=== PATIENT | female | born 1960 | race Caucasian/White ===

== ENCOUNTER 2016-07-03 17:37 | Emergency (ER) | payer OTHER ==
[~2016-07-03] VITALS: Wt 104.0 kg
[~2016-07-03 17:37] MED LIST: ERGO500014 PO; FURO80TA3 PO; GABA300C16 PO; HYDR-902 PO; INSU100C SQ; LANT3I SC; LOPE2CAP PO; ONDA4TAB14 PO; PANT20TA3 PO; SODI650T PO
[2016-07-03] MEDS ORDERED: HYDROmorphONE 1 MG/ML SYG IV STA (20:04)
[2016-07-03 20:43] LABS: ADD SCAN DIFF NO
[2016-07-03 20:46] LABS: BASOPHILS % 0.2 % (0.0-2.0); EOSINOPHILS # 0.2 10^3/ul (0.0-0.5); HEMATOCRIT 30.7 % (37.0-47.0); HEMOGLOBIN 10.2 g/dl (12.0-16.0); LYMPHOCYTES # 1.7 10^3/ul (0.8-2.9); MEAN CORPUSCULAR HEMOGLOBIN 33.9 pg (29.0-33.0); MEAN CORPUSCULAR HGB CONC 33.2 g/dl (32.0-37.0); MEAN PLATELET VOLUME 10.4 fl (7.4-10.4); MONOCYTE # 0.4 10^3/ul (0.3-0.9); MONOCYTES % 7.2 % (0.0-11.0); NEUTROPHIL # 3.4 10^3/ul (1.6-7.5); NEUTROPHILS % 58.4 % (39.0-77.0); PLATELET COUNT 231 10^3/UL (140-415); RED BLOOD COUNT 3.01 10^6/ul (4.20-5.40); RED CELL DISTRIBUTION WIDTH 14.5 % (11.5-14.5); WHITE BLOOD COUNT 5.7 10^3/ul (4.8-10.8)
[2016-07-03 20:56] LABS: POTASSIUM 4.7 mmol/L (3.5-5.1)
[2016-07-03 20:58] LABS: CREATININE 5.86 mg/dl (0.44-1.00)
[2016-07-03 20:59] LABS: CALCIUM 8.5 mg/dl (8.4-10.2)
[2016-07-03] MEDS ORDERED: ALPR0.254 PO (21:18)
[2016-07-03] MEDS ORDERED: ASPI-664 PO (21:18)
[2016-07-03] MEDS ORDERED: SEVE800T7 PO (21:18)
[2016-07-03] MEDS ORDERED: CALC0.255 PO (21:19)
[2016-07-03] MEDS ORDERED: AMLO-147 PO (21:19)
[2016-07-03] MEDS ORDERED: ATOR40TA68 PO (21:20)
[2016-07-03] MEDS ORDERED: OMEP20CA16 PO (21:20)
[2016-07-03] MEDS ORDERED: NAPR220C2 PO (21:21)
[2016-07-03] MEDS ORDERED: OMEG500C3 PO (21:22)
[2016-07-03 21:27] LABS: ADD UMIC YES; URINE BILIRUBIN (Dip) NEGATIVE (NEGATIVE); URINE BLOOD (Dip) 1+ (NEGATIVE); URINE COLOR LT. YELLOW (YELLOW); URINE KETONES (Dip) TRACE (NEGATIVE); URINE LEUKOCYTE ESTERASE (Dip) NEGATIVE (NEGATIVE); URINE NITRITE (Dip) NEGATIVE (NEGATIVE); URINE TOTAL PROTEIN (Dip) 4+ (NEGATIVE); URINE UROBILINOGEN (Dip) 0.2 E.U./dL (0.1-1.0)
[2016-07-03 21:37] LABS: BACTERIA,URINE RARE; SQUAMOUS EPITHELIAL CELL,UR RARE
[2016-07-03] MEDS ORDERED: OXYCODONE/ACETAMINOPHEN (10/325) TAB PO ONE (22:00)
--- NOTE | 2016-07-03 22:08 | RADRPT ---
PROCEDURE: CT thoracic spine without contrast. CLINICAL INDICATION: Severe low back pain with sciatica. TECHNIQUE: CT of the thoracic spine was performed. Axial images were obtained and reformatted at 2.5 mm slice thickness. Coronal and sagittal images were reformatted. Exam CTDIvol = 32.21 mGy and DLP = 1203.25 mGy-cm. COMPARISON: None available. FINDINGS: Vertebral bodies: Slight demineralization is concerning for osteopenia. There is minimal biconcave appearance of the T8 and T9 vertebral body suggesting chronic compression deformities, loss of axia l height estimated 10% without bone retropulsion. The thoracic kyphosis is preserved. No lytic or blastic lesions are present. Visualized cervical spine demonstrate severe degenerative disk disease and spondylosis at C5-6 and C6-7 Thoracic spinal cord: No abnormal densities seen within the spinal canal.. T1-2: No discogenic abnormality of significance is seen and there is no central canal or foraminal s tenosis. Mild left facet arthropathy is present the right facet joint is unremarkable. T2-3: No discogenic abnormality of significance is seen and there is no central canal or foraminal s tenosis. The facet joints are intact. T3-4: No discogenic abnormality of significance is seen and there is no central canal or foraminal stenosis. The facet joints are intact. T4-5: No discogenic abnormality of significance is seen. There is mild facet arthropathy with righ t-sided vacuum facet phenomenon but no central canal or foraminal stenosis. T5-6: No discogenic abnormality of significance is seen. There is moderate right greater than left facet arthropathy but no central canal or foraminal stenosis T6-7: No discogenic abnormality of significance is seen there is no central canal stenosis. Severe right and moderate left facet arthropathy is present. T7-8: No discogenic abnormality of significance is seen. There is moderate to severe bilateral facet arthropathy but no central canal or foraminal stenosis T8-9: Vacuum disk phenomenon without evidence of disk bulge or protrusion. Moderate to severe bilat eral facet arthropathy is present. There is no significant central canal or foraminal stenosis T9-10: Mild loss of disk stature without disk protrusion or bulge. Severe bilateral facet arthropa thy is present. There is no significant central canal or foraminal stenosis T10-11: No discogenic abnormality of significance is seen. There is moderate bilateral facet arthro geoffrey but no central canal or foraminal stenosis T11-12: Vacuum disk phenomenon with mild loss of disk stature and a broad-based disk larger than os teophyte complex of approximately 3 mm. There is minimal facet arthropathy but no central canal or foraminal stenosis T12-L1: No discogenic abnormality of significance is seen and there is no facet arthropathy, centra l canal or foraminal stenosis Non spine related findings: No abnormalities of significance are demonstrated. RPTAT:HJJR IMPRESSION: 1. Demineralization unable to exclude osteopenia. 2. Subtle biconcave appearance to T8 and T9 vertebral bodies suggests minimal chronic compression d eformities of 10% without bone retropulsion or compromise of the central canal. 3. Degenerative disk disease greatest at T11-12 with a small osteophyte and disk complex not causin g significant central canal stenosis. 4. No significant central stenosis is seen at any level. 5. Multilevel facet arthropathy most pronounced at T6-7. Physician Angelica Date Time Electronically viewed and signed by Physician Angelica on 07/03/2016 22:08 /
--- NOTE | 2016-07-03 22:17 | RADRPT ---
PROCEDURE: CT Lumbar Spine without contrast. CLINICAL INDICATION: Severe low back pain with sciatica. TECHNIQUE: CT of the lumbar spine without contrast was performed. Axial images were obtained thro [facility] the lumbar spine and reformatted at 2.5 mm slice thickness. Coronal and sagittal images were ref ormatted. The CTDIvol = 30.49 mGy and DLP = 1097.58 mGy-cm. COMPARISON: None available FINDINGS: Vertebral bodies: Demineralization is concerning for osteopenia. A mild dextroscoliosis of 10 degre es with the apex at L4 is noted. Spondylolytic grade 1 spondylolisthesis of 5 relative to S1 is pre sent. Conus medularis region: Normal in attenuation and termination estimated at the L1 level. L1-L2: No discogenic abnormality of significance is seen, mild anterior right spondylosis is present . There is no facet arthropathy. The ligamentum flava are normal in thickness. The central canal is patent. There is no evidence for foraminal stenosis. L2-L3: No discogenic abnormality of significance is seen, mild anterior spondylosis is present. Ther e is no facet arthropathy. The ligamentum flava are normal in thickness. The central canal is paten t. There is no evidence for foraminal stenosis. L3-L4: Vacuum disk phenomenon is present with moderate degenerative disk narrowing and a circumferen tial disk and osteophyte complex measuring up to 7 mm eccentric to the left and in a left lateral lo cation. Endplate degenerative subcortical cyst formation is demonstrated in the inferior L3 and supe rior L4 regions There is no facet arthropathy. Mild ligamentum flavum hypertrophy of 4 mm is present . The central canal is patent. Mild bilateral foraminal stenosis is seen. L4-L5: Vacuum disk phenomenon without loss of disk stature and 4 mm of annular disk bulging asymmetr ic to the left extending into the left foramen. There is associated lucency likely degenerative sub cortical cyst formation or possibly a Schmorl's nodes involving the superior left L5 greater than in ferior left L4 regions. There is mild bilateral facet arthropathy. The ligamentum flava are mildly i ncreased in thickness measuring 5 mm. The central canal is patent. The disk material causes severe left and moderate to severe right foraminal stenosis. L5-S1: Vacuum disk phenomenon with moderate to severe loss of disk stature and disk material extendi ng into the foramina bilaterally. L5 spondylolysis is present without pseudoarthrosis. There is min imal bilateral facet arthropathy. Mild 4 mm ligamentum flavum hypertrophy is identified. The centra l canal is patent. Disk material extends into the foramina causing severe bilateral foraminal steno sis. Sacrum and sacroiliac joints: Mild vacuum phenomenon of the right greater than left joints is presen t. Otherwise unremarkable. None spine related findings: Atherosclerotic calcification of the abdominal aorta is identified. RPTAT:HJJR IMPRESSION: 1. Spondylolysis at L5, pars interarticularis defects, with associated grade 1 anterolisthesis and degenerative disk disease contributing to severe bilateral foraminal stenosis without central canal narrowing. 2. Vacuum disk phenomenon with degenerative disk narrowing asymmetric to the left at L4-5, endplate degenerative changes likely subcortical cyst formation, with disk material causing severe left grea ter than right L4-5 foraminal stenosis without central canal narrowing. 3. Vacuum phenomenon and disk narrowing with asymmetric left osteophyte and disk complex at L3-4 ca using mild bilateral foraminal stenosis and with a left lateral L3-4 disk complex. There is no cent ral canal stenosis at this level. 4. Aortic atherosclerosis is present. Physician Angelica Date Time Electronically viewed and signed by Physician Angelica on 07/03/2016 22:17 /
[2016-07-03] MEDS ORDERED: OXYC-279 PO (22:57)
[2016-07-03] MEDS ORDERED: SILVER SULFADIAZINE 1% 25 GM CR TOP ONE (23:00)
--- NOTE | 2016-07-04 00:50 | ERD ---
ER Documentation Chief Complaint Date/Time DATE: 07/04/16 TIME: 00:44 Chief Complaint LEFT SIDE BUTTOCK PAIN AFTER A FALL 3 WKS. WORSE AT DIALYSIS TODAY. HPI 55-year-old female with a history of diabetes, chronic kidney disease on dialysis, and chronic low back pain presenting with worsening of her low back pain. She states that her pain has been worsening over the past 2 months but more significantly over the past week. She is seen by chronic pain physician but does not have an appointment until July 31. The medication that when she was given has not been helping her so she has not been taking it. She denies any recent trauma to me, however she did note in triage that she fell on her butt about 3 weeks ago. She endorses associated pain in her left buttock that radiates down the back of her left leg. She has no new numbness, tingling, or weakness. Her back pain is a 10 out of 10, stabbing. No change in urinary or bowel habits. She has difficulty walking secondary to the pain but is able to walk. ROS All systems reviewed and are negative except as per history of present illness. Medications Home Meds Active Scripts Oxycodone HCl/Acetaminophen (Percocet 5-325 mg Tablet) 1 Each Tablet, 1 EACH PO Q6 Y for SEVERE PAIN LEVEL 7-10, #15 TAB Prov:JAMES BURKETT MD 07/03/16 Reported Medications [place]-3 Fatty Acids (Fish Oil) Unknown Strength Capsule, 1 TAB PO DAILY, CAP 07/03/16 Naproxen* (Aleve*) 220 Mg Capsule, 220 MG PO NEEDED Y for PRN, #60 CAP 07/03/16 Omeprazole* (Omeprazole*) 20 Mg Capsule.dr, 20 MG PO DAILY, #30 CAP 07/03/16 Atorvastatin* (Atorvastatin*) 40 Mg Tablet, 40 MG PO QHS, #30 TAB 07/03/16 Calcitriol* (Rocaltrol*) 0.25 Mcg Capsule, 0.25 MCG PO DAILY, CAP 07/03/16 Amlodipine Besylate* (Amlodipine Besylate*) 10 Mg Tablet, 10 MG PO DAILY, #30 TAB 07/03/16 Aspirin* (Aspirin* EC) 81 Mg Tablet., 81 MG PO DAILY, TAB 07/03/16 Sevelamer Carbonate* (Renvela*) 800 Mg Tablet, 0.8 GM PO WITH MEALS, TAB 07/03/16 Alprazolam* (Alprazolam*) 0.25 Mg Tablet, 0.25 MG PO TID Y for ANXIETY, TAB 07/03/16 Discontinued Reported Medications Hydrocodone/Acetaminophen ([place] 10-325 Tablet) 1 Each Tablet, 1 EACH PO Q4 Y for PRN, TAB 12/27/15 Sodium Bicarbonate* (Sodium Bicarbonate*) 650 Mg Tablet, 1300 MG PO TID, TAB 12/27/15 Pantoprazole* (Pantoprazole*) 20 Mg Tablet.dr, 40 MG PO DAILY, TAB 12/27/15 Insulin Lispro (Humalog) 100 Unit/1 Ml Cartridge, 5 UNIT SQ BEFORE MEALS TID 12/27/15 Insulin Glargine* (Lantus*) 100 Unit/Ml Soln, 5 UNIT SC QHS, #1 VIAL 12/27/15 Gabapentin* (Gabapentin*) 300 Mg Capsule, 300 MG PO TID, #90 CAP 12/27/15 Furosemide* (Furosemide*) 80 Mg Tablet, 80 MG PO BID, #60 TAB 12/27/15 Ergocalciferol* (Drisdol* (Vitamin D2)) 50,000 Unit Capsule, 64197 UNIT PO Q7D, CAP 12/27/15 Discontinued Scripts Loperamide Hcl* (Imodium*) 2 Mg Capsule, 2 MG PO QID Y for DIARRHEA, #20 CAP MAX 16 mg/day Prov:BHAVNA GUZMAN MD 12/27/15 Ondansetron (Ondansetron Odt) 4 Mg Tab.rapdis, 4 MG PO Q6H Y for NAUSEA AND/OR VOMITING, #10 TAB Prov:BHAVNA GUZMAN MD 12/27/15 Allergies Allergies: Coded Allergies: No Known Allergies (Verified Allergy, Unknown, 07/03/16) PMhx/Soc History of Surgery: Yes (BYPASS LT LEG,RT TOES X 2 AMPUTATION,RT UPPER ARM SURGERY,RT OVARY REMOVED) Anesthesia Reaction: No Hx Neurological Disorder: No Hx Respiratory Disorders: No Hx Cardiac Disorders: Yes (HTN,PVD,ANEMIA) Hx Psychiatric Problems: Yes (DEPRESSION) Hx Miscellaneous Medical Probl: Yes (PERIPHERAL NEUROPATHY, PERMCATH PLACEMENT RT CHEST,KIRSTEN AVF PLACEMENT) Hx Alcohol Use: No Hx Substance Use: No Hx Tobacco Use: Yes (QUIT ) Smoking Status: Former smoker FmHx Family History: No diabetes Physical Exam Vitals Vital Signs Date Time Temp Pulse Resp B/P Pulse Ox O2 Delivery O2 Flow Rate FiO2 07/03/16 17:55 97.0 76 18 206/89 96 Physical Exam Const: Appears to be in distress secondary to pain, tearful, nontoxic Head: Atraumatic Eyes: Normal Conjunctiva ENT: Normal External Ears, Nose and Mouth. Neck: Full range of motion. No C-spine tenderness to palpation. No meningismus. Resp: Clear to auscultation bilaterally Cardio: Regular rate and rhythm, no murmurs Abd: Soft, non tender, non distended. Normal bowel sounds Skin: No petechiae or rashes Back: No thoracic spine tenderness, lumbar spine tender to palpation diffusely in the midline, with some left paraspinal muscle tenderness and left buttock tenderness. Positive straight leg raise on the left. Ext: No cyanosis, or edema Neur: Awake and alert and oriented 3, strength intact in all 4 extremities, sensations diminished in bilateral feet, chronic for the patient Psych: Normal Mood and Affect Result Diagram: 07/03/16203907/03/162039 Results 24 hrs Laboratory Tests Test 07/03/16 20:40 07/03/16 21:10 White Blood Count 5.710^3/ul Red Blood Count 3.0110^6/ul Hemoglobin 10.2g/dl Hematocrit 30.7% Mean Corpuscular Volume 102.0fl Mean Corpuscular Hemoglobin 33.9pg Mean Corpuscular Hemoglobin Concent 33.2g/dl Red Cell Distribution Width 14.5% Platelet Count 11000^3/UL Mean Platelet Volume 10.4fl Neutrophils % 58.4% Lymphocytes % 30.0% Monocytes % 7.2% Eosinophils % 4.0% Basophils % 0.2% Nucleated Red Blood Cells % 0.0/100WBC Neutrophils # 3.410^3/ul Lymphocytes # 1.710^3/ul Monocytes # 0.410^3/ul Eosinophils # 0.210^3/ul Basophils # 0.010^3/ul Nucleated Red Blood Cells # 0.010^3/ul Sodium Level 140mmol/L Potassium Level 4.7mmol/L Chloride Level 105mmol/L Carbon Dioxide Level 24mmol/L Anion Gap 16 Blood Urea Nitrogen 43mg/dl Creatinine 5.86mg/dl Glucose Level 265mg/dl Calcium Level 8.5mg/dl Lipase 307U/L Urine Color LT. YELLOW Urine Clarity CLEAR Urine pH 7.5 Urine Specific [place] 1.015 Urine Ketones TRACE Urine Nitrite NEGATIVE Urine Bilirubin NEGATIVE Urine Urobilinogen 0.2 E.U./dL Urine Leukocyte Esterase NEGATIVE Urine Microscopic RBC 2-5/HPF Urine Microscopic WBC 0-2/HPF Urine Squamous Epithelial Cells RARE Urine Bacteria RARE Urine Hemoglobin 1+ Urine Glucose 0.5%% Urine Total Protein 4+ Current Medications Medications (Trade) Dose Ordered Sig/Kayla Route PRN Reason Start Time Stop Time Status Last Admin Dose Admin Hydromorphone HCl (Dilaudid) 1 mg ONCE STAT IV 07/03/16 20:04 07/03/16 20:06 DC 07/03/16 20:26 Oxycodone/ Acetaminophen (Endocet (10/ 325)) 1 tab ONCE ONCE PO 07/03/16 22:00 07/03/16 22:01 DC 07/03/16 22:05 Silver Sulfadiazine (Thermazene 1% 25 Gm) 1 applic ONCE ONCE TOP 07/03/16 23:00 07/03/16 23:01 DC Procedures/MDM EMERGENT LABS AND DIAGNOSTIC STUDIES: Lab Results above were reviewed and interpreted by me. CBC shows anemia CMP is consistent with her CKD and hyperglycemia consistent with her diabetes Urinalysis did not show acute infection Radiology Results as interpreted by Radiology below were reviewed by Aneesh Burkett MD: CT thoracic and lumbar spine: IMPRESSION: 1. Demineralization unable to exclude osteopenia. 2. Subtle biconcave appearance to T8 and T9 vertebral bodies suggests minimal chronic compression deformities of 10% without bone retropulsion or compromise of the central canal. 3. Degenerative disk disease greatest at T11-12 with a small osteophyte and disk complex not causing significant central canal stenosis. 4. No significant central stenosis is seen at any level. 5. Multilevel facet arthropathy most pronounced at T6-7. IMPRESSION: 1. Spondylolysis at L5, pars interarticularis defects, with associated grade 1 anterolisthesis and degenerative disk disease contributing to severe bilateral foraminal stenosis without central canal narrowing. 2. Vacuum disk phenomenon with degenerative disk narrowing asymmetric to the left at L4-5, endplate degenerative changes likely subcortical cyst formation, with disk material causing severe left greater than right L4-5 foraminal stenosis without central canal narrowing. 3. Vacuum phenomenon and disk narrowing with asymmetric left osteophyte and disk complex at L3-4 causing mild bilateral foraminal stenosis and with a left lateral L3-4 disk complex. There is no central canal stenosis at this level. 4. Aortic atherosclerosis is present. Physician Angelica Date Time Electronically viewed and signed by Physician Angelica on 07/03/2016 22:17 Initial Nursing notes reviewed. Previous Medical Records requested via the Electronic Health Record. EMERGENCY DEPARTMENT COURSE / MEDICAL DECISION MAKING: The patient is presenting with acute on chronic low back pain with left sciatica. Vitals are notable for uncontrolled hypertension, however there does not appear to be any evidence of hypertensive emergency. Dilaudid IV was given for pain with some relief of her symptoms to a tolerable level. A CT of the thoracic and lumbar spine were done to evaluate for any acute fractures and did not show any acute abnormalities. Her CT did show multilevel lumbar degenerative disc disease, which I discussed with the patient. I agreed to discharge her with a few days worth of Percocet, however I told her that she needs to follow-up with her pain management doctor for any further prescriptions. The patient was able to ambulate with her walker with no difficulty. Her pain was so present but controlled. Patient was discharged in a stable condition. The patient was counseled about the risks of hypertension and urged to pursue outpatient monitoring and therapy within a week with their primary care physician. Departure Diagnosis: Primary Impression: Acute exacerbation of chronic low back pain Additional Impressions: Lumbar degenerative disc disease Sciatica Laterality: left Qualified Code: M54.32 - Sciatica of left side Condition: Stable Patient Instructions: Chronic Pain, Back Pain W/ Sciatica JAMES BURKETT MD Jul 04, 2016 00:50
== END 2016-07-03 23:47 | disposition home or self-care (01) ==
LOC: E/R 17:37
DX: J45.901 Unspecified asthma with (acute) exacerbation (principal); M51.36 Other intervertebral disc degeneration, lumbar region; M54.32 Sciatica, left side; I12.0 Hypertensive chronic kidney disease with stage 5 chronic kidney disease or end stage renal disease; N18.6 End stage renal disease; E11.9 Type 2 diabetes mellitus without complications; W19.XXXA Unspecified fall, initial encounter; Z99.2 Dependence on renal dialysis; Z87.891 Personal history of nicotine dependence; Z79.82 Long term (current) use of aspirin; Z79.4 Long term (current) use of insulin
CPT/HCPCS: 72128; 72131; 80048; 81001; 81003; 83690; 85025; J1170; Z7610; 96374

== ENCOUNTER 2016-10-25 21:05 | Emergency (ER) | payer OTHER ==
[~2016-10-25] VITALS: Ht 167.6 cm; Wt 105.0 kg
[~2016-10-25 21:05] MED LIST changes: +ALPR0.254 PO; +AMLO-147 PO; +ASPI-664 PO; +ATOR40TA68 PO; +CALC0.255 PO; -ERGO500014 PO; -FURO80TA3 PO; -GABA300C16 PO; -HYDR-902 PO; -INSU100C SQ; -LANT3I SC; -LOPE2CAP PO; +NAPR220C2 PO; +OMEG500C3 PO; +OMEP20CA16 PO; -ONDA4TAB14 PO; +OXYC-279 PO; -PANT20TA3 PO; +SEVE800T7 PO; -SODI650T PO
[2016-10-25 21:10] VITALS: Ht 167.6 cm; Wt 105.0 kg
[2016-10-25] MEDS ORDERED: HYDROmorphONE 1 MG/ML SYG IV STA (21:22)
[2016-10-25] MEDS ORDERED: CEFEPIME 2GM/50 ML (PMX) 50 ML IVPB STA (21:22)
[2016-10-25] MEDS ORDERED: ONDANSETRON 4 MG INJ IV STA (21:22)
[2016-10-25] MEDS ORDERED: ACETAMINOPHEN 325 MG TAB PO STA (21:22)
[2016-10-25] MEDS ORDERED: SOD CHLORIDE 0.9% 1,000 ML IV STA (21:22)
[2016-10-25] MEDS ORDERED: VANCOMYCIN 1 GM (PMX) 250 ML IVPB ONE (21:30)
[2016-10-25 22:08] LABS: ABNORMAL IP MESSAGE 1; BASOPHILS % 0.4 % (0.0-2.0); EOSINOPHILS # 0.1 10^3/ul (0.0-0.5); EOSINOPHILS % 2.3 % (0.0-7.0); HEMATOCRIT 27.5 % (37.0-47.0); HEMOGLOBIN 8.8 g/dl (12.0-16.0); LYMPHOCYTES # 0.6 10^3/ul (0.8-2.9); LYMPHOCYTES % 12.2 % (15.0-51.0); MEAN CORPUSCULAR HEMOGLOBIN 32.4 pg (29.0-33.0); MEAN CORPUSCULAR VOLUME 101.1 fl (82.0-101.0); MEAN PLATELET VOLUME 11.3 fl (7.4-10.4); MONOCYTE # 0.5 10^3/ul (0.3-0.9); MONOCYTES % 9.3 % (0.0-11.0); NEUTROPHIL # 3.7 10^3/ul (1.6-7.5); NEUTROPHILS % 75.6 % (39.0-77.0); PLATELET COUNT 180 10^3/UL (140-415); RED BLOOD COUNT 2.72 10^6/ul (4.20-5.40); RED CELL DISTRIBUTION WIDTH 13.4 % (11.5-14.5); WHITE BLOOD COUNT 4.9 10^3/ul (4.8-10.8)
[2016-10-25 22:13] LABS: POSITIVE DIFF @See below
[2016-10-25 22:30] LABS: ALANINE AMINOTRANSFERASE 36 IU/L (13-69); ALBUMIN 3.5 g/dl (3.3-4.9); ALBUMIN/GLOBULIN RATIO 1.34; ALKALINE PHOSPHATASE 115 IU/L (42-121); ANION GAP 13 (8-16); ASPARTATE AMINO TRANSFERASE 22 IU/L (15-46); BILIRUBIN,INDIRECT 0.2 mg/dl (0-1.1); BILIRUBIN,TOTAL 0.2 mg/dl (0.2-1.3); BLOOD UREA NITROGEN 30 mg/dl (7-20); CALCIUM 8.6 mg/dl (8.4-10.2); CARBON DIOXIDE 29 mmol/L (21-31); CHLORIDE 98 mmol/L (97-110); CREATININE 3.16 mg/dl (0.44-1.00); GLUCOSE 191 mg/dl (70-220); POTASSIUM 4.4 mmol/L (3.5-5.1); SODIUM 136 mmol/L (135-144); TOTAL PROTEIN 6.1 g/dl (6.1-8.1)
[2016-10-25 22:40] LABS: TROPONIN-I < 0.012 ng/ml (0.00-0.12)
--- NOTE | 2016-10-25 22:49 | ERA ---
ER Documentation Chief Complaint Date/Time DATE: 10/25/16 TIME: 22:48 Chief Complaint gen. weakness, joint/body pain since finished dialysis HPI This a 56-year-old dialysis patient who states that she feels like she is getting a line sepsis again. The patient states that she has general body aches and malaise and fatigue after finishing dialysis today. She said she started to feel the symptoms about an hour before starting dialysis and she feels much worse now. She says she was admitted here several weeks ago for 5 days for an infection in her line in her right chest. The lung was not removed. She says that she has no chest pain shortness of breath cough sore throat abdominal pain vomiting diarrhea. ROS All systems reviewed and are negative except as per history of present illness. Medications Home Meds Active Scripts Hydrocodone/Acetaminophen ([place] 5-325 Tablet) 1 Each Tablet, 1 TAB PO Q6H Y for PAIN, #20 TAB Prov:CASANDRA VIRGEN DO 10/26/16 Oxycodone HCl/Acetaminophen (Percocet 5-325 mg Tablet) 1 Each Tablet, 1 EACH PO Q6 Y for SEVERE PAIN LEVEL 7-10, #15 TAB Prov:JAMES JULIEN MD 07/03/16 Reported Medications [place]-3 Fatty Acids (Fish Oil) Unknown Strength Capsule, 1 TAB PO DAILY, CAP 07/03/16 Naproxen* (Aleve*) 220 Mg Capsule, 220 MG PO NEEDED Y for PRN, #60 CAP 07/03/16 Omeprazole* (Omeprazole*) 20 Mg Capsule.dr, 20 MG PO DAILY, #30 CAP 07/03/16 Atorvastatin* (Atorvastatin*) 40 Mg Tablet, 40 MG PO QHS, #30 TAB 07/03/16 Calcitriol* (Rocaltrol*) 0.25 Mcg Capsule, 0.25 MCG PO DAILY, CAP 07/03/16 Amlodipine Besylate* (Amlodipine Besylate*) 10 Mg Tablet, 10 MG PO DAILY, #30 TAB 07/03/16 Aspirin* (Aspirin* EC) 81 Mg Tablet.dr, 81 MG PO DAILY, TAB 07/03/16 Sevelamer Carbonate* (Renvela*) 800 Mg Tablet, 0.8 GM PO WITH MEALS, TAB 07/03/16 Alprazolam* (Alprazolam*) 0.25 Mg Tablet, 0.25 MG PO TID Y for ANXIETY, TAB 07/03/16 Allergies Allergies: Coded Allergies: No Known Allergies (Verified Allergy, Unknown, 07/03/16) PMhx/Soc History of Surgery: Yes (BYPASS LT LEG,RT TOES X 2 AMPUTATION,RT UPPER ARM SURGERY,RT OVARY REMOVED) Anesthesia Reaction: No Hx Neurological Disorder: No Hx Respiratory Disorders: No Hx Cardiac Disorders: Yes (HTN,PVD,ANEMIA) Hx Psychiatric Problems: Yes (DEPRESSION) Hx Miscellaneous Medical Probl: Yes (PERIPHERAL NEUROPATHY, PERMCATH PLACEMENT RT CHEST,KIRSTEN AVF PLACEMENT) Hx Alcohol Use: No Hx Substance Use: No Hx Tobacco Use: Yes (QUIT ) Smoking Status: Former smoker FmHx Family History: No coronary disease Physical Exam Vitals Vital Signs Date Time Temp Pulse Resp B/P Pulse Ox O2 Delivery O2 Flow Rate FiO2 10/26/16 00:15 78 16 138/72 99 Room Air 10/25/16 22:24 69 16 149/69 97 Room Air 10/25/16 21:10 99.0 76 20 149/69 96 Physical Exam Const: Well-developed, well-nourished Head: Atraumatic, normocephalic Eyes: Normal Conjunctiva, PERRLA, EOMI, normal sclera, no nystagmus ENT: Normal External Ears, Nose and Mouth, moist mucus membranes. Neck: Full range of motion. No meningismus, no lymphadenopathy. Resp: Clear to auscultation bilaterally, no wheezing, rhonchi, rales, right Port-A-Cath appears intact Cardio: Regular rate and rhythm, no murmurs, S1 S2 present Abd: Soft, non tender x 4, non distended. Normal bowel sounds, no guarding or rebound, no pulsitile abdominal masses or bruits Skin: No petechiae or rashes, no ecchymosis , no maculopapular rash Back: No midline or flank tenderness Ext: No cyanosis, or edema, FROM x 4, normal inspection, neurovascularly intact x 4 Neur: Awake and alert, STR 5/5 x 4, sensation intact x 4, no focal findings, cerebellum intact Psych: Normal Mood and Affect Result Diagram: 10/25/16212910/25/162129 Results 24 hrs Laboratory Tests Test 10/25/16 21:30 10/25/16 23:13 White Blood Count 4.910^3/ul Red Blood Count 2.7210^6/ul Hemoglobin 8.8g/dl Hematocrit 27.5% Mean Corpuscular Volume 101.1fl Mean Corpuscular Hemoglobin 32.4pg Mean Corpuscular Hemoglobin Concent 32.0g/dl Red Cell Distribution Width 13.4% Platelet Count 15061^3/UL Mean Platelet Volume 11.3fl Neutrophils % 75.6% Lymphocytes % 12.2% Monocytes % 9.3% Eosinophils % 2.3% Basophils % 0.4% Nucleated Red Blood Cells % 0.0/100WBC Neutrophils # 3.710^3/ul Lymphocytes # 0.610^3/ul Monocytes # 0.510^3/ul Eosinophils # 0.110^3/ul Basophils # 0.010^3/ul Nucleated Red Blood Cells # 0.010^3/ul Sodium Level 136mmol/L Potassium Level 4.4mmol/L Chloride Level 98mmol/L Carbon Dioxide Level 29mmol/L Anion Gap 13 Blood Urea Nitrogen 30mg/dl Creatinine 3.16mg/dl Glucose Level 191mg/dl Lactic Acid Level 1.0mmol/L 0.8mmol/L Calcium Level 8.6mg/dl Total Bilirubin 0.2mg/dl Direct Bilirubin 0.00mg/dl Indirect Bilirubin 0.2mg/dl Aspartate Amino Transf (AST/SGOT) 22IU/L Alanine Aminotransferase (ALT/SGPT) 36IU/L Alkaline Phosphatase 115IU/L Troponin I < 0.012ng/ml Total Protein 6.1g/dl Albumin 3.5g/dl Globulin 2.60g/dl Albumin/Globulin Ratio 1.34 Current Medications Medications (Trade) Dose Ordered Sig/Kayla Route PRN Reason Start Time Stop Time Status Last Admin Dose Admin Acetaminophen 650 mg 650 mg ONCE STAT PO 10/25/16 21:22 10/25/16 21:25 DC 10/25/16 22:23 Cefepime HCl 50 ml @ 100 mls/hr ONCE STAT IVPB 10/25/16 21:22 10/25/16 21:51 DC 10/25/16 22:23 Vancomycin HCl 250 ml @ 125 mls/hr ONCE ONCE IVPB 10/25/16 21:30 10/25/16 23:29 DC 10/25/16 22:55 Sodium Chloride (NS) 1,000 ml @ 1,000 mls/hr Q1H STAT IV 10/25/16 21:22 10/25/16 22:21 DC 10/25/16 22:23 Hydromorphone HCl (Dilaudid) 1 mg ONCE STAT IV 10/25/16 21:22 10/25/16 21:26 DC 10/25/16 21:49 Ondansetron HCl (Zofran Inj) 4 mg ONCE STAT IV 10/25/16 21:22 10/25/16 21:26 DC 10/25/16 21:49 Procedures/MDM PROCEDURE: CHEST - 1 VIEW CLINICAL INDICATION: 56-year-old female with shortness of breath and sepsis. TECHNIQUE: A single frontal AP upright portable view of the chest was performed. The images were reviewed on a PACS workstation. COMPARISON: Chest x-ray December 27, 2015. FINDINGS: There is a right-sided internal jugular tunneled hemodialysis catheter the tip at the cavoatrial junction The cardiomediastinal silhouette is within normal limits. The thoracic aortic arch is mildly calcified. There is mild pulmonary vascular congestion/volume overload. There is no evidence for focal infiltrate. There is no evidence for pneumothorax. There is a plate and screws within the proximal right humerus from prior ORIF. IMPRESSION: 1. Right internal jugular tunneled hemodialysis catheter with the tip at the cavoatrial junction region. 2. No evidence for active cardiopulmonary disease. 3. Calcified thoracic aortic arch. 4. Mild pulmonary vascular congestion/volume overload. 5. Proximal right humerus ORIF. .Johnny Harrison MD, Date Time Electronically viewed and signed by .Johnny Harrison MD, on 10/25/2016 23:51 .M/ CC: CASANDRA VIRGEN DO Patient's lactic acids are negative 2. I feel she has a viral illness. She has a negative chest x-ray white blood count is normal. She has malaise body aches which I just think is viral and not a line sepsis issue. Told her to go home and take some [place] and rest also stated that she needs to see how she does over the next 24 hours and return if she gets worse Departure Diagnosis: Primary Impression: Viral illness Condition: Stable CASANDRA VIRGEN DO Oct 25, 2016 22:49
--- NOTE | 2016-10-25 23:51 | RADRPT ---
PROCEDURE: CHEST - 1 VIEW CLINICAL INDICATION: 56-year-old female with shortness of breath and sepsis. TECHNIQUE: A single frontal AP upright portable view of the chest was performed. The images were reviewed on a PACS workstation. COMPARISON: Chest x-ray December 27, 2015. FINDINGS: There is a right-sided internal jugular tunneled hemodialysis catheter the tip at the cavoatrial afshin ction The cardiomediastinal silhouette is within normal limits. The thoracic aortic arch is mildly c alcified. There is mild pulmonary vascular congestion/volume overload. There is no evidence for fo randolph infiltrate. There is no evidence for pneumothorax. There is a plate and screws within the proxim al right humerus from prior ORIF. IMPRESSION: 1. Right internal jugular tunneled hemodialysis catheter with the tip at the cavoatrial junction re gion. 2. No evidence for active cardiopulmonary disease. 3. Calcified thoracic aortic arch. 4. Mild pulmonary vascular congestion/volume overload. 5. Proximal right humerus ORIF. .Johnny Harrison MD, MD Date Time Electronically viewed and signed by .Johnny Harrison MD, on 10/25/2016 23:51 .M/
[2016-10-26] MEDS ORDERED: HYDR-906 PO (01:16)
[2016-10-26 01:45] VITALS: BP 140/75; PULSE 65; RESP 22; TEMP 98.7
== END 2016-10-26 01:48 | disposition home or self-care (01) ==
LOC: E/R 21:05
DX: B34.9 Viral infection, unspecified (principal); R40.2252 Coma scale, best verbal response, oriented, at arrival to emergency department; I10 Essential (primary) hypertension; R40.2142 Coma scale, eyes open, spontaneous, at arrival to emergency department; R40.2362 Coma scale, best motor response, obeys commands, at arrival to emergency department; Z79.82 Long term (current) use of aspirin; Z87.891 Personal history of nicotine dependence
CPT/HCPCS: 36415; 71010; 80053; 83605; 84484; 85025; 87040; 96374; 96375; J0692; J1170; J2405; J3370; J7030; Z7502; Z7610

== ENCOUNTER 2016-11-13 16:50 | Inpatient (IN) | payer OTHER ==
[2016-11-13] VITALS (8 sets, daily range): BP systolic 151–181; BP diastolic 70–84; PULSE 70–76; RESP 18; TEMP 98; Ht 162.6 cm; Wt 105.0 kg
[~2016-11-13] VITALS: Ht 162.6 cm; Wt 105.0 kg
[~2016-11-13 16:50] MED LIST changes: +HYDR-906 PO
[2016-11-13] MEDS ORDERED: KETOROLAC 15 MG INJ IV STA (17:47)
[2016-11-13] MEDS ORDERED: PIPER-TAZO 3.375 GM IV (PMX) 100 ML IVPB ONE (18:00)
[2016-11-13] MEDS ORDERED: VANCOMYCIN 1 GM (PMX) 250 ML IVPB SCH (18:00)
[2016-11-13 18:09] LABS: BASOPHILS % 0.2 % (0.0-2.0); EOSINOPHILS # 0.2 10^3/ul (0.0-0.5); EOSINOPHILS % 3.8 % (0.0-7.0); HEMATOCRIT 31.6 % (37.0-47.0); HEMOGLOBIN 10.3 g/dl (12.0-16.0); LYMPHOCYTES # 1.1 10^3/ul (0.8-2.9); LYMPHOCYTES % 25.3 % (15.0-51.0); MEAN CORPUSCULAR HEMOGLOBIN 33.8 pg (29.0-33.0); MEAN CORPUSCULAR HGB CONC 32.6 g/dl (32.0-37.0); MEAN CORPUSCULAR VOLUME 103.6 fl (82.0-101.0); MEAN PLATELET VOLUME 11.2 fl (7.4-10.4); MONOCYTE # 0.6 10^3/ul (0.3-0.9); MONOCYTES % 13.1 % (0.0-11.0); NEUTROPHIL # 2.5 10^3/ul (1.6-7.5); NEUTROPHILS % 57.4 % (39.0-77.0); PLATELET COUNT 262 10^3/UL (140-415); RED BLOOD COUNT 3.05 10^6/ul (4.20-5.40); RED CELL DISTRIBUTION WIDTH 14.5 % (11.5-14.5); WHITE BLOOD COUNT 4.4 10^3/ul (4.8-10.8)
[2016-11-13] MEDS ORDERED: LOSA50TA6 PO (18:09)
[2016-11-13] MEDS ORDERED: GABA300C16 PO (18:09)
[2016-11-13] MEDS ORDERED: FURO80TA3 PO (18:09)
[2016-11-13] MEDS ORDERED: CARV6.2579 PO (18:10)
[2016-11-13] MEDS ORDERED: CLOP75TA4 PO (18:10)
[2016-11-13] MEDS ORDERED: PANT40TA4 PO (18:10)
[2016-11-13] MEDS ORDERED: INSU100I12 SQ (18:12)
[2016-11-13] MEDS ORDERED: LANT3I SC (18:13)
[2016-11-13] MEDS ORDERED: CLON0.2T5 PO (18:18)
[2016-11-13] MEDS ORDERED: FOLI-49 PO (18:18)
[2016-11-13] MEDS ORDERED: DOCU100T PO (18:18)
--- NOTE | 2016-11-13 18:18 | ERA ---
ER Documentation Chief Complaint Date/Time DATE: 11/13/16 TIME: 18:13 Chief Complaint LEFT LEG INFECTION, SENT PER PMD FOR ADMISSION HPI 56-year-old woman complains of left medial mid leg pain, swelling, redness 2 weeks. She has been using random oral antibiotics intermittently that she has had at home from previous prescriptions without improvement. She was [facility] today and sent by Dr. Ruano for admission. She has pain in the left leg with ambulation but denies calf swelling, no she denies fevers or chills, no chest pain or shortness of breath, no vomiting or diarrhea. Patient does have a long history of diabetes mellitus and previous right toe amputation secondary to infection. Patient has end-stage kidney disease and is due for hemodialysis this evening. ROS All systems reviewed and are negative except as per history of present illness. Medications Home Meds Reported Medications Sevelamer Carbonate* (Renvela*) 800 Mg Tablet, 0.8 GM PO WITH MEALS, TAB 11/13/16 Multivit/Ca Carb/B Cmplx/Fa* (Addie-Mikayla*) 1 Tab Tab, 1 TAB PO DAILY, TAB 11/13/16 Docusate Sodium* (Dok*) 100 Mg Tablet, 100 MG PO BID, #60 CAP 11/13/16 Folic Acid* (Folic Acid*) 1 Mg Tablet, 1 MG PO DAILY, TAB 11/13/16 Clonidine Hcl* (Clonidine Hcl*) 0.2 Mg Tablet, 0.2 MG PO TID Y for HTN, TAB 11/13/16 Insulin Glargine* (Lantus*) 100 Unit/Ml Soln, 40 UNIT SC QHS, #1 VIAL 11/13/16 Insulin Lispro (Humalog Kwikpen U-100) 100 Unit/1 Ml Insuln.pen, 0 SQ SLIDING SCALE 11/13/16 Clopidogrel Bisulfate* (Clopidogrel Bisulfate*) 75 Mg Tablet, 75 MG PO DAILY, # 30 TAB 11/13/16 Carvedilol* (Carvedilol*) 6.25 Mg Tablet, 6.25 MG PO DAILY, #60 TAB 11/13/16 Pantoprazole* (Pantoprazole*) 40 Mg Tablet.dr, 40 MG PO AC BREAKFAST, TAB 11/13/16 Losartan Potassium* (Losartan Potassium*) 50 Mg Tablet, 50 MG PO DAILY, TAB 11/13/16 Gabapentin* (Gabapentin*) 300 Mg Capsule, 300 MG PO BID, #60 CAP 11/13/16 Furosemide* (Furosemide*) 80 Mg Tablet, 80 MG PO BID, #60 TAB 11/13/16 Atorvastatin* (Atorvastatin*) 40 Mg Tablet, 40 MG PO QHS, #30 TAB 07/03/16 Amlodipine Besylate* (Amlodipine Besylate*) 10 Mg Tablet, 10 MG PO DAILY, #30 TAB 07/03/16 Aspirin* (Aspirin* EC) 81 Mg Tablet.dr, 81 MG PO DAILY, TAB 07/03/16 Alprazolam* (Alprazolam*) 0.25 Mg Tablet, 0.25 MG PO TID Y for ANXIETY, TAB 07/03/16 Discontinued Reported Medications [place]-3 Fatty Acids (Fish Oil) Unknown Strength Capsule, 1 TAB PO DAILY, CAP 07/03/16 Naproxen* (Aleve*) 220 Mg Capsule, 220 MG PO NEEDED Y for PRN, #60 CAP 07/03/16 Omeprazole* (Omeprazole*) 20 Mg Capsule.dr, 20 MG PO DAILY, #30 CAP 07/03/16 Calcitriol* (Rocaltrol*) 0.25 Mcg Capsule, 0.25 MCG PO DAILY, CAP 07/03/16 Sevelamer Carbonate* (Renvela*) 800 Mg Tablet, 0.8 GM PO WITH MEALS, TAB 07/03/16 Discontinued Scripts Hydrocodone/Acetaminophen ([place] 5-325 Tablet) 1 Each Tablet, 1 TAB PO Q6H Y for PAIN, #20 TAB Prov:CASANDRA VIRGEN DO 10/26/16 Oxycodone HCl/Acetaminophen (Percocet 5-325 mg Tablet) 1 Each Tablet, 1 EACH PO Q6 Y for SEVERE PAIN LEVEL 7-10, #15 TAB Prov:JAMES JULIEN MD 07/03/16 Allergies Allergies: Coded Allergies: No Known Allergies (Verified Allergy, Unknown, 11/13/16) PMhx/Soc Obesity, hypertension, CHF, CAD, anxiety, diabetes mellitus, right toe amputation, gastritis, severe peripheral vascular disease status post left lower extremity angiogram and endovascular intervention, end-stage kidney disease hemodialysis dependent, previous osteomyelitis of the left foot and right foot, chronic pain syndrome History of Surgery: Yes (BYPASS LT LEG,RT TOES X 2 AMPUTATION,RT UPPER ARM SURGERY,RT OVARY REMOVED) Anesthesia Reaction: No Hx Neurological Disorder: No Hx Respiratory Disorders: No Hx Cardiac Disorders: Yes (HTN,PVD,ANEMIA) Hx Psychiatric Problems: Yes (DEPRESSION) Hx Miscellaneous Medical Probl: Yes (PERIPHERAL NEUROPATHY, PERMCATH PLACEMENT RT CHEST,KIRSTEN AVF PLACEMENT) Hx Alcohol Use: No Hx Substance Use: No Hx Tobacco Use: Yes (QUIT ) Smoking Status: Former smoker FmHx Family History: No diabetes Physical Exam Vitals Vital Signs Date Time Temp Pulse Resp B/P Pulse Ox O2 Delivery O2 Flow Rate FiO2 11/13/16 18:25 98.0 76 17 197/88 100 Room Air 11/13/16 16:56 98.0 67 17 210/88 97 Physical Exam GENERAL: Well-developed, well-nourished, well-hydrated, in no apparent distress , looks nontoxic in appearance, patient was afebrile HEENT: Moist mucous membranes, pink conjunctiva, no cervical spine tenderness or step-off deformities, no goiter, no jaundice or icterus, extraocular movements intact without pain. No submandibular induration, and no pharyngeal erythema NEURO: Alert and oriented 3, cranial nerves II through XII intact bilaterally, pupils equal round reactive to light, no focal deficits or facial asymmetry, sensation intact distally Strength 5/5 in upper and lower extremities bilaterally CARDIAC: Regular rate and rhythm, no murmurs rubs or gallops LUNGS: Clear bilaterally no wheezing crackles or stridor ABDOMEN: Soft nontender, no guarding, no rigidity, no rebound, no psoas sign no obturator sign. Normoactive bowel sounds SKIN: Warm and dry to touch, no abrasions, contusions, or hematomas, no lacerations, no ecchymosis, no target lesions, and without ulcers EXTREMITIES: Mild soft tissue erythema and induration to the mid left medial leg with superficial circular eschar in the center of the erythematous zone, calves bilaterally symmetrical, no Homans sign, no popliteal cord sign. PSYCH: Normal affect without agitation or irritability Result Diagram: 11/13/16 1700 11/13/16 1700 Results 24 hrs Laboratory Tests Test 11/13/16 17:00 White Blood Count 4.410^3/ul Red Blood Count 3.0510^6/ul Hemoglobin 10.3g/dl Hematocrit 31.6% Mean Corpuscular Volume 103.6fl Mean Corpuscular Hemoglobin 33.8pg Mean Corpuscular Hemoglobin Concent 32.6g/dl Red Cell Distribution Width 14.5% Platelet Count 60005^3/UL Mean Platelet Volume 11.2fl Neutrophils % 57.4% Lymphocytes % 25.3% Monocytes % 13.1% Eosinophils % 3.8% Basophils % 0.2% Nucleated Red Blood Cells % 0.0/100WBC Neutrophils # 2.510^3/ul Lymphocytes # 1.110^3/ul Monocytes # 0.610^3/ul Eosinophils # 0.210^3/ul Basophils # 0.010^3/ul Nucleated Red Blood Cells # 0.010^3/ul Prothrombin Time 11.7Sec Prothrombin Time Ratio 0.9 INR International Normalized Ratio 0.86 Sodium Level 143mmol/L Potassium Level 4.3mmol/L Chloride Level 99mmol/L Carbon Dioxide Level 29mmol/L Anion Gap 19 Blood Urea Nitrogen 63mg/dl Creatinine 4.88mg/dl Glucose Level 277mg/dl Calcium Level 9.1mg/dl Current Medications Medications (Trade) Dose Ordered Sig/Kayla Route PRN Reason Start Time Stop Time Status Last Admin Dose Admin Ketorolac Tromethamine 15 mg 15 mg ONCE STAT IV 11/13/16 17:47 11/13/16 17:48 DC Piperacillin Sod/ Tazobactam Sod 100 ml @ 200 mls/hr ONCE ONCE IVPB 11/13/16 18:00 11/13/16 18:29 DC 11/13/16 18:09 Vancomycin HCl (Vancocin) 250 ml @ 125 mls/hr ONCE IVPB 11/13/16 18:00 11/13/16 19:59 Procedures/MDM IV line was established patient was placed on director of cardiac cath lab rhythm strip revealed a sinus rhythm at about 80 bpm with upright P and T waves. Patient was afebrile. Blood cultures 2 was ordered results are pending I will follow- up. Chest X-ray 1V Interpreted by me: Soft Tissue: No acute abnormalities Bones: No acute abnormalities Mediastinum/Cardiac Silhouette/Lungs: No acute abnormalities EKG performed, read by me:73 bpm, normal sinus rhythm, normal axis, no acute ST segment changes, narrow QRS complex, with good R-wave progression in precordial leads. X-ray left Tib/Fib 2V Interpreted by me: Bones: No fracture Joints: No dislocation Foreign body: Positive vascular calcifications, no soft tissue air CBC was normal, troponin negative, electrolytes revealed renal failure with a BUN/creatinine of 63/4.9, coagulation profile normal. I treated the patient with piperacillin tazobactam 3.375 g IV and vancomycin 1 g IV. She also received Toradol 15 mg IV 1. Patient will be admitted [facility] for continued medical management, hemodialysis, and vascular surgery consultation. Departure Diagnosis: Primary Impression: Left leg cellulitis Additional Impressions: Diabetic ulcer of ankle End stage kidney disease Peripheral vascular disease Condition: ANTHONY Bui MD Nov 13, 2016 18:18
[2016-11-13] MEDS ORDERED: NEPH PO (18:20)
[2016-11-13 18:21] LABS: INR 0.86; PROTIME 11.7 Sec (12.2-14.2); PT RATIO 0.9
[2016-11-13] MEDS ORDERED: SEVE800T7 PO (18:21)
[2016-11-13 18:24] LABS: CALCIUM 9.1 mg/dl (8.4-10.2); CREATININE 4.88 mg/dl (0.44-1.00); POTASSIUM 4.3 mmol/L (3.5-5.1)
[2016-11-13] MEDS ORDERED: hydrALAzine 20 MG INJ IV ONE ×2 (19:00→21:00)
--- NOTE | 2016-11-13 19:05 | RADRPT ---
PROCEDURE: XR Left Tibia-Fibula CLINICAL INDICATION: Pain TECHNIQUE: AP and lateral radiographs were submitted COMPARISON: None FINDINGS: Osseous structures: appear well mineralized and intact with no fracture or destructive process iden tified. Joint spaces: are well maintained, with no significant spurring, erosion or joint effusion evident. Soft tissues: Atherosclerotic vascular calcification is evident and endovascular stent projects to t he popliteal fossa. IMPRESSION: 1. Vascular calcification 2. An endovascular stent projects to the popliteal fossa. 3. Otherwise, unremarkable left tibia-fibula. Physician Erika Date Time Electronically viewed and signed by Shmuel Guthrie Physician on 11/13/2016 19:05 /
[2016-11-13] MEDS ORDERED: morphine 2 MG INJ IV ONE (19:30)
--- NOTE | 2016-11-13 20:05 | RADRPT ---
PROCEDURE: XR Chest 1 View. CLINICAL INDICATION: Chest pain TECHNIQUE: AP view of the chest was obtained. COMPARISON: December 27, 2015 FINDINGS: The heart size is within normal limits. Calcified atherosclerosis is noted in the aorta. Right-side d dialysis catheter has its tip in the expected location of the distal superior vena cava. Central pulmonary vascular congestion and mild interstitial prominence is seen in both lungs. Atelectasis i s noted at the lung bases. No consolidations are identified. No pneumothorax is seen. Partially vi sualized right humerus fracture fixation is identified. IMPRESSION: Calcified atherosclerosis in the aorta. Central pulmonary vascular congestion and interstitial prominence is seen in both lungs. Atelectasis at the lung bases. RPTAT: AA .Neri Rivera MD, Date Time Electronically viewed and signed by .Neri Rivera MD, on 11/13/2016 20:05 .P/
[2016-11-13] MEDS ORDERED: VANCOMYCIN IV PER PHARMACY XX SCH ×2 (21:00)
[2016-11-13] MEDS ORDERED: HYDROCODONE/APAP (5/325) TAB PO PRN (21:30)
[2016-11-13] MEDS ORDERED: GLUCOSE GEL 15 GRAM TUBE PO PRN ×2 (22:00)
[2016-11-13] MEDS ORDERED: GLUCAGON 1 MG INJ IM PRN (22:00)
[2016-11-13] MEDS ORDERED: GLUCOSE GEL 15 GRAM TUBE BUCCAL PRN (22:00)
[2016-11-13] MEDS ORDERED: VANCOMYCIN 1 GM in NS 250 ML IVPB ONE (22:00)
[2016-11-13] MEDS ORDERED: DEXTROSE 50% 50 ML SYRINGE IV PRN ×2 (22:00)
[2016-11-13 22:06] LABS: CHOL/HDL RATIO 2.8 RATIO
[2016-11-13] MEDS ORDERED: ALBUMIN HUMAN 25% 50 ML IV PRN (22:30)
[2016-11-13] MEDS ORDERED: ALBUMIN HUMAN 5% 250 ML IV PRN (22:30)
[2016-11-13] MEDS ORDERED: SOD CHLORIDE 0.9% 1,000 ML IV PRN (22:30)
[2016-11-13] MEDS ORDERED: HEPARIN 1000 UNITS/ML 10 ML INJ CATHETER SCH (22:30)
[2016-11-13] MEDS ORDERED: BISACODYL (EC) 5 MG TAB PO ONE (23:00)
[2016-11-14 00:20] VITALS: BP 148/61; PULSE 73
[2016-11-14] MEDS: morphine 2 MG INJ IV PRN ×4 (00:44→19:51)
[2016-11-14] MEDS: INSULIN GLARGINE [LANtus] 3 ML PEN SC SCH ×2 (00:47→21:27)
[2016-11-14] MEDS: ACETAMINOPHEN 325 MG TAB PO PRN (00:57)
[2016-11-14 01:56] VITALS: BP 175/79; RESP 16
[2016-11-14] MEDS ORDERED: ACCU-CHEK XX SCH (02:00)
[2016-11-14] MEDS: ACCU-CHEK XX SCH (02:00)
--- NOTE | 2016-11-14 02:45 | HP ---
Date/Time of Note Date/Time of Note DATE: 11/13/16 TIME: 23:17 Assessment/Plan VTE Prophylaxis VTE Prophylaxis Intervention: other Lines/Catheters IV Catheter Type (from Nrsg): Saline Lock Reason Cath still needed: other (indicate) Assessment/Plan Assessment/Plan - Left leg cellulitis - Admit to [facility] - resume home meds - ID consult / Dr Sheets notified - Vanco per pharmacy - Zosyn - Severe peripheral vascular disease status post left lower extremity angiogram and endovascular intervention- BYPASS LT LEG, - Dr Ruano following - Diabetes mellitus - Glycemic control - Hgb AM - Renal diet - Dietary consult - 1800 [address] ADA diet - cashier ticket selling consult - Diabetic ulcer of ankle- wound care - Podiatry consult recommended - Peripheral neuropathy - End-stage kidney disease hemodialysis dependent - TTS schedule at [facility] - Nephrology consult- Dr Garcia notified -Obesity - weight management -Hypertension- resume home BP meds - Anemia of chronic disease- monitor H/H - CHF - CAD - Anxiety- no acute issue - Gastritis- cont. 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 Patient had been taking antibiotis on irregular basis and has failed the effectiveness. She was seen and recommended for admission by Dr. Ruano at [facility] today. She has c/o pain in the left leg with ambulation but denies any calf swelling, she denies fevers or chills, no chest pain or shortness of breath, no vomiting or diarrhea. Patient does have a long history of diabetes mellitus and previous right toe amputation secondary to infection. Patient has end-stage kidney disease and missed her HD today as she is on TTS schedule for HD at [facility]. Patient is having HD at present, tolerating well. All Qs ANSWERD. Dr Sheets/ Dr Garcia notified ROS All systems reviewed and are negative except as per history of present illness. Allergies No Known Allergies (Verified Allergy, Unknown, 11/13/16) ROS Respiratory: no complaints Cardiovascular: no complaints Gastrointestinal: no complaints Genitourinary: no complaints Musculoskeletal: bone/joint pain Skin: erythema, skin lesions Neurologic: no complaints Endocrine: no complaints PMH/Family/Social Past Medical History PMhx/Soc Obesity, hypertension, CHF, CAD, anxiety, diabetes mellitus, right toe amputation, gastritis, severe peripheral vascular disease status post left lower extremity angiogram and endovascular intervention, end-stage kidney disease hemodialysis dependent, previous osteomyelitis of the left foot and right foot, chronic pain syndrome History of Surgery: Yes (BYPASS LT LEG,RT TOES X 2 AMPUTATION,RT UPPER ARM SURGERY,RT OVARY REMOVED) Anesthesia Reaction: No Hx Neurological Disorder: No Hx Respiratory Disorders: No Hx Cardiac Disorders: Yes (HTN,PVD,ANEMIA) Hx Psychiatric Problems: Yes (DEPRESSION) Hx Miscellaneous Medical Probl: Yes (PERIPHERAL NEUROPATHY, PERMCATH PLACEMENT RT CHEST,KIRSTEN AVF PLACEMENT) Hx Alcohol Use: No Hx Substance Use: No Hx Tobacco Use: Yes (QUIT ) Smoking Status: Former smoker FmHx Family History: No diabetes Social History Smoking Status: Former smoker Exam/Review of Systems Vital Signs Vitals Vital Signs Date Time Temp Pulse Resp B/P Pulse Ox O2 Delivery O2 Flow Rate FiO2 11/13/16 21:58 98.1 83 18 181/79 98 11/13/16 21:11 Room Air Exam Constitutional: alert, oriented Respiratory: clear to auscultation, normal air movement Cardiovascular: nl pulses, regular rate and rhythm Gastrointestinal: non-tender, soft Musculoskeletal: other Extremities: edema, other (Mild soft tissue erythema and induration to the mid left medial leg with superficial circular eschar in the center of the erythematous zone, calves bilaterally symmetrical, no Homans sign, no popliteal cord sign.) Neurological: nl mental status, nl speech Skin: other, rash or lesions Labs Result Diagram: 11/13/16 1700 11/13/16 170 Medications Medications Current Medications Piperacillin Sod/ Tazobactam Sod 50 ml @ 200 mls/hr Q8 IVPB ; Start 11/14/16 at 06:00 Vancomycin HCl (Vancocin) 250 ml @ 125 mls/hr ONCE ONCE IVPB ; Start 11/13/16 at 22:00; Stop 11/13/16 at 23:59 Alprazolam (Xanax) 0.25 mg TID PRN PO ANXIETY; Start 11/13/16 at 21:30 Amlodipine Besylate (Norvasc) 10 mg DAILY PO ; Start 11/14/16 at 09:00 Aspirin (Halfprin) 81 mg DAILY PO ; Start 11/14/16 at 09:00 Atorvastatin Calcium (Lipitor) 40 mg QHS PO ; Start 11/14/16 at 21:00 Carvedilol (Coreg) 6.25 mg DAILY PO ; Start 11/14/16 at 09:00 Clonidine (Catapres) 0.2 mg TID PRN PO SBP>170; Start 11/13/16 at 21:30 Clopidogrel Bisulfate (plaVIX) 75 mg DAILY PO ; Start 11/14/16 at 09:00 Docusate Sodium (Colace) 100 mg BID PO ; Start 11/14/16 at 09:00 Folic Acid (Folic Acid) 1 mg DAILY PO ; Start 11/14/16 at 09:00 Gabapentin (Neurontin) 300 mg BID PO ; Start 11/14/16 at 09:00 Insulin Glargine (Lantus) 40 unit QHS SC ; Start 11/14/16 at 21:00 Losartan Potassium (Cozaar) 50 mg DAILY PO ; Start 11/14/16 at 09:00 Multivit/Ca Carb/ B Cmplx/FA/Prenat (Addie-Mikayla) 1 tab DAILY PO ; Start 11/14/16 at 09:00 Acetaminophen/ Hydrocodone Bitart ([place] (5/325)) 1 tab Q6H PRN PO PAIN LEVEL 4 -6; Start 11/13/16 at 21:30 Morphine Sulfate (morphine) 2 mg Q6H PRN IV PAIN LEVEL 7-10; Start 11/13/16 at 21:30 Acetaminophen (Tylenol Tab) 650 mg Q6H PRN PO ELEVATED TEMPERATURE; Start 11/13 at 21:30 Miscellaneous Information 1 ea NOTE XX ; Start 11/13/16 at 22:00 Glucose (Glutose) 15 gm Q15M PRN PO DECREASED GLUCOSE; Start 11/13/16 at 22:00 Glucose (Glutose) 22.5 gm Q15M PRN PO DECREASED GLUCOSE; Start 11/13/16 at 22: 00 Dextrose (D50w Syringe) 25 ml Q15M PRN IV DECREASED GLUCOSE; Start 11/13/16 at 22:00 Dextrose (D50w Syringe) 50 ml Q15M PRN IV DECREASED GLUCOSE; Start 11/13/16 at 22:00 Glucagon (Glucagen) 1 mg Q15M PRN IM DECREASED GLUCOSE; Start 11/13/16 at 22:00 Glucose 15 gm 15 gm Q15M PRN BUCCAL DECREASED GLUCOSE; Start 11/13/16 at 22:00 Sodium Chloride (NS) 1,000 ml @ 0 mls/hr Q0M PRN IV TO KEEP SBP ABOVE 90; Start 11/13/16 at 22:30 Diagnostic Test (Pha) (Accu-Chek) 1 ea 02 XX ; Start 11/14/16 at 02:00; Status UNV Miscellaneous Information (* Miscellaneous Pharmacy Order) HYPOGLYCEMIA PROTOCOL w... ONCE ONCE XX ; Start 11/13/16 at 23:30; Stop 11/13/16 at 23:31; Status UNV Diagnostic Test (Pha) (Accu-Chek) 1 ea 02 XX ; Start 11/14/16 at 02:00; Status UNV Procedures Procedures Chest X-ray Soft Tissue: No acute abnormalities Bones: No acute abnormalities Mediastinum/Cardiac Silhouette/Lungs: No acute abnormalities EKG :73 bpm, normal sinus rhythm, normal axis, no acute ST segment changes, narrow QRS complex, with good R-wave progression in precordial leads. X-ray left Tib/Fib Bones: No fracture Joints: No dislocation Foreign body: Positive vascular calcifications, no soft tissue air CBC was normal, troponin negative Electrolytes revealed renal failure with a BUN/creatinine of 63/4.9, coagulation profile normal. VIOLET RUDOLPH Nov 13, 2016 23:27
--- NOTE | 2016-11-14 03:52 | RADRPT ---
PROCEDURE: US bilateral lower extremity venous Doppler CLINICAL INDICATION: Bilateral swelling TECHNIQUE: Multiple sonographic images of the bilateral lower extremity deep venous system was obt ained utilizing grayscale, color-flow, compressive sonography and Doppler imaging with augmentation. COMPARISON: There are no similar studies submitted for comparison. FINDINGS: There is normal compressibility and flow within the left common femoral, superficial femoral, poplit eal, and calf veins. There is normal compressibility and flow within the right common femoral, superficial femoral, popli teal, and calf veins. The right peroneal vein is not visualized. IMPRESSION: No evidence of DVT within the lower extremities. RPTAT: HIKT .Dipak Blanco MD, MD Date Time Electronically viewed and signed by .Dipak Blanco MD, on 11/14/2016 03:52 .T/
[2016-11-14] MEDS: PIPER-TAZO 2.25 GM (PMX) 50 ML IVPB SCH ×3 (05:56→21:06)
[2016-11-14] MEDS: FUROSEMIDE 40 MG TAB PO SCH ×2 (05:58→17:46)
[2016-11-14 05:59] VITALS: BP 147/67; PULSE 70; RESP 18
[2016-11-14 06:18] LABS: BASOPHILS % 0.6 % (0.0-2.0); EOSINOPHILS # 0.2 10^3/ul (0.0-0.5); EOSINOPHILS % 4.9 % (0.0-7.0); HEMATOCRIT 28.8 % (37.0-47.0); HEMOGLOBIN 9.5 g/dl (12.0-16.0); LYMPHOCYTES # 1.2 10^3/ul (0.8-2.9); LYMPHOCYTES % 34.7 % (15.0-51.0); MEAN CORPUSCULAR HEMOGLOBIN 34.1 pg (29.0-33.0); MEAN CORPUSCULAR VOLUME 103.2 fl (82.0-101.0); MEAN PLATELET VOLUME 10.9 fl (7.4-10.4); MONOCYTE # 0.5 10^3/ul (0.3-0.9); MONOCYTES % 14.9 % (0.0-11.0); NEUTROPHIL # 1.6 10^3/ul (1.6-7.5); NEUTROPHILS % 44.9 % (39.0-77.0); PLATELET COUNT 202 10^3/UL (140-415); RED BLOOD COUNT 2.79 10^6/ul (4.20-5.40); RED CELL DISTRIBUTION WIDTH 14.5 % (11.5-14.5); WHITE BLOOD COUNT 3.5 10^3/ul (4.8-10.8)
[2016-11-14 07:01] LABS: CALCIUM 8.4 mg/dl (8.4-10.2); CREATININE 3.33 mg/dl (0.44-1.00)
[2016-11-14 07:34] VITALS: BP 129/65; RESP 18
[2016-11-14] MEDS: ASPIRIN (EC) 81 MG TAB PO SCH (08:18)
[2016-11-14] MEDS: DOCUSATE SODIUM 100 MG CAP PO SCH ×2 (08:18→21:06)
[2016-11-14] MEDS: MULTIVIT/CA CARB/B CMPLX/FA TAB PO SCH (08:18)
[2016-11-14] MEDS: FOLIC ACID 1 MG TAB PO SCH (08:18)
[2016-11-14] MEDS: GABAPENTIN 300 MG CAP PO SCH ×2 (08:18→21:06)
[2016-11-14] MEDS: PANTOPRAZOLE (EC) 40 MG TAB PO SCH (08:19)
[2016-11-14] MEDS: CLOPIDOGREL 75 MG TAB PO SCH (08:19)
[2016-11-14] MEDS: SEVELAMER CARBONATE 0.8 GM PKT PO SCH ×3 (08:20→17:45)
[2016-11-14] MEDS: LOSARTAN 50 MG TAB PO SCH (08:21)
[2016-11-14] MEDS: AMLODIPINE 10 MG TAB PO SCH (08:21)
[2016-11-14] MEDS: INSULIN ASPART [NOVOLOG] 3 ML PEN SC SCH ×6 (08:28→21:00)
[2016-11-14] MEDS ORDERED: DOCUSATE SODIUM 100 MG CAP PO ONE (09:00)
--- NOTE | 2016-11-14 12:19 | CONS ---
Date/Time of Note Date/Time of Note DATE: 11/14/16 TIME: 12:15 Assessment/Plan Assessment/Plan Chief Complaint/Hosp Course 1. Left lower extremity cellulitis 2. ESRD. 3. Severe peripheral vascular disease with left lower extremity ischemia, status post angiogram intervention. 4. Peripheral neuropathy. 5. Depression. 6. Anemia of chronic disease. 7. Hypertension, controlled. 8. DM type II uncontrolled Problems: Additional Assessment/Plan 1. Better control BS 2. Pain control Consultation Date/Type/Reason Admit Date/Time Nov 13, 2016 at 18:46 Initial Consult Date 11/13/2016 Reason for Consultation nephrology Exam/Review of Systems Vital Signs Vitals Vital Signs Date Time Temp Pulse Resp B/P Pulse Ox O2 Delivery O2 Flow Rate FiO2 11/14/16 07:34 98.1 62 18 129/65 96 11/14/16 05:59 Room Air Intake and Output 11/13/16 11/13/16 11/14/16 15:00 23:00 07:00 Intake Total 1740 ml Output Total 3000 ml Balance -1260 ml Exam Constitutional: alert, oriented Respiratory: clear to auscultation Cardiovascular: regular rate and rhythm Musculoskeletal: muscle weakness, swelling (left leg) Results Result Diagram: 11/14/16 0538 11/14/16 0538 Results 24 hrs Laboratory Tests Test 11/13/16 17:00 11/14/16 00:10 11/14/16 05:33 11/14/16 05:38 White Blood Count 4.4 L 3.5 #L Red Blood Count 3.05 L 2.79 L Hemoglobin 10.3 L 9.5 L Hematocrit 31.6 L 28.8 L Mean Corpuscular Volume 103.6 H 103.2 H Mean Corpuscular Hemoglobin 33.8 H 34.1 H Mean Corpuscular Hemoglobin Concent 32.6 33.0 Red Cell Distribution Width 14.5 14.5 Platelet Count 262 # 202 # Mean Platelet Volume 11.2 H 10.9 H Neutrophils % 57.4 44.9 Lymphocytes % 25.3 34.7 Monocytes % 13.1 H 14.9 H Eosinophils % 3.8 4.9 Basophils % 0.2 0.6 Nucleated Red Blood Cells % 0.0 0.0 Neutrophils # 2.5 1.6 Lymphocytes # 1.1 1.2 Monocytes # 0.6 0.5 Eosinophils # 0.2 0.2 Basophils # 0.0 0.0 Nucleated Red Blood Cells # 0.0 0.0 Prothrombin Time 11.7 L Prothrombin Time Ratio 0.9 INR International Normalized Ratio 0.86 Sodium Level 143 140 Potassium Level 4.3 4.0 Chloride Level 99 98 Carbon Dioxide Level 29 28 Anion Gap 19 H 18 H Blood Urea Nitrogen 63 H 40 #H Creatinine 4.88 H 3.33 #H Glucose Level 277 H 263 H Calcium Level 9.1 8.4 Troponin I < 0.012 Triglycerides Level 206 H Cholesterol Level 148 LDL Cholesterol, Calculated 55 HDL Cholesterol 52 Cholesterol/HDL Ratio 2.8 Bedside Glucose 322 H Hemoglobin A1c 8.8 H Test 11/14/16 08:01 11/14/16 11:55 Bedside Glucose 233 H 315 H Medications Medications Current Medications Piperacillin Sod/ Tazobactam Sod (Zosyn 2.25gm/ 50ml (Pmx)) 50 ml @ 200 mls/hr Q8 IVPB Last administered on 11/14/16 05:56; Admin Dose 200 MLS/HR; Start 02/20 at 06:00 Alprazolam (Xanax) 0.25 mg TID PRN PO ANXIETY; Start 11/13/16 at 21:30 Amlodipine Besylate (Norvasc) 10 mg DAILY PO Last administered on 11/14/16 08: 21; Admin Dose 10 MG; Start 11/14/16 at 09:00 Aspirin (Halfprin) 81 mg DAILY PO Last administered on 11/14/16 08:18; Admin Dose 81 MG; Start 11/14/16 at 09:00 Atorvastatin Calcium (Lipitor) 40 mg QHS PO ; Start 11/14/16 at 21:00 Carvedilol (Coreg) 6.25 mg DAILY PO Last administered on 11/14/16 08:21; Admin Dose 6.25 MG; Start 11/14/16 at 09:00 Clonidine (Catapres) 0.2 mg TID PRN PO SBP>170; Start 11/13/16 at 21:30 Clopidogrel Bisulfate (plaVIX) 75 mg DAILY PO Last administered on 11/14/16 08 :19; Admin Dose 75 MG; Start 11/14/16 at 09:00 Docusate Sodium (Colace) 100 mg BID PO Last administered on 11/14/16 08:18; Admin Dose 100 MG; Start 11/14/16 at 09:00 Folic Acid (Folic Acid) 1 mg DAILY PO Last administered on 11/14/16 08:18; Admin Dose 1 MG; Start 11/14/16 at 09:00 Gabapentin (Neurontin) 300 mg BID PO Last administered on 11/14/16 08:18; Admin Dose 300 MG; Start 11/14/16 at 09:00 Insulin Glargine (Lantus) 40 unit QHS SC Last administered on 11/14/16 00:47; Admin Dose 40 UNIT; Start 11/14/16 at 00:15 Losartan Potassium (Cozaar) 50 mg DAILY PO Last administered on 11/14/16 08:21 ; Admin Dose 50 MG; Start 11/14/16 at 09:00 Multivit/Ca Carb/ B Cmplx/FA/Prenat (Addie-Mikayla) 1 tab DAILY PO Last administered on 11/14/16 08:18; Admin Dose 1 TAB; Start 11/14/16 at 09:00 Acetaminophen/ Hydrocodone Bitart ([place] (5/325)) 1 tab Q6H PRN PO PAIN LEVEL 4 -6 Last administered on 11/14/16 04:12; Admin Dose 1 TAB; Start 11/13/16 at 21: 30 Morphine Sulfate (morphine) 2 mg Q6H PRN IV PAIN LEVEL 7-10 Last administered on 11/14/16 07:24; Admin Dose 2 MG; Start 11/13/16 at 21:30 Acetaminophen (Tylenol Tab) 650 mg Q6H PRN PO ELEVATED TEMPERATURE Last administered on 11/14/16 00:57; Admin Dose 650 MG; Start 11/13/16 at 21:30 Miscellaneous Information 1 ea NOTE XX ; Start 11/13/16 at 22:00 Glucose (Glutose) 15 gm Q15M PRN PO DECREASED GLUCOSE; Start 11/13/16 at 22:00 Glucose (Glutose) 22.5 gm Q15M PRN PO DECREASED GLUCOSE; Start 11/13/16 at 22: 00 Dextrose (D50w Syringe) 25 ml Q15M PRN IV DECREASED GLUCOSE; Start 11/13/16 at 22:00 Dextrose (D50w Syringe) 50 ml Q15M PRN IV DECREASED GLUCOSE; Start 11/13/16 at 22:00 Glucagon (Glucagen) 1 mg Q15M PRN IM DECREASED GLUCOSE; Start 11/13/16 at 22:00 Glucose 15 gm 15 gm Q15M PRN BUCCAL DECREASED GLUCOSE; Start 11/13/16 at 22:00 Sodium Chloride (NS) 1,000 ml @ 0 mls/hr Q0M PRN IV TO KEEP SBP ABOVE 90; Start 11/13/16 at 22:30 Diagnostic Test (Pha) (Accu-Chek) 1 ea 02 XX ; Start 11/14/16 at 02:00 KUNAL RAMOS Nov 14, 2016 12:19
[2016-11-14] MEDS: LINAGLIPTIN 5 MG TABLET PO SCH (12:27)
[2016-11-14 14:52] VITALS: BP 126/62; RESP 18
[2016-11-14] MEDS ORDERED: EUCERIN 113 GM CR TOP PRN (15:30)
--- NOTE | 2016-11-14 15:49 | CONS ---
Date/Time of Note Date/Time of Note DATE: 11/14/16 TIME: 15:31 Assessment/Plan Assessment/Plan Chief Complaint/Hosp Course assessment/impression - skin and soft tissue infection of LLE with eschar - PVD - s/p bypass of LLE - DM - h/o OM of b/l feet, s/p amputation of R two toes - diabetic neuropathy - ESRD on HD via permacath on R chest wall 3 times a week - Anemia of chronic disease - CHF and CAD - s/p orthopedic procedures to RUE with metal prosthetic after bone Fx - dry skin and pruritis, which started prior to admission - possible red man syndrome due to vancomycin recommendations - if the bulla spontaneously opens, will collect the fluid for culture - ordered CT of LLE to r/o osteomyelitis (no MRI because Pt has metal prosthetic in her RUE) - continue renally dosed pip/tazo and IV vancomycin - I ordered premedication protocol for IV vancomycin: benadrl, tylenol 30 min prior to infusion, and increase the infusion time to 2 hrs - Pt requests cream for dry skin; ordered eucerin cream management d/w Pt and her RN Problems: Consultation Date/Type/Reason Admit Date/Time Nov 13, 2016 at 18:46 Date of Consultation: Nov 14, 2016 Type of Consultation: ID Reason for Consultation skin and soft tissue infection of LLE Referring Provider: VIOLET RUDOLPH of Present Illness This is a 56 yo female with DM, ESRD on HD, and PVD. 3 weeks ago, Pt's dog ran by her LLE and the dog collar lacerated the L lateral leg. Pt did not seek medical care. The wound eventually closed spontaneously. 1 week after that, a tender area started to raise and formed an eschar on L anterior leg. Now the pain of LLE is rated 9. Pt also developed chills and subjective fever. As a result, Pt came to ER. ROBERT Rudolph requested ID consultation on this Pt. Constitutional: chills, febrile Eyes: no complaints ENT: no complaints Respiratory: no complaints Cardiovascular: no complaints Gastrointestinal: no complaints Genitourinary: no complaints Musculoskeletal: bone/joint pain (LLE) Skin: erythema, laceration, skin lesions Neurologic: other (diminished sensation of b/l toes and feet) Past Medical History Medical History: congestive heart failure, coronary artery disease, hypertension, renal disease, other (PVD, OM) Past Surgical History Past Surgical Hx: other (s/p bypass of LLEm amputation of two # toes) Social History Alcohol Use: none Smoking Status: Former smoker Drug Use: none Exam/Review of Systems Vital Signs Vitals Vital Signs Date Time Temp Pulse Resp B/P Pulse Ox O2 Delivery O2 Flow Rate FiO2 11/14/16 14:52 97.8 68 18 126/62 97 11/14/16 05:59 Room Air Intake and Output 11/13/16 11/13/16 11/14/16 15:00 23:00 07:00 Intake Total 1740 ml Output Total 3000 ml Balance -1260 ml Exam Constitutional: alert, oriented, well developed Psych: nl mood/affect, no complaints Head: atraumatic, normocephalic Eyes: nl conjunctiva, nl lids ENMT: nl external ears & nose, nl nasal mucosa & septum Neck: supple Respiratory: clear to auscultation, normal air movement Cardiovascular: nl pulses, regular rate and rhythm Gastrointestinal: non-tender, soft, No distended Musculoskeletal: swelling (LLE) Extremities: edema Neurological: other (diminished sensation of b/l feet and toes) Skin: rash or lesions (erythema of LLE. closed laceration on L lateral leg. fluid containing lesion and eschar on L anterior leg) Results Result Diagram: 11/14/16 0538 11/14/16 0538 Results 24 hrs Laboratory Tests Test 11/13/16 17:00 11/14/16 00:10 11/14/16 05:33 11/14/16 05:38 White Blood Count 4.4 L 3.5 #L Red Blood Count 3.05 L 2.79 L Hemoglobin 10.3 L 9.5 L Hematocrit 31.6 L 28.8 L Mean Corpuscular Volume 103.6 H 103.2 H Mean Corpuscular Hemoglobin 33.8 H 34.1 H Mean Corpuscular Hemoglobin Concent 32.6 33.0 Red Cell Distribution Width 14.5 14.5 Platelet Count 262 # 202 # Mean Platelet Volume 11.2 H 10.9 H Neutrophils % 57.4 44.9 Lymphocytes % 25.3 34.7 Monocytes % 13.1 H 14.9 H Eosinophils % 3.8 4.9 Basophils % 0.2 0.6 Nucleated Red Blood Cells % 0.0 0.0 Neutrophils # 2.5 1.6 Lymphocytes # 1.1 1.2 Monocytes # 0.6 0.5 Eosinophils # 0.2 0.2 Basophils # 0.0 0.0 Nucleated Red Blood Cells # 0.0 0.0 Prothrombin Time 11.7 L Prothrombin Time Ratio 0.9 INR International Normalized Ratio 0.86 Sodium Level 143 140 Potassium Level 4.3 4.0 Chloride Level 99 98 Carbon Dioxide Level 29 28 Anion Gap 19 H 18 H Blood Urea Nitrogen 63 H 40 #H Creatinine 4.88 H 3.33 #H Glucose Level 277 H 263 H Calcium Level 9.1 8.4 Troponin I < 0.012 Triglycerides Level 206 H Cholesterol Level 148 LDL Cholesterol, Calculated 55 HDL Cholesterol 52 Cholesterol/HDL Ratio 2.8 Bedside Glucose 322 H Hemoglobin A1c 8.8 H Test 11/14/16 08:01 11/14/16 11:55 Bedside Glucose 233 H 315 H Medications Medications Current Medications Alprazolam (Xanax) 0.25 mg TID PRN PO ANXIETY; Start 11/13/16 at 21:30 Amlodipine Besylate (Norvasc) 10 mg DAILY PO Last administered on 11/14/16 08: 21; Admin Dose 10 MG; Start 11/14/16 at 09:00 Aspirin (Halfprin) 81 mg DAILY PO Last administered on 11/14/16 08:18; Admin Dose 81 MG; Start 11/14/16 at 09:00 Atorvastatin Calcium (Lipitor) 40 mg QHS PO ; Start 11/14/16 at 21:00 Carvedilol (Coreg) 6.25 mg DAILY PO Last administered on 11/14/16 08:21; Admin Dose 6.25 MG; Start 11/14/16 at 09:00 Clonidine (Catapres) 0.2 mg TID PRN PO SBP>170; Start 11/13/16 at 21:30 Clopidogrel Bisulfate (plaVIX) 75 mg DAILY PO Last administered on 11/14/16 08 :19; Admin Dose 75 MG; Start 11/14/16 at 09:00 Docusate Sodium (Colace) 100 mg BID PO Last administered on 11/14/16 08:18; Admin Dose 100 MG; Start 11/14/16 at 09:00 Folic Acid (Folic Acid) 1 mg DAILY PO Last administered on 11/14/16 08:18; Admin Dose 1 MG; Start 11/14/16 at 09:00 Gabapentin (Neurontin) 300 mg BID PO Last administered on 11/14/16 08:18; Admin Dose 300 MG; Start 11/14/16 at 09:00 Insulin Glargine (Lantus) 40 unit QHS SC Last administered on 11/14/16 00:47; Admin Dose 40 UNIT; Start 11/14/16 at 00:15 Losartan Potassium (Cozaar) 50 mg DAILY PO Last administered on 11/14/16 08:21 ; Admin Dose 50 MG; Start 11/14/16 at 09:00 Multivit/Ca Carb/ B Cmplx/FA/Prenat (Addie-Mikayla) 1 tab DAILY PO Last administered on 11/14/16 08:18; Admin Dose 1 TAB; Start 11/14/16 at 09:00 Morphine Sulfate (morphine) 2 mg Q6H PRN IV PAIN LEVEL 7-10 Last administered on 11/14/16 13:27; Admin Dose 2 MG; Start 11/13/16 at 21:30 Acetaminophen (Tylenol Tab) 650 mg Q6H PRN PO ELEVATED TEMPERATURE Last administered on 11/14/16 00:57; Admin Dose 650 MG; Start 11/13/16 at 21:30 Miscellaneous Information 1 ea NOTE XX ; Start 11/13/16 at 22:00 Glucose (Glutose) 15 gm Q15M PRN PO DECREASED GLUCOSE; Start 11/13/16 at 22:00 Glucose (Glutose) 22.5 gm Q15M PRN PO DECREASED GLUCOSE; Start 11/13/16 at 22: 00 Dextrose (D50w Syringe) 25 ml Q15M PRN IV DECREASED GLUCOSE; Start 11/13/16 at 22:00 Dextrose (D50w Syringe) 50 ml Q15M PRN IV DECREASED GLUCOSE; Start 11/13/16 at 22:00 Glucagon (Glucagen) 1 mg Q15M PRN IM DECREASED GLUCOSE; Start 11/13/16 at 22:00 Glucose 15 gm 15 gm Q15M PRN BUCCAL DECREASED GLUCOSE; Start 11/13/16 at 22:00 Sodium Chloride (NS) 1,000 ml @ 0 mls/hr Q0M PRN IV TO KEEP SBP ABOVE 90; Start 11/13/16 at 22:30 Diagnostic Test (Pha) (Accu-Chek) 1 ea 02 XX ; Start 11/14/16 at 02:00 Acetaminophen/ Hydrocodone Bitart ([place] (5/325)) 1 tab Q4H PRN PO PAIN LEVEL 4 -6; Start 11/14/16 at 13:00 Linagliptin 5 mg 5 mg DAILY PO Last administered on 11/14/16t 12:27; Admin Dose 5 MG; Start 11/14/16 at 12:30 Piperacillin Sod/ Tazobactam Sod (Zosyn 2.25gm/ 50ml (Pmx)) 50 ml @ 100 mls/hr Q12 IVPB ; Start 11/14/16 at 21:00 Multi-Ingredient Ointment (Eucerin Cream) 1 applic BID PRN TOP DRY SKIN; Start 11/14/16 at 15:30 ALEXANDER MARTÍNEZ M.D. Nov 14, 2016 15:44
--- NOTE | 2016-11-14 16:32 | PN ---
Date/Time of Note Date/Time of Note DATE: 11/14/16 TIME: 16:28 Assessment/Plan VTE Prophylaxis VTE Prophylaxis Intervention: heparin Lines/Catheters IV Catheter Type (from Nrsg): Saline Lock Assessment/Plan Assessment/Plan -Left lower extremity cellulitis, Dr. Rice is following infection disease consultation, continue antibiotics per ID. -Severe PVD, with multiple vascular intervention including a left lower extremity bypass. Dr. Ruano is following an vascular surgery. -Hemodialysis dependent end-stage renal disease -Diabetes mellitus type 2 -S/p orthopedic procedures to RUE with metal prosthetic after bone Fx Further recommendations based on clinical course. Plan of care discussed with Dr. Cordero. Exam/Review of Systems Vital Signs Vitals Vital Signs Date Time Temp Pulse Resp B/P Pulse Ox O2 Delivery O2 Flow Rate FiO2 11/14/16 14:52 97.8 68 18 126/62 97 11/14/16 05:59 Room Air Intake and Output 11/13/16 11/13/16 11/14/16 15:00 23:00 07:00 Intake Total 1740 ml Output Total 3000 ml Balance -1260 ml Exam Constitutional: alert, oriented Head: normocephalic Neck: supple Respiratory: clear to auscultation Cardiovascular: nl pulses Gastrointestinal: non-tender, soft Musculoskeletal: nl extremities to inspection Extremities: normal pulses Neurological: nl mental status Skin: other (LLE wound with eschar) Results Result Diagram: 11/14/16 0538 11/14/16 0538 Results 24 hrs Laboratory Tests Test 11/13/16 17:00 11/14/16 00:10 11/14/16 05:33 11/14/16 05:38 White Blood Count 4.4 L 3.5 #L Red Blood Count 3.05 L 2.79 L Hemoglobin 10.3 L 9.5 L Hematocrit 31.6 L 28.8 L Mean Corpuscular Volume 103.6 H 103.2 H Mean Corpuscular Hemoglobin 33.8 H 34.1 H Mean Corpuscular Hemoglobin Concent 32.6 33.0 Red Cell Distribution Width 14.5 14.5 Platelet Count 262 # 202 # Mean Platelet Volume 11.2 H 10.9 H Neutrophils % 57.4 44.9 Lymphocytes % 25.3 34.7 Monocytes % 13.1 H 14.9 H Eosinophils % 3.8 4.9 Basophils % 0.2 0.6 Nucleated Red Blood Cells % 0.0 0.0 Neutrophils # 2.5 1.6 Lymphocytes # 1.1 1.2 Monocytes # 0.6 0.5 Eosinophils # 0.2 0.2 Basophils # 0.0 0.0 Nucleated Red Blood Cells # 0.0 0.0 Prothrombin Time 11.7 L Prothrombin Time Ratio 0.9 INR International Normalized Ratio 0.86 Sodium Level 143 140 Potassium Level 4.3 4.0 Chloride Level 99 98 Carbon Dioxide Level 29 28 Anion Gap 19 H 18 H Blood Urea Nitrogen 63 H 40 #H Creatinine 4.88 H 3.33 #H Glucose Level 277 H 263 H Calcium Level 9.1 8.4 Troponin I < 0.012 Triglycerides Level 206 H Cholesterol Level 148 LDL Cholesterol, Calculated 55 HDL Cholesterol 52 Cholesterol/HDL Ratio 2.8 Bedside Glucose 322 H Hemoglobin A1c 8.8 H Test 11/14/16 08:01 11/14/16 11:55 Bedside Glucose 233 H 315 H Medications Medications Current Medications Alprazolam (Xanax) 0.25 mg TID PRN PO ANXIETY; Start 11/13/16 at 21:30 Amlodipine Besylate (Norvasc) 10 mg DAILY PO Last administered on 11/14/16 08: 21; Admin Dose 10 MG; Start 11/14/16 at 09:00 Aspirin (Halfprin) 81 mg DAILY PO Last administered on 11/14/16 08:18; Admin Dose 81 MG; Start 11/14/16 at 09:00 Atorvastatin Calcium (Lipitor) 40 mg QHS PO ; Start 11/14/16 at 21:00 Carvedilol (Coreg) 6.25 mg DAILY PO Last administered on 11/14/16 08:21; Admin Dose 6.25 MG; Start 11/14/16 at 09:00 Clonidine (Catapres) 0.2 mg TID PRN PO SBP>170; Start 11/13/16 at 21:30 Clopidogrel Bisulfate (plaVIX) 75 mg DAILY PO Last administered on 11/14/16 08 :19; Admin Dose 75 MG; Start 11/14/16 at 09:00 Docusate Sodium (Colace) 100 mg BID PO Last administered on 11/14/16 08:18; Admin Dose 100 MG; Start 11/14/16 at 09:00 Folic Acid (Folic Acid) 1 mg DAILY PO Last administered on 11/14/16 08:18; Admin Dose 1 MG; Start 11/14/16 at 09:00 Gabapentin (Neurontin) 300 mg BID PO Last administered on 11/14/16 08:18; Admin Dose 300 MG; Start 11/14/16 at 09:00 Insulin Glargine (Lantus) 40 unit QHS SC Last administered on 11/14/16 00:47; Admin Dose 40 UNIT; Start 11/14/16 at 00:15 Losartan Potassium (Cozaar) 50 mg DAILY PO Last administered on 11/14/16 08:21 ; Admin Dose 50 MG; Start 11/14/16 at 09:00 Multivit/Ca Carb/ B Cmplx/FA/Prenat (Addie-Mikayla) 1 tab DAILY PO Last administered on 11/14/16 08:18; Admin Dose 1 TAB; Start 11/14/16 at 09:00 Morphine Sulfate (morphine) 2 mg Q6H PRN IV PAIN LEVEL 7-10 Last administered on 11/14/16 13:27; Admin Dose 2 MG; Start 11/13/16 at 21:30 Acetaminophen (Tylenol Tab) 650 mg Q6H PRN PO ELEVATED TEMPERATURE Last administered on 11/14/16 00:57; Admin Dose 650 MG; Start 11/13/16 at 21:30 Miscellaneous Information 1 ea NOTE XX ; Start 11/13/16 at 22:00 Glucose (Glutose) 15 gm Q15M PRN PO DECREASED GLUCOSE; Start 11/13/16 at 22:00 Glucose (Glutose) 22.5 gm Q15M PRN PO DECREASED GLUCOSE; Start 11/13/16 at 22: 00 Dextrose (D50w Syringe) 25 ml Q15M PRN IV DECREASED GLUCOSE; Start 11/13/16 at 22:00 Dextrose (D50w Syringe) 50 ml Q15M PRN IV DECREASED GLUCOSE; Start 11/13/16 at 22:00 Glucagon (Glucagen) 1 mg Q15M PRN IM DECREASED GLUCOSE; Start 11/13/16 at 22:00 Glucose 15 gm 15 gm Q15M PRN BUCCAL DECREASED GLUCOSE; Start 11/13/16 at 22:00 Sodium Chloride (NS) 1,000 ml @ 0 mls/hr Q0M PRN IV TO KEEP SBP ABOVE 90; Start 11/13/16 at 22:30 Diagnostic Test (Pha) (Accu-Chek) 1 ea 02 XX ; Start 11/14/16 at 02:00 Acetaminophen/ Hydrocodone Bitart ([place] (5/325)) 1 tab Q4H PRN PO PAIN LEVEL 4 -6; Start 11/14/16 at 13:00 Linagliptin 5 mg 5 mg DAILY PO Last administered on 11/14/16t 12:27; Admin Dose 5 MG; Start 11/14/16 at 12:30 Piperacillin Sod/ Tazobactam Sod (Zosyn 2.25gm/ 50ml (Pmx)) 50 ml @ 100 mls/hr Q12 IVPB ; Start 11/14/16 at 21:00 Multi-Ingredient Ointment (Eucerin Cream) 1 applic BID PRN TOP DRY SKIN; Start 11/14/16 at 15:30 Diphenhydramine HCl (Benadryl) 25 mg TuThSa PO ; Start 11/15/16 at 15:30 Acetaminophen (Tylenol Tab) 325 mg TuThSa PO ; Start 11/15/16 at 15:30 ANTHONY DUPREE Nov 14, 2016 16:32 ANTHONY DUPREE Nov 14, 2016 16:32
[2016-11-14] MEDS ORDERED: SOD CHLORIDE 0.9% 1,000 ML IV PRN (16:54)
[2016-11-14] MEDS ORDERED: HEPARIN 1000 UNITS/ML 10 ML INJ CATHETER SCH (17:00)
[2016-11-14] MEDS ORDERED: ALBUMIN HUMAN 25% 50 ML IV PRN (17:00)
[2016-11-14] MEDS ORDERED: ALBUMIN HUMAN 25% 100 ML IV PRN (17:00)
--- NOTE | 2016-11-14 19:35 | RADRPT ---
PROCEDURE: CT left femur without contrast CLINICAL INDICATION: 56 years female rule out osteomyelitis of the left lower extremity TECHNIQUE: A noncontrast CT of the left lower extremity from the left iliac wing to the midfoot wa s performed without intravenous contrast. Coronal and sagittal reformats were generated. CTDIvol: 1 8.5 mGy. DLP: 1798 mGy-cm. COMPARISON: None. FINDINGS: There is edema in the superficial fascial compartment of the left lower extremity that is greatest a t the ankle and over the distal tibia and fibula but also extends into the foot and involves the ent brian left leg to the level of the left hip. Negative for abnormal soft tissue gas and negative for a radiopaque foreign body. Bones are osteopenic. Negative for periosteal reaction or bony destruction to indicate osteomyeliti s. There is tricompartment osteoarthritis of the knee with joint space narrowing and osteophytes and la teral translation of the patella at the patellofemoral joint. There is a small knee joint effusion. There is mild midfoot osteoarthritis with subchondral cysts in the cuboid and middle cuneiform. Th ere is minimal osteoarthritis of the left hip with subchondral geodes. There is extensive atherosclerosis of the arteries with calcification. There is a left femoral popl iteal bypass graft. The patency cannot be evaluated without intravenous contrast. There are varico se veins. Patency of veins cannot be evaluated without intravenous contrast. Muscles are atrophic. There is a 1.8 cm benign intramusuclar lipoma in the distal vastus medialis m uscle at the knee. IMPRESSION: Edema in the superficial fascial compartment greatest at the ankle and over the distal tibia and fib vero is nonspecific and may be seen with cellulitis or venous insufficiency. Negative for abnormal so ft tissue gas. Negative for bony destruction or periosteal reaction to indicate osteomyelitis. Extensive atherosclerosis with femoral popliteal bypass graft. Patency of the arteries, graft and v eins cannot be evaluated without intravenous contrast. RPTAT: HCTS Physician Priti Date Time Electronically viewed and signed by Physician Priti on 11/14/2016 19:35 /
[2016-11-14 19:39] VITALS: BP 95/54; RESP 20
[2016-11-14] MEDS: ATORVASTATIN 40 MG TAB PO SCH (21:06)
[2016-11-15] VITALS (11 sets, daily range): BP systolic 119–167; BP diastolic 52–76; PULSE 68–79; RESP 18–20
[2016-11-15] MEDS: HYDROCODONE/APAP (5/325) TAB PO PRN ×2 (01:11→20:17)
[2016-11-15] MEDS: ACCU-CHEK XX SCH (02:00)
[2016-11-15] MEDS: FUROSEMIDE 40 MG TAB PO SCH ×2 (05:24→17:43)
[2016-11-15 06:37] LABS: BASOPHILS % 0.5 % (0.0-2.0); EOSINOPHILS # 0.3 10^3/ul (0.0-0.5); EOSINOPHILS % 6.5 % (0.0-7.0); HEMATOCRIT 29.6 % (37.0-47.0); HEMOGLOBIN 9.7 g/dl (12.0-16.0); LYMPHOCYTES # 1.4 10^3/ul (0.8-2.9); LYMPHOCYTES % 34.9 % (15.0-51.0); MEAN CORPUSCULAR HEMOGLOBIN 34.2 pg (29.0-33.0); MEAN CORPUSCULAR HGB CONC 32.8 g/dl (32.0-37.0); MEAN CORPUSCULAR VOLUME 104.2 fl (82.0-101.0); MEAN PLATELET VOLUME 11.5 fl (7.4-10.4); MONOCYTE # 0.4 10^3/ul (0.3-0.9); MONOCYTES % 9.9 % (0.0-11.0); NEUTROPHILS % 48.2 % (39.0-77.0); PLATELET COUNT 179 10^3/UL (140-415); RED BLOOD COUNT 2.84 10^6/ul (4.20-5.40); RED CELL DISTRIBUTION WIDTH 14.6 % (11.5-14.5); WHITE BLOOD COUNT 4.1 10^3/ul (4.8-10.8)
[2016-11-15 06:54] LABS: CALCIUM 8.6 mg/dl (8.4-10.2); CREATININE 4.6 mg/dl (0.44-1.00); POTASSIUM 4.3 mmol/L (3.5-5.1)
[2016-11-15 07:15] LABS: POSITIVE DIFF @See below
[2016-11-15] MEDS: morphine 2 MG INJ IV PRN ×3 (08:39→21:39)
[2016-11-15] MEDS: INSULIN ASPART [NOVOLOG] 3 ML PEN SC SCH ×7 (08:43→21:00)
[2016-11-15] MEDS: SEVELAMER CARBONATE 0.8 GM PKT PO SCH ×3 (08:46→17:40)
[2016-11-15] MEDS: CLOPIDOGREL 75 MG TAB PO SCH (08:47)
[2016-11-15] MEDS: LINAGLIPTIN 5 MG TABLET PO SCH (08:47)
[2016-11-15] MEDS: PANTOPRAZOLE (EC) 40 MG TAB PO SCH (08:47)
[2016-11-15] MEDS: MULTIVIT/CA CARB/B CMPLX/FA TAB PO SCH (08:47)
[2016-11-15] MEDS: FOLIC ACID 1 MG TAB PO SCH (08:47)
[2016-11-15] MEDS: GABAPENTIN 300 MG CAP PO SCH ×2 (08:48→20:18)
[2016-11-15] MEDS: DOCUSATE SODIUM 100 MG CAP PO SCH ×2 (08:48→20:18)
[2016-11-15] MEDS: PIPER-TAZO 2.25 GM (PMX) 50 ML IVPB SCH (10:47)
[2016-11-15] MEDS: LOSARTAN 50 MG TAB PO SCH (10:50)
[2016-11-15] MEDS: ASPIRIN (EC) 81 MG TAB PO SCH (10:53)
[2016-11-15] MEDS: AMLODIPINE 10 MG TAB PO SCH (10:53)
--- NOTE | 2016-11-15 12:11 | CONS ---
Date/Time of Note Date/Time of Note DATE: 11/15/16 TIME: 12:09 Assessment/Plan Assessment/Plan Chief Complaint/Hosp Course 1. Left lower extremity cellulitis 2. ESRD. 3. Severe peripheral vascular disease with left lower extremity ischemia, status post angiogram intervention. 4. Peripheral neuropathy. 5. Depression. 6. Anemia of chronic disease. 7. Hypertension, controlled. 8. DM type II uncontrolled Problems: Additional Assessment/Plan 1. Apply a/b cream on lower extremities 2. Benadryl for itching 3. REmove right chest permacath. Pt has a working fistula 4. called dr Alaniz Consultation Date/Type/Reason Admit Date/Time Nov 13, 2016 at 18:46 Initial Consult Date 11/13/2016 Type of Consultation: nephrology Reason for Consultation Dr Garcia Referring Provider: VIOLET RUDOLPH Exam/Review of Systems Vital Signs Vitals Vital Signs Date Time Temp Pulse Resp B/P Pulse Ox O2 Delivery O2 Flow Rate FiO2 11/15/16 08:03 98.1 73 18 119/52 98 11/14/16 05:59 Room Air Intake and Output 11/14/16 11/14/16 11/15/16 15:00 23:00 07:00 Intake Total 50 ml 1750 ml Balance 50 ml 1750 ml Exam Constitutional: oriented ENMT: other (dry face, itching) Gastrointestinal: soft Musculoskeletal: muscle weakness, swelling (lower extremities) Results Result Diagram: 11/15/16 0554 11/15/16 0521 Results 24 hrs Laboratory Tests Test 11/14/16 17:31 11/14/16 21:05 11/15/16 05:21 11/15/16 05:54 Bedside Glucose 120 83 Sodium Level 139 Potassium Level 4.3 Chloride Level 98 Carbon Dioxide Level 26 Anion Gap 19 H Blood Urea Nitrogen 52 H Creatinine 4.60 #H Glucose Level 83 # Calcium Level 8.6 White Blood Count 4.1 L Red Blood Count 2.84 L Hemoglobin 9.7 L Hematocrit 29.6 L Mean Corpuscular Volume 104.2 H Mean Corpuscular Hemoglobin 34.2 H Mean Corpuscular Hemoglobin Concent 32.8 Red Cell Distribution Width 14.6 H Platelet Count 179 Mean Platelet Volume 11.5 H Neutrophils % 48.2 Lymphocytes % 34.9 Monocytes % 9.9 Eosinophils % 6.5 Basophils % 0.5 Nucleated Red Blood Cells % 0.0 Neutrophils # 2.0 Lymphocytes # 1.4 Monocytes # 0.4 Eosinophils # 0.3 Basophils # 0.0 Nucleated Red Blood Cells # 0.0 Test 11/15/16 08:25 Bedside Glucose 144 Medications Medications Current Medications Alprazolam (Xanax) 0.25 mg TID PRN PO ANXIETY; Start 11/13/16 at 21:30 Amlodipine Besylate (Norvasc) 10 mg DAILY PO Last administered on 11/15/16 10: 53; Admin Dose 10 MG; Start 11/14/16 at 09:00 Aspirin (Halfprin) 81 mg DAILY PO Last administered on 11/15/16 10:53; Admin Dose 81 MG; Start 11/14/16 at 09:00 Atorvastatin Calcium (Lipitor) 40 mg QHS PO Last administered on 11/14/16 21: 06; Admin Dose 40 MG; Start 11/14/16 at 21:00 Carvedilol (Coreg) 6.25 mg DAILY PO Last administered on 11/15/16 10:52; Admin Dose 6.25 MG; Start 11/14/16 at 09:00 Clonidine (Catapres) 0.2 mg TID PRN PO SBP>170; Start 11/13/16 at 21:30 Clopidogrel Bisulfate (plaVIX) 75 mg DAILY PO Last administered on 11/15/16 08 :47; Admin Dose 75 MG; Start 11/14/16 at 09:00 Docusate Sodium (Colace) 100 mg BID PO Last administered on 11/15/16 08:48; Admin Dose 100 MG; Start 11/14/16 at 09:00 Folic Acid (Folic Acid) 1 mg DAILY PO Last administered on 11/15/16 08:47; Admin Dose 1 MG; Start 11/14/16 at 09:00 Gabapentin (Neurontin) 300 mg BID PO Last administered on 11/15/16 08:48; Admin Dose 300 MG; Start 11/14/16 at 09:00 Insulin Glargine (Lantus) 40 unit QHS SC Last administered on 11/14/16 21:27; Admin Dose 40 UNIT; Start 11/14/16 at 00:15 Losartan Potassium (Cozaar) 50 mg DAILY PO Last administered on 11/15/16 10:50 ; Admin Dose 50 MG; Start 11/14/16 at 09:00 Multivit/Ca Carb/ B Cmplx/FA/Prenat (Addie-Mikayla) 1 tab DAILY PO Last administered on 11/15/16 08:47; Admin Dose 1 TAB; Start 11/14/16 at 09:00 Morphine Sulfate (morphine) 2 mg Q6H PRN IV PAIN LEVEL 7-10 Last administered on 11/15/16 08:39; Admin Dose 2 MG; Start 11/13/16 at 21:30 Acetaminophen (Tylenol Tab) 650 mg Q6H PRN PO ELEVATED TEMPERATURE Last administered on 11/14/16 00:57; Admin Dose 650 MG; Start 11/13/16 at 21:30 Miscellaneous Information 1 ea NOTE XX ; Start 11/13/16 at 22:00 Glucose (Glutose) 15 gm Q15M PRN PO DECREASED GLUCOSE; Start 11/13/16 at 22:00 Glucose (Glutose) 22.5 gm Q15M PRN PO DECREASED GLUCOSE; Start 11/13/16 at 22: 00 Dextrose (D50w Syringe) 25 ml Q15M PRN IV DECREASED GLUCOSE; Start 11/13/16 at 22:00 Dextrose (D50w Syringe) 50 ml Q15M PRN IV DECREASED GLUCOSE; Start 11/13/16 at 22:00 Glucagon (Glucagen) 1 mg Q15M PRN IM DECREASED GLUCOSE; Start 11/13/16 at 22:00 Glucose 15 gm 15 gm Q15M PRN BUCCAL DECREASED GLUCOSE; Start 11/13/16 at 22:00 Sodium Chloride (NS) 1,000 ml @ 0 mls/hr Q0M PRN IV TO KEEP SBP ABOVE 90; Start 11/13/16 at 22:30 Diagnostic Test (Pha) (Accu-Chek) 1 ea 02 XX ; Start 11/14/16 at 02:00 Acetaminophen/ Hydrocodone Bitart ([place] (5/325)) 1 tab Q4H PRN PO PAIN LEVEL 4 -6 Last administered on 11/15/16 01:11; Admin Dose 1 TAB; Start 11/14/16 at 13: 00 Linagliptin 5 mg 5 mg DAILY PO Last administered on 11/15/16 08:47; Admin Dose 5 MG; Start 11/14/16 at 12:30 Piperacillin Sod/ Tazobactam Sod (Zosyn 2.25gm/ 50ml (Pmx)) 50 ml @ 100 mls/hr Q12 IVPB Last administered on 11/15/16 10:47; Admin Dose 100 MLS/HR; Start 02/20 at 21:00 Multi-Ingredient Ointment (Eucerin Cream) 1 applic BID PRN TOP DRY SKIN Last administered on 11/14/16 17:50; Admin Dose 1 APPLIC; Start 11/14/16 at 15:30 Diphenhydramine HCl (Benadryl) 25 mg TuThSa PO ; Start 11/15/16 at 15:30 Acetaminophen 325 mg 325 mg TuThSa PO ; Start 11/15/16 at 15:30 Sodium Chloride (NS) 1,000 ml @ 0 mls/hr Q0M PRN IV TO KEEP SBP ABOVE 90; Start 11/14/16 at 16:54 Miscellaneous Information (*Rx Drug Level Order Reminder*) RANDOM VANCOMYCIN LEVEL 8... ONCE ONCE XX ; Start 11/16/16 at 05:00; Stop 11/16/16 at 05:01 KUNAL RAMOS Nov 15, 2016 12:11
--- NOTE | 2016-11-15 13:18 | PN ---
Date/Time of Note Date/Time of Note DATE: 11/15/16 TIME: 13:09 Assessment/Plan VTE Prophylaxis VTE Prophylaxis Intervention: heparin Lines/Catheters IV Catheter Type (from Nrsg): Peripheral IV Assessment/Plan Assessment/Plan -neck pain- radiating to right scapular site - cervical Xray - fu - Left leg cellulitis. Hx Osteomyelitis of the left foot and right foot.CT LLE negative for osteomyelitis - per ID consult -Dr Sheets - Severe peripheral vascular disease status post left lower extremity angiogram and endovascular intervention- BYPASS LT LEG, - Dr Ruano following - Diabetes mellitus - Glycemic control - Renal diet - 1800 randolph ADA diet - Diabetic ulcer of ankle- wound care - Podiatry consult recommended - Peripheral neuropathy - End-stage kidney disease hemodialysis dependent - TTS schedule at [facility] [place] - Nephrology consult- Dr Garcia notified --S/p orthopedic procedures to RUE with metal prosthetic after bone Fx - SP right toe x2 amputation -Obesity - weight management -Hypertension- resume home BP meds - Anemia of chronic disease- monitor H/H - CHF - CAD - Anxiety- no acute issue - Gastritis- cont. Protonix - Hx Osteomyelitis of the left foot and right foot - Chronic pain syndrome - SP RT OVARY removal - Former smoker- reinforce smoking cessation - Heparin for DVT PROPHYLAXIS Further recommendations based on clinical course. Plan of care discussed with Dr. Cordero. Subjective 24 Hr Interval Summary Free Text/Dictation resting, afebrile, had HD this morning, LLE - neg for DVT, Osteomyelitis, ID follows, c/o right neck tenderness, dw staff Respiratory: no complaints Cardiovascular: no complaints Gastrointestinal: no complaints Genitourinary: no complaints Musculoskeletal: back pain, neck pain Skin: erythema Neurologic: no complaints Exam/Review of Systems Vital Signs Vitals Vital Signs Date Time Temp Pulse Resp B/P Pulse Ox O2 Delivery O2 Flow Rate FiO2 11/15/16 08:03 98.1 73 18 119/52 98 11/14/16 05:59 Room Air Intake and Output 11/14/16 11/14/16 11/15/16 15:00 23:00 07:00 Intake Total 50 ml 1750 ml Balance 50 ml 1750 ml Exam Constitutional: alert, oriented, well developed Respiratory: clear to auscultation, normal air movement Cardiovascular: nl pulses, regular rate and rhythm Gastrointestinal: non-tender, soft Musculoskeletal: other (right posterior neck muscle - tenderness noted), swelling (LLE cellulitis) Extremities: other (diminshed pulses sec to edema) Neurological: nl mental status, nl speech Skin: other Results Result Diagram: 11/15/16 0554 11/15/16 0521 Results 24 hrs Laboratory Tests Test 11/14/16 17:31 11/14/16 21:05 11/15/16 05:21 11/15/16 05:54 Bedside Glucose 120 83 Sodium Level 139 Potassium Level 4.3 Chloride Level 98 Carbon Dioxide Level 26 Anion Gap 19 H Blood Urea Nitrogen 52 H Creatinine 4.60 #H Glucose Level 83 # Calcium Level 8.6 White Blood Count 4.1 L Red Blood Count 2.84 L Hemoglobin 9.7 L Hematocrit 29.6 L Mean Corpuscular Volume 104.2 H Mean Corpuscular Hemoglobin 34.2 H Mean Corpuscular Hemoglobin Concent 32.8 Red Cell Distribution Width 14.6 H Platelet Count 179 Mean Platelet Volume 11.5 H Neutrophils % 48.2 Lymphocytes % 34.9 Monocytes % 9.9 Eosinophils % 6.5 Basophils % 0.5 Nucleated Red Blood Cells % 0.0 Neutrophils # 2.0 Lymphocytes # 1.4 Monocytes # 0.4 Eosinophils # 0.3 Basophils # 0.0 Nucleated Red Blood Cells # 0.0 Test 11/15/16 08:25 11/15/16 12:16 Bedside Glucose 144 161 Medications Medications Current Medications Alprazolam (Xanax) 0.25 mg TID PRN PO ANXIETY; Start 11/13/16 at 21:30 Amlodipine Besylate (Norvasc) 10 mg DAILY PO Last administered on 11/15/16 10: 53; Admin Dose 10 MG; Start 11/14/16 at 09:00 Aspirin (Halfprin) 81 mg DAILY PO Last administered on 11/15/16 10:53; Admin Dose 81 MG; Start 11/14/16 at 09:00 Atorvastatin Calcium (Lipitor) 40 mg QHS PO Last administered on 11/14/16 21: 06; Admin Dose 40 MG; Start 11/14/16 at 21:00 Carvedilol (Coreg) 6.25 mg DAILY PO Last administered on 11/15/16 10:52; Admin Dose 6.25 MG; Start 11/14/16 at 09:00 Clonidine (Catapres) 0.2 mg TID PRN PO SBP>170; Start 11/13/16 at 21:30 Clopidogrel Bisulfate (plaVIX) 75 mg DAILY PO Last administered on 11/15/16 08 :47; Admin Dose 75 MG; Start 11/14/16 at 09:00 Docusate Sodium (Colace) 100 mg BID PO Last administered on 11/15/16 08:48; Admin Dose 100 MG; Start 11/14/16 at 09:00 Folic Acid (Folic Acid) 1 mg DAILY PO Last administered on 11/15/16 08:47; Admin Dose 1 MG; Start 11/14/16 at 09:00 Gabapentin (Neurontin) 300 mg BID PO Last administered on 11/15/16 08:48; Admin Dose 300 MG; Start 11/14/16 at 09:00 Insulin Glargine (Lantus) 40 unit QHS SC Last administered on 11/14/16 21:27; Admin Dose 40 UNIT; Start 11/14/16 at 00:15 Losartan Potassium (Cozaar) 50 mg DAILY PO Last administered on 11/15/16 10:50 ; Admin Dose 50 MG; Start 11/14/16 at 09:00 Multivit/Ca Carb/ B Cmplx/FA/Prenat (Addie-Mikayla) 1 tab DAILY PO Last administered on 11/15/16 08:47; Admin Dose 1 TAB; Start 11/14/16 at 09:00 Morphine Sulfate (morphine) 2 mg Q6H PRN IV PAIN LEVEL 7-10 Last administered on 11/15/16 08:39; Admin Dose 2 MG; Start 11/13/16 at 21:30 Acetaminophen (Tylenol Tab) 650 mg Q6H PRN PO ELEVATED TEMPERATURE Last administered on 11/14/16 00:57; Admin Dose 650 MG; Start 11/13/16 at 21:30 Miscellaneous Information 1 ea NOTE XX ; Start 11/13/16 at 22:00 Glucose (Glutose) 15 gm Q15M PRN PO DECREASED GLUCOSE; Start 11/13/16 at 22:00 Glucose (Glutose) 22.5 gm Q15M PRN PO DECREASED GLUCOSE; Start 11/13/16 at 22: 00 Dextrose (D50w Syringe) 25 ml Q15M PRN IV DECREASED GLUCOSE; Start 11/13/16 at 22:00 Dextrose (D50w Syringe) 50 ml Q15M PRN IV DECREASED GLUCOSE; Start 11/13/16 at 22:00 Glucagon (Glucagen) 1 mg Q15M PRN IM DECREASED GLUCOSE; Start 11/13/16 at 22:00 Glucose 15 gm 15 gm Q15M PRN BUCCAL DECREASED GLUCOSE; Start 11/13/16 at 22:00 Sodium Chloride (NS) 1,000 ml @ 0 mls/hr Q0M PRN IV TO KEEP SBP ABOVE 90; Start 11/13/16 at 22:30 Diagnostic Test (Pha) (Accu-Chek) 1 ea 02 XX ; Start 11/14/16 at 02:00 Acetaminophen/ Hydrocodone Bitart ([place] (5/325)) 1 tab Q4H PRN PO PAIN LEVEL 4 -6 Last administered on 11/15/16 01:11; Admin Dose 1 TAB; Start 11/14/16 at 13: 00 Linagliptin 5 mg 5 mg DAILY PO Last administered on 11/15/16 08:47; Admin Dose 5 MG; Start 11/14/16 at 12:30 Piperacillin Sod/ Tazobactam Sod (Zosyn 2.25gm/ 50ml (Pmx)) 50 ml @ 100 mls/hr Q12 IVPB Last administered on 11/15/16 10:47; Admin Dose 100 MLS/HR; Start 02/20 at 21:00 Acetaminophen 325 mg 325 mg TuThSa PO ; Start 11/15/16 at 15:30 Sodium Chloride (NS) 1,000 ml @ 0 mls/hr Q0M PRN IV TO KEEP SBP ABOVE 90; Start 11/14/16 at 16:54 Miscellaneous Information (*Rx Drug Level Order Reminder*) RANDOM VANCOMYCIN LEVEL 8... ONCE ONCE XX ; Start 11/16/16 at 05:00; Stop 11/16/16 at 05:01 Multi-Ingredient Ointment (Eucerin Cream) 1 applic BID TOP ; Start 11/15/16 at 21:00 Diphenhydramine HCl (Benadryl) 50 mg Q8 PO ; Start 11/15/16 at 14:00 Bacitracin (Bacitracin 0.5%/ Zinc Oint) 1 applic BID TOP ; Start 11/15/16 at 21: 00 Procedures Procedures PROCEDURE: CT left femur without contrast CLINICAL INDICATION: 56 years female rule out osteomyelitis of the left lower extremity COMPARISON: None. IMPRESSION: Edema in the superficial fascial compartment greatest at the ankle and over the distal tibia and fibula is nonspecific and may be seen with cellulitis or venous insufficiency. Negative for abnormal soft tissue gas. Negative for bony destruction or periosteal reaction to indicate osteomyelitis. Extensive atherosclerosis with femoral popliteal bypass graft. Patency of the arteries, graft and veins cannot be evaluated without intravenous contrast. VIOLET RUDOLPH Nov 15, 2016 13:18
[2016-11-15] MEDS: DIPHENHYDRAMINE 50 MG CAP PO SCH ×2 (14:04→22:36)
[2016-11-15] MEDS ORDERED: CYCLOBENZAPRINE 10 MG TAB PO ONE (15:00)
[2016-11-15] MEDS ORDERED: DIPHENHYDRAMINE 25 MG CAP PO SCH (15:30)
[2016-11-15] MEDS: ACETAMINOPHEN 325 MG TAB PO SCH (15:30)
--- NOTE | 2016-11-15 16:36 | CONS ---
Date/Time of Note Date/Time of Note DATE: 11/15/16 TIME: 16:33 Assessment/Plan Assessment/Plan Chief Complaint/Hosp Course assessment/impression - skin and soft tissue infection of LLE with eschar. CT was negative for osteomyelitis - pain of LLE likely multifactorial: skin and soft tissue infection, PVD - PVD - s/p bypass of LLE - DM - h/o OM of b/l feet, s/p amputation of R two toes - diabetic neuropathy - ESRD on HD via permacath on R chest wall 3 times a week - Anemia of chronic disease - CHF and CAD - s/p orthopedic procedures to RUE with metal prosthetic after bone Fx - dry skin and pruritis, which started prior to admission - possible red man syndrome due to vancomycin recommendations - continue renally dosed vancomycin (11/13/2016-) with premedication protocol: benadrl and tylenol 30 min prior to infusion, and extended infusion time of 2 hrs - OK to d/c renally dosed pip/tazo - eucerin cream for dry skin management d/w Pt and her RN Problems: Consultation Date/Type/Reason Admit Date/Time Nov 13, 2016 at 18:46 Initial Consult Date 11/14/16 Type of Consultation: ID Referring Provider: VIOLET RUDOLPH 24 HR Interval Summary Constitutional: improved Detailed Summary Eyes: no complaints ENT: no complaints Respiratory: no complaints Cardiovascular: no complaints Gastrointestinal: no complaints Musculoskeletal: back pain, bone/joint pain (LLE) Skin: skin lesions (eschar of LLE) Neurologic: no complaints Exam/Review of Systems Vital Signs Vitals Vital Signs Date Time Temp Pulse Resp B/P Pulse Ox O2 Delivery O2 Flow Rate FiO2 11/15/16 14:13 98.5 67 18 122/54 98 11/14/16 05:59 Room Air Intake and Output 11/14/16 11/14/16 11/15/16 15:00 23:00 07:00 Intake Total 50 ml 1750 ml Balance 50 ml 1750 ml Exam Constitutional: alert, oriented, well developed Psych: nl mood/affect, no complaints Results Result Diagram: 11/15/16 0554 11/15/16 0521 Results 24 hrs Laboratory Tests Test 11/14/16 17:31 11/14/16 21:05 11/15/16 05:21 11/15/16 05:54 Bedside Glucose 120 83 Sodium Level 139 Potassium Level 4.3 Chloride Level 98 Carbon Dioxide Level 26 Anion Gap 19 H Blood Urea Nitrogen 52 H Creatinine 4.60 #H Glucose Level 83 # Calcium Level 8.6 White Blood Count 4.1 L Red Blood Count 2.84 L Hemoglobin 9.7 L Hematocrit 29.6 L Mean Corpuscular Volume 104.2 H Mean Corpuscular Hemoglobin 34.2 H Mean Corpuscular Hemoglobin Concent 32.8 Red Cell Distribution Width 14.6 H Platelet Count 179 Mean Platelet Volume 11.5 H Neutrophils % 48.2 Lymphocytes % 34.9 Monocytes % 9.9 Eosinophils % 6.5 Basophils % 0.5 Nucleated Red Blood Cells % 0.0 Neutrophils # 2.0 Lymphocytes # 1.4 Monocytes # 0.4 Eosinophils # 0.3 Basophils # 0.0 Nucleated Red Blood Cells # 0.0 Test 11/15/16 08:25 11/15/16 12:16 Bedside Glucose 144 161 Medications Medications Current Medications Alprazolam (Xanax) 0.25 mg TID PRN PO ANXIETY; Start 11/13/16 at 21:30 Amlodipine Besylate (Norvasc) 10 mg DAILY PO Last administered on 11/15/16 10: 53; Admin Dose 10 MG; Start 11/14/16 at 09:00 Aspirin (Halfprin) 81 mg DAILY PO Last administered on 11/15/16 10:53; Admin Dose 81 MG; Start 11/14/16 at 09:00 Atorvastatin Calcium (Lipitor) 40 mg QHS PO Last administered on 11/14/16 21: 06; Admin Dose 40 MG; Start 11/14/16 at 21:00 Carvedilol (Coreg) 6.25 mg DAILY PO Last administered on 11/15/16 10:52; Admin Dose 6.25 MG; Start 11/14/16 at 09:00 Clonidine (Catapres) 0.2 mg TID PRN PO SBP>170; Start 11/13/16 at 21:30 Clopidogrel Bisulfate (plaVIX) 75 mg DAILY PO Last administered on 11/15/16 08 :47; Admin Dose 75 MG; Start 11/14/16 at 09:00 Docusate Sodium (Colace) 100 mg BID PO Last administered on 11/15/16 08:48; Admin Dose 100 MG; Start 11/14/16 at 09:00 Folic Acid (Folic Acid) 1 mg DAILY PO Last administered on 11/15/16 08:47; Admin Dose 1 MG; Start 11/14/16 at 09:00 Gabapentin (Neurontin) 300 mg BID PO Last administered on 11/15/16 08:48; Admin Dose 300 MG; Start 11/14/16 at 09:00 Insulin Glargine (Lantus) 40 unit QHS SC Last administered on 11/14/16 21:27; Admin Dose 40 UNIT; Start 11/14/16 at 00:15 Losartan Potassium (Cozaar) 50 mg DAILY PO Last administered on 11/15/16 10:50 ; Admin Dose 50 MG; Start 11/14/16 at 09:00 Multivit/Ca Carb/ B Cmplx/FA/Prenat (Addie-Mikayla) 1 tab DAILY PO Last administered on 11/15/16 08:47; Admin Dose 1 TAB; Start 11/14/16 at 09:00 Morphine Sulfate (morphine) 2 mg Q6H PRN IV PAIN LEVEL 7-10 Last administered on 11/15/16 15:07; Admin Dose 2 MG; Start 11/13/16 at 21:30 Acetaminophen (Tylenol Tab) 650 mg Q6H PRN PO ELEVATED TEMPERATURE Last administered on 11/14/16 00:57; Admin Dose 650 MG; Start 11/13/16 at 21:30 Miscellaneous Information 1 ea NOTE XX ; Start 11/13/16 at 22:00 Glucose (Glutose) 15 gm Q15M PRN PO DECREASED GLUCOSE; Start 11/13/16 at 22:00 Glucose (Glutose) 22.5 gm Q15M PRN PO DECREASED GLUCOSE; Start 11/13/16 at 22: 00 Dextrose (D50w Syringe) 25 ml Q15M PRN IV DECREASED GLUCOSE; Start 11/13/16 at 22:00 Dextrose (D50w Syringe) 50 ml Q15M PRN IV DECREASED GLUCOSE; Start 11/13/16 at 22:00 Glucagon (Glucagen) 1 mg Q15M PRN IM DECREASED GLUCOSE; Start 11/13/16 at 22:00 Glucose 15 gm 15 gm Q15M PRN BUCCAL DECREASED GLUCOSE; Start 11/13/16 at 22:00 Sodium Chloride (NS) 1,000 ml @ 0 mls/hr Q0M PRN IV TO KEEP SBP ABOVE 90; Start 11/13/16 at 22:30 Diagnostic Test (Pha) (Accu-Chek) 1 ea 02 XX ; Start 11/14/16 at 02:00 Acetaminophen/ Hydrocodone Bitart ([place] (5/325)) 1 tab Q4H PRN PO PAIN LEVEL 4 -6 Last administered on 11/15/16 01:11; Admin Dose 1 TAB; Start 11/14/16 at 13: 00 Linagliptin 5 mg 5 mg DAILY PO Last administered on 11/15/16 08:47; Admin Dose 5 MG; Start 11/14/16 at 12:30 Piperacillin Sod/ Tazobactam Sod (Zosyn 2.25gm/ 50ml (Pmx)) 50 ml @ 100 mls/hr Q12 IVPB Last administered on 11/15/16 10:47; Admin Dose 100 MLS/HR; Start 02/20 at 21:00 Acetaminophen 325 mg 325 mg TuThSa PO ; Start 11/15/16 at 15:30 Sodium Chloride (NS) 1,000 ml @ 0 mls/hr Q0M PRN IV TO KEEP SBP ABOVE 90; Start 11/14/16 at 16:54 Miscellaneous Information (*Rx Drug Level Order Reminder*) RANDOM VANCOMYCIN LEVEL 8... ONCE ONCE XX ; Start 11/16/16 at 05:00; Stop 11/16/16 at 05:01 Multi-Ingredient Ointment (Eucerin Cream) 1 applic BID TOP ; Start 11/15/16 at 21:00 Diphenhydramine HCl (Benadryl) 50 mg Q8 PO Last administered on 11/15/16 14:04 ; Admin Dose 50 MG; Start 11/15/16 at 14:00 Bacitracin (Bacitracin 0.5%/ Zinc Oint) 1 applic BID TOP ; Start 11/15/16 at 21: 00 Cyclobenzaprine HCl (Flexeril) 5 mg TID PO ; Start 11/15/16 at 21:00 ALEXANDER MARTÍNEZ M.D. Nov 15, 2016 16:36
[2016-11-15] MEDS: ATORVASTATIN 40 MG TAB PO SCH (20:18)
[2016-11-15] MEDS: BACITRACIN 0.5%/ZINC 28.35 GM OINT TOP SCH (20:18)
[2016-11-15] MEDS: EUCERIN 113 GM CR TOP SCH (21:00)
[2016-11-15] MEDS: CYCLOBENZAPRINE 10 MG TAB PO SCH (21:00)
[2016-11-15] MEDS: INSULIN GLARGINE [LANtus] 3 ML PEN SC SCH (21:00)
[2016-11-16] MEDS: ACCU-CHEK XX SCH (02:00)
[2016-11-16] MEDS: morphine 2 MG INJ IV PRN ×3 (05:28→19:46)
[2016-11-16 06:04] LABS: BASOPHILS % 0.5 % (0.0-2.0); EOSINOPHILS # 0.2 10^3/ul (0.0-0.5); EOSINOPHILS % 6.1 % (0.0-7.0); HEMOGLOBIN 8.6 g/dl (12.0-16.0); LYMPHOCYTES # 1.6 10^3/ul (0.8-2.9); LYMPHOCYTES % 41.5 % (15.0-51.0); MEAN CORPUSCULAR HEMOGLOBIN 32.8 pg (29.0-33.0); MEAN CORPUSCULAR HGB CONC 30.7 g/dl (32.0-37.0); MEAN CORPUSCULAR VOLUME 106.9 fl (82.0-101.0); MONOCYTE # 0.4 10^3/ul (0.3-0.9); MONOCYTES % 11.4 % (0.0-11.0); NEUTROPHIL # 1.5 10^3/ul (1.6-7.5); NEUTROPHILS % 40.2 % (39.0-77.0); PLATELET COUNT 214 10^3/UL (140-415); RED BLOOD COUNT 2.62 10^6/ul (4.20-5.40); RED CELL DISTRIBUTION WIDTH 14.5 % (11.5-14.5); WHITE BLOOD COUNT 3.8 10^3/ul (4.8-10.8)
[2016-11-16 06:34] LABS: CALCIUM 8.3 mg/dl (8.4-10.2); CREATININE 3.93 mg/dl (0.44-1.00); POTASSIUM 4.3 mmol/L (3.5-5.1)
[2016-11-16] MEDS: FUROSEMIDE 40 MG TAB PO SCH ×2 (06:46→17:58)
[2016-11-16] MEDS: DIPHENHYDRAMINE 50 MG CAP PO SCH ×3 (06:46→22:13)
[2016-11-16 08:05] VITALS: BP 177/73; RESP 18
[2016-11-16] MEDS: SEVELAMER CARBONATE 0.8 GM PKT PO SCH ×3 (08:17→17:55)
[2016-11-16] MEDS: LINAGLIPTIN 5 MG TABLET PO SCH (08:18)
[2016-11-16] MEDS: FOLIC ACID 1 MG TAB PO SCH (08:18)
[2016-11-16] MEDS: DOCUSATE SODIUM 100 MG CAP PO SCH ×2 (08:18→20:29)
[2016-11-16] MEDS: BACITRACIN 0.5%/ZINC 28.35 GM OINT TOP SCH ×2 (08:18→20:29)
[2016-11-16] MEDS: PANTOPRAZOLE (EC) 40 MG TAB PO SCH (08:18)
[2016-11-16] MEDS: LOSARTAN 50 MG TAB PO SCH (08:18)
[2016-11-16] MEDS: ASPIRIN (EC) 81 MG TAB PO SCH (08:18)
[2016-11-16] MEDS: AMLODIPINE 10 MG TAB PO SCH (08:18)
[2016-11-16] MEDS: CYCLOBENZAPRINE 10 MG TAB PO SCH ×3 (08:19→17:55)
[2016-11-16] MEDS: MULTIVIT/CA CARB/B CMPLX/FA TAB PO SCH (08:19)
[2016-11-16] MEDS: GABAPENTIN 300 MG CAP PO SCH ×2 (08:19→20:29)
[2016-11-16] MEDS: CLOPIDOGREL 75 MG TAB PO SCH (08:19)
[2016-11-16] MEDS: INSULIN ASPART [NOVOLOG] 3 ML PEN SC SCH ×7 (08:31→20:29)
[2016-11-16] MEDS: EUCERIN 113 GM CR TOP SCH ×2 (08:32→20:33)
--- NOTE | 2016-11-16 10:52 | CONS ---
ANTHONY MONTOYA 11/16/16 1052: Date/Time of Note Date/Time of Note DATE: 11/16/16 TIME: 10:51 Assessment/Plan Assessment/Plan Additional Assessment/Plan - skin and soft tissue infection of LLE with eschar. CT was negative for osteomyelitis--clinically improved; continue current Tx(Vanco IV) - pain of LLE likely multifactorial: skin and soft tissue infection, PVD - PVD - s/p bypass of LLE - DM - h/o OM of b/l feet, s/p amputation of R two toes - diabetic neuropathy - ESRD on HD via permacath on R chest wall 3 times a week - Anemia of chronic disease - CHF and CAD - s/p orthopedic procedures to RUE with metal prosthetic after bone Fx - dry skin and pruritis, which started prior to admission - possible red man syndrome due to vancomycin recommendations - continue renally dosed vancomycin (11/13/2016-) with premedication protocol: benadrl and tylenol 30 min prior to infusion, and extended infusion time of 2 hrs - OK to d/c renally dosed pip/tazo - eucerin cream for dry skin management d/w Pt and Dr Sheets Consultation Date/Type/Reason Admit Date/Time Nov 13, 2016 at 18:46 Initial Consult Date 11/14/16 Type of Consultation: ID Referring Provider: VIOLET RUDOLPH 24 HR Interval Summary Free Text/Dictation Alert, NAD. Feels better. No n/v/d, chills, fever, sweats, SOB, cough. Dec in errythema, pain and edema of LLE Constitutional: improved, no complaints Exam/Review of Systems Vital Signs Vitals Vital Signs Date Time Temp Pulse Resp B/P Pulse Ox O2 Delivery O2 Flow Rate FiO2 11/16/16 08:05 97.9 70 18 177/73 98 11/14/16 05:59 Room Air Intake and Output 11/15/16 11/15/16 11/16/16 15:00 23:00 07:00 Intake Total 1150 ml 680 ml Output Total 3000 ml Balance -1850 ml 680 ml Exam Constitutional: alert, obese, oriented Psych: nl mood/affect, no complaints Head: atraumatic, normocephalic Eyes: EOMI, nl conjunctiva, nl lids ENMT: nl external ears & nose Neck: non-tender, supple Respiratory: clear to auscultation, normal air movement Cardiovascular: regular rate and rhythm Gastrointestinal: bowel sounds, non-tender, soft Neurological: nl mental status, nl speech Results Result Diagram: 11/16/1651111/16/1612 Results 24 hrs Laboratory Tests Test 11/15/16 12:16 11/15/16 17:38 11/15/16 20:36 11/15/16 20:50 Bedside Glucose 161 98 80 Glucose Level 62 #L Test 11/15/16 21:22 11/16/16 05:12 11/16/16 05:34 11/16/16 08:17 Bedside Glucose 81 222 H 171 White Blood Count 3.8 L Red Blood Count 2.62 L Hemoglobin 8.6 L Hematocrit 28.0 L Mean Corpuscular Volume 106.9 H Mean Corpuscular Hemoglobin 32.8 Mean Corpuscular Hemoglobin Concent 30.7 L Red Cell Distribution Width 14.5 Platelet Count 214 Mean Platelet Volume 11.0 H Neutrophils % 40.2 Lymphocytes % 41.5 Monocytes % 11.4 H Eosinophils % 6.1 Basophils % 0.5 Nucleated Red Blood Cells % 0.0 Neutrophils # 1.5 L Lymphocytes # 1.6 Monocytes # 0.4 Eosinophils # 0.2 Basophils # 0.0 Nucleated Red Blood Cells # 0.0 Sodium Level 140 Potassium Level 4.3 Chloride Level 96 L Carbon Dioxide Level 29 Anion Gap 19 H Blood Urea Nitrogen 39 #H Creatinine 3.93 H Glucose Level 221 #H Calcium Level 8.3 L Random Vancomycin Level 12.4 Medications Medications Current Medications Alprazolam (Xanax) 0.25 mg TID PRN PO ANXIETY; Start 11/13/16 at 21:30 Amlodipine Besylate (Norvasc) 10 mg DAILY PO Last administered on 11/16/16 08: 18; Admin Dose 10 MG; Start 11/14/16 at 09:00 Aspirin (Halfprin) 81 mg DAILY PO Last administered on 11/16/16 08:18; Admin Dose 81 MG; Start 11/14/16 at 09:00 Atorvastatin Calcium (Lipitor) 40 mg QHS PO Last administered on 11/15/16 20: 18; Admin Dose 40 MG; Start 11/14/16 at 21:00 Carvedilol (Coreg) 6.25 mg DAILY PO Last administered on 11/16/16 08:18; Admin Dose 6.25 MG; Start 11/14/16 at 09:00 Clonidine (Catapres) 0.2 mg TID PRN PO SBP>170; Start 11/13/16 at 21:30 Clopidogrel Bisulfate (plaVIX) 75 mg DAILY PO Last administered on 11/16/16 08 :19; Admin Dose 75 MG; Start 11/14/16 at 09:00 Docusate Sodium (Colace) 100 mg BID PO Last administered on 11/16/16 08:18; Admin Dose 100 MG; Start 11/14/16 at 09:00 Folic Acid (Folic Acid) 1 mg DAILY PO Last administered on 11/16/16 08:18; Admin Dose 1 MG; Start 11/14/16 at 09:00 Gabapentin (Neurontin) 300 mg BID PO Last administered on 11/16/16 08:19; Admin Dose 300 MG; Start 11/14/16 at 09:00 Losartan Potassium (Cozaar) 50 mg DAILY PO Last administered on 11/16/16 08:18 ; Admin Dose 50 MG; Start 11/14/16 at 09:00 Multivit/Ca Carb/ B Cmplx/FA/Prenat (Addie-Mikayla) 1 tab DAILY PO Last administered on 11/16/16 08:19; Admin Dose 1 TAB; Start 11/14/16 at 09:00 Morphine Sulfate (morphine) 2 mg Q6H PRN IV PAIN LEVEL 7-10 Last administered on 11/16/16 05:28; Admin Dose 2 MG; Start 11/13/16 at 21:30 Acetaminophen (Tylenol Tab) 650 mg Q6H PRN PO ELEVATED TEMPERATURE Last administered on 11/14/16 00:57; Admin Dose 650 MG; Start 11/13/16 at 21:30 Miscellaneous Information 1 ea NOTE XX ; Start 11/13/16 at 22:00 Glucose (Glutose) 15 gm Q15M PRN PO DECREASED GLUCOSE; Start 11/13/16 at 22:00 Glucose (Glutose) 22.5 gm Q15M PRN PO DECREASED GLUCOSE; Start 11/13/16 at 22: 00 Dextrose (D50w Syringe) 25 ml Q15M PRN IV DECREASED GLUCOSE; Start 11/13/16 at 22:00 Dextrose (D50w Syringe) 50 ml Q15M PRN IV DECREASED GLUCOSE; Start 11/13/16 at 22:00 Glucagon (Glucagen) 1 mg Q15M PRN IM DECREASED GLUCOSE; Start 11/13/16 at 22:00 Glucose 15 gm 15 gm Q15M PRN BUCCAL DECREASED GLUCOSE; Start 11/13/16 at 22:00 Sodium Chloride (NS) 1,000 ml @ 0 mls/hr Q0M PRN IV TO KEEP SBP ABOVE 90; Start 11/13/16 at 22:30 Diagnostic Test (Pha) (Accu-Chek) 1 ea 02 XX ; Start 11/14/16 at 02:00 Acetaminophen/ Hydrocodone Bitart ([place] (5/325)) 1 tab Q4H PRN PO PAIN LEVEL 4 -6 Last administered on 11/15/16 20:17; Admin Dose 1 TAB; Start 11/14/16 at 13: 00 Linagliptin (Tradjenta) 5 mg DAILY PO Last administered on 11/16/16 08:18; Admin Dose 5 MG; Start 11/14/16 at 12:30 Acetaminophen 325 mg 325 mg TuThSa PO ; Start 11/15/16 at 15:30 Sodium Chloride (NS) 1,000 ml @ 0 mls/hr Q0M PRN IV TO KEEP SBP ABOVE 90; Start 11/14/16 at 16:54 Multi-Ingredient Ointment (Eucerin Cream) 1 applic BID TOP Last administered on 11/16/16 08:32; Admin Dose 1 APPLIC; Start 11/15/16 at 21:00 Diphenhydramine HCl (Benadryl) 50 mg Q8 PO Last administered on 11/16/16 06:46 ; Admin Dose 50 MG; Start 11/15/16 at 14:00 Bacitracin (Bacitracin 0.5%/ Zinc Oint) 1 applic BID TOP Last administered on 08:18; Admin Dose 1 APPLIC; Start 11/15/16 at 21:00 Cyclobenzaprine HCl (Flexeril) 5 mg TID PO Last administered on 11/16/16 08:19 ; Admin Dose 5 MG; Start 11/15/16 at 21:00 Insulin Glargine 30 unit 30 unit HS SC ; Start 11/16/16 at 21:00 Vancomycin HCl/ Sodium Chloride (Vancocin/NS) 250 ml @ 83.333 mls/ hr 12 IVPB ; Start 11/16/16 at 12:00; Stop 11/16/16 at 22:00 Diphenhydramine HCl (Benadryl) 25 mg 1130 PO ; Start 11/16/16 at 11:30; Stop at 20:00 Acetaminophen (Tylenol Tab) 325 mg 1130 PO ; Start 11/16/16 at 11:30; Stop 11/16 at 19:00 ALEXANDER SHEETS M.D. 11/17/16 1153: Assessment/Plan Assessment/Plan Additional Assessment/Plan [place] attestation: I discussed the management with CURLY Montoya and agree with above. Exam/Review of Systems Results Result Diagram: 11/16/1612 11/16/16 0512 ANTHONY MONTOYA Nov 16, 2016 10:52 ALEXANDER SHEETS M.D. Nov 17, 2016 11:53
[2016-11-16] MEDS ORDERED: DIPHENHYDRAMINE 25 MG CAP PO SCH (11:30)
[2016-11-16] MEDS ORDERED: ACETAMINOPHEN 325 MG TAB PO SCH (11:30)
--- NOTE | 2016-11-16 11:53 | RADRPT ---
PROCEDURE: XR Cervical Spine. CLINICAL INDICATION: Neck pain TECHNIQUE: Three views of the cervical spine were performed. The images were reviewed on a PACS wo [employer]. COMPARISON: None. FINDINGS: There is straightening of the normal cervical lordosis. There is no acute fracture or dislocation. There are multilevel moderate degenerative changes of cervical spine with decreased disk spaces and osteophytosis most pronounced at C5-C6 and C6-C7. The prevertebral soft tissues are normal. Partially visualized right-sided venous catheter is noted. IMPRESSION: 1. No acute fracture or traumatic subluxation. 2. Multilevel moderate spondylosis of cervical spine, most pronounced at C5-C6 and C6-C7. 3. Straightening of the normal cervical lordosis. RPTAT: QQ .Nadia Key MD, Date Time Electronically viewed and signed by .Nadia Key MD, on 11/16/2016 11:53 .N/
[2016-11-16] MEDS ORDERED: VANCOMYCIN 1.25 GM in SOD CHLORIDE 0.9% 250 ML IVPB SCH (12:00)
[2016-11-16 14:06] VITALS: BP 118/53; RESP 18
--- NOTE | 2016-11-16 16:23 | CONS ---
Date/Time of Note Date/Time of Note DATE: 11/16/16 TIME: 16:22 Assessment/Plan Assessment/Plan Chief Complaint/Hosp Course A/P LEG CELLULITES ESRD DM HTN PLAN CONTINUE GD Problems: Consultation Date/Type/Reason Admit Date/Time Nov 13, 2016 at 18:46 Initial Consult Date 11/14/16 Type of Consultation: RENAL Referring Provider: VIOLET RUDOLPH 24 HR Interval Summary Constitutional: no complaints Exam/Review of Systems Vital Signs Vitals Vital Signs Date Time Temp Pulse Resp B/P Pulse Ox O2 Delivery O2 Flow Rate FiO2 11/16/16 14:06 98.1 70 18 118/53 97 11/14/16 05:59 Room Air Intake and Output 11/15/16 11/15/16 11/16/16 15:00 23:00 07:00 Intake Total 1150 ml 680 ml Output Total 3000 ml Balance -1850 ml 680 ml Exam Neck: supple Respiratory: clear to auscultation Cardiovascular: regular rate and rhythm Gastrointestinal: soft Musculoskeletal: nl extremities to inspection Extremities: edema (+) Results Result Diagram: 11/16/16 0512 11/16/16 0512 Results 24 hrs Laboratory Tests Test 11/15/16 17:38 11/15/16 20:36 11/15/16 20:50 11/15/16 21:22 Bedside Glucose 98 80 81 Glucose Level 62 #L Test 11/16/16 05:12 11/16/16 05:34 11/16/16 08:17 11/16/16 11:57 White Blood Count 3.8 L Red Blood Count 2.62 L Hemoglobin 8.6 L Hematocrit 28.0 L Mean Corpuscular Volume 106.9 H Mean Corpuscular Hemoglobin 32.8 Mean Corpuscular Hemoglobin Concent 30.7 L Red Cell Distribution Width 14.5 Platelet Count 214 Mean Platelet Volume 11.0 H Neutrophils % 40.2 Lymphocytes % 41.5 Monocytes % 11.4 H Eosinophils % 6.1 Basophils % 0.5 Nucleated Red Blood Cells % 0.0 Neutrophils # 1.5 L Lymphocytes # 1.6 Monocytes # 0.4 Eosinophils # 0.2 Basophils # 0.0 Nucleated Red Blood Cells # 0.0 Sodium Level 140 Potassium Level 4.3 Chloride Level 96 L Carbon Dioxide Level 29 Anion Gap 19 H Blood Urea Nitrogen 39 #H Creatinine 3.93 H Glucose Level 221 #H Calcium Level 8.3 L Random Vancomycin Level 12.4 Bedside Glucose 222 H 171 180 Medications Medications Current Medications Alprazolam (Xanax) 0.25 mg TID PRN PO ANXIETY; Start 11/13/16 at 21:30 Amlodipine Besylate (Norvasc) 10 mg DAILY PO Last administered on 11/16/16 08: 18; Admin Dose 10 MG; Start 11/14/16 at 09:00 Aspirin (Halfprin) 81 mg DAILY PO Last administered on 11/16/16 08:18; Admin Dose 81 MG; Start 11/14/16 at 09:00 Atorvastatin Calcium (Lipitor) 40 mg QHS PO Last administered on 11/15/16 20: 18; Admin Dose 40 MG; Start 11/14/16 at 21:00 Carvedilol (Coreg) 6.25 mg DAILY PO Last administered on 11/16/16 08:18; Admin Dose 6.25 MG; Start 11/14/16 at 09:00 Clonidine (Catapres) 0.2 mg TID PRN PO SBP>170; Start 11/13/16 at 21:30 Clopidogrel Bisulfate (plaVIX) 75 mg DAILY PO Last administered on 11/16/16 08 :19; Admin Dose 75 MG; Start 11/14/16 at 09:00 Docusate Sodium (Colace) 100 mg BID PO Last administered on 11/16/16 08:18; Admin Dose 100 MG; Start 11/14/16 at 09:00 Folic Acid (Folic Acid) 1 mg DAILY PO Last administered on 11/16/16 08:18; Admin Dose 1 MG; Start 11/14/16 at 09:00 Gabapentin (Neurontin) 300 mg BID PO Last administered on 11/16/16 08:19; Admin Dose 300 MG; Start 11/14/16 at 09:00 Losartan Potassium (Cozaar) 50 mg DAILY PO Last administered on 11/16/16 08:18 ; Admin Dose 50 MG; Start 11/14/16 at 09:00 Multivit/Ca Carb/ B Cmplx/FA/Prenat (Addie-Mikayla) 1 tab DAILY PO Last administered on 11/16/16 08:19; Admin Dose 1 TAB; Start 11/14/16 at 09:00 Morphine Sulfate (morphine) 2 mg Q6H PRN IV PAIN LEVEL 7-10 Last administered on 11/16/16 11:47; Admin Dose 2 MG; Start 11/13/16 at 21:30 Acetaminophen (Tylenol Tab) 650 mg Q6H PRN PO ELEVATED TEMPERATURE Last administered on 11/14/16 00:57; Admin Dose 650 MG; Start 11/13/16 at 21:30 Miscellaneous Information 1 ea NOTE XX ; Start 11/13/16 at 22:00 Glucose (Glutose) 15 gm Q15M PRN PO DECREASED GLUCOSE; Start 11/13/16 at 22:00 Glucose (Glutose) 22.5 gm Q15M PRN PO DECREASED GLUCOSE; Start 11/13/16 at 22: 00 Dextrose (D50w Syringe) 25 ml Q15M PRN IV DECREASED GLUCOSE; Start 11/13/16 at 22:00 Dextrose (D50w Syringe) 50 ml Q15M PRN IV DECREASED GLUCOSE; Start 11/13/16 at 22:00 Glucagon (Glucagen) 1 mg Q15M PRN IM DECREASED GLUCOSE; Start 11/13/16 at 22:00 Glucose 15 gm 15 gm Q15M PRN BUCCAL DECREASED GLUCOSE; Start 11/13/16 at 22:00 Sodium Chloride (NS) 1,000 ml @ 0 mls/hr Q0M PRN IV TO KEEP SBP ABOVE 90; Start 11/13/16 at 22:30 Diagnostic Test (Pha) (Accu-Chek) 1 ea 02 XX ; Start 11/14/16 at 02:00 Acetaminophen/ Hydrocodone Bitart ([place] (5/325)) 1 tab Q4H PRN PO PAIN LEVEL 4 -6 Last administered on 11/15/16 20:17; Admin Dose 1 TAB; Start 11/14/16 at 13: 00 Linagliptin (Tradjenta) 5 mg DAILY PO Last administered on 11/16/16 08:18; Admin Dose 5 MG; Start 11/14/16 at 12:30 Acetaminophen 325 mg 325 mg TuThSa PO ; Start 11/15/16 at 15:30 Sodium Chloride (NS) 1,000 ml @ 0 mls/hr Q0M PRN IV TO KEEP SBP ABOVE 90; Start 11/14/16 at 16:54 Multi-Ingredient Ointment (Eucerin Cream) 1 applic BID TOP Last administered on 11/16/16 08:32; Admin Dose 1 APPLIC; Start 11/15/16 at 21:00 Diphenhydramine HCl (Benadryl) 50 mg Q8 PO Last administered on 11/16/16 13:49 ; Admin Dose 50 MG; Start 11/15/16 at 14:00 Bacitracin (Bacitracin 0.5%/ Zinc Oint) 1 applic BID TOP Last administered on 08:18; Admin Dose 1 APPLIC; Start 11/15/16 at 21:00 Cyclobenzaprine HCl (Flexeril) 5 mg TID PO Last administered on 11/16/16 13:49 ; Admin Dose 5 MG; Start 11/15/16 at 21:00 Insulin Glargine 30 unit 30 unit HS SC ; Start 11/16/16 at 21:00 Vancomycin HCl/ Sodium Chloride (Vancocin/NS) 250 ml @ 83.333 mls/ hr 12 IVPB Last administered on 11/16/16 11:55; Admin Dose 83.333 MLS/HR; Start 11/16/16 at 12:00; Stop 11/16/16 at 22:00 Diphenhydramine HCl (Benadryl) 25 mg 1130 PO Last administered on 11/16/16 11: 46; Admin Dose 25 MG; Start 11/16/16 at 11:30; Stop 11/16/16 at 20:00 Acetaminophen (Tylenol Tab) 325 mg 1130 PO Last administered on 11/16/16 11:46 ; Admin Dose 325 MG; Start 11/16/16 at 11:30; Stop 11/16/16 at 19:00 ZOFIA REAL MD Nov 16, 2016 16:23
--- NOTE | 2016-11-16 16:26 | PN ---
Date/Time of Note Date/Time of Note DATE: 11/16/16 TIME: 16:21 Assessment/Plan VTE Prophylaxis VTE Prophylaxis Intervention: other Lines/Catheters IV Catheter Type (from Nrsg): Saline Lock Assessment/Plan Assessment/Plan -neck pain- radiating to right scapular site - cervical Xray - fu - Left leg cellulitis. Hx Osteomyelitis of the left foot and right foot.CT LLE negative for osteomyelitis - per ID consult -Dr Sheets - Severe peripheral vascular disease status post left lower extremity angiogram and endovascular intervention- BYPASS LT LEG, - Dr Ruano following - Diabetes mellitus - Glycemic control - Renal diet - 1800 randolph ADA diet - Diabetic ulcer of ankle- wound care - Podiatry consult recommended - Peripheral neuropathy - End-stage kidney disease hemodialysis dependent - TTS schedule at [facility] - Nephrology consult- Dr Garcia notified --S/p orthopedic procedures to RUE with metal prosthetic after bone Fx - SP right toe x2 amputation -Obesity - weight management -Hypertension- resume home BP meds - Anemia of chronic disease- monitor H/H - CHF - CAD - Anxiety- no acute issue - Gastritis- cont. Protonix - Hx Osteomyelitis of the left foot and right foot - Chronic pain syndrome - SP RT OVARY removal - Former smoker- reinforce smoking cessation - Heparin for DVT PROPHYLAXIS Further recommendations based on clinical course. Plan of care discussed with Dr. Cordero. Subjective 24 Hr Interval Summary Free Text/Dictation resting, afebrile, had HD yesterday, C/O LLE pain - neg for DVT, Osteomyelitis , ID follows, right neck pain is resolved. dw staff Respiratory: no complaints Cardiovascular: no complaints Gastrointestinal: no complaints Genitourinary: no complaints Musculoskeletal: other (C/O LLE pain) Skin: erythema Neurologic: no complaints Exam/Review of Systems Vital Signs Vitals Vital Signs Date Time Temp Pulse Resp B/P Pulse Ox O2 Delivery O2 Flow Rate FiO2 11/16/16 14:06 98.1 70 18 118/53 97 11/14/16 05:59 Room Air Intake and Output 11/15/16 11/15/16 11/16/16 15:00 23:00 07:00 Intake Total 1150 ml 680 ml Output Total 3000 ml Balance -1850 ml 680 ml Exam Constitutional: alert, oriented, well developed Respiratory: clear to auscultation, normal air movement Cardiovascular: nl pulses, regular rate and rhythm Gastrointestinal: non-tender, soft Musculoskeletal: other Extremities: other Neurological: nl mental status, nl speech Results Result Diagram: 11/16/16 0512 11/16/16 0512 Results 24 hrs Laboratory Tests Test 11/15/16 17:38 11/15/16 20:36 11/15/16 20:50 11/15/16 21:22 Bedside Glucose 98 80 81 Glucose Level 62 #L Test 11/16/16 05:12 11/16/16 05:34 11/16/16 08:17 11/16/16 11:57 White Blood Count 3.8 L Red Blood Count 2.62 L Hemoglobin 8.6 L Hematocrit 28.0 L Mean Corpuscular Volume 106.9 H Mean Corpuscular Hemoglobin 32.8 Mean Corpuscular Hemoglobin Concent 30.7 L Red Cell Distribution Width 14.5 Platelet Count 214 Mean Platelet Volume 11.0 H Neutrophils % 40.2 Lymphocytes % 41.5 Monocytes % 11.4 H Eosinophils % 6.1 Basophils % 0.5 Nucleated Red Blood Cells % 0.0 Neutrophils # 1.5 L Lymphocytes # 1.6 Monocytes # 0.4 Eosinophils # 0.2 Basophils # 0.0 Nucleated Red Blood Cells # 0.0 Sodium Level 140 Potassium Level 4.3 Chloride Level 96 L Carbon Dioxide Level 29 Anion Gap 19 H Blood Urea Nitrogen 39 #H Creatinine 3.93 H Glucose Level 221 #H Calcium Level 8.3 L Random Vancomycin Level 12.4 Bedside Glucose 222 H 171 180 Medications Medications Current Medications Alprazolam (Xanax) 0.25 mg TID PRN PO ANXIETY; Start 11/13/16 at 21:30 Amlodipine Besylate (Norvasc) 10 mg DAILY PO Last administered on 11/16/16 08: 18; Admin Dose 10 MG; Start 11/14/16 at 09:00 Aspirin (Halfprin) 81 mg DAILY PO Last administered on 11/16/16 08:18; Admin Dose 81 MG; Start 11/14/16 at 09:00 Atorvastatin Calcium (Lipitor) 40 mg QHS PO Last administered on 11/15/16 20: 18; Admin Dose 40 MG; Start 11/14/16 at 21:00 Carvedilol (Coreg) 6.25 mg DAILY PO Last administered on 11/16/16 08:18; Admin Dose 6.25 MG; Start 11/14/16 at 09:00 Clonidine (Catapres) 0.2 mg TID PRN PO SBP>170; Start 11/13/16 at 21:30 Clopidogrel Bisulfate (plaVIX) 75 mg DAILY PO Last administered on 11/16/16 08 :19; Admin Dose 75 MG; Start 11/14/16 at 09:00 Docusate Sodium (Colace) 100 mg BID PO Last administered on 11/16/16 08:18; Admin Dose 100 MG; Start 11/14/16 at 09:00 Folic Acid (Folic Acid) 1 mg DAILY PO Last administered on 11/16/16 08:18; Admin Dose 1 MG; Start 11/14/16 at 09:00 Gabapentin (Neurontin) 300 mg BID PO Last administered on 11/16/16 08:19; Admin Dose 300 MG; Start 11/14/16 at 09:00 Losartan Potassium (Cozaar) 50 mg DAILY PO Last administered on 11/16/16 08:18 ; Admin Dose 50 MG; Start 11/14/16 at 09:00 Multivit/Ca Carb/ B Cmplx/FA/Prenat (Addie-Mikayla) 1 tab DAILY PO Last administered on 11/16/16 08:19; Admin Dose 1 TAB; Start 11/14/16 at 09:00 Morphine Sulfate (morphine) 2 mg Q6H PRN IV PAIN LEVEL 7-10 Last administered on 11/16/16 11:47; Admin Dose 2 MG; Start 11/13/16 at 21:30 Acetaminophen (Tylenol Tab) 650 mg Q6H PRN PO ELEVATED TEMPERATURE Last administered on 11/14/16 00:57; Admin Dose 650 MG; Start 11/13/16 at 21:30 Miscellaneous Information 1 ea NOTE XX ; Start 11/13/16 at 22:00 Glucose (Glutose) 15 gm Q15M PRN PO DECREASED GLUCOSE; Start 11/13/16 at 22:00 Glucose (Glutose) 22.5 gm Q15M PRN PO DECREASED GLUCOSE; Start 11/13/16 at 22: 00 Dextrose (D50w Syringe) 25 ml Q15M PRN IV DECREASED GLUCOSE; Start 11/13/16 at 22:00 Dextrose (D50w Syringe) 50 ml Q15M PRN IV DECREASED GLUCOSE; Start 11/13/16 at 22:00 Glucagon (Glucagen) 1 mg Q15M PRN IM DECREASED GLUCOSE; Start 11/13/16 at 22:00 Glucose 15 gm 15 gm Q15M PRN BUCCAL DECREASED GLUCOSE; Start 11/13/16 at 22:00 Sodium Chloride (NS) 1,000 ml @ 0 mls/hr Q0M PRN IV TO KEEP SBP ABOVE 90; Start 11/13/16 at 22:30 Diagnostic Test (Pha) (Accu-Chek) 1 ea 02 XX ; Start 11/14/16 at 02:00 Acetaminophen/ Hydrocodone Bitart ([place] (5/325)) 1 tab Q4H PRN PO PAIN LEVEL 4 -6 Last administered on 11/15/16 20:17; Admin Dose 1 TAB; Start 11/14/16 at 13: 00 Linagliptin (Tradjenta) 5 mg DAILY PO Last administered on 11/16/16 08:18; Admin Dose 5 MG; Start 11/14/16 at 12:30 Acetaminophen 325 mg 325 mg TuThSa PO ; Start 11/15/16 at 15:30 Sodium Chloride (NS) 1,000 ml @ 0 mls/hr Q0M PRN IV TO KEEP SBP ABOVE 90; Start 11/14/16 at 16:54 Multi-Ingredient Ointment (Eucerin Cream) 1 applic BID TOP Last administered on 11/16/16 08:32; Admin Dose 1 APPLIC; Start 11/15/16 at 21:00 Diphenhydramine HCl (Benadryl) 50 mg Q8 PO Last administered on 11/16/16 13:49 ; Admin Dose 50 MG; Start 11/15/16 at 14:00 Bacitracin (Bacitracin 0.5%/ Zinc Oint) 1 applic BID TOP Last administered on 08:18; Admin Dose 1 APPLIC; Start 11/15/16 at 21:00 Cyclobenzaprine HCl (Flexeril) 5 mg TID PO Last administered on 11/16/16 13:49 ; Admin Dose 5 MG; Start 11/15/16 at 21:00 Insulin Glargine 30 unit 30 unit HS SC ; Start 11/16/16 at 21:00 Vancomycin HCl/ Sodium Chloride (Vancocin/NS) 250 ml @ 83.333 mls/ hr 12 IVPB Last administered on 11/16/16 11:55; Admin Dose 83.333 MLS/HR; Start 11/16/16 at 12:00; Stop 11/16/16 at 22:00 Diphenhydramine HCl (Benadryl) 25 mg 1130 PO Last administered on 11/16/16 11: 46; Admin Dose 25 MG; Start 11/16/16 at 11:30; Stop 11/16/16 at 20:00 Acetaminophen (Tylenol Tab) 325 mg 1130 PO Last administered on 11/16/16 11:46 ; Admin Dose 325 MG; Start 11/16/16 at 11:30; Stop 11/16/16 at 19:00 VIOLET RUDOLPH Nov 16, 2016 16:26
[2016-11-16 19:57] VITALS: BP 166/74; RESP 18
[2016-11-16] MEDS: ATORVASTATIN 40 MG TAB PO SCH (20:29)
[2016-11-16] MEDS: INSULIN GLARGINE [LANtus] 3 ML PEN SC SCH (20:38)
[2016-11-17] MEDS: CYCLOBENZAPRINE 10 MG TAB PO SCH ×4 (00:10→17:25)
[2016-11-17 02:00] VITALS: BP 150/66; RESP 18
[2016-11-17] MEDS: ACCU-CHEK XX SCH (02:00)
[2016-11-17] MEDS: morphine 2 MG INJ IV PRN ×3 (03:25→18:36)
[2016-11-17] MEDS: DIPHENHYDRAMINE 50 MG CAP PO SCH ×3 (05:54→22:06)
[2016-11-17] MEDS: FUROSEMIDE 40 MG TAB PO SCH ×2 (05:55→17:26)
[2016-11-17 07:38] VITALS: BP 164/72; RESP 20
[2016-11-17] MEDS: INSULIN ASPART [NOVOLOG] 3 ML PEN SC SCH ×7 (08:19→20:38)
[2016-11-17] MEDS: SEVELAMER CARBONATE 0.8 GM PKT PO SCH ×3 (08:41→17:25)
[2016-11-17] MEDS: PANTOPRAZOLE (EC) 40 MG TAB PO SCH (08:42)
[2016-11-17] MEDS: CLOPIDOGREL 75 MG TAB PO SCH (08:42)
[2016-11-17] MEDS: DOCUSATE SODIUM 100 MG CAP PO SCH ×2 (08:42→20:37)
[2016-11-17] MEDS: MULTIVIT/CA CARB/B CMPLX/FA TAB PO SCH (08:42)
[2016-11-17] MEDS: AMLODIPINE 10 MG TAB PO SCH (08:42)
[2016-11-17] MEDS: ASPIRIN (EC) 81 MG TAB PO SCH (08:43)
[2016-11-17] MEDS: LINAGLIPTIN 5 MG TABLET PO SCH (08:43)
[2016-11-17] MEDS: FOLIC ACID 1 MG TAB PO SCH (08:43)
[2016-11-17] MEDS: GABAPENTIN 300 MG CAP PO SCH ×2 (08:43→20:37)
[2016-11-17] MEDS: LOSARTAN 50 MG TAB PO SCH (08:43)
[2016-11-17] MEDS: BACITRACIN 0.5%/ZINC 28.35 GM OINT TOP SCH ×2 (08:44→20:39)
[2016-11-17] MEDS: HYDROCODONE/APAP (5/325) TAB PO PRN ×2 (08:52→17:25)
[2016-11-17] MEDS: EUCERIN 113 GM CR TOP SCH ×3 (09:00→20:41)
--- NOTE | 2016-11-17 12:28 | CONS ---
Date/Time of Note Date/Time of Note DATE: 11/17/16 TIME: 12:25 Assessment/Plan Assessment/Plan Chief Complaint/Hosp Course assessment/impression - skin and soft tissue infection of LLE with eschar. CT was negative for osteomyelitis - pain of LLE likely multifactorial: skin and soft tissue infection, PVD, lymphadema - PVD - s/p bypass of LLE - DM - h/o OM of b/l feet, s/p amputation of R two toes - diabetic neuropathy - ESRD on HD via permacath on R chest wall 3 times a week - Anemia of chronic disease - CHF and CAD - s/p orthopedic procedures to RUE with metal prosthetic after bone Fx - dry skin and pruritis, which started prior to admission - possible red man syndrome due to vancomycin recommendations - continue renally dosed vancomycin (11/13/2016-) with premedication protocol: benadryl and tylenol 30 min prior to infusion, and extended infusion time of 2 hrs. If Pt gets discharged, I recommend that Pt continue to get IV vancomycin at the time of dialysis ending on 11/20/2016 - keep LEs elevated to decrease lymphadema - management d/w Pt Problems: Consultation Date/Type/Reason Admit Date/Time Nov 13, 2016 at 18:46 Initial Consult Date 11/14/16 Type of Consultation: ID Referring Provider: VIOLET RUDOLPH 24 HR Interval Summary Constitutional: improved Detailed Summary Eyes: no complaints ENT: no complaints Respiratory: no complaints Cardiovascular: no complaints Gastrointestinal: no complaints Genitourinary: other (anuric) Musculoskeletal: other (able to ambulate) Skin: other (pain of LLE onl upon palpation), skin lesions (LLE, a bulla has not opened) Neurologic: no complaints Lymphatic: lymphadema (b/l LE) Exam/Review of Systems Vital Signs Vitals Vital Signs Date Time Temp Pulse Resp B/P Pulse Ox O2 Delivery O2 Flow Rate FiO2 11/17/16 07:38 98.4 75 20 164/72 98 11/14/16 05:59 Room Air Intake and Output 11/16/16 11/16/16 11/17/16 15:00 23:00 07:00 Intake Total 750 ml 920 ml 600 ml Balance 750 ml 920 ml 600 ml Exam Constitutional: alert, oriented, well developed Psych: nl mood/affect, no complaints Head: atraumatic, normocephalic Eyes: nl conjunctiva, nl lids ENMT: nl external ears & nose, nl nasal mucosa & septum Neck: supple Musculoskeletal: nl extremities to inspection Extremities: edema Neurological: [employer] II-XII intact, nl mental status, nl speech Skin: rash or lesions (eschar surrounded by a bulla containing clear fluid on LLE, TTP) Lymph: other (lymphadema of bl LE, but less than before particularly LLE) Results Result Diagram: 11/16/16 0512 11/16/16 0512 Results 24 hrs Laboratory Tests Test 11/16/16 17:52 11/16/16 20:28 11/17/16 08:13 Bedside Glucose 192 177 141 Medications Medications Current Medications Alprazolam (Xanax) 0.25 mg TID PRN PO ANXIETY; Start 11/13/16 at 21:30 Amlodipine Besylate (Norvasc) 10 mg DAILY PO Last administered on 11/17/16 08: 42; Admin Dose 10 MG; Start 11/14/16 at 09:00 Aspirin (Halfprin) 81 mg DAILY PO Last administered on 11/17/16 08:43; Admin Dose 81 MG; Start 11/14/16 at 09:00 Atorvastatin Calcium (Lipitor) 40 mg QHS PO Last administered on 11/16/16 20: 29; Admin Dose 40 MG; Start 11/14/16 at 21:00 Carvedilol (Coreg) 6.25 mg DAILY PO Last administered on 11/17/16 08:43; Admin Dose 6.25 MG; Start 11/14/16 at 09:00 Clonidine (Catapres) 0.2 mg TID PRN PO SBP>170; Start 11/13/16 at 21:30 Clopidogrel Bisulfate (plaVIX) 75 mg DAILY PO Last administered on 11/17/16 08 :42; Admin Dose 75 MG; Start 11/14/16 at 09:00 Docusate Sodium (Colace) 100 mg BID PO Last administered on 11/17/16 08:42; Admin Dose 100 MG; Start 11/14/16 at 09:00 Folic Acid (Folic Acid) 1 mg DAILY PO Last administered on 11/17/16 08:43; Admin Dose 1 MG; Start 11/14/16 at 09:00 Gabapentin (Neurontin) 300 mg BID PO Last administered on 11/17/16 08:43; Admin Dose 300 MG; Start 11/14/16 at 09:00 Losartan Potassium (Cozaar) 50 mg DAILY PO Last administered on 11/17/16 08:43 ; Admin Dose 50 MG; Start 11/14/16 at 09:00 Multivit/Ca Carb/ B Cmplx/FA/Prenat (Addie-Mikayla) 1 tab DAILY PO Last administered on 11/17/16 08:42; Admin Dose 1 TAB; Start 11/14/16 at 09:00 Morphine Sulfate (morphine) 2 mg Q6H PRN IV PAIN LEVEL 7-10 Last administered on 11/17/16 10:52; Admin Dose 2 MG; Start 11/13/16 at 21:30 Acetaminophen (Tylenol Tab) 650 mg Q6H PRN PO ELEVATED TEMPERATURE Last administered on 11/14/16 00:57; Admin Dose 650 MG; Start 11/13/16 at 21:30 Miscellaneous Information 1 ea NOTE XX ; Start 11/13/16 at 22:00 Glucose (Glutose) 15 gm Q15M PRN PO DECREASED GLUCOSE; Start 11/13/16 at 22:00 Glucose (Glutose) 22.5 gm Q15M PRN PO DECREASED GLUCOSE; Start 11/13/16 at 22: 00 Dextrose (D50w Syringe) 25 ml Q15M PRN IV DECREASED GLUCOSE; Start 11/13/16 at 22:00 Dextrose (D50w Syringe) 50 ml Q15M PRN IV DECREASED GLUCOSE; Start 11/13/16 at 22:00 Glucagon (Glucagen) 1 mg Q15M PRN IM DECREASED GLUCOSE; Start 11/13/16 at 22:00 Glucose 15 gm 15 gm Q15M PRN BUCCAL DECREASED GLUCOSE; Start 11/13/16 at 22:00 Sodium Chloride (NS) 1,000 ml @ 0 mls/hr Q0M PRN IV TO KEEP SBP ABOVE 90; Start 11/13/16 at 22:30 Diagnostic Test (Pha) (Accu-Chek) 1 ea 02 XX ; Start 11/14/16 at 02:00 Acetaminophen/ Hydrocodone Bitart ([place] (5/325)) 1 tab Q4H PRN PO PAIN LEVEL 4 -6 Last administered on 11/17/16 08:52; Admin Dose 1 TAB; Start 11/14/16 at 13: 00 Linagliptin (Tradjenta) 5 mg DAILY PO Last administered on 11/17/16 08:43; Admin Dose 5 MG; Start 11/14/16 at 12:30 Acetaminophen 325 mg 325 mg TuThSa PO ; Start 11/15/16 at 15:30 Sodium Chloride (NS) 1,000 ml @ 0 mls/hr Q0M PRN IV TO KEEP SBP ABOVE 90; Start 11/14/16 at 16:54 Diphenhydramine HCl (Benadryl) 50 mg Q8 PO Last administered on 11/17/16 05:54 ; Admin Dose 50 MG; Start 11/15/16 at 14:00 Bacitracin (Bacitracin 0.5%/ Zinc Oint) 1 applic BID TOP Last administered on 08:44; Admin Dose 1 APPLIC; Start 11/15/16 at 21:00 Insulin Glargine (Lantus) 30 unit HS SC Last administered on 11/16/16 20:38; Admin Dose 30 UNIT; Start 11/16/16 at 21:00 Cyclobenzaprine HCl (Flexeril) 5 mg Q6 PO Last administered on 11/17/16 12:21 ; Admin Dose 5 MG; Start 11/16/16 at 18:00 Multi-Ingredient Ointment (Eucerin Cream) 1 applic BID TOP Last administered on 11/17/16 12:21; Admin Dose 1 APPLIC; Start 11/17/16 at 08:49 ALEXANDER MARTÍNEZ M.D. Nov 17, 2016 12:28
[2016-11-17 13:25] VITALS: BP 127/69; RESP 20
--- NOTE | 2016-11-17 14:34 | PN ---
Date/Time of Note Date/Time of Note DATE: 11/17/16 TIME: 14:32 Assessment/Plan VTE Prophylaxis VTE Prophylaxis Intervention: SCD's Lines/Catheters IV [facility]from [facility] Saline Lock Assessment/Plan Chief Complaint/Hosp Course Patient's complains of left left lower extremity pain remains afebrile blood sugar is better controlled, patient was able to undergo hemodialysis via a left upper extremity AV fistula. Assessment/Plan -Left lower extremity cellulitis, Dr. Rice is following infection disease consultation, continue antibiotics per ID. -Severe PVD, with multiple vascular intervention including a left lower extremity bypass. Dr. Ruano is following an vascular surgery. -Hemodialysis dependent end-stage renal disease, Dr. Garcia is following in nephrology consultation, continue hemodialysis. -Diabetes mellitus type 2, continue Tradjenta Lantus and NovoLog -S/p orthopedic procedures to RUE with metal prosthetic after bone Fx Further recommendations based on clinical course. Plan of care discussed with Dr. Cordero. Problems: Exam/Review of Systems Vital Signs Vitals Vital Signs Date Time Temp Pulse Resp B/P Pulse Ox O2 Delivery O2 Flow Rate FiO2 11/17/16 13:25 98.1 86 20 127/69 98 11/14/16 05:59 Room Air Intake and Output 11/16/16 11/16/16 11/17/16 15:00 23:00 07:00 Intake Total 750 ml 920 ml 600 ml Balance 750 ml 920 ml 600 ml Exam Constitutional: alert, oriented Head: normocephalic Neck: supple Respiratory: clear to auscultation Cardiovascular: nl pulses Gastrointestinal: non-tender, soft Musculoskeletal: nl extremities to inspection Extremities: normal pulses Neurological: nl mental status Skin: other (LLE wound with eschar) Results Result Diagram: 11/16/16 0512 11/16/16 0512 Results 24 hrs Laboratory Tests Test 11/16/16 17:52 11/16/16 20:28 11/17/16 08:13 11/17/16 12:19 Bedside Glucose 192 177 141 107 Medications Medications Current Medications Alprazolam (Xanax) 0.25 mg TID PRN PO ANXIETY; Start 11/13/16 at 21:30 Amlodipine Besylate (Norvasc) 10 mg DAILY PO Last administered on 11/17/16t 08: 42; Admin Dose 10 MG; Start 11/14/16 at 09:00 Aspirin (Halfprin) 81 mg DAILY PO Last administered on 11/17/16 08:43; Admin Dose 81 MG; Start 11/14/16 at 09:00 Atorvastatin Calcium (Lipitor) 40 mg QHS PO Last administered on 11/16/16 20: 29; Admin Dose 40 MG; Start 11/14/16 at 21:00 Carvedilol (Coreg) 6.25 mg DAILY PO Last administered on 11/17/16 08:43; Admin Dose 6.25 MG; Start 11/14/16 at 09:00 Clonidine (Catapres) 0.2 mg TID PRN PO SBP>170; Start 11/13/16 at 21:30 Clopidogrel Bisulfate (plaVIX) 75 mg DAILY PO Last administered on 11/17/16 08 :42; Admin Dose 75 MG; Start 11/14/16 at 09:00 Docusate Sodium (Colace) 100 mg BID PO Last administered on 11/17/16 08:42; Admin Dose 100 MG; Start 11/14/16 at 09:00 Folic Acid (Folic Acid) 1 mg DAILY PO Last administered on 11/17/16 08:43; Admin Dose 1 MG; Start 11/14/16 at 09:00 Gabapentin (Neurontin) 300 mg BID PO Last administered on 11/17/16 08:43; Admin Dose 300 MG; Start 11/14/16 at 09:00 Losartan Potassium (Cozaar) 50 mg DAILY PO Last administered on 11/17/16 08:43 ; Admin Dose 50 MG; Start 11/14/16 at 09:00 Multivit/Ca Carb/ B Cmplx/FA/Prenat (Addie-Mikayla) 1 tab DAILY PO Last administered on 11/17/16 08:42; Admin Dose 1 TAB; Start 11/14/16 at 09:00 Morphine Sulfate (morphine) 2 mg Q6H PRN IV PAIN LEVEL 7-10 Last administered on 11/17/16 10:52; Admin Dose 2 MG; Start 11/13/16 at 21:30 Acetaminophen (Tylenol Tab) 650 mg Q6H PRN PO ELEVATED TEMPERATURE Last administered on 11/14/16 00:57; Admin Dose 650 MG; Start 11/13/16 at 21:30 Miscellaneous Information 1 ea NOTE XX ; Start 11/13/16 at 22:00 Glucose (Glutose) 15 gm Q15M PRN PO DECREASED GLUCOSE; Start 11/13/16 at 22:00 Glucose (Glutose) 22.5 gm Q15M PRN PO DECREASED GLUCOSE; Start 11/13/16 at 22: 00 Dextrose (D50w Syringe) 25 ml Q15M PRN IV DECREASED GLUCOSE; Start 11/13/16 at 22:00 Dextrose (D50w Syringe) 50 ml Q15M PRN IV DECREASED GLUCOSE; Start 11/13/16 at 22:00 Glucagon (Glucagen) 1 mg Q15M PRN IM DECREASED GLUCOSE; Start 11/13/16 at 22:00 Glucose 15 gm 15 gm Q15M PRN BUCCAL DECREASED GLUCOSE; Start 11/13/16 at 22:00 Sodium Chloride (NS) 1,000 ml @ 0 mls/hr Q0M PRN IV TO KEEP SBP ABOVE 90; Start 11/13/16 at 22:30 Diagnostic Test (Pha) (Accu-Chek) 1 ea 02 XX ; Start 11/14/16 at 02:00 Acetaminophen/ Hydrocodone Bitart ([place] (5/325)) 1 tab Q4H PRN PO PAIN LEVEL 4 -6 Last administered on 11/17/16 08:52; Admin Dose 1 TAB; Start 11/14/16 at 13: 00 Linagliptin (Tradjenta) 5 mg DAILY PO Last administered on 11/17/16 08:43; Admin Dose 5 MG; Start 11/14/16 at 12:30 Acetaminophen 325 mg 325 mg TuThSa PO ; Start 11/15/16 at 15:30 Sodium Chloride (NS) 1,000 ml @ 0 mls/hr Q0M PRN IV TO KEEP SBP ABOVE 90; Start 11/14/16 at 16:54 Diphenhydramine HCl (Benadryl) 50 mg Q8 PO Last administered on 11/17/16 13:27 ; Admin Dose 50 MG; Start 11/15/16 at 14:00 Bacitracin (Bacitracin 0.5%/ Zinc Oint) 1 applic BID TOP Last administered on 08:44; Admin Dose 1 APPLIC; Start 11/15/16 at 21:00 Insulin Glargine (Lantus) 30 unit HS SC Last administered on 11/16/16 20:38; Admin Dose 30 UNIT; Start 11/16/16 at 21:00 Cyclobenzaprine HCl (Flexeril) 5 mg Q6 PO Last administered on 11/17/16 12:21 ; Admin Dose 5 MG; Start 11/16/16 at 18:00 Multi-Ingredient Ointment (Eucerin Cream) 1 applic BID TOP Last administered on 11/17/16 12:21; Admin Dose 1 APPLIC; Start 11/17/16 at 08:49 ANTHONY DUPREE Nov 17, 2016 14:34
[2016-11-17] MEDS ORDERED: LIDOCAINE 1% (MDV) 20 ML INJ ONE (15:50)
[2016-11-17 17:26] VITALS: BP 155/68; PULSE 74
--- NOTE | 2016-11-17 19:48 | CONS ---
Date/Time of Note Date/Time of Note DATE: 11/17/16 TIME: 19:47 Assessment/Plan Assessment/Plan Chief Complaint/Hosp Course A/P LEG CELLULITES ESRD DM HTN s/p permacath removal PLAN CONTINUE hd Problems: Consultation Date/Type/Reason Admit Date/Time Nov 13, 2016 at 18:46 Initial Consult Date 11/14/16 Type of Consultation: renal Referring Provider: VIOLET RUDOLPH 24 HR Interval Summary Constitutional: other (s/p permacath removal) Exam/Review of Systems Vital Signs Vitals Vital Signs Date Time Temp Pulse Resp B/P Pulse Ox O2 Delivery O2 Flow Rate FiO2 11/17/16 17:26 74 155/68 11/17/16 13:25 98.1 20 98 11/14/16 05:59 Room Air Intake and Output 11/16/16 11/16/16 11/17/16 15:00 23:00 07:00 Intake Total 750 ml 920 ml 600 ml Balance 750 ml 920 ml 600 ml Exam Respiratory: clear to auscultation Cardiovascular: regular rate and rhythm Gastrointestinal: soft Musculoskeletal: nl extremities to inspection Extremities: normal pulses Results Result Diagram: 11/16/16 0512 11/16/16 0512 Results 24 hrs Laboratory Tests Test 11/16/16 20:28 11/17/16 08:13 11/17/16 12:19 11/17/16 17:30 Bedside Glucose 177 141 107 119 Medications Medications Current Medications Alprazolam (Xanax) 0.25 mg TID PRN PO ANXIETY; Start 11/13/16 at 21:30 Amlodipine Besylate (Norvasc) 10 mg DAILY PO Last administered on 11/17/16 08: 42; Admin Dose 10 MG; Start 11/14/16 at 09:00 Aspirin (Halfprin) 81 mg DAILY PO Last administered on 11/17/16 08:43; Admin Dose 81 MG; Start 11/14/16 at 09:00 Atorvastatin Calcium (Lipitor) 40 mg QHS PO Last administered on 11/16/16 20: 29; Admin Dose 40 MG; Start 11/14/16 at 21:00 Carvedilol (Coreg) 6.25 mg DAILY PO Last administered on 11/17/16 08:43; Admin Dose 6.25 MG; Start 11/14/16 at 09:00 Clonidine (Catapres) 0.2 mg TID PRN PO SBP>170; Start 11/13/16 at 21:30 Clopidogrel Bisulfate (plaVIX) 75 mg DAILY PO Last administered on 11/17/16 08 :42; Admin Dose 75 MG; Start 11/14/16 at 09:00 Docusate Sodium (Colace) 100 mg BID PO Last administered on 11/17/16 08:42; Admin Dose 100 MG; Start 11/14/16 at 09:00 Folic Acid (Folic Acid) 1 mg DAILY PO Last administered on 11/17/16 08:43; Admin Dose 1 MG; Start 11/14/16 at 09:00 Gabapentin (Neurontin) 300 mg BID PO Last administered on 11/17/16 08:43; Admin Dose 300 MG; Start 11/14/16 at 09:00 Losartan Potassium (Cozaar) 50 mg DAILY PO Last administered on 11/17/16 08:43 ; Admin Dose 50 MG; Start 11/14/16 at 09:00 Multivit/Ca Carb/ B Cmplx/FA/Prenat (Addie-Mikayla) 1 tab DAILY PO Last administered on 11/17/16 08:42; Admin Dose 1 TAB; Start 11/14/16 at 09:00 Morphine Sulfate (morphine) 2 mg Q6H PRN IV PAIN LEVEL 7-10 Last administered on 11/17/16 18:36; Admin Dose 2 MG; Start 11/13/16 at 21:30 Acetaminophen (Tylenol Tab) 650 mg Q6H PRN PO ELEVATED TEMPERATURE Last administered on 11/14/16 00:57; Admin Dose 650 MG; Start 11/13/16 at 21:30 Miscellaneous Information 1 ea NOTE XX ; Start 11/13/16 at 22:00 Glucose (Glutose) 15 gm Q15M PRN PO DECREASED GLUCOSE; Start 11/13/16 at 22:00 Glucose (Glutose) 22.5 gm Q15M PRN PO DECREASED GLUCOSE; Start 11/13/16 at 22: 00 Dextrose (D50w Syringe) 25 ml Q15M PRN IV DECREASED GLUCOSE; Start 11/13/16 at 22:00 Dextrose (D50w Syringe) 50 ml Q15M PRN IV DECREASED GLUCOSE; Start 11/13/16 at 22:00 Glucagon (Glucagen) 1 mg Q15M PRN IM DECREASED GLUCOSE; Start 11/13/16 at 22:00 Glucose 15 gm 15 gm Q15M PRN BUCCAL DECREASED GLUCOSE; Start 11/13/16 at 22:00 Sodium Chloride (NS) 1,000 ml @ 0 mls/hr Q0M PRN IV TO KEEP SBP ABOVE 90; Start 11/13/16 at 22:30 Diagnostic Test (Pha) (Accu-Chek) 1 ea 02 XX ; Start 11/14/16 at 02:00 Acetaminophen/ Hydrocodone Bitart ([place] (5/325)) 1 tab Q4H PRN PO PAIN LEVEL 4 -6 Last administered on 11/17/16 17:25; Admin Dose 1 TAB; Start 11/14/16 at 13: 00 Linagliptin (Tradjenta) 5 mg DAILY PO Last administered on 11/17/16 08:43; Admin Dose 5 MG; Start 11/14/16 at 12:30 Acetaminophen 325 mg 325 mg TuThSa PO ; Start 11/15/16 at 15:30 Sodium Chloride (NS) 1,000 ml @ 0 mls/hr Q0M PRN IV TO KEEP SBP ABOVE 90; Start 11/14/16 at 16:54 Diphenhydramine HCl (Benadryl) 50 mg Q8 PO Last administered on 11/17/16 13:27 ; Admin Dose 50 MG; Start 11/15/16 at 14:00 Bacitracin (Bacitracin 0.5%/ Zinc Oint) 1 applic BID TOP Last administered on 08:44; Admin Dose 1 APPLIC; Start 11/15/16 at 21:00 Insulin Glargine (Lantus) 30 unit HS SC Last administered on 11/16/16 20:38; Admin Dose 30 UNIT; Start 11/16/16 at 21:00 Cyclobenzaprine HCl (Flexeril) 5 mg Q6 PO Last administered on 11/17/16 17:25 ; Admin Dose 5 MG; Start 11/16/16 at 18:00 Multi-Ingredient Ointment (Eucerin Cream) 1 applic BID TOP Last administered on 11/17/16 12:21; Admin Dose 1 APPLIC; Start 11/17/16 at 08:49 ZOFIA REAL MD Nov 17, 2016 19:48
[2016-11-17 20:00] VITALS: BP 150/70; RESP 18
[2016-11-17] MEDS: ATORVASTATIN 40 MG TAB PO SCH (20:37)
[2016-11-17] MEDS: INSULIN GLARGINE [LANtus] 3 ML PEN SC SCH (20:49)
--- NOTE | 2016-11-17 21:42 | HP ---
DATE OF ADMISSION: 11/13/2016 HISTORY OF PRESENT ILLNESS: Dear Doctors, Ms. Petit is a 56- year-old female known to our Vascular Surgery Service secondary to history of noncompliance and bilateral lower extremity atherosclerosis with revascularizations. Further, the patient has had history of end-stage renal disease, with a left upper extremity AV fistula that we had created for her about a year and half ago. Of note, the patient had been lost to our followup as the patient had moved [place] and had recently returned back to [place] and has returned to our office for her vascular surveillance. The patient had been seen by us in our Vascular Surgery office last week in which she presented with significant left lower extremity edema, swelling, pain, discomfort, chills and discoloration of her rosales area that she has had over the past 2 weeks. The patient's pain has gradually worsened. It was recommended to go to the ER. Since admission, the patient has been started on IV antibiotics and been gradually feeling better. The fever and chills have resolved, and currently denies any claudication or rest pain-like symptoms. Patient has been tolerating her dialysis sessions well via her left upper extremity fistula. She has had successful sessions under Perm catheter and needs to be scheduled for removal. REVIEW OF SYSTEMS: Fourteen point review performed negative except was mentioned in HPI. PAST MEDICAL HISTORY: Entails diabetes noncompliance, bilateral lower extremity atherosclerosis with gangrene, end-stage renal disease, peripheral neuropathy, diabetic nephropathy and retinopathy, osteomyelitis, lumbar degenerative disc disease, sciatica, hypertension, hypercholesterolemia, morbidly obese with BMI of 39.7. SURGICAL HISTORY: Right lower extremity revascularization, multiple chest wall catheters, left upper extremity fistula creation, left lower extremity angiogram and endovascular intervention. FAMILY HISTORY: Positive for hypertension and diabetes. SOCIAL HISTORY: Denies tobacco, alcohol, or illicit drug use. The patient had been a previous smoker in the past. PHYSICAL EXAMINATION: Alert and oriented times 3. No apparent distress. HEENT: Normocephalic, atraumatic. PERRLA. EOMI. Mucosa moist. NECK: Supple. No carotid bruit. LUNGS: Clear to auscultation bilaterally. No crackles. CARDIOVASCULAR: S1, S2 present. No murmurs. ABDOMEN: Soft, nontender, nondistended. Truncal obesity. EXTREMITIES: Right lower extremity, palpable femoral pulse. Nonpalpable pedal pulse. Motor and sensory intact. Capillary refill 3 seconds. Surgical scar is well healed. Left lower extremity, palpable femoral pulse. Nonpalpable pedal pulse. Motor and sensory intact. Capillary refill 3-4 seconds. Edema of about 1 to 2 plus, as well on her right side with edema. Erythema from our ankle to her calf gradually improving. Discoloration in the mid rosales area that developed an eschar about the same. ASSESSMENT AND PLAN: 1. Bilateral lower extremity atherosclerosis of left lower extremity ulcer/gangrene: Seems the patient has developed a diabetic foot infection with an eschar over the area of the mid rosales area. Her erythema has been gradually improving via her intravenous (IV) antibiotics. Patient had adequate perfusion to the lower leg from our previous vascular surveillance. Would recommend continue with current antibiotics and we will continue our evaluation. We will schedule the patient as an outpatient for an ultrasound of the lower extremities with her follow-up visit. 2. End-stage renal disease: It seems the patient has been tolerating her dialysis sessions via her left upper extremity fistula appropriately. We will schedule the patient to have her right chest wall catheter removed in the coming days. 3. Optimize vascular status : (nutrition, exercise, sugar control, and antiplatelets). Discussed findings, plan and management with the patient. She understands. Thank you for allowing us to partake in the care of your patient. Please call with any questions. Dictated By: Adiel Ruano MD /gregg/audrey /Document#: [id number]
[2016-11-18] VITALS (11 sets, daily range): BP systolic 115–201; BP diastolic 58–81; PULSE 65–74; RESP 18–20
[2016-11-18] MEDS: CYCLOBENZAPRINE 10 MG TAB PO SCH ×4 (00:28→17:34)
[2016-11-18] MEDS: morphine 2 MG INJ IV PRN ×4 (00:37→19:51)
[2016-11-18] MEDS: ACCU-CHEK XX SCH (02:00)
[2016-11-18] MEDS: HYDROCODONE/APAP (5/325) TAB PO PRN ×3 (02:27→22:39)
[2016-11-18 06:04] LABS: BASOPHILS % 0.5 % (0.0-2.0); EOSINOPHILS # 0.2 10^3/ul (0.0-0.5); EOSINOPHILS % 5.4 % (0.0-7.0); HEMATOCRIT 27.8 % (37.0-47.0); HEMOGLOBIN 8.5 g/dl (12.0-16.0); LYMPHOCYTES # 1.1 10^3/ul (0.8-2.9); LYMPHOCYTES % 27.5 % (15.0-51.0); MEAN CORPUSCULAR HEMOGLOBIN 32.6 pg (29.0-33.0); MEAN CORPUSCULAR HGB CONC 30.6 g/dl (32.0-37.0); MEAN CORPUSCULAR VOLUME 106.5 fl (82.0-101.0); MEAN PLATELET VOLUME 10.9 fl (7.4-10.4); MONOCYTE # 0.6 10^3/ul (0.3-0.9); MONOCYTES % 13.5 % (0.0-11.0); NEUTROPHILS % 52.9 % (39.0-77.0); PLATELET COUNT 214 10^3/UL (140-415); RED BLOOD COUNT 2.61 10^6/ul (4.20-5.40); WHITE BLOOD COUNT 4.1 10^3/ul (4.8-10.8)
[2016-11-18] MEDS: FUROSEMIDE 40 MG TAB PO SCH ×2 (06:23→13:16)
[2016-11-18] MEDS: DIPHENHYDRAMINE 50 MG CAP PO SCH ×3 (06:23→22:32)
[2016-11-18 06:36] LABS: CALCIUM 8.1 mg/dl (8.4-10.2); CREATININE 6.1 mg/dl (0.44-1.00); POTASSIUM 5.1 mmol/L (3.5-5.1)
[2016-11-18] MEDS: SEVELAMER CARBONATE 0.8 GM PKT PO SCH ×3 (08:08→17:33)
[2016-11-18] MEDS: PANTOPRAZOLE (EC) 40 MG TAB PO SCH (08:08)
[2016-11-18] MEDS: INSULIN ASPART [NOVOLOG] 3 ML PEN SC SCH ×7 (08:17→20:58)
[2016-11-18] MEDS: EUCERIN 113 GM CR TOP SCH ×2 (09:00→20:59)
[2016-11-18] MEDS: DOCUSATE SODIUM 100 MG CAP PO SCH ×2 (09:00→20:58)
[2016-11-18] MEDS: ACETAMINOPHEN 325 MG TAB PO PRN (12:59)
[2016-11-18] MEDS: CLOPIDOGREL 75 MG TAB PO SCH (13:15)
[2016-11-18] MEDS: MULTIVIT/CA CARB/B CMPLX/FA TAB PO SCH (13:17)
[2016-11-18] MEDS: LINAGLIPTIN 5 MG TABLET PO SCH (13:17)
[2016-11-18] MEDS: GABAPENTIN 300 MG CAP PO SCH ×2 (13:17→20:58)
[2016-11-18] MEDS: ASPIRIN (EC) 81 MG TAB PO SCH (13:18)
[2016-11-18] MEDS: FOLIC ACID 1 MG TAB PO SCH (13:19)
[2016-11-18] MEDS: AMLODIPINE 10 MG TAB PO SCH (13:19)
[2016-11-18] MEDS: BACITRACIN 0.5%/ZINC 28.35 GM OINT TOP SCH ×2 (13:20→20:59)
[2016-11-18] MEDS: LOSARTAN 50 MG TAB PO SCH (13:23)
--- NOTE | 2016-11-18 13:46 | PN ---
Date/Time of Note Date/Time of Note DATE: 11/18/16 TIME: 13:42 Assessment/Plan VTE Prophylaxis VTE Prophylaxis Intervention: SCD's Lines/Catheters [facility] [place] Assessment/Plan Chief Complaint/Hosp Course Patient is undergoing hemodialysis via a left upper extremity AV fistula, patient right chest permacath was removed yesterday, patient's complaint of significant neck pain and difficulty swallowing. Will obtain MRI of the cervical spine without contrast, swallow eval. Assessment/Plan -Neck pain, cervical x-rays negative, pending MRI of the cervical spine without contrast. -Left lower extremity cellulitis, Dr. Rice is following infection disease consultation, continue antibiotics per ID. -Severe PVD, with multiple vascular intervention including a left lower extremity bypass. Dr. Ruano is following an vascular surgery. -Hemodialysis dependent end-stage renal disease, Dr. Garcia is following in nephrology consultation, continue hemodialysis. -Diabetes mellitus type 2, continue Tradjenta Lantus and NovoLog -S/p orthopedic procedures to RUE with metal prosthetic after bone Fx Further recommendations based on clinical course. Plan of care discussed with Dr. Cordero. Problems: Exam/Review of Systems Vital Signs Vitals Vital Signs Date Time Temp Pulse Resp B/P Pulse Ox O2 Delivery O2 Flow Rate FiO2 11/18/16 13:13 98.1 81 20 201/81 96 Intake and Output 11/17/16 11/17/16 11/18/16 15:00 23:00 07:00 Intake Total 760 ml Output Total 0 ml Balance 760 ml Exam Constitutional: alert, oriented Head: normocephalic Neck: supple Respiratory: clear to auscultation Cardiovascular: nl pulses Gastrointestinal: non-tender, soft Musculoskeletal: nl extremities to inspection Extremities: normal pulses Neurological: nl mental status Skin: other (LLE wound with eschar) Results Result Diagram: 11/18/1652111/18/16521 Results 24 hrs Laboratory Tests Test 11/17/16 17:30 11/17/16 20:36 11/18/16 05:22 11/18/16 08:10 Bedside Glucose 119 124 152 White Blood Count 4.1 L Red Blood Count 2.61 L Hemoglobin 8.5 L Hematocrit 27.8 L Mean Corpuscular Volume 106.5 H Mean Corpuscular Hemoglobin 32.6 Mean Corpuscular Hemoglobin Concent 30.6 L Red Cell Distribution Width 14.0 Platelet Count 214 Mean Platelet Volume 10.9 H Neutrophils % 52.9 Lymphocytes % 27.5 Monocytes % 13.5 H Eosinophils % 5.4 Basophils % 0.5 Nucleated Red Blood Cells % 0.0 Neutrophils # (Manual) 2.2 Lymphocytes # 1.1 Monocytes # 0.6 Eosinophils # 0.2 Basophils # 0.0 Nucleated Red Blood Cells # 0.0 Sodium Level 137 Potassium Level 5.1 Chloride Level 99 Carbon Dioxide Level 25 Anion Gap 18 H Blood Urea Nitrogen 70 H Creatinine 6.10 H Glucose Level 153 Calcium Level 8.1 L Test 11/18/16 12:44 Bedside Glucose 95 Medications Medications Current Medications Alprazolam (Xanax) 0.25 mg TID PRN PO ANXIETY; Start 11/13/16 at 21:30 Amlodipine Besylate (Norvasc) 10 mg DAILY PO Last administered on 11/18/16 13: 19; Admin Dose 10 MG; Start 11/14/16 at 09:00 Aspirin (Halfprin) 81 mg DAILY PO Last administered on 11/18/16 13:18; Admin Dose 81 MG; Start 11/14/16 at 09:00 Atorvastatin Calcium (Lipitor) 40 mg QHS PO Last administered on 11/17/16 20: 37; Admin Dose 40 MG; Start 11/14/16 at 21:00 Carvedilol (Coreg) 6.25 mg DAILY PO Last administered on 11/18/16 13:15; Admin Dose 6.25 MG; Start 11/14/16 at 09:00 Clonidine (Catapres) 0.2 mg TID PRN PO SBP>170; Start 11/13/16 at 21:30 Clopidogrel Bisulfate (plaVIX) 75 mg DAILY PO Last administered on 11/18/16 13 :15; Admin Dose 75 MG; Start 11/14/16 at 09:00 Docusate Sodium (Colace) 100 mg BID PO Last administered on 11/17/16 20:37; Admin Dose 100 MG; Start 11/14/16 at 09:00 Folic Acid (Folic Acid) 1 mg DAILY PO Last administered on 11/18/16 13:19; Admin Dose 1 MG; Start 11/14/16 at 09:00 Gabapentin (Neurontin) 300 mg BID PO Last administered on 11/18/16 13:17; Admin Dose 300 MG; Start 11/14/16 at 09:00 Losartan Potassium (Cozaar) 50 mg DAILY PO Last administered on 11/18/16 13:23 ; Admin Dose 50 MG; Start 11/14/16 at 09:00 Multivit/Ca Carb/ B Cmplx/FA/Prenat (Addie-Mikayla) 1 tab DAILY PO Last administered on 11/18/16 13:17; Admin Dose 1 TAB; Start 11/14/16 at 09:00 Morphine Sulfate (morphine) 2 mg Q6H PRN IV PAIN LEVEL 7-10 Last administered on 11/18/16 12:39; Admin Dose 2 MG; Start 11/13/16 at 21:30 Acetaminophen (Tylenol Tab) 650 mg Q6H PRN PO ELEVATED TEMPERATURE Last administered on 11/18/16 12:59; Admin Dose 650 MG; Start 11/13/16 at 21:30 Miscellaneous Information 1 ea NOTE XX ; Start 11/13/16 at 22:00 Glucose (Glutose) 15 gm Q15M PRN PO DECREASED GLUCOSE; Start 11/13/16 at 22:00 Glucose (Glutose) 22.5 gm Q15M PRN PO DECREASED GLUCOSE; Start 11/13/16 at 22: 00 Dextrose (D50w Syringe) 25 ml Q15M PRN IV DECREASED GLUCOSE; Start 11/13/16 at 22:00 Dextrose (D50w Syringe) 50 ml Q15M PRN IV DECREASED GLUCOSE; Start 11/13/16 at 22:00 Glucagon (Glucagen) 1 mg Q15M PRN IM DECREASED GLUCOSE; Start 11/13/16 at 22:00 Glucose 15 gm 15 gm Q15M PRN BUCCAL DECREASED GLUCOSE; Start 11/13/16 at 22:00 Sodium Chloride (NS) 1,000 ml @ 0 mls/hr Q0M PRN IV TO KEEP SBP ABOVE 90; Start 11/13/16 at 22:30 Diagnostic Test (Pha) (Accu-Chek) 1 ea 02 XX ; Start 11/14/16 at 02:00 Acetaminophen/ Hydrocodone Bitart ([place] (5/325)) 1 tab Q4H PRN PO PAIN LEVEL 4 -6 Last administered on 11/18/16 02:27; Admin Dose 1 TAB; Start 11/14/16 at 13: 00 Linagliptin (Tradjenta) 5 mg DAILY PO Last administered on 11/18/16 13:17; Admin Dose 5 MG; Start 11/14/16 at 12:30 Acetaminophen 325 mg 325 mg TuThSa PO ; Start 11/15/16 at 15:30 Sodium Chloride (NS) 1,000 ml @ 0 mls/hr Q0M PRN IV TO KEEP SBP ABOVE 90; Start 11/14/16 at 16:54 Diphenhydramine HCl (Benadryl) 50 mg Q8 PO Last administered on 11/18/16 06:23 ; Admin Dose 50 MG; Start 11/15/16 at 14:00 Bacitracin (Bacitracin 0.5%/ Zinc Oint) 1 applic BID TOP Last administered on 13:20; Admin Dose 1 APPLIC; Start 11/15/16 at 21:00 Insulin Glargine (Lantus) 30 unit HS SC Last administered on 11/17/16 20:49; Admin Dose 30 UNIT; Start 11/16/16 at 21:00 Cyclobenzaprine HCl (Flexeril) 5 mg Q6 PO Last administered on 11/18/16 13:19 ; Admin Dose 5 MG; Start 11/16/16 at 18:00 Multi-Ingredient Ointment (Eucerin Cream) 1 applic BID TOP Last administered on 11/18/16 09:00; Admin Dose 1 APPLIC; Start 11/17/16 at 08:49 Miscellaneous Information (*Rx Drug Level Order Reminder*) VANCO RANDOM LEVEL... ONCE ONCE XX ; Start 11/19/16 at 05:00; Stop 11/19/16 at 05:01 ANTHONY DUPREE Nov 18, 2016 13:46
[2016-11-18] MEDS: ACETAMINOPHEN 325 MG TAB PO SCH (15:27)
--- NOTE | 2016-11-18 15:30 | CONS ---
CORONA HOLLIS CUSTOMER SUPPORT ADVISOR 11/18/16 1530: Date/Time of Note Date/Time of Note DATE: 11/18/16 TIME: 15:28 Assessment/Plan Assessment/Plan Chief Complaint/Hosp Course assessment/impression: - skin and soft tissue infection of LLE with eschar. CT was negative for osteomyelitis - pain of LLE likely multifactorial: skin and soft tissue infection, PVD, lymphedema - PVD - s/p bypass of LLE - DM - Hgb A1c 8.8% - h/o OM of b/l feet, s/p amputation of R two toes - diabetic neuropathy - ESRD on HD 3 times a week, now via LUE AVF - s/p R chest wall permacath removal 11/17/2016 - Anemia of chronic disease - CHF and CAD - s/p orthopedic procedures to RUE with metal prosthetic after bone Fx - dry skin and pruritus, which started prior to admission - possible red man syndrome due to vancomycin - neck pain, upper back pain and shoulder pain - C-Spine x-ray showed no acute process recommendations: - continue renally dosed vancomycin (11/13/2016-) with premedication protocol: benadryl and tylenol 30 min prior to infusion, and extended infusion time of 2 hrs. If Pt gets discharged, we recommend that Pt continue to get IV vancomycin at the time of dialysis ending on 11/20/2016 - keep LEs elevated to decrease lymphedema Management d/w patient and Dr. Sheets Problems: Consultation Date/Type/Reason Admit Date/Time Nov 13, 2016 at 18:46 Initial Consult Date 11/14/16 Type of Consultation: Infectious Disease Referring Provider: VIOLET RUDOLPH 24 HR Interval Summary Free Text/Dictation Permacath was removed from R chest wall yesterday. Pt c/o dysphagia, hoarse voice, chills, severe posterior neck pain, shoulder pain and upper back pain that worsened after having HD and was unrelieved with Morphine. Rates pain 01/13. Awaiting MRI C-Spine Exam/Review of Systems Vital Signs Vitals Vital Signs Date Time Temp Pulse Resp B/P Pulse Ox O2 Delivery O2 Flow Rate FiO2 11/18/16 13:13 98.1 81 20 201/81 96 Intake and Output 11/17/16 11/17/16 11/18/16 15:00 23:00 07:00 Intake Total 760 ml Output Total 0 ml Balance 760 ml Exam Constitutional: alert, distress (mild), obese, oriented, well developed Head: atraumatic, normocephalic Eyes: nl conjunctiva, nl sclera ENMT: nl external ears & nose Neck: supple Respiratory: clear to auscultation Cardiovascular: edema, regular rate and rhythm Gastrointestinal: non-tender, other (obese), soft Extremities: other (LUE AV fistula +bruit/thrill) Neurological: nl mental status Skin: rash or lesions (Small eschar on LLE with surrounding erythema/bulla containing clear fluid ; TTP) Results Result Diagram: 11/18/1652111/18/16521 Results 24 hrs Laboratory Tests Test 11/17/16 17:30 11/17/16 20:36 11/18/16 05:22 11/18/16 08:10 Bedside Glucose 119 124 152 White Blood Count 4.1 L Red Blood Count 2.61 L Hemoglobin 8.5 L Hematocrit 27.8 L Mean Corpuscular Volume 106.5 H Mean Corpuscular Hemoglobin 32.6 Mean Corpuscular Hemoglobin Concent 30.6 L Red Cell Distribution Width 14.0 Platelet Count 214 Mean Platelet Volume 10.9 H Neutrophils % 52.9 Lymphocytes % 27.5 Monocytes % 13.5 H Eosinophils % 5.4 Basophils % 0.5 Nucleated Red Blood Cells % 0.0 Neutrophils # (Manual) 2.2 Lymphocytes # 1.1 Monocytes # 0.6 Eosinophils # 0.2 Basophils # 0.0 Nucleated Red Blood Cells # 0.0 Sodium Level 137 Potassium Level 5.1 Chloride Level 99 Carbon Dioxide Level 25 Anion Gap 18 H Blood Urea Nitrogen 70 H Creatinine 6.10 H Glucose Level 153 Calcium Level 8.1 L Test 11/18/16 12:44 Bedside Glucose 95 Medications Medications Current Medications Alprazolam (Xanax) 0.25 mg TID PRN PO ANXIETY; Start 11/13/16 at 21:30 Amlodipine Besylate (Norvasc) 10 mg DAILY PO Last administered on 11/18/16 13: 19; Admin Dose 10 MG; Start 11/14/16 at 09:00 Aspirin (Halfprin) 81 mg DAILY PO Last administered on 11/18/16 13:18; Admin Dose 81 MG; Start 11/14/16 at 09:00 Atorvastatin Calcium (Lipitor) 40 mg QHS PO Last administered on 11/17/16 20: 37; Admin Dose 40 MG; Start 11/14/16 at 21:00 Carvedilol (Coreg) 6.25 mg DAILY PO Last administered on 11/18/16 13:15; Admin Dose 6.25 MG; Start 11/14/16 at 09:00 Clonidine (Catapres) 0.2 mg TID PRN PO SBP>170; Start 11/13/16 at 21:30 Clopidogrel Bisulfate (plaVIX) 75 mg DAILY PO Last administered on 11/18/16 13 :15; Admin Dose 75 MG; Start 11/14/16 at 09:00 Docusate Sodium (Colace) 100 mg BID PO Last administered on 11/17/16 20:37; Admin Dose 100 MG; Start 11/14/16 at 09:00 Folic Acid (Folic Acid) 1 mg DAILY PO Last administered on 11/18/16 13:19; Admin Dose 1 MG; Start 11/14/16 at 09:00 Gabapentin (Neurontin) 300 mg BID PO Last administered on 11/18/16 13:17; Admin Dose 300 MG; Start 11/14/16 at 09:00 Losartan Potassium (Cozaar) 50 mg DAILY PO Last administered on 11/18/16 13:23 ; Admin Dose 50 MG; Start 11/14/16 at 09:00 Multivit/Ca Carb/ B Cmplx/FA/Prenat (Addie-Mikayla) 1 tab DAILY PO Last administered on 11/18/16 13:17; Admin Dose 1 TAB; Start 11/14/16 at 09:00 Morphine Sulfate (morphine) 2 mg Q6H PRN IV PAIN LEVEL 7-10 Last administered on 11/18/16 12:39; Admin Dose 2 MG; Start 11/13/16 at 21:30 Acetaminophen (Tylenol Tab) 650 mg Q6H PRN PO ELEVATED TEMPERATURE Last administered on 11/18/16 12:59; Admin Dose 650 MG; Start 11/13/16 at 21:30 Miscellaneous Information 1 ea NOTE XX ; Start 11/13/16 at 22:00 Glucose (Glutose) 15 gm Q15M PRN PO DECREASED GLUCOSE; Start 11/13/16 at 22:00 Glucose (Glutose) 22.5 gm Q15M PRN PO DECREASED GLUCOSE; Start 11/13/16 at 22: 00 Dextrose (D50w Syringe) 25 ml Q15M PRN IV DECREASED GLUCOSE; Start 11/13/16 at 22:00 Dextrose (D50w Syringe) 50 ml Q15M PRN IV DECREASED GLUCOSE; Start 11/13/16 at 22:00 Glucagon (Glucagen) 1 mg Q15M PRN IM DECREASED GLUCOSE; Start 11/13/16 at 22:00 Glucose 15 gm 15 gm Q15M PRN BUCCAL DECREASED GLUCOSE; Start 11/13/16 at 22:00 Sodium Chloride (NS) 1,000 ml @ 0 mls/hr Q0M PRN IV TO KEEP SBP ABOVE 90; Start 11/13/16 at 22:30 Diagnostic Test (Pha) (Accu-Chek) 1 ea 02 XX ; Start 11/14/16 at 02:00 Acetaminophen/ Hydrocodone Bitart ([place] (5/325)) 1 tab Q4H PRN PO PAIN LEVEL 4 -6 Last administered on 11/18/16 02:27; Admin Dose 1 TAB; Start 11/14/16 at 13: 00 Linagliptin (Tradjenta) 5 mg DAILY PO Last administered on 11/18/16 13:17; Admin Dose 5 MG; Start 11/14/16 at 12:30 Acetaminophen 325 mg 325 mg TuThSa PO ; Start 11/15/16 at 15:30 Sodium Chloride (NS) 1,000 ml @ 0 mls/hr Q0M PRN IV TO KEEP SBP ABOVE 90; Start 11/14/16 at 16:54 Diphenhydramine HCl (Benadryl) 50 mg Q8 PO Last administered on 11/18/16 06:23 ; Admin Dose 50 MG; Start 11/15/16 at 14:00 Bacitracin (Bacitracin 0.5%/ Zinc Oint) 1 applic BID TOP Last administered on 13:20; Admin Dose 1 APPLIC; Start 11/15/16 at 21:00 Insulin Glargine (Lantus) 30 unit HS SC Last administered on 11/17/16 20:49; Admin Dose 30 UNIT; Start 11/16/16 at 21:00 Cyclobenzaprine HCl (Flexeril) 5 mg Q6 PO Last administered on 11/18/16 13:19 ; Admin Dose 5 MG; Start 11/16/16 at 18:00 Multi-Ingredient Ointment (Eucerin Cream) 1 applic BID TOP Last administered on 11/18/16 09:00; Admin Dose 1 APPLIC; Start 11/17/16 at 08:49 Miscellaneous Information (*Rx Drug Level Order Reminder*) VANCO RANDOM LEVEL... ONCE ONCE XX ; Start 11/19/16 at 05:00; Stop 11/19/16 at 05:01 ALEXANDER SHEETS M.D. 11/20/16 1735: Assessment/Plan Assessment/Plan Additional Assessment/Plan [place] attestation: I discussed the management with ROBERT Hollis and agree with above. Exam/Review of Systems Results Result Diagram: 11/18/16 0522 11/18/16 0522 CORONA HOLLIS NP Nov 18, 2016 15:30 ALEXANDER SHEETS M.D. Nov 20, 2016 17:35
[2016-11-18] MEDS: ATORVASTATIN 40 MG TAB PO SCH (20:58)
[2016-11-18] MEDS: INSULIN GLARGINE [LANtus] 3 ML PEN SC SCH (21:05)
--- NOTE | 2016-11-18 23:06 | CONS ---
Date/Time of Note Date/Time of Note DATE: 11/18/16 TIME: 23:05 Assessment/Plan Assessment/Plan Chief Complaint/Hosp Course A/P LEG CELLULITES ESRD DM HTN s/p permacath removal ur retention folry prn PLAN CONTINUE hd per id Problems: Consultation Date/Type/Reason Admit Date/Time Nov 13, 2016 at 18:46 Initial Consult Date 11/14/16 Type of Consultation: yossi Referring Provider: VIOLET RUDOLPH 24 HR Interval Summary Constitutional: other (ur retention aguayo prn) Exam/Review of Systems Vital Signs Vitals Vital Signs Date Time Temp Pulse Resp B/P Pulse Ox O2 Delivery O2 Flow Rate FiO2 11/18/16 13:13 98.1 81 20 201/81 96 Intake and Output 11/17/16 11/17/16 11/18/16 15:00 23:00 07:00 Intake Total 760 ml Output Total 0 ml Balance 760 ml Exam Neck: supple Respiratory: clear to auscultation Cardiovascular: regular rate and rhythm Gastrointestinal: bowel sounds, soft Extremities: edema (+) Results Result Diagram: 11/18/1622 11/18/16 0522 Results 24 hrs Laboratory Tests Test 11/18/16 05:22 11/18/16 08:10 11/18/16 12:44 11/18/16 17:20 White Blood Count 4.1 L Red Blood Count 2.61 L Hemoglobin 8.5 L Hematocrit 27.8 L Mean Corpuscular Volume 106.5 H Mean Corpuscular Hemoglobin 32.6 Mean Corpuscular Hemoglobin Concent 30.6 L Red Cell Distribution Width 14.0 Platelet Count 214 Mean Platelet Volume 10.9 H Neutrophils % 52.9 Lymphocytes % 27.5 Monocytes % 13.5 H Eosinophils % 5.4 Basophils % 0.5 Nucleated Red Blood Cells % 0.0 Neutrophils # (Manual) 2.2 Lymphocytes # 1.1 Monocytes # 0.6 Eosinophils # 0.2 Basophils # 0.0 Nucleated Red Blood Cells # 0.0 Sodium Level 137 Potassium Level 5.1 Chloride Level 99 Carbon Dioxide Level 25 Anion Gap 18 H Blood Urea Nitrogen 70 H Creatinine 6.10 H Glucose Level 153 Calcium Level 8.1 L Bedside Glucose 152 95 80 Test 11/18/16 20:52 Bedside Glucose 122 Medications Medications Current Medications Alprazolam (Xanax) 0.25 mg TID PRN PO ANXIETY; Start 11/13/16 at 21:30 Amlodipine Besylate (Norvasc) 10 mg DAILY PO Last administered on 11/18/16 13: 19; Admin Dose 10 MG; Start 11/14/16 at 09:00 Aspirin (Halfprin) 81 mg DAILY PO Last administered on 11/18/16 13:18; Admin Dose 81 MG; Start 11/14/16 at 09:00 Atorvastatin Calcium (Lipitor) 40 mg QHS PO Last administered on 11/18/16 20: 58; Admin Dose 40 MG; Start 11/14/16 at 21:00 Carvedilol (Coreg) 6.25 mg DAILY PO Last administered on 11/18/16 13:15; Admin Dose 6.25 MG; Start 11/14/16 at 09:00 Clonidine (Catapres) 0.2 mg TID PRN PO SBP>170; Start 11/13/16 at 21:30 Clopidogrel Bisulfate (plaVIX) 75 mg DAILY PO Last administered on 11/18/16 13 :15; Admin Dose 75 MG; Start 11/14/16 at 09:00 Docusate Sodium (Colace) 100 mg BID PO Last administered on 11/18/16 20:58; Admin Dose 100 MG; Start 11/14/16 at 09:00 Folic Acid (Folic Acid) 1 mg DAILY PO Last administered on 11/18/16 13:19; Admin Dose 1 MG; Start 11/14/16 at 09:00 Gabapentin (Neurontin) 300 mg BID PO Last administered on 11/18/16 20:58; Admin Dose 300 MG; Start 11/14/16 at 09:00 Losartan Potassium (Cozaar) 50 mg DAILY PO Last administered on 11/18/16 13:23 ; Admin Dose 50 MG; Start 11/14/16 at 09:00 Multivit/Ca Carb/ B Cmplx/FA/Prenat (Y[place]i-Mikayla) 1 tab DAILY PO Last administered on 11/18/16 13:17; Admin Dose 1 TAB; Start 11/14/16 at 09:00 Morphine Sulfate (morphine) 2 mg Q6H PRN IV PAIN LEVEL 7-10 Last administered on 11/18/16 19:51; Admin Dose 2 MG; Start 11/13/16 at 21:30 Acetaminophen (Tylenol Tab) 650 mg Q6H PRN PO ELEVATED TEMPERATURE Last administered on 11/18/16 12:59; Admin Dose 650 MG; Start 11/13/16 at 21:30 Miscellaneous Information 1 ea NOTE XX ; Start 11/13/16 at 22:00 Glucose (Glutose) 15 gm Q15M PRN PO DECREASED GLUCOSE; Start 11/13/16 at 22:00 Glucose (Glutose) 22.5 gm Q15M PRN PO DECREASED GLUCOSE; Start 11/13/16 at 22: 00 Dextrose (D50w Syringe) 25 ml Q15M PRN IV DECREASED GLUCOSE; Start 11/13/16 at 22:00 Dextrose (D50w Syringe) 50 ml Q15M PRN IV DECREASED GLUCOSE; Start 11/13/16 at 22:00 Glucagon (Glucagen) 1 mg Q15M PRN IM DECREASED GLUCOSE; Start 11/13/16 at 22:00 Glucose 15 gm 15 gm Q15M PRN BUCCAL DECREASED GLUCOSE; Start 11/13/16 at 22:00 Sodium Chloride (NS) 1,000 ml @ 0 mls/hr Q0M PRN IV TO KEEP SBP ABOVE 90; Start 11/13/16 at 22:30 Diagnostic Test (Pha) (Accu-Chek) 1 ea 02 XX ; Start 11/14/16 at 02:00 Acetaminophen/ Hydrocodone Bitart ([place] (5/325)) 1 tab Q4H PRN PO PAIN LEVEL 4 -6 Last administered on 11/18/16 22:39; Admin Dose 1 TAB; Start 11/14/16 at 13: 00 Linagliptin (Tradjenta) 5 mg DAILY PO Last administered on 11/18/16 13:17; Admin Dose 5 MG; Start 11/14/16 at 12:30 Acetaminophen 325 mg 325 mg TuThSa PO ; Start 11/15/16 at 15:30 Sodium Chloride (NS) 1,000 ml @ 0 mls/hr Q0M PRN IV TO KEEP SBP ABOVE 90; Start 11/14/16 at 16:54 Diphenhydramine HCl (Benadryl) 50 mg Q8 PO Last administered on 11/18/16 22:32 ; Admin Dose 50 MG; Start 11/15/16 at 14:00 Bacitracin (Bacitracin 0.5%/ Zinc Oint) 1 applic BID TOP Last administered on 20:59; Admin Dose 1 APPLIC; Start 11/15/16 at 21:00 Insulin Glargine (Lantus) 30 unit HS SC Last administered on 11/18/16 21:05; Admin Dose 30 UNIT; Start 11/16/16 at 21:00 Cyclobenzaprine HCl (Flexeril) 5 mg Q6 PO Last administered on 11/18/16 17:34 ; Admin Dose 5 MG; Start 11/16/16 at 18:00 Multi-Ingredient Ointment (Eucerin Cream) 1 applic BID TOP Last administered on 11/18/16 20:59; Admin Dose 1 APPLIC; Start 11/17/16 at 08:49 Miscellaneous Information (*Rx Drug Level Order Reminder*) VANCO RANDOM LEVEL... ONCE ONCE XX ; Start 11/19/16 at 05:00; Stop 11/19/16 at 05:01 ZOFIA REAL MD Nov 18, 2016 23:06
[2016-11-19] MEDS: CYCLOBENZAPRINE 10 MG TAB PO SCH ×5 (00:21→23:13)
[2016-11-19 02:00] VITALS: BP 150/67; RESP 20
[2016-11-19] MEDS: ACCU-CHEK XX SCH (02:00)
[2016-11-19] MEDS: morphine 2 MG INJ IV PRN ×4 (02:08→22:43)
[2016-11-19] MEDS: DIPHENHYDRAMINE 50 MG CAP PO SCH ×3 (05:47→22:00)
[2016-11-19] MEDS: FUROSEMIDE 40 MG TAB PO SCH ×2 (05:47→17:03)
[2016-11-19] MEDS: HYDROCODONE/APAP (5/325) TAB PO PRN ×2 (05:47→20:58)
[2016-11-19 06:09] LABS: BASOPHILS % 0.5 % (0.0-2.0); EOSINOPHILS # 0.2 10^3/ul (0.0-0.5); EOSINOPHILS % 4.9 % (0.0-7.0); HEMATOCRIT 26.4 % (37.0-47.0); HEMOGLOBIN 8.1 g/dl (12.0-16.0); LYMPHOCYTES # 1.2 10^3/ul (0.8-2.9); LYMPHOCYTES % 33.6 % (15.0-51.0); MEAN CORPUSCULAR HEMOGLOBIN 32.5 pg (29.0-33.0); MEAN CORPUSCULAR HGB CONC 30.7 g/dl (32.0-37.0); MONOCYTE # 0.5 10^3/ul (0.3-0.9); PLATELET COUNT 210 10^3/UL (140-415); RED BLOOD COUNT 2.49 10^6/ul (4.20-5.40); RED CELL DISTRIBUTION WIDTH 13.9 % (11.5-14.5); WHITE BLOOD COUNT 3.7 10^3/ul (4.8-10.8)
[2016-11-19 06:34] LABS: CALCIUM 8.3 mg/dl (8.4-10.2); CREATININE 4.97 mg/dl (0.44-1.00); POTASSIUM 4.6 mmol/L (3.5-5.1)
[2016-11-19 07:58] VITALS: BP 147/65; RESP 18
[2016-11-19] MEDS: GABAPENTIN 300 MG CAP PO SCH ×2 (08:15→20:24)
[2016-11-19] MEDS: MULTIVIT/CA CARB/B CMPLX/FA TAB PO SCH (08:15)
[2016-11-19] MEDS: SEVELAMER CARBONATE 0.8 GM PKT PO SCH ×3 (08:15→17:04)
[2016-11-19] MEDS: CLOPIDOGREL 75 MG TAB PO SCH (08:15)
[2016-11-19] MEDS: LINAGLIPTIN 5 MG TABLET PO SCH (08:15)
[2016-11-19] MEDS: ASPIRIN (EC) 81 MG TAB PO SCH (08:15)
[2016-11-19] MEDS: DOCUSATE SODIUM 100 MG CAP PO SCH ×2 (08:15→20:24)
[2016-11-19] MEDS: PANTOPRAZOLE (EC) 40 MG TAB PO SCH (08:15)
[2016-11-19] MEDS: FOLIC ACID 1 MG TAB PO SCH (08:15)
[2016-11-19] MEDS: EUCERIN 113 GM CR TOP SCH ×2 (08:16→22:41)
[2016-11-19] MEDS: AMLODIPINE 10 MG TAB PO SCH (08:16)
[2016-11-19] MEDS: BACITRACIN 0.5%/ZINC 28.35 GM OINT TOP SCH ×2 (08:16→20:23)
[2016-11-19] MEDS: LOSARTAN 50 MG TAB PO SCH (08:17)
[2016-11-19] MEDS: INSULIN ASPART [NOVOLOG] 3 ML PEN SC SCH ×7 (08:20→20:24)
--- NOTE | 2016-11-19 10:33 | CONS ---
[facility] HCIS Consult Follow up SOAP Patient Name: Nikki Petit Unit Number: [id number] Date of : 1960 Patient Status: Admitted Inpatient Attending Doctor: Nolan Cordero MD Edit: ALEXANDER SHEETS M.D. on 11/20/16 @ 17:35 [place] attestation: I discussed the management with ROBERT Curiel and agree with her note. Date/Time of Note Date/Time of Note DATE: 11/19/16 TIME: 10:20 Consult Date/Type/Reason Admit Date/Time Nov 13, 2016 at 18:46 Initial Consult Date 11/14/16 Type of Consultation: INFECTIOUS DISEASE Ordering Provider: VIOLET RUDOLPH Subjective Patient reports that left leg still red and swollen but shows an improvement Objective Vital Signs Date Time Temp Pulse Resp B/P Pulse Ox O2 Delivery O2 Flow Rate FiO2 11/19/16 07:58 98.4 69 18 147/65 92 11/18/16 20:00 Room Air Intake and Output 11/18/16 11/18/16 11/19/16 15:00 23:00 07:00 Intake Total 500 ml 600 ml 550 ml Output Total 2500 ml 0 ml Balance -2000 ml 600 ml 550 ml Exam Constitutional: obese female seated at the EOB in no acute distress Head: atraumatic, normocephalic Eyes: normal conjunctiva, nl sclera ENMT: normal external ears & nose Neck: supple Respiratory: clear to auscultation Cardiovascular: +2 pitting edema in LLE and trace edema RLE, regular rate and rhythm Gastrointestinal: soft, obese, non-tender, non-distended Extremities: warm, dyr, sensation intact wiht normal skin turgor, saline lock RAC, no e/o infection & AV shunt LUE +bruit/thrill Neurological: normal mental status & speech Skin: warm, dry, small black eschar on LLE with surrounding erythema Results/Medications Result Diagram: 11/19/16 0537 11/19/16 0537 Results 24 hrs Laboratory Tests Test 11/18/16 12:44 11/18/16 17:20 11/18/16 20:52 11/19/16 05:37 Bedside Glucose 95 80 122 White Blood Count 3.7 L Red Blood Count 2.49 L Hemoglobin 8.1 L Hematocrit 26.4 L Mean Corpuscular Volume 106.0 H Mean Corpuscular Hemoglobin 32.5 Mean Corpuscular Hemoglobin Concent 30.7 L Red Cell Distribution Width 13.9 Platelet Count 210 Mean Platelet Volume 11.0 H Neutrophils % 48.0 Lymphocytes % 33.6 Monocytes % 13.0 H Eosinophils % 4.9 Basophils % 0.5 Nucleated Red Blood Cells % 0.0 Neutrophils # (Manual) 1.8 Lymphocytes # 1.2 Monocytes # 0.5 Eosinophils # 0.2 Basophils # 0.0 Nucleated Red Blood Cells # 0.0 Sodium Level 140 Potassium Level 4.6 Chloride Level 97 Carbon Dioxide Level 27 Anion Gap 21 H Blood Urea Nitrogen 55 H Creatinine 4.97 #H Glucose Level 116 Calcium Level 8.3 L Random Vancomycin Level 15.9 Test 11/19/16 08:18 Bedside Glucose 145 Medications Current Medications Alprazolam (Xanax) 0.25 mg TID PRN PO ANXIETY; Start 11/13/16 at 21:30 Amlodipine Besylate (Norvasc) 10 mg DAILY PO Last administered on 11/19/16 08: 16; Admin Dose 10 MG; Start 11/14/16 at 09:00 Aspirin (Halfprin) 81 mg DAILY PO Last administered on 11/19/16 08:15; Admin Dose 81 MG; Start 11/14/16 at 09:00 Atorvastatin Calcium (Lipitor) 40 mg QHS PO Last administered on 11/18/16 20: 58; Admin Dose 40 MG; Start 11/14/16 at 21:00 Carvedilol (Coreg) 6.25 mg DAILY PO Last administered on 11/19/16 08:17; Admin Dose 6.25 MG; Start 11/14/16 at 09:00 Clonidine (Catapres) 0.2 mg TID PRN PO SBP>170; Start 11/13/16 at 21:30 Clopidogrel Bisulfate (plaVIX) 75 mg DAILY PO Last administered on 11/19/16 08 :15; Admin Dose 75 MG; Start 11/14/16 at 09:00 Docusate Sodium (Colace) 100 mg BID PO Last administered on 11/19/16 08:15; Admin Dose 100 MG; Start 11/14/16 at 09:00 Folic Acid (Folic Acid) 1 mg DAILY PO Last administered on 11/19/16 08:15; Admin Dose 1 MG; Start 11/14/16 at 09:00 Gabapentin (Neurontin) 300 mg BID PO Last administered on 11/19/16 08:15; Admin Dose 300 MG; Start 11/14/16 at 09:00 Losartan Potassium (Cozaar) 50 mg DAILY PO Last administered on 11/19/16 08:17 ; Admin Dose 50 MG; Start 11/14/16 at 09:00 Multivit/Ca Carb/ B Cmplx/FA/Prenat (Addie-Mikayla) 1 tab DAILY PO Last administered on 11/19/16 08:15; Admin Dose 1 TAB; Start 11/14/16 at 09:00 Morphine Sulfate (morphine) 2 mg Q6H PRN IV PAIN LEVEL 7-10 Last administered on 11/19/16 02:08; Admin Dose 2 MG; Start 11/13/16 at 21:30 Acetaminophen (Tylenol Tab) 650 mg Q6H PRN PO ELEVATED TEMPERATURE Last administered on 11/18/16 12:59; Admin Dose 650 MG; Start 11/13/16 at 21:30 Miscellaneous Information 1 ea NOTE XX ; Start 11/13/16 at 22:00 Glucose (Glutose) 15 gm Q15M PRN PO DECREASED GLUCOSE; Start 11/13/16 at 22:00 Glucose (Glutose) 22.5 gm Q15M PRN PO DECREASED GLUCOSE; Start 11/13/16 at 22: 00 Dextrose (D50w Syringe) 25 ml Q15M PRN IV DECREASED GLUCOSE; Start 11/13/16 at 22:00 Dextrose (D50w Syringe) 50 ml Q15M PRN IV DECREASED GLUCOSE; Start 11/13/16 at 22:00 Glucagon (Glucagen) 1 mg Q15M PRN IM DECREASED GLUCOSE; Start 11/13/16 at 22:00 Glucose 15 gm 15 gm Q15M PRN BUCCAL DECREASED GLUCOSE; Start 11/13/16 at 22:00 Sodium Chloride (NS) 1,000 ml @ 0 mls/hr Q0M PRN IV TO KEEP SBP ABOVE 90; Start 11/13/16 at 22:30 Diagnostic Test (Pha) (Accu-Chek) 1 ea 02 XX ; Start 11/14/16 at 02:00 Acetaminophen/ Hydrocodone Bitart ([place] (5/325)) 1 tab Q4H PRN PO PAIN LEVEL 4 -6 Last administered on 11/19/16 05:47; Admin Dose 1 TAB; Start 11/14/16 at 13: 00 Linagliptin (Tradjenta) 5 mg DAILY PO Last administered on 11/19/16 08:15; Admin Dose 5 MG; Start 11/14/16 at 12:30 Acetaminophen 325 mg 325 mg TuThSa PO ; Start 11/15/16 at 15:30 Sodium Chloride (NS) 1,000 ml @ 0 mls/hr Q0M PRN IV TO KEEP SBP ABOVE 90; Start 11/14/16 at 16:54 Diphenhydramine HCl (Benadryl) 50 mg Q8 PO Last administered on 11/19/16 05:47 ; Admin Dose 50 MG; Start 11/15/16 at 14:00 Bacitracin (Bacitracin 0.5%/ Zinc Oint) 1 applic BID TOP Last administered on 08:16; Admin Dose 1 APPLIC; Start 11/15/16 at 21:00 Insulin Glargine (Lantus) 30 unit HS SC Last administered on 11/18/16 21:05; Admin Dose 30 UNIT; Start 11/16/16 at 21:00 Cyclobenzaprine HCl (Flexeril) 5 mg Q6 PO Last administered on 11/19/16 05:47 ; Admin Dose 5 MG; Start 11/16/16 at 18:00 Multi-Ingredient Ointment 1 applic 1 applic BID TOP Last administered on 08:16; Admin Dose 1 APPLIC; Start 11/17/16 at 08:49 Vancomycin HCl (Vancocin) 250 ml @ 125 mls/hr Q96H IVPB ; Start 11/19/16 at 22: 00 Assessment/Plan Chief Complaint/Hosp Course Assessment/impression: - skin and soft tissue infection of LLE with eschar. CT was negative for osteomyelitis - pain of LLE likely multifactorial: skin and soft tissue infection, PVD, lymphedema - PVD - s/p bypass of LLE - DM - Hgb A1c 8.8% - h/o OM of b/l feet, s/p amputation of R two toes - diabetic neuropathy - ESRD on HD 3 times a week, now via LUE AVF - s/p R chest wall permacath removal 11/17/2016 - Anemia of chronic disease - CHF and CAD - s/p orthopedic procedures to RUE with metal prosthetic after bone Fx - dry skin and pruritus, which started prior to admission - possible red man syndrome due to vancomycin - neck pain, upper back pain and shoulder pain - C-Spine x-ray showed no acute process Recommendations: - continue renally dosed vancomycin (11/13/2016-) with premedication protocol: Benadryl and Tylenol 30 min prior to infusion, and extended infusion time of 2 hrs. - If Pt gets discharged, we recommend that patiet continue to get IV vancomycin at the time of dialysis ending on 11/20/2016 - keep LEs elevated to decrease lymphedema Management d/w patient, nurse Buddy and Dr. Sheets Problems: VADIM CURIEL Nov 19, 2016 10:30
[2016-11-19 14:00] VITALS: BP 123/59; RESP 18
--- NOTE | 2016-11-19 14:17 | PN ---
Date/Time of Note Date/Time of Note DATE: 11/19/16 TIME: 14:14 Assessment/Plan VTE Prophylaxis VTE Prophylaxis Intervention: SCD's Lines/Catheters IV [facility] Saline Lock Assessment/Plan Chief Complaint/Hosp Course Patient was complains of right sided neck tenderness and odynophagia, pending MRI of the cervical spine without contrast. Assessment/Plan -Neck pain, cervical x-rays negative, pending MRI of the cervical spine without contrast. -Left lower extremity cellulitis, Dr. Rice is following infection disease consultation, continue antibiotics per ID. -Severe PVD, with multiple vascular intervention including a left lower extremity bypass. Dr. Ruano is following an vascular surgery. -Hemodialysis dependent end-stage renal disease, Dr. Garcia is following in nephrology consultation, continue hemodialysis. -Diabetes mellitus type 2, continue Tradjenta Lantus and NovoLog -S/p orthopedic procedures to RUE with metal prosthetic after bone Fx Further recommendations based on clinical course. Plan of care discussed with Dr. Cordero. Problems: Exam/Review of Systems Vital Signs Vitals Vital Signs Date Time Temp Pulse Resp B/P Pulse Ox O2 Delivery O2 Flow Rate FiO2 11/19/16 07:58 98.4 69 18 147/65 92 11/18/16 20:00 Room Air Intake and Output 11/18/16 11/18/16 11/19/16 15:00 23:00 07:00 Intake Total 500 ml 600 ml 550 ml Output Total 2500 ml 0 ml Balance -2000 ml 600 ml 550 ml Exam Constitutional: alert, oriented Neck: supple Respiratory: clear to auscultation Cardiovascular: nl pulses Gastrointestinal: non-tender, soft Musculoskeletal: nl extremities to inspection Extremities: normal pulses Neurological: nl mental status Skin: other (LLE wound with eschar) Results Result Diagram: 11/19/16 0537 11/19/16 0537 Results 24 hrs Laboratory Tests Test 11/18/16 17:20 11/18/16 20:52 11/19/16 05:37 11/19/16 08:18 Bedside Glucose 80 122 145 White Blood Count 3.7 L Red Blood Count 2.49 L Hemoglobin 8.1 L Hematocrit 26.4 L Mean Corpuscular Volume 106.0 H Mean Corpuscular Hemoglobin 32.5 Mean Corpuscular Hemoglobin Concent 30.7 L Red Cell Distribution Width 13.9 Platelet Count 210 Mean Platelet Volume 11.0 H Neutrophils % 48.0 Lymphocytes % 33.6 Monocytes % 13.0 H Eosinophils % 4.9 Basophils % 0.5 Nucleated Red Blood Cells % 0.0 Neutrophils # (Manual) 1.8 Lymphocytes # 1.2 Monocytes # 0.5 Eosinophils # 0.2 Basophils # 0.0 Nucleated Red Blood Cells # 0.0 Sodium Level 140 Potassium Level 4.6 Chloride Level 97 Carbon Dioxide Level 27 Anion Gap 21 H Blood Urea Nitrogen 55 H Creatinine 4.97 #H Glucose Level 116 Calcium Level 8.3 L Random Vancomycin Level 15.9 Test 11/19/16 11:49 11/19/16 12:14 Bedside Glucose 69 L 78 Medications Medications Current Medications Alprazolam (Xanax) 0.25 mg TID PRN PO ANXIETY; Start 11/13/16 at 21:30 Amlodipine Besylate (Norvasc) 10 mg DAILY PO Last administered on 11/19/16 08: 16; Admin Dose 10 MG; Start 11/14/16 at 09:00 Aspirin (Halfprin) 81 mg DAILY PO Last administered on 11/19/16 08:15; Admin Dose 81 MG; Start 11/14/16 at 09:00 Atorvastatin Calcium (Lipitor) 40 mg QHS PO Last administered on 11/18/16 20: 58; Admin Dose 40 MG; Start 11/14/16 at 21:00 Carvedilol (Coreg) 6.25 mg DAILY PO Last administered on 11/19/16 08:17; Admin Dose 6.25 MG; Start 11/14/16 at 09:00 Clonidine (Catapres) 0.2 mg TID PRN PO SBP>170; Start 11/13/16 at 21:30 Clopidogrel Bisulfate (plaVIX) 75 mg DAILY PO Last administered on 11/19/16 08 :15; Admin Dose 75 MG; Start 11/14/16 at 09:00 Docusate Sodium (Colace) 100 mg BID PO Last administered on 11/19/16 08:15; Admin Dose 100 MG; Start 11/14/16 at 09:00 Folic Acid (Folic Acid) 1 mg DAILY PO Last administered on 11/19/16 08:15; Admin Dose 1 MG; Start 11/14/16 at 09:00 Gabapentin (Neurontin) 300 mg BID PO Last administered on 11/19/16 08:15; Admin Dose 300 MG; Start 11/14/16 at 09:00 Losartan Potassium (Cozaar) 50 mg DAILY PO Last administered on 11/19/16 08:17 ; Admin Dose 50 MG; Start 11/14/16 at 09:00 Multivit/Ca Carb/ B Cmplx/FA/Prenat (Addie-Mikayla) 1 tab DAILY PO Last administered on 11/19/16 08:15; Admin Dose 1 TAB; Start 11/14/16 at 09:00 Morphine Sulfate (morphine) 2 mg Q6H PRN IV PAIN LEVEL 7-10 Last administered on 11/19/16 10:29; Admin Dose 2 MG; Start 11/13/16 at 21:30 Acetaminophen (Tylenol Tab) 650 mg Q6H PRN PO ELEVATED TEMPERATURE Last administered on 11/18/16 12:59; Admin Dose 650 MG; Start 11/13/16 at 21:30 Miscellaneous Information 1 ea NOTE XX ; Start 11/13/16 at 22:00 Glucose (Glutose) 15 gm Q15M PRN PO DECREASED GLUCOSE; Start 11/13/16 at 22:00 Glucose (Glutose) 22.5 gm Q15M PRN PO DECREASED GLUCOSE; Start 11/13/16 at 22: 00 Dextrose (D50w Syringe) 25 ml Q15M PRN IV DECREASED GLUCOSE; Start 11/13/16 at 22:00 Dextrose (D50w Syringe) 50 ml Q15M PRN IV DECREASED GLUCOSE; Start 11/13/16 at 22:00 Glucagon (Glucagen) 1 mg Q15M PRN IM DECREASED GLUCOSE; Start 11/13/16 at 22:00 Glucose 15 gm 15 gm Q15M PRN BUCCAL DECREASED GLUCOSE; Start 11/13/16 at 22:00 Sodium Chloride (NS) 1,000 ml @ 0 mls/hr Q0M PRN IV TO KEEP SBP ABOVE 90; Start 11/13/16 at 22:30 Diagnostic Test (Pha) (Accu-Chek) 1 ea 02 XX ; Start 11/14/16 at 02:00 Acetaminophen/ Hydrocodone Bitart ([place] (5/325)) 1 tab Q4H PRN PO PAIN LEVEL 4 -6 Last administered on 11/19/16 05:47; Admin Dose 1 TAB; Start 11/14/16 at 13: 00 Linagliptin (Tradjenta) 5 mg DAILY PO Last administered on 11/19/16 08:15; Admin Dose 5 MG; Start 11/14/16 at 12:30 Acetaminophen 325 mg 325 mg TuThSa PO ; Start 11/15/16 at 15:30 Sodium Chloride (NS) 1,000 ml @ 0 mls/hr Q0M PRN IV TO KEEP SBP ABOVE 90; Start 11/14/16 at 16:54 Diphenhydramine HCl (Benadryl) 50 mg Q8 PO Last administered on 11/19/16 13:37 ; Admin Dose 50 MG; Start 11/15/16 at 14:00 Bacitracin (Bacitracin 0.5%/ Zinc Oint) 1 applic BID TOP Last administered on 08:16; Admin Dose 1 APPLIC; Start 11/15/16 at 21:00 Insulin Glargine (Lantus) 30 unit HS SC Last administered on 11/18/16 21:05; Admin Dose 30 UNIT; Start 11/16/16 at 21:00 Cyclobenzaprine HCl (Flexeril) 5 mg Q6 PO Last administered on 11/19/16 11:49 ; Admin Dose 5 MG; Start 11/16/16 at 18:00 Multi-Ingredient Ointment 1 applic 1 applic BID TOP Last administered on 08:16; Admin Dose 1 APPLIC; Start 11/17/16 at 08:49 Vancomycin HCl (Vancocin) 250 ml @ 125 mls/hr Q96H IVPB ; Start 11/19/16 at 22: 00 ANTHONY DUPREE Nov 19, 2016 14:16
[2016-11-19 20:17] VITALS: BP 136/67; RESP 20
[2016-11-19] MEDS: ATORVASTATIN 40 MG TAB PO SCH (20:24)
[2016-11-19] MEDS ORDERED: INSULIN GLARGINE [LANtus] 3 ML PEN SC ONE (21:00)
--- NOTE | 2016-11-19 21:04 | CONS ---
Date/Time of Note Date/Time of Note DATE: 11/19/16 TIME: 21:03 Assessment/Plan Assessment/Plan Chief Complaint/Hosp Course A/P LEG CELLULITES ESRD DM HTN s/p permacath removal ur retention folry prn PLAN CONTINUE hd per id Problems: Consultation Date/Type/Reason Admit Date/Time Nov 13, 2016 at 18:46 Initial Consult Date 11/14/16 Type of Consultation: renal Referring Provider: VIOLET RUDOLPH 24 HR Interval Summary Constitutional: no complaints Exam/Review of Systems Vital Signs Vitals Vital Signs Date Time Temp Pulse Resp B/P Pulse Ox O2 Delivery O2 Flow Rate FiO2 11/19/16 20:17 98.5 71 20 136/67 92 11/18/16 20:00 Room Air Intake and Output 11/18/16 11/18/16 11/19/16 15:00 23:00 07:00 Intake Total 500 ml 600 ml 550 ml Output Total 2500 ml 0 ml Balance -2000 ml 600 ml 550 ml Exam Neck: supple Respiratory: clear to auscultation Cardiovascular: regular rate and rhythm Gastrointestinal: soft Extremities: normal pulses Results Result Diagram: 11/19/16 0537 11/19/16 0537 Results 24 hrs Laboratory Tests Test 11/19/16 05:37 11/19/16 08:18 11/19/16 11:49 11/19/16 12:14 White Blood Count 3.7 L Red Blood Count 2.49 L Hemoglobin 8.1 L Hematocrit 26.4 L Mean Corpuscular Volume 106.0 H Mean Corpuscular Hemoglobin 32.5 Mean Corpuscular Hemoglobin Concent 30.7 L Red Cell Distribution Width 13.9 Platelet Count 210 Mean Platelet Volume 11.0 H Neutrophils % 48.0 Lymphocytes % 33.6 Monocytes % 13.0 H Eosinophils % 4.9 Basophils % 0.5 Nucleated Red Blood Cells % 0.0 Neutrophils # (Manual) 1.8 Lymphocytes # 1.2 Monocytes # 0.5 Eosinophils # 0.2 Basophils # 0.0 Nucleated Red Blood Cells # 0.0 Sodium Level 140 Potassium Level 4.6 Chloride Level 97 Carbon Dioxide Level 27 Anion Gap 21 H Blood Urea Nitrogen 55 H Creatinine 4.97 #H Glucose Level 116 Calcium Level 8.3 L Random Vancomycin Level 15.9 Bedside Glucose 145 69 L 78 Test 11/19/16 17:02 11/19/16 20:22 Bedside Glucose 204 71 Medications Medications Current Medications Alprazolam (Xanax) 0.25 mg TID PRN PO ANXIETY; Start 11/13/16 at 21:30 Amlodipine Besylate (Norvasc) 10 mg DAILY PO Last administered on 11/19/16 08: 16; Admin Dose 10 MG; Start 11/14/16 at 09:00 Aspirin (Halfprin) 81 mg DAILY PO Last administered on 11/19/16 08:15; Admin Dose 81 MG; Start 11/14/16 at 09:00 Atorvastatin Calcium (Lipitor) 40 mg QHS PO Last administered on 11/19/16 20: 24; Admin Dose 40 MG; Start 11/14/16 at 21:00 Carvedilol (Coreg) 6.25 mg DAILY PO Last administered on 11/19/16 08:17; Admin Dose 6.25 MG; Start 11/14/16 at 09:00 Clonidine (Catapres) 0.2 mg TID PRN PO SBP>170; Start 11/13/16 at 21:30 Clopidogrel Bisulfate (plaVIX) 75 mg DAILY PO Last administered on 11/19/16 08 :15; Admin Dose 75 MG; Start 11/14/16 at 09:00 Docusate Sodium (Colace) 100 mg BID PO Last administered on 11/19/16 20:24; Admin Dose 100 MG; Start 11/14/16 at 09:00 Folic Acid (Folic Acid) 1 mg DAILY PO Last administered on 11/19/16 08:15; Admin Dose 1 MG; Start 11/14/16 at 09:00 Gabapentin (Neurontin) 300 mg BID PO Last administered on 11/19/16 20:24; Admin Dose 300 MG; Start 11/14/16 at 09:00 Losartan Potassium (Cozaar) 50 mg DAILY PO Last administered on 11/19/16 08:17 ; Admin Dose 50 MG; Start 11/14/16 at 09:00 Multivit/Ca Carb/ B Cmplx/FA/Prenat (Addie-Mikayla) 1 tab DAILY PO Last administered on 11/19/16 08:15; Admin Dose 1 TAB; Start 11/14/16 at 09:00 Morphine Sulfate (morphine) 2 mg Q6H PRN IV PAIN LEVEL 7-10 Last administered on 11/19/16 16:24; Admin Dose 2 MG; Start 11/13/16 at 21:30 Acetaminophen (Tylenol Tab) 650 mg Q6H PRN PO ELEVATED TEMPERATURE Last administered on 11/18/16 12:59; Admin Dose 650 MG; Start 11/13/16 at 21:30 Miscellaneous Information 1 ea NOTE XX ; Start 11/13/16 at 22:00 Glucose (Glutose) 15 gm Q15M PRN PO DECREASED GLUCOSE; Start 11/13/16 at 22:00 Glucose (Glutose) 22.5 gm Q15M PRN PO DECREASED GLUCOSE; Start 11/13/16 at 22: 00 Dextrose (D50w Syringe) 25 ml Q15M PRN IV DECREASED GLUCOSE; Start 11/13/16 at 22:00 Dextrose (D50w Syringe) 50 ml Q15M PRN IV DECREASED GLUCOSE; Start 11/13/16 at 22:00 Glucagon (Glucagen) 1 mg Q15M PRN IM DECREASED GLUCOSE; Start 11/13/16 at 22:00 Glucose 15 gm 15 gm Q15M PRN BUCCAL DECREASED GLUCOSE; Start 11/13/16 at 22:00 Sodium Chloride (NS) 1,000 ml @ 0 mls/hr Q0M PRN IV TO KEEP SBP ABOVE 90; Start 11/13/16 at 22:30 Diagnostic Test (Pha) (Accu-Chek) 1 ea 02 XX ; Start 11/14/16 at 02:00 Acetaminophen/ Hydrocodone Bitart ([place] (5/325)) 1 tab Q4H PRN PO PAIN LEVEL 4 -6 Last administered on 11/19/16 20:58; Admin Dose 1 TAB; Start 11/14/16 at 13: 00 Linagliptin (Tradjenta) 5 mg DAILY PO Last administered on 11/19/16 08:15; Admin Dose 5 MG; Start 11/14/16 at 12:30 Acetaminophen 325 mg 325 mg TuThSa PO ; Start 11/15/16 at 15:30 Sodium Chloride (NS) 1,000 ml @ 0 mls/hr Q0M PRN IV TO KEEP SBP ABOVE 90; Start 11/14/16 at 16:54 Diphenhydramine HCl (Benadryl) 50 mg Q8 PO Last administered on 11/19/16 13:37 ; Admin Dose 50 MG; Start 11/15/16 at 14:00 Bacitracin (Bacitracin 0.5%/ Zinc Oint) 1 applic BID TOP Last administered on 20:23; Admin Dose 1 APPLIC; Start 11/15/16 at 21:00 Insulin Glargine (Lantus) 30 unit HS SC Last administered on 11/18/16 21:05; Admin Dose 30 UNIT; Start 11/16/16 at 21:00 Cyclobenzaprine HCl (Flexeril) 5 mg Q6 PO Last administered on 11/19/16 17:04 ; Admin Dose 5 MG; Start 11/16/16 at 18:00 Multi-Ingredient Ointment 1 applic 1 applic BID TOP Last administered on 08:16; Admin Dose 1 APPLIC; Start 11/17/16 at 08:49 Vancomycin HCl (Vancocin) 250 ml @ 125 mls/hr Q96H IVPB ; Start 11/19/16 at 22: 00 ZOFIA REAL MD Nov 19, 2016 21:04
[2016-11-19] MEDS: VANCOMYCIN 1 GM in NS 250 ML IVPB SCH (22:25)
[2016-11-20] VITALS (13 sets, daily range): BP systolic 123–175; BP diastolic 59–79; PULSE 60–73; RESP 20
[2016-11-20] MEDS: ALPRAZOLAM 0.25 MG TAB PO PRN ×2 (00:47→12:21)
[2016-11-20] MEDS: ACCU-CHEK XX SCH (02:00)
[2016-11-20 06:26] LABS: BASOPHILS % 0.2 % (0.0-2.0); EOSINOPHILS # 0.2 10^3/ul (0.0-0.5); EOSINOPHILS % 3.5 % (0.0-7.0); HEMATOCRIT 23.8 % (37.0-47.0); HEMOGLOBIN 7.3 g/dl (12.0-16.0); LYMPHOCYTES # 1.6 10^3/ul (0.8-2.9); LYMPHOCYTES % 36.7 % (15.0-51.0); MEAN CORPUSCULAR HEMOGLOBIN 32.7 pg (29.0-33.0); MEAN CORPUSCULAR HGB CONC 30.7 g/dl (32.0-37.0); MEAN CORPUSCULAR VOLUME 106.7 fl (82.0-101.0); MEAN PLATELET VOLUME 11.2 fl (7.4-10.4); MONOCYTE # 0.7 10^3/ul (0.3-0.9); MONOCYTES % 15.7 % (0.0-11.0); NEUTROPHILS % 43.7 % (39.0-77.0); PLATELET COUNT 186 10^3/UL (140-415); RED BLOOD COUNT 2.23 10^6/ul (4.20-5.40); RED CELL DISTRIBUTION WIDTH 14.1 % (11.5-14.5); WHITE BLOOD COUNT 4.3 10^3/ul (4.8-10.8)
[2016-11-20] MEDS: DIPHENHYDRAMINE 50 MG CAP PO SCH ×3 (06:50→21:17)
[2016-11-20] MEDS: CYCLOBENZAPRINE 10 MG TAB PO SCH ×3 (06:50→17:31)
[2016-11-20] MEDS: FUROSEMIDE 40 MG TAB PO SCH ×2 (06:51→17:31)
[2016-11-20 06:52] LABS: CALCIUM 7.6 mg/dl (8.4-10.2); CREATININE 5.59 mg/dl (0.44-1.00); POTASSIUM 5.3 mmol/L (3.5-5.1)
[2016-11-20] MEDS: morphine 2 MG INJ IV PRN ×2 (06:56→17:47)
[2016-11-20] MEDS: AMLODIPINE 10 MG TAB PO SCH (08:19)
[2016-11-20] MEDS: LOSARTAN 50 MG TAB PO SCH (08:19)
[2016-11-20] MEDS: INSULIN ASPART [NOVOLOG] 3 ML PEN SC SCH ×7 (08:22→21:29)
[2016-11-20] MEDS: GABAPENTIN 300 MG CAP PO SCH ×2 (08:23→21:09)
[2016-11-20] MEDS: LINAGLIPTIN 5 MG TABLET PO SCH (08:23)
[2016-11-20] MEDS: SEVELAMER CARBONATE 0.8 GM PKT PO SCH ×3 (08:23→17:30)
[2016-11-20] MEDS: FOLIC ACID 1 MG TAB PO SCH (08:23)
[2016-11-20] MEDS: PANTOPRAZOLE (EC) 40 MG TAB PO SCH (08:24)
[2016-11-20] MEDS: MULTIVIT/CA CARB/B CMPLX/FA TAB PO SCH (08:24)
[2016-11-20] MEDS: DOCUSATE SODIUM 100 MG CAP PO SCH ×2 (08:24→21:09)
[2016-11-20] MEDS: BACITRACIN 0.5%/ZINC 28.35 GM OINT TOP SCH ×2 (08:24→21:10)
[2016-11-20] MEDS: ASPIRIN (EC) 81 MG TAB PO SCH ×2 (08:24→08:37)
[2016-11-20] MEDS: EUCERIN 113 GM CR TOP SCH ×2 (08:25→21:11)
[2016-11-20] MEDS: CLOPIDOGREL 75 MG TAB PO SCH (08:30)
[2016-11-20] MEDS: HYDROCODONE/APAP (5/325) TAB PO PRN ×2 (11:05→14:52)
[2016-11-20] MEDS: ACETAMINOPHEN 325 MG TAB PO SCH (11:57)
--- NOTE | 2016-11-20 14:48 | PN ---
Date/Time of Note Date/Time of Note DATE: 11/20/16 TIME: 14:42 Assessment/Plan Lines/Catheters IV [facility]from [facility] Saline Lock Assessment/Plan Chief Complaint/Hosp Course -Bilateral lower extremity atherosclerosis of left lower extremity ulcer/ gangrene: Seems the patient has developed a diabetic foot infection with an eschar over the area of the mid rosales. Her erythema has been gradually improving via her intravenous (IV) antibiotics. Patient has adequate perfusion to the lower leg from our previous vascular surveillance studies. Would recommend continue with current antibiotics and will continue our evaluation. -Will schedule the patient as an outpatient for an ultrasound of the lower extremities for surveillance follow-up visit. -End-stage renal disease: It seems the patient has been tolerating her dialysis sessions via her left upper extremity fistula appropriately. S/P right chest wall catheter removal -Optimize vascular status : (nutrition, exercise, sugar control, and antiplatelets). -Discussed findings, plan and management with the patient. She understands. -cameron you for allowing us to partake in the care of your patient. Please call with any questions. Problems: Subjective 24 Hr Interval Summary no new vascular events overnight Exam/Review of Systems Vital Signs Vitals Vital Signs Date Time Temp Pulse Resp B/P Pulse Ox O2 Delivery O2 Flow Rate FiO2 11/20/16 13:35 98.8 74 20 138/65 90 11/18/16 20:00 Room Air Intake and Output 11/19/16 11/19/16 11/20/16 15:00 23:00 07:00 Intake Total 980 ml 970 ml Balance 980 ml 970 ml Exam Free Text/Dictation Alert and oriented times 3. LUNGS: Clear to auscultation bilaterally CARDIOVASCULAR: S1, S2 present ABDOMEN: Soft, nontender, nondistended. Truncal obesity. EXTREMITIES: Right lower extremity, palpable femoral pulse. Nonpalpable pedal pulse. Motor and sensory intact. Capillary refill 3 seconds. Surgical scar is well healed. Left lower extremity, palpable femoral pulse. Nonpalpable pedal pulse. Motor and sensory intact. Capillary refill 3-4 seconds. Edema1 to 2 +, erythema ankle to calf gradually improving. Discoloration in the mid rosales with eschar Results Result Diagram: 11/20/16 0531 11/20/16 0531 SHELBY MACDONALD MD Nov 20, 2016 14:48
--- NOTE | 2016-11-20 19:19 | CONS ---
Date/Time of Note Date/Time of Note DATE: 11/20/16 TIME: 19:18 Assessment/Plan Assessment/Plan Chief Complaint/Hosp Course A/P LEG CELLULITES ESRD DM HTN hyperkalemia s/p permacath removal ur retention folry prn PLAN CONTINUE hd per id ck labs Problems: Consultation Date/Type/Reason Admit Date/Time Nov 13, 2016 at 18:46 Initial Consult Date 11/14/16 Type of Consultation: renal Referring Provider: VIOLET RUDOLPH 24 HR Interval Summary Constitutional: no complaints Exam/Review of Systems Vital Signs Vitals Vital Signs Date Time Temp Pulse Resp B/P Pulse Ox O2 Delivery O2 Flow Rate FiO2 11/20/16 17:15 62 18 11/20/16 13:35 98.8 138/65 90 11/18/16 20:00 Room Air Intake and Output 11/19/16 11/19/16 11/20/16 15:00 23:00 07:00 Intake Total 980 ml 970 ml Balance 980 ml 970 ml Exam Respiratory: clear to auscultation Cardiovascular: regular rate and rhythm Gastrointestinal: soft Musculoskeletal: nl extremities to inspection Extremities: normal pulses Results Result Diagram: 11/20/16 0531 11/20/16 0531 Results 24 hrs Laboratory Tests Test 11/19/16 20:22 11/19/16 22:23 11/20/16 05:31 11/20/16 08:15 Bedside Glucose 71 113 198 White Blood Count 4.3 L Red Blood Count 2.23 L Hemoglobin 7.3 L Hematocrit 23.8 L Mean Corpuscular Volume 106.7 H Mean Corpuscular Hemoglobin 32.7 Mean Corpuscular Hemoglobin Concent 30.7 L Red Cell Distribution Width 14.1 Platelet Count 186 Mean Platelet Volume 11.2 H Neutrophils % 43.7 Lymphocytes % 36.7 Monocytes % 15.7 H Eosinophils % 3.5 Basophils % 0.2 Nucleated Red Blood Cells % 0.0 Neutrophils # (Manual) 1.9 Lymphocytes # 1.6 Monocytes # 0.7 Eosinophils # 0.2 Basophils # 0.0 Nucleated Red Blood Cells # 0.0 Sodium Level 133 L Potassium Level 5.3 H Chloride Level 93 L Carbon Dioxide Level 25 Anion Gap 20 H Blood Urea Nitrogen 69 H Creatinine 5.59 H Glucose Level 164 Calcium Level 7.6 L Test 11/20/16 08:17 11/20/16 12:14 11/20/16 17:15 Bedside Glucose 201 103 190 Medications Medications Current Medications Alprazolam (Xanax) 0.25 mg TID PRN PO ANXIETY Last administered on 11/20/16 12 :21; Admin Dose 0.25 MG; Start 11/13/16 at 21:30 Amlodipine Besylate (Norvasc) 10 mg DAILY PO Last administered on 11/19/16 08: 16; Admin Dose 10 MG; Start 11/14/16 at 09:00 Aspirin (Halfprin) 81 mg DAILY PO Last administered on 11/19/16 08:15; Admin Dose 81 MG; Start 11/14/16 at 09:00 Atorvastatin Calcium (Lipitor) 40 mg QHS PO Last administered on 11/19/16 20: 24; Admin Dose 40 MG; Start 11/14/16 at 21:00 Carvedilol (Coreg) 6.25 mg DAILY PO Last administered on 11/19/16 08:17; Admin Dose 6.25 MG; Start 11/14/16 at 09:00 Clonidine (Catapres) 0.2 mg TID PRN PO SBP>170; Start 11/13/16 at 21:30 Clopidogrel Bisulfate (plaVIX) 75 mg DAILY PO Last administered on 11/19/16 08 :15; Admin Dose 75 MG; Start 11/14/16 at 09:00 Docusate Sodium (Colace) 100 mg BID PO Last administered on 11/20/16 08:24; Admin Dose 100 MG; Start 11/14/16 at 09:00 Folic Acid (Folic Acid) 1 mg DAILY PO Last administered on 11/20/16 08:23; Admin Dose 1 MG; Start 11/14/16 at 09:00 Gabapentin (Neurontin) 300 mg BID PO Last administered on 11/20/16 08:23; Admin Dose 300 MG; Start 11/14/16 at 09:00 Losartan Potassium (Cozaar) 50 mg DAILY PO Last administered on 11/19/16 08:17 ; Admin Dose 50 MG; Start 11/14/16 at 09:00 Multivit/Ca Carb/ B Cmplx/FA/Prenat (Addie-Mikayla) 1 tab DAILY PO Last administered on 11/20/16 08:24; Admin Dose 1 TAB; Start 11/14/16 at 09:00 Morphine Sulfate (morphine) 2 mg Q6H PRN IV PAIN LEVEL 7-10 Last administered on 11/20/16 17:47; Admin Dose 2 MG; Start 11/13/16 at 21:30 Acetaminophen (Tylenol Tab) 650 mg Q6H PRN PO ELEVATED TEMPERATURE Last administered on 11/18/16 12:59; Admin Dose 650 MG; Start 11/13/16 at 21:30 Miscellaneous Information 1 ea NOTE XX ; Start 11/13/16 at 22:00 Glucose (Glutose) 15 gm Q15M PRN PO DECREASED GLUCOSE; Start 11/13/16 at 22:00 Glucose (Glutose) 22.5 gm Q15M PRN PO DECREASED GLUCOSE; Start 11/13/16 at 22: 00 Dextrose (D50w Syringe) 25 ml Q15M PRN IV DECREASED GLUCOSE; Start 11/13/16 at 22:00 Dextrose (D50w Syringe) 50 ml Q15M PRN IV DECREASED GLUCOSE; Start 11/13/16 at 22:00 Glucagon (Glucagen) 1 mg Q15M PRN IM DECREASED GLUCOSE; Start 11/13/16 at 22:00 Glucose (Glutose) 15 gm Q15M PRN BUCCAL DECREASED GLUCOSE; Start 11/13/16 at 22 :00 Diagnostic Test (Pha) (Accu-Chek) 1 ea 02 XX ; Start 11/14/16 at 02:00 Acetaminophen/ Hydrocodone Bitart ([place] (5/325)) 1 tab Q4H PRN PO PAIN LEVEL 4 -6 Last administered on 11/20/16 14:52; Admin Dose 1 TAB; Start 11/14/16 at 13: 00 Linagliptin (Tradjenta) 5 mg DAILY PO Last administered on 11/20/16 08:23; Admin Dose 5 MG; Start 11/14/16 at 12:30 Acetaminophen 325 mg 325 mg TuThSa PO ; Start 11/15/16 at 15:30 Sodium Chloride (NS) 1,000 ml @ 0 mls/hr Q0M PRN IV TO KEEP SBP ABOVE 90; Start 11/14/16 at 16:54 Diphenhydramine HCl (Benadryl) 50 mg Q8 PO Last administered on 11/20/16 14:52 ; Admin Dose 50 MG; Start 11/15/16 at 14:00 Bacitracin (Bacitracin 0.5%/ Zinc Oint) 1 applic BID TOP Last administered on 08:24; Admin Dose 1 APPLIC; Start 11/15/16 at 21:00 Cyclobenzaprine HCl (Flexeril) 5 mg Q6 PO Last administered on 11/20/16 17:31 ; Admin Dose 5 MG; Start 11/16/16 at 18:00 Multi-Ingredient Ointment 1 applic 1 applic BID TOP Last administered on 08:25; Admin Dose 1 APPLIC; Start 11/17/16 at 08:49 Vancomycin HCl (Vancocin) 250 ml @ 125 mls/hr Q96H IVPB Last administered on 22:25; Admin Dose 125 MLS/HR; Start 11/19/16 at 22:00 Insulin Glargine (Lantus) 20 unit DAILY@20 SC ; Start 11/20/16 at 20:00 ZOFIA REAL MD Nov 20, 2016 19:18
--- NOTE | 2016-11-20 20:33 | PN ---
Date/Time of Note Date/Time of Note DATE: 11/20/16 TIME: 20:28 Assessment/Plan VTE Prophylaxis VTE Prophylaxis Intervention: SCD's Lines/Catheters IV Catheter Type (from Nrsg): Saline Lock Assessment/Plan Assessment/Plan -Neck pain, cervical x-rays negative, pending MRI of the cervical spine without contrast. -Left lower extremity cellulitis, Dr. Rice is following infection disease consultation, continue antibiotics per ID. -Severe PVD, with multiple vascular intervention including a left lower extremity bypass. Dr. Ruano is following an vascular surgery. -Hemodialysis dependent end-stage renal disease, Dr. Garcia is following in nephrology consultation, continue hemodialysis. -Diabetes mellitus type 2, continue Tradjenta Lantus and NovoLog -S/p orthopedic procedures to RUE with metal prosthetic after bone Fx Further recommendations based on clinical course. Plan of care discussed with Dr. Cordero. Subjective 24 Hr Interval Summary Respiratory: no complaints Cardiovascular: no complaints Gastrointestinal: no complaints Musculoskeletal: swelling (Left leg swelling) Skin: erythema, other (left lowe leg pain, redness, dry scab) Exam/Review of Systems Vital Signs Vitals Vital Signs Date Time Temp Pulse Resp B/P Pulse Ox O2 Delivery O2 Flow Rate FiO2 11/20/16 17:15 62 18 11/20/16 13:35 98.8 138/65 90 11/18/16 20:00 Room Air Intake and Output 11/19/16 11/19/16 11/20/16 15:00 23:00 07:00 Intake Total 980 ml 970 ml Balance 980 ml 970 ml Exam Constitutional: alert, oriented, well developed Respiratory: clear to auscultation, normal air movement Cardiovascular: nl pulses, regular rate and rhythm Gastrointestinal: non-tender, soft Musculoskeletal: other Extremities: other Results Result Diagram: 11/20/16 0531 11/20/16 0531 Results 24 hrs Laboratory Tests Test 11/19/16 22:23 11/20/16 05:31 11/20/16 08:15 11/20/16 08:17 Bedside Glucose 113 198 201 White Blood Count 4.3 L Red Blood Count 2.23 L Hemoglobin 7.3 L Hematocrit 23.8 L Mean Corpuscular Volume 106.7 H Mean Corpuscular Hemoglobin 32.7 Mean Corpuscular Hemoglobin Concent 30.7 L Red Cell Distribution Width 14.1 Platelet Count 186 Mean Platelet Volume 11.2 H Neutrophils % 43.7 Lymphocytes % 36.7 Monocytes % 15.7 H Eosinophils % 3.5 Basophils % 0.2 Nucleated Red Blood Cells % 0.0 Neutrophils # (Manual) 1.9 Lymphocytes # 1.6 Monocytes # 0.7 Eosinophils # 0.2 Basophils # 0.0 Nucleated Red Blood Cells # 0.0 Sodium Level 133 L Potassium Level 5.3 H Chloride Level 93 L Carbon Dioxide Level 25 Anion Gap 20 H Blood Urea Nitrogen 69 H Creatinine 5.59 H Glucose Level 164 Calcium Level 7.6 L Test 11/20/16 12:14 11/20/16 17:15 Bedside Glucose 103 190 Medications Medications Current Medications Alprazolam (Xanax) 0.25 mg TID PRN PO ANXIETY Last administered on 11/20/16 12 :21; Admin Dose 0.25 MG; Start 11/13/16 at 21:30 Amlodipine Besylate (Norvasc) 10 mg DAILY PO Last administered on 11/19/16 08: 16; Admin Dose 10 MG; Start 11/14/16 at 09:00 Aspirin (Halfprin) 81 mg DAILY PO Last administered on 11/19/16 08:15; Admin Dose 81 MG; Start 11/14/16 at 09:00 Atorvastatin Calcium (Lipitor) 40 mg QHS PO Last administered on 11/19/16 20: 24; Admin Dose 40 MG; Start 11/14/16 at 21:00 Carvedilol (Coreg) 6.25 mg DAILY PO Last administered on 11/19/16 08:17; Admin Dose 6.25 MG; Start 11/14/16 at 09:00 Clonidine (Catapres) 0.2 mg TID PRN PO SBP>170; Start 11/13/16 at 21:30 Clopidogrel Bisulfate (plaVIX) 75 mg DAILY PO Last administered on 11/19/16 08 :15; Admin Dose 75 MG; Start 11/14/16 at 09:00 Docusate Sodium (Colace) 100 mg BID PO Last administered on 11/20/16 08:24; Admin Dose 100 MG; Start 11/14/16 at 09:00 Folic Acid (Folic Acid) 1 mg DAILY PO Last administered on 11/20/16 08:23; Admin Dose 1 MG; Start 11/14/16 at 09:00 Gabapentin (Neurontin) 300 mg BID PO Last administered on 11/20/16 08:23; Admin Dose 300 MG; Start 11/14/16 at 09:00 Losartan Potassium (Cozaar) 50 mg DAILY PO Last administered on 11/19/16 08:17 ; Admin Dose 50 MG; Start 11/14/16 at 09:00 Multivit/Ca Carb/ B Cmplx/FA/Prenat (Addie-Mikayla) 1 tab DAILY PO Last administered on 11/20/16 08:24; Admin Dose 1 TAB; Start 11/14/16 at 09:00 Morphine Sulfate (morphine) 2 mg Q6H PRN IV PAIN LEVEL 7-10 Last administered on 11/20/16 17:47; Admin Dose 2 MG; Start 11/13/16 at 21:30 Acetaminophen (Tylenol Tab) 650 mg Q6H PRN PO ELEVATED TEMPERATURE Last administered on 11/18/16 12:59; Admin Dose 650 MG; Start 11/13/16 at 21:30 Miscellaneous Information 1 ea NOTE XX ; Start 11/13/16 at 22:00 Glucose (Glutose) 15 gm Q15M PRN PO DECREASED GLUCOSE; Start 11/13/16 at 22:00 Glucose (Glutose) 22.5 gm Q15M PRN PO DECREASED GLUCOSE; Start 11/13/16 at 22: 00 Dextrose (D50w Syringe) 25 ml Q15M PRN IV DECREASED GLUCOSE; Start 11/13/16 at 22:00 Dextrose (D50w Syringe) 50 ml Q15M PRN IV DECREASED GLUCOSE; Start 11/13/16 at 22:00 Glucagon (Glucagen) 1 mg Q15M PRN IM DECREASED GLUCOSE; Start 11/13/16 at 22:00 Glucose (Glutose) 15 gm Q15M PRN BUCCAL DECREASED GLUCOSE; Start 11/13/16 at 22 :00 Diagnostic Test (Pha) (Accu-Chek) 1 ea 02 XX ; Start 11/14/16 at 02:00 Acetaminophen/ Hydrocodone Bitart ([place] (5/325)) 1 tab Q4H PRN PO PAIN LEVEL 4 -6 Last administered on 11/20/16 14:52; Admin Dose 1 TAB; Start 11/14/16 at 13: 00 Linagliptin (Tradjenta) 5 mg DAILY PO Last administered on 11/20/16 08:23; Admin Dose 5 MG; Start 11/14/16 at 12:30 Acetaminophen 325 mg 325 mg TuThSa PO ; Start 11/15/16 at 15:30 Sodium Chloride (NS) 1,000 ml @ 0 mls/hr Q0M PRN IV TO KEEP SBP ABOVE 90; Start 11/14/16 at 16:54 Diphenhydramine HCl (Benadryl) 50 mg Q8 PO Last administered on 11/20/16 14:52 ; Admin Dose 50 MG; Start 11/15/16 at 14:00 Bacitracin (Bacitracin 0.5%/ Zinc Oint) 1 applic BID TOP Last administered on 08:24; Admin Dose 1 APPLIC; Start 11/15/16 at 21:00 Cyclobenzaprine HCl (Flexeril) 5 mg Q6 PO Last administered on 11/20/16 17:31 ; Admin Dose 5 MG; Start 11/16/16 at 18:00 Multi-Ingredient Ointment 1 applic 1 applic BID TOP Last administered on 08:25; Admin Dose 1 APPLIC; Start 11/17/16 at 08:49 Vancomycin HCl (Vancocin) 250 ml @ 125 mls/hr Q96H IVPB Last administered on 22:25; Admin Dose 125 MLS/HR; Start 11/19/16 at 22:00 Insulin Glargine (Lantus) 20 unit DAILY@20 SC ; Start 11/20/16 at 20:00 VIOLET RUDOLPH Nov 20, 2016 20:33
--- NOTE | 2016-11-20 20:54 | CONS ---
Date/Time of Note Date/Time of Note DATE: 11/20/16 TIME: 20:50 Assessment/Plan Assessment/Plan Chief Complaint/Hosp Course assessment/impression - skin and soft tissue infection of LLE with eschar. 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 Pt requests extending IV vancomycin beyond the original end date of 2016. I recommend extending it through 11/23/2016 and then reassess. I explained that pain is likely due to her vascular insufficiency and may not readily resolve - keep LEs elevated to decrease lymphadema - management d/w Pt, [employer] Anita Problems: Consultation Date/Type/Reason Admit Date/Time Nov 13, 2016 at 18:46 Initial Consult Date 11/14/16 Type of Consultation: ID Referring Provider: VIOLET RUDOLPH 24 HR Interval Summary Constitutional: other (pain from the back and all extremities) Detailed Summary Eyes: no complaints ENT: no complaints Respiratory: no complaints Cardiovascular: no complaints Gastrointestinal: no complaints Genitourinary: other (anuric) Musculoskeletal: back pain, swelling Skin: erythema, other (pain of LLE), skin lesions (eschar of LLE) Neurologic: no complaints Lymphatic: lymphadema Psychological: no complaints Exam/Review of Systems Vital Signs Vitals Vital Signs Date Time Temp Pulse Resp B/P Pulse Ox O2 Delivery O2 Flow Rate FiO2 11/20/16 17:15 62 18 11/20/16 13:35 98.8 138/65 90 11/18/16 20:00 Room Air Intake and Output 11/19/16 11/19/16 11/20/16 15:00 23:00 07:00 Intake Total 980 ml 970 ml Balance 980 ml 970 ml Exam Constitutional: alert, oriented, well developed Psych: nl mood/affect, no complaints Head: atraumatic, normocephalic Eyes: nl conjunctiva, nl lids ENMT: nl external ears & nose, nl nasal mucosa & septum Neck: supple Extremities: edema, pitting pedal edema, tenderness (LLE and L ankle) 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, nl mental status, nl strength Skin: rash or lesions (eschar of LLE, the bulla has become smaller) Lymph: other (lymphadenitis of LLE and L ankle) Results Result Diagram: 11/20/16 0531 11/20/16 0531 Results 24 hrs Laboratory Tests Test 11/19/16 22:23 11/20/16 05:31 11/20/16 08:15 11/20/16 08:17 Bedside Glucose 113 198 201 White Blood Count 4.3 L Red Blood Count 2.23 L Hemoglobin 7.3 L Hematocrit 23.8 L Mean Corpuscular Volume 106.7 H Mean Corpuscular Hemoglobin 32.7 Mean Corpuscular Hemoglobin Concent 30.7 L Red Cell Distribution Width 14.1 Platelet Count 186 Mean Platelet Volume 11.2 H Neutrophils % 43.7 Lymphocytes % 36.7 Monocytes % 15.7 H Eosinophils % 3.5 Basophils % 0.2 Nucleated Red Blood Cells % 0.0 Neutrophils # (Manual) 1.9 Lymphocytes # 1.6 Monocytes # 0.7 Eosinophils # 0.2 Basophils # 0.0 Nucleated Red Blood Cells # 0.0 Sodium Level 133 L Potassium Level 5.3 H Chloride Level 93 L Carbon Dioxide Level 25 Anion Gap 20 H Blood Urea Nitrogen 69 H Creatinine 5.59 H Glucose Level 164 Calcium Level 7.6 L Test 11/20/16 12:14 11/20/16 17:15 Bedside Glucose 103 190 Medications Medications Current Medications Alprazolam (Xanax) 0.25 mg TID PRN PO ANXIETY Last administered on 11/20/16 12 :21; Admin Dose 0.25 MG; Start 11/13/16 at 21:30 Amlodipine Besylate (Norvasc) 10 mg DAILY PO Last administered on 11/19/16 08: 16; Admin Dose 10 MG; Start 11/14/16 at 09:00 Aspirin (Halfprin) 81 mg DAILY PO Last administered on 11/19/16 08:15; Admin Dose 81 MG; Start 11/14/16 at 09:00 Atorvastatin Calcium (Lipitor) 40 mg QHS PO Last administered on 11/19/16 20: 24; Admin Dose 40 MG; Start 11/14/16 at 21:00 Carvedilol (Coreg) 6.25 mg DAILY PO Last administered on 11/19/16 08:17; Admin Dose 6.25 MG; Start 11/14/16 at 09:00 Clonidine (Catapres) 0.2 mg TID PRN PO SBP>170; Start 11/13/16 at 21:30 Clopidogrel Bisulfate (plaVIX) 75 mg DAILY PO Last administered on 11/19/16 08 :15; Admin Dose 75 MG; Start 11/14/16 at 09:00 Docusate Sodium (Colace) 100 mg BID PO Last administered on 11/20/16 08:24; Admin Dose 100 MG; Start 11/14/16 at 09:00 Folic Acid (Folic Acid) 1 mg DAILY PO Last administered on 11/20/16 08:23; Admin Dose 1 MG; Start 11/14/16 at 09:00 Gabapentin (Neurontin) 300 mg BID PO Last administered on 11/20/16 08:23; Admin Dose 300 MG; Start 11/14/16 at 09:00 Losartan Potassium (Cozaar) 50 mg DAILY PO Last administered on 11/19/16 08:17 ; Admin Dose 50 MG; Start 11/14/16 at 09:00 Multivit/Ca Carb/ B Cmplx/FA/Prenat (Addie-Mikayla) 1 tab DAILY PO Last administered on 11/20/16 08:24; Admin Dose 1 TAB; Start 11/14/16 at 09:00 Morphine Sulfate (morphine) 2 mg Q6H PRN IV PAIN LEVEL 7-10 Last administered on 11/20/16 17:47; Admin Dose 2 MG; Start 11/13/16 at 21:30 Acetaminophen (Tylenol Tab) 650 mg Q6H PRN PO ELEVATED TEMPERATURE Last administered on 11/18/16 12:59; Admin Dose 650 MG; Start 11/13/16 at 21:30 Miscellaneous Information 1 ea NOTE XX ; Start 11/13/16 at 22:00 Glucose (Glutose) 15 gm Q15M PRN PO DECREASED GLUCOSE; Start 11/13/16 at 22:00 Glucose (Glutose) 22.5 gm Q15M PRN PO DECREASED GLUCOSE; Start 11/13/16 at 22: 00 Dextrose (D50w Syringe) 25 ml Q15M PRN IV DECREASED GLUCOSE; Start 11/13/16 at 22:00 Dextrose (D50w Syringe) 50 ml Q15M PRN IV DECREASED GLUCOSE; Start 11/13/16 at 22:00 Glucagon (Glucagen) 1 mg Q15M PRN IM DECREASED GLUCOSE; Start 11/13/16 at 22:00 Glucose (Glutose) 15 gm Q15M PRN BUCCAL DECREASED GLUCOSE; Start 11/13/16 at 22 :00 Diagnostic Test (Pha) (Accu-Chek) 1 ea 02 XX ; Start 11/14/16 at 02:00 Acetaminophen/ Hydrocodone Bitart ([place] (5/325)) 1 tab Q4H PRN PO PAIN LEVEL 4 -6 Last administered on 11/20/16 14:52; Admin Dose 1 TAB; Start 11/14/16 at 13: 00 Linagliptin (Tradjenta) 5 mg DAILY PO Last administered on 11/20/16 08:23; Admin Dose 5 MG; Start 11/14/16 at 12:30 Acetaminophen 325 mg 325 mg TuThSa PO ; Start 11/15/16 at 15:30 Sodium Chloride (NS) 1,000 ml @ 0 mls/hr Q0M PRN IV TO KEEP SBP ABOVE 90; Start 11/14/16 at 16:54 Diphenhydramine HCl (Benadryl) 50 mg Q8 PO Last administered on 11/20/16 14:52 ; Admin Dose 50 MG; Start 11/15/16 at 14:00 Bacitracin (Bacitracin 0.5%/ Zinc Oint) 1 applic BID TOP Last administered on 08:24; Admin Dose 1 APPLIC; Start 11/15/16 at 21:00 Cyclobenzaprine HCl (Flexeril) 5 mg Q6 PO Last administered on 11/20/16 17:31 ; Admin Dose 5 MG; Start 11/16/16 at 18:00 Multi-Ingredient Ointment 1 applic 1 applic BID TOP Last administered on 08:25; Admin Dose 1 APPLIC; Start 11/17/16 at 08:49 Vancomycin HCl (Vancocin) 250 ml @ 125 mls/hr Q96H IVPB Last administered on t 22:25; Admin Dose 125 MLS/HR; Start 11/19/16 at 22:00 Insulin Glargine (Lantus) 20 unit DAILY@20 SC ; Start 11/20/16 at 20:00 ALEXANDER MARTÍNEZ M.D. Nov 20, 2016 20:54
[2016-11-20] MEDS: ATORVASTATIN 40 MG TAB PO SCH (21:09)
[2016-11-20] MEDS: INSULIN GLARGINE [LANtus] 3 ML PEN SC SCH (21:14)
[2016-11-21 02:00] VITALS: BP 131/60; RESP 20
[2016-11-21] MEDS: ACCU-CHEK XX SCH (02:00)
[2016-11-21] MEDS: DIPHENHYDRAMINE 50 MG CAP PO SCH ×3 (05:11→22:37)
[2016-11-21] MEDS: CYCLOBENZAPRINE 10 MG TAB PO SCH ×4 (05:11→17:51)
[2016-11-21] MEDS: FUROSEMIDE 40 MG TAB PO SCH ×2 (05:11→17:54)
[2016-11-21 06:16] LABS: BASOPHILS % 0.5 % (0.0-2.0); EOSINOPHILS # 0.1 10^3/ul (0.0-0.5); EOSINOPHILS % 3.2 % (0.0-7.0); HEMATOCRIT 28.2 % (37.0-47.0); LYMPHOCYTES # 1.4 10^3/ul (0.8-2.9); LYMPHOCYTES % 36.2 % (15.0-51.0); MEAN CORPUSCULAR HEMOGLOBIN 32.6 pg (29.0-33.0); MEAN CORPUSCULAR HGB CONC 31.9 g/dl (32.0-37.0); MEAN CORPUSCULAR VOLUME 102.2 fl (82.0-101.0); MONOCYTE # 0.6 10^3/ul (0.3-0.9); MONOCYTES % 17.2 % (0.0-11.0); NEUTROPHILS % 42.6 % (39.0-77.0); PLATELET COUNT 195 10^3/UL (140-415); RED BLOOD COUNT 2.76 10^6/ul (4.20-5.40); WHITE BLOOD COUNT 3.7 10^3/ul (4.8-10.8)
[2016-11-21] MEDS: morphine 2 MG INJ IV PRN ×3 (06:17→19:49)
[2016-11-21 06:53] LABS: CALCIUM 8.1 mg/dl (8.4-10.2); CREATININE 4.59 mg/dl (0.44-1.00); POTASSIUM 4.5 mmol/L (3.5-5.1)
[2016-11-21 07:52] VITALS: BP 138/77; RESP 22
[2016-11-21] MEDS: INSULIN ASPART [NOVOLOG] 3 ML PEN SC SCH ×7 (08:02→20:02)
[2016-11-21] MEDS: FOLIC ACID 1 MG TAB PO SCH (08:23)
[2016-11-21] MEDS: LINAGLIPTIN 5 MG TABLET PO SCH (08:23)
[2016-11-21] MEDS: SEVELAMER CARBONATE 0.8 GM PKT PO SCH ×3 (08:23→17:51)
[2016-11-21] MEDS: MULTIVIT/CA CARB/B CMPLX/FA TAB PO SCH (08:23)
[2016-11-21] MEDS: GABAPENTIN 300 MG CAP PO SCH ×2 (08:23→19:51)
[2016-11-21] MEDS: DOCUSATE SODIUM 100 MG CAP PO SCH ×2 (08:23→19:51)
[2016-11-21] MEDS: PANTOPRAZOLE (EC) 40 MG TAB PO SCH (08:23)
[2016-11-21] MEDS: CLOPIDOGREL 75 MG TAB PO SCH (08:23)
[2016-11-21] MEDS: ASPIRIN (EC) 81 MG TAB PO SCH (08:23)
[2016-11-21] MEDS: LOSARTAN 50 MG TAB PO SCH (08:24)
[2016-11-21] MEDS: AMLODIPINE 10 MG TAB PO SCH (08:25)
[2016-11-21] MEDS: BACITRACIN 0.5%/ZINC 28.35 GM OINT TOP SCH ×2 (08:33→19:50)
[2016-11-21] MEDS: EUCERIN 113 GM CR TOP SCH ×2 (08:39→19:51)
[2016-11-21] MEDS: ACETAMINOPHEN 325 MG TAB PO PRN (12:09)
[2016-11-21 14:47] VITALS: BP 138/64; RESP 18
--- NOTE | 2016-11-21 14:57 | CONS ---
Date/Time of Note Date/Time of Note DATE: 11/21/16 TIME: 14:56 Assessment/Plan Assessment/Plan Chief Complaint/Hosp Course 1. Left lower extremity cellulitis 2. ESRD. 3. Severe peripheral vascular disease with left lower extremity ischemia, status post angiogram intervention. 4. Peripheral neuropathy. 5. Depression. 6. Anemia of chronic disease. 7. Hypertension, controlled. 8. DM type II uncontrolled Problems: Additional Assessment/Plan 1. continue current regime Consultation Date/Type/Reason Admit Date/Time Nov 13, 2016 at 18:46 Initial Consult Date 11/13/2016 Type of Consultation: nephrology Reason for Consultation Dr Garcia Referring Provider: VIOLET RUDOLPH 24 HR Interval Summary Free Text/Dictation tension in cervical area of the back Exam/Review of Systems Vital Signs Vitals Vital Signs Date Time Temp Pulse Resp B/P Pulse Ox O2 Delivery O2 Flow Rate FiO2 11/21/16 14:47 98.8 70 18 138/64 94 11/18/16 20:00 Room Air Intake and Output 11/20/16 11/20/16 11/21/16 15:00 23:00 07:00 Intake Total 2260 ml 600 ml Output Total 4000 ml Balance -1740 ml 600 ml Exam Constitutional: alert, oriented Results Result Diagram: 11/21/16 0547 11/21/16 0547 Results 24 hrs Laboratory Tests Test 11/20/16 17:15 11/20/16 21:06 11/21/16 02:33 11/21/16 05:47 Bedside Glucose 190 250 H 162 White Blood Count 3.7 L Red Blood Count 2.76 #L Hemoglobin 9.0 #L Hematocrit 28.2 L Mean Corpuscular Volume 102.2 H Mean Corpuscular Hemoglobin 32.6 Mean Corpuscular Hemoglobin Concent 31.9 L Red Cell Distribution Width 17.0 #H Platelet Count 195 Mean Platelet Volume 11.0 H Neutrophils % 42.6 Lymphocytes % 36.2 Monocytes % 17.2 H Eosinophils % 3.2 Basophils % 0.5 Nucleated Red Blood Cells % 0.0 Neutrophils # (Manual) 2 Lymphocytes # 1.4 Monocytes # 0.6 Eosinophils # 0.1 Basophils # 0.0 Nucleated Red Blood Cells # 0.0 Sodium Level 133 L Potassium Level 4.5 Chloride Level 94 L Carbon Dioxide Level 27 Anion Gap 17 H Blood Urea Nitrogen 46 #H Creatinine 4.59 #H Glucose Level 174 Calcium Level 8.1 L Test 11/21/16 07:09 11/21/16 07:55 11/21/16 11:57 Lab Scanned Report BLOOD TRANSFUSION Bedside Glucose 157 130 Medications Medications Current Medications Alprazolam (Xanax) 0.25 mg TID PRN PO ANXIETY Last administered on 11/20/16 12 :21; Admin Dose 0.25 MG; Start 11/13/16 at 21:30 Amlodipine Besylate (Norvasc) 10 mg DAILY PO Last administered on 11/21/16 08: 25; Admin Dose 10 MG; Start 11/14/16 at 09:00 Aspirin (Halfprin) 81 mg DAILY PO Last administered on 11/21/16 08:23; Admin Dose 81 MG; Start 11/14/16 at 09:00 Atorvastatin Calcium (Lipitor) 40 mg QHS PO Last administered on 11/20/16 21: 09; Admin Dose 40 MG; Start 11/14/16 at 21:00 Carvedilol (Coreg) 6.25 mg DAILY PO Last administered on 11/21/16 08:24; Admin Dose 6.25 MG; Start 11/14/16 at 09:00 Clonidine (Catapres) 0.2 mg TID PRN PO SBP>170; Start 11/13/16 at 21:30 Clopidogrel Bisulfate (plaVIX) 75 mg DAILY PO Last administered on 11/21/16 08 :23; Admin Dose 75 MG; Start 11/14/16 at 09:00 Docusate Sodium (Colace) 100 mg BID PO Last administered on 11/21/16 08:23; Admin Dose 100 MG; Start 11/14/16 at 09:00 Folic Acid (Folic Acid) 1 mg DAILY PO Last administered on 11/21/16 08:23; Admin Dose 1 MG; Start 11/14/16 at 09:00 Gabapentin (Neurontin) 300 mg BID PO Last administered on 11/21/16 08:23; Admin Dose 300 MG; Start 11/14/16 at 09:00 Losartan Potassium (Cozaar) 50 mg DAILY PO Last administered on 11/21/16 08:24 ; Admin Dose 50 MG; Start 11/14/16 at 09:00 Multivit/Ca Carb/ B Cmplx/FA/Prenat (Addie-Mikayla) 1 tab DAILY PO Last administered on 11/21/16 08:23; Admin Dose 1 TAB; Start 11/14/16 at 09:00 Morphine Sulfate (morphine) 2 mg Q6H PRN IV PAIN LEVEL 7-10 Last administered on 11/21/16 13:13; Admin Dose 2 MG; Start 11/13/16 at 21:30 Acetaminophen (Tylenol Tab) 650 mg Q6H PRN PO ELEVATED TEMPERATURE Last administered on 11/21/16 12:09; Admin Dose 650 MG; Start 11/13/16 at 21:30 Miscellaneous Information 1 ea NOTE XX ; Start 11/13/16 at 22:00 Glucose (Glutose) 15 gm Q15M PRN PO DECREASED GLUCOSE; Start 11/13/16 at 22:00 Glucose (Glutose) 22.5 gm Q15M PRN PO DECREASED GLUCOSE; Start 11/13/16 at 22: 00 Dextrose (D50w Syringe) 25 ml Q15M PRN IV DECREASED GLUCOSE; Start 11/13/16 at 22:00 Dextrose (D50w Syringe) 50 ml Q15M PRN IV DECREASED GLUCOSE; Start 11/13/16 at 22:00 Glucagon (Glucagen) 1 mg Q15M PRN IM DECREASED GLUCOSE; Start 11/13/16 at 22:00 Glucose (Glutose) 15 gm Q15M PRN BUCCAL DECREASED GLUCOSE; Start 11/13/16 at 22 :00 Diagnostic Test (Pha) (Accu-Chek) 1 ea 02 XX ; Start 11/14/16 at 02:00 Acetaminophen/ Hydrocodone Bitart ([place] (5/325)) 1 tab Q4H PRN PO PAIN LEVEL 4 -6 Last administered on 11/20/16 14:52; Admin Dose 1 TAB; Start 11/14/16 at 13: 00 Linagliptin (Tradjenta) 5 mg DAILY PO Last administered on 11/21/16 08:23; Admin Dose 5 MG; Start 11/14/16 at 12:30 Acetaminophen 325 mg 325 mg TuThSa PO ; Start 11/15/16 at 15:30 Sodium Chloride (NS) 1,000 ml @ 0 mls/hr Q0M PRN IV TO KEEP SBP ABOVE 90; Start 11/14/16 at 16:54 Diphenhydramine HCl (Benadryl) 50 mg Q8 PO Last administered on 11/21/16 05:11 ; Admin Dose 50 MG; Start 11/15/16 at 14:00 Bacitracin (Bacitracin 0.5%/ Zinc Oint) 1 applic BID TOP Last administered on 08:33; Admin Dose 1 APPLIC; Start 11/15/16 at 21:00 Cyclobenzaprine HCl (Flexeril) 5 mg Q6 PO Last administered on 11/21/16 12:08 ; Admin Dose 5 MG; Start 11/16/16 at 18:00 Multi-Ingredient Ointment 1 applic 1 applic BID TOP Last administered on 08:39; Admin Dose 1 APPLIC; Start 11/17/16 at 08:49 Vancomycin HCl (Vancocin) 250 ml @ 125 mls/hr Q96H IVPB Last administered on 22:25; Admin Dose 125 MLS/HR; Start 11/19/16 at 22:00 Insulin Glargine (Lantus) 20 unit DAILY@20 SC Last administered on 11/20/16 21 :14; Admin Dose 20 UNIT; Start 11/20/16 at 20:00 KUNAL RAMOS Nov 21, 2016 14:57
--- NOTE | 2016-11-21 15:50 | CONS ---
CORONA HOLLIS [employer] 11/21/16 1550: Date/Time of Note Date/Time of Note DATE: 11/21/16 TIME: 15:48 Assessment/Plan Assessment/Plan Chief Complaint/Hosp Course assessment/impression: - skin and soft tissue infection of LLE with eschar. CT was negative for osteomyelitis - pain of LLE likely multifactorial: skin and soft tissue infection, PVD, lymphadenitis - PVD - s/p bypass of LLE - DM - Hgb A1c 8.8% - h/o OM of b/l feet, s/p amputation of R two toes - diabetic neuropathy - ESRD on HD 3 times a week, now via LUE AVF - s/p R chest wall permacath removal 11/17/2016 - Anemia of chronic disease - CHF and CAD - s/p orthopedic procedures to RUE with metal prosthetic after bone Fx - dry skin and pruritis, which started prior to admission - possible red man syndrome due to vancomycin - neck pain, upper back pain and shoulder pain - C-Spine x-ray showed no acute process - morbid obesity - BMI 39.7 recommendations: - continue renally dosed vancomycin (11/13/2016-) with premedication protocol: benadryl and tylenol 30 min prior to infusion, and extended infusion time of 2 hrs. Suggested end date 11/23/2016 and then reassess. It was explained that pain is likely due to her vascular insufficiency and may not readily resolve - keep LEs elevated to decrease lymphadema Management d/w patient, RPO Brunner, and Dr. Thrasher Problems: Consultation Date/Type/Reason Admit Date/Time Nov 13, 2016 at 18:46 Initial Consult Date 11/14/16 Type of Consultation: Infectious Disease Referring Provider: VIOLET RUDOLPH 24 HR Interval Summary Free Text/Dictation C/o severe posterior neck/upper back/bilateral shoulder pain and reports awaiting MRI C spine. Pt previously c/o dysphagia but noted eating 100% of meals per nursing staff. Denies n/v/d. S/p 1 unit PRBC with HD yesterday with appropriate response. Exam/Review of Systems Vital Signs Vitals Vital Signs Date Time Temp Pulse Resp B/P Pulse Ox O2 Delivery O2 Flow Rate FiO2 11/21/16 14:47 98.8 70 18 138/64 94 11/18/16 20:00 Room Air Intake and Output 8/17/17 8/17/17 8/18/17 15:00 23:00 07:00 Intake Total 2260 ml 600 ml Output Total 4000 ml Balance -1740 ml 600 ml Exam Constitutional: alert, obese, oriented, well developed, other (sitting at side of bed in NAD) Head: atraumatic, normocephalic Eyes: nl conjunctiva, nl sclera ENMT: nl external ears & nose Neck: supple Respiratory: clear to auscultation Cardiovascular: edema, regular rate and rhythm Gastrointestinal: non-tender, other (obese), soft Extremities: other (LUE AV fistula +bruit/thrill) Neurological: nl mental status Skin: rash or lesions (Small eschar on LLE with surrounding improved erythema; TTP) Results Result Diagram: 11/21/16 0547 11/21/16 0547 Results 24 hrs Laboratory Tests Test 11/20/16 17:15 11/20/16 21:06 11/21/16 02:33 11/21/16 05:47 Bedside Glucose 190 250 H 162 White Blood Count 3.7 L Red Blood Count 2.76 #L Hemoglobin 9.0 #L Hematocrit 28.2 L Mean Corpuscular Volume 102.2 H Mean Corpuscular Hemoglobin 32.6 Mean Corpuscular Hemoglobin Concent 31.9 L Red Cell Distribution Width 17.0 #H Platelet Count 195 Mean Platelet Volume 11.0 H Neutrophils % 42.6 Lymphocytes % 36.2 Monocytes % 17.2 H Eosinophils % 3.2 Basophils % 0.5 Nucleated Red Blood Cells % 0.0 Neutrophils # (Manual) 2 Lymphocytes # 1.4 Monocytes # 0.6 Eosinophils # 0.1 Basophils # 0.0 Nucleated Red Blood Cells # 0.0 Sodium Level 133 L Potassium Level 4.5 Chloride Level 94 L Carbon Dioxide Level 27 Anion Gap 17 H Blood Urea Nitrogen 46 #H Creatinine 4.59 #H Glucose Level 174 Calcium Level 8.1 L Test 11/21/16 07:09 11/21/16 07:55 11/21/16 11:57 Lab Scanned Report BLOOD TRANSFUSION Bedside Glucose 157 130 Medications Medications Current Medications Alprazolam (Xanax) 0.25 mg TID PRN PO ANXIETY Last administered on 11/20/16t 12 :21; Admin Dose 0.25 MG; Start 11/13/16 at 21:30 Amlodipine Besylate (Norvasc) 10 mg DAILY PO Last administered on 11/21/16 08: 25; Admin Dose 10 MG; Start 11/14/16 at 09:00 Aspirin (Halfprin) 81 mg DAILY PO Last administered on 11/21/16 08:23; Admin Dose 81 MG; Start 11/14/16 at 09:00 Atorvastatin Calcium (Lipitor) 40 mg QHS PO Last administered on 11/20/16 21: 09; Admin Dose 40 MG; Start 11/14/16 at 21:00 Carvedilol (Coreg) 6.25 mg DAILY PO Last administered on 11/21/16 08:24; Admin Dose 6.25 MG; Start 11/14/16 at 09:00 Clonidine (Catapres) 0.2 mg TID PRN PO SBP>170; Start 11/13/16 at 21:30 Clopidogrel Bisulfate (plaVIX) 75 mg DAILY PO Last administered on 11/21/16 08 :23; Admin Dose 75 MG; Start 11/14/16 at 09:00 Docusate Sodium (Colace) 100 mg BID PO Last administered on 11/21/16 08:23; Admin Dose 100 MG; Start 11/14/16 at 09:00 Folic Acid (Folic Acid) 1 mg DAILY PO Last administered on 11/21/16 08:23; Admin Dose 1 MG; Start 11/14/16 at 09:00 Gabapentin (Neurontin) 300 mg BID PO Last administered on 11/21/16 08:23; Admin Dose 300 MG; Start 11/14/16 at 09:00 Losartan Potassium (Cozaar) 50 mg DAILY PO Last administered on 11/21/16 08:24 ; Admin Dose 50 MG; Start 11/14/16 at 09:00 Multivit/Ca Carb/ B Cmplx/FA/Prenat (Addie-Mikayla) 1 tab DAILY PO Last administered on 11/21/16 08:23; Admin Dose 1 TAB; Start 11/14/16 at 09:00 Morphine Sulfate (morphine) 2 mg Q6H PRN IV PAIN LEVEL 7-10 Last administered on 11/21/16 13:13; Admin Dose 2 MG; Start 11/13/16 at 21:30 Acetaminophen (Tylenol Tab) 650 mg Q6H PRN PO ELEVATED TEMPERATURE Last administered on 11/21/16 12:09; Admin Dose 650 MG; Start 11/13/16 at 21:30 Miscellaneous Information 1 ea NOTE XX ; Start 11/13/16 at 22:00 Glucose (Glutose) 15 gm Q15M PRN PO DECREASED GLUCOSE; Start 11/13/16 at 22:00 Glucose (Glutose) 22.5 gm Q15M PRN PO DECREASED GLUCOSE; Start 11/13/16 at 22: 00 Dextrose (D50w Syringe) 25 ml Q15M PRN IV DECREASED GLUCOSE; Start 11/13/16 at 22:00 Dextrose (D50w Syringe) 50 ml Q15M PRN IV DECREASED GLUCOSE; Start 11/13/16 at 22:00 Glucagon (Glucagen) 1 mg Q15M PRN IM DECREASED GLUCOSE; Start 11/13/16 at 22:00 Glucose (Glutose) 15 gm Q15M PRN BUCCAL DECREASED GLUCOSE; Start 11/13/16 at 22 :00 Diagnostic Test (Pha) (Accu-Chek) 1 ea 02 XX ; Start 11/14/16 at 02:00 Acetaminophen/ Hydrocodone Bitart ([place] (5/325)) 1 tab Q4H PRN PO PAIN LEVEL 4 -6 Last administered on 11/20/16 14:52; Admin Dose 1 TAB; Start 11/14/16 at 13: 00 Linagliptin (Tradjenta) 5 mg DAILY PO Last administered on 11/21/16 08:23; Admin Dose 5 MG; Start 11/14/16 at 12:30 Acetaminophen 325 mg 325 mg TuThSa PO ; Start 11/15/16 at 15:30 Sodium Chloride (NS) 1,000 ml @ 0 mls/hr Q0M PRN IV TO KEEP SBP ABOVE 90; Start 11/14/16 at 16:54 Diphenhydramine HCl (Benadryl) 50 mg Q8 PO Last administered on 11/21/16 05:11 ; Admin Dose 50 MG; Start 11/15/16 at 14:00 Bacitracin (Bacitracin 0.5%/ Zinc Oint) 1 applic BID TOP Last administered on 08:33; Admin Dose 1 APPLIC; Start 11/15/16 at 21:00 Cyclobenzaprine HCl (Flexeril) 5 mg Q6 PO Last administered on 11/21/16 12:08 ; Admin Dose 5 MG; Start 11/16/16 at 18:00 Multi-Ingredient Ointment 1 applic 1 applic BID TOP Last administered on 08:39; Admin Dose 1 APPLIC; Start 11/17/16 at 08:49 Vancomycin HCl (Vancocin) 250 ml @ 125 mls/hr Q96H IVPB Last administered on 22:25; Admin Dose 125 MLS/HR; Start 11/19/16 at 22:00 Insulin Glargine (Lantus) 20 unit DAILY@20 SC Last administered on 11/20/16 21 :14; Admin Dose 20 UNIT; Start 11/20/16 at 20:00 ALEXANDER MARTÍNEZ M.D. 11/23/16 2126: Assessment/Plan Assessment/Plan Additional Assessment/Plan [place] attestation: I discussed the management with ROBERT Hollis and agree with above Exam/Review of Systems Results Result Diagram: 11/21/16 0547 11/21/16 0547 CORONA HOLLIS NP Nov 21, 2016 15:50 ALEXANDER MARTÍNEZ M.D. Nov 23, 2016 21:26
--- NOTE | 2016-11-21 17:25 | PN ---
Date/Time of Note Date/Time of Note DATE: 11/21/16 TIME: 17:22 Assessment/Plan VTE Prophylaxis VTE Prophylaxis Intervention: SCD's Lines/Catheters [facility] [place] Assessment/Plan Chief Complaint/Hosp Course Patient's continues to complain of neck pain, still pending MRI of the cervical spine which is scheduled later today, able to tolerate diet. Assessment/Plan -Neck pain, cervical x-rays negative, pending MRI of the cervical spine without contrast. -Left lower extremity cellulitis, Dr. Rice is following infection disease consultation, continue antibiotics per ID. -Severe PVD, with multiple vascular intervention including a left lower extremity bypass. Dr. Ruano is following an vascular surgery. -Hemodialysis dependent end-stage renal disease, Dr. Garcia is following in nephrology consultation, continue hemodialysis. -Diabetes mellitus type 2, continue Tradjenta Lantus and NovoLog -S/p orthopedic procedures to RUE with metal prosthetic after bone Fx Further recommendations based on clinical course. Plan of care discussed with Dr. Cordero. Problems: Exam/Review of Systems Vital Signs Vitals Vital Signs Date Time Temp Pulse Resp B/P Pulse Ox O2 Delivery O2 Flow Rate FiO2 11/21/16 14:47 98.8 70 18 138/64 94 11/18/16 20:00 Room Air Intake and Output 11/20/16 11/20/16 11/21/16 15:00 23:00 07:00 Intake Total 2260 ml 600 ml Output Total 4000 ml Balance -1740 ml 600 ml Exam Constitutional: alert, oriented Neck: supple Respiratory: clear to auscultation Cardiovascular: nl pulses Gastrointestinal: non-tender, soft Musculoskeletal: nl extremities to inspection Extremities: normal pulses Neurological: nl mental status Skin: other (LLE wound with eschar) Results Result Diagram: 11/21/16 0547 11/21/16 0547 Results 24 hrs Laboratory Tests Test 11/20/16 21:06 11/21/16 02:33 11/21/16 05:47 11/21/16 07:09 Bedside Glucose 250 H 162 White Blood Count 3.7 L Red Blood Count 2.76 #L Hemoglobin 9.0 #L Hematocrit 28.2 L Mean Corpuscular Volume 102.2 H Mean Corpuscular Hemoglobin 32.6 Mean Corpuscular Hemoglobin Concent 31.9 L Red Cell Distribution Width 17.0 #H Platelet Count 195 Mean Platelet Volume 11.0 H Neutrophils % 42.6 Lymphocytes % 36.2 Monocytes % 17.2 H Eosinophils % 3.2 Basophils % 0.5 Nucleated Red Blood Cells % 0.0 Neutrophils # (Manual) 2 Lymphocytes # 1.4 Monocytes # 0.6 Eosinophils # 0.1 Basophils # 0.0 Nucleated Red Blood Cells # 0.0 Sodium Level 133 L Potassium Level 4.5 Chloride Level 94 L Carbon Dioxide Level 27 Anion Gap 17 H Blood Urea Nitrogen 46 #H Creatinine 4.59 #H Glucose Level 174 Calcium Level 8.1 L Lab Scanned Report BLOOD TRANSFUSION Test 11/21/16 07:55 11/21/16 11:57 Bedside Glucose 157 130 Medications Medications Current Medications Alprazolam (Xanax) 0.25 mg TID PRN PO ANXIETY Last administered on 11/20/16 12 :21; Admin Dose 0.25 MG; Start 11/13/16 at 21:30 Amlodipine Besylate (Norvasc) 10 mg DAILY PO Last administered on 11/21/16 08: 25; Admin Dose 10 MG; Start 11/14/16 at 09:00 Aspirin (Halfprin) 81 mg DAILY PO Last administered on 11/21/16 08:23; Admin Dose 81 MG; Start 11/14/16 at 09:00 Atorvastatin Calcium (Lipitor) 40 mg QHS PO Last administered on 11/20/16 21: 09; Admin Dose 40 MG; Start 11/14/16 at 21:00 Carvedilol (Coreg) 6.25 mg DAILY PO Last administered on 11/21/16 08:24; Admin Dose 6.25 MG; Start 11/14/16 at 09:00 Clonidine (Catapres) 0.2 mg TID PRN PO SBP>170; Start 11/13/16 at 21:30 Clopidogrel Bisulfate (plaVIX) 75 mg DAILY PO Last administered on 11/21/16 08 :23; Admin Dose 75 MG; Start 11/14/16 at 09:00 Docusate Sodium (Colace) 100 mg BID PO Last administered on 11/21/16 08:23; Admin Dose 100 MG; Start 11/14/16 at 09:00 Folic Acid (Folic Acid) 1 mg DAILY PO Last administered on 11/21/16 08:23; Admin Dose 1 MG; Start 11/14/16 at 09:00 Gabapentin (Neurontin) 300 mg BID PO Last administered on 11/21/16 08:23; Admin Dose 300 MG; Start 11/14/16 at 09:00 Losartan Potassium (Cozaar) 50 mg DAILY PO Last administered on 11/21/16 08:24 ; Admin Dose 50 MG; Start 11/14/16 at 09:00 Multivit/Ca Carb/ B Cmplx/FA/Prenat (Addie-Mikayla) 1 tab DAILY PO Last administered on 11/21/16 08:23; Admin Dose 1 TAB; Start 11/14/16 at 09:00 Morphine Sulfate (morphine) 2 mg Q6H PRN IV PAIN LEVEL 7-10 Last administered on 11/21/16 13:13; Admin Dose 2 MG; Start 11/13/16 at 21:30 Acetaminophen (Tylenol Tab) 650 mg Q6H PRN PO ELEVATED TEMPERATURE Last administered on 11/21/16 12:09; Admin Dose 650 MG; Start 11/13/16 at 21:30 Miscellaneous Information 1 ea NOTE XX ; Start 11/13/16 at 22:00 Glucose (Glutose) 15 gm Q15M PRN PO DECREASED GLUCOSE; Start 11/13/16 at 22:00 Glucose (Glutose) 22.5 gm Q15M PRN PO DECREASED GLUCOSE; Start 11/13/16 at 22: 00 Dextrose (D50w Syringe) 25 ml Q15M PRN IV DECREASED GLUCOSE; Start 11/13/16 at 22:00 Dextrose (D50w Syringe) 50 ml Q15M PRN IV DECREASED GLUCOSE; Start 11/13/16 at 22:00 Glucagon (Glucagen) 1 mg Q15M PRN IM DECREASED GLUCOSE; Start 11/13/16 at 22:00 Glucose (Glutose) 15 gm Q15M PRN BUCCAL DECREASED GLUCOSE; Start 11/13/16 at 22 :00 Diagnostic Test (Pha) (Accu-Chek) 1 ea 02 XX ; Start 11/14/16 at 02:00 Acetaminophen/ Hydrocodone Bitart ([place] (5/325)) 1 tab Q4H PRN PO PAIN LEVEL 4 -6 Last administered on 11/20/16 14:52; Admin Dose 1 TAB; Start 8/11/17 at 13: 00 Linagliptin (Tradjenta) 5 mg DAILY PO Last administered on 11/21/16 08:23; Admin Dose 5 MG; Start 11/14/16 at 12:30 Acetaminophen 325 mg 325 mg TuThSa PO ; Start 11/15/16 at 15:30 Sodium Chloride (NS) 1,000 ml @ 0 mls/hr Q0M PRN IV TO KEEP SBP ABOVE 90; Start 11/14/16 at 16:54 Diphenhydramine HCl (Benadryl) 50 mg Q8 PO Last administered on 11/21/16 05:11 ; Admin Dose 50 MG; Start 11/15/16 at 14:00 Bacitracin (Bacitracin 0.5%/ Zinc Oint) 1 applic BID TOP Last administered on 08:33; Admin Dose 1 APPLIC; Start 11/15/16 at 21:00 Cyclobenzaprine HCl (Flexeril) 5 mg Q6 PO Last administered on 11/21/16 12:08 ; Admin Dose 5 MG; Start 11/16/16 at 18:00 Multi-Ingredient Ointment 1 applic 1 applic BID TOP Last administered on 08:39; Admin Dose 1 APPLIC; Start 11/17/16 at 08:49 Vancomycin HCl (Vancocin) 250 ml @ 125 mls/hr Q96H IVPB Last administered on 22:25; Admin Dose 125 MLS/HR; Start 11/19/16 at 22:00 Insulin Glargine (Lantus) 20 unit DAILY@20 SC Last administered on 11/20/16 21 :14; Admin Dose 20 UNIT; Start 11/20/16 at 20:00 ANTHONY DUPREE Nov 21, 2016 17:25
[2016-11-21] MEDS ORDERED: ALPRAZOLAM 0.25 MG TAB PO PRN (18:00)
[2016-11-21 19:45] VITALS: BP 145/64; RESP 18
[2016-11-21] MEDS: ATORVASTATIN 40 MG TAB PO SCH (19:51)
[2016-11-21] MEDS: INSULIN GLARGINE [LANtus] 3 ML PEN SC SCH (20:03)
[2016-11-22] VITALS (11 sets, daily range): BP systolic 129–189; BP diastolic 46–82; PULSE 67–73; RESP 18–20
[2016-11-22] MEDS: ACCU-CHEK XX SCH (02:00)
[2016-11-22] MEDS: morphine 2 MG INJ IV PRN ×3 (05:12→20:19)
[2016-11-22] MEDS: FUROSEMIDE 40 MG TAB PO SCH ×2 (05:12→18:01)
[2016-11-22] MEDS: DIPHENHYDRAMINE 50 MG CAP PO SCH ×3 (05:13→23:23)
[2016-11-22] MEDS: CYCLOBENZAPRINE 10 MG TAB PO SCH ×5 (05:13→23:23)
[2016-11-22 06:45] LABS: BASOPHILS % 0.5 % (0.0-2.0); EOSINOPHILS # 0.1 10^3/ul (0.0-0.5); EOSINOPHILS % 2.7 % (0.0-7.0); HEMATOCRIT 26.7 % (37.0-47.0); HEMOGLOBIN 8.4 g/dl (12.0-16.0); LYMPHOCYTES # 1.3 10^3/ul (0.8-2.9); LYMPHOCYTES % 33.3 % (15.0-51.0); MEAN CORPUSCULAR HEMOGLOBIN 31.8 pg (29.0-33.0); MEAN CORPUSCULAR HGB CONC 31.5 g/dl (32.0-37.0); MEAN CORPUSCULAR VOLUME 101.1 fl (82.0-101.0); MEAN PLATELET VOLUME 11.4 fl (7.4-10.4); MONOCYTE # 0.6 10^3/ul (0.3-0.9); MONOCYTES % 14.6 % (0.0-11.0); NEUTROPHILS % 48.9 % (39.0-77.0); PLATELET COUNT 193 10^3/UL (140-415); RED BLOOD COUNT 2.64 10^6/ul (4.20-5.40); RED CELL DISTRIBUTION WIDTH 15.9 % (11.5-14.5)
[2016-11-22 07:14] LABS: CALCIUM 8.1 mg/dl (8.4-10.2); CREATININE 5.94 mg/dl (0.44-1.00); POTASSIUM 4.8 mmol/L (3.5-5.1)
[2016-11-22] MEDS: INSULIN ASPART [NOVOLOG] 3 ML PEN SC SCH ×7 (08:15→20:24)
[2016-11-22] MEDS: SEVELAMER CARBONATE 0.8 GM PKT PO SCH ×3 (08:15→17:54)
[2016-11-22] MEDS: ASPIRIN (EC) 81 MG TAB PO SCH (08:33)
[2016-11-22] MEDS: DOCUSATE SODIUM 100 MG CAP PO SCH ×2 (08:33→20:22)
[2016-11-22] MEDS: LINAGLIPTIN 5 MG TABLET PO SCH (08:33)
[2016-11-22] MEDS: FOLIC ACID 1 MG TAB PO SCH (08:33)
[2016-11-22] MEDS: CLOPIDOGREL 75 MG TAB PO SCH (08:33)
[2016-11-22] MEDS: PANTOPRAZOLE (EC) 40 MG TAB PO SCH (08:33)
[2016-11-22] MEDS: MULTIVIT/CA CARB/B CMPLX/FA TAB PO SCH (08:33)
[2016-11-22] MEDS: GABAPENTIN 300 MG CAP PO SCH ×2 (08:33→20:22)
[2016-11-22] MEDS: AMLODIPINE 10 MG TAB PO SCH ×2 (08:34→13:52)
[2016-11-22] MEDS: EUCERIN 113 GM CR TOP SCH ×2 (08:34→20:24)
[2016-11-22] MEDS: LOSARTAN 50 MG TAB PO SCH ×2 (08:34→13:53)
[2016-11-22] MEDS: BACITRACIN 0.5%/ZINC 28.35 GM OINT TOP SCH ×2 (08:34→20:23)
[2016-11-22] MEDS ORDERED: ALPRAZOLAM 0.25 MG TAB PO ONE (09:00)
--- NOTE | 2016-11-22 09:06 | PN ---
Date/Time of Note Date/Time of Note DATE: 11/22/16 TIME: 09:05 Assessment/Plan VTE Prophylaxis VTE Prophylaxis Intervention: other Lines/Catheters IV Catheter Type (from Nrs): Saline Lock Assessment/Plan Chief Complaint/Hosp Course -Neck pain, cervical x-rays negative, pending MRI of the cervical spine without contrast. -Left lower extremity cellulitis, Dr. Rice is following infection disease consultation, continue antibiotics per ID. -Severe PVD, with multiple vascular intervention including a left lower extremity bypass. Dr. Ruano is following an vascular surgery. -Hemodialysis dependent end-stage renal disease, Dr. Garcia is following in nephrology consultation, continue hemodialysis. -Diabetes mellitus type 2, continue Tradjenta Lantus and NovoLog -S/p orthopedic procedures to RUE with metal prosthetic after bone Fx Problems: Subjective 24 Hr Interval Summary Free Text/Dictation Patient has no complaints Exam/Review of Systems Vital Signs Vitals Vital Signs Date Time Temp Pulse Resp B/P Pulse Ox O2 Delivery O2 Flow Rate FiO2 11/22/16 07:43 98.6 77 20 158/69 93 11/18/16 20:00 Room Air Intake and Output 11/21/16 11/21/16 11/22/16 15:00 23:00 07:00 Intake Total 1440 ml 1240 ml Balance 1440 ml 1240 ml Exam Constitutional: well developed Head: atraumatic, normocephalic Neck: supple Respiratory: clear to auscultation Cardiovascular: regular rate and rhythm Gastrointestinal: non-tender, soft Extremities: normal pulses Results Result Diagram: 11/22/16 0552 11/22/16 0552 Results 24 hrs Laboratory Tests Test 11/21/16 11:57 11/21/16 17:21 11/21/16 19:48 11/22/16 02:41 Bedside Glucose 130 127 221 H 146 Test 11/22/16 05:52 11/22/16 08:17 White Blood Count 4.0 L Red Blood Count 2.64 L Hemoglobin 8.4 L Hematocrit 26.7 L Mean Corpuscular Volume 101.1 H Mean Corpuscular Hemoglobin 31.8 Mean Corpuscular Hemoglobin Concent 31.5 L Red Cell Distribution Width 15.9 H Platelet Count 193 Mean Platelet Volume 11.4 H Neutrophils % 48.9 Lymphocytes % 33.3 Monocytes % 14.6 H Eosinophils % 2.7 Basophils % 0.5 Nucleated Red Blood Cells % 0.0 Neutrophils # (Manual) 2 Lymphocytes # 1.3 Monocytes # 0.6 Eosinophils # 0.1 Basophils # 0.0 Nucleated Red Blood Cells # 0.0 Sodium Level 132 L Potassium Level 4.8 Chloride Level 94 L Carbon Dioxide Level 26 Anion Gap 17 H Blood Urea Nitrogen 61 H Creatinine 5.94 H Glucose Level 159 Calcium Level 8.1 L Bedside Glucose 193 Medications Medications Current Medications Alprazolam (Xanax) 0.25 mg TID PRN PO ANXIETY Last administered on 11/20/16 12 :21; Admin Dose 0.25 MG; Start 11/13/16 at 21:30 Amlodipine Besylate (Norvasc) 10 mg DAILY PO Last administered on 11/21/16 08: 25; Admin Dose 10 MG; Start 11/14/16 at 09:00 Aspirin (Halfprin) 81 mg DAILY PO Last administered on 11/22/16 08:33; Admin Dose 81 MG; Start 11/14/16 at 09:00 Atorvastatin Calcium (Lipitor) 40 mg QHS PO Last administered on 11/21/16 19: 51; Admin Dose 40 MG; Start 11/14/16 at 21:00 Carvedilol (Coreg) 6.25 mg DAILY PO Last administered on 11/21/16 08:24; Admin Dose 6.25 MG; Start 11/14/16 at 09:00 Clonidine (Catapres) 0.2 mg TID PRN PO SBP>170; Start 11/13/16 at 21:30 Clopidogrel Bisulfate (plaVIX) 75 mg DAILY PO Last administered on 11/22/16 08 :33; Admin Dose 75 MG; Start 11/14/16 at 09:00 Docusate Sodium (Colace) 100 mg BID PO Last administered on 11/22/16 08:33; Admin Dose 100 MG; Start 11/14/16 at 09:00 Folic Acid (Folic Acid) 1 mg DAILY PO Last administered on 11/22/16 08:33; Admin Dose 1 MG; Start 11/14/16 at 09:00 Gabapentin (Neurontin) 300 mg BID PO Last administered on 11/22/16 08:33; Admin Dose 300 MG; Start 11/14/16 at 09:00 Losartan Potassium (Cozaar) 50 mg DAILY PO Last administered on 11/21/16 08:24 ; Admin Dose 50 MG; Start 11/14/16 at 09:00 Multivit/Ca Carb/ B Cmplx/FA/Prenat (Addie-Mikayla) 1 tab DAILY PO Last administered on 11/22/16 08:33; Admin Dose 1 TAB; Start 11/14/16 at 09:00 Morphine Sulfate (morphine) 2 mg Q6H PRN IV PAIN LEVEL 7-10 Last administered on 11/22/16 05:12; Admin Dose 2 MG; Start 11/13/16 at 21:30 Acetaminophen (Tylenol Tab) 650 mg Q6H PRN PO ELEVATED TEMPERATURE Last administered on 11/21/16 12:09; Admin Dose 650 MG; Start 11/13/16 at 21:30 Miscellaneous Information 1 ea NOTE XX ; Start 11/13/16 at 22:00 Glucose (Glutose) 15 gm Q15M PRN PO DECREASED GLUCOSE; Start 11/13/16 at 22:00 Glucose (Glutose) 22.5 gm Q15M PRN PO DECREASED GLUCOSE; Start 11/13/16 at 22: 00 Dextrose (D50w Syringe) 25 ml Q15M PRN IV DECREASED GLUCOSE; Start 11/13/16 at 22:00 Dextrose (D50w Syringe) 50 ml Q15M PRN IV DECREASED GLUCOSE; Start 11/13/16 at 22:00 Glucagon (Glucagen) 1 mg Q15M PRN IM DECREASED GLUCOSE; Start 11/13/16 at 22:00 Glucose (Glutose) 15 gm Q15M PRN BUCCAL DECREASED GLUCOSE; Start 11/13/16 at 22 :00 Diagnostic Test (Pha) (Accu-Chek) 1 ea 02 XX ; Start 11/14/16 at 02:00 Acetaminophen/ Hydrocodone Bitart ([place] (5/325)) 1 tab Q4H PRN PO PAIN LEVEL 4 -6 Last administered on 11/20/16 14:52; Admin Dose 1 TAB; Start 11/14/16 at 13: 00 Linagliptin (Tradjenta) 5 mg DAILY PO Last administered on 11/22/16 08:33; Admin Dose 5 MG; Start 11/14/16 at 12:30 Acetaminophen 325 mg 325 mg TuThSa PO ; Start 11/15/16 at 15:30 Sodium Chloride (NS) 1,000 ml @ 0 mls/hr Q0M PRN IV TO KEEP SBP ABOVE 90; Start 11/14/16 at 16:54 Diphenhydramine HCl (Benadryl) 50 mg Q8 PO Last administered on 11/22/16 05:13 ; Admin Dose 50 MG; Start 11/15/16 at 14:00 Bacitracin (Bacitracin 0.5%/ Zinc Oint) 1 applic BID TOP Last administered on 08:34; Admin Dose 1 APPLIC; Start 11/15/16 at 21:00 Cyclobenzaprine HCl (Flexeril) 5 mg Q6 PO Last administered on 11/22/16 05:13 ; Admin Dose 5 MG; Start 11/16/16 at 18:00 Multi-Ingredient Ointment 1 applic 1 applic BID TOP Last administered on 08:34; Admin Dose 1 APPLIC; Start 11/17/16 at 08:49 Vancomycin HCl (Vancocin) 250 ml @ 125 mls/hr Q96H IVPB Last administered on 22:25; Admin Dose 125 MLS/HR; Start 11/19/16 at 22:00 Insulin Glargine (Lantus) 20 unit DAILY@20 SC Last administered on 11/21/16 20 :03; Admin Dose 20 UNIT; Start 11/20/16 at 20:00 Alprazolam (Xanax) 0.25 mg Q8H PRN PO ANXIETY Last administered on 11/21/16 17 :50; Admin Dose 0.25 MG; Start 11/21/16 at 18:00 Alprazolam (Xanax) 0.5 mg ONCE ONCE PO ; Start 11/22/16 at 09:00; Stop at 09:01; Status CARYL SUTHERLAND Nov 22, 2016 09:06
[2016-11-22] MEDS: ACETAMINOPHEN 325 MG TAB PO SCH (15:30)
--- NOTE | 2016-11-22 16:37 | RADRPT ---
PROCEDURE: MRI Cervical Spine without contrast. CLINICAL INDICATION: 56-year-old female with cervical spine pain. No prior surgery. TECHNIQUE: An MRI of the cervical spine was performed without contrast utilizing multiple sequence s in the sagittal and axial planes. The patient refused further imaging after the sagittal T2 and S TIR sequences. No axial sequences were acquired. Images reviewed on a high-resolution PACS system. . COMPARISON: No prior studies are available for comparison. FINDINGS: There is mild imaged degradation due to motion artifact on the sagittal STIR sequences. There is pr evertebral soft tissue swelling anterior to the C5-6 and C6-7 levels, incompletely evaluated due to lack of axial sequences. There is concern for possible fluid in the disc-space on the sagittal STIR sequences (sagittal series image 8). No definite cord signal abnormality is seen. The remaining in tervertebral discs demonstrate normal signal. The visualized portion of the anterior longitudinal l igament appears intact. IMPRESSION: 1. Significantly limited evaluation due to sagittal T2/STIR sequences with associated motion artifa ct. 2. Prevertebral soft tissue swelling anterior to the C5-6 and C6-7 levels, incompletely evaluated. This may be related to inflammation of the prevertebral soft tissues such as pharyngitis, however t here is a trace amount of fluid in the disc-space at C5-6. Concern for diskitis/osteomyelitis is ra ised. Repeat MRI with and without contrast is recommended for further evaluation. The above findings were discussed with Patient's Nurse Myesha by telephone on 11/22/2016 4:33:21 PM. RPTAT: HGAS .Jeffery Parsons MD, Date Time Electronically viewed and signed by .Jeffery Parsons MD, MD on 11/22/2016 16:36 .S/
--- NOTE | 2016-11-22 16:56 | CONS ---
Date/Time of Note Date/Time of Note DATE: 11/22/16 TIME: 16:55 Assessment/Plan Assessment/Plan Chief Complaint/Hosp Course 1. Left lower extremity cellulitis 2. ESRD. 3. Severe peripheral vascular disease with left lower extremity ischemia, status post angiogram intervention. 4. Peripheral neuropathy. 5. Depression. 6. Anemia of chronic disease. 7. Hypertension, controlled. 8. DM type II uncontrolled Problems: Additional Assessment/Plan 1. Better DM control Consultation Date/Type/Reason Admit Date/Time Nov 13, 2016 at 18:46 Initial Consult Date 11/13/2016 Type of Consultation: Nephrology Reason for Consultation Dr Garcia Referring Provider: VIOLET RUDOLPH Exam/Review of Systems Vital Signs Vitals Vital Signs Date Time Temp Pulse Resp B/P Pulse Ox O2 Delivery O2 Flow Rate FiO2 11/22/16 13:04 98.4 82 20 189/81 95 11/18/16 20:00 Room Air Intake and Output 11/21/16 11/21/16 11/22/16 15:00 23:00 07:00 Intake Total 1440 ml 1240 ml Balance 1440 ml 1240 ml Exam Constitutional: alert, oriented Musculoskeletal: swelling Results Result Diagram: 11/22/16 0552 11/22/16 0552 Results 24 hrs Laboratory Tests Test 11/21/16 17:21 11/21/16 19:48 11/22/16 02:41 11/22/16 05:52 Bedside Glucose 127 221 H 146 White Blood Count 4.0 L Red Blood Count 2.64 L Hemoglobin 8.4 L Hematocrit 26.7 L Mean Corpuscular Volume 101.1 H Mean Corpuscular Hemoglobin 31.8 Mean Corpuscular Hemoglobin Concent 31.5 L Red Cell Distribution Width 15.9 H Platelet Count 193 Mean Platelet Volume 11.4 H Neutrophils % 48.9 Lymphocytes % 33.3 Monocytes % 14.6 H Eosinophils % 2.7 Basophils % 0.5 Nucleated Red Blood Cells % 0.0 Neutrophils # (Manual) 2 Lymphocytes # 1.3 Monocytes # 0.6 Eosinophils # 0.1 Basophils # 0.0 Nucleated Red Blood Cells # 0.0 Sodium Level 132 L Potassium Level 4.8 Chloride Level 94 L Carbon Dioxide Level 26 Anion Gap 17 H Blood Urea Nitrogen 61 H Creatinine 5.94 H Glucose Level 159 Calcium Level 8.1 L Test 11/22/16 08:17 11/22/16 12:29 Bedside Glucose 193 172 Medications Medications Current Medications Alprazolam (Xanax) 0.25 mg TID PRN PO ANXIETY Last administered on 11/20/16 12 :21; Admin Dose 0.25 MG; Start 11/13/16 at 21:30 Amlodipine Besylate (Norvasc) 10 mg DAILY PO Last administered on 11/22/16 13: 52; Admin Dose 10 MG; Start 11/14/16 at 09:00 Aspirin (Halfprin) 81 mg DAILY PO Last administered on 11/22/16 08:33; Admin Dose 81 MG; Start 11/14/16 at 09:00 Atorvastatin Calcium (Lipitor) 40 mg QHS PO Last administered on 11/21/16 19: 51; Admin Dose 40 MG; Start 11/14/16 at 21:00 Carvedilol (Coreg) 6.25 mg DAILY PO Last administered on 11/22/16 13:53; Admin Dose 6.25 MG; Start 11/14/16 at 09:00 Clonidine (Catapres) 0.2 mg TID PRN PO SBP>170; Start 11/13/16 at 21:30 Clopidogrel Bisulfate (plaVIX) 75 mg DAILY PO Last administered on 11/22/16 08 :33; Admin Dose 75 MG; Start 11/14/16 at 09:00 Docusate Sodium (Colace) 100 mg BID PO Last administered on 11/22/16 08:33; Admin Dose 100 MG; Start 11/14/16 at 09:00 Folic Acid (Folic Acid) 1 mg DAILY PO Last administered on 11/22/16 08:33; Admin Dose 1 MG; Start 11/14/16 at 09:00 Gabapentin (Neurontin) 300 mg BID PO Last administered on 11/22/16 08:33; Admin Dose 300 MG; Start 11/14/16 at 09:00 Losartan Potassium (Cozaar) 50 mg DAILY PO Last administered on 11/22/16 13:53 ; Admin Dose 50 MG; Start 11/14/16 at 09:00 Multivit/Ca Carb/ B Cmplx/FA/Prenat (Addie-Mikayla) 1 tab DAILY PO Last administered on 11/22/16 08:33; Admin Dose 1 TAB; Start 11/14/16 at 09:00 Morphine Sulfate (morphine) 2 mg Q6H PRN IV PAIN LEVEL 7-10 Last administered on 11/22/16 13:49; Admin Dose 2 MG; Start 11/13/16 at 21:30 Acetaminophen (Tylenol Tab) 650 mg Q6H PRN PO ELEVATED TEMPERATURE Last administered on 11/21/16 12:09; Admin Dose 650 MG; Start 11/13/16 at 21:30 Miscellaneous Information 1 ea NOTE XX ; Start 11/13/16 at 22:00 Glucose (Glutose) 15 gm Q15M PRN PO DECREASED GLUCOSE; Start 11/13/16 at 22:00 Glucose (Glutose) 22.5 gm Q15M PRN PO DECREASED GLUCOSE; Start 11/13/16 at 22: 00 Dextrose (D50w Syringe) 25 ml Q15M PRN IV DECREASED GLUCOSE; Start 11/13/16 at 22:00 Dextrose (D50w Syringe) 50 ml Q15M PRN IV DECREASED GLUCOSE; Start 11/13/16 at 22:00 Glucagon (Glucagen) 1 mg Q15M PRN IM DECREASED GLUCOSE; Start 11/13/16 at 22:00 Glucose (Glutose) 15 gm Q15M PRN BUCCAL DECREASED GLUCOSE; Start 11/13/16 at 22 :00 Diagnostic Test (Pha) (Accu-Chek) 1 ea 02 XX ; Start 11/14/16 at 02:00 Acetaminophen/ Hydrocodone Bitart ([place] (5/325)) 1 tab Q4H PRN PO PAIN LEVEL 4 -6 Last administered on 11/20/16 14:52; Admin Dose 1 TAB; Start 11/14/16 at 13: 00 Linagliptin (Tradjenta) 5 mg DAILY PO Last administered on 11/22/16 08:33; Admin Dose 5 MG; Start 11/14/16 at 12:30 Acetaminophen 325 mg 325 mg TuThSa PO ; Start 11/15/16 at 15:30 Sodium Chloride (NS) 1,000 ml @ 0 mls/hr Q0M PRN IV TO KEEP SBP ABOVE 90; Start 11/14/16 at 16:54 Diphenhydramine HCl (Benadryl) 50 mg Q8 PO Last administered on 11/22/16 15:44 ; Admin Dose 50 MG; Start 11/15/16 at 14:00 Bacitracin (Bacitracin 0.5%/ Zinc Oint) 1 applic BID TOP Last administered on 08:34; Admin Dose 1 APPLIC; Start 11/15/16 at 21:00 Cyclobenzaprine HCl (Flexeril) 5 mg Q6 PO Last administered on 11/22/16 12:31 ; Admin Dose 5 MG; Start 11/16/16 at 18:00 Multi-Ingredient Ointment 1 applic 1 applic BID TOP Last administered on 08:34; Admin Dose 1 APPLIC; Start 11/17/16 at 08:49 Vancomycin HCl (Vancocin) 250 ml @ 125 mls/hr Q96H IVPB Last administered on 22:25; Admin Dose 125 MLS/HR; Start 11/19/16 at 22:00 Insulin Glargine (Lantus) 20 unit DAILY@20 SC Last administered on 11/21/16 20 :03; Admin Dose 20 UNIT; Start 11/20/16 at 20:00 Alprazolam (Xanax) 0.25 mg Q8H PRN PO ANXIETY Last administered on 11/21/16 17 :50; Admin Dose 0.25 MG; Start 11/21/16 at 18:00 Acetaminophen (Tylenol Tab) 325 mg Q96H PO ; Start 11/23/16 at 21:30 Diphenhydramine HCl (Benadryl) 25 mg Q96H PO ; Start 11/23/16 at 21:30 KUNAL RAMOS Nov 22, 2016 16:56
[2016-11-22] MEDS ORDERED: ALPRAZOLAM 1 MG TAB PO ONE (17:00)
[2016-11-22] MEDS: ATORVASTATIN 40 MG TAB PO SCH (20:22)
[2016-11-22] MEDS: INSULIN GLARGINE [LANtus] 3 ML PEN SC SCH (20:39)
--- NOTE | 2016-11-22 21:03 | CONS ---
CORONA HOLLIS NP 11/22/16 2103: Date/Time of Note Date/Time of Note DATE: 11/22/16 TIME: 21:03 Assessment/Plan Assessment/Plan Chief Complaint/Hosp Course assessment/impression: - skin and soft tissue infection of LLE with eschar. CT was negative for osteomyelitis - pain of LLE likely multifactorial: skin and soft tissue infection, PVD, lymphadenitis - PVD - s/p bypass of LLE - DM - Hgb A1c 8.8% - h/o OM of b/l feet, s/p amputation of R two toes - diabetic neuropathy - ESRD on HD 3 times a week, now via LUE AVF - s/p R chest wall permacath removal 11/17/2016 - Acute on chronic anemia of chronic disease requiring blood transfusion - CHF and CAD - s/p orthopedic procedures to RUE with metal prosthetic after bone Fx - dry skin and pruritis, which started prior to admission - possible red man syndrome due to vancomycin - neck pain, upper back pain and shoulder pain - C-Spine x-ray showed no acute process; MRI without contrast reviewed - morbid obesity - BMI 39.7 recommendations: - continue renally dosed vancomycin (11/13/2016-) with premedication protocol: benadryl and tylenol 30 min prior to infusion, and extended infusion time of 2 hrs. Suggested end date 11/23/2016 and then reassess. It was explained that pain is likely due to her vascular insufficiency and may not readily resolve. - keep LEs elevated to decrease lymphedema - check ESR (ordered to be done in AM) - blood cultures x 2 sets (15 min apart- ordered to be done with AM labs) to r/ o bacteremia in lieu of new findings of non-contrast MRI - we recommend repeat MRI with IV contrast to r/o diskitis/osteomyelitis if okay with Nephrology. Management d/w patient, PRO Betancourt, and Dr. Thrasher Problems: Consultation Date/Type/Reason Admit Date/Time Nov 13, 2016 at 18:46 Initial Consult Date 11/14/16 Type of Consultation: Infectious Disease Referring Provider: VIOLET RUDOLPH 24 HR Interval Summary Free Text/Dictation Posterior neck/upper back/bilateral shoulder pain remains unchanged and severe. Denies n/v/d. MRI C-Spine without contrast yesterday with "significantly limited evaluation...with associated motion artifact" and concern for diskitis/ osteomyelitis. Exam/Review of Systems Vital Signs Vitals Vital Signs Date Time Temp Pulse Resp B/P Pulse Ox O2 Delivery O2 Flow Rate FiO2 11/22/16 20:12 98.1 92 18 183/82 96 11/18/16 20:00 Room Air Intake and Output 11/21/16 11/21/16 11/22/16 15:00 23:00 07:00 Intake Total 1440 ml 1240 ml Balance 1440 ml 1240 ml Exam Constitutional: alert, obese, oriented, well developed, other (sitting at side of bed in NAD) Head: atraumatic, normocephalic Eyes: nl conjunctiva, nl sclera ENMT: nl external ears & nose Neck: supple Respiratory: clear to auscultation Cardiovascular: edema, regular rate and rhythm Gastrointestinal: non-tender, other (obese), soft Musculoskeletal: other (TTP posterior lower neck, bilateral shoulder blades, mid upper back) Extremities: other (LUE AV fistula +bruit/thrill) Neurological: nl mental status Skin: rash or lesions (Small eschar on LLE with surrounding improved erythema; TTP) ENMT: mucosa pink and moist Results Result Diagram: 11/22/16 0552 11/22/16 0552 Results 24 hrs Laboratory Tests Test 11/22/16 02:41 11/22/16 05:52 11/22/16 08:17 11/22/16 12:29 Bedside Glucose 146 193 172 White Blood Count 4.0 L Red Blood Count 2.64 L Hemoglobin 8.4 L Hematocrit 26.7 L Mean Corpuscular Volume 101.1 H Mean Corpuscular Hemoglobin 31.8 Mean Corpuscular Hemoglobin Concent 31.5 L Red Cell Distribution Width 15.9 H Platelet Count 193 Mean Platelet Volume 11.4 H Neutrophils % 48.9 Lymphocytes % 33.3 Monocytes % 14.6 H Eosinophils % 2.7 Basophils % 0.5 Nucleated Red Blood Cells % 0.0 Neutrophils # (Manual) 2 Lymphocytes # 1.3 Monocytes # 0.6 Eosinophils # 0.1 Basophils # 0.0 Nucleated Red Blood Cells # 0.0 Sodium Level 132 L Potassium Level 4.8 Chloride Level 94 L Carbon Dioxide Level 26 Anion Gap 17 H Blood Urea Nitrogen 61 H Creatinine 5.94 H Glucose Level 159 Calcium Level 8.1 L Test 11/22/16 17:56 11/22/16 20:21 Bedside Glucose 241 H 171 Medications Medications Current Medications Alprazolam (Xanax) 0.25 mg TID PRN PO ANXIETY Last administered on 11/20/16 12 :21; Admin Dose 0.25 MG; Start 11/13/16 at 21:30 Amlodipine Besylate (Norvasc) 10 mg DAILY PO Last administered on 11/22/16 13: 52; Admin Dose 10 MG; Start 11/14/16 at 09:00 Aspirin (Halfprin) 81 mg DAILY PO Last administered on 11/22/16 08:33; Admin Dose 81 MG; Start 11/14/16 at 09:00 Atorvastatin Calcium (Lipitor) 40 mg QHS PO Last administered on 11/22/16 20: 22; Admin Dose 40 MG; Start 11/14/16 at 21:00 Carvedilol (Coreg) 6.25 mg DAILY PO Last administered on 11/22/16 13:53; Admin Dose 6.25 MG; Start 11/14/16 at 09:00 Clonidine (Catapres) 0.2 mg TID PRN PO SBP>170; Start 11/13/16 at 21:30 Clopidogrel Bisulfate (plaVIX) 75 mg DAILY PO Last administered on 11/22/16 08 :33; Admin Dose 75 MG; Start 11/14/16 at 09:00 Docusate Sodium (Colace) 100 mg BID PO Last administered on 11/22/16 20:22; Admin Dose 100 MG; Start 11/14/16 at 09:00 Folic Acid (Folic Acid) 1 mg DAILY PO Last administered on 11/22/16 08:33; Admin Dose 1 MG; Start 11/14/16 at 09:00 Gabapentin (Neurontin) 300 mg BID PO Last administered on 11/22/16 20:22; Admin Dose 300 MG; Start 11/14/16 at 09:00 Losartan Potassium (Cozaar) 50 mg DAILY PO Last administered on 11/22/16 13:53 ; Admin Dose 50 MG; Start 11/14/16 at 09:00 Multivit/Ca Carb/ B Cmplx/FA/Prenat (Addie-Mikayla) 1 tab DAILY PO Last administered on 11/22/16 08:33; Admin Dose 1 TAB; Start 11/14/16 at 09:00 Morphine Sulfate (morphine) 2 mg Q6H PRN IV PAIN LEVEL 7-10 Last administered on 11/22/16 20:19; Admin Dose 2 MG; Start 11/13/16 at 21:30 Acetaminophen (Tylenol Tab) 650 mg Q6H PRN PO ELEVATED TEMPERATURE Last administered on 11/21/16 12:09; Admin Dose 650 MG; Start 11/13/16 at 21:30 Miscellaneous Information 1 ea NOTE XX ; Start 11/13/16 at 22:00 Glucose (Glutose) 15 gm Q15M PRN PO DECREASED GLUCOSE; Start 11/13/16 at 22:00 Glucose (Glutose) 22.5 gm Q15M PRN PO DECREASED GLUCOSE; Start 11/13/16 at 22: 00 Dextrose (D50w Syringe) 25 ml Q15M PRN IV DECREASED GLUCOSE; Start 11/13/16 at 22:00 Dextrose (D50w Syringe) 50 ml Q15M PRN IV DECREASED GLUCOSE; Start 11/13/16 at 22:00 Glucagon (Glucagen) 1 mg Q15M PRN IM DECREASED GLUCOSE; Start 11/13/16 at 22:00 Glucose (Glutose) 15 gm Q15M PRN BUCCAL DECREASED GLUCOSE; Start 11/13/16 at 22 :00 Diagnostic Test (Pha) (Accu-Chek) 1 ea 02 XX ; Start 11/14/16 at 02:00 Acetaminophen/ Hydrocodone Bitart ([place] (5/325)) 1 tab Q4H PRN PO PAIN LEVEL 4 -6 Last administered on 11/20/16 14:52; Admin Dose 1 TAB; Start 11/14/16 at 13: 00 Linagliptin (Tradjenta) 5 mg DAILY PO Last administered on 11/22/16 08:33; Admin Dose 5 MG; Start 11/14/16 at 12:30 Acetaminophen 325 mg 325 mg TuThSa PO ; Start 11/15/16 at 15:30 Sodium Chloride (NS) 1,000 ml @ 0 mls/hr Q0M PRN IV TO KEEP SBP ABOVE 90; Start 11/14/16 at 16:54 Diphenhydramine HCl (Benadryl) 50 mg Q8 PO Last administered on 11/22/16 15:44 ; Admin Dose 50 MG; Start 11/15/16 at 14:00 Bacitracin (Bacitracin 0.5%/ Zinc Oint) 1 applic BID TOP Last administered on 20:23; Admin Dose 1 APPLIC; Start 11/15/16 at 21:00 Cyclobenzaprine HCl (Flexeril) 5 mg Q6 PO Last administered on 11/22/16 17:54 ; Admin Dose 5 MG; Start 11/16/16 at 18:00 Multi-Ingredient Ointment 1 applic 1 applic BID TOP Last administered on 20:24; Admin Dose 1 APPLIC; Start 11/17/16 at 08:49 Vancomycin HCl (Vancocin) 250 ml @ 125 mls/hr Q96H IVPB Last administered on 22:25; Admin Dose 125 MLS/HR; Start 11/19/16 at 22:00 Alprazolam (Xanax) 0.25 mg Q8H PRN PO ANXIETY Last administered on 11/21/16 17 :50; Admin Dose 0.25 MG; Start 11/21/16 at 18:00 Acetaminophen (Tylenol Tab) 325 mg Q96H PO ; Start 11/23/16 at 21:30 Diphenhydramine HCl (Benadryl) 25 mg Q96H PO ; Start 11/23/16 at 21:30 Insulin Glargine (Lantus) 25 unit DAILY@20 SC Last administered on 11/22/16 20 :39; Admin Dose 25 UNIT; Start 11/22/16 at 20:00 Procedures Procedures MRI C-spine 11/22/2016: 1. Significantly limited evaluation due to sagittal T2/STIR sequences with associated motion artifact. 2. Prevertebral soft tissue swelling anterior to the C5-6 and C6-7 levels, incompletely evaluated. This may be related to inflammation of the prevertebral soft tissues such as pharyngitis, however there is a trace amount of fluid in the disc-space at C5-6. Concern for diskitis/osteomyelitis is raised. Repeat MRI with and without contrast is recommended for further evaluation. ALEXANDER MARTÍNEZ M.D. 11/23/166: Assessment/Plan Assessment/Plan Additional Assessment/Plan [place]ney attestation: I discussed the management with ROBERT oHllis and agree with above Exam/Review of Systems Results Result Diagram: 8/19/17 0552 11/22/16 0552 CORONA HOLLIS NP Nov 22, 2016 21:03 ALEXANDER MARTÍNEZ M.D. Nov 23, 2016 21:26
[2016-11-23 00:13] VITALS: BP 135/72
[2016-11-23] MEDS: ACCU-CHEK XX SCH (02:00)
[2016-11-23 03:33] VITALS: BP 150/72; RESP 20
[2016-11-23] MEDS: morphine 2 MG INJ IV PRN ×3 (04:12→18:57)
[2016-11-23] MEDS: DIPHENHYDRAMINE 50 MG CAP PO SCH ×3 (06:18→22:00)
[2016-11-23] MEDS: CYCLOBENZAPRINE 10 MG TAB PO SCH ×3 (06:18→18:56)
[2016-11-23 06:19] VITALS: BP 162/71; PULSE 70
[2016-11-23] MEDS: FUROSEMIDE 40 MG TAB PO SCH ×2 (06:19→18:56)
[2016-11-23 07:56] VITALS: BP 148/67; RESP 20
[2016-11-23] MEDS: PANTOPRAZOLE (EC) 40 MG TAB PO SCH (08:19)
[2016-11-23] MEDS: LINAGLIPTIN 5 MG TABLET PO SCH (08:19)
[2016-11-23] MEDS: AMLODIPINE 10 MG TAB PO SCH (08:19)
[2016-11-23] MEDS: SEVELAMER CARBONATE 0.8 GM PKT PO SCH ×3 (08:19→18:57)
[2016-11-23] MEDS: CLOPIDOGREL 75 MG TAB PO SCH (08:19)
[2016-11-23] MEDS: MULTIVIT/CA CARB/B CMPLX/FA TAB PO SCH (08:19)
[2016-11-23] MEDS: LOSARTAN 50 MG TAB PO SCH (08:20)
[2016-11-23] MEDS: FOLIC ACID 1 MG TAB PO SCH (08:20)
[2016-11-23] MEDS: DOCUSATE SODIUM 100 MG CAP PO SCH ×2 (08:20→20:49)
[2016-11-23] MEDS: GABAPENTIN 300 MG CAP PO SCH ×2 (08:20→20:49)
[2016-11-23] MEDS: BACITRACIN 0.5%/ZINC 28.35 GM OINT TOP SCH ×2 (08:20→20:49)
[2016-11-23] MEDS: ASPIRIN (EC) 81 MG TAB PO SCH (08:20)
[2016-11-23] MEDS: EUCERIN 113 GM CR TOP SCH ×2 (08:21→20:50)
[2016-11-23] MEDS: INSULIN ASPART [NOVOLOG] 3 ML PEN SC SCH ×7 (08:24→20:51)
--- NOTE | 2016-11-23 10:56 | PN ---
Date/Time of Note Date/Time of Note DATE: 11/23/16 TIME: 10:55 Assessment/Plan VTE Prophylaxis VTE Prophylaxis Intervention: other Lines/Catheters IV Catheter Type (from Nrs): Saline Lock Urinary Cath still in place: No Assessment/Plan Chief Complaint/Hosp Course -Neck pain, cervical x-rays negative, pending MRI of the cervical spine without contrast. -Left lower extremity cellulitis, Dr. Rice is following infection disease consultation, continue antibiotics per ID. -Severe PVD, with multiple vascular intervention including a left lower extremity bypass. Dr. Ruano is following an vascular surgery. -Hemodialysis dependent end-stage renal disease, Dr. Garcia is following in nephrology consultation, continue hemodialysis. -Diabetes mellitus type 2, continue Tradjenta Lantus and NovoLog -S/p orthopedic procedures to RUE with metal prosthetic after bone Fx Problems: Subjective 24 Hr Interval Summary Free Text/Dictation Patient complaints of pain when swallowing, had MRI yesterday but was only able to it partially Exam/Review of Systems Vital Signs Vitals Vital Signs Date Time Temp Pulse Resp B/P Pulse Ox O2 Delivery O2 Flow Rate FiO2 11/23/16 07:56 98.7 72 20 148/67 94 Intake and Output 11/22/16 11/22/16 11/23/16 15:00 23:00 07:00 Intake Total 500 ml 720 ml 1100 ml Output Total 2500 ml Balance -2000 ml 720 ml 1100 ml Exam Constitutional: well developed Head: atraumatic, normocephalic Neck: supple Respiratory: clear to auscultation Cardiovascular: regular rate and rhythm Gastrointestinal: non-tender, soft Extremities: normal pulses Results Result Diagram: 11/22/16 0552 11/22/16 0552 Results 24 hrs Laboratory Tests Test 11/22/16 12:29 11/22/16 17:56 11/22/16 20:21 11/23/16 05:06 Bedside Glucose 172 241 H 171 Erythrocyte Sedimentation Rate 92 H Test 11/23/16 08:15 Bedside Glucose 161 Medications Medications Current Medications Alprazolam (Xanax) 0.25 mg TID PRN PO ANXIETY Last administered on 11/20/16 12 :21; Admin Dose 0.25 MG; Start 11/13/16 at 21:30 Amlodipine Besylate (Norvasc) 10 mg DAILY PO Last administered on 11/23/16 08: 19; Admin Dose 10 MG; Start 11/14/16 at 09:00 Aspirin (Halfprin) 81 mg DAILY PO Last administered on 11/23/16 08:20; Admin Dose 81 MG; Start 11/14/16 at 09:00 Atorvastatin Calcium (Lipitor) 40 mg QHS PO Last administered on 11/22/16 20: 22; Admin Dose 40 MG; Start 11/14/16 at 21:00 Carvedilol (Coreg) 6.25 mg DAILY PO Last administered on 11/23/16 08:20; Admin Dose 6.25 MG; Start 11/14/16 at 09:00 Clonidine (Catapres) 0.2 mg TID PRN PO SBP>170; Start 11/13/16 at 21:30 Clopidogrel Bisulfate (plaVIX) 75 mg DAILY PO Last administered on 11/23/16 08 :19; Admin Dose 75 MG; Start 11/14/16 at 09:00 Docusate Sodium (Colace) 100 mg BID PO Last administered on 11/23/16 08:20; Admin Dose 100 MG; Start 11/14/16 at 09:00 Folic Acid (Folic Acid) 1 mg DAILY PO Last administered on 11/23/16 08:20; Admin Dose 1 MG; Start 11/14/16 at 09:00 Gabapentin (Neurontin) 300 mg BID PO Last administered on 11/23/16 08:20; Admin Dose 300 MG; Start 11/14/16 at 09:00 Losartan Potassium (Cozaar) 50 mg DAILY PO Last administered on 11/23/16 08:20 ; Admin Dose 50 MG; Start 11/14/16 at 09:00 Multivit/Ca Carb/ B Cmplx/FA/Prenat (Addie-Mikayla) 1 tab DAILY PO Last administered on 11/23/16 08:19; Admin Dose 1 TAB; Start 11/14/16 at 09:00 Morphine Sulfate (morphine) 2 mg Q6H PRN IV PAIN LEVEL 7-10 Last administered on 11/23/16 04:12; Admin Dose 2 MG; Start 11/13/16 at 21:30 Acetaminophen (Tylenol Tab) 650 mg Q6H PRN PO ELEVATED TEMPERATURE Last administered on 11/21/16 12:09; Admin Dose 650 MG; Start 11/13/16 at 21:30 Miscellaneous Information 1 ea NOTE XX ; Start 11/13/16 at 22:00 Glucose (Glutose) 15 gm Q15M PRN PO DECREASED GLUCOSE; Start 11/13/16 at 22:00 Glucose (Glutose) 22.5 gm Q15M PRN PO DECREASED GLUCOSE; Start 11/13/16 at 22: 00 Dextrose (D50w Syringe) 25 ml Q15M PRN IV DECREASED GLUCOSE; Start 11/13/16 at 22:00 Dextrose (D50w Syringe) 50 ml Q15M PRN IV DECREASED GLUCOSE; Start 11/13/16 at 22:00 Glucagon (Glucagen) 1 mg Q15M PRN IM DECREASED GLUCOSE; Start 11/13/16 at 22:00 Glucose (Glutose) 15 gm Q15M PRN BUCCAL DECREASED GLUCOSE; Start 11/13/16 at 22 :00 Diagnostic Test (Pha) (Accu-Chek) 1 ea 02 XX ; Start 11/14/16 at 02:00 Acetaminophen/ Hydrocodone Bitart ([place] (5/325)) 1 tab Q4H PRN PO PAIN LEVEL 4 -6 Last administered on 11/20/16 14:52; Admin Dose 1 TAB; Start 11/14/16 at 13: 00 Linagliptin (Tradjenta) 5 mg DAILY PO Last administered on 11/23/16 08:19; Admin Dose 5 MG; Start 11/14/16 at 12:30 Acetaminophen 325 mg 325 mg TuThSa PO ; Start 11/15/16 at 15:30 Sodium Chloride (NS) 1,000 ml @ 0 mls/hr Q0M PRN IV TO KEEP SBP ABOVE 90; Start 11/14/16 at 16:54 Diphenhydramine HCl (Benadryl) 50 mg Q8 PO Last administered on 11/23/16 06:18 ; Admin Dose 50 MG; Start 11/15/16 at 14:00 Bacitracin (Bacitracin 0.5%/ Zinc Oint) 1 applic BID TOP Last administered on 08:20; Admin Dose 1 APPLIC; Start 11/15/16 at 21:00 Cyclobenzaprine HCl (Flexeril) 5 mg Q6 PO Last administered on 11/23/16 06:18 ; Admin Dose 5 MG; Start 11/16/16 at 18:00 Multi-Ingredient Ointment 1 applic 1 applic BID TOP Last administered on 08:21; Admin Dose 1 APPLIC; Start 11/17/16 at 08:49 Vancomycin HCl (Vancocin) 250 ml @ 125 mls/hr Q96H IVPB Last administered on 22:25; Admin Dose 125 MLS/HR; Start 11/19/16 at 22:00 Alprazolam (Xanax) 0.25 mg Q8H PRN PO ANXIETY Last administered on 11/21/16 17 :50; Admin Dose 0.25 MG; Start 11/21/16 at 18:00 Acetaminophen (Tylenol Tab) 325 mg Q96H PO ; Start 11/23/16 at 21:30 Diphenhydramine HCl (Benadryl) 25 mg Q96H PO ; Start 11/23/16 at 21:30 Insulin Glargine (Lantus) 25 unit DAILY@20 SC Last administered on 11/22/16 20 :39; Admin Dose 25 UNIT; Start 11/22/16 at 20:00 CARYL PANTOJA Nov 23, 2016 10:56
[2016-11-23] MEDS ORDERED: LORAZEPAM 2 MG INJ IV ONE (14:30)
--- NOTE | 2016-11-23 16:43 | RADRPT ---
PROCEDURE: MR Cervical Spine with and without contrast. CLINICAL INDICATION: Cervical pain. Evaluate for possible diskitis or inflammatory process. TECHNIQUE: An MRI of the cervical spine was performed on a 1.5 deepthi scanner utilizing the follow ing sequences: Pre and postcontrast sagittal and axial T1 weighted, sagittal and axial T2 weighted, and sagittal T2 weighted with fat saturation. were given intravenously without complication. COMPARISON: MR cervical spine 11/22/2016 FINDINGS:. The study is extremely limited due to patient motion . Again noted is signal hyperintensity on sagi ttal T2 and STIR sequences in the prevertebral soft tissues from C4-C7. Postcontrast axial imaging d emonstrates corresponding prevertebral soft tissue enhancement in this region. This is nonspecific and does not appear to involve the intervertebral discs or vertebral bodies although the study is ex tremely limited due to patient motion and image degradation. CT soft tissue neck may be considered for evaluation of the retropharyngeal soft tissue is of. There is marked straightening of the cervical spine with multilevel degenerative disk and spondyliti c changes greatest at C5-C6 and C6-C7 levels with anterior endplate spurring. There appears to be a at least mild to moderate central canal stenosis from C3-C4 through C6-C7. The cervical spinal cord appears grossly normal in signal and caliber without syringohydromyelia or abnormal postcontrast enhancement. The vertebral bodies are normal in height and signal intensity. The cervical cord is normal in candy david and signal intensity. The craniocervical junction is unremarkable. IMPRESSION: 1. Redemonstration of prevertebral soft tissue signal hyperintensity from approximately C4-C7 withou t demonstrable evidence of postcontrast enhancement involving the vertebrae or intervertebral discs to suggest diskitis or osteomyelitis. Contrast-enhanced CT neck is recommended to assess for retroph aryngeal infectious or inflammatory process. 2. Multilevel degenerative discogenic changes and spondylosis/enthesopathy resulting in central moshe l stenosis from C3-C7. The study is extremely limited due to patient motion and image degradation. 3. Normal cervical spinal cord. RPTAT:AAJJ Aylin Painter Physician Date Time Electronically viewed and signed by Physician Raghavendra on 11/23/2016 16:43 EMILIE/
[2016-11-23 19:44] VITALS: BP 149/67; RESP 19
--- NOTE | 2016-11-23 20:17 | CONS ---
Date/Time of Note Date/Time of Note DATE: 11/23/16 TIME: 20:16 Assessment/Plan Assessment/Plan Chief Complaint/Hosp Course hief Complaint/Hosp Course 1. Left lower extremity cellulitis 2. ESRD. 3. Severe peripheral vascular disease with left lower extremity ischemia, status post angiogram intervention. 4. Peripheral neuropathy. 5. Depression. 6. Anemia of chronic disease. 7. Hypertension, controlled. 8. DM type II uncontrolled Problems: Additional Assessment/Plan 1. continue current regime 2 HD T/T/S Problems: Consultation Date/Type/Reason Admit Date/Time Nov 13, 2016 at 18:46 Initial Consult Date 11/14/16 Type of Consultation: Nephrology Referring Provider: VIOLET RUDOLPH 24 HR Interval Summary Free Text/Dictation No chest pain/sob Exam/Review of Systems Vital Signs Vitals Vital Signs Date Time Temp Pulse Resp B/P Pulse Ox O2 Delivery O2 Flow Rate FiO2 11/23/16 19:44 99.2 76 19 149/67 95 Intake and Output 11/22/16 11/22/16 11/23/16 15:00 23:00 07:00 Intake Total 500 ml 720 ml 1100 ml Output Total 2500 ml Balance -2000 ml 720 ml 1100 ml Exam onstitutional: well developed Head: atraumatic, normocephalic Neck: supple Respiratory: clear to auscultation Cardiovascular: regular rate and rhythm Gastrointestinal: non-tender, soft ext : LLE black eschar with cekllulitis Results Result Diagram: 11/22/16 0552 11/22/16 0552 Results 24 hrs Laboratory Tests Test 11/22/16 20:21 11/23/16 05:06 11/23/16 08:15 11/23/16 12:06 Bedside Glucose 171 161 104 Erythrocyte Sedimentation Rate 92 H Test 11/23/16 18:55 Bedside Glucose 97 Medications Medications Current Medications Alprazolam (Xanax) 0.25 mg TID PRN PO ANXIETY Last administered on 11/20/16 12 :21; Admin Dose 0.25 MG; Start 11/13/16 at 21:30 Amlodipine Besylate (Norvasc) 10 mg DAILY PO Last administered on 11/23/16 08: 19; Admin Dose 10 MG; Start 11/14/16 at 09:00 Aspirin (Halfprin) 81 mg DAILY PO Last administered on 11/23/16 08:20; Admin Dose 81 MG; Start 11/14/16 at 09:00 Atorvastatin Calcium (Lipitor) 40 mg QHS PO Last administered on 11/22/16 20: 22; Admin Dose 40 MG; Start 11/14/16 at 21:00 Carvedilol (Coreg) 6.25 mg DAILY PO Last administered on 11/23/16 08:20; Admin Dose 6.25 MG; Start 11/14/16 at 09:00 Clonidine (Catapres) 0.2 mg TID PRN PO SBP>170; Start 11/13/16 at 21:30 Clopidogrel Bisulfate (plaVIX) 75 mg DAILY PO Last administered on 11/23/16 08 :19; Admin Dose 75 MG; Start 11/14/16 at 09:00 Docusate Sodium (Colace) 100 mg BID PO Last administered on 11/23/16 08:20; Admin Dose 100 MG; Start 11/14/16 at 09:00 Folic Acid (Folic Acid) 1 mg DAILY PO Last administered on 11/23/16 08:20; Admin Dose 1 MG; Start 11/14/16 at 09:00 Gabapentin (Neurontin) 300 mg BID PO Last administered on 11/23/16 08:20; Admin Dose 300 MG; Start 11/14/16 at 09:00 Losartan Potassium (Cozaar) 50 mg DAILY PO Last administered on 11/23/16 08:20 ; Admin Dose 50 MG; Start 11/14/16 at 09:00 Multivit/Ca Carb/ B Cmplx/FA/Prenat (Addie-Mikayla) 1 tab DAILY PO Last administered on 11/23/16 08:19; Admin Dose 1 TAB; Start 11/14/16 at 09:00 Morphine Sulfate (morphine) 2 mg Q6H PRN IV PAIN LEVEL 7-10 Last administered on 11/23/16 18:57; Admin Dose 2 MG; Start 11/13/16 at 21:30 Acetaminophen (Tylenol Tab) 650 mg Q6H PRN PO ELEVATED TEMPERATURE Last administered on 11/21/16 12:09; Admin Dose 650 MG; Start 11/13/16 at 21:30 Miscellaneous Information 1 ea NOTE XX ; Start 11/13/16 at 22:00 Glucose (Glutose) 15 gm Q15M PRN PO DECREASED GLUCOSE; Start 11/13/16 at 22:00 Glucose (Glutose) 22.5 gm Q15M PRN PO DECREASED GLUCOSE; Start 11/13/16 at 22: 00 Dextrose (D50w Syringe) 25 ml Q15M PRN IV DECREASED GLUCOSE; Start 11/13/16 at 22:00 Dextrose (D50w Syringe) 50 ml Q15M PRN IV DECREASED GLUCOSE; Start 11/13/16 at 22:00 Glucagon (Glucagen) 1 mg Q15M PRN IM DECREASED GLUCOSE; Start 11/13/16 at 22:00 Glucose (Glutose) 15 gm Q15M PRN BUCCAL DECREASED GLUCOSE; Start 11/13/16 at 22 :00 Diagnostic Test (Pha) (Accu-Chek) 1 ea 02 XX ; Start 11/14/16 at 02:00 Acetaminophen/ Hydrocodone Bitart ([place] (5/325)) 1 tab Q4H PRN PO PAIN LEVEL 4 -6 Last administered on 11/20/16 14:52; Admin Dose 1 TAB; Start 11/14/16 at 13: 00 Linagliptin (Tradjenta) 5 mg DAILY PO Last administered on 11/23/16 08:19; Admin Dose 5 MG; Start 11/14/16 at 12:30 Acetaminophen 325 mg 325 mg TuThSa PO ; Start 11/15/16 at 15:30 Sodium Chloride (NS) 1,000 ml @ 0 mls/hr Q0M PRN IV TO KEEP SBP ABOVE 90; Start 11/14/16 at 16:54 Diphenhydramine HCl (Benadryl) 50 mg Q8 PO Last administered on 11/23/16 06:18 ; Admin Dose 50 MG; Start 11/15/16 at 14:00 Bacitracin (Bacitracin 0.5%/ Zinc Oint) 1 applic BID TOP Last administered on 08:20; Admin Dose 1 APPLIC; Start 11/15/16 at 21:00 Cyclobenzaprine HCl (Flexeril) 5 mg Q6 PO Last administered on 11/23/16 18:56 ; Admin Dose 5 MG; Start 11/16/16 at 18:00 Multi-Ingredient Ointment 1 applic 1 applic BID TOP Last administered on 08:21; Admin Dose 1 APPLIC; Start 11/17/16 at 08:49 Vancomycin HCl (Vancocin) 250 ml @ 125 mls/hr Q96H IVPB Last administered on 22:25; Admin Dose 125 MLS/HR; Start 11/19/16 at 22:00 Alprazolam (Xanax) 0.25 mg Q8H PRN PO ANXIETY Last administered on 11/21/16 17 :50; Admin Dose 0.25 MG; Start 11/21/16 at 18:00 Acetaminophen (Tylenol Tab) 325 mg Q96H PO ; Start 11/23/16 at 21:30 Diphenhydramine HCl (Benadryl) 25 mg Q96H PO ; Start 11/23/16 at 21:30 Insulin Glargine (Lantus) 25 unit DAILY@20 SC Last administered on 11/22/16 20 :39; Admin Dose 25 UNIT; Start 11/22/16 at 20:00 DARELL JAMES MD Nov 23, 2016 20:17
[2016-11-23] MEDS: ATORVASTATIN 40 MG TAB PO SCH (20:49)
[2016-11-23] MEDS: INSULIN GLARGINE [LANtus] 3 ML PEN SC SCH (20:54)
[2016-11-23] MEDS ORDERED: ACETAMINOPHEN 325 MG TAB PO SCH (21:30)
[2016-11-23] MEDS ORDERED: DIPHENHYDRAMINE 25 MG CAP PO SCH (21:30)
--- NOTE | 2016-11-23 21:37 | CONS ---
Date/Time of Note Date/Time of Note DATE: 11/23/16 TIME: 21:26 Assessment/Plan Assessment/Plan Chief Complaint/Hosp Course assessment/impression: - skin and soft tissue infection of LLE with eschar. CT was negative for osteomyelitis. Improved - chronically severe pain of LLE, likely multifactorial: skin and soft tissue infection, PVD, lymphadenitis - PVD - s/p bypass of LLE - DM - Hgb A1c 8.8% - h/o OM of b/l feet, s/p amputation of R two toes - diabetic neuropathy - ESRD on HD 3 times a week, now via LUE AVF - s/p R chest wall permacath removal 11/17/2016 - Acute on chronic anemia of chronic disease requiring blood transfusion - CHF and CAD - s/p orthopedic procedures to RUE with metal prosthetic after bone Fx - dry skin and pruritis, which started prior to admission, improved with a moisturizer - possible red man syndrome due to vancomycin; Pt tolerates it with premedication protocol (benadryl, tylenol) - neck pain, upper back pain and shoulder pain - C-Spine x-ray showed no acute process; MRI with and without contrast on 11/23/2016 showed prevertebral soft tissue signal hyperintensity from approximately C4-C7 without demonstrable evidence of postcontrast enhancement involving the vertebrae or intervertebral discs to suggest diskitis or osteomyelitis. Clinically, Pt's neck is supple. ESR =92 on 11/23/2016 - morbid obesity - BMI 39.7 recommendations: - pending results: blood cultures from 11/22/2016 - end renally dosed vancomycin (11/13/2016-) after the last dose tonight. It was explained that pain of b/l LEs is likely due to her vascular insufficiency and may not readily resolve. - keep LEs elevated to decrease lymphedema (Pt has not been compliant with this instruction, however) - consider evaluation by a digital imaging specialist re. pain in her C spine, inpatient or outpatient management d/w Pt and her RN Problems: Consultation Date/Type/Reason Admit Date/Time Nov 13, 2016 at 18:46 Initial Consult Date 11/14/16 Type of Consultation: ID Referring Provider: VIOLET RUDOLPH 24 HR Interval Summary Constitutional: improved Detailed Summary Eyes: no complaints ENT: no complaints Respiratory: no complaints Cardiovascular: no complaints Gastrointestinal: no complaints Genitourinary: other (anuric) Musculoskeletal: bone/joint pain (pain in C-spine), other (pain of b/l LEs, chronic), restricted range of motion Skin: erythema (b/l LEs, L>R, unchanged) Lymphatic: lymphadema (b/l LEs, unchanged), other (burst of pain of b/l LEs, rated 8) Exam/Review of Systems Vital Signs Vitals Vital Signs Date Time Temp Pulse Resp B/P Pulse Ox O2 Delivery O2 Flow Rate FiO2 11/23/16 19:44 99.2 76 19 149/67 95 Intake and Output 11/22/16 11/22/16 11/23/16 15:00 23:00 07:00 Intake Total 500 ml 720 ml 1100 ml Output Total 2500 ml Balance -2000 ml 720 ml 1100 ml Exam Constitutional: alert, oriented, well developed Psych: nl mood/affect, no complaints Head: atraumatic, normocephalic Eyes: nl conjunctiva, nl lids ENMT: nl external ears & nose, nl nasal mucosa & septum Neck: other (tendernes upon palpation), supple, No nuchal rigidity Musculoskeletal: nl extremities to inspection Extremities: edema Neurological: GYRO COMPASS TESTER II-XII intact, nl mental status, nl speech, other (sensation of b/l toes and feet is intact) Skin: rash or lesions (lymphadenitis of b/l LEs with eschar on LLE, non-TTP) Lymph: other (lymphadenitis of b/l LEs) Results Result Diagram: 11/22/16 0552 11/22/16 0552 Results 24 hrs Laboratory Tests Test 11/23/16 05:06 11/23/16 08:15 11/23/16 12:06 11/23/16 18:55 Erythrocyte Sedimentation Rate 92 H Bedside Glucose 161 104 97 Test 11/23/16 20:47 Bedside Glucose 78 Medications Medications Current Medications Alprazolam (Xanax) 0.25 mg TID PRN PO ANXIETY Last administered on 11/20/16 12 :21; Admin Dose 0.25 MG; Start 11/13/16 at 21:30 Amlodipine Besylate (Norvasc) 10 mg DAILY PO Last administered on 11/23/16 08: 19; Admin Dose 10 MG; Start 11/14/16 at 09:00 Aspirin (Halfprin) 81 mg DAILY PO Last administered on 11/23/16 08:20; Admin Dose 81 MG; Start 11/14/16 at 09:00 Atorvastatin Calcium (Lipitor) 40 mg QHS PO Last administered on 11/23/16 20: 49; Admin Dose 40 MG; Start 11/14/16 at 21:00 Carvedilol (Coreg) 6.25 mg DAILY PO Last administered on 11/23/16 08:20; Admin Dose 6.25 MG; Start 11/14/16 at 09:00 Clonidine (Catapres) 0.2 mg TID PRN PO SBP>170; Start 11/13/16 at 21:30 Clopidogrel Bisulfate (plaVIX) 75 mg DAILY PO Last administered on 11/23/16 08 :19; Admin Dose 75 MG; Start 11/14/16 at 09:00 Docusate Sodium (Colace) 100 mg BID PO Last administered on 11/23/16 20:49; Admin Dose 100 MG; Start 11/14/16 at 09:00 Folic Acid (Folic Acid) 1 mg DAILY PO Last administered on 11/23/16 08:20; Admin Dose 1 MG; Start 11/14/16 at 09:00 Gabapentin (Neurontin) 300 mg BID PO Last administered on 11/23/16 20:49; Admin Dose 300 MG; Start 11/14/16 at 09:00 Losartan Potassium (Cozaar) 50 mg DAILY PO Last administered on 11/23/16 08:20 ; Admin Dose 50 MG; Start 11/14/16 at 09:00 Multivit/Ca Carb/ B Cmplx/FA/Prenat (Addie-Mikayla) 1 tab DAILY PO Last administered on 11/23/16 08:19; Admin Dose 1 TAB; Start 11/14/16 at 09:00 Morphine Sulfate (morphine) 2 mg Q6H PRN IV PAIN LEVEL 7-10 Last administered on 11/23/16 18:57; Admin Dose 2 MG; Start 11/13/16 at 21:30 Acetaminophen (Tylenol Tab) 650 mg Q6H PRN PO ELEVATED TEMPERATURE Last administered on 11/21/16 12:09; Admin Dose 650 MG; Start 11/13/16 at 21:30 Miscellaneous Information 1 ea NOTE XX ; Start 11/13/16 at 22:00 Glucose (Glutose) 15 gm Q15M PRN PO DECREASED GLUCOSE; Start 11/13/16 at 22:00 Glucose (Glutose) 22.5 gm Q15M PRN PO DECREASED GLUCOSE; Start 11/13/16 at 22: 00 Dextrose (D50w Syringe) 25 ml Q15M PRN IV DECREASED GLUCOSE; Start 11/13/16 at 22:00 Dextrose (D50w Syringe) 50 ml Q15M PRN IV DECREASED GLUCOSE; Start 11/13/16 at 22:00 Glucagon (Glucagen) 1 mg Q15M PRN IM DECREASED GLUCOSE; Start 11/13/16 at 22:00 Glucose (Glutose) 15 gm Q15M PRN BUCCAL DECREASED GLUCOSE; Start 11/13/16 at 22 :00 Diagnostic Test (Pha) (Accu-Chek) 1 ea 02 XX ; Start 11/14/16 at 02:00 Acetaminophen/ Hydrocodone Bitart ([place] (5/325)) 1 tab Q4H PRN PO PAIN LEVEL 4 -6 Last administered on 11/20/16 14:52; Admin Dose 1 TAB; Start 11/14/16 at 13: 00 Linagliptin (Tradjenta) 5 mg DAILY PO Last administered on 11/23/16 08:19; Admin Dose 5 MG; Start 11/14/16 at 12:30 Acetaminophen 325 mg 325 mg TuThSa PO ; Start 11/15/16 at 15:30 Sodium Chloride (NS) 1,000 ml @ 0 mls/hr Q0M PRN IV TO KEEP SBP ABOVE 90; Start 11/14/16 at 16:54 Diphenhydramine HCl (Benadryl) 50 mg Q8 PO Last administered on 11/23/16 06:18 ; Admin Dose 50 MG; Start 11/15/16 at 14:00 Bacitracin (Bacitracin 0.5%/ Zinc Oint) 1 applic BID TOP Last administered on 20:49; Admin Dose 1 APPLIC; Start 11/15/16 at 21:00 Cyclobenzaprine HCl (Flexeril) 5 mg Q6 PO Last administered on 11/23/16 18:56 ; Admin Dose 5 MG; Start 11/16/16 at 18:00 Multi-Ingredient Ointment 1 applic 1 applic BID TOP Last administered on 20:50; Admin Dose 1 APPLIC; Start 11/17/16 at 08:49 Vancomycin HCl (Vancocin) 250 ml @ 125 mls/hr Q96H IVPB Last administered on 22:25; Admin Dose 125 MLS/HR; Start 11/19/16 at 22:00 Alprazolam (Xanax) 0.25 mg Q8H PRN PO ANXIETY Last administered on 11/21/16 17 :50; Admin Dose 0.25 MG; Start 11/21/16 at 18:00 Acetaminophen (Tylenol Tab) 325 mg Q96H PO ; Start 11/23/16 at 21:30 Diphenhydramine HCl (Benadryl) 25 mg Q96H PO ; Start 11/23/16 at 21:30 Insulin Glargine (Lantus) 25 unit DAILY@20 SC Last administered on 11/23/16 20 :54; Admin Dose 25 UNIT; Start 11/22/16 at 20:00 ALEXANDER MARTÍNEZ M.D. Nov 23, 2016 21:37
[2016-11-23] MEDS: VANCOMYCIN 1 GM in NS 250 ML IVPB SCH (22:18)
[2016-11-24] VITALS (7 sets, daily range): BP systolic 148–199; BP diastolic 55–83; PULSE 85–88; RESP 18–20
[2016-11-24] MEDS: ACCU-CHEK XX SCH (02:00)
[2016-11-24] MEDS: DIPHENHYDRAMINE 50 MG CAP PO SCH ×3 (06:00→23:07)
[2016-11-24] MEDS: CYCLOBENZAPRINE 10 MG TAB PO SCH ×5 (06:06→23:07)
[2016-11-24] MEDS: FUROSEMIDE 40 MG TAB PO SCH ×2 (06:08→17:41)
[2016-11-24] MEDS: morphine 2 MG INJ IV PRN ×3 (06:12→20:14)
[2016-11-24 07:00] LABS: BASOPHILS % 0.5 % (0.0-2.0); EOSINOPHILS # 0.1 10^3/ul (0.0-0.5); EOSINOPHILS % 3.3 % (0.0-7.0); HEMATOCRIT 27.4 % (37.0-47.0); HEMOGLOBIN 8.8 g/dl (12.0-16.0); LYMPHOCYTES # 1.1 10^3/ul (0.8-2.9); LYMPHOCYTES % 25.5 % (15.0-51.0); MEAN CORPUSCULAR HEMOGLOBIN 32.8 pg (29.0-33.0); MEAN CORPUSCULAR HGB CONC 32.1 g/dl (32.0-37.0); MEAN CORPUSCULAR VOLUME 102.2 fl (82.0-101.0); MEAN PLATELET VOLUME 11.4 fl (7.4-10.4); MONOCYTE # 0.5 10^3/ul (0.3-0.9); MONOCYTES % 11.3 % (0.0-11.0); NEUTROPHILS % 59.4 % (39.0-77.0); PLATELET COUNT 193 10^3/UL (140-415); RED BLOOD COUNT 2.68 10^6/ul (4.20-5.40); RED CELL DISTRIBUTION WIDTH 15.3 % (11.5-14.5); WHITE BLOOD COUNT 4.2 10^3/ul (4.8-10.8)
[2016-11-24 07:41] LABS: CALCIUM 8.8 mg/dl (8.4-10.2); CREATININE 5.89 mg/dl (0.44-1.00); POTASSIUM 5.4 mmol/L (3.5-5.1)
[2016-11-24] MEDS: INSULIN ASPART [NOVOLOG] 3 ML PEN SC SCH ×7 (07:54→20:39)
[2016-11-24] MEDS: DOCUSATE SODIUM 100 MG CAP PO SCH ×2 (08:47→20:18)
[2016-11-24] MEDS: GABAPENTIN 300 MG CAP PO SCH ×2 (08:47→20:17)
[2016-11-24] MEDS: SEVELAMER CARBONATE 0.8 GM PKT PO SCH ×3 (08:47→17:40)
[2016-11-24] MEDS: LOSARTAN 50 MG TAB PO SCH (08:47)
[2016-11-24] MEDS: ASPIRIN (EC) 81 MG TAB PO SCH (08:47)
[2016-11-24] MEDS: LINAGLIPTIN 5 MG TABLET PO SCH (08:47)
[2016-11-24] MEDS: AMLODIPINE 10 MG TAB PO SCH (08:47)
[2016-11-24] MEDS: CLOPIDOGREL 75 MG TAB PO SCH (08:47)
[2016-11-24] MEDS: MULTIVIT/CA CARB/B CMPLX/FA TAB PO SCH (08:47)
[2016-11-24] MEDS: BACITRACIN 0.5%/ZINC 28.35 GM OINT TOP SCH ×2 (08:48→20:18)
[2016-11-24] MEDS: EUCERIN 113 GM CR TOP SCH ×2 (08:48→20:19)
[2016-11-24] MEDS: FOLIC ACID 1 MG TAB PO SCH (08:48)
[2016-11-24] MEDS: PANTOPRAZOLE (EC) 40 MG TAB PO SCH (08:48)
--- NOTE | 2016-11-24 12:53 | CONS ---
Date/Time of Note Date/Time of Note DATE: 11/24/16 TIME: 12:51 Assessment/Plan Assessment/Plan Chief Complaint/Hosp Course Physcial exam Constitutional: well developed Head: atraumatic, normocephalic Neck: supple Respiratory: clear to auscultation Cardiovascular: regular rate and rhythm Gastrointestinal: non-tender, soft ext : LLE black eschar with cekllulitis 56 Y/O Chief Complaint/Hosp Course 1. Left lower extremity cellulitis 2. ESRD. 3. Severe peripheral vascular disease with left lower extremity ischemia, status post angiogram intervention. 4. Peripheral neuropathy. 5. Depression. 6. Anemia of chronic disease. 7. Hypertension, controlled. 8. DM type II uncontrolled Problems: Additional Assessment/Plan 1. continue current regime 2 HD T/T/S; HD tmw 3 Kayexlate today Problems: Consultation Date/Type/Reason Admit Date/Time Nov 13, 2016 at 18:46 Initial Consult Date 11/14/16 Type of Consultation: Nephrology Referring Provider: VIOLET RUDOLPH 24 HR Interval Summary Free Text/Dictation k 5.4 today; scheduled for HD tmw Exam/Review of Systems Vital Signs Vitals Vital Signs Date Time Temp Pulse Resp B/P Pulse Ox O2 Delivery O2 Flow Rate FiO2 11/24/16 07:21 98.2 81 18 158/69 92 Intake and Output 11/23/16 11/23/16 11/24/16 15:00 23:00 07:00 Intake Total 960 ml 1050 ml Balance 960 ml 1050 ml Results Result Diagram: 11/24/16 0524 11/24/16 0524 Results 24 hrs Laboratory Tests Test 11/23/16 18:55 11/23/16 20:47 11/24/16 05:24 11/24/16 07:52 Bedside Glucose 97 78 140 White Blood Count 4.2 L Red Blood Count 2.68 L Hemoglobin 8.8 L Hematocrit 27.4 L Mean Corpuscular Volume 102.2 H Mean Corpuscular Hemoglobin 32.8 Mean Corpuscular Hemoglobin Concent 32.1 Red Cell Distribution Width 15.3 H Platelet Count 193 Mean Platelet Volume 11.4 H Neutrophils % 59.4 Lymphocytes % 25.5 Monocytes % 11.3 H Eosinophils % 3.3 Basophils % 0.5 Nucleated Red Blood Cells % 0.0 Neutrophils # (Manual) 3 Lymphocytes # 1.1 Monocytes # 0.5 Eosinophils # 0.1 Basophils # 0.0 Nucleated Red Blood Cells # 0.0 Sodium Level 138 Potassium Level 5.4 H Chloride Level 96 L Carbon Dioxide Level 26 Anion Gap 21 H Blood Urea Nitrogen 60 H Creatinine 5.89 H Glucose Level 87 # Calcium Level 8.8 Test 11/24/16 12:23 Bedside Glucose 101 Medications Medications Current Medications Alprazolam (Xanax) 0.25 mg TID PRN PO ANXIETY Last administered on 11/20/16 12 :21; Admin Dose 0.25 MG; Start 11/13/16 at 21:30 Amlodipine Besylate (Norvasc) 10 mg DAILY PO Last administered on 11/24/16 08: 47; Admin Dose 10 MG; Start 11/14/16 at 09:00 Aspirin (Halfprin) 81 mg DAILY PO Last administered on 11/24/16 08:47; Admin Dose 81 MG; Start 11/14/16 at 09:00 Atorvastatin Calcium (Lipitor) 40 mg QHS PO Last administered on 11/23/16 20: 49; Admin Dose 40 MG; Start 11/14/16 at 21:00 Carvedilol (Coreg) 6.25 mg DAILY PO Last administered on 11/24/16 08:48; Admin Dose 6.25 MG; Start 11/14/16 at 09:00 Clonidine (Catapres) 0.2 mg TID PRN PO SBP>170; Start 11/13/16 at 21:30 Clopidogrel Bisulfate (plaVIX) 75 mg DAILY PO Last administered on 11/24/16 08 :47; Admin Dose 75 MG; Start 11/14/16 at 09:00 Docusate Sodium (Colace) 100 mg BID PO Last administered on 11/24/16 08:47; Admin Dose 100 MG; Start 11/14/16 at 09:00 Folic Acid (Folic Acid) 1 mg DAILY PO Last administered on 11/24/16 08:48; Admin Dose 1 MG; Start 11/14/16 at 09:00 Gabapentin (Neurontin) 300 mg BID PO Last administered on 11/24/16 08:47; Admin Dose 300 MG; Start 11/14/16 at 09:00 Losartan Potassium (Cozaar) 50 mg DAILY PO Last administered on 11/24/16 08:47 ; Admin Dose 50 MG; Start 11/14/16 at 09:00 Multivit/Ca Carb/ B Cmplx/FA/Prenat (Addie-Mikayla) 1 tab DAILY PO Last administered on 11/24/16 08:47; Admin Dose 1 TAB; Start 11/14/16 at 09:00 Morphine Sulfate (morphine) 2 mg Q6H PRN IV PAIN LEVEL 7-10 Last administered on 11/24/16 06:12; Admin Dose 2 MG; Start 11/13/16 at 21:30 Acetaminophen (Tylenol Tab) 650 mg Q6H PRN PO ELEVATED TEMPERATURE Last administered on 11/21/16 12:09; Admin Dose 650 MG; Start 11/13/16 at 21:30 Miscellaneous Information 1 ea NOTE XX ; Start 11/13/16 at 22:00 Glucose (Glutose) 15 gm Q15M PRN PO DECREASED GLUCOSE; Start 11/13/16 at 22:00 Glucose (Glutose) 22.5 gm Q15M PRN PO DECREASED GLUCOSE; Start 11/13/16 at 22: 00 Dextrose (D50w Syringe) 25 ml Q15M PRN IV DECREASED GLUCOSE; Start 11/13/16 at 22:00 Dextrose (D50w Syringe) 50 ml Q15M PRN IV DECREASED GLUCOSE; Start 11/13/16 at 22:00 Glucagon (Glucagen) 1 mg Q15M PRN IM DECREASED GLUCOSE; Start 11/13/16 at 22:00 Glucose (Glutose) 15 gm Q15M PRN BUCCAL DECREASED GLUCOSE; Start 11/13/16 at 22 :00 Diagnostic Test (Pha) (Accu-Chek) 1 ea 02 XX ; Start 11/14/16 at 02:00 Acetaminophen/ Hydrocodone Bitart ([place] (5/325)) 1 tab Q4H PRN PO PAIN LEVEL 4 -6 Last administered on 11/20/16 14:52; Admin Dose 1 TAB; Start 11/14/16 at 13: 00 Linagliptin (Tradjenta) 5 mg DAILY PO Last administered on 11/24/16 08:47; Admin Dose 5 MG; Start 11/14/16 at 12:30 Acetaminophen 325 mg 325 mg TuThSa PO ; Start 11/15/16 at 15:30 Sodium Chloride (NS) 1,000 ml @ 0 mls/hr Q0M PRN IV TO KEEP SBP ABOVE 90; Start 11/14/16 at 16:54 Diphenhydramine HCl (Benadryl) 50 mg Q8 PO Last administered on 11/23/16 06:18 ; Admin Dose 50 MG; Start 11/15/16 at 14:00 Bacitracin (Bacitracin 0.5%/ Zinc Oint) 1 applic BID TOP Last administered on 08:48; Admin Dose 1 APPLIC; Start 11/15/16 at 21:00 Cyclobenzaprine HCl (Flexeril) 5 mg Q6 PO Last administered on 11/24/16 06:06 ; Admin Dose 5 MG; Start 11/16/16 at 18:00 Multi-Ingredient Ointment (Eucerin Cream) 1 applic BID TOP Last administered on 11/24/16 08:48; Admin Dose 1 APPLIC; Start 11/17/16 at 08:49 Alprazolam (Xanax) 0.25 mg Q8H PRN PO ANXIETY Last administered on 11/21/16 17 :50; Admin Dose 0.25 MG; Start 11/21/16 at 18:00 Insulin Glargine (Lantus) 25 unit DAILY@20 SC Last administered on 11/23/16 20 :54; Admin Dose 25 UNIT; Start 11/22/16 at 20:00 Sodium Polystyrene Sulfonate (Kayexalate) 60 gm ONCE ONCE PO ; Start 11/24/16 at 13:00; Stop 11/24/16 at 13:01; Status DARELL MULLER MD Nov 24, 2016 12:53
[2016-11-24] MEDS ORDERED: NA POLYST SULFON 15 GM/60 ML BTL PO ONE (13:00)
[2016-11-24] MEDS: HYDROCODONE/APAP (5/325) TAB PO PRN (14:44)
[2016-11-24] MEDS: hydrALAzine 20 MG INJ IV PRN (18:27)
--- NOTE | 2016-11-24 18:49 | PN ---
Date/Time of Note Date/Time of Note DATE: 11/24/16 TIME: 18:47 Assessment/Plan VTE Prophylaxis VTE Prophylaxis Intervention: SCD's Lines/Catheters IV C[facility]ter Type (from [facility] Urinary Cath still in place: No Assessment/Plan Chief Complaint/Hosp Course Patient's continues to complain of neck pain, will order CT of the neck with contrast per radiology recommendations. Patient with hyperkalemia, status post Kayexalate. Assessment/Plan -Neck pain, cervical x-rays negative, MRI of the cervical spine demonstrates prevertebral soft tissue signal hyperintensity from approximately C4-C7. -Left lower extremity cellulitis, Dr. Rice is following infection disease consultation, continue antibiotics per ID. -Severe PVD, with multiple vascular intervention including a left lower extremity bypass. Dr. Ruano is following an vascular surgery. -Hemodialysis dependent end-stage renal disease, Dr. Garcia is following in nephrology consultation, continue hemodialysis. -Diabetes mellitus type 2, continue Tradjenta Lantus and NovoLog -S/p orthopedic procedures to RUE with metal prosthetic after bone Fx Further recommendations based on clinical course. Plan of care discussed with Dr. Cordero. Problems: Exam/Review of Systems Vital Signs Vitals Vital Signs Date Time Temp Pulse Resp B/P Pulse Ox O2 Delivery O2 Flow Rate FiO2 11/24/16 18:00 85 188/79 11/24/16 16:24 20 11/24/16 14:28 98.3 98 Intake and Output 11/23/16 11/23/16 11/24/16 15:00 23:00 07:00 Intake Total 960 ml 1050 ml Balance 960 ml 1050 ml Exam Constitutional: alert, oriented Neck: supple Respiratory: clear to auscultation Cardiovascular: nl pulses Gastrointestinal: non-tender, soft Musculoskeletal: nl extremities to inspection Extremities: normal pulses Neurological: nl mental status Skin: other (LLE wound with eschar) Results Result Diagram: 11/24/1624 11/24/16 0524 Results 24 hrs Laboratory Tests Test 11/23/16 18:55 11/23/16 20:47 11/24/16 05:24 11/24/16 07:52 Bedside Glucose 97 78 140 White Blood Count 4.2 L Red Blood Count 2.68 L Hemoglobin 8.8 L Hematocrit 27.4 L Mean Corpuscular Volume 102.2 H Mean Corpuscular Hemoglobin 32.8 Mean Corpuscular Hemoglobin Concent 32.1 Red Cell Distribution Width 15.3 H Platelet Count 193 Mean Platelet Volume 11.4 H Neutrophils % 59.4 Lymphocytes % 25.5 Monocytes % 11.3 H Eosinophils % 3.3 Basophils % 0.5 Nucleated Red Blood Cells % 0.0 Neutrophils # (Manual) 3 Lymphocytes # 1.1 Monocytes # 0.5 Eosinophils # 0.1 Basophils # 0.0 Nucleated Red Blood Cells # 0.0 Sodium Level 138 Potassium Level 5.4 H Chloride Level 96 L Carbon Dioxide Level 26 Anion Gap 21 H Blood Urea Nitrogen 60 H Creatinine 5.89 H Glucose Level 87 # Calcium Level 8.8 Test 11/24/16 12:23 11/24/16 17:32 Bedside Glucose 101 85 Medications Medications Current Medications Alprazolam (Xanax) 0.25 mg TID PRN PO ANXIETY Last administered on 11/20/16 12 :21; Admin Dose 0.25 MG; Start 11/13/16 at 21:30 Amlodipine Besylate (Norvasc) 10 mg DAILY PO Last administered on 11/24/16 08: 47; Admin Dose 10 MG; Start 11/14/16 at 09:00 Aspirin (Halfprin) 81 mg DAILY PO Last administered on 11/24/16 08:47; Admin Dose 81 MG; Start 11/14/16 at 09:00 Atorvastatin Calcium (Lipitor) 40 mg QHS PO Last administered on 11/23/16 20: 49; Admin Dose 40 MG; Start 11/14/16 at 21:00 Carvedilol (Coreg) 6.25 mg DAILY PO Last administered on 11/24/16 08:48; Admin Dose 6.25 MG; Start 11/14/16 at 09:00 Clonidine (Catapres) 0.2 mg TID PRN PO SBP>170 Last administered on 11/24/16 14:52; Admin Dose 0.2 MG; Start 11/13/16 at 21:30 Clopidogrel Bisulfate (plaVIX) 75 mg DAILY PO Last administered on 11/24/16 08 :47; Admin Dose 75 MG; Start 11/14/16 at 09:00 Docusate Sodium (Colace) 100 mg BID PO Last administered on 11/24/16 08:47; Admin Dose 100 MG; Start 11/14/16 at 09:00 Folic Acid (Folic Acid) 1 mg DAILY PO Last administered on 11/24/16 08:48; Admin Dose 1 MG; Start 11/14/16 at 09:00 Gabapentin (Neurontin) 300 mg BID PO Last administered on 11/24/16 08:47; Admin Dose 300 MG; Start 11/14/16 at 09:00 Losartan Potassium (Cozaar) 50 mg DAILY PO Last administered on 11/24/16 08:47 ; Admin Dose 50 MG; Start 11/14/16 at 09:00 Multivit/Ca Carb/ B Cmplx/FA/Prenat (Addie-Mikayla) 1 tab DAILY PO Last administered on 11/24/16 08:47; Admin Dose 1 TAB; Start 11/14/16 at 09:00 Morphine Sulfate (morphine) 2 mg Q6H PRN IV PAIN LEVEL 7-10 Last administered on 11/24/16 12:40; Admin Dose 2 MG; Start 11/13/16 at 21:30 Acetaminophen (Tylenol Tab) 650 mg Q6H PRN PO ELEVATED TEMPERATURE Last administered on 11/21/16 12:09; Admin Dose 650 MG; Start 11/13/16 at 21:30 Miscellaneous Information 1 ea NOTE XX ; Start 11/13/16 at 22:00 Glucose (Glutose) 15 gm Q15M PRN PO DECREASED GLUCOSE; Start 11/13/16 at 22:00 Glucose (Glutose) 22.5 gm Q15M PRN PO DECREASED GLUCOSE; Start 11/13/16 at 22: 00 Dextrose (D50w Syringe) 25 ml Q15M PRN IV DECREASED GLUCOSE; Start 11/13/16 at 22:00 Dextrose (D50w Syringe) 50 ml Q15M PRN IV DECREASED GLUCOSE; Start 11/13/16 at 22:00 Glucagon (Glucagen) 1 mg Q15M PRN IM DECREASED GLUCOSE; Start 11/13/16 at 22:00 Glucose (Glutose) 15 gm Q15M PRN BUCCAL DECREASED GLUCOSE; Start 11/13/16 at 22 :00 Diagnostic Test (Pha) (Accu-Chek) 1 ea 02 XX ; Start 11/14/16 at 02:00 Acetaminophen/ Hydrocodone Bitart ([place] (5/325)) 1 tab Q4H PRN PO PAIN LEVEL 4 -6 Last administered on 11/24/16 14:44; Admin Dose 1 TAB; Start 11/14/16 at 13: 00 Linagliptin (Tradjenta) 5 mg DAILY PO Last administered on 11/24/16 08:47; Admin Dose 5 MG; Start 11/14/16 at 12:30 Acetaminophen 325 mg 325 mg TuThSa PO ; Start 11/15/16 at 15:30 Sodium Chloride (NS) 1,000 ml @ 0 mls/hr Q0M PRN IV TO KEEP SBP ABOVE 90; Start 11/14/16 at 16:54 Diphenhydramine HCl (Benadryl) 50 mg Q8 PO Last administered on 11/24/16 14:44 ; Admin Dose 50 MG; Start 11/15/16 at 14:00 Bacitracin (Bacitracin 0.5%/ Zinc Oint) 1 applic BID TOP Last administered on 08:48; Admin Dose 1 APPLIC; Start 11/15/16 at 21:00 Cyclobenzaprine HCl (Flexeril) 5 mg Q6 PO Last administered on 11/24/16 17:40 ; Admin Dose 5 MG; Start 11/16/16 at 18:00 Multi-Ingredient Ointment (Eucerin Cream) 1 applic BID TOP Last administered on 11/24/16 08:48; Admin Dose 1 APPLIC; Start 11/17/16 at 08:49 Alprazolam (Xanax) 0.25 mg Q8H PRN PO ANXIETY Last administered on 11/21/16 17 :50; Admin Dose 0.25 MG; Start 11/21/16 at 18:00 Insulin Glargine (Lantus) 25 unit DAILY@20 SC Last administered on 11/23/16 20 :54; Admin Dose 25 UNIT; Start 11/22/16 at 20:00 Hydralazine HCl (Apresoline) 10 mg Q6H PRN IV ELEVATED SYSTOLIC BP Last administered on 11/24/16 18:27; Admin Dose 10 MG; Start 11/24/16 at 18:30 ANTHONY DUPREE Nov 24, 2016 18:49
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
[2016-11-24] MEDS: ATORVASTATIN 40 MG TAB PO SCH (20:17)
[2016-11-24] MEDS: INSULIN GLARGINE [LANtus] 3 ML PEN SC SCH (20:38)
[2016-11-24] MEDS: MINERAL OIL 30ML CUP PO SCH (23:07)
[2016-11-25] VITALS (11 sets, daily range): BP systolic 122–186; BP diastolic 54–88; PULSE 73–78; RESP 18–20
[2016-11-25] MEDS: ACCU-CHEK XX SCH (02:00)
[2016-11-25] MEDS: hydrALAzine 20 MG INJ IV PRN (02:24)
[2016-11-25] MEDS: morphine 2 MG INJ IV PRN ×3 (02:24→18:55)
[2016-11-25 05:45] LABS: ABNORMAL IP MESSAGE 1; BASOPHILS % 0.2 % (0.0-2.0); EOSINOPHILS # 0.2 10^3/ul (0.0-0.5); EOSINOPHILS % 3.2 % (0.0-7.0); HEMOGLOBIN 8.8 g/dl (12.0-16.0); LYMPHOCYTES # 0.5 10^3/ul (0.8-2.9); LYMPHOCYTES % 9.3 % (15.0-51.0); MEAN CORPUSCULAR HGB CONC 32.6 g/dl (32.0-37.0); MEAN CORPUSCULAR VOLUME 101.1 fl (82.0-101.0); MEAN PLATELET VOLUME 10.5 fl (7.4-10.4); MONOCYTE # 0.5 10^3/ul (0.3-0.9); MONOCYTES % 8.4 % (0.0-11.0); NEUTROPHILS % 78.5 % (39.0-77.0); PLATELET COUNT 165 10^3/UL (140-415); RED BLOOD COUNT 2.67 10^6/ul (4.20-5.40); RED CELL DISTRIBUTION WIDTH 15.2 % (11.5-14.5); WHITE BLOOD COUNT 5.4 10^3/ul (4.8-10.8)
[2016-11-25 06:04] LABS: CALCIUM 8.4 mg/dl (8.4-10.2); CREATININE 6.3 mg/dl (0.44-1.00); POTASSIUM 4.7 mmol/L (3.5-5.1)
[2016-11-25] MEDS: DIPHENHYDRAMINE 50 MG CAP PO SCH ×3 (06:12→21:32)
[2016-11-25] MEDS: CYCLOBENZAPRINE 10 MG TAB PO SCH ×4 (06:13→23:28)
[2016-11-25] MEDS: FUROSEMIDE 40 MG TAB PO SCH ×2 (06:16→18:14)
[2016-11-25 06:34] LABS: POSITIVE DIFF @See below
[2016-11-25] MEDS: INSULIN ASPART [NOVOLOG] 3 ML PEN SC SCH ×7 (08:04→21:00)
[2016-11-25] MEDS: FOLIC ACID 1 MG TAB PO SCH (08:40)
[2016-11-25] MEDS: PANTOPRAZOLE (EC) 40 MG TAB PO SCH (08:40)
[2016-11-25] MEDS: MINERAL OIL 30ML CUP PO SCH ×3 (08:40→21:32)
[2016-11-25] MEDS: CLOPIDOGREL 75 MG TAB PO SCH (08:40)
[2016-11-25] MEDS: SEVELAMER CARBONATE 0.8 GM PKT PO SCH ×3 (08:40→18:10)
[2016-11-25] MEDS: MULTIVIT/CA CARB/B CMPLX/FA TAB PO SCH (08:40)
[2016-11-25] MEDS: LINAGLIPTIN 5 MG TABLET PO SCH (08:40)
[2016-11-25] MEDS: DOCUSATE SODIUM 100 MG CAP PO SCH ×2 (08:40→21:32)
[2016-11-25] MEDS: GABAPENTIN 300 MG CAP PO SCH ×2 (08:40→21:32)
[2016-11-25] MEDS: ASPIRIN (EC) 81 MG TAB PO SCH (08:40)
[2016-11-25] MEDS: BACITRACIN 0.5%/ZINC 28.35 GM OINT TOP SCH ×2 (08:43→21:33)
[2016-11-25] MEDS: EUCERIN 113 GM CR TOP SCH ×2 (08:43→21:34)
[2016-11-25] MEDS: AMLODIPINE 10 MG TAB PO SCH ×2 (08:54→18:57)
[2016-11-25] MEDS: LOSARTAN 50 MG TAB PO SCH ×2 (08:54→18:58)
[2016-11-25] MEDS ORDERED: ALPRAZOLAM 1 MG TAB PO ONE (11:00)
--- NOTE | 2016-11-25 11:19 | CONS ---
Date/Time of Note Date/Time of Note DATE: 11/25/16 TIME: 11:16 Assessment/Plan Assessment/Plan Chief Complaint/Hosp Course Physical exam Constitutional: well developed Head: atraumatic, normocephalic Neck: supple Respiratory: clear to auscultation Cardiovascular: regular rate and rhythm Gastrointestinal: non-tender, soft ext : LLE black eschar with cellulitis 56 Y/O Chief Complaint/Hosp Course 1. Left lower extremity cellulitis 2. ESRD.on T/T/S via Left arm fistula s/p permacath removal 3. Severe peripheral vascular disease with left lower extremity ischemia, status post angiogram intervention. 4. Peripheral neuropathy. 5. Depression. 6. Anemia of chronic disease. 7. Hypertension, controlled. 8. DM type II uncontrolled Problems: Additional Assessment/Plan 1. continue current regime 2 HD T/T/S; HD today 3 Pt to receive HD today after CT with iv contrast 4 HTN: Ativan given for agitation; reassess bp after agitation controlled and post HD today Problems: Consultation Date/Type/Reason Admit Date/Time Nov 13, 2016 at 18:46 Initial Consult Date 11/14/16 Type of Consultation: Nephrolgy Referring Provider: VIOLET RUDOLPH 24 HR Interval Summary Free Text/Dictation Pt is frustrated about CT scan done today Hypertensive but agitated and is supposed to have HD today Exam/Review of Systems Vital Signs Vitals Vital Signs Date Time Temp Pulse Resp B/P Pulse Ox O2 Delivery O2 Flow Rate FiO2 11/25/16 07:54 98.9 85 18 172/88 95 Intake and Output 11/24/16 11/24/16 11/25/16 15:00 23:00 07:00 Intake Total 1120 ml 1080 ml Balance 1120 ml 1080 ml Results Result Diagram: 11/25/16 0526 11/25/16 0526 Results 24 hrs Laboratory Tests Test 11/24/16 12:23 11/24/16 17:32 11/24/16 20:25 11/25/16 05:26 Bedside Glucose 101 85 130 White Blood Count 5.4 # Red Blood Count 2.67 L Hemoglobin 8.8 L Hematocrit 27.0 L Mean Corpuscular Volume 101.1 H Mean Corpuscular Hemoglobin 33.0 Mean Corpuscular Hemoglobin Concent 32.6 Red Cell Distribution Width 15.2 H Platelet Count 165 Mean Platelet Volume 10.5 H Neutrophils % 78.5 H Lymphocytes % 9.3 L Monocytes % 8.4 Eosinophils % 3.2 Basophils % 0.2 Nucleated Red Blood Cells % 0.0 Neutrophils # (Manual) 4 Lymphocytes # 0.5 L Monocytes # 0.5 Eosinophils # 0.2 Basophils # 0.0 Nucleated Red Blood Cells # 0.0 Sodium Level 134 L Potassium Level 4.7 Chloride Level 96 L Carbon Dioxide Level 24 Anion Gap 19 H Blood Urea Nitrogen 67 H Creatinine 6.30 H Glucose Level 126 Calcium Level 8.4 Test 11/25/16 08:03 Bedside Glucose 132 Medications Medications Current Medications Alprazolam (Xanax) 0.25 mg TID PRN PO ANXIETY Last administered on 11/20/16 12 :21; Admin Dose 0.25 MG; Start 11/13/16 at 21:30 Amlodipine Besylate (Norvasc) 10 mg DAILY PO Last administered on 11/24/16 08: 47; Admin Dose 10 MG; Start 11/14/16 at 09:00 Aspirin (Halfprin) 81 mg DAILY PO Last administered on 11/25/16 08:40; Admin Dose 81 MG; Start 11/14/16 at 09:00 Atorvastatin Calcium (Lipitor) 40 mg QHS PO Last administered on 11/24/16 20: 17; Admin Dose 40 MG; Start 11/14/16 at 21:00 Carvedilol (Coreg) 6.25 mg DAILY PO Last administered on 11/24/16 08:48; Admin Dose 6.25 MG; Start 11/14/16 at 09:00 Clonidine (Catapres) 0.2 mg TID PRN PO SBP>170 Last administered on 11/24/16 14:52; Admin Dose 0.2 MG; Start 11/13/16 at 21:30 Clopidogrel Bisulfate (plaVIX) 75 mg DAILY PO Last administered on 11/25/16 08 :40; Admin Dose 75 MG; Start 11/14/16 at 09:00 Docusate Sodium (Colace) 100 mg BID PO Last administered on 11/25/16 08:40; Admin Dose 100 MG; Start 11/14/16 at 09:00 Folic Acid (Folic Acid) 1 mg DAILY PO Last administered on 11/25/16 08:40; Admin Dose 1 MG; Start 11/14/16 at 09:00 Gabapentin (Neurontin) 300 mg BID PO Last administered on 11/25/16 08:40; Admin Dose 300 MG; Start 11/14/16 at 09:00 Losartan Potassium (Cozaar) 50 mg DAILY PO Last administered on 11/24/16 08:47 ; Admin Dose 50 MG; Start 11/14/16 at 09:00 Multivit/Ca Carb/ B Cmplx/FA/Prenat (Addie-Mikayla) 1 tab DAILY PO Last administered on 11/25/16 08:40; Admin Dose 1 TAB; Start 11/14/16 at 09:00 Morphine Sulfate (morphine) 2 mg Q6H PRN IV PAIN LEVEL 7-10 Last administered on 11/25/16 08:50; Admin Dose 2 MG; Start 11/13/16 at 21:30 Acetaminophen (Tylenol Tab) 650 mg Q6H PRN PO ELEVATED TEMPERATURE Last administered on 11/21/16 12:09; Admin Dose 650 MG; Start 11/13/16 at 21:30 Miscellaneous Information 1 ea NOTE XX ; Start 11/13/16 at 22:00 Glucose (Glutose) 15 gm Q15M PRN PO DECREASED GLUCOSE; Start 11/13/16 at 22:00 Glucose (Glutose) 22.5 gm Q15M PRN PO DECREASED GLUCOSE; Start 11/13/16 at 22: 00 Dextrose (D50w Syringe) 25 ml Q15M PRN IV DECREASED GLUCOSE; Start 11/13/16 at 22:00 Dextrose (D50w Syringe) 50 ml Q15M PRN IV DECREASED GLUCOSE; Start 11/13/16 at 22:00 Glucagon (Glucagen) 1 mg Q15M PRN IM DECREASED GLUCOSE; Start 11/13/16 at 22:00 Glucose (Glutose) 15 gm Q15M PRN BUCCAL DECREASED GLUCOSE; Start 11/13/16 at 22 :00 Diagnostic Test (Pha) (Accu-Chek) 1 ea 02 XX ; Start 11/14/16 at 02:00 Acetaminophen/ Hydrocodone Bitart ([place] (5/325)) 1 tab Q4H PRN PO PAIN LEVEL 4 -6 Last administered on 11/24/16 14:44; Admin Dose 1 TAB; Start 11/14/16 at 13: 00 Linagliptin (Tradjenta) 5 mg DAILY PO Last administered on 11/25/16 08:40; Admin Dose 5 MG; Start 11/14/16 at 12:30 Acetaminophen 325 mg 325 mg TuThSa PO ; Start 11/15/16 at 15:30 Sodium Chloride (NS) 1,000 ml @ 0 mls/hr Q0M PRN IV TO KEEP SBP ABOVE 90; Start 11/14/16 at 16:54 Diphenhydramine HCl (Benadryl) 50 mg Q8 PO Last administered on 11/25/16 06:12 ; Admin Dose 50 MG; Start 11/15/16 at 14:00 Bacitracin (Bacitracin 0.5%/ Zinc Oint) 1 applic BID TOP Last administered on 08:43; Admin Dose 1 APPLIC; Start 11/15/16 at 21:00 Cyclobenzaprine HCl (Flexeril) 5 mg Q6 PO Last administered on 11/25/16 06:13 ; Admin Dose 5 MG; Start 11/16/16 at 18:00 Multi-Ingredient Ointment (Eucerin Cream) 1 applic BID TOP Last administered on 11/25/16 08:43; Admin Dose 1 APPLIC; Start 11/17/16 at 08:49 Alprazolam (Xanax) 0.25 mg Q8H PRN PO ANXIETY Last administered on 11/21/16 17 :50; Admin Dose 0.25 MG; Start 11/21/16 at 18:00 Insulin Glargine (Lantus) 25 unit DAILY@20 SC Last administered on 11/24/16 20 :38; Admin Dose 25 UNIT; Start 11/22/16 at 20:00 Hydralazine HCl (Apresoline) 10 mg Q6H PRN IV ELEVATED SYSTOLIC BP Last administered on 11/25/16 02:24; Admin Dose 10 MG; Start 11/24/16 at 18:30 Mineral Oil (Mineral Oil) 30 ml TID PO Last administered on 11/25/16 08:40; Admin Dose 30 ML; Start 11/24/16 at 23:00 DARELL JAMES MD Nov 25, 2016 11:19
[2016-11-25] MEDS ORDERED: SOD CHLORIDE 0.9% 100 ML ONE (14:02)
[2016-11-25] MEDS ORDERED: IODIXANOL LOCM 100 ML BTL ONE (14:02)
[2016-11-25] MEDS: ACETAMINOPHEN 325 MG TAB PO SCH (15:29)
--- NOTE | 2016-11-25 15:30 | RADRPT ---
PROCEDURE: CT neck with intravenous contrast CLINICAL INDICATION: Neck pain. COMPARISON: None relevant listed. TECHNIQUE: CT of the neck was performed following the uneventful administration of 80 mL Visipaque 320 intravenous contrast. Axial images were obtained through the neck with multiplanar reformats. DOSE: The estimated administered radiation dose was CTDI vol = 11 mGy. DLP = 340 mGy-cm. One or more of the following dose reduction techniques were used: automated exposure control, adjustment of the mA and/or kV according to patient size, or use of iterative reconstruction technique. FINDINGS: Localizer: Plate and screw fixation of old right humerus fracture. Soft tissues: Normal. No suspicious enhancement. Aerodigestive tract: Artifact from dental hardware limits evaluation of the oral cavity. No primary lesion identified within the nasopharynx, oropharynx, hypopharynx, larynx, and proximal trachea. The esophagus is distended with debris. Salivary glands: Normal. Thyroid: Normal. Lymph nodes: There are non-specific scattered sub-centimeter lymph nodes in the neck bilaterally. No pathologically enlarged or morphologically suspicious adenopathy. Vessels: Both common carotid artery smaller retropharyngeal course. Moderate calcified atherosclero tic plaque at both internal carotid artery origins. Bones: Old fractures of both lamina papyracea. Moderate anterior endplate spurring and endplate irre gularity at C5-C6 and C6-C7 Visualized lung apices: Clear. Visualized brain parenchyma: Normal. Additional comment: This is 10 cyst or polyp within the right maxillary sinus. Mild mucosal thicken ing within the right maxillary sinus. IMPRESSION: 1. No mass or fluid collection. 2. The esophagus is distended with fluid, placing the patient atmosphere aspiration. 3. Right maxillary sinusitis. RPTAT: PP Physician Leona Date Time Electronically viewed and signed by Physician Leona on 11/25/2016 15:29 LG/
--- NOTE | 2016-11-25 15:40 | PN ---
Date/Time of Note Date/Time of Note DATE: 11/25/16 TIME: 15:38 Assessment/Plan VTE Prophylaxis VTE Prophylaxis Intervention: SCD's Lines/Catheters IV Catheter Type (from [facility]): [place] [facility] Urinary Cath still in place: No Assessment/Plan Chief Complaint/Hosp Course Patient is currently undergoing hemodialysis, status post CT of the neck, ports report is not available. Patient's complains of the neck pain. Assessment/Plan -Neck pain, cervical x-rays negative, MRI of the cervical spine demonstrates prevertebral soft tissue signal hyperintensity from approximately C4-C7. Pending CT of the neck results. -Left lower extremity cellulitis, Dr. Rice is following infection disease consultation, continue antibiotics per ID. -Severe PVD, with multiple vascular intervention including a left lower extremity bypass. Dr. Ruano is following an vascular surgery. -Hemodialysis dependent end-stage renal disease, Dr. Garcia is following in nephrology consultation, continue hemodialysis. -Diabetes mellitus type 2, continue Tradjenta Lantus and NovoLog -S/p orthopedic procedures to RUE with metal prosthetic after bone Fx Further recommendations based on clinical course. Plan of care discussed with Dr. Cordero. Problems: Exam/Review of Systems Vital Signs Vitals Vital Signs Date Time Temp Pulse Resp B/P Pulse Ox O2 Delivery O2 Flow Rate FiO2 11/25/16 15:34 98.1 73 18 149/66 93 Intake and Output 11/24/16 11/24/16 11/25/16 14:59 22:59 06:59 Intake Total 1120 ml 1080 ml Balance 1120 ml 1080 ml Exam Constitutional: alert, oriented Neck: supple Respiratory: clear to auscultation Cardiovascular: nl pulses Gastrointestinal: non-tender, soft Musculoskeletal: nl extremities to inspection Extremities: normal pulses Neurological: nl mental status Skin: other (LLE wound with eschar) Results Result Diagram: 11/25/16 0511/25/16 0526 Results 24 hrs Laboratory Tests Test 11/24/16 17:32 11/24/16 20:25 11/25/16 05:26 11/25/16 08:03 Bedside Glucose 85 130 132 White Blood Count 5.4 # Red Blood Count 2.67 L Hemoglobin 8.8 L Hematocrit 27.0 L Mean Corpuscular Volume 101.1 H Mean Corpuscular Hemoglobin 33.0 Mean Corpuscular Hemoglobin Concent 32.6 Red Cell Distribution Width 15.2 H Platelet Count 165 Mean Platelet Volume 10.5 H Neutrophils % 78.5 H Lymphocytes % 9.3 L Monocytes % 8.4 Eosinophils % 3.2 Basophils % 0.2 Nucleated Red Blood Cells % 0.0 Neutrophils # (Manual) 4 Lymphocytes # 0.5 L Monocytes # 0.5 Eosinophils # 0.2 Basophils # 0.0 Nucleated Red Blood Cells # 0.0 Sodium Level 134 L Potassium Level 4.7 Chloride Level 96 L Carbon Dioxide Level 24 Anion Gap 19 H Blood Urea Nitrogen 67 H Creatinine 6.30 H Glucose Level 126 Calcium Level 8.4 Test 11/25/16 13:24 Bedside Glucose 79 Medications Medications Current Medications Alprazolam (Xanax) 0.25 mg TID PRN PO ANXIETY Last administered on 11/20/16 12 :21; Admin Dose 0.25 MG; Start 11/13/16 at 21:30 Amlodipine Besylate (Norvasc) 10 mg DAILY PO Last administered on 11/24/16 08: 47; Admin Dose 10 MG; Start 11/14/16 at 09:00 Aspirin (Halfprin) 81 mg DAILY PO Last administered on 11/25/16 08:40; Admin Dose 81 MG; Start 11/14/16 at 09:00 Atorvastatin Calcium (Lipitor) 40 mg QHS PO Last administered on 11/24/16 20: 17; Admin Dose 40 MG; Start 11/14/16 at 21:00 Carvedilol (Coreg) 6.25 mg DAILY PO Last administered on 11/24/16 08:48; Admin Dose 6.25 MG; Start 11/14/16 at 09:00 Clonidine (Catapres) 0.2 mg TID PRN PO SBP>170 Last administered on 11/24/16 14:52; Admin Dose 0.2 MG; Start 11/13/16 at 21:30 Clopidogrel Bisulfate (plaVIX) 75 mg DAILY PO Last administered on 11/25/16 08 :40; Admin Dose 75 MG; Start 11/14/16 at 09:00 Docusate Sodium (Colace) 100 mg BID PO Last administered on 11/25/16 08:40; Admin Dose 100 MG; Start 11/14/16 at 09:00 Folic Acid (Folic Acid) 1 mg DAILY PO Last administered on 11/25/16 08:40; Admin Dose 1 MG; Start 11/14/16 at 09:00 Gabapentin (Neurontin) 300 mg BID PO Last administered on 11/25/16 08:40; Admin Dose 300 MG; Start 11/14/16 at 09:00 Losartan Potassium (Cozaar) 50 mg DAILY PO Last administered on 11/24/16 08:47 ; Admin Dose 50 MG; Start 11/14/16 at 09:00 Multivit/Ca Carb/ B Cmplx/FA/Prenat (Addie-Mikayla) 1 tab DAILY PO Last administered on 11/25/16 08:40; Admin Dose 1 TAB; Start 11/14/16 at 09:00 Morphine Sulfate (morphine) 2 mg Q6H PRN IV PAIN LEVEL 7-10 Last administered on 11/25/16 08:50; Admin Dose 2 MG; Start 11/13/16 at 21:30 Acetaminophen (Tylenol Tab) 650 mg Q6H PRN PO ELEVATED TEMPERATURE Last administered on 11/21/16 12:09; Admin Dose 650 MG; Start 11/13/16 at 21:30 Miscellaneous Information 1 ea NOTE XX ; Start 11/13/16 at 22:00 Glucose (Glutose) 15 gm Q15M PRN PO DECREASED GLUCOSE; Start 11/13/16 at 22:00 Glucose (Glutose) 22.5 gm Q15M PRN PO DECREASED GLUCOSE; Start 11/13/16 at 22: 00 Dextrose (D50w Syringe) 25 ml Q15M PRN IV DECREASED GLUCOSE; Start 11/13/16 at 22:00 Dextrose (D50w Syringe) 50 ml Q15M PRN IV DECREASED GLUCOSE; Start 11/13/16 at 22:00 Glucagon (Glucagen) 1 mg Q15M PRN IM DECREASED GLUCOSE; Start 11/13/16 at 22:00 Glucose (Glutose) 15 gm Q15M PRN BUCCAL DECREASED GLUCOSE; Start 11/13/16 at 22 :00 Diagnostic Test (Pha) (Accu-Chek) 1 ea 02 XX ; Start 11/14/16 at 02:00 Acetaminophen/ Hydrocodone Bitart ([place] (5/325)) 1 tab Q4H PRN PO PAIN LEVEL 4 -6 Last administered on 11/24/16 14:44; Admin Dose 1 TAB; Start 11/14/16 at 13: 00 Linagliptin (Tradjenta) 5 mg DAILY PO Last administered on 11/25/16 08:40; Admin Dose 5 MG; Start 11/14/16 at 12:30 Acetaminophen 325 mg 325 mg TuThSa PO ; Start 11/15/16 at 15:30 Sodium Chloride (NS) 1,000 ml @ 0 mls/hr Q0M PRN IV TO KEEP SBP ABOVE 90; Start 11/14/16 at 16:54 Diphenhydramine HCl (Benadryl) 50 mg Q8 PO Last administered on 11/25/16 06:12 ; Admin Dose 50 MG; Start 11/15/16 at 14:00 Bacitracin (Bacitracin 0.5%/ Zinc Oint) 1 applic BID TOP Last administered on 08:43; Admin Dose 1 APPLIC; Start 11/15/16 at 21:00 Cyclobenzaprine HCl (Flexeril) 5 mg Q6 PO Last administered on 11/25/16 12:08 ; Admin Dose 5 MG; Start 11/16/16 at 18:00 Multi-Ingredient Ointment (Eucerin Cream) 1 applic BID TOP Last administered on 11/25/16 08:43; Admin Dose 1 APPLIC; Start 11/17/16 at 08:49 Alprazolam (Xanax) 0.25 mg Q8H PRN PO ANXIETY Last administered on 11/21/16 17 :50; Admin Dose 0.25 MG; Start 11/21/16 at 18:00 Insulin Glargine (Lantus) 25 unit DAILY@20 SC Last administered on 11/24/16 20 :38; Admin Dose 25 UNIT; Start 11/22/16 at 20:00 Hydralazine HCl (Apresoline) 10 mg Q6H PRN IV ELEVATED SYSTOLIC BP Last administered on 11/25/16 02:24; Admin Dose 10 MG; Start 11/24/16 at 18:30 Mineral Oil (Mineral Oil) 30 ml TID PO Last administered on 11/25/16 08:40; Admin Dose 30 ML; Start 11/24/16 at 23:00 ANTHONY DUPREE Nov 25, 2016 15:40
--- NOTE | 2016-11-25 17:26 | CONS ---
Date/Time of Note Date/Time of Note DATE: 11/25/16 TIME: 17:21 Assessment/Plan Assessment/Plan Chief Complaint/Hosp Course assessment/impression: - skin and soft tissue infection of LLE with eschar. CT was negative for osteomyelitis. Improved - chronically severe pain of LLE, likely multifactorial: skin and soft tissue infection, PVD, lymphadenitis - PVD - s/p bypass of LLE - DM - Hgb A1c 8.8% - h/o OM of b/l feet, s/p amputation of R two toes - diabetic neuropathy - ESRD on HD 3 times a week, now via LUE AVF - s/p R chest wall permacath removal 11/17/2016 - Acute on chronic anemia of chronic disease requiring blood transfusion - CHF and CAD - s/p orthopedic procedures to RUE with metal prosthetic after bone Fx - dry skin and pruritis, which started prior to admission, improved with a moisturizer - possible red man syndrome due to vancomycin; Pt tolerates it with premedication protocol (benadryl, tylenol) - neck pain, upper back pain and shoulder pain - C-Spine x-ray showed no acute process; MRI with and without contrast on 11/23/2016 showed prevertebral soft tissue signal hyperintensity from approximately C4-C7 without demonstrable evidence of postcontrast enhancement involving the vertebrae or intervertebral discs to suggest diskitis or osteomyelitis. Clinically, Pt's neck is supple. ESR =92 on 11/23/2016 - morbid obesity - BMI 39.7 recommendations: - continue to monitor Pt off systemic antibiotic; Pt's s/p renally dosed vancomycin (11/13/2016-11/23/2016). It was explained that pain of b/l LEs is likely due to her vascular insufficiency and may not readily resolve. - keep LEs elevated to decrease lymphedema (Pt has not been compliant with this instruction, however) - consider evaluation by a powered bridge specialist re. pain in her C spine, inpatient or outpatient management d/w Pt Problems: Consultation Date/Type/Reason Admit Date/Time Nov 13, 2016 at 18:46 Initial Consult Date 11/14/16 Type of Consultation: ID Referring Provider: VIOLET RUDOLPH 24 HR Interval Summary Constitutional: other (weak), poor po Detailed Summary Eyes: no complaints ENT: other (chronic neck pain) Respiratory: no complaints Cardiovascular: no complaints Gastrointestinal: no complaints Genitourinary: other (anuric) Musculoskeletal: bone/joint pain (chronic neck pain) Skin: other (pain in b/l LEs, eschar of LLE) Neurologic: no complaints, No focal-weakness, No headache Lymphatic: no complaints Psychological: nl mood/affect, no complaints Exam/Review of Systems Vital Signs Vitals Vital Signs Date Time Temp Pulse Resp B/P Pulse Ox O2 Delivery O2 Flow Rate FiO2 11/25/16 17:00 77 11/25/16 17:00 18 11/25/16 15:34 98.1 149/66 93 Intake and Output 11/24/16 11/24/16 11/25/16 15:00 23:00 07:00 Intake Total 1120 ml 1080 ml Balance 1120 ml 1080 ml Exam Constitutional: alert, well developed Psych: nl mood/affect, no complaints Head: atraumatic, normocephalic Eyes: nl conjunctiva, nl lids, nl sclera ENMT: mucosa pink and moist, nl external ears & nose, nl nasal mucosa & septum Neck: non-tender, other (Pt spontaneously moved her neck when I woke he up from sleep vebally), supple, No masses Respiratory: clear to auscultation, normal air movement Cardiovascular: nl pulses, regular rate and rhythm Gastrointestinal: non-tender, soft Musculoskeletal: nl extremities to inspection Extremities: edema, tenderness (b/l LE, feet) Neurological: HORTICULTURALIST II-XII intact, nl mental status, nl speech Skin: rash or lesions (lymphadenitis and erythema of b/l LE, L>R. difusely TTP but less than before) Results Result Diagram: 11/25/1652511/25/16 0526 Results 24 hrs Laboratory Tests Test 11/24/16 17:32 11/24/16 20:25 11/25/16 05:26 11/25/16 08:03 Bedside Glucose 85 130 132 White Blood Count 5.4 # Red Blood Count 2.67 L Hemoglobin 8.8 L Hematocrit 27.0 L Mean Corpuscular Volume 101.1 H Mean Corpuscular Hemoglobin 33.0 Mean Corpuscular Hemoglobin Concent 32.6 Red Cell Distribution Width 15.2 H Platelet Count 165 Mean Platelet Volume 10.5 H Neutrophils % 78.5 H Lymphocytes % 9.3 L Monocytes % 8.4 Eosinophils % 3.2 Basophils % 0.2 Nucleated Red Blood Cells % 0.0 Neutrophils # (Manual) 4 Lymphocytes # 0.5 L Monocytes # 0.5 Eosinophils # 0.2 Basophils # 0.0 Nucleated Red Blood Cells # 0.0 Sodium Level 134 L Potassium Level 4.7 Chloride Level 96 L Carbon Dioxide Level 24 Anion Gap 19 H Blood Urea Nitrogen 67 H Creatinine 6.30 H Glucose Level 126 Calcium Level 8.4 Test 11/25/16 13:24 Bedside Glucose 79 Medications Medications Current Medications Alprazolam (Xanax) 0.25 mg TID PRN PO ANXIETY Last administered on 11/20/16 12 :21; Admin Dose 0.25 MG; Start 11/13/16 at 21:30 Amlodipine Besylate (Norvasc) 10 mg DAILY PO Last administered on 11/24/16 08: 47; Admin Dose 10 MG; Start 11/14/16 at 09:00 Aspirin (Halfprin) 81 mg DAILY PO Last administered on 11/25/16 08:40; Admin Dose 81 MG; Start 11/14/16 at 09:00 Atorvastatin Calcium (Lipitor) 40 mg QHS PO Last administered on 11/24/16 20: 17; Admin Dose 40 MG; Start 11/14/16 at 21:00 Carvedilol (Coreg) 6.25 mg DAILY PO Last administered on 11/24/16 08:48; Admin Dose 6.25 MG; Start 11/14/16 at 09:00 Clonidine (Catapres) 0.2 mg TID PRN PO SBP>170 Last administered on 11/24/16 14:52; Admin Dose 0.2 MG; Start 11/13/16 at 21:30 Clopidogrel Bisulfate (plaVIX) 75 mg DAILY PO Last administered on 11/25/16 08 :40; Admin Dose 75 MG; Start 11/14/16 at 09:00 Docusate Sodium (Colace) 100 mg BID PO Last administered on 11/25/16 08:40; Admin Dose 100 MG; Start 11/14/16 at 09:00 Folic Acid (Folic Acid) 1 mg DAILY PO Last administered on 11/25/16 08:40; Admin Dose 1 MG; Start 11/14/16 at 09:00 Gabapentin (Neurontin) 300 mg BID PO Last administered on 11/25/16 08:40; Admin Dose 300 MG; Start 11/14/16 at 09:00 Losartan Potassium (Cozaar) 50 mg DAILY PO Last administered on 11/24/16 08:47 ; Admin Dose 50 MG; Start 11/14/16 at 09:00 Multivit/Ca Carb/ B Cmplx/FA/Prenat (Addie-Mikayla) 1 tab DAILY PO Last administered on 11/25/16 08:40; Admin Dose 1 TAB; Start 11/14/16 at 09:00 Morphine Sulfate (morphine) 2 mg Q6H PRN IV PAIN LEVEL 7-10 Last administered on 11/25/16 08:50; Admin Dose 2 MG; Start 11/13/16 at 21:30 Acetaminophen (Tylenol Tab) 650 mg Q6H PRN PO ELEVATED TEMPERATURE Last administered on 11/21/16 12:09; Admin Dose 650 MG; Start 11/13/16 at 21:30 Miscellaneous Information 1 ea NOTE XX ; Start 11/13/16 at 22:00 Glucose (Glutose) 15 gm Q15M PRN PO DECREASED GLUCOSE; Start 11/13/16 at 22:00 Glucose (Glutose) 22.5 gm Q15M PRN PO DECREASED GLUCOSE; Start 11/13/16 at 22: 00 Dextrose (D50w Syringe) 25 ml Q15M PRN IV DECREASED GLUCOSE; Start 11/13/16 at 22:00 Dextrose (D50w Syringe) 50 ml Q15M PRN IV DECREASED GLUCOSE; Start 11/13/16 at 22:00 Glucagon (Glucagen) 1 mg Q15M PRN IM DECREASED GLUCOSE; Start 11/13/16 at 22:00 Glucose (Glutose) 15 gm Q15M PRN BUCCAL DECREASED GLUCOSE; Start 11/13/16 at 22 :00 Diagnostic Test (Pha) (Accu-Chek) 1 ea 02 XX ; Start 11/14/16 at 02:00 Acetaminophen/ Hydrocodone Bitart ([place] (5/325)) 1 tab Q4H PRN PO PAIN LEVEL 4 -6 Last administered on 11/24/16 14:44; Admin Dose 1 TAB; Start 11/14/16 at 13: 00 Linagliptin (Tradjenta) 5 mg DAILY PO Last administered on 11/25/16 08:40; Admin Dose 5 MG; Start 11/14/16 at 12:30 Acetaminophen 325 mg 325 mg TuThSa PO ; Start 11/15/16 at 15:30 Sodium Chloride (NS) 1,000 ml @ 0 mls/hr Q0M PRN IV TO KEEP SBP ABOVE 90; Start 11/14/16 at 16:54 Diphenhydramine HCl (Benadryl) 50 mg Q8 PO Last administered on 11/25/16 06:12 ; Admin Dose 50 MG; Start 11/15/16 at 14:00 Bacitracin (Bacitracin 0.5%/ Zinc Oint) 1 applic BID TOP Last administered on 08:43; Admin Dose 1 APPLIC; Start 11/15/16 at 21:00 Cyclobenzaprine HCl (Flexeril) 5 mg Q6 PO Last administered on 11/25/16 12:08 ; Admin Dose 5 MG; Start 11/16/16 at 18:00 Multi-Ingredient Ointment (Eucerin Cream) 1 applic BID TOP Last administered on 11/25/16 08:43; Admin Dose 1 APPLIC; Start 11/17/16 at 08:49 Alprazolam (Xanax) 0.25 mg Q8H PRN PO ANXIETY Last administered on 11/21/16 17 :50; Admin Dose 0.25 MG; Start 11/21/16 at 18:00 Insulin Glargine (Lantus) 25 unit DAILY@20 SC Last administered on 11/24/16 20 :38; Admin Dose 25 UNIT; Start 11/22/16 at 20:00 Hydralazine HCl (Apresoline) 10 mg Q6H PRN IV ELEVATED SYSTOLIC BP Last administered on 11/25/16 02:24; Admin Dose 10 MG; Start 11/24/16 at 18:30 Mineral Oil (Mineral Oil) 30 ml TID PO Last administered on 11/25/16 08:40; Admin Dose 30 ML; Start 11/24/16 at 23:00 ALEXANDER MARTÍNEZ M.D. Nov 25, 2016 17:26
[2016-11-25] MEDS: INSULIN GLARGINE [LANtus] 3 ML PEN SC SCH (20:57)
[2016-11-25] MEDS: ATORVASTATIN 40 MG TAB PO SCH (21:32)
[2016-11-25] MEDS: HYDROCODONE/APAP (5/325) TAB PO PRN (21:33)
[2016-11-26] MEDS: ACCU-CHEK XX SCH (01:13)
[2016-11-26] MEDS: morphine 2 MG INJ IV PRN ×4 (01:18→21:04)
[2016-11-26 01:44] VITALS: BP 179/77; RESP 20
[2016-11-26] MEDS: hydrALAzine 20 MG INJ IV PRN (02:36)
[2016-11-26 06:07] LABS: BASOPHILS % 0.6 % (0.0-2.0); EOSINOPHILS # 0.2 10^3/ul (0.0-0.5); EOSINOPHILS % 5.9 % (0.0-7.0); LYMPHOCYTES # 0.7 10^3/ul (0.8-2.9); LYMPHOCYTES % 21.4 % (15.0-51.0); MEAN CORPUSCULAR HEMOGLOBIN 31.5 pg (29.0-33.0); MEAN CORPUSCULAR HGB CONC 30.8 g/dl (32.0-37.0); MEAN CORPUSCULAR VOLUME 102.4 fl (82.0-101.0); MEAN PLATELET VOLUME 11.2 fl (7.4-10.4); MONOCYTE # 0.6 10^3/ul (0.3-0.9); MONOCYTES % 16.7 % (0.0-11.0); NEUTROPHILS % 55.4 % (39.0-77.0); PLATELET COUNT 179 10^3/UL (140-415); RED BLOOD COUNT 2.54 10^6/ul (4.20-5.40); RED CELL DISTRIBUTION WIDTH 15.4 % (11.5-14.5); WHITE BLOOD COUNT 3.4 10^3/ul (4.8-10.8)
[2016-11-26] MEDS: CYCLOBENZAPRINE 10 MG TAB PO SCH ×3 (06:21→17:18)
[2016-11-26] MEDS: DIPHENHYDRAMINE 50 MG CAP PO SCH ×3 (06:21→20:56)
[2016-11-26] MEDS: FUROSEMIDE 40 MG TAB PO SCH ×2 (06:22→17:19)
[2016-11-26 06:35] LABS: CALCIUM 8.5 mg/dl (8.4-10.2); CREATININE 4.85 mg/dl (0.44-1.00)
[2016-11-26] MEDS: PANTOPRAZOLE (EC) 40 MG TAB PO SCH (08:10)
[2016-11-26] MEDS: FOLIC ACID 1 MG TAB PO SCH (08:10)
[2016-11-26] MEDS: GABAPENTIN 300 MG CAP PO SCH ×2 (08:10→20:56)
[2016-11-26] MEDS: ASPIRIN (EC) 81 MG TAB PO SCH (08:10)
[2016-11-26] MEDS: MULTIVIT/CA CARB/B CMPLX/FA TAB PO SCH (08:10)
[2016-11-26] MEDS: CLOPIDOGREL 75 MG TAB PO SCH (08:10)
[2016-11-26] MEDS: SEVELAMER CARBONATE 0.8 GM PKT PO SCH ×3 (08:10→17:18)
[2016-11-26] MEDS: LINAGLIPTIN 5 MG TABLET PO SCH (08:10)
[2016-11-26] MEDS: DOCUSATE SODIUM 100 MG CAP PO SCH ×2 (08:10→20:56)
[2016-11-26] MEDS: EUCERIN 113 GM CR TOP SCH ×2 (08:11→20:57)
[2016-11-26] MEDS: LOSARTAN 50 MG TAB PO SCH (08:12)
[2016-11-26] MEDS: AMLODIPINE 10 MG TAB PO SCH (08:12)
[2016-11-26] MEDS: MINERAL OIL 30ML CUP PO SCH ×3 (08:14→20:56)
[2016-11-26] MEDS: INSULIN ASPART [NOVOLOG] 3 ML PEN SC SCH ×7 (08:20→20:58)
[2016-11-26] MEDS: BACITRACIN 0.5%/ZINC 28.35 GM OINT TOP SCH ×2 (08:31→20:57)
[2016-11-26 08:41] VITALS: BP 162/70; RESP 20
--- NOTE | 2016-11-26 14:10 | PN ---
Date/Time of Note Date/Time of Note DATE: 11/26/16 TIME: 14:09 Assessment/Plan VTE Prophylaxis VTE Prophylaxis Intervention: SCD's Lines/Catheters [facility] [facility] Urinary Cath still in place: No Assessment/Plan Chief Complaint/Hosp Course Soft tissue CT of the neck is negative for any fluid collection however shows esophageal distention which places the patient for aspiration risk. Dr. Canada is asked to see patient in gastroenterology consultation. Assessment/Plan -Neck pain, cervical x-rays negative, MRI of the cervical spine demonstrates prevertebral soft tissue signal hyperintensity from approximately C4-C7. -Left lower extremity cellulitis, Dr. Rice is following infection disease consultation, continue antibiotics per ID. -Severe PVD, with multiple vascular intervention including a left lower extremity bypass. Dr. Ruano is following an vascular surgery. -Hemodialysis dependent end-stage renal disease, Dr. Garcia is following in nephrology consultation, continue hemodialysis. -Diabetes mellitus type 2, continue Tradjenta Lantus and NovoLog -S/p orthopedic procedures to RUE with metal prosthetic after bone Fx Further recommendations based on clinical course. Plan of care discussed with Dr. Cordero. Problems: Exam/Review of Systems Vital Signs Vitals Vital Signs Date Time Temp Pulse Resp B/P Pulse Ox O2 Delivery O2 Flow Rate FiO2 11/26/16 08:41 98.9 82 20 162/70 95 Intake and Output 11/25/16 11/25/16 11/26/16 15:00 23:00 07:00 Intake Total 1800 ml 240 ml Output Total 3000 ml Balance -1200 ml 240 ml Exam Constitutional: alert, oriented Neck: supple Respiratory: clear to auscultation Cardiovascular: nl pulses Gastrointestinal: non-tender, soft Musculoskeletal: nl extremities to inspection Extremities: normal pulses Neurological: nl mental status Skin: other (LLE wound with eschar) Results Result Diagram: 11/26/1628 11/26/1628 Results 24 hrs Laboratory Tests Test 11/25/16 18:08 11/25/16 20:54 11/26/16 05:28 11/26/16 08:07 Bedside Glucose 126 137 154 White Blood Count 3.4 #L Red Blood Count 2.54 L Hemoglobin 8.0 L Hematocrit 26.0 L Mean Corpuscular Volume 102.4 H Mean Corpuscular Hemoglobin 31.5 Mean Corpuscular Hemoglobin Concent 30.8 L Red Cell Distribution Width 15.4 H Platelet Count 179 Mean Platelet Volume 11.2 H Neutrophils % 55.4 Lymphocytes % 21.4 Monocytes % 16.7 H Eosinophils % 5.9 Basophils % 0.6 Nucleated Red Blood Cells % 0.0 Neutrophils # (Manual) 2 Lymphocytes # 0.7 L Monocytes # 0.6 Eosinophils # 0.2 Basophils # 0.0 Nucleated Red Blood Cells # 0.0 Sodium Level 139 Potassium Level 4.0 Chloride Level 101 Carbon Dioxide Level 27 Anion Gap 15 Blood Urea Nitrogen 42 #H Creatinine 4.85 #H Glucose Level 111 Calcium Level 8.5 Test 11/26/16 12:00 Bedside Glucose 164 Medications Medications Current Medications Alprazolam (Xanax) 0.25 mg TID PRN PO ANXIETY Last administered on 11/20/16 12 :21; Admin Dose 0.25 MG; Start 11/13/16 at 21:30 Amlodipine Besylate (Norvasc) 10 mg DAILY PO Last administered on 11/26/16 08: 12; Admin Dose 10 MG; Start 11/14/16 at 09:00 Aspirin (Halfprin) 81 mg DAILY PO Last administered on 11/26/16 08:10; Admin Dose 81 MG; Start 11/14/16 at 09:00 Atorvastatin Calcium (Lipitor) 40 mg QHS PO Last administered on 11/25/16 21: 32; Admin Dose 40 MG; Start 11/14/16 at 21:00 Carvedilol (Coreg) 6.25 mg DAILY PO Last administered on 11/26/16 08:12; Admin Dose 6.25 MG; Start 11/14/16 at 09:00 Clonidine (Catapres) 0.2 mg TID PRN PO SBP>170 Last administered on 11/24/16 14:52; Admin Dose 0.2 MG; Start 11/13/16 at 21:30 Clopidogrel Bisulfate (plaVIX) 75 mg DAILY PO Last administered on 11/26/16 08 :10; Admin Dose 75 MG; Start 11/14/16 at 09:00 Docusate Sodium (Colace) 100 mg BID PO Last administered on 11/26/16 08:10; Admin Dose 100 MG; Start 11/14/16 at 09:00 Folic Acid (Folic Acid) 1 mg DAILY PO Last administered on 11/26/16 08:10; Admin Dose 1 MG; Start 11/14/16 at 09:00 Gabapentin (Neurontin) 300 mg BID PO Last administered on 11/26/16 08:10; Admin Dose 300 MG; Start 11/14/16 at 09:00 Losartan Potassium (Cozaar) 50 mg DAILY PO Last administered on 11/26/16 08:12 ; Admin Dose 50 MG; Start 11/14/16 at 09:00 Multivit/Ca Carb/ B Cmplx/FA/Prenat (Addie-Mikayla) 1 tab DAILY PO Last administered on 11/26/16 08:10; Admin Dose 1 TAB; Start 11/14/16 at 09:00 Morphine Sulfate (morphine) 2 mg Q6H PRN IV PAIN LEVEL 7-10 Last administered on 11/26/16 08:29; Admin Dose 2 MG; Start 11/13/16 at 21:30 Acetaminophen (Tylenol Tab) 650 mg Q6H PRN PO ELEVATED TEMPERATURE Last administered on 11/21/16 12:09; Admin Dose 650 MG; Start 11/13/16 at 21:30 Miscellaneous Information 1 ea NOTE XX ; Start 11/13/16 at 22:00 Glucose (Glutose) 15 gm Q15M PRN PO DECREASED GLUCOSE; Start 11/13/16 at 22:00 Glucose (Glutose) 22.5 gm Q15M PRN PO DECREASED GLUCOSE; Start 11/13/16 at 22: 00 Dextrose (D50w Syringe) 25 ml Q15M PRN IV DECREASED GLUCOSE; Start 11/13/16 at 22:00 Dextrose (D50w Syringe) 50 ml Q15M PRN IV DECREASED GLUCOSE; Start 11/13/16 at 22:00 Glucagon (Glucagen) 1 mg Q15M PRN IM DECREASED GLUCOSE; Start 11/13/16 at 22:00 Glucose (Glutose) 15 gm Q15M PRN BUCCAL DECREASED GLUCOSE; Start 11/13/16 at 22 :00 Diagnostic Test (Pha) (Accu-Chek) 1 ea 02 XX ; Start 11/14/16 at 02:00 Acetaminophen/ Hydrocodone Bitart ([place] (5/325)) 1 tab Q4H PRN PO PAIN LEVEL 4 -6 Last administered on 11/25/16 21:33; Admin Dose 1 TAB; Start 11/14/16 at 13: 00 Linagliptin (Tradjenta) 5 mg DAILY PO Last administered on 11/26/16 08:10; Admin Dose 5 MG; Start 11/14/16 at 12:30 Acetaminophen 325 mg 325 mg TuThSa PO ; Start 11/15/16 at 15:30 Sodium Chloride (NS) 1,000 ml @ 0 mls/hr Q0M PRN IV TO KEEP SBP ABOVE 90; Start 11/14/16 at 16:54 Diphenhydramine HCl (Benadryl) 50 mg Q8 PO Last administered on 11/26/16 06:21 ; Admin Dose 50 MG; Start 11/15/16 at 14:00 Bacitracin (Bacitracin 0.5%/ Zinc Oint) 1 applic BID TOP Last administered on 08:31; Admin Dose 1 APPLIC; Start 11/15/16 at 21:00 Cyclobenzaprine HCl (Flexeril) 5 mg Q6 PO Last administered on 11/26/16 12:08 ; Admin Dose 5 MG; Start 11/16/16 at 18:00 Multi-Ingredient Ointment (Eucerin Cream) 1 applic BID TOP Last administered on 11/26/16 08:11; Admin Dose 1 APPLIC; Start 11/17/16 at 08:49 Alprazolam (Xanax) 0.25 mg Q8H PRN PO ANXIETY Last administered on 11/21/16 17 :50; Admin Dose 0.25 MG; Start 11/21/16 at 18:00 Insulin Glargine (Lantus) 25 unit DAILY@20 SC Last administered on 11/25/16 20 :57; Admin Dose 25 UNIT; Start 11/22/16 at 20:00 Hydralazine HCl (Apresoline) 10 mg Q6H PRN IV ELEVATED SYSTOLIC BP Last administered on 11/26/16 02:36; Admin Dose 10 MG; Start 11/24/16 at 18:30 Mineral Oil (Mineral Oil) 30 ml TID PO Last administered on 11/26/16 12:09; Admin Dose 30 ML; Start 11/24/16 at 23:00 ANTHONY DUPREE Nov 26, 2016 14:10
[2016-11-26 15:00] VITALS: BP 148/66; RESP 20
--- NOTE | 2016-11-26 15:33 | CONS ---
[facility] HCIS Consult Follow up SOAP Patient Name: Nikki Petit Unit Number: [id number] Date of : 1960 Patient Status: Admitted Inpatient Attending Doctor: Nolan Cordero MD Edit: ALEXANDER SHEETS M.D. on 11/27/16 @ 17:26 [place] attestation: I discussed the management with ROBERT Curiel and agree with her note. Date/Time of Note Date/Time of Note DATE: 11/26/16 TIME: 15:08 Consult Date/Type/Reason Admit Date/Time Nov 13, 2016 at 18:46 Initial Consult Date 11/14/16 Type of Consultation: INFECTIOUS DISEASE f/U Ordering Provider: VIOLET RUDOLPH Subjective Patient states that she is looking forward to going home, left leg redness and pain has improved a lot even swelling has gone down Objective Vital Signs Date Time Temp Pulse Resp B/P Pulse Ox O2 Delivery O2 Flow Rate FiO2 11/26/16 08:41 98.9 82 20 162/70 95 Intake and Output 11/25/16 11/25/16 11/26/16 15:00 23:00 07:00 Intake Total 1800 ml 240 ml Output Total 3000 ml Balance -1200 ml 240 ml Exam Constitutional: alert, obese, oriented, well developed female seated at the EOB in no acute distress Head: atraumatic, normocephalic Eyes: normal conjunctiva, nl sclera ENMT: normal external ears & nose Neck: supple Respiratory: clear to auscultation Cardiovascular: edema, regular rate and rhythm Gastrointestinal: soft, obese, non-tender,non-distended Musculoskeletal: other (TTP posterior lower neck, bilateral shoulder blades, mid upper back) Extremities: AV shunt LUE, +bruit & thrill, improved redness LLE, trace edema BLE Neurological: nl mental status Skin: Warm, dry, small eschar on LLE with surrounding improved erythema; TTP ENMT: mucosa pink and moist Results/Medications Result Diagram: 11/26/1628 11/26/16527 Results 24 hrs Laboratory Tests Test 11/25/16 18:08 11/25/16 20:54 11/26/16 05:28 11/26/16 08:07 Bedside Glucose 126 137 154 White Blood Count 3.4 #L Red Blood Count 2.54 L Hemoglobin 8.0 L Hematocrit 26.0 L Mean Corpuscular Volume 102.4 H Mean Corpuscular Hemoglobin 31.5 Mean Corpuscular Hemoglobin Concent 30.8 L Red Cell Distribution Width 15.4 H Platelet Count 179 Mean Platelet Volume 11.2 H Neutrophils % 55.4 Lymphocytes % 21.4 Monocytes % 16.7 H Eosinophils % 5.9 Basophils % 0.6 Nucleated Red Blood Cells % 0.0 Neutrophils # (Manual) 2 Lymphocytes # 0.7 L Monocytes # 0.6 Eosinophils # 0.2 Basophils # 0.0 Nucleated Red Blood Cells # 0.0 Sodium Level 139 Potassium Level 4.0 Chloride Level 101 Carbon Dioxide Level 27 Anion Gap 15 Blood Urea Nitrogen 42 #H Creatinine 4.85 #H Glucose Level 111 Calcium Level 8.5 Test 11/26/16 12:00 Bedside Glucose 164 Medications Current Medications Alprazolam (Xanax) 0.25 mg TID PRN PO ANXIETY Last administered on 11/20/16 12 :21; Admin Dose 0.25 MG; Start 11/13/16 at 21:30 Amlodipine Besylate (Norvasc) 10 mg DAILY PO Last administered on 11/26/16 08: 12; Admin Dose 10 MG; Start 11/14/16 at 09:00 Aspirin (Halfprin) 81 mg DAILY PO Last administered on 11/26/16 08:10; Admin Dose 81 MG; Start 11/14/16 at 09:00 Atorvastatin Calcium (Lipitor) 40 mg QHS PO Last administered on 11/25/16 21: 32; Admin Dose 40 MG; Start 11/14/16 at 21:00 Carvedilol (Coreg) 6.25 mg DAILY PO Last administered on 11/26/16 08:12; Admin Dose 6.25 MG; Start 11/14/16 at 09:00 Clonidine (Catapres) 0.2 mg TID PRN PO SBP>170 Last administered on 11/24/16 14:52; Admin Dose 0.2 MG; Start 11/13/16 at 21:30 Clopidogrel Bisulfate (plaVIX) 75 mg DAILY PO Last administered on 11/26/16 08 :10; Admin Dose 75 MG; Start 11/14/16 at 09:00 Docusate Sodium (Colace) 100 mg BID PO Last administered on 11/26/16 08:10; Admin Dose 100 MG; Start 11/14/16 at 09:00 Folic Acid (Folic Acid) 1 mg DAILY PO Last administered on 11/26/16 08:10; Admin Dose 1 MG; Start 11/14/16 at 09:00 Gabapentin (Neurontin) 300 mg BID PO Last administered on 11/26/16 08:10; Admin Dose 300 MG; Start 11/14/16 at 09:00 Losartan Potassium (Cozaar) 50 mg DAILY PO Last administered on 11/26/16 08:12 ; Admin Dose 50 MG; Start 11/14/16 at 09:00 Multivit/Ca Carb/ B Cmplx/FA/Prenat (Addie-Mikayla) 1 tab DAILY PO Last administered on 11/26/16 08:10; Admin Dose 1 TAB; Start 11/14/16 at 09:00 Morphine Sulfate (morphine) 2 mg Q6H PRN IV PAIN LEVEL 7-10 Last administered on 11/26/16 08:29; Admin Dose 2 MG; Start 11/13/16 at 21:30 Acetaminophen (Tylenol Tab) 650 mg Q6H PRN PO ELEVATED TEMPERATURE Last administered on 11/21/16 12:09; Admin Dose 650 MG; Start 11/13/16 at 21:30 Miscellaneous Information 1 ea NOTE XX ; Start 11/13/16 at 22:00 Glucose (Glutose) 15 gm Q15M PRN PO DECREASED GLUCOSE; Start 11/13/16 at 22:00 Glucose (Glutose) 22.5 gm Q15M PRN PO DECREASED GLUCOSE; Start 11/13/16 at 22: 00 Dextrose (D50w Syringe) 25 ml Q15M PRN IV DECREASED GLUCOSE; Start 11/13/16 at 22:00 Dextrose (D50w Syringe) 50 ml Q15M PRN IV DECREASED GLUCOSE; Start 11/13/16 at 22:00 Glucagon (Glucagen) 1 mg Q15M PRN IM DECREASED GLUCOSE; Start 11/13/16 at 22:00 Glucose (Glutose) 15 gm Q15M PRN BUCCAL DECREASED GLUCOSE; Start 11/13/16 at 22 :00 Diagnostic Test (Pha) (Accu-Chek) 1 ea 02 XX ; Start 11/14/16 at 02:00 Acetaminophen/ Hydrocodone Bitart ([place] (5/325)) 1 tab Q4H PRN PO PAIN LEVEL 4 -6 Last administered on 11/25/16 21:33; Admin Dose 1 TAB; Start 11/14/16 at 13: 00 Linagliptin (Tradjenta) 5 mg DAILY PO Last administered on 11/26/16 08:10; Admin Dose 5 MG; Start 11/14/16 at 12:30 Acetaminophen 325 mg 325 mg TuThSa PO ; Start 11/15/16 at 15:30 Sodium Chloride (NS) 1,000 ml @ 0 mls/hr Q0M PRN IV TO KEEP SBP ABOVE 90; Start 11/14/16 at 16:54 Diphenhydramine HCl (Benadryl) 50 mg Q8 PO Last administered on 11/26/16 14:18 ; Admin Dose 50 MG; Start 11/15/16 at 14:00 Bacitracin (Bacitracin 0.5%/ Zinc Oint) 1 applic BID TOP Last administered on 08:31; Admin Dose 1 APPLIC; Start 11/15/16 at 21:00 Cyclobenzaprine HCl (Flexeril) 5 mg Q6 PO Last administered on 11/26/16 12:08 ; Admin Dose 5 MG; Start 11/16/16 at 18:00 Multi-Ingredient Ointment (Eucerin Cream) 1 applic BID TOP Last administered on 11/26/16 08:11; Admin Dose 1 APPLIC; Start 11/17/16 at 08:49 Alprazolam (Xanax) 0.25 mg Q8H PRN PO ANXIETY Last administered on 11/21/16 17 :50; Admin Dose 0.25 MG; Start 11/21/16 at 18:00 Insulin Glargine (Lantus) 25 unit DAILY@20 SC Last administered on 11/25/16 20 :57; Admin Dose 25 UNIT; Start 11/22/16 at 20:00 Hydralazine HCl (Apresoline) 10 mg Q6H PRN IV ELEVATED SYSTOLIC BP Last administered on 11/26/16 02:36; Admin Dose 10 MG; Start 11/24/16 at 18:30 Mineral Oil (Mineral Oil) 30 ml TID PO Last administered on 11/26/16 12:09; Admin Dose 30 ML; Start 11/24/16 at 23:00 Assessment/Plan Chief Complaint/Hosp Course Assessment/impression: - skin and soft tissue infection of LLE with eschar. CT was negative for osteomyelitis. Improved - chronically severe pain of LLE, likely multifactorial: skin and soft tissue infection, PVD, lymphadenitis - PVD - s/p bypass of LLE - DM - Hgb A1c 8.8% - h/o OM of b/l feet, s/p amputation of R two toes - diabetic neuropathy - ESRD on HD 3 times a week, now via LUE AVF - s/p R chest wall permacath removal 11/17/2016 - Acute on chronic anemia of chronic disease requiring blood transfusion - CHF and CAD - s/p orthopedic procedures to RUE with metal prosthetic after bone Fx - dry skin and pruritis, which started prior to admission, improved with a moisturizer - possible red man syndrome due to vancomycin; Pt tolerates it with premedication protocol (benadryl, tylenol) - neck pain, upper back pain and shoulder pain - C-Spine x-ray showed no acute process; MRI with and without contrast on 11/23/2016 showed prevertebral soft tissue signal hyperintensity from approximately C4-C7 without demonstrable evidence of postcontrast enhancement involving the vertebrae or intervertebral discs to suggest diskitis or osteomyelitis. Clinically, Pt's neck is supple. ESR =92 on 11/23/2016 - morbid obesity - BMI 39.7 - CT neck revealed esophagus distention with fluid which places the patient at risk for aspiration - GI consult already requested Recommendations: - pending results: blood cultures (NTD) from 11/22/2016 - monitor patient off systemic antibiotics. Pt took renally dosed vancomycin (01/2017-11/23/2016). It was explained that pain of b/l LEs is likely due to her vascular insufficiency and may not readily resolve. - keep LEs elevated to decrease lymphedema (Pt has not been compliant with this instruction, however) - consider evaluation by a sustainability specialist re. pain in her C spine, inpatient or outpatient Care and management d/w patient, nurse Myesha and Dr. Sheets Problems: Additional Assessment/Plan VADIM CURIEL Nov 26, 2016 15:19
[2016-11-26 19:41] VITALS: BP 155/70; RESP 20
[2016-11-26] MEDS: ATORVASTATIN 40 MG TAB PO SCH (20:56)
[2016-11-26] MEDS: INSULIN GLARGINE [LANtus] 3 ML PEN SC SCH (21:07)
[2016-11-27] VITALS (30 sets, daily range): BP systolic 137–205; BP diastolic 55–88; PULSE 77–94; RESP 14–24
[2016-11-27] MEDS: ACCU-CHEK XX SCH (02:00)
[2016-11-27] MEDS: hydrALAzine 20 MG INJ IV PRN ×4 (02:01→16:14)
[2016-11-27] MEDS: morphine 2 MG INJ IV PRN ×3 (03:35→23:04)
[2016-11-27] MEDS: CYCLOBENZAPRINE 10 MG TAB PO SCH ×4 (06:00→18:00)
[2016-11-27] MEDS: DIPHENHYDRAMINE 50 MG CAP PO SCH ×3 (06:00→23:01)
[2016-11-27 07:01] LABS: CALCIUM 8.4 mg/dl (8.4-10.2); CREATININE 5.8 mg/dl (0.44-1.00)
[2016-11-27] MEDS: FUROSEMIDE 40 MG TAB PO SCH ×2 (07:55→18:00)
[2016-11-27] MEDS: PANTOPRAZOLE (EC) 40 MG TAB PO SCH (08:00)
[2016-11-27] MEDS: INSULIN ASPART [NOVOLOG] 3 ML PEN SC SCH ×7 (08:15→23:27)
[2016-11-27] MEDS: SEVELAMER CARBONATE 0.8 GM PKT PO SCH ×3 (08:15→18:00)
[2016-11-27] MEDS: CLOPIDOGREL 75 MG TAB PO SCH (09:00)
[2016-11-27] MEDS: FOLIC ACID 1 MG TAB PO SCH (09:00)
[2016-11-27] MEDS: AMLODIPINE 10 MG TAB PO SCH (09:00)
[2016-11-27] MEDS: MULTIVIT/CA CARB/B CMPLX/FA TAB PO SCH (09:00)
[2016-11-27] MEDS: LOSARTAN 50 MG TAB PO SCH (09:00)
[2016-11-27] MEDS: MINERAL OIL 30ML CUP PO SCH ×3 (09:00→23:00)
[2016-11-27] MEDS: GABAPENTIN 300 MG CAP PO SCH ×2 (09:00→23:01)
[2016-11-27] MEDS: LINAGLIPTIN 5 MG TABLET PO SCH (09:00)
[2016-11-27] MEDS: ASPIRIN (EC) 81 MG TAB PO SCH (09:00)
[2016-11-27] MEDS: DOCUSATE SODIUM 100 MG CAP PO SCH ×2 (09:00→23:01)
[2016-11-27] MEDS: BACITRACIN 0.5%/ZINC 28.35 GM OINT TOP SCH ×2 (10:00→23:02)
[2016-11-27] MEDS ORDERED: LABETALOL HCL 20MG INJ IV ONE (12:00)
[2016-11-27] MEDS: EUCERIN 113 GM CR TOP SCH ×2 (12:26→23:02)
[2016-11-27] MEDS ORDERED: NITROGLYCERIN 2% 1 GM OINT PKT TD SCH (13:00)
[2016-11-27] MEDS: ACETAMINOPHEN 325 MG TAB PO SCH (15:30)
--- NOTE | 2016-11-27 16:56 | CONS ---
Date/Time of Note Date/Time of Note DATE: 11/27/16 TIME: 16:54 Assessment/Plan Assessment/Plan Chief Complaint/Hosp Course Physical exam Constitutional: well developed Head: atraumatic, normocephalic Neck: supple Respiratory: clear to auscultation Cardiovascular: regular rate and rhythm Gastrointestinal: non-tender, soft ext : LLE black eschar with cellulitis improving 56 Y/O Chief Complaint/Hosp Course 1. Left lower extremity cellulitis 2. ESRD.on T/T/S via Left arm fistula s/p permacath removal 3. Severe peripheral vascular disease with left lower extremity ischemia, status post angiogram intervention. 4. Peripheral neuropathy. 5. Depression. 6. Anemia of chronic disease. 7. Hypertension, controlled. 8. DM type II uncontrolled Problems: Additional Assessment/Plan 1. BP uncontrolled pre HD> should get HD today awaiting EGD 2 HD T/T/S; HD today 3 HTN: Increase Coreg to 6.25 bid 4 EGD pending today Problems: Consultation Date/Type/Reason Admit Date/Time Nov 13, 2016 at 18:46 Initial Consult Date 11/14/16 Type of Consultation: Nephrology Referring Provider: VIOLET RUDOLPH Exam/Review of Systems Vital Signs Vitals Vital Signs Date Time Temp Pulse Resp B/P Pulse Ox O2 Delivery O2 Flow Rate FiO2 11/27/16 16:16 78 183/72 11/27/16 14:00 98.4 18 94 Intake and Output 11/26/16 11/26/16 11/27/16 15:00 23:00 07:00 Intake Total 960 ml Balance 960 ml Results Result Diagram: 11/26/16 0528 11/27/16 0541 Results 24 hrs Laboratory Tests Test 11/26/16 17:16 11/26/16 20:55 11/27/16 05:41 11/27/16 09:20 Bedside Glucose 111 94 117 Sodium Level 138 Potassium Level 4.0 Chloride Level 101 Carbon Dioxide Level 26 Anion Gap 15 Blood Urea Nitrogen 48 H Creatinine 5.80 H Glucose Level 112 Calcium Level 8.4 Test 11/27/16 12:23 11/27/16 16:37 Bedside Glucose 113 103 Medications Medications Current Medications Amlodipine Besylate (Norvasc) 10 mg DAILY PO Last administered on 11/26/16t 08: 12; Admin Dose 10 MG; Start 11/14/16 at 09:00 Aspirin (Halfprin) 81 mg DAILY PO Last administered on 11/26/16 08:10; Admin Dose 81 MG; Start 11/14/16 at 09:00 Atorvastatin Calcium (Lipitor) 40 mg QHS PO Last administered on 11/26/16 20: 56; Admin Dose 40 MG; Start 11/14/16 at 21:00 Carvedilol (Coreg) 6.25 mg DAILY PO Last administered on 11/26/16 08:12; Admin Dose 6.25 MG; Start 11/14/16 at 09:00 Clonidine (Catapres) 0.2 mg TID PRN PO SBP>170 Last administered on 11/24/16 14:52; Admin Dose 0.2 MG; Start 11/13/16 at 21:30 Clopidogrel Bisulfate (plaVIX) 75 mg DAILY PO Last administered on 11/26/16 08 :10; Admin Dose 75 MG; Start 11/14/16 at 09:00 Docusate Sodium (Colace) 100 mg BID PO Last administered on 11/26/16 20:56; Admin Dose 100 MG; Start 11/14/16 at 09:00 Folic Acid (Folic Acid) 1 mg DAILY PO Last administered on 11/26/16 08:10; Admin Dose 1 MG; Start 11/14/16 at 09:00 Gabapentin (Neurontin) 300 mg BID PO Last administered on 11/26/16 20:56; Admin Dose 300 MG; Start 11/14/16 at 09:00 Losartan Potassium (Cozaar) 50 mg DAILY PO Last administered on 11/26/16 08:12 ; Admin Dose 50 MG; Start 11/14/16 at 09:00 Multivit/Ca Carb/ B Cmplx/FA/Prenat (Addie-Mikayla) 1 tab DAILY PO Last administered on 11/26/16 08:10; Admin Dose 1 TAB; Start 11/14/16 at 09:00 Morphine Sulfate (morphine) 2 mg Q6H PRN IV PAIN LEVEL 7-10 Last administered on 11/27/16 09:48; Admin Dose 2 MG; Start 11/13/16 at 21:30 Acetaminophen (Tylenol Tab) 650 mg Q6H PRN PO ELEVATED TEMPERATURE Last administered on 11/21/16 12:09; Admin Dose 650 MG; Start 11/13/16 at 21:30 Miscellaneous Information 1 ea NOTE XX ; Start 11/13/16 at 22:00 Glucose (Glutose) 15 gm Q15M PRN PO DECREASED GLUCOSE; Start 11/13/16 at 22:00 Glucose (Glutose) 22.5 gm Q15M PRN PO DECREASED GLUCOSE; Start 11/13/16 at 22: 00 Dextrose (D50w Syringe) 25 ml Q15M PRN IV DECREASED GLUCOSE; Start 11/13/16 at 22:00 Dextrose (D50w Syringe) 50 ml Q15M PRN IV DECREASED GLUCOSE; Start 11/13/16 at 22:00 Glucagon (Glucagen) 1 mg Q15M PRN IM DECREASED GLUCOSE; Start 11/13/16 at 22:00 Glucose (Glutose) 15 gm Q15M PRN BUCCAL DECREASED GLUCOSE; Start 11/13/16 at 22 :00 Diagnostic Test (Pha) (Accu-Chek) 1 ea 02 XX ; Start 11/14/16 at 02:00 Acetaminophen/ Hydrocodone Bitart ([place] (5/325)) 1 tab Q4H PRN PO PAIN LEVEL 4 -6 Last administered on 11/25/16 21:33; Admin Dose 1 TAB; Start 11/14/16 at 13: 00 Linagliptin (Tradjenta) 5 mg DAILY PO Last administered on 11/26/16 08:10; Admin Dose 5 MG; Start 11/14/16 at 12:30 Acetaminophen 325 mg 325 mg TuThSa PO ; Start 11/15/16 at 15:30 Sodium Chloride (NS) 1,000 ml @ 0 mls/hr Q0M PRN IV TO KEEP SBP ABOVE 90; Start 11/14/16 at 16:54 Diphenhydramine HCl (Benadryl) 50 mg Q8 PO Last administered on 11/26/16 20:56 ; Admin Dose 50 MG; Start 11/15/16 at 14:00 Bacitracin (Bacitracin 0.5%/ Zinc Oint) 1 applic BID TOP Last administered on 10:00; Admin Dose 1 APPLIC; Start 11/15/16 at 21:00 Cyclobenzaprine HCl (Flexeril) 5 mg Q6 PO Last administered on 11/26/16 17:18 ; Admin Dose 5 MG; Start 11/16/16 at 18:00 Multi-Ingredient Ointment (Eucerin Cream) 1 applic BID TOP Last administered on 11/27/16 12:26; Admin Dose 1 APPLIC; Start 11/17/16 at 08:49 Alprazolam (Xanax) 0.25 mg Q8H PRN PO ANXIETY Last administered on 11/21/16 17 :50; Admin Dose 0.25 MG; Start 11/21/16 at 18:00 Insulin Glargine (Lantus) 25 unit DAILY@20 SC Last administered on 11/26/16 21 :07; Admin Dose 25 UNIT; Start 11/22/16 at 20:00 Hydralazine HCl (Apresoline) 10 mg Q6H PRN IV ELEVATED SYSTOLIC BP Last administered on 11/27/16 16:14; Admin Dose 10 MG; Start 11/24/16 at 18:30 Mineral Oil (Mineral Oil) 30 ml TID PO Last administered on 11/26/16 20:56; Admin Dose 30 ML; Start 11/24/16 at 23:00 DARELL JAMES MD Nov 27, 2016 16:56
--- NOTE | 2016-11-27 17:13 | PN ---
Date/Time of Note Date/Time of Note DATE: 11/27/16 TIME: 17:08 Assessment/Plan VTE Prophylaxis VTE Prophylaxis Intervention: other Lines/Catheters IV [facility] Type [facility]from [facility] av fistula Urinary Cath still in place: No Assessment/Plan Assessment/Plan -Neck pain, cervical x-rays negative, MRI of the cervical spine demonstrates prevertebral soft tissue signal hyperintensity from approximately C4-C7. -Left lower extremity cellulitis, Dr. Rice is following infection disease consultation, continue antibiotics per ID. -Severe PVD, with multiple vascular intervention including a left lower extremity bypass. Dr. Ruano is following an vascular surgery. -Hemodialysis dependent end-stage renal disease, Dr. Garcia is following in nephrology consultation, continue hemodialysis. -Diabetes mellitus type 2, continue Tradjenta Lantus and NovoLog -S/p orthopedic procedures to RUE with metal prosthetic after bone Fx Further recommendations based on clinical course. Plan of care discussed with Dr. Cordero. Subjective 24 Hr Interval Summary Free Text/Dictation afebrile. awaiting for EGD today. Respiratory: no complaints Cardiovascular: no complaints Gastrointestinal: no complaints Genitourinary: no complaints Musculoskeletal: no complaints Skin: no complaints Neurologic: no complaints Exam/Review of Systems Vital Signs Vitals Vital Signs Date Time Temp Pulse Resp B/P Pulse Ox O2 Delivery O2 Flow Rate FiO2 11/27/16 16:16 78 183/72 11/27/16 14:00 98.4 18 94 Intake and Output 11/26/16 11/26/16 11/27/16 15:00 23:00 07:00 Intake Total 960 ml Balance 960 ml Exam Constitutional: alert, oriented, well developed Respiratory: clear to auscultation, normal air movement Cardiovascular: nl pulses, regular rate and rhythm Gastrointestinal: non-tender, soft Musculoskeletal: nl extremities to inspection Extremities: normal pulses Neurological: nl mental status, nl speech Results Result Diagram: 11/26/16 0528 11/27/16 0541 Results 24 hrs Laboratory Tests Test 11/26/16 17:16 11/26/16 20:55 11/27/16 05:41 11/27/16 09:20 Bedside Glucose 111 94 117 Sodium Level 138 Potassium Level 4.0 Chloride Level 101 Carbon Dioxide Level 26 Anion Gap 15 Blood Urea Nitrogen 48 H Creatinine 5.80 H Glucose Level 112 Calcium Level 8.4 Test 8/24/17 12:23 11/27/16 16:37 Bedside Glucose 113 103 Medications Medications Current Medications Amlodipine Besylate (Norvasc) 10 mg DAILY PO Last administered on 11/26/16 08: 12; Admin Dose 10 MG; Start 11/14/16 at 09:00 Aspirin (Halfprin) 81 mg DAILY PO Last administered on 11/26/16 08:10; Admin Dose 81 MG; Start 11/14/16 at 09:00 Atorvastatin Calcium (Lipitor) 40 mg QHS PO Last administered on 11/26/16 20: 56; Admin Dose 40 MG; Start 11/14/16 at 21:00 Clonidine (Catapres) 0.2 mg TID PRN PO SBP>170 Last administered on 11/24/16 14:52; Admin Dose 0.2 MG; Start 11/13/16 at 21:30 Clopidogrel Bisulfate (plaVIX) 75 mg DAILY PO Last administered on 11/26/16 08 :10; Admin Dose 75 MG; Start 11/14/16 at 09:00 Docusate Sodium (Colace) 100 mg BID PO Last administered on 11/26/16 20:56; Admin Dose 100 MG; Start 11/14/16 at 09:00 Folic Acid (Folic Acid) 1 mg DAILY PO Last administered on 11/26/16 08:10; Admin Dose 1 MG; Start 11/14/16 at 09:00 Gabapentin (Neurontin) 300 mg BID PO Last administered on 11/26/16 20:56; Admin Dose 300 MG; Start 11/14/16 at 09:00 Losartan Potassium (Cozaar) 50 mg DAILY PO Last administered on 11/26/16 08:12 ; Admin Dose 50 MG; Start 11/14/16 at 09:00 Multivit/Ca Carb/ B Cmplx/FA/Prenat (Addie-Mikayla) 1 tab DAILY PO Last administered on 11/26/16 08:10; Admin Dose 1 TAB; Start 11/14/16 at 09:00 Morphine Sulfate (morphine) 2 mg Q6H PRN IV PAIN LEVEL 7-10 Last administered on 11/27/16 09:48; Admin Dose 2 MG; Start 11/13/16 at 21:30 Acetaminophen (Tylenol Tab) 650 mg Q6H PRN PO ELEVATED TEMPERATURE Last administered on 11/21/16 12:09; Admin Dose 650 MG; Start 11/13/16 at 21:30 Miscellaneous Information 1 ea NOTE XX ; Start 11/13/16 at 22:00 Glucose (Glutose) 15 gm Q15M PRN PO DECREASED GLUCOSE; Start 11/13/16 at 22:00 Glucose (Glutose) 22.5 gm Q15M PRN PO DECREASED GLUCOSE; Start 11/13/16 at 22: 00 Dextrose (D50w Syringe) 25 ml Q15M PRN IV DECREASED GLUCOSE; Start 11/13/16 at 22:00 Dextrose (D50w Syringe) 50 ml Q15M PRN IV DECREASED GLUCOSE; Start 11/13/16 at 22:00 Glucagon (Glucagen) 1 mg Q15M PRN IM DECREASED GLUCOSE; Start 11/13/16 at 22:00 Glucose (Glutose) 15 gm Q15M PRN BUCCAL DECREASED GLUCOSE; Start 11/13/16 at 22 :00 Diagnostic Test (Pha) (Accu-Chek) 1 ea 02 XX ; Start 11/14/16 at 02:00 Acetaminophen/ Hydrocodone Bitart ([place] (5/325)) 1 tab Q4H PRN PO PAIN LEVEL 4 -6 Last administered on 11/25/16 21:33; Admin Dose 1 TAB; Start 11/14/16 at 13: 00 Linagliptin (Tradjenta) 5 mg DAILY PO Last administered on 11/26/16 08:10; Admin Dose 5 MG; Start 11/14/16 at 12:30 Acetaminophen 325 mg 325 mg TuThSa PO ; Start 11/15/16 at 15:30 Sodium Chloride (NS) 1,000 ml @ 0 mls/hr Q0M PRN IV TO KEEP SBP ABOVE 90; Start 11/14/16 at 16:54 Diphenhydramine HCl (Benadryl) 50 mg Q8 PO Last administered on 11/26/16 20:56 ; Admin Dose 50 MG; Start 11/15/16 at 14:00 Bacitracin (Bacitracin 0.5%/ Zinc Oint) 1 applic BID TOP Last administered on 10:00; Admin Dose 1 APPLIC; Start 11/15/16 at 21:00 Cyclobenzaprine HCl (Flexeril) 5 mg Q6 PO Last administered on 11/26/16 17:18 ; Admin Dose 5 MG; Start 11/16/16 at 18:00 Multi-Ingredient Ointment (Eucerin Cream) 1 applic BID TOP Last administered on 11/27/16 12:26; Admin Dose 1 APPLIC; Start 11/17/16 at 08:49 Alprazolam (Xanax) 0.25 mg Q8H PRN PO ANXIETY Last administered on 11/21/16 17 :50; Admin Dose 0.25 MG; Start 11/21/16 at 18:00 Insulin Glargine (Lantus) 25 unit DAILY@20 SC Last administered on 11/26/16 21 :07; Admin Dose 25 UNIT; Start 11/22/16 at 20:00 Hydralazine HCl (Apresoline) 10 mg Q6H PRN IV ELEVATED SYSTOLIC BP Last administered on 11/27/16 16:14; Admin Dose 10 MG; Start 11/24/16 at 18:30 Mineral Oil (Mineral Oil) 30 ml TID PO Last administered on 11/26/16 20:56; Admin Dose 30 ML; Start 11/24/16 at 23:00 Carvedilol (Coreg) 6.25 mg BID PO ; Start 11/27/16 at 21:00 VIOLET RUDOLPH Nov 27, 2016 17:13 VIOLET RUDOLPH Nov 27, 2016 17:13
--- NOTE | 2016-11-27 18:04 | OPPN ---
Date/Time of Note Date/Time of Note DATE: 11/27/16 TIME: 17:59 Proc Note GI Procedure date: Nov 27, 2016 Pre-procedure Diagnosis Patient presenting with a history of dysphagia dilated esophagus on the CAT scan Post-procedure Diagnosis Mildly dilated esophagus and multiple distal erosive lesions in the distal esophagus Operation Performed EGD Surgeon: JEOVANY DIAL MD Anesthesiologist: AUDREY MANCINI MD Estimated blood loss: none Transfusion Required: no Specimens Distal esophageal biopsies Complications: no Complications None Pt Condition post procedure: stable Indications History of dysphagia and a dilated esophagus on the CAT scan Operative\Procedure Findings After the informed written consent is obtained patient was ostial in the left lateral side. Intravenous anesthesia was given by anesthesiology Dr. Kwnog,. When the patient become somnolent Olympus video upper endoscope was introduced into the oropharynx and then into the esophagus. Esophagus showed multiple distal esophageal erosions Mildly dilated esophagus noted multiple biopsies were obtained from the distal esophagus [place] with the stem was advanced into the stomach into the stomach appeared normal Minimal amount of regurgitation of the fluid was noted from the duodenum into the stomach no obvious obstruction of ulcer disease noted Scope with this and was withdrawn and the procedure was terminated plan recommend continue Protonix 40 mg p.o. twice daily recommend Reglan 10 mg half an hour before meals and at bedtime Wait for the pathology report cc JEOVANY Miller MD Nov 27, 2016 18:04
[2016-11-27] MEDS ORDERED: FENTAnyl 50 MCG/ML VIAL ONE (18:10)
[2016-11-27] MEDS ORDERED: PROPOFOL 20 ML ONE (18:10)
[2016-11-27] MEDS ORDERED: MIDAZOLAM 1 MG/ML 2 ML INJ ONE (18:11)
[2016-11-27] MEDS ORDERED: HYDROmorphONE 1 MG/ML SYG IV STA (18:32)
[2016-11-27] MEDS ORDERED: HYDROmorphONE (0.2 MG/ML) 10ML SYG IV ONE (18:36)
[2016-11-27] MEDS: HYDROCODONE/APAP (5/325) TAB PO PRN (20:33)
[2016-11-27] MEDS: ATORVASTATIN 40 MG TAB PO SCH (23:00)
[2016-11-27] MEDS: INSULIN GLARGINE [LANtus] 3 ML PEN SC SCH (23:27)
[2016-11-28] MEDS: CYCLOBENZAPRINE 10 MG TAB PO SCH ×3 (00:16→12:19)
[2016-11-28] MEDS: ACCU-CHEK XX SCH (01:33)
[2016-11-28] MEDS: HYDROCODONE/APAP (5/325) TAB PO PRN (03:07)
[2016-11-28 06:01] LABS: BASOPHILS % 0.5 % (0.0-2.0); EOSINOPHILS # 0.2 10^3/ul (0.0-0.5); EOSINOPHILS % 3.9 % (0.0-7.0); HEMOGLOBIN 8.1 g/dl (12.0-16.0); LYMPHOCYTES # 1.1 10^3/ul (0.8-2.9); LYMPHOCYTES % 26.1 % (15.0-51.0); MEAN CORPUSCULAR HEMOGLOBIN 31.4 pg (29.0-33.0); MEAN CORPUSCULAR HGB CONC 31.2 g/dl (32.0-37.0); MEAN CORPUSCULAR VOLUME 100.8 fl (82.0-101.0); MEAN PLATELET VOLUME 10.6 fl (7.4-10.4); MONOCYTE # 0.5 10^3/ul (0.3-0.9); MONOCYTES % 11.7 % (0.0-11.0); NEUTROPHILS % 57.8 % (39.0-77.0); PLATELET COUNT 192 10^3/UL (140-415); RED BLOOD COUNT 2.58 10^6/ul (4.20-5.40); RED CELL DISTRIBUTION WIDTH 14.9 % (11.5-14.5); WHITE BLOOD COUNT 4.1 10^3/ul (4.8-10.8)
[2016-11-28] MEDS: ACETAMINOPHEN 325 MG TAB PO PRN (06:20)
[2016-11-28] MEDS: DIPHENHYDRAMINE 50 MG CAP PO SCH (06:21)
[2016-11-28] MEDS: FUROSEMIDE 40 MG TAB PO SCH (06:25)
[2016-11-28 06:38] LABS: CALCIUM 8.7 mg/dl (8.4-10.2); CREATININE 4.3 mg/dl (0.44-1.00); POTASSIUM 3.9 mmol/L (3.5-5.1)
[2016-11-28 07:38] VITALS: BP 173/71; RESP 18
[2016-11-28] MEDS: INSULIN ASPART [NOVOLOG] 3 ML PEN SC SCH ×4 (08:15→12:13)
[2016-11-28] MEDS: morphine 2 MG INJ IV PRN (08:31)
[2016-11-28] MEDS: SEVELAMER CARBONATE 0.8 GM PKT PO SCH ×2 (08:36→12:19)
[2016-11-28] MEDS: MINERAL OIL 30ML CUP PO SCH ×2 (08:36→12:18)
[2016-11-28] MEDS: EUCERIN 113 GM CR TOP SCH (08:36)
[2016-11-28] MEDS: ASPIRIN (EC) 81 MG TAB PO SCH (08:37)
[2016-11-28] MEDS: DOCUSATE SODIUM 100 MG CAP PO SCH (08:37)
[2016-11-28] MEDS: LOSARTAN 50 MG TAB PO SCH (08:37)
[2016-11-28] MEDS: PANTOPRAZOLE (EC) 40 MG TAB PO SCH (08:37)
[2016-11-28] MEDS: FOLIC ACID 1 MG TAB PO SCH (08:37)
[2016-11-28] MEDS: GABAPENTIN 300 MG CAP PO SCH (08:37)
[2016-11-28] MEDS: MULTIVIT/CA CARB/B CMPLX/FA TAB PO SCH (08:37)
[2016-11-28] MEDS: LINAGLIPTIN 5 MG TABLET PO SCH (08:38)
[2016-11-28] MEDS: AMLODIPINE 10 MG TAB PO SCH (08:38)
[2016-11-28] MEDS: CLOPIDOGREL 75 MG TAB PO SCH (08:38)
[2016-11-28] MEDS: BACITRACIN 0.5%/ZINC 28.35 GM OINT TOP SCH (08:39)
--- NOTE | 2016-11-28 11:15 | CONS ---
CORONA HOLLIS REWARDS CONSULTANT 11/28/16 1115: Date/Time of Note Date/Time of Note DATE: 11/28/16 TIME: 11:10 Assessment/Plan Assessment/Plan Chief Complaint/Hosp Course assessment/impression: - skin and soft tissue infection of LLE with eschar. CT was negative for osteomyelitis. Improved - chronically severe pain of LLE, likely multifactorial: skin and soft tissue infection, PVD, lymphadenitis - PVD - s/p bypass of LLE - DM - Hgb A1c 8.8% - h/o OM of b/l feet, s/p amputation of R two toes - diabetic neuropathy - ESRD on HD 3 times a week, now via LUE AVF - s/p R chest wall permacath removal 11/17/2016 - Acute on chronic anemia of chronic disease requiring blood transfusion - CHF and CAD - s/p orthopedic procedures to RUE with metal prosthetic after bone Fx - dry skin and pruritis, which started prior to admission, improved with a moisturizer - possible red man syndrome due to vancomycin; Pt tolerates it with premedication protocol (benadryl, tylenol) - neck pain, upper back pain and shoulder pain - C-Spine x-ray showed no acute process; MRI with and without contrast on 11/23/2016 showed prevertebral soft tissue signal hyperintensity from approximately C4-C7 without demonstrable evidence of postcontrast enhancement involving the vertebrae or intervertebral discs to suggest diskitis or osteomyelitis. Clinically, Pt's neck is supple. ESR =92 on 11/23/2016 - morbid obesity - BMI 39.7 - Mildly dilated esophagus on CT and multiple distal erosive lesions in the distal esophagus per EGD recommendations: - continue to monitor Pt off systemic antibiotic; Pt's s/p renally dosed vancomycin (11/13/2016-11/23/2016). It was explained that pain of b/l LEs is likely due to her vascular insufficiency and may not readily resolve. - keep LEs elevated to decrease lymphedema (Pt has not been compliant with this instruction, however) - consider evaluation by a embroidery specialist re. pain in her C spine, inpatient or outpatient Management d/w patient, PRO Mead, and Dr. Sheets Problems: Consultation Date/Type/Reason Admit Date/Time Nov 13, 2016 at 18:46 Initial Consult Date 8/11/17 Type of Consultation: Infectious Disease Referring Provider: VIOLET RUDOLPH 24 HR Interval Summary Free Text/Dictation S/p EGD with biopsies "I'm doing okay". Pain is tolerable. Denies dysphagia, n/v/d, dysuria. DC planning for home per d/w primary team (Sheri JONES) Exam/Review of Systems Vital Signs Vitals Vital Signs Date Time Temp Pulse Resp B/P Pulse Ox O2 Delivery O2 Flow Rate FiO2 11/28/16 07:38 98.3 81 18 173/71 94 11/27/16 19:31 Nasal Cannula 2.0 Intake and Output 11/27/16 11/27/16 11/28/16 15:00 23:00 07:00 Intake Total 300 ml Output Total 3800 ml Balance -3500 ml Exam Constitutional: alert, obese, oriented, well developed Head: atraumatic, normocephalic Eyes: nl conjunctiva, nl sclera ENMT: nl external ears & nose Neck: supple Respiratory: clear to auscultation Cardiovascular: edema, regular rate and rhythm Gastrointestinal: non-tender, other (obese), soft Musculoskeletal: other (TTP posterior lower neck, bilateral shoulder blades, mid upper back) Extremities: other (LUE AV fistula +bruit/thrill) Neurological: nl mental status Skin: rash or lesions (Small eschar on LLE with mild surrounding which has improved; TTP) Results Pathology 11/27/2016: Distal esophageal biopsy: -- Gastroesophageal mucosa showing reflux associated intestinal (Alford's) metaplasia containing Alcian Blue positive goblet cells (positive Alcian Blue/PAS control concurrently reviewed). -- There is no evidence of dysplasia or malignancy. Result Diagram: 11/28/1651411/28/1615 Results 24 hrs Laboratory Tests Test 11/27/16 12:23 11/27/16 16:37 11/27/16 22:48 11/28/16 01:29 Bedside Glucose 113 103 201 133 Test 11/28/16 05:15 11/28/16 08:13 White Blood Count 4.1 #L Red Blood Count 2.58 L Hemoglobin 8.1 L Hematocrit 26.0 L Mean Corpuscular Volume 100.8 Mean Corpuscular Hemoglobin 31.4 Mean Corpuscular Hemoglobin Concent 31.2 L Red Cell Distribution Width 14.9 H Platelet Count 192 Mean Platelet Volume 10.6 H Neutrophils % 57.8 Lymphocytes % 26.1 Monocytes % 11.7 H Eosinophils % 3.9 Basophils % 0.5 Nucleated Red Blood Cells % 0.0 Neutrophils # (Manual) 2.4 Lymphocytes # 1.1 Monocytes # 0.5 Eosinophils # 0.2 Basophils # 0.0 Nucleated Red Blood Cells # 0.0 Sodium Level 137 Potassium Level 3.9 Chloride Level 96 L Carbon Dioxide Level 30 Anion Gap 15 Blood Urea Nitrogen 33 #H Creatinine 4.30 #H Glucose Level 96 Calcium Level 8.7 Bedside Glucose 133 Medications Medications Current Medications Amlodipine Besylate (Norvasc) 10 mg DAILY PO Last administered on 11/28/16 08: 38; Admin Dose 10 MG; Start 11/14/16 at 09:00 Aspirin (Halfprin) 81 mg DAILY PO Last administered on 11/28/16 08:37; Admin Dose 81 MG; Start 11/14/16 at 09:00 Atorvastatin Calcium (Lipitor) 40 mg QHS PO Last administered on 11/27/16 23: 00; Admin Dose 40 MG; Start 11/14/16 at 21:00 Clonidine (Catapres) 0.2 mg TID PRN PO SBP>170 Last administered on 11/24/16 14:52; Admin Dose 0.2 MG; Start 11/13/16 at 21:30 Clopidogrel Bisulfate (plaVIX) 75 mg DAILY PO Last administered on 11/28/16 08 :38; Admin Dose 75 MG; Start 11/14/16 at 09:00 Docusate Sodium (Colace) 100 mg BID PO Last administered on 11/28/16 08:37; Admin Dose 100 MG; Start 11/14/16 at 09:00 Folic Acid (Folic Acid) 1 mg DAILY PO Last administered on 11/28/16 08:37; Admin Dose 1 MG; Start 11/14/16 at 09:00 Gabapentin (Neurontin) 300 mg BID PO Last administered on 11/28/16 08:37; Admin Dose 300 MG; Start 11/14/16 at 09:00 Losartan Potassium (Cozaar) 50 mg DAILY PO Last administered on 11/28/16 08:37 ; Admin Dose 50 MG; Start 11/14/16 at 09:00 Multivit/Ca Carb/ B Cmplx/FA/Prenat (Addie-Mikayla) 1 tab DAILY PO Last administered on 11/28/16 08:37; Admin Dose 1 TAB; Start 11/14/16 at 09:00 Morphine Sulfate (morphine) 2 mg Q6H PRN IV PAIN LEVEL 7-10 Last administered on 11/28/16 08:31; Admin Dose 2 MG; Start 11/13/16 at 21:30 Acetaminophen (Tylenol Tab) 650 mg Q6H PRN PO ELEVATED TEMPERATURE Last administered on 11/28/16 06:20; Admin Dose 650 MG; Start 11/13/16 at 21:30 Miscellaneous Information 1 ea NOTE XX ; Start 11/13/16 at 22:00 Glucose (Glutose) 15 gm Q15M PRN PO DECREASED GLUCOSE; Start 11/13/16 at 22:00 Glucose (Glutose) 22.5 gm Q15M PRN PO DECREASED GLUCOSE; Start 11/13/16 at 22: 00 Dextrose (D50w Syringe) 25 ml Q15M PRN IV DECREASED GLUCOSE; Start 11/13/16 at 22:00 Dextrose (D50w Syringe) 50 ml Q15M PRN IV DECREASED GLUCOSE; Start 11/13/16 at 22:00 Glucagon (Glucagen) 1 mg Q15M PRN IM DECREASED GLUCOSE; Start 11/13/16 at 22:00 Glucose (Glutose) 15 gm Q15M PRN BUCCAL DECREASED GLUCOSE; Start 11/13/16 at 22 :00 Diagnostic Test (Pha) (Accu-Chek) 1 ea 02 XX Last administered on 11/28/16 01: 33; Admin Dose 1 EA; Start 11/14/16 at 02:00 Acetaminophen/ Hydrocodone Bitart ([place] (5/325)) 1 tab Q4H PRN PO PAIN LEVEL 4 -6 Last administered on 11/28/16 03:07; Admin Dose 1 TAB; Start 11/14/16 at 13: 00 Linagliptin (Tradjenta) 5 mg DAILY PO Last administered on 11/28/16 08:38; Admin Dose 5 MG; Start 11/14/16 at 12:30 Acetaminophen 325 mg 325 mg TuThSa PO ; Start 11/15/16 at 15:30 Sodium Chloride (NS) 1,000 ml @ 0 mls/hr Q0M PRN IV TO KEEP SBP ABOVE 90; Start 11/14/16 at 16:54 Diphenhydramine HCl (Benadryl) 50 mg Q8 PO Last administered on 11/28/16 06:21 ; Admin Dose 50 MG; Start 11/15/16 at 14:00 Bacitracin (Bacitracin 0.5%/ Zinc Oint) 1 applic BID TOP Last administered on 08:39; Admin Dose 1 APPLIC; Start 11/15/16 at 21:00 Cyclobenzaprine HCl (Flexeril) 5 mg Q6 PO Last administered on 11/28/16 06:21 ; Admin Dose 5 MG; Start 11/16/16 at 18:00 Multi-Ingredient Ointment (Eucerin Cream) 1 applic BID TOP Last administered on 11/28/16 08:36; Admin Dose 1 APPLIC; Start 11/17/16 at 08:49 Alprazolam (Xanax) 0.25 mg Q8H PRN PO ANXIETY Last administered on 11/21/16 17 :50; Admin Dose 0.25 MG; Start 11/21/16 at 18:00 Insulin Glargine (Lantus) 25 unit DAILY@20 SC Last administered on 11/27/16 23 :27; Admin Dose 25 UNIT; Start 11/22/16 at 20:00 Hydralazine HCl (Apresoline) 10 mg Q6H PRN IV ELEVATED SYSTOLIC BP Last administered on 11/27/16 16:14; Admin Dose 10 MG; Start 11/24/16 at 18:30 Mineral Oil (Mineral Oil) 30 ml TID PO Last administered on 11/28/16 08:36; Admin Dose 30 ML; Start 11/24/16 at 23:00 Carvedilol (Coreg) 6.25 mg BID PO Last administered on 11/28/16 08:38; Admin Dose 6.25 MG; Start 11/27/16 at 21:00 ALEXANDER SHEETS M.D. 11/29/16 2125: Assessment/Plan Assessment/Plan Additional Assessment/Plan [place] attestation: I discussed the management with ROBERT Hollis and agree with above Exam/Review of Systems Results Result Diagram: 11/28/16 0515 11/28/16 0515 CORONA HOLLIS NP Nov 28, 2016 11:15 ALEXANDER SHEETS M.D. Nov 29, 2016 21:25
[2016-11-28] MEDS ORDERED: LANT3I SC (11:33)
[2016-11-28] MEDS ORDERED: LINA5TAB PO (11:33)
[2016-11-28] MEDS ORDERED: NOVO3I SC (11:33)
[2016-11-28] MEDS ORDERED: HYDR-3498 PO (11:33)
[2016-11-28] MEDS ORDERED: PANT40TA4 PO (11:33)
--- NOTE | 2016-11-28 12:14 | CONS ---
Date/Time of Note Date/Time of Note DATE: 11/28/16 TIME: 12:12 Assessment/Plan Assessment/Plan Chief Complaint/Hosp Course 1. Left lower extremity cellulitis, resolving 2. ESRD. 3. Severe peripheral vascular disease with left lower extremity ischemia, status post angiogram intervention. 4. Peripheral neuropathy. 5. Depression. 6. Anemia of chronic disease. 7. Hypertension, controlled. 8. DM type II controlled Problems: Additional Assessment/Plan 1. Pending discharge 2. continue HD outpatient Consultation Date/Type/Reason Admit Date/Time Nov 13, 2016 at 18:46 Initial Consult Date 11/13/2016 Type of Consultation: nephrology Reason for Consultation Dr Garcia Referring Provider: VIOLET RUDOLPH Exam/Review of Systems Vital Signs Vitals Vital Signs Date Time Temp Pulse Resp B/P Pulse Ox O2 Delivery O2 Flow Rate FiO2 11/28/16 07:38 98.3 81 18 173/71 94 11/27/16 19:31 Nasal Cannula 2.0 Intake and Output 11/27/16 11/27/16 11/28/16 15:00 23:00 07:00 Intake Total 300 ml Output Total 3800 ml Balance -3500 ml Exam Constitutional: alert, oriented Musculoskeletal: nl extremities to inspection (with chronic changes) Results Result Diagram: 11/28/16 0515 11/28/16 0515 Results 24 hrs Laboratory Tests Test 11/27/16 12:23 11/27/16 16:37 11/27/16 22:48 11/28/16 01:29 Bedside Glucose 113 103 201 133 Test 11/28/16 05:15 11/28/16 08:13 11/28/16 12:07 White Blood Count 4.1 #L Red Blood Count 2.58 L Hemoglobin 8.1 L Hematocrit 26.0 L Mean Corpuscular Volume 100.8 Mean Corpuscular Hemoglobin 31.4 Mean Corpuscular Hemoglobin Concent 31.2 L Red Cell Distribution Width 14.9 H Platelet Count 192 Mean Platelet Volume 10.6 H Neutrophils % 57.8 Lymphocytes % 26.1 Monocytes % 11.7 H Eosinophils % 3.9 Basophils % 0.5 Nucleated Red Blood Cells % 0.0 Neutrophils # (Manual) 2.4 Lymphocytes # 1.1 Monocytes # 0.5 Eosinophils # 0.2 Basophils # 0.0 Nucleated Red Blood Cells # 0.0 Sodium Level 137 Potassium Level 3.9 Chloride Level 96 L Carbon Dioxide Level 30 Anion Gap 15 Blood Urea Nitrogen 33 #H Creatinine 4.30 #H Glucose Level 96 Calcium Level 8.7 Bedside Glucose 133 88 Medications Medications Current Medications Amlodipine Besylate (Norvasc) 10 mg DAILY PO Last administered on 11/28/16 08: 38; Admin Dose 10 MG; Start 11/14/16 at 09:00 Aspirin (Halfprin) 81 mg DAILY PO Last administered on 11/28/16 08:37; Admin Dose 81 MG; Start 11/14/16 at 09:00 Atorvastatin Calcium (Lipitor) 40 mg QHS PO Last administered on 11/27/16 23: 00; Admin Dose 40 MG; Start 11/14/16 at 21:00 Clonidine (Catapres) 0.2 mg TID PRN PO SBP>170 Last administered on 11/24/16 14:52; Admin Dose 0.2 MG; Start 11/13/16 at 21:30 Clopidogrel Bisulfate (plaVIX) 75 mg DAILY PO Last administered on 11/28/16 08 :38; Admin Dose 75 MG; Start 11/14/16 at 09:00 Docusate Sodium (Colace) 100 mg BID PO Last administered on 11/28/16 08:37; Admin Dose 100 MG; Start 11/14/16 at 09:00 Folic Acid (Folic Acid) 1 mg DAILY PO Last administered on 11/28/16 08:37; Admin Dose 1 MG; Start 11/14/16 at 09:00 Gabapentin (Neurontin) 300 mg BID PO Last administered on 11/28/16 08:37; Admin Dose 300 MG; Start 11/14/16 at 09:00 Losartan Potassium (Cozaar) 50 mg DAILY PO Last administered on 11/28/16 08:37 ; Admin Dose 50 MG; Start 11/14/16 at 09:00 Multivit/Ca Carb/ B Cmplx/FA/Prenat (Addie-Mikayla) 1 tab DAILY PO Last administered on 11/28/16 08:37; Admin Dose 1 TAB; Start 11/14/16 at 09:00 Morphine Sulfate (morphine) 2 mg Q6H PRN IV PAIN LEVEL 7-10 Last administered on 11/28/16 08:31; Admin Dose 2 MG; Start 11/13/16 at 21:30 Acetaminophen (Tylenol Tab) 650 mg Q6H PRN PO ELEVATED TEMPERATURE Last administered on 11/28/16 06:20; Admin Dose 650 MG; Start 11/13/16 at 21:30 Miscellaneous Information 1 ea NOTE XX ; Start 11/13/16 at 22:00 Glucose (Glutose) 15 gm Q15M PRN PO DECREASED GLUCOSE; Start 11/13/16 at 22:00 Glucose (Glutose) 22.5 gm Q15M PRN PO DECREASED GLUCOSE; Start 11/13/16 at 22: 00 Dextrose (D50w Syringe) 25 ml Q15M PRN IV DECREASED GLUCOSE; Start 11/13/16 at 22:00 Dextrose (D50w Syringe) 50 ml Q15M PRN IV DECREASED GLUCOSE; Start 11/13/16 at 22:00 Glucagon (Glucagen) 1 mg Q15M PRN IM DECREASED GLUCOSE; Start 11/13/16 at 22:00 Glucose (Glutose) 15 gm Q15M PRN BUCCAL DECREASED GLUCOSE; Start 11/13/16 at 22 :00 Diagnostic Test (Pha) (Accu-Chek) 1 ea 02 XX Last administered on 11/28/16 01: 33; Admin Dose 1 EA; Start 11/14/16 at 02:00 Acetaminophen/ Hydrocodone Bitart ([place] (5/325)) 1 tab Q4H PRN PO PAIN LEVEL 4 -6 Last administered on 11/28/16 03:07; Admin Dose 1 TAB; Start 11/14/16 at 13: 00 Linagliptin (Tradjenta) 5 mg DAILY PO Last administered on 11/28/16 08:38; Admin Dose 5 MG; Start 11/14/16 at 12:30 Acetaminophen 325 mg 325 mg TuThSa PO ; Start 11/15/16 at 15:30 Sodium Chloride (NS) 1,000 ml @ 0 mls/hr Q0M PRN IV TO KEEP SBP ABOVE 90; Start 11/14/16 at 16:54 Diphenhydramine HCl (Benadryl) 50 mg Q8 PO Last administered on 11/28/16 06:21 ; Admin Dose 50 MG; Start 11/15/16 at 14:00 Bacitracin (Bacitracin 0.5%/ Zinc Oint) 1 applic BID TOP Last administered on 08:39; Admin Dose 1 APPLIC; Start 11/15/16 at 21:00 Cyclobenzaprine HCl (Flexeril) 5 mg Q6 PO Last administered on 11/28/16 06:21 ; Admin Dose 5 MG; Start 11/16/16 at 18:00 Multi-Ingredient Ointment (Eucerin Cream) 1 applic BID TOP Last administered on 11/28/16 08:36; Admin Dose 1 APPLIC; Start 11/17/16 at 08:49 Alprazolam (Xanax) 0.25 mg Q8H PRN PO ANXIETY Last administered on 11/21/16 17 :50; Admin Dose 0.25 MG; Start 11/21/16 at 18:00 Insulin Glargine (Lantus) 25 unit DAILY@20 SC Last administered on 11/27/16 23 :27; Admin Dose 25 UNIT; Start 11/22/16 at 20:00 Hydralazine HCl (Apresoline) 10 mg Q6H PRN IV ELEVATED SYSTOLIC BP Last administered on 11/27/16 16:14; Admin Dose 10 MG; Start 11/24/16 at 18:30 Mineral Oil (Mineral Oil) 30 ml TID PO Last administered on 11/28/16 08:36; Admin Dose 30 ML; Start 11/24/16 at 23:00 Carvedilol (Coreg) 6.25 mg BID PO Last administered on 11/28/16 08:38; Admin Dose 6.25 MG; Start 11/27/16 at 21:00 KUNAL RAMOS Nov 28, 2016 12:13
[2016-11-28 14:19] VITALS: BP 163/70; RESP 18
--- NOTE | 2016-11-29 07:12 | DS ---
Date/Time of Note Date/Time of Note DATE: 11/29/16 TIME: 07:07 Discharge Summary Admission/Discharge Info Admit Date/Time Nov 13, 2016 at 18:46 Discharge Date/Time Nov 28, 2016 at 14:55 Patient Condition: Stable Hx of Present Illness 56-year-old very pleasant woman with multiple past medical/surgical history is admitted with complains of left medial mid leg pain, swelling, redness 2 weeks. Patient had been taking antibiotis on irregular basis and has failed the effectiveness. She was seen and recommended for admission by Dr. Ruano at [facility]. She has c/o pain in the left leg with ambulation but denies any calf swelling, she denies fevers or chills, no chest pain or shortness of breath, no vomiting or diarrhea. Patient does have a long history of diabetes mellitus and previous right toe amputation secondary to infection. Patient has end-stage kidney disease and missed her HD today as she is on TTS schedule for HD at [facility]. Hospital Course -Neck pain, cervical x-rays negative, MRI of the cervical spine demonstrates prevertebral soft tissue signal hyperintensity from approximately C4-C7, CT neck is negative for any mass or fluid collection. - Mildly dilated esophagus and multiple distal erosive lesions in the distal esophagus per EGD by Dr Canada -Left lower extremity cellulitis, Dr. Rice is following infection disease consultation, completed treatment with antibiotics. -Severe PVD, with multiple vascular intervention including a left lower extremity bypass. Dr. Ruano is following an vascular. -Hemodialysis dependent end-stage renal disease, Dr. Garcia is following in nephrology consultation, continue hemodialysis. -Diabetes mellitus type 2, continue Tradjenta Lantus and NovoLog -S/p orthopedic procedures to RUE with metal prosthetic after bone Fx Home Meds Active Scripts Hydrocodone Bit-Acetaminophen (Hydrocodone Bit-APAP) 5-325MG Tablet, 1 TAB PO Q4H Y for PAIN LEVEL 4-6, #30 TAB Prov:ANTHONY DUPREE 11/28/16 Insulin Aspart* (Novolog Insulin Pen*) 100 Unit/Ml Soln, 10 UNIT SC WITH MEALS for 30 Days Prov:ANTHONY DUPREE 11/28/16 Linagliptin (TRADJENTA) 5 Mg Tablet, 5 MG PO DAILY for 30 Days, TAB Prov:ANTHONY DUPREE 11/28/16 Insulin Glargine* (Lantus*) 100 Unit/Ml Soln, 25 UNIT SC DAILY@20 for 30 Days Prov:ANTHONY DUPREE 11/28/16 Pantoprazole* (Pantoprazole*) 40 Mg Tablet.dr, 40 MG PO AC BREAKFAST for 30 Days , TAB Prov:ANTHONY DUPREE 11/28/16 Reported Medications Sevelamer Carbonate* (Renvela*) 800 Mg Tablet, 0.8 GM PO WITH MEALS, TAB 11/13/16 Multivit/Ca Carb/B Cmplx/Fa* (Addie-Mikayla*) 1 Tab Tab, 1 TAB PO DAILY, TAB 11/13/16 Docusate Sodium* (Dok*) 100 Mg Tablet, 100 MG PO BID, #60 CAP 11/13/16 Folic Acid* (Folic Acid*) 1 Mg Tablet, 1 MG PO DAILY, TAB 11/13/16 Clonidine Hcl* (Clonidine Hcl*) 0.2 Mg Tablet, 0.2 MG PO TID Y for HTN, TAB 11/13/16 Clopidogrel Bisulfate* (Clopidogrel Bisulfate*) 75 Mg Tablet, 75 MG PO DAILY, # 30 TAB 11/13/16 Carvedilol* (Carvedilol*) 6.25 Mg Tablet, 6.25 MG PO DAILY, #60 TAB 11/13/16 Losartan Potassium* (Losartan Potassium*) 50 Mg Tablet, 50 MG PO DAILY, TAB 11/13/16 Gabapentin* (Gabapentin*) 300 Mg Capsule, 300 MG PO BID, #60 CAP 11/13/16 Furosemide* (Furosemide*) 80 Mg Tablet, 80 MG PO BID, #60 TAB 11/13/16 Atorvastatin* (Atorvastatin*) 40 Mg Tablet, 40 MG PO QHS, #30 TAB 07/03/16 Amlodipine Besylate* (Amlodipine Besylate*) 10 Mg Tablet, 10 MG PO DAILY, #30 TAB 07/03/16 Aspirin* (Aspirin* EC) 81 Mg Tablet.dr, 81 MG PO DAILY, TAB 07/03/16 Alprazolam* (Alprazolam*) 0.25 Mg Tablet, 0.25 MG PO TID Y for ANXIETY, TAB 07/03/16 Discontinued Reported Medications Insulin Glargine* (Lantus*) 100 Unit/Ml Soln, 40 UNIT SC QHS, #1 VIAL 11/13/16 Insulin Lispro (Humalog Kwikpen U-100) 100 Unit/1 Ml Insuln.pen, 0 SQ SLIDING SCALE 11/13/16 Follow-up Plan f/up with Dr Ruano in 1-2 weeks, f/up with HD center for next HD. Primary Care Provider Bernie Diamond Time spent on discharge: > 30 minutes Pending Labs Laboratory Tests Test 11/28/16 08:13 11/28/16 12:07 Bedside Glucose 133mg/dL (70-220) 88mg/dL (70-220) ANTHONY DUPREE Nov 29, 2016 07:12
== END 2016-11-28 14:55 | disposition home or self-care (01) | DRG 602 ==
LOC: E/R 16:50 → MS2 18:46
PROVIDERS: ADMIT Internal Medicine; ATTEND Internal Medicine
PROC: 5A1D60Z (ICD-10-PCS; 2016-11-13)
PROC: 30233N1 Transfusion of Nonautologous Red Blood Cells into Peripheral Vein, Percutaneous Approach (ICD-10-PCS; 2016-11-20)
PROC: 0DB38ZX Excision of Lower Esophagus, Via Natural or Artificial Opening Endoscopic, Diagnostic (ICD-10-PCS; principal; 2016-11-27 18:29)
DX: L03.116 Cellulitis of left lower limb (principal); N18.6 End stage renal disease; I13.2 Hypertensive heart and chronic kidney disease with heart failure and with stage 5 chronic kidney disease, or end stage renal disease; E11.22 Type 2 diabetes mellitus with diabetic chronic kidney disease; E87.5 Hyperkalemia; K22.10 Ulcer of esophagus without bleeding; E11.65 Type 2 diabetes mellitus with hyperglycemia; L97.529 Non-pressure chronic ulcer of other part of left foot with unspecified severity; E11.42 Type 2 diabetes mellitus with diabetic polyneuropathy; Z79.4 Long term (current) use of insulin; Z99.2 Dependence on renal dialysis; I50.9 Heart failure, unspecified; Z68.39 Body mass index [BMI] 39.0-39.9, adult; D63.1 Anemia in chronic kidney disease; I25.10 Atherosclerotic heart disease of native coronary artery without angina pectoris; F41.9 Anxiety disorder, unspecified; K29.70 Gastritis, unspecified, without bleeding; G89.4 Chronic pain syndrome; F32.9 Major depressive disorder, single episode, unspecified; L29.9 Pruritus, unspecified; T36.8X5A Adverse effect of other systemic antibiotics, initial encounter; Z89.421 Acquired absence of other right toe(s); E11.51 Type 2 diabetes mellitus with diabetic peripheral angiopathy without gangrene; Z87.891 Personal history of nicotine dependence; E11.622 Type 2 diabetes mellitus with other skin ulcer; E66.01 Morbid (severe) obesity due to excess calories; E11.319 Type 2 diabetes mellitus with unspecified diabetic retinopathy without macular edema; E78.00 Pure hypercholesterolemia, unspecified; I88.9 Nonspecific lymphadenitis, unspecified
CPT/HCPCS: 36415; 36430; 36590; 70491; 71010; 72040; 72141; 72156; 73590; 73700; 80048; 80061; 80202; 82947; 82962; 83036; 84484; 85025; 85610; 85651; 86850; 86900; 86901; 86920; 87040; 88305; 88313; 90935; 93005; 93970; 96374; 96375; 96376; 97110; 97116; 97161; 97164; 97530; J0360; J1170; J1644; J1815; J1885; J2060; J2250; J2270; J2543; J3010; J3370; J7050; P9016; Q9967

== ENCOUNTER 2017-01-13 12:17 | Inpatient (IN) | payer OTHER ==
[2017-01-13] VITALS (14 sets, daily range): BP systolic 122–181; BP diastolic 59–78; PULSE 65–73; Ht 162.6 cm; Wt 108.1 kg
[~2017-01-13] VITALS: Ht 162.6 cm; Wt 108.1 kg
[~2017-01-13 12:17] MED LIST changes: -CALC0.255 PO; +CARV6.2579 PO; +CLON0.2T5 PO; +CLOP75TA4 PO; +DOCU100T PO; +FOLI-49 PO; +FURO80TA3 PO; +GABA300C16 PO; +HYDR-3498 PO; -HYDR-906 PO; +LANT3I SC; +LINA5TAB PO; +LOSA50TA6 PO; -NAPR220C2 PO; +NEPH PO; +NOVO3I SC; -OMEG500C3 PO; -OMEP20CA16 PO; -OXYC-279 PO; +PANT40TA4 PO
--- NOTE | 2017-01-13 15:45 | ERA ---
ER Documentation Chief Complaint Date/Time DATE: 01/13/17 TIME: 15:45 Chief Complaint sob. due for dailysis today HPI The patient is a 56-year-old female, presenting to the ER because of shortness of breath for the last 3-4 days. She is due for dialysis today. She has intermittent cough for the last 10 days, denies fever, complains of intermittent chest pain with coughing, denies chest pain with exertion/vomiting/ diaphoresis, complains of vague and diffuse abdominal discomfort, denies any vomiting, dysuria, diarrhea, constipation. She does not smoke nor drink Past medical history: Chronic kidney disease, hypertension, peripheral vascular disease, depression, diabetes mellitus Past surgical history: Right vascular surgery, right ovarian surgery ROS All systems reviewed and are negative except as per history of present illness. Medications Home Meds Active Scripts Insulin Aspart* (Novolog Insulin Pen*) 100 Unit/Ml Soln, 10 UNIT SC WITH MEALS for 30 Days Prov:ANTHONY DUPREE 11/28/16 Linagliptin (TRADJENTA) 5 Mg Tablet, 5 MG PO DAILY for 30 Days, TAB Prov:ANTHONY DUPREE 11/28/16 Insulin Glargine* (Lantus*) 100 Unit/Ml Soln, 25 UNIT SC DAILY@20 for 30 Days Prov:ANTHONY DUPREE 11/28/16 Pantoprazole* (Pantoprazole*) 40 Mg Tablet.dr, 40 MG PO AC BREAKFAST for 30 Days , TAB Prov:ANTHONY DUPREE 11/28/16 Reported Medications Albuterol Sulfate* (Ventolin HFA*) 18 Gm Hfa.aer.ad, 2 PUFF INHALATION Q4H, #1 INHALER 01/13/17 Polyethylene Glycol* (Miralax*) 17 Gm Powd.pack, 17 GM PO BID, #60 PACKET 01/13/17 Sevelamer Carbonate* (Renvela*) 800 Mg Tablet, 0.8 GM PO WITH MEALS, TAB 11/13/16 Multivit/Ca Carb/B Cmplx/Fa* (Addie-Mikayla*) 1 Tab Tab, 1 TAB PO DAILY, TAB 11/13/16 Folic Acid* (Folic Acid*) 1 Mg Tablet, 1 MG PO DAILY, TAB 11/13/16 Clonidine Hcl* (Clonidine Hcl*) 0.2 Mg Tablet, 0.2 MG PO TID Y for HTN, TAB 11/13/16 Clopidogrel Bisulfate* (Clopidogrel Bisulfate*) 75 Mg Tablet, 75 MG PO DAILY, # 30 TAB 11/13/16 Carvedilol* (Carvedilol*) 6.25 Mg Tablet, 6.25 MG PO DAILY, #60 TAB 11/13/16 Losartan Potassium* (Losartan Potassium*) 50 Mg Tablet, 50 MG PO DAILY, TAB 11/13/16 Gabapentin* (Gabapentin*) 300 Mg Capsule, 300 MG PO BID, #60 CAP 11/13/16 Furosemide* (Furosemide*) 80 Mg Tablet, 80 MG PO BID, #60 TAB 11/13/16 Atorvastatin* (Atorvastatin*) 40 Mg Tablet, 40 MG PO QHS, #30 TAB 07/03/16 Amlodipine Besylate* (Amlodipine Besylate*) 10 Mg Tablet, 10 MG PO DAILY, #30 TAB 07/03/16 Aspirin* (Aspirin* EC) 81 Mg Tablet.dr, 81 MG PO DAILY, TAB 07/03/16 Discontinued Reported Medications Docusate Sodium* (Dok*) 100 Mg Tablet, 100 MG PO BID, #60 CAP 11/13/16 Alprazolam* (Alprazolam*) 0.25 Mg Tablet, 0.25 MG PO TID Y for ANXIETY, TAB 07/03/16 Discontinued Scripts Hydrocodone Bit-Acetaminophen (Hydrocodone Bit-APAP) 5-325MG Tablet, 1 TAB PO Q4H Y for PAIN LEVEL 4-6, #30 TAB Prov:ANTHONY DUPREE 11/28/16 Allergies Allergies: Coded Allergies: No Known Allergies (Verified Allergy, Unknown, 01/13/17) PMhx/Soc History of Surgery: Yes (S/P LEFT LOWER LEG ANGIOGRAM,BYPASS LT LEG,RIGHT TOE AMPUTATION,RT OVARY SX) Anesthesia Reaction: No Hx Neurological Disorder: Yes (PERIPHERAL NEUROPATHY) Hx Respiratory Disorders: No Hx Cardiac Disorders: Yes (HTN,PVD,ANEMIA) Hx Psychiatric Problems: Yes (DEPRESSION) Hx Miscellaneous Medical Probl: Yes (PVD, DM, ESRD, HTN) Hx Alcohol Use: No Hx Substance Use: No Hx Tobacco Use: Yes Smoking Status: Never smoker Physical Exam Vitals Vital Signs Date Time Temp Pulse Resp B/P Pulse Ox O2 Delivery O2 Flow Rate FiO2 01/13/17 19:02 69 17 126/59 98 Nasal Cannula 1.5 01/13/17 18:04 88 18 174/78 98 Room Air 01/13/17 15:44 Nasal Cannula 2.0 01/13/17 12:23 98.1 74 20 216/90 99 Physical Exam Const: No acute distress. Head: Atraumatic. Eyes: Normal Conjunctiva. ENT: Normal External Ears, Nose and Mouth. Neck: Full range of motion. No meningismus. Resp: Bibasilar crackle Cardio: Regular rate and rhythm. Abd: Soft, non distended, normal bowel sounds, non tender. Skin: No petechiae or rashes. Back: No midline or flank tenderness. Ext: Bilateral leg edema, no calf tenderness Neur: Awake and alert. No focal deficit Psych: Normal Mood and Affect. Result Diagram: 01/13/17 1630 01/13/17 1630 Results 24 hrs Laboratory Tests Test 01/13/17 16:30 White Blood Count 4.710^3/ul Red Blood Count 2.8210^6/ul Hemoglobin 9.6g/dl Hematocrit 29.6% Mean Corpuscular Volume 105.0fl Mean Corpuscular Hemoglobin 34.0pg Mean Corpuscular Hemoglobin Concent 32.4g/dl Red Cell Distribution Width 14.3% Platelet Count 31239^3/UL Mean Platelet Volume 10.3fl Neutrophils % 65.2% Lymphocytes % 22.4% Monocytes % 7.1% Eosinophils % 4.9% Basophils % 0.2% Nucleated Red Blood Cells % 0.0/100WBC Neutrophils # 3.010^3/ul Lymphocytes # 1.010^3/ul Monocytes # 0.310^3/ul Eosinophils # 0.210^3/ul Basophils # 0.010^3/ul Nucleated Red Blood Cells # 0.010^3/ul Prothrombin Time 12.7Sec Prothrombin Time Ratio 1.0 INR International Normalized Ratio 0.95 Activated Partial Thromboplast Time 34.0Sec Urine Color YELLOW Urine Clarity CLEAR Urine pH 8.0 Urine Specific Almo 1.016 Urine Ketones NEGATIVEmg/dL Urine Nitrite NEGATIVEmg/dL Urine Bilirubin NEGATIVEmg/dL Urine Urobilinogen NEGATIVEmg/dL Urine Leukocyte Esterase NEGATIVELeu/ul Urine Microscopic RBC 3/HPF Urine Microscopic WBC 4/HPF Urine Bacteria FEW/HPF Urine Hemoglobin NEGATIVEmg/dL Urine Glucose 3+mg/dL Urine Total Protein 3+mg/dl Sodium Level 144mmol/L Potassium Level 5.3mmol/L Chloride Level 107mmol/L Carbon Dioxide Level 24mmol/L Anion Gap 18 Blood Urea Nitrogen 59mg/dl Creatinine 6.65mg/dl Glucose Level 208mg/dl Calcium Level 7.4mg/dl Total Bilirubin 0.0mg/dl Direct Bilirubin 0.00mg/dl Indirect Bilirubin 0.0mg/dl Aspartate Amino Transf (AST/SGOT) 30IU/L Alanine Aminotransferase (ALT/SGPT) 45IU/L Alkaline Phosphatase 108IU/L Troponin I < 0.012ng/ml Total Protein 6.7g/dl Albumin 3.8g/dl Globulin 2.90g/dl Albumin/Globulin Ratio 1.31 Lipase 134U/L Current Medications Medications (Trade) Dose Ordered Sig/Kayla Route PRN Reason Start Time Stop Time Status Last Admin Dose Admin Morphine Sulfate (morphine) 2 mg ONCE ONCE IV 01/13/17 16:30 01/13/17 16:31 DC 01/13/17 16:52 Ondansetron HCl (Zofran Inj) 4 mg ONCE STAT IV 01/13/17 16:01 01/13/17 16:03 DC 01/13/17 16:52 Morphine Sulfate (morphine) 4 mg ONCE STAT IV 01/13/17 18:06 01/13/17 18:18 DC 01/13/17 18:53 Ondansetron HCl (Zofran Inj) 4 mg ONCE STAT IV 01/13/17 18:06 01/13/17 18:18 DC 01/13/17 18:53 IV Flush (NS 3 ml) 3 ml PER PROTOCOL IV 01/13/17 18:30 Lorazepam (Ativan) 0.5 mg Q6H PRN IV ANXIETY 01/13/17 18:30 Ondansetron HCl (Zofran Inj) 4 mg Q6H PRN IV NAUSEA AND/OR VOMITING 01/13/17 18:30 Nitroglycerin (Nitroglycerin (Sl Tab) 0.4 Mg) 1 tab Q5M PRN SL CHEST PAIN 01/13/17 18:30 Acetaminophen (Tylenol Tab) 650 mg Q6H PRN PO PAIN LEVEL 1-3 OR FEVER 01/13/17 18:30 Morphine Sulfate (morphine) 2 mg Q4H PRN IV PAIN LEVEL 7-10 01/13/17 18:30 Famotidine (Pepcid) 10 mg HS PO 01/13/17 21:00 Heparin Sodium (Porcine) (Heparin (5000 Units/0.5 ml)) 5,000 unit Q12 SC 01/13/17 21:00 Amlodipine Besylate (Norvasc) 10 mg DAILY PO 01/14/17 09:00 Aspirin (Halfprin) 81 mg DAILY PO 01/14/17 09:00 Atorvastatin Calcium (Lipitor) 40 mg QHS PO 01/13/17 21:00 Carvedilol (Coreg) 6.25 mg DAILY PO 01/14/17 09:00 UNV Clonidine (Catapres) 0.2 mg TID PRN PO HTN 01/13/17 19:00 UNV Clopidogrel Bisulfate (plaVIX) 75 mg DAILY PO 01/14/17 09:00 Folic Acid (Folic Acid) 1 mg DAILY PO 01/14/17 09:00 Gabapentin (Neurontin) 300 mg BID PO 01/13/17 21:00 Insulin Aspart (Novolog Insulin Pen) 10 unit WITH MEALS SC 01/14/17 08:00 Insulin Glargine (Lantus) 25 unit DAILY@20 SC 01/13/17 20:00 Linagliptin (Tradjenta) 5 mg DAILY PO 01/14/17 09:00 Multivit/Ca Carb/ B Cmplx/FA/Prenat (Addie-Mikayla) 1 tab DAILY PO 01/14/17 09:00 Pantoprazole (Protonix Tab) 40 mg AC BREAKFAST PO 01/14/17 07:00 Polyethylene Glycol (Miralax) 17 gm BID PO 01/13/17 21:00 Sevelamer Carbonate (Renvela) 0.8 gm WITH MEALS PO 01/14/17 08:00 Miscellaneous Information 1 ea NOTE XX 01/13/17 19:00 Glucose (Glutose) 15 gm Q15M PRN PO DECREASED GLUCOSE 01/13/17 19:00 Glucose (Glutose) 22.5 gm Q15M PRN PO DECREASED GLUCOSE 01/13/17 19:00 Dextrose (D50w Syringe) 25 ml Q15M PRN IV DECREASED GLUCOSE 01/13/17 19:00 Dextrose (D50w Syringe) 50 ml Q15M PRN IV DECREASED GLUCOSE 01/13/17 19:00 Glucagon (Glucagen) 1 mg Q15M PRN IM DECREASED GLUCOSE 01/13/17 19:00 Glucose (Glutose) 15 gm Q15M PRN BUCCAL DECREASED GLUCOSE 01/13/17 19:00 Procedures/[facility] [address] [id number] Radiology Main Line: [phone] DIAGNOSTIC IMAGING REPORT Patient: RINA CAREY : 1960 Age: 56 Sex: F MR #: [id number] DOS: 01/13/17 1601 Ordering MD: BHAVNA GUZMAN MD Location: E/R Room/Bed: PROCEDURE: XR Chest. CLINICAL INDICATION: Shortness of breath. TECHNIQUE: Single frontal view. COMPARISON: 11/13/2016. FINDINGS: The tunneled right internal jugular vein catheter has been removed. There is mild pulmonary edema. The lungs are otherwise clear. The heart is enlarged. There is calcification in the aorta consistent with atherosclerosis. There is no pleural effusion or pneumothorax. There has been prior open reduction and internal fixation of the right humerus with a lateral plate and multiple screws. IMPRESSION: 1. Dialysis catheter removed. 2. Mild pulmonary edema. 3. Cardiomegaly and atherosclerosis. 4. Prior open reduction internal fixation of the right humerus. RPTAT: QQ .Eric Oreilly MD, MD Date Time Electronically viewed and signed by .Eric Oreilly MD, MD on 01/13/2017 17:05 .R/ CC: BHAVNA GUZMAN MD EKG: Read by emergency physician Rate/Rhythm: Normal Sinus Rhythm 75 beats/min QRS, ST, T-waves: No ST elevation, no T inversion, Septal Q waves, prolonged QT Impression: Abnormal EKG MEDICAL MAKING DECISION: The patient is a 56-year-old female, presenting with acute fluid overload, acute hyperkalemia, acute hypocalcemia, acute accelerated hypertension. She was treated with morphine 2 mg IV then 4 mg IV for her pain and Zofran 4 mg IV for nausea with good response and her blood pressure improved. The differential diagnoses considered include but are not limited to asthma, COPD, pneumonia, pulmonary embolus, pleural effusion, congestive heart failure. Critical Care: Time: 35 minutes excluding all billable procedures. Treatments/Evaluations: Close monitoring and treatment of unstable vital signs, cardiorespiratory, and neurologic status, while maintaining tight balance of fluid, respiratory, and cardiac interventions. Consultation: I discussed the patient with her counseling services manager Dr. Garcia at 4:45 PM in the ER who started emergent dialysis for the patient. Departure Diagnosis: Primary Impression: Fluid overload Additional Impressions: Hyperkalemia Hypocalcemia Accelerated hypertension Anemia Condition: Stable Comments I discussed the findings with the patient. I discussed the patient with her physician Dr. Cordero at 6 pm who was made aware of the lab, the treatment, the patient condition. The patient is admitted to BHAVNA Webb MD Jan 13, 2017 15:45
[2017-01-13] MEDS ORDERED: ONDANSETRON 4 MG INJ IV STA ×2 (16:01→18:06)
[2017-01-13] MEDS ORDERED: morphine 2 MG INJ IV ONE (16:30)
[2017-01-13 16:45] LABS: BASOPHILS % 0.2 % (0.0-2.0); EOSINOPHILS # 0.2 10^3/ul (0.0-0.5); EOSINOPHILS % 4.9 % (0.0-7.0); HEMATOCRIT 29.6 % (37.0-47.0); HEMOGLOBIN 9.6 g/dl (12.0-16.0); LYMPHOCYTES % 22.4 % (15.0-51.0); MEAN CORPUSCULAR HGB CONC 32.4 g/dl (32.0-37.0); MEAN PLATELET VOLUME 10.3 fl (7.4-10.4); MONOCYTE # 0.3 10^3/ul (0.3-0.9); MONOCYTES % 7.1 % (0.0-11.0); NEUTROPHILS % 65.2 % (39.0-77.0); PLATELET COUNT 247 10^3/UL (140-415); RED BLOOD COUNT 2.82 10^6/ul (4.20-5.40); RED CELL DISTRIBUTION WIDTH 14.3 % (11.5-14.5); WHITE BLOOD COUNT 4.7 10^3/ul (4.8-10.8)
[2017-01-13 17:01] LABS: INR 0.95; PROTIME 12.7 Sec (12.2-14.2)
--- NOTE | 2017-01-13 17:05 | RADRPT ---
PROCEDURE: XR Chest. CLINICAL INDICATION: Shortness of breath. TECHNIQUE: Single frontal view. COMPARISON: 11/13/2016. FINDINGS: The tunneled right internal jugular vein catheter has been removed. There is mild pulmonary edema. T he lungs are otherwise clear. The heart is enlarged. There is calcification in the aorta consistent with atherosclerosis. There is no pleural effusion or pneumothorax. There has been prior open reduction and internal fixation of the right humerus with a lateral plate and multiple screws. IMPRESSION: 1. Dialysis catheter removed. 2. Mild pulmonary edema. 3. Cardiomegaly and atherosclerosis. 4. Prior open reduction internal fixation of the right humerus. RPTAT: QQ .Eric Oreilly MD, MD Date Time Electronically viewed and signed by .Eric Oreilly MD, on 01/13/2017 17:05 .R/
[2017-01-13 17:07] LABS: ALANINE AMINOTRANSFERASE 45 IU/L (13-69); ALBUMIN 3.8 g/dl (3.3-4.9); ALBUMIN/GLOBULIN RATIO 1.31; ALKALINE PHOSPHATASE 108 IU/L (42-121); ANION GAP 18 (8-16); ASPARTATE AMINO TRANSFERASE 30 IU/L (15-46); BLOOD UREA NITROGEN 59 mg/dl (7-20); CALCIUM 7.4 mg/dl (8.4-10.2); CARBON DIOXIDE 24 mmol/L (21-31); CHLORIDE 107 mmol/L (97-110); CREATININE 6.65 mg/dl (0.44-1.00); GLUCOSE 208 mg/dl (70-220); POTASSIUM 5.3 mmol/L (3.5-5.1); SODIUM 144 mmol/L (135-144); TOTAL PROTEIN 6.7 g/dl (6.1-8.1)
[2017-01-13 17:20] LABS: TROPONIN-I < 0.012 ng/ml (0.00-0.12)
[2017-01-13 17:44] LABS: ADD UMIC YES; UR ASCORBIC ACID NEGATIVE (NEGATIVE); UR BACTERIA FEW /HPF (NONE SEEN); UR BILIRUBIN (Dip) NEGATIVE (NEGATIVE); UR BLOOD (Dip) NEGATIVE (NEGATIVE); UR CLARITY CLEAR (CLEAR); UR COLOR YELLOW (YELLOW); UR GLUCOSE (Dip) 3+ mg/dL (NEGATIVE); UR KETONES (Dip) NEGATIVE (NEGATIVE); UR LEUKOCYTE ESTERASE (Dip) NEGATIVE Leu/ul (NEGATIVE); UR NITRITE (Dip) NEGATIVE (NEGATIVE); UR RBC 3 /HPF (0-5); UR SPECIFIC GRAVITY (Dip) 1.016 (1.003-1.030); UR TOTAL PROTEIN (Dip) 3+ mg/dl (NEGATIVE); UR UROBILINOGEN (Dip) NEGATIVE (NEGATIVE)
--- NOTE | 2017-01-13 17:49 | QN ---
Documentation Comment [id number] RENAL A/P ESRD HTN DM ANASARCA ASHD ACUTE HYPOXIC RES FAILURE EDEMA PLAN HD ZOFIA REAL MD Jan 13, 2017 17:49
[2017-01-13] MEDS ORDERED: morphine 4 MG/ML VIAL IV STA (18:06)
--- NOTE | 2017-01-13 18:16 | HP ---
Date/Time of Note Date/Time of Note DATE: 01/13/17 TIME: 18:08 Assessment/Plan VTE Prophylaxis VTE Prophylaxis Intervention: SCD's Assessment/Plan Assessment/Plan -Acute respiratory failure secondary to pulmonary edema -Hemodialysis dependent end-stage renal disease, Dr. Garcia is following in nephrology consultation, continue hemodialysis. -Diabetes mellitus type 2, continue Tradjenta Lantus and NovoLog -HTN -Severe PVD, with multiple vascular intervention including a left lower extremity bypass. -S/p orthopedic procedures to RUE with metal prosthetic after bone Fx -Poor medical compliance Further recommendations based on clinical course. Plan of care is discussed with Dr. Cordero HPI/ROS Admit Date/Time Admit Date/Time Hx of Present Illness Patient is a 56-year-old female presented to emergency room with complaints of shortness of breath. Patient is known to me from previous admission, has a history of hemodialysis dependent end-stage renal disease, hypertension, diabetes, peripheral vascular disease, was previously treated for bilateral lower extremity cellulitis. Patient stated that she has been sick with sore throat cough and generalized weakness and missed her hemodialysis. Patient got extremely short of breath today and presented to the emergency room. Patient underwent chest x-ray which revealed pulmonary edema. Patient potassium was noted to be elevated to 5.3. Also hypotensive with systolic blood pressure in 200s on admission. Patient is seen by Dr. Garcia in nephrology consultation and will undergo hemodialysis today. ROS 10 point review of system is negative unless for what mentioned in HPI PMH/Family/Social Past Medical History Medical History: diabetes, hypertension, renal disease Past Surgical History S/P LEFT LOWER LEG ANGIOGRAM,BYPASS LT LEG,RIGHT TOE AMPUTATION,RT OVARY SX) Past Surgical Hx: other Family History Significant Family History: no pertinent family hx Social History Alcohol Use: none Smoking Status: Never smoker Drug Use: none Exam/Review of Systems Vital Signs Vitals Vital Signs Date Time Temp Pulse Resp B/P Pulse Ox O2 Delivery O2 Flow Rate FiO2 01/13/17 18:04 88 18 174/78 98 Room Air 01/13/17 15:44 2.0 01/13/17 12:23 98.1 Exam Constitutional: alert, oriented Psych: no complaints Head: normocephalic Neck: supple Respiratory: diminished breath sounds, wheezing Cardiovascular: nl pulses Gastrointestinal: ascites, non-tender, soft Extremities: edema Neurological: SONOGRAPHY TECHNICIAN II-XII intact Additional Comments Left upper extremity AV fistula Labs Result Diagram: 01/13/17 1630 01/13/17 1630 ANTHONY DUPREE Jan 13, 2017 18:16
[2017-01-13] MEDS ORDERED: POLY17PO6 PO (18:21)
[2017-01-13] MEDS ORDERED: ALBU18HF INHALATION (18:22)
[2017-01-13] MEDS ORDERED: NITROGLYCERIN (SL) 0.4 MG TAB SL PRN (18:30)
[2017-01-13] MEDS ORDERED: NACL 0.9% 3 ML SYG IV SCH (18:30)
[2017-01-13] MEDS ORDERED: ONDANSETRON 4 MG INJ IV PRN (18:30)
[2017-01-13] MEDS ORDERED: GLUCAGON 1 MG INJ IM PRN (19:00)
[2017-01-13] MEDS ORDERED: GLUCOSE GEL 15 GRAM TUBE PO PRN ×2 (19:00)
[2017-01-13] MEDS ORDERED: DEXTROSE 50% 50 ML SYRINGE IV PRN ×2 (19:00)
[2017-01-13] MEDS ORDERED: GLUCOSE GEL 15 GRAM TUBE BUCCAL PRN (19:00)
[2017-01-13] MEDS: ACETAMINOPHEN 325 MG TAB PO PRN (21:27)
[2017-01-13] MEDS: GABAPENTIN 300 MG CAP PO SCH (22:50)
[2017-01-13] MEDS: ATORVASTATIN 40 MG TAB PO SCH (22:50)
[2017-01-13] MEDS: FAMOTIDINE 20 MG TAB PO SCH (22:50)
[2017-01-13] MEDS: HEPARIN 5,000 UNIT/0.5 ML VIAL SC SCH (22:53)
[2017-01-13] MEDS: POLYETHYLENE GLYCOL 17 GM PACKET PO SCH (22:54)
[2017-01-13] MEDS: INSULIN GLARGINE [LANtus] 3 ML PEN SC SCH (22:54)
[2017-01-14] VITALS (18 sets, daily range): BP systolic 100–172; BP diastolic 53–81; PULSE 60–77; RESP 17–19
[2017-01-14] MEDS: morphine 2 MG INJ IV PRN ×4 (01:27→19:02)
--- NOTE | 2017-01-14 03:47 | CONS ---
DATE OF ADMISSION: 01/13/2017 DATE OF CONSULTATION: NEPHROLOGY CONSULTATION Thank you, Dr. Kirstin Cordero, for kindly asking me to see this patient in nephrology consultation . HISTORY OF PRESENT ILLNESS: The patient is a 56-year-old female seen in the emergency room, present ed with shortness of breath, anasarca, lung congestion, lower extremity edema. Patient was supposed to go to dialysis center today, but missed hemodialysis and presented here. The patient's blood pr essure 216/90 in the ER. PAST MEDICAL HISTORY: Please review the old chart. Briefly, the patient has ESRD, hypertension. P april has history of anxiety, history of dialysis catheter, history of AV fistula placement, histor y of PVD. Patient's other history includes history of wound dehiscence and wound infection, history of diabetes mellitus, PVD, peripheral neuropathy, history of depression, history of multiple toe villasenor rgeries, history of arthritis, DJD, history of osteomyelitis. ALLERGY HISTORY: NEGATIVE. FAMILY HISTORY: Negative. SOCIAL HISTORY: Negative at this point. MEDICATION HISTORY: Patient's medications at home include: 1. Tylenol. 2. Xanax. 3. Amlodipine. 4. Aspirin. 5. Lipitor. 6. Coreg. 7. Clonidine. 8. Plavix. 9. Docusate sodium. 10. Folic acid. 11. Lasix. 12. Gabapentin. 13. Insulin 14. Januvia. 15. Patient is on Tradjenta. 16. Losartan. 17. Multiple vitamins. 18. Protonix. 19. Renvela. REVIEW OF SYSTEMS: HEENT: Unremarkable. RESPIRATORY: Cough, short of breath, wheezing. CARDIOVASCULAR: No chest pain, palpitations. ABDOMEN: Unremarkable. EXTREMITIES: Worsening edema. CENTRAL NERVOUS SYSTEM: Unremarkable. PHYSICAL EXAMINATION: GENERAL: The patient is an anasarcic looking female. VITAL SIGNS: Blood pressure of 216/90. HEAD: Atraumatic, normocephalic. Pupils are equal, reactive. No pallor or conjunctival icterus. NECK: Supple. LUNGS: Shows rhonchi, rales bilateral. CARDIOVASCULAR: S1, S2 normal. ABDOMEN: Obese. Bowel sounds present. No palpable mass. EXTREMITIES: No cyanosis, clubbing. Edema positive. CENTRAL NERVOUS SYSTEM: The patient is awake, alert with no focal deficit. LABORATORY DATA: Hematocrit 29.6, potassium 4.8, sodium 144, BUN 59, creatinine 6.65. IMPRESSION: 1. Fluid overload, uncontrolled hypertension. 2. End-stage renal disease. 3. Hypertension. 4. Diabetes mellitus. 5. Hyperkalemia. 6. Atherosclerotic heart disease. 7. Peripheral vascular disease. 8. History of dyslipidemia. 9 History of pneumonia. 10. History of leg cellulitis. 11. History of wound dehiscence. PLAN: To continue diabetic renal diet, sliding scale. Hemodialysis has already been ordered today and tomorrow. Thank you, Dr. Cordero, for kindly asking me to see this patient in nephrology consultation. Dictated By: ZOFIA REAL MD BS/NTS Conf#: [id number] DID#: [id number] CC: KIRSTIN CORDERO MD;*EndCC*
[2017-01-14 07:24] LABS: BASOPHILS % 0.3 % (0.0-2.0); EOSINOPHILS # 0.3 10^3/ul (0.0-0.5); EOSINOPHILS % 7.7 % (0.0-7.0); HEMATOCRIT 27.4 % (37.0-47.0); HEMOGLOBIN 8.3 g/dl (12.0-16.0); LYMPHOCYTES # 1.2 10^3/ul (0.8-2.9); LYMPHOCYTES % 30.4 % (15.0-51.0); MEAN CORPUSCULAR HEMOGLOBIN 32.4 pg (29.0-33.0); MEAN CORPUSCULAR HGB CONC 30.3 g/dl (32.0-37.0); MEAN PLATELET VOLUME 10.5 fl (7.4-10.4); MONOCYTE # 0.5 10^3/ul (0.3-0.9); MONOCYTES % 11.5 % (0.0-11.0); NEUTROPHILS % 49.8 % (39.0-77.0); PLATELET COUNT 205 10^3/UL (140-415); RED BLOOD COUNT 2.56 10^6/ul (4.20-5.40); RED CELL DISTRIBUTION WIDTH 14.3 % (11.5-14.5); WHITE BLOOD COUNT 3.9 10^3/ul (4.8-10.8)
[2017-01-14 07:51] LABS: ALBUMIN 3.3 g/dl (3.3-4.9); ALBUMIN/GLOBULIN RATIO 1.22; CALCIUM 7.2 mg/dl (8.4-10.2); CREATININE 5.24 mg/dl (0.44-1.00)
[2017-01-14] MEDS: INSULIN ASPART [NOVOLOG] 3 ML PEN SC SCH ×4 (07:55→20:38)
[2017-01-14] MEDS: CLOPIDOGREL 75 MG TAB PO SCH (07:59)
[2017-01-14] MEDS: POLYETHYLENE GLYCOL 17 GM PACKET PO SCH ×2 (08:44→20:38)
[2017-01-14] MEDS: SEVELAMER CARBONATE 0.8 GM PKT PO SCH ×3 (08:44→17:42)
[2017-01-14] MEDS: LINAGLIPTIN 5 MG TABLET PO SCH (08:44)
[2017-01-14] MEDS: GABAPENTIN 300 MG CAP PO SCH ×2 (08:44→20:37)
[2017-01-14] MEDS: PANTOPRAZOLE (EC) 40 MG TAB PO SCH (08:44)
[2017-01-14] MEDS: FOLIC ACID 1 MG TAB PO SCH (08:44)
[2017-01-14] MEDS: MULTIVIT/CA CARB/B CMPLX/FA TAB PO SCH (08:44)
[2017-01-14] MEDS: ASPIRIN (EC) 81 MG TAB PO SCH (08:46)
[2017-01-14] MEDS: AMLODIPINE 10 MG TAB PO SCH (08:46)
[2017-01-14] MEDS: HEPARIN 5,000 UNIT/0.5 ML VIAL SC SCH ×2 (08:54→20:48)
[2017-01-14] MEDS: ACETAMINOPHEN 325 MG TAB PO PRN (11:04)
--- NOTE | 2017-01-14 13:08 | PN ---
Date/Time of Note Date/Time of Note DATE: 01/14/17 TIME: 13:04 Assessment/Plan VTE Prophylaxis VTE Prophylaxis Intervention: SCD's Lines/Catheters Urinary Cath still in place: No Assessment/Plan Chief Complaint/Hosp Course Patient stated that she feels better however complains of cough and trunk pain however denies any shortness of breath, regular rhythm and rate on telemetry. We will continue breathing treatments as needed for shortness of breath. Patient is scheduled for hemodialysis today. Assessment/Plan -Acute respiratory failure secondary to pulmonary edema -Hemodialysis dependent end-stage renal disease, Dr. Garcia is following in nephrology consultation, continue hemodialysis. -Possible bronchitis, follow-up on influenza a and B swab. -Diabetes mellitus type 2, hemoglobin A1c 6.5, continue Tradjenta Lantus and NovoLog -HTN -Severe PVD, with multiple vascular intervention including a left lower extremity bypass. -S/p orthopedic procedures to RUE with metal prosthetic after bone Fx -Poor medical compliance Further recommendations based on clinical course. Plan of care is discussed with Dr. Cordero Problems: Exam/Review of Systems Vital Signs Vitals Vital Signs Date Time Temp Pulse Resp B/P Pulse Ox O2 Delivery O2 Flow Rate FiO2 01/14/17 12:21 68 01/14/17 11:24 98.9 19 162/67 100 01/14/17 07:30 Nasal Cannula 2.0 Intake and Output 01/13/17 01/13/17 01/14/17 15:00 23:00 07:00 Intake Total 300 ml 240 ml Output Total 3300 ml Balance -3000 ml 240 ml Exam Constitutional: alert, oriented Head: normocephalic Neck: supple Respiratory: diminished breath sounds, wheezing Cardiovascular: nl pulses Gastrointestinal: ascites, non-tender, soft Extremities: edema Additional Comments Left upper extremity AV fistula Results Result Diagram: 01/14/17 0620 01/14/17 0620 Results 24 hrs Laboratory Tests Test 01/13/17 16:30 01/13/17 22:49 01/14/17 06:20 01/14/17 08:43 White Blood Count 4.7 L 3.9 L Red Blood Count 2.82 L 2.56 L Hemoglobin 9.6 L 8.3 L Hematocrit 29.6 L 27.4 L Mean Corpuscular Volume 105.0 H 107.0 H Mean Corpuscular Hemoglobin 34.0 H 32.4 Mean Corpuscular Hemoglobin Concent 32.4 30.3 L Red Cell Distribution Width 14.3 14.3 Platelet Count 247 # 205 Mean Platelet Volume 10.3 10.5 H Neutrophils % 65.2 49.8 Lymphocytes % 22.4 30.4 Monocytes % 7.1 11.5 H Eosinophils % 4.9 7.7 H Basophils % 0.2 0.3 Nucleated Red Blood Cells % 0.0 0.0 Neutrophils # 3.0 2.0 Lymphocytes # 1.0 1.2 Monocytes # 0.3 0.5 Eosinophils # 0.2 0.3 Basophils # 0.0 0.0 Nucleated Red Blood Cells # 0.0 0.0 Prothrombin Time 12.7 Prothrombin Time Ratio 1.0 INR International Normalized Ratio 0.95 Activated Partial Thromboplast Time 34.0 Urine Color YELLOW Urine Clarity CLEAR Urine pH 8.0 Urine Specific [place] 1.016 Urine Ketones NEGATIVE Urine Nitrite NEGATIVE Urine Bilirubin NEGATIVE Urine Urobilinogen NEGATIVE Urine Leukocyte Esterase NEGATIVE Urine Microscopic RBC 3 Urine Microscopic WBC 4 Urine Bacteria FEW A Urine Hemoglobin NEGATIVE Urine Glucose 3+ H Urine Total Protein 3+ H Sodium Level 144 142 Potassium Level 5.3 H 4.0 Chloride Level 107 103 Carbon Dioxide Level 24 29 Anion Gap 18 H 14 Blood Urea Nitrogen 59 H 42 #H Creatinine 6.65 H 5.24 H Glucose Level 208 94 # Calcium Level 7.4 L 7.2 L Total Bilirubin 0.0 L 0.0 L Direct Bilirubin 0.00 0.00 Indirect Bilirubin 0.0 0.0 Aspartate Amino Transf (AST/SGOT) 30 20 Alanine Aminotransferase (ALT/SGPT) 45 38 Alkaline Phosphatase 108 84 Troponin I < 0.012 Total Protein 6.7 6.0 L Albumin 3.8 3.3 Globulin 2.90 2.70 Albumin/Globulin Ratio 1.31 1.22 Lipase 134 Bedside Glucose 256 H 75 Hemoglobin A1c 6.5 H Medications Medications Current Medications Lorazepam (Ativan) 0.5 mg Q6H PRN IV ANXIETY; Start 01/13/17 at 18:30 Ondansetron HCl (Zofran Inj) 4 mg Q6H PRN IV NAUSEA AND/OR VOMITING; Start 01/20 at 18:30 Nitroglycerin (Nitroglycerin (Sl Tab) 0.4 Mg) 1 tab Q5M PRN SL CHEST PAIN; Start 01/13/17 at 18:30 Acetaminophen (Tylenol Tab) 650 mg Q6H PRN PO PAIN LEVEL 1-3 OR FEVER Last administered on 01/14/17 11:04; Admin Dose 650 MG; Start 01/13/17 at 18:30 Morphine Sulfate (morphine) 2 mg Q4H PRN IV PAIN LEVEL 7-10 Last administered on 01/14/17 05:56; Admin Dose 2 MG; Start 01/13/17 at 18:30 Famotidine (Pepcid) 10 mg HS PO Last administered on 01/13/17 22:50; Admin Dose 10 MG; Start 01/13/17 at 21:00 Heparin Sodium (Porcine) (Heparin (5000 Units/0.5 ml)) 5,000 unit Q12 SC Last administered on 01/14/17 08:54; Admin Dose 5,000 UNIT; Start 01/13/17 at 21: 00 Amlodipine Besylate (Norvasc) 10 mg DAILY PO ; Start 01/14/17 at 09:00 Aspirin (Halfprin) 81 mg DAILY PO Last administered on 01/14/17 08:46; Admin Dose 81 MG; Start 01/14/17 at 09:00 Atorvastatin Calcium (Lipitor) 40 mg QHS PO Last administered on 01/13/17 22: 50; Admin Dose 40 MG; Start 01/13/17 at 21:00 Carvedilol (Coreg) 6.25 mg DAILY PO ; Start 01/14/17 at 09:00 Clonidine (Catapres) 0.2 mg TID PRN PO HTN; Start 01/13/17 at 19:00; Status UNV Clopidogrel Bisulfate (plaVIX) 75 mg DAILY PO Last administered on 01/14/17 07:59; Admin Dose 75 MG; Start 01/14/17 at 09:00 Folic Acid (Folic Acid) 1 mg DAILY PO Last administered on 01/14/17 08:44; Admin Dose 1 MG; Start 01/14/17 at 09:00 Gabapentin (Neurontin) 300 mg BID PO Last administered on 01/14/17 08:44; Admin Dose 300 MG; Start 01/13/17 at 21:00 Insulin Glargine (Lantus) 25 unit DAILY@20 SC Last administered on 01/13/17 22:54; Admin Dose 25 UNIT; Start 01/13/17 at 20:00 Linagliptin (Tradjenta) 5 mg DAILY PO Last administered on 01/14/17 08:44; Admin Dose 5 MG; Start 01/14/17 at 09:00 Multivit/Ca Carb/ B Cmplx/FA/Prenat (Addie-Mikayla) 1 tab DAILY PO Last administered on 01/14/17 08:44; Admin Dose 1 TAB; Start 01/14/17 at 09:00 Polyethylene Glycol (Miralax) 17 gm BID PO Last administered on 01/14/17 08: 44; Admin Dose 17 GM; Start 01/13/17 at 21:00 Miscellaneous Information 1 ea NOTE XX ; Start 01/13/17 at 19:00 Glucose (Glutose) 15 gm Q15M PRN PO DECREASED GLUCOSE; Start 01/13/17 at 19:00 Glucose (Glutose) 22.5 gm Q15M PRN PO DECREASED GLUCOSE; Start 01/13/17 at 19: 00 Dextrose (D50w Syringe) 25 ml Q15M PRN IV DECREASED GLUCOSE; Start 01/13/17 at 19:00 Dextrose (D50w Syringe) 50 ml Q15M PRN IV DECREASED GLUCOSE; Start 01/13/17 at 19:00 Glucagon (Glucagen) 1 mg Q15M PRN IM DECREASED GLUCOSE; Start 01/13/17 at 19: 00 Glucose (Glutose) 15 gm Q15M PRN BUCCAL DECREASED GLUCOSE; Start 01/13/17 at 19:00 Morphine Sulfate (morphine) 2 mg Q4H PRN IV PAIN; Start 01/14/17 at 01:00 Promethazine HCl/ Codeine (Phenergan/ Codeine) 5 ml Q4H PRN PO COUGH; Start at 12:30 ANTHONY DUPREE Jan 14, 2017 13:08
[2017-01-14] MEDS: PROMETHAZINE/CODEINE 5ML CUP PO PRN (13:22)
[2017-01-14] MEDS ORDERED: LEVALBUTEROL (NEB) 0.63 MG/3 ML AMP HHN PRN (13:30)
[2017-01-14] MEDS: LEVALBUTEROL (NEB) 0.63 MG/3 ML AMP HHN SCH ×2 (13:47→19:57)
[2017-01-14] MEDS ORDERED: ALBUTEROL/IPRATROPIUM (NEB) 3 ML AMP HHN SCH (14:00)
[2017-01-14] MEDS: LORAZEPAM 2 MG INJ IV PRN (17:42)
[2017-01-14] MEDS: FAMOTIDINE 20 MG TAB PO SCH (20:37)
[2017-01-14] MEDS: ATORVASTATIN 40 MG TAB PO SCH (20:37)
--- NOTE | 2017-01-14 21:04 | CONS ---
Date/Time of Note Date/Time of Note DATE: 01/14/17 TIME: 21:04 Assessment/Plan Assessment/Plan Chief Complaint/Hosp Course IMPRESSION: 1. Fluid overload, uncontrolled hypertension. 2. End-stage renal disease. 3. Hypertension. 4. Diabetes mellitus. 5. Hyperkalemia. 6. Atherosclerotic heart disease. 7. Peripheral vascular disease. 8. History of dyslipidemia. 9 History of pneumonia. 10. History of leg cellulitis. 11. History of wound dehiscence. 12 URI PLAN HD Problems: Consultation Date/Type/Reason Admit Date/Time Jan 13, 2017 at 18:04 Initial Consult Date Type of Consultation: RENAL 24 HR Interval Summary Constitutional: other (COUGH+) Exam/Review of Systems Vital Signs Vitals Vital Signs Date Time Temp Pulse Resp B/P Pulse Ox O2 Delivery O2 Flow Rate FiO2 01/14/17 19:59 72 22 95 01/14/17 19:56 98.9 164/70 01/14/17 13:53 3.0 01/14/17 07:30 Nasal Cannula Intake and Output 01/13/17 01/13/17 01/14/17 15:00 23:00 07:00 Intake Total 300 ml 240 ml Output Total 3300 ml Balance -3000 ml 240 ml Exam Neck: supple Respiratory: diminished breath sounds Cardiovascular: regular rate and rhythm Gastrointestinal: bowel sounds (+), soft Extremities: edema (+++) Results Result Diagram: 01/14/17 0620 01/14/17 0620 Results 24 hrs Laboratory Tests Test 01/13/17 22:49 01/14/17 06:20 01/14/17 08:43 01/14/17 13:21 Bedside Glucose 256 H 75 92 White Blood Count 3.9 L Red Blood Count 2.56 L Hemoglobin 8.3 L Hematocrit 27.4 L Mean Corpuscular Volume 107.0 H Mean Corpuscular Hemoglobin 32.4 Mean Corpuscular Hemoglobin Concent 30.3 L Red Cell Distribution Width 14.3 Platelet Count 205 Mean Platelet Volume 10.5 H Neutrophils % 49.8 Lymphocytes % 30.4 Monocytes % 11.5 H Eosinophils % 7.7 H Basophils % 0.3 Nucleated Red Blood Cells % 0.0 Neutrophils # 2.0 Lymphocytes # 1.2 Monocytes # 0.5 Eosinophils # 0.3 Basophils # 0.0 Nucleated Red Blood Cells # 0.0 Sodium Level 142 Potassium Level 4.0 Chloride Level 103 Carbon Dioxide Level 29 Anion Gap 14 Blood Urea Nitrogen 42 #H Creatinine 5.24 H Glucose Level 94 # Hemoglobin A1c 6.5 H Calcium Level 7.2 L Total Bilirubin 0.0 L Direct Bilirubin 0.00 Indirect Bilirubin 0.0 Aspartate Amino Transf (AST/SGOT) 20 Alanine Aminotransferase (ALT/SGPT) 38 Alkaline Phosphatase 84 Total Protein 6.0 L Albumin 3.3 Globulin 2.70 Albumin/Globulin Ratio 1.22 Test 01/14/17 17:34 01/14/17 20:28 Bedside Glucose 152 169 Medications Medications Current Medications Lorazepam (Ativan) 0.5 mg Q6H PRN IV ANXIETY Last administered on 01/14/17 17 :42; Admin Dose 0.5 MG; Start 01/13/17 at 18:30 Ondansetron HCl (Zofran Inj) 4 mg Q6H PRN IV NAUSEA AND/OR VOMITING; Start 01/20 at 18:30 Nitroglycerin (Nitroglycerin (Sl Tab) 0.4 Mg) 1 tab Q5M PRN SL CHEST PAIN; Start 01/13/17 at 18:30 Acetaminophen (Tylenol Tab) 650 mg Q6H PRN PO PAIN LEVEL 1-3 OR FEVER Last administered on 01/14/17 11:04; Admin Dose 650 MG; Start 01/13/17 at 18:30 Morphine Sulfate (morphine) 2 mg Q4H PRN IV PAIN LEVEL 7-10 Last administered on 01/14/17 19:02; Admin Dose 2 MG; Start 01/13/17 at 18:30 Famotidine (Pepcid) 10 mg HS PO Last administered on 01/14/17 20:37; Admin Dose 10 MG; Start 01/13/17 at 21:00 Heparin Sodium (Porcine) (Heparin (5000 Units/0.5 ml)) 5,000 unit Q12 SC Last administered on 01/14/17 20:48; Admin Dose 5,000 UNIT; Start 01/13/17 at 21: 00 Amlodipine Besylate (Norvasc) 10 mg DAILY PO ; Start 01/14/17 at 09:00 Aspirin (Halfprin) 81 mg DAILY PO Last administered on 01/14/17 08:46; Admin Dose 81 MG; Start 01/14/17 at 09:00 Atorvastatin Calcium (Lipitor) 40 mg QHS PO Last administered on 01/14/17 20: 37; Admin Dose 40 MG; Start 01/13/17 at 21:00 Carvedilol (Coreg) 6.25 mg DAILY PO ; Start 01/14/17 at 09:00 Clonidine (Catapres) 0.2 mg TID PRN PO FOR SBP >160; Start 01/13/17 at 19:00 Clopidogrel Bisulfate (plaVIX) 75 mg DAILY PO Last administered on 01/14/17 07:59; Admin Dose 75 MG; Start 01/14/17 at 09:00 Folic Acid (Folic Acid) 1 mg DAILY PO Last administered on 01/14/17 08:44; Admin Dose 1 MG; Start 01/14/17 at 09:00 Gabapentin (Neurontin) 300 mg BID PO Last administered on 01/14/17 20:37; Admin Dose 300 MG; Start 01/13/17 at 21:00 Insulin Glargine (Lantus) 25 unit DAILY@20 SC Last administered on 01/13/17 22:54; Admin Dose 25 UNIT; Start 01/13/17 at 20:00 Linagliptin (Tradjenta) 5 mg DAILY PO Last administered on 01/14/17 08:44; Admin Dose 5 MG; Start 01/14/17 at 09:00 Multivit/Ca Carb/ B Cmplx/FA/Prenat (Addie-Mikayla) 1 tab DAILY PO Last administered on 01/14/17 08:44; Admin Dose 1 TAB; Start 01/14/17 at 09:00 Polyethylene Glycol (Miralax) 17 gm BID PO Last administered on 01/14/17 20: 38; Admin Dose 17 GM; Start 01/13/17 at 21:00 Miscellaneous Information 1 ea NOTE XX ; Start 01/13/17 at 19:00 Glucose (Glutose) 15 gm Q15M PRN PO DECREASED GLUCOSE; Start 01/13/17 at 19:00 Glucose (Glutose) 22.5 gm Q15M PRN PO DECREASED GLUCOSE; Start 01/13/17 at 19: 00 Dextrose (D50w Syringe) 25 ml Q15M PRN IV DECREASED GLUCOSE; Start 01/13/17 at 19:00 Dextrose (D50w Syringe) 50 ml Q15M PRN IV DECREASED GLUCOSE; Start 01/13/17 at 19:00 Glucagon (Glucagen) 1 mg Q15M PRN IM DECREASED GLUCOSE; Start 01/13/17 at 19: 00 Glucose (Glutose) 15 gm Q15M PRN BUCCAL DECREASED GLUCOSE; Start 01/13/17 at 19:00 Morphine Sulfate (morphine) 2 mg Q4H PRN IV PAIN; Start 01/14/17 at 01:00 Promethazine HCl/ Codeine (Phenergan/ Codeine) 5 ml Q4H PRN PO COUGH Last administered on 01/14/17t 13:22; Admin Dose 5 ML; Start 01/14/17 at 12:30 Hydrocodone Bit/ Homatropine Methylb (Hycodan Liquid) 5 ml Q6 PRN PO COUGH; Start 01/14/17 at 13:30 Diagnostic Test (Pha) (Accu-Chek) 1 ea 02 XX ; Start 01/15/17 at 02:00 ZOFIA REAL MD Jan 14, 2017 21:04
[2017-01-14] MEDS: INSULIN GLARGINE [LANtus] 3 ML PEN SC SCH (21:41)
[2017-01-15] VITALS (19 sets, daily range): BP systolic 118–176; BP diastolic 48–76; PULSE 68–81; RESP 16–21
[2017-01-15] MEDS: morphine 2 MG INJ IV PRN ×4 (00:07→18:38)
[2017-01-15] MEDS: HYDROCODONE/HOMATROPINE 5ML CUP PO PRN ×2 (00:15→18:34)
[2017-01-15] MEDS: LORAZEPAM 2 MG INJ IV PRN (01:10)
[2017-01-15] MEDS ORDERED: ACCU-CHEK XX SCH (02:00)
[2017-01-15] MEDS: ACCU-CHEK XX SCH (02:00)
[2017-01-15] MEDS: LEVALBUTEROL (NEB) 0.63 MG/3 ML AMP HHN SCH ×4 (03:10→20:04)
[2017-01-15] MEDS: PROMETHAZINE/CODEINE 5ML CUP PO PRN ×3 (06:20→21:22)
[2017-01-15] MEDS: PANTOPRAZOLE (EC) 40 MG TAB PO SCH (06:20)
[2017-01-15 06:59] LABS: BASOPHILS % 0.2 % (0.0-2.0); EOSINOPHILS # 0.3 10^3/ul (0.0-0.5); EOSINOPHILS % 5.7 % (0.0-7.0); HEMATOCRIT 26.4 % (37.0-47.0); HEMOGLOBIN 8.3 g/dl (12.0-16.0); LYMPHOCYTES # 1.2 10^3/ul (0.8-2.9); MEAN CORPUSCULAR HEMOGLOBIN 33.1 pg (29.0-33.0); MEAN CORPUSCULAR HGB CONC 31.4 g/dl (32.0-37.0); MEAN CORPUSCULAR VOLUME 105.2 fl (82.0-101.0); MEAN PLATELET VOLUME 10.5 fl (7.4-10.4); MONOCYTE # 0.6 10^3/ul (0.3-0.9); MONOCYTES % 12.7 % (0.0-11.0); NEUTROPHIL # 2.5 10^3/ul (1.6-7.5); NEUTROPHILS % 54.2 % (39.0-77.0); PLATELET COUNT 208 10^3/UL (140-415); RED BLOOD COUNT 2.51 10^6/ul (4.20-5.40); RED CELL DISTRIBUTION WIDTH 13.7 % (11.5-14.5); WHITE BLOOD COUNT 4.6 10^3/ul (4.8-10.8)
[2017-01-15 07:19] LABS: CALCIUM 7.4 mg/dl (8.4-10.2); CHOL/HDL RATIO 2.9 RATIO; CREATININE 4.62 mg/dl (0.44-1.00); POTASSIUM 4.8 mmol/L (3.5-5.1)
[2017-01-15] MEDS ORDERED: INSULIN ASPART [NOVOLOG] 3 ML PEN SC SCH (07:55)
[2017-01-15] MEDS: INSULIN ASPART [NOVOLOG] 3 ML PEN SC SCH ×7 (07:55→21:00)
[2017-01-15] MEDS: SEVELAMER CARBONATE 0.8 GM PKT PO SCH ×3 (08:02→17:38)
[2017-01-15] MEDS: MULTIVIT/CA CARB/B CMPLX/FA TAB PO SCH (08:11)
[2017-01-15] MEDS: ASPIRIN (EC) 81 MG TAB PO SCH (08:12)
[2017-01-15] MEDS: POLYETHYLENE GLYCOL 17 GM PACKET PO SCH ×2 (08:12→21:10)
[2017-01-15] MEDS: GABAPENTIN 300 MG CAP PO SCH ×2 (08:12→21:09)
[2017-01-15] MEDS: CLOPIDOGREL 75 MG TAB PO SCH (08:12)
[2017-01-15] MEDS: FOLIC ACID 1 MG TAB PO SCH (08:13)
[2017-01-15] MEDS: LINAGLIPTIN 5 MG TABLET PO SCH (08:13)
[2017-01-15] MEDS: AMLODIPINE 10 MG TAB PO SCH (08:13)
[2017-01-15] MEDS: HEPARIN 5,000 UNIT/0.5 ML VIAL SC SCH ×2 (08:19→21:20)
[2017-01-15] MEDS: ACETAMINOPHEN 325 MG TAB PO PRN (08:20)
--- NOTE | 2017-01-15 15:41 | PN ---
Date/Time of Note Date/Time of Note DATE: 01/15/17 TIME: 15:18 Assessment/Plan VTE Prophylaxis VTE Prophylaxis Intervention: other Lines/Catheters Urinary Cath still in place: No Assessment/Plan Assessment/Plan - Hypoglycemia- will change Lantus to 21 units at 1999 daily. cont to monitor. -Acute respiratory failure secondary to pulmonary edema -Hemodialysis dependent end-stage renal disease, Dr. Garcia is following in nephrology consultation, continue hemodialysis. -Possible bronchitis, follow-up on influenza a and B swab. -Diabetes mellitus type 2, hemoglobin A1c 6.5, continue Tradjenta Lantus and NovoLog -HTN -Severe PVD, with multiple vascular intervention including a left lower extremity bypass. -S/p orthopedic procedures to RUE with metal prosthetic after bone Fx -Poor medical compliance Further recommendations based on clinical course. Plan of care is discussed with Dr. Cordero Subjective 24 Hr Interval Summary Free Text/Dictation HD today, bs dropped- will change Lantus to 21 units at 1999 daily, -per staff Exam/Review of Systems Vital Signs Vitals Vital Signs Date Time Temp Pulse Resp B/P Pulse Ox O2 Delivery O2 Flow Rate FiO2 01/15/17 14:07 86 20 94 21 01/15/17 11:17 98.0 135/69 01/14/17 20:00 Nasal Cannula 2.0 Intake and Output 01/14/17 01/14/17 01/15/17 15:00 23:00 07:00 Intake Total 500 ml 300 ml Output Total 2500 ml Balance -2000 ml 300 ml Exam Constitutional: alert, well developed Respiratory: clear to auscultation, normal air movement Cardiovascular: nl pulses Gastrointestinal: non-tender, soft Musculoskeletal: nl extremities to inspection Extremities: normal pulses Neurological: nl speech Results Result Diagram: 01/15/1761901/15/17619 Results 24 hrs Laboratory Tests Test 01/14/17 17:34 01/14/17 20:28 01/14/17 21:36 01/15/17 06:20 Bedside Glucose 152 169 124 White Blood Count 4.6 L Red Blood Count 2.51 L Hemoglobin 8.3 L Hematocrit 26.4 L Mean Corpuscular Volume 105.2 H Mean Corpuscular Hemoglobin 33.1 H Mean Corpuscular Hemoglobin Concent 31.4 L Red Cell Distribution Width 13.7 Platelet Count 208 Mean Platelet Volume 10.5 H Neutrophils % 54.2 Lymphocytes % 27.0 Monocytes % 12.7 H Eosinophils % 5.7 Basophils % 0.2 Nucleated Red Blood Cells % 0.0 Neutrophils # 2.5 Lymphocytes # 1.2 Monocytes # 0.6 Eosinophils # 0.3 Basophils # 0.0 Nucleated Red Blood Cells # 0.0 Sodium Level 137 Potassium Level 4.8 Chloride Level 102 Carbon Dioxide Level 30 Anion Gap 10 Blood Urea Nitrogen 40 H Creatinine 4.62 H Glucose Level 69 #L Calcium Level 7.4 L Triglycerides Level 106 Cholesterol Level 122 LDL Cholesterol, Calculated 59 HDL Cholesterol 42 Cholesterol/HDL Ratio 2.9 Test 01/15/17 08:28 01/15/17 08:50 01/15/17 11:55 Bedside Glucose 70 97 132 Medications Medications Current Medications Lorazepam (Ativan) 0.5 mg Q6H PRN IV ANXIETY Last administered on 01/15/17 01 :10; Admin Dose 0.5 MG; Start 01/13/17 at 18:30 Ondansetron HCl (Zofran Inj) 4 mg Q6H PRN IV NAUSEA AND/OR VOMITING; Start 01/20 at 18:30 Nitroglycerin (Nitroglycerin (Sl Tab) 0.4 Mg) 1 tab Q5M PRN SL CHEST PAIN; Start 01/13/17 at 18:30 Acetaminophen (Tylenol Tab) 650 mg Q6H PRN PO PAIN LEVEL 1-3 OR FEVER Last administered on 01/15/17 08:20; Admin Dose 650 MG; Start 01/13/17 at 18:30 Morphine Sulfate (morphine) 2 mg Q4H PRN IV PAIN LEVEL 7-10 Last administered on 01/15/17 13:26; Admin Dose 2 MG; Start 01/13/17 at 18:30 Famotidine (Pepcid) 10 mg HS PO Last administered on 01/14/17 20:37; Admin Dose 10 MG; Start 01/13/17 at 21:00 Heparin Sodium (Porcine) (Heparin (5000 Units/0.5 ml)) 5,000 unit Q12 SC Last administered on 01/15/17 08:19; Admin Dose 5,000 UNIT; Start 01/13/17 at 21: 00 Amlodipine Besylate (Norvasc) 10 mg DAILY PO ; Start 01/14/17 at 09:00 Aspirin (Halfprin) 81 mg DAILY PO Last administered on 01/15/17 08:12; Admin Dose 81 MG; Start 01/14/17 at 09:00 Atorvastatin Calcium (Lipitor) 40 mg QHS PO Last administered on 01/14/17 20: 37; Admin Dose 40 MG; Start 01/13/17 at 21:00 Carvedilol (Coreg) 6.25 mg DAILY PO ; Start 01/14/17 at 09:00 Clonidine (Catapres) 0.2 mg TID PRN PO FOR SBP >160; Start 01/13/17 at 19:00 Clopidogrel Bisulfate (plaVIX) 75 mg DAILY PO Last administered on 01/15/17 08:12; Admin Dose 75 MG; Start 01/14/17 at 09:00 Folic Acid (Folic Acid) 1 mg DAILY PO Last administered on 01/15/17 08:13; Admin Dose 1 MG; Start 01/14/17 at 09:00 Gabapentin (Neurontin) 300 mg BID PO Last administered on 01/15/17 08:12; Admin Dose 300 MG; Start 01/13/17 at 21:00 Insulin Glargine (Lantus) 25 unit DAILY@20 SC Last administered on 01/14/17 21:41; Admin Dose 25 UNIT; Start 01/13/17 at 20:00 Linagliptin (Tradjenta) 5 mg DAILY PO Last administered on 01/14/17 08:44; Admin Dose 5 MG; Start 01/14/17 at 09:00 Multivit/Ca Carb/ B Cmplx/FA/Prenat (Addie-Mikayla) 1 tab DAILY PO Last administered on 01/15/17 08:11; Admin Dose 1 TAB; Start 01/14/17 at 09:00 Polyethylene Glycol (Miralax) 17 gm BID PO Last administered on 01/15/17 08: 12; Admin Dose 17 GM; Start 01/13/17 at 21:00 Miscellaneous Information 1 ea NOTE XX ; Start 01/13/17 at 19:00 Glucose (Glutose) 15 gm Q15M PRN PO DECREASED GLUCOSE; Start 01/13/17 at 19:00 Glucose (Glutose) 22.5 gm Q15M PRN PO DECREASED GLUCOSE; Start 01/13/17 at 19: 00 Dextrose (D50w Syringe) 25 ml Q15M PRN IV DECREASED GLUCOSE; Start 01/13/17 at 19:00 Dextrose (D50w Syringe) 50 ml Q15M PRN IV DECREASED GLUCOSE; Start 01/13/17 at 19:00 Glucagon (Glucagen) 1 mg Q15M PRN IM DECREASED GLUCOSE; Start 01/13/17 at 19: 00 Glucose (Glutose) 15 gm Q15M PRN BUCCAL DECREASED GLUCOSE; Start 01/13/17 at 19:00 Morphine Sulfate (morphine) 2 mg Q4H PRN IV PAIN; Start 01/14/17 at 01:00 Promethazine HCl/ Codeine (Phenergan/ Codeine) 5 ml Q4H PRN PO COUGH Last administered on 01/15/17 13:26; Admin Dose 5 ML; Start 01/14/17 at 12:30 Hydrocodone Bit/ Homatropine Methylb (Hycodan Liquid) 5 ml Q6 PRN PO COUGH Last administered on 01/15/17 00:15; Admin Dose 5 ML; Start 01/14/17 at 13:30 Diagnostic Test (Pha) (Accu-Chek) 1 ea 02 XX ; Start 01/15/17 at 02:00 VIOLET RUDOLPH Jan 15, 2017 15:28
--- NOTE | 2017-01-15 16:59 | CONS ---
Date/Time of Note Date/Time of Note DATE: 01/15/17 TIME: 16:58 Assessment/Plan Assessment/Plan Chief Complaint/Hosp Course IMPRESSION: 1. Fluid overload, uncontrolled hypertension. 2. End-stage renal disease. 3. Hypertension. 4. Diabetes mellitus. 5. Hyperkalemia. 6. Atherosclerotic heart disease. 7. Peripheral vascular disease. 8. History of dyslipidemia. 9 History of pneumonia. 10. History of leg cellulitis. 11. History of wound dehiscence. 12 URI PLAN HD levaquin Problems: Consultation Date/Type/Reason Admit Date/Time Jan 13, 2017 at 18:04 Type of Consultation: RENAL 24 HR Interval Summary Subjective hx not possible: other (uri sym) Exam/Review of Systems Vital Signs Vitals Vital Signs Date Time Temp Pulse Resp B/P Pulse Ox O2 Delivery O2 Flow Rate FiO2 01/15/17 16:00 81 01/15/17 16:00 Nasal Cannula 2.0 01/15/17 15:46 99.7 21 136/61 94 01/15/17 14:07 21 Intake and Output 01/14/17 01/14/17 01/15/17 15:00 23:00 07:00 Intake Total 500 ml 300 ml Output Total 2500 ml Balance -2000 ml 300 ml Exam Respiratory: diminished breath sounds Cardiovascular: regular rate and rhythm Gastrointestinal: soft Extremities: edema (+) Results Result Diagram: 01/15/17 0620 01/15/17 0620 Results 24 hrs Laboratory Tests Test 01/14/17 17:34 01/14/17 20:28 01/14/17 21:36 01/15/17 06:20 Bedside Glucose 152 169 124 White Blood Count 4.6 L Red Blood Count 2.51 L Hemoglobin 8.3 L Hematocrit 26.4 L Mean Corpuscular Volume 105.2 H Mean Corpuscular Hemoglobin 33.1 H Mean Corpuscular Hemoglobin Concent 31.4 L Red Cell Distribution Width 13.7 Platelet Count 208 Mean Platelet Volume 10.5 H Neutrophils % 54.2 Lymphocytes % 27.0 Monocytes % 12.7 H Eosinophils % 5.7 Basophils % 0.2 Nucleated Red Blood Cells % 0.0 Neutrophils # 2.5 Lymphocytes # 1.2 Monocytes # 0.6 Eosinophils # 0.3 Basophils # 0.0 Nucleated Red Blood Cells # 0.0 Sodium Level 137 Potassium Level 4.8 Chloride Level 102 Carbon Dioxide Level 30 Anion Gap 10 Blood Urea Nitrogen 40 H Creatinine 4.62 H Glucose Level 69 #L Calcium Level 7.4 L Triglycerides Level 106 Cholesterol Level 122 LDL Cholesterol, Calculated 59 HDL Cholesterol 42 Cholesterol/HDL Ratio 2.9 Test 01/15/17 08:28 01/15/17 08:50 01/15/17 11:55 Bedside Glucose 70 97 132 Medications Medications Current Medications Lorazepam (Ativan) 0.5 mg Q6H PRN IV ANXIETY Last administered on 01/15/17 01 :10; Admin Dose 0.5 MG; Start 01/13/17 at 18:30 Ondansetron HCl (Zofran Inj) 4 mg Q6H PRN IV NAUSEA AND/OR VOMITING; Start 01/20 at 18:30 Nitroglycerin (Nitroglycerin (Sl Tab) 0.4 Mg) 1 tab Q5M PRN SL CHEST PAIN; Start 01/13/17 at 18:30 Acetaminophen (Tylenol Tab) 650 mg Q6H PRN PO PAIN LEVEL 1-3 OR FEVER Last administered on 01/15/17 08:20; Admin Dose 650 MG; Start 01/13/17 at 18:30 Morphine Sulfate (morphine) 2 mg Q4H PRN IV PAIN LEVEL 7-10 Last administered on 01/15/17 13:26; Admin Dose 2 MG; Start 01/13/17 at 18:30 Famotidine (Pepcid) 10 mg HS PO Last administered on 01/14/17 20:37; Admin Dose 10 MG; Start 01/13/17 at 21:00 Heparin Sodium (Porcine) (Heparin (5000 Units/0.5 ml)) 5,000 unit Q12 SC Last administered on 01/15/17 08:19; Admin Dose 5,000 UNIT; Start 01/13/17 at 21: 00 Amlodipine Besylate (Norvasc) 10 mg DAILY PO ; Start 01/14/17 at 09:00 Aspirin (Halfprin) 81 mg DAILY PO Last administered on 01/15/17 08:12; Admin Dose 81 MG; Start 01/14/17 at 09:00 Atorvastatin Calcium (Lipitor) 40 mg QHS PO Last administered on 01/14/17 20: 37; Admin Dose 40 MG; Start 01/13/17 at 21:00 Carvedilol (Coreg) 6.25 mg DAILY PO ; Start 01/14/17 at 09:00 Clonidine (Catapres) 0.2 mg TID PRN PO FOR SBP >160; Start 01/13/17 at 19:00 Clopidogrel Bisulfate (plaVIX) 75 mg DAILY PO Last administered on 01/15/17 08:12; Admin Dose 75 MG; Start 01/14/17 at 09:00 Folic Acid (Folic Acid) 1 mg DAILY PO Last administered on 01/15/17 08:13; Admin Dose 1 MG; Start 01/14/17 at 09:00 Gabapentin (Neurontin) 300 mg BID PO Last administered on 01/15/17 08:12; Admin Dose 300 MG; Start 01/13/17 at 21:00 Linagliptin (Tradjenta) 5 mg DAILY PO Last administered on 01/14/17 08:44; Admin Dose 5 MG; Start 01/14/17 at 09:00 Multivit/Ca Carb/ B Cmplx/FA/Prenat (Addie-Mikayla) 1 tab DAILY PO Last administered on 01/15/17 08:11; Admin Dose 1 TAB; Start 01/14/17 at 09:00 Polyethylene Glycol (Miralax) 17 gm BID PO Last administered on 01/15/17 08: 12; Admin Dose 17 GM; Start 01/13/17 at 21:00 Miscellaneous Information 1 ea NOTE XX ; Start 01/13/17 at 19:00 Glucose (Glutose) 15 gm Q15M PRN PO DECREASED GLUCOSE; Start 01/13/17 at 19:00 Glucose (Glutose) 22.5 gm Q15M PRN PO DECREASED GLUCOSE; Start 01/13/17 at 19: 00 Dextrose (D50w Syringe) 25 ml Q15M PRN IV DECREASED GLUCOSE; Start 01/13/17 at 19:00 Dextrose (D50w Syringe) 50 ml Q15M PRN IV DECREASED GLUCOSE; Start 01/13/17 at 19:00 Glucagon (Glucagen) 1 mg Q15M PRN IM DECREASED GLUCOSE; Start 01/13/17 at 19: 00 Glucose (Glutose) 15 gm Q15M PRN BUCCAL DECREASED GLUCOSE; Start 01/13/17 at 19:00 Morphine Sulfate (morphine) 2 mg Q4H PRN IV PAIN; Start 10/11/17 at 01:00 Promethazine HCl/ Codeine (Phenergan/ Codeine) 5 ml Q4H PRN PO COUGH Last administered on 01/15/17 13:26; Admin Dose 5 ML; Start 01/14/17 at 12:30 Hydrocodone Bit/ Homatropine Methylb (Hycodan Liquid) 5 ml Q6 PRN PO COUGH Last administered on 01/15/17 00:15; Admin Dose 5 ML; Start 01/14/17 at 13:30 Diagnostic Test (Pha) (Accu-Chek) 1 ea 02 XX ; Start 01/15/17 at 02:00 Insulin Glargine (Lantus) 21 unit DAILY@20 SC ; Start 01/15/17 at 20:00 ZOFIA REAL MD Jan 15, 2017 16:59
[2017-01-15] MEDS ORDERED: INSULIN GLARGINE [LANtus] 3 ML PEN SC SCH (20:00)
[2017-01-15] MEDS: ATORVASTATIN 40 MG TAB PO SCH (21:09)
[2017-01-15] MEDS: FAMOTIDINE 20 MG TAB PO SCH (21:09)
[2017-01-15] MEDS: LEVOFLOXACIN 250 MG TAB PO SCH (21:10)
[2017-01-16] VITALS (20 sets, daily range): BP systolic 117–197; BP diastolic 59–86; PULSE 66–88; RESP 16–20
[2017-01-16] MEDS: morphine 2 MG INJ IV PRN ×5 (00:05→20:42)
[2017-01-16] MEDS: ACCU-CHEK XX SCH (02:00)
[2017-01-16] MEDS: LEVALBUTEROL (NEB) 0.63 MG/3 ML AMP HHN SCH ×4 (03:19→19:15)
[2017-01-16] MEDS: PROMETHAZINE/CODEINE 5ML CUP PO PRN ×2 (04:11→20:41)
[2017-01-16 06:37] LABS: BASOPHILS % 0.5 % (0.0-2.0); EOSINOPHILS # 0.3 10^3/ul (0.0-0.5); EOSINOPHILS % 6.1 % (0.0-7.0); HEMOGLOBIN 8.5 g/dl (12.0-16.0); LYMPHOCYTES # 1.2 10^3/ul (0.8-2.9); LYMPHOCYTES % 28.1 % (15.0-51.0); MEAN CORPUSCULAR HEMOGLOBIN 33.6 pg (29.0-33.0); MEAN CORPUSCULAR HGB CONC 31.5 g/dl (32.0-37.0); MEAN CORPUSCULAR VOLUME 106.7 fl (82.0-101.0); MEAN PLATELET VOLUME 10.6 fl (7.4-10.4); MONOCYTE # 0.7 10^3/ul (0.3-0.9); MONOCYTES % 16.7 % (0.0-11.0); NEUTROPHILS % 48.6 % (39.0-77.0); PLATELET COUNT 191 10^3/UL (140-415); RED BLOOD COUNT 2.53 10^6/ul (4.20-5.40); RED CELL DISTRIBUTION WIDTH 13.8 % (11.5-14.5); WHITE BLOOD COUNT 4.1 10^3/ul (4.8-10.8)
[2017-01-16 07:18] LABS: CALCIUM 7.6 mg/dl (8.4-10.2); CREATININE 4.57 mg/dl (0.44-1.00); POTASSIUM 4.8 mmol/L (3.5-5.1)
[2017-01-16] MEDS: INSULIN ASPART [NOVOLOG] 3 ML PEN SC SCH ×7 (07:23→20:42)
[2017-01-16] MEDS: ASPIRIN (EC) 81 MG TAB PO SCH (08:15)
[2017-01-16] MEDS: PANTOPRAZOLE (EC) 40 MG TAB PO SCH (08:16)
[2017-01-16] MEDS: GABAPENTIN 300 MG CAP PO SCH ×2 (08:16→20:40)
[2017-01-16] MEDS: SEVELAMER CARBONATE 0.8 GM PKT PO SCH ×3 (08:16→17:31)
[2017-01-16] MEDS: MULTIVIT/CA CARB/B CMPLX/FA TAB PO SCH (08:16)
[2017-01-16] MEDS: FOLIC ACID 1 MG TAB PO SCH (08:16)
[2017-01-16] MEDS: CLOPIDOGREL 75 MG TAB PO SCH (08:16)
[2017-01-16] MEDS: LINAGLIPTIN 5 MG TABLET PO SCH (08:16)
[2017-01-16] MEDS: AMLODIPINE 10 MG TAB PO SCH (08:17)
[2017-01-16] MEDS: POLYETHYLENE GLYCOL 17 GM PACKET PO SCH ×2 (08:17→20:40)
[2017-01-16] MEDS: HEPARIN 5,000 UNIT/0.5 ML VIAL SC SCH ×2 (08:19→20:47)
--- NOTE | 2017-01-16 11:53 | PN ---
Date/Time of Note Date/Time of Note DATE: 01/16/17 TIME: 11:50 Assessment/Plan VTE Prophylaxis VTE Prophylaxis Intervention: SCD's Lines/Catheters IV [facility]ter Type (from [facility] Saline [facility] Urinary Cath still in place: No Assessment/Plan Chief Complaint/Hosp Course Pt complains of poor appetite, encouraged PO intake, Insulin adjusted, simulation educator consult appreciated. pt is undergoing HD now. Assessment/Plan -Acute respiratory failure secondary to pulmonary edema -Hemodialysis dependent end-stage renal disease, Dr. Garcia is following in nephrology consultation, continue hemodialysis. -E. coli UTI, continue Levaquin. -Diabetes mellitus type 2, hemoglobin A1c 6.5, continue Tradjenta Lantus and NovoLog -HTN -Severe PVD, with multiple vascular intervention including a left lower extremity bypass. -S/p orthopedic procedures to RUE with metal prosthetic after bone Fx -Poor medical compliance Further recommendations based on clinical course. Plan of care is discussed with Dr. Cordero Problems: Exam/Review of Systems Vital Signs Vitals Vital Signs Date Time Temp Pulse Resp B/P Pulse Ox O2 Delivery O2 Flow Rate FiO2 01/16/17 08:10 98.3 74 18 197/86 95 01/16/17 07:49 Nasal Cannula 2.0 01/16/17 07:30 21 Intake and Output 01/15/17 01/15/17 01/16/17 15:00 23:00 07:00 Intake Total 500 ml 880 ml 400 ml Output Total 4000 ml 3500 ml Balance -3500 ml 880 ml -3100 ml Exam Constitutional: alert, oriented Head: normocephalic Neck: supple Respiratory: diminished breath sounds Cardiovascular: nl pulses Gastrointestinal: ascites, non-tender, soft Extremities: edema Additional Comments Left upper extremity AV fistula Results Result Diagram: 01/16/17 0553 01/16/17 0553 Results 24 hrs Laboratory Tests Test 01/15/17 11:55 01/15/17 17:36 01/15/17 20:59 01/15/17 21:24 Bedside Glucose 132 204 54 L 100 Test 01/16/17 05:53 01/16/17 07:22 01/16/17 11:28 White Blood Count 4.1 L Red Blood Count 2.53 L Hemoglobin 8.5 L Hematocrit 27.0 L Mean Corpuscular Volume 106.7 H Mean Corpuscular Hemoglobin 33.6 H Mean Corpuscular Hemoglobin Concent 31.5 L Red Cell Distribution Width 13.8 Platelet Count 191 Mean Platelet Volume 10.6 H Neutrophils % 48.6 Lymphocytes % 28.1 Monocytes % 16.7 H Eosinophils % 6.1 Basophils % 0.5 Nucleated Red Blood Cells % 0.0 Neutrophils # 2.0 Lymphocytes # 1.2 Monocytes # 0.7 Eosinophils # 0.3 Basophils # 0.0 Nucleated Red Blood Cells # 0.0 Sodium Level 138 Potassium Level 4.8 Chloride Level 99 Carbon Dioxide Level 32 H Anion Gap 12 Blood Urea Nitrogen 36 H Creatinine 4.57 H Glucose Level 102 Calcium Level 7.6 L Bedside Glucose 90 59 L Medications Medications Current Medications Lorazepam (Ativan) 0.5 mg Q6H PRN IV ANXIETY Last administered on 01/15/17 01 :10; Admin Dose 0.5 MG; Start 01/13/17 at 18:30 Ondansetron HCl (Zofran Inj) 4 mg Q6H PRN IV NAUSEA AND/OR VOMITING; Start 01/20 at 18:30 Nitroglycerin (Nitroglycerin (Sl Tab) 0.4 Mg) 1 tab Q5M PRN SL CHEST PAIN; Start 01/13/17 at 18:30 Acetaminophen (Tylenol Tab) 650 mg Q6H PRN PO PAIN LEVEL 1-3 OR FEVER Last administered on 01/15/17 08:20; Admin Dose 650 MG; Start 01/13/17 at 18:30 Morphine Sulfate (morphine) 2 mg Q4H PRN IV PAIN LEVEL 7-10 Last administered on 01/16/17 10:04; Admin Dose 2 MG; Start 01/13/17 at 18:30 Famotidine (Pepcid) 10 mg HS PO Last administered on 01/15/17 21:09; Admin Dose 10 MG; Start 01/13/17 at 21:00 Heparin Sodium (Porcine) (Heparin (5000 Units/0.5 ml)) 5,000 unit Q12 SC Last administered on 01/16/17 08:19; Admin Dose 5,000 UNIT; Start 01/13/17 at 21: 00 Amlodipine Besylate (Norvasc) 10 mg DAILY PO ; Start 01/14/17 at 09:00 Aspirin (Halfprin) 81 mg DAILY PO Last administered on 01/16/17 08:15; Admin Dose 81 MG; Start 01/14/17 at 09:00 Atorvastatin Calcium (Lipitor) 40 mg QHS PO Last administered on 01/15/17 21: 09; Admin Dose 40 MG; Start 01/13/17 at 21:00 Carvedilol (Coreg) 6.25 mg DAILY PO ; Start 01/14/17 at 09:00 Clonidine (Catapres) 0.2 mg TID PRN PO FOR SBP >160; Start 01/13/17 at 19:00 Clopidogrel Bisulfate (plaVIX) 75 mg DAILY PO Last administered on 01/16/17 08:16; Admin Dose 75 MG; Start 01/14/17 at 09:00 Folic Acid (Folic Acid) 1 mg DAILY PO Last administered on 01/16/17 08:16; Admin Dose 1 MG; Start 01/14/17 at 09:00 Gabapentin (Neurontin) 300 mg BID PO Last administered on 01/16/17 08:16; Admin Dose 300 MG; Start 01/13/17 at 21:00 Linagliptin (Tradjenta) 5 mg DAILY PO Last administered on 01/16/17 08:16; Admin Dose 5 MG; Start 01/14/17 at 09:00 Multivit/Ca Carb/ B Cmplx/FA/Prenat (Addie-Mikayla) 1 tab DAILY PO Last administered on 01/16/17 08:16; Admin Dose 1 TAB; Start 01/14/17 at 09:00 Polyethylene Glycol (Miralax) 17 gm BID PO Last administered on 01/16/17 08: 17; Admin Dose 17 GM; Start 01/13/17 at 21:00 Miscellaneous Information 1 ea NOTE XX ; Start 01/13/17 at 19:00 Glucose (Glutose) 15 gm Q15M PRN PO DECREASED GLUCOSE; Start 01/13/17 at 19:00 Glucose (Glutose) 22.5 gm Q15M PRN PO DECREASED GLUCOSE; Start 01/13/17 at 19: 00 Dextrose (D50w Syringe) 25 ml Q15M PRN IV DECREASED GLUCOSE; Start 01/13/17 at 19:00 Dextrose (D50w Syringe) 50 ml Q15M PRN IV DECREASED GLUCOSE; Start 01/13/17 at 19:00 Glucagon (Glucagen) 1 mg Q15M PRN IM DECREASED GLUCOSE; Start 01/13/17 at 19: 00 Glucose (Glutose) 15 gm Q15M PRN BUCCAL DECREASED GLUCOSE; Start 01/13/17 at 19:00 Morphine Sulfate (morphine) 2 mg Q4H PRN IV PAIN; Start 01/14/17 at 01:00 Promethazine HCl/ Codeine (Phenergan/ Codeine) 5 ml Q4H PRN PO COUGH Last administered on 01/16/17 04:11; Admin Dose 5 ML; Start 01/14/17 at 12:30 Hydrocodone Bit/ Homatropine Methylb (Hycodan Liquid) 5 ml Q6 PRN PO COUGH Last administered on 01/15/17 18:34; Admin Dose 5 ML; Start 01/14/17 at 13:30 Diagnostic Test (Pha) (Accu-Chek) 1 ea 02 XX ; Start 01/15/17 at 02:00 Insulin Glargine (Lantus) 21 unit DAILY@20 SC Last administered on 01/15/17 21:38; Admin Dose 21 UNIT; Start 01/15/17 at 20:00 Levofloxacin (Levaquin) 250 mg Q48H PO Last administered on 01/15/17 21:10; Admin Dose 250 MG; Start 01/15/17 at 20:00 ANTHONY DUPREE Jan 16, 2017 11:53
[2017-01-16] MEDS: HYDROCODONE/HOMATROPINE 5ML CUP PO PRN (14:26)
[2017-01-16] MEDS: LORAZEPAM 2 MG INJ IV PRN (14:27)
--- NOTE | 2017-01-16 16:08 | RADRPT ---
PROCEDURE: XR Chest 1 View. CLINICAL INDICATION: Shortness of breath. TECHNIQUE: AP view of the chest was obtained. COMPARISON: None. FINDINGS: The heart size is within normal limits. Calcified atherosclerosis is noted in the aorta. Subsegment al atelectasis is seen in the left lower lobe. No consolidations are identified. No pneumothorax is seen. The lungs are hypoinflated. The osseous structures appear grossly intact. Partially visualize d fracture fixation in the proximal right humerus is noted. IMPRESSION: Calcified atherosclerosis in the aorta. Hypoinflated lungs with atelectasis in the left lower lobe. RPTAT: AA .Neri Rivera MD, MD Date Time Electronically viewed and signed by .Neri Rivera MD, on 01/16/2017 16:07 .P/
--- NOTE | 2017-01-16 18:05 | CONS ---
Date/Time of Note Date/Time of Note DATE: 01/16/17 TIME: 18:04 Assessment/Plan Assessment/Plan Chief Complaint/Hosp Course IMPRESSION: 1. Fluid overload, uncontrolled hypertension. 2. End-stage renal disease. 3. Hypertension. 4. Diabetes mellitus. 5. Hyperkalemia. 6. Atherosclerotic heart disease. 7. Peripheral vascular disease. 8. History of dyslipidemia. 9 History of pneumonia. 10. History of leg cellulitis. 11. History of wound dehiscence. 12 URI PLAN HD levaquin FLUID RES Problems: Consultation Date/Type/Reason Admit Date/Time Jan 13, 2017 at 18:04 Type of Consultation: RENAL 24 HR Interval Summary Constitutional: other (SEEN ON HD) Exam/Review of Systems Vital Signs Vitals Vital Signs Date Time Temp Pulse Resp B/P Pulse Ox O2 Delivery O2 Flow Rate FiO2 01/16/17 16:11 88 01/16/17 15:30 98.4 19 169/69 98 01/16/17 15:16 2.0 01/16/17 13:58 21 01/16/17 07:49 Nasal Cannula Intake and Output 01/15/17 01/15/17 01/16/17 15:00 23:00 07:00 Intake Total 500 ml 880 ml 400 ml Output Total 4000 ml 3500 ml Balance -3500 ml 880 ml -3100 ml Exam Respiratory: clear to auscultation Cardiovascular: regular rate and rhythm Gastrointestinal: bowel sounds (+), soft Extremities: edema (++) Results Result Diagram: 01/16/17 0553 01/16/17 0553 Results 24 hrs Laboratory Tests Test 01/15/17 20:59 01/15/17 21:24 01/16/17 05:53 01/16/17 07:22 Bedside Glucose 54 L 100 90 White Blood Count 4.1 L Red Blood Count 2.53 L Hemoglobin 8.5 L Hematocrit 27.0 L Mean Corpuscular Volume 106.7 H Mean Corpuscular Hemoglobin 33.6 H Mean Corpuscular Hemoglobin Concent 31.5 L Red Cell Distribution Width 13.8 Platelet Count 191 Mean Platelet Volume 10.6 H Neutrophils % 48.6 Lymphocytes % 28.1 Monocytes % 16.7 H Eosinophils % 6.1 Basophils % 0.5 Nucleated Red Blood Cells % 0.0 Neutrophils # 2.0 Lymphocytes # 1.2 Monocytes # 0.7 Eosinophils # 0.3 Basophils # 0.0 Nucleated Red Blood Cells # 0.0 Sodium Level 138 Potassium Level 4.8 Chloride Level 99 Carbon Dioxide Level 32 H Anion Gap 12 Blood Urea Nitrogen 36 H Creatinine 4.57 H Glucose Level 102 Calcium Level 7.6 L Test 01/16/17 11:28 01/16/17 12:00 01/16/17 17:30 Bedside Glucose 59 L 76 260 H Medications Medications Current Medications Lorazepam (Ativan) 0.5 mg Q6H PRN IV ANXIETY Last administered on 01/16/17 14 :27; Admin Dose 0.5 MG; Start 01/13/17 at 18:30 Ondansetron HCl (Zofran Inj) 4 mg Q6H PRN IV NAUSEA AND/OR VOMITING; Start 01/20 at 18:30 Nitroglycerin (Nitroglycerin (Sl Tab) 0.4 Mg) 1 tab Q5M PRN SL CHEST PAIN; Start 01/13/17 at 18:30 Acetaminophen (Tylenol Tab) 650 mg Q6H PRN PO PAIN LEVEL 1-3 OR FEVER Last administered on 01/15/17 08:20; Admin Dose 650 MG; Start 01/13/17 at 18:30 Morphine Sulfate (morphine) 2 mg Q4H PRN IV PAIN LEVEL 7-10 Last administered on 01/16/17 14:26; Admin Dose 2 MG; Start 01/13/17 at 18:30 Famotidine (Pepcid) 10 mg HS PO Last administered on 01/15/17 21:09; Admin Dose 10 MG; Start 01/13/17 at 21:00 Heparin Sodium (Porcine) (Heparin (5000 Units/0.5 ml)) 5,000 unit Q12 SC Last administered on 01/16/17 08:19; Admin Dose 5,000 UNIT; Start 01/13/17 at 21: 00 Amlodipine Besylate (Norvasc) 10 mg DAILY PO ; Start 01/14/17 at 09:00 Aspirin (Halfprin) 81 mg DAILY PO Last administered on 01/16/17 08:15; Admin Dose 81 MG; Start 01/14/17 at 09:00 Atorvastatin Calcium (Lipitor) 40 mg QHS PO Last administered on 01/15/17 21: 09; Admin Dose 40 MG; Start 01/13/17 at 21:00 Carvedilol (Coreg) 6.25 mg DAILY PO ; Start 01/14/17 at 09:00 Clonidine (Catapres) 0.2 mg TID PRN PO FOR SBP >160; Start 01/13/17 at 19:00 Clopidogrel Bisulfate (plaVIX) 75 mg DAILY PO Last administered on 01/16/17 08:16; Admin Dose 75 MG; Start 01/14/17 at 09:00 Folic Acid (Folic Acid) 1 mg DAILY PO Last administered on 01/16/17 08:16; Admin Dose 1 MG; Start 01/14/17 at 09:00 Gabapentin (Neurontin) 300 mg BID PO Last administered on 01/16/17 08:16; Admin Dose 300 MG; Start 01/13/17 at 21:00 Linagliptin (Tradjenta) 5 mg DAILY PO Last administered on 01/16/17 08:16; Admin Dose 5 MG; Start 01/14/17 at 09:00 Multivit/Ca Carb/ B Cmplx/FA/Prenat (Addie-Mikayla) 1 tab DAILY PO Last administered on 01/16/17 08:16; Admin Dose 1 TAB; Start 01/14/17 at 09:00 Polyethylene Glycol (Miralax) 17 gm BID PO Last administered on 01/16/17 08: 17; Admin Dose 17 GM; Start 01/13/17 at 21:00 Miscellaneous Information 1 ea NOTE XX ; Start 01/13/17 at 19:00 Glucose (Glutose) 15 gm Q15M PRN PO DECREASED GLUCOSE; Start 01/13/17 at 19:00 Glucose (Glutose) 22.5 gm Q15M PRN PO DECREASED GLUCOSE; Start 01/13/17 at 19: 00 Dextrose (D50w Syringe) 25 ml Q15M PRN IV DECREASED GLUCOSE; Start 01/13/17 at 19:00 Dextrose (D50w Syringe) 50 ml Q15M PRN IV DECREASED GLUCOSE; Start 01/13/17 at 19:00 Glucagon (Glucagen) 1 mg Q15M PRN IM DECREASED GLUCOSE; Start 01/13/17 at 19: 00 Glucose (Glutose) 15 gm Q15M PRN BUCCAL DECREASED GLUCOSE; Start 01/13/17 at 19:00 Morphine Sulfate (morphine) 2 mg Q4H PRN IV PAIN; Start 01/14/17 at 01:00 Promethazine HCl/ Codeine (Phenergan/ Codeine) 5 ml Q4H PRN PO COUGH Last administered on 01/16/17 04:11; Admin Dose 5 ML; Start 01/14/17 at 12:30 Hydrocodone Bit/ Homatropine Methylb (Hycodan Liquid) 5 ml Q6 PRN PO COUGH Last administered on 01/16/17 14:26; Admin Dose 5 ML; Start 01/14/17 at 13:30 Diagnostic Test (Pha) (Accu-Chek) 1 ea 02 XX ; Start 01/15/17 at 02:00 Levofloxacin (Levaquin) 250 mg Q48H PO Last administered on 01/15/17 21:10; Admin Dose 250 MG; Start 01/15/17 at 20:00 Insulin Glargine (Lantus) 18 unit DAILY@20 SC ; Start 01/16/17 at 20:00 Levofloxacin (Levaquin) 250 mg DAILY@06 PO ; Start 01/17/17 at 06:00 ZOFIA REAL MD Jan 16, 2017 18:05
[2017-01-16] MEDS: ATORVASTATIN 40 MG TAB PO SCH (20:40)
[2017-01-16] MEDS: FAMOTIDINE 20 MG TAB PO SCH (20:40)
[2017-01-16] MEDS: INSULIN GLARGINE [LANtus] 3 ML PEN SC SCH (20:45)
[2017-01-16] MEDS: ACETAMINOPHEN 325 MG TAB PO PRN (23:54)
[2017-01-17] VITALS (16 sets, daily range): BP systolic 100–157; BP diastolic 45–83; PULSE 68–88; RESP 16–20
[2017-01-17] MEDS: LEVALBUTEROL (NEB) 0.63 MG/3 ML AMP HHN SCH ×4 (01:51→19:24)
[2017-01-17] MEDS: ACCU-CHEK XX SCH (02:00)
[2017-01-17] MEDS: morphine 2 MG INJ IV PRN ×4 (02:50→20:44)
[2017-01-17] MEDS ORDERED: LEVOFLOXACIN 250 MG TAB PO SCH (06:00)
[2017-01-17] MEDS: PROMETHAZINE/CODEINE 5ML CUP PO PRN (06:05)
[2017-01-17 06:35] LABS: BASOPHILS % 0.5 % (0.0-2.0); EOSINOPHILS # 0.3 10^3/ul (0.0-0.5); EOSINOPHILS % 5.7 % (0.0-7.0); HEMATOCRIT 27.5 % (37.0-47.0); HEMOGLOBIN 8.5 g/dl (12.0-16.0); LYMPHOCYTES # 1.3 10^3/ul (0.8-2.9); LYMPHOCYTES % 28.7 % (15.0-51.0); MEAN CORPUSCULAR HEMOGLOBIN 32.9 pg (29.0-33.0); MEAN CORPUSCULAR HGB CONC 30.9 g/dl (32.0-37.0); MEAN CORPUSCULAR VOLUME 106.6 fl (82.0-101.0); MEAN PLATELET VOLUME 11.4 fl (7.4-10.4); MONOCYTE # 0.7 10^3/ul (0.3-0.9); MONOCYTES % 16.3 % (0.0-11.0); NEUTROPHIL # 2.1 10^3/ul (1.6-7.5); NEUTROPHILS % 48.6 % (39.0-77.0); PLATELET COUNT 203 10^3/UL (140-415); RED BLOOD COUNT 2.58 10^6/ul (4.20-5.40); WHITE BLOOD COUNT 4.4 10^3/ul (4.8-10.8)
[2017-01-17 07:17] LABS: CALCIUM 7.5 mg/dl (8.4-10.2); CREATININE 4.6 mg/dl (0.44-1.00); POTASSIUM 4.8 mmol/L (3.5-5.1)
[2017-01-17] MEDS: SEVELAMER CARBONATE 0.8 GM PKT PO SCH ×3 (08:15→17:03)
[2017-01-17] MEDS: MULTIVIT/CA CARB/B CMPLX/FA TAB PO SCH (08:17)
[2017-01-17] MEDS: POLYETHYLENE GLYCOL 17 GM PACKET PO SCH ×2 (08:17→20:46)
[2017-01-17] MEDS: PANTOPRAZOLE (EC) 40 MG TAB PO SCH (08:18)
[2017-01-17] MEDS: FOLIC ACID 1 MG TAB PO SCH (08:18)
[2017-01-17] MEDS: ASPIRIN (EC) 81 MG TAB PO SCH (08:18)
[2017-01-17] MEDS: CLOPIDOGREL 75 MG TAB PO SCH (08:18)
[2017-01-17] MEDS: AMLODIPINE 10 MG TAB PO SCH (08:18)
[2017-01-17] MEDS: GABAPENTIN 300 MG CAP PO SCH ×2 (08:18→20:45)
[2017-01-17] MEDS: LINAGLIPTIN 5 MG TABLET PO SCH (08:19)
[2017-01-17] MEDS: HEPARIN 5,000 UNIT/0.5 ML VIAL SC SCH ×2 (08:21→20:48)
[2017-01-17] MEDS: INSULIN ASPART [NOVOLOG] 3 ML PEN SC SCH ×7 (08:22→20:48)
[2017-01-17] MEDS: LORAZEPAM 2 MG INJ IV PRN ×2 (09:53→20:45)
--- NOTE | 2017-01-17 11:16 | PN ---
Date/Time of Note Date/Time of Note DATE: 01/17/17 TIME: 11:14 Assessment/Plan VTE Prophylaxis VTE Prophylaxis Intervention: other Lines/Catheters [facility]from [facility] Sal[facility] Urinary Cath still in place: No Assessment/Plan Chief Complaint/Hosp Course -Acute respiratory failure secondary to pulmonary edema -Hemodialysis dependent end-stage renal disease, Dr. Garcia is following in nephrology consultation, continue hemodialysis. -E. coli UTI, continue Levaquin. -Diabetes mellitus type 2, hemoglobin A1c 6.5, continue Tradjenta Lantus and NovoLog -HTN -Severe PVD, with multiple vascular intervention including a left lower extremity bypass. -S/p orthopedic procedures to RUE with metal prosthetic after bone Fx -Poor medical compliance For patient's chest pain, will order chest CT Problems: Subjective 24 Hr Interval Summary Free Text/Dictation Patient feels better but has pain in lungs Exam/Review of Systems Vital Signs Vitals Vital Signs Date Time Temp Pulse Resp B/P Pulse Ox O2 Delivery O2 Flow Rate FiO2 01/17/17 08:35 68 01/17/17 08:20 22 93 22 01/17/17 07:32 98.9 146/83 01/17/17 01:52 2.0 01/16/17 20:00 Nasal Cannula Intake and Output 01/16/17 01/16/17 01/17/17 15:00 23:00 07:00 Intake Total 500 ml 600 ml Output Total 4000 ml Balance -3500 ml 600 ml Exam Constitutional: well developed Head: atraumatic, normocephalic Neck: supple Respiratory: clear to auscultation Cardiovascular: regular rate and rhythm Gastrointestinal: non-tender, soft Extremities: normal pulses Results Result Diagram: 01/17/17 0548 01/17/17 0548 Results 24 hrs Laboratory Tests Test 01/16/17 11:28 01/16/17 12:00 01/16/17 17:30 01/16/17 20:39 Bedside Glucose 59 L 76 260 H 115 Test 01/17/17 05:48 01/17/17 08:14 White Blood Count 4.4 L Red Blood Count 2.58 L Hemoglobin 8.5 L Hematocrit 27.5 L Mean Corpuscular Volume 106.6 H Mean Corpuscular Hemoglobin 32.9 Mean Corpuscular Hemoglobin Concent 30.9 L Red Cell Distribution Width 14.0 Platelet Count 203 Mean Platelet Volume 11.4 H Neutrophils % 48.6 Lymphocytes % 28.7 Monocytes % 16.3 H Eosinophils % 5.7 Basophils % 0.5 Nucleated Red Blood Cells % 0.0 Neutrophils # 2.1 Lymphocytes # 1.3 Monocytes # 0.7 Eosinophils # 0.3 Basophils # 0.0 Nucleated Red Blood Cells # 0.0 Sodium Level 130 L Potassium Level 4.8 Chloride Level 94 L Carbon Dioxide Level 33 H Anion Gap 8 Blood Urea Nitrogen 35 H Creatinine 4.60 H Glucose Level 213 # Calcium Level 7.5 L Bedside Glucose 213 Medications Medications Current Medications Lorazepam (Ativan) 0.5 mg Q6H PRN IV ANXIETY Last administered on 01/17/17 09 :53; Admin Dose 0.5 MG; Start 01/13/17 at 18:30 Ondansetron HCl (Zofran Inj) 4 mg Q6H PRN IV NAUSEA AND/OR VOMITING; Start 01/20 at 18:30 Nitroglycerin (Nitroglycerin (Sl Tab) 0.4 Mg) 1 tab Q5M PRN SL CHEST PAIN; Start 01/13/17 at 18:30 Acetaminophen (Tylenol Tab) 650 mg Q6H PRN PO PAIN LEVEL 1-3 OR FEVER Last administered on 01/16/17 23:54; Admin Dose 650 MG; Start 01/13/17 at 18:30 Morphine Sulfate (morphine) 2 mg Q4H PRN IV PAIN LEVEL 7-10 Last administered on 01/17/17 08:20; Admin Dose 2 MG; Start 01/13/17 at 18:30 Famotidine (Pepcid) 10 mg HS PO Last administered on 01/16/17 20:40; Admin Dose 10 MG; Start 01/13/17 at 21:00 Heparin Sodium (Porcine) (Heparin (5000 Units/0.5 ml)) 5,000 unit Q12 SC Last administered on 01/17/17 08:21; Admin Dose 5,000 UNIT; Start 01/13/17 at 21: 00 Amlodipine Besylate (Norvasc) 10 mg DAILY PO Last administered on 01/17/17 08 :18; Admin Dose 10 MG; Start 01/14/17 at 09:00 Aspirin (Halfprin) 81 mg DAILY PO Last administered on 01/17/17 08:18; Admin Dose 81 MG; Start 01/14/17 at 09:00 Atorvastatin Calcium (Lipitor) 40 mg QHS PO Last administered on 01/16/17 20: 40; Admin Dose 40 MG; Start 01/13/17 at 21:00 Carvedilol (Coreg) 6.25 mg DAILY PO Last administered on 01/17/17 08:18; Admin Dose 6.25 MG; Start 01/14/17 at 09:00 Clonidine (Catapres) 0.2 mg TID PRN PO FOR SBP >160; Start 01/13/17 at 19:00 Clopidogrel Bisulfate (plaVIX) 75 mg DAILY PO Last administered on 01/17/17 08:18; Admin Dose 75 MG; Start 01/14/17 at 09:00 Folic Acid (Folic Acid) 1 mg DAILY PO Last administered on 01/17/17 08:18; Admin Dose 1 MG; Start 01/14/17 at 09:00 Gabapentin (Neurontin) 300 mg BID PO Last administered on 01/17/17 08:18; Admin Dose 300 MG; Start 01/13/17 at 21:00 Linagliptin (Tradjenta) 5 mg DAILY PO Last administered on 01/17/17 08:19; Admin Dose 5 MG; Start 01/14/17 at 09:00 Multivit/Ca Carb/ B Cmplx/FA/Prenat (Addie-Mikayla) 1 tab DAILY PO Last administered on 01/17/17 08:17; Admin Dose 1 TAB; Start 01/14/17 at 09:00 Polyethylene Glycol (Miralax) 17 gm BID PO Last administered on 01/17/17 08: 17; Admin Dose 17 GM; Start 01/13/17 at 21:00 Miscellaneous Information 1 ea NOTE XX ; Start 01/13/17 at 19:00 Glucose (Glutose) 15 gm Q15M PRN PO DECREASED GLUCOSE; Start 01/13/17 at 19:00 Glucose (Glutose) 22.5 gm Q15M PRN PO DECREASED GLUCOSE; Start 01/13/17 at 19: 00 Dextrose (D50w Syringe) 25 ml Q15M PRN IV DECREASED GLUCOSE; Start 01/13/17 at 19:00 Dextrose (D50w Syringe) 50 ml Q15M PRN IV DECREASED GLUCOSE; Start 01/13/17 at 19:00 Glucagon (Glucagen) 1 mg Q15M PRN IM DECREASED GLUCOSE; Start 01/13/17 at 19: 00 Glucose (Glutose) 15 gm Q15M PRN BUCCAL DECREASED GLUCOSE; Start 01/13/17 at 19:00 Morphine Sulfate (morphine) 2 mg Q4H PRN IV PAIN; Start 01/14/17 at 01:00 Promethazine HCl/ Codeine (Phenergan/ Codeine) 5 ml Q4H PRN PO COUGH Last administered on 01/17/17 06:05; Admin Dose 5 ML; Start 01/14/17 at 12:30 Hydrocodone Bit/ Homatropine Methylb (Hycodan Liquid) 5 ml Q6 PRN PO COUGH Last administered on 01/16/17 14:26; Admin Dose 5 ML; Start 01/14/17 at 13:30 Diagnostic Test (Pha) (Accu-Chek) 1 ea 02 XX ; Start 01/15/17 at 02:00 Levofloxacin (Levaquin) 250 mg Q48H PO Last administered on 01/15/17 21:10; Admin Dose 250 MG; Start 01/15/17 at 20:00 Insulin Glargine (Lantus) 18 unit DAILY@20 SC Last administered on 01/16/17 20:45; Admin Dose 18 UNIT; Start 01/16/17 at 20:00 Levofloxacin (Levaquin) 250 mg DAILY@06 PO Last administered on 01/17/17 06: 05; Admin Dose 250 MG; Start 01/17/17 at 06:00 CARYL PANTOJA Jan 17, 2017 11:16
[2017-01-17] MEDS ORDERED: IOHEXOL 300MG/ML 150 ML BTL ONE (13:17)
[2017-01-17] MEDS ORDERED: SOD CHLORIDE 0.9% 100 ML ONE (13:17)
--- NOTE | 2017-01-17 15:16 | CONS ---
Date/Time of Note Date/Time of Note DATE: 01/17/17 TIME: 15:15 Assessment/Plan Assessment/Plan Chief Complaint/Hosp Course IMPRESSION: 1. Fluid overload, uncontrolled hypertension.BETTER 2. End-stage renal disease. 3. Hypertension. 4. Diabetes mellitus. 5. Hyperkalemia. 6. Atherosclerotic heart disease. 7. Peripheral vascular disease. 8. History of dyslipidemia. 9 History of pneumonia. 10. History of leg cellulitis. 11. History of wound dehiscence. 12 URI PLAN HD levaquin FLUID RES ELEVATE LEGS Problems: Consultation Date/Type/Reason Admit Date/Time Jan 13, 2017 at 18:04 Type of Consultation: RENAL 24 HR Interval Summary Constitutional: other Exam/Review of Systems Vital Signs Vitals Vital Signs Date Time Temp Pulse Resp B/P Pulse Ox O2 Delivery O2 Flow Rate FiO2 01/17/17 12:36 70 01/17/17 11:23 97.5 20 107/59 93 01/17/17 08:20 22 01/17/17 08:10 Nasal Cannula 2.0 Intake and Output 01/16/17 01/16/17 01/17/17 15:00 23:00 07:00 Intake Total 500 ml 600 ml Output Total 4000 ml Balance -3500 ml 600 ml Exam Respiratory: diminished breath sounds Cardiovascular: regular rate and rhythm Gastrointestinal: bowel sounds, soft Extremities: edema (++) Results Result Diagram: 01/17/17 0548 01/17/17 0548 Results 24 hrs Laboratory Tests Test 01/16/17 17:30 01/16/17 20:39 01/17/17 05:48 01/17/17 08:14 Bedside Glucose 260 H 115 213 White Blood Count 4.4 L Red Blood Count 2.58 L Hemoglobin 8.5 L Hematocrit 27.5 L Mean Corpuscular Volume 106.6 H Mean Corpuscular Hemoglobin 32.9 Mean Corpuscular Hemoglobin Concent 30.9 L Red Cell Distribution Width 14.0 Platelet Count 203 Mean Platelet Volume 11.4 H Neutrophils % 48.6 Lymphocytes % 28.7 Monocytes % 16.3 H Eosinophils % 5.7 Basophils % 0.5 Nucleated Red Blood Cells % 0.0 Neutrophils # 2.1 Lymphocytes # 1.3 Monocytes # 0.7 Eosinophils # 0.3 Basophils # 0.0 Nucleated Red Blood Cells # 0.0 Sodium Level 130 L Potassium Level 4.8 Chloride Level 94 L Carbon Dioxide Level 33 H Anion Gap 8 Blood Urea Nitrogen 35 H Creatinine 4.60 H Glucose Level 213 # Calcium Level 7.5 L Test 01/17/17 11:59 Bedside Glucose 95 Medications Medications Current Medications Lorazepam (Ativan) 0.5 mg Q6H PRN IV ANXIETY Last administered on 01/17/17 09 :53; Admin Dose 0.5 MG; Start 01/13/17 at 18:30 Ondansetron HCl (Zofran Inj) 4 mg Q6H PRN IV NAUSEA AND/OR VOMITING; Start 01/20 at 18:30 Nitroglycerin (Nitroglycerin (Sl Tab) 0.4 Mg) 1 tab Q5M PRN SL CHEST PAIN; Start 01/13/17 at 18:30 Acetaminophen (Tylenol Tab) 650 mg Q6H PRN PO PAIN LEVEL 1-3 OR FEVER Last administered on 01/16/17 23:54; Admin Dose 650 MG; Start 01/13/17 at 18:30 Morphine Sulfate (morphine) 2 mg Q4H PRN IV PAIN LEVEL 7-10 Last administered on 01/17/17 08:20; Admin Dose 2 MG; Start 01/13/17 at 18:30 Famotidine (Pepcid) 10 mg HS PO Last administered on 01/16/17 20:40; Admin Dose 10 MG; Start 01/13/17 at 21:00 Heparin Sodium (Porcine) (Heparin (5000 Units/0.5 ml)) 5,000 unit Q12 SC Last administered on 01/17/17 08:21; Admin Dose 5,000 UNIT; Start 01/13/17 at 21: 00 Amlodipine Besylate (Norvasc) 10 mg DAILY PO Last administered on 01/17/17 08 :18; Admin Dose 10 MG; Start 01/14/17 at 09:00 Aspirin (Halfprin) 81 mg DAILY PO Last administered on 01/17/17 08:18; Admin Dose 81 MG; Start 01/14/17 at 09:00 Atorvastatin Calcium (Lipitor) 40 mg QHS PO Last administered on 01/16/17 20: 40; Admin Dose 40 MG; Start 01/13/17 at 21:00 Carvedilol (Coreg) 6.25 mg DAILY PO Last administered on 01/17/17 08:18; Admin Dose 6.25 MG; Start 01/14/17 at 09:00 Clonidine (Catapres) 0.2 mg TID PRN PO FOR SBP >160; Start 01/13/17 at 19:00 Clopidogrel Bisulfate (plaVIX) 75 mg DAILY PO Last administered on 01/17/17 08:18; Admin Dose 75 MG; Start 01/14/17 at 09:00 Folic Acid (Folic Acid) 1 mg DAILY PO Last administered on 01/17/17 08:18; Admin Dose 1 MG; Start 01/14/17 at 09:00 Gabapentin (Neurontin) 300 mg BID PO Last administered on 01/17/17 08:18; Admin Dose 300 MG; Start 01/13/17 at 21:00 Linagliptin (Tradjenta) 5 mg DAILY PO Last administered on 01/17/17 08:19; Admin Dose 5 MG; Start 01/14/17 at 09:00 Multivit/Ca Carb/ B Cmplx/FA/Prenat (Addie-Mikayla) 1 tab DAILY PO Last administered on 01/17/17 08:17; Admin Dose 1 TAB; Start 01/14/17 at 09:00 Polyethylene Glycol (Miralax) 17 gm BID PO Last administered on 01/17/17 08: 17; Admin Dose 17 GM; Start 01/13/17 at 21:00 Miscellaneous Information 1 ea NOTE XX ; Start 01/13/17 at 19:00 Glucose (Glutose) 15 gm Q15M PRN PO DECREASED GLUCOSE; Start 01/13/17 at 19:00 Glucose (Glutose) 22.5 gm Q15M PRN PO DECREASED GLUCOSE; Start 01/13/17 at 19: 00 Dextrose (D50w Syringe) 25 ml Q15M PRN IV DECREASED GLUCOSE; Start 01/13/17 at 19:00 Dextrose (D50w Syringe) 50 ml Q15M PRN IV DECREASED GLUCOSE; Start 01/13/17 at 19:00 Glucagon (Glucagen) 1 mg Q15M PRN IM DECREASED GLUCOSE; Start 01/13/17 at 19: 00 Glucose (Glutose) 15 gm Q15M PRN BUCCAL DECREASED GLUCOSE; Start 01/13/17 at 19:00 Morphine Sulfate (morphine) 2 mg Q4H PRN IV PAIN; Start 01/14/17 at 01:00 Promethazine HCl/ Codeine (Phenergan/ Codeine) 5 ml Q4H PRN PO COUGH Last administered on 01/17/17 06:05; Admin Dose 5 ML; Start 01/14/17 at 12:30 Hydrocodone Bit/ Homatropine Methylb (Hycodan Liquid) 5 ml Q6 PRN PO COUGH Last administered on 01/16/17 14:26; Admin Dose 5 ML; Start 01/14/17 at 13:30 Diagnostic Test (Pha) (Accu-Chek) 1 ea 02 XX ; Start 01/15/17 at 02:00 Levofloxacin (Levaquin) 250 mg Q48H PO Last administered on 01/15/17 21:10; Admin Dose 250 MG; Start 01/15/17 at 20:00 Insulin Glargine (Lantus) 18 unit DAILY@20 SC Last administered on 01/16/17 20:45; Admin Dose 18 UNIT; Start 01/16/17 at 20:00 Levofloxacin (Levaquin) 250 mg DAILY@06 PO Last administered on 01/17/17 06: 05; Admin Dose 250 MG; Start 01/17/17 at 06:00 ZOFIA REAL MD Jan 17, 2017 15:16
[2017-01-17] MEDS: LEVOFLOXACIN 250 MG TAB PO SCH (20:00)
[2017-01-17] MEDS: ATORVASTATIN 40 MG TAB PO SCH (20:45)
[2017-01-17] MEDS: FAMOTIDINE 20 MG TAB PO SCH (20:45)
[2017-01-17] MEDS: INSULIN GLARGINE [LANtus] 3 ML PEN SC SCH (20:47)
[2017-01-18] VITALS (20 sets, daily range): BP systolic 90–137; BP diastolic 52–77; PULSE 69–86; RESP 18–20
[2017-01-18] MEDS: LEVALBUTEROL (NEB) 0.63 MG/3 ML AMP HHN SCH ×4 (00:35→19:53)
[2017-01-18] MEDS: PROMETHAZINE/CODEINE 5ML CUP PO PRN ×2 (00:54→05:41)
[2017-01-18] MEDS: ACCU-CHEK XX SCH (02:00)
[2017-01-18] MEDS: morphine 2 MG INJ IV PRN ×3 (05:42→18:18)
[2017-01-18] MEDS: GABAPENTIN 300 MG CAP PO SCH ×2 (07:58→20:58)
[2017-01-18] MEDS: FOLIC ACID 1 MG TAB PO SCH (07:58)
[2017-01-18] MEDS: ASPIRIN (EC) 81 MG TAB PO SCH (07:59)
[2017-01-18] MEDS: PANTOPRAZOLE (EC) 40 MG TAB PO SCH (07:59)
[2017-01-18] MEDS: CLOPIDOGREL 75 MG TAB PO SCH (07:59)
[2017-01-18] MEDS: MULTIVIT/CA CARB/B CMPLX/FA TAB PO SCH (07:59)
[2017-01-18] MEDS: AMLODIPINE 10 MG TAB PO SCH (07:59)
[2017-01-18] MEDS: LINAGLIPTIN 5 MG TABLET PO SCH (07:59)
[2017-01-18] MEDS: SEVELAMER CARBONATE 0.8 GM PKT PO SCH ×3 (08:00→17:07)
[2017-01-18] MEDS: ACETAMINOPHEN 325 MG TAB PO PRN ×2 (08:00→16:28)
[2017-01-18] MEDS: INSULIN ASPART [NOVOLOG] 3 ML PEN SC SCH ×7 (08:02→21:00)
[2017-01-18] MEDS: HEPARIN 5,000 UNIT/0.5 ML VIAL SC SCH ×2 (08:03→21:00)
[2017-01-18] MEDS: LORAZEPAM 2 MG INJ IV PRN ×2 (08:11→20:59)
[2017-01-18] MEDS: POLYETHYLENE GLYCOL 17 GM PACKET PO SCH ×2 (08:11→20:59)
--- NOTE | 2017-01-18 08:19 | RADRPT ---
PROCEDURE: CT chest with and without contrast. CLINICAL INDICATION: Chest pain. TECHNIQUE: CT of the chest was performed utilizing axial images with reconstructions in sagittal a nd coronal planes before and following the intravenous administration of 90 cc of Omnipaque-300 cont rast. The administered radiation dose is CTDI 16.46, 19.75 mGy, DLP 605.26, 726.28 mGy-cm. One or mo re of the following dose reduction techniques were used: Automated exposure control, Adjustment of t he mA and/or kV according to patient size, or Use of iterative reconstruction technique. COMPARISON: There are no similar studies submitted for comparison. FINDINGS: Chest wall and lower neck: The thyroid is heterogeneous. There is no axillary adenopathy. Heart: The heart is normal size without pericardial effusion. There are coronary artery calcificatio ns. Vessels: The aorta is normal in caliber. Mediastinum and yudi: There is no hilar adenopathy. No mediastinal adenopathy is identified. Lung and pleura: The trachea and tracheobronchial tree are patent.There is no focal consolidation.Th ere is no pleural effusion. There is minimal bibasilar atelectasis/scarring. There is a 2 mm left up per lobe subpleural nodule (image 30 series 4). There are minimal left lower lobe ground-glass opaci ties. Upper abdomen: There is a 2 mm vascular calcification versus renal calculus within the right kidney which is incompletely imaged. Osseous structures: No destructive lytic or blastic osseous lesion is identified. IMPRESSION: 1. No focal consolidation, pleural effusion, or pneumothorax. 2. Minimal left lower lobe ground-glass opacities. 3. There is a 2 mm subpleural nodule within the left upper lobe.Follow-up is recommended per Fleisch ner criteria below: 4. Heterogeneous thyroid. Correlate with serum chemistries as clinically warranted. 6. There is a 2 mm calcification within the right renal collecting system/vasculature which may repr esent a renal calculus or vascular calcification. Further findings as detailed above. Low-Risk Patient Nodule Size Less than or equal to 4 mm: No follow-up needed Greater than 4-6 mm: Follow-up CT at 12 mo; if unchanged, no further follow-up. Greater than 6-8 mm: Initial follow-up CT at 6-12 mo then at 18-24 mo if no change. Greater than 8 mm: Follow-up CT at around 3, 9 and 24 mo, dynamic contrast-enhanced CT, PET and/or b iopsy. High-Risk Patient Nodule Size Less than or equal to 4 mm: Follow-up CT at 12 mo; if unchanged, no further follow-up. Greater than 4-6 mm: Initial follow-up CT at 6-12 mo then at 18-24 mo if no change. Greater than 6-8 mm: Initial follow-up CT at 3-6 mo then at 9-12 and 24 mo if no change. Greater than 8 mm: Same as for low-risk patient. RPTAT: PP .Duane Molina MD, Date Time Electronically viewed and signed by .Duane Molina MD, on 01/18/2017 08:19 .F/
--- NOTE | 2017-01-18 12:33 | PN ---
Date/Time of Note Date/Time of Note DATE: 01/18/17 TIME: 12:32 Assessment/Plan VTE Prophylaxis VTE Prophylaxis Intervention: other Lines/Catheters IV C[facility]ter Type [facility]from [facility] Urinary Cath still in place: No Assessment/Plan Chief Complaint/Hosp Course -Acute respiratory failure secondary to pulmonary edema -Hemodialysis dependent end-stage renal disease, Dr. Garcia is following in nephrology consultation, continue hemodialysis. -E. coli UTI, continue Levaquin. -Diabetes mellitus type 2, hemoglobin A1c 6.5, continue Tradjenta Lantus and NovoLog -HTN -Severe PVD, with multiple vascular intervention including a left lower extremity bypass. -S/p orthopedic procedures to RUE with metal prosthetic after bone Fx -Poor medical compliance For patient's chest pain, will order chest CT Problems: Subjective 24 Hr Interval Summary Free Text/Dictation Patient was unable to have hemodialysis because of clot in the fistula. Exam/Review of Systems Vital Signs Vitals Vital Signs Date Time Temp Pulse Resp B/P Pulse Ox O2 Delivery O2 Flow Rate FiO2 01/18/17 12:12 69 01/18/17 10:58 98.7 18 125/74 91 01/18/17 08:10 Nasal Cannula 2.0 01/18/17 00:48 28 Intake and Output 01/17/17 01/17/17 01/18/17 15:00 23:00 07:00 Intake Total 300 ml 1100 ml 500 ml Output Total 300 ml Balance 300 ml 800 ml 500 ml Exam Constitutional: well developed Head: atraumatic, normocephalic Neck: supple Respiratory: clear to auscultation Cardiovascular: regular rate and rhythm Gastrointestinal: soft Extremities: normal pulses Results Result Diagram: 01/17/17 0548 01/17/17 0548 Results 24 hrs Laboratory Tests Test 01/17/17 17:02 01/17/17 20:40 01/18/17 07:52 Bedside Glucose 133 99 200 Medications Medications Current Medications Lorazepam (Ativan) 0.5 mg Q6H PRN IV ANXIETY Last administered on 01/18/17 08 :11; Admin Dose 0.5 MG; Start 01/13/17 at 18:30 Ondansetron HCl (Zofran Inj) 4 mg Q6H PRN IV NAUSEA AND/OR VOMITING Last administered on 01/17/17 20:45; Admin Dose 4 MG; Start 01/13/17 at 18:30 Nitroglycerin (Nitroglycerin (Sl Tab) 0.4 Mg) 1 tab Q5M PRN SL CHEST PAIN; Start 01/13/17 at 18:30 Acetaminophen (Tylenol Tab) 650 mg Q6H PRN PO PAIN LEVEL 1-3 OR FEVER Last administered on 01/18/17 08:00; Admin Dose 650 MG; Start 01/13/17 at 18:30 Morphine Sulfate (morphine) 2 mg Q4H PRN IV PAIN LEVEL 7-10 Last administered on 01/18/17 12:24; Admin Dose 2 MG; Start 01/13/17 at 18:30 Famotidine (Pepcid) 10 mg HS PO Last administered on 01/17/17 20:45; Admin Dose 10 MG; Start 01/13/17 at 21:00 Heparin Sodium (Porcine) (Heparin (5000 Units/0.5 ml)) 5,000 unit Q12 SC Last administered on 01/18/17 08:03; Admin Dose 5,000 UNIT; Start 01/13/17 at 21: 00 Amlodipine Besylate (Norvasc) 10 mg DAILY PO Last administered on 01/18/17 07 :59; Admin Dose 10 MG; Start 01/14/17 at 09:00 Aspirin (Halfprin) 81 mg DAILY PO Last administered on 01/18/17 07:59; Admin Dose 81 MG; Start 01/14/17 at 09:00 Atorvastatin Calcium (Lipitor) 40 mg QHS PO Last administered on 01/17/17 20: 45; Admin Dose 40 MG; Start 01/13/17 at 21:00 Carvedilol (Coreg) 6.25 mg DAILY PO Last administered on 01/18/17 07:59; Admin Dose 6.25 MG; Start 01/14/17 at 09:00 Clonidine (Catapres) 0.2 mg TID PRN PO FOR SBP >160; Start 01/13/17 at 19:00 Clopidogrel Bisulfate (plaVIX) 75 mg DAILY PO Last administered on 01/18/17 07:59; Admin Dose 75 MG; Start 01/14/17 at 09:00 Folic Acid (Folic Acid) 1 mg DAILY PO Last administered on 01/18/17 07:58; Admin Dose 1 MG; Start 01/14/17 at 09:00 Gabapentin (Neurontin) 300 mg BID PO Last administered on 01/18/17 07:58; Admin Dose 300 MG; Start 01/13/17 at 21:00 Linagliptin (Tradjenta) 5 mg DAILY PO Last administered on 01/18/17 07:59; Admin Dose 5 MG; Start 01/14/17 at 09:00 Multivit/Ca Carb/ B Cmplx/FA/Prenat (Addie-Mikalya) 1 tab DAILY PO Last administered on 01/18/17 07:59; Admin Dose 1 TAB; Start 01/14/17 at 09:00 Polyethylene Glycol (Miralax) 17 gm BID PO Last administered on 01/18/17 08: 11; Admin Dose 17 GM; Start 01/13/17 at 21:00 Miscellaneous Information 1 ea NOTE XX ; Start 01/13/17 at 19:00 Glucose (Glutose) 15 gm Q15M PRN PO DECREASED GLUCOSE; Start 01/13/17 at 19:00 Glucose (Glutose) 22.5 gm Q15M PRN PO DECREASED GLUCOSE; Start 01/13/17 at 19: 00 Dextrose (D50w Syringe) 25 ml Q15M PRN IV DECREASED GLUCOSE; Start 01/13/17 at 19:00 Dextrose (D50w Syringe) 50 ml Q15M PRN IV DECREASED GLUCOSE; Start 01/13/17 at 19:00 Glucagon (Glucagen) 1 mg Q15M PRN IM DECREASED GLUCOSE; Start 01/13/17 at 19: 00 Glucose (Glutose) 15 gm Q15M PRN BUCCAL DECREASED GLUCOSE; Start 01/13/17 at 19:00 Morphine Sulfate (morphine) 2 mg Q4H PRN IV PAIN; Start 01/14/17 at 01:00 Promethazine HCl/ Codeine (Phenergan/ Codeine) 5 ml Q4H PRN PO COUGH Last administered on 01/18/17 05:41; Admin Dose 5 ML; Start 01/14/17 at 12:30 Hydrocodone Bit/ Homatropine Methylb (Hycodan Liquid) 5 ml Q6 PRN PO COUGH Last administered on 01/16/17 14:26; Admin Dose 5 ML; Start 01/14/17 at 13:30 Diagnostic Test (Pha) (Accu-Chek) 1 ea 02 XX ; Start 01/15/17 at 02:00 Levofloxacin (Levaquin) 250 mg Q48H PO Last administered on 01/15/17 21:10; Admin Dose 250 MG; Start 01/15/17 at 20:00 Insulin Glargine (Lantus) 18 unit DAILY@20 SC Last administered on 01/17/17 20:47; Admin Dose 18 UNIT; Start 01/16/17 at 20:00 CARYL PANTOJA Jan 18, 2017 12:33
--- NOTE | 2017-01-18 18:58 | CONS ---
Date/Time of Note Date/Time of Note DATE: 01/18/17 TIME: 18:56 Assessment/Plan Assessment/Plan Chief Complaint/Hosp Course IMPRESSION: 1. Fluid overload, uncontrolled hypertension.BETTER 2. End-stage renal disease. 3. Hypertension. 4. Diabetes mellitus. 5. Hyperkalemia. 6. Atherosclerotic heart disease. 7. Peripheral vascular disease. 8. History of dyslipidemia. 9 History of pneumonia. 10. History of leg cellulitis. 11. History of wound dehiscence. 12 URI PLAN HD DAILY levaquin FLUID RES ELEVATE LEGS Problems: Consultation Date/Type/Reason Admit Date/Time Jan 13, 2017 at 18:04 Type of Consultation: RENAL 24 HR Interval Summary Constitutional: other (MALFUNC AVF OK NOW) Exam/Review of Systems Vital Signs Vitals Vital Signs Date Time Temp Pulse Resp B/P Pulse Ox O2 Delivery O2 Flow Rate FiO2 01/18/17 18:15 82 14 01/18/17 15:38 97.8 107/67 97 01/18/17 13:25 21 01/18/17 08:10 Nasal Cannula 2.0 Intake and Output 01/17/17 01/17/17 01/18/17 15:00 23:00 07:00 Intake Total 300 ml 1100 ml 500 ml Output Total 300 ml Balance 300 ml 800 ml 500 ml Exam Respiratory: clear to auscultation Cardiovascular: regular rate and rhythm Gastrointestinal: bowel sounds (+), soft Extremities: edema (++) Results Result Diagram: 01/17/17 0548 01/17/17 0548 Results 24 hrs Laboratory Tests Test 01/17/17 20:40 01/18/17 07:52 01/18/17 12:22 01/18/17 17:05 Bedside Glucose 99 200 163 225 H Medications Medications Current Medications Lorazepam (Ativan) 0.5 mg Q6H PRN IV ANXIETY Last administered on 01/18/17 08 :11; Admin Dose 0.5 MG; Start 01/13/17 at 18:30 Ondansetron HCl (Zofran Inj) 4 mg Q6H PRN IV NAUSEA AND/OR VOMITING Last administered on 01/17/17 20:45; Admin Dose 4 MG; Start 01/13/17 at 18:30 Nitroglycerin (Nitroglycerin (Sl Tab) 0.4 Mg) 1 tab Q5M PRN SL CHEST PAIN; Start 01/13/17 at 18:30 Acetaminophen (Tylenol Tab) 650 mg Q6H PRN PO PAIN LEVEL 1-3 OR FEVER Last administered on 01/18/17 16:28; Admin Dose 650 MG; Start 01/13/17 at 18:30 Morphine Sulfate (morphine) 2 mg Q4H PRN IV PAIN LEVEL 7-10 Last administered on 01/18/17 18:18; Admin Dose 2 MG; Start 01/13/17 at 18:30 Famotidine (Pepcid) 10 mg HS PO Last administered on 01/17/17 20:45; Admin Dose 10 MG; Start 01/13/17 at 21:00 Heparin Sodium (Porcine) (Heparin (5000 Units/0.5 ml)) 5,000 unit Q12 SC Last administered on 01/18/17 08:03; Admin Dose 5,000 UNIT; Start 01/13/17 at 21: 00 Amlodipine Besylate (Norvasc) 10 mg DAILY PO Last administered on 01/18/17 07 :59; Admin Dose 10 MG; Start 01/14/17 at 09:00 Aspirin (Halfprin) 81 mg DAILY PO Last administered on 01/18/17 07:59; Admin Dose 81 MG; Start 01/14/17 at 09:00 Atorvastatin Calcium (Lipitor) 40 mg QHS PO Last administered on 01/17/17 20: 45; Admin Dose 40 MG; Start 01/13/17 at 21:00 Carvedilol (Coreg) 6.25 mg DAILY PO Last administered on 01/18/17 07:59; Admin Dose 6.25 MG; Start 01/14/17 at 09:00 Clonidine (Catapres) 0.2 mg TID PRN PO FOR SBP >160; Start 01/13/17 at 19:00 Clopidogrel Bisulfate (plaVIX) 75 mg DAILY PO Last administered on 01/18/17 07:59; Admin Dose 75 MG; Start 01/14/17 at 09:00 Folic Acid (Folic Acid) 1 mg DAILY PO Last administered on 01/18/17 07:58; Admin Dose 1 MG; Start 01/14/17 at 09:00 Gabapentin (Neurontin) 300 mg BID PO Last administered on 01/18/17 07:58; Admin Dose 300 MG; Start 01/13/17 at 21:00 Linagliptin (Tradjenta) 5 mg DAILY PO Last administered on 01/18/17 07:59; Admin Dose 5 MG; Start 01/14/17 at 09:00 Multivit/Ca Carb/ B Cmplx/FA/Prenat (Addie-Mikayla) 1 tab DAILY PO Last administered on 01/18/17 07:59; Admin Dose 1 TAB; Start 01/14/17 at 09:00 Polyethylene Glycol (Miralax) 17 gm BID PO Last administered on 01/18/17 08: 11; Admin Dose 17 GM; Start 01/13/17 at 21:00 Miscellaneous Information 1 ea NOTE XX ; Start 01/13/17 at 19:00 Glucose (Glutose) 15 gm Q15M PRN PO DECREASED GLUCOSE; Start 01/13/17 at 19:00 Glucose (Glutose) 22.5 gm Q15M PRN PO DECREASED GLUCOSE; Start 01/13/17 at 19: 00 Dextrose (D50w Syringe) 25 ml Q15M PRN IV DECREASED GLUCOSE; Start 01/13/17 at 19:00 Dextrose (D50w Syringe) 50 ml Q15M PRN IV DECREASED GLUCOSE; Start 01/13/17 at 19:00 Glucagon (Glucagen) 1 mg Q15M PRN IM DECREASED GLUCOSE; Start 01/13/17 at 19: 00 Glucose (Glutose) 15 gm Q15M PRN BUCCAL DECREASED GLUCOSE; Start 01/13/17 at 19:00 Morphine Sulfate (morphine) 2 mg Q4H PRN IV PAIN; Start 01/14/17 at 01:00 Promethazine HCl/ Codeine (Phenergan/ Codeine) 5 ml Q4H PRN PO COUGH Last administered on 01/18/17 05:41; Admin Dose 5 ML; Start 01/14/17 at 12:30 Hydrocodone Bit/ Homatropine Methylb (Hycodan Liquid) 5 ml Q6 PRN PO COUGH Last administered on 01/16/17 14:26; Admin Dose 5 ML; Start 01/14/17 at 13:30 Diagnostic Test (Pha) (Accu-Chek) 1 ea 02 XX ; Start 01/15/17 at 02:00 Levofloxacin (Levaquin) 250 mg Q48H PO Last administered on 01/15/17 21:10; Admin Dose 250 MG; Start 01/15/17 at 20:00 Insulin Glargine (Lantus) 18 unit DAILY@20 SC Last administered on 01/17/17 20:47; Admin Dose 18 UNIT; Start 01/16/17 at 20:00 ZOFIA REAL MD Jan 18, 2017 18:57
[2017-01-18] MEDS: INSULIN GLARGINE [LANtus] 3 ML PEN SC SCH (20:56)
[2017-01-18] MEDS: FAMOTIDINE 20 MG TAB PO SCH (20:58)
[2017-01-18] MEDS: ATORVASTATIN 40 MG TAB PO SCH (20:58)
[2017-01-19] VITALS (11 sets, daily range): BP systolic 116–143; BP diastolic 50–66; PULSE 68–85; RESP 18
[2017-01-19] MEDS: PROMETHAZINE/CODEINE 5ML CUP PO PRN ×2 (01:46→14:06)
[2017-01-19] MEDS: morphine 2 MG INJ IV PRN ×4 (01:47→18:24)
[2017-01-19] MEDS: ACCU-CHEK XX SCH (02:00)
[2017-01-19] MEDS: LEVALBUTEROL (NEB) 0.63 MG/3 ML AMP HHN SCH ×3 (02:05→20:47)
[2017-01-19 06:22] LABS: BASOPHILS % 0.3 % (0.0-2.0); EOSINOPHILS # 0.3 10^3/ul (0.0-0.5); HEMATOCRIT 25.8 % (37.0-47.0); LYMPHOCYTES # 1.1 10^3/ul (0.8-2.9); LYMPHOCYTES % 27.1 % (15.0-51.0); MEAN CORPUSCULAR HEMOGLOBIN 33.5 pg (29.0-33.0); MEAN CORPUSCULAR VOLUME 107.9 fl (82.0-101.0); MEAN PLATELET VOLUME 10.6 fl (7.4-10.4); MONOCYTE # 0.6 10^3/ul (0.3-0.9); MONOCYTES % 15.6 % (0.0-11.0); NEUTROPHIL # 1.9 10^3/ul (1.6-7.5); NEUTROPHILS % 48.7 % (39.0-77.0); PLATELET COUNT 204 10^3/UL (140-415); RED BLOOD COUNT 2.39 10^6/ul (4.20-5.40); RED CELL DISTRIBUTION WIDTH 13.6 % (11.5-14.5)
--- NOTE | 2017-01-19 07:28 | RADRPT ---
PROCEDURE: US upper extremity Venous/arterial. CLINICAL INDICATION: Evaluate dialysis fistula. TECHNIQUE: Multiple sonographic images of the left upper extremity dialysis fistula was obtained u tilizing sun scale, color-flow, compressive sonography and doppler imaging with augmentation. COMPARISON: None. FINDINGS: Brachial artery to cephalic vein fistula is widely patent. There is aneurysmal dilation of the prox imal fistula just beyond the arterial anastomosis. Left brachial artery: 324 cm/s; monophasic waveforms proximal to the anastomoses Left brachial artery anastomosis: 368 cm/s; monophasic waveforms Left fistula prox: 173 cm/s ; monophasic waveforms Left fistula mid: 94 cm/s ; monophasic waveforms Left fistula distal: 72 cm/s ; monophasic waveforms Left cephalic vein outflow: 86 cm/s ; monophasic waveforms IMPRESSION: Patent left brachial artery to cephalic vein fistula. 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 RPTAT:AAJJ Physician Lennox Date Time Electronically viewed and signed by Physician Lennox on 01/19/2017 07:28 /
[2017-01-19 07:32] LABS: CALCIUM 7.5 mg/dl (8.4-10.2); CREATININE 5.82 mg/dl (0.44-1.00); POTASSIUM 5.7 mmol/L (3.5-5.1)
[2017-01-19] MEDS: ASPIRIN (EC) 81 MG TAB PO SCH (08:54)
[2017-01-19] MEDS: CLOPIDOGREL 75 MG TAB PO SCH (08:54)
[2017-01-19] MEDS: LINAGLIPTIN 5 MG TABLET PO SCH (08:54)
[2017-01-19] MEDS: FOLIC ACID 1 MG TAB PO SCH (08:54)
[2017-01-19] MEDS: SEVELAMER CARBONATE 0.8 GM PKT PO SCH ×3 (08:54→18:24)
[2017-01-19] MEDS: MULTIVIT/CA CARB/B CMPLX/FA TAB PO SCH (08:54)
[2017-01-19] MEDS: PANTOPRAZOLE (EC) 40 MG TAB PO SCH (08:54)
[2017-01-19] MEDS: GABAPENTIN 300 MG CAP PO SCH ×2 (08:54→20:14)
[2017-01-19] MEDS: POLYETHYLENE GLYCOL 17 GM PACKET PO SCH ×2 (08:55→20:18)
[2017-01-19] MEDS: AMLODIPINE 10 MG TAB PO SCH (08:55)
[2017-01-19] MEDS: INSULIN ASPART [NOVOLOG] 3 ML PEN SC SCH ×7 (08:57→20:37)
[2017-01-19] MEDS: HEPARIN 5,000 UNIT/0.5 ML VIAL SC SCH ×2 (08:58→20:36)
--- NOTE | 2017-01-19 11:59 | CONS ---
Date/Time of Note Date/Time of Note DATE: 01/19/17 TIME: 11:55 Assessment/Plan Assessment/Plan Chief Complaint/Hosp Course 56 y/o with 1. Fluid overload, uncontrolled hypertension.BETTER 2. End-stage renal disease. 3. Hypertension. 4. Diabetes mellitus. 5. Hyperkalemia. 6. Atherosclerotic heart disease. 7. Peripheral vascular disease. 8. History of dyslipidemia. 9 History of pneumonia. 10. History of leg cellulitis. 11. History of wound dehiscence. 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 Plan - Kayexalate today - Left message with Dr Ruano to see patient - HD after intervention - c/w Coreg/amlodipine - GI and Dvt prophylaxsis PLAN HD DAILY levaquin FLUID RES ELEVATE LEGS Problems: Consultation Date/Type/Reason Admit Date/Time Jan 13, 2017 at 18:04 Initial Consult Date Type of Consultation: RENAL 24 HR Interval Summary Free Text/Dictation Pt wishes to be seen by Dr Ruano as he had put in fistula Exam/Review of Systems Vital Signs Vitals Vital Signs Date Time Temp Pulse Resp B/P Pulse Ox O2 Delivery O2 Flow Rate FiO2 01/19/17 11:28 97.8 56 18 116/51 97 01/19/17 07:52 Nasal Cannula 2.0 01/19/17 02:05 Intake and Output 01/18/17 01/18/17 01/19/17 15:00 23:00 07:00 Intake Total 1120 ml 450 ml Output Total 5200 ml Balance -4080 ml 450 ml Exam Gen: Awake and alert Respiratory: clear to auscultation Cardiovascular: regular rate and rhythm Gastrointestinal: bowel sounds (+), soft Extremities: edema (++) Left ue fistila proximal part bruit and thrill, absent in distal part Results Result Diagram: 01/19/17 0555 01/19/17 0555 Results 24 hrs Laboratory Tests Test 01/18/17 12:22 01/18/17 17:05 01/18/17 20:43 01/19/17 01:56 Bedside Glucose 163 225 H 120 164 Test 01/19/17 05:55 01/19/17 08:49 White Blood Count 4.0 L Red Blood Count 2.39 L Hemoglobin 8.0 L Hematocrit 25.8 L Mean Corpuscular Volume 107.9 H Mean Corpuscular Hemoglobin 33.5 H Mean Corpuscular Hemoglobin Concent 31.0 L Red Cell Distribution Width 13.6 Platelet Count 204 Mean Platelet Volume 10.6 H Neutrophils % 48.7 Lymphocytes % 27.1 Monocytes % 15.6 H Eosinophils % 8.0 H Basophils % 0.3 Nucleated Red Blood Cells % 0.0 Neutrophils # 1.9 Lymphocytes # 1.1 Monocytes # 0.6 Eosinophils # 0.3 Basophils # 0.0 Nucleated Red Blood Cells # 0.0 Sodium Level 138 Potassium Level 5.7 H Chloride Level 99 Carbon Dioxide Level 30 Anion Gap 15 Blood Urea Nitrogen 55 H Creatinine 5.82 H Glucose Level 153 Calcium Level 7.5 L Total Bilirubin 0.0 L Direct Bilirubin 0.00 Indirect Bilirubin 0.0 Aspartate Amino Transf (AST/SGOT) 19 Alanine Aminotransferase (ALT/SGPT) 36 Alkaline Phosphatase 124 H Total Protein 6.0 L Albumin 3.0 L Globulin 3.00 Albumin/Globulin Ratio 1.00 Bedside Glucose 163 Medications Medications Current Medications Lorazepam (Ativan) 0.5 mg Q6H PRN IV ANXIETY Last administered on 01/18/17 20 :59; Admin Dose 0.5 MG; Start 01/13/17 at 18:30 Ondansetron HCl (Zofran Inj) 4 mg Q6H PRN IV NAUSEA AND/OR VOMITING Last administered on 01/17/17 20:45; Admin Dose 4 MG; Start 01/13/17 at 18:30 Nitroglycerin (Nitroglycerin (Sl Tab) 0.4 Mg) 1 tab Q5M PRN SL CHEST PAIN; Start 01/13/17 at 18:30 Acetaminophen (Tylenol Tab) 650 mg Q6H PRN PO PAIN LEVEL 1-3 OR FEVER Last administered on 01/18/17 16:28; Admin Dose 650 MG; Start 01/13/17 at 18:30 Morphine Sulfate (morphine) 2 mg Q4H PRN IV PAIN LEVEL 7-10 Last administered on 01/19/17 08:51; Admin Dose 2 MG; Start 01/13/17 at 18:30 Famotidine (Pepcid) 10 mg HS PO Last administered on 01/18/17 20:58; Admin Dose 10 MG; Start 01/13/17 at 21:00 Heparin Sodium (Porcine) (Heparin (5000 Units/0.5 ml)) 5,000 unit Q12 SC Last administered on 01/19/17 08:58; Admin Dose 5,000 UNIT; Start 01/13/17 at 21: 00 Amlodipine Besylate (Norvasc) 10 mg DAILY PO Last administered on 01/19/17 08 :55; Admin Dose 10 MG; Start 01/14/17 at 09:00 Aspirin (Halfprin) 81 mg DAILY PO Last administered on 01/19/17 08:54; Admin Dose 81 MG; Start 01/14/17 at 09:00 Atorvastatin Calcium (Lipitor) 40 mg QHS PO Last administered on 01/18/17 20: 58; Admin Dose 40 MG; Start 01/13/17 at 21:00 Carvedilol (Coreg) 6.25 mg DAILY PO Last administered on 01/19/17 08:55; Admin Dose 6.25 MG; Start 01/14/17 at 09:00 Clonidine (Catapres) 0.2 mg TID PRN PO FOR SBP >160; Start 01/13/17 at 19:00 Clopidogrel Bisulfate (plaVIX) 75 mg DAILY PO Last administered on 01/19/17 08:54; Admin Dose 75 MG; Start 01/14/17 at 09:00 Folic Acid (Folic Acid) 1 mg DAILY PO Last administered on 01/19/17 08:54; Admin Dose 1 MG; Start 01/14/17 at 09:00 Gabapentin (Neurontin) 300 mg BID PO Last administered on 01/19/17 08:54; Admin Dose 300 MG; Start 01/13/17 at 21:00 Linagliptin (Tradjenta) 5 mg DAILY PO Last administered on 01/19/17 08:54; Admin Dose 5 MG; Start 01/14/17 at 09:00 Multivit/Ca Carb/ B Cmplx/FA/Prenat (Addie-Mikayla) 1 tab DAILY PO Last administered on 01/19/17 08:54; Admin Dose 1 TAB; Start 01/14/17 at 09:00 Polyethylene Glycol (Miralax) 17 gm BID PO Last administered on 01/19/17 08: 55; Admin Dose 17 GM; Start 01/13/17 at 21:00 Miscellaneous Information 1 ea NOTE XX ; Start 01/13/17 at 19:00 Glucose (Glutose) 15 gm Q15M PRN PO DECREASED GLUCOSE; Start 01/13/17 at 19:00 Glucose (Glutose) 22.5 gm Q15M PRN PO DECREASED GLUCOSE; Start 01/13/17 at 19: 00 Dextrose (D50w Syringe) 25 ml Q15M PRN IV DECREASED GLUCOSE; Start 01/13/17 at 19:00 Dextrose (D50w Syringe) 50 ml Q15M PRN IV DECREASED GLUCOSE; Start 01/13/17 at 19:00 Glucagon (Glucagen) 1 mg Q15M PRN IM DECREASED GLUCOSE; Start 01/13/17 at 19: 00 Glucose (Glutose) 15 gm Q15M PRN BUCCAL DECREASED GLUCOSE; Start 01/13/17 at 19:00 Morphine Sulfate (morphine) 2 mg Q4H PRN IV PAIN; Start 01/14/17 at 01:00 Promethazine HCl/ Codeine (Phenergan/ Codeine) 5 ml Q4H PRN PO COUGH Last administered on 01/19/17 01:46; Admin Dose 5 ML; Start 01/14/17 at 12:30 Hydrocodone Bit/ Homatropine Methylb (Hycodan Liquid) 5 ml Q6 PRN PO COUGH Last administered on 01/16/17 14:26; Admin Dose 5 ML; Start 01/14/17 at 13:30 Diagnostic Test (Pha) (Accu-Chek) 1 ea 02 XX ; Start 01/15/17 at 02:00 Levofloxacin (Levaquin) 250 mg Q48H PO Last administered on 01/15/17 21:10; Admin Dose 250 MG; Start 01/15/17 at 20:00 Insulin Glargine (Lantus) 18 unit DAILY@20 SC Last administered on 01/18/17 20:56; Admin Dose 18 UNIT; Start 01/16/17 at 20:00 DARELL JAMES MD Jan 19, 2017 11:59
[2017-01-19] MEDS ORDERED: NA POLYST SULFON 15 GM/60 ML BTL PO ONE (12:00)
[2017-01-19] MEDS ORDERED: ONDANSETRON 4 MG INJ ONE (15:14)
[2017-01-19] MEDS ORDERED: LIDOCAINE 1% (MDV) 20 ML INJ ONE (15:17)
[2017-01-19] MEDS ORDERED: SOD CHLORIDE 0.9% 500 ML ONE (15:17)
[2017-01-19] MEDS ORDERED: IODIXANOL LOCM 100 ML BTL ONE (15:17)
[2017-01-19] MEDS ORDERED: HEPARIN 1000 UNITS/ML 10 ML INJ ONE (15:39)
[2017-01-19] MEDS ORDERED: HEPARIN 1000 UNITS/NS (A-LINE) 1,000 ML ONE (15:39)
[2017-01-19] MEDS ORDERED: MIDAZOLAM 1 MG/ML 2 ML INJ ONE (15:45)
[2017-01-19] MEDS ORDERED: FENTAnyl 50 MCG/ML VIAL ONE (15:45)
[2017-01-19] MEDS ORDERED: ALTEPLASE (CATHFLO) 2 MG INJ CATHETER SCH (16:30)
--- NOTE | 2017-01-19 16:31 | PN ---
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 Assessment/Plan -Acute respiratory failure secondary to pulmonary edema -Hemodialysis dependent end-stage renal disease, Dr. Garcia is following in nephrology consultation, continue hemodialysis. -E. coli UTI, continue Levaquin. -Diabetes mellitus type 2, hemoglobin A1c 6.5, continue Tradjenta Lantus and NovoLog -HTN -Severe PVD, with multiple vascular intervention including a left lower extremity bypass. -S/p orthopedic procedures to RUE with metal prosthetic after bone Fx -Poor medical compliance Further recommendations based on clinical course. Plan of care is discussed with Dr. Cordero Problems: Exam/Review of Systems Vital Signs Vitals Vital Signs Date Time Temp Pulse Resp B/P Pulse Ox O2 Delivery O2 Flow Rate FiO2 01/19/17 16:13 75 01/19/17 13:47 18 01/19/17 11:28 97.8 116/51 97 01/19/17 08:00 Nasal Cannula 2.0 01/19/17 02:05 Intake and Output 01/18/17 01/18/17 01/19/17 15:00 23:00 07:00 Intake Total 1120 ml 450 ml Output Total 5200 ml Balance -4080 ml 450 ml Results Result Diagram: 01/19/17 0555 01/19/17 0555 Results 24 hrs Laboratory Tests Test 01/18/17 17:05 01/18/17 20:43 01/19/17 01:56 01/19/17 05:55 Bedside Glucose 225 H 120 164 White Blood Count 4.0 L Red Blood Count 2.39 L Hemoglobin 8.0 L Hematocrit 25.8 L Mean Corpuscular Volume 107.9 H Mean Corpuscular Hemoglobin 33.5 H Mean Corpuscular Hemoglobin Concent 31.0 L Red Cell Distribution Width 13.6 Platelet Count 204 Mean Platelet Volume 10.6 H Neutrophils % 48.7 Lymphocytes % 27.1 Monocytes % 15.6 H Eosinophils % 8.0 H Basophils % 0.3 Nucleated Red Blood Cells % 0.0 Neutrophils # 1.9 Lymphocytes # 1.1 Monocytes # 0.6 Eosinophils # 0.3 Basophils # 0.0 Nucleated Red Blood Cells # 0.0 Sodium Level 138 Potassium Level 5.7 H Chloride Level 99 Carbon Dioxide Level 30 Anion Gap 15 Blood Urea Nitrogen 55 H Creatinine 5.82 H Glucose Level 153 Calcium Level 7.5 L Total Bilirubin 0.0 L Direct Bilirubin 0.00 Indirect Bilirubin 0.0 Aspartate Amino Transf (AST/SGOT) 19 Alanine Aminotransferase (ALT/SGPT) 36 Alkaline Phosphatase 124 H Total Protein 6.0 L Albumin 3.0 L Globulin 3.00 Albumin/Globulin Ratio 1.00 Test 01/19/17 08:49 01/19/17 12:26 Bedside Glucose 163 81 Medications Medications Current Medications Lorazepam (Ativan) 0.5 mg Q6H PRN IV ANXIETY Last administered on 01/18/17 20 :59; Admin Dose 0.5 MG; Start 01/13/17 at 18:30 Ondansetron HCl (Zofran Inj) 4 mg Q6H PRN IV NAUSEA AND/OR VOMITING Last administered on 01/17/17 20:45; Admin Dose 4 MG; Start 01/13/17 at 18:30 Nitroglycerin (Nitroglycerin (Sl Tab) 0.4 Mg) 1 tab Q5M PRN SL CHEST PAIN; Start 01/13/17 at 18:30 Acetaminophen (Tylenol Tab) 650 mg Q6H PRN PO PAIN LEVEL 1-3 OR FEVER Last administered on 01/18/17 16:28; Admin Dose 650 MG; Start 01/13/17 at 18:30 Morphine Sulfate (morphine) 2 mg Q4H PRN IV PAIN LEVEL 7-10 Last administered on 01/19/17 14:06; Admin Dose 2 MG; Start 01/13/17 at 18:30 Famotidine (Pepcid) 10 mg HS PO Last administered on 01/18/17 20:58; Admin Dose 10 MG; Start 01/13/17 at 21:00 Heparin Sodium (Porcine) (Heparin (5000 Units/0.5 ml)) 5,000 unit Q12 SC Last administered on 01/19/17 08:58; Admin Dose 5,000 UNIT; Start 01/13/17 at 21: 00 Amlodipine Besylate (Norvasc) 10 mg DAILY PO Last administered on 01/19/17 08 :55; Admin Dose 10 MG; Start 01/14/17 at 09:00 Aspirin (Halfprin) 81 mg DAILY PO Last administered on 01/19/17 08:54; Admin Dose 81 MG; Start 01/14/17 at 09:00 Atorvastatin Calcium (Lipitor) 40 mg QHS PO Last administered on 01/18/17 20: 58; Admin Dose 40 MG; Start 01/13/17 at 21:00 Carvedilol (Coreg) 6.25 mg DAILY PO Last administered on 01/19/17 08:55; Admin Dose 6.25 MG; Start 01/14/17 at 09:00 Clonidine (Catapres) 0.2 mg TID PRN PO FOR SBP >160; Start 01/13/17 at 19:00 Clopidogrel Bisulfate (plaVIX) 75 mg DAILY PO Last administered on 01/19/17 08:54; Admin Dose 75 MG; Start 01/14/17 at 09:00 Folic Acid (Folic Acid) 1 mg DAILY PO Last administered on 01/19/17 08:54; Admin Dose 1 MG; Start 01/14/17 at 09:00 Gabapentin (Neurontin) 300 mg BID PO Last administered on 01/19/17 08:54; Admin Dose 300 MG; Start 01/13/17 at 21:00 Linagliptin (Tradjenta) 5 mg DAILY PO Last administered on 01/19/17 08:54; Admin Dose 5 MG; Start 01/14/17 at 09:00 Multivit/Ca Carb/ B Cmplx/FA/Prenat (Addie-Mikayla) 1 tab DAILY PO Last administered on 01/19/17 08:54; Admin Dose 1 TAB; Start 01/14/17 at 09:00 Polyethylene Glycol (Miralax) 17 gm BID PO Last administered on 01/19/17 08: 55; Admin Dose 17 GM; Start 01/13/17 at 21:00 Miscellaneous Information 1 ea NOTE XX ; Start 01/13/17 at 19:00 Glucose (Glutose) 15 gm Q15M PRN PO DECREASED GLUCOSE; Start 01/13/17 at 19:00 Glucose (Glutose) 22.5 gm Q15M PRN PO DECREASED GLUCOSE; Start 01/13/17 at 19: 00 Dextrose (D50w Syringe) 25 ml Q15M PRN IV DECREASED GLUCOSE; Start 01/13/17 at 19:00 Dextrose (D50w Syringe) 50 ml Q15M PRN IV DECREASED GLUCOSE; Start 01/13/17 at 19:00 Glucagon (Glucagen) 1 mg Q15M PRN IM DECREASED GLUCOSE; Start 01/13/17 at 19: 00 Glucose (Glutose) 15 gm Q15M PRN BUCCAL DECREASED GLUCOSE; Start 01/13/17 at 19:00 Morphine Sulfate (morphine) 2 mg Q4H PRN IV PAIN; Start 01/14/17 at 01:00 Promethazine HCl/ Codeine (Phenergan/ Codeine) 5 ml Q4H PRN PO COUGH Last administered on 01/19/17 14:06; Admin Dose 5 ML; Start 01/14/17 at 12:30 Hydrocodone Bit/ Homatropine Methylb (Hycodan Liquid) 5 ml Q6 PRN PO COUGH Last administered on 01/16/17 14:26; Admin Dose 5 ML; Start 01/14/17 at 13:30 Diagnostic Test (Pha) (Accu-Chek) 1 ea 02 XX ; Start 01/15/17 at 02:00 Levofloxacin (Levaquin) 250 mg Q48H PO Last administered on 01/15/17 21:10; Admin Dose 250 MG; Start 01/15/17 at 20:00 Insulin Glargine (Lantus) 18 unit DAILY@20 SC Last administered on 01/18/17 20:56; Admin Dose 18 UNIT; Start 01/16/17 at 20:00 Alteplase, Recombinant (Cathflo (Activase)) 4 mg ONCE CATHETER ; Start at 16:30; Stop 01/19/17 at 16:31 ANTHONY DUPREE Jan 19, 2017 16:31
--- NOTE | 2017-01-19 17:55 | SIPON ---
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
--- NOTE | 2017-01-19 17:56 | HPN ---
Date/Time of Note Date/Time of Note DATE: 01/19/17 TIME: 17:56 Interval H&P Admission Note Pt. seen H&P reviewed: No system changes SHELBY MACDONALD MD Jan 19, 2017 17:56
[2017-01-19] MEDS: INSULIN GLARGINE [LANtus] 3 ML PEN SC SCH (20:00)
[2017-01-19] MEDS: LORAZEPAM 2 MG INJ IV PRN (20:11)
[2017-01-19] MEDS: ATORVASTATIN 40 MG TAB PO SCH (20:14)
[2017-01-19] MEDS: LEVOFLOXACIN 250 MG TAB PO SCH (20:14)
[2017-01-19] MEDS: FAMOTIDINE 20 MG TAB PO SCH (20:14)
[2017-01-20] VITALS (19 sets, daily range): BP systolic 107–183; BP diastolic 43–74; PULSE 66–86; RESP 15–20
[2017-01-20] MEDS: morphine 2 MG INJ IV PRN ×5 (01:18→21:00)
[2017-01-20] MEDS: HYDROCODONE/HOMATROPINE 5ML CUP PO PRN (01:23)
[2017-01-20] MEDS: LEVALBUTEROL (NEB) 0.63 MG/3 ML AMP HHN SCH ×4 (01:56→19:45)
[2017-01-20] MEDS: ACCU-CHEK XX SCH (02:00)
[2017-01-20 07:34] LABS: BASOPHILS % 0.2 % (0.0-2.0); EOSINOPHILS # 0.3 10^3/ul (0.0-0.5); EOSINOPHILS % 6.5 % (0.0-7.0); HEMATOCRIT 26.6 % (37.0-47.0); HEMOGLOBIN 8.3 g/dl (12.0-16.0); LYMPHOCYTES # 1.2 10^3/ul (0.8-2.9); LYMPHOCYTES % 24.1 % (15.0-51.0); MEAN CORPUSCULAR HEMOGLOBIN 33.6 pg (29.0-33.0); MEAN CORPUSCULAR HGB CONC 31.2 g/dl (32.0-37.0); MEAN CORPUSCULAR VOLUME 107.7 fl (82.0-101.0); MEAN PLATELET VOLUME 10.9 fl (7.4-10.4); MONOCYTE # 0.6 10^3/ul (0.3-0.9); MONOCYTES % 11.9 % (0.0-11.0); NEUTROPHIL # 2.8 10^3/ul (1.6-7.5); NEUTROPHILS % 57.1 % (39.0-77.0); PLATELET COUNT 224 10^3/UL (140-415); RED BLOOD COUNT 2.47 10^6/ul (4.20-5.40); RED CELL DISTRIBUTION WIDTH 13.5 % (11.5-14.5); WHITE BLOOD COUNT 4.9 10^3/ul (4.8-10.8)
[2017-01-20] MEDS: PANTOPRAZOLE (EC) 40 MG TAB PO SCH (08:09)
[2017-01-20] MEDS: POLYETHYLENE GLYCOL 17 GM PACKET PO SCH ×2 (08:09→20:56)
[2017-01-20] MEDS: FOLIC ACID 1 MG TAB PO SCH (08:09)
[2017-01-20] MEDS: MULTIVIT/CA CARB/B CMPLX/FA TAB PO SCH (08:09)
[2017-01-20] MEDS: SEVELAMER CARBONATE 0.8 GM PKT PO SCH ×3 (08:09→18:24)
[2017-01-20] MEDS: GABAPENTIN 300 MG CAP PO SCH ×2 (08:10→20:58)
[2017-01-20] MEDS: CLOPIDOGREL 75 MG TAB PO SCH (08:10)
[2017-01-20] MEDS: ASPIRIN (EC) 81 MG TAB PO SCH (08:10)
[2017-01-20 08:11] LABS: CALCIUM 7.2 mg/dl (8.4-10.2); CREATININE 6.88 mg/dl (0.44-1.00); POTASSIUM 4.9 mmol/L (3.5-5.1)
[2017-01-20] MEDS: AMLODIPINE 10 MG TAB PO SCH (08:11)
[2017-01-20] MEDS: INSULIN ASPART [NOVOLOG] 3 ML PEN SC SCH ×7 (08:14→20:56)
[2017-01-20] MEDS: HEPARIN 5,000 UNIT/0.5 ML VIAL SC SCH ×2 (08:15→20:58)
[2017-01-20] MEDS: LINAGLIPTIN 5 MG TABLET PO SCH (08:16)
[2017-01-20] MEDS: LORAZEPAM 2 MG INJ IV PRN ×2 (14:20→22:56)
[2017-01-20] MEDS: ACETAMINOPHEN 325 MG TAB PO PRN (14:21)
--- NOTE | 2017-01-20 15:34 | PN ---
Date/Time of Note Date/Time of Note DATE: 01/20/17 TIME: 15:28 Assessment/Plan VTE Prophylaxis VTE Prophylaxis Intervention: SCD's Lines/Catheters [facility] Urinary Cath still in place: No Assessment/Plan Chief Complaint/Hosp Course Assessment/Plan -Acute respiratory failure secondary to pulmonary edema -Hemodialysis dependent end-stage renal disease, Dr. Garcia is following in nephrology consultation, continue hemodialysis. -Status post fistulogram, status post left upper extremity anastomosis angioplasty by Dr. Ruano on 01/19. -E. coli UTI, continue Levaquin. -Diabetes mellitus type 2, hemoglobin A1c 6.5, continue Tradjenta Lantus and NovoLog -HTN -Severe PVD, with multiple vascular intervention including a left lower extremity bypass. -S/p orthopedic procedures to RUE with metal prosthetic after bone Fx -Poor medical compliance Further recommendations based on clinical course. Plan of care is discussed with Dr. Cordero Problems: Exam/Review of Systems Vital Signs Vitals Vital Signs Date Time Temp Pulse Resp B/P Pulse Ox O2 Delivery O2 Flow Rate FiO2 01/20/17 15:26 98.0 88 18 146/65 91 01/20/17 13:47 Nasal Cannula 2.0 01/19/17 02:05 Intake and Output 01/19/17 01/19/17 01/20/17 15:00 23:00 07:00 Intake Total 550 ml Balance 550 ml Exam Constitutional: alert, oriented Head: normocephalic Neck: supple Respiratory: diminished breath sounds Cardiovascular: nl pulses Gastrointestinal: ascites, non-tender, soft Extremities: edema Additional Comments Left upper extremity AV fistula Results Result Diagram: 01/20/17 0656 01/20/17 0656 Results 24 hrs Laboratory Tests Test 01/19/17 18:23 01/19/17 20:21 01/20/17 06:56 01/20/17 07:58 Bedside Glucose 160 83 177 White Blood Count 4.9 # Red Blood Count 2.47 L Hemoglobin 8.3 L Hematocrit 26.6 L Mean Corpuscular Volume 107.7 H Mean Corpuscular Hemoglobin 33.6 H Mean Corpuscular Hemoglobin Concent 31.2 L Red Cell Distribution Width 13.5 Platelet Count 224 Mean Platelet Volume 10.9 H Neutrophils % 57.1 Lymphocytes % 24.1 Monocytes % 11.9 H Eosinophils % 6.5 Basophils % 0.2 Nucleated Red Blood Cells % 0.0 Neutrophils # 2.8 Lymphocytes # 1.2 Monocytes # 0.6 Eosinophils # 0.3 Basophils # 0.0 Nucleated Red Blood Cells # 0.0 Sodium Level 139 Potassium Level 4.9 Chloride Level 95 L Carbon Dioxide Level 31 Anion Gap 18 H Blood Urea Nitrogen 66 H Creatinine 6.88 H Glucose Level 148 Calcium Level 7.2 L Test 01/20/17 11:34 Bedside Glucose 107 Medications Medications Current Medications Lorazepam (Ativan) 0.5 mg Q6H PRN IV ANXIETY Last administered on 01/20/17 14 :20; Admin Dose 0.5 MG; Start 01/13/17 at 18:30 Ondansetron HCl (Zofran Inj) 4 mg Q6H PRN IV NAUSEA AND/OR VOMITING Last administered on 01/17/17 20:45; Admin Dose 4 MG; Start 01/13/17 at 18:30 Nitroglycerin (Nitroglycerin (Sl Tab) 0.4 Mg) 1 tab Q5M PRN SL CHEST PAIN; Start 01/13/17 at 18:30 Acetaminophen (Tylenol Tab) 650 mg Q6H PRN PO PAIN LEVEL 1-3 OR FEVER Last administered on 01/20/17 14:21; Admin Dose 650 MG; Start 01/13/17 at 18:30 Morphine Sulfate (morphine) 2 mg Q4H PRN IV PAIN LEVEL 7-10 Last administered on 01/19/17 14:06; Admin Dose 2 MG; Start 01/13/17 at 18:30 Famotidine (Pepcid) 10 mg HS PO Last administered on 01/19/17 20:14; Admin Dose 10 MG; Start 01/13/17 at 21:00 Heparin Sodium (Porcine) (Heparin (5000 Units/0.5 ml)) 5,000 unit Q12 SC Last administered on 01/20/17 08:15; Admin Dose 5,000 UNIT; Start 01/13/17 at 21: 00 Amlodipine Besylate (Norvasc) 10 mg DAILY PO Last administered on 01/20/17 08 :11; Admin Dose 10 MG; Start 01/14/17 at 09:00 Aspirin (Halfprin) 81 mg DAILY PO Last administered on 01/20/17 08:10; Admin Dose 81 MG; Start 01/14/17 at 09:00 Atorvastatin Calcium (Lipitor) 40 mg QHS PO Last administered on 01/19/17 20: 14; Admin Dose 40 MG; Start 01/13/17 at 21:00 Carvedilol (Coreg) 6.25 mg DAILY PO Last administered on 01/20/17 08:11; Admin Dose 6.25 MG; Start 01/14/17 at 09:00 Clonidine (Catapres) 0.2 mg TID PRN PO FOR SBP >160; Start 01/13/17 at 19:00 Clopidogrel Bisulfate (plaVIX) 75 mg DAILY PO Last administered on 01/20/17 08:10; Admin Dose 75 MG; Start 01/14/17 at 09:00 Folic Acid (Folic Acid) 1 mg DAILY PO Last administered on 01/20/17 08:09; Admin Dose 1 MG; Start 01/14/17 at 09:00 Gabapentin (Neurontin) 300 mg BID PO Last administered on 01/20/17 08:10; Admin Dose 300 MG; Start 01/13/17 at 21:00 Linagliptin (Tradjenta) 5 mg DAILY PO Last administered on 01/20/17 08:16; Admin Dose 5 MG; Start 01/14/17 at 09:00 Multivit/Ca Carb/ B Cmplx/FA/Prenat (Addie-Mikayla) 1 tab DAILY PO Last administered on 01/20/17 08:09; Admin Dose 1 TAB; Start 01/14/17 at 09:00 Polyethylene Glycol (Miralax) 17 gm BID PO Last administered on 01/20/17 08: 09; Admin Dose 17 GM; Start 01/13/17 at 21:00 Miscellaneous Information 1 ea NOTE XX ; Start 01/13/17 at 19:00 Glucose (Glutose) 15 gm Q15M PRN PO DECREASED GLUCOSE; Start 01/13/17 at 19:00 Glucose (Glutose) 22.5 gm Q15M PRN PO DECREASED GLUCOSE; Start 01/13/17 at 19: 00 Dextrose (D50w Syringe) 25 ml Q15M PRN IV DECREASED GLUCOSE; Start 01/13/17 at 19:00 Dextrose (D50w Syringe) 50 ml Q15M PRN IV DECREASED GLUCOSE; Start 01/13/17 at 19:00 Glucagon (Glucagen) 1 mg Q15M PRN IM DECREASED GLUCOSE; Start 01/13/17 at 19: 00 Glucose (Glutose) 15 gm Q15M PRN BUCCAL DECREASED GLUCOSE; Start 01/13/17 at 19:00 Morphine Sulfate (morphine) 2 mg Q4H PRN IV PAIN Last administered on 11:26; Admin Dose 2 MG; Start 01/14/17 at 01:00 Promethazine HCl/ Codeine (Phenergan/ Codeine) 5 ml Q4H PRN PO COUGH Last administered on 01/19/17 14:06; Admin Dose 5 ML; Start 01/14/17 at 12:30 Hydrocodone Bit/ Homatropine Methylb (Hycodan Liquid) 5 ml Q6 PRN PO COUGH Last administered on 01/20/17 01:23; Admin Dose 5 ML; Start 01/14/17 at 13:30 Diagnostic Test (Pha) (Accu-Chek) 1 ea 02 XX ; Start 01/15/17 at 02:00 Levofloxacin (Levaquin) 250 mg Q48H PO Last administered on 01/19/17 20:14; Admin Dose 250 MG; Start 01/15/17 at 20:00 Insulin Glargine (Lantus) 18 unit DAILY@20 SC Last administered on 01/18/17 20:56; Admin Dose 18 UNIT; Start 01/16/17 at 20:00 ANTHONY DUPREE Jan 20, 2017 15:34
--- NOTE | 2017-01-20 17:15 | CONS ---
Date/Time of Note Date/Time of Note DATE: 01/20/17 TIME: 17:12 Assessment/Plan Assessment/Plan Chief Complaint/Hosp Course 56 y/o with 1. Fluid overload, uncontrolled hypertension.BETTER 2. End-stage renal disease. 3. Hypertension. 4. Diabetes mellitus. 5. Hyperkalemia. 6. Atherosclerotic heart disease. 7. Peripheral vascular disease. 8. History of dyslipidemia. 9 History of pneumonia. 10. History of leg cellulitis. 11. History of wound dehiscence. 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 Plan - s/p Angioplasty yesterday - Diana to take her again to OR tmw - s/p HD today - c/w Coreg/amlodipine - GI and Dvt prophylaxsis PLAN HD DAILY levaquin FLUID RES ELEVATE LEGS Problems: Consultation Date/Type/Reason Admit Date/Time Jan 13, 2017 at 18:04 Type of Consultation: RENAL 24 HR Interval Summary Free Text/Dictation s/p Angioplasty of anastomosis yesterday Pt was able to get HD today per Dr Diaz given site of insertion Exam/Review of Systems Vital Signs Vitals Vital Signs Date Time Temp Pulse Resp B/P Pulse Ox O2 Delivery O2 Flow Rate FiO2 01/20/17 16:30 86 01/20/17 15:26 98.0 18 146/65 91 01/20/17 13:47 Nasal Cannula 2.0 01/19/17 02:05 Intake and Output 01/19/17 01/19/17 01/20/17 15:00 23:00 07:00 Intake Total 550 ml Balance 550 ml Exam Exam Gen: Awake and alert Respiratory: clear to auscultation Cardiovascular: regular rate and rhythm Gastrointestinal: bowel sounds (+), soft Extremities: edema (++) Left ue fistila proximal part bruit and thrill, absent in distal part Results Result Diagram: 01/20/17 0656 01/20/17 0656 Results 24 hrs Laboratory Tests Test 01/19/17 18:23 01/19/17 20:21 01/20/17 06:56 01/20/17 07:58 Bedside Glucose 160 83 177 White Blood Count 4.9 # Red Blood Count 2.47 L Hemoglobin 8.3 L Hematocrit 26.6 L Mean Corpuscular Volume 107.7 H Mean Corpuscular Hemoglobin 33.6 H Mean Corpuscular Hemoglobin Concent 31.2 L Red Cell Distribution Width 13.5 Platelet Count 224 Mean Platelet Volume 10.9 H Neutrophils % 57.1 Lymphocytes % 24.1 Monocytes % 11.9 H Eosinophils % 6.5 Basophils % 0.2 Nucleated Red Blood Cells % 0.0 Neutrophils # 2.8 Lymphocytes # 1.2 Monocytes # 0.6 Eosinophils # 0.3 Basophils # 0.0 Nucleated Red Blood Cells # 0.0 Sodium Level 139 Potassium Level 4.9 Chloride Level 95 L Carbon Dioxide Level 31 Anion Gap 18 H Blood Urea Nitrogen 66 H Creatinine 6.88 H Glucose Level 148 Calcium Level 7.2 L Test 01/20/17 11:34 Bedside Glucose 107 Medications Medications Current Medications Lorazepam (Ativan) 0.5 mg Q6H PRN IV ANXIETY Last administered on 01/20/17 14 :20; Admin Dose 0.5 MG; Start 01/13/17 at 18:30 Ondansetron HCl (Zofran Inj) 4 mg Q6H PRN IV NAUSEA AND/OR VOMITING Last administered on 01/17/17 20:45; Admin Dose 4 MG; Start 01/13/17 at 18:30 Nitroglycerin (Nitroglycerin (Sl Tab) 0.4 Mg) 1 tab Q5M PRN SL CHEST PAIN; Start 01/13/17 at 18:30 Acetaminophen (Tylenol Tab) 650 mg Q6H PRN PO PAIN LEVEL 1-3 OR FEVER Last administered on 01/20/17 14:21; Admin Dose 650 MG; Start 01/13/17 at 18:30 Morphine Sulfate (morphine) 2 mg Q4H PRN IV PAIN LEVEL 7-10 Last administered on 01/19/17 14:06; Admin Dose 2 MG; Start 01/13/17 at 18:30 Famotidine (Pepcid) 10 mg HS PO Last administered on 01/19/17 20:14; Admin Dose 10 MG; Start 01/13/17 at 21:00 Heparin Sodium (Porcine) (Heparin (5000 Units/0.5 ml)) 5,000 unit Q12 SC Last administered on 01/20/17 08:15; Admin Dose 5,000 UNIT; Start 01/13/17 at 21: 00 Amlodipine Besylate (Norvasc) 10 mg DAILY PO Last administered on 01/20/17 08 :11; Admin Dose 10 MG; Start 01/14/17 at 09:00 Aspirin (Halfprin) 81 mg DAILY PO Last administered on 01/20/17 08:10; Admin Dose 81 MG; Start 01/14/17 at 09:00 Atorvastatin Calcium (Lipitor) 40 mg QHS PO Last administered on 01/19/17 20: 14; Admin Dose 40 MG; Start 01/13/17 at 21:00 Carvedilol (Coreg) 6.25 mg DAILY PO Last administered on 01/20/17 08:11; Admin Dose 6.25 MG; Start 01/14/17 at 09:00 Clonidine (Catapres) 0.2 mg TID PRN PO FOR SBP >160; Start 01/13/17 at 19:00 Clopidogrel Bisulfate (plaVIX) 75 mg DAILY PO Last administered on 01/20/17 08:10; Admin Dose 75 MG; Start 01/14/17 at 09:00 Folic Acid (Folic Acid) 1 mg DAILY PO Last administered on 01/20/17 08:09; Admin Dose 1 MG; Start 01/14/17 at 09:00 Gabapentin (Neurontin) 300 mg BID PO Last administered on 01/20/17 08:10; Admin Dose 300 MG; Start 01/13/17 at 21:00 Linagliptin (Tradjenta) 5 mg DAILY PO Last administered on 01/20/17 08:16; Admin Dose 5 MG; Start 01/14/17 at 09:00 Multivit/Ca Carb/ B Cmplx/FA/Prenat (Addie-Mikayla) 1 tab DAILY PO Last administered on 01/20/17 08:09; Admin Dose 1 TAB; Start 01/14/17 at 09:00 Polyethylene Glycol (Miralax) 17 gm BID PO Last administered on 01/20/17 08: 09; Admin Dose 17 GM; Start 01/13/17 at 21:00 Miscellaneous Information 1 ea NOTE XX ; Start 01/13/17 at 19:00 Glucose (Glutose) 15 gm Q15M PRN PO DECREASED GLUCOSE; Start 01/13/17 at 19:00 Glucose (Glutose) 22.5 gm Q15M PRN PO DECREASED GLUCOSE; Start 01/13/17 at 19: 00 Dextrose (D50w Syringe) 25 ml Q15M PRN IV DECREASED GLUCOSE; Start 01/13/17 at 19:00 Dextrose (D50w Syringe) 50 ml Q15M PRN IV DECREASED GLUCOSE; Start 01/13/17 at 19:00 Glucagon (Glucagen) 1 mg Q15M PRN IM DECREASED GLUCOSE; Start 01/13/17 at 19: 00 Glucose (Glutose) 15 gm Q15M PRN BUCCAL DECREASED GLUCOSE; Start 01/13/17 at 19:00 Morphine Sulfate (morphine) 2 mg Q4H PRN IV PAIN Last administered on 16:22; Admin Dose 2 MG; Start 01/14/17 at 01:00 Promethazine HCl/ Codeine (Phenergan/ Codeine) 5 ml Q4H PRN PO COUGH Last administered on 01/19/17 14:06; Admin Dose 5 ML; Start 01/14/17 at 12:30 Hydrocodone Bit/ Homatropine Methylb (Hycodan Liquid) 5 ml Q6 PRN PO COUGH Last administered on 01/20/17 01:23; Admin Dose 5 ML; Start 01/14/17 at 13:30 Diagnostic Test (Pha) (Accu-Chek) 1 ea 02 XX ; Start 01/15/17 at 02:00 Levofloxacin (Levaquin) 250 mg Q48H PO Last administered on 01/19/17 20:14; Admin Dose 250 MG; Start 01/15/17 at 20:00 Insulin Glargine (Lantus) 18 unit DAILY@20 SC Last administered on 01/18/17 20:56; Admin Dose 18 UNIT; Start 01/16/17 at 20:00 DARELL JAMES MD Jan 20, 2017 17:15
--- NOTE | 2017-01-20 20:51 | PN ---
Date/Time of Note Date/Time of Note DATE: 01/20/17 TIME: 20:46 Assessment/Plan Lines/Catheters IV Catheter Type (from Nrs): Saline [place] in Place (from Nrs): No Assessment/Plan Chief Complaint/Hosp Course -ESRD: S/P LUE fistulogram and venoplasty of the anastomosis -Will schedule the patient for the second aspect of the procedure for coil embolization of the tributaries -Optimize vascular status (BP meds, cholesterol, sugar control, diet and antiplatelets) -Discussed findings plan and management with the patient and she understands -Thank you for allowing us to partake in the care of your patient, please call with any questions Problems: Subjective 24 Hr Interval Summary no new vascular events overnight Exam/Review of Systems Vital Signs Vitals Vital Signs Date Time Temp Pulse Resp B/P Pulse Ox O2 Delivery O2 Flow Rate FiO2 01/20/17 20:00 98.9 76 16 124/57 92 01/20/17 19:45 21 01/20/17 13:47 Nasal Cannula 2.0 Intake and Output 01/19/17 01/19/17 01/20/17 15:00 23:00 07:00 Intake Total 550 ml Balance 550 ml Exam Free Text/Dictation A&Ox3 CTAB S1S2 present soft NTND BS+ truncal obesity LUE: palpable brachial pulses, motor/sensory intact, fistula with bruit and thrill present Results Result Diagram: 01/20/17 0656 01/20/17 0656 SHELBY MACDONALD MD Jan 20, 2017 20:51
[2017-01-20] MEDS: ATORVASTATIN 40 MG TAB PO SCH (20:52)
[2017-01-20] MEDS: INSULIN GLARGINE [LANtus] 3 ML PEN SC SCH (20:54)
[2017-01-20] MEDS: FAMOTIDINE 20 MG TAB PO SCH (20:59)
[2017-01-20] MEDS: PROMETHAZINE/CODEINE 5ML CUP PO PRN (21:00)
--- NOTE | 2017-01-20 23:49 | CONS ---
Date/Time of Note Date/Time of Note DATE: 01/20/17 TIME: 23:49 Assessment/Plan Assessment/Plan Problems: (1) Hammertoes of both feet (2) Arterial insufficiency of lower extremity Status: Acute (3) Osteomyelitis Status: Acute (4) Acquired absence of other right toe(s) (5) Acquired absence of right great toe (6) Diabetes, polyneuropathy Additional Assessment/Plan Moisturize feet daily. Elevate feet so that the heel off of the bed. May require bedside debridement of nails. Discussed and counseled patient in great detail regarding the deleterious effects of diabetes mellitus on the lower extremity. Disussed importance of foot care and foot hygiene. Discussed proper foot wear and checking feet constantly. I also discussed continuation of care with the team of doctors. Recommendation is foot checkup q2 months. Thank you again for involving me in the care of this patient. If you have any questions regarding this case, please feel free to contact me at pager: or reach me at mobile: [phone]. Consultation Date/Type/Reason Admit Date/Time Jan 13, 2017 at 18:04 Date of Consultation: Jan 20, 2017 Type of Consultation: Foot and ankle surgeon Reason for Consultation Diabetic foot evaluation Hx of Present Illness Thank you very much for involving me in the care of this patient. As you very well-known, this is a 56-year-old female who was admitted to the hospital for complaints of shortness of breath. The patient's past medical history significant for diabetes, hypertension and renal disease. I was consult diabetic foot evaluation. Constitutional: no complaints, other (MALFUNC AVF OK NOW) Eyes: no complaints ENT: no complaints Respiratory: no complaints Psychological: no complaints Past Medical History As per history of present illness. Medical History: diabetes, hypertension, renal disease Past Surgical History As per history of present illness. Past Surgical Hx: other Social History As per history of present illness. Alcohol Use: none Smoking Status: Former smoker Drug Use: none Exam/Review of Systems Vital Signs Vitals Vital Signs Date Time Temp Pulse Resp B/P Pulse Ox O2 Delivery O2 Flow Rate FiO2 01/20/17 23:37 98.1 85 15 121/58 96 01/20/17 19:45 21 01/20/17 13:47 Nasal Cannula 2.0 Intake and Output 1001/19/17 01/20/17 15:00 23:00 07:00 Intake Total 550 ml Balance 550 ml Exam Morbidly morbidly obese female in no acute distress sitting comfortably on the bed. Bilateral feet show multiple amputations of toes and contracted toes. Edema of the lower extremity noted. There is no active open wound and no erythema. Both feet are nontender to palpation. Pedal pulses are weak and sensation is decreased to sharp dull vibratory temperature stimuli. Labs reviewed. Results Result Diagram: 01/20/17 0656 01/20/17 0656 Results 24 hrs Laboratory Tests Test 01/20/17 06:56 01/20/17 07:58 01/20/17 11:34 01/20/17 17:31 White Blood Count 4.9 # Red Blood Count 2.47 L Hemoglobin 8.3 L Hematocrit 26.6 L Mean Corpuscular Volume 107.7 H Mean Corpuscular Hemoglobin 33.6 H Mean Corpuscular Hemoglobin Concent 31.2 L Red Cell Distribution Width 13.5 Platelet Count 224 Mean Platelet Volume 10.9 H Neutrophils % 57.1 Lymphocytes % 24.1 Monocytes % 11.9 H Eosinophils % 6.5 Basophils % 0.2 Nucleated Red Blood Cells % 0.0 Neutrophils # 2.8 Lymphocytes # 1.2 Monocytes # 0.6 Eosinophils # 0.3 Basophils # 0.0 Nucleated Red Blood Cells # 0.0 Sodium Level 139 Potassium Level 4.9 Chloride Level 95 L Carbon Dioxide Level 31 Anion Gap 18 H Blood Urea Nitrogen 66 H Creatinine 6.88 H Glucose Level 148 Calcium Level 7.2 L Bedside Glucose 177 107 210 Test 01/20/17 20:18 Bedside Glucose 148 Medications Medications Current Medications Lorazepam (Ativan) 0.5 mg Q6H PRN IV ANXIETY Last administered on 01/20/17 22 :56; Admin Dose 0.5 MG; Start 01/13/17 at 18:30 Ondansetron HCl (Zofran Inj) 4 mg Q6H PRN IV NAUSEA AND/OR VOMITING Last administered on 01/17/17 20:45; Admin Dose 4 MG; Start 01/13/17 at 18:30 Nitroglycerin (Nitroglycerin (Sl Tab) 0.4 Mg) 1 tab Q5M PRN SL CHEST PAIN; Start 01/13/17 at 18:30 Acetaminophen (Tylenol Tab) 650 mg Q6H PRN PO PAIN LEVEL 1-3 OR FEVER Last administered on 01/20/17 14:21; Admin Dose 650 MG; Start 01/13/17 at 18:30 Morphine Sulfate (morphine) 2 mg Q4H PRN IV PAIN LEVEL 7-10 Last administered on 01/19/17 14:06; Admin Dose 2 MG; Start 01/13/17 at 18:30 Famotidine (Pepcid) 10 mg HS PO Last administered on 01/20/17 20:59; Admin Dose 10 MG; Start 01/13/17 at 21:00 Heparin Sodium (Porcine) (Heparin (5000 Units/0.5 ml)) 5,000 unit Q12 SC Last administered on 01/20/17 20:58; Admin Dose 5,000 UNIT; Start 01/13/17 at 21: 00 Amlodipine Besylate (Norvasc) 10 mg DAILY PO Last administered on 01/20/17 08 :11; Admin Dose 10 MG; Start 01/14/17 at 09:00 Aspirin (Halfprin) 81 mg DAILY PO Last administered on 01/20/17 08:10; Admin Dose 81 MG; Start 01/14/17 at 09:00 Atorvastatin Calcium (Lipitor) 40 mg QHS PO Last administered on 01/20/17 20: 52; Admin Dose 40 MG; Start 01/13/17 at 21:00 Carvedilol (Coreg) 6.25 mg DAILY PO Last administered on 01/20/17 08:11; Admin Dose 6.25 MG; Start 01/14/17 at 09:00 Clonidine (Catapres) 0.2 mg TID PRN PO FOR SBP >160; Start 01/13/17 at 19:00 Clopidogrel Bisulfate (plaVIX) 75 mg DAILY PO Last administered on 01/20/17 08:10; Admin Dose 75 MG; Start 01/14/17 at 09:00 Folic Acid (Folic Acid) 1 mg DAILY PO Last administered on 01/20/17 08:09; Admin Dose 1 MG; Start 01/14/17 at 09:00 Gabapentin (Neurontin) 300 mg BID PO Last administered on 01/20/17 20:58; Admin Dose 300 MG; Start 01/13/17 at 21:00 Linagliptin (Tradjenta) 5 mg DAILY PO Last administered on 01/20/17 08:16; Admin Dose 5 MG; Start 01/14/17 at 09:00 Multivit/Ca Carb/ B Cmplx/FA/Prenat (Addie-Mikayla) 1 tab DAILY PO Last administered on 01/20/17 08:09; Admin Dose 1 TAB; Start 01/14/17 at 09:00 Polyethylene Glycol (Miralax) 17 gm BID PO Last administered on 01/20/17 20: 56; Admin Dose 17 GM; Start 01/13/17 at 21:00 Miscellaneous Information 1 ea NOTE XX ; Start 01/13/17 at 19:00 Glucose (Glutose) 15 gm Q15M PRN PO DECREASED GLUCOSE; Start 01/13/17 at 19:00 Glucose (Glutose) 22.5 gm Q15M PRN PO DECREASED GLUCOSE; Start 01/13/17 at 19: 00 Dextrose (D50w Syringe) 25 ml Q15M PRN IV DECREASED GLUCOSE; Start 01/13/17 at 19:00 Dextrose (D50w Syringe) 50 ml Q15M PRN IV DECREASED GLUCOSE; Start 01/13/17 at 19:00 Glucagon (Glucagen) 1 mg Q15M PRN IM DECREASED GLUCOSE; Start 01/13/17 at 19: 00 Glucose (Glutose) 15 gm Q15M PRN BUCCAL DECREASED GLUCOSE; Start 01/13/17 at 19:00 Morphine Sulfate (morphine) 2 mg Q4H PRN IV PAIN Last administered on 21:00; Admin Dose 2 MG; Start 01/14/17 at 01:00 Promethazine HCl/ Codeine (Phenergan/ Codeine) 5 ml Q4H PRN PO COUGH Last administered on 01/20/17 21:00; Admin Dose 5 ML; Start 01/14/17 at 12:30 Hydrocodone Bit/ Homatropine Methylb (Hycodan Liquid) 5 ml Q6 PRN PO COUGH Last administered on 01/20/17 01:23; Admin Dose 5 ML; Start 01/14/17 at 13:30 Diagnostic Test (Pha) (Accu-Chek) 1 ea 02 XX ; Start 01/15/17 at 02:00 Levofloxacin (Levaquin) 250 mg Q48H PO Last administered on 01/19/17 20:14; Admin Dose 250 MG; Start 01/15/17 at 20:00 Insulin Glargine (Lantus) 18 unit DAILY@20 SC Last administered on 01/20/17 20:54; Admin Dose 18 UNIT; Start 01/16/17 at 20:00 MONICA MONTANO DPM Jan 20, 2017 23:49
[2017-01-21] VITALS (12 sets, daily range): BP systolic 112–144; BP diastolic 53–92; PULSE 70–83; RESP 17–20
[2017-01-21] MEDS: ACCU-CHEK XX SCH (02:00)
[2017-01-21] MEDS: LEVALBUTEROL (NEB) 0.63 MG/3 ML AMP HHN SCH ×4 (02:49→19:34)
[2017-01-21] MEDS: morphine 2 MG INJ IV PRN ×5 (03:03→23:00)
[2017-01-21] MEDS: PROMETHAZINE/CODEINE 5ML CUP PO PRN ×2 (03:03→21:24)
[2017-01-21 07:28] LABS: BASOPHILS % 0.5 % (0.0-2.0); EOSINOPHILS # 0.3 10^3/ul (0.0-0.5); EOSINOPHILS % 6.8 % (0.0-7.0); HEMATOCRIT 25.2 % (37.0-47.0); HEMOGLOBIN 7.7 g/dl (12.0-16.0); LYMPHOCYTES # 1.1 10^3/ul (0.8-2.9); LYMPHOCYTES % 25.8 % (15.0-51.0); MEAN CORPUSCULAR HEMOGLOBIN 32.9 pg (29.0-33.0); MEAN CORPUSCULAR HGB CONC 30.6 g/dl (32.0-37.0); MEAN CORPUSCULAR VOLUME 107.7 fl (82.0-101.0); MEAN PLATELET VOLUME 11.2 fl (7.4-10.4); MONOCYTE # 0.6 10^3/ul (0.3-0.9); MONOCYTES % 14.3 % (0.0-11.0); NEUTROPHIL # 2.2 10^3/ul (1.6-7.5); NEUTROPHILS % 52.6 % (39.0-77.0); PLATELET COUNT 205 10^3/UL (140-415); RED BLOOD COUNT 2.34 10^6/ul (4.20-5.40); RED CELL DISTRIBUTION WIDTH 13.7 % (11.5-14.5); WHITE BLOOD COUNT 4.1 10^3/ul (4.8-10.8)
[2017-01-21 07:54] LABS: CALCIUM 7.3 mg/dl (8.4-10.2); CREATININE 5.44 mg/dl (0.44-1.00); POTASSIUM 4.6 mmol/L (3.5-5.1)
[2017-01-21] MEDS: PANTOPRAZOLE (EC) 40 MG TAB PO SCH (08:26)
[2017-01-21] MEDS: AMLODIPINE 10 MG TAB PO SCH (08:26)
[2017-01-21] MEDS: SEVELAMER CARBONATE 0.8 GM PKT PO SCH ×3 (08:26→17:55)
[2017-01-21] MEDS: MULTIVIT/CA CARB/B CMPLX/FA TAB PO SCH (08:26)
[2017-01-21] MEDS: LINAGLIPTIN 5 MG TABLET PO SCH (08:27)
[2017-01-21] MEDS: ASPIRIN (EC) 81 MG TAB PO SCH (08:27)
[2017-01-21] MEDS: FOLIC ACID 1 MG TAB PO SCH (08:27)
[2017-01-21] MEDS: POLYETHYLENE GLYCOL 17 GM PACKET PO SCH ×2 (08:27→21:23)
[2017-01-21] MEDS: GABAPENTIN 300 MG CAP PO SCH ×2 (08:27→21:23)
[2017-01-21] MEDS: INSULIN ASPART [NOVOLOG] 3 ML PEN SC SCH ×7 (08:30→21:00)
[2017-01-21] MEDS: CLOPIDOGREL 75 MG TAB PO SCH (08:44)
[2017-01-21] MEDS: HEPARIN 5,000 UNIT/0.5 ML VIAL SC SCH ×2 (08:48→21:21)
--- NOTE | 2017-01-21 09:40 | CONS ---
Date/Time of Note Date/Time of Note DATE: 01/21/17 TIME: 09:38 Assessment/Plan Assessment/Plan Chief Complaint/Hosp Course 56 y/o with 1. Fluid overload, uncontrolled hypertension.BETTER 2. End-stage renal disease. 3. Hypertension. 4. Diabetes mellitus. 5. Hyperkalemia. 6. Atherosclerotic heart disease. 7. Peripheral vascular disease. 8. History of dyslipidemia. 9 History of pneumonia. 10. History of leg cellulitis. 11. History of wound dehiscence. 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 Plan - s/p venuplasty yesterday - De Egmalihaalieh to take her again to OR today for coli embolisation of tributaries - HD tmw - c/w Coreg/amlodipine - GI and Dvt prophylaxsis Problems: Consultation Date/Type/Reason Admit Date/Time Jan 13, 2017 at 18:04 Type of Consultation: RENAL 24 HR Interval Summary Free Text/Dictation Pt scheduled for embolisation of tributareies today at 2 pm Deneis any complains Exam/Review of Systems Vital Signs Vitals Vital Signs Date Time Temp Pulse Resp B/P Pulse Ox O2 Delivery O2 Flow Rate FiO2 01/21/17 08:45 83 01/21/17 07:56 99.5 17 144/92 94 01/21/17 02:49 Nasal Cannula 2.0 01/20/17 19:45 21 Intake and Output 01/20/17 01/20/17 01/21/17 15:00 23:00 07:00 Intake Total 500 ml 2500 ml 300 ml Output Total 4000 ml Balance -3500 ml 2500 ml 300 ml Exam Gen: Awake and alert Respiratory: clear to auscultation Cardiovascular: regular rate and rhythm Gastrointestinal: bowel sounds (+), soft Extremities: edema (++) Left ue fistila proximal part bruit and thrill, absent in distal part Results Result Diagram: 01/21/1720 01/21/17 0620 Results 24 hrs Laboratory Tests Test 01/20/17 11:34 01/20/17 17:31 01/20/17 20:18 01/21/17 06:20 Bedside Glucose 107 210 148 White Blood Count 4.1 L Red Blood Count 2.34 L Hemoglobin 7.7 L Hematocrit 25.2 L Mean Corpuscular Volume 107.7 H Mean Corpuscular Hemoglobin 32.9 Mean Corpuscular Hemoglobin Concent 30.6 L Red Cell Distribution Width 13.7 Platelet Count 205 Mean Platelet Volume 11.2 H Neutrophils % 52.6 Lymphocytes % 25.8 Monocytes % 14.3 H Eosinophils % 6.8 Basophils % 0.5 Nucleated Red Blood Cells % 0.0 Neutrophils # 2.2 Lymphocytes # 1.1 Monocytes # 0.6 Eosinophils # 0.3 Basophils # 0.0 Nucleated Red Blood Cells # 0.0 Sodium Level 141 Potassium Level 4.6 Chloride Level 100 Carbon Dioxide Level 31 Anion Gap 15 Blood Urea Nitrogen 48 #H Creatinine 5.44 H Glucose Level 142 Calcium Level 7.3 L Test 01/21/17 08:24 Bedside Glucose 189 Medications Medications Current Medications Lorazepam (Ativan) 0.5 mg Q6H PRN IV ANXIETY Last administered on 01/20/17 22 :56; Admin Dose 0.5 MG; Start 01/13/17 at 18:30 Ondansetron HCl (Zofran Inj) 4 mg Q6H PRN IV NAUSEA AND/OR VOMITING Last administered on 01/17/17 20:45; Admin Dose 4 MG; Start 01/13/17 at 18:30 Nitroglycerin (Nitroglycerin (Sl Tab) 0.4 Mg) 1 tab Q5M PRN SL CHEST PAIN; Start 01/13/17 at 18:30 Acetaminophen (Tylenol Tab) 650 mg Q6H PRN PO PAIN LEVEL 1-3 OR FEVER Last administered on 01/20/17 14:21; Admin Dose 650 MG; Start 01/13/17 at 18:30 Morphine Sulfate (morphine) 2 mg Q4H PRN IV PAIN LEVEL 7-10 Last administered on 01/19/17 14:06; Admin Dose 2 MG; Start 01/13/17 at 18:30 Famotidine (Pepcid) 10 mg HS PO Last administered on 01/20/17 20:59; Admin Dose 10 MG; Start 01/13/17 at 21:00 Heparin Sodium (Porcine) (Heparin (5000 Units/0.5 ml)) 5,000 unit Q12 SC Last administered on 01/21/17 08:48; Admin Dose 5,000 UNIT; Start 01/13/17 at 21: 00 Amlodipine Besylate (Norvasc) 10 mg DAILY PO Last administered on 01/21/17 08 :26; Admin Dose 10 MG; Start 01/14/17 at 09:00 Aspirin (Halfprin) 81 mg DAILY PO Last administered on 01/21/17 08:27; Admin Dose 81 MG; Start 01/14/17 at 09:00 Atorvastatin Calcium (Lipitor) 40 mg QHS PO Last administered on 01/20/17 20: 52; Admin Dose 40 MG; Start 01/13/17 at 21:00 Carvedilol (Coreg) 6.25 mg DAILY PO Last administered on 01/21/17 08:27; Admin Dose 6.25 MG; Start 01/14/17 at 09:00 Clonidine (Catapres) 0.2 mg TID PRN PO FOR SBP >160; Start 01/13/17 at 19:00 Clopidogrel Bisulfate (plaVIX) 75 mg DAILY PO Last administered on 01/21/17 08:44; Admin Dose 75 MG; Start 01/14/17 at 09:00 Folic Acid (Folic Acid) 1 mg DAILY PO Last administered on 01/21/17 08:27; Admin Dose 1 MG; Start 01/14/17 at 09:00 Gabapentin (Neurontin) 300 mg BID PO Last administered on 01/21/17 08:27; Admin Dose 300 MG; Start 01/13/17 at 21:00 Linagliptin (Tradjenta) 5 mg DAILY PO Last administered on 01/21/17 08:27; Admin Dose 5 MG; Start 01/14/17 at 09:00 Multivit/Ca Carb/ B Cmplx/FA/Prenat (Addie-Mikayla) 1 tab DAILY PO Last administered on 01/21/17 08:26; Admin Dose 1 TAB; Start 01/14/17 at 09:00 Polyethylene Glycol (Miralax) 17 gm BID PO Last administered on 01/21/17 08: 27; Admin Dose 17 GM; Start 01/13/17 at 21:00 Miscellaneous Information 1 ea NOTE XX ; Start 01/13/17 at 19:00 Glucose (Glutose) 15 gm Q15M PRN PO DECREASED GLUCOSE; Start 01/13/17 at 19:00 Glucose (Glutose) 22.5 gm Q15M PRN PO DECREASED GLUCOSE; Start 01/13/17 at 19: 00 Dextrose (D50w Syringe) 25 ml Q15M PRN IV DECREASED GLUCOSE; Start 01/13/17 at 19:00 Dextrose (D50w Syringe) 50 ml Q15M PRN IV DECREASED GLUCOSE; Start 01/13/17 at 19:00 Glucagon (Glucagen) 1 mg Q15M PRN IM DECREASED GLUCOSE; Start 01/13/17 at 19: 00 Glucose (Glutose) 15 gm Q15M PRN BUCCAL DECREASED GLUCOSE; Start 01/13/17 at 19:00 Morphine Sulfate (morphine) 2 mg Q4H PRN IV PAIN Last administered on 08:28; Admin Dose 2 MG; Start 01/14/17 at 01:00 Promethazine HCl/ Codeine (Phenergan/ Codeine) 5 ml Q4H PRN PO COUGH Last administered on 01/21/17 03:03; Admin Dose 5 ML; Start 01/14/17 at 12:30 Hydrocodone Bit/ Homatropine Methylb (Hycodan Liquid) 5 ml Q6 PRN PO COUGH Last administered on 01/20/17 01:23; Admin Dose 5 ML; Start 01/14/17 at 13:30 Diagnostic Test (Pha) (Accu-Chek) 1 ea 02 XX ; Start 01/15/17 at 02:00 Levofloxacin (Levaquin) 250 mg Q48H PO Last administered on 01/19/17 20:14; Admin Dose 250 MG; Start 01/15/17 at 20:00 Insulin Glargine (Lantus) 18 unit DAILY@20 SC Last administered on 01/20/17 20:54; Admin Dose 18 UNIT; Start 01/16/17 at 20:00 DARELL JAMES MD Jan 21, 2017 09:40
[2017-01-21] MEDS: LORAZEPAM 2 MG INJ IV PRN ×2 (10:01→21:24)
--- NOTE | 2017-01-21 15:44 | PN ---
Date/Time of Note Date/Time of Note DATE: 01/21/17 TIME: 15:43 Assessment/Plan VTE Prophylaxis VTE Prophylaxis Intervention: SCD's Lines/Catheters IV [facility]ter Type [facility]from [facility]): Saline Lock Urinary Cath still in place: No Assessment/Plan Chief Complaint/Hosp Course Patient is taking to procedure, no acute events reported prior to procedure. Patient remains in atrial fibrillation with controlled rate. Assessment/Plan -Atrial fibrillation, continue heparin. Dr. William is following in cardiology consultation. -Acute respiratory failure secondary to pulmonary edema, resolving. -Hemodialysis dependent end-stage renal disease, Dr. Garcia is following in nephrology consultation, continue hemodialysis. -Status post fistulogram, status post left upper extremity anastomosis angioplasty by Dr. Ruano on 01/19. -E. coli UTI, continue Levaquin. -Diabetes mellitus type 2, hemoglobin A1c 6.5, continue Tradjenta Lantus and NovoLog -HTN -Severe PVD, with multiple vascular intervention including a left lower extremity bypass. -S/p orthopedic procedures to RUE with metal prosthetic after bone Fx -Poor medical compliance Further recommendations based on clinical course. Plan of care is discussed with Dr. Cordero Problems: Exam/Review of Systems Vital Signs Vitals Vital Signs Date Time Temp Pulse Resp B/P Pulse Ox O2 Delivery O2 Flow Rate FiO2 01/21/17 13:50 75 19 94 Nasal Cannula 2.0 01/21/17 11:19 98.9 114/57 01/20/17 19:45 21 Intake and Output 01/20/17 01/20/17 01/21/17 15:00 23:00 07:00 Intake Total 500 ml 2500 ml 300 ml Output Total 4000 ml Balance -3500 ml 2500 ml 300 ml Results Result Diagram: 01/21/17 0620 01/21/17 0620 Results 24 hrs Laboratory Tests Test 01/20/17 17:31 01/20/17 20:18 01/21/17 06:20 01/21/17 08:24 Bedside Glucose 210 148 189 White Blood Count 4.1 L Red Blood Count 2.34 L Hemoglobin 7.7 L Hematocrit 25.2 L Mean Corpuscular Volume 107.7 H Mean Corpuscular Hemoglobin 32.9 Mean Corpuscular Hemoglobin Concent 30.6 L Red Cell Distribution Width 13.7 Platelet Count 205 Mean Platelet Volume 11.2 H Neutrophils % 52.6 Lymphocytes % 25.8 Monocytes % 14.3 H Eosinophils % 6.8 Basophils % 0.5 Nucleated Red Blood Cells % 0.0 Neutrophils # 2.2 Lymphocytes # 1.1 Monocytes # 0.6 Eosinophils # 0.3 Basophils # 0.0 Nucleated Red Blood Cells # 0.0 Sodium Level 141 Potassium Level 4.6 Chloride Level 100 Carbon Dioxide Level 31 Anion Gap 15 Blood Urea Nitrogen 48 #H Creatinine 5.44 H Glucose Level 142 Calcium Level 7.3 L Test 01/21/17 11:45 Bedside Glucose 204 Medications Medications Current Medications Lorazepam (Ativan) 0.5 mg Q6H PRN IV ANXIETY Last administered on 01/21/17 10 :01; Admin Dose 0.5 MG; Start 01/13/17 at 18:30 Ondansetron HCl (Zofran Inj) 4 mg Q6H PRN IV NAUSEA AND/OR VOMITING Last administered on 01/17/17 20:45; Admin Dose 4 MG; Start 01/13/17 at 18:30 Nitroglycerin (Nitroglycerin (Sl Tab) 0.4 Mg) 1 tab Q5M PRN SL CHEST PAIN; Start 01/13/17 at 18:30 Acetaminophen (Tylenol Tab) 650 mg Q6H PRN PO PAIN LEVEL 1-3 OR FEVER Last administered on 01/20/17 14:21; Admin Dose 650 MG; Start 01/13/17 at 18:30 Morphine Sulfate (morphine) 2 mg Q4H PRN IV PAIN LEVEL 7-10 Last administered on 01/19/17 14:06; Admin Dose 2 MG; Start 01/13/17 at 18:30 Famotidine (Pepcid) 10 mg HS PO Last administered on 01/20/17 20:59; Admin Dose 10 MG; Start 01/13/17 at 21:00 Heparin Sodium (Porcine) (Heparin (5000 Units/0.5 ml)) 5,000 unit Q12 SC Last administered on 01/21/17 08:48; Admin Dose 5,000 UNIT; Start 01/13/17 at 21: 00 Amlodipine Besylate (Norvasc) 10 mg DAILY PO Last administered on 01/21/17 08 :26; Admin Dose 10 MG; Start 01/14/17 at 09:00 Aspirin (Halfprin) 81 mg DAILY PO Last administered on 01/21/17 08:27; Admin Dose 81 MG; Start 01/14/17 at 09:00 Atorvastatin Calcium (Lipitor) 40 mg QHS PO Last administered on 01/20/17 20: 52; Admin Dose 40 MG; Start 01/13/17 at 21:00 Clonidine (Catapres) 0.2 mg TID PRN PO FOR SBP >160; Start 01/13/17 at 19:00 Clopidogrel Bisulfate (plaVIX) 75 mg DAILY PO Last administered on 01/21/17 08:44; Admin Dose 75 MG; Start 01/14/17 at 09:00 Folic Acid (Folic Acid) 1 mg DAILY PO Last administered on 01/21/17 08:27; Admin Dose 1 MG; Start 01/14/17 at 09:00 Gabapentin (Neurontin) 300 mg BID PO Last administered on 01/21/17 08:27; Admin Dose 300 MG; Start 01/13/17 at 21:00 Linagliptin (Tradjenta) 5 mg DAILY PO Last administered on 01/21/17 08:27; Admin Dose 5 MG; Start 01/14/17 at 09:00 Multivit/Ca Carb/ B Cmplx/FA/Prenat (Addie-Mikayla) 1 tab DAILY PO Last administered on 01/21/17 08:26; Admin Dose 1 TAB; Start 01/14/17 at 09:00 Polyethylene Glycol (Miralax) 17 gm BID PO Last administered on 01/21/17 08: 27; Admin Dose 17 GM; Start 01/13/17 at 21:00 Miscellaneous Information 1 ea NOTE XX ; Start 01/13/17 at 19:00 Glucose (Glutose) 15 gm Q15M PRN PO DECREASED GLUCOSE; Start 01/13/17 at 19:00 Glucose (Glutose) 22.5 gm Q15M PRN PO DECREASED GLUCOSE; Start 01/13/17 at 19: 00 Dextrose (D50w Syringe) 25 ml Q15M PRN IV DECREASED GLUCOSE; Start 01/13/17 at 19:00 Dextrose (D50w Syringe) 50 ml Q15M PRN IV DECREASED GLUCOSE; Start 01/13/17 at 19:00 Glucagon (Glucagen) 1 mg Q15M PRN IM DECREASED GLUCOSE; Start 01/13/17 at 19: 00 Glucose (Glutose) 15 gm Q15M PRN BUCCAL DECREASED GLUCOSE; Start 01/13/17 at 19:00 Morphine Sulfate (morphine) 2 mg Q4H PRN IV PAIN Last administered on 13:27; Admin Dose 2 MG; Start 01/14/17 at 01:00 Promethazine HCl/ Codeine (Phenergan/ Codeine) 5 ml Q4H PRN PO COUGH Last administered on 01/21/17 03:03; Admin Dose 5 ML; Start 01/14/17 at 12:30 Hydrocodone Bit/ Homatropine Methylb (Hycodan Liquid) 5 ml Q6 PRN PO COUGH Last administered on 01/20/17 01:23; Admin Dose 5 ML; Start 01/14/17 at 13:30 Diagnostic Test (Pha) (Accu-Chek) 1 ea 02 XX ; Start 01/15/17 at 02:00 Levofloxacin (Levaquin) 250 mg Q48H PO Last administered on 01/19/17 20:14; Admin Dose 250 MG; Start 01/15/17 at 20:00 Insulin Glargine (Lantus) 18 unit DAILY@20 SC Last administered on 01/20/17 20:54; Admin Dose 18 UNIT; Start 01/16/17 at 20:00 Carvedilol (Coreg) 6.25 mg BID PO ; Start 01/21/17 at 21:00 ANTHONY DUPREE Jan 21, 2017 15:44
[2017-01-21] MEDS: ACETAMINOPHEN 325 MG TAB PO PRN ×2 (15:59→21:30)
[2017-01-21 18:41] LABS: CREATINE KINASE 176 IU/L (23-200)
[2017-01-21 19:00] LABS: TROPONIN-I < 0.012 ng/ml (0.00-0.12)
--- NOTE | 2017-01-21 20:23 | CONS ---
DATE OF ADMISSION: 01/13/2017 DATE OF CONSULTATION: 01/21/2017 REASON FOR CONSULTATION: Atrial fibrillation. REQUESTING PHYSICIAN: Kirstin Cordero MD. HISTORY OF PRESENT ILLNESS: Ms. Petit a 56-year-old female with a history of peripheral ar terial disease, status post left lower extremity bypass, end-stage renal disease on hemodialysis, di abetes mellitus, hypertension who had initially presented 01/13/2017 with worsening shortness of irving ath. The patient at that time underwent a chest x-ray and pulmonary edema and was also noted to hav e a mildly elevated potassium of 5.3 and hypertensive with systolic blood pressures greater than 200 . The patient was subsequently admitted to the floor. Since then, she has been followed by Renal a nd undergone hemodialysis, with improvement in respiratory status. Has been placed on antibiotics, bronchodilators, and baseline antihypertensives with carvedilol, Norvasc, and given aspirin and Plav ix. The patient has had this time. Has undergone a procedure by Vascular Surgery with a left upper extremity fistulogram, left lower extremity arterial angiogram, and an anastomotic angioplast y, improving the fistula function. The patient has additionally been monitored on telemetry and bee n noted to be in atrial fibrillation. Given these findings, Cardiology consult requested. PAST MEDICAL HISTORY: As above in HPI. MEDICATIONS CURRENTLY IN HOSPITAL 1. Insulin. 2. Levofloxacin. 3. Xopenex. 4. Hydrocodone. 5. Norvasc 10 mg daily. 6. Aspirin 81 mg daily. 7. Plavix 75 mg daily. 8. Carvedilol 6.25 mg p.o. daily. 9. Folic acid 1 mg daily. 10. Tradjenta 5 mg daily. 11. Renvela. 12. Protonix 40 mg daily. 13. Morphine 2 mg IV push q. 4 p.r.n. 14. Pepcid 10 mg at bedtime. 15. Atorvastatin 40 mg at bedtime. 16. Neurontin 300 mg b.i.d. 17. MiraLax 17 grams b.i.d. 18. Clonidine p.r.n. 19. Ativan p.r.n. 20. Zofran p.r.n. 21. Sublingual nitroglycerin p.r.n. ALLERGIES: NO KNOWN DRUG ALLERGIES. SOCIAL HISTORY: No tobacco, ETOH, or illicit drug use. FAMILY HISTORY: Negative for sudden cardiac or early CAD. REVIEW OF SYSTEMS: As above in HPI. CONSTITUTIONAL: No fevers, chills. PULMONARY: Mild shortness of breath. CARDIOVASCULAR: No current chest pain. Atrial fibrillation. GASTROINTESTINAL: No vomiting. GENITOURINARY: No hematuria. MUSCULOSKELETAL: Degenerative joint disease. PSYCHIATRIC: No documented psychiatric history. NEUROLOGICAL: No documented history of CVA. ENDOCRINE: Diabetes mellitus. PHYSICAL EXAMINATION VITAL SIGNS: Temperature of 98.9, blood pressure 114/57, pulse is 75, respiratory rate 18, saturati ng 93% on 2 liters. GENERAL: The patient is alert, awake. No acute distress. NECK: JVP approximately 9 cm of water. CHEST: Decreased breath sounds at the bases bilaterally. HEART: Irregularly irregular. Grade I/ systolic murmur. nondisplaced PMI. ABDOMEN: Positive bowel sounds. Soft. EXTREMITIES: Positive edema bilaterally. Difficult to palpate distal pulses bilaterally, posterior tibial. LABORATORY DATA: Most recently from today: Sodium 141, potassium 4.6, creatinine 5.44, BUN of 48. White blood cell count 4.1, hemoglobin 7.7, platelet count of 205. UA negative. IMAGING STUDIES: As above in the HPI, with the most recent chest CT from 01/17/2017 revealing no fo randolph consolidation, minimal left lower lobe ground glass opacity, 2 mm subpleural nodule, heterogeneo us thyroid, and a lower extremity arterial study revealing a patent left brachial artery to cephalic vein fistula, arterial anastomosis, severe stenosis with annular dilatation of the proximal fistula just beyond anastomosis. ECG: No recent electrocardiogram on the chart for my review at this time. IMPRESSION 1. Atrial fibrillation, currently rate controlled, but not on systemic anticoagulation, but on aspi rin and Plavix, status post PTCA to arteriovenous (AV) fistula, with the patient having elevated IRMA DS-VASc score and therefore placing her at an increased risk for thromboembolic complications of atr ial fibrillation benefit from systemic anticoagulation if possible, and therefore, we will dis cuss with Vascular Surgery if reasonable to, once vascular surgery procedures are done, change the p atient to Plavix with systemic anticoagulation with Eliquis and discontinue aspirin. 2. Hypertension, under reasonable control. 3. Respiratory distress, improved. 4. Congestive heart failure (CHF), question diastolic versus systolic and improve volume status. 5. End-stage renal disease on hemodialysis. 6. Diabetes mellitus. 7. Peripheral arterial disease, status post lower extremity bypass. 8. Dyslipidemia. 9. Anemia, severe. RECOMMENDATIONS 1. At this time, I would maintain the patient on playground monitor to follow rhythm closely. 2. As discussed above, we will maintain the patient on aspirin and Plavix at this time and add hepa rin subcutaneous, and once the patient's procedures are done, would consider changing the patient to a regimen of Plavix with Eliquis and discontinue the aspirin for prevention of thromboembolic compl ications in the setting of atrial fibrillation and increased CHADS-VASc score. 3. Continue the patient's current Norvasc and carvedilol, but change carvedilol to b.i.d. dosing, g iven medication and improve overall efficacy. 4. Hemodialysis for volume removal aggressively. 5. Continue the patient's statin therapy and adjust it according to a fasting lipid checked. 6. We will complete a rule out for myocardial infarction to ensure that the patient's are not due to, or if not resulted in, any acute coronary syndrome acute myocardial infarction, and w e will send troponins q. 6 x2. 7. Continue the patient's antibiotics and follow up all data. 8. The patient is to undergo further vascular procedures today. 9. Continue bronchodilators and follow respiratory status closely, and the patient's insulin therapy adjust as necessary. 10. Additionally, we will assess to see if the patient has had recent 2D echo in the last [facility], and if not, we will have an echo done for assessment of ejection fraction, wall motion . Thank you for allowing me to take part in the care of this patient. I will continue to follow along very closely with you. Further recommendations will be made as the patient progresses through her inpatient hospital clinical course. Dictated By: GERTRUDIS EVERETT/MAURICIO Conf#: [id number] DID#: [id number] CC: KIRTSIN CORDERO MD;*EndCC*
[2017-01-21] MEDS: INSULIN GLARGINE [LANtus] 3 ML PEN SC SCH (21:22)
[2017-01-21] MEDS: LEVOFLOXACIN 250 MG TAB PO SCH (21:23)
[2017-01-21] MEDS: FAMOTIDINE 20 MG TAB PO SCH (21:23)
[2017-01-21] MEDS: ATORVASTATIN 40 MG TAB PO SCH (21:23)
[2017-01-22] VITALS (19 sets, daily range): BP systolic 125–184; BP diastolic 56–85; PULSE 63–78; RESP 18–21
[2017-01-22 01:03] LABS: CREATINE KINASE 151 IU/L (23-200)
[2017-01-22 01:15] LABS: CK-MB 1.36 ng/ml (0.0-2.4)
[2017-01-22 01:19] LABS: TROPONIN-I < 0.012 ng/ml (0.00-0.12)
[2017-01-22] MEDS: LEVALBUTEROL (NEB) 0.63 MG/3 ML AMP HHN SCH ×4 (01:46→20:45)
[2017-01-22] MEDS: ACCU-CHEK XX SCH (02:00)
[2017-01-22] MEDS: PROMETHAZINE/CODEINE 5ML CUP PO PRN ×2 (02:47→22:26)
[2017-01-22] MEDS: morphine 2 MG INJ IV PRN ×4 (02:51→20:43)
[2017-01-22 06:30] LABS: BASOPHILS % 0.5 % (0.0-2.0); EOSINOPHILS # 0.3 10^3/ul (0.0-0.5); EOSINOPHILS % 6.5 % (0.0-7.0); HEMATOCRIT 24.5 % (37.0-47.0); HEMOGLOBIN 7.5 g/dl (12.0-16.0); LYMPHOCYTES # 1.1 10^3/ul (0.8-2.9); LYMPHOCYTES % 24.9 % (15.0-51.0); MEAN CORPUSCULAR HEMOGLOBIN 32.9 pg (29.0-33.0); MEAN CORPUSCULAR HGB CONC 30.6 g/dl (32.0-37.0); MEAN CORPUSCULAR VOLUME 107.5 fl (82.0-101.0); MEAN PLATELET VOLUME 10.8 fl (7.4-10.4); MONOCYTE # 0.6 10^3/ul (0.3-0.9); MONOCYTES % 13.6 % (0.0-11.0); NEUTROPHIL # 2.4 10^3/ul (1.6-7.5); NEUTROPHILS % 54.3 % (39.0-77.0); PLATELET COUNT 207 10^3/UL (140-415); RED BLOOD COUNT 2.28 10^6/ul (4.20-5.40); RED CELL DISTRIBUTION WIDTH 13.6 % (11.5-14.5); WHITE BLOOD COUNT 4.3 10^3/ul (4.8-10.8)
[2017-01-22 07:11] LABS: CALCIUM 7.5 mg/dl (8.4-10.2); CREATININE 6.7 mg/dl (0.44-1.00); POTASSIUM 4.9 mmol/L (3.5-5.1)
[2017-01-22 07:30] LABS: CHOL/HDL RATIO 2.3 RATIO
--- NOTE | 2017-01-22 08:03 | OPR ---
DATE OF OPERATION: 01/19/2017 SURGEON: Adiel Runao MD. PREOPERATIVE DIAGNOSIS: Malfunctioning left upper extremity arteriovenous fistula. POSTOPERATIVE DIAGNOSIS: Malfunctioning left upper extremity arteriovenous fistula. ANESTHESIA: Local with sedation. ESTIMATED BLOOD LOSS: Minimal. COMPLICATIONS: None. HEPARIN: As recorded. CONTRAST: As recorded. ACCESS: 6-Turkmen sheath left upper extremity. CLOSURE: Manual compression and 3-0 nylon suture. INDICATIONS: This is a 56-year-old female who presented with a malfunctioning left upper extremity fistula in which she was not able to complete her dialysis sessions via her upper extremity brachioc ephalic fistula. Upon ultrasound findings, there was area of significant stenosis at the anastomoti c site. Therefore, the patient had been informed of alternatives, risks and benefits of angiogram, balloon angioplasty, stenting. Risks including but not limited to bleeding, thrombosis, embolizatio n, myocardial infarction, , stroke, device malfunction, infection, nephrotoxicity coil emboliza tion complications. The patient has agreed to proceed. This is the first diagnostic angiogram in t [facility] clinical setting. PROCEDURE: 1. Ultrasound-guided access of the left upper extremity fistula. 2. Left upper extremity fistulogram. 3. Second order selection of the radial artery. 4. Left upper extremity arterial angiogram, balloon angioplasty of the arterial anastomosis using a 4 x 20 mm and 5 x 20 mm balloon. FINDINGS: Patent fistula, patent cephalic vein, patent axillary vein, patent left subclavian vein, patent left brachiocephalic vein, patent superior vena cava. Patent tributary at the proximal aspect of the cephalic vein that seems to divert flow into the brac hial vein to the deep venous system. With fistula compression, the brachial artery was not seen, and it was identified the patient having a high takeoff of her radial artery and that is where the area of the anastomosis is located. This was further identified when we selected the radial artery in a second order fashion and a right upp er extremity arterial angiogram was performed. DESCRIPTION OF PROCEDURE: The patient was brought into the angio suite where he was positioned in s upine position on the fluoroscopic table. Sedation was administered without any complications. Lef t upper extremity was then shaved, prepped and draped in the usual standard sterile fashion. Time o ut and appropriate site was marked and confirmed. Local incision was infiltrated in the region of t he left upper extremity fistula. The fistula was then cannulated with a micro access needle under ultrasound guidance and a guidewire was advanced into the cephalic vein under fluoroscopic guidance. The guidewire was advanced toward s the arterial anastomosis under fluoroscopic guidance. The needle was then removed and a glide cat heter was placed. Multi-station fistulogram and a central venogram was then performed and the findi ngs are noted above. At this point, it was identified patient having an area of high stenosis at th e anastomotic site. Plan was to intervene in this area with performing balloon angioplasty. Furthe r, the patient had findings of multiple tributaries coming off the cephalic vein diverting flow into the deep venous system which can explain if the patient has malfunctioning fistula in addition to a rterial anastomotic stenosis. 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 Therefore, upon multiple oblique views we were able to eventually cannulate the artery an d the catheter was passed to the proximal aspect of the artery. It was identified the patient havin g a high takeoff of her radial artery; therefore, a dedicated right upper extremity angiogram was pe rformed after performing a second order selection and the brachial artery had patent flow without an y areas of stenosis or flow-limiting stenosis. The ulnar artery was also performed. At this point, the ulnar artery was also identified, which was patent. Radial artery was patent distally and the interosseous artery was patent distally. At this point, since we had our wire access, we went ahead and performed balloon angioplasty of the anastomotic site using a 4 mm x 20 mm balloon and this was then performed again using a larger balloon 5 mm x 20 mm balloon. At this point, the fistula was e xamined and had increased bruit and thrill. Multiple attempts were made with a second order selecti on of the tributaries in order to perform coil embolization, however, the catheters were not able to make the appropriate selection based on how our sheath was located. Therefore, decision was made t o bring the patient back at a later time for performance of a coil embolization of the tributaries i f possible. Otherwise, we will plan to perform ligation of those areas. At this point, all sheaths , catheters and wires were removed. The patient tolerated the procedure well and was taken to the ostanesthesia care unit in stable condition. All instrument, sponge and needle counts were correct x2. PLAN: We will plan to bring the patient back for coil embolization of the tributary in the proximal aspect of the fistula. Dictated By: ADIEL REYNOSO/MAURICIO Conf#: [id number] DID#: [id number]
[2017-01-22] MEDS ORDERED: SOD CHLORIDE 0.9% 250 ML IV* ONE (08:14)
[2017-01-22] MEDS ORDERED: EPOETIN 10000 UNITS/1 ML INJ (ESRD) SC ONE (09:00)
--- NOTE | 2017-01-22 10:23 | CONS ---
Date/Time of Note Date/Time of Note DATE: 01/22/17 TIME: 10:23 Assessment/Plan Assessment/Plan Chief Complaint/Hosp Course 56 y/o with 1. Fluid overload, uncontrolled hypertension.BETTER 2. End-stage renal disease. 3. Hypertension. 4. Diabetes mellitus. 5. Hyperkalemia. 6. Atherosclerotic heart disease. 7. Peripheral vascular disease. 8. History of dyslipidemia. 9 History of pneumonia. 10. History of leg cellulitis. 11. History of wound dehiscence. 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 Plan - s/p venuplasty - [facility] to take her again to OR tMW for coli embolisation of tributaries - HD tODAY - c/w Coreg/amlodipine - GI and Dvt prophylaxsis Problems: Consultation Date/Type/Reason Admit Date/Time Jan 13, 2017 at 18:04 Type of Consultation: RENAL 24 HR Interval Summary Free Text/Dictation HD today Exam/Review of Systems Vital Signs Vitals Vital Signs Date Time Temp Pulse Resp B/P Pulse Ox O2 Delivery O2 Flow Rate FiO2 01/22/17 08:15 68 01/22/17 07:32 98.3 18 130/66 99 01/22/17 01:46 Nasal Cannula 3.0 21 Intake and Output 01/21/17 01/21/17 01/22/17 15:00 23:00 07:00 Intake Total 400 ml 200 ml Balance 400 ml 200 ml Exam Gen: Awake and alert Respiratory: clear to auscultation Cardiovascular: regular rate and rhythm Gastrointestinal: bowel sounds (+), soft Extremities: edema (++) Left ue fistila proximal part bruit and thrill, absent in distal part Results Result Diagram: 01/22/17 0549 01/22/17 0549 Results 24 hrs Laboratory Tests Test 01/21/17 11:45 01/21/17 17:13 01/21/17 18:12 01/21/17 21:01 Bedside Glucose 204 203 159 Creatine Kinase 176 Creatine Kinase Index 0.9 Creatinine Kinase MB (Mass) 1.50 Troponin I < 0.012 Test 01/22/17 00:00 01/22/17 05:49 01/22/17 07:48 Creatine Kinase 151 Creatine Kinase Index 0.9 Creatinine Kinase MB (Mass) 1.36 Troponin I < 0.012 White Blood Count 4.3 L Red Blood Count 2.28 L Hemoglobin 7.5 L Hematocrit 24.5 L Mean Corpuscular Volume 107.5 H Mean Corpuscular Hemoglobin 32.9 Mean Corpuscular Hemoglobin Concent 30.6 L Red Cell Distribution Width 13.6 Platelet Count 207 Mean Platelet Volume 10.8 H Neutrophils % 54.3 Lymphocytes % 24.9 Monocytes % 13.6 H Eosinophils % 6.5 Basophils % 0.5 Nucleated Red Blood Cells % 0.0 Neutrophils # 2.4 Lymphocytes # 1.1 Monocytes # 0.6 Eosinophils # 0.3 Basophils # 0.0 Nucleated Red Blood Cells # 0.0 Sodium Level 141 Potassium Level 4.9 Chloride Level 100 Carbon Dioxide Level 29 Anion Gap 17 H Blood Urea Nitrogen 64 H Creatinine 6.70 H Glucose Level 134 Calcium Level 7.5 L Triglycerides Level 102 Cholesterol Level 120 LDL Cholesterol, Calculated 48 HDL Cholesterol 52 Cholesterol/HDL Ratio 2.3 Bedside Glucose 163 Medications Medications Current Medications Lorazepam (Ativan) 0.5 mg Q6H PRN IV ANXIETY Last administered on 01/21/17 21 :24; Admin Dose 0.5 MG; Start 01/13/17 at 18:30 Ondansetron HCl (Zofran Inj) 4 mg Q6H PRN IV NAUSEA AND/OR VOMITING Last administered on 01/17/17 20:45; Admin Dose 4 MG; Start 01/13/17 at 18:30 Nitroglycerin (Nitroglycerin (Sl Tab) 0.4 Mg) 1 tab Q5M PRN SL CHEST PAIN; Start 01/13/17 at 18:30 Acetaminophen (Tylenol Tab) 650 mg Q6H PRN PO PAIN LEVEL 1-3 OR FEVER Last administered on 01/21/17 21:30; Admin Dose 650 MG; Start 01/13/17 at 18:30 Morphine Sulfate (morphine) 2 mg Q4H PRN IV PAIN LEVEL 7-10 Last administered on 01/22/17 02:51; Admin Dose 2 MG; Start 01/13/17 at 18:30 Famotidine (Pepcid) 10 mg HS PO Last administered on 01/21/17 21:23; Admin Dose 10 MG; Start 01/13/17 at 21:00 Heparin Sodium (Porcine) (Heparin (5000 Units/0.5 ml)) 5,000 unit Q12 SC Last administered on 01/21/17 21:21; Admin Dose 5,000 UNIT; Start 01/13/17 at 21: 00 Amlodipine Besylate (Norvasc) 10 mg DAILY PO Last administered on 01/21/17 08 :26; Admin Dose 10 MG; Start 01/14/17 at 09:00 Aspirin (Halfprin) 81 mg DAILY PO Last administered on 01/21/17 08:27; Admin Dose 81 MG; Start 01/14/17 at 09:00 Atorvastatin Calcium (Lipitor) 40 mg QHS PO Last administered on 01/21/17 21: 23; Admin Dose 40 MG; Start 01/13/17 at 21:00 Clonidine (Catapres) 0.2 mg TID PRN PO FOR SBP >160; Start 01/13/17 at 19:00 Clopidogrel Bisulfate (plaVIX) 75 mg DAILY PO Last administered on 01/21/17 08:44; Admin Dose 75 MG; Start 01/14/17 at 09:00 Folic Acid (Folic Acid) 1 mg DAILY PO Last administered on 01/21/17 08:27; Admin Dose 1 MG; Start 01/14/17 at 09:00 Gabapentin (Neurontin) 300 mg BID PO Last administered on 01/21/17 21:23; Admin Dose 300 MG; Start 01/13/17 at 21:00 Linagliptin (Tradjenta) 5 mg DAILY PO Last administered on 01/21/17 08:27; Admin Dose 5 MG; Start 01/14/17 at 09:00 Multivit/Ca Carb/ B Cmplx/FA/Prenat (Addie-Mikayla) 1 tab DAILY PO Last administered on 01/21/17 08:26; Admin Dose 1 TAB; Start 01/14/17 at 09:00 Polyethylene Glycol (Miralax) 17 gm BID PO Last administered on 01/21/17 21: 23; Admin Dose 17 GM; Start 01/13/17 at 21:00 Miscellaneous Information 1 ea NOTE XX ; Start 01/13/17 at 19:00 Glucose (Glutose) 15 gm Q15M PRN PO DECREASED GLUCOSE; Start 01/13/17 at 19:00 Glucose (Glutose) 22.5 gm Q15M PRN PO DECREASED GLUCOSE; Start 01/13/17 at 19: 00 Dextrose (D50w Syringe) 25 ml Q15M PRN IV DECREASED GLUCOSE; Start 01/13/17 at 19:00 Dextrose (D50w Syringe) 50 ml Q15M PRN IV DECREASED GLUCOSE; Start 01/13/17 at 19:00 Glucagon (Glucagen) 1 mg Q15M PRN IM DECREASED GLUCOSE; Start 01/13/17 at 19: 00 Glucose (Glutose) 15 gm Q15M PRN BUCCAL DECREASED GLUCOSE; Start 01/13/17 at 19:00 Morphine Sulfate (morphine) 2 mg Q4H PRN IV PAIN Last administered on 23:00; Admin Dose 2 MG; Start 01/14/17 at 01:00 Promethazine HCl/ Codeine (Phenergan/ Codeine) 5 ml Q4H PRN PO COUGH Last administered on 01/22/17 02:47; Admin Dose 5 ML; Start 01/14/17 at 12:30 Hydrocodone Bit/ Homatropine Methylb (Hycodan Liquid) 5 ml Q6 PRN PO COUGH Last administered on 01/20/17 01:23; Admin Dose 5 ML; Start 01/14/17 at 13:30 Diagnostic Test (Pha) (Accu-Chek) 1 ea 02 XX ; Start 01/15/17 at 02:00 Levofloxacin (Levaquin) 250 mg Q48H PO Last administered on 01/21/17 21:23; Admin Dose 250 MG; Start 01/15/17 at 20:00 Insulin Glargine (Lantus) 18 unit DAILY@20 SC Last administered on 01/21/17 21:22; Admin Dose 18 UNIT; Start 01/16/17 at 20:00 Carvedilol (Coreg) 6.25 mg BID PO Last administered on 01/21/17 21:24; Admin Dose 6.25 MG; Start 01/21/17 at 21:00 DARELL JAMES MD Jan 22, 2017 10:23
[2017-01-22] MEDS: CLOPIDOGREL 75 MG TAB PO SCH (10:42)
[2017-01-22] MEDS: FOLIC ACID 1 MG TAB PO SCH (10:43)
[2017-01-22] MEDS: GABAPENTIN 300 MG CAP PO SCH ×2 (10:43→20:24)
[2017-01-22] MEDS: ASPIRIN (EC) 81 MG TAB PO SCH (10:43)
[2017-01-22] MEDS: PANTOPRAZOLE (EC) 40 MG TAB PO SCH (10:43)
[2017-01-22] MEDS: MULTIVIT/CA CARB/B CMPLX/FA TAB PO SCH (10:43)
[2017-01-22] MEDS: LINAGLIPTIN 5 MG TABLET PO SCH (10:43)
[2017-01-22] MEDS: AMLODIPINE 10 MG TAB PO SCH (10:43)
[2017-01-22] MEDS: POLYETHYLENE GLYCOL 17 GM PACKET PO SCH ×2 (10:43→20:26)
[2017-01-22] MEDS: SEVELAMER CARBONATE 0.8 GM PKT PO SCH ×3 (10:44→17:47)
[2017-01-22] MEDS: HEPARIN 5,000 UNIT/0.5 ML VIAL SC SCH ×2 (10:50→20:30)
[2017-01-22] MEDS: INSULIN ASPART [NOVOLOG] 3 ML PEN SC SCH ×7 (10:51→20:26)
--- NOTE | 2017-01-22 13:32 | CONS ---
Date/Time of Note Date/Time of Note DATE: 01/22/17 TIME: 13:20 Assessment/Plan Assessment/Plan Chief Complaint/Hosp Course IMPRESSION 1. Atrial fibrillation, currently rate controlled, but not on systemic anticoagulation, but on aspirin and Plavix, status post PTCA to arteriovenous ( AV) fistula, with the patient having elevated CHADS-VASc score and therefore placing her at an increased risk for thromboembolic complications of atrial fibrillation and thus benefit from systemic anticoagulation if possible, and therefore, we will discuss with Vascular Surgery if reasonable to, once vascular surgery procedures are done, change the patient to Plavix with systemic anticoagulation with Eliquis and discontinue aspirin. 2. Hypertension, under reasonable control. 3. Respiratory distress, improved. 4. Congestive heart failure (CHF), question diastolic versus systolic and improve volume status. 5. End-stage renal disease on hemodialysis. 6. Diabetes mellitus. 7. Peripheral arterial disease, status post lower extremity bypass. 8. Dyslipidemia. 9. Anemia, severe. Recc: -Tele -serial ecg's -Continue asa/plavix/statin -continue norvasc/coreg -Aggresive HD for volume removal Problems: Consultation Date/Type/Reason Admit Date/Time Jan 13, 2017 at 18:04 Initial Consult Date 01/21/17 Type of Consultation: cardiology Reason for Consultation AF Referring Provider: KIRSTIN SPANN MD Exam/Review of Systems Vital Signs Vitals Vital Signs Date Time Temp Pulse Resp B/P Pulse Ox O2 Delivery O2 Flow Rate FiO2 01/22/17 12:20 77 01/22/17 11:27 99.1 21 184/72 90 01/22/17 08:30 Nasal Cannula 2.0 01/22/17 01:46 21 Intake and Output 01/21/17 01/21/17 01/22/17 15:00 23:00 07:00 Intake Total 400 ml 200 ml Balance 400 ml 200 ml Exam Review of Systems: CONSTITUTIONAL: No fevers, chills. PULMONARY: No sob CARDIOVASCULAR: intermittent chest pain GASTROINTESTINAL: No nausea/vomiting. GENITOURINARY: No hematuria/dysuria. MUSCULOSKELETAL: No myagias/arthalgias. PSYCHIATRIC: The patient denies depression. NEUROLOGIC: No weakness Constitutional: alert, oriented Psych: no complaints Head: normocephalic ENMT: mucosa pink and moist Neck: jvd, supple Respiratory: diminished breath sounds Cardiovascular: regular rate and rhythm Gastrointestinal: non-tender, soft Musculoskeletal: muscle tone (normal) Extremities: edema (none) Neurological: other (No focal deficits) Results Result Diagram: 01/22/17 0549 01/22/17 0549 Results 24 hrs Laboratory Tests Test 01/21/17 17:13 01/21/17 18:12 01/21/17 21:01 01/22/17 00:00 Bedside Glucose 203 159 Creatine Kinase 176 151 Creatine Kinase Index 0.9 0.9 Creatinine Kinase MB (Mass) 1.50 1.36 Troponin I < 0.012 < 0.012 Test 01/22/17 05:49 01/22/17 07:48 01/22/17 10:50 01/22/17 12:07 White Blood Count 4.3 L Red Blood Count 2.28 L Hemoglobin 7.5 L Hematocrit 24.5 L Mean Corpuscular Volume 107.5 H Mean Corpuscular Hemoglobin 32.9 Mean Corpuscular Hemoglobin Concent 30.6 L Red Cell Distribution Width 13.6 Platelet Count 207 Mean Platelet Volume 10.8 H Neutrophils % 54.3 Lymphocytes % 24.9 Monocytes % 13.6 H Eosinophils % 6.5 Basophils % 0.5 Nucleated Red Blood Cells % 0.0 Neutrophils # 2.4 Lymphocytes # 1.1 Monocytes # 0.6 Eosinophils # 0.3 Basophils # 0.0 Nucleated Red Blood Cells # 0.0 Sodium Level 141 Potassium Level 4.9 Chloride Level 100 Carbon Dioxide Level 29 Anion Gap 17 H Blood Urea Nitrogen 64 H Creatinine 6.70 H Glucose Level 134 Calcium Level 7.5 L Triglycerides Level 102 Cholesterol Level 120 LDL Cholesterol, Calculated 48 HDL Cholesterol 52 Cholesterol/HDL Ratio 2.3 Bedside Glucose 163 206 180 Medications Medications Current Medications Lorazepam (Ativan) 0.5 mg Q6H PRN IV ANXIETY Last administered on 01/21/17 21 :24; Admin Dose 0.5 MG; Start 01/13/17 at 18:30 Ondansetron HCl (Zofran Inj) 4 mg Q6H PRN IV NAUSEA AND/OR VOMITING Last administered on 01/17/17 20:45; Admin Dose 4 MG; Start 01/13/17 at 18:30 Nitroglycerin (Nitroglycerin (Sl Tab) 0.4 Mg) 1 tab Q5M PRN SL CHEST PAIN; Start 01/13/17 at 18:30 Acetaminophen (Tylenol Tab) 650 mg Q6H PRN PO PAIN LEVEL 1-3 OR FEVER Last administered on 01/21/17 21:30; Admin Dose 650 MG; Start 01/13/17 at 18:30 Morphine Sulfate (morphine) 2 mg Q4H PRN IV PAIN LEVEL 7-10 Last administered on 01/22/17 10:44; Admin Dose 2 MG; Start 01/13/17 at 18:30 Famotidine (Pepcid) 10 mg HS PO Last administered on 01/21/17 21:23; Admin Dose 10 MG; Start 01/13/17 at 21:00 Heparin Sodium (Porcine) (Heparin (5000 Units/0.5 ml)) 5,000 unit Q12 SC Last administered on 01/22/17 10:50; Admin Dose 5,000 UNIT; Start 01/13/17 at 21: 00 Amlodipine Besylate (Norvasc) 10 mg DAILY PO Last administered on 01/22/17 10 :43; Admin Dose 10 MG; Start 01/14/17 at 09:00 Aspirin (Halfprin) 81 mg DAILY PO Last administered on 01/22/17 10:43; Admin Dose 81 MG; Start 01/14/17 at 09:00 Atorvastatin Calcium (Lipitor) 40 mg QHS PO Last administered on 01/21/17 21: 23; Admin Dose 40 MG; Start 01/13/17 at 21:00 Clonidine (Catapres) 0.2 mg TID PRN PO FOR SBP >160; Start 01/13/17 at 19:00 Clopidogrel Bisulfate (plaVIX) 75 mg DAILY PO Last administered on 01/22/17 10:42; Admin Dose 75 MG; Start 01/14/17 at 09:00 Folic Acid (Folic Acid) 1 mg DAILY PO Last administered on 01/22/17 10:43; Admin Dose 1 MG; Start 01/14/17 at 09:00 Gabapentin (Neurontin) 300 mg BID PO Last administered on 01/22/17 10:43; Admin Dose 300 MG; Start 01/13/17 at 21:00 Linagliptin (Tradjenta) 5 mg DAILY PO Last administered on 01/22/17 10:43; Admin Dose 5 MG; Start 01/14/17 at 09:00 Multivit/Ca Carb/ B Cmplx/FA/Prenat (Addie-Mikayla) 1 tab DAILY PO Last administered on 01/22/17 10:43; Admin Dose 1 TAB; Start 01/14/17 at 09:00 Polyethylene Glycol (Miralax) 17 gm BID PO Last administered on 01/22/17 10: 43; Admin Dose 17 GM; Start 01/13/17 at 21:00 Miscellaneous Information 1 ea NOTE XX ; Start 01/13/17 at 19:00 Glucose (Glutose) 15 gm Q15M PRN PO DECREASED GLUCOSE; Start 01/13/17 at 19:00 Glucose (Glutose) 22.5 gm Q15M PRN PO DECREASED GLUCOSE; Start 01/13/17 at 19: 00 Dextrose (D50w Syringe) 25 ml Q15M PRN IV DECREASED GLUCOSE; Start 01/13/17 at 19:00 Dextrose (D50w Syringe) 50 ml Q15M PRN IV DECREASED GLUCOSE; Start 01/13/17 at 19:00 Glucagon (Glucagen) 1 mg Q15M PRN IM DECREASED GLUCOSE; Start 01/13/17 at 19: 00 Glucose (Glutose) 15 gm Q15M PRN BUCCAL DECREASED GLUCOSE; Start 01/13/17 at 19:00 Morphine Sulfate (morphine) 2 mg Q4H PRN IV PAIN Last administered on 23:00; Admin Dose 2 MG; Start 01/14/17 at 01:00 Promethazine HCl/ Codeine (Phenergan/ Codeine) 5 ml Q4H PRN PO COUGH Last administered on 01/22/17 02:47; Admin Dose 5 ML; Start 01/14/17 at 12:30 Hydrocodone Bit/ Homatropine Methylb (Hycodan Liquid) 5 ml Q6 PRN PO COUGH Last administered on 01/20/17 01:23; Admin Dose 5 ML; Start 01/14/17 at 13:30 Diagnostic Test (Pha) (Accu-Chek) 1 ea 02 XX ; Start 01/15/17 at 02:00 Levofloxacin (Levaquin) 250 mg Q48H PO Last administered on 01/21/17 21:23; Admin Dose 250 MG; Start 01/15/17 at 20:00 Insulin Glargine (Lantus) 18 unit DAILY@20 SC Last administered on 01/21/17 21:22; Admin Dose 18 UNIT; Start 01/16/17 at 20:00 Carvedilol (Coreg) 6.25 mg BID PO Last administered on 01/22/17 10:43; Admin Dose 6.25 MG; Start 01/21/17 at 21:00 GERTRUDIS GUILLERMO Jan 22, 2017 13:31
--- NOTE | 2017-01-22 14:23 | PN ---
Date/Time of Note Date/Time of Note DATE: 01/22/17 TIME: 14:22 Assessment/Plan Lines/Catheters IV [facility] Type [facility] Saline Lock Urinary Cath still in place: No Assessment/Plan Assessment/Plan -Atrial fibrillation, continue heparin. Dr. William is following in cardiology consultation. -Acute respiratory failure secondary to pulmonary edema, resolving. -Hemodialysis dependent end-stage renal disease, Dr. Garcia is following in nephrology consultation, continue hemodialysis. -Status post fistulogram, status post left upper extremity anastomosis angioplasty by Dr. Ruano on 01/19. -E. coli UTI, continue Levaquin. -Diabetes mellitus type 2, hemoglobin A1c 6.5, continue Tradjenta Lantus and NovoLog -HTN -Severe PVD, with multiple vascular intervention including a left lower extremity bypass. -S/p orthopedic procedures to RUE with metal prosthetic after bone Fx -Poor medical compliance Further recommendations based on clinical course. Plan of care is discussed with Dr. Cordero Subjective 24 Hr Interval Summary Respiratory: no complaints Cardiovascular: no complaints Gastrointestinal: no complaints Genitourinary: no complaints Musculoskeletal: no complaints Exam/Review of Systems Vital Signs Vitals Vital Signs Date Time Temp Pulse Resp B/P Pulse Ox O2 Delivery O2 Flow Rate FiO2 01/22/17 12:20 77 01/22/17 11:27 99.1 21 184/72 90 01/22/17 08:30 Nasal Cannula 2.0 01/22/17 01:46 21 Intake and Output 01/21/17 01/21/17 01/22/17 15:00 23:00 07:00 Intake Total 400 ml 200 ml Balance 400 ml 200 ml Exam Constitutional: alert, oriented Psych: nl mood/affect Respiratory: diminished breath sounds, normal air movement Cardiovascular: other Gastrointestinal: non-tender, soft Results Result Diagram: 01/22/17 0549 01/22/17 0549 Results 24 hrs Laboratory Tests Test 01/21/17 17:13 01/21/17 18:12 01/21/17 21:01 01/22/17 00:00 Bedside Glucose 203 159 Creatine Kinase 176 151 Creatine Kinase Index 0.9 0.9 Creatinine Kinase MB (Mass) 1.50 1.36 Troponin I < 0.012 < 0.012 Test 01/22/17 05:49 01/22/17 07:48 01/22/17 10:50 01/22/17 12:07 White Blood Count 4.3 L Red Blood Count 2.28 L Hemoglobin 7.5 L Hematocrit 24.5 L Mean Corpuscular Volume 107.5 H Mean Corpuscular Hemoglobin 32.9 Mean Corpuscular Hemoglobin Concent 30.6 L Red Cell Distribution Width 13.6 Platelet Count 207 Mean Platelet Volume 10.8 H Neutrophils % 54.3 Lymphocytes % 24.9 Monocytes % 13.6 H Eosinophils % 6.5 Basophils % 0.5 Nucleated Red Blood Cells % 0.0 Neutrophils # 2.4 Lymphocytes # 1.1 Monocytes # 0.6 Eosinophils # 0.3 Basophils # 0.0 Nucleated Red Blood Cells # 0.0 Sodium Level 141 Potassium Level 4.9 Chloride Level 100 Carbon Dioxide Level 29 Anion Gap 17 H Blood Urea Nitrogen 64 H Creatinine 6.70 H Glucose Level 134 Calcium Level 7.5 L Triglycerides Level 102 Cholesterol Level 120 LDL Cholesterol, Calculated 48 HDL Cholesterol 52 Cholesterol/HDL Ratio 2.3 Bedside Glucose 163 206 180 Medications Medications Current Medications Lorazepam (Ativan) 0.5 mg Q6H PRN IV ANXIETY Last administered on 01/21/17 21 :24; Admin Dose 0.5 MG; Start 01/13/17 at 18:30 Ondansetron HCl (Zofran Inj) 4 mg Q6H PRN IV NAUSEA AND/OR VOMITING Last administered on 01/17/17 20:45; Admin Dose 4 MG; Start 01/13/17 at 18:30 Nitroglycerin (Nitroglycerin (Sl Tab) 0.4 Mg) 1 tab Q5M PRN SL CHEST PAIN; Start 01/13/17 at 18:30 Acetaminophen (Tylenol Tab) 650 mg Q6H PRN PO PAIN LEVEL 1-3 OR FEVER Last administered on 01/21/17 21:30; Admin Dose 650 MG; Start 01/13/17 at 18:30 Morphine Sulfate (morphine) 2 mg Q4H PRN IV PAIN LEVEL 7-10 Last administered on 01/22/17 10:44; Admin Dose 2 MG; Start 01/13/17 at 18:30 Famotidine (Pepcid) 10 mg HS PO Last administered on 01/21/17 21:23; Admin Dose 10 MG; Start 01/13/17 at 21:00 Heparin Sodium (Porcine) (Heparin (5000 Units/0.5 ml)) 5,000 unit Q12 SC Last administered on 01/22/17 10:50; Admin Dose 5,000 UNIT; Start 01/13/17 at 21: 00 Amlodipine Besylate (Norvasc) 10 mg DAILY PO Last administered on 01/22/17 10 :43; Admin Dose 10 MG; Start 01/14/17 at 09:00 Aspirin (Halfprin) 81 mg DAILY PO Last administered on 01/22/17 10:43; Admin Dose 81 MG; Start 01/14/17 at 09:00 Atorvastatin Calcium (Lipitor) 40 mg QHS PO Last administered on 01/21/17 21: 23; Admin Dose 40 MG; Start 01/13/17 at 21:00 Clonidine (Catapres) 0.2 mg TID PRN PO FOR SBP >160; Start 01/13/17 at 19:00 Clopidogrel Bisulfate (plaVIX) 75 mg DAILY PO Last administered on 01/22/17 10:42; Admin Dose 75 MG; Start 01/14/17 at 09:00 Folic Acid (Folic Acid) 1 mg DAILY PO Last administered on 01/22/17 10:43; Admin Dose 1 MG; Start 01/14/17 at 09:00 Gabapentin (Neurontin) 300 mg BID PO Last administered on 01/22/17 10:43; Admin Dose 300 MG; Start 01/13/17 at 21:00 Linagliptin (Tradjenta) 5 mg DAILY PO Last administered on 01/22/17 10:43; Admin Dose 5 MG; Start 01/14/17 at 09:00 Multivit/Ca Carb/ B Cmplx/FA/Prenat (Addie-Mikayla) 1 tab DAILY PO Last administered on 01/22/17 10:43; Admin Dose 1 TAB; Start 01/14/17 at 09:00 Polyethylene Glycol (Miralax) 17 gm BID PO Last administered on 01/22/17 10: 43; Admin Dose 17 GM; Start 01/13/17 at 21:00 Miscellaneous Information 1 ea NOTE XX ; Start 01/13/17 at 19:00 Glucose (Glutose) 15 gm Q15M PRN PO DECREASED GLUCOSE; Start 01/13/17 at 19:00 Glucose (Glutose) 22.5 gm Q15M PRN PO DECREASED GLUCOSE; Start 01/13/17 at 19: 00 Dextrose (D50w Syringe) 25 ml Q15M PRN IV DECREASED GLUCOSE; Start 01/13/17 at 19:00 Dextrose (D50w Syringe) 50 ml Q15M PRN IV DECREASED GLUCOSE; Start 01/13/17 at 19:00 Glucagon (Glucagen) 1 mg Q15M PRN IM DECREASED GLUCOSE; Start 01/13/17 at 19: 00 Glucose (Glutose) 15 gm Q15M PRN BUCCAL DECREASED GLUCOSE; Start 01/13/17 at 19:00 Morphine Sulfate (morphine) 2 mg Q4H PRN IV PAIN Last administered on 23:00; Admin Dose 2 MG; Start 01/14/17 at 01:00 Promethazine HCl/ Codeine (Phenergan/ Codeine) 5 ml Q4H PRN PO COUGH Last administered on 01/22/17 02:47; Admin Dose 5 ML; Start 01/14/17 at 12:30 Hydrocodone Bit/ Homatropine Methylb (Hycodan Liquid) 5 ml Q6 PRN PO COUGH Last administered on 01/20/17 01:23; Admin Dose 5 ML; Start 01/14/17 at 13:30 Diagnostic Test (Pha) (Accu-Chek) 1 ea 02 XX ; Start 01/15/17 at 02:00 Levofloxacin (Levaquin) 250 mg Q48H PO Last administered on 01/21/17 21:23; Admin Dose 250 MG; Start 01/15/17 at 20:00 Insulin Glargine (Lantus) 18 unit DAILY@20 SC Last administered on 01/21/17 21:22; Admin Dose 18 UNIT; Start 01/16/17 at 20:00 Carvedilol (Coreg) 6.25 mg BID PO Last administered on 01/22/17 10:43; Admin Dose 6.25 MG; Start 01/21/17 at 21:00 VIOLET RUDOLPH Jan 22, 2017 14:23
[2017-01-22] MEDS: LORAZEPAM 2 MG INJ IV PRN ×2 (14:42→20:45)
--- NOTE | 2017-01-22 18:20 | RADRPT ---
Echocardiogram Report Patient Name: RINA CAREY Gender: Female Date: 1960 Study Date: 22-Jan-2017 [facility]: [facility] Location: [address] Ref. Physician: GERTRUDIS GUILLERMO Quality: Adequate Procedures: Transthoracic echocardiogram with complete 2D, M-Mode, and doppler examination. Indications: Congestive Heart Failure. 2D/M Mode Doppler Measurement Value Normal Ranges Measurement Value Normal Ranges LVIDd 2D 5.3 3.5 - 5.6 cm AV Peak Oswald 1.5 m/sec LVIDs 2D 3.9 2.1 - 4.1 cm AV Peak PG 9.0 mmHg FS 2D 26.3 % LVOT Peak Oswald 0.9 m/sec LVPWd 2D 1.5 0.6 - 1.1 cm LVOT Peak PG 3.0 mmHg IVSd 2D 1.5 0.6 - 1.1 cm MV E Peak Oswald 1.3 m/sec IVS/LVPW 2D 1.0 MV A Peak Oswald 0.7 m/sec AoR Diam 2D 3.1 2.0 - 3.7 cm MV E/A 1.7 LA/Ao 2D 1 0 - 1 MV Decel Time 201 msec EDV 2D 147.0 cm3 MV E/A 1.7 ESV 2D 58.9 cm3 TR Peak Oswald 2.9 m/sec LA Dimen 2D 4.6 2.3 - 4.0 cm TR Peak PG 34.0 mmHg RVSP 42.0 mmHg Findings Left Ventricle: Lower limits of normal systolic function. Normal left ventricular cavity size. Moderate concentric left ventricular hypertrophy. Ejection fraction is visually estimated at 50 %. Abnormal Diastolic Function. Right Ventricle: Normal right ventricular size. Normal right ventricular systolic function. Left Atrium: There is moderate enlargement of left atrium. Right Atrium: The right atrium is normal in size. Mitral Valve: Mild mitral leaflet calcification. Mild mitral annular calcification. Trace mitral regurgitation. Aortic Valve: No significant aortic stenosis or insufficiency. Aortic cusps appear mildly calcified. Tricuspid Valve: Normal appearance of the tricuspid valve. Estimated peak PA systolic pressure 42 mmHg. There is mild tricuspid regurgitation. Pulmonic Valve: Normal pulmonic valve appearance. There is trace pulmonic regurgitation. Pericardium: Normal pericardium with no significant pericardial effusion. Aorta: Normal aortic root. IVC: Dilated IVC with respiratory collapse consistent with elevated right atrial pressure. Conclusions 1.Lower limits of normal systolic function. Normal left ventricular cavity size. Moderate concentric left ventricular hypertrophy. Ejection fraction is visually estimated at 50 %. Abnormal Diastolic Function. 2.There is moderate enlargement of left atrium. 3.Mild mitral leaflet calcification. Mild mitral annular calcification. Trace mitral regurgitation. 4.Normal appearance of the tricuspid valve. Estimated peak PA systolic pressure 42 mmHg. There is mild tricuspid regurgitation. 5.Normal pulmonic valve appearance. There is trace pulmonic regurgitation. Electronically Signed By: Gertrudis Guillermo 22-Jan-2017 18:19:53 -0700 Patient Name: RINA CAREY Study Date: 22-Jan-2017 [id number]
--- NOTE | 2017-01-22 18:31 | RADRPT ---
Vent Rate: 69 bpm RR Interval: 0 msec LA Interval: 0 msec QRS Duration: 100 msec QT Interval: 436 msec QTC Interval: 467 msec P-R-T [place]: 0 - -16 - 67 degrees Atrial fibrillation Minimal voltage criteria for LVH, may be normal variant Septal infarct , age undetermined Abnormal ECG Electronically Signed By: John William [id number]
--- NOTE | 2017-01-22 18:32 | RADRPT ---
Vent Rate: 69 bpm RR Interval: 0 msec [place] Interval: 178 msec QRS Duration: 94 msec QT Interval: 436 msec QTC Interval: 467 msec P-R-T [place]: 54 - -9 - 71 degrees Normal sinus rhythm Prolonged QT Abnormal ECG Electronically Signed By: John William [id number]
[2017-01-22] MEDS: ATORVASTATIN 40 MG TAB PO SCH (20:24)
[2017-01-22] MEDS: FAMOTIDINE 20 MG TAB PO SCH (20:25)
[2017-01-22] MEDS: INSULIN GLARGINE [LANtus] 3 ML PEN SC SCH (20:29)
[2017-01-23] VITALS (13 sets, daily range): BP systolic 110–156; BP diastolic 58–71; PULSE 65–77; RESP 18–20
[2017-01-23] MEDS: LEVALBUTEROL (NEB) 0.63 MG/3 ML AMP HHN SCH ×4 (01:42→19:34)
[2017-01-23] MEDS: HYDROCODONE/HOMATROPINE 5ML CUP PO PRN (01:59)
[2017-01-23] MEDS: morphine 2 MG INJ IV PRN ×4 (01:59→20:51)
[2017-01-23] MEDS: ACCU-CHEK XX SCH (02:00)
[2017-01-23] MEDS: LORAZEPAM 2 MG INJ IV PRN ×3 (02:42→22:00)
[2017-01-23 06:15] LABS: BASOPHILS % 0.5 % (0.0-2.0); EOSINOPHILS # 0.3 10^3/ul (0.0-0.5); EOSINOPHILS % 7.2 % (0.0-7.0); HEMATOCRIT 26.7 % (37.0-47.0); HEMOGLOBIN 8.3 g/dl (12.0-16.0); LYMPHOCYTES # 1.1 10^3/ul (0.8-2.9); LYMPHOCYTES % 25.2 % (15.0-51.0); MEAN CORPUSCULAR HEMOGLOBIN 32.5 pg (29.0-33.0); MEAN CORPUSCULAR HGB CONC 31.1 g/dl (32.0-37.0); MEAN CORPUSCULAR VOLUME 104.7 fl (82.0-101.0); MONOCYTE # 0.6 10^3/ul (0.3-0.9); MONOCYTES % 13.3 % (0.0-11.0); NEUTROPHIL # 2.3 10^3/ul (1.6-7.5); NEUTROPHILS % 53.3 % (39.0-77.0); PLATELET COUNT 220 10^3/UL (140-415); RED BLOOD COUNT 2.55 10^6/ul (4.20-5.40); RED CELL DISTRIBUTION WIDTH 14.6 % (11.5-14.5); WHITE BLOOD COUNT 4.3 10^3/ul (4.8-10.8)
[2017-01-23 07:13] LABS: CALCIUM 8.5 mg/dl (8.4-10.2); CREATININE 5.37 mg/dl (0.44-1.00); POTASSIUM 4.2 mmol/L (3.5-5.1)
--- NOTE | 2017-01-23 07:25 | HPN ---
Date/Time of Note Date/Time of Note DATE: 01/23/17 TIME: 07:24 Interval H&P Admission Note Pt. seen H&P reviewed: No system changes SHELBY MACDONALD MD Jan 23, 2017 07:24
--- NOTE | 2017-01-23 07:26 | SIPON ---
Date/Time of Note Date/Time of Note DATE: 01/23/17 TIME: 07:25 Operative Report Preoperative Diagnosis ESRD Postoperative Diagnosis SAME Operation/Procedure Performed LUE FISTULOGRAM COIL EMBOLIZATION Surgeon see signature line elementary assistant principal NONE Anesthesia: moderate sedation Estimated blood loss: minimal Transfusion Required none Specimen NONE Grafts/Implants none Complications none SHELBY MACDONALD MD Jan 23, 2017 07:26
[2017-01-23] MEDS ORDERED: MIDAZOLAM 1 MG/ML 2 ML INJ ONE (07:28)
[2017-01-23] MEDS ORDERED: LIDOCAINE 1% (MDV) 20 ML INJ ONE (07:28)
[2017-01-23] MEDS ORDERED: FENTAnyl 50 MCG/ML VIAL ONE (07:28)
[2017-01-23] MEDS ORDERED: HEPARIN 1000 UNITS/NS (A-LINE) 1,000 ML ONE (07:28)
[2017-01-23] MEDS ORDERED: IODIXANOL LOCM 100 ML BTL ONE (07:29)
[2017-01-23] MEDS: GABAPENTIN 300 MG CAP PO SCH ×2 (08:57→20:35)
[2017-01-23] MEDS: SEVELAMER CARBONATE 0.8 GM PKT PO SCH ×3 (08:57→17:45)
[2017-01-23] MEDS: ASPIRIN (EC) 81 MG TAB PO SCH (08:57)
[2017-01-23] MEDS: LINAGLIPTIN 5 MG TABLET PO SCH (08:57)
[2017-01-23] MEDS: FOLIC ACID 1 MG TAB PO SCH (08:57)
[2017-01-23] MEDS: CLOPIDOGREL 75 MG TAB PO SCH (08:57)
[2017-01-23] MEDS: MULTIVIT/CA CARB/B CMPLX/FA TAB PO SCH (08:57)
[2017-01-23] MEDS: PANTOPRAZOLE (EC) 40 MG TAB PO SCH (08:57)
[2017-01-23] MEDS: POLYETHYLENE GLYCOL 17 GM PACKET PO SCH ×2 (08:58→21:04)
[2017-01-23] MEDS: AMLODIPINE 10 MG TAB PO SCH (09:00)
[2017-01-23] MEDS: INSULIN ASPART [NOVOLOG] 3 ML PEN SC SCH ×7 (09:03→20:34)
[2017-01-23] MEDS: HEPARIN 5,000 UNIT/0.5 ML VIAL SC SCH ×2 (09:05→20:37)
--- NOTE | 2017-01-23 13:24 | CONS ---
Date/Time of Note Date/Time of Note DATE: 01/23/17 TIME: 13:19 Assessment/Plan Assessment/Plan Chief Complaint/Hosp Course IMPRESSION 1. Atrial fibrillation, currently rate controlled, but not on systemic anticoagulation, but on aspirin and Plavix, status post PTCA to arteriovenous ( AV) fistula, with the patient having elevated CHADS-VASc score and therefore placing her at an increased risk for thromboembolic complications of atrial fibrillation and thus benefit from systemic anticoagulation if possible, and therefore, we will discuss with Vascular Surgery if reasonable to, once vascular surgery procedures are done, change the patient to Plavix with systemic anticoagulation with Eliquis and discontinue aspirin-Now in SR 2. Hypertension, under reasonable control. 3. Respiratory distress, improved. 4. Congestive heart failure (CHF), question diastolic versus systolic and improve volume status. 5. End-stage renal disease on hemodialysis. 6. Diabetes mellitus. 7. Peripheral arterial disease, status post lower extremity bypass. 8. Dyslipidemia. 9. Anemia, severe. Recc: -Tele -serial ecg's -Continue asa/plavix/statin -continue norvasc/coreg -Aggresive HD for volume removal Problems: Consultation Date/Type/Reason Admit Date/Time Jan 13, 2017 at 18:04 Initial Consult Date 01/21/17 Type of Consultation: cardiology Reason for Consultation AF Referring Provider: KIRSTIN SPANN MD Exam/Review of Systems Vital Signs Vitals Vital Signs Date Time Temp Pulse Resp B/P Pulse Ox O2 Delivery O2 Flow Rate FiO2 01/23/17 12:06 72 01/23/17 11:41 98.0 18 156/68 96 01/23/17 10:35 3.0 01/23/17 08:30 Nasal Cannula 01/22/17 01:46 21 Intake and Output 01/22/17 01/22/17 01/23/17 15:00 23:00 07:00 Intake Total 500 ml 700 ml 500 ml Output Total 4000 ml Balance -3500 ml 700 ml 500 ml Exam Review of Systems: CONSTITUTIONAL: No fevers, chills. PULMONARY: No sob CARDIOVASCULAR: No chest pain/palpitations GASTROINTESTINAL: No nausea/vomiting. GENITOURINARY: No hematuria/dysuria. MUSCULOSKELETAL: No myagias/arthalgias. PSYCHIATRIC: The patient denies depression. NEUROLOGIC: No weakness Constitutional: alert Psych: no complaints Head: normocephalic ENMT: mucosa pink and moist Neck: jvd, supple Respiratory: diminished breath sounds Cardiovascular: regular rate and rhythm Gastrointestinal: non-tender, soft Musculoskeletal: muscle tone (normal) Extremities: edema (noone) Neurological: other (focal deficits) Results Result Diagram: 01/23/17 0518 01/23/17 0518 Results 24 hrs Laboratory Tests Test 01/22/17 17:44 01/22/17 20:23 01/23/17 05:18 01/23/17 05:45 Bedside Glucose 136 163 White Blood Count 4.3 L Red Blood Count 2.55 L Hemoglobin 8.3 L Hematocrit 26.7 L Mean Corpuscular Volume 104.7 H Mean Corpuscular Hemoglobin 32.5 Mean Corpuscular Hemoglobin Concent 31.1 L Red Cell Distribution Width 14.6 H Platelet Count 220 Mean Platelet Volume 11.0 H Neutrophils % 53.3 Lymphocytes % 25.2 Monocytes % 13.3 H Eosinophils % 7.2 H Basophils % 0.5 Nucleated Red Blood Cells % 0.0 Neutrophils # 2.3 Lymphocytes # 1.1 Monocytes # 0.6 Eosinophils # 0.3 Basophils # 0.0 Nucleated Red Blood Cells # 0.0 Sodium Level 141 Potassium Level 4.2 Chloride Level 102 Carbon Dioxide Level 30 Anion Gap 13 Blood Urea Nitrogen 54 H Creatinine 5.37 H Glucose Level 155 Calcium Level 8.5 Lab Scanned Report BLOOD TRANSFUSION Test 01/23/17 08:55 01/23/17 11:51 Bedside Glucose 149 138 Medications Medications Current Medications Lorazepam (Ativan) 0.5 mg Q6H PRN IV ANXIETY Last administered on 01/23/17 02 :42; Admin Dose 0.5 MG; Start 01/13/17 at 18:30 Ondansetron HCl (Zofran Inj) 4 mg Q6H PRN IV NAUSEA AND/OR VOMITING Last administered on 01/17/17 20:45; Admin Dose 4 MG; Start 01/13/17 at 18:30 Nitroglycerin (Nitroglycerin (Sl Tab) 0.4 Mg) 1 tab Q5M PRN SL CHEST PAIN; Start 01/13/17 at 18:30 Acetaminophen (Tylenol Tab) 650 mg Q6H PRN PO PAIN LEVEL 1-3 OR FEVER Last administered on 01/21/17 21:30; Admin Dose 650 MG; Start 01/13/17 at 18:30 Morphine Sulfate (morphine) 2 mg Q4H PRN IV PAIN LEVEL 7-10 Last administered on 01/23/17 09:01; Admin Dose 2 MG; Start 01/13/17 at 18:30 Famotidine (Pepcid) 10 mg HS PO Last administered on 01/22/17 20:25; Admin Dose 10 MG; Start 01/13/17 at 21:00 Heparin Sodium (Porcine) (Heparin (5000 Units/0.5 ml)) 5,000 unit Q12 SC Last administered on 01/23/17 09:05; Admin Dose 5,000 UNIT; Start 01/13/17 at 21: 00 Amlodipine Besylate (Norvasc) 10 mg DAILY PO Last administered on 01/23/17 09 :00; Admin Dose 10 MG; Start 01/14/17 at 09:00 Aspirin (Halfprin) 81 mg DAILY PO Last administered on 01/23/17 08:57; Admin Dose 81 MG; Start 01/14/17 at 09:00 Atorvastatin Calcium (Lipitor) 40 mg QHS PO Last administered on 01/22/17 20: 24; Admin Dose 40 MG; Start 01/13/17 at 21:00 Clonidine (Catapres) 0.2 mg TID PRN PO FOR SBP >160 Last administered on 16:43; Admin Dose 0.2 MG; Start 01/13/17 at 19:00 Clopidogrel Bisulfate (plaVIX) 75 mg DAILY PO Last administered on 01/23/17 08:57; Admin Dose 75 MG; Start 01/14/17 at 09:00 Folic Acid (Folic Acid) 1 mg DAILY PO Last administered on 01/23/17 08:57; Admin Dose 1 MG; Start 01/14/17 at 09:00 Gabapentin (Neurontin) 300 mg BID PO Last administered on 01/23/17 08:57; Admin Dose 300 MG; Start 01/13/17 at 21:00 Linagliptin (Tradjenta) 5 mg DAILY PO Last administered on 01/23/17 08:57; Admin Dose 5 MG; Start 01/14/17 at 09:00 Multivit/Ca Carb/ B Cmplx/FA/Prenat (Addie-Mikayla) 1 tab DAILY PO Last administered on 01/23/17 08:57; Admin Dose 1 TAB; Start 01/14/17 at 09:00 Polyethylene Glycol (Miralax) 17 gm BID PO Last administered on 01/23/17 08: 58; Admin Dose 17 GM; Start 01/13/17 at 21:00 Miscellaneous Information 1 ea NOTE XX ; Start 01/13/17 at 19:00 Glucose (Glutose) 15 gm Q15M PRN PO DECREASED GLUCOSE; Start 01/13/17 at 19:00 Glucose (Glutose) 22.5 gm Q15M PRN PO DECREASED GLUCOSE; Start 01/13/17 at 19: 00 Dextrose (D50w Syringe) 25 ml Q15M PRN IV DECREASED GLUCOSE; Start 01/13/17 at 19:00 Dextrose (D50w Syringe) 50 ml Q15M PRN IV DECREASED GLUCOSE; Start 01/13/17 at 19:00 Glucagon (Glucagen) 1 mg Q15M PRN IM DECREASED GLUCOSE; Start 01/13/17 at 19: 00 Glucose (Glutose) 15 gm Q15M PRN BUCCAL DECREASED GLUCOSE; Start 01/13/17 at 19:00 Morphine Sulfate (morphine) 2 mg Q4H PRN IV PAIN Last administered on 23:00; Admin Dose 2 MG; Start 01/14/17 at 01:00 Promethazine HCl/ Codeine (Phenergan/ Codeine) 5 ml Q4H PRN PO COUGH Last administered on 01/22/17 22:26; Admin Dose 5 ML; Start 01/14/17 at 12:30 Hydrocodone Bit/ Homatropine Methylb (Hycodan Liquid) 5 ml Q6 PRN PO COUGH Last administered on 01/23/17 01:59; Admin Dose 5 ML; Start 01/14/17 at 13:30 Diagnostic Test (Pha) (Accu-Chek) 1 ea 02 XX ; Start 01/15/17 at 02:00 Levofloxacin (Levaquin) 250 mg Q48H PO Last administered on 01/21/17 21:23; Admin Dose 250 MG; Start 01/15/17 at 20:00 Insulin Glargine (Lantus) 18 unit DAILY@20 SC Last administered on 01/22/17 20:29; Admin Dose 18 UNIT; Start 01/16/17 at 20:00 Carvedilol (Coreg) 6.25 mg BID PO Last administered on 01/23/17t 09:01; Admin Dose 6.25 MG; Start 01/21/17 at 21:00 GERTRUDIS GUILLERMO Jan 23, 2017 13:24
--- NOTE | 2017-01-23 14:00 | CONS ---
Date/Time of Note Date/Time of Note DATE: 01/23/17 TIME: 13:58 Assessment/Plan Assessment/Plan Chief Complaint/Hosp Course 56 y/o with 1. Fluid overload, uncontrolled hypertension.BETTER 2. End-stage renal disease. 3. Hypertension. 4. Diabetes mellitus. 5. Hyperkalemia. 6. Atherosclerotic heart disease. 7. Peripheral vascular disease. 8. History of dyslipidemia. 9 History of pneumonia. 10. History of leg cellulitis. 11. History of wound dehiscence. 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 Plan - s/p venuplasty and then s/p coil embolisation on 01/22/17 - HD tmw - c/w Coreg/amlodipine - GI and Dvt prophylaxsis - Labs am Problems: Consultation Date/Type/Reason Admit Date/Time Jan 13, 2017 at 18:04 Type of Consultation: Renal Referring Provider: KIRSTIN SPANN MD 24 HR Interval Summary Free Text/Dictation s/p Coil embolisation yesterday Exam/Review of Systems Vital Signs Vitals Vital Signs Date Time Temp Pulse Resp B/P Pulse Ox O2 Delivery O2 Flow Rate FiO2 01/23/17 12:06 72 01/23/17 11:41 98.0 18 156/68 96 01/23/17 10:35 3.0 01/23/17 08:30 Nasal Cannula 01/22/17 01:46 21 Intake and Output 01/22/17 01/22/17 01/23/17 15:00 23:00 07:00 Intake Total 500 ml 700 ml 500 ml Output Total 4000 ml Balance -3500 ml 700 ml 500 ml Exam Gen: Awake and alert Respiratory: clear to auscultation Cardiovascular: regular rate and rhythm Gastrointestinal: bowel sounds (+), soft Extremities: edema (++) Left ue fistula Results Result Diagram: 01/23/1751701/23/17517 Results 24 hrs Laboratory Tests Test 01/22/17 17:44 01/22/17 20:23 01/23/17 05:18 01/23/17 05:45 Bedside Glucose 136 163 White Blood Count 4.3 L Red Blood Count 2.55 L Hemoglobin 8.3 L Hematocrit 26.7 L Mean Corpuscular Volume 104.7 H Mean Corpuscular Hemoglobin 32.5 Mean Corpuscular Hemoglobin Concent 31.1 L Red Cell Distribution Width 14.6 H Platelet Count 220 Mean Platelet Volume 11.0 H Neutrophils % 53.3 Lymphocytes % 25.2 Monocytes % 13.3 H Eosinophils % 7.2 H Basophils % 0.5 Nucleated Red Blood Cells % 0.0 Neutrophils # 2.3 Lymphocytes # 1.1 Monocytes # 0.6 Eosinophils # 0.3 Basophils # 0.0 Nucleated Red Blood Cells # 0.0 Sodium Level 141 Potassium Level 4.2 Chloride Level 102 Carbon Dioxide Level 30 Anion Gap 13 Blood Urea Nitrogen 54 H Creatinine 5.37 H Glucose Level 155 Calcium Level 8.5 Lab Scanned Report BLOOD TRANSFUSION Test 01/23/17 08:55 01/23/17 11:51 Bedside Glucose 149 138 Medications Medications Current Medications Lorazepam (Ativan) 0.5 mg Q6H PRN IV ANXIETY Last administered on 01/23/17 02 :42; Admin Dose 0.5 MG; Start 01/13/17 at 18:30 Ondansetron HCl (Zofran Inj) 4 mg Q6H PRN IV NAUSEA AND/OR VOMITING Last administered on 01/17/17 20:45; Admin Dose 4 MG; Start 01/13/17 at 18:30 Nitroglycerin (Nitroglycerin (Sl Tab) 0.4 Mg) 1 tab Q5M PRN SL CHEST PAIN; Start 01/13/17 at 18:30 Acetaminophen (Tylenol Tab) 650 mg Q6H PRN PO PAIN LEVEL 1-3 OR FEVER Last administered on 01/21/17 21:30; Admin Dose 650 MG; Start 01/13/17 at 18:30 Morphine Sulfate (morphine) 2 mg Q4H PRN IV PAIN LEVEL 7-10 Last administered on 01/23/17 09:01; Admin Dose 2 MG; Start 01/13/17 at 18:30 Famotidine (Pepcid) 10 mg HS PO Last administered on 01/22/17 20:25; Admin Dose 10 MG; Start 01/13/17 at 21:00 Heparin Sodium (Porcine) (Heparin (5000 Units/0.5 ml)) 5,000 unit Q12 SC Last administered on 01/23/17 09:05; Admin Dose 5,000 UNIT; Start 01/13/17 at 21: 00 Amlodipine Besylate (Norvasc) 10 mg DAILY PO Last administered on 01/23/17 09 :00; Admin Dose 10 MG; Start 01/14/17 at 09:00 Aspirin (Halfprin) 81 mg DAILY PO Last administered on 01/23/17 08:57; Admin Dose 81 MG; Start 01/14/17 at 09:00 Atorvastatin Calcium (Lipitor) 40 mg QHS PO Last administered on 01/22/17 20: 24; Admin Dose 40 MG; Start 01/13/17 at 21:00 Clonidine (Catapres) 0.2 mg TID PRN PO FOR SBP >160 Last administered on 16:43; Admin Dose 0.2 MG; Start 01/13/17 at 19:00 Clopidogrel Bisulfate (plaVIX) 75 mg DAILY PO Last administered on 01/23/17 08:57; Admin Dose 75 MG; Start 01/14/17 at 09:00 Folic Acid (Folic Acid) 1 mg DAILY PO Last administered on 01/23/17 08:57; Admin Dose 1 MG; Start 01/14/17 at 09:00 Gabapentin (Neurontin) 300 mg BID PO Last administered on 01/23/17 08:57; Admin Dose 300 MG; Start 01/13/17 at 21:00 Linagliptin (Tradjenta) 5 mg DAILY PO Last administered on 01/23/17 08:57; Admin Dose 5 MG; Start 01/14/17 at 09:00 Multivit/Ca Carb/ B Cmplx/FA/Prenat (Addie-Mikayla) 1 tab DAILY PO Last administered on 01/23/17 08:57; Admin Dose 1 TAB; Start 01/14/17 at 09:00 Polyethylene Glycol (Miralax) 17 gm BID PO Last administered on 01/23/17 08: 58; Admin Dose 17 GM; Start 01/13/17 at 21:00 Miscellaneous Information 1 ea NOTE XX ; Start 01/13/17 at 19:00 Glucose (Glutose) 15 gm Q15M PRN PO DECREASED GLUCOSE; Start 01/13/17 at 19:00 Glucose (Glutose) 22.5 gm Q15M PRN PO DECREASED GLUCOSE; Start 01/13/17 at 19: 00 Dextrose (D50w Syringe) 25 ml Q15M PRN IV DECREASED GLUCOSE; Start 01/13/17 at 19:00 Dextrose (D50w Syringe) 50 ml Q15M PRN IV DECREASED GLUCOSE; Start 01/13/17 at 19:00 Glucagon (Glucagen) 1 mg Q15M PRN IM DECREASED GLUCOSE; Start 01/13/17 at 19: 00 Glucose (Glutose) 15 gm Q15M PRN BUCCAL DECREASED GLUCOSE; Start 01/13/17 at 19:00 Morphine Sulfate (morphine) 2 mg Q4H PRN IV PAIN Last administered on 23:00; Admin Dose 2 MG; Start 01/14/17 at 01:00 Promethazine HCl/ Codeine (Phenergan/ Codeine) 5 ml Q4H PRN PO COUGH Last administered on 01/22/17 22:26; Admin Dose 5 ML; Start 01/14/17 at 12:30 Hydrocodone Bit/ Homatropine Methylb (Hycodan Liquid) 5 ml Q6 PRN PO COUGH Last administered on 01/23/17 01:59; Admin Dose 5 ML; Start 01/14/17 at 13:30 Diagnostic Test (Pha) (Accu-Chek) 1 ea 02 XX ; Start 01/15/17 at 02:00 Levofloxacin (Levaquin) 250 mg Q48H PO Last administered on 01/21/17 21:23; Admin Dose 250 MG; Start 01/15/17 at 20:00 Insulin Glargine (Lantus) 18 unit DAILY@20 SC Last administered on 01/22/17 20:29; Admin Dose 18 UNIT; Start 01/16/17 at 20:00 Carvedilol (Coreg) 6.25 mg BID PO Last administered on 01/23/17 09:01; Admin Dose 6.25 MG; Start 01/21/17 at 21:00 DARELL JAMES MD Jan 23, 2017 14:00
--- NOTE | 2017-01-23 15:15 | PN ---
Date/Time of Note Date/Time of Note DATE: 01/23/17 TIME: 15:12 Assessment/Plan VTE Prophylaxis VTE Prophylaxis Intervention: SCD's Lines/Catheters IV [facility] Urinary Cath still in place: No Assessment/Plan Chief Complaint/Hosp Course Patient is status post left upper extremity fistulogram and intravascular intervention today in the morning, patient complains of dry cough and occasional shortness of breath, remains hemodynamically stable. Patient is currently in sinus rhythm. Assessment/Plan -Atrial fibrillation, currently in sinus rhythm, continue heparin. Dr. William is following in cardiology consultation. -Acute respiratory failure secondary to pulmonary edema, resolving. -Hemodialysis dependent end-stage renal disease, Dr. Garcia is following in nephrology consultation, continue hemodialysis. -Status post fistulogram, status post left upper extremity anastomosis angioplasty by Dr. Ruano on 01/19. Status post left upper extremity fistulogram and coil embolization on 01/23. -E. coli UTI, continue Levaquin. -Diabetes mellitus type 2, hemoglobin A1c 6.5, continue Tradjenta Lantus and NovoLog -HTN -Severe PVD, with multiple vascular intervention including a left lower extremity bypass. -S/p orthopedic procedures to RUE with metal prosthetic after bone Fx -Poor medical compliance Further recommendations based on clinical course. Plan of care is discussed with Dr. Cordero Problems: Exam/Review of Systems Vital Signs Vitals Vital Signs Date Time Temp Pulse Resp B/P Pulse Ox O2 Delivery O2 Flow Rate FiO2 01/23/17 14:33 70 20 99 Nasal Cannula 3.0 32 01/23/17 11:41 98.0 156/68 Intake and Output 01/22/17 01/22/17 01/23/17 15:00 23:00 07:00 Intake Total 500 ml 700 ml 500 ml Output Total 4000 ml Balance -3500 ml 700 ml 500 ml Results Result Diagram: 01/23/1751701/23/17517 Results 24 hrs Laboratory Tests Test 01/22/17 17:44 01/22/17 20:23 01/23/17 05:18 01/23/17 05:45 Bedside Glucose 136 163 White Blood Count 4.3 L Red Blood Count 2.55 L Hemoglobin 8.3 L Hematocrit 26.7 L Mean Corpuscular Volume 104.7 H Mean Corpuscular Hemoglobin 32.5 Mean Corpuscular Hemoglobin Concent 31.1 L Red Cell Distribution Width 14.6 H Platelet Count 220 Mean Platelet Volume 11.0 H Neutrophils % 53.3 Lymphocytes % 25.2 Monocytes % 13.3 H Eosinophils % 7.2 H Basophils % 0.5 Nucleated Red Blood Cells % 0.0 Neutrophils # 2.3 Lymphocytes # 1.1 Monocytes # 0.6 Eosinophils # 0.3 Basophils # 0.0 Nucleated Red Blood Cells # 0.0 Sodium Level 141 Potassium Level 4.2 Chloride Level 102 Carbon Dioxide Level 30 Anion Gap 13 Blood Urea Nitrogen 54 H Creatinine 5.37 H Glucose Level 155 Calcium Level 8.5 Lab Scanned Report BLOOD TRANSFUSION Test 01/23/17 08:55 01/23/17 11:51 Bedside Glucose 149 138 Medications Medications Current Medications Lorazepam (Ativan) 0.5 mg Q6H PRN IV ANXIETY Last administered on 01/23/17 14 :18; Admin Dose 0.5 MG; Start 01/13/17 at 18:30 Ondansetron HCl (Zofran Inj) 4 mg Q6H PRN IV NAUSEA AND/OR VOMITING Last administered on 01/17/17 20:45; Admin Dose 4 MG; Start 01/13/17 at 18:30 Nitroglycerin (Nitroglycerin (Sl Tab) 0.4 Mg) 1 tab Q5M PRN SL CHEST PAIN; Start 01/13/17 at 18:30 Acetaminophen (Tylenol Tab) 650 mg Q6H PRN PO PAIN LEVEL 1-3 OR FEVER Last administered on 01/21/17 21:30; Admin Dose 650 MG; Start 01/13/17 at 18:30 Morphine Sulfate (morphine) 2 mg Q4H PRN IV PAIN LEVEL 7-10 Last administered on 01/23/17 09:01; Admin Dose 2 MG; Start 01/13/17 at 18:30 Famotidine (Pepcid) 10 mg HS PO Last administered on 01/22/17 20:25; Admin Dose 10 MG; Start 01/13/17 at 21:00 Heparin Sodium (Porcine) (Heparin (5000 Units/0.5 ml)) 5,000 unit Q12 SC Last administered on 01/23/17 09:05; Admin Dose 5,000 UNIT; Start 01/13/17 at 21: 00 Amlodipine Besylate (Norvasc) 10 mg DAILY PO Last administered on 01/23/17 09 :00; Admin Dose 10 MG; Start 01/14/17 at 09:00 Aspirin (Halfprin) 81 mg DAILY PO Last administered on 01/23/17 08:57; Admin Dose 81 MG; Start 01/14/17 at 09:00 Atorvastatin Calcium (Lipitor) 40 mg QHS PO Last administered on 01/22/17 20: 24; Admin Dose 40 MG; Start 01/13/17 at 21:00 Clonidine (Catapres) 0.2 mg TID PRN PO FOR SBP >160 Last administered on 16:43; Admin Dose 0.2 MG; Start 01/13/17 at 19:00 Clopidogrel Bisulfate (plaVIX) 75 mg DAILY PO Last administered on 01/23/17 08:57; Admin Dose 75 MG; Start 01/14/17 at 09:00 Folic Acid (Folic Acid) 1 mg DAILY PO Last administered on 01/23/17 08:57; Admin Dose 1 MG; Start 01/14/17 at 09:00 Gabapentin (Neurontin) 300 mg BID PO Last administered on 01/23/17 08:57; Admin Dose 300 MG; Start 01/13/17 at 21:00 Linagliptin (Tradjenta) 5 mg DAILY PO Last administered on 01/23/17 08:57; Admin Dose 5 MG; Start 01/14/17 at 09:00 Multivit/Ca Carb/ B Cmplx/FA/Prenat (Addie-Mikayla) 1 tab DAILY PO Last administered on 01/23/17 08:57; Admin Dose 1 TAB; Start 01/14/17 at 09:00 Polyethylene Glycol (Miralax) 17 gm BID PO Last administered on 01/23/17 08: 58; Admin Dose 17 GM; Start 01/13/17 at 21:00 Miscellaneous Information 1 ea NOTE XX ; Start 01/13/17 at 19:00 Glucose (Glutose) 15 gm Q15M PRN PO DECREASED GLUCOSE; Start 01/13/17 at 19:00 Glucose (Glutose) 22.5 gm Q15M PRN PO DECREASED GLUCOSE; Start 01/13/17 at 19: 00 Dextrose (D50w Syringe) 25 ml Q15M PRN IV DECREASED GLUCOSE; Start 01/13/17 at 19:00 Dextrose (D50w Syringe) 50 ml Q15M PRN IV DECREASED GLUCOSE; Start 01/13/17 at 19:00 Glucagon (Glucagen) 1 mg Q15M PRN IM DECREASED GLUCOSE; Start 01/13/17 at 19: 00 Glucose (Glutose) 15 gm Q15M PRN BUCCAL DECREASED GLUCOSE; Start 01/13/17 at 19:00 Morphine Sulfate (morphine) 2 mg Q4H PRN IV PAIN Last administered on 23:00; Admin Dose 2 MG; Start 01/14/17 at 01:00 Promethazine HCl/ Codeine (Phenergan/ Codeine) 5 ml Q4H PRN PO COUGH Last administered on 01/22/17 22:26; Admin Dose 5 ML; Start 01/14/17 at 12:30 Hydrocodone Bit/ Homatropine Methylb (Hycodan Liquid) 5 ml Q6 PRN PO COUGH Last administered on 01/23/17 01:59; Admin Dose 5 ML; Start 01/14/17 at 13:30 Diagnostic Test (Pha) (Accu-Chek) 1 ea 02 XX ; Start 01/15/17 at 02:00 Levofloxacin (Levaquin) 250 mg Q48H PO Last administered on 01/21/17 21:23; Admin Dose 250 MG; Start 01/15/17 at 20:00 Insulin Glargine (Lantus) 18 unit DAILY@20 SC Last administered on 01/22/17 20:29; Admin Dose 18 UNIT; Start 01/16/17 at 20:00 Carvedilol (Coreg) 6.25 mg BID PO Last administered on 01/23/17 09:01; Admin Dose 6.25 MG; Start 01/21/17 at 21:00 ANTHONY DUPREE Jan 23, 2017 15:15
--- NOTE | 2017-01-23 19:14 | OPR ---
DATE OF OPERATION: 01/23/2017 SURGEON: Adiel Ruano MD PREOPERATIVE DIAGNOSES: Left upper extremity malfunctioning fistula and end-stage renal disease. ANESTHESIA: Local with sedation. ESTIMATED BLOOD LOSS: Minimal. COMPLICATIONS: None. HEPARIN: None. CONTRAST: As recorded. ACCESS: Left upper extremity 6-Serbian sheath. CLOSURE: Manual compression and 3-0 nylon suture. INDICATIONS: This is a 56-year-old female who presented with malfunctioning left upper extremity fi stula in which she was not able to complete her dialysis session a few days ago. Upon ultrasound fi ndings, it was identified the patient having significant stenosis at the anastomotic site. Therefor e, the patient underwent a fistulogram with venoplasty of that segment on 01/19/2017, in which she t olerated that aspect well. It was also identified the patient having multiple tributaries that were diverting venous flow to the deep system which could have explained why the fistula had some issues with malfunctioning. Therefore, risks, benefits and alternatives were discussed with the patient i nvolving a venogram, venoplasty and possible stenting. Risks included, but not limited to, bleeding , thrombosis, embolization, myocardial infarction, , stroke, device malfunction, infection, nep hrotoxicity and coil embolization complications. The patient agreed to proceed. PROCEDURES: 1. Ultrasound-guided access of the left upper extremity fistula. 2. Coil embolization of the tributary branch #1. 3. Coil embolization of the tributary branch #2 using Interlock [employer] coils. 4. Moderate sedation. FINDINGS: Patent fistula with complete occlusion of the 2 tributaries, post-coil embolization. DESCRIPTION OF PROCEDURE: The patient was brought into the angio suite and positioned in supine pos ition on the fluoroscopic table. Sedation was administered without any complications. Left upper e xtremity was then shaved, prepped and draped in usual standard sterile fashion. Timeout and appropr iate site was marked and confirmed. Local anesthesia was then infiltrated in the region of the left upper extremity fistula. The fistula was then cannulated with a micro access needle under ultrasound guidance, and a guidewir e was advanced into the cephalic vein under fluoroscopic guidance. The guidewire was then advanced towards the axillary vein under fluoroscopic guidance. The needle was then removed, and a microcath eter was then placed. Once this tract had been dilated with the microcatheter, a 6-Serbian short she ath was then placed in the left upper extremity fistula. At this point, using a Kumpe catheter and a Glidewire, the first tributary was cannulated as the second order selection. At this point, using an Interlock [employer] coil, coil embolization of the first tributary was performed success fully, and upon completion angiogram, it was identified the patient having no further flow through t hat segment. Subsequently, we selected the second tributary with a second order selection and also perform coil embolization using a [employer] Interlock coil. Upon completion angiogram, that segment also had complete resolution and occlusion. At this point, the patient had improved bruit and thrill through her fistula. All instrument, sponge and needle counts were correct x2, and the 6 -Serbian sheath was removed without any issues. A 3-0 nylon suture was applied to the puncture site and manual compression was held. Dictated By: ADIEL REYNOSO/MAURICIO Conf#: [id number] DID#: [id number]
[2017-01-23] MEDS: ATORVASTATIN 40 MG TAB PO SCH (20:35)
[2017-01-23] MEDS: LEVOFLOXACIN 250 MG TAB PO SCH (20:35)
[2017-01-23] MEDS: FAMOTIDINE 20 MG TAB PO SCH (20:35)
[2017-01-23] MEDS: INSULIN GLARGINE [LANtus] 3 ML PEN SC SCH (20:37)
[2017-01-23] MEDS: PROMETHAZINE/CODEINE 5ML CUP PO PRN (22:00)
[2017-01-23] MEDS: ACETAMINOPHEN 325 MG TAB PO PRN (22:13)
[2017-01-24] VITALS (17 sets, daily range): BP systolic 105–148; BP diastolic 48–67; PULSE 63–80; RESP 16–20
[2017-01-24] MEDS: morphine 2 MG INJ IV PRN ×6 (00:22→21:28)
[2017-01-24] MEDS: LEVALBUTEROL (NEB) 0.63 MG/3 ML AMP HHN SCH ×5 (01:55→19:27)
[2017-01-24] MEDS: ACCU-CHEK XX SCH ×2 (04:00→23:42)
[2017-01-24] MEDS: LORAZEPAM 2 MG INJ IV PRN ×3 (04:21→18:23)
[2017-01-24] MEDS: PROMETHAZINE/CODEINE 5ML CUP PO PRN (06:52)
[2017-01-24 07:05] LABS: BASOPHILS % 0.2 % (0.0-2.0); EOSINOPHILS # 0.3 10^3/ul (0.0-0.5); EOSINOPHILS % 6.2 % (0.0-7.0); HEMATOCRIT 26.8 % (37.0-47.0); LYMPHOCYTES # 1.2 10^3/ul (0.8-2.9); LYMPHOCYTES % 26.5 % (15.0-51.0); MEAN CORPUSCULAR HEMOGLOBIN 31.6 pg (29.0-33.0); MEAN CORPUSCULAR HGB CONC 29.9 g/dl (32.0-37.0); MEAN CORPUSCULAR VOLUME 105.9 fl (82.0-101.0); MEAN PLATELET VOLUME 10.8 fl (7.4-10.4); MONOCYTE # 0.6 10^3/ul (0.3-0.9); MONOCYTES % 12.2 % (0.0-11.0); NEUTROPHIL # 2.5 10^3/ul (1.6-7.5); NUCLEATED RED BLOOD CELLS% 0.4 /100WBC (0.0-0.0); PLATELET COUNT 211 10^3/UL (140-415); RED BLOOD COUNT 2.53 10^6/ul (4.20-5.40); RED CELL DISTRIBUTION WIDTH 14.5 % (11.5-14.5); WHITE BLOOD COUNT 4.7 10^3/ul (4.8-10.8)
[2017-01-24 07:58] LABS: CALCIUM 7.8 mg/dl (8.4-10.2); CREATININE 6.76 mg/dl (0.44-1.00); POTASSIUM 4.9 mmol/L (3.5-5.1)
[2017-01-24] MEDS: SEVELAMER CARBONATE 0.8 GM PKT PO SCH ×3 (08:12→16:50)
[2017-01-24] MEDS: HYDROCODONE/HOMATROPINE 5ML CUP PO PRN ×2 (08:12→20:11)
[2017-01-24] MEDS: POLYETHYLENE GLYCOL 17 GM PACKET PO SCH ×2 (08:13→20:23)
[2017-01-24] MEDS: CLOPIDOGREL 75 MG TAB PO SCH (08:13)
[2017-01-24] MEDS: MULTIVIT/CA CARB/B CMPLX/FA TAB PO SCH (08:13)
[2017-01-24] MEDS: ASPIRIN (EC) 81 MG TAB PO SCH (08:13)
[2017-01-24] MEDS: GABAPENTIN 300 MG CAP PO SCH ×2 (08:13→20:15)
[2017-01-24] MEDS: PANTOPRAZOLE (EC) 40 MG TAB PO SCH (08:13)
[2017-01-24] MEDS: FOLIC ACID 1 MG TAB PO SCH (08:13)
[2017-01-24] MEDS: LINAGLIPTIN 5 MG TABLET PO SCH (08:13)
[2017-01-24] MEDS: AMLODIPINE 10 MG TAB PO SCH (08:14)
[2017-01-24] MEDS: HEPARIN 5,000 UNIT/0.5 ML VIAL SC SCH ×2 (08:17→20:21)
[2017-01-24] MEDS: INSULIN ASPART [NOVOLOG] 3 ML PEN SC SCH ×7 (08:18→20:24)
--- NOTE | 2017-01-24 14:20 | PN ---
Date/Time of Note Date/Time of Note DATE: 01/24/17 TIME: 14:07 Assessment/Plan VTE Prophylaxis VTE Prophylaxis Intervention: other Lines/Catheters IV [facility] Type (from [facility]): Saline Lock Urinary Cath still in place: No Assessment/Plan Assessment/Plan -Atrial fibrillation, currently in sinus rhythm, continue heparin. Dr. William is following in cardiology consultation. -Acute respiratory failure secondary to pulmonary edema, resolving. -Hemodialysis dependent end-stage renal disease, Dr. Garcia is following in nephrology consultation, continue hemodialysis. -Status post fistulogram, status post left upper extremity anastomosis angioplasty by Dr. Ruano on 01/19. -Status post left upper extremity fistulogram and coil embolization on 01/23. - Anemia- monitor CBC -E. coli UTI, continue Levaquin. -Diabetes mellitus type 2, hemoglobin A1c 6.5, continue Tradjenta Lantus and NovoLog -HTN -Severe PVD, with multiple vascular intervention including a left lower extremity bypass. -S/p orthopedic procedures to RUE with metal prosthetic after bone Fx -Poor medical compliance Further recommendations based on clinical course. Plan of care is discussed with Dr. Cordero Subjective 24 Hr Interval Summary Free Text/Dictation afib with SR, denies any chest pain, ambulating in [address] way, afebrile Respiratory: no complaints Cardiovascular: no complaints Gastrointestinal: no complaints Genitourinary: no complaints Musculoskeletal: no complaints Skin: no complaints Exam/Review of Systems Vital Signs Vitals Vital Signs Date Time Temp Pulse Resp B/P Pulse Ox O2 Delivery O2 Flow Rate FiO2 01/24/17 13:30 64 01/24/17 12:00 98.2 16 123/62 96 01/24/17 11:01 Room Air 01/24/17 04:10 3.0 01/23/17 14:33 32 Intake and Output 01/23/17 01/23/17 01/24/17 15:00 23:00 07:00 Intake Total 650 ml 500 ml Balance 650 ml 500 ml Exam Constitutional: alert, oriented Respiratory: clear to auscultation, diminished breath sounds Cardiovascular: nl pulses Gastrointestinal: non-tender, soft Musculoskeletal: nl extremities to inspection Extremities: normal pulses Neurological: nl mental status, nl speech Results Result Diagram: 01/24/17 0634 01/24/17 0634 Results 24 hrs Laboratory Tests Test 01/23/17:40 01/23/17 20:32 01/24/17 04:03 01/24/17 06:34 Bedside Glucose 149 134 195 White Blood Count 4.7 L Red Blood Count 2.53 L Hemoglobin 8.0 L Hematocrit 26.8 L Mean Corpuscular Volume 105.9 H Mean Corpuscular Hemoglobin 31.6 Mean Corpuscular Hemoglobin Concent 29.9 L Red Cell Distribution Width 14.5 Platelet Count 211 Mean Platelet Volume 10.8 H Neutrophils % 54.0 Lymphocytes % 26.5 Monocytes % 12.2 H Eosinophils % 6.2 Basophils % 0.2 Nucleated Red Blood Cells % 0.4 H Neutrophils # 2.5 Lymphocytes # 1.2 Monocytes # 0.6 Eosinophils # 0.3 Basophils # 0.0 Nucleated Red Blood Cells # 0.0 Sodium Level 140 Potassium Level 4.9 Chloride Level 102 Carbon Dioxide Level 27 Anion Gap 16 Blood Urea Nitrogen 68 H Creatinine 6.76 H Glucose Level 171 Calcium Level 7.8 L Test 01/24/17 08:11 01/24/17 12:08 Bedside Glucose 180 128 Medications Medications Current Medications Lorazepam (Ativan) 0.5 mg Q6H PRN IV ANXIETY Last administered on 01/24/17 12 :10; Admin Dose 0.5 MG; Start 01/13/17 at 18:30 Ondansetron HCl (Zofran Inj) 4 mg Q6H PRN IV NAUSEA AND/OR VOMITING Last administered on 01/17/17 20:45; Admin Dose 4 MG; Start 01/13/17 at 18:30 Nitroglycerin (Nitroglycerin (Sl Tab) 0.4 Mg) 1 tab Q5M PRN SL CHEST PAIN; Start 01/13/17 at 18:30 Acetaminophen (Tylenol Tab) 650 mg Q6H PRN PO PAIN LEVEL 1-3 OR FEVER Last administered on 01/23/17 22:13; Admin Dose 650 MG; Start 01/13/17 at 18:30 Morphine Sulfate (morphine) 2 mg Q4H PRN IV PAIN LEVEL 7-10 Last administered on 01/24/17 12:11; Admin Dose 2 MG; Start 01/13/17 at 18:30 Famotidine (Pepcid) 10 mg HS PO Last administered on 01/23/17 20:35; Admin Dose 10 MG; Start 01/13/17 at 21:00 Heparin Sodium (Porcine) (Heparin (5000 Units/0.5 ml)) 5,000 unit Q12 SC Last administered on 01/24/17 08:17; Admin Dose 5,000 UNIT; Start 01/13/17 at 21: 00 Amlodipine Besylate (Norvasc) 10 mg DAILY PO Last administered on 01/24/17 08 :14; Admin Dose 10 MG; Start 01/14/17 at 09:00 Aspirin (Halfprin) 81 mg DAILY PO Last administered on 01/24/17 08:13; Admin Dose 81 MG; Start 01/14/17 at 09:00 Atorvastatin Calcium (Lipitor) 40 mg QHS PO Last administered on 01/23/17 20: 35; Admin Dose 40 MG; Start 01/13/17 at 21:00 Clonidine (Catapres) 0.2 mg TID PRN PO FOR SBP >160 Last administered on 16:43; Admin Dose 0.2 MG; Start 01/13/17 at 19:00 Clopidogrel Bisulfate (plaVIX) 75 mg DAILY PO Last administered on 01/24/17 08:13; Admin Dose 75 MG; Start 01/14/17 at 09:00 Folic Acid (Folic Acid) 1 mg DAILY PO Last administered on 01/24/17 08:13; Admin Dose 1 MG; Start 01/14/17 at 09:00 Gabapentin (Neurontin) 300 mg BID PO Last administered on 01/24/17 08:13; Admin Dose 300 MG; Start 01/13/17 at 21:00 Linagliptin (Tradjenta) 5 mg DAILY PO Last administered on 01/24/17 08:13; Admin Dose 5 MG; Start 01/14/17 at 09:00 Multivit/Ca Carb/ B Cmplx/FA/Prenat (Addie-Mikayla) 1 tab DAILY PO Last administered on 01/24/17 08:13; Admin Dose 1 TAB; Start 01/14/17 at 09:00 Polyethylene Glycol (Miralax) 17 gm BID PO Last administered on 01/24/17 08: 13; Admin Dose 17 GM; Start 01/13/17 at 21:00 Miscellaneous Information 1 ea NOTE XX ; Start 01/13/17 at 19:00 Glucose (Glutose) 15 gm Q15M PRN PO DECREASED GLUCOSE; Start 01/13/17 at 19:00 Glucose (Glutose) 22.5 gm Q15M PRN PO DECREASED GLUCOSE; Start 01/13/17 at 19: 00 Dextrose (D50w Syringe) 25 ml Q15M PRN IV DECREASED GLUCOSE; Start 01/13/17 at 19:00 Dextrose (D50w Syringe) 50 ml Q15M PRN IV DECREASED GLUCOSE; Start 01/13/17 at 19:00 Glucagon (Glucagen) 1 mg Q15M PRN IM DECREASED GLUCOSE; Start 01/13/17 at 19: 00 Glucose (Glutose) 15 gm Q15M PRN BUCCAL DECREASED GLUCOSE; Start 01/13/17 at 19:00 Morphine Sulfate (morphine) 2 mg Q4H PRN IV PAIN Last administered on 23:00; Admin Dose 2 MG; Start 01/14/17 at 01:00 Promethazine HCl/ Codeine (Phenergan/ Codeine) 5 ml Q4H PRN PO COUGH Last administered on 01/24/17 06:52; Admin Dose 5 ML; Start 01/14/17 at 12:30 Hydrocodone Bit/ Homatropine Methylb (Hycodan Liquid) 5 ml Q6 PRN PO COUGH Last administered on 01/24/17 08:12; Admin Dose 5 ML; Start 01/14/17 at 13:30 Diagnostic Test (Pha) (Accu-Chek) 1 ea 02 XX Last administered on 01/24/17 04 :00; Admin Dose 1 EA; Start 01/15/17 at 02:00 Levofloxacin (Levaquin) 250 mg Q48H PO Last administered on 01/23/17 20:35; Admin Dose 250 MG; Start 01/15/17 at 20:00 Insulin Glargine (Lantus) 18 unit DAILY@20 SC Last administered on 01/23/17 20:37; Admin Dose 18 UNIT; Start 01/16/17 at 20:00 Carvedilol (Coreg) 6.25 mg BID PO Last administered on 01/24/17 08:13; Admin Dose 6.25 MG; Start 01/21/17 at 21:00 VIOLET RUDOLPH Jan 24, 2017 14:17
--- NOTE | 2017-01-24 14:23 | PN ---
Date/Time of Note Date/Time of Note DATE: 01/24/17 TIME: 14:22 Assessment/Plan Lines/Catheters IV Catheter Type (from [facility]): Saline Lock Gale in Place (from [facility]): No Assessment/Plan Chief Complaint/Hosp Course -ESRD: S/P LUE fistulogram and venoplasty of the anastomosis and coil embolization of tributary -Follow up in 2 weeks -Optimize vascular status (BP meds, cholesterol, sugar control, diet and antiplatelets) -Discussed findings plan and management with the patient and she understands -Thank you for allowing us to partake in the care of your patient, please call with any questions Problems: Subjective 24 Hr Interval Summary Constitutional: BM, flatus, improved, no complaints Exam/Review of Systems Vital Signs Vitals Vital Signs Date Time Temp Pulse Resp B/P Pulse Ox O2 Delivery O2 Flow Rate FiO2 01/24/17 13:30 64 01/24/17 12:00 98.2 16 123/62 96 01/24/17 11:01 Room Air 01/24/17 04:10 3.0 01/23/17 14:33 32 Intake and Output 01/23/17 01/23/17 01/24/17 14:59 22:59 06:59 Intake Total 650 ml 500 ml Balance 650 ml 500 ml Exam Free Text/Dictation A&Ox3 CTAB S1S2 present soft NTND BS+ truncal obesity LUE: palpable brachial pulses, motor/sensory intact, fistula with bruit and thrill present Results Result Diagram: 01/24/17 0634 01/24/17 0634 SHELBY MACDONALD MD Jan 24, 2017 14:23
--- NOTE | 2017-01-24 14:50 | CONS ---
Date/Time of Note Date/Time of Note DATE: 01/24/17 TIME: 14:47 Assessment/Plan Assessment/Plan Chief Complaint/Hosp Course IMPRESSION 1. Atrial fibrillation, currently rate controlled, but not on systemic anticoagulation, but on aspirin and Plavix, status post PTCA to arteriovenous ( AV) fistula, with the patient having elevated CHADS-VASc score and therefore placing her at an increased risk for thromboembolic complications of atrial fibrillation and thus benefit from systemic anticoagulation if possible, and therefore, we will discuss with Vascular Surgery if reasonable to, once vascular surgery procedures are done, change the patient to Plavix with systemic anticoagulation with Eliquis and discontinue aspirin-Now in SR 2. Hypertension, under reasonable control. 3. Respiratory distress, improved. 4. Congestive heart failure (CHF), question diastolic versus systolic and improve volume status. 5. End-stage renal disease on hemodialysis. 6. Diabetes mellitus. 7. Peripheral arterial disease, status post lower extremity bypass. 8. Dyslipidemia. 9. Anemia, severe. Recc: -Tele -serial ecg's -Continue asa/plavix/statin -continue norvasc/coreg -Aggresive HD for volume removal Problems: Consultation Date/Type/Reason Admit Date/Time Jan 13, 2017 at 18:04 Initial Consult Date 01/21/17 Type of Consultation: cardiology Reason for Consultation AF Referring Provider: KIRSTIN SPANN MD Exam/Review of Systems Vital Signs Vitals Vital Signs Date Time Temp Pulse Resp B/P Pulse Ox O2 Delivery O2 Flow Rate FiO2 01/24/17 13:30 64 01/24/17 12:00 98.2 16 123/62 96 01/24/17 11:01 Room Air 01/24/17 04:10 3.0 01/23/17 14:33 32 Intake and Output 01/23/17 01/23/17 01/24/17 15:00 23:00 07:00 Intake Total 650 ml 500 ml Balance 650 ml 500 ml Exam Review of Systems: CONSTITUTIONAL: No fevers, chills. PULMONARY: moderate sob CARDIOVASCULAR: No chest pain/palpitations GASTROINTESTINAL: No nausea/vomiting. GENITOURINARY: No hematuria/dysuria. MUSCULOSKELETAL: No myagias/arthalgias. PSYCHIATRIC: The patient denies depression. NEUROLOGIC: generalizes weakness Constitutional: alert Psych: no complaints Head: normocephalic ENMT: mucosa pink and moist Neck: jvd (9 cm water), supple Respiratory: diminished breath sounds (at bases/B) Cardiovascular: regular rate and rhythm Gastrointestinal: non-tender, soft Musculoskeletal: muscle weakness (generalized) Extremities: pitting pedal edema (BIlateral) Neurological: other (No focal deficits) Results Result Diagram: 01/24/17 0634 01/24/17 0634 Results 24 hrs Laboratory Tests Test 01/23/17 17:40 01/23/17 20:32 01/24/17 04:03 01/24/17 06:34 Bedside Glucose 149 134 195 White Blood Count 4.7 L Red Blood Count 2.53 L Hemoglobin 8.0 L Hematocrit 26.8 L Mean Corpuscular Volume 105.9 H Mean Corpuscular Hemoglobin 31.6 Mean Corpuscular Hemoglobin Concent 29.9 L Red Cell Distribution Width 14.5 Platelet Count 211 Mean Platelet Volume 10.8 H Neutrophils % 54.0 Lymphocytes % 26.5 Monocytes % 12.2 H Eosinophils % 6.2 Basophils % 0.2 Nucleated Red Blood Cells % 0.4 H Neutrophils # 2.5 Lymphocytes # 1.2 Monocytes # 0.6 Eosinophils # 0.3 Basophils # 0.0 Nucleated Red Blood Cells # 0.0 Sodium Level 140 Potassium Level 4.9 Chloride Level 102 Carbon Dioxide Level 27 Anion Gap 16 Blood Urea Nitrogen 68 H Creatinine 6.76 H Glucose Level 171 Calcium Level 7.8 L Test 01/24/17 08:11 01/24/17 12:08 Bedside Glucose 180 128 Medications Medications Current Medications Lorazepam (Ativan) 0.5 mg Q6H PRN IV ANXIETY Last administered on 01/24/17 12 :10; Admin Dose 0.5 MG; Start 01/13/17 at 18:30 Ondansetron HCl (Zofran Inj) 4 mg Q6H PRN IV NAUSEA AND/OR VOMITING Last administered on 01/17/17 20:45; Admin Dose 4 MG; Start 01/13/17 at 18:30 Nitroglycerin (Nitroglycerin (Sl Tab) 0.4 Mg) 1 tab Q5M PRN SL CHEST PAIN; Start 01/13/17 at 18:30 Acetaminophen (Tylenol Tab) 650 mg Q6H PRN PO PAIN LEVEL 1-3 OR FEVER Last administered on 01/23/17 22:13; Admin Dose 650 MG; Start 01/13/17 at 18:30 Morphine Sulfate (morphine) 2 mg Q4H PRN IV PAIN LEVEL 7-10 Last administered on 01/24/17 12:11; Admin Dose 2 MG; Start 01/13/17 at 18:30 Famotidine (Pepcid) 10 mg HS PO Last administered on 01/23/17 20:35; Admin Dose 10 MG; Start 01/13/17 at 21:00 Heparin Sodium (Porcine) (Heparin (5000 Units/0.5 ml)) 5,000 unit Q12 SC Last administered on 01/24/17 08:17; Admin Dose 5,000 UNIT; Start 01/13/17 at 21: 00 Amlodipine Besylate (Norvasc) 10 mg DAILY PO Last administered on 01/24/17 08 :14; Admin Dose 10 MG; Start 01/14/17 at 09:00 Aspirin (Halfprin) 81 mg DAILY PO Last administered on 01/24/17 08:13; Admin Dose 81 MG; Start 01/14/17 at 09:00 Atorvastatin Calcium (Lipitor) 40 mg QHS PO Last administered on 01/23/17 20: 35; Admin Dose 40 MG; Start 01/13/17 at 21:00 Clonidine (Catapres) 0.2 mg TID PRN PO FOR SBP >160 Last administered on 16:43; Admin Dose 0.2 MG; Start 01/13/17 at 19:00 Clopidogrel Bisulfate (plaVIX) 75 mg DAILY PO Last administered on 01/24/17 08:13; Admin Dose 75 MG; Start 01/14/17 at 09:00 Folic Acid (Folic Acid) 1 mg DAILY PO Last administered on 01/24/17 08:13; Admin Dose 1 MG; Start 01/14/17 at 09:00 Gabapentin (Neurontin) 300 mg BID PO Last administered on 01/24/17 08:13; Admin Dose 300 MG; Start 01/13/17 at 21:00 Linagliptin (Tradjenta) 5 mg DAILY PO Last administered on 01/24/17 08:13; Admin Dose 5 MG; Start 01/14/17 at 09:00 Multivit/Ca Carb/ B Cmplx/FA/Prenat (Addie-Mikayla) 1 tab DAILY PO Last administered on 01/24/17 08:13; Admin Dose 1 TAB; Start 01/14/17 at 09:00 Polyethylene Glycol (Miralax) 17 gm BID PO Last administered on 01/24/17 08: 13; Admin Dose 17 GM; Start 01/13/17 at 21:00 Miscellaneous Information 1 ea NOTE XX ; Start 01/13/17 at 19:00 Glucose (Glutose) 15 gm Q15M PRN PO DECREASED GLUCOSE; Start 01/13/17 at 19:00 Glucose (Glutose) 22.5 gm Q15M PRN PO DECREASED GLUCOSE; Start 01/13/17 at 19: 00 Dextrose (D50w Syringe) 25 ml Q15M PRN IV DECREASED GLUCOSE; Start 01/13/17 at 19:00 Dextrose (D50w Syringe) 50 ml Q15M PRN IV DECREASED GLUCOSE; Start 01/13/17 at 19:00 Glucagon (Glucagen) 1 mg Q15M PRN IM DECREASED GLUCOSE; Start 01/13/17 at 19: 00 Glucose (Glutose) 15 gm Q15M PRN BUCCAL DECREASED GLUCOSE; Start 01/13/17 at 19:00 Morphine Sulfate (morphine) 2 mg Q4H PRN IV PAIN Last administered on 23:00; Admin Dose 2 MG; Start 01/14/17 at 01:00 Promethazine HCl/ Codeine (Phenergan/ Codeine) 5 ml Q4H PRN PO COUGH Last administered on 01/24/17 06:52; Admin Dose 5 ML; Start 01/14/17 at 12:30 Hydrocodone Bit/ Homatropine Methylb (Hycodan Liquid) 5 ml Q6 PRN PO COUGH Last administered on 01/24/17 08:12; Admin Dose 5 ML; Start 01/14/17 at 13:30 Diagnostic Test (Pha) (Accu-Chek) 1 ea 02 XX Last administered on 01/24/17 04 :00; Admin Dose 1 EA; Start 01/15/17 at 02:00 Levofloxacin (Levaquin) 250 mg Q48H PO Last administered on 01/23/17 20:35; Admin Dose 250 MG; Start 01/15/17 at 20:00 Insulin Glargine (Lantus) 18 unit DAILY@20 SC Last administered on 01/23/17 20:37; Admin Dose 18 UNIT; Start 01/16/17 at 20:00 Carvedilol (Coreg) 6.25 mg BID PO Last administered on 01/24/17 08:13; Admin Dose 6.25 MG; Start 01/21/17 at 21:00 GERTRUDIS GUILLERMO Jan 24, 2017 14:50
[2017-01-24] MEDS: ACETAMINOPHEN 325 MG TAB PO PRN (16:58)
--- NOTE | 2017-01-24 17:27 | CONS ---
Date/Time of Note Date/Time of Note DATE: 01/24/17 TIME: 17:25 Assessment/Plan Assessment/Plan Chief Complaint/Hosp Course 1. Fluid overload,BETTER 2. End-stage renal disease. 3. Hypertension. 4. Diabetes mellitus. 5. Hyperkalemia. 6. Atherosclerotic heart disease. 7. Peripheral vascular disease. 8. History of dyslipidemia. 9 History of pneumonia. 10. History of leg cellulitis. 11. History of wound dehiscence. 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 Problems: Additional Assessment/Plan 1. Optimization Kidney function 2. continue HD Consultation Date/Type/Reason Admit Date/Time Jan 13, 2017 at 18:04 Initial Consult Date Type of Consultation: nephrology Reason for Consultation Dr Garcia Referring Provider: KIRSTIN SPANN MD Exam/Review of Systems Vital Signs Vitals Vital Signs Date Time Temp Pulse Resp B/P Pulse Ox O2 Delivery O2 Flow Rate FiO2 01/24/17 17:10 60 20 Nasal Cannula 3.0 32 01/24/17 17:10 32 01/24/17 15:54 98.2 125/62 Intake and Output 01/23/17 01/23/17 01/24/17 15:00 23:00 07:00 Intake Total 650 ml 500 ml Balance 650 ml 500 ml Exam Constitutional: alert, oriented Psych: no complaints Head: normocephalic Respiratory: diminished breath sounds Cardiovascular: regular rate and rhythm Gastrointestinal: soft Musculoskeletal: muscle weakness, swelling Results Result Diagram: 01/24/17 0634 01/24/17 0634 Results 24 hrs Laboratory Tests Test 01/23/17 17:40 01/23/17 20:32 01/24/17 04:03 01/24/17 06:34 Bedside Glucose 149 134 195 White Blood Count 4.7 L Red Blood Count 2.53 L Hemoglobin 8.0 L Hematocrit 26.8 L Mean Corpuscular Volume 105.9 H Mean Corpuscular Hemoglobin 31.6 Mean Corpuscular Hemoglobin Concent 29.9 L Red Cell Distribution Width 14.5 Platelet Count 211 Mean Platelet Volume 10.8 H Neutrophils % 54.0 Lymphocytes % 26.5 Monocytes % 12.2 H Eosinophils % 6.2 Basophils % 0.2 Nucleated Red Blood Cells % 0.4 H Neutrophils # 2.5 Lymphocytes # 1.2 Monocytes # 0.6 Eosinophils # 0.3 Basophils # 0.0 Nucleated Red Blood Cells # 0.0 Sodium Level 140 Potassium Level 4.9 Chloride Level 102 Carbon Dioxide Level 27 Anion Gap 16 Blood Urea Nitrogen 68 H Creatinine 6.76 H Glucose Level 171 Calcium Level 7.8 L Test 01/24/17 08:11 01/24/17 12:08 01/24/17 16:52 Bedside Glucose 180 128 151 Medications Medications Current Medications Lorazepam (Ativan) 0.5 mg Q6H PRN IV ANXIETY Last administered on 01/24/17 12 :10; Admin Dose 0.5 MG; Start 01/13/17 at 18:30 Ondansetron HCl (Zofran Inj) 4 mg Q6H PRN IV NAUSEA AND/OR VOMITING Last administered on 01/17/17 20:45; Admin Dose 4 MG; Start 01/13/17 at 18:30 Nitroglycerin (Nitroglycerin (Sl Tab) 0.4 Mg) 1 tab Q5M PRN SL CHEST PAIN; Start 01/13/17 at 18:30 Acetaminophen (Tylenol Tab) 650 mg Q6H PRN PO PAIN LEVEL 1-3 OR FEVER Last administered on 01/24/17 16:58; Admin Dose 650 MG; Start 01/13/17 at 18:30 Morphine Sulfate (morphine) 2 mg Q4H PRN IV PAIN LEVEL 7-10 Last administered on 01/24/17 16:51; Admin Dose 2 MG; Start 01/13/17 at 18:30 Famotidine (Pepcid) 10 mg HS PO Last administered on 01/23/17 20:35; Admin Dose 10 MG; Start 01/13/17 at 21:00 Heparin Sodium (Porcine) (Heparin (5000 Units/0.5 ml)) 5,000 unit Q12 SC Last administered on 01/24/17 08:17; Admin Dose 5,000 UNIT; Start 01/13/17 at 21: 00 Amlodipine Besylate (Norvasc) 10 mg DAILY PO Last administered on 01/24/17 08 :14; Admin Dose 10 MG; Start 01/14/17 at 09:00 Aspirin (Halfprin) 81 mg DAILY PO Last administered on 01/24/17 08:13; Admin Dose 81 MG; Start 01/14/17 at 09:00 Atorvastatin Calcium (Lipitor) 40 mg QHS PO Last administered on 01/23/17 20: 35; Admin Dose 40 MG; Start 01/13/17 at 21:00 Clonidine (Catapres) 0.2 mg TID PRN PO FOR SBP >160 Last administered on 16:43; Admin Dose 0.2 MG; Start 01/13/17 at 19:00 Clopidogrel Bisulfate (plaVIX) 75 mg DAILY PO Last administered on 01/24/17 08:13; Admin Dose 75 MG; Start 01/14/17 at 09:00 Folic Acid (Folic Acid) 1 mg DAILY PO Last administered on 01/24/17 08:13; Admin Dose 1 MG; Start 01/14/17 at 09:00 Gabapentin (Neurontin) 300 mg BID PO Last administered on 01/24/17 08:13; Admin Dose 300 MG; Start 01/13/17 at 21:00 Linagliptin (Tradjenta) 5 mg DAILY PO Last administered on 01/24/17 08:13; Admin Dose 5 MG; Start 01/14/17 at 09:00 Multivit/Ca Carb/ B Cmplx/FA/Prenat (Addie-Mikayla) 1 tab DAILY PO Last administered on 01/24/17 08:13; Admin Dose 1 TAB; Start 01/14/17 at 09:00 Polyethylene Glycol (Miralax) 17 gm BID PO Last administered on 01/24/17 08: 13; Admin Dose 17 GM; Start 01/13/17 at 21:00 Miscellaneous Information 1 ea NOTE XX ; Start 01/13/17 at 19:00 Glucose (Glutose) 15 gm Q15M PRN PO DECREASED GLUCOSE; Start 01/13/17 at 19:00 Glucose (Glutose) 22.5 gm Q15M PRN PO DECREASED GLUCOSE; Start 01/13/17 at 19: 00 Dextrose (D50w Syringe) 25 ml Q15M PRN IV DECREASED GLUCOSE; Start 01/13/17 at 19:00 Dextrose (D50w Syringe) 50 ml Q15M PRN IV DECREASED GLUCOSE; Start 01/13/17 at 19:00 Glucagon (Glucagen) 1 mg Q15M PRN IM DECREASED GLUCOSE; Start 10/10/17 at 19: 00 Glucose (Glutose) 15 gm Q15M PRN BUCCAL DECREASED GLUCOSE; Start 01/13/17 at 19:00 Morphine Sulfate (morphine) 2 mg Q4H PRN IV PAIN Last administered on 23:00; Admin Dose 2 MG; Start 01/14/17 at 01:00 Promethazine HCl/ Codeine (Phenergan/ Codeine) 5 ml Q4H PRN PO COUGH Last administered on 01/24/17 06:52; Admin Dose 5 ML; Start 01/14/17 at 12:30 Hydrocodone Bit/ Homatropine Methylb (Hycodan Liquid) 5 ml Q6 PRN PO COUGH Last administered on 01/24/17 08:12; Admin Dose 5 ML; Start 01/14/17 at 13:30 Diagnostic Test (Pha) (Accu-Chek) 1 ea 02 XX Last administered on 01/24/17 04 :00; Admin Dose 1 EA; Start 01/15/17 at 02:00 Levofloxacin (Levaquin) 250 mg Q48H PO Last administered on 01/23/17 20:35; Admin Dose 250 MG; Start 01/15/17 at 20:00 Insulin Glargine (Lantus) 18 unit DAILY@20 SC Last administered on 01/23/17 20:37; Admin Dose 18 UNIT; Start 01/16/17 at 20:00 Carvedilol (Coreg) 6.25 mg BID PO Last administered on 01/24/17 08:13; Admin Dose 6.25 MG; Start 01/21/17 at 21:00 KUNAL RAMOS Jan 24, 2017 17:27
[2017-01-24] MEDS: ATORVASTATIN 40 MG TAB PO SCH (20:15)
[2017-01-24] MEDS: FAMOTIDINE 20 MG TAB PO SCH (20:15)
[2017-01-24] MEDS: INSULIN GLARGINE [LANtus] 3 ML PEN SC SCH (20:22)
[2017-01-25] VITALS (18 sets, daily range): BP systolic 104–145; BP diastolic 56–70; PULSE 62–80; RESP 18–19
[2017-01-25] MEDS: LORAZEPAM 2 MG INJ IV PRN ×4 (00:48→22:13)
[2017-01-25] MEDS: morphine 2 MG INJ IV PRN ×5 (00:48→21:07)
[2017-01-25] MEDS: LEVALBUTEROL (NEB) 0.63 MG/3 ML AMP HHN SCH ×4 (02:05→19:38)
[2017-01-25] MEDS: PROMETHAZINE/CODEINE 5ML CUP PO PRN ×2 (06:31→20:17)
[2017-01-25] MEDS: MULTIVIT/CA CARB/B CMPLX/FA TAB PO SCH (08:25)
[2017-01-25] MEDS: GABAPENTIN 300 MG CAP PO SCH ×2 (08:25→20:17)
[2017-01-25] MEDS: LINAGLIPTIN 5 MG TABLET PO SCH (08:25)
[2017-01-25] MEDS: CLOPIDOGREL 75 MG TAB PO SCH (08:25)
[2017-01-25] MEDS: ASPIRIN (EC) 81 MG TAB PO SCH (08:25)
[2017-01-25] MEDS: ACETAMINOPHEN 325 MG TAB PO PRN ×2 (08:25→19:37)
[2017-01-25] MEDS: FOLIC ACID 1 MG TAB PO SCH (08:25)
[2017-01-25] MEDS: PANTOPRAZOLE (EC) 40 MG TAB PO SCH (08:25)
[2017-01-25] MEDS: HYDROCODONE/HOMATROPINE 5ML CUP PO PRN ×2 (08:26→15:31)
[2017-01-25] MEDS: AMLODIPINE 10 MG TAB PO SCH (08:26)
[2017-01-25] MEDS: SEVELAMER CARBONATE 0.8 GM PKT PO SCH ×3 (08:26→16:47)
[2017-01-25] MEDS: POLYETHYLENE GLYCOL 17 GM PACKET PO SCH ×2 (08:26→20:17)
[2017-01-25] MEDS: INSULIN ASPART [NOVOLOG] 3 ML PEN SC SCH ×7 (08:30→20:24)
[2017-01-25] MEDS: HEPARIN 5,000 UNIT/0.5 ML VIAL SC SCH ×2 (08:31→20:24)
--- NOTE | 2017-01-25 12:44 | CONS ---
Date/Time of Note Date/Time of Note DATE: 01/25/17 TIME: 12:43 Assessment/Plan Assessment/Plan Chief Complaint/Hosp Course 1. Fluid overload,BETTER 2. End-stage renal disease. 3. Hypertension. 4. Diabetes mellitus, controlled. 5. Hyperkalemia, resolved. 6. Atherosclerotic heart disease. 7. Peripheral vascular disease. 8. History of dyslipidemia. 9 History of pneumonia. 10. History of leg cellulitis. 11. History of wound dehiscence. 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 Problems: Additional Assessment/Plan 1. Continue HD 2. Pt is non compliant with medical regime Consultation Date/Type/Reason Admit Date/Time Jan 13, 2017 at 18:04 Type of Consultation: nephrology Reason for Consultation Dr Garcia Referring Provider: KIRSTIN SPANN MD Exam/Review of Systems Vital Signs Vitals Vital Signs Date Time Temp Pulse Resp B/P Pulse Ox O2 Delivery O2 Flow Rate FiO2 01/25/17 12:08 73 01/25/17 11:20 Room Air 01/25/17 08:01 3.0 32 01/25/17 03:51 98.0 19 125/58 96 Intake and Output 01/24/17 01/24/17 01/25/17 14:59 22:59 06:59 Intake Total 500 ml 2500 ml Output Total 4000 ml Balance -3500 ml 2500 ml Exam Constitutional: alert, oriented Respiratory: clear to auscultation Cardiovascular: regular rate and rhythm Extremities: edema Results Result Diagram: 01/24/17 0634 01/24/17 0634 Results 24 hrs Laboratory Tests Test 01/24/17 16:52 01/24/17 20:14 01/25/17 08:24 01/25/17 12:02 Bedside Glucose 151 88 207 117 Medications Medications Current Medications Lorazepam (Ativan) 0.5 mg Q6H PRN IV ANXIETY Last administered on 01/25/17 08 :26; Admin Dose 0.5 MG; Start 01/13/17 at 18:30 Ondansetron HCl (Zofran Inj) 4 mg Q6H PRN IV NAUSEA AND/OR VOMITING Last administered on 01/17/17 20:45; Admin Dose 4 MG; Start 01/13/17 at 18:30 Nitroglycerin (Nitroglycerin (Sl Tab) 0.4 Mg) 1 tab Q5M PRN SL CHEST PAIN; Start 01/13/17 at 18:30 Acetaminophen (Tylenol Tab) 650 mg Q6H PRN PO PAIN LEVEL 1-3 OR FEVER Last administered on 01/25/17 08:25; Admin Dose 650 MG; Start 01/13/17 at 18:30 Morphine Sulfate (morphine) 2 mg Q4H PRN IV PAIN LEVEL 7-10 Last administered on 01/25/17 12:04; Admin Dose 2 MG; Start 01/13/17 at 18:30 Famotidine (Pepcid) 10 mg HS PO Last administered on 01/24/17 20:15; Admin Dose 10 MG; Start 01/13/17 at 21:00 Heparin Sodium (Porcine) (Heparin (5000 Units/0.5 ml)) 5,000 unit Q12 SC Last administered on 01/25/17 08:31; Admin Dose 5,000 UNIT; Start 01/13/17 at 21: 00 Amlodipine Besylate (Norvasc) 10 mg DAILY PO Last administered on 01/25/17 08 :26; Admin Dose 10 MG; Start 01/14/17 at 09:00 Aspirin (Halfprin) 81 mg DAILY PO Last administered on 01/25/17 08:25; Admin Dose 81 MG; Start 01/14/17 at 09:00 Atorvastatin Calcium (Lipitor) 40 mg QHS PO Last administered on 01/24/17 20: 15; Admin Dose 40 MG; Start 01/13/17 at 21:00 Clonidine (Catapres) 0.2 mg TID PRN PO FOR SBP >160 Last administered on 16:43; Admin Dose 0.2 MG; Start 01/13/17 at 19:00 Clopidogrel Bisulfate (plaVIX) 75 mg DAILY PO Last administered on 01/25/17 08:25; Admin Dose 75 MG; Start 01/14/17 at 09:00 Folic Acid (Folic Acid) 1 mg DAILY PO Last administered on 01/25/17 08:25; Admin Dose 1 MG; Start 01/14/17 at 09:00 Gabapentin (Neurontin) 300 mg BID PO Last administered on 01/25/17 08:25; Admin Dose 300 MG; Start 01/13/17 at 21:00 Linagliptin (Tradjenta) 5 mg DAILY PO Last administered on 01/25/17 08:25; Admin Dose 5 MG; Start 01/14/17 at 09:00 Multivit/Ca Carb/ B Cmplx/FA/Prenat (Addie-Mikayla) 1 tab DAILY PO Last administered on 01/25/17 08:25; Admin Dose 1 TAB; Start 01/14/17 at 09:00 Polyethylene Glycol (Miralax) 17 gm BID PO Last administered on 01/25/17 08: 26; Admin Dose 17 GM; Start 01/13/17 at 21:00 Miscellaneous Information 1 ea NOTE XX ; Start 01/13/17 at 19:00 Glucose (Glutose) 15 gm Q15M PRN PO DECREASED GLUCOSE; Start 01/13/17 at 19:00 Glucose (Glutose) 22.5 gm Q15M PRN PO DECREASED GLUCOSE; Start 01/13/17 at 19: 00 Dextrose (D50w Syringe) 25 ml Q15M PRN IV DECREASED GLUCOSE; Start 01/13/17 at 19:00 Dextrose (D50w Syringe) 50 ml Q15M PRN IV DECREASED GLUCOSE; Start 01/13/17 at 19:00 Glucagon (Glucagen) 1 mg Q15M PRN IM DECREASED GLUCOSE; Start 01/13/17 at 19: 00 Glucose (Glutose) 15 gm Q15M PRN BUCCAL DECREASED GLUCOSE; Start 01/13/17 at 19:00 Morphine Sulfate (morphine) 2 mg Q4H PRN IV PAIN Last administered on 23:00; Admin Dose 2 MG; Start 01/14/17 at 01:00 Promethazine HCl/ Codeine (Phenergan/ Codeine) 5 ml Q4H PRN PO COUGH Last administered on 01/25/17 06:31; Admin Dose 5 ML; Start 01/14/17 at 12:30 Hydrocodone Bit/ Homatropine Methylb (Hycodan Liquid) 5 ml Q6 PRN PO COUGH Last administered on 01/25/17 08:26; Admin Dose 5 ML; Start 01/14/17 at 13:30 Diagnostic Test (Pha) (Accu-Chek) 1 ea 02 XX Last administered on 01/24/17 04 :00; Admin Dose 1 EA; Start 01/15/17 at 02:00 Levofloxacin (Levaquin) 250 mg Q48H PO Last administered on 01/23/17 20:35; Admin Dose 250 MG; Start 01/15/17 at 20:00 Insulin Glargine (Lantus) 18 unit DAILY@20 SC Last administered on 01/24/17 20:22; Admin Dose 18 UNIT; Start 01/16/17 at 20:00 Carvedilol (Coreg) 6.25 mg BID PO Last administered on 01/25/17 08:26; Admin Dose 6.25 MG; Start 01/21/17 at 21:00 KUNAL RAMOS Jan 25, 2017 12:44
--- NOTE | 2017-01-25 13:24 | CONS ---
Date/Time of Note Date/Time of Note DATE: 01/25/17 TIME: 13:21 Assessment/Plan Assessment/Plan Chief Complaint/Hosp Course IMPRESSION 1. Atrial fibrillation, t not on systemic anticoagulation, but on aspirin and Plavix, status post PTCA to arteriovenous (AV) fistula, with the patient having elevated CHADS-VASc score and therefore placing her at an increased risk for thromboembolic complications of atrial fibrillation and thus benefit from systemic anticoagulation if possible, and therefore, we will discuss with Vascular Surgery if reasonable to, once vascular surgery procedures are done, change the patient to Plavix with systemic anticoagulation with Eliquis and discontinue aspirin-Now in SR 2. Hypertension, under reasonable control. 3. Respiratory distress, improved. 4. Congestive heart failure (CHF), question diastolic versus systolic and improve volume status. 5. End-stage renal disease on hemodialysis. 6. Diabetes mellitus. 7. Peripheral arterial disease, status post lower extremity bypass. 8. Dyslipidemia. 9. Anemia, severe. Recc: -Tele -serial ecg's -Continue asa/plavix/statin and would start eliquis if no further procedures planned and d/c asa -continue norvasc/coreg -Aggresive HD for volume removal Problems: Consultation Date/Type/Reason Admit Date/Time Jan 13, 2017 at 18:04 Initial Consult Date 01/21/17 Type of Consultation: cardiology Reason for Consultation CHF Referring Provider: KIRSTIN SPANN MD Exam/Review of Systems Vital Signs Vitals Vital Signs Date Time Temp Pulse Resp B/P Pulse Ox O2 Delivery O2 Flow Rate FiO2 01/25/17 12:08 73 01/25/17 11:20 Room Air 01/25/17 08:01 3.0 32 01/25/17 08:00 98.8 130/62 97 01/25/17 03:51 19 Intake and Output 01/24/17 01/24/17 01/25/17 15:00 23:00 07:00 Intake Total 500 ml 2500 ml Output Total 4000 ml Balance -3500 ml 2500 ml Exam Review of Systems: CONSTITUTIONAL: No fevers, chills. PULMONARY: mod sob CARDIOVASCULAR: No chest pain/palpitations GASTROINTESTINAL: No nausea/vomiting. GENITOURINARY: No hematuria/dysuria. MUSCULOSKELETAL: No myagias/arthalgias. PSYCHIATRIC: The patient denies depression. NEUROLOGIC: Generalized weakness Constitutional: alert, oriented Psych: no complaints Head: normocephalic ENMT: mucosa pink and moist Neck: jvd (9-10 cm water), supple Respiratory: diminished breath sounds (at bases/B) Cardiovascular: regular rate and rhythm Gastrointestinal: non-tender, soft Musculoskeletal: muscle weakness (generalized) Extremities: pitting pedal edema (Bilateral LE) Neurological: other (No focal deficits) Results Result Diagram: 01/24/17 0634 01/24/17 0634 Results 24 hrs Laboratory Tests Test 01/24/17 16:52 01/24/17 20:14 01/25/17 08:24 01/25/17 12:02 Bedside Glucose 151 88 207 117 Medications Medications Current Medications Lorazepam (Ativan) 0.5 mg Q6H PRN IV ANXIETY Last administered on 01/25/17 08 :26; Admin Dose 0.5 MG; Start 01/13/17 at 18:30 Ondansetron HCl (Zofran Inj) 4 mg Q6H PRN IV NAUSEA AND/OR VOMITING Last administered on 01/17/17 20:45; Admin Dose 4 MG; Start 01/13/17 at 18:30 Nitroglycerin (Nitroglycerin (Sl Tab) 0.4 Mg) 1 tab Q5M PRN SL CHEST PAIN; Start 01/13/17 at 18:30 Acetaminophen (Tylenol Tab) 650 mg Q6H PRN PO PAIN LEVEL 1-3 OR FEVER Last administered on 01/25/17 08:25; Admin Dose 650 MG; Start 01/13/17 at 18:30 Morphine Sulfate (morphine) 2 mg Q4H PRN IV PAIN LEVEL 7-10 Last administered on 01/25/17 12:04; Admin Dose 2 MG; Start 01/13/17 at 18:30 Famotidine (Pepcid) 10 mg HS PO Last administered on 01/24/17 20:15; Admin Dose 10 MG; Start 01/13/17 at 21:00 Heparin Sodium (Porcine) (Heparin (5000 Units/0.5 ml)) 5,000 unit Q12 SC Last administered on 01/25/17 08:31; Admin Dose 5,000 UNIT; Start 01/13/17 at 21: 00 Amlodipine Besylate (Norvasc) 10 mg DAILY PO Last administered on 01/25/17 08 :26; Admin Dose 10 MG; Start 01/14/17 at 09:00 Aspirin (Halfprin) 81 mg DAILY PO Last administered on 01/25/17 08:25; Admin Dose 81 MG; Start 01/14/17 at 09:00 Atorvastatin Calcium (Lipitor) 40 mg QHS PO Last administered on 01/24/17 20: 15; Admin Dose 40 MG; Start 01/13/17 at 21:00 Clonidine (Catapres) 0.2 mg TID PRN PO FOR SBP >160 Last administered on 16:43; Admin Dose 0.2 MG; Start 01/13/17 at 19:00 Clopidogrel Bisulfate (plaVIX) 75 mg DAILY PO Last administered on 01/25/17 08:25; Admin Dose 75 MG; Start 01/14/17 at 09:00 Folic Acid (Folic Acid) 1 mg DAILY PO Last administered on 01/25/17 08:25; Admin Dose 1 MG; Start 01/14/17 at 09:00 Gabapentin (Neurontin) 300 mg BID PO Last administered on 01/25/17 08:25; Admin Dose 300 MG; Start 01/13/17 at 21:00 Linagliptin (Tradjenta) 5 mg DAILY PO Last administered on 01/25/17 08:25; Admin Dose 5 MG; Start 01/14/17 at 09:00 Multivit/Ca Carb/ B Cmplx/FA/Prenat (Addie-Mikayla) 1 tab DAILY PO Last administered on 01/25/17 08:25; Admin Dose 1 TAB; Start 01/14/17 at 09:00 Polyethylene Glycol (Miralax) 17 gm BID PO Last administered on 01/25/17 08: 26; Admin Dose 17 GM; Start 01/13/17 at 21:00 Miscellaneous Information 1 ea NOTE XX ; Start 01/13/17 at 19:00 Glucose (Glutose) 15 gm Q15M PRN PO DECREASED GLUCOSE; Start 01/13/17 at 19:00 Glucose (Glutose) 22.5 gm Q15M PRN PO DECREASED GLUCOSE; Start 01/13/17 at 19: 00 Dextrose (D50w Syringe) 25 ml Q15M PRN IV DECREASED GLUCOSE; Start 01/13/17 at 19:00 Dextrose (D50w Syringe) 50 ml Q15M PRN IV DECREASED GLUCOSE; Start 01/13/17 at 19:00 Glucagon (Glucagen) 1 mg Q15M PRN IM DECREASED GLUCOSE; Start 01/13/17 at 19: 00 Glucose (Glutose) 15 gm Q15M PRN BUCCAL DECREASED GLUCOSE; Start 01/13/17 at 19:00 Morphine Sulfate (morphine) 2 mg Q4H PRN IV PAIN Last administered on 23:00; Admin Dose 2 MG; Start 01/14/17 at 01:00 Promethazine HCl/ Codeine (Phenergan/ Codeine) 5 ml Q4H PRN PO COUGH Last administered on 01/25/17 06:31; Admin Dose 5 ML; Start 01/14/17 at 12:30 Hydrocodone Bit/ Homatropine Methylb (Hycodan Liquid) 5 ml Q6 PRN PO COUGH Last administered on 01/25/17 08:26; Admin Dose 5 ML; Start 01/14/17 at 13:30 Diagnostic Test (Pha) (Accu-Chek) 1 ea 02 XX Last administered on 01/24/17 04 :00; Admin Dose 1 EA; Start 01/15/17 at 02:00 Levofloxacin (Levaquin) 250 mg Q48H PO Last administered on 01/23/17 20:35; Admin Dose 250 MG; Start 01/15/17 at 20:00 Insulin Glargine (Lantus) 18 unit DAILY@20 SC Last administered on 01/24/17 20:22; Admin Dose 18 UNIT; Start 01/16/17 at 20:00 Carvedilol (Coreg) 6.25 mg BID PO Last administered on 01/25/17 08:26; Admin Dose 6.25 MG; Start 01/21/17 at 21:00 GERTRUDIS GUILLERMO Jan 25, 2017 13:24
--- NOTE | 2017-01-25 15:16 | PN ---
Date/Time of Note Date/Time of Note DATE: 01/25/17 TIME: 15:14 Assessment/Plan VTE Prophylaxis VTE Prophylaxis Intervention: other Lines/Catheters IV [facility] Type (from [facility]): [facility] Urinary Cath still in place: No Assessment/Plan Assessment/Plan -Atrial fibrillation, currently in sinus rhythm, continue heparin. Dr. William is following in cardiology consultation. -Acute respiratory failure secondary to pulmonary edema, resolving. -Hemodialysis dependent end-stage renal disease, Dr. Garcia is following in nephrology consultation, continue hemodialysis. -Status post fistulogram, status post left upper extremity anastomosis angioplasty by Dr. Ruano on 01/19. -Status post left upper extremity fistulogram and coil embolization on 01/23. - Anemia- monitor CBC -E. coli UTI, continue Levaquin. -Diabetes mellitus type 2, hemoglobin A1c 6.5, continue Tradjenta Lantus and NovoLog -HTN -Severe PVD, with multiple vascular intervention including a left lower extremity bypass. -S/p orthopedic procedures to RUE with metal prosthetic after bone Fx -Poor medical compliance Further recommendations based on clinical course. Plan of care is discussed with Dr. Cordero Subjective 24 Hr Interval Summary Free Text/Dictation afebrile, afib, denies any chest pain, had HD today, dw staff Respiratory: no complaints Cardiovascular: no complaints Gastrointestinal: no complaints Musculoskeletal: no complaints Neurologic: no complaints Exam/Review of Systems Vital Signs Vitals Vital Signs Date Time Temp Pulse Resp B/P Pulse Ox O2 Delivery O2 Flow Rate FiO2 01/25/17 14:45 65 01/25/17 14:19 20 Nasal Cannula 3.0 32 01/25/17 08:00 98.8 130/62 97 Intake and Output 01/24/17 01/24/17 01/25/17 15:00 23:00 07:00 Intake Total 500 ml 2500 ml Output Total 4000 ml Balance -3500 ml 2500 ml Exam Constitutional: alert, oriented, well developed Respiratory: clear to auscultation, normal air movement Cardiovascular: nl pulses, other (s1s2) Gastrointestinal: non-tender, soft Musculoskeletal: nl extremities to inspection Extremities: normal pulses Neurological: nl mental status, nl speech Results Result Diagram: 01/24/17 0634 01/24/17 0634 Results 24 hrs Laboratory Tests Test 01/24/17 16:52 01/24/17 20:14 01/25/17 08:24 01/25/17 12:02 Bedside Glucose 151 88 207 117 Medications Medications Current Medications Lorazepam (Ativan) 0.5 mg Q6H PRN IV ANXIETY Last administered on 01/25/17 08 :26; Admin Dose 0.5 MG; Start 01/13/17 at 18:30 Ondansetron HCl (Zofran Inj) 4 mg Q6H PRN IV NAUSEA AND/OR VOMITING Last administered on 01/17/17 20:45; Admin Dose 4 MG; Start 01/13/17 at 18:30 Nitroglycerin (Nitroglycerin (Sl Tab) 0.4 Mg) 1 tab Q5M PRN SL CHEST PAIN; Start 01/13/17 at 18:30 Acetaminophen (Tylenol Tab) 650 mg Q6H PRN PO PAIN LEVEL 1-3 OR FEVER Last administered on 01/25/17 08:25; Admin Dose 650 MG; Start 01/13/17 at 18:30 Morphine Sulfate (morphine) 2 mg Q4H PRN IV PAIN LEVEL 7-10 Last administered on 01/25/17 12:04; Admin Dose 2 MG; Start 01/13/17 at 18:30 Famotidine (Pepcid) 10 mg HS PO Last administered on 01/24/17 20:15; Admin Dose 10 MG; Start 01/13/17 at 21:00 Heparin Sodium (Porcine) (Heparin (5000 Units/0.5 ml)) 5,000 unit Q12 SC Last administered on 01/25/17 08:31; Admin Dose 5,000 UNIT; Start 01/13/17 at 21: 00 Amlodipine Besylate (Norvasc) 10 mg DAILY PO Last administered on 01/25/17 08 :26; Admin Dose 10 MG; Start 01/14/17 at 09:00 Aspirin (Halfprin) 81 mg DAILY PO Last administered on 01/25/17 08:25; Admin Dose 81 MG; Start 01/14/17 at 09:00 Atorvastatin Calcium (Lipitor) 40 mg QHS PO Last administered on 01/24/17 20: 15; Admin Dose 40 MG; Start 01/13/17 at 21:00 Clonidine (Catapres) 0.2 mg TID PRN PO FOR SBP >160 Last administered on 16:43; Admin Dose 0.2 MG; Start 01/13/17 at 19:00 Clopidogrel Bisulfate (plaVIX) 75 mg DAILY PO Last administered on 01/25/17 08:25; Admin Dose 75 MG; Start 01/14/17 at 09:00 Folic Acid (Folic Acid) 1 mg DAILY PO Last administered on 01/25/17 08:25; Admin Dose 1 MG; Start 01/14/17 at 09:00 Gabapentin (Neurontin) 300 mg BID PO Last administered on 01/25/17 08:25; Admin Dose 300 MG; Start 01/13/17 at 21:00 Linagliptin (Tradjenta) 5 mg DAILY PO Last administered on 01/25/17 08:25; Admin Dose 5 MG; Start 01/14/17 at 09:00 Multivit/Ca Carb/ B Cmplx/FA/Prenat (Addie-Mikayla) 1 tab DAILY PO Last administered on 01/25/17 08:25; Admin Dose 1 TAB; Start 01/14/17 at 09:00 Polyethylene Glycol (Miralax) 17 gm BID PO Last administered on 01/25/17 08: 26; Admin Dose 17 GM; Start 01/13/17 at 21:00 Miscellaneous Information 1 ea NOTE XX ; Start 01/13/17 at 19:00 Glucose (Glutose) 15 gm Q15M PRN PO DECREASED GLUCOSE; Start 01/13/17 at 19:00 Glucose (Glutose) 22.5 gm Q15M PRN PO DECREASED GLUCOSE; Start 01/13/17 at 19: 00 Dextrose (D50w Syringe) 25 ml Q15M PRN IV DECREASED GLUCOSE; Start 01/13/17 at 19:00 Dextrose (D50w Syringe) 50 ml Q15M PRN IV DECREASED GLUCOSE; Start 01/13/17 at 19:00 Glucagon (Glucagen) 1 mg Q15M PRN IM DECREASED GLUCOSE; Start 01/13/17 at 19: 00 Glucose (Glutose) 15 gm Q15M PRN BUCCAL DECREASED GLUCOSE; Start 01/13/17 at 19:00 Morphine Sulfate (morphine) 2 mg Q4H PRN IV PAIN Last administered on 23:00; Admin Dose 2 MG; Start 01/14/17 at 01:00 Promethazine HCl/ Codeine (Phenergan/ Codeine) 5 ml Q4H PRN PO COUGH Last administered on 01/25/17 06:31; Admin Dose 5 ML; Start 01/14/17 at 12:30 Hydrocodone Bit/ Homatropine Methylb (Hycodan Liquid) 5 ml Q6 PRN PO COUGH Last administered on 01/25/17 08:26; Admin Dose 5 ML; Start 01/14/17 at 13:30 Diagnostic Test (Pha) (Accu-Chek) 1 ea 02 XX Last administered on 01/24/17 04 :00; Admin Dose 1 EA; Start 01/15/17 at 02:00 Levofloxacin (Levaquin) 250 mg Q48H PO Last administered on 01/23/17 20:35; Admin Dose 250 MG; Start 01/15/17 at 20:00 Insulin Glargine (Lantus) 18 unit DAILY@20 SC Last administered on 01/24/17 20:22; Admin Dose 18 UNIT; Start 01/16/17 at 20:00 Carvedilol (Coreg) 6.25 mg BID PO Last administered on 01/25/17 08:26; Admin Dose 6.25 MG; Start 01/21/17 at 21:00 VIOLET RUDOLPH Jan 25, 2017 15:16
[2017-01-25 17:14] LABS: BASOPHILS % 0.4 % (0.0-2.0); EOSINOPHILS # 0.3 10^3/ul (0.0-0.5); EOSINOPHILS % 5.8 % (0.0-7.0); HEMOGLOBIN 9.1 g/dl (12.0-16.0); LYMPHOCYTES % 18.6 % (15.0-51.0); MEAN CORPUSCULAR HEMOGLOBIN 32.9 pg (29.0-33.0); MEAN CORPUSCULAR HGB CONC 31.4 g/dl (32.0-37.0); MEAN CORPUSCULAR VOLUME 104.7 fl (82.0-101.0); MEAN PLATELET VOLUME 10.5 fl (7.4-10.4); MONOCYTE # 0.7 10^3/ul (0.3-0.9); MONOCYTES % 12.8 % (0.0-11.0); NEUTROPHIL # 3.3 10^3/ul (1.6-7.5); NEUTROPHILS % 61.8 % (39.0-77.0); NUCLEATED RED BLOOD CELLS% 0.6 /100WBC (0.0-0.0); PLATELET COUNT 243 10^3/UL (140-415); RED BLOOD COUNT 2.77 10^6/ul (4.20-5.40); RED CELL DISTRIBUTION WIDTH 14.5 % (11.5-14.5); WHITE BLOOD COUNT 5.4 10^3/ul (4.8-10.8)
[2017-01-25] MEDS: ATORVASTATIN 40 MG TAB PO SCH (20:17)
[2017-01-25] MEDS: FAMOTIDINE 20 MG TAB PO SCH (20:27)
[2017-01-25] MEDS: INSULIN GLARGINE [LANtus] 3 ML PEN SC SCH (20:30)
[2017-01-25] MEDS: LEVOFLOXACIN 250 MG TAB PO SCH (20:34)
[2017-01-26] VITALS (20 sets, daily range): BP systolic 120–168; BP diastolic 57–68; PULSE 66–79; RESP 17–21
[2017-01-26] MEDS: LEVALBUTEROL (NEB) 0.63 MG/3 ML AMP HHN SCH ×4 (01:01→19:48)
[2017-01-26] MEDS: ACCU-CHEK XX SCH (02:00)
[2017-01-26] MEDS: HYDROCODONE/HOMATROPINE 5ML CUP PO PRN (05:17)
[2017-01-26] MEDS: PANTOPRAZOLE (EC) 40 MG TAB PO SCH (05:18)
[2017-01-26] MEDS: morphine 2 MG INJ IV PRN ×5 (05:18→23:44)
[2017-01-26 06:44] LABS: BASOPHILS % 0.2 % (0.0-2.0); EOSINOPHILS # 0.3 10^3/ul (0.0-0.5); EOSINOPHILS % 6.5 % (0.0-7.0); HEMATOCRIT 29.8 % (37.0-47.0); HEMOGLOBIN 9.3 g/dl (12.0-16.0); LYMPHOCYTES # 1.2 10^3/ul (0.8-2.9); LYMPHOCYTES % 25.6 % (15.0-51.0); MEAN CORPUSCULAR HEMOGLOBIN 33.6 pg (29.0-33.0); MEAN CORPUSCULAR HGB CONC 31.2 g/dl (32.0-37.0); MEAN CORPUSCULAR VOLUME 107.6 fl (82.0-101.0); MEAN PLATELET VOLUME 10.7 fl (7.4-10.4); MONOCYTE # 0.7 10^3/ul (0.3-0.9); MONOCYTES % 14.1 % (0.0-11.0); NEUTROPHIL # 2.5 10^3/ul (1.6-7.5); NEUTROPHILS % 53.2 % (39.0-77.0); PLATELET COUNT 248 10^3/UL (140-415); RED BLOOD COUNT 2.77 10^6/ul (4.20-5.40); RED CELL DISTRIBUTION WIDTH 14.1 % (11.5-14.5); WHITE BLOOD COUNT 4.6 10^3/ul (4.8-10.8)
[2017-01-26 07:10] LABS: CREATININE 5.33 mg/dl (0.44-1.00); POTASSIUM 4.8 mmol/L (3.5-5.1)
[2017-01-26] MEDS: MULTIVIT/CA CARB/B CMPLX/FA TAB PO SCH (08:16)
[2017-01-26] MEDS: CLOPIDOGREL 75 MG TAB PO SCH (08:16)
[2017-01-26] MEDS: ASPIRIN (EC) 81 MG TAB PO SCH (08:16)
[2017-01-26] MEDS: POLYETHYLENE GLYCOL 17 GM PACKET PO SCH ×2 (08:16→20:30)
[2017-01-26] MEDS: GABAPENTIN 300 MG CAP PO SCH ×2 (08:16→20:29)
[2017-01-26] MEDS: SEVELAMER CARBONATE 0.8 GM PKT PO SCH ×3 (08:16→17:49)
[2017-01-26] MEDS: LINAGLIPTIN 5 MG TABLET PO SCH (08:16)
[2017-01-26] MEDS: FOLIC ACID 1 MG TAB PO SCH (08:17)
[2017-01-26] MEDS: HEPARIN 5,000 UNIT/0.5 ML VIAL SC SCH ×2 (08:22→20:33)
[2017-01-26] MEDS: ACETAMINOPHEN 325 MG TAB PO PRN ×2 (08:46→20:05)
[2017-01-26] MEDS: LORAZEPAM 2 MG INJ IV PRN ×3 (08:46→23:44)
[2017-01-26] MEDS: INSULIN ASPART [NOVOLOG] 3 ML PEN SC SCH ×7 (08:56→20:17)
--- NOTE | 2017-01-26 13:12 | CONS ---
Date/Time of Note Date/Time of Note DATE: 01/26/17 TIME: 13:12 Assessment/Plan Assessment/Plan Chief Complaint/Hosp Course 56 y/o with 1. Fluid overload, uncontrolled hypertension.BETTER 2. End-stage renal disease. 3. Hypertension. 4. Diabetes mellitus. 5. Hyperkalemia. 6. Atherosclerotic heart disease. 7. Peripheral vascular disease. 8. History of dyslipidemia. 9 History of pneumonia. 10. History of leg cellulitis. 11. History of wound dehiscence. 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 Plan - s/p venuplasty and then s/p coil embolisation on 01/22/17 - HD tmw - c/w Coreg/amlodipine - GI and Dvt prophylaxsis - Labs am Problems: Consultation Date/Type/Reason Admit Date/Time Jan 13, 2017 at 18:04 Type of Consultation: Renal Referring Provider: KIRSTIN SPANN MD Exam/Review of Systems Vital Signs Vitals Vital Signs Date Time Temp Pulse Resp B/P Pulse Ox O2 Delivery O2 Flow Rate FiO2 01/26/17 12:41 71 01/26/17 12:31 3.0 01/26/17 11:21 98.1 20 145/65 92 01/26/17 08:40 Nasal Cannula 01/25/17 17:42 32 Intake and Output 01/25/17 01/25/17 01/26/17 15:00 23:00 07:00 Intake Total 3000 ml Output Total 4000 ml Balance -1000 ml Results Result Diagram: 01/26/17 0602 01/26/17 0602 Results 24 hrs Laboratory Tests Test 01/25/17 16:45 01/25/17 17:03 01/25/17 20:16 01/26/17 06:02 Bedside Glucose 154 103 White Blood Count 5.4 4.6 L Red Blood Count 2.77 L 2.77 L Hemoglobin 9.1 L 9.3 L Hematocrit 29.0 L 29.8 L Mean Corpuscular Volume 104.7 H 107.6 H Mean Corpuscular Hemoglobin 32.9 33.6 H Mean Corpuscular Hemoglobin Concent 31.4 L 31.2 L Red Cell Distribution Width 14.5 14.1 Platelet Count 243 248 Mean Platelet Volume 10.5 H 10.7 H Neutrophils % 61.8 53.2 Lymphocytes % 18.6 25.6 Monocytes % 12.8 H 14.1 H Eosinophils % 5.8 6.5 Basophils % 0.4 0.2 Nucleated Red Blood Cells % 0.6 H 0.0 Neutrophils # 3.3 2.5 Lymphocytes # 1.0 1.2 Monocytes # 0.7 0.7 Eosinophils # 0.3 0.3 Basophils # 0.0 0.0 Nucleated Red Blood Cells # 0.0 0.0 Sodium Level 139 Potassium Level 4.8 Chloride Level 96 L Carbon Dioxide Level 31 Anion Gap 17 H Blood Urea Nitrogen 54 H Creatinine 5.33 H Glucose Level 135 Calcium Level 9.0 Test 01/26/17 08:45 01/26/17 11:58 Bedside Glucose 232 H 123 Medications Medications Current Medications Lorazepam (Ativan) 0.5 mg Q6H PRN IV ANXIETY Last administered on 01/26/17 08 :46; Admin Dose 0.5 MG; Start 01/13/17 at 18:30 Ondansetron HCl (Zofran Inj) 4 mg Q6H PRN IV NAUSEA AND/OR VOMITING Last administered on 01/17/17 20:45; Admin Dose 4 MG; Start 01/13/17 at 18:30 Nitroglycerin (Nitroglycerin (Sl Tab) 0.4 Mg) 1 tab Q5M PRN SL CHEST PAIN; Start 01/13/17 at 18:30 Acetaminophen (Tylenol Tab) 650 mg Q6H PRN PO PAIN LEVEL 1-3 OR FEVER Last administered on 01/26/17 08:46; Admin Dose 650 MG; Start 01/13/17 at 18:30 Morphine Sulfate (morphine) 2 mg Q4H PRN IV PAIN LEVEL 7-10 Last administered on 01/26/17 10:24; Admin Dose 2 MG; Start 01/13/17 at 18:30 Famotidine (Pepcid) 10 mg HS PO Last administered on 01/25/17 20:27; Admin Dose 10 MG; Start 01/13/17 at 21:00 Heparin Sodium (Porcine) (Heparin (5000 Units/0.5 ml)) 5,000 unit Q12 SC Last administered on 01/26/17 08:22; Admin Dose 5,000 UNIT; Start 01/13/17 at 21: 00 Amlodipine Besylate (Norvasc) 10 mg DAILY PO Last administered on 01/25/17 08 :26; Admin Dose 10 MG; Start 01/14/17 at 09:00 Aspirin (Halfprin) 81 mg DAILY PO Last administered on 01/26/17 08:16; Admin Dose 81 MG; Start 01/14/17 at 09:00 Atorvastatin Calcium (Lipitor) 40 mg QHS PO Last administered on 01/25/17 20: 17; Admin Dose 40 MG; Start 01/13/17 at 21:00 Clonidine (Catapres) 0.2 mg TID PRN PO FOR SBP >160 Last administered on 16:43; Admin Dose 0.2 MG; Start 01/13/17 at 19:00 Clopidogrel Bisulfate (plaVIX) 75 mg DAILY PO Last administered on 01/26/17 08:16; Admin Dose 75 MG; Start 01/14/17 at 09:00 Folic Acid (Folic Acid) 1 mg DAILY PO Last administered on 01/26/17 08:17; Admin Dose 1 MG; Start 01/14/17 at 09:00 Gabapentin (Neurontin) 300 mg BID PO Last administered on 01/26/17 08:16; Admin Dose 300 MG; Start 01/13/17 at 21:00 Linagliptin (Tradjenta) 5 mg DAILY PO Last administered on 01/26/17 08:16; Admin Dose 5 MG; Start 01/14/17 at 09:00 Multivit/Ca Carb/ B Cmplx/FA/Prenat (Addie-Mikayla) 1 tab DAILY PO Last administered on 01/26/17 08:16; Admin Dose 1 TAB; Start 01/14/17 at 09:00 Polyethylene Glycol (Miralax) 17 gm BID PO Last administered on 01/26/17 08: 16; Admin Dose 17 GM; Start 01/13/17 at 21:00 Miscellaneous Information 1 ea NOTE XX ; Start 01/13/17 at 19:00 Glucose (Glutose) 15 gm Q15M PRN PO DECREASED GLUCOSE; Start 01/13/17 at 19:00 Glucose (Glutose) 22.5 gm Q15M PRN PO DECREASED GLUCOSE; Start 01/13/17 at 19: 00 Dextrose (D50w Syringe) 25 ml Q15M PRN IV DECREASED GLUCOSE; Start 01/13/17 at 19:00 Dextrose (D50w Syringe) 50 ml Q15M PRN IV DECREASED GLUCOSE; Start 01/13/17 at 19:00 Glucagon (Glucagen) 1 mg Q15M PRN IM DECREASED GLUCOSE; Start 01/13/17 at 19: 00 Glucose (Glutose) 15 gm Q15M PRN BUCCAL DECREASED GLUCOSE; Start 01/13/17 at 19:00 Morphine Sulfate (morphine) 2 mg Q4H PRN IV PAIN Last administered on 23:00; Admin Dose 2 MG; Start 01/14/17 at 01:00 Promethazine HCl/ Codeine (Phenergan/ Codeine) 5 ml Q4H PRN PO COUGH Last administered on 01/25/17 20:17; Admin Dose 5 ML; Start 01/14/17 at 12:30 Hydrocodone Bit/ Homatropine Methylb (Hycodan Liquid) 5 ml Q6 PRN PO COUGH Last administered on 01/26/17 05:17; Admin Dose 5 ML; Start 01/14/17 at 13:30 Diagnostic Test (Pha) (Accu-Chek) 1 ea 02 XX Last administered on 01/24/17 04 :00; Admin Dose 1 EA; Start 01/15/17 at 02:00 Levofloxacin (Levaquin) 250 mg Q48H PO Last administered on 01/25/17 20:34; Admin Dose 250 MG; Start 01/15/17 at 20:00 Insulin Glargine (Lantus) 18 unit DAILY@20 SC Last administered on 01/25/17 20:30; Admin Dose 18 UNIT; Start 01/16/17 at 20:00 Carvedilol (Coreg) 6.25 mg BID PO Last administered on 01/25/17 20:18; Admin Dose 6.25 MG; Start 01/21/17 at 21:00 DARELL JAMES MD Jan 26, 2017 13:12
--- NOTE | 2017-01-26 13:46 | PN ---
Date/Time of Note Date/Time of Note DATE: 01/26/17 TIME: 13:45 Assessment/Plan VTE Prophylaxis VTE Prophylaxis Intervention: SCD's Lines/Catheters IV [facility] Urinary Cath still in place: No Assessment/Plan Chief Complaint/Hosp Course Patient is undergoing HD, complains of wheezing, SOB. Assessment/Plan -Atrial fibrillation, currently in sinus rhythm, continue heparin. Dr. William is following in cardiology consultation. -Acute respiratory failure secondary to pulmonary edema, resolving. -Hemodialysis dependent end-stage renal disease, Dr. Garcia is following in nephrology consultation, continue hemodialysis. -Status post fistulogram, status post left upper extremity anastomosis angioplasty by Dr. Ruano on 01/19. Status post left upper extremity fistulogram and coil embolization on 01/23. -E. coli UTI, continue Levaquin. -Diabetes mellitus type 2, hemoglobin A1c 6.5, continue Tradjenta Lantus and NovoLog -HTN -Severe PVD, with multiple vascular intervention including a left lower extremity bypass. -S/p orthopedic procedures to RUE with metal prosthetic after bone Fx -Poor medical compliance Further recommendations based on clinical course. Plan of care is discussed with Dr. Cordero Problems: Exam/Review of Systems Vital Signs Vitals Vital Signs Date Time Temp Pulse Resp B/P Pulse Ox O2 Delivery O2 Flow Rate FiO2 01/26/17 12:41 71 01/26/17 12:31 3.0 01/26/17 11:21 98.1 20 145/65 92 01/26/17 08:40 Nasal Cannula 01/25/17 17:42 32 Intake and Output 01/25/17 01/25/17 01/26/17 15:00 23:00 07:00 Intake Total 3000 ml Output Total 4000 ml Balance -1000 ml Exam Constitutional: alert, oriented Head: normocephalic Neck: supple Respiratory: diminished breath sounds, wheezing Cardiovascular: nl pulses, regular rate and rhythm Gastrointestinal: non-tender, soft Musculoskeletal: nl extremities to inspection Extremities: normal pulses Neurological: nl mental status Results Result Diagram: 01/26/17 0602 01/26/17 0602 Results 24 hrs Laboratory Tests Test 01/25/17 16:45 01/25/17 17:03 01/25/17 20:16 01/26/17 06:02 Bedside Glucose 154 103 White Blood Count 5.4 4.6 L Red Blood Count 2.77 L 2.77 L Hemoglobin 9.1 L 9.3 L Hematocrit 29.0 L 29.8 L Mean Corpuscular Volume 104.7 H 107.6 H Mean Corpuscular Hemoglobin 32.9 33.6 H Mean Corpuscular Hemoglobin Concent 31.4 L 31.2 L Red Cell Distribution Width 14.5 14.1 Platelet Count 243 248 Mean Platelet Volume 10.5 H 10.7 H Neutrophils % 61.8 53.2 Lymphocytes % 18.6 25.6 Monocytes % 12.8 H 14.1 H Eosinophils % 5.8 6.5 Basophils % 0.4 0.2 Nucleated Red Blood Cells % 0.6 H 0.0 Neutrophils # 3.3 2.5 Lymphocytes # 1.0 1.2 Monocytes # 0.7 0.7 Eosinophils # 0.3 0.3 Basophils # 0.0 0.0 Nucleated Red Blood Cells # 0.0 0.0 Sodium Level 139 Potassium Level 4.8 Chloride Level 96 L Carbon Dioxide Level 31 Anion Gap 17 H Blood Urea Nitrogen 54 H Creatinine 5.33 H Glucose Level 135 Calcium Level 9.0 Test 01/26/17 08:45 01/26/17 11:58 Bedside Glucose 232 H 123 Medications Medications Current Medications Lorazepam (Ativan) 0.5 mg Q6H PRN IV ANXIETY Last administered on 01/26/17 08 :46; Admin Dose 0.5 MG; Start 01/13/17 at 18:30 Ondansetron HCl (Zofran Inj) 4 mg Q6H PRN IV NAUSEA AND/OR VOMITING Last administered on 01/17/17 20:45; Admin Dose 4 MG; Start 01/13/17 at 18:30 Nitroglycerin (Nitroglycerin (Sl Tab) 0.4 Mg) 1 tab Q5M PRN SL CHEST PAIN; Start 01/13/17 at 18:30 Acetaminophen (Tylenol Tab) 650 mg Q6H PRN PO PAIN LEVEL 1-3 OR FEVER Last administered on 01/26/17 08:46; Admin Dose 650 MG; Start 01/13/17 at 18:30 Morphine Sulfate (morphine) 2 mg Q4H PRN IV PAIN LEVEL 7-10 Last administered on 01/26/17 10:24; Admin Dose 2 MG; Start 01/13/17 at 18:30 Famotidine (Pepcid) 10 mg HS PO Last administered on 01/25/17 20:27; Admin Dose 10 MG; Start 01/13/17 at 21:00 Heparin Sodium (Porcine) (Heparin (5000 Units/0.5 ml)) 5,000 unit Q12 SC Last administered on 01/26/17 08:22; Admin Dose 5,000 UNIT; Start 01/13/17 at 21: 00 Amlodipine Besylate (Norvasc) 10 mg DAILY PO Last administered on 01/25/17 08 :26; Admin Dose 10 MG; Start 01/14/17 at 09:00 Aspirin (Halfprin) 81 mg DAILY PO Last administered on 01/26/17 08:16; Admin Dose 81 MG; Start 01/14/17 at 09:00 Atorvastatin Calcium (Lipitor) 40 mg QHS PO Last administered on 01/25/17 20: 17; Admin Dose 40 MG; Start 01/13/17 at 21:00 Clonidine (Catapres) 0.2 mg TID PRN PO FOR SBP >160 Last administered on 16:43; Admin Dose 0.2 MG; Start 01/13/17 at 19:00 Clopidogrel Bisulfate (plaVIX) 75 mg DAILY PO Last administered on 01/26/17 08:16; Admin Dose 75 MG; Start 01/14/17 at 09:00 Folic Acid (Folic Acid) 1 mg DAILY PO Last administered on 01/26/17 08:17; Admin Dose 1 MG; Start 01/14/17 at 09:00 Gabapentin (Neurontin) 300 mg BID PO Last administered on 01/26/17 08:16; Admin Dose 300 MG; Start 01/13/17 at 21:00 Linagliptin (Tradjenta) 5 mg DAILY PO Last administered on 01/26/17 08:16; Admin Dose 5 MG; Start 01/14/17 at 09:00 Multivit/Ca Carb/ B Cmplx/FA/Prenat (Addie-Mikayla) 1 tab DAILY PO Last administered on 01/26/17 08:16; Admin Dose 1 TAB; Start 01/14/17 at 09:00 Polyethylene Glycol (Miralax) 17 gm BID PO Last administered on 01/26/17 08: 16; Admin Dose 17 GM; Start 01/13/17 at 21:00 Miscellaneous Information 1 ea NOTE XX ; Start 01/13/17 at 19:00 Glucose (Glutose) 15 gm Q15M PRN PO DECREASED GLUCOSE; Start 01/13/17 at 19:00 Glucose (Glutose) 22.5 gm Q15M PRN PO DECREASED GLUCOSE; Start 01/13/17 at 19: 00 Dextrose (D50w Syringe) 25 ml Q15M PRN IV DECREASED GLUCOSE; Start 01/13/17 at 19:00 Dextrose (D50w Syringe) 50 ml Q15M PRN IV DECREASED GLUCOSE; Start 01/13/17 at 19:00 Glucagon (Glucagen) 1 mg Q15M PRN IM DECREASED GLUCOSE; Start 01/13/17 at 19: 00 Glucose (Glutose) 15 gm Q15M PRN BUCCAL DECREASED GLUCOSE; Start 01/13/17 at 19:00 Morphine Sulfate (morphine) 2 mg Q4H PRN IV PAIN Last administered on 23:00; Admin Dose 2 MG; Start 01/14/17 at 01:00 Promethazine HCl/ Codeine (Phenergan/ Codeine) 5 ml Q4H PRN PO COUGH Last administered on 01/25/17 20:17; Admin Dose 5 ML; Start 01/14/17 at 12:30 Hydrocodone Bit/ Homatropine Methylb (Hycodan Liquid) 5 ml Q6 PRN PO COUGH Last administered on 01/26/17 05:17; Admin Dose 5 ML; Start 01/14/17 at 13:30 Diagnostic Test (Pha) (Accu-Chek) 1 ea 02 XX Last administered on 01/24/17 04 :00; Admin Dose 1 EA; Start 01/15/17 at 02:00 Levofloxacin (Levaquin) 250 mg Q48H PO Last administered on 01/25/17 20:34; Admin Dose 250 MG; Start 01/15/17 at 20:00 Insulin Glargine (Lantus) 18 unit DAILY@20 SC Last administered on 01/25/17 20:30; Admin Dose 18 UNIT; Start 01/16/17 at 20:00 Carvedilol (Coreg) 6.25 mg BID PO Last administered on 01/25/17 20:18; Admin Dose 6.25 MG; Start 01/21/17 at 21:00 ANTHONY DUPREE Jan 26, 2017 13:46
--- NOTE | 2017-01-26 13:54 | CONS ---
Date/Time of Note Date/Time of Note DATE: 01/26/17 TIME: 13:51 Assessment/Plan Assessment/Plan Chief Complaint/Hosp Course IMPRESSION 1. Atrial fibrillation, t not on systemic anticoagulation, but on aspirin and Plavix, status post PTCA to arteriovenous (AV) fistula, with the patient having elevated CHADS-VASc score and therefore placing her at an increased risk for thromboembolic complications of atrial fibrillation and thus benefit from systemic anticoagulation if possible, and therefore, we will discuss with Vascular Surgery if reasonable to, once vascular surgery procedures are done, change the patient to Plavix with systemic anticoagulation with Eliquis and discontinue aspirin-Now in SR 2. Hypertension, under reasonable control. 3. Respiratory distress, improved. 4. Congestive heart failure (CHF), question diastolic versus systolic and improve volume status. 5. End-stage renal disease on hemodialysis. 6. Diabetes mellitus. 7. Peripheral arterial disease, status post lower extremity bypass. 8. Dyslipidemia. 9. Anemia, severe. Recc: -Tele -serial ecg's -Continue asa/plavix/statin and would start eliquis if no further procedures planned and d/c asa -continue norvasc/coreg -Continue aggresive HD for volume removal Problems: Consultation Date/Type/Reason Admit Date/Time Jan 13, 2017 at 18:04 Initial Consult Date 01/21/17 Type of Consultation: cardiology Reason for Consultation AF Referring Provider: KIRSTIN SPANN MD Exam/Review of Systems Vital Signs Vitals Vital Signs Date Time Temp Pulse Resp B/P Pulse Ox O2 Delivery O2 Flow Rate FiO2 01/26/17 12:41 71 01/26/17 12:31 3.0 01/26/17 11:21 98.1 20 145/65 92 01/26/17 08:40 Nasal Cannula 01/25/17 17:42 32 Intake and Output 01/25/17 01/25/17 01/26/17 15:00 23:00 07:00 Intake Total 3000 ml Output Total 4000 ml Balance -1000 ml Exam Review of Systems: CONSTITUTIONAL: No fevers, chills. PULMONARY: No sob CARDIOVASCULAR: No chest pain/palpitations GASTROINTESTINAL: No nausea/vomiting. GENITOURINARY: No hematuria/dysuria. MUSCULOSKELETAL: No myagias/arthalgias. PSYCHIATRIC: The patient denies depression. NEUROLOGIC: No weakness Constitutional: alert Psych: no complaints Head: normocephalic ENMT: mucosa pink and moist Neck: jvd, supple Respiratory: diminished breath sounds (at bases/B) Cardiovascular: regular rate and rhythm Gastrointestinal: non-tender, soft Musculoskeletal: muscle tone (normal) Extremities: pitting pedal edema (bilateral) Results Result Diagram: 01/26/17 0602 01/26/17 0602 Results 24 hrs Laboratory Tests Test 01/25/17 16:45 01/25/17 17:03 01/25/17 20:16 01/26/17 06:02 Bedside Glucose 154 103 White Blood Count 5.4 4.6 L Red Blood Count 2.77 L 2.77 L Hemoglobin 9.1 L 9.3 L Hematocrit 29.0 L 29.8 L Mean Corpuscular Volume 104.7 H 107.6 H Mean Corpuscular Hemoglobin 32.9 33.6 H Mean Corpuscular Hemoglobin Concent 31.4 L 31.2 L Red Cell Distribution Width 14.5 14.1 Platelet Count 243 248 Mean Platelet Volume 10.5 H 10.7 H Neutrophils % 61.8 53.2 Lymphocytes % 18.6 25.6 Monocytes % 12.8 H 14.1 H Eosinophils % 5.8 6.5 Basophils % 0.4 0.2 Nucleated Red Blood Cells % 0.6 H 0.0 Neutrophils # 3.3 2.5 Lymphocytes # 1.0 1.2 Monocytes # 0.7 0.7 Eosinophils # 0.3 0.3 Basophils # 0.0 0.0 Nucleated Red Blood Cells # 0.0 0.0 Sodium Level 139 Potassium Level 4.8 Chloride Level 96 L Carbon Dioxide Level 31 Anion Gap 17 H Blood Urea Nitrogen 54 H Creatinine 5.33 H Glucose Level 135 Calcium Level 9.0 Test 01/26/17 08:45 01/26/17 11:58 Bedside Glucose 232 H 123 Medications Medications Current Medications Lorazepam (Ativan) 0.5 mg Q6H PRN IV ANXIETY Last administered on 01/26/17 08 :46; Admin Dose 0.5 MG; Start 01/13/17 at 18:30 Ondansetron HCl (Zofran Inj) 4 mg Q6H PRN IV NAUSEA AND/OR VOMITING Last administered on 01/17/17 20:45; Admin Dose 4 MG; Start 01/13/17 at 18:30 Nitroglycerin (Nitroglycerin (Sl Tab) 0.4 Mg) 1 tab Q5M PRN SL CHEST PAIN; Start 01/13/17 at 18:30 Acetaminophen (Tylenol Tab) 650 mg Q6H PRN PO PAIN LEVEL 1-3 OR FEVER Last administered on 01/26/17 08:46; Admin Dose 650 MG; Start 01/13/17 at 18:30 Morphine Sulfate (morphine) 2 mg Q4H PRN IV PAIN LEVEL 7-10 Last administered on 01/26/17 10:24; Admin Dose 2 MG; Start 01/13/17 at 18:30 Famotidine (Pepcid) 10 mg HS PO Last administered on 01/25/17 20:27; Admin Dose 10 MG; Start 01/13/17 at 21:00 Heparin Sodium (Porcine) (Heparin (5000 Units/0.5 ml)) 5,000 unit Q12 SC Last administered on 01/26/17 08:22; Admin Dose 5,000 UNIT; Start 01/13/17 at 21: 00 Amlodipine Besylate (Norvasc) 10 mg DAILY PO Last administered on 01/25/17 08 :26; Admin Dose 10 MG; Start 01/14/17 at 09:00 Aspirin (Halfprin) 81 mg DAILY PO Last administered on 01/26/17 08:16; Admin Dose 81 MG; Start 01/14/17 at 09:00 Atorvastatin Calcium (Lipitor) 40 mg QHS PO Last administered on 01/25/17 20: 17; Admin Dose 40 MG; Start 01/13/17 at 21:00 Clonidine (Catapres) 0.2 mg TID PRN PO FOR SBP >160 Last administered on 16:43; Admin Dose 0.2 MG; Start 01/13/17 at 19:00 Clopidogrel Bisulfate (plaVIX) 75 mg DAILY PO Last administered on 01/26/17 08:16; Admin Dose 75 MG; Start 01/14/17 at 09:00 Folic Acid (Folic Acid) 1 mg DAILY PO Last administered on 01/26/17 08:17; Admin Dose 1 MG; Start 01/14/17 at 09:00 Gabapentin (Neurontin) 300 mg BID PO Last administered on 01/26/17 08:16; Admin Dose 300 MG; Start 01/13/17 at 21:00 Linagliptin (Tradjenta) 5 mg DAILY PO Last administered on 01/26/17 08:16; Admin Dose 5 MG; Start 01/14/17 at 09:00 Multivit/Ca Carb/ B Cmplx/FA/Prenat (Addie-Mikayla) 1 tab DAILY PO Last administered on 01/26/17 08:16; Admin Dose 1 TAB; Start 01/14/17 at 09:00 Polyethylene Glycol (Miralax) 17 gm BID PO Last administered on 01/26/17 08: 16; Admin Dose 17 GM; Start 01/13/17 at 21:00 Miscellaneous Information 1 ea NOTE XX ; Start 01/13/17 at 19:00 Glucose (Glutose) 15 gm Q15M PRN PO DECREASED GLUCOSE; Start 01/13/17 at 19:00 Glucose (Glutose) 22.5 gm Q15M PRN PO DECREASED GLUCOSE; Start 01/13/17 at 19: 00 Dextrose (D50w Syringe) 25 ml Q15M PRN IV DECREASED GLUCOSE; Start 01/13/17 at 19:00 Dextrose (D50w Syringe) 50 ml Q15M PRN IV DECREASED GLUCOSE; Start 01/13/17 at 19:00 Glucagon (Glucagen) 1 mg Q15M PRN IM DECREASED GLUCOSE; Start 01/13/17 at 19: 00 Glucose (Glutose) 15 gm Q15M PRN BUCCAL DECREASED GLUCOSE; Start 01/13/17 at 19:00 Morphine Sulfate (morphine) 2 mg Q4H PRN IV PAIN Last administered on 23:00; Admin Dose 2 MG; Start 01/14/17 at 01:00 Promethazine HCl/ Codeine (Phenergan/ Codeine) 5 ml Q4H PRN PO COUGH Last administered on 01/25/17 20:17; Admin Dose 5 ML; Start 01/14/17 at 12:30 Hydrocodone Bit/ Homatropine Methylb (Hycodan Liquid) 5 ml Q6 PRN PO COUGH Last administered on 01/26/17 05:17; Admin Dose 5 ML; Start 01/14/17 at 13:30 Diagnostic Test (Pha) (Accu-Chek) 1 ea 02 XX Last administered on 01/24/17 04 :00; Admin Dose 1 EA; Start 01/15/17 at 02:00 Levofloxacin (Levaquin) 250 mg Q48H PO Last administered on 01/25/17 20:34; Admin Dose 250 MG; Start 01/15/17 at 20:00 Insulin Glargine (Lantus) 18 unit DAILY@20 SC Last administered on 01/25/17 20:30; Admin Dose 18 UNIT; Start 01/16/17 at 20:00 Carvedilol (Coreg) 6.25 mg BID PO Last administered on 01/25/17 20:18; Admin Dose 6.25 MG; Start 01/21/17 at 21:00 GERTRUDIS GUILLERMO Jan 26, 2017 13:54
--- NOTE | 2017-01-26 14:14 | CONS ---
Date/Time of Note Date/Time of Note DATE: 01/26/17 TIME: 14:07 Assessment/Plan Assessment/Plan Chief Complaint/Hosp Course 56 y/o with 1. Fluid overload, uncontrolled hypertension.BETTER 2. End-stage renal disease. 3. Hypertension. 4. Diabetes mellitus. 5. Hyperkalemia. 6. Atherosclerotic heart disease. 7. Peripheral vascular disease. 8. History of dyslipidemia. 9 History of pneumonia. 10. History of leg cellulitis. 11. History of wound dehiscence. 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 14 SOB likely secondary to Pul edema vs Pneumonia with CHF due to diastolic dysfunction Plan - s/p HD 3 days in row , pt is having input of 3 L /day so inspite of removal of 3500 ml, pt is not that net negative due to excessive fluid intake - Strict Fluid restriction to 1.5 L - Order Chest Xray, ABG, BNP - Pulm consult has been called - Assess daily for HD needs - HD tmw - c/w Coreg/amlodipine - GI and Dvt prophylaxsis - Labs am Problems: Consultation Date/Type/Reason Admit Date/Time Jan 13, 2017 at 18:04 Type of Consultation: Renal Referring Provider: KIRSTIN SPANN MD 24 HR Interval Summary Free Text/Dictation Gettinh HD today Says still get sob s/p HD 2 days in row, today 3rd session Exam/Review of Systems Vital Signs Vitals Vital Signs Date Time Temp Pulse Resp B/P Pulse Ox O2 Delivery O2 Flow Rate FiO2 01/26/17 12:41 71 01/26/17 12:31 3.0 01/26/17 11:21 98.1 20 145/65 92 01/26/17 08:40 Nasal Cannula 01/25/17 17:42 32 Intake and Output 01/25/17 01/25/17 01/26/17 15:00 23:00 07:00 Intake Total 3000 ml Output Total 4000 ml Balance -1000 ml Exam Constitutional: alert, oriented, well developed, on oxygen Respiratory: few rhonchi Cardiovascular: nl pulses, other (s1s2) Gastrointestinal: non-tender, soft Musculoskeletal: nl extremities to inspection Extremities: normal pulses Neurological: nl mental status, nl speech Results Result Diagram: 01/26/17 0602 01/26/17 0602 Results 24 hrs Laboratory Tests Test 01/25/17 16:45 01/25/17 17:03 01/25/17 20:16 01/26/17 06:02 Bedside Glucose 154 103 White Blood Count 5.4 4.6 L Red Blood Count 2.77 L 2.77 L Hemoglobin 9.1 L 9.3 L Hematocrit 29.0 L 29.8 L Mean Corpuscular Volume 104.7 H 107.6 H Mean Corpuscular Hemoglobin 32.9 33.6 H Mean Corpuscular Hemoglobin Concent 31.4 L 31.2 L Red Cell Distribution Width 14.5 14.1 Platelet Count 243 248 Mean Platelet Volume 10.5 H 10.7 H Neutrophils % 61.8 53.2 Lymphocytes % 18.6 25.6 Monocytes % 12.8 H 14.1 H Eosinophils % 5.8 6.5 Basophils % 0.4 0.2 Nucleated Red Blood Cells % 0.6 H 0.0 Neutrophils # 3.3 2.5 Lymphocytes # 1.0 1.2 Monocytes # 0.7 0.7 Eosinophils # 0.3 0.3 Basophils # 0.0 0.0 Nucleated Red Blood Cells # 0.0 0.0 Sodium Level 139 Potassium Level 4.8 Chloride Level 96 L Carbon Dioxide Level 31 Anion Gap 17 H Blood Urea Nitrogen 54 H Creatinine 5.33 H Glucose Level 135 Calcium Level 9.0 Test 01/26/17 08:45 01/26/17 11:58 Bedside Glucose 232 H 123 Medications Medications Current Medications Lorazepam (Ativan) 0.5 mg Q6H PRN IV ANXIETY Last administered on 01/26/17 08 :46; Admin Dose 0.5 MG; Start 01/13/17 at 18:30 Ondansetron HCl (Zofran Inj) 4 mg Q6H PRN IV NAUSEA AND/OR VOMITING Last administered on 01/17/17 20:45; Admin Dose 4 MG; Start 01/13/17 at 18:30 Nitroglycerin (Nitroglycerin (Sl Tab) 0.4 Mg) 1 tab Q5M PRN SL CHEST PAIN; Start 01/13/17 at 18:30 Acetaminophen (Tylenol Tab) 650 mg Q6H PRN PO PAIN LEVEL 1-3 OR FEVER Last administered on 01/26/17 08:46; Admin Dose 650 MG; Start 01/13/17 at 18:30 Morphine Sulfate (morphine) 2 mg Q4H PRN IV PAIN LEVEL 7-10 Last administered on 01/26/17 10:24; Admin Dose 2 MG; Start 01/13/17 at 18:30 Famotidine (Pepcid) 10 mg HS PO Last administered on 01/25/17 20:27; Admin Dose 10 MG; Start 01/13/17 at 21:00 Heparin Sodium (Porcine) (Heparin (5000 Units/0.5 ml)) 5,000 unit Q12 SC Last administered on 01/26/17 08:22; Admin Dose 5,000 UNIT; Start 01/13/17 at 21: 00 Amlodipine Besylate (Norvasc) 10 mg DAILY PO Last administered on 01/25/17 08 :26; Admin Dose 10 MG; Start 01/14/17 at 09:00 Aspirin (Halfprin) 81 mg DAILY PO Last administered on 01/26/17 08:16; Admin Dose 81 MG; Start 01/14/17 at 09:00 Atorvastatin Calcium (Lipitor) 40 mg QHS PO Last administered on 01/25/17 20: 17; Admin Dose 40 MG; Start 01/13/17 at 21:00 Clonidine (Catapres) 0.2 mg TID PRN PO FOR SBP >160 Last administered on 16:43; Admin Dose 0.2 MG; Start 01/13/17 at 19:00 Clopidogrel Bisulfate (plaVIX) 75 mg DAILY PO Last administered on 01/26/17 08:16; Admin Dose 75 MG; Start 01/14/17 at 09:00 Folic Acid (Folic Acid) 1 mg DAILY PO Last administered on 01/26/17 08:17; Admin Dose 1 MG; Start 01/14/17 at 09:00 Gabapentin (Neurontin) 300 mg BID PO Last administered on 01/26/17 08:16; Admin Dose 300 MG; Start 01/13/17 at 21:00 Linagliptin (Tradjenta) 5 mg DAILY PO Last administered on 01/26/17 08:16; Admin Dose 5 MG; Start 01/14/17 at 09:00 Multivit/Ca Carb/ B Cmplx/FA/Prenat (Addie-Mikayla) 1 tab DAILY PO Last administered on 01/26/17 08:16; Admin Dose 1 TAB; Start 01/14/17 at 09:00 Polyethylene Glycol (Miralax) 17 gm BID PO Last administered on 01/26/17 08: 16; Admin Dose 17 GM; Start 01/13/17 at 21:00 Miscellaneous Information 1 ea NOTE XX ; Start 01/13/17 at 19:00 Glucose (Glutose) 15 gm Q15M PRN PO DECREASED GLUCOSE; Start 01/13/17 at 19:00 Glucose (Glutose) 22.5 gm Q15M PRN PO DECREASED GLUCOSE; Start 01/13/17 at 19: 00 Dextrose (D50w Syringe) 25 ml Q15M PRN IV DECREASED GLUCOSE; Start 01/13/17 at 19:00 Dextrose (D50w Syringe) 50 ml Q15M PRN IV DECREASED GLUCOSE; Start 01/13/17 at 19:00 Glucagon (Glucagen) 1 mg Q15M PRN IM DECREASED GLUCOSE; Start 01/13/17 at 19: 00 Glucose (Glutose) 15 gm Q15M PRN BUCCAL DECREASED GLUCOSE; Start 01/13/17 at 19:00 Morphine Sulfate (morphine) 2 mg Q4H PRN IV PAIN Last administered on 23:00; Admin Dose 2 MG; Start 01/14/17 at 01:00 Promethazine HCl/ Codeine (Phenergan/ Codeine) 5 ml Q4H PRN PO COUGH Last administered on 01/25/17 20:17; Admin Dose 5 ML; Start 01/14/17 at 12:30 Hydrocodone Bit/ Homatropine Methylb (Hycodan Liquid) 5 ml Q6 PRN PO COUGH Last administered on 01/26/17 05:17; Admin Dose 5 ML; Start 01/14/17 at 13:30 Diagnostic Test (Pha) (Accu-Chek) 1 ea 02 XX Last administered on 01/24/17 04 :00; Admin Dose 1 EA; Start 01/15/17 at 02:00 Levofloxacin (Levaquin) 250 mg Q48H PO Last administered on 01/25/17 20:34; Admin Dose 250 MG; Start 01/15/17 at 20:00 Insulin Glargine (Lantus) 18 unit DAILY@20 SC Last administered on 01/25/17 20:30; Admin Dose 18 UNIT; Start 01/16/17 at 20:00 Carvedilol (Coreg) 6.25 mg BID PO Last administered on 01/25/17 20:18; Admin Dose 6.25 MG; Start 01/21/17 at 21:00 DARELL JAMES MD Jan 26, 2017 14:14
[2017-01-26] MEDS: AMLODIPINE 10 MG TAB PO SCH (14:43)
[2017-01-26 16:41] LABS: AADO2 Arterial 19.6 mmHg (7.0-24.0); Arterial Base Excess 2.5 mmol/L (-3.0-3); Arterial COHb 0.5 % (0.0-3.0); Arterial HCO3 28.4 mmol/L (22.0-26.0); Arterial MetHb 0.2 % (0.0-1.5); Arterial Total Hemglobin 9.6 g/dl (12.0-18.0); MODE ROOM AIR
--- NOTE | 2017-01-26 16:41 | RADRPT ---
PROCEDURE: XR Chest. CLINICAL INDICATION: Dyspnea. Pulmonary edema. TECHNIQUE: Single frontal chest x-ray. COMPARISON: Chest x-ray 01/16/2017 FINDINGS: The lungs volumes are diminished. There are compressive changes with vascular crowding and basilar atelectasis. Subtle mild increased vascular congestion and volume overload is seen, minimally worse since the prior study. The cardiomediastinal silhouette is normal. The base of the heart is eleva colin due to low lung volumes. The surrounding soft tissues and osseous structures are unremarkable. IMPRESSION: 1. Low lung volumes with compressive changes and basilar atelectasis. 2. Mild worsening vascular congestion and volume overload within the lungs. RPTAT: HMJB .Amanuel Huitron MD, Date Time Electronically viewed and signed by .Amanuel Huitron MD, MD on 01/26/2017 16:40 .B/
[2017-01-26 16:49] LABS: ALBUMIN 4.1 g/dl (3.3-4.9); ALBUMIN/GLOBULIN RATIO 1.32; CALCIUM 8.9 mg/dl (8.4-10.2); CREATININE 4.19 mg/dl (0.44-1.00); POTASSIUM 4.4 mmol/L (3.5-5.1); TOTAL PROTEIN 7.2 g/dl (6.1-8.1)
[2017-01-26] MEDS: INSULIN GLARGINE [LANtus] 3 ML PEN SC SCH (20:13)
[2017-01-26] MEDS: ATORVASTATIN 40 MG TAB PO SCH (20:29)
[2017-01-26] MEDS: FAMOTIDINE 20 MG TAB PO SCH (20:29)
[2017-01-27] VITALS (15 sets, daily range): BP systolic 110–155; BP diastolic 50–69; PULSE 64–80; RESP 16–18
[2017-01-27] MEDS: LEVALBUTEROL (NEB) 0.63 MG/3 ML AMP HHN SCH ×3 (02:00→20:00)
[2017-01-27] MEDS: ACCU-CHEK XX SCH (02:00)
[2017-01-27] MEDS: ACETAMINOPHEN 325 MG TAB PO PRN (05:19)
[2017-01-27] MEDS: PANTOPRAZOLE (EC) 40 MG TAB PO SCH (07:25)
[2017-01-27] MEDS: LORAZEPAM 2 MG INJ IV PRN ×4 (08:29→21:39)
[2017-01-27] MEDS: morphine 2 MG INJ IV PRN ×4 (08:29→21:36)
[2017-01-27] MEDS: POLYETHYLENE GLYCOL 17 GM PACKET PO SCH ×2 (08:49→21:00)
[2017-01-27] MEDS: GABAPENTIN 300 MG CAP PO SCH ×2 (08:50→21:32)
[2017-01-27] MEDS: AMLODIPINE 10 MG TAB PO SCH (08:51)
[2017-01-27] MEDS: MULTIVIT/CA CARB/B CMPLX/FA TAB PO SCH (08:51)
[2017-01-27] MEDS: FOLIC ACID 1 MG TAB PO SCH (08:51)
[2017-01-27] MEDS: SEVELAMER CARBONATE 0.8 GM PKT PO SCH ×3 (08:53→17:36)
[2017-01-27] MEDS: ASPIRIN (EC) 81 MG TAB PO SCH (08:56)
[2017-01-27] MEDS: CLOPIDOGREL 75 MG TAB PO SCH (09:00)
[2017-01-27] MEDS: LINAGLIPTIN 5 MG TABLET PO SCH (09:00)
[2017-01-27] MEDS: HEPARIN 5,000 UNIT/0.5 ML VIAL SC SCH ×2 (09:08→21:47)
[2017-01-27] MEDS: INSULIN ASPART [NOVOLOG] 3 ML PEN SC SCH ×7 (09:09→21:00)
--- NOTE | 2017-01-27 11:53 | CONS ---
Date/Time of Note Date/Time of Note DATE: 01/27/17 TIME: 11:51 Assessment/Plan Assessment/Plan Chief Complaint/Hosp Course 56 y/o with 1. Fluid overload, uncontrolled hypertension.BETTER 2. End-stage renal disease. 3. Hypertension. 4. Diabetes mellitus. 5. Hyperkalemia. 6. Atherosclerotic heart disease. 7. Peripheral vascular disease. 8. History of dyslipidemia. 9 History of pneumonia. 10. History of leg cellulitis. 11. History of wound dehiscence. 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 14 SOB likely secondary to Pul edema vs Pneumonia with CHF due to diastolic dysfunction Plan - s/p HD 3 days in row , pt is having input of 3 L /day so inspite of removal of 3500 ml, pt is not that net negative due to excessive fluid intake - Strict Fluid restriction to 1.5 L - Dry UF - Pulm consult has been called , spoke to [employer] with Dr Cordero - Assess daily for HD needs - Decrease Ativan frquency - c/w Coreg/amlodipine - GI and Dvt prophylaxsis - Labs am Problems: Consultation Date/Type/Reason Admit Date/Time Jan 13, 2017 at 18:04 Type of Consultation: Renal Referring Provider: KIRSTIN CORDERO MD 24 HR Interval Summary Free Text/Dictation Pt still sob Spoke to patient abt strict fluid restriction Pt is getting very anxious also Exam/Review of Systems Vital Signs Vitals Vital Signs Date Time Temp Pulse Resp B/P Pulse Ox O2 Delivery O2 Flow Rate FiO2 01/27/17 08:16 98.2 68 18 155/67 91 01/26/17 20:02 3.0 01/26/17 19:51 21 01/26/17 08:40 Nasal Cannula Intake and Output 01/26/17 01/26/17 01/27/17 15:00 23:00 07:00 Intake Total 1000 ml 550 ml Output Total 4000 ml Balance -3000 ml 550 ml Exam Constitutional: alert, oriented, well developed, on oxygen Respiratory: few rhonchi Cardiovascular: nl pulses, other (s1s2) Gastrointestinal: non-tender, soft Musculoskeletal: nl extremities to inspection Extremities: normal pulses Neurological: nl mental status, nl speech Results Result Diagram: 01/26/17 0602 01/26/17 1554 Results 24 hrs Laboratory Tests Test 01/26/17 11:58 01/26/17 15:54 01/26/17 16:00 01/26/17 17:43 Bedside Glucose 123 211 Sodium Level 140 Potassium Level 4.4 Chloride Level 99 Carbon Dioxide Level 28 Anion Gap 17 H Blood Urea Nitrogen 39 #H Creatinine 4.19 #H Glucose Level 157 Calcium Level 8.9 Total Bilirubin 0.0 L Direct Bilirubin 0.00 Indirect Bilirubin 0.0 Aspartate Amino Transf (AST/SGOT) 23 Alanine Aminotransferase (ALT/SGPT) 30 Alkaline Phosphatase 137 H Total Protein 7.2 Albumin 4.1 Globulin 3.10 Albumin/Globulin Ratio 1.32 Blood Gas Specimen Source Blood arterial Arterial Blood Date Drawn 01/26/2017 4:35:15 PM Arterial Blood pH (Temp corrected) 7.366 Arterial Blood pCO2 (Temp correct) 50.7 H Arterial Blood pO2 (Temp corrected) 69.4 L Arterial Blood HCO3 28.4 H Arterial Blood Base Excess 2.5 Arterial Blood Oxygen Saturation 91.6 L Ronald Test N/A Arterial Blood Gas Puncture Site Right Brachial Arterial Blood Carboxyhemoglobin 0.5 Arterial Blood Methemoglobin 0.2 Blood Gas A-a O2 Differential 19.6 Oxyhemoglobin Percent 91.0 L Total Hemoglobin 9.6 L Blood Gas Temperature 37.0 Blood Gas Modality ROOM AIR FiO2 21.0 Blood Gas Notified Whom [place] Blood Gas Notified Time 01/26/2017 4:40:47 PM Test 01/26/17 20:10 01/27/17 08:55 Bedside Glucose 250 H 241 H Medications Medications Current Medications Ondansetron HCl (Zofran Inj) 4 mg Q6H PRN IV NAUSEA AND/OR VOMITING Last administered on 01/17/17 20:45; Admin Dose 4 MG; Start 01/13/17 at 18:30 Nitroglycerin (Nitroglycerin (Sl Tab) 0.4 Mg) 1 tab Q5M PRN SL CHEST PAIN; Start 01/13/17 at 18:30 Acetaminophen (Tylenol Tab) 650 mg Q6H PRN PO PAIN LEVEL 1-3 OR FEVER Last administered on 01/27/17 05:19; Admin Dose 650 MG; Start 01/13/17 at 18:30 Morphine Sulfate (morphine) 2 mg Q4H PRN IV PAIN LEVEL 7-10 Last administered on 01/27/17 08:29; Admin Dose 2 MG; Start 01/13/17 at 18:30 Famotidine (Pepcid) 10 mg HS PO Last administered on 01/26/17 20:29; Admin Dose 10 MG; Start 01/13/17 at 21:00 Heparin Sodium (Porcine) (Heparin (5000 Units/0.5 ml)) 5,000 unit Q12 SC Last administered on 01/27/17 09:08; Admin Dose 5,000 UNIT; Start 01/13/17 at 21: 00 Amlodipine Besylate (Norvasc) 10 mg DAILY PO Last administered on 01/27/17 08 :51; Admin Dose 10 MG; Start 01/14/17 at 09:00 Aspirin (Halfprin) 81 mg DAILY PO Last administered on 01/27/17 08:56; Admin Dose 81 MG; Start 01/14/17 at 09:00 Atorvastatin Calcium (Lipitor) 40 mg QHS PO Last administered on 01/26/17 20: 29; Admin Dose 40 MG; Start 01/13/17 at 21:00 Clonidine (Catapres) 0.2 mg TID PRN PO FOR SBP >160 Last administered on 16:43; Admin Dose 0.2 MG; Start 01/13/17 at 19:00 Clopidogrel Bisulfate (plaVIX) 75 mg DAILY PO Last administered on 01/26/17 08:16; Admin Dose 75 MG; Start 01/14/17 at 09:00 Folic Acid (Folic Acid) 1 mg DAILY PO Last administered on 01/27/17 08:51; Admin Dose 1 MG; Start 01/14/17 at 09:00 Gabapentin (Neurontin) 300 mg BID PO Last administered on 01/27/17 08:50; Admin Dose 300 MG; Start 01/13/17 at 21:00 Linagliptin (Tradjenta) 5 mg DAILY PO Last administered on 01/26/17 08:16; Admin Dose 5 MG; Start 01/14/17 at 09:00 Multivit/Ca Carb/ B Cmplx/FA/Prenat (Addie-Mikayla) 1 tab DAILY PO Last administered on 01/27/17 08:51; Admin Dose 1 TAB; Start 01/14/17 at 09:00 Polyethylene Glycol (Miralax) 17 gm BID PO Last administered on 01/27/17 08: 49; Admin Dose 17 GM; Start 01/13/17 at 21:00 Miscellaneous Information 1 ea NOTE XX ; Start 01/13/17 at 19:00 Glucose (Glutose) 15 gm Q15M PRN PO DECREASED GLUCOSE; Start 01/13/17 at 19:00 Glucose (Glutose) 22.5 gm Q15M PRN PO DECREASED GLUCOSE; Start 01/13/17 at 19: 00 Dextrose (D50w Syringe) 25 ml Q15M PRN IV DECREASED GLUCOSE; Start 01/13/17 at 19:00 Dextrose (D50w Syringe) 50 ml Q15M PRN IV DECREASED GLUCOSE; Start 01/13/17 at 19:00 Glucagon (Glucagen) 1 mg Q15M PRN IM DECREASED GLUCOSE; Start 01/13/17 at 19: 00 Glucose (Glutose) 15 gm Q15M PRN BUCCAL DECREASED GLUCOSE; Start 01/13/17 at 19:00 Morphine Sulfate (morphine) 2 mg Q4H PRN IV PAIN Last administered on 23:00; Admin Dose 2 MG; Start 01/14/17 at 01:00 Promethazine HCl/ Codeine (Phenergan/ Codeine) 5 ml Q4H PRN PO COUGH Last administered on 01/25/17 20:17; Admin Dose 5 ML; Start 01/14/17 at 12:30 Hydrocodone Bit/ Homatropine Methylb (Hycodan Liquid) 5 ml Q6 PRN PO COUGH Last administered on 01/26/17 05:17; Admin Dose 5 ML; Start 01/14/17 at 13:30 Diagnostic Test (Pha) (Accu-Chek) 1 ea 02 XX Last administered on 01/24/17 04 :00; Admin Dose 1 EA; Start 01/15/17 at 02:00 Levofloxacin (Levaquin) 250 mg Q48H PO Last administered on 01/25/17 20:34; Admin Dose 250 MG; Start 01/15/17 at 20:00 Insulin Glargine (Lantus) 18 unit DAILY@20 SC Last administered on 01/26/17 20:13; Admin Dose 18 UNIT; Start 01/16/17 at 20:00 Carvedilol (Coreg) 6.25 mg BID PO Last administered on 01/27/17t 08:51; Admin Dose 6.25 MG; Start 01/21/17 at 21:00 Lorazepam (Ativan) 0.5 mg Q4 PRN IV ANXIETY; Start 01/27/17 at 13:00; Status UNV DARELL JAMES MD Jan 27, 2017 11:53
--- NOTE | 2017-01-27 15:18 | PN ---
Date/Time of Note Date/Time of Note DATE: 01/27/17 TIME: 15:08 Assessment/Plan VTE Prophylaxis VTE Prophylaxis Intervention: SCD's Lines/Catheters IV C[facility]ter Type [facility]from [facility] Urinary Cath still in place: No Assessment/Plan Chief Complaint/Hosp Course Patient is s/p HD today, complains of wheezing, SOB on exertion, Dr Cole is asked to see pt in pulmonology consultation. Assessment/Plan -Atrial fibrillation, currently in sinus rhythm, continue heparin. Dr. William is following in cardiology consultation. -Acute respiratory failure secondary to pulmonary edema, resolving. -Hemodialysis dependent end-stage renal disease, Dr. Garcia is following in nephrology consultation, continue hemodialysis. Fluid restriction. -Status post fistulogram, status post left upper extremity anastomosis angioplasty by Dr. Ruano on 01/19. Status post left upper extremity fistulogram and coil embolization on 01/23. -E. coli UTI, s/p treatment. -Diabetes mellitus type 2, hemoglobin A1c 6.5, continue Tradjenta Lantus and NovoLog -HTN -Severe PVD, with multiple vascular intervention including a left lower extremity bypass. -S/p orthopedic procedures to RUE with metal prosthetic after bone Fx -Poor medical compliance Further recommendations based on clinical course. Plan of care is discussed with Dr. Cordero Problems: Exam/Review of Systems Vital Signs Vitals Vital Signs Date Time Temp Pulse Resp B/P Pulse Ox O2 Delivery O2 Flow Rate FiO2 01/27/17 12:35 72 01/27/17 08:16 98.2 18 155/67 91 01/26/17 20:02 3.0 01/26/17 19:51 21 01/26/17 08:40 Nasal Cannula Intake and Output 01/26/17 01/26/17 01/27/17 15:00 23:00 07:00 Intake Total 1000 ml 550 ml Output Total 4000 ml Balance -3000 ml 550 ml Exam Constitutional: alert, oriented Respiratory: diminished breath sounds, wheezing Cardiovascular: nl pulses, regular rate and rhythm Gastrointestinal: non-tender, soft Neurological: nl mental status Results Result Diagram: 01/26/17 0602 01/26/17 1554 Results 24 hrs Laboratory Tests Test 01/26/17 15:54 01/26/17 16:00 01/26/17 17:43 01/26/17 20:10 Sodium Level 140 Potassium Level 4.4 Chloride Level 99 Carbon Dioxide Level 28 Anion Gap 17 H Blood Urea Nitrogen 39 #H Creatinine 4.19 #H Glucose Level 157 Calcium Level 8.9 Total Bilirubin 0.0 L Direct Bilirubin 0.00 Indirect Bilirubin 0.0 Aspartate Amino Transf (AST/SGOT) 23 Alanine Aminotransferase (ALT/SGPT) 30 Alkaline Phosphatase 137 H Total Protein 7.2 Albumin 4.1 Globulin 3.10 Albumin/Globulin Ratio 1.32 Blood Gas Specimen Source Blood arterial Arterial Blood Date Drawn 01/26/2017 4:35:15 PM Arterial Blood pH (Temp corrected) 7.366 Arterial Blood pCO2 (Temp correct) 50.7 H Arterial Blood pO2 (Temp corrected) 69.4 L Arterial Blood HCO3 28.4 H Arterial Blood Base Excess 2.5 Arterial Blood Oxygen Saturation 91.6 L Ronald Test N/A Arterial Blood Gas Puncture Site Right Brachial Arterial Blood Carboxyhemoglobin 0.5 Arterial Blood Methemoglobin 0.2 Blood Gas A-a O2 Differential 19.6 Oxyhemoglobin Percent 91.0 L Total Hemoglobin 9.6 L Blood Gas Temperature 37.0 Blood Gas Modality ROOM AIR FiO2 21.0 Blood Gas Notified Whom [place] Blood Gas Notified Time 01/26/2017 4:40:47 PM Bedside Glucose 211 250 H Test 01/27/17 08:55 01/27/17 13:07 Bedside Glucose 241 H 248 H Medications Medications Current Medications Ondansetron HCl (Zofran Inj) 4 mg Q6H PRN IV NAUSEA AND/OR VOMITING Last administered on 01/17/17 20:45; Admin Dose 4 MG; Start 01/13/17 at 18:30 Nitroglycerin (Nitroglycerin (Sl Tab) 0.4 Mg) 1 tab Q5M PRN SL CHEST PAIN; Start 01/13/17 at 18:30 Acetaminophen (Tylenol Tab) 650 mg Q6H PRN PO PAIN LEVEL 1-3 OR FEVER Last administered on 01/27/17 05:19; Admin Dose 650 MG; Start 01/13/17 at 18:30 Morphine Sulfate (morphine) 2 mg Q4H PRN IV PAIN LEVEL 7-10 Last administered on 01/27/17 13:26; Admin Dose 2 MG; Start 01/13/17 at 18:30 Famotidine (Pepcid) 10 mg HS PO Last administered on 01/26/17 20:29; Admin Dose 10 MG; Start 01/13/17 at 21:00 Heparin Sodium (Porcine) (Heparin (5000 Units/0.5 ml)) 5,000 unit Q12 SC Last administered on 01/27/17 09:08; Admin Dose 5,000 UNIT; Start 01/13/17 at 21: 00 Amlodipine Besylate (Norvasc) 10 mg DAILY PO Last administered on 01/27/17 08 :51; Admin Dose 10 MG; Start 01/14/17 at 09:00 Aspirin (Halfprin) 81 mg DAILY PO Last administered on 01/27/17 08:56; Admin Dose 81 MG; Start 01/14/17 at 09:00 Atorvastatin Calcium (Lipitor) 40 mg QHS PO Last administered on 01/26/17 20: 29; Admin Dose 40 MG; Start 01/13/17 at 21:00 Clonidine (Catapres) 0.2 mg TID PRN PO FOR SBP >160 Last administered on 16:43; Admin Dose 0.2 MG; Start 01/13/17 at 19:00 Clopidogrel Bisulfate (plaVIX) 75 mg DAILY PO Last administered on 01/27/17 09:00; Admin Dose 75 MG; Start 01/14/17 at 09:00 Folic Acid (Folic Acid) 1 mg DAILY PO Last administered on 01/27/17 08:51; Admin Dose 1 MG; Start 01/14/17 at 09:00 Gabapentin (Neurontin) 300 mg BID PO Last administered on 01/27/17 08:50; Admin Dose 300 MG; Start 01/13/17 at 21:00 Linagliptin (Tradjenta) 5 mg DAILY PO Last administered on 01/27/17 09:00; Admin Dose 5 MG; Start 01/14/17 at 09:00 Multivit/Ca Carb/ B Cmplx/FA/Prenat (Addie-Mikayla) 1 tab DAILY PO Last administered on 01/27/17 08:51; Admin Dose 1 TAB; Start 01/14/17 at 09:00 Polyethylene Glycol (Miralax) 17 gm BID PO Last administered on 01/27/17 08: 49; Admin Dose 17 GM; Start 01/13/17 at 21:00 Miscellaneous Information 1 ea NOTE XX ; Start 01/13/17 at 19:00 Glucose (Glutose) 15 gm Q15M PRN PO DECREASED GLUCOSE; Start 01/13/17 at 19:00 Glucose (Glutose) 22.5 gm Q15M PRN PO DECREASED GLUCOSE; Start 01/13/17 at 19: 00 Dextrose (D50w Syringe) 25 ml Q15M PRN IV DECREASED GLUCOSE; Start 01/13/17 at 19:00 Dextrose (D50w Syringe) 50 ml Q15M PRN IV DECREASED GLUCOSE; Start 01/13/17 at 19:00 Glucagon (Glucagen) 1 mg Q15M PRN IM DECREASED GLUCOSE; Start 01/13/17 at 19: 00 Glucose (Glutose) 15 gm Q15M PRN BUCCAL DECREASED GLUCOSE; Start 01/13/17 at 19:00 Morphine Sulfate (morphine) 2 mg Q4H PRN IV PAIN Last administered on 23:00; Admin Dose 2 MG; Start 01/14/17 at 01:00 Promethazine HCl/ Codeine (Phenergan/ Codeine) 5 ml Q4H PRN PO COUGH Last administered on 01/25/17 20:17; Admin Dose 5 ML; Start 01/14/17 at 12:30 Hydrocodone Bit/ Homatropine Methylb (Hycodan Liquid) 5 ml Q6 PRN PO COUGH Last administered on 01/26/17 05:17; Admin Dose 5 ML; Start 01/14/17 at 13:30 Diagnostic Test (Pha) (Accu-Chek) 1 ea 02 XX Last administered on 01/24/17 04 :00; Admin Dose 1 EA; Start 01/15/17 at 02:00 Levofloxacin (Levaquin) 250 mg Q48H PO Last administered on 01/25/17 20:34; Admin Dose 250 MG; Start 01/15/17 at 20:00 Insulin Glargine (Lantus) 18 unit DAILY@20 SC Last administered on 01/26/17 20:13; Admin Dose 18 UNIT; Start 01/16/17 at 20:00 Carvedilol (Coreg) 6.25 mg BID PO Last administered on 01/27/17 08:51; Admin Dose 6.25 MG; Start 01/21/17 at 21:00 Lorazepam (Ativan) 0.5 mg Q4 PRN IV ANXIETY Last administered on 01/27/17t 13: 27; Admin Dose 0.5 MG; Start 01/27/17 at 13:00 ANTHONY DUPREE Jan 27, 2017 15:18
[2017-01-27] MEDS: ATORVASTATIN 40 MG TAB PO SCH (21:30)
[2017-01-27] MEDS: FAMOTIDINE 20 MG TAB PO SCH (21:31)
[2017-01-28] VITALS (19 sets, daily range): BP systolic 109–150; BP diastolic 51–66; PULSE 60–77; RESP 15–20
[2017-01-28] MEDS: LEVALBUTEROL (NEB) 0.63 MG/3 ML AMP HHN SCH ×4 (01:12→19:36)
[2017-01-28] MEDS: morphine 2 MG INJ IV PRN ×5 (01:48→22:23)
[2017-01-28] MEDS: ACCU-CHEK XX SCH (01:48)
[2017-01-28] MEDS: LORAZEPAM 2 MG INJ IV PRN ×4 (01:49→22:23)
[2017-01-28] MEDS: PROMETHAZINE/CODEINE 5ML CUP PO PRN ×2 (04:17→17:48)
[2017-01-28] MEDS: PANTOPRAZOLE (EC) 40 MG TAB PO SCH (08:08)
[2017-01-28] MEDS: SEVELAMER CARBONATE 0.8 GM PKT PO SCH ×3 (08:08→17:42)
[2017-01-28] MEDS: INSULIN ASPART [NOVOLOG] 3 ML PEN SC SCH ×7 (08:11→20:41)
[2017-01-28] MEDS: FOLIC ACID 1 MG TAB PO SCH (08:12)
[2017-01-28] MEDS: MULTIVIT/CA CARB/B CMPLX/FA TAB PO SCH (08:12)
[2017-01-28] MEDS: HEPARIN 5,000 UNIT/0.5 ML VIAL SC SCH (08:12)
[2017-01-28] MEDS: CLOPIDOGREL 75 MG TAB PO SCH (08:12)
[2017-01-28] MEDS: ASPIRIN (EC) 81 MG TAB PO SCH (08:12)
[2017-01-28] MEDS: GABAPENTIN 300 MG CAP PO SCH ×2 (08:12→20:21)
[2017-01-28] MEDS: AMLODIPINE 10 MG TAB PO SCH (08:13)
[2017-01-28] MEDS: LINAGLIPTIN 5 MG TABLET PO SCH (08:13)
[2017-01-28] MEDS: POLYETHYLENE GLYCOL 17 GM PACKET PO SCH ×2 (08:26→20:42)
[2017-01-28 08:34] LABS: BASOPHILS % 0.4 % (0.0-2.0); EOSINOPHILS # 0.3 10^3/ul (0.0-0.5); EOSINOPHILS % 5.7 % (0.0-7.0); HEMOGLOBIN 8.9 g/dl (12.0-16.0); LYMPHOCYTES # 1.2 10^3/ul (0.8-2.9); LYMPHOCYTES % 24.7 % (15.0-51.0); MEAN CORPUSCULAR HEMOGLOBIN 32.7 pg (29.0-33.0); MEAN CORPUSCULAR HGB CONC 30.7 g/dl (32.0-37.0); MEAN CORPUSCULAR VOLUME 106.6 fl (82.0-101.0); MEAN PLATELET VOLUME 11.2 fl (7.4-10.4); MONOCYTE # 0.5 10^3/ul (0.3-0.9); MONOCYTES % 10.6 % (0.0-11.0); NEUTROPHIL # 2.8 10^3/ul (1.6-7.5); NEUTROPHILS % 58.2 % (39.0-77.0); PLATELET COUNT 201 10^3/UL (140-415); RED BLOOD COUNT 2.72 10^6/ul (4.20-5.40); RED CELL DISTRIBUTION WIDTH 14.6 % (11.5-14.5); WHITE BLOOD COUNT 4.9 10^3/ul (4.8-10.8)
[2017-01-28 09:03] LABS: CALCIUM 8.4 mg/dl (8.4-10.2); CREATININE 6.87 mg/dl (0.44-1.00); POTASSIUM 5.7 mmol/L (3.5-5.1)
--- NOTE | 2017-01-28 12:15 | CONS ---
Date/Time of Note Date/Time of Note DATE: 01/28/17 TIME: 12:13 Assessment/Plan Assessment/Plan Chief Complaint/Hosp Course 56 y/o with 1. Fluid overload, uncontrolled hypertension.BETTER 2. End-stage renal disease. 3. Hypertension. 4. Diabetes mellitus. 5. Hyperkalemia. 6. Atherosclerotic heart disease. 7. Peripheral vascular disease. 8. History of dyslipidemia. 9 History of pneumonia. 10. History of leg cellulitis. 11. History of wound dehiscence. 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 14 SOB likely secondary to Pul edema vs Pneumonia with CHF due to diastolic dysfunction Plan - s/p HD 3 days in row , pt is having input of 3 L /day so inspite of removal of 3500 ml, pt is not that net negative due to excessive fluid intake - Strict Fluid restriction to 1.5 L - HD today - Assess daily for HD needs - Ativan - c/w Coreg/amlodipine - GI and Dvt prophylaxsis - Labs am - ? SNIF Problems: Consultation Date/Type/Reason Admit Date/Time Jan 13, 2017 at 18:04 Type of Consultation: Renal Referring Provider: IKRSTIN SPANN MD 24 HR Interval Summary Free Text/Dictation HD today Pt was explained about strict compliance with fluids Exam/Review of Systems Vital Signs Vitals Vital Signs Date Time Temp Pulse Resp B/P Pulse Ox O2 Delivery O2 Flow Rate FiO2 01/28/17 12:05 71 01/28/17 11:38 98.4 18 119/57 98 01/28/17 08:15 21 01/28/17 01:12 Nasal Cannula 2.0 Intake and Output 01/27/17 01/27/17 01/28/17 14:59 22:59 06:59 Intake Total 500 ml 800 ml Output Total 4000 ml Balance -3500 ml 800 ml Exam en: Awake and alert Respiratory: clear to auscultation Cardiovascular: regular rate and rhythm Gastrointestinal: bowel sounds (+), soft Extremities: edema (++) Left ue fistula Results Result Diagram: 01/28/17 0725 01/28/17 0725 Results 24 hrs Laboratory Tests Test 01/27/17 13:07 01/27/17 17:47 01/27/17 20:55 01/28/17 07:25 Bedside Glucose 248 H 203 177 White Blood Count 4.9 Red Blood Count 2.72 L Hemoglobin 8.9 L Hematocrit 29.0 L Mean Corpuscular Volume 106.6 H Mean Corpuscular Hemoglobin 32.7 Mean Corpuscular Hemoglobin Concent 30.7 L Red Cell Distribution Width 14.6 H Platelet Count 201 Mean Platelet Volume 11.2 H Neutrophils % 58.2 Lymphocytes % 24.7 Monocytes % 10.6 Eosinophils % 5.7 Basophils % 0.4 Nucleated Red Blood Cells % 0.0 Neutrophils # 2.8 Lymphocytes # 1.2 Monocytes # 0.5 Eosinophils # 0.3 Basophils # 0.0 Nucleated Red Blood Cells # 0.0 Sodium Level 139 Potassium Level 5.7 H Chloride Level 99 Carbon Dioxide Level 27 Anion Gap 19 H Blood Urea Nitrogen 73 #H Creatinine 6.87 #H Glucose Level 209 Calcium Level 8.4 Test 01/28/17 08:07 01/28/17 11:46 Bedside Glucose 277 H 185 Medications Medications Current Medications Ondansetron HCl (Zofran Inj) 4 mg Q6H PRN IV NAUSEA AND/OR VOMITING Last administered on 01/17/17 20:45; Admin Dose 4 MG; Start 01/13/17 at 18:30 Nitroglycerin (Nitroglycerin (Sl Tab) 0.4 Mg) 1 tab Q5M PRN SL CHEST PAIN; Start 01/13/17 at 18:30 Acetaminophen (Tylenol Tab) 650 mg Q6H PRN PO PAIN LEVEL 1-3 OR FEVER Last administered on 01/27/17 05:19; Admin Dose 650 MG; Start 01/13/17 at 18:30 Morphine Sulfate (morphine) 2 mg Q4H PRN IV PAIN LEVEL 7-10 Last administered on 01/28/17 11:40; Admin Dose 2 MG; Start 01/13/17 at 18:30 Famotidine (Pepcid) 10 mg HS PO Last administered on 01/27/17 21:31; Admin Dose 10 MG; Start 01/13/17 at 21:00 Heparin Sodium (Porcine) (Heparin (5000 Units/0.5 ml)) 5,000 unit Q12 SC Last administered on 01/28/17 08:12; Admin Dose 5,000 UNIT; Start 01/13/17 at 21: 00 Amlodipine Besylate (Norvasc) 10 mg DAILY PO Last administered on 01/28/17 08 :13; Admin Dose 10 MG; Start 01/14/17 at 09:00 Aspirin (Halfprin) 81 mg DAILY PO Last administered on 01/28/17 08:12; Admin Dose 81 MG; Start 01/14/17 at 09:00 Atorvastatin Calcium (Lipitor) 40 mg QHS PO Last administered on 01/27/17 21: 30; Admin Dose 40 MG; Start 01/13/17 at 21:00 Clonidine (Catapres) 0.2 mg TID PRN PO FOR SBP >160 Last administered on 16:43; Admin Dose 0.2 MG; Start 01/13/17 at 19:00 Clopidogrel Bisulfate (plaVIX) 75 mg DAILY PO Last administered on 01/28/17 08:12; Admin Dose 75 MG; Start 01/14/17 at 09:00 Folic Acid (Folic Acid) 1 mg DAILY PO Last administered on 01/28/17 08:12; Admin Dose 1 MG; Start 01/14/17 at 09:00 Gabapentin (Neurontin) 300 mg BID PO Last administered on 01/28/17 08:12; Admin Dose 300 MG; Start 01/13/17 at 21:00 Linagliptin (Tradjenta) 5 mg DAILY PO Last administered on 01/28/17 08:13; Admin Dose 5 MG; Start 01/14/17 at 09:00 Multivit/Ca Carb/ B Cmplx/FA/Prenat (Addie-Mikayla) 1 tab DAILY PO Last administered on 01/28/17 08:12; Admin Dose 1 TAB; Start 01/14/17 at 09:00 Polyethylene Glycol (Miralax) 17 gm BID PO Last administered on 01/27/17 08: 49; Admin Dose 17 GM; Start 01/13/17 at 21:00 Miscellaneous Information 1 ea NOTE XX ; Start 01/13/17 at 19:00 Glucose (Glutose) 15 gm Q15M PRN PO DECREASED GLUCOSE; Start 01/13/17 at 19:00 Glucose (Glutose) 22.5 gm Q15M PRN PO DECREASED GLUCOSE; Start 01/13/17 at 19: 00 Dextrose (D50w Syringe) 25 ml Q15M PRN IV DECREASED GLUCOSE; Start 01/13/17 at 19:00 Dextrose (D50w Syringe) 50 ml Q15M PRN IV DECREASED GLUCOSE; Start 01/13/17 at 19:00 Glucagon (Glucagen) 1 mg Q15M PRN IM DECREASED GLUCOSE; Start 01/13/17 at 19: 00 Glucose (Glutose) 15 gm Q15M PRN BUCCAL DECREASED GLUCOSE; Start 01/13/17 at 19:00 Morphine Sulfate (morphine) 2 mg Q4H PRN IV PAIN Last administered on 23:00; Admin Dose 2 MG; Start 01/14/17 at 01:00 Promethazine HCl/ Codeine (Phenergan/ Codeine) 5 ml Q4H PRN PO COUGH Last administered on 01/28/17 04:17; Admin Dose 5 ML; Start 01/14/17 at 12:30 Hydrocodone Bit/ Homatropine Methylb (Hycodan Liquid) 5 ml Q6 PRN PO COUGH Last administered on 01/26/17 05:17; Admin Dose 5 ML; Start 01/14/17 at 13:30 Diagnostic Test (Pha) (Accu-Chek) 1 ea 02 XX Last administered on 01/24/17 04 :00; Admin Dose 1 EA; Start 01/15/17 at 02:00 Carvedilol (Coreg) 6.25 mg BID PO Last administered on 01/28/17 08:13; Admin Dose 6.25 MG; Start 01/21/17 at 21:00 Lorazepam (Ativan) 0.5 mg Q4 PRN IV ANXIETY Last administered on 01/28/17 07: 12; Admin Dose 0.5 MG; Start 01/27/17 at 13:00 DARELL JAMES MD Jan 28, 2017 12:15
--- NOTE | 2017-01-28 13:10 | CONS ---
Date/Time of Note Date/Time of Note DATE: 01/28/17 TIME: 13:07 Assessment/Plan Assessment/Plan Chief Complaint/Hosp Course IMPRESSION 1. Atrial fibrillation, not on systemic anticoagulation, but on aspirin and Plavix, status post PTCA to arteriovenous (AV) fistula, with the patient having elevated CHADS-VASc score and therefore placing her at an increased risk for thromboembolic complications of atrial fibrillation and thus benefit from systemic anticoagulation if possible, and therefore, we will discuss with Vascular Surgery if reasonable to, once vascular surgery procedures are done, change the patient to Plavix with systemic anticoagulation with Eliquis and discontinue aspirin-Now in SR 2. Hypertension, under reasonable control. 3. Respiratory distress, improved. 4. Congestive heart failure (CHF), question diastolic versus systolic and improve volume status. 5. End-stage renal disease on hemodialysis. 6. Diabetes mellitus. 7. Peripheral arterial disease, status post lower extremity bypass. 8. Dyslipidemia. 9. Anemia, severe. Recc: -Tele -serial ecg's -Continue plavix/statin and will start eliquis and d/c asa -continue norvasc/coreg -Continue aggresive HD for volume removal -Fluid restriction Problems: Consultation Date/Type/Reason Admit Date/Time Jan 13, 2017 at 18:04 Initial Consult Date 01/21/17 Type of Consultation: cardiology Reason for Consultation CHF Referring Provider: KIRSTIN SPANN MD Exam/Review of Systems Vital Signs Vitals Vital Signs Date Time Temp Pulse Resp B/P Pulse Ox O2 Delivery O2 Flow Rate FiO2 01/28/17 12:05 71 01/28/17 11:38 98.4 18 119/57 98 01/28/17 08:15 21 01/28/17 01:12 Nasal Cannula 2.0 Intake and Output 01/27/17 01/27/17 01/28/17 15:00 23:00 07:00 Intake Total 500 ml 800 ml Output Total 4000 ml Balance -3500 ml 800 ml Exam Review of Systems: CONSTITUTIONAL: No fevers, chills. PULMONARY: mild sob CARDIOVASCULAR: No chest pain/palpitations GASTROINTESTINAL: No nausea/vomiting. GENITOURINARY: No hematuria/dysuria. MUSCULOSKELETAL: No myagias/arthalgias. PSYCHIATRIC: The patient denies depression. NEUROLOGIC: No weakness Constitutional: alert Psych: no complaints Head: normocephalic ENMT: mucosa pink and moist Neck: jvd (9 cm water), supple Respiratory: diminished breath sounds (at bases/B) Cardiovascular: regular rate and rhythm Gastrointestinal: non-tender, soft Musculoskeletal: muscle weakness (mld generalized) Extremities: pitting pedal edema (bilaterall) Neurological: other (No focval deficits) Results Result Diagram: 01/28/17 0725 01/28/17 0725 Results 24 hrs Laboratory Tests Test 01/27/17 17:47 01/27/17 20:55 01/28/17 07:25 01/28/17 08:07 Bedside Glucose 203 177 277 H White Blood Count 4.9 Red Blood Count 2.72 L Hemoglobin 8.9 L Hematocrit 29.0 L Mean Corpuscular Volume 106.6 H Mean Corpuscular Hemoglobin 32.7 Mean Corpuscular Hemoglobin Concent 30.7 L Red Cell Distribution Width 14.6 H Platelet Count 201 Mean Platelet Volume 11.2 H Neutrophils % 58.2 Lymphocytes % 24.7 Monocytes % 10.6 Eosinophils % 5.7 Basophils % 0.4 Nucleated Red Blood Cells % 0.0 Neutrophils # 2.8 Lymphocytes # 1.2 Monocytes # 0.5 Eosinophils # 0.3 Basophils # 0.0 Nucleated Red Blood Cells # 0.0 Sodium Level 139 Potassium Level 5.7 H Chloride Level 99 Carbon Dioxide Level 27 Anion Gap 19 H Blood Urea Nitrogen 73 #H Creatinine 6.87 #H Glucose Level 209 Calcium Level 8.4 Test 01/28/17 11:46 Bedside Glucose 185 Medications Medications Current Medications Ondansetron HCl (Zofran Inj) 4 mg Q6H PRN IV NAUSEA AND/OR VOMITING Last administered on 01/17/17 20:45; Admin Dose 4 MG; Start 01/13/17 at 18:30 Nitroglycerin (Nitroglycerin (Sl Tab) 0.4 Mg) 1 tab Q5M PRN SL CHEST PAIN; Start 01/13/17 at 18:30 Acetaminophen (Tylenol Tab) 650 mg Q6H PRN PO PAIN LEVEL 1-3 OR FEVER Last administered on 01/27/17 05:19; Admin Dose 650 MG; Start 01/13/17 at 18:30 Morphine Sulfate (morphine) 2 mg Q4H PRN IV PAIN LEVEL 7-10 Last administered on 01/28/17 11:40; Admin Dose 2 MG; Start 01/13/17 at 18:30 Famotidine (Pepcid) 10 mg HS PO Last administered on 01/27/17 21:31; Admin Dose 10 MG; Start 01/13/17 at 21:00 Heparin Sodium (Porcine) (Heparin (5000 Units/0.5 ml)) 5,000 unit Q12 SC Last administered on 01/28/17 08:12; Admin Dose 5,000 UNIT; Start 01/13/17 at 21: 00 Amlodipine Besylate (Norvasc) 10 mg DAILY PO Last administered on 01/28/17 08 :13; Admin Dose 10 MG; Start 01/14/17 at 09:00 Aspirin (Halfprin) 81 mg DAILY PO Last administered on 01/28/17 08:12; Admin Dose 81 MG; Start 01/14/17 at 09:00 Atorvastatin Calcium (Lipitor) 40 mg QHS PO Last administered on 01/27/17 21: 30; Admin Dose 40 MG; Start 01/13/17 at 21:00 Clonidine (Catapres) 0.2 mg TID PRN PO FOR SBP >160 Last administered on 16:43; Admin Dose 0.2 MG; Start 01/13/17 at 19:00 Clopidogrel Bisulfate (plaVIX) 75 mg DAILY PO Last administered on 01/28/17 08:12; Admin Dose 75 MG; Start 01/14/17 at 09:00 Folic Acid (Folic Acid) 1 mg DAILY PO Last administered on 01/28/17 08:12; Admin Dose 1 MG; Start 01/14/17 at 09:00 Gabapentin (Neurontin) 300 mg BID PO Last administered on 01/28/17 08:12; Admin Dose 300 MG; Start 01/13/17 at 21:00 Linagliptin (Tradjenta) 5 mg DAILY PO Last administered on 01/28/17 08:13; Admin Dose 5 MG; Start 01/14/17 at 09:00 Multivit/Ca Carb/ B Cmplx/FA/Prenat (Addie-Mikayla) 1 tab DAILY PO Last administered on 01/28/17 08:12; Admin Dose 1 TAB; Start 01/14/17 at 09:00 Polyethylene Glycol (Miralax) 17 gm BID PO Last administered on 01/27/17 08: 49; Admin Dose 17 GM; Start 01/13/17 at 21:00 Miscellaneous Information 1 ea NOTE XX ; Start 01/13/17 at 19:00 Glucose (Glutose) 15 gm Q15M PRN PO DECREASED GLUCOSE; Start 01/13/17 at 19:00 Glucose (Glutose) 22.5 gm Q15M PRN PO DECREASED GLUCOSE; Start 01/13/17 at 19: 00 Dextrose (D50w Syringe) 25 ml Q15M PRN IV DECREASED GLUCOSE; Start 01/13/17 at 19:00 Dextrose (D50w Syringe) 50 ml Q15M PRN IV DECREASED GLUCOSE; Start 01/13/17 at 19:00 Glucagon (Glucagen) 1 mg Q15M PRN IM DECREASED GLUCOSE; Start 01/13/17 at 19: 00 Glucose (Glutose) 15 gm Q15M PRN BUCCAL DECREASED GLUCOSE; Start 01/13/17 at 19:00 Morphine Sulfate (morphine) 2 mg Q4H PRN IV PAIN Last administered on 23:00; Admin Dose 2 MG; Start 01/14/17 at 01:00 Promethazine HCl/ Codeine (Phenergan/ Codeine) 5 ml Q4H PRN PO COUGH Last administered on 01/28/17 04:17; Admin Dose 5 ML; Start 01/14/17 at 12:30 Hydrocodone Bit/ Homatropine Methylb (Hycodan Liquid) 5 ml Q6 PRN PO COUGH Last administered on 01/26/17 05:17; Admin Dose 5 ML; Start 01/14/17 at 13:30 Diagnostic Test (Pha) (Accu-Chek) 1 ea 02 XX Last administered on 01/24/17 04 :00; Admin Dose 1 EA; Start 01/15/17 at 02:00 Carvedilol (Coreg) 6.25 mg BID PO Last administered on 01/28/17 08:13; Admin Dose 6.25 MG; Start 01/21/17 at 21:00 Lorazepam (Ativan) 0.5 mg Q4 PRN IV ANXIETY Last administered on 01/28/17 07: 12; Admin Dose 0.5 MG; Start 01/27/17 at 13:00 GERTRUDIS GUILLERMO Jan 28, 2017 13:10
--- NOTE | 2017-01-28 13:53 | PN ---
Date/Time of Note Date/Time of Note DATE: 01/28/17 TIME: 13:41 Assessment/Plan VTE Prophylaxis VTE Prophylaxis Intervention: SCD's Lines/Catheters IV Catheter Type (from [facility]): [facility] Urinary Cath still in place: No Assessment/Plan Chief Complaint/Hosp Course Hyperkalemia, patient is undergoing hemodialysis, complains of occasional shortness of breath. Assessment/Plan -Atrial fibrillation, currently in sinus rhythm, continue Eliquiz. Dr. William is following in cardiology consultation. -Acute respiratory failure secondary to pulmonary edema, resolving. Dr Cole is following in pulmonology consultation. -Hemodialysis dependent end-stage renal disease, Dr. Garcia is following in nephrology consultation, continue hemodialysis. Fluid restriction. -Status post fistulogram, status post left upper extremity anastomosis angioplasty by Dr. Ruano on 01/19. Status post left upper extremity fistulogram and coil embolization on 01/23. -E. coli UTI, s/p treatment. -Diabetes mellitus type 2, hemoglobin A1c 6.5, continue Tradjenta Lantus and NovoLog -HTN -Severe PVD, with multiple vascular intervention including a left lower extremity bypass. -S/p orthopedic procedures to RUE with metal prosthetic after bone Fx -Poor medical compliance Further recommendations based on clinical course. Plan of care is discussed with Dr. Cordero Problems: Exam/Review of Systems Vital Signs Vitals Vital Signs Date Time Temp Pulse Resp B/P Pulse Ox O2 Delivery O2 Flow Rate FiO2 01/28/17 12:05 71 01/28/17 11:38 98.4 18 119/57 98 01/28/17 08:15 21 01/28/17 01:12 Nasal Cannula 2.0 Intake and Output 01/27/17 01/27/17 01/28/17 15:00 23:00 07:00 Intake Total 500 ml 800 ml Output Total 4000 ml Balance -3500 ml 800 ml Exam Constitutional: alert, oriented Respiratory: diminished breath sounds Cardiovascular: nl pulses, regular rate and rhythm Gastrointestinal: non-tender, soft Neurological: nl mental status Results Result Diagram: 01/28/17 0725 01/28/17 0725 Results 24 hrs Laboratory Tests Test 01/27/17 17:47 01/27/17 20:55 01/28/17 07:25 01/28/17 08:07 Bedside Glucose 203 177 277 H White Blood Count 4.9 Red Blood Count 2.72 L Hemoglobin 8.9 L Hematocrit 29.0 L Mean Corpuscular Volume 106.6 H Mean Corpuscular Hemoglobin 32.7 Mean Corpuscular Hemoglobin Concent 30.7 L Red Cell Distribution Width 14.6 H Platelet Count 201 Mean Platelet Volume 11.2 H Neutrophils % 58.2 Lymphocytes % 24.7 Monocytes % 10.6 Eosinophils % 5.7 Basophils % 0.4 Nucleated Red Blood Cells % 0.0 Neutrophils # 2.8 Lymphocytes # 1.2 Monocytes # 0.5 Eosinophils # 0.3 Basophils # 0.0 Nucleated Red Blood Cells # 0.0 Sodium Level 139 Potassium Level 5.7 H Chloride Level 99 Carbon Dioxide Level 27 Anion Gap 19 H Blood Urea Nitrogen 73 #H Creatinine 6.87 #H Glucose Level 209 Calcium Level 8.4 Test 01/28/17 11:46 Bedside Glucose 185 Medications Medications Current Medications Ondansetron HCl (Zofran Inj) 4 mg Q6H PRN IV NAUSEA AND/OR VOMITING Last administered on 01/17/17 20:45; Admin Dose 4 MG; Start 01/13/17 at 18:30 Nitroglycerin (Nitroglycerin (Sl Tab) 0.4 Mg) 1 tab Q5M PRN SL CHEST PAIN; Start 01/13/17 at 18:30 Acetaminophen (Tylenol Tab) 650 mg Q6H PRN PO PAIN LEVEL 1-3 OR FEVER Last administered on 01/27/17 05:19; Admin Dose 650 MG; Start 01/13/17 at 18:30 Morphine Sulfate (morphine) 2 mg Q4H PRN IV PAIN LEVEL 7-10 Last administered on 01/28/17 11:40; Admin Dose 2 MG; Start 01/13/17 at 18:30 Famotidine (Pepcid) 10 mg HS PO Last administered on 01/27/17 21:31; Admin Dose 10 MG; Start 01/13/17 at 21:00 Amlodipine Besylate (Norvasc) 10 mg DAILY PO Last administered on 01/28/17 08 :13; Admin Dose 10 MG; Start 01/14/17 at 09:00 Atorvastatin Calcium (Lipitor) 40 mg QHS PO Last administered on 01/27/17 21: 30; Admin Dose 40 MG; Start 01/13/17 at 21:00 Clonidine (Catapres) 0.2 mg TID PRN PO FOR SBP >160 Last administered on 16:43; Admin Dose 0.2 MG; Start 01/13/17 at 19:00 Clopidogrel Bisulfate (plaVIX) 75 mg DAILY PO Last administered on 01/28/17 08:12; Admin Dose 75 MG; Start 01/14/17 at 09:00 Folic Acid (Folic Acid) 1 mg DAILY PO Last administered on 01/28/17 08:12; Admin Dose 1 MG; Start 01/14/17 at 09:00 Gabapentin (Neurontin) 300 mg BID PO Last administered on 01/28/17 08:12; Admin Dose 300 MG; Start 01/13/17 at 21:00 Linagliptin (Tradjenta) 5 mg DAILY PO Last administered on 01/28/17 08:13; Admin Dose 5 MG; Start 01/14/17 at 09:00 Multivit/Ca Carb/ B Cmplx/FA/Prenat (Addie-Mikayla) 1 tab DAILY PO Last administered on 01/28/17 08:12; Admin Dose 1 TAB; Start 01/14/17 at 09:00 Polyethylene Glycol (Miralax) 17 gm BID PO Last administered on 01/27/17 08: 49; Admin Dose 17 GM; Start 01/13/17 at 21:00 Miscellaneous Information 1 ea NOTE XX ; Start 01/13/17 at 19:00 Glucose (Glutose) 15 gm Q15M PRN PO DECREASED GLUCOSE; Start 01/13/17 at 19:00 Glucose (Glutose) 22.5 gm Q15M PRN PO DECREASED GLUCOSE; Start 01/13/17 at 19: 00 Dextrose (D50w Syringe) 25 ml Q15M PRN IV DECREASED GLUCOSE; Start 01/13/17 at 19:00 Dextrose (D50w Syringe) 50 ml Q15M PRN IV DECREASED GLUCOSE; Start 01/13/17 at 19:00 Glucagon (Glucagen) 1 mg Q15M PRN IM DECREASED GLUCOSE; Start 01/13/17 at 19: 00 Glucose (Glutose) 15 gm Q15M PRN BUCCAL DECREASED GLUCOSE; Start 01/13/17 at 19:00 Morphine Sulfate (morphine) 2 mg Q4H PRN IV PAIN Last administered on 23:00; Admin Dose 2 MG; Start 01/14/17 at 01:00 Promethazine HCl/ Codeine (Phenergan/ Codeine) 5 ml Q4H PRN PO COUGH Last administered on 01/28/17 04:17; Admin Dose 5 ML; Start 01/14/17 at 12:30 Hydrocodone Bit/ Homatropine Methylb (Hycodan Liquid) 5 ml Q6 PRN PO COUGH Last administered on 01/26/17 05:17; Admin Dose 5 ML; Start 01/14/17 at 13:30 Diagnostic Test (Pha) (Accu-Chek) 1 ea 02 XX Last administered on 01/24/17 04 :00; Admin Dose 1 EA; Start 01/15/17 at 02:00 Carvedilol (Coreg) 6.25 mg BID PO Last administered on 01/28/17 08:13; Admin Dose 6.25 MG; Start 01/21/17 at 21:00 Lorazepam (Ativan) 0.5 mg Q4 PRN IV ANXIETY Last administered on 01/28/17 07: 12; Admin Dose 0.5 MG; Start 01/27/17 at 13:00 Apixaban (Eliquis) 2.5 mg BID PO ; Start 01/28/17 at 21:00 ANTHONY DUPREE Jan 28, 2017 13:51
--- NOTE | 2017-01-28 14:28 | CONS ---
DATE OF ADMISSION: 01/13/2017 DATE OF CONSULTATION: PULMONARY CONSULTATION REASON FOR CONSULTATION: Chest pain, shortness of breath. HISTORY OF PRESENT ILLNESS: A 56-year-old lady with end-stage renal failure on hemodialysis, signif icant tobacco history, previously 2 packs per day for 30+ years, quit smoking 8 years ago, originall y admitted for volume overload and hypoxemia which improve significantly following aggressive volume removal with hemodialysis. The patient states she still experiences pain in her lungs are after di alysis use time. She has orthopnea and PND. No hemoptysis, hematemesis. No weight loss. No recen t travel history. DIAGNOSTIC STUDIES: CT of the chest on admission was performed demonstrates no focal consolidation, pleural effusion, or pneumothorax, small 2 mm nodule; doubt it is of any significance. PAST MEDICAL HISTORY: As above. MEDICATIONS: Per chart. ALLERGIES: NONE. SOCIAL HISTORY: Ex-smoker, no alcohol, no history of drug use. FAMILY HISTORY: Noncontributory. SYSTEMS REVIEW: A 12-point review of systems was negative other than that mentioned above. PHYSICAL EXAMINATION: GENERAL: Obese lady, bed bound, comfortable, in no acute distress. VITAL SIGNS: Temperature 98, pulse is 69, blood pressure 119/57, O2 saturation 96% on 2 liters. NECK: Supple. No JVD or lymphadenopathy. CARDIAC: S1, S2, no added sounds or murmurs. CHEST: Diminished air entry bilaterally. ABDOMEN: Soft, nontender. No guarding, no rebound. EXTREMITIES: No cyanosis, clubbing, or edema. NEUROLOGIC: Generalized weakness. LABORATORY DATA: White count 4.9, hemoglobin 8.9, platelets of 201. BUN 73, creatinine 6.87. ABG: PaO2 was 69 on room air. IMPRESSION AND PLAN: 1. Hypoxemia, likely secondary to underlying chronic bronchitis and mild emphysema. 2. Bibasilar atelectasis with hypoventilation. 3. Probable obstructive sleep apnea. 4. Volume overload from underlying renal failure, although these are likely contributing to her hyp oxemia in addition to immobility, I recommend: 1. Continue volume removal. 2. Bronchodilators. 3. Encourage out of bed. 4. Outpatient sleep study. Dictated By: DIONISIO LANGE/MAURICIO Conf#: [id number] DID#: [id number]
[2017-01-28] MEDS: HYDROCODONE/APAP (7.5/325) TAB PO PRN (20:21)
[2017-01-28] MEDS: ATORVASTATIN 40 MG TAB PO SCH (20:22)
[2017-01-28] MEDS: FAMOTIDINE 20 MG TAB PO SCH (20:22)
[2017-01-28] MEDS: APIXABAN 5 MG TABLET PO SCH (20:23)
[2017-01-28] MEDS: HYDROCODONE/HOMATROPINE 5ML CUP PO PRN (22:23)
[2017-01-29] VITALS (11 sets, daily range): BP systolic 138–160; BP diastolic 62–73; PULSE 68–79; RESP 18–20
[2017-01-29] MEDS: PROMETHAZINE/CODEINE 5ML CUP PO PRN (02:12)
[2017-01-29] MEDS: morphine 2 MG INJ IV PRN ×5 (02:13→20:09)
[2017-01-29] MEDS: LEVALBUTEROL (NEB) 0.63 MG/3 ML AMP HHN SCH ×4 (02:23→19:45)
[2017-01-29] MEDS: ACCU-CHEK XX SCH (02:25)
[2017-01-29] MEDS: HYDROCODONE/HOMATROPINE 5ML CUP PO PRN ×2 (06:31→16:12)
[2017-01-29 06:52] LABS: BASOPHILS % 0.2 % (0.0-2.0); EOSINOPHILS # 0.4 10^3/ul (0.0-0.5); EOSINOPHILS % 8.1 % (0.0-7.0); HEMATOCRIT 25.1 % (37.0-47.0); HEMOGLOBIN 7.9 g/dl (12.0-16.0); LYMPHOCYTES # 1.3 10^3/ul (0.8-2.9); LYMPHOCYTES % 28.5 % (15.0-51.0); MEAN CORPUSCULAR HEMOGLOBIN 33.1 pg (29.0-33.0); MEAN CORPUSCULAR HGB CONC 31.5 g/dl (32.0-37.0); MEAN PLATELET VOLUME 11.1 fl (7.4-10.4); MONOCYTE # 0.6 10^3/ul (0.3-0.9); MONOCYTES % 12.8 % (0.0-11.0); NEUTROPHIL # 2.3 10^3/ul (1.6-7.5); PLATELET COUNT 177 10^3/UL (140-415); RED BLOOD COUNT 2.39 10^6/ul (4.20-5.40); RED CELL DISTRIBUTION WIDTH 14.6 % (11.5-14.5); WHITE BLOOD COUNT 4.7 10^3/ul (4.8-10.8)
[2017-01-29 07:22] LABS: CREATININE 6.16 mg/dl (0.44-1.00)
[2017-01-29] MEDS: POLYETHYLENE GLYCOL 17 GM PACKET PO SCH ×2 (08:04→20:08)
[2017-01-29] MEDS: GABAPENTIN 300 MG CAP PO SCH ×2 (08:05→20:07)
[2017-01-29] MEDS: SEVELAMER CARBONATE 0.8 GM PKT PO SCH ×3 (08:05→17:18)
[2017-01-29] MEDS: CLOPIDOGREL 75 MG TAB PO SCH (08:05)
[2017-01-29] MEDS: PANTOPRAZOLE (EC) 40 MG TAB PO SCH (08:05)
[2017-01-29] MEDS: APIXABAN 5 MG TABLET PO SCH ×2 (08:05→20:08)
[2017-01-29] MEDS: FOLIC ACID 1 MG TAB PO SCH (08:05)
[2017-01-29] MEDS: LINAGLIPTIN 5 MG TABLET PO SCH (08:05)
[2017-01-29] MEDS: AMLODIPINE 10 MG TAB PO SCH (08:06)
[2017-01-29] MEDS: LORAZEPAM 2 MG INJ IV PRN ×3 (08:07→20:07)
[2017-01-29] MEDS: INSULIN ASPART [NOVOLOG] 3 ML PEN SC SCH ×7 (08:10→20:12)
[2017-01-29] MEDS: MULTIVIT/CA CARB/B CMPLX/FA TAB PO SCH (08:13)
[2017-01-29] MEDS: ACETAMINOPHEN 325 MG TAB PO PRN (08:14)
[2017-01-29] MEDS: HYDROCODONE/APAP (7.5/325) TAB PO PRN (09:47)
--- NOTE | 2017-01-29 10:28 | CONS ---
Date/Time of Note Date/Time of Note DATE: 01/29/17 TIME: 10:28 Assessment/Plan Assessment/Plan Chief Complaint/Hosp Course 56 y/o with 1. Fluid overload, uncontrolled hypertension.BETTER 2. End-stage renal disease. 3. Hypertension. 4. Diabetes mellitus. 5. Hyperkalemia. 6. Atherosclerotic heart disease. 7. Peripheral vascular disease. 8. History of dyslipidemia. 9 History of pneumonia. 10. History of leg cellulitis. 11. History of wound dehiscence. 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 14 SOB likely secondary to Pul edema vs Pneumonia with CHF due to diastolic dysfunction Plan - HD tmw - Strict Fluid restriction to 1.5 L - Assess daily for HD needs - Ativan - c/w Coreg/amlodipine - GI and Dvt prophylaxsis - Labs am - Consider dc tmw after HD Problems: Consultation Date/Type/Reason Admit Date/Time Jan 13, 2017 at 18:04 Type of Consultation: Renal Referring Provider: KIRSTIN SPANN MD 24 HR Interval Summary Free Text/Dictation Overall feels better Exam/Review of Systems Vital Signs Vitals Vital Signs Date Time Temp Pulse Resp B/P Pulse Ox O2 Delivery O2 Flow Rate FiO2 01/29/17 08:41 21 01/29/17 08:10 79 01/29/17 07:47 97.6 20 142/65 95 01/28/17 01:12 Nasal Cannula 2.0 Intake and Output 01/28/17 01/28/17 01/29/17 15:00 23:00 07:00 Intake Total 300 ml 700 ml 450 ml Output Total 3300 ml Balance -3000 ml 700 ml 450 ml Exam Gen: Awake and alert Respiratory: clear to auscultation Cardiovascular: regular rate and rhythm Gastrointestinal: bowel sounds (+), soft Extremities: edema (++) Left ue fistula Results Result Diagram: 01/29/17 0601/29/17 06 Results 24 hrs Laboratory Tests Test 01/28/17 11:46 01/28/17 17:45 01/28/17 20:27 01/29/17 02:15 Bedside Glucose 185 238 H 214 218 Test 01/29/17 06:01 01/29/17 08:03 White Blood Count 4.7 L Red Blood Count 2.39 L Hemoglobin 7.9 L Hematocrit 25.1 L Mean Corpuscular Volume 105.0 H Mean Corpuscular Hemoglobin 33.1 H Mean Corpuscular Hemoglobin Concent 31.5 L Red Cell Distribution Width 14.6 H Platelet Count 177 Mean Platelet Volume 11.1 H Neutrophils % 50.0 Lymphocytes % 28.5 Monocytes % 12.8 H Eosinophils % 8.1 H Basophils % 0.2 Nucleated Red Blood Cells % 0.0 Neutrophils # 2.3 Lymphocytes # 1.3 Monocytes # 0.6 Eosinophils # 0.4 Basophils # 0.0 Nucleated Red Blood Cells # 0.0 Sodium Level 141 Potassium Level 5.0 Chloride Level 100 Carbon Dioxide Level 28 Anion Gap 18 H Blood Urea Nitrogen 68 H Creatinine 6.16 H Glucose Level 181 Calcium Level 8.0 L Bedside Glucose 234 H Medications Medications Current Medications Ondansetron HCl (Zofran Inj) 4 mg Q6H PRN IV NAUSEA AND/OR VOMITING Last administered on 01/17/17 20:45; Admin Dose 4 MG; Start 01/13/17 at 18:30 Nitroglycerin (Nitroglycerin (Sl Tab) 0.4 Mg) 1 tab Q5M PRN SL CHEST PAIN; Start 01/13/17 at 18:30 Acetaminophen (Tylenol Tab) 650 mg Q6H PRN PO PAIN LEVEL 1-3 OR FEVER Last administered on 01/29/17 08:14; Admin Dose 650 MG; Start 01/13/17 at 18:30 Morphine Sulfate (morphine) 2 mg Q4H PRN IV PAIN LEVEL 7-10 Last administered on 01/29/17 06:31; Admin Dose 2 MG; Start 01/13/17 at 18:30 Famotidine (Pepcid) 10 mg HS PO Last administered on 01/28/17 20:22; Admin Dose 10 MG; Start 01/13/17 at 21:00 Amlodipine Besylate (Norvasc) 10 mg DAILY PO Last administered on 01/29/17 08 :06; Admin Dose 10 MG; Start 01/14/17 at 09:00 Atorvastatin Calcium (Lipitor) 40 mg QHS PO Last administered on 01/28/17 20: 22; Admin Dose 40 MG; Start 01/13/17 at 21:00 Clonidine (Catapres) 0.2 mg TID PRN PO FOR SBP >160 Last administered on 16:43; Admin Dose 0.2 MG; Start 01/13/17 at 19:00 Clopidogrel Bisulfate (plaVIX) 75 mg DAILY PO Last administered on 01/29/17 08:05; Admin Dose 75 MG; Start 01/14/17 at 09:00 Folic Acid (Folic Acid) 1 mg DAILY PO Last administered on 01/29/17 08:05; Admin Dose 1 MG; Start 01/14/17 at 09:00 Gabapentin (Neurontin) 300 mg BID PO Last administered on 01/29/17 08:05; Admin Dose 300 MG; Start 01/13/17 at 21:00 Linagliptin (Tradjenta) 5 mg DAILY PO Last administered on 01/29/17 08:05; Admin Dose 5 MG; Start 01/14/17 at 09:00 Multivit/Ca Carb/ B Cmplx/FA/Prenat (Addie-Mikayla) 1 tab DAILY PO Last administered on 01/29/17 08:13; Admin Dose 1 TAB; Start 01/14/17 at 09:00 Polyethylene Glycol (Miralax) 17 gm BID PO Last administered on 01/29/17 08: 04; Admin Dose 17 GM; Start 01/13/17 at 21:00 Miscellaneous Information 1 ea NOTE XX ; Start 01/13/17 at 19:00 Glucose (Glutose) 15 gm Q15M PRN PO DECREASED GLUCOSE; Start 01/13/17 at 19:00 Glucose (Glutose) 22.5 gm Q15M PRN PO DECREASED GLUCOSE; Start 01/13/17 at 19: 00 Dextrose (D50w Syringe) 25 ml Q15M PRN IV DECREASED GLUCOSE; Start 01/13/17 at 19:00 Dextrose (D50w Syringe) 50 ml Q15M PRN IV DECREASED GLUCOSE; Start 01/13/17 at 19:00 Glucagon (Glucagen) 1 mg Q15M PRN IM DECREASED GLUCOSE; Start 01/13/17 at 19: 00 Glucose (Glutose) 15 gm Q15M PRN BUCCAL DECREASED GLUCOSE; Start 01/13/17 at 19:00 Morphine Sulfate (morphine) 2 mg Q4H PRN IV PAIN Last administered on 02:13; Admin Dose 2 MG; Start 01/14/17 at 01:00 Promethazine HCl/ Codeine (Phenergan/ Codeine) 5 ml Q4H PRN PO COUGH Last administered on 01/29/17 02:12; Admin Dose 5 ML; Start 01/14/17 at 12:30 Hydrocodone Bit/ Homatropine Methylb (Hycodan Liquid) 5 ml Q6 PRN PO COUGH Last administered on 01/29/17 06:31; Admin Dose 5 ML; Start 01/14/17 at 13:30 Diagnostic Test (Pha) (Accu-Chek) 1 ea 02 XX Last administered on 01/29/17 02 :25; Admin Dose 1 EA; Start 01/15/17 at 02:00 Carvedilol (Coreg) 6.25 mg BID PO Last administered on 01/29/17 08:06; Admin Dose 6.25 MG; Start 01/21/17 at 21:00 Lorazepam (Ativan) 0.5 mg Q4 PRN IV ANXIETY Last administered on 01/29/17 08: 07; Admin Dose 0.5 MG; Start 01/27/17 at 13:00 Apixaban (Eliquis) 2.5 mg BID PO Last administered on 01/29/17 08:05; Admin Dose 2.5 MG; Start 01/28/17 at 21:00 Acetaminophen/ Hydrocodone Bitart (Gilman (7.5-325)) 1 tab Q6H PRN PO pain Last administered on 01/29/17 09:47; Admin Dose 1 TAB; Start 01/28/17 at 18:30 DARELL JAMES MD Jan 29, 2017 10:28
--- NOTE | 2017-01-29 15:16 | PN ---
Date/Time of Note Date/Time of Note DATE: 01/29/17 TIME: 15:16 Assessment/Plan Lines/Catheters IV Catheter Type (from [facility]): Saline Lock Urinary Cath still in place: No Assessment/Plan Assessment/Plan -Atrial fibrillation, currently in sinus rhythm, continue Eliquiz. Dr. William is following in cardiology consultation. -Acute respiratory failure secondary to pulmonary edema, resolving. Dr Cole is following in pulmonology consultation. -Hemodialysis dependent end-stage renal disease, Dr. Garcia is following in nephrology consultation, continue hemodialysis. Fluid restriction. -Status post fistulogram, status post left upper extremity anastomosis angioplasty by Dr. Ruano on 01/19. Status post left upper extremity fistulogram and coil embolization on 01/23. -E. coli UTI, s/p treatment. -Diabetes mellitus type 2, hemoglobin A1c 6.5, continue Tradjenta Lantus and NovoLog -HTN -Severe PVD, with multiple vascular intervention including a left lower extremity bypass. -S/p orthopedic procedures to RUE with metal prosthetic after bone Fx -Poor medical compliance Further recommendations based on clinical course. Plan of care is discussed with Dr. Cordero Exam/Review of Systems Vital Signs Vitals Vital Signs Date Time Temp Pulse Resp B/P Pulse Ox O2 Delivery O2 Flow Rate FiO2 01/29/17 13:27 78 18 Nasal Cannula 3.0 01/29/17 11:38 97.8 139/65 95 01/29/17 08:41 21 Intake and Output 01/28/17 01/28/17 01/29/17 15:00 23:00 07:00 Intake Total 300 ml 700 ml 450 ml Output Total 3300 ml Balance -3000 ml 700 ml 450 ml Results Result Diagram: 01/29/17 0601 01/29/17 0601 Results 24 hrs Laboratory Tests Test 01/28/17 17:45 01/28/17 20:27 01/29/17 02:15 01/29/17 06:01 Bedside Glucose 238 H 214 218 White Blood Count 4.7 L Red Blood Count 2.39 L Hemoglobin 7.9 L Hematocrit 25.1 L Mean Corpuscular Volume 105.0 H Mean Corpuscular Hemoglobin 33.1 H Mean Corpuscular Hemoglobin Concent 31.5 L Red Cell Distribution Width 14.6 H Platelet Count 177 Mean Platelet Volume 11.1 H Neutrophils % 50.0 Lymphocytes % 28.5 Monocytes % 12.8 H Eosinophils % 8.1 H Basophils % 0.2 Nucleated Red Blood Cells % 0.0 Neutrophils # 2.3 Lymphocytes # 1.3 Monocytes # 0.6 Eosinophils # 0.4 Basophils # 0.0 Nucleated Red Blood Cells # 0.0 Sodium Level 141 Potassium Level 5.0 Chloride Level 100 Carbon Dioxide Level 28 Anion Gap 18 H Blood Urea Nitrogen 68 H Creatinine 6.16 H Glucose Level 181 Calcium Level 8.0 L Test 01/29/17 08:03 01/29/17 11:49 Bedside Glucose 234 H 145 Medications Medications Current Medications Ondansetron HCl (Zofran Inj) 4 mg Q6H PRN IV NAUSEA AND/OR VOMITING Last administered on 01/17/17 20:45; Admin Dose 4 MG; Start 01/13/17 at 18:30 Nitroglycerin (Nitroglycerin (Sl Tab) 0.4 Mg) 1 tab Q5M PRN SL CHEST PAIN; Start 01/13/17 at 18:30 Acetaminophen (Tylenol Tab) 650 mg Q6H PRN PO PAIN LEVEL 1-3 OR FEVER Last administered on 01/29/17 08:14; Admin Dose 650 MG; Start 01/13/17 at 18:30 Morphine Sulfate (morphine) 2 mg Q4H PRN IV PAIN LEVEL 7-10 Last administered on 01/29/17 11:50; Admin Dose 2 MG; Start 01/13/17 at 18:30 Famotidine (Pepcid) 10 mg HS PO Last administered on 01/28/17 20:22; Admin Dose 10 MG; Start 01/13/17 at 21:00 Amlodipine Besylate (Norvasc) 10 mg DAILY PO Last administered on 01/29/17 08 :06; Admin Dose 10 MG; Start 01/14/17 at 09:00 Atorvastatin Calcium (Lipitor) 40 mg QHS PO Last administered on 01/28/17 20: 22; Admin Dose 40 MG; Start 01/13/17 at 21:00 Clonidine (Catapres) 0.2 mg TID PRN PO FOR SBP >160 Last administered on 16:43; Admin Dose 0.2 MG; Start 01/13/17 at 19:00 Clopidogrel Bisulfate (plaVIX) 75 mg DAILY PO Last administered on 01/29/17 08:05; Admin Dose 75 MG; Start 01/14/17 at 09:00 Folic Acid (Folic Acid) 1 mg DAILY PO Last administered on 01/29/17 08:05; Admin Dose 1 MG; Start 01/14/17 at 09:00 Gabapentin (Neurontin) 300 mg BID PO Last administered on 01/29/17 08:05; Admin Dose 300 MG; Start 01/13/17 at 21:00 Linagliptin (Tradjenta) 5 mg DAILY PO Last administered on 01/29/17 08:05; Admin Dose 5 MG; Start 01/14/17 at 09:00 Multivit/Ca Carb/ B Cmplx/FA/Prenat (Addie-Mikayla) 1 tab DAILY PO Last administered on 01/29/17 08:13; Admin Dose 1 TAB; Start 01/14/17 at 09:00 Polyethylene Glycol (Miralax) 17 gm BID PO Last administered on 01/29/17 08: 04; Admin Dose 17 GM; Start 01/13/17 at 21:00 Miscellaneous Information 1 ea NOTE XX ; Start 01/13/17 at 19:00 Glucose (Glutose) 15 gm Q15M PRN PO DECREASED GLUCOSE; Start 01/13/17 at 19:00 Glucose (Glutose) 22.5 gm Q15M PRN PO DECREASED GLUCOSE; Start 01/13/17 at 19: 00 Dextrose (D50w Syringe) 25 ml Q15M PRN IV DECREASED GLUCOSE; Start 01/13/17 at 19:00 Dextrose (D50w Syringe) 50 ml Q15M PRN IV DECREASED GLUCOSE; Start 01/13/17 at 19:00 Glucagon (Glucagen) 1 mg Q15M PRN IM DECREASED GLUCOSE; Start 01/13/17 at 19: 00 Glucose (Glutose) 15 gm Q15M PRN BUCCAL DECREASED GLUCOSE; Start 01/13/17 at 19:00 Morphine Sulfate (morphine) 2 mg Q4H PRN IV PAIN Last administered on 02:13; Admin Dose 2 MG; Start 01/14/17 at 01:00 Promethazine HCl/ Codeine (Phenergan/ Codeine) 5 ml Q4H PRN PO COUGH Last administered on 01/29/17 02:12; Admin Dose 5 ML; Start 01/14/17 at 12:30 Hydrocodone Bit/ Homatropine Methylb (Hycodan Liquid) 5 ml Q6 PRN PO COUGH Last administered on 01/29/17 06:31; Admin Dose 5 ML; Start 01/14/17 at 13:30 Diagnostic Test (Pha) (Accu-Chek) 1 ea 02 XX Last administered on 01/29/17 02 :25; Admin Dose 1 EA; Start 01/15/17 at 02:00 Carvedilol (Coreg) 6.25 mg BID PO Last administered on 01/29/17 08:06; Admin Dose 6.25 MG; Start 01/21/17 at 21:00 Lorazepam (Ativan) 0.5 mg Q4 PRN IV ANXIETY Last administered on 01/29/17 08: 07; Admin Dose 0.5 MG; Start 01/27/17 at 13:00 Apixaban (Eliquis) 2.5 mg BID PO Last administered on 01/29/17 08:05; Admin Dose 2.5 MG; Start 01/28/17 at 21:00 Acetaminophen/ Hydrocodone Bitart ([place] (7.5-325)) 1 tab Q6H PRN PO pain Last administered on 01/29/17 09:47; Admin Dose 1 TAB; Start 01/28/17 at 18:30 VIOLET RUDOLPH Jan 29, 2017 15:16
[2017-01-29] MEDS: DOCUSATE SODIUM 100 MG CAP PO PRN (16:12)
--- NOTE | 2017-01-29 19:02 | CONS ---
Date/Time of Note Date/Time of Note DATE: 01/29/17 TIME: 18:59 Assessment/Plan Assessment/Plan Chief Complaint/Hosp Course IMPRESSION 1. Atrial fibrillation, not on systemic anticoagulation, but on aspirin and Plavix, status post PTCA to arteriovenous (AV) fistula, with the patient having elevated CHADS-VASc score and therefore placing her at an increased risk for thromboembolic complications of atrial fibrillation and thus benefit from systemic anticoagulation if possible, and therefore, wI have changed patient to eliquis and plavix and d/c'd asa 2. Hypertension, under reasonable control. 3. Respiratory distress, improved. 4. Congestive heart failure (CHF), question diastolic versus systolic and improve volume status. 5. End-stage renal disease on hemodialysis. 6. Diabetes mellitus. 7. Peripheral arterial disease, status post lower extremity bypass. 8. Dyslipidemia. 9. Anemia, severe. Recc: -Tele -serial ecg's -Continue plavix/statin and eliquis -continue norvasc/coreg -Continue aggresive HD for volume removal -Fluid restriction Problems: Consultation Date/Type/Reason Admit Date/Time Jan 13, 2017 at 18:04 Initial Consult Date 01/21/17 Type of Consultation: cardiology Reason for Consultation AF Referring Provider: KIRSTIN SPANN MD Exam/Review of Systems Vital Signs Vitals Vital Signs Date Time Temp Pulse Resp B/P Pulse Ox O2 Delivery O2 Flow Rate FiO2 01/29/17 16:35 3.0 32 01/29/17 16:07 73 01/29/17 15:28 98.1 19 148/66 98 01/29/17 13:27 Nasal Cannula Intake and Output 01/28/17 01/28/17 01/29/17 15:00 23:00 07:00 Intake Total 300 ml 700 ml 450 ml Output Total 3300 ml Balance -3000 ml 700 ml 450 ml Exam Review of Systems: CONSTITUTIONAL: No fevers, chills. PULMONARY: No sob CARDIOVASCULAR: No chest pain/palpitations GASTROINTESTINAL: No nausea/vomiting. GENITOURINARY: No hematuria/dysuria. MUSCULOSKELETAL: No myagias/arthalgias. PSYCHIATRIC: The patient denies depression. NEUROLOGIC: No weakness Constitutional: alert, oriented Psych: no complaints Head: normocephalic ENMT: mucosa pink and moist Neck: jvd (9 cm water), supple Respiratory: diminished breath sounds Cardiovascular: regular rate and rhythm Gastrointestinal: non-tender, soft Musculoskeletal: muscle tone Extremities: pitting pedal edema (bilateral) Neurological: other (No focal deficits) Results Result Diagram: 01/29/17 0601 01/29/17 0601 Results 24 hrs Laboratory Tests Test 01/28/17 20:27 01/29/17 02:15 01/29/17 06:01 01/29/17 08:03 Bedside Glucose 214 218 234 H White Blood Count 4.7 L Red Blood Count 2.39 L Hemoglobin 7.9 L Hematocrit 25.1 L Mean Corpuscular Volume 105.0 H Mean Corpuscular Hemoglobin 33.1 H Mean Corpuscular Hemoglobin Concent 31.5 L Red Cell Distribution Width 14.6 H Platelet Count 177 Mean Platelet Volume 11.1 H Neutrophils % 50.0 Lymphocytes % 28.5 Monocytes % 12.8 H Eosinophils % 8.1 H Basophils % 0.2 Nucleated Red Blood Cells % 0.0 Neutrophils # 2.3 Lymphocytes # 1.3 Monocytes # 0.6 Eosinophils # 0.4 Basophils # 0.0 Nucleated Red Blood Cells # 0.0 Sodium Level 141 Potassium Level 5.0 Chloride Level 100 Carbon Dioxide Level 28 Anion Gap 18 H Blood Urea Nitrogen 68 H Creatinine 6.16 H Glucose Level 181 Calcium Level 8.0 L Test 01/29/17 11:49 01/29/17 17:17 Bedside Glucose 145 134 Medications Medications Current Medications Ondansetron HCl (Zofran Inj) 4 mg Q6H PRN IV NAUSEA AND/OR VOMITING Last administered on 01/17/17 20:45; Admin Dose 4 MG; Start 01/13/17 at 18:30 Nitroglycerin (Nitroglycerin (Sl Tab) 0.4 Mg) 1 tab Q5M PRN SL CHEST PAIN; Start 01/13/17 at 18:30 Acetaminophen (Tylenol Tab) 650 mg Q6H PRN PO PAIN LEVEL 1-3 OR FEVER Last administered on 01/29/17 08:14; Admin Dose 650 MG; Start 01/13/17 at 18:30 Morphine Sulfate (morphine) 2 mg Q4H PRN IV PAIN LEVEL 7-10 Last administered on 01/29/17 16:12; Admin Dose 2 MG; Start 01/13/17 at 18:30 Famotidine (Pepcid) 10 mg HS PO Last administered on 01/28/17 20:22; Admin Dose 10 MG; Start 01/13/17 at 21:00 Amlodipine Besylate (Norvasc) 10 mg DAILY PO Last administered on 01/29/17 08 :06; Admin Dose 10 MG; Start 01/14/17 at 09:00 Atorvastatin Calcium (Lipitor) 40 mg QHS PO Last administered on 01/28/17 20: 22; Admin Dose 40 MG; Start 01/13/17 at 21:00 Clonidine (Catapres) 0.2 mg TID PRN PO FOR SBP >160 Last administered on 16:43; Admin Dose 0.2 MG; Start 01/13/17 at 19:00 Clopidogrel Bisulfate (plaVIX) 75 mg DAILY PO Last administered on 01/29/17 08:05; Admin Dose 75 MG; Start 01/14/17 at 09:00 Folic Acid (Folic Acid) 1 mg DAILY PO Last administered on 01/29/17 08:05; Admin Dose 1 MG; Start 01/14/17 at 09:00 Gabapentin (Neurontin) 300 mg BID PO Last administered on 01/29/17 08:05; Admin Dose 300 MG; Start 01/13/17 at 21:00 Linagliptin (Tradjenta) 5 mg DAILY PO Last administered on 01/29/17 08:05; Admin Dose 5 MG; Start 01/14/17 at 09:00 Multivit/Ca Carb/ B Cmplx/FA/Prenat (Addie-Mikayla) 1 tab DAILY PO Last administered on 01/29/17 08:13; Admin Dose 1 TAB; Start 01/14/17 at 09:00 Polyethylene Glycol (Miralax) 17 gm BID PO Last administered on 01/29/17 08: 04; Admin Dose 17 GM; Start 01/13/17 at 21:00 Miscellaneous Information 1 ea NOTE XX ; Start 01/13/17 at 19:00 Glucose (Glutose) 15 gm Q15M PRN PO DECREASED GLUCOSE; Start 01/13/17 at 19:00 Glucose (Glutose) 22.5 gm Q15M PRN PO DECREASED GLUCOSE; Start 01/13/17 at 19: 00 Dextrose (D50w Syringe) 25 ml Q15M PRN IV DECREASED GLUCOSE; Start 01/13/17 at 19:00 Dextrose (D50w Syringe) 50 ml Q15M PRN IV DECREASED GLUCOSE; Start 01/13/17 at 19:00 Glucagon (Glucagen) 1 mg Q15M PRN IM DECREASED GLUCOSE; Start 01/13/17 at 19: 00 Glucose (Glutose) 15 gm Q15M PRN BUCCAL DECREASED GLUCOSE; Start 01/13/17 at 19:00 Morphine Sulfate (morphine) 2 mg Q4H PRN IV PAIN Last administered on 02:13; Admin Dose 2 MG; Start 01/14/17 at 01:00 Promethazine HCl/ Codeine (Phenergan/ Codeine) 5 ml Q4H PRN PO COUGH Last administered on 01/29/17 02:12; Admin Dose 5 ML; Start 01/14/17 at 12:30 Hydrocodone Bit/ Homatropine Methylb (Hycodan Liquid) 5 ml Q6 PRN PO COUGH Last administered on 01/29/17 16:12; Admin Dose 5 ML; Start 01/14/17 at 13:30 Diagnostic Test (Pha) (Accu-Chek) 1 ea 02 XX Last administered on 01/29/17 02 :25; Admin Dose 1 EA; Start 01/15/17 at 02:00 Carvedilol (Coreg) 6.25 mg BID PO Last administered on 01/29/17 08:06; Admin Dose 6.25 MG; Start 01/21/17 at 21:00 Lorazepam (Ativan) 0.5 mg Q4 PRN IV ANXIETY Last administered on 01/29/17 17: 23; Admin Dose 0.5 MG; Start 01/27/17 at 13:00 Apixaban (Eliquis) 2.5 mg BID PO Last administered on 01/29/17 08:05; Admin Dose 2.5 MG; Start 01/28/17 at 21:00 Acetaminophen/ Hydrocodone Bitart ([place] (7.5-325)) 1 tab Q6H PRN PO pain Last administered on 01/29/17 09:47; Admin Dose 1 TAB; Start 01/28/17 at 18:30 Docusate Sodium (Colace) 100 mg BID PRN PO CONSTIPATION Last administered on 16:12; Admin Dose 100 MG; Start 01/29/17 at 16:00 GERTRUDIS GUILLERMO Jan 29, 2017 19:02
[2017-01-29] MEDS: ATORVASTATIN 40 MG TAB PO SCH (20:07)
[2017-01-29] MEDS: FAMOTIDINE 20 MG TAB PO SCH (20:18)
[2017-01-30] VITALS (18 sets, daily range): BP systolic 106–165; BP diastolic 51–70; PULSE 62–75; RESP 16–20
[2017-01-30] MEDS: PROMETHAZINE/CODEINE 5ML CUP PO PRN ×3 (00:32→22:20)
[2017-01-30] MEDS: HYDROCODONE/APAP (7.5/325) TAB PO PRN ×2 (00:33→22:23)
[2017-01-30] MEDS: LEVALBUTEROL (NEB) 0.63 MG/3 ML AMP HHN SCH ×4 (01:49→19:46)
[2017-01-30] MEDS: ACCU-CHEK XX SCH (02:00)
[2017-01-30] MEDS: morphine 2 MG INJ IV PRN ×5 (02:02→20:56)
[2017-01-30] MEDS: PANTOPRAZOLE (EC) 40 MG TAB PO SCH (05:58)
[2017-01-30] MEDS: ACETAMINOPHEN 325 MG TAB PO PRN (06:04)
[2017-01-30] MEDS: LORAZEPAM 2 MG INJ IV PRN ×2 (06:45→23:55)
[2017-01-30] MEDS: SEVELAMER CARBONATE 0.8 GM PKT PO SCH ×3 (07:40→17:52)
[2017-01-30] MEDS: INSULIN ASPART [NOVOLOG] 3 ML PEN SC SCH ×7 (07:46→20:02)
[2017-01-30] MEDS: POLYETHYLENE GLYCOL 17 GM PACKET PO SCH ×2 (08:49→19:56)
[2017-01-30] MEDS: MULTIVIT/CA CARB/B CMPLX/FA TAB PO SCH (08:50)
[2017-01-30] MEDS: APIXABAN 5 MG TABLET PO SCH ×2 (08:50→19:54)
[2017-01-30] MEDS: CLOPIDOGREL 75 MG TAB PO SCH (08:50)
[2017-01-30] MEDS: LINAGLIPTIN 5 MG TABLET PO SCH (08:50)
[2017-01-30] MEDS: GABAPENTIN 300 MG CAP PO SCH ×2 (08:50→19:54)
[2017-01-30] MEDS: FOLIC ACID 1 MG TAB PO SCH (08:50)
[2017-01-30] MEDS: AMLODIPINE 10 MG TAB PO SCH (09:00)
[2017-01-30 09:15] LABS: BASOPHILS % 0.4 % (0.0-2.0); EOSINOPHILS # 0.4 10^3/ul (0.0-0.5); EOSINOPHILS % 8.6 % (0.0-7.0); HEMATOCRIT 27.1 % (37.0-47.0); HEMOGLOBIN 8.1 g/dl (12.0-16.0); LYMPHOCYTES # 1.1 10^3/ul (0.8-2.9); MEAN CORPUSCULAR HEMOGLOBIN 32.3 pg (29.0-33.0); MEAN CORPUSCULAR HGB CONC 29.9 g/dl (32.0-37.0); MEAN PLATELET VOLUME 11.3 fl (7.4-10.4); MONOCYTE # 0.5 10^3/ul (0.3-0.9); MONOCYTES % 10.5 % (0.0-11.0); NEUTROPHIL # 2.6 10^3/ul (1.6-7.5); NEUTROPHILS % 57.1 % (39.0-77.0); PLATELET COUNT 197 10^3/UL (140-415); RED BLOOD COUNT 2.51 10^6/ul (4.20-5.40); RED CELL DISTRIBUTION WIDTH 14.8 % (11.5-14.5); WHITE BLOOD COUNT 4.6 10^3/ul (4.8-10.8)
[2017-01-30 09:35] LABS: CALCIUM 8.5 mg/dl (8.4-10.2); CREATININE 7.09 mg/dl (0.44-1.00); POTASSIUM 5.9 mmol/L (3.5-5.1)
--- NOTE | 2017-01-30 11:04 | CONS ---
Date/Time of Note Date/Time of Note DATE: 01/30/17 TIME: 11:03 Consult Date/Type/Reason Admit Date/Time Jan 13, 2017 at 18:04 Initial Consult Date 01/20/17 Type of Consultation: Pulmonary Ordering Provider: KIRSTIN SPANN MD Subjective Comfortable this morning no new events. Objective Vital Signs Date Time Temp Pulse Resp B/P Pulse Ox O2 Delivery O2 Flow Rate FiO2 01/30/17 10:34 21 01/30/17 08:20 69 01/30/17 07:43 98.2 20 149/65 96 01/29/17 19:46 3.0 01/29/17 19:46 Nasal Cannula Intake and Output 01/29/17 01/29/17 01/30/17 15:00 23:00 07:00 Intake Total 1100 ml Balance 1100 ml Exam GENERAL: Elderly appearing lady comfortable at rest no acute distress VITAL SIGNS: per chart NECK: Supple. No JVD or lymphadenopathy. CARDIAC EXAM: S1, S2. No added sounds or murmurs. CHEST: clear bilaterally, No added sounds, rales or wheezes ABDOMEN: Soft, nontender. No guarding or rebound. EXTREMITIES: No cyanosis, clubbing or edema. NEUROLOGIC: Generalized weakness. No focal deficits. Results/Medications Result Diagram: 01/30/17 0802 01/30/17 0811 Results 24 hrs Laboratory Tests Test 01/29/17 11:49 01/29/17 17:17 01/29/17 20:11 01/30/17 07:38 Bedside Glucose 145 134 105 213 Test 01/30/17 08:02 01/30/17 08:11 White Blood Count 4.6 L Red Blood Count 2.51 L Hemoglobin 8.1 L Hematocrit 27.1 L Mean Corpuscular Volume 108.0 H Mean Corpuscular Hemoglobin 32.3 Mean Corpuscular Hemoglobin Concent 29.9 L Red Cell Distribution Width 14.8 H Platelet Count 197 Mean Platelet Volume 11.3 H Neutrophils % 57.1 Lymphocytes % 23.0 Monocytes % 10.5 Eosinophils % 8.6 H Basophils % 0.4 Nucleated Red Blood Cells % 0.0 Neutrophils # 2.6 Lymphocytes # 1.1 Monocytes # 0.5 Eosinophils # 0.4 Basophils # 0.0 Nucleated Red Blood Cells # 0.0 Sodium Level 140 Potassium Level 5.9 H Chloride Level 102 Carbon Dioxide Level 23 Anion Gap 21 H Blood Urea Nitrogen 92 H Creatinine 7.09 H Glucose Level 197 Calcium Level 8.5 Medications Current Medications Ondansetron HCl (Zofran Inj) 4 mg Q6H PRN IV NAUSEA AND/OR VOMITING Last administered on 01/17/17 20:45; Admin Dose 4 MG; Start 01/13/17 at 18:30 Nitroglycerin (Nitroglycerin (Sl Tab) 0.4 Mg) 1 tab Q5M PRN SL CHEST PAIN; Start 01/13/17 at 18:30 Acetaminophen (Tylenol Tab) 650 mg Q6H PRN PO PAIN LEVEL 1-3 OR FEVER Last administered on 01/30/17 06:04; Admin Dose 650 MG; Start 01/13/17 at 18:30 Morphine Sulfate (morphine) 2 mg Q4H PRN IV PAIN LEVEL 7-10 Last administered on 01/30/17 10:57; Admin Dose 2 MG; Start 01/13/17 at 18:30 Famotidine (Pepcid) 10 mg HS PO Last administered on 01/29/17 20:18; Admin Dose 10 MG; Start 01/13/17 at 21:00 Amlodipine Besylate (Norvasc) 10 mg DAILY PO Last administered on 01/29/17 08 :06; Admin Dose 10 MG; Start 01/14/17 at 09:00 Atorvastatin Calcium (Lipitor) 40 mg QHS PO Last administered on 01/29/17 20: 07; Admin Dose 40 MG; Start 01/13/17 at 21:00 Clonidine (Catapres) 0.2 mg TID PRN PO FOR SBP >160 Last administered on 16:43; Admin Dose 0.2 MG; Start 01/13/17 at 19:00 Clopidogrel Bisulfate (plaVIX) 75 mg DAILY PO Last administered on 01/30/17 08:50; Admin Dose 75 MG; Start 01/14/17 at 09:00 Folic Acid (Folic Acid) 1 mg DAILY PO Last administered on 01/30/17 08:50; Admin Dose 1 MG; Start 01/14/17 at 09:00 Gabapentin (Neurontin) 300 mg BID PO Last administered on 01/30/17 08:50; Admin Dose 300 MG; Start 01/13/17 at 21:00 Linagliptin (Tradjenta) 5 mg DAILY PO Last administered on 01/30/17 08:50; Admin Dose 5 MG; Start 01/14/17 at 09:00 Multivit/Ca Carb/ B Cmplx/FA/Prenat (Addie-Mikayla) 1 tab DAILY PO Last administered on 01/30/17 08:50; Admin Dose 1 TAB; Start 01/14/17 at 09:00 Polyethylene Glycol (Miralax) 17 gm BID PO Last administered on 01/30/17 08: 49; Admin Dose 17 GM; Start 01/13/17 at 21:00 Miscellaneous Information 1 ea NOTE XX ; Start 01/13/17 at 19:00 Glucose (Glutose) 15 gm Q15M PRN PO DECREASED GLUCOSE; Start 01/13/17 at 19:00 Glucose (Glutose) 22.5 gm Q15M PRN PO DECREASED GLUCOSE; Start 01/13/17 at 19: 00 Dextrose (D50w Syringe) 25 ml Q15M PRN IV DECREASED GLUCOSE; Start 01/13/17 at 19:00 Dextrose (D50w Syringe) 50 ml Q15M PRN IV DECREASED GLUCOSE; Start 01/13/17 at 19:00 Glucagon (Glucagen) 1 mg Q15M PRN IM DECREASED GLUCOSE; Start 01/13/17 at 19: 00 Glucose (Glutose) 15 gm Q15M PRN BUCCAL DECREASED GLUCOSE; Start 01/13/17 at 19:00 Morphine Sulfate (morphine) 2 mg Q4H PRN IV PAIN Last administered on 02:13; Admin Dose 2 MG; Start 01/14/17 at 01:00 Promethazine HCl/ Codeine (Phenergan/ Codeine) 5 ml Q4H PRN PO COUGH Last administered on 01/30/17 05:58; Admin Dose 5 ML; Start 01/14/17 at 12:30 Hydrocodone Bit/ Homatropine Methylb (Hycodan Liquid) 5 ml Q6 PRN PO COUGH Last administered on 01/29/17 16:12; Admin Dose 5 ML; Start 01/14/17 at 13:30 Diagnostic Test (Pha) (Accu-Chek) 1 ea 02 XX Last administered on 01/29/17 02 :25; Admin Dose 1 EA; Start 01/15/17 at 02:00 Carvedilol (Coreg) 6.25 mg BID PO Last administered on 01/29/17 20:08; Admin Dose 6.25 MG; Start 01/21/17 at 21:00 Lorazepam (Ativan) 0.5 mg Q4 PRN IV ANXIETY Last administered on 01/30/17 06: 45; Admin Dose 0.5 MG; Start 01/27/17 at 13:00 Apixaban (Eliquis) 2.5 mg BID PO Last administered on 01/30/17 08:50; Admin Dose 2.5 MG; Start 01/28/17 at 21:00 Acetaminophen/ Hydrocodone Bitart ([place] (7.5-325)) 1 tab Q6H PRN PO pain Last administered on 01/30/17 00:33; Admin Dose 1 TAB; Start 01/28/17 at 18:30 Docusate Sodium (Colace) 100 mg BID PRN PO CONSTIPATION Last administered on 16:12; Admin Dose 100 MG; Start 01/29/17 at 16:00 Assessment/Plan Chief Complaint/Hosp Course Hypoxemia, likely secondary to underlying chronic bronchitis and mild emphysema. 2. Bibasilar atelectasis with hypoventilation. 3. Probable obstructive sleep apnea. 4. Volume overload from underlying renal failure, although these are likely contributing to her hypoxemia in addition to immobility, I recommend: End-stage renal failure on hemodialysis Continue hemodialysis. 2. Bronchodilators. 3. Encourage out of bed. 4. Outpatient sleep study. Problems: DIONISIO CONTRERAS MD, [facility] Jan 30, 2017 11:04
--- NOTE | 2017-01-30 12:14 | CONS ---
Date/Time of Note Date/Time of Note DATE: 01/30/17 TIME: 12:07 Assessment/Plan Assessment/Plan Additional Assessment/Plan 56 yo female with left foot and leg ulceration no sign of infection. Dressing changes with betadine recommended. Patient needs outpatient follow up at [facility] Consultation Date/Type/Reason Admit Date/Time Jan 13, 2017 at 18:04 Hx of Present Illness Patient with history PAD recently admitted for SOB. Patient is seen at [facility], however, she is non compliant with keeping her follow up appointments. She has been seen for Foot exam at this time. Constitutional: other (MALFUNC AVF OK NOW) Respiratory: no complaints Cardiovascular: no complaints Gastrointestinal: no complaints Genitourinary: no complaints Musculoskeletal: no complaints Skin: no complaints Neurologic: no complaints Psychological: no complaints Past Medical History Medical History: diabetes, hypertension, renal disease Past Surgical History Past Surgical Hx: other Social History Alcohol Use: none Smoking Status: Former smoker Drug Use: none Exam/Review of Systems Vital Signs Vitals Vital Signs Date Time Temp Pulse Resp B/P Pulse Ox O2 Delivery O2 Flow Rate FiO2 01/30/17 10:34 21 01/30/17 08:20 69 01/30/17 07:43 98.2 20 149/65 96 01/29/17 19:46 3.0 01/29/17 19:46 Nasal Cannula Intake and Output 01/29/17 01/29/17 01/30/17 14:59 22:59 06:59 Intake Total 1100 ml Balance 1100 ml Exam Patient alert and oriented. Vasc: 1/4 DP and PT pulses Derm: left foot sub 1st met had superficial ulcer no deep probe or drainage. Left leg anterior rosales ulcer with no deep probe or drainage noted. Right foot with no open wounds. neuro: protective sensation intact. musk/skeletal: history of right hallux partial amp. Results Result Diagram: 01/30/17 0802 01/30/17 0811 Results 24 hrs Laboratory Tests Test 01/29/17 17:17 01/29/17 20:11 01/30/17 07:38 01/30/17 08:02 Bedside Glucose 134 105 213 White Blood Count 4.6 L Red Blood Count 2.51 L Hemoglobin 8.1 L Hematocrit 27.1 L Mean Corpuscular Volume 108.0 H Mean Corpuscular Hemoglobin 32.3 Mean Corpuscular Hemoglobin Concent 29.9 L Red Cell Distribution Width 14.8 H Platelet Count 197 Mean Platelet Volume 11.3 H Neutrophils % 57.1 Lymphocytes % 23.0 Monocytes % 10.5 Eosinophils % 8.6 H Basophils % 0.4 Nucleated Red Blood Cells % 0.0 Neutrophils # 2.6 Lymphocytes # 1.1 Monocytes # 0.5 Eosinophils # 0.4 Basophils # 0.0 Nucleated Red Blood Cells # 0.0 Test 01/30/17 08:11 01/30/17 12:05 Sodium Level 140 Potassium Level 5.9 H Chloride Level 102 Carbon Dioxide Level 23 Anion Gap 21 H Blood Urea Nitrogen 92 H Creatinine 7.09 H Glucose Level 197 Calcium Level 8.5 Bedside Glucose 194 Medications Medications Current Medications Ondansetron HCl (Zofran Inj) 4 mg Q6H PRN IV NAUSEA AND/OR VOMITING Last administered on 01/17/17 20:45; Admin Dose 4 MG; Start 01/13/17 at 18:30 Nitroglycerin (Nitroglycerin (Sl Tab) 0.4 Mg) 1 tab Q5M PRN SL CHEST PAIN; Start 01/13/17 at 18:30 Acetaminophen (Tylenol Tab) 650 mg Q6H PRN PO PAIN LEVEL 1-3 OR FEVER Last administered on 01/30/17 06:04; Admin Dose 650 MG; Start 01/13/17 at 18:30 Morphine Sulfate (morphine) 2 mg Q4H PRN IV PAIN LEVEL 7-10 Last administered on 01/30/17 10:57; Admin Dose 2 MG; Start 01/13/17 at 18:30 Famotidine (Pepcid) 10 mg HS PO Last administered on 01/29/17 20:18; Admin Dose 10 MG; Start 01/13/17 at 21:00 Amlodipine Besylate (Norvasc) 10 mg DAILY PO Last administered on 01/29/17 08 :06; Admin Dose 10 MG; Start 01/14/17 at 09:00 Atorvastatin Calcium (Lipitor) 40 mg QHS PO Last administered on 01/29/17 20: 07; Admin Dose 40 MG; Start 01/13/17 at 21:00 Clonidine (Catapres) 0.2 mg TID PRN PO FOR SBP >160 Last administered on 16:43; Admin Dose 0.2 MG; Start 01/13/17 at 19:00 Clopidogrel Bisulfate (plaVIX) 75 mg DAILY PO Last administered on 01/30/17 08:50; Admin Dose 75 MG; Start 01/14/17 at 09:00 Folic Acid (Folic Acid) 1 mg DAILY PO Last administered on 01/30/17 08:50; Admin Dose 1 MG; Start 01/14/17 at 09:00 Gabapentin (Neurontin) 300 mg BID PO Last administered on 01/30/17 08:50; Admin Dose 300 MG; Start 01/13/17 at 21:00 Linagliptin (Tradjenta) 5 mg DAILY PO Last administered on 01/30/17 08:50; Admin Dose 5 MG; Start 01/14/17 at 09:00 Multivit/Ca Carb/ B Cmplx/FA/Prenat (Addie-Mikayla) 1 tab DAILY PO Last administered on 01/30/17 08:50; Admin Dose 1 TAB; Start 01/14/17 at 09:00 Polyethylene Glycol (Miralax) 17 gm BID PO Last administered on 01/30/17 08: 49; Admin Dose 17 GM; Start 01/13/17 at 21:00 Miscellaneous Information 1 ea NOTE XX ; Start 01/13/17 at 19:00 Glucose (Glutose) 15 gm Q15M PRN PO DECREASED GLUCOSE; Start 01/13/17 at 19:00 Glucose (Glutose) 22.5 gm Q15M PRN PO DECREASED GLUCOSE; Start 01/13/17 at 19: 00 Dextrose (D50w Syringe) 25 ml Q15M PRN IV DECREASED GLUCOSE; Start 01/13/17 at 19:00 Dextrose (D50w Syringe) 50 ml Q15M PRN IV DECREASED GLUCOSE; Start 01/13/17 at 19:00 Glucagon (Glucagen) 1 mg Q15M PRN IM DECREASED GLUCOSE; Start 01/13/17 at 19: 00 Glucose (Glutose) 15 gm Q15M PRN BUCCAL DECREASED GLUCOSE; Start 01/13/17 at 19:00 Morphine Sulfate (morphine) 2 mg Q4H PRN IV PAIN Last administered on 02:13; Admin Dose 2 MG; Start 01/14/17 at 01:00 Promethazine HCl/ Codeine (Phenergan/ Codeine) 5 ml Q4H PRN PO COUGH Last administered on 01/30/17 05:58; Admin Dose 5 ML; Start 01/14/17 at 12:30 Hydrocodone Bit/ Homatropine Methylb (Hycodan Liquid) 5 ml Q6 PRN PO COUGH Last administered on 01/29/17 16:12; Admin Dose 5 ML; Start 01/14/17 at 13:30 Diagnostic Test (Pha) (Accu-Chek) 1 ea 02 XX Last administered on 01/29/17 02 :25; Admin Dose 1 EA; Start 01/15/17 at 02:00 Carvedilol (Coreg) 6.25 mg BID PO Last administered on 01/29/17 20:08; Admin Dose 6.25 MG; Start 01/21/17 at 21:00 Lorazepam (Ativan) 0.5 mg Q4 PRN IV ANXIETY Last administered on 01/30/17 06: 45; Admin Dose 0.5 MG; Start 01/27/17 at 13:00 Apixaban (Eliquis) 2.5 mg BID PO Last administered on 01/30/17 08:50; Admin Dose 2.5 MG; Start 01/28/17 at 21:00 Acetaminophen/ Hydrocodone Bitart ([place] (7.5-325)) 1 tab Q6H PRN PO pain Last administered on 01/30/17 00:33; Admin Dose 1 TAB; Start 01/28/17 at 18:30 Docusate Sodium (Colace) 100 mg BID PRN PO CONSTIPATION Last administered on 16:12; Admin Dose 100 MG; Start 01/29/17 at 16:00 ROSALIA PATEL DPM Jan 30, 2017 12:14
--- NOTE | 2017-01-30 13:31 | CONS ---
Date/Time of Note Date/Time of Note DATE: 01/30/17 TIME: 13:30 Assessment/Plan Assessment/Plan Chief Complaint/Hosp Course 1. Fluid overload,BETTER 2. End-stage renal disease. 3. Hypertension. 4. Diabetes mellitus, controlled. 5. Hyperkalemia, resolved. 6. Atherosclerotic heart disease. 7. Peripheral vascular disease. 8. History of dyslipidemia. 9 History of pneumonia. 10. History of leg cellulitis. 11. History of wound dehiscence. 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 14. Right leg wound Problems: Additional Assessment/Plan 1. continue HD 2. Optimization of kidney function Consultation Date/Type/Reason Admit Date/Time Jan 13, 2017 at 18:04 Initial Consult Date nephrology Type of Consultation: Pulmonary Reason for Consultation Dr Garcia Referring Provider: KIRSTIN SPANN MD Exam/Review of Systems Vital Signs Vitals Vital Signs Date Time Temp Pulse Resp B/P Pulse Ox O2 Delivery O2 Flow Rate FiO2 01/30/17 12:40 98.3 66 20 132/58 96 01/30/17 10:34 21 01/29/17 19:46 3.0 01/29/17 19:46 Nasal Cannula Intake and Output 01/29/17 01/29/17 01/30/17 15:00 23:00 07:00 Intake Total 1100 ml Balance 1100 ml Exam Constitutional: alert, oriented Cardiovascular: regular rate and rhythm Musculoskeletal: muscle weakness, other (open wound left leg) Results Result Diagram: 01/30/17 0802 01/30/17 0811 Results 24 hrs Laboratory Tests Test 01/29/17 17:17 01/29/17 20:11 01/30/17 07:38 01/30/17 08:02 Bedside Glucose 134 105 213 White Blood Count 4.6 L Red Blood Count 2.51 L Hemoglobin 8.1 L Hematocrit 27.1 L Mean Corpuscular Volume 108.0 H Mean Corpuscular Hemoglobin 32.3 Mean Corpuscular Hemoglobin Concent 29.9 L Red Cell Distribution Width 14.8 H Platelet Count 197 Mean Platelet Volume 11.3 H Neutrophils % 57.1 Lymphocytes % 23.0 Monocytes % 10.5 Eosinophils % 8.6 H Basophils % 0.4 Nucleated Red Blood Cells % 0.0 Neutrophils # 2.6 Lymphocytes # 1.1 Monocytes # 0.5 Eosinophils # 0.4 Basophils # 0.0 Nucleated Red Blood Cells # 0.0 Test 01/30/17 08:11 01/30/17 12:05 Sodium Level 140 Potassium Level 5.9 H Chloride Level 102 Carbon Dioxide Level 23 Anion Gap 21 H Blood Urea Nitrogen 92 H Creatinine 7.09 H Glucose Level 197 Calcium Level 8.5 Bedside Glucose 194 Medications Medications Current Medications Ondansetron HCl (Zofran Inj) 4 mg Q6H PRN IV NAUSEA AND/OR VOMITING Last administered on 01/17/17 20:45; Admin Dose 4 MG; Start 01/13/17 at 18:30 Nitroglycerin (Nitroglycerin (Sl Tab) 0.4 Mg) 1 tab Q5M PRN SL CHEST PAIN; Start 01/13/17 at 18:30 Acetaminophen (Tylenol Tab) 650 mg Q6H PRN PO PAIN LEVEL 1-3 OR FEVER Last administered on 01/30/17 06:04; Admin Dose 650 MG; Start 01/13/17 at 18:30 Morphine Sulfate (morphine) 2 mg Q4H PRN IV PAIN LEVEL 7-10 Last administered on 01/30/17 10:57; Admin Dose 2 MG; Start 01/13/17 at 18:30 Famotidine (Pepcid) 10 mg HS PO Last administered on 01/29/17 20:18; Admin Dose 10 MG; Start 01/13/17 at 21:00 Amlodipine Besylate (Norvasc) 10 mg DAILY PO Last administered on 01/29/17 08 :06; Admin Dose 10 MG; Start 01/14/17 at 09:00 Atorvastatin Calcium (Lipitor) 40 mg QHS PO Last administered on 01/29/17 20: 07; Admin Dose 40 MG; Start 01/13/17 at 21:00 Clonidine (Catapres) 0.2 mg TID PRN PO FOR SBP >160 Last administered on 16:43; Admin Dose 0.2 MG; Start 01/13/17 at 19:00 Clopidogrel Bisulfate (plaVIX) 75 mg DAILY PO Last administered on 01/30/17 08:50; Admin Dose 75 MG; Start 01/14/17 at 09:00 Folic Acid (Folic Acid) 1 mg DAILY PO Last administered on 01/30/17 08:50; Admin Dose 1 MG; Start 01/14/17 at 09:00 Gabapentin (Neurontin) 300 mg BID PO Last administered on 01/30/17 08:50; Admin Dose 300 MG; Start 01/13/17 at 21:00 Linagliptin (Tradjenta) 5 mg DAILY PO Last administered on 01/30/17 08:50; Admin Dose 5 MG; Start 01/14/17 at 09:00 Multivit/Ca Carb/ B Cmplx/FA/Prenat (Addie-Mikayla) 1 tab DAILY PO Last administered on 01/30/17 08:50; Admin Dose 1 TAB; Start 01/14/17 at 09:00 Polyethylene Glycol (Miralax) 17 gm BID PO Last administered on 01/30/17 08: 49; Admin Dose 17 GM; Start 01/13/17 at 21:00 Miscellaneous Information 1 ea NOTE XX ; Start 01/13/17 at 19:00 Glucose (Glutose) 15 gm Q15M PRN PO DECREASED GLUCOSE; Start 01/13/17 at 19:00 Glucose (Glutose) 22.5 gm Q15M PRN PO DECREASED GLUCOSE; Start 01/13/17 at 19: 00 Dextrose (D50w Syringe) 25 ml Q15M PRN IV DECREASED GLUCOSE; Start 01/13/17 at 19:00 Dextrose (D50w Syringe) 50 ml Q15M PRN IV DECREASED GLUCOSE; Start 01/13/17 at 19:00 Glucagon (Glucagen) 1 mg Q15M PRN IM DECREASED GLUCOSE; Start 01/13/17 at 19: 00 Glucose (Glutose) 15 gm Q15M PRN BUCCAL DECREASED GLUCOSE; Start 01/13/17 at 19:00 Morphine Sulfate (morphine) 2 mg Q4H PRN IV PAIN Last administered on 02:13; Admin Dose 2 MG; Start 01/14/17 at 01:00 Promethazine HCl/ Codeine (Phenergan/ Codeine) 5 ml Q4H PRN PO COUGH Last administered on 01/30/17 05:58; Admin Dose 5 ML; Start 01/14/17 at 12:30 Hydrocodone Bit/ Homatropine Methylb (Hycodan Liquid) 5 ml Q6 PRN PO COUGH Last administered on 01/29/17 16:12; Admin Dose 5 ML; Start 01/14/17 at 13:30 Diagnostic Test (Pha) (Accu-Chek) 1 ea 02 XX Last administered on 01/29/17 02 :25; Admin Dose 1 EA; Start 01/15/17 at 02:00 Carvedilol (Coreg) 6.25 mg BID PO Last administered on 01/29/17 20:08; Admin Dose 6.25 MG; Start 01/21/17 at 21:00 Lorazepam (Ativan) 0.5 mg Q4 PRN IV ANXIETY Last administered on 01/30/17 06: 45; Admin Dose 0.5 MG; Start 01/27/17 at 13:00 Apixaban (Eliquis) 2.5 mg BID PO Last administered on 01/30/17 08:50; Admin Dose 2.5 MG; Start 01/28/17 at 21:00 Acetaminophen/ Hydrocodone Bitart ([place] (7.5-325)) 1 tab Q6H PRN PO pain Last administered on 01/30/17 00:33; Admin Dose 1 TAB; Start 01/28/17 at 18:30 Docusate Sodium (Colace) 100 mg BID PRN PO CONSTIPATION Last administered on 16:12; Admin Dose 100 MG; Start 01/29/17 at 16:00 KUNAL RAMOS Jan 30, 2017 13:31
[2017-01-30] MEDS ORDERED: LORAZEPAM 2 MG INJ IV ONE (17:00)
--- NOTE | 2017-01-30 18:05 | PN ---
Date/Time of Note Date/Time of Note DATE: 01/30/17 TIME: 18:00 Assessment/Plan VTE Prophylaxis VTE Prophylaxis Intervention: other Lines/Catheters IV Catheter Type (from [facility]): [place] Urinary Cath still in place: No Assessment/Plan Chief Complaint/Hosp Course Patient is undergoing hemodialysis, patient remains hemodynamically stable. Assessment/Plan -Atrial fibrillation, currently in sinus rhythm, continue Eliquiz. Dr. William is following in cardiology consultation. -Acute respiratory failure secondary to pulmonary edema, resolving. Dr Cole is following in pulmonology consultation. -Hemodialysis dependent end-stage renal disease, Dr. Garcia is following in nephrology consultation, continue hemodialysis. Fluid restriction. -Status post fistulogram, status post left upper extremity anastomosis angioplasty by Dr. Ruano on 01/19. Status post left upper extremity fistulogram and coil embolization on 01/23. -E. coli UTI, s/p treatment. -Diabetes mellitus type 2, hemoglobin A1c 6.5, continue Tradjenta Lantus and NovoLog -HTN -Severe PVD, with multiple vascular intervention including a left lower extremity bypass. -S/p orthopedic procedures to RUE with metal prosthetic after bone Fx -Poor medical compliance Further recommendations based on clinical course. Plan of care is discussed with Dr. Cordero Problems: Exam/Review of Systems Vital Signs Vitals Vital Signs Date Time Temp Pulse Resp B/P Pulse Ox O2 Delivery O2 Flow Rate FiO2 01/30/17 16:21 64 01/30/17 16:04 98.3 20 165/70 98 01/30/17 13:49 21 01/29/17 19:46 3.0 01/29/17 19:46 Nasal Cannula Intake and Output 01/29/17 01/29/17 01/30/17 15:00 23:00 07:00 Intake Total 1100 ml Balance 1100 ml Exam Constitutional: alert, oriented Respiratory: diminished breath sounds Cardiovascular: nl pulses, regular rate and rhythm Gastrointestinal: non-tender, soft Neurological: nl mental status Results Result Diagram: 01/30/17 0802 01/30/17 0811 Results 24 hrs Laboratory Tests Test 01/29/17 20:11 01/30/17 07:38 01/30/17 08:02 01/30/17 08:11 Bedside Glucose 105 213 White Blood Count 4.6 L Red Blood Count 2.51 L Hemoglobin 8.1 L Hematocrit 27.1 L Mean Corpuscular Volume 108.0 H Mean Corpuscular Hemoglobin 32.3 Mean Corpuscular Hemoglobin Concent 29.9 L Red Cell Distribution Width 14.8 H Platelet Count 197 Mean Platelet Volume 11.3 H Neutrophils % 57.1 Lymphocytes % 23.0 Monocytes % 10.5 Eosinophils % 8.6 H Basophils % 0.4 Nucleated Red Blood Cells % 0.0 Neutrophils # 2.6 Lymphocytes # 1.1 Monocytes # 0.5 Eosinophils # 0.4 Basophils # 0.0 Nucleated Red Blood Cells # 0.0 Sodium Level 140 Potassium Level 5.9 H Chloride Level 102 Carbon Dioxide Level 23 Anion Gap 21 H Blood Urea Nitrogen 92 H Creatinine 7.09 H Glucose Level 197 Calcium Level 8.5 Test 01/30/17 12:05 01/30/17 17:51 Bedside Glucose 194 188 Medications Medications Current Medications Ondansetron HCl (Zofran Inj) 4 mg Q6H PRN IV NAUSEA AND/OR VOMITING Last administered on 01/17/17 20:45; Admin Dose 4 MG; Start 01/13/17 at 18:30 Nitroglycerin (Nitroglycerin (Sl Tab) 0.4 Mg) 1 tab Q5M PRN SL CHEST PAIN; Start 01/13/17 at 18:30 Acetaminophen (Tylenol Tab) 650 mg Q6H PRN PO PAIN LEVEL 1-3 OR FEVER Last administered on 01/30/17 06:04; Admin Dose 650 MG; Start 01/13/17 at 18:30 Morphine Sulfate (morphine) 2 mg Q4H PRN IV PAIN LEVEL 7-10 Last administered on 01/30/17 15:26; Admin Dose 2 MG; Start 01/13/17 at 18:30 Famotidine (Pepcid) 10 mg HS PO Last administered on 01/29/17 20:18; Admin Dose 10 MG; Start 01/13/17 at 21:00 Amlodipine Besylate (Norvasc) 10 mg DAILY PO Last administered on 01/29/17 08 :06; Admin Dose 10 MG; Start 01/14/17 at 09:00 Atorvastatin Calcium (Lipitor) 40 mg QHS PO Last administered on 01/29/17 20: 07; Admin Dose 40 MG; Start 01/13/17 at 21:00 Clonidine (Catapres) 0.2 mg TID PRN PO FOR SBP >160 Last administered on 16:43; Admin Dose 0.2 MG; Start 01/13/17 at 19:00 Clopidogrel Bisulfate (plaVIX) 75 mg DAILY PO Last administered on 01/30/17 08:50; Admin Dose 75 MG; Start 01/14/17 at 09:00 Folic Acid (Folic Acid) 1 mg DAILY PO Last administered on 01/30/17 08:50; Admin Dose 1 MG; Start 01/14/17 at 09:00 Gabapentin (Neurontin) 300 mg BID PO Last administered on 01/30/17 08:50; Admin Dose 300 MG; Start 01/13/17 at 21:00 Linagliptin (Tradjenta) 5 mg DAILY PO Last administered on 01/30/17 08:50; Admin Dose 5 MG; Start 01/14/17 at 09:00 Multivit/Ca Carb/ B Cmplx/FA/Prenat (Addie-Mikayla) 1 tab DAILY PO Last administered on 01/30/17 08:50; Admin Dose 1 TAB; Start 01/14/17 at 09:00 Polyethylene Glycol (Miralax) 17 gm BID PO Last administered on 01/30/17 08: 49; Admin Dose 17 GM; Start 01/13/17 at 21:00 Miscellaneous Information 1 ea NOTE XX ; Start 01/13/17 at 19:00 Glucose (Glutose) 15 gm Q15M PRN PO DECREASED GLUCOSE; Start 01/13/17 at 19:00 Glucose (Glutose) 22.5 gm Q15M PRN PO DECREASED GLUCOSE; Start 01/13/17 at 19: 00 Dextrose (D50w Syringe) 25 ml Q15M PRN IV DECREASED GLUCOSE; Start 01/13/17 at 19:00 Dextrose (D50w Syringe) 50 ml Q15M PRN IV DECREASED GLUCOSE; Start 01/13/17 at 19:00 Glucagon (Glucagen) 1 mg Q15M PRN IM DECREASED GLUCOSE; Start 01/13/17 at 19: 00 Glucose (Glutose) 15 gm Q15M PRN BUCCAL DECREASED GLUCOSE; Start 01/13/17 at 19:00 Morphine Sulfate (morphine) 2 mg Q4H PRN IV PAIN Last administered on 02:13; Admin Dose 2 MG; Start 01/14/17 at 01:00 Promethazine HCl/ Codeine (Phenergan/ Codeine) 5 ml Q4H PRN PO COUGH Last administered on 01/30/17 05:58; Admin Dose 5 ML; Start 01/14/17 at 12:30 Hydrocodone Bit/ Homatropine Methylb (Hycodan Liquid) 5 ml Q6 PRN PO COUGH Last administered on 01/29/17 16:12; Admin Dose 5 ML; Start 01/14/17 at 13:30 Diagnostic Test (Pha) (Accu-Chek) 1 ea 02 XX Last administered on 01/29/17 02 :25; Admin Dose 1 EA; Start 01/15/17 at 02:00 Carvedilol (Coreg) 6.25 mg BID PO Last administered on 01/29/17 20:08; Admin Dose 6.25 MG; Start 01/21/17 at 21:00 Apixaban (Eliquis) 2.5 mg BID PO Last administered on 01/30/17 08:50; Admin Dose 2.5 MG; Start 01/28/17 at 21:00 Acetaminophen/ Hydrocodone Bitart ([place] (7.5-325)) 1 tab Q6H PRN PO pain Last administered on 01/30/17 00:33; Admin Dose 1 TAB; Start 01/28/17 at 18:30 Docusate Sodium (Colace) 100 mg BID PRN PO CONSTIPATION Last administered on 16:12; Admin Dose 100 MG; Start 01/29/17 at 16:00 Lorazepam (Ativan) 0.5 mg Q3 PRN IV ANXIETY; Start 01/30/17 at 18:00 ANTHONY DUPREE Jan 30, 2017 18:05
[2017-01-30] MEDS: FAMOTIDINE 20 MG TAB PO SCH (19:55)
[2017-01-30] MEDS: ATORVASTATIN 40 MG TAB PO SCH (19:55)
[2017-01-30] MEDS: HYDROCODONE/HOMATROPINE 5ML CUP PO PRN (20:53)
[2017-01-31] VITALS (11 sets, daily range): BP systolic 113–148; BP diastolic 58–68; PULSE 66–75; RESP 16–18
[2017-01-31] MEDS: morphine 2 MG INJ IV PRN ×4 (01:10→20:30)
[2017-01-31] MEDS: ACCU-CHEK XX SCH (01:19)
[2017-01-31] MEDS: LEVALBUTEROL (NEB) 0.63 MG/3 ML AMP HHN SCH ×4 (01:37→20:41)
[2017-01-31 07:04] LABS: BASOPHILS % 0.4 % (0.0-2.0); EOSINOPHILS # 0.5 10^3/ul (0.0-0.5); EOSINOPHILS % 9.5 % (0.0-7.0); HEMATOCRIT 24.6 % (37.0-47.0); HEMOGLOBIN 7.6 g/dl (12.0-16.0); LYMPHOCYTES # 1.2 10^3/ul (0.8-2.9); LYMPHOCYTES % 26.1 % (15.0-51.0); MEAN CORPUSCULAR HGB CONC 30.9 g/dl (32.0-37.0); MEAN PLATELET VOLUME 11.1 fl (7.4-10.4); MONOCYTE # 0.7 10^3/ul (0.3-0.9); MONOCYTES % 14.2 % (0.0-11.0); NEUTROPHIL # 2.3 10^3/ul (1.6-7.5); NEUTROPHILS % 49.4 % (39.0-77.0); PLATELET COUNT 177 10^3/UL (140-415); WHITE BLOOD COUNT 4.7 10^3/ul (4.8-10.8)
[2017-01-31 07:22] LABS: CALCIUM 7.8 mg/dl (8.4-10.2); CREATININE 6.99 mg/dl (0.44-1.00)
[2017-01-31 07:28] LABS: POTASSIUM 5.8 mmol/L (3.5-5.1)
[2017-01-31] MEDS: PANTOPRAZOLE (EC) 40 MG TAB PO SCH (07:30)
[2017-01-31] MEDS: INSULIN ASPART [NOVOLOG] 3 ML PEN SC SCH ×7 (08:15→20:20)
[2017-01-31] MEDS: SEVELAMER CARBONATE 0.8 GM PKT PO SCH ×3 (08:25→17:27)
[2017-01-31] MEDS: APIXABAN 5 MG TABLET PO SCH ×2 (09:12→20:01)
[2017-01-31] MEDS: CLOPIDOGREL 75 MG TAB PO SCH (09:12)
[2017-01-31] MEDS: POLYETHYLENE GLYCOL 17 GM PACKET PO SCH ×2 (09:12→20:04)
[2017-01-31] MEDS: FOLIC ACID 1 MG TAB PO SCH (09:12)
[2017-01-31] MEDS: LINAGLIPTIN 5 MG TABLET PO SCH (09:12)
[2017-01-31] MEDS: MULTIVIT/CA CARB/B CMPLX/FA TAB PO SCH (09:12)
[2017-01-31] MEDS: GABAPENTIN 300 MG CAP PO SCH ×2 (09:12→20:01)
[2017-01-31] MEDS: AMLODIPINE 10 MG TAB PO SCH (09:13)
[2017-01-31] MEDS: LORAZEPAM 2 MG INJ IV PRN ×3 (09:22→21:50)
--- NOTE | 2017-01-31 09:59 | PN ---
Date/Time of Note Date/Time of Note DATE: 01/31/17 TIME: 09:57 Assessment/Plan VTE Prophylaxis VTE Prophylaxis Intervention: other Lines/Catheters IV Catheter Type (from [facility]): [place] [facility] Urinary Cath still in place: No Assessment/Plan Chief Complaint/Hosp Course - Chest pain, rule out acute coronary syndrome. Continue aspirin and Imdur. Dr. William is following in cardiology consultation. Pending cardiac cath on Thursday. - Systolic dysfunction congestive heart failure with ejection fraction of 35%. - Cardiomyopathy. - Coronary artery disease, status post coronary artery bypass graft in 2010 and status post stent to LAD in 2016. - ICD interrogated today to assess for events - Chronic obstructive pulmonary disease. - Obstructive sleep apnea requiring BiPAP at night. - Syncope. CT of the head negative for acute stroke. - cellulitis give ancef Problems: Subjective 24 Hr Interval Summary Free Text/Dictation Patient has mild open wounds on legs, still short of breath Exam/Review of Systems Vital Signs Vitals Vital Signs Date Time Temp Pulse Resp B/P Pulse Ox O2 Delivery O2 Flow Rate FiO2 01/31/17 08:08 67 01/31/17 07:40 98.5 17 148/67 93 01/31/17 01:38 Nasal Cannula 2.0 01/30/17 17:01 21 Intake and Output 01/30/17 01/30/17 01/31/17 15:00 23:00 07:00 Intake Total 500 ml 1600 ml 700 ml Output Total 2500 ml Balance -2000 ml 1600 ml 700 ml Exam Constitutional: well developed Head: atraumatic, normocephalic Respiratory: diminished breath sounds, wheezing Cardiovascular: regular rate and rhythm Gastrointestinal: soft Extremities: normal pulses Results Result Diagram: 01/31/1760401/31/17604 Results 24 hrs Laboratory Tests Test 01/30/17 12:05 01/30/17 17:51 01/30/17 19:51 01/31/17 01:15 Bedside Glucose 194 188 208 257 H Test 01/31/17 06:05 01/31/17 08:13 White Blood Count 4.7 L Red Blood Count 2.30 L Hemoglobin 7.6 L Hematocrit 24.6 L Mean Corpuscular Volume 107.0 H Mean Corpuscular Hemoglobin 33.0 Mean Corpuscular Hemoglobin Concent 30.9 L Red Cell Distribution Width 15.0 H Platelet Count 177 Mean Platelet Volume 11.1 H Neutrophils % 49.4 Lymphocytes % 26.1 Monocytes % 14.2 H Eosinophils % 9.5 H Basophils % 0.4 Nucleated Red Blood Cells % 0.0 Neutrophils # 2.3 Lymphocytes # 1.2 Monocytes # 0.7 Eosinophils # 0.5 Basophils # 0.0 Nucleated Red Blood Cells # 0.0 Sodium Level 139 Potassium Level 5.8 H Chloride Level 101 Carbon Dioxide Level 27 Anion Gap 17 H Blood Urea Nitrogen 93 H Creatinine 6.99 H Glucose Level 142 # Calcium Level 7.8 L Bedside Glucose 204 Medications Medications Current Medications Ondansetron HCl (Zofran Inj) 4 mg Q6H PRN IV NAUSEA AND/OR VOMITING Last administered on 01/17/17 20:45; Admin Dose 4 MG; Start 01/13/17 at 18:30 Nitroglycerin (Nitroglycerin (Sl Tab) 0.4 Mg) 1 tab Q5M PRN SL CHEST PAIN; Start 01/13/17 at 18:30 Acetaminophen (Tylenol Tab) 650 mg Q6H PRN PO PAIN LEVEL 1-3 OR FEVER Last administered on 01/30/17 06:04; Admin Dose 650 MG; Start 01/13/17 at 18:30 Morphine Sulfate (morphine) 2 mg Q4H PRN IV PAIN LEVEL 7-10 Last administered on 01/31/17 07:31; Admin Dose 2 MG; Start 01/13/17 at 18:30 Famotidine (Pepcid) 10 mg HS PO Last administered on 01/30/17 19:55; Admin Dose 10 MG; Start 01/13/17 at 21:00 Amlodipine Besylate (Norvasc) 10 mg DAILY PO Last administered on 01/31/17 09 :13; Admin Dose 10 MG; Start 01/14/17 at 09:00 Atorvastatin Calcium (Lipitor) 40 mg QHS PO Last administered on 01/30/17 19: 55; Admin Dose 40 MG; Start 01/13/17 at 21:00 Clonidine (Catapres) 0.2 mg TID PRN PO FOR SBP >160 Last administered on 16:43; Admin Dose 0.2 MG; Start 01/13/17 at 19:00 Clopidogrel Bisulfate (plaVIX) 75 mg DAILY PO Last administered on 01/31/17 09:12; Admin Dose 75 MG; Start 01/14/17 at 09:00 Folic Acid (Folic Acid) 1 mg DAILY PO Last administered on 01/31/17 09:12; Admin Dose 1 MG; Start 01/14/17 at 09:00 Gabapentin (Neurontin) 300 mg BID PO Last administered on 01/31/17 09:12; Admin Dose 300 MG; Start 01/13/17 at 21:00 Linagliptin (Tradjenta) 5 mg DAILY PO Last administered on 01/31/17 09:12; Admin Dose 5 MG; Start 01/14/17 at 09:00 Multivit/Ca Carb/ B Cmplx/FA/Prenat (Addie-Mikayla) 1 tab DAILY PO Last administered on 01/31/17 09:12; Admin Dose 1 TAB; Start 01/14/17 at 09:00 Polyethylene Glycol (Miralax) 17 gm BID PO Last administered on 01/31/17 09: 12; Admin Dose 17 GM; Start 01/13/17 at 21:00 Miscellaneous Information 1 ea NOTE XX ; Start 01/13/17 at 19:00 Glucose (Glutose) 15 gm Q15M PRN PO DECREASED GLUCOSE; Start 01/13/17 at 19:00 Glucose (Glutose) 22.5 gm Q15M PRN PO DECREASED GLUCOSE; Start 01/13/17 at 19: 00 Dextrose (D50w Syringe) 25 ml Q15M PRN IV DECREASED GLUCOSE; Start 01/13/17 at 19:00 Dextrose (D50w Syringe) 50 ml Q15M PRN IV DECREASED GLUCOSE; Start 01/13/17 at 19:00 Glucagon (Glucagen) 1 mg Q15M PRN IM DECREASED GLUCOSE; Start 01/13/17 at 19: 00 Glucose (Glutose) 15 gm Q15M PRN BUCCAL DECREASED GLUCOSE; Start 01/13/17 at 19:00 Morphine Sulfate (morphine) 2 mg Q4H PRN IV PAIN Last administered on 02:13; Admin Dose 2 MG; Start 01/14/17 at 01:00 Promethazine HCl/ Codeine (Phenergan/ Codeine) 5 ml Q4H PRN PO COUGH Last administered on 01/30/17 22:20; Admin Dose 5 ML; Start 01/14/17 at 12:30 Hydrocodone Bit/ Homatropine Methylb (Hycodan Liquid) 5 ml Q6 PRN PO COUGH Last administered on 01/30/17 20:53; Admin Dose 5 ML; Start 01/14/17 at 13:30 Diagnostic Test (Pha) (Accu-Chek) 1 ea 02 XX Last administered on 01/29/17 02 :25; Admin Dose 1 EA; Start 01/15/17 at 02:00 Carvedilol (Coreg) 6.25 mg BID PO Last administered on 01/31/17 09:13; Admin Dose 6.25 MG; Start 01/21/17 at 21:00 Apixaban (Eliquis) 2.5 mg BID PO Last administered on 01/31/17 09:12; Admin Dose 2.5 MG; Start 01/28/17 at 21:00 Acetaminophen/ Hydrocodone Bitart ([place] (7.5-325)) 1 tab Q6H PRN PO pain Last administered on 01/30/17 22:23; Admin Dose 1 TAB; Start 01/28/17 at 18:30 Docusate Sodium (Colace) 100 mg BID PRN PO CONSTIPATION Last administered on 16:12; Admin Dose 100 MG; Start 01/29/17 at 16:00 Lorazepam (Ativan) 0.5 mg Q3 PRN IV ANXIETY Last administered on 01/31/17 09: 22; Admin Dose 0.5 MG; Start 01/30/17 at 18:00 CARYL PANTOJA Jan 31, 2017 09:59
[2017-01-31] MEDS: HYDROCODONE/APAP (7.5/325) TAB PO PRN (10:41)
[2017-01-31] MEDS: CEFAZOLIN 1 GM/50 ML (PMX) 50 ML IVPB SCH ×2 (10:42→21:50)
--- NOTE | 2017-01-31 11:58 | CONS ---
Date/Time of Note Date/Time of Note DATE: 01/31/17 TIME: 11:57 Consult Date/Type/Reason Admit Date/Time Jan 13, 2017 at 18:04 Initial Consult Date 01/20/17 Type of Consultation: Pulmonary Ordering Provider: KIRSTIN SPANN MD Subjective No significant changes in pulmonary status Objective Vital Signs Date Time Temp Pulse Resp B/P Pulse Ox O2 Delivery O2 Flow Rate FiO2 01/31/17 11:38 97.6 68 17 144/67 95 01/31/17 01:38 Nasal Cannula 2.0 01/30/17 17:01 21 Intake and Output 01/30/17 01/30/17 01/31/17 15:00 23:00 07:00 Intake Total 500 ml 1600 ml 700 ml Output Total 2500 ml Balance -2000 ml 1600 ml 700 ml Exam GENERAL: Elderly lady comfortable at rest no acute distress VITAL SIGNS: per chart NECK: Supple. No JVD or lymphadenopathy. CARDIAC EXAM: S1, S2. No added sounds or murmurs. CHEST: Diminished air entry bilaterally ABDOMEN: Soft, nontender. No guarding or rebound. EXTREMITIES: No cyanosis, clubbing or edema. NEUROLOGIC: Generalized weakness. No focal deficits. Results/Medications Result Diagram: 01/31/17 0605 01/31/17 0605 Results 24 hrs Laboratory Tests Test 01/30/17 12:05 01/30/17 17:51 01/30/17 19:51 01/31/17 01:15 Bedside Glucose 194 188 208 257 H Test 01/31/17 06:05 01/31/17 08:13 01/31/17 11:46 White Blood Count 4.7 L Red Blood Count 2.30 L Hemoglobin 7.6 L Hematocrit 24.6 L Mean Corpuscular Volume 107.0 H Mean Corpuscular Hemoglobin 33.0 Mean Corpuscular Hemoglobin Concent 30.9 L Red Cell Distribution Width 15.0 H Platelet Count 177 Mean Platelet Volume 11.1 H Neutrophils % 49.4 Lymphocytes % 26.1 Monocytes % 14.2 H Eosinophils % 9.5 H Basophils % 0.4 Nucleated Red Blood Cells % 0.0 Neutrophils # 2.3 Lymphocytes # 1.2 Monocytes # 0.7 Eosinophils # 0.5 Basophils # 0.0 Nucleated Red Blood Cells # 0.0 Sodium Level 139 Potassium Level 5.8 H Chloride Level 101 Carbon Dioxide Level 27 Anion Gap 17 H Blood Urea Nitrogen 93 H Creatinine 6.99 H Glucose Level 142 # Calcium Level 7.8 L Bedside Glucose 204 184 Medications Current Medications Ondansetron HCl (Zofran Inj) 4 mg Q6H PRN IV NAUSEA AND/OR VOMITING Last administered on 01/17/17 20:45; Admin Dose 4 MG; Start 01/13/17 at 18:30 Nitroglycerin (Nitroglycerin (Sl Tab) 0.4 Mg) 1 tab Q5M PRN SL CHEST PAIN; Start 01/13/17 at 18:30 Acetaminophen (Tylenol Tab) 650 mg Q6H PRN PO PAIN LEVEL 1-3 OR FEVER Last administered on 01/30/17 06:04; Admin Dose 650 MG; Start 01/13/17 at 18:30 Morphine Sulfate (morphine) 2 mg Q4H PRN IV PAIN LEVEL 7-10 Last administered on 01/31/17 11:53; Admin Dose 2 MG; Start 01/13/17 at 18:30 Famotidine (Pepcid) 10 mg HS PO Last administered on 01/30/17 19:55; Admin Dose 10 MG; Start 01/13/17 at 21:00 Amlodipine Besylate (Norvasc) 10 mg DAILY PO Last administered on 01/31/17 09 :13; Admin Dose 10 MG; Start 01/14/17 at 09:00 Atorvastatin Calcium (Lipitor) 40 mg QHS PO Last administered on 01/30/17 19: 55; Admin Dose 40 MG; Start 01/13/17 at 21:00 Clonidine (Catapres) 0.2 mg TID PRN PO FOR SBP >160 Last administered on 16:43; Admin Dose 0.2 MG; Start 01/13/17 at 19:00 Clopidogrel Bisulfate (plaVIX) 75 mg DAILY PO Last administered on 01/31/17 09:12; Admin Dose 75 MG; Start 01/14/17 at 09:00 Folic Acid (Folic Acid) 1 mg DAILY PO Last administered on 01/31/17 09:12; Admin Dose 1 MG; Start 01/14/17 at 09:00 Gabapentin (Neurontin) 300 mg BID PO Last administered on 01/31/17 09:12; Admin Dose 300 MG; Start 01/13/17 at 21:00 Linagliptin (Tradjenta) 5 mg DAILY PO Last administered on 01/31/17 09:12; Admin Dose 5 MG; Start 01/14/17 at 09:00 Multivit/Ca Carb/ B Cmplx/FA/Prenat (Addie-Mikayla) 1 tab DAILY PO Last administered on 01/31/17 09:12; Admin Dose 1 TAB; Start 01/14/17 at 09:00 Polyethylene Glycol (Miralax) 17 gm BID PO Last administered on 01/31/17 09: 12; Admin Dose 17 GM; Start 01/13/17 at 21:00 Miscellaneous Information 1 ea NOTE XX ; Start 01/13/17 at 19:00 Glucose (Glutose) 15 gm Q15M PRN PO DECREASED GLUCOSE; Start 01/13/17 at 19:00 Glucose (Glutose) 22.5 gm Q15M PRN PO DECREASED GLUCOSE; Start 01/13/17 at 19: 00 Dextrose (D50w Syringe) 25 ml Q15M PRN IV DECREASED GLUCOSE; Start 01/13/17 at 19:00 Dextrose (D50w Syringe) 50 ml Q15M PRN IV DECREASED GLUCOSE; Start 01/13/17 at 19:00 Glucagon (Glucagen) 1 mg Q15M PRN IM DECREASED GLUCOSE; Start 01/13/17 at 19: 00 Glucose (Glutose) 15 gm Q15M PRN BUCCAL DECREASED GLUCOSE; Start 01/13/17 at 19:00 Morphine Sulfate (morphine) 2 mg Q4H PRN IV PAIN Last administered on 02:13; Admin Dose 2 MG; Start 01/14/17 at 01:00 Promethazine HCl/ Codeine (Phenergan/ Codeine) 5 ml Q4H PRN PO COUGH Last administered on 01/30/17 22:20; Admin Dose 5 ML; Start 01/14/17 at 12:30 Hydrocodone Bit/ Homatropine Methylb (Hycodan Liquid) 5 ml Q6 PRN PO COUGH Last administered on 01/30/17 20:53; Admin Dose 5 ML; Start 01/14/17 at 13:30 Diagnostic Test (Pha) (Accu-Chek) 1 ea 02 XX Last administered on 01/29/17 02 :25; Admin Dose 1 EA; Start 01/15/17 at 02:00 Carvedilol (Coreg) 6.25 mg BID PO Last administered on 01/31/17 09:13; Admin Dose 6.25 MG; Start 01/21/17 at 21:00 Apixaban (Eliquis) 2.5 mg BID PO Last administered on 01/31/17 09:12; Admin Dose 2.5 MG; Start 01/28/17 at 21:00 Acetaminophen/ Hydrocodone Bitart ([place] (7.5-325)) 1 tab Q6H PRN PO pain Last administered on 01/31/17 10:41; Admin Dose 1 TAB; Start 01/28/17 at 18:30 Docusate Sodium (Colace) 100 mg BID PRN PO CONSTIPATION Last administered on 16:12; Admin Dose 100 MG; Start 01/29/17 at 16:00 Lorazepam 0.5 mg 0.5 mg Q3 PRN IV ANXIETY Last administered on 01/31/17 09:22 ; Admin Dose 0.5 MG; Start 01/30/17 at 18:00 Cefazolin Sodium (Ancef 1 Gm/50 ml (Pmx)) 50 ml @ 100 mls/hr Q8 IVPB Last administered on 01/31/17 10:42; Admin Dose 100 MLS/HR; Start 01/31/17 at 11: 00 Assessment/Plan Chief Complaint/Hosp Course Assessment 1. Hypoxemia, likely secondary to underlying chronic bronchitis and mild emphysema. 2. Bibasilar atelectasis with hypoventilation. 3. Probable obstructive sleep apnea. 4. Volume overload from underlying renal failure, although these are likely contributing to her hypoxemia in addition to immobility, I recommend: End-stage renal failure on hemodialysis 5. Anemia likely secondary to chronic renal disease. 1. Continue hemodialysis. Epogen and iron per nephrology team. 2. Bronchodilators. 3. Encourage out of bed. 4. Outpatient sleep study. DC planning okay from primary standpoint Problems: DIONISIO CONTRERAS MD, [facility] Jan 31, 2017 11:58
--- NOTE | 2017-01-31 13:14 | CONS ---
Date/Time of Note Date/Time of Note DATE: 01/31/17 TIME: 13:13 Assessment/Plan Assessment/Plan Chief Complaint/Hosp Course 1. Fluid overload,BETTER 2. End-stage renal disease. 3. Hypertension. 4. Diabetes mellitus, controlled. 5. Hyperkalemia, resolved. 6. Atherosclerotic heart disease. 7. Peripheral vascular disease. 8. History of dyslipidemia. 9 History of pneumonia. 10. History of leg cellulitis. 11. History of wound dehiscence. 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 14. Right leg wound Problems: Additional Assessment/Plan 1. continue HD 2. Continue fluid restrictions Consultation Date/Type/Reason Admit Date/Time Jan 13, 2017 at 18:04 Initial Consult Date nephrology Type of Consultation: nephrology Reason for Consultation Dr Garcia Referring Provider: KIRSTIN SPANN MD Exam/Review of Systems Vital Signs Vitals Vital Signs Date Time Temp Pulse Resp B/P Pulse Ox O2 Delivery O2 Flow Rate FiO2 01/31/17 12:13 68 01/31/17 11:38 97.6 17 144/67 95 01/31/17 01:38 Nasal Cannula 2.0 01/30/17 17:01 21 Intake and Output 01/30/17 01/30/17 01/31/17 15:00 23:00 07:00 Intake Total 500 ml 1600 ml 700 ml Output Total 2500 ml Balance -2000 ml 1600 ml 700 ml Exam Constitutional: alert, oriented Neck: supple Respiratory: clear to auscultation Musculoskeletal: other (left leg wound), swelling Results Result Diagram: 01/31/17 0601/31/17 0605 Results 24 hrs Laboratory Tests Test 01/30/17 17:51 01/30/17 19:51 01/31/17 01:15 01/31/17 06:05 Bedside Glucose 188 208 257 H White Blood Count 4.7 L Red Blood Count 2.30 L Hemoglobin 7.6 L Hematocrit 24.6 L Mean Corpuscular Volume 107.0 H Mean Corpuscular Hemoglobin 33.0 Mean Corpuscular Hemoglobin Concent 30.9 L Red Cell Distribution Width 15.0 H Platelet Count 177 Mean Platelet Volume 11.1 H Neutrophils % 49.4 Lymphocytes % 26.1 Monocytes % 14.2 H Eosinophils % 9.5 H Basophils % 0.4 Nucleated Red Blood Cells % 0.0 Neutrophils # 2.3 Lymphocytes # 1.2 Monocytes # 0.7 Eosinophils # 0.5 Basophils # 0.0 Nucleated Red Blood Cells # 0.0 Sodium Level 139 Potassium Level 5.8 H Chloride Level 101 Carbon Dioxide Level 27 Anion Gap 17 H Blood Urea Nitrogen 93 H Creatinine 6.99 H Glucose Level 142 # Calcium Level 7.8 L Test 01/31/17 08:13 01/31/17 11:46 Bedside Glucose 204 184 Medications Medications Current Medications Ondansetron HCl (Zofran Inj) 4 mg Q6H PRN IV NAUSEA AND/OR VOMITING Last administered on 01/17/17 20:45; Admin Dose 4 MG; Start 01/13/17 at 18:30 Nitroglycerin (Nitroglycerin (Sl Tab) 0.4 Mg) 1 tab Q5M PRN SL CHEST PAIN; Start 01/13/17 at 18:30 Acetaminophen (Tylenol Tab) 650 mg Q6H PRN PO PAIN LEVEL 1-3 OR FEVER Last administered on 01/30/17 06:04; Admin Dose 650 MG; Start 01/13/17 at 18:30 Morphine Sulfate (morphine) 2 mg Q4H PRN IV PAIN LEVEL 7-10 Last administered on 01/31/17 11:53; Admin Dose 2 MG; Start 01/13/17 at 18:30 Famotidine (Pepcid) 10 mg HS PO Last administered on 01/30/17 19:55; Admin Dose 10 MG; Start 01/13/17 at 21:00 Amlodipine Besylate (Norvasc) 10 mg DAILY PO Last administered on 01/31/17 09 :13; Admin Dose 10 MG; Start 01/14/17 at 09:00 Atorvastatin Calcium (Lipitor) 40 mg QHS PO Last administered on 01/30/17 19: 55; Admin Dose 40 MG; Start 01/13/17 at 21:00 Clonidine (Catapres) 0.2 mg TID PRN PO FOR SBP >160 Last administered on 16:43; Admin Dose 0.2 MG; Start 01/13/17 at 19:00 Clopidogrel Bisulfate (plaVIX) 75 mg DAILY PO Last administered on 01/31/17 09:12; Admin Dose 75 MG; Start 01/14/17 at 09:00 Folic Acid (Folic Acid) 1 mg DAILY PO Last administered on 01/31/17 09:12; Admin Dose 1 MG; Start 01/14/17 at 09:00 Gabapentin (Neurontin) 300 mg BID PO Last administered on 01/31/17 09:12; Admin Dose 300 MG; Start 01/13/17 at 21:00 Linagliptin (Tradjenta) 5 mg DAILY PO Last administered on 01/31/17 09:12; Admin Dose 5 MG; Start 01/14/17 at 09:00 Multivit/Ca Carb/ B Cmplx/FA/Prenat (Addie-Mikayla) 1 tab DAILY PO Last administered on 01/31/17 09:12; Admin Dose 1 TAB; Start 01/14/17 at 09:00 Polyethylene Glycol (Miralax) 17 gm BID PO Last administered on 01/31/17 09: 12; Admin Dose 17 GM; Start 01/13/17 at 21:00 Miscellaneous Information 1 ea NOTE XX ; Start 01/13/17 at 19:00 Glucose (Glutose) 15 gm Q15M PRN PO DECREASED GLUCOSE; Start 01/13/17 at 19:00 Glucose (Glutose) 22.5 gm Q15M PRN PO DECREASED GLUCOSE; Start 01/13/17 at 19: 00 Dextrose (D50w Syringe) 25 ml Q15M PRN IV DECREASED GLUCOSE; Start 01/13/17 at 19:00 Dextrose (D50w Syringe) 50 ml Q15M PRN IV DECREASED GLUCOSE; Start 01/13/17 at 19:00 Glucagon (Glucagen) 1 mg Q15M PRN IM DECREASED GLUCOSE; Start 01/13/17 at 19: 00 Glucose (Glutose) 15 gm Q15M PRN BUCCAL DECREASED GLUCOSE; Start 01/13/17 at 19:00 Morphine Sulfate (morphine) 2 mg Q4H PRN IV PAIN Last administered on 02:13; Admin Dose 2 MG; Start 01/14/17 at 01:00 Promethazine HCl/ Codeine (Phenergan/ Codeine) 5 ml Q4H PRN PO COUGH Last administered on 01/30/17 22:20; Admin Dose 5 ML; Start 01/14/17 at 12:30 Hydrocodone Bit/ Homatropine Methylb (Hycodan Liquid) 5 ml Q6 PRN PO COUGH Last administered on 01/30/17 20:53; Admin Dose 5 ML; Start 01/14/17 at 13:30 Diagnostic Test (Pha) (Accu-Chek) 1 ea 02 XX Last administered on 01/29/17 02 :25; Admin Dose 1 EA; Start 01/15/17 at 02:00 Carvedilol (Coreg) 6.25 mg BID PO Last administered on 01/31/17 09:13; Admin Dose 6.25 MG; Start 01/21/17 at 21:00 Apixaban (Eliquis) 2.5 mg BID PO Last administered on 01/31/17 09:12; Admin Dose 2.5 MG; Start 01/28/17 at 21:00 Acetaminophen/ Hydrocodone Bitart ([place] (7.5-325)) 1 tab Q6H PRN PO pain Last administered on 01/31/17 10:41; Admin Dose 1 TAB; Start 01/28/17 at 18:30 Docusate Sodium (Colace) 100 mg BID PRN PO CONSTIPATION Last administered on 16:12; Admin Dose 100 MG; Start 01/29/17 at 16:00 Lorazepam 0.5 mg 0.5 mg Q3 PRN IV ANXIETY Last administered on 01/31/17 09:22 ; Admin Dose 0.5 MG; Start 01/30/17 at 18:00 Cefazolin Sodium (Ancef 1 Gm/50 ml (Pmx)) 50 ml @ 100 mls/hr Q8 IVPB Last administered on 01/31/17 10:42; Admin Dose 100 MLS/HR; Start 01/31/17 at 11: 00 KUNAL RAMOS Jan 31, 2017 13:14
--- NOTE | 2017-01-31 14:24 | CONS ---
Date/Time of Note Date/Time of Note DATE: 01/31/17 TIME: 14:20 Assessment/Plan Assessment/Plan Additional Assessment/Plan 1. Atrial fibrillation 2. Hypertension 3. Congestive heart failure (CHF) 4. End-stage renal disease on hemodialysis. 5. Diabetes mellitus. 6. Peripheral arterial disease, status post lower extremity bypass. 7. Dyslipidemia. 8. Anemia Avoid Volume Overload HD as scheduled Continue Coreg and Norvasc Continue Eliquis and Plavix Continue Insulin Continue Lipitor Continue Antibiotics Consultation Date/Type/Reason Admit Date/Time Jan 13, 2017 at 18:04 Constitutional: other (MALFUNC AVF OK NOW) Respiratory: no complaints Cardiovascular: no complaints Gastrointestinal: no complaints Genitourinary: no complaints Musculoskeletal: no complaints Skin: no complaints Neurologic: no complaints Psychological: no complaints Past Medical History Medical History: diabetes, hypertension, renal disease Past Surgical History Past Surgical Hx: other Social History Alcohol Use: none Smoking Status: Former smoker Drug Use: none Exam/Review of Systems Vital Signs Vitals Vital Signs Date Time Temp Pulse Resp B/P Pulse Ox O2 Delivery O2 Flow Rate FiO2 01/31/17 12:13 68 01/31/17 11:38 97.6 17 144/67 95 01/31/17 01:38 Nasal Cannula 2.0 01/30/17 17:01 21 Intake and Output 01/30/17 01/30/17 01/31/17 15:00 23:00 07:00 Intake Total 500 ml 1600 ml 700 ml Output Total 2500 ml Balance -2000 ml 1600 ml 700 ml Exam Constitutional: alert Head: atraumatic, normocephalic Neck: non-tender, supple Respiratory: clear to auscultation Cardiovascular: irregular rhythm Gastrointestinal: nl liver, spleen, non-tender, soft Results Result Diagram: 01/31/17 0605 01/31/17 0605 Results 24 hrs Laboratory Tests Test 01/30/17 17:51 01/30/17 19:51 01/31/17 01:15 01/31/17 06:05 Bedside Glucose 188 208 257 H White Blood Count 4.7 L Red Blood Count 2.30 L Hemoglobin 7.6 L Hematocrit 24.6 L Mean Corpuscular Volume 107.0 H Mean Corpuscular Hemoglobin 33.0 Mean Corpuscular Hemoglobin Concent 30.9 L Red Cell Distribution Width 15.0 H Platelet Count 177 Mean Platelet Volume 11.1 H Neutrophils % 49.4 Lymphocytes % 26.1 Monocytes % 14.2 H Eosinophils % 9.5 H Basophils % 0.4 Nucleated Red Blood Cells % 0.0 Neutrophils # 2.3 Lymphocytes # 1.2 Monocytes # 0.7 Eosinophils # 0.5 Basophils # 0.0 Nucleated Red Blood Cells # 0.0 Sodium Level 139 Potassium Level 5.8 H Chloride Level 101 Carbon Dioxide Level 27 Anion Gap 17 H Blood Urea Nitrogen 93 H Creatinine 6.99 H Glucose Level 142 # Calcium Level 7.8 L Test 01/31/17 08:13 01/31/17 11:46 Bedside Glucose 204 184 Medications Medications Current Medications Ondansetron HCl (Zofran Inj) 4 mg Q6H PRN IV NAUSEA AND/OR VOMITING Last administered on 01/17/17 20:45; Admin Dose 4 MG; Start 01/13/17 at 18:30 Nitroglycerin (Nitroglycerin (Sl Tab) 0.4 Mg) 1 tab Q5M PRN SL CHEST PAIN; Start 01/13/17 at 18:30 Acetaminophen (Tylenol Tab) 650 mg Q6H PRN PO PAIN LEVEL 1-3 OR FEVER Last administered on 01/30/17 06:04; Admin Dose 650 MG; Start 01/13/17 at 18:30 Morphine Sulfate (morphine) 2 mg Q4H PRN IV PAIN LEVEL 7-10 Last administered on 01/31/17 11:53; Admin Dose 2 MG; Start 01/13/17 at 18:30 Famotidine (Pepcid) 10 mg HS PO Last administered on 01/30/17 19:55; Admin Dose 10 MG; Start 01/13/17 at 21:00 Amlodipine Besylate (Norvasc) 10 mg DAILY PO Last administered on 01/31/17 09 :13; Admin Dose 10 MG; Start 01/14/17 at 09:00 Atorvastatin Calcium (Lipitor) 40 mg QHS PO Last administered on 01/30/17 19: 55; Admin Dose 40 MG; Start 01/13/17 at 21:00 Clonidine (Catapres) 0.2 mg TID PRN PO FOR SBP >160 Last administered on 16:43; Admin Dose 0.2 MG; Start 01/13/17 at 19:00 Clopidogrel Bisulfate (plaVIX) 75 mg DAILY PO Last administered on 01/31/17 09:12; Admin Dose 75 MG; Start 01/14/17 at 09:00 Folic Acid (Folic Acid) 1 mg DAILY PO Last administered on 01/31/17 09:12; Admin Dose 1 MG; Start 01/14/17 at 09:00 Gabapentin (Neurontin) 300 mg BID PO Last administered on 01/31/17 09:12; Admin Dose 300 MG; Start 01/13/17 at 21:00 Linagliptin (Tradjenta) 5 mg DAILY PO Last administered on 01/31/17 09:12; Admin Dose 5 MG; Start 01/14/17 at 09:00 Multivit/Ca Carb/ B Cmplx/FA/Prenat (Addie-Mikayla) 1 tab DAILY PO Last administered on 01/31/17 09:12; Admin Dose 1 TAB; Start 01/14/17 at 09:00 Polyethylene Glycol (Miralax) 17 gm BID PO Last administered on 01/31/17 09: 12; Admin Dose 17 GM; Start 01/13/17 at 21:00 Miscellaneous Information 1 ea NOTE XX ; Start 01/13/17 at 19:00 Glucose (Glutose) 15 gm Q15M PRN PO DECREASED GLUCOSE; Start 01/13/17 at 19:00 Glucose (Glutose) 22.5 gm Q15M PRN PO DECREASED GLUCOSE; Start 01/13/17 at 19: 00 Dextrose (D50w Syringe) 25 ml Q15M PRN IV DECREASED GLUCOSE; Start 01/13/17 at 19:00 Dextrose (D50w Syringe) 50 ml Q15M PRN IV DECREASED GLUCOSE; Start 01/13/17 at 19:00 Glucagon (Glucagen) 1 mg Q15M PRN IM DECREASED GLUCOSE; Start 01/13/17 at 19: 00 Glucose (Glutose) 15 gm Q15M PRN BUCCAL DECREASED GLUCOSE; Start 01/13/17 at 19:00 Morphine Sulfate (morphine) 2 mg Q4H PRN IV PAIN Last administered on 02:13; Admin Dose 2 MG; Start 01/14/17 at 01:00 Promethazine HCl/ Codeine (Phenergan/ Codeine) 5 ml Q4H PRN PO COUGH Last administered on 01/30/17 22:20; Admin Dose 5 ML; Start 01/14/17 at 12:30 Hydrocodone Bit/ Homatropine Methylb (Hycodan Liquid) 5 ml Q6 PRN PO COUGH Last administered on 01/30/17 20:53; Admin Dose 5 ML; Start 01/14/17 at 13:30 Diagnostic Test (Pha) (Accu-Chek) 1 ea 02 XX Last administered on 01/29/17 02 :25; Admin Dose 1 EA; Start 01/15/17 at 02:00 Carvedilol (Coreg) 6.25 mg BID PO Last administered on 01/31/17 09:13; Admin Dose 6.25 MG; Start 01/21/17 at 21:00 Apixaban (Eliquis) 2.5 mg BID PO Last administered on 01/31/17 09:12; Admin Dose 2.5 MG; Start 01/28/17 at 21:00 Acetaminophen/ Hydrocodone Bitart ([place] (7.5-325)) 1 tab Q6H PRN PO pain Last administered on 01/31/17 10:41; Admin Dose 1 TAB; Start 01/28/17 at 18:30 Docusate Sodium (Colace) 100 mg BID PRN PO CONSTIPATION Last administered on 16:12; Admin Dose 100 MG; Start 01/29/17 at 16:00 Lorazepam 0.5 mg 0.5 mg Q3 PRN IV ANXIETY Last administered on 01/31/17 09:22 ; Admin Dose 0.5 MG; Start 01/30/17 at 18:00 Cefazolin Sodium (Ancef 1 Gm/50 ml (Pmx)) 50 ml @ 100 mls/hr Q8 IVPB Last administered on 01/31/17 10:42; Admin Dose 100 MLS/HR; Start 01/31/17 at 11: 00 TIGIST HURST M.D. Jan 31, 2017 14:24
[2017-01-31] MEDS: ACETAMINOPHEN 325 MG TAB PO PRN (20:00)
[2017-01-31] MEDS: ATORVASTATIN 40 MG TAB PO SCH (20:02)
[2017-01-31] MEDS: FAMOTIDINE 20 MG TAB PO SCH (20:03)
[2017-02-01] VITALS (19 sets, daily range): BP systolic 99–168; BP diastolic 54–88; PULSE 60–80; RESP 17–19
[2017-02-01] MEDS: LEVALBUTEROL (NEB) 0.63 MG/3 ML AMP HHN SCH ×4 (01:33→19:45)
[2017-02-01] MEDS: ACCU-CHEK XX SCH (02:34)
[2017-02-01] MEDS: CEFAZOLIN 1 GM/50 ML (PMX) 50 ML IVPB SCH ×3 (06:28→21:45)
[2017-02-01] MEDS: morphine 2 MG INJ IV PRN ×4 (06:29→21:45)
[2017-02-01] MEDS: LORAZEPAM 2 MG INJ IV PRN ×3 (06:29→20:40)
[2017-02-01] MEDS: PROMETHAZINE/CODEINE 5ML CUP PO PRN ×2 (06:30→20:25)
[2017-02-01] MEDS: PANTOPRAZOLE (EC) 40 MG TAB PO SCH (07:52)
[2017-02-01] MEDS: SEVELAMER CARBONATE 0.8 GM PKT PO SCH ×3 (07:52→17:15)
[2017-02-01] MEDS: INSULIN ASPART [NOVOLOG] 3 ML PEN SC SCH ×7 (07:57→23:13)
[2017-02-01] MEDS: POLYETHYLENE GLYCOL 17 GM PACKET PO SCH ×3 (08:28→21:00)
[2017-02-01] MEDS: FOLIC ACID 1 MG TAB PO SCH (08:29)
[2017-02-01] MEDS: LINAGLIPTIN 5 MG TABLET PO SCH (08:29)
[2017-02-01] MEDS: GABAPENTIN 300 MG CAP PO SCH ×2 (08:29→20:25)
[2017-02-01] MEDS: APIXABAN 5 MG TABLET PO SCH ×2 (08:29→20:26)
[2017-02-01] MEDS: MULTIVIT/CA CARB/B CMPLX/FA TAB PO SCH (08:29)
[2017-02-01] MEDS: CLOPIDOGREL 75 MG TAB PO SCH (08:29)
[2017-02-01] MEDS: ACETAMINOPHEN 325 MG TAB PO PRN ×2 (08:29→20:40)
[2017-02-01] MEDS: AMLODIPINE 10 MG TAB PO SCH (08:30)
--- NOTE | 2017-02-01 10:31 | CONS ---
Date/Time of Note Date/Time of Note DATE: 02/01/17 TIME: 10:30 Consult Date/Type/Reason Admit Date/Time Jan 13, 2017 at 18:04 Initial Consult Date 01/20/17 Type of Consultation: Pulmonary Ordering Provider: KIRSTIN SPANN MD Subjective Sitting up in chair. Comfortable. Objective Vital Signs Date Time Temp Pulse Resp B/P Pulse Ox O2 Delivery O2 Flow Rate FiO2 02/01/17 08:10 Nasal Cannula 3.0 02/01/17 08:04 78 02/01/17 07:26 98.3 18 144/65 94 01/30/17 17:01 21 Intake and Output 01/31/17 01/31/17 02/01/17 15:00 23:00 07:00 Intake Total 50 ml 2050 ml 270 ml Balance 50 ml 2050 ml 270 ml Exam GENERAL: Elderly lady comfortable at rest no acute distress VITAL SIGNS: per chart NECK: Supple. No JVD or lymphadenopathy. CARDIAC EXAM: S1, S2. No added sounds or murmurs. CHEST: Diminished air entry bilaterally ABDOMEN: Soft, nontender. No guarding or rebound. EXTREMITIES: No cyanosis, clubbing or edema. NEUROLOGIC: Generalized weakness. No focal deficits. Results/Medications Result Diagram: 01/31/1760401/31/17604 Results 24 hrs Laboratory Tests Test 01/31/17 11:46 01/31/17 17:29 01/31/17 20:11 02/01/17 02:30 Bedside Glucose 184 175 208 177 Test 02/01/17 07:55 Bedside Glucose 194 Medications Current Medications Ondansetron HCl (Zofran Inj) 4 mg Q6H PRN IV NAUSEA AND/OR VOMITING Last administered on 01/17/17 20:45; Admin Dose 4 MG; Start 01/13/17 at 18:30 Nitroglycerin (Nitroglycerin (Sl Tab) 0.4 Mg) 1 tab Q5M PRN SL CHEST PAIN; Start 01/13/17 at 18:30 Acetaminophen (Tylenol Tab) 650 mg Q6H PRN PO PAIN LEVEL 1-3 OR FEVER Last administered on 02/01/17 08:29; Admin Dose 650 MG; Start 01/13/17 at 18:30 Morphine Sulfate (morphine) 2 mg Q4H PRN IV PAIN LEVEL 7-10 Last administered on 02/01/17 06:29; Admin Dose 2 MG; Start 01/13/17 at 18:30 Famotidine (Pepcid) 10 mg HS PO Last administered on 01/31/17 20:03; Admin Dose 10 MG; Start 01/13/17 at 21:00 Amlodipine Besylate (Norvasc) 10 mg DAILY PO Last administered on 02/01/17 08 :30; Admin Dose 10 MG; Start 01/14/17 at 09:00 Atorvastatin Calcium (Lipitor) 40 mg QHS PO Last administered on 01/31/17 20: 02; Admin Dose 40 MG; Start 01/13/17 at 21:00 Clonidine (Catapres) 0.2 mg TID PRN PO FOR SBP >160 Last administered on 16:43; Admin Dose 0.2 MG; Start 01/13/17 at 19:00 Clopidogrel Bisulfate (plaVIX) 75 mg DAILY PO Last administered on 02/01/17 08:29; Admin Dose 75 MG; Start 01/14/17 at 09:00 Folic Acid (Folic Acid) 1 mg DAILY PO Last administered on 02/01/17 08:29; Admin Dose 1 MG; Start 01/14/17 at 09:00 Gabapentin (Neurontin) 300 mg BID PO Last administered on 02/01/17 08:29; Admin Dose 300 MG; Start 01/13/17 at 21:00 Linagliptin (Tradjenta) 5 mg DAILY PO Last administered on 02/01/17 08:29; Admin Dose 5 MG; Start 01/14/17 at 09:00 Multivit/Ca Carb/ B Cmplx/FA/Prenat (Addie-Mikayla) 1 tab DAILY PO Last administered on 02/01/17 08:29; Admin Dose 1 TAB; Start 01/14/17 at 09:00 Polyethylene Glycol (Miralax) 17 gm BID PO Last administered on 02/01/17 08: 28; Admin Dose 17 GM; Start 01/13/17 at 21:00 Miscellaneous Information 1 ea NOTE XX ; Start 01/13/17 at 19:00 Glucose (Glutose) 15 gm Q15M PRN PO DECREASED GLUCOSE; Start 01/13/17 at 19:00 Glucose (Glutose) 22.5 gm Q15M PRN PO DECREASED GLUCOSE; Start 01/13/17 at 19: 00 Dextrose (D50w Syringe) 25 ml Q15M PRN IV DECREASED GLUCOSE; Start 01/13/17 at 19:00 Dextrose (D50w Syringe) 50 ml Q15M PRN IV DECREASED GLUCOSE; Start 01/13/17 at 19:00 Glucagon (Glucagen) 1 mg Q15M PRN IM DECREASED GLUCOSE; Start 01/13/17 at 19: 00 Glucose (Glutose) 15 gm Q15M PRN BUCCAL DECREASED GLUCOSE; Start 01/13/17 at 19:00 Morphine Sulfate (morphine) 2 mg Q4H PRN IV PAIN Last administered on 02:13; Admin Dose 2 MG; Start 01/14/17 at 01:00 Promethazine HCl/ Codeine (Phenergan/ Codeine) 5 ml Q4H PRN PO COUGH Last administered on 02/01/17 06:30; Admin Dose 5 ML; Start 01/14/17 at 12:30 Hydrocodone Bit/ Homatropine Methylb (Hycodan Liquid) 5 ml Q6 PRN PO COUGH Last administered on 01/30/17 20:53; Admin Dose 5 ML; Start 01/14/17 at 13:30 Diagnostic Test (Pha) (Accu-Chek) 1 ea 02 XX Last administered on 02/01/17 02 :34; Admin Dose 1 EA; Start 01/15/17 at 02:00 Carvedilol (Coreg) 6.25 mg BID PO Last administered on 02/01/17 08:30; Admin Dose 6.25 MG; Start 01/21/17 at 21:00 Apixaban (Eliquis) 2.5 mg BID PO Last administered on 02/01/17 08:29; Admin Dose 2.5 MG; Start 01/28/17 at 21:00 Acetaminophen/ Hydrocodone Bitart ([place] (7.5-325)) 1 tab Q6H PRN PO pain Last administered on 01/31/17 10:41; Admin Dose 1 TAB; Start 01/28/17 at 18:30 Docusate Sodium (Colace) 100 mg BID PRN PO CONSTIPATION Last administered on 16:12; Admin Dose 100 MG; Start 01/29/17 at 16:00 Lorazepam 0.5 mg 0.5 mg Q3 PRN IV ANXIETY Last administered on 02/01/17 06:29 ; Admin Dose 0.5 MG; Start 01/30/17 at 18:00 Cefazolin Sodium (Ancef 1 Gm/50 ml (Pmx)) 50 ml @ 100 mls/hr Q8 IVPB Last administered on 02/01/17 06:28; Admin Dose 100 MLS/HR; Start 01/31/17 at 11: 00 Assessment/Plan Chief Complaint/Hosp Course Assessment 1. Hypoxemia, likely secondary to underlying chronic bronchitis and mild emphysema. 2. Bibasilar atelectasis with hypoventilation. 3. Probable obstructive sleep apnea. 4. Volume overload from underlying renal failure, although these are likely contributing to her hypoxemia in addition to immobility, I recommend: End-stage renal failure on hemodialysis 5. Anemia likely secondary to chronic renal disease. 1. Continue hemodialysis. Epogen and iron per nephrology team. 2. Bronchodilators. 3. Encourage out of bed. 4. Outpatient sleep study. DC planning okay from primary standpoint We will sign off no new pulmonary recommendations. Problems: DIONISIO CONTRERAS MD, [facility] Feb 01, 2017 10:31
--- NOTE | 2017-02-01 10:54 | PN ---
Date/Time of Note Date/Time of Note DATE: 02/01/17 TIME: 10:54 Assessment/Plan VTE Prophylaxis VTE Prophylaxis Intervention: other Lines/Catheters IV Catheter Type (from Nrs): [place] [facility] Urinary Cath still in place: No Assessment/Plan Chief Complaint/Hosp Course - Chest pain, rule out acute coronary syndrome. Continue aspirin and Imdur. Dr. William is following in cardiology consultation. Pending cardiac cath on Thursday. - Systolic dysfunction congestive heart failure with ejection fraction of 35%. - Cardiomyopathy. - Coronary artery disease, status post coronary artery bypass graft in 2010 and status post stent to LAD in 2016. - ICD interrogated today to assess for events - Chronic obstructive pulmonary disease. - Obstructive sleep apnea requiring BiPAP at night. - Syncope. CT of the head negative for acute stroke. - cellulitis give ancef Problems: Subjective 24 Hr Interval Summary Free Text/Dictation Patient complain of hemoptysis Exam/Review of Systems Vital Signs Vitals Vital Signs Date Time Temp Pulse Resp B/P Pulse Ox O2 Delivery O2 Flow Rate FiO2 02/01/17 08:10 Nasal Cannula 3.0 02/01/17 08:04 78 02/01/17 07:26 98.3 18 144/65 94 01/30/17 17:01 21 Intake and Output 01/31/17 01/31/17 02/01/17 15:00 23:00 07:00 Intake Total 50 ml 2050 ml 270 ml Balance 50 ml 2050 ml 270 ml Exam Constitutional: well developed Head: atraumatic, normocephalic Neck: supple Respiratory: diminished breath sounds Cardiovascular: regular rate and rhythm Gastrointestinal: non-tender, soft Extremities: edema, normal pulses Results Result Diagram: 01/31/1760401/31/17 06 Results 24 hrs Laboratory Tests Test 01/31/17 11:46 01/31/17 17:29 01/31/17 20:11 02/01/17 02:30 Bedside Glucose 184 175 208 177 Test 02/01/17 07:55 Bedside Glucose 194 Medications Medications Current Medications Ondansetron HCl (Zofran Inj) 4 mg Q6H PRN IV NAUSEA AND/OR VOMITING Last administered on 01/17/17t 20:45; Admin Dose 4 MG; Start 01/13/17 at 18:30 Nitroglycerin (Nitroglycerin (Sl Tab) 0.4 Mg) 1 tab Q5M PRN SL CHEST PAIN; Start 01/13/17 at 18:30 Acetaminophen (Tylenol Tab) 650 mg Q6H PRN PO PAIN LEVEL 1-3 OR FEVER Last administered on 02/01/17 08:29; Admin Dose 650 MG; Start 01/13/17 at 18:30 Morphine Sulfate (morphine) 2 mg Q4H PRN IV PAIN LEVEL 7-10 Last administered on 02/01/17 06:29; Admin Dose 2 MG; Start 01/13/17 at 18:30 Famotidine (Pepcid) 10 mg HS PO Last administered on 01/31/17 20:03; Admin Dose 10 MG; Start 01/13/17 at 21:00 Amlodipine Besylate (Norvasc) 10 mg DAILY PO Last administered on 02/01/17 08 :30; Admin Dose 10 MG; Start 01/14/17 at 09:00 Atorvastatin Calcium (Lipitor) 40 mg QHS PO Last administered on 01/31/17 20: 02; Admin Dose 40 MG; Start 01/13/17 at 21:00 Clonidine (Catapres) 0.2 mg TID PRN PO FOR SBP >160 Last administered on 16:43; Admin Dose 0.2 MG; Start 01/13/17 at 19:00 Clopidogrel Bisulfate (plaVIX) 75 mg DAILY PO Last administered on 02/01/17 08:29; Admin Dose 75 MG; Start 01/14/17 at 09:00 Folic Acid (Folic Acid) 1 mg DAILY PO Last administered on 02/01/17 08:29; Admin Dose 1 MG; Start 01/14/17 at 09:00 Gabapentin (Neurontin) 300 mg BID PO Last administered on 02/01/17 08:29; Admin Dose 300 MG; Start 01/13/17 at 21:00 Linagliptin (Tradjenta) 5 mg DAILY PO Last administered on 02/01/17 08:29; Admin Dose 5 MG; Start 01/14/17 at 09:00 Multivit/Ca Carb/ B Cmplx/FA/Prenat (Addie-Mikayla) 1 tab DAILY PO Last administered on 02/01/17 08:29; Admin Dose 1 TAB; Start 01/14/17 at 09:00 Polyethylene Glycol (Miralax) 17 gm BID PO Last administered on 02/01/17 08: 28; Admin Dose 17 GM; Start 01/13/17 at 21:00 Miscellaneous Information 1 ea NOTE XX ; Start 01/13/17 at 19:00 Glucose (Glutose) 15 gm Q15M PRN PO DECREASED GLUCOSE; Start 01/13/17 at 19:00 Glucose (Glutose) 22.5 gm Q15M PRN PO DECREASED GLUCOSE; Start 01/13/17 at 19: 00 Dextrose (D50w Syringe) 25 ml Q15M PRN IV DECREASED GLUCOSE; Start 01/13/17 at 19:00 Dextrose (D50w Syringe) 50 ml Q15M PRN IV DECREASED GLUCOSE; Start 01/13/17 at 19:00 Glucagon (Glucagen) 1 mg Q15M PRN IM DECREASED GLUCOSE; Start 01/13/17 at 19: 00 Glucose (Glutose) 15 gm Q15M PRN BUCCAL DECREASED GLUCOSE; Start 01/13/17 at 19:00 Morphine Sulfate (morphine) 2 mg Q4H PRN IV PAIN Last administered on 02:13; Admin Dose 2 MG; Start 01/14/17 at 01:00 Promethazine HCl/ Codeine (Phenergan/ Codeine) 5 ml Q4H PRN PO COUGH Last administered on 02/01/17 06:30; Admin Dose 5 ML; Start 01/14/17 at 12:30 Hydrocodone Bit/ Homatropine Methylb (Hycodan Liquid) 5 ml Q6 PRN PO COUGH Last administered on 01/30/17 20:53; Admin Dose 5 ML; Start 01/14/17 at 13:30 Diagnostic Test (Pha) (Accu-Chek) 1 ea 02 XX Last administered on 02/01/17 02 :34; Admin Dose 1 EA; Start 01/15/17 at 02:00 Carvedilol (Coreg) 6.25 mg BID PO Last administered on 02/01/17 08:30; Admin Dose 6.25 MG; Start 01/21/17 at 21:00 Apixaban (Eliquis) 2.5 mg BID PO Last administered on 02/01/17 08:29; Admin Dose 2.5 MG; Start 01/28/17 at 21:00 Acetaminophen/ Hydrocodone Bitart ([place] (7.5-325)) 1 tab Q6H PRN PO pain Last administered on 01/31/17 10:41; Admin Dose 1 TAB; Start 01/28/17 at 18:30 Docusate Sodium (Colace) 100 mg BID PRN PO CONSTIPATION Last administered on 16:12; Admin Dose 100 MG; Start 01/29/17 at 16:00 Lorazepam 0.5 mg 0.5 mg Q3 PRN IV ANXIETY Last administered on 02/01/17 06:29 ; Admin Dose 0.5 MG; Start 01/30/17 at 18:00 Cefazolin Sodium (Ancef 1 Gm/50 ml (Pmx)) 50 ml @ 100 mls/hr Q8 IVPB Last administered on 02/01/17 06:28; Admin Dose 100 MLS/HR; Start 01/31/17 at 11: 00 CARYL PANTOJA Feb 01, 2017 10:54
--- NOTE | 2017-02-01 11:46 | CONS ---
Date/Time of Note Date/Time of Note DATE: 02/01/17 TIME: 11:42 Assessment/Plan Assessment/Plan Chief Complaint/Hosp Course 56 y/o with 1. Fluid overload, uncontrolled hypertension.BETTER 2. End-stage renal disease. 3. Hypertension. 4. Diabetes mellitus. 5. Hyperkalemia. 6. Atherosclerotic heart disease. 7. Peripheral vascular disease. 8. History of dyslipidemia. 9 History of pneumonia. 10. History of leg cellulitis. 11. History of wound dehiscence. 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 14 SOB likely secondary to Pul edema vs Pneumonia with CHF due to diastolic dysfunction Plan - HD today for Hyperkalemia and uremia - Strict Fluid restriction to 1.5 L - Assess daily for HD needs - Ativan - c/w Coreg/amlodipine - GI and Dvt prophylaxsis - Labs am Problems: Consultation Date/Type/Reason Admit Date/Time Jan 13, 2017 at 18:04 Type of Consultation: Renal Referring Provider: KIRSTIN SPANN MD 24 HR Interval Summary Free Text/Dictation Anxious Exam/Review of Systems Vital Signs Vitals Vital Signs Date Time Temp Pulse Resp B/P Pulse Ox O2 Delivery O2 Flow Rate FiO2 02/01/17 11:32 97.1 67 17 148/68 100 02/01/17 08:10 Nasal Cannula 3.0 01/30/17 17:01 21 Intake and Output 01/31/17 01/31/17 02/01/17 14:59 22:59 06:59 Intake Total 50 ml 2050 ml 270 ml Balance 50 ml 2050 ml 270 ml Exam Gen: Awake and alert Respiratory: +rhonchi Cardiovascular: regular rate and rhythm Gastrointestinal: bowel sounds (+), soft Extremities: edema (++) Left ue fistula +Bruising noted Results Result Diagram: 01/31/17 0601/31/17 06 Results 24 hrs Laboratory Tests Test 01/31/17 11:46 01/31/17 17:29 01/31/17 20:11 02/01/17 02:30 Bedside Glucose 184 175 208 177 Test 02/01/17 07:55 02/01/17 11:37 Bedside Glucose 194 129 Medications Medications Current Medications Ondansetron HCl (Zofran Inj) 4 mg Q6H PRN IV NAUSEA AND/OR VOMITING Last administered on 01/17/17 20:45; Admin Dose 4 MG; Start 01/13/17 at 18:30 Nitroglycerin (Nitroglycerin (Sl Tab) 0.4 Mg) 1 tab Q5M PRN SL CHEST PAIN; Start 01/13/17 at 18:30 Acetaminophen (Tylenol Tab) 650 mg Q6H PRN PO PAIN LEVEL 1-3 OR FEVER Last administered on 02/01/17 08:29; Admin Dose 650 MG; Start 01/13/17 at 18:30 Morphine Sulfate (morphine) 2 mg Q4H PRN IV PAIN LEVEL 7-10 Last administered on 02/01/17 06:29; Admin Dose 2 MG; Start 01/13/17 at 18:30 Famotidine (Pepcid) 10 mg HS PO Last administered on 01/31/17 20:03; Admin Dose 10 MG; Start 01/13/17 at 21:00 Amlodipine Besylate (Norvasc) 10 mg DAILY PO Last administered on 02/01/17 08 :30; Admin Dose 10 MG; Start 01/14/17 at 09:00 Atorvastatin Calcium (Lipitor) 40 mg QHS PO Last administered on 01/31/17 20: 02; Admin Dose 40 MG; Start 01/13/17 at 21:00 Clonidine (Catapres) 0.2 mg TID PRN PO FOR SBP >160 Last administered on 16:43; Admin Dose 0.2 MG; Start 01/13/17 at 19:00 Clopidogrel Bisulfate (plaVIX) 75 mg DAILY PO Last administered on 02/01/17 08:29; Admin Dose 75 MG; Start 01/14/17 at 09:00 Folic Acid (Folic Acid) 1 mg DAILY PO Last administered on 02/01/17 08:29; Admin Dose 1 MG; Start 01/14/17 at 09:00 Gabapentin (Neurontin) 300 mg BID PO Last administered on 02/01/17 08:29; Admin Dose 300 MG; Start 01/13/17 at 21:00 Linagliptin (Tradjenta) 5 mg DAILY PO Last administered on 02/01/17 08:29; Admin Dose 5 MG; Start 01/14/17 at 09:00 Multivit/Ca Carb/ B Cmplx/FA/Prenat (Addie-Mikayla) 1 tab DAILY PO Last administered on 02/01/17 08:29; Admin Dose 1 TAB; Start 01/14/17 at 09:00 Polyethylene Glycol (Miralax) 17 gm BID PO Last administered on 02/01/17 08: 28; Admin Dose 17 GM; Start 01/13/17 at 21:00 Miscellaneous Information 1 ea NOTE XX ; Start 01/13/17 at 19:00 Glucose (Glutose) 15 gm Q15M PRN PO DECREASED GLUCOSE; Start 01/13/17 at 19:00 Glucose (Glutose) 22.5 gm Q15M PRN PO DECREASED GLUCOSE; Start 01/13/17 at 19: 00 Dextrose (D50w Syringe) 25 ml Q15M PRN IV DECREASED GLUCOSE; Start 01/13/17 at 19:00 Dextrose (D50w Syringe) 50 ml Q15M PRN IV DECREASED GLUCOSE; Start 01/13/17 at 19:00 Glucagon (Glucagen) 1 mg Q15M PRN IM DECREASED GLUCOSE; Start 01/13/17 at 19: 00 Glucose (Glutose) 15 gm Q15M PRN BUCCAL DECREASED GLUCOSE; Start 01/13/17 at 19:00 Morphine Sulfate (morphine) 2 mg Q4H PRN IV PAIN Last administered on 02:13; Admin Dose 2 MG; Start 01/14/17 at 01:00 Promethazine HCl/ Codeine (Phenergan/ Codeine) 5 ml Q4H PRN PO COUGH Last administered on 02/01/17 06:30; Admin Dose 5 ML; Start 01/14/17 at 12:30 Hydrocodone Bit/ Homatropine Methylb (Hycodan Liquid) 5 ml Q6 PRN PO COUGH Last administered on 01/30/17 20:53; Admin Dose 5 ML; Start 01/14/17 at 13:30 Diagnostic Test (Pha) (Accu-Chek) 1 ea 02 XX Last administered on 02/01/17 02 :34; Admin Dose 1 EA; Start 01/15/17 at 02:00 Carvedilol (Coreg) 6.25 mg BID PO Last administered on 02/01/17 08:30; Admin Dose 6.25 MG; Start 01/21/17 at 21:00 Apixaban (Eliquis) 2.5 mg BID PO Last administered on 02/01/17 08:29; Admin Dose 2.5 MG; Start 01/28/17 at 21:00 Acetaminophen/ Hydrocodone Bitart ([place] (7.5-325)) 1 tab Q6H PRN PO pain Last administered on 01/31/17 10:41; Admin Dose 1 TAB; Start 01/28/17 at 18:30 Docusate Sodium (Colace) 100 mg BID PRN PO CONSTIPATION Last administered on 16:12; Admin Dose 100 MG; Start 01/29/17 at 16:00 Lorazepam 0.5 mg 0.5 mg Q3 PRN IV ANXIETY Last administered on 02/01/17 06:29 ; Admin Dose 0.5 MG; Start 01/30/17 at 18:00 Cefazolin Sodium (Ancef 1 Gm/50 ml (Pmx)) 50 ml @ 100 mls/hr Q8 IVPB Last administered on 02/01/17 06:28; Admin Dose 100 MLS/HR; Start 01/31/17 at 11: 00 DARELL JAMES MD Feb 01, 2017 11:46
[2017-02-01 12:47] LABS: CALCIUM 7.5 mg/dl (8.4-10.2); CREATININE 7.87 mg/dl (0.44-1.00)
--- NOTE | 2017-02-01 13:59 | CONS ---
Date/Time of Note Date/Time of Note DATE: 02/01/17 TIME: 13:57 Assessment/Plan Assessment/Plan Additional Assessment/Plan 1. Atrial fibrillation 2. Hypertension 3. Congestive heart failure (CHF) 4. End-stage renal disease on hemodialysis. 5. Diabetes mellitus. 6. Peripheral arterial disease, status post lower extremity bypass. 7. Dyslipidemia. 8. Anemia Avoid Volume Overload HD as scheduled Continue Coreg and Norvasc Continue Eliquis and Plavix Continue Insulin Continue Lipitor Continue Antibiotics Consultation Date/Type/Reason Admit Date/Time Jan 13, 2017 at 18:04 Initial Consult Date 01/20/17 Type of Consultation: Renal Referring Provider: KIRSTIN SPANN MD Exam/Review of Systems Vital Signs Vitals Vital Signs Date Time Temp Pulse Resp B/P Pulse Ox O2 Delivery O2 Flow Rate FiO2 02/01/17 12:30 63 02/01/17 12:00 16 02/01/17 11:32 97.1 148/68 100 02/01/17 08:10 Nasal Cannula 3.0 01/30/17 17:01 21 Intake and Output 01/31/17 01/31/17 02/01/17 15:00 23:00 07:00 Intake Total 50 ml 2050 ml 270 ml Balance 50 ml 2050 ml 270 ml Exam Constitutional: alert Psych: no complaints Head: atraumatic, normocephalic Neck: non-tender, supple Respiratory: clear to auscultation Cardiovascular: irregular rhythm, other (no m/r/g) Results Result Diagram: 01/31/17 0605 02/01/17 1213 Results 24 hrs Laboratory Tests Test 01/31/17 17:29 01/31/17 20:11 02/01/17 02:30 02/01/17 07:55 Bedside Glucose 175 208 177 194 Test 02/01/17 11:37 02/01/17 12:13 Bedside Glucose 129 Sodium Level 137 Potassium Level 7.0 *H Chloride Level 100 Carbon Dioxide Level 20 L Anion Gap 24 #H Blood Urea Nitrogen 108 H Creatinine 7.87 H Glucose Level 140 Calcium Level 7.5 L Medications Medications Current Medications Ondansetron HCl (Zofran Inj) 4 mg Q6H PRN IV NAUSEA AND/OR VOMITING Last administered on 01/17/17t 20:45; Admin Dose 4 MG; Start 01/13/17 at 18:30 Nitroglycerin (Nitroglycerin (Sl Tab) 0.4 Mg) 1 tab Q5M PRN SL CHEST PAIN; Start 01/13/17 at 18:30 Acetaminophen (Tylenol Tab) 650 mg Q6H PRN PO PAIN LEVEL 1-3 OR FEVER Last administered on 02/01/17 08:29; Admin Dose 650 MG; Start 01/13/17 at 18:30 Morphine Sulfate (morphine) 2 mg Q4H PRN IV PAIN LEVEL 7-10 Last administered on 02/01/17 11:45; Admin Dose 2 MG; Start 01/13/17 at 18:30 Famotidine (Pepcid) 10 mg HS PO Last administered on 01/31/17 20:03; Admin Dose 10 MG; Start 01/13/17 at 21:00 Amlodipine Besylate (Norvasc) 10 mg DAILY PO Last administered on 02/01/17 08 :30; Admin Dose 10 MG; Start 01/14/17 at 09:00 Atorvastatin Calcium (Lipitor) 40 mg QHS PO Last administered on 01/31/17 20: 02; Admin Dose 40 MG; Start 01/13/17 at 21:00 Clonidine (Catapres) 0.2 mg TID PRN PO FOR SBP >160 Last administered on 16:43; Admin Dose 0.2 MG; Start 01/13/17 at 19:00 Clopidogrel Bisulfate (plaVIX) 75 mg DAILY PO Last administered on 02/01/17 08:29; Admin Dose 75 MG; Start 01/14/17 at 09:00 Folic Acid (Folic Acid) 1 mg DAILY PO Last administered on 02/01/17 08:29; Admin Dose 1 MG; Start 01/14/17 at 09:00 Gabapentin (Neurontin) 300 mg BID PO Last administered on 02/01/17 08:29; Admin Dose 300 MG; Start 01/13/17 at 21:00 Linagliptin (Tradjenta) 5 mg DAILY PO Last administered on 02/01/17 08:29; Admin Dose 5 MG; Start 01/14/17 at 09:00 Multivit/Ca Carb/ B Cmplx/FA/Prenat (Addie-Mikayla) 1 tab DAILY PO Last administered on 02/01/17 08:29; Admin Dose 1 TAB; Start 01/14/17 at 09:00 Polyethylene Glycol (Miralax) 17 gm BID PO Last administered on 02/01/17 08: 28; Admin Dose 17 GM; Start 01/13/17 at 21:00 Miscellaneous Information 1 ea NOTE XX ; Start 01/13/17 at 19:00 Glucose (Glutose) 15 gm Q15M PRN PO DECREASED GLUCOSE; Start 01/13/17 at 19:00 Glucose (Glutose) 22.5 gm Q15M PRN PO DECREASED GLUCOSE; Start 01/13/17 at 19: 00 Dextrose (D50w Syringe) 25 ml Q15M PRN IV DECREASED GLUCOSE; Start 01/13/17 at 19:00 Dextrose (D50w Syringe) 50 ml Q15M PRN IV DECREASED GLUCOSE; Start 01/13/17 at 19:00 Glucagon (Glucagen) 1 mg Q15M PRN IM DECREASED GLUCOSE; Start 01/13/17 at 19: 00 Glucose (Glutose) 15 gm Q15M PRN BUCCAL DECREASED GLUCOSE; Start 01/13/17 at 19:00 Morphine Sulfate (morphine) 2 mg Q4H PRN IV PAIN Last administered on 02:13; Admin Dose 2 MG; Start 01/14/17 at 01:00 Promethazine HCl/ Codeine (Phenergan/ Codeine) 5 ml Q4H PRN PO COUGH Last administered on 02/01/17 06:30; Admin Dose 5 ML; Start 01/14/17 at 12:30 Hydrocodone Bit/ Homatropine Methylb (Hycodan Liquid) 5 ml Q6 PRN PO COUGH Last administered on 01/30/17 20:53; Admin Dose 5 ML; Start 01/14/17 at 13:30 Diagnostic Test (Pha) (Accu-Chek) 1 ea 02 XX Last administered on 02/01/17 02 :34; Admin Dose 1 EA; Start 01/15/17 at 02:00 Carvedilol (Coreg) 6.25 mg BID PO Last administered on 02/01/17 08:30; Admin Dose 6.25 MG; Start 01/21/17 at 21:00 Apixaban (Eliquis) 2.5 mg BID PO Last administered on 02/01/17 08:29; Admin Dose 2.5 MG; Start 01/28/17 at 21:00 Acetaminophen/ Hydrocodone Bitart ([place] (7.5-325)) 1 tab Q6H PRN PO pain Last administered on 01/31/17 10:41; Admin Dose 1 TAB; Start 01/28/17 at 18:30 Docusate Sodium (Colace) 100 mg BID PRN PO CONSTIPATION Last administered on 16:12; Admin Dose 100 MG; Start 01/29/17 at 16:00 Lorazepam 0.5 mg 0.5 mg Q3 PRN IV ANXIETY Last administered on 02/01/17 06:29 ; Admin Dose 0.5 MG; Start 01/30/17 at 18:00 Cefazolin Sodium (Ancef 1 Gm/50 ml (Pmx)) 50 ml @ 100 mls/hr Q8 IVPB Last administered on 02/01/17 06:28; Admin Dose 100 MLS/HR; Start 01/31/17 at 11: 00 TIGIST HURST M.D. Feb 01, 2017 13:59
[2017-02-01] MEDS: HYDROCODONE/APAP (7.5/325) TAB PO PRN (15:07)
[2017-02-01] MEDS: ATORVASTATIN 40 MG TAB PO SCH (20:26)
[2017-02-01] MEDS: FAMOTIDINE 20 MG TAB PO SCH (20:27)
[2017-02-01] MEDS ORDERED: ZOLPIDEM 5 MG TAB PO PRN (21:00)
[2017-02-02] VITALS (19 sets, daily range): BP systolic 117–165; BP diastolic 51–82; PULSE 61–79; RESP 17–18
--- NOTE | 2017-02-02 00:54 | RADRPT ---
PROCEDURE: Portable chest x-ray. CLINICAL INDICATION: 56-year of age, female. Congestive heart failure. TECHNIQUE: Portable AP view of the chest. COMPARISON: January 26, 2017 FINDINGS: Mild atherosclerosis thoracic aorta. Borderline heart size. Pulmonary vessels are prominent in keeping with pulmonary venous congestion without interstitial rhys ma. Mild left lung base opacity may represent atelectasis although aspiration or pneumonia could taisha ear similar. Negative for pleural effusion or pneumothorax. There is orthopedic hardware in the proximal right humerus that is incompletely imaged. No acute bon y abnormality. IMPRESSION: 1. Borderline heart size. Pulmonary venous congestion without interstitial pulmonary edema. 2. Mild left lung base opacity may represent atelectasis although aspiration or pneumonia could appe ar similar. RPTAT: HCTS Physician Priti Date Time Electronically viewed and signed by Danny Mazariegos Physician on 02/02/2017 00:54 /
[2017-02-02] MEDS: morphine 2 MG INJ IV PRN ×5 (01:47→22:42)
[2017-02-02] MEDS: PROMETHAZINE/CODEINE 5ML CUP PO PRN ×3 (01:47→23:10)
[2017-02-02] MEDS: LEVALBUTEROL (NEB) 0.63 MG/3 ML AMP HHN SCH ×4 (02:00→19:59)
[2017-02-02] MEDS: ACCU-CHEK XX SCH (02:18)
[2017-02-02] MEDS: CEFAZOLIN 1 GM/50 ML (PMX) 50 ML IVPB SCH ×3 (06:14→23:09)
[2017-02-02] MEDS: LORAZEPAM 2 MG INJ IV PRN ×4 (06:18→20:54)
[2017-02-02] MEDS: HYDROCODONE/APAP (7.5/325) TAB PO PRN ×3 (06:18→17:57)
[2017-02-02 06:26] LABS: BASOPHILS % 0.3 % (0.0-2.0); EOSINOPHILS # 0.3 10^3/ul (0.0-0.5); EOSINOPHILS % 8.6 % (0.0-7.0); HEMATOCRIT 23.6 % (37.0-47.0); HEMOGLOBIN 7.2 g/dl (12.0-16.0); LYMPHOCYTES # 1.2 10^3/ul (0.8-2.9); MEAN CORPUSCULAR HEMOGLOBIN 34.1 pg (29.0-33.0); MEAN CORPUSCULAR HGB CONC 30.5 g/dl (32.0-37.0); MEAN CORPUSCULAR VOLUME 111.8 fl (82.0-101.0); MEAN PLATELET VOLUME 11.4 fl (7.4-10.4); MONOCYTE # 0.6 10^3/ul (0.3-0.9); MONOCYTES % 14.1 % (0.0-11.0); NEUTROPHIL # 1.8 10^3/ul (1.6-7.5); NEUTROPHILS % 45.7 % (39.0-77.0); PLATELET COUNT 167 10^3/UL (140-415); RED BLOOD COUNT 2.11 10^6/ul (4.20-5.40); RED CELL DISTRIBUTION WIDTH 14.6 % (11.5-14.5)
[2017-02-02 06:45] LABS: CALCIUM 7.7 mg/dl (8.4-10.2); CREATININE 5.45 mg/dl (0.44-1.00); POTASSIUM 5.9 mmol/L (3.5-5.1)
[2017-02-02] MEDS: INSULIN ASPART [NOVOLOG] 3 ML PEN SC SCH ×7 (07:55→21:06)
[2017-02-02] MEDS: LINAGLIPTIN 5 MG TABLET PO SCH (10:08)
[2017-02-02] MEDS: MULTIVIT/CA CARB/B CMPLX/FA TAB PO SCH (10:08)
[2017-02-02] MEDS: SEVELAMER CARBONATE 0.8 GM PKT PO SCH ×3 (10:08→17:55)
[2017-02-02] MEDS: APIXABAN 5 MG TABLET PO SCH ×2 (10:08→20:51)
[2017-02-02] MEDS: POLYETHYLENE GLYCOL 17 GM PACKET PO SCH ×2 (10:08→20:51)
[2017-02-02] MEDS: PANTOPRAZOLE (EC) 40 MG TAB PO SCH (10:08)
[2017-02-02] MEDS: CLOPIDOGREL 75 MG TAB PO SCH (10:08)
[2017-02-02] MEDS: FOLIC ACID 1 MG TAB PO SCH (10:09)
[2017-02-02] MEDS: GABAPENTIN 300 MG CAP PO SCH ×2 (10:09→20:51)
[2017-02-02] MEDS: AMLODIPINE 10 MG TAB PO SCH (10:09)
--- NOTE | 2017-02-02 11:40 | CONS ---
Date/Time of Note Date/Time of Note DATE: 02/02/17 TIME: 11:37 Assessment/Plan Assessment/Plan Chief Complaint/Hosp Course IMPRESSION 1. Atrial fibrillation, not on systemic anticoagulation, but on aspirin and Plavix, status post PTCA to arteriovenous (AV) fistula, with the patient having elevated CHADS-VASc score and therefore placing her at an increased risk for thromboembolic complications of atrial fibrillation and thus benefit from systemic anticoagulation if possible, and therefore, I have changed patient to eliquis and plavix and d/c'd asa 2. Hypertension, under reasonable control. 3. Respiratory distress, improved. 4. Congestive heart failure (CHF), question diastolic versus systolic and improve volume status. 5. End-stage renal disease on hemodialysis. 6. Diabetes mellitus. 7. Peripheral arterial disease, status post lower extremity bypass. 8. Dyslipidemia. 9. Anemia, severe. Recc: -Tele -serial ecg's -Continue plavix/statin and eliquis -continue norvasc/coreg -Continue aggresive HD for volume removal -Fluid restriction Problems: Consultation Date/Type/Reason Admit Date/Time Jan 13, 2017 at 18:04 Initial Consult Date 01/21/17 Type of Consultation: cardiology Reason for Consultation AF Referring Provider: KIRSTIN SPANN MD Exam/Review of Systems Vital Signs Vitals Vital Signs Date Time Temp Pulse Resp B/P Pulse Ox O2 Delivery O2 Flow Rate FiO2 02/02/17 11:34 97.6 73 18 143/65 96 02/02/17 02:10 4.0 02/02/17 00:00 Nasal Cannula 01/30/17 17:01 21 Intake and Output 02/01/17 02/01/17 02/02/17 15:00 23:00 07:00 Intake Total 300 ml 2050 ml 400 ml Output Total 3800 ml Balance -3500 ml 2050 ml 400 ml Exam Review of Systems: CONSTITUTIONAL: No fevers, chills. PULMONARY: No sob CARDIOVASCULAR: No chest pain/palpitations GASTROINTESTINAL: No nausea/vomiting. GENITOURINARY: No hematuria/dysuria. MUSCULOSKELETAL: No myagias/arthalgias. PSYCHIATRIC: The patient denies depression. NEUROLOGIC: No weakness Constitutional: alert, oriented Head: normocephalic ENMT: mucosa pink and moist Neck: jvd (9 cm water), supple Respiratory: diminished breath sounds Cardiovascular: regular rate and rhythm Gastrointestinal: non-tender, soft Musculoskeletal: muscle tone (normal) Extremities: pitting pedal edema (bilalateral) Neurological: other (No focal deficits) Results Result Diagram: 02/02/17 0542 02/02/17 0542 Results 24 hrs Laboratory Tests Test 02/01/17 12:13 02/01/17 17:17 02/01/17 18:17 02/01/17 23:00 Sodium Level 137 Potassium Level 7.0 *H 5.1 Chloride Level 100 Carbon Dioxide Level 20 L Anion Gap 24 #H Blood Urea Nitrogen 108 H Creatinine 7.87 H Glucose Level 140 Calcium Level 7.5 L Bedside Glucose 218 224 H Test 02/02/17 02:16 02/02/17 05:42 Bedside Glucose 156 White Blood Count 4.0 L Red Blood Count 2.11 L Hemoglobin 7.2 L Hematocrit 23.6 L Mean Corpuscular Volume 111.8 H Mean Corpuscular Hemoglobin 34.1 H Mean Corpuscular Hemoglobin Concent 30.5 L Red Cell Distribution Width 14.6 H Platelet Count 167 Mean Platelet Volume 11.4 H Neutrophils % 45.7 Lymphocytes % 31.0 Monocytes % 14.1 H Eosinophils % 8.6 H Basophils % 0.3 Nucleated Red Blood Cells % 0.0 Neutrophils # 1.8 Lymphocytes # 1.2 Monocytes # 0.6 Eosinophils # 0.3 Basophils # 0.0 Nucleated Red Blood Cells # 0.0 Sodium Level 142 Potassium Level 5.9 H Chloride Level 108 Carbon Dioxide Level 21 Anion Gap 19 H Blood Urea Nitrogen 72 #H Creatinine 5.45 #H Glucose Level 160 Calcium Level 7.7 L Medications Medications Current Medications Ondansetron HCl (Zofran Inj) 4 mg Q6H PRN IV NAUSEA AND/OR VOMITING Last administered on 01/17/17 20:45; Admin Dose 4 MG; Start 01/13/17 at 18:30 Nitroglycerin (Nitroglycerin (Sl Tab) 0.4 Mg) 1 tab Q5M PRN SL CHEST PAIN; Start 01/13/17 at 18:30 Acetaminophen (Tylenol Tab) 650 mg Q6H PRN PO PAIN LEVEL 1-3 OR FEVER Last administered on 02/01/17 20:40; Admin Dose 650 MG; Start 01/13/17 at 18:30 Morphine Sulfate (morphine) 2 mg Q4H PRN IV PAIN LEVEL 7-10 Last administered on 02/02/17 10:10; Admin Dose 2 MG; Start 01/13/17 at 18:30 Famotidine (Pepcid) 10 mg HS PO Last administered on 02/01/17 20:27; Admin Dose 10 MG; Start 01/13/17 at 21:00 Amlodipine Besylate (Norvasc) 10 mg DAILY PO Last administered on 02/02/17 10 :09; Admin Dose 10 MG; Start 01/14/17 at 09:00 Atorvastatin Calcium (Lipitor) 40 mg QHS PO Last administered on 02/01/17 20: 26; Admin Dose 40 MG; Start 01/13/17 at 21:00 Clonidine (Catapres) 0.2 mg TID PRN PO FOR SBP >160 Last administered on 16:43; Admin Dose 0.2 MG; Start 01/13/17 at 19:00 Clopidogrel Bisulfate (plaVIX) 75 mg DAILY PO Last administered on 02/02/17 10:08; Admin Dose 75 MG; Start 01/14/17 at 09:00 Folic Acid (Folic Acid) 1 mg DAILY PO Last administered on 02/02/17 10:09; Admin Dose 1 MG; Start 01/14/17 at 09:00 Gabapentin (Neurontin) 300 mg BID PO Last administered on 02/02/17 10:09; Admin Dose 300 MG; Start 01/13/17 at 21:00 Linagliptin (Tradjenta) 5 mg DAILY PO Last administered on 02/02/17 10:08; Admin Dose 5 MG; Start 01/14/17 at 09:00 Multivit/Ca Carb/ B Cmplx/FA/Prenat (Addie-Mikayla) 1 tab DAILY PO Last administered on 02/02/17 10:08; Admin Dose 1 TAB; Start 01/14/17 at 09:00 Polyethylene Glycol (Miralax) 17 gm BID PO Last administered on 02/02/17 10: 08; Admin Dose 17 GM; Start 01/13/17 at 21:00 Miscellaneous Information 1 ea NOTE XX ; Start 01/13/17 at 19:00 Glucose (Glutose) 15 gm Q15M PRN PO DECREASED GLUCOSE; Start 01/13/17 at 19:00 Glucose (Glutose) 22.5 gm Q15M PRN PO DECREASED GLUCOSE; Start 01/13/17 at 19: 00 Dextrose (D50w Syringe) 25 ml Q15M PRN IV DECREASED GLUCOSE; Start 01/13/17 at 19:00 Dextrose (D50w Syringe) 50 ml Q15M PRN IV DECREASED GLUCOSE; Start 01/13/17 at 19:00 Glucagon (Glucagen) 1 mg Q15M PRN IM DECREASED GLUCOSE; Start 01/13/17 at 19: 00 Glucose (Glutose) 15 gm Q15M PRN BUCCAL DECREASED GLUCOSE; Start 01/13/17 at 19:00 Morphine Sulfate (morphine) 2 mg Q4H PRN IV PAIN Last administered on 02:13; Admin Dose 2 MG; Start 01/14/17 at 01:00 Promethazine HCl/ Codeine (Phenergan/ Codeine) 5 ml Q4H PRN PO COUGH Last administered on 02/02/17 06:17; Admin Dose 5 ML; Start 01/14/17 at 12:30 Hydrocodone Bit/ Homatropine Methylb (Hycodan Liquid) 5 ml Q6 PRN PO COUGH Last administered on 01/30/17 20:53; Admin Dose 5 ML; Start 01/14/17 at 13:30 Diagnostic Test (Pha) (Accu-Chek) 1 ea 02 XX Last administered on 02/02/17 02 :18; Admin Dose 1 EA; Start 01/15/17 at 02:00 Carvedilol (Coreg) 6.25 mg BID PO Last administered on 02/02/17 10:10; Admin Dose 6.25 MG; Start 01/21/17 at 21:00 Apixaban (Eliquis) 2.5 mg BID PO Last administered on 02/02/17 10:08; Admin Dose 2.5 MG; Start 01/28/17 at 21:00 Acetaminophen/ Hydrocodone Bitart ([place] (7.5-325)) 1 tab Q6H PRN PO pain Last administered on 02/02/17 07:26; Admin Dose 1 TAB; Start 01/28/17 at 18:30 Docusate Sodium (Colace) 100 mg BID PRN PO CONSTIPATION Last administered on 16:12; Admin Dose 100 MG; Start 01/29/17 at 16:00 Lorazepam 0.5 mg 0.5 mg Q3 PRN IV ANXIETY Last administered on 02/02/17 11:15 ; Admin Dose 0.5 MG; Start 01/30/17 at 18:00 Cefazolin Sodium (Ancef 1 Gm/50 ml (Pmx)) 50 ml @ 100 mls/hr Q8 IVPB Last administered on 02/02/17 06:14; Admin Dose 100 MLS/HR; Start 01/31/17 at 11: 00 Zolpidem Tartrate (Ambien) 5 mg HS PRN PO INSOMNIA; Start 02/01/17 at 21:00 GERTRUDIS GUILLERMO Feb 02, 2017 11:40
[2017-02-02] MEDS ORDERED: SOD CHLORIDE 0.9% 250 ML IV* ONE (12:43)
--- NOTE | 2017-02-02 12:47 | PN ---
Date/Time of Note Date/Time of Note DATE: 02/02/17 TIME: 12:42 Assessment/Plan VTE Prophylaxis VTE Prophylaxis Intervention: SCD's Lines/Catheters IV Catheter Type (from [facility]): [place] [employer] [facility] line still needed: Yes Urinary Cath still in place: No Assessment/Plan Chief Complaint/Hosp Course Patient with hyperkalemia today currently undergoing hemodialysis, hemoglobin is 7.4 we will transfuse 1 unit of packed red blood cells. Assessment/Plan -Atrial fibrillation, currently in sinus rhythm, continue Eliquiz. Dr. William is following in cardiology consultation. -Acute respiratory failure secondary to pulmonary edema, resolving. Dr Cole is following in pulmonology consultation. -Hemodialysis dependent end-stage renal disease, Dr. Garcia is following in nephrology consultation, continue hemodialysis. Fluid restriction. -Status post fistulogram, status post left upper extremity anastomosis angioplasty by Dr. Ruano on 01/19. Status post left upper extremity fistulogram and coil embolization on 01/23. -Anemia, transfuse as needed, continue to monitor hemoglobin and hematocrit. -E. coli UTI, s/p treatment. -Diabetes mellitus type 2, hemoglobin A1c 6.5, continue Tradjenta Lantus and NovoLog -HTN -Severe PVD, with multiple vascular intervention including a left lower extremity bypass. -S/p orthopedic procedures to RUE with metal prosthetic after bone Fx -Poor medical compliance Further recommendations based on clinical course. Plan of care is discussed with Dr. Cordero Problems: Exam/Review of Systems Vital Signs Vitals Vital Signs Date Time Temp Pulse Resp B/P Pulse Ox O2 Delivery O2 Flow Rate FiO2 02/02/17 12:22 71 18 99 Nasal Cannula 3.0 02/02/17 11:34 97.6 143/65 01/30/17 17:01 21 Intake and Output 02/01/17 02/01/17 02/02/17 15:00 23:00 07:00 Intake Total 300 ml 2050 ml 400 ml Output Total 3800 ml Balance -3500 ml 2050 ml 400 ml Exam Constitutional: alert, oriented Respiratory: diminished breath sounds Cardiovascular: nl pulses, regular rate and rhythm Gastrointestinal: non-tender, soft Neurological: nl mental status Results Result Diagram: 02/02/17 0542 02/02/17 0542 Results 24 hrs Laboratory Tests Test 02/01/17 17:17 02/01/17 18:17 02/01/17 23:00 02/02/17 02:16 Bedside Glucose 218 224 H 156 Potassium Level 5.1 Test 02/02/17 05:42 White Blood Count 4.0 L Red Blood Count 2.11 L Hemoglobin 7.2 L Hematocrit 23.6 L Mean Corpuscular Volume 111.8 H Mean Corpuscular Hemoglobin 34.1 H Mean Corpuscular Hemoglobin Concent 30.5 L Red Cell Distribution Width 14.6 H Platelet Count 167 Mean Platelet Volume 11.4 H Neutrophils % 45.7 Lymphocytes % 31.0 Monocytes % 14.1 H Eosinophils % 8.6 H Basophils % 0.3 Nucleated Red Blood Cells % 0.0 Neutrophils # 1.8 Lymphocytes # 1.2 Monocytes # 0.6 Eosinophils # 0.3 Basophils # 0.0 Nucleated Red Blood Cells # 0.0 Sodium Level 142 Potassium Level 5.9 H Chloride Level 108 Carbon Dioxide Level 21 Anion Gap 19 H Blood Urea Nitrogen 72 #H Creatinine 5.45 #H Glucose Level 160 Calcium Level 7.7 L Medications Medications Current Medications Ondansetron HCl (Zofran Inj) 4 mg Q6H PRN IV NAUSEA AND/OR VOMITING Last administered on 01/17/17 20:45; Admin Dose 4 MG; Start 01/13/17 at 18:30 Nitroglycerin (Nitroglycerin (Sl Tab) 0.4 Mg) 1 tab Q5M PRN SL CHEST PAIN; Start 01/13/17 at 18:30 Acetaminophen (Tylenol Tab) 650 mg Q6H PRN PO PAIN LEVEL 1-3 OR FEVER Last administered on 02/01/17 20:40; Admin Dose 650 MG; Start 01/13/17 at 18:30 Morphine Sulfate (morphine) 2 mg Q4H PRN IV PAIN LEVEL 7-10 Last administered on 02/02/17 10:10; Admin Dose 2 MG; Start 01/13/17 at 18:30 Famotidine (Pepcid) 10 mg HS PO Last administered on 02/01/17 20:27; Admin Dose 10 MG; Start 01/13/17 at 21:00 Amlodipine Besylate (Norvasc) 10 mg DAILY PO Last administered on 02/02/17 10 :09; Admin Dose 10 MG; Start 01/14/17 at 09:00 Atorvastatin Calcium (Lipitor) 40 mg QHS PO Last administered on 02/01/17 20: 26; Admin Dose 40 MG; Start 01/13/17 at 21:00 Clonidine (Catapres) 0.2 mg TID PRN PO FOR SBP >160 Last administered on 16:43; Admin Dose 0.2 MG; Start 01/13/17 at 19:00 Clopidogrel Bisulfate (plaVIX) 75 mg DAILY PO Last administered on 02/02/17 10:08; Admin Dose 75 MG; Start 01/14/17 at 09:00 Folic Acid (Folic Acid) 1 mg DAILY PO Last administered on 02/02/17 10:09; Admin Dose 1 MG; Start 01/14/17 at 09:00 Gabapentin (Neurontin) 300 mg BID PO Last administered on 02/02/17 10:09; Admin Dose 300 MG; Start 01/13/17 at 21:00 Linagliptin (Tradjenta) 5 mg DAILY PO Last administered on 02/02/17 10:08; Admin Dose 5 MG; Start 01/14/17 at 09:00 Multivit/Ca Carb/ B Cmplx/FA/Prenat (Addie-Mikayla) 1 tab DAILY PO Last administered on 02/02/17 10:08; Admin Dose 1 TAB; Start 01/14/17 at 09:00 Polyethylene Glycol (Miralax) 17 gm BID PO Last administered on 02/02/17 10: 08; Admin Dose 17 GM; Start 01/13/17 at 21:00 Miscellaneous Information 1 ea NOTE XX ; Start 01/13/17 at 19:00 Glucose (Glutose) 15 gm Q15M PRN PO DECREASED GLUCOSE; Start 01/13/17 at 19:00 Glucose (Glutose) 22.5 gm Q15M PRN PO DECREASED GLUCOSE; Start 01/13/17 at 19: 00 Dextrose (D50w Syringe) 25 ml Q15M PRN IV DECREASED GLUCOSE; Start 01/13/17 at 19:00 Dextrose (D50w Syringe) 50 ml Q15M PRN IV DECREASED GLUCOSE; Start 01/13/17 at 19:00 Glucagon (Glucagen) 1 mg Q15M PRN IM DECREASED GLUCOSE; Start 01/13/17 at 19: 00 Glucose (Glutose) 15 gm Q15M PRN BUCCAL DECREASED GLUCOSE; Start 01/13/17 at 19:00 Morphine Sulfate (morphine) 2 mg Q4H PRN IV PAIN Last administered on 02:13; Admin Dose 2 MG; Start 01/14/17 at 01:00 Promethazine HCl/ Codeine (Phenergan/ Codeine) 5 ml Q4H PRN PO COUGH Last administered on 02/02/17 06:17; Admin Dose 5 ML; Start 01/14/17 at 12:30 Hydrocodone Bit/ Homatropine Methylb (Hycodan Liquid) 5 ml Q6 PRN PO COUGH Last administered on 01/30/17 20:53; Admin Dose 5 ML; Start 01/14/17 at 13:30 Diagnostic Test (Pha) (Accu-Chek) 1 ea 02 XX Last administered on 02/02/17 02 :18; Admin Dose 1 EA; Start 01/15/17 at 02:00 Carvedilol (Coreg) 6.25 mg BID PO Last administered on 02/02/17 10:10; Admin Dose 6.25 MG; Start 01/21/17 at 21:00 Apixaban (Eliquis) 2.5 mg BID PO Last administered on 02/02/17 10:08; Admin Dose 2.5 MG; Start 01/28/17 at 21:00 Acetaminophen/ Hydrocodone Bitart ([place] (7.5-325)) 1 tab Q6H PRN PO pain Last administered on 02/02/17 07:26; Admin Dose 1 TAB; Start 01/28/17 at 18:30 Docusate Sodium (Colace) 100 mg BID PRN PO CONSTIPATION Last administered on 16:12; Admin Dose 100 MG; Start 01/29/17 at 16:00 Lorazepam 0.5 mg 0.5 mg Q3 PRN IV ANXIETY Last administered on 02/02/17 11:15 ; Admin Dose 0.5 MG; Start 01/30/17 at 18:00 Cefazolin Sodium (Ancef 1 Gm/50 ml (Pmx)) 50 ml @ 100 mls/hr Q8 IVPB Last administered on 02/02/17 06:14; Admin Dose 100 MLS/HR; Start 01/31/17 at 11: 00 Zolpidem Tartrate (Ambien) 5 mg HS PRN PO INSOMNIA; Start 02/01/17 at 21:00 ANTHONY DUPREE Feb 02, 2017 12:47
--- NOTE | 2017-02-02 17:07 | CONS ---
Date/Time of Note Date/Time of Note DATE: 02/02/17 TIME: 17:06 Assessment/Plan Assessment/Plan Chief Complaint/Hosp Course IMPRESSION: 1. Fluid overload, uncontrolled hypertension.BETTER 2. End-stage renal disease. 3. Hypertension. 4. Diabetes mellitus. 5. Hyperkalemia. 6. Atherosclerotic heart disease. 7. Peripheral vascular disease. 8. History of dyslipidemia. 9 History of pneumonia. 10. History of leg cellulitis. 11. History of wound dehiscence. PLAN CONTINUE HD FLUID RES Problems: Consultation Date/Type/Reason Admit Date/Time Jan 13, 2017 at 18:04 Type of Consultation: RENAL Referring Provider: KIRSTIN SPANN MD 24 HR Interval Summary Constitutional: improved Exam/Review of Systems Vital Signs Vitals Vital Signs Date Time Temp Pulse Resp B/P Pulse Ox O2 Delivery O2 Flow Rate FiO2 02/02/17 15:22 98.3 83 18 143/63 91 02/02/17 12:22 Nasal Cannula 3.0 01/30/17 17:01 21 Intake and Output 02/01/17 02/01/17 02/02/17 14:59 22:59 06:59 Intake Total 2350 ml 400 ml Output Total 3800 ml Balance -1450 ml 400 ml Exam Respiratory: clear to auscultation Cardiovascular: regular rate and rhythm Gastrointestinal: bowel sounds, soft Extremities: edema (++) Results Result Diagram: 02/02/17 0542 02/02/17 0542 Results 24 hrs Laboratory Tests Test 02/01/17 17:17 02/01/17 18:17 02/01/17 23:00 02/02/17 02:16 Bedside Glucose 218 224 H 156 Potassium Level 5.1 Test 02/02/17 05:42 02/02/17 12:28 White Blood Count 4.0 L Red Blood Count 2.11 L Hemoglobin 7.2 L Hematocrit 23.6 L Mean Corpuscular Volume 111.8 H Mean Corpuscular Hemoglobin 34.1 H Mean Corpuscular Hemoglobin Concent 30.5 L Red Cell Distribution Width 14.6 H Platelet Count 167 Mean Platelet Volume 11.4 H Neutrophils % 45.7 Lymphocytes % 31.0 Monocytes % 14.1 H Eosinophils % 8.6 H Basophils % 0.3 Nucleated Red Blood Cells % 0.0 Neutrophils # 1.8 Lymphocytes # 1.2 Monocytes # 0.6 Eosinophils # 0.3 Basophils # 0.0 Nucleated Red Blood Cells # 0.0 Sodium Level 142 Potassium Level 5.9 H Chloride Level 108 Carbon Dioxide Level 21 Anion Gap 19 H Blood Urea Nitrogen 72 #H Creatinine 5.45 #H Glucose Level 160 Calcium Level 7.7 L Bedside Glucose 200 Medications Medications Current Medications Ondansetron HCl (Zofran Inj) 4 mg Q6H PRN IV NAUSEA AND/OR VOMITING Last administered on 01/17/17 20:45; Admin Dose 4 MG; Start 01/13/17 at 18:30 Nitroglycerin (Nitroglycerin (Sl Tab) 0.4 Mg) 1 tab Q5M PRN SL CHEST PAIN; Start 01/13/17 at 18:30 Acetaminophen (Tylenol Tab) 650 mg Q6H PRN PO PAIN LEVEL 1-3 OR FEVER Last administered on 02/01/17 20:40; Admin Dose 650 MG; Start 01/13/17 at 18:30 Morphine Sulfate (morphine) 2 mg Q4H PRN IV PAIN LEVEL 7-10 Last administered on 02/02/17 10:10; Admin Dose 2 MG; Start 01/13/17 at 18:30 Famotidine (Pepcid) 10 mg HS PO Last administered on 02/01/17 20:27; Admin Dose 10 MG; Start 01/13/17 at 21:00 Amlodipine Besylate (Norvasc) 10 mg DAILY PO Last administered on 02/02/17 10 :09; Admin Dose 10 MG; Start 01/14/17 at 09:00 Atorvastatin Calcium (Lipitor) 40 mg QHS PO Last administered on 02/01/17 20: 26; Admin Dose 40 MG; Start 01/13/17 at 21:00 Clonidine (Catapres) 0.2 mg TID PRN PO FOR SBP >160 Last administered on 16:43; Admin Dose 0.2 MG; Start 01/13/17 at 19:00 Clopidogrel Bisulfate (plaVIX) 75 mg DAILY PO Last administered on 02/02/17 10:08; Admin Dose 75 MG; Start 01/14/17 at 09:00 Folic Acid (Folic Acid) 1 mg DAILY PO Last administered on 02/02/17 10:09; Admin Dose 1 MG; Start 01/14/17 at 09:00 Gabapentin (Neurontin) 300 mg BID PO Last administered on 02/02/17 10:09; Admin Dose 300 MG; Start 01/13/17 at 21:00 Linagliptin (Tradjenta) 5 mg DAILY PO Last administered on 02/02/17 10:08; Admin Dose 5 MG; Start 01/14/17 at 09:00 Multivit/Ca Carb/ B Cmplx/FA/Prenat (Addie-Mikayla) 1 tab DAILY PO Last administered on 02/02/17 10:08; Admin Dose 1 TAB; Start 01/14/17 at 09:00 Polyethylene Glycol (Miralax) 17 gm BID PO Last administered on 02/02/17 10: 08; Admin Dose 17 GM; Start 01/13/17 at 21:00 Miscellaneous Information 1 ea NOTE XX ; Start 01/13/17 at 19:00 Glucose (Glutose) 15 gm Q15M PRN PO DECREASED GLUCOSE; Start 01/13/17 at 19:00 Glucose (Glutose) 22.5 gm Q15M PRN PO DECREASED GLUCOSE; Start 01/13/17 at 19: 00 Dextrose (D50w Syringe) 25 ml Q15M PRN IV DECREASED GLUCOSE; Start 01/13/17 at 19:00 Dextrose (D50w Syringe) 50 ml Q15M PRN IV DECREASED GLUCOSE; Start 01/13/17 at 19:00 Glucagon (Glucagen) 1 mg Q15M PRN IM DECREASED GLUCOSE; Start 01/13/17 at 19: 00 Glucose (Glutose) 15 gm Q15M PRN BUCCAL DECREASED GLUCOSE; Start 01/13/17 at 19:00 Morphine Sulfate (morphine) 2 mg Q4H PRN IV PAIN Last administered on 14:31; Admin Dose 2 MG; Start 01/14/17 at 01:00 Promethazine HCl/ Codeine (Phenergan/ Codeine) 5 ml Q4H PRN PO COUGH Last administered on 02/02/17 06:17; Admin Dose 5 ML; Start 01/14/17 at 12:30 Hydrocodone Bit/ Homatropine Methylb (Hycodan Liquid) 5 ml Q6 PRN PO COUGH Last administered on 01/30/17 20:53; Admin Dose 5 ML; Start 01/14/17 at 13:30 Diagnostic Test (Pha) (Accu-Chek) 1 ea 02 XX Last administered on 02/02/17 02 :18; Admin Dose 1 EA; Start 01/15/17 at 02:00 Carvedilol (Coreg) 6.25 mg BID PO Last administered on 02/02/17 10:10; Admin Dose 6.25 MG; Start 01/21/17 at 21:00 Apixaban (Eliquis) 2.5 mg BID PO Last administered on 02/02/17 10:08; Admin Dose 2.5 MG; Start 01/28/17 at 21:00 Acetaminophen/ Hydrocodone Bitart ([place] (7.5-325)) 1 tab Q6H PRN PO pain Last administered on 02/02/17 07:26; Admin Dose 1 TAB; Start 01/28/17 at 18:30 Docusate Sodium (Colace) 100 mg BID PRN PO CONSTIPATION Last administered on 16:12; Admin Dose 100 MG; Start 01/29/17 at 16:00 Lorazepam 0.5 mg 0.5 mg Q3 PRN IV ANXIETY Last administered on 02/02/17 11:15 ; Admin Dose 0.5 MG; Start 01/30/17 at 18:00 Cefazolin Sodium (Ancef 1 Gm/50 ml (Pmx)) 50 ml @ 100 mls/hr Q8 IVPB Last administered on 02/02/17 14:31; Admin Dose 100 MLS/HR; Start 01/31/17 at 11: 00 Zolpidem Tartrate (Ambien) 5 mg HS PRN PO INSOMNIA; Start 02/01/17 at 21:00 ZOFIA REAL MD Feb 02, 2017 17:07
[2017-02-02] MEDS: ACETAMINOPHEN 325 MG TAB PO PRN (18:57)
[2017-02-02] MEDS: ATORVASTATIN 40 MG TAB PO SCH (20:51)
[2017-02-02] MEDS: FAMOTIDINE 20 MG TAB PO SCH (20:52)
[2017-02-03] VITALS (19 sets, daily range): BP systolic 119–166; BP diastolic 59–98; PULSE 67–75; RESP 16–18
[2017-02-03] MEDS ORDERED: INSULIN GLARGINE [LANtus] 3 ML PEN SC SCH ×2 (01:42→20:00)
[2017-02-03] MEDS: LEVALBUTEROL (NEB) 0.63 MG/3 ML AMP HHN SCH ×4 (02:00→19:21)
[2017-02-03] MEDS: ACCU-CHEK XX SCH (02:00)
[2017-02-03] MEDS: morphine 2 MG INJ IV PRN ×5 (02:33→20:42)
[2017-02-03] MEDS: LORAZEPAM 2 MG INJ IV PRN ×4 (02:33→20:04)
[2017-02-03] MEDS: PROMETHAZINE/CODEINE 5ML CUP PO PRN (03:23)
[2017-02-03] MEDS: CEFAZOLIN 1 GM/50 ML (PMX) 50 ML IVPB SCH ×3 (06:21→22:30)
[2017-02-03] MEDS: PANTOPRAZOLE (EC) 40 MG TAB PO SCH (06:37)
[2017-02-03] MEDS: HYDROCODONE/APAP (7.5/325) TAB PO PRN ×2 (06:37→15:19)
[2017-02-03 07:34] LABS: BASOPHILS % 0.2 % (0.0-2.0); EOSINOPHILS # 0.4 10^3/ul (0.0-0.5); EOSINOPHILS % 8.4 % (0.0-7.0); HEMATOCRIT 27.9 % (37.0-47.0); HEMOGLOBIN 8.8 g/dl (12.0-16.0); LYMPHOCYTES # 1.3 10^3/ul (0.8-2.9); LYMPHOCYTES % 26.9 % (15.0-51.0); MEAN CORPUSCULAR HEMOGLOBIN 32.8 pg (29.0-33.0); MEAN CORPUSCULAR HGB CONC 31.5 g/dl (32.0-37.0); MEAN CORPUSCULAR VOLUME 104.1 fl (82.0-101.0); MEAN PLATELET VOLUME 10.9 fl (7.4-10.4); MONOCYTE # 0.6 10^3/ul (0.3-0.9); MONOCYTES % 13.1 % (0.0-11.0); NEUTROPHIL # 2.4 10^3/ul (1.6-7.5); NEUTROPHILS % 51.2 % (39.0-77.0); PLATELET COUNT 198 10^3/UL (140-415); RED BLOOD COUNT 2.68 10^6/ul (4.20-5.40); RED CELL DISTRIBUTION WIDTH 15.4 % (11.5-14.5); WHITE BLOOD COUNT 4.7 10^3/ul (4.8-10.8)
[2017-02-03 08:00] LABS: CALCIUM 7.8 mg/dl (8.4-10.2); CREATININE 4.77 mg/dl (0.44-1.00); POTASSIUM 4.8 mmol/L (3.5-5.1)
[2017-02-03] MEDS: POLYETHYLENE GLYCOL 17 GM PACKET PO SCH ×2 (08:11→21:00)
[2017-02-03] MEDS: APIXABAN 5 MG TABLET PO SCH ×2 (08:12→22:06)
[2017-02-03] MEDS: SEVELAMER CARBONATE 0.8 GM PKT PO SCH ×3 (08:12→16:56)
[2017-02-03] MEDS: MULTIVIT/CA CARB/B CMPLX/FA TAB PO SCH (08:12)
[2017-02-03] MEDS: FOLIC ACID 1 MG TAB PO SCH (08:12)
[2017-02-03] MEDS: GABAPENTIN 300 MG CAP PO SCH ×2 (08:12→22:06)
[2017-02-03] MEDS: LINAGLIPTIN 5 MG TABLET PO SCH (08:12)
[2017-02-03] MEDS: CLOPIDOGREL 75 MG TAB PO SCH (08:12)
[2017-02-03] MEDS: INSULIN ASPART [NOVOLOG] 3 ML PEN SC SCH ×7 (08:15→22:16)
[2017-02-03] MEDS: AMLODIPINE 10 MG TAB PO SCH (12:01)
--- NOTE | 2017-02-03 14:08 | PN ---
Date/Time of Note Date/Time of Note DATE: 02/03/17 TIME: 14:07 Assessment/Plan VTE Prophylaxis VTE Prophylaxis Intervention: SCD's Lines/Catheters IV [facility] [place] [facility] Urinary Cath still in place: No Assessment/Plan Chief Complaint/Hosp Course Patient is undergoing hemodialysis, s/p blood transfusion yesterday today's hemoglobin is 8.8. Blood sugar above 200. Increase Lantus to 12 continue pre- meal NovoLog. Assessment/Plan -Atrial fibrillation, currently in sinus rhythm, continue Eliquiz. Dr. William is following in cardiology consultation. -Acute respiratory failure secondary to pulmonary edema, resolving. Dr Cole is following in pulmonology consultation. -Hemodialysis dependent end-stage renal disease, Dr. Garcia is following in nephrology consultation, continue hemodialysis. Fluid restriction. -Status post fistulogram, status post left upper extremity anastomosis angioplasty by Dr. Ruano on 01/19. Status post left upper extremity fistulogram and coil embolization on 01/23. -Anemia, transfuse as needed, continue to monitor hemoglobin and hematocrit. -E. coli UTI, s/p treatment. -Diabetes mellitus type 2, hemoglobin A1c 6.5, continue Tradjenta Lantus and NovoLog -HTN -Severe PVD, with multiple vascular intervention including a left lower extremity bypass. -S/p orthopedic procedures to RUE with metal prosthetic after bone Fx -Poor medical compliance Further recommendations based on clinical course. Plan of care is discussed with Dr. Cordero Problems: Exam/Review of Systems Vital Signs Vitals Vital Signs Date Time Temp Pulse Resp B/P Pulse Ox O2 Delivery O2 Flow Rate FiO2 02/03/17 12:00 71 18 02/03/17 11:20 98.5 131/59 96 02/03/17 08:10 Nasal Cannula 3.0 02/03/17 08:01 21 Intake and Output 02/02/17 02/02/17 02/03/17 15:00 23:00 07:00 Intake Total 500 ml 2000 ml Output Total 4000 ml 3500 ml Balance -3500 ml -1500 ml Exam Constitutional: alert, oriented Respiratory: diminished breath sounds Cardiovascular: nl pulses, regular rate and rhythm Gastrointestinal: non-tender, soft Neurological: nl mental status Results Result Diagram: 02/03/1770202/03/17702 Results 24 hrs Laboratory Tests Test 02/02/17 18:09 02/02/17 21:03 02/03/17 01:53 02/03/17 07:03 Bedside Glucose 224 H 338 H 183 White Blood Count 4.7 L Red Blood Count 2.68 #L Hemoglobin 8.8 #L Hematocrit 27.9 L Mean Corpuscular Volume 104.1 H Mean Corpuscular Hemoglobin 32.8 Mean Corpuscular Hemoglobin Concent 31.5 L Red Cell Distribution Width 15.4 H Platelet Count 198 Mean Platelet Volume 10.9 H Neutrophils % 51.2 Lymphocytes % 26.9 Monocytes % 13.1 H Eosinophils % 8.4 H Basophils % 0.2 Nucleated Red Blood Cells % 0.0 Neutrophils # 2.4 Lymphocytes # 1.3 Monocytes # 0.6 Eosinophils # 0.4 Basophils # 0.0 Nucleated Red Blood Cells # 0.0 Sodium Level 142 Potassium Level 4.8 Chloride Level 103 Carbon Dioxide Level 27 Anion Gap 17 H Blood Urea Nitrogen 53 H Creatinine 4.77 H Glucose Level 194 Calcium Level 7.8 L Test 02/03/17 08:10 02/03/17 11:53 Bedside Glucose 226 H 256 H Medications Medications Current Medications Ondansetron HCl (Zofran Inj) 4 mg Q6H PRN IV NAUSEA AND/OR VOMITING Last administered on 01/17/17 20:45; Admin Dose 4 MG; Start 01/13/17 at 18:30 Nitroglycerin (Nitroglycerin (Sl Tab) 0.4 Mg) 1 tab Q5M PRN SL CHEST PAIN; Start 01/13/17 at 18:30 Acetaminophen (Tylenol Tab) 650 mg Q6H PRN PO PAIN LEVEL 1-3 OR FEVER Last administered on 02/02/17 18:57; Admin Dose 650 MG; Start 01/13/17 at 18:30 Morphine Sulfate (morphine) 2 mg Q4H PRN IV PAIN LEVEL 7-10 Last administered on 02/03/17 12:25; Admin Dose 2 MG; Start 01/13/17 at 18:30 Famotidine (Pepcid) 10 mg HS PO Last administered on 02/02/17 20:52; Admin Dose 10 MG; Start 01/13/17 at 21:00 Amlodipine Besylate (Norvasc) 10 mg DAILY PO Last administered on 02/03/17 12 :01; Admin Dose 10 MG; Start 01/14/17 at 09:00 Atorvastatin Calcium (Lipitor) 40 mg QHS PO Last administered on 02/02/17 20: 51; Admin Dose 40 MG; Start 01/13/17 at 21:00 Clonidine (Catapres) 0.2 mg TID PRN PO FOR SBP >160 Last administered on 16:43; Admin Dose 0.2 MG; Start 01/13/17 at 19:00 Clopidogrel Bisulfate (plaVIX) 75 mg DAILY PO Last administered on 02/03/17 08:12; Admin Dose 75 MG; Start 01/14/17 at 09:00 Folic Acid (Folic Acid) 1 mg DAILY PO Last administered on 02/03/17 08:12; Admin Dose 1 MG; Start 01/14/17 at 09:00 Gabapentin (Neurontin) 300 mg BID PO Last administered on 02/03/17 08:12; Admin Dose 300 MG; Start 01/13/17 at 21:00 Linagliptin (Tradjenta) 5 mg DAILY PO Last administered on 02/03/17 08:12; Admin Dose 5 MG; Start 01/14/17 at 09:00 Multivit/Ca Carb/ B Cmplx/FA/Prenat (Addie-Mikayla) 1 tab DAILY PO Last administered on 02/03/17 08:12; Admin Dose 1 TAB; Start 01/14/17 at 09:00 Polyethylene Glycol (Miralax) 17 gm BID PO Last administered on 02/03/17 08: 11; Admin Dose 17 GM; Start 01/13/17 at 21:00 Miscellaneous Information 1 ea NOTE XX ; Start 01/13/17 at 19:00 Glucose (Glutose) 15 gm Q15M PRN PO DECREASED GLUCOSE; Start 01/13/17 at 19:00 Glucose (Glutose) 22.5 gm Q15M PRN PO DECREASED GLUCOSE; Start 01/13/17 at 19: 00 Dextrose (D50w Syringe) 25 ml Q15M PRN IV DECREASED GLUCOSE; Start 01/13/17 at 19:00 Dextrose (D50w Syringe) 50 ml Q15M PRN IV DECREASED GLUCOSE; Start 01/13/17 at 19:00 Glucagon (Glucagen) 1 mg Q15M PRN IM DECREASED GLUCOSE; Start 01/13/17 at 19: 00 Glucose (Glutose) 15 gm Q15M PRN BUCCAL DECREASED GLUCOSE; Start 01/13/17 at 19:00 Morphine Sulfate (morphine) 2 mg Q4H PRN IV PAIN Last administered on 14:31; Admin Dose 2 MG; Start 01/14/17 at 01:00 Promethazine HCl/ Codeine (Phenergan/ Codeine) 5 ml Q4H PRN PO COUGH Last administered on 02/03/17 03:23; Admin Dose 5 ML; Start 01/14/17 at 12:30 Hydrocodone Bit/ Homatropine Methylb (Hycodan Liquid) 5 ml Q6 PRN PO COUGH Last administered on 01/30/17 20:53; Admin Dose 5 ML; Start 01/14/17 at 13:30 Diagnostic Test (Pha) (Accu-Chek) 1 ea 02 XX Last administered on 02/03/17 02 :00; Admin Dose 1 EA; Start 01/15/17 at 02:00 Carvedilol (Coreg) 6.25 mg BID PO Last administered on 02/03/17 12:00; Admin Dose 6.25 MG; Start 01/21/17 at 21:00 Apixaban (Eliquis) 2.5 mg BID PO Last administered on 02/03/17 08:12; Admin Dose 2.5 MG; Start 01/28/17 at 21:00 Acetaminophen/ Hydrocodone Bitart ([place] (7.5-325)) 1 tab Q6H PRN PO pain Last administered on 02/03/17 06:37; Admin Dose 1 TAB; Start 01/28/17 at 18:30 Docusate Sodium (Colace) 100 mg BID PRN PO CONSTIPATION Last administered on 16:12; Admin Dose 100 MG; Start 01/29/17 at 16:00 Lorazepam 0.5 mg 0.5 mg Q3 PRN IV ANXIETY Last administered on 02/03/17 13:30 ; Admin Dose 0.5 MG; Start 01/30/17 at 18:00 Cefazolin Sodium (Ancef 1 Gm/50 ml (Pmx)) 50 ml @ 100 mls/hr Q8 IVPB Last administered on 02/03/17 06:21; Admin Dose 100 MLS/HR; Start 01/31/17 at 11: 00 Zolpidem Tartrate (Ambien) 5 mg HS PRN PO INSOMNIA Last administered on 22:41; Admin Dose 5 MG; Start 02/01/17 at 21:00 Insulin Glargine (Lantus) 10 unit DAILY@20 SC Last administered on 02/03/17 01:59; Admin Dose 10 UNIT; Start 02/03/17 at 01:42 Epoetin Bam (Epogen (Esrd)) 10,000 units Q7D SC ; Start 02/03/17 at 17:00 ANTHONY DUPREE Feb 03, 2017 14:08
[2017-02-03] MEDS: DOCUSATE SODIUM 100 MG CAP PO PRN (15:08)
--- NOTE | 2017-02-03 15:30 | CONS ---
Date/Time of Note Date/Time of Note DATE: 02/03/17 TIME: 15:28 Assessment/Plan Assessment/Plan Additional Assessment/Plan 1. Atrial fibrillation, not on systemic anticoagulation, but on aspirin and Plavix, status post PTCA to arteriovenous (AV) fistula, with the patient having elevated CHADS-VASc score and therefore placing her at an increased risk for thromboembolic complications of atrial fibrillation and thus benefit from systemic anticoagulation if possible, and therefore, I have changed patient to eliquis and plavix and d/c'd asa - rate controlled, will monitor now 2. Hypertension, under reasonable control- con't to adjust Rx as needed. 3. Respiratory distress, improved. 4. Congestive heart failure (CHF), question diastolic versus systolic and improve volume status. 5. End-stage renal disease on hemodialysis- better , stil in CHF. 6. Diabetes mellitus. 7. Peripheral arterial disease, status post lower extremity bypass. 8. Dyslipidemia. 9. Anemia, severe. Consultation Date/Type/Reason Admit Date/Time Jan 13, 2017 at 18:04 Initial Consult Date 01/20/17 Type of Consultation: RENAL Referring Provider: KIRSTIN SPANN MD 24 HR Interval Summary Free Text/Dictation NO acute e vents - still in CHF with SOB, con't to remove fluid as tolerated. ROS: No fever, no chills, no nausea, no vomiting, no diarrhea/constipation No recent weight changes No chest pain, no PND, no orthopnea No dizziness, blurred vision No thirst, no heat or cold intolerance Exam/Review of Systems Vital Signs Vitals Vital Signs Date Time Temp Pulse Resp B/P Pulse Ox O2 Delivery O2 Flow Rate FiO2 02/03/17 15:21 98.5 72 17 155/98 95 02/03/17 08:10 Nasal Cannula 3.0 02/03/17 08:01 21 Intake and Output 02/02/17 02/02/17 02/03/17 15:00 23:00 07:00 Intake Total 500 ml 2000 ml Output Total 4000 ml 3500 ml Balance -3500 ml -1500 ml Exam General: WN/WD/NAD, AOx 3 HEENT: Unicetric/atraumatic/EOMI (follow commands) NECK: JVD elevated, no thyromegaly Lymph: no lymphadenopathy HEART: irregular with no S3, II/ systolic murmur at apex LUNGS: Coarse sounds ABD: soft, NT, ND, +BS : Intact Neuro: non focal SKIN: chronic changes EXT: 2+ edema Results Result Diagram: 02/03/17 0703 02/03/17 0703 Results 24 hrs Laboratory Tests Test 02/02/17 18:09 02/02/17 21:03 02/03/17 01:53 02/03/17 07:03 Bedside Glucose 224 H 338 H 183 White Blood Count 4.7 L Red Blood Count 2.68 #L Hemoglobin 8.8 #L Hematocrit 27.9 L Mean Corpuscular Volume 104.1 H Mean Corpuscular Hemoglobin 32.8 Mean Corpuscular Hemoglobin Concent 31.5 L Red Cell Distribution Width 15.4 H Platelet Count 198 Mean Platelet Volume 10.9 H Neutrophils % 51.2 Lymphocytes % 26.9 Monocytes % 13.1 H Eosinophils % 8.4 H Basophils % 0.2 Nucleated Red Blood Cells % 0.0 Neutrophils # 2.4 Lymphocytes # 1.3 Monocytes # 0.6 Eosinophils # 0.4 Basophils # 0.0 Nucleated Red Blood Cells # 0.0 Sodium Level 142 Potassium Level 4.8 Chloride Level 103 Carbon Dioxide Level 27 Anion Gap 17 H Blood Urea Nitrogen 53 H Creatinine 4.77 H Glucose Level 194 Calcium Level 7.8 L Test 02/03/17 08:10 02/03/17 11:53 Bedside Glucose 226 H 256 H Medications Medications Current Medications Ondansetron HCl (Zofran Inj) 4 mg Q6H PRN IV NAUSEA AND/OR VOMITING Last administered on 01/17/17 20:45; Admin Dose 4 MG; Start 01/13/17 at 18:30 Nitroglycerin (Nitroglycerin (Sl Tab) 0.4 Mg) 1 tab Q5M PRN SL CHEST PAIN; Start 01/13/17 at 18:30 Acetaminophen (Tylenol Tab) 650 mg Q6H PRN PO PAIN LEVEL 1-3 OR FEVER Last administered on 02/02/17 18:57; Admin Dose 650 MG; Start 01/13/17 at 18:30 Morphine Sulfate (morphine) 2 mg Q4H PRN IV PAIN LEVEL 7-10 Last administered on 02/03/17 12:25; Admin Dose 2 MG; Start 01/13/17 at 18:30 Famotidine (Pepcid) 10 mg HS PO Last administered on 02/02/17 20:52; Admin Dose 10 MG; Start 01/13/17 at 21:00 Amlodipine Besylate (Norvasc) 10 mg DAILY PO Last administered on 02/03/17 12 :01; Admin Dose 10 MG; Start 01/14/17 at 09:00 Atorvastatin Calcium (Lipitor) 40 mg QHS PO Last administered on 02/02/17 20: 51; Admin Dose 40 MG; Start 01/13/17 at 21:00 Clonidine (Catapres) 0.2 mg TID PRN PO FOR SBP >160 Last administered on 16:43; Admin Dose 0.2 MG; Start 01/13/17 at 19:00 Clopidogrel Bisulfate (plaVIX) 75 mg DAILY PO Last administered on 02/03/17 08:12; Admin Dose 75 MG; Start 01/14/17 at 09:00 Folic Acid (Folic Acid) 1 mg DAILY PO Last administered on 02/03/17 08:12; Admin Dose 1 MG; Start 01/14/17 at 09:00 Gabapentin (Neurontin) 300 mg BID PO Last administered on 02/03/17 08:12; Admin Dose 300 MG; Start 01/13/17 at 21:00 Linagliptin (Tradjenta) 5 mg DAILY PO Last administered on 02/03/17 08:12; Admin Dose 5 MG; Start 01/14/17 at 09:00 Multivit/Ca Carb/ B Cmplx/FA/Prenat (Addie-Mikayla) 1 tab DAILY PO Last administered on 02/03/17 08:12; Admin Dose 1 TAB; Start 01/14/17 at 09:00 Polyethylene Glycol (Miralax) 17 gm BID PO Last administered on 02/03/17 08: 11; Admin Dose 17 GM; Start 01/13/17 at 21:00 Miscellaneous Information 1 ea NOTE XX ; Start 01/13/17 at 19:00 Glucose (Glutose) 15 gm Q15M PRN PO DECREASED GLUCOSE; Start 01/13/17 at 19:00 Glucose (Glutose) 22.5 gm Q15M PRN PO DECREASED GLUCOSE; Start 01/13/17 at 19: 00 Dextrose (D50w Syringe) 25 ml Q15M PRN IV DECREASED GLUCOSE; Start 01/13/17 at 19:00 Dextrose (D50w Syringe) 50 ml Q15M PRN IV DECREASED GLUCOSE; Start 01/13/17 at 19:00 Glucagon (Glucagen) 1 mg Q15M PRN IM DECREASED GLUCOSE; Start 01/13/17 at 19: 00 Glucose (Glutose) 15 gm Q15M PRN BUCCAL DECREASED GLUCOSE; Start 01/13/17 at 19:00 Morphine Sulfate (morphine) 2 mg Q4H PRN IV PAIN Last administered on 14:31; Admin Dose 2 MG; Start 01/14/17 at 01:00 Promethazine HCl/ Codeine (Phenergan/ Codeine) 5 ml Q4H PRN PO COUGH Last administered on 02/03/17 03:23; Admin Dose 5 ML; Start 01/14/17 at 12:30 Hydrocodone Bit/ Homatropine Methylb (Hycodan Liquid) 5 ml Q6 PRN PO COUGH Last administered on 01/30/17 20:53; Admin Dose 5 ML; Start 01/14/17 at 13:30 Diagnostic Test (Pha) (Accu-Chek) 1 ea 02 XX Last administered on 02/03/17 02 :00; Admin Dose 1 EA; Start 01/15/17 at 02:00 Carvedilol (Coreg) 6.25 mg BID PO Last administered on 02/03/17 12:00; Admin Dose 6.25 MG; Start 01/21/17 at 21:00 Apixaban (Eliquis) 2.5 mg BID PO Last administered on 02/03/17 08:12; Admin Dose 2.5 MG; Start 01/28/17 at 21:00 Acetaminophen/ Hydrocodone Bitart ([place] (7.5-325)) 1 tab Q6H PRN PO pain Last administered on 02/03/17 15:19; Admin Dose 1 TAB; Start 01/28/17 at 18:30 Docusate Sodium (Colace) 100 mg BID PRN PO CONSTIPATION Last administered on 15:08; Admin Dose 100 MG; Start 01/29/17 at 16:00 Lorazepam 0.5 mg 0.5 mg Q3 PRN IV ANXIETY Last administered on 02/03/17 13:30 ; Admin Dose 0.5 MG; Start 01/30/17 at 18:00 Cefazolin Sodium (Ancef 1 Gm/50 ml (Pmx)) 50 ml @ 100 mls/hr Q8 IVPB Last administered on 02/03/17 15:08; Admin Dose 100 MLS/HR; Start 01/31/17 at 11: 00 Zolpidem Tartrate (Ambien) 5 mg HS PRN PO INSOMNIA Last administered on 22:41; Admin Dose 5 MG; Start 02/01/17 at 21:00 Epoetin Bam (Epogen (Esrd)) 10,000 units Q7D SC ; Start 02/03/17 at 17:00 Insulin Glargine (Lantus) 12 unit DAILY@20 SC ; Start 02/03/17 at 20:00 MARY JO AGUIRRE MD Feb 03, 2017 15:30
[2017-02-03] MEDS ORDERED: EPOETIN 10000 UNITS/1 ML INJ (ESRD) SC SCH (17:00)
--- NOTE | 2017-02-03 17:17 | CONS ---
Date/Time of Note Date/Time of Note DATE: 02/03/17 TIME: 17:16 Assessment/Plan Assessment/Plan Chief Complaint/Hosp Course IMPRESSION: 1. Fluid overload, uncontrolled hypertension.BETTER 2. End-stage renal disease. 3. Hypertension. 4. Diabetes mellitus. 5. Hyperkalemia.s/p hd 6. Atherosclerotic heart disease. 7. Peripheral vascular disease. 8. History of dyslipidemia. 9 History of pneumonia. 10. History of leg cellulitis. 11. History of wound dehiscence. PLAN CONTINUE HD FLUID RES Problems: Consultation Date/Type/Reason Admit Date/Time Jan 13, 2017 at 18:04 Type of Consultation: RENAL Referring Provider: KIRSTIN SPANN MD 24 HR Interval Summary Constitutional: other (sob better) Exam/Review of Systems Vital Signs Vitals Vital Signs Date Time Temp Pulse Resp B/P Pulse Ox O2 Delivery O2 Flow Rate FiO2 02/03/17 16:00 73 02/03/17 15:21 98.5 17 155/98 95 02/03/17 08:10 Nasal Cannula 3.0 02/03/17 08:01 21 Intake and Output 02/02/17 02/02/17 02/03/17 15:00 23:00 07:00 Intake Total 500 ml 2000 ml Output Total 4000 ml 3500 ml Balance -3500 ml -1500 ml Exam Respiratory: clear to auscultation Cardiovascular: regular rate and rhythm Gastrointestinal: bowel sounds (+), soft Extremities: edema (++) Results Result Diagram: 02/03/17 0703 02/03/17 0703 Results 24 hrs Laboratory Tests Test 02/02/17 18:09 02/02/17 21:03 02/03/17 01:53 02/03/17 07:03 Bedside Glucose 224 H 338 H 183 White Blood Count 4.7 L Red Blood Count 2.68 #L Hemoglobin 8.8 #L Hematocrit 27.9 L Mean Corpuscular Volume 104.1 H Mean Corpuscular Hemoglobin 32.8 Mean Corpuscular Hemoglobin Concent 31.5 L Red Cell Distribution Width 15.4 H Platelet Count 198 Mean Platelet Volume 10.9 H Neutrophils % 51.2 Lymphocytes % 26.9 Monocytes % 13.1 H Eosinophils % 8.4 H Basophils % 0.2 Nucleated Red Blood Cells % 0.0 Neutrophils # 2.4 Lymphocytes # 1.3 Monocytes # 0.6 Eosinophils # 0.4 Basophils # 0.0 Nucleated Red Blood Cells # 0.0 Sodium Level 142 Potassium Level 4.8 Chloride Level 103 Carbon Dioxide Level 27 Anion Gap 17 H Blood Urea Nitrogen 53 H Creatinine 4.77 H Glucose Level 194 Calcium Level 7.8 L Test 02/03/17 08:10 02/03/17 11:53 02/03/17 16:57 Bedside Glucose 226 H 256 H 112 Medications Medications Current Medications Ondansetron HCl (Zofran Inj) 4 mg Q6H PRN IV NAUSEA AND/OR VOMITING Last administered on 01/17/17 20:45; Admin Dose 4 MG; Start 01/13/17 at 18:30 Nitroglycerin (Nitroglycerin (Sl Tab) 0.4 Mg) 1 tab Q5M PRN SL CHEST PAIN; Start 01/13/17 at 18:30 Acetaminophen (Tylenol Tab) 650 mg Q6H PRN PO PAIN LEVEL 1-3 OR FEVER Last administered on 02/02/17 18:57; Admin Dose 650 MG; Start 01/13/17 at 18:30 Morphine Sulfate (morphine) 2 mg Q4H PRN IV PAIN LEVEL 7-10 Last administered on 02/03/17 16:56; Admin Dose 2 MG; Start 01/13/17 at 18:30 Famotidine (Pepcid) 10 mg HS PO Last administered on 02/02/17 20:52; Admin Dose 10 MG; Start 01/13/17 at 21:00 Amlodipine Besylate (Norvasc) 10 mg DAILY PO Last administered on 02/03/17 12 :01; Admin Dose 10 MG; Start 01/14/17 at 09:00 Atorvastatin Calcium (Lipitor) 40 mg QHS PO Last administered on 02/02/17 20: 51; Admin Dose 40 MG; Start 01/13/17 at 21:00 Clonidine (Catapres) 0.2 mg TID PRN PO FOR SBP >160 Last administered on 16:43; Admin Dose 0.2 MG; Start 01/13/17 at 19:00 Clopidogrel Bisulfate (plaVIX) 75 mg DAILY PO Last administered on 02/03/17 08:12; Admin Dose 75 MG; Start 01/14/17 at 09:00 Folic Acid (Folic Acid) 1 mg DAILY PO Last administered on 02/03/17 08:12; Admin Dose 1 MG; Start 01/14/17 at 09:00 Gabapentin (Neurontin) 300 mg BID PO Last administered on 02/03/17 08:12; Admin Dose 300 MG; Start 01/13/17 at 21:00 Linagliptin (Tradjenta) 5 mg DAILY PO Last administered on 02/03/17 08:12; Admin Dose 5 MG; Start 01/14/17 at 09:00 Multivit/Ca Carb/ B Cmplx/FA/Prenat (Addie-Mikayla) 1 tab DAILY PO Last administered on 02/03/17 08:12; Admin Dose 1 TAB; Start 01/14/17 at 09:00 Polyethylene Glycol (Miralax) 17 gm BID PO Last administered on 02/03/17 08: 11; Admin Dose 17 GM; Start 01/13/17 at 21:00 Miscellaneous Information 1 ea NOTE XX ; Start 01/13/17 at 19:00 Glucose (Glutose) 15 gm Q15M PRN PO DECREASED GLUCOSE; Start 01/13/17 at 19:00 Glucose (Glutose) 22.5 gm Q15M PRN PO DECREASED GLUCOSE; Start 01/13/17 at 19: 00 Dextrose (D50w Syringe) 25 ml Q15M PRN IV DECREASED GLUCOSE; Start 01/13/17 at 19:00 Dextrose (D50w Syringe) 50 ml Q15M PRN IV DECREASED GLUCOSE; Start 01/13/17 at 19:00 Glucagon (Glucagen) 1 mg Q15M PRN IM DECREASED GLUCOSE; Start 01/13/17 at 19: 00 Glucose (Glutose) 15 gm Q15M PRN BUCCAL DECREASED GLUCOSE; Start 01/13/17 at 19:00 Morphine Sulfate (morphine) 2 mg Q4H PRN IV PAIN Last administered on 14:31; Admin Dose 2 MG; Start 01/14/17 at 01:00 Promethazine HCl/ Codeine (Phenergan/ Codeine) 5 ml Q4H PRN PO COUGH Last administered on 02/03/17 03:23; Admin Dose 5 ML; Start 01/14/17 at 12:30 Hydrocodone Bit/ Homatropine Methylb (Hycodan Liquid) 5 ml Q6 PRN PO COUGH Last administered on 01/30/17 20:53; Admin Dose 5 ML; Start 01/14/17 at 13:30 Diagnostic Test (Pha) (Accu-Chek) 1 ea 02 XX Last administered on 02/03/17 02 :00; Admin Dose 1 EA; Start 01/15/17 at 02:00 Carvedilol (Coreg) 6.25 mg BID PO Last administered on 02/03/17 12:00; Admin Dose 6.25 MG; Start 01/21/17 at 21:00 Apixaban (Eliquis) 2.5 mg BID PO Last administered on 02/03/17 08:12; Admin Dose 2.5 MG; Start 01/28/17 at 21:00 Acetaminophen/ Hydrocodone Bitart ([place] (7.5-325)) 1 tab Q6H PRN PO pain Last administered on 02/03/17 15:19; Admin Dose 1 TAB; Start 01/28/17 at 18:30 Docusate Sodium (Colace) 100 mg BID PRN PO CONSTIPATION Last administered on 15:08; Admin Dose 100 MG; Start 01/29/17 at 16:00 Lorazepam 0.5 mg 0.5 mg Q3 PRN IV ANXIETY Last administered on 02/03/17 13:30 ; Admin Dose 0.5 MG; Start 01/30/17 at 18:00 Cefazolin Sodium (Ancef 1 Gm/50 ml (Pmx)) 50 ml @ 100 mls/hr Q8 IVPB Last administered on 02/03/17 15:08; Admin Dose 100 MLS/HR; Start 01/31/17 at 11: 00 Zolpidem Tartrate (Ambien) 5 mg HS PRN PO INSOMNIA Last administered on 22:41; Admin Dose 5 MG; Start 02/01/17 at 21:00 Epoetin Bam (Epogen (Esrd)) 10,000 units Q7D SC ; Start 02/03/17 at 17:00 Insulin Glargine (Lantus) 12 unit DAILY@20 SC ; Start 02/03/17 at 20:00 ZOFIA REAL MD Feb 03, 2017 17:17
[2017-02-03] MEDS: FAMOTIDINE 20 MG TAB PO SCH (22:04)
[2017-02-03] MEDS: ATORVASTATIN 40 MG TAB PO SCH (22:05)
[2017-02-04 01:44] VITALS: BP 125/59; RESP 18
[2017-02-04] MEDS: LEVALBUTEROL (NEB) 0.63 MG/3 ML AMP HHN SCH ×3 (01:53→14:00)
[2017-02-04] MEDS: morphine 2 MG INJ IV PRN ×3 (01:59→14:14)
[2017-02-04] MEDS: ACCU-CHEK XX SCH (02:26)
[2017-02-04] MEDS: HYDROCODONE/HOMATROPINE 5ML CUP PO PRN (05:41)
[2017-02-04] MEDS: CEFAZOLIN 1 GM/50 ML (PMX) 50 ML IVPB SCH ×2 (05:42→14:00)
[2017-02-04 06:29] LABS: BASOPHILS % 0.5 % (0.0-2.0); EOSINOPHILS # 0.4 10^3/ul (0.0-0.5); EOSINOPHILS % 10.9 % (0.0-7.0); HEMATOCRIT 26.7 % (37.0-47.0); HEMOGLOBIN 8.4 g/dl (12.0-16.0); LYMPHOCYTES # 1.3 10^3/ul (0.8-2.9); LYMPHOCYTES % 32.3 % (15.0-51.0); MEAN CORPUSCULAR HEMOGLOBIN 32.4 pg (29.0-33.0); MEAN CORPUSCULAR HGB CONC 31.5 g/dl (32.0-37.0); MEAN CORPUSCULAR VOLUME 103.1 fl (82.0-101.0); MEAN PLATELET VOLUME 10.8 fl (7.4-10.4); MONOCYTE # 0.6 10^3/ul (0.3-0.9); MONOCYTES % 14.5 % (0.0-11.0); NEUTROPHIL # 1.6 10^3/ul (1.6-7.5); NEUTROPHILS % 41.5 % (39.0-77.0); PLATELET COUNT 192 10^3/UL (140-415); RED BLOOD COUNT 2.59 10^6/ul (4.20-5.40); RED CELL DISTRIBUTION WIDTH 14.7 % (11.5-14.5); WHITE BLOOD COUNT 3.9 10^3/ul (4.8-10.8)
[2017-02-04 06:49] LABS: CALCIUM 8.6 mg/dl (8.4-10.2); CREATININE 4.82 mg/dl (0.44-1.00); POTASSIUM 4.6 mmol/L (3.5-5.1)
[2017-02-04 07:35] VITALS: BP 137/61; RESP 18
[2017-02-04] MEDS: GABAPENTIN 300 MG CAP PO SCH (08:16)
[2017-02-04] MEDS: CLOPIDOGREL 75 MG TAB PO SCH (08:16)
[2017-02-04] MEDS: MULTIVIT/CA CARB/B CMPLX/FA TAB PO SCH (08:16)
[2017-02-04] MEDS: LINAGLIPTIN 5 MG TABLET PO SCH (08:17)
[2017-02-04] MEDS: ACETAMINOPHEN 325 MG TAB PO PRN (08:18)
[2017-02-04] MEDS: PANTOPRAZOLE (EC) 40 MG TAB PO SCH (08:18)
[2017-02-04] MEDS: DOCUSATE SODIUM 100 MG CAP PO PRN ×2 (08:18→08:30)
[2017-02-04] MEDS: FOLIC ACID 1 MG TAB PO SCH (08:18)
[2017-02-04] MEDS: SEVELAMER CARBONATE 0.8 GM PKT PO SCH ×2 (08:19→12:30)
[2017-02-04] MEDS: AMLODIPINE 10 MG TAB PO SCH (08:19)
[2017-02-04] MEDS: POLYETHYLENE GLYCOL 17 GM PACKET PO SCH (08:19)
[2017-02-04] MEDS: LORAZEPAM 2 MG INJ IV PRN (08:21)
[2017-02-04] MEDS: INSULIN ASPART [NOVOLOG] 3 ML PEN SC SCH ×4 (08:39→12:31)
[2017-02-04] MEDS: APIXABAN 5 MG TABLET PO SCH (09:01)
[2017-02-04] MEDS ORDERED: LORAZEPAM 2 MG INJ IV ONE (10:30)
[2017-02-04] MEDS ORDERED: ALPRAZOLAM 0.25 MG TAB PO PRN (11:00)
[2017-02-04] MEDS ORDERED: PANT40TA4 PO (12:12)
[2017-02-04] MEDS ORDERED: ALPR0.254 PO (12:12)
[2017-02-04] MEDS ORDERED: ATOR40TA68 PO (12:12)
[2017-02-04] MEDS ORDERED: ASPI-664 PO (12:12)
[2017-02-04] MEDS ORDERED: GABA300C16 PO (12:12)
[2017-02-04] MEDS ORDERED: NEPH PO (12:12)
[2017-02-04] MEDS ORDERED: FOLI-49 PO (12:12)
[2017-02-04] MEDS ORDERED: SEVE800T7 PO (12:12)
[2017-02-04] MEDS ORDERED: APIX5TAB PO (12:12)
[2017-02-04] MEDS ORDERED: LINA5TAB PO (12:12)
[2017-02-04] MEDS ORDERED: AMLO-147 PO (12:12)
[2017-02-04] MEDS ORDERED: CARV6.2579 PO (12:12)
[2017-02-04] MEDS ORDERED: NOVO3I SC (12:12)
[2017-02-04] MEDS ORDERED: HYDR-3605 PO (12:12)
[2017-02-04] MEDS ORDERED: CLOP75TA4 PO (12:12)
[2017-02-04] MEDS ORDERED: LANT3I SC (12:12)
[2017-02-04] MEDS ORDERED: ALBU18HF INHALATION (12:12)
[2017-02-04] MEDS ORDERED: CLON0.2T5 PO (12:12)
--- NOTE | 2017-02-04 12:28 | CONS ---
Date/Time of Note Date/Time of Note DATE: 02/04/17 TIME: 12:27 Assessment/Plan Assessment/Plan Chief Complaint/Hosp Course IMPRESSION: 1. Fluid overload, better 2. End-stage renal disease. 3. Hypertension. 4. Diabetes mellitus. 5. Hyperkalemia.s/p hd 6. Atherosclerotic heart disease. 7. Peripheral vascular disease. 8. History of dyslipidemia. 9 History of pneumonia. 10. History of leg cellulitis. 11. History of wound dehiscence. PLAN CONTINUE HD FLUID RES renal stable Problems: Consultation Date/Type/Reason Admit Date/Time Jan 13, 2017 at 18:04 Type of Consultation: RENAL Referring Provider: KIRSTIN SPANN MD 24 HR Interval Summary Constitutional: no complaints, other (SOB BETTER) Exam/Review of Systems Vital Signs Vitals Vital Signs Date Time Temp Pulse Resp B/P Pulse Ox O2 Delivery O2 Flow Rate FiO2 02/04/17 08:08 21 02/04/17 07:35 97.5 64 18 137/61 94 02/03/17 08:10 Nasal Cannula 3.0 Intake and Output 02/03/17 02/03/17 02/04/17 15:00 23:00 07:00 Intake Total 300 ml 1050 ml 200 ml Output Total 3800 ml 3500 ml Balance -3500 ml -2450 ml 200 ml Exam Respiratory: clear to auscultation Cardiovascular: regular rate and rhythm Gastrointestinal: bowel sounds (+), soft Extremities: edema (LESS) Neurological: COTTON BROKER II-XII intact Results Result Diagram: 02/04/17 0602 02/04/17 0603 Results 24 hrs Laboratory Tests Test 02/03/17 16:57 02/03/17 22:12 02/04/17 02:25 02/04/17 06:02 Bedside Glucose 112 204 209 White Blood Count 3.9 L Red Blood Count 2.59 L Hemoglobin 8.4 L Hematocrit 26.7 L Mean Corpuscular Volume 103.1 H Mean Corpuscular Hemoglobin 32.4 Mean Corpuscular Hemoglobin Concent 31.5 L Red Cell Distribution Width 14.7 H Platelet Count 192 Mean Platelet Volume 10.8 H Neutrophils % 41.5 Lymphocytes % 32.3 Monocytes % 14.5 H Eosinophils % 10.9 H Basophils % 0.5 Nucleated Red Blood Cells % 0.0 Neutrophils # 1.6 Lymphocytes # 1.3 Monocytes # 0.6 Eosinophils # 0.4 Basophils # 0.0 Nucleated Red Blood Cells # 0.0 Test 02/04/17 06:03 02/04/17 06:31 02/04/17 08:15 02/04/17 12:18 Sodium Level 143 Potassium Level 4.6 Chloride Level 102 Carbon Dioxide Level 30 Anion Gap 16 Blood Urea Nitrogen 54 H Creatinine 4.82 H Glucose Level 182 Calcium Level 8.6 Lab Scanned Report BLOOD TRANSFUSION Bedside Glucose 203 99 Medications Medications Current Medications Ondansetron HCl (Zofran Inj) 4 mg Q6H PRN IV NAUSEA AND/OR VOMITING Last administered on 01/17/17 20:45; Admin Dose 4 MG; Start 01/13/17 at 18:30 Nitroglycerin (Nitroglycerin (Sl Tab) 0.4 Mg) 1 tab Q5M PRN SL CHEST PAIN; Start 01/13/17 at 18:30 Acetaminophen (Tylenol Tab) 650 mg Q6H PRN PO PAIN LEVEL 1-3 OR FEVER Last administered on 02/04/17 08:18; Admin Dose 650 MG; Start 01/13/17 at 18:30 Morphine Sulfate (morphine) 2 mg Q4H PRN IV PAIN LEVEL 7-10 Last administered on 02/04/17 05:41; Admin Dose 2 MG; Start 01/13/17 at 18:30 Famotidine (Pepcid) 10 mg HS PO Last administered on 02/03/17 22:04; Admin Dose 10 MG; Start 01/13/17 at 21:00 Amlodipine Besylate (Norvasc) 10 mg DAILY PO Last administered on 02/04/17 08: 19; Admin Dose 10 MG; Start 01/14/17 at 09:00 Atorvastatin Calcium (Lipitor) 40 mg QHS PO Last administered on 02/03/17 22: 05; Admin Dose 40 MG; Start 01/13/17 at 21:00 Clonidine (Catapres) 0.2 mg TID PRN PO FOR SBP >160 Last administered on 22:05; Admin Dose 0.2 MG; Start 01/13/17 at 19:00 Clopidogrel Bisulfate (plaVIX) 75 mg DAILY PO Last administered on 02/04/17 08 :16; Admin Dose 75 MG; Start 01/14/17 at 09:00 Folic Acid (Folic Acid) 1 mg DAILY PO Last administered on 02/04/17 08:18; Admin Dose 1 MG; Start 01/14/17 at 09:00 Gabapentin (Neurontin) 300 mg BID PO Last administered on 02/04/17 08:16; Admin Dose 300 MG; Start 01/13/17 at 21:00 Linagliptin (Tradjenta) 5 mg DAILY PO Last administered on 02/04/17 08:17; Admin Dose 5 MG; Start 01/14/17 at 09:00 Multivit/Ca Carb/ B Cmplx/FA/Prenat (Addie-Mikayla) 1 tab DAILY PO Last administered on 02/04/17 08:16; Admin Dose 1 TAB; Start 01/14/17 at 09:00 Polyethylene Glycol (Miralax) 17 gm BID PO Last administered on 02/04/17 08:19 ; Admin Dose 17 GM; Start 01/13/17 at 21:00 Miscellaneous Information 1 ea NOTE XX ; Start 01/13/17 at 19:00 Glucose (Glutose) 15 gm Q15M PRN PO DECREASED GLUCOSE; Start 01/13/17 at 19:00 Glucose (Glutose) 22.5 gm Q15M PRN PO DECREASED GLUCOSE; Start 01/13/17 at 19: 00 Dextrose (D50w Syringe) 25 ml Q15M PRN IV DECREASED GLUCOSE; Start 01/13/17 at 19:00 Dextrose (D50w Syringe) 50 ml Q15M PRN IV DECREASED GLUCOSE; Start 01/13/17 at 19:00 Glucagon (Glucagen) 1 mg Q15M PRN IM DECREASED GLUCOSE; Start 01/13/17 at 19: 00 Glucose (Glutose) 15 gm Q15M PRN BUCCAL DECREASED GLUCOSE; Start 01/13/17 at 19:00 Morphine Sulfate (morphine) 2 mg Q4H PRN IV PAIN Last administered on 14:31; Admin Dose 2 MG; Start 01/14/17 at 01:00 Promethazine HCl/ Codeine (Phenergan/ Codeine) 5 ml Q4H PRN PO COUGH Last administered on 02/03/17 03:23; Admin Dose 5 ML; Start 01/14/17 at 12:30 Hydrocodone Bit/ Homatropine Methylb (Hycodan Liquid) 5 ml Q6 PRN PO COUGH Last administered on 02/04/17 05:41; Admin Dose 5 ML; Start 01/14/17 at 13:30 Diagnostic Test (Pha) (Accu-Chek) 1 ea 02 XX Last administered on 02/04/17 02: 26; Admin Dose 1 EA; Start 01/15/17 at 02:00 Carvedilol (Coreg) 6.25 mg BID PO Last administered on 02/04/17 08:20; Admin Dose 6.25 MG; Start 01/21/17 at 21:00 Apixaban (Eliquis) 2.5 mg BID PO Last administered on 02/04/17 09:01; Admin Dose 2.5 MG; Start 01/28/17 at 21:00 Acetaminophen/ Hydrocodone Bitart ([place] (7.5-325)) 1 tab Q6H PRN PO pain Last administered on 02/03/17 15:19; Admin Dose 1 TAB; Start 01/28/17 at 18:30 Docusate Sodium 100 mg 100 mg BID PRN PO CONSTIPATION Last administered on 15:08; Admin Dose 100 MG; Start 01/29/17 at 16:00 Cefazolin Sodium (Ancef 1 Gm/50 ml (Pmx)) 50 ml @ 100 mls/hr Q8 IVPB Last administered on 02/04/17 05:42; Admin Dose 100 MLS/HR; Start 01/31/17 at 11:00 Zolpidem Tartrate (Ambien) 5 mg HS PRN PO INSOMNIA Last administered on 22:41; Admin Dose 5 MG; Start 02/01/17 at 21:00 Epoetin Bam (Epogen (Esrd)) 10,000 units Q7D SC Last administered on 23:02; Admin Dose 10,000 UNITS; Start 02/03/17 at 17:00 Insulin Glargine (Lantus) 12 unit DAILY@20 SC Last administered on 02/03/17 22:16; Admin Dose 12 UNIT; Start 02/03/17 at 20:00 Alprazolam (Xanax) 0.25 mg Q6H PRN PO ANXIETY; Start 02/04/17 at 11:00 ZOFIA REAL MD Feb 04, 2017 12:28
--- NOTE | 2017-02-04 13:03 | DS ---
Date/Time of Note Date/Time of Note DATE: 02/04/17 TIME: 12:59 Discharge Summary Admission/Discharge Info Admit Date/Time Jan 13, 2017 at 18:04 Discharge Date/Time Patient Condition: Stable Hx of Present Illness Patient is a 56-year-old female presented to emergency room with complaints of shortness of breath. Patient is known to me from previous admission, has a history of hemodialysis dependent end-stage renal disease, hypertension, diabetes, peripheral vascular disease, was previously treated for bilateral lower extremity cellulitis. Patient stated that she has been sick with sore throat cough and generalized weakness and missed her hemodialysis. Patient got extremely short of breath today and presented to the emergency room. Patient underwent chest x-ray which revealed pulmonary edema. Patient potassium was noted to be elevated to 5.3. Also hypotensive with systolic blood pressure in 200s on admission. Patient is seen by Dr. Garcia in nephrology consultation and will undergo hemodialysis today. Hospital Course -Atrial fibrillation, currently in sinus rhythm, continue Eliquiz. Dr. William is following in cardiology consultation. -Acute respiratory failure secondary to pulmonary edema, resolving. Dr Cole is following in pulmonology consultation. -Hemodialysis dependent end-stage renal disease, Dr. Garcia is following in nephrology consultation, continue hemodialysis. Fluid restriction. -Status post fistulogram, status post left upper extremity anastomosis angioplasty by Dr. Ruano on 01/19. Status post left upper extremity fistulogram and coil embolization on 01/23. -Anemia, transfuse as needed, continue to monitor hemoglobin and hematocrit. -E. coli UTI, s/p treatment. -Diabetes mellitus type 2, hemoglobin A1c 6.5, continue Tradjenta Lantus and NovoLog -HTN -Severe PVD, with multiple vascular intervention including a left lower extremity bypass. -S/p orthopedic procedures to RUE with metal prosthetic after bone Fx -Poor medical compliance Home Meds Active Scripts Alprazolam* (Alprazolam*) 0.25 Mg Tablet, 0.25 MG PO Q6H Y for ANXIETY, #30 TAB Prov:ANTHONY DUPREE 02/04/17 Apixaban* (Eliquis*) 5 Mg Tablet, 2.5 MG PO BID for 30 Days, TAB Prov:ANTHONY DUPREE 02/04/17 Insulin Glargine* (Lantus*) 100 Unit/Ml Soln, 16 UNIT SC DAILY@20 for 30 Days Prov:TREVORANTHONY 02/04/17 Insulin Aspart* (Novolog Insulin Pen*) 100 Unit/Ml Soln, 6 UNIT SC WITH MEALS for 30 Days Prov:TREVOR02/04/17 Hydrocodone/Acetaminophen (Hydrocodon-Acetaminoph 7.5-325) 1 Each Tablet, 1 TAB PO Q6H Y for pain, #30 TAB Prov:02/04/17 Albuterol Sulfate* (Ventolin HFA*) 18 Gm Hfa.aer.ad, 2 PUFF INHALATION Q4H for 30 Days, #1 INHALER Prov:02/04/17 Linagliptin (TRADJENTA) 5 Mg Tablet, 5 MG PO DAILY for 30 Days, TAB Prov:02/04/17 Pantoprazole* (Pantoprazole*) 40 Mg Tablet.dr, 40 MG PO AC BREAKFAST for 30 Days , TAB Prov:02/04/17 Sevelamer Carbonate* (Renvela*) 800 Mg Tablet, 0.8 GM PO WITH MEALS for 30 Days , TAB Prov:02/04/17 Multivit/Ca Carb/B Cmplx/Fa* (Addie-Mikayla*) 1 Tab Tab, 1 TAB PO DAILY for 30 Days , TAB Prov:02/04/17 Folic Acid* (Folic Acid*) 1 Mg Tablet, 1 MG PO DAILY for 30 Days, TAB Prov:02/04/17 Clonidine Hcl* (Clonidine Hcl*) 0.2 Mg Tablet, 0.2 MG PO TID Y for HTN for 30 Days, TAB Prov:02/04/17 Clopidogrel Bisulfate* (Clopidogrel Bisulfate*) 75 Mg Tablet, 75 MG PO DAILY, # 30 TAB Prov:TREVOR02/04/17 Carvedilol* (Carvedilol*) 6.25 Mg Tablet, 6.25 MG PO DAILY, #60 TAB Prov:SCARLETT02/04/17 Gabapentin* (Gabapentin*) 300 Mg Capsule, 300 MG PO BID, #60 CAP Prov:NAZARIO DUPREE02/04/17 Atorvastatin* (Atorvastatin*) 40 Mg Tablet, 40 MG PO QHS, #30 TAB Prov:NAZARIOANTHONY 02/04/17 Amlodipine Besylate* (Amlodipine Besylate*) 10 Mg Tablet, 10 MG PO DAILY, #30 TAB Prov:DIMPLENAZARIO GUTIERREZANTHONY 02/04/17 Aspirin* (Aspirin* EC) 81 Mg Tablet.dr, 81 MG PO DAILY for 30 Days, TAB Prov:DIMPLENAZARIOANTHONY 02/04/17 Insulin Aspart* (Novolog Insulin Pen*) 100 Unit/Ml Soln, 10 UNIT SC WITH MEALS for 30 Days Prov:11/28/16 Insulin Glargine* (Lantus*) 100 Unit/Ml Soln, 25 UNIT SC DAILY@20 for 30 Days Prov:NAZARIO DUPREEETLANA 11/28/16 Reported Medications Polyethylene Glycol* (Miralax*) 17 Gm Powd.pack, 17 GM PO BID, #60 PACKET 01/13/17 Losartan Potassium* (Losartan Potassium*) 50 Mg Tablet, 50 MG PO DAILY, TAB 11/13/16 Furosemide* (Furosemide*) 80 Mg Tablet, 80 MG PO BID, #60 TAB 11/13/16 Follow-up Plan f/up with HD center tomorrow, f/up with PMD in 1-2 weeks. Primary Care Provider Bernie Diamond Pending Labs Laboratory Tests Test 02/03/17 16:57 02/03/17 22:12 02/04/17 02:25 02/04/17 06:02 Bedside Glucose 112mg/dL (70-220) 204mg/dL (70-220) 209mg/dL (70-220) White Blood Count 3.910^3/ul (4.8-10.8) Red Blood Count 2.5910^6/ul (4.20-5.40) Hemoglobin 8.4g/dl (12.0-16.0) Hematocrit 26.7% (37.0-47.0) Mean Corpuscular Volume 103.1fl (82.0-101.0) Mean Corpuscular Hemoglobin 32.4pg (29.0-33.0) Mean Corpuscular Hemoglobin Concent 31.5g/dl (32.0-37.0) Red Cell Distribution Width 14.7% (11.5-14.5) Platelet Count 43308^3/UL (140-415) Mean Platelet Volume 10.8fl (7.4-10.4) Neutrophils % 41.5% (39.0-77.0) Lymphocytes % 32.3% (15.0-51.0) Monocytes % 14.5% (0.0-11.0) Eosinophils % 10.9% (0.0-7.0) Basophils % 0.5% (0.0-2.0) Nucleated Red Blood Cells % 0.0/100WBC (0.0-0.0) Neutrophils # 1.610^3/ul (1.6-7.5) Lymphocytes # 1.310^3/ul (0.8-2.9) Monocytes # 0.610^3/ul (0.3-0.9) Eosinophils # 0.410^3/ul (0.0-0.5) Basophils # 0.010^3/ul (0.0-0.1) Nucleated Red Blood Cells # 0.010^3/ul (0.0-0.0) Test 02/04/17 06:03 02/04/17 06:31 02/04/17 08:15 02/04/17 12:18 Sodium Level 143mmol/L (135-144) Potassium Level 4.6mmol/L (3.5-5.1) Chloride Level 102mmol/L (97-110) Carbon Dioxide Level 30mmol/L (21-31) Anion Gap 16 (8-16) Blood Urea Nitrogen 54mg/dl (7-20) Creatinine 4.82mg/dl (0.44-1.00) Glucose Level 182mg/dl (70-220) Calcium Level 8.6mg/dl (8.4-10.2) Lab Scanned Report BLOOD [id number] Bedside Glucose 203mg/dL (70-220) 99mg/dL (70-220) ANTHONY DUPREE Feb 04, 2017 13:03
[2017-02-04 15:57] VITALS: BP 166/70; RESP 16
== END 2017-02-04 17:10 | disposition home or self-care (01) | DRG 252 ==
LOC: E/R 12:17 → TEL 18:04 → MS2 02-03 21:14
PROVIDERS: ADMIT Internal Medicine; ATTEND Internal Medicine
PROC: 5A1D70Z Performance of Urinary Filtration, Intermittent, Less than 6 Hours Per Day (ICD-10-PCS; 2017-01-13)
PROC: B51WYZZ Fluoroscopy of Dialysis Shunt/Fistula using Other Contrast (ICD-10-PCS; 2017-01-19)
PROC: 03783ZZ Dilation of Left Brachial Artery, Percutaneous Approach (ICD-10-PCS; principal; 2017-01-19 15:30)
PROC: 30233N1 Transfusion of Nonautologous Red Blood Cells into Peripheral Vein, Percutaneous Approach (ICD-10-PCS; 2017-01-22)
PROC: 05LF3DZ Occlusion of Left Cephalic Vein with Intraluminal Device, Percutaneous Approach (ICD-10-PCS; 2017-01-23)
PROC: 05LF3DZ Occlusion of Left Cephalic Vein with Intraluminal Device, Percutaneous Approach (ICD-10-PCS; 2017-01-23 07:30)
DX: I13.2 Hypertensive heart and chronic kidney disease with heart failure and with stage 5 chronic kidney disease, or end stage renal disease (principal); J96.01 Acute respiratory failure with hypoxia; N18.6 End stage renal disease; I50.33 Acute on chronic diastolic (congestive) heart failure; N39.0 Urinary tract infection, site not specified; I16.1 Hypertensive emergency; T82.858A Stenosis of other vascular prosthetic devices, implants and grafts, initial encounter; T82.898A Other specified complication of vascular prosthetic devices, implants and grafts, initial encounter; J98.11 Atelectasis; L97.929 Non-pressure chronic ulcer of unspecified part of left lower leg with unspecified severity; E11.22 Type 2 diabetes mellitus with diabetic chronic kidney disease; E11.621 Type 2 diabetes mellitus with foot ulcer; E87.70 Fluid overload, unspecified; I73.9 Peripheral vascular disease, unspecified; E87.5 Hyperkalemia; I25.10 Atherosclerotic heart disease of native coronary artery without angina pectoris; E78.5 Hyperlipidemia, unspecified; D64.9 Anemia, unspecified; I48.91 Unspecified atrial fibrillation; E11.42 Type 2 diabetes mellitus with diabetic polyneuropathy; E11.649 Type 2 diabetes mellitus with hypoglycemia without coma; Y83.8 Other surgical procedures as the cause of abnormal reaction of the patient, or of later complication, without mention of misadventure at the time of the procedure; Y92.238 Other place in hospital as the place of occurrence of the external cause; B96.20 Unspecified Escherichia coli [E. coli] as the cause of diseases classified elsewhere; L97.529 Non-pressure chronic ulcer of other part of left foot with unspecified severity; E11.622 Type 2 diabetes mellitus with other skin ulcer; G47.33 Obstructive sleep apnea (adult) (pediatric); R07.9 Chest pain, unspecified; Z89.411 Acquired absence of right great toe; Z89.421 Acquired absence of other right toe(s); Z99.2 Dependence on renal dialysis; Z91.14 Patient's other noncompliance with medication regimen; Z79.02 Long term (current) use of antithrombotics/antiplatelets; Z79.4 Long term (current) use of insulin
CPT/HCPCS: 36415; 36430; 36600; 36901; 71010; 71270; 75710; 80048; 80053; 80061; 81001; 82550; 82553; 82803; 82962; 83036; 83690; 83880; 84132; 84484; 85025; 85610; 85730; 86850; 86900; 86901; 86920; 87086; 87400; 90935; 93005; 93306; 93931; 94640; 94664; 96372; 96374; 96375; 96376; C1725; C1887; C1894; J0690; J1644; J1815; J2060; J2250; J2270; J2405; J2997; J3010; J7040; P9016; Q4081; Q9967

== ENCOUNTER 2017-06-17 13:37 | Inpatient (IN) | END 2017-07-02 15:25 | disposition home health service (06) | DRG 638 ==

== ENCOUNTER 2018-08-09 14:31 | Inpatient (IN) | payer OTHER ==
[~2018-08-09] VITALS: Ht 160 cm; Wt 102.3 kg
[~2018-08-09 14:31] MED LIST changes: +ALBU18HF INHALATION; +APIX5TAB PO; -ASPI-664 PO; +BENG30OI TOP; +BUS5 PO; +CLOP75TA19 PO; -CLOP75TA4 PO; +DOCU-216 PO; -DOCU100T PO; +DULO30CA45 PO; -FURO80TA3 PO; -HYDR-3498 PO; +HYDR-3601 PO; +HYDR-3605 PO; +LACT20SO2 PO; -LOSA50TA6 PO; +OSEL30CA PO
--- NOTE | 2018-08-09 15:13 | ERD ---
ER Documentation Chief Complaint Chief Complaint from APC: chills, bones aching, cough HPI The patient is a 58-year-old female, presenting to the ER from [facility] where she went today for wound check of her right foot chronic osteomyelitis because of fever and cough. She has not been feeling well for the last 3 days, worse today, complains of fever, chills, cough. She denies chest pain, complains of chronic dyspnea, denies abdominal pain, vomiting, dysuria, diarrhea. She complains of bilateral knee and bilateral ankle and joints pain. She does not smoke nor drink Past medical history: Hypertension, asthma, anxiety, peripheral neuropathy, right foot chronic ulcer mellitus, chronic kidney disease on hemodialysis Thursday and Thursday, peripheral vascular disease Past surgical history: Left upper extremity AV fistula, left upper chest hemodialysis catheter ROS All systems reviewed and are negative except as per history of present illness. Medications Home Meds Reported Medications Metoprolol Tartrate* (Lopressor*) 25 Mg Tab, 25 MG PO BID, #60 TAB 08/09/18 Pantoprazole* (Pantoprazole*) 40 Mg Tablet.dr, 40 MG PO AC BREAKFAST, TAB 08/09/18 Diltiazem Hcl* (Diltiazem XT) 120 Mg Capsule.sa, 120 MG PO DAILY, #30 CAP 08/09/18 Amlodipine Besylate* (Norvasc*) 5 Mg Tablet, 5 MG PO DAILY, TAB 08/09/18 Buspirone Hcl* (Buspirone Hcl*) 10 Mg Tab, 10 MG PO TID, TAB 08/09/18 Furosemide* (Furosemide*) 20 Mg Tablet, 20 MG PO DAILY, #60 TAB 08/09/18 Gabapentin* (Gabapentin*) 300 Mg Capsule, 300 MG PO TID, #90 CAP 08/09/18 Methocarbamol* (Methocarbamol*) 500 Mg Tablet, 500 MG PO DAILY, TAB 08/09/18 Sevelamer Hcl* (Renagel*) 800 Mg Tablet, 1600 MG PO WITH MEALS, TAB 08/09/18 Apixaban* (Eliquis*) 5 Mg Tablet, 5 MG PO BID, TAB 08/09/18 Discontinued Reported Medications Insulin Aspart* (Novolog Insulin Pen*) 100 Unit/Ml Soln, 0 SC .SLIDING SCALE AC, EA 06/17/17 Insulin Glargine* (Lantus*) 100 Unit/Ml Soln, 40 UNIT SC QHS, #1 VIAL 06/17/17 Discontinued Scripts Oseltamivir Phosphate* (Tamiflu*) 30 Mg Capsule, 30 MG PO DAILY for 2 Days, CAP Prov:VIOLET RUDOLPH 07/02/17 Menthol/Methyl Salicylate (Analgesic [place]) 28 Gm Oint...g., 1 APPLIC TOP TID PRN for PAIN, #1 Prov:VIOLET RUDOLPH 07/02/17 Lactulose* (Lactulose*) 20 Gm/30 Ml Solution, 30 GM PO BID PRN for CONSTIPATION for 30 Days Prov:VIOLET RUDOLPH 07/02/17 Hydrocodone Bit-Acetaminophen (Hydrocodone Bit-APAP) 5-325MG Tablet, 1 TAB PO Q6H PRN for MODERATE PAIN LEVEL 4-6, #20 TAB Prov:VIOLET RUDOLPH 07/02/17 Duloxetine Hcl* (Cymbalta*) 30 Mg Capsule.dr, 30 MG PO BID for 30 Days Prov:VIOLET RUDOLPH 07/02/17 Docusate Sodium (Dok) 100 Mg Capsule, 100 MG PO Q12H PRN for CONSTIPATION for 30 Days, CAP Prov:VIOLET RUDOLPH 07/02/17 Buspirone Hcl* (Buspar*) 5 Mg Tab, 5 MG PO BID for 30 Days, TAB Prov:VIOLET RUDOLPH 07/02/17 Albuterol Sulfate* (Ventolin HFA*) 18 Gm Hfa.aer.ad, 2 PUFF INHALATION Q6H RESP THERAPY, #1 Prov:VIOLET RUDOLPH 07/02/17 Alprazolam* (Alprazolam*) 0.25 Mg Tablet, 0.25 MG PO Q6H PRN for ANXIETY, #30 TAB Prov:ANTHONY DUPREE 02/04/17 Apixaban* (Eliquis*) 5 Mg Tablet, 2.5 MG PO BID for 30 Days, TAB Prov:ANTHONY DUPREE 02/04/17 Hydrocodone/Acetaminophen (Hydrocodon-Acetaminoph 7.5-325) 1 Each Tablet, 1 TAB PO Q6H PRN for pain, #30 TAB Prov:ANTHONY DUPREE 02/04/17 Albuterol Sulfate* (Ventolin HFA*) 18 Gm Hfa.aer.ad, 2 PUFF INHALATION Q4H for 30 Days, #1 INHALER Prov:02/04/17 Linagliptin (TRADJENTA) 5 Mg Tablet, 5 MG PO DAILY for 30 Days, TAB Prov:02/04/17 Pantoprazole* (Pantoprazole*) 40 Mg Tablet.dr, 40 MG PO AC BREAKFAST for 30 Days, TAB Prov:02/04/17 Sevelamer Carbonate* (Renvela*) 800 Mg Tablet, 0.8 GM PO WITH MEALS for 30 Days, TAB Prov:02/04/17 Multivit/Ca Carb/B Cmplx/Fa* (Addie-Mikayla*) 1 Tab Tab, 1 TAB PO DAILY for 30 Days, TAB Prov:02/04/17 Folic Acid* (Folic Acid*) 1 Mg Tablet, 1 MG PO DAILY for 30 Days, TAB Prov:02/04/17 Clonidine Hcl* (Clonidine Hcl*) 0.2 Mg Tablet, 0.2 MG PO TID PRN for HTN for 30 Days, TAB Prov:02/04/17 Clopidogrel Bisulfate* (Clopidogrel Bisulfate*) 75 Mg Tablet, 75 MG PO DAILY, #30 TAB Prov:02/04/17 Carvedilol* (Carvedilol*) 6.25 Mg Tablet, 6.25 MG PO DAILY, #60 TAB Prov:02/04/17 Gabapentin* (Gabapentin*) 300 Mg Capsule, 300 MG PO BID, #60 CAP Prov:02/04/17 Atorvastatin* (Atorvastatin*) 40 Mg Tablet, 40 MG PO QHS, #30 TAB Prov:02/04/17 Amlodipine Besylate* (Amlodipine Besylate*) 10 Mg Tablet, 10 MG PO DAILY, #30 TAB Prov:02/04/17 Allergies Allergies: Coded Allergies: No Known Allergies (Verified Allergy, Unknown, 08/09/18) PMhx/Soc History of Surgery: Yes (RUE xs from FX, ovary removal, vascular sx right leg, angiogram) Anesthesia Reaction: No Hx Neurological Disorder: No Hx Respiratory Disorders: Yes (asthma) Hx Cardiac Disorders: Yes (HTN,) Hx Psychiatric Problems: Yes (anxiety) Hx Miscellaneous Medical Probl: No Hx Alcohol Use: No Hx Substance Use: No Hx Tobacco Use: No Physical Exam Vitals Vital Signs Date Temp Pulse Resp B/P (MAP) Pulse Ox O2 O2 Flow FiO2 Time Delivery Rate 08/09/18 68 20 88 21 17:51 08/09/18 Nasal 16:29 Cannula 08/09/18 101.8 118 30 173/79 88 14:56 (110) Physical Exam Const: No acute distress. Head: Atraumatic. Eyes: Normal Conjunctiva. ENT: Normal External Ears, Nose and Mouth. Neck: Full range of motion. No meningismus. Resp: bilateral expiratory wheezes, left basilar crackle Cardio: Regular rate and rhythm. Abd: Soft, non distended, normal bowel sounds, non tender. Skin: No petechiae or rashes. Back: No midline or flank tenderness. Ext: No cyanosis, or edema. Right foot is immobilized Neur: Awake and alert. No focal deficit Psych: Normal Mood and Affect. Result Diagram: 08/09/18 1550 08/09/18 1550 Results 24 hrs Laboratory Tests Test 08/09/18 14:54 08/09/18 15:50 08/09/18 15:55 08/09/18 17:45 Bedside Glucose 111 mg/dL 103 mg/dL White Blood Count 6.5 10^3/ul Red Blood Count 3.20 10^6/ul Hemoglobin 11.1 g/dl Hematocrit 35.7 % Mean Corpuscular 111.6 fl Volume Mean Corpuscular 34.7 pg Hemoglobin Mean Corpuscular 31.1 g/dl Hemoglobin Concent Red Cell Distribution 16.8 % Width Platelet Count 149 10^3/UL Mean Platelet Volume 10.9 fl Immature Granulocytes 0.300 % % Neutrophils % 83.4 % Lymphocytes % 5.5 % Monocytes % 9.5 % Eosinophils % 1.1 % Basophils % 0.2 % Nucleated Red Blood 0.0 /100WBC Cells % Immature Granulocytes 0.020 10^3/ul # Neutrophils # 5.5 10^3/ul Lymphocytes # 0.4 10^3/ul Monocytes # 0.6 10^3/ul Eosinophils # 0.1 10^3/ul Basophils # 0.0 10^3/ul Nucleated Red Blood 0.0 10^3/ul Cells # Prothrombin Time 15.4 Sec Prothrombin Time Ratio 1.2 INR International 1.21 Normalized Ratio Activated 37.1 Sec Partial Thromboplast Time Sodium Level 141 mmol/L Potassium Level 6.0 mmol/L Chloride Level 100 mmol/L Carbon Dioxide Level 25 mmol/L Anion Gap 16 Blood Urea Nitrogen 66 mg/dl Creatinine 7.96 mg/dl Est Glomerular Filtrat 5 mL/min Rate mL/min Glucose Level 100 mg/dl Calcium Level 9.6 mg/dl Total Bilirubin 0.1 mg/dl Direct Bilirubin 0.00 mg/dl Indirect Bilirubin 0.1 mg/dl Aspartate Amino 20 IU/L Transf (AST/SGOT) Alanine 10 IU/L Aminotransferase (ALT/ SGPT) Alkaline Phosphatase 116 IU/L Troponin I 0.230 ng/ml Total Protein 8.0 g/dl Albumin 4.3 g/dl Globulin 3.70 g/dl Albumin/Globulin Ratio 1.16 POC Venous Lactate 1.7 mmol/L Current Medications Medications Dose Sig/Kayla Start Time Status Last (Trade) Ordered Route PRN Stop Time Admin Dose Reason Admin 650 mg ONCE ONCE 08/09/18 DC 08/09/18 Acetaminophen PO 15:30 08/09/18 16:03 (Tylenol 15:31 Tab) 1.25 mg ONCE ONCE 08/09/18 DC Levalbuterol HHN 17:00 08/09/18 (Xopenex 17:01 [facility]) Ipratropium 0.5 mg ONCE ONCE 08/09/18 DC [place] HHN 17:00 08/09/18 (Atrovent 17:01 0.02% (Neb)) Vancomycin 250 ml @ ONCE ONCE 08/09/18 HCl 125 mls/hr IVPB 17:30 08/09/18 19:29 Cefepime HCl 50 ml @ ONCE ONCE 08/09/18 08/09/18 100 mls/hr IVPB 17:30 08/09/18 17:42 17:59 Morphine 2 mg ONCE STAT 08/09/18 DC 08/09/18 Sulfate IV 17:04 08/09/18 17:16 (morphine) 17:07 Ondansetron 4 mg ONCE STAT 08/09/18 DC 08/09/18 HCl (Zofran IV 17:04 08/09/18 17:15 Inj) 17:07 Aspirin 162 mg ONCE ONCE 08/09/18 DC (Aspirin) PO 17:30 08/09/18 17:31 Sodium 30 gm ONCE STAT 08/09/18 DC 08/09/18 Polystyrene PO 17:07 08/09/18 17:43 Sulfonate 17:19 (Kayexelate 15 Gm Kit (Powder+Sorbi shannon)) Albuterol 15 mg ONCE STAT 08/09/18 DC 08/09/18 (Proventil INH 17:07 08/09/18 17:44 0.5% (Neb)) 17:18 Insulin 10 unit ONCE STAT 08/09/18 DC 08/09/18 Human IVP 17:07 08/09/18 17:41 Regular 17:20 (Humulin R) Dextrose ONCE PRN 08/09/18 (D50w IV DECREASED 17:30 08/10/18 Syringe) GLUCOSE 17:29 Dextrose 100 ml ONCE ONCE 08/09/18 DC (D50w IV 17:30 08/09/18 Syringe) 17:31 Procedures/[place] [id number] Radiology Main Line: [phone] DIAGNOSTIC IMAGING REPORT Patient: RINA CAREY : 1960 Age: 58 Sex: F MR #: [id number] DOS: 08/09/18 [facility] Ordering MD: BHAVNA GUZMAN MD Location: E/R Room/Bed: PROCEDURE: XR Chest. CLINICAL INDICATION: Shortness of breath TECHNIQUE: A frontal view of the chest was performed. COMPARISON: December 27, 2015 FINDINGS: There is a left dual-lumen central venous catheter in good positioning. There is mild cardiomegaly, vascular congestion, and left lower lobe lung infiltrates worrisome for pneumonia. No pneumothorax or pleural effusion. There is a plate and multiple screws within the right humerus. IMPRESSION: Central venous catheter in good positioning. Mild cardiomegaly, vascular congestion, and new left lower lobe infiltrates worrisome for pneumonia. RPTAT: EE .Leti Agudelo MD, MD Date Time Electronically viewed and signed by .Leti Agudelo MD, MD on 08/09/2018 16:52 .F/ CC: BHAVNA GUZMAN MD [phone] EKG: Read by emergency physician Rate/Rhythm: Normal Sinus Rhythm 99 beats/min QRS, ST, T-waves: No ST elevation, no T inversion, artifacts, inferior lateral ST and T abnormality Impression: Abnormal EKG UA Pending MEDICAL MAKING DECISION: The patient is a 58-year-old female, presenting with acute pneumonia, acute hyperkalemia, acute troponin elevation. She was treated with Xopenex 1.25 mg and Atrovent 0.5 mg for wheezing, Tylenol and 650 mg p.o. for fever, vancomycin IV and cefepime IV for acute pneumonia, morphine 2 mg IV f or pain and Zofran 4 mg IV for nausea, aspirin 162 mg for acute troponin elevation, 2 amp D50 IV, 10 units of regular insulin IV, Kayexalate 30 g p.o., and albuterol 15 mg nebulizer for acute hyperkalemia The differential diagnoses considered include but are not limited to CHF, empyema, fluid overload, influenza, cystitis, pyelonephritis, medical noncompliance, dietary noncompliance, acute on chronic osteomyelitis of right foot, acute on chronic kidney disease, acute ACS, acute non-STEMI Critical Care: Time: 35 minutes excluding all billable procedures. Treatments/Evaluations: Close monitoring and treatment of unstable vital signs, cardiorespiratory, and neurologic status, while maintaining tight balance of fluid, respiratory, and cardiac interventions. Departure Diagnosis: Primary Impression: PNA (pneumonia) Additional Impressions: Hyperkalemia Elevated troponin Anemia Condition: Serious Comments I discussed the findings with the patient. I discussed the patient with Consuelo at 5:25 PM, who was made aware of the lab, the treatment, the patient condition. The patient is admitted to Tel Disclaimer: Inadvertent spelling and grammatical errors are likely due to EHR/dictation software use and do not reflect on the overall quality of patient care. Also, please note that the electronic time recorded on this note does not necessarily reflect the actual time of the patient encounter. BHAVNA GUZMAN MD August 09, 2018 15:12
[2018-08-09] MEDS ORDERED: ACETAMINOPHEN 325 MG TAB PO ONE (15:30)
[2018-08-09] MEDS ORDERED: APIX5TAB PO (16:17)
[2018-08-09] MEDS ORDERED: SVL800C PO (16:17)
[2018-08-09] MEDS ORDERED: METH500T8 PO (16:18)
[2018-08-09] MEDS ORDERED: FURO20TA3 PO (16:19)
[2018-08-09] MEDS ORDERED: GABA300C16 PO (16:19)
[2018-08-09] MEDS ORDERED: BUSP10TA2 PO (16:19)
[2018-08-09] MEDS ORDERED: AMLO5TAB4 PO (16:20)
[2018-08-09] MEDS ORDERED: DILT120C79 PO (16:20)
[2018-08-09] MEDS ORDERED: METO-448 PO (16:21)
[2018-08-09] MEDS ORDERED: PANT40TA4 PO (16:21)
[2018-08-09] MEDS ORDERED: IPRATROPIUM (NEB) 0.5 MG/2.5 ML AMP HHN ONE (17:00)
[2018-08-09] MEDS ORDERED: LEVALBUTEROL (NEB) 1.25 MG/0.5 ML AMP HHN ONE (17:00)
[2018-08-09] MEDS ORDERED: morphine 2 MG INJ IV STA (17:04)
[2018-08-09] MEDS ORDERED: ONDANSETRON 4 MG INJ IV STA (17:04)
[2018-08-09] MEDS ORDERED: ALBUTEROL 0.5% (NEB) 2.5 MG/0.5 ML AMP INH STA (17:07)
[2018-08-09] MEDS ORDERED: SODIUM POLYSTYRENE 15 GM KIT (POWDER + SORBITOL) PO STA (17:07)
[2018-08-09] MEDS ORDERED: INSULIN REGULAR, HUMAN 100 UNIT/1 ML 3ML VIAL IVP STA (17:07)
--- NOTE | 2018-08-09 17:17 | PN ---
DATE: 08/09/2018 HISTORY OF PRESENT ILLNESS: This is a patient that we have seen with diabetic right foot ulceration and end-stage renal disease. This patient comes in today with fever, chills and nausea. The patient is going to be sent immediately down to the ER. PAST MEDICAL HISTORY: Right diabetic foot ulceration. PHYSICAL EXAMINATION: Deferred. IMPRESSION: ER admit for possible sepsis. PLAN: We will follow this patient in-house once she is admitted through the ER. Dictated By: MELLO CALDERON MD RS/NTS Conf#: [id number] DID#: [id number] CC: BHAVNA GUZMAN MD;*EndCC* MTDD
[2018-08-09] MEDS ORDERED: DEXTROSE 50% 50 ML SYRINGE IV ONE (17:30)
[2018-08-09] MEDS ORDERED: DEXTROSE 50% 50 ML SYRINGE IV PRN (17:30)
[2018-08-09] MEDS ORDERED: VANCOMYCIN 1 GM (PMX) 250 ML IVPB ONE (17:30)
[2018-08-09] MEDS ORDERED: CEFEPIME 1GM/50 ML (PMX) 50 ML IVPB ONE (17:30)
[2018-08-09] MEDS ORDERED: ASPIRIN 81 MG TAB PO ONE (17:30)
[2018-08-09 22:56] VITALS: Ht 160 cm; Wt 102.3 kg
[2018-08-09] MEDS ORDERED: VANCOMYCIN IV PER PHARMACY XX SCH (23:30)
[2018-08-10] VITALS (22 sets, daily range): BP systolic 96–143; BP diastolic 55–70; PULSE 76–109; RESP 18–19
[2018-08-10] MEDS: GUAIFENESIN/CODEINE 5ML CUP PO PRN ×3 (00:24→19:35)
[2018-08-10] MEDS ORDERED: VANCOMYCIN 1 GM 250 ML IVPB SCH (00:30)
[2018-08-10] MEDS: HYDROCODONE/APAP (5/325) TAB PO PRN (00:42)
[2018-08-10] MEDS ORDERED: INSULIN ASPART [NOVOLOG] 3 ML PEN SC SCH ×3 (01:00→07:00)
[2018-08-10] MEDS ORDERED: ACCU-CHEK XX SCH (02:00)
[2018-08-10] MEDS: morphine 2 MG INJ IV PRN (04:28)
[2018-08-10] MEDS ORDERED: GLUCOSE GEL 15 GRAM TUBE PO PRN ×2 (05:30)
[2018-08-10] MEDS ORDERED: DEXTROSE 50% 50 ML SYRINGE IV PRN ×2 (05:30)
[2018-08-10] MEDS ORDERED: GLUCAGON 1 MG INJ IM PRN (05:30)
[2018-08-10] MEDS: PANTOPRAZOLE (EC) 40 MG TAB PO SCH (06:16)
[2018-08-10] MEDS: INSULIN ASPART [NOVOLOG] 3 ML PEN SC SCH ×4 (07:45→21:07)
[2018-08-10] MEDS: SEVELAMER CARBONATE 0.8 GM PKT PO SCH ×3 (08:23→17:33)
[2018-08-10] MEDS: METHOCARBAMOL 500 MG TAB PO SCH (08:24)
[2018-08-10] MEDS: CEFEPIME 1GM/50 ML (PMX) 50 ML IVPB SCH (08:24)
[2018-08-10] MEDS: BUSPIRONE 10 MG TAB PO SCH ×3 (08:24→20:16)
[2018-08-10] MEDS: GABAPENTIN 300 MG CAP PO SCH ×3 (08:24→20:16)
[2018-08-10] MEDS: METOPROLOL 25 MG TAB PO SCH ×2 (08:25→20:17)
[2018-08-10] MEDS: FUROSEMIDE 20 MG TAB PO SCH (08:25)
[2018-08-10] MEDS: APIXABAN 5 MG TABLET PO SCH ×2 (08:25→20:16)
[2018-08-10] MEDS: DILTIAZEM (CD) 120 MG CAP PO SCH (08:25)
[2018-08-10] MEDS: ACETAMINOPHEN 325 MG TAB PO PRN ×2 (11:45→20:26)
--- NOTE | 2018-08-10 12:09 | HP ---
Date/Time of Note Date/Time of Note DATE: 08/10/18 TIME: 12:04 Assessment/Plan VTE Prophylaxis SCD contraindicated: other Pharmacological prophylaxis: heparin Lines/Catheters IV [facility]atheter Type [facility]from [facility]): [facility] Urinary Cath still in place: No Assessment/Plan Assessment/Plan -PNA (pneumonia), continue broad-spectrum antibiotics, Dr. Lucas is asked to see patient in infection disease consultation. -Hyperkalemia -Elevated troponin, Dr. William is asked to see patient in cardiology consultation. -Anemia -Dialysis dependent end-stage renal disease. Dr. Garcia is following in nephrology consultation. -Diabetes mellitus type 2 -Peripheral vascular disease history of left lower extremity bypass surgery. -Right foot ulcer. Dr. Pineda is following and podiatry consultation Further recommendations based on clinical course. Plan of care discussed with Dr. Cordero. Result Diagram: 08/10/18 0529 08/10/18 0529 Results 24hrs Laboratory Tests Test 08/09/18 14:54 08/09/18 15:50 08/09/18 15:55 08/09/18 17:45 Bedside Glucose 111 103 White Blood Count 6.5 # Red Blood Count 3.20 #L Hemoglobin 11.1 #L Hematocrit 35.7 #L Mean Corpuscular Volume 111.6 H Mean Corpuscular 34.7 H Hemoglobin Mean Corpuscular 31.1 L Hemoglobin Concent Red Cell Distribution 16.8 H Width Platelet Count 149 # Mean Platelet Volume 10.9 H Immature Granulocytes % 0.300 Neutrophils % 83.4 H Lymphocytes % 5.5 L Monocytes % 9.5 Eosinophils % 1.1 Basophils % 0.2 Nucleated Red Blood 0.0 Cells % Immature Granulocytes # 0.020 Neutrophils # 5.5 Lymphocytes # 0.4 L Monocytes # 0.6 Eosinophils # 0.1 Basophils # 0.0 Nucleated Red Blood 0.0 Cells # Prothrombin Time 15.4 H Prothrombin Time Ratio 1.2 INR International 1.21 Normalized Ratio Activated 37.1 H Partial Thromboplast Time Sodium Level 141 Potassium Level 6.0 H Chloride Level 100 Carbon Dioxide Level 25 Anion Gap 16 H Blood Urea Nitrogen 66 H Creatinine 7.96 H Est Glomerular Filtrat 5 L Rate mL/min Glucose Level 100 Calcium Level 9.6 Total Bilirubin 0.1 L Direct Bilirubin 0.00 Indirect Bilirubin 0.1 Aspartate Amino 20 Transf (AST/SGOT) Alanine 10 L Aminotransferase (ALT/SG PT) Alkaline Phosphatase 116 Troponin I 0.230 *H Total Protein 8.0 Albumin 4.3 Globulin 3.70 H Albumin/Globulin Ratio 1.16 POC Venous Lactate 1.7 Test 08/09/18 18:23 08/09/18 19:12 08/09/18 19:17 08/10/18 01:00 Bedside Glucose 62 L 172 89 Lactic Acid Level 1.4 Test 08/10/18 05:29 08/10/18 07:26 08/10/18 11:16 White Blood Count 4.9 # Red Blood Count 3.22 L Hemoglobin 11.0 L Hematocrit 36.1 L Mean Corpuscular Volume 112.1 H Mean Corpuscular 34.2 H Hemoglobin Mean Corpuscular 30.5 L Hemoglobin Concent Red Cell Distribution 17.0 H Width Platelet Count 173 Mean Platelet Volume 11.4 H Immature Granulocytes % 0.200 Neutrophils % 75.1 Lymphocytes % 12.2 L Monocytes % 10.1 Eosinophils % 2.2 Basophils % 0.2 Nucleated Red Blood 0.0 Cells % Immature Granulocytes # 0.010 Neutrophils # 3.7 Lymphocytes # 0.6 L Monocytes # 0.5 Eosinophils # 0.1 Basophils # 0.0 Nucleated Red Blood 0.0 Cells # Sodium Level 141 Potassium Level 5.3 H Chloride Level 99 Carbon Dioxide Level 25 Anion Gap 17 H Blood Urea Nitrogen 68 H Creatinine 8.63 H Est Glomerular Filtrat 5 L Rate mL/min Glucose Level 111 Calcium Level 8.7 Bedside Glucose 103 139 HPI/ROS Admit Date/Time Admit Date/Time August 09, 2018 at 17:42 Hx of Present Illness The patient is a 58-year-old female with history of end-stage renal disease, on hemodialysis on Thursday and Thursday, peripheral vascular disease, hypertension, asthma, anxiety, peripheral neuropathy, and diabetic right foot ulcer. Patient was seen in amputation prevention center and complained of fever chills and nausea and patient was sent to the emergency room. Patient underwent chest x-ray which reveal left lower lobe infiltrate. Patient stated that she wa s hospitalized in June for pneumonia and had chest tube placement at that time with subsequent removal. Patient denies any cough, denies chest pain denies shortness of breath. Patient is admitted to telemetry floor for further evaluation and management. ROS 12 point review of system is negative except for that mentioned in HPI PMH/Family/Social Past Medical History Per HPI Medications Current Medications Dextrose (D50w Syringe) ONCE PRN IV DECREASED GLUCOSE; Start 08/09/18 at 17:30; Stop 08/10/18 at 17:29 Buspirone HCl (Buspar) 10 mg TID PO Last administered on 08/10/18 08:24; Admin Dose 10 MG; Start 08/10/18 at 09:00 Diltiazem HCl (Cardizem Cd) 120 mg DAILY PO Last administered on 08/10/18 08:25; Admin Dose 120 MG; Start 08/10/18 at 09:00 Furosemide (Lasix) 20 mg DAILY PO Last administered on 08/10/18 08:25; Admin Dose 20 MG; Start 08/10/18 at 09:00 Gabapentin (Neurontin) 300 mg TID PO Last administered on 08/10/18 08:24; Admin Dose 300 MG; Start 08/10/18 at 09:00 Methocarbamol (Robaxin) 500 mg DAILY PO Last administered on 08/10/18 08:24; Admin Dose 500 MG; Start 08/10/18 at 09:00 Metoprolol Tartrate (Lopressor) 25 mg BID PO Last administered on 08/10/18 08:25; Admin Dose 25 MG; Start 08/10/18 at 09:00 Pantoprazole (Protonix Tab) 40 mg AC BREAKFAST PO Last administered on 06:16; Admin Dose 40 MG; Start 08/10/18 at 07:00 Sevelamer Carbonate (Renvela) 1.6 gm WITH MEALS PO Last administered on 08/10/18at 11:44; Admin Dose 1.6 GM; Start 08/10/18 at 08:00 Apixaban (Eliquis) 5 mg BID PO Last administered on 08/10/18 08:25; Admin Dose 5 MG; Start 08/10/18 at 09:00 Vancomycin HCl (Vanco Iv Per Pharmacy) VANCOMYCIN PER PHARMACY PER PROTOCOL XX ; Start 08/09/18 at 23:30 Cefepime HCl 50 ml @ 100 mls/hr Q24H IVPB Last administered on 08/10/18 08:24; Admin Dose 100 MLS/HR; Start 08/10/18 at 09:00 Acetaminophen (Tylenol Tab) 650 mg Q6H PRN PO MILD PAIN(1-3)OR ELEVATED TEMP Last administered on 08/10/18at 11:45; Admin Dose 650 MG; Start 08/09/18 at 23:30 Acetaminophen/ Hydrocodone Bitart ([place] (5/325)) 1 tab Q6H PRN PO MODERATE PAIN LEVEL 4-6 Last administered on 08/10/18at 00:42; Admin Dose 1 TAB; Start 08/09/18 at 23:30 Morphine Sulfate (morphine) 2 mg Q4H PRN IV SEVERE PAIN LEVEL 7-10 Last administered on 08/10/18at 04:28; Admin Dose 2 MG; Start 08/09/18 at 23:30 Diagnostic Test (Pha) (Accu-Chek) 1 ea 02 XX ; Start 08/10/18 at 02:00 Guaifenesin/ Codeine Phosphate (Robitussin Ac Liquid Cup) 10 ml Q4H PRN PO COUGH Last administered on 08/10/18at 11:44; Admin Dose 10 ML; Start 08/09/18 at 23:30 Miscellaneous Information 1 ea NOTE XX ; Start 08/10/18 at 05:30 Glucose (Glutose) 15 gm Q15M PRN PO DECREASED GLUCOSE; Start 08/10/18 at 05:30 Glucose (Glutose) 22.5 gm Q15M PRN PO DECREASED GLUCOSE; Start 08/10/18 at 05:30 Dextrose (D50w Syringe) 25 ml Q15M PRN IV DECREASED GLUCOSE; Start 08/10/18 at 05:30 Dextrose (D50w Syringe) 50 ml Q15M PRN IV DECREASED GLUCOSE; Start 08/10/18 at 05:30 Glucagon (Glucagen) 1 mg Q15M PRN IM DECREASED GLUCOSE; Start 08/10/18 at 05:30 Glucose (Glutose) 15 gm Q15M PRN BUCCAL DECREASED GLUCOSE; Start 08/10/18 at 05:30 Insulin Aspart (Novolog Insulin Pen) NOVOLOG *MILD* ALGORI... AC MEALS AND BEDTIME SC ; Start 08/10/18 at 08:00 Coded Allergies: No Known Allergies (Verified Allergy, Unknown, 08/09/18) Past Surgical History Past Surgical Hx: other (S/p orthopedic procedures to RUE with metal prosthetic after bone Fx, status post left total lower extremity angiogram status post bypass of the left lower extremity, status post right toe amputation) Family History Significant Family History: no pertinent family hx Social History Alcohol Use: none Smoking Status: Former smoker Drug Use: none Exam/Review of Systems Vital Signs Vitals Vital Signs Date Temp Pulse Resp B/P (MAP) Pulse Ox O2 O2 Flow FiO2 Time Delivery Rate 08/10/18 101.0 11:45 08/10/18 91 19 127/60 91 11:41 (82) 08/09/18 Nasal 2.0 23:00 Cannula 08/09/18 21 17:51 Intake and Output 08/09/18 08/09/18 08/10/18 1515:00 23:00 07:00 IntakeIntake Total 300 ml BalanceBalance 300 ml Exam Constitutional: alert, oriented Neck: supple Respiratory: diminished breath sounds Cardiovascular: regular rate and rhythm Gastrointestinal: soft, non-tender Musculoskeletal: nl extremities to inspection Extremities: normal pulses, other (Right foot ulcer) Neurological: nl mental status ANTHONY DUPREE August 10, 2018 12:09
--- NOTE | 2018-08-10 16:19 | CONS ---
Consultation Date/Type/Reason Admit Date/Time August 09, 2018 at 17:42 Initial Consult Date Date/Time of Note DATE: 08/10/18 TIME: 16:19 Exam/Review of Systems Exam Vitals Vital Signs Date Temp Pulse Resp B/P (MAP) Pulse Ox O2 O2 Flow FiO2 Time Delivery Rate 08/10/18 79 16:01 08/10/18 100.2 18 105/55 92 15:09 (72) 08/10/18 Nasal 2.0 07:40 Cannula 08/09/18 21 17:51 Intake and Output 08/09/18 08/09/18 08/10/18 1515:00 23:00 07:00 IntakeIntake Total 300 ml BalanceBalance 300 ml Results Result Diagram: 08/10/18 0529 08/10/18 0529 Results 24hrs Laboratory Tests Test 08/09/18 17:45 08/09/18 18:23 08/09/18 19:12 08/09/18 19:17 Bedside Glucose 103 62 L 172 Lactic Acid Level 1.4 Test 08/10/18 01:00 08/10/18 05:29 08/10/18 07:26 08/10/18 11:16 Bedside Glucose 89 103 139 White Blood Count 4.9 # Red Blood Count 3.22 L Hemoglobin 11.0 L Hematocrit 36.1 L Mean Corpuscular Volume 112.1 H Mean Corpuscular 34.2 H Hemoglobin Mean Corpuscular 30.5 L Hemoglobin Concent Red Cell Distribution 17.0 H Width Platelet Count 173 Mean Platelet Volume 11.4 H Immature Granulocytes % 0.200 Neutrophils % 75.1 Lymphocytes % 12.2 L Monocytes % 10.1 Eosinophils % 2.2 Basophils % 0.2 Nucleated Red Blood 0.0 Cells % Immature Granulocytes # 0.010 Neutrophils # 3.7 Lymphocytes # 0.6 L Monocytes # 0.5 Eosinophils # 0.1 Basophils # 0.0 Nucleated Red Blood 0.0 Cells # Sodium Level 141 Potassium Level 5.3 H Chloride Level 99 Carbon Dioxide Level 25 Anion Gap 17 H Blood Urea Nitrogen 68 H Creatinine 8.63 H Est Glomerular Filtrat 5 L Rate mL/min Glucose Level 111 Calcium Level 8.7 Medications Medication Current Medications Dextrose (D50w Syringe) ONCE PRN IV DECREASED GLUCOSE; Start 08/09/18 at 17:30; Stop 08/10/18 at 17:29 Buspirone HCl (Buspar) 10 mg TID PO Last administered on 08/10/18 12:24; Admin Dose 10 MG; Start 08/10/18 at 09:00 Diltiazem HCl (Cardizem Cd) 120 mg DAILY PO Last administered on 08/10/18 08:25; Admin Dose 120 MG; Start 08/10/18 at 09:00 Furosemide (Lasix) 20 mg DAILY PO Last administered on 08/10/18 08:25; Admin Dose 20 MG; Start 08/10/18 at 09:00 Gabapentin (Neurontin) 300 mg TID PO Last administered on 08/10/18 12:24; Admin Dose 300 MG; Start 08/10/18 at 09:00 Methocarbamol (Robaxin) 500 mg DAILY PO Last administered on 08/10/18 08:24; Admin Dose 500 MG; Start 08/10/18 at 09:00 Metoprolol Tartrate (Lopressor) 25 mg BID PO Last administered on 08/10/18 08:25; Admin Dose 25 MG; Start 08/10/18 at 09:00 Pantoprazole (Protonix Tab) 40 mg AC BREAKFAST PO Last administered on 08/10/18 06:16; Admin Dose 40 MG; Start 08/10/18 at 07:00 Sevelamer Carbonate (Renvela) 1.6 gm WITH MEALS PO Last administered on 08/10/18 11:44; Admin Dose 1.6 GM; Start 08/10/18 at 08:00 Apixaban (Eliquis) 5 mg BID PO Last administered on 08/10/18 08:25; Admin Dose 5 MG; Start 08/10/18 at 09:00 Vancomycin HCl (Vanco Iv Per Pharmacy) VANCOMYCIN PER PHARMACY PER PROTOCOL XX ; Start 08/09/18 at 23:30 Cefepime HCl 50 ml @ 100 mls/hr Q24H IVPB Last administered on 08/10/18 08:24; Admin Dose 100 MLS/HR; Start 08/10/18 at 09:00 Acetaminophen (Tylenol Tab) 650 mg Q6H PRN PO MILD PAIN(1-3)OR ELEVATED TEMP Last administered on 08/10/18 11:45; Admin Dose 650 MG; Start 08/09/18 at 23:30 Acetaminophen/ Hydrocodone Bitart ([place] (5/325)) 1 tab Q6H PRN PO MODERATE PAIN LEVEL 4-6 Last administered on 08/10/18at 00:42; Admin Dose 1 TAB; Start 08/09/18 at 23:30 Morphine Sulfate (morphine) 2 mg Q4H PRN IV SEVERE PAIN LEVEL 7-10 Last administered on 08/10/18at 04:28; Admin Dose 2 MG; Start 08/09/18 at 23:30 Diagnostic Test (Pha) (Accu-Chek) 1 ea 02 XX ; Start 08/10/18 at 02:00 Guaifenesin/ Codeine Phosphate (Robitussin Ac Liquid Cup) 10 ml Q4H PRN PO COUGH Last administered on 08/10/18at 11:44; Admin Dose 10 ML; Start 08/09/18 at 23:30 Miscellaneous Information 1 ea NOTE XX ; Start 08/10/18 at 05:30 Glucose (Glutose) 15 gm Q15M PRN PO DECREASED GLUCOSE; Start 08/10/18 at 05:30 Glucose (Glutose) 22.5 gm Q15M PRN PO DECREASED GLUCOSE; Start 08/10/18 at 05:30 Dextrose (D50w Syringe) 25 ml Q15M PRN IV DECREASED GLUCOSE; Start 08/10/18 at 05:30 Dextrose (D50w Syringe) 50 ml Q15M PRN IV DECREASED GLUCOSE; Start 08/10/18 at 05:30 Glucagon (Glucagen) 1 mg Q15M PRN IM DECREASED GLUCOSE; Start 08/10/18 at 05:30 Glucose (Glutose) 15 gm Q15M PRN BUCCAL DECREASED GLUCOSE; Start 08/10/18 at 05:30 Insulin Aspart (Novolog Insulin Pen) NOVOLOG *MILD* ALGORI... AC MEALS AND BEDTIME SC ; Start 08/10/18 at 08:00 BONITA RUBIO MD August 10, 2018 16:19
--- NOTE | 2018-08-10 16:28 | CONS ---
Assessment/Plan Assessment/Plan Hospital Course (Demo Recall) 1. HCAP; possible fluid overload 2. ESRD on HD Hx: - Non-healing diabetic R foot ulceration with infection at site of recent debridement; cultures grew MSSA and Enterococcus (ESR 93) - S/p excisional sharp debridement of the right first toe involving skin and subcutaneous tissue on 06/11/2017 - Evidence of osteomyelitis at the remnant of the first distal phalanx per MRI R foot 06/24/2017 - DM with hypoglycemic episode - Hgb A1c 7.2% - Diabetic neuropathy - H/o diabetic foot infections/OM of b/l feet, s/p amputation of R two toes - ESRD on HD - H/o central stenosis with apparent recent re-vascularization - S/p placement of L IJ HD catheter 06/20/2017 - PVD - H/o LLE bypass - CHF and CAD - Anemia of chronic kidney disease - Morbid obesity - BMI 44.4 - dysphagia, Group A pharyngitis screen was negative - H/o mildly dilated esophagus on CT (11/2016) and multiple distal erosive lesions in the distal esophagus per EGD (11/27/2016; path negative) - 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 Pt's sinuses are non-TTP. On a trial of renally dosed oseltamivir (06/30/2017-) recommendations: - Vanco/cefepime - add zithromax - procalcitonin - serial cxr - lactic acid serially - influenza screen (albeit season has recently ended) - f/u cxs - will continue to follow closely with you. Consultation Date/Type/Reason Admit Date/Time August 09, 2018 at 17:42 cct 2h Date of Consultation: August 10, 2018 Type of Consult id Reason for Consultation [email or web address] Requesting Provider: KIRSTIN SPANN MD Date/Time of Note DATE: 08/10/18 TIME: 16:20 Hx of Present Illness Patient is a 56-year-old female with diabetes mellitus type 2, hemodialysis dependent end-stage renal disease, hypertension, and peripheral vascular disease. In June of 2017 she was admitted with c/o right first toe infecti on.She underwent debridement and completed a 6 week course of IV Vanco. She completed a course of amp-sulbactam while hospitalized at that time as well. She was doing reasonably well until she was c/o fever, chills in amputation prevention center today. She was noted to have a LLL infiltrate and has been admitted. She is currently receiving vanco/cefepime. Constitutional: no complaints, improved Eyes: no complaints ENT: no complaints Respiratory: cough, pleuritic pain, shortness of breath, sputum, wheezing Cardiovascular: no complaints Gastrointestinal: no complaints Genitourinary: no complaints Musculoskeletal: no complaints Skin: no complaints Neurologic: no complaints Endocrine: no complaints Lymphatic: no complaints Psychological: no complaints, nl mood/affect Past Medical History Home Meds Reported Medications Metoprolol Tartrate* (Lopressor*) 25 Mg Tab, 25 MG PO BID, #60 TAB 08/09/18 Pantoprazole* (Pantoprazole*) 40 Mg Tablet.dr, 40 MG PO AC BREAKFAST, TAB 08/09/18 Diltiazem Hcl* (Diltiazem XT) 120 Mg Capsule.sa, 120 MG PO DAILY, #30 CAP 08/09/18 Amlodipine Besylate* (Norvasc*) 5 Mg Tablet, 5 MG PO DAILY, TAB 08/09/18 Buspirone Hcl* (Buspirone Hcl*) 10 Mg Tab, 10 MG PO TID, TAB 08/09/18 Furosemide* (Furosemide*) 20 Mg Tablet, 20 MG PO DAILY, #60 TAB 08/09/18 Gabapentin* (Gabapentin*) 300 Mg Capsule, 300 MG PO TID, #90 CAP 08/09/18 Methocarbamol* (Methocarbamol*) 500 Mg Tablet, 500 MG PO DAILY, TAB 08/09/18 Sevelamer Hcl* (Renagel*) 800 Mg Tablet, 1600 MG PO WITH MEALS, TAB 08/09/18 Apixaban* (Eliquis*) 5 Mg Tablet, 5 MG PO BID, TAB 08/09/18 Discontinued Reported Medications Insulin Aspart* (Novolog Insulin Pen*) 100 Unit/Ml Soln, 0 SC .SLIDING SCALE AC, EA 06/17/17 Insulin Glargine* (Lantus*) 100 Unit/Ml Soln, 40 UNIT SC QHS, #1 VIAL 06/17/17 Discontinued Scripts Oseltamivir Phosphate* (Tamiflu*) 30 Mg Capsule, 30 MG PO DAILY for 2 Days, CAP Prov:VIOLET RUDOLPH 07/02/17 Menthol/Methyl Salicylate (Analgesic [place]) 28 Gm Oint...g., 1 APPLIC TOP TID PRN for PAIN, #1 Prov:VIOLET RUDOLPH 07/02/17 Lactulose* (Lactulose*) 20 Gm/30 Ml Solution, 30 GM PO BID PRN for CONSTIPATION for 30 Days Prov:VIOLET RUDOLPH 07/02/17 Hydrocodone Bit-Acetaminophen (Hydrocodone Bit-APAP) 5-325MG Tablet, 1 TAB PO Q6H PRN for MODERATE PAIN LEVEL 4-6, #20 TAB Prov:VIOLET RUDOLPH 07/02/17 Duloxetine Hcl* (Cymbalta*) 30 Mg Capsule.dr, 30 MG PO BID for 30 Days Prov:VIOLET RUDOLPH 07/02/17 Docusate Sodium (Dok) 100 Mg Capsule, 100 MG PO Q12H PRN for CONSTIPATION for 30 Days, CAP Prov:VIOLET RUDOLPH 07/02/17 Buspirone Hcl* (Buspar*) 5 Mg Tab, 5 MG PO BID for 30 Days, TAB Prov:VIOLET RUDOLPH 07/02/17 Albuterol Sulfate* (Ventolin HFA*) 18 Gm Hfa.aer.ad, 2 PUFF INHALATION Q6H RESP THERAPY, #1 Prov:VIOLET RUDOLPH 07/02/17 Alprazolam* (Alprazolam*) 0.25 Mg Tablet, 0.25 MG PO Q6H PRN for ANXIETY, #30 TAB Prov:ANTHONY DUPREE 02/04/17 Apixaban* (Eliquis*) 5 Mg Tablet, 2.5 MG PO BID for 30 Days, TAB Prov:ANTHONY DUPREE 02/04/17 Hydrocodone/Acetaminophen (Hydrocodon-Acetaminoph 7.5-325) 1 Each Tablet, 1 TAB PO Q6H PRN for pain, #30 TAB Prov:ANTHONY DUPREE 02/04/17 Albuterol Sulfate* (Ventolin HFA*) 18 Gm Hfa.aer.ad, 2 PUFF INHALATION Q4H for 30 Days, #1 INHALER Prov:02/04/17 Linagliptin (TRADJENTA) 5 Mg Tablet, 5 MG PO DAILY for 30 Days, TAB Prov:02/04/17 Pantoprazole* (Pantoprazole*) 40 Mg Tablet.dr, 40 MG PO AC BREAKFAST for 30 Days, TAB Prov:02/04/17 Sevelamer Carbonate* (Renvela*) 800 Mg Tablet, 0.8 GM PO WITH MEALS for 30 Days, TAB Prov:02/04/17 Multivit/Ca Carb/B Cmplx/Fa* (Addie-Mikayla*) 1 Tab Tab, 1 TAB PO DAILY for 30 Days, TAB Prov:02/04/17 Folic Acid* (Folic Acid*) 1 Mg Tablet, 1 MG PO DAILY for 30 Days, TAB Prov:02/04/17 Clonidine Hcl* (Clonidine Hcl*) 0.2 Mg Tablet, 0.2 MG PO TID PRN for HTN for 30 Days, TAB Prov:02/04/17 Clopidogrel Bisulfate* (Clopidogrel Bisulfate*) 75 Mg Tablet, 75 MG PO DAILY, #30 TAB Prov:02/04/17 Carvedilol* (Carvedilol*) 6.25 Mg Tablet, 6.25 MG PO DAILY, #60 TAB Prov:02/04/17 Gabapentin* (Gabapentin*) 300 Mg Capsule, 300 MG PO BID, #60 CAP Prov:02/04/17 Atorvastatin* (Atorvastatin*) 40 Mg Tablet, 40 MG PO QHS, #30 TAB Prov:02/04/17 Amlodipine Besylate* (Amlodipine Besylate*) 10 Mg Tablet, 10 MG PO DAILY, #30 TAB Prov:02/04/17 Medications Current Medications Dextrose (D50w Syringe) ONCE PRN IV DECREASED GLUCOSE; Start 08/09/18 at 17:30; Stop 08/10/18 at 17:29 Buspirone HCl (Buspar) 10 mg TID PO Last administered on 08/10/18 12:24; Admin Dose 10 MG; Start 08/10/18 at 09:00 Diltiazem HCl (Cardizem Cd) 120 mg DAILY PO Last administered on 08/10/18 08:25; Admin Dose 120 MG; Start 08/10/18 at 09:00 Furosemide (Lasix) 20 mg DAILY PO Last administered on 08/10/18 08:25; Admin Dose 20 MG; Start 08/10/18 at 09:00 Gabapentin (Neurontin) 300 mg TID PO Last administered on 08/10/18 12:24; Admin Dose 300 MG; Start 08/10/18 at 09:00 Methocarbamol (Robaxin) 500 mg DAILY PO Last administered on 08/10/18 08:24; Admin Dose 500 MG; Start 08/10/18 at 09:00 Metoprolol Tartrate (Lopressor) 25 mg BID PO Last administered on 08/10/18 08:25; Admin Dose 25 MG; Start 08/10/18 at 09:00 Pantoprazole (Protonix Tab) 40 mg AC BREAKFAST PO Last administered on 08/10/18 06:16; Admin Dose 40 MG; Start 08/10/18 at 07:00 Sevelamer Carbonate (Renvela) 1.6 gm WITH MEALS PO Last administered on 08/10/18 11:44; Admin Dose 1.6 GM; Start 08/10/18 at 08:00 Apixaban (Eliquis) 5 mg BID PO Last administered on 08/10/18 08:25; Admin Dose 5 MG; Start 08/10/18 at 09:00 Vancomycin HCl (Vanco Iv Per Pharmacy) VANCOMYCIN PER PHARMACY PER PROTOCOL XX ; Start 08/09/18 at 23:30 Cefepime HCl 50 ml @ 100 mls/hr Q24H IVPB Last administered on 08/10/18 08:24; Admin Dose 100 MLS/HR; Start 08/10/18 at 09:00 Acetaminophen (Tylenol Tab) 650 mg Q6H PRN PO MILD PAIN(1-3)OR ELEVATED TEMP Last administered on 08/10/18 11:45; Admin Dose 650 MG; Start 08/09/18 at 23:30 Acetaminophen/ Hydrocodone Bitart ([place] (5/325)) 1 tab Q6H PRN PO MODERATE PAIN LEVEL 4-6 Last administered on 08/10/18at 00:42; Admin Dose 1 TAB; Start 08/09/18 at 23:30 Morphine Sulfate (morphine) 2 mg Q4H PRN IV SEVERE PAIN LEVEL 7-10 Last administered on 08/10/18at 04:28; Admin Dose 2 MG; Start 08/09/18 at 23:30 Diagnostic Test (Pha) (Accu-Chek) 1 ea 02 XX ; Start 08/10/18 at 02:00 Guaifenesin/ Codeine Phosphate (Robitussin Ac Liquid Cup) 10 ml Q4H PRN PO COUGH Last administered on 08/10/18at 11:44; Admin Dose 10 ML; Start 08/09/18 at 23 :30 Miscellaneous Information 1 ea NOTE XX ; Start 08/10/18 at 05:30 Glucose (Glutose) 15 gm Q15M PRN PO DECREASED GLUCOSE; Start 08/10/18 at 05:30 Glucose (Glutose) 22.5 gm Q15M PRN PO DECREASED GLUCOSE; Start 08/10/18 at 05:30 Dextrose (D50w Syringe) 25 ml Q15M PRN IV DECREASED GLUCOSE; Start 08/10/18 at 05:30 Dextrose (D50w Syringe) 50 ml Q15M PRN IV DECREASED GLUCOSE; Start 08/10/18 at 05:30 Glucagon (Glucagen) 1 mg Q15M PRN IM DECREASED GLUCOSE; Start 08/10/18 at 05:30 Glucose (Glutose) 15 gm Q15M PRN BUCCAL DECREASED GLUCOSE; Start 08/10/18 at 05:30 Insulin Aspart (Novolog Insulin Pen) NOVOLOG *MILD* ALGORI... AC MEALS AND BEDTIME SC ; Start 08/10/18 at 08:00 Allergies: Coded Allergies: No Known Allergies (Verified Allergy, Unknown, 08/09/18) Past Surgical History Past Surgical Hx: other Social History Smoking Status: Former smoker Exam/Review of Systems Exam Vitals Vital Signs Date Temp Pulse Resp B/P (MAP) Pulse Ox O2 O2 Flow FiO2 Time Delivery Rate 08/10/18 79 16:01 08/10/18 100.2 18 105/55 92 15:09 (72) 08/10/18 Nasal 2.0 07:40 Cannula 08/09/18 21 17:51 Intake and Output 08/09/18 08/09/18 08/10/18 1515:00 23:00 07:00 IntakeIntake Total 300 ml BalanceBalance 300 ml Constitutional: alert, oriented, well developed Psych: no complaints, nl mood/affect Head: normocephalic, atraumatic Eyes: nl conjunctiva, EOMI, nl lids, nl sclera, PERRL ENMT: nl external ears & nose, nl lips & teeth, nl nasal mucosa & septum Neck: supple, non-tender Respiratory: diminished breath sounds Cardiovascular: regular rate and rhythm Gastrointestinal: soft Neurological: NIGHT TIME BABYSITTER II-XII intact Results Result Diagram: 08/10/18 0529 08/10/18 05 Results 24hrs Laboratory Tests Test 08/09/18 17:45 08/09/18 18:23 08/09/18 19:12 08/09/18 19:17 Bedside Glucose 103 62 L 172 Lactic Acid Level 1.4 Test 08/10/18 01:00 08/10/18 05:29 08/10/18 07:26 08/10/18 11:16 Bedside Glucose 89 103 139 White Blood Count 4.9 # Red Blood Count 3.22 L Hemoglobin 11.0 L Hematocrit 36.1 L Mean Corpuscular Volume 112.1 H Mean Corpuscular 34.2 H Hemoglobin Mean Corpuscular 30.5 L Hemoglobin Concent Red Cell Distribution 17.0 H Width Platelet Count 173 Mean Platelet Volume 11.4 H Immature Granulocytes % 0.200 Neutrophils % 75.1 Lymphocytes % 12.2 L Monocytes % 10.1 Eosinophils % 2.2 Basophils % 0.2 Nucleated Red Blood 0.0 Cells % Immature Granulocytes # 0.010 Neutrophils # 3.7 Lymphocytes # 0.6 L Monocytes # 0.5 Eosinophils # 0.1 Basophils # 0.0 Nucleated Red Blood 0.0 Cells # Sodium Level 141 Potassium Level 5.3 H Chloride Level 99 Carbon Dioxide Level 25 Anion Gap 17 H Blood Urea Nitrogen 68 H Creatinine 8.63 H Est Glomerular Filtrat 5 L Rate mL/min Glucose Level 111 Calcium Level 8.7 Medications Medication Current Medications Dextrose (D50w Syringe) ONCE PRN IV DECREASED GLUCOSE; Start 08/09/18 at 17:30; Stop 08/10/18 at 17:29 Buspirone HCl (Buspar) 10 mg TID PO Last administered on 08/10/18 12:24; Admin Dose 10 MG; Start 08/10/18 at 09:00 Diltiazem HCl (Cardizem Cd) 120 mg DAILY PO Last administered on 08/10/18 08:25; Admin Dose 120 MG; Start 08/10/18 at 09:00 Furosemide (Lasix) 20 mg DAILY PO Last administered on 08/10/18 08:25; Admin Dose 20 MG; Start 08/10/18 at 09:00 Gabapentin (Neurontin) 300 mg TID PO Last administered on 08/10/18 12:24; Admin Dose 300 MG; Start 08/10/18 at 09:00 Methocarbamol (Robaxin) 500 mg DAILY PO Last administered on 08/10/18 08:24; Admin Dose 500 MG; Start 08/10/18 at 09:00 Metoprolol Tartrate (Lopressor) 25 mg BID PO Last administered on 08/10/18 08:25; Admin Dose 25 MG; Start 08/10/18 at 09:00 Pantoprazole (Protonix Tab) 40 mg AC BREAKFAST PO Last administered on 08/10/18 06:16; Admin Dose 40 MG; Start 08/10/18 at 07:00 Sevelamer Carbonate (Renvela) 1.6 gm WITH MEALS PO Last administered on 08/10/18 11:44; Admin Dose 1.6 GM; Start 08/10/18 at 08:00 Apixaban (Eliquis) 5 mg BID PO Last administered on 08/10/18 08:25; Admin Dose 5 MG; Start 08/10/18 at 09:00 Vancomycin HCl (Vanco Iv Per Pharmacy) VANCOMYCIN PER PHARMACY PER PROTOCOL XX ; Start 08/09/18 at 23:30 Cefepime HCl 50 ml @ 100 mls/hr Q24H IVPB Last administered on 08/10/18 08:24; Admin Dose 100 MLS/HR; Start 08/10/18 at 09:00 Acetaminophen (Tylenol Tab) 650 mg Q6H PRN PO MILD PAIN(1-3)OR ELEVATED TEMP Last administered on 08/10/18 11:45; Admin Dose 650 MG; Start 08/09/18 at 23:30 Acetaminophen/ Hydrocodone Bitart ([place] (5/325)) 1 tab Q6H PRN PO MODERATE PAIN LEVEL 4-6 Last administered on 08/10/18at 00:42; Admin Dose 1 TAB; Start 08/09/18 at 23:30 Morphine Sulfate (morphine) 2 mg Q4H PRN IV SEVERE PAIN LEVEL 7-10 Last administered on 08/10/18at 04:28; Admin Dose 2 MG; Start 08/09/18 at 23:30 Diagnostic Test (Pha) (Accu-Chek) 1 ea 02 XX ; Start 08/10/18 at 02:00 Guaifenesin/ Codeine Phosphate (Robitussin Ac Liquid Cup) 10 ml Q4H PRN PO COUGH Last administered on 08/10/18at 11:44; Admin Dose 10 ML; Start 08/09/18 at 23:30 Miscellaneous Information 1 ea NOTE XX ; Start 08/10/18 at 05:30 Glucose (Glutose) 15 gm Q15M PRN PO DECREASED GLUCOSE; Start 08/10/18 at 05:30 Glucose (Glutose) 22.5 gm Q15M PRN PO DECREASED GLUCOSE; Start 08/10/18 at 05:30 Dextrose (D50w Syringe) 25 ml Q15M PRN IV DECREASED GLUCOSE; Start 08/10/18 at 05:30 Dextrose (D50w Syringe) 50 ml Q15M PRN IV DECREASED GLUCOSE; Start 08/10/18 at 05:30 Glucagon (Glucagen) 1 mg Q15M PRN IM DECREASED GLUCOSE; Start 08/10/18 at 05:30 Glucose (Glutose) 15 gm Q15M PRN BUCCAL DECREASED GLUCOSE; Start 08/10/18 at 05:30 Insulin Aspart (Novolog Insulin Pen) NOVOLOG *MILD* ALGORI... AC MEALS AND BEDTIME SC ; Start 08/10/18 at 08:00 BONITA RUBIO MD August 10, 2018 16:28
[2018-08-11] VITALS (13 sets, daily range): BP systolic 98–122; BP diastolic 53–72; PULSE 51–82; RESP 18–19
[2018-08-11] MEDS: HEPARIN 1000 UNITS/ML 10 ML INJ CATHETER SCH (00:41)
[2018-08-11] MEDS: ACCU-CHEK XX SCH (01:56)
[2018-08-11] MEDS: morphine 2 MG INJ IV PRN (05:01)
[2018-08-11] MEDS: GUAIFENESIN/CODEINE 5ML CUP PO PRN ×3 (05:01→23:06)
[2018-08-11] MEDS: ACETAMINOPHEN 325 MG TAB PO PRN ×2 (05:28→09:35)
[2018-08-11] MEDS: PANTOPRAZOLE (EC) 40 MG TAB PO SCH (06:19)
[2018-08-11] MEDS: INSULIN ASPART [NOVOLOG] 3 ML PEN SC SCH ×7 (07:49→21:00)
[2018-08-11] MEDS: INSULIN GLARGINE [LANTus] (100 UNITS/ML) SYG SC SCH ×2 (07:51→11:50)
[2018-08-11] MEDS: SEVELAMER CARBONATE 0.8 GM PKT PO SCH ×3 (08:04→18:08)
[2018-08-11] MEDS: GABAPENTIN 300 MG CAP PO SCH ×3 (08:05→21:27)
[2018-08-11] MEDS: METHOCARBAMOL 500 MG TAB PO SCH (08:05)
[2018-08-11] MEDS: BUSPIRONE 10 MG TAB PO SCH ×3 (08:05→21:27)
[2018-08-11] MEDS: METOPROLOL 25 MG TAB PO SCH ×2 (08:05→21:00)
[2018-08-11] MEDS: APIXABAN 5 MG TABLET PO SCH ×2 (08:06→21:27)
[2018-08-11] MEDS: DILTIAZEM (CD) 120 MG CAP PO SCH (08:06)
[2018-08-11] MEDS: CEFEPIME 1GM/50 ML (PMX) 50 ML IVPB SCH (08:07)
[2018-08-11] MEDS ORDERED: AZITHROMYCIN 500 MG TAB PO ONE (09:00)
[2018-08-11] MEDS: FUROSEMIDE 20 MG TAB PO SCH (09:35)
--- NOTE | 2018-08-11 13:19 | QN ---
Documentation Comment pt seen and examiend DARELL JAMES MD August 11, 2018 13:19
--- NOTE | 2018-08-11 13:19 | PN ---
Date/Time of Note Date/Time of Note DATE: 08/11/18 TIME: 13:15 Assessment/Plan VTE Prophylaxis Risk score (from Ns)>0 risk: 5 SCD applied (from Ns): Yes Pharmacological prophylaxis: heparin Lines/Catheters [facility]from [facility] Urinary Cath still in place: No Assessment/Plan Hospital Course Patient is status post hemodialysis last night, awake alert, multiple complaints of generalized weakness and anxiety, remains afebrile. Assessment/Plan -PNA (pneumonia), continue broad-spectrum antibiotics, Dr. Lucas is following in infection disease consultation. -Hyperkalemia -Elevated troponin, Dr. William is following in cardiology consultation. -Anemia -Dialysis dependent end-stage renal disease. Dr. Spicer is following in nephrology consultation. -Diabetes mellitus type 2 with hemoglobin A1c of 6.5, continue Lantus and NovoLog -Peripheral vascular disease history of left lower extremity bypass surgery. -Right foot ulcer. Dr. Pineda is following and podiatry consultation. Further recommendations based on clinical course. Plan of care discussed with Dr. Cordero. Result Diagram: 08/11/1821 08/11/18 0521 Results 24hrs Laboratory Tests Test 08/10/18 17:15 08/10/18 20:15 08/11/18 01:41 08/11/18 05:21 Bedside Glucose 153 174 147 White Blood Count 4.3 L Red Blood Count 2.87 L Hemoglobin 9.7 L Hematocrit 31.6 L Mean Corpuscular Volume 110.1 H Mean Corpuscular 33.8 H Hemoglobin Mean Corpuscular 30.7 L Hemoglobin Concent Red Cell Distribution 16.8 H Width Platelet Count 168 Mean Platelet Volume 10.8 H Immature Granulocytes % 0.200 Neutrophils % 71.3 Lymphocytes % 11.3 L Monocytes % 15.3 H Eosinophils % 1.4 Basophils % 0.5 Nucleated Red Blood 0.0 Cells % Immature Granulocytes # 0.010 Neutrophils # 3.0 Lymphocytes # 0.5 L Monocytes # 0.7 Eosinophils # 0.1 Basophils # 0.0 Nucleated Red Blood 0.0 Cells # Sodium Level 140 Potassium Level 4.9 Chloride Level 100 Carbon Dioxide Level 26 Anion Gap 14 H Blood Urea Nitrogen 48 #H Creatinine 6.76 H Est Glomerular Filtrat 6 L Rate mL/min Glucose Level 153 Hemoglobin A1c 6.5 H Calcium Level 8.6 Test 08/11/18 07:35 08/11/18 11:42 Bedside Glucose 178 385 H Exam/Review of Systems Exam Vitals Vital Signs Date Temp Pulse Resp B/P (MAP) Pulse Ox O2 O2 Flow FiO2 Time Delivery Rate 08/11/18 66 12:06 08/11/18 98.2 19 110/59 97 11:31 (76) 08/11/18 Nasal 2.0 07:30 Cannula 08/09/18 21 17:51 Intake and Output 08/10/18 08/10/18 08/11/18 1515:00 23:00 07:00 IntakeIntake Total 850 ml 600 ml OutputOutput Total 3400 ml BalanceBalance 850 ml -2800 ml Exam Constitutional: alert, oriented Respiratory: diminished breath sounds Cardiovascular: regular rate and rhythm Gastrointestinal: soft, non-tender Musculoskeletal: nl extremities to inspection Extremities: normal pulses, other (Right foot ulcer) Neurological: nl mental status Left chest hemodialysis catheter Results Results 24hrs Laboratory Tests Test 08/10/18 17:15 08/10/18 20:15 08/11/18 01:41 08/11/18 05:21 Bedside Glucose 153 174 147 White Blood Count 4.3 L Red Blood Count 2.87 L Hemoglobin 9.7 L Hematocrit 31.6 L Mean Corpuscular Volume 110.1 H Mean Corpuscular 33.8 H Hemoglobin Mean Corpuscular 30.7 L Hemoglobin Concent Red Cell Distribution 16.8 H Width Platelet Count 168 Mean Platelet Volume 10.8 H Immature Granulocytes % 0.200 Neutrophils % 71.3 Lymphocytes % 11.3 L Monocytes % 15.3 H Eosinophils % 1.4 Basophils % 0.5 Nucleated Red Blood 0.0 Cells % Immature Granulocytes # 0.010 Neutrophils # 3.0 Lymphocytes # 0.5 L Monocytes # 0.7 Eosinophils # 0.1 Basophils # 0.0 Nucleated Red Blood 0.0 Cells # Sodium Level 140 Potassium Level 4.9 Chloride Level 100 Carbon Dioxide Level 26 Anion Gap 14 H Blood Urea Nitrogen 48 #H Creatinine 6.76 H Est Glomerular Filtrat 6 L Rate mL/min Glucose Level 153 Hemoglobin A1c 6.5 H Calcium Level 8.6 Test 08/11/18 07:35 08/11/18 11:42 Bedside Glucose 178 385 H Medications Medication Current Medications Buspirone HCl (Buspar) 10 mg TID PO Last administered on 08/11/18 08:05; Admin Dose 10 MG; Start 08/10/18 at 09:00 Diltiazem HCl (Cardizem Cd) 120 mg DAILY PO Last administered on 08/11/18 08:06; Admin Dose 120 MG; Start 08/10/18 at 09:00 Furosemide (Lasix) 20 mg DAILY PO Last administered on 08/11/18 09:35; Admin Dose 20 MG; Start 08/10/18 at 09:00 Gabapentin (Neurontin) 300 mg TID PO Last administered on 08/11/18 08:05; Admin Dose 300 MG; Start 08/10/18 at 09:00 Methocarbamol (Robaxin) 500 mg DAILY PO Last administered on 08/11/18 08:05; Admin Dose 500 MG; Start 08/10/18 at 09:00 Metoprolol Tartrate (Lopressor) 25 mg BID PO Last administered on 08/11/18 08:05; Admin Dose 25 MG; Start 08/10/18 at 09:00 Pantoprazole (Protonix Tab) 40 mg AC BREAKFAST PO Last administered on 08/11/18 06:19; Admin Dose 40 MG; Start 08/10/18 at 07:00 Sevelamer Carbonate (Renvela) 1.6 gm WITH MEALS PO Last administered on 08/11/18 11:47; Admin Dose 1.6 GM; Start 08/10/18 at 08:00 Apixaban (Eliquis) 5 mg BID PO Last administered on 08/11/18 08:06; Admin Dose 5 MG; Start 08/10/18 at 09:00 Vancomycin HCl (Vanco Iv Per Pharmacy) VANCOMYCIN PER PHARMACY PER PROTOCOL XX ; Start 08/09/18 at 23:30 Cefepime HCl 50 ml @ 100 mls/hr Q24H IVPB Last administered on 08/11/18 08:07; Admin Dose 100 MLS/HR; Start 08/10/18 at 09:00 Acetaminophen (Tylenol Tab) 650 mg Q6H PRN PO MILD PAIN(1-3)OR ELEVATED TEMP Last administered on 08/11/18 09:35; Admin Dose 650 MG; Start 08/09/18 at 23:30 Acetaminophen/ Hydrocodone Bitart (Heath (5/325)) 1 tab Q6H PRN PO MODERATE PAIN LEVEL 4-6 Last administered on 08/10/18 00:42; Admin Dose 1 TAB; Start 08/09/18 at 23:30 Morphine Sulfate (morphine) 2 mg Q4H PRN IV SEVERE PAIN LEVEL 7-10 Last administered on 08/11/18 05:01; Admin Dose 2 MG; Start 08/09/18 at 23:30 Guaifenesin/ Codeine Phosphate (Robitussin Ac Liquid Cup) 10 ml Q4H PRN PO COUGH Last administered on 08/11/18 05:01; Admin Dose 10 ML; Start 08/09/18 at 23:30 Miscellaneous Information 1 ea NOTE XX ; Start 08/10/18 at 05:30 Glucose (Glutose) 15 gm Q15M PRN PO DECREASED GLUCOSE; Start 08/10/18 at 05:30 Glucose (Glutose) 22.5 gm Q15M PRN PO DECREASED GLUCOSE; Start 08/10/18 at 05:30 Dextrose (D50w Syringe) 25 ml Q15M PRN IV DECREASED GLUCOSE; Start 08/10/18 at 05:30 Dextrose (D50w Syringe) 50 ml Q15M PRN IV DECREASED GLUCOSE; Start 08/10/18 at 05:30 Glucagon (Glucagen) 1 mg Q15M PRN IM DECREASED GLUCOSE; Start 08/10/18 at 05:30 Glucose (Glutose) 15 gm Q15M PRN BUCCAL DECREASED GLUCOSE; Start 08/10/18 at 05:30 Insulin Aspart (Novolog Insulin Pen) NOVOLOG *MILD* ALGORI... AC MEALS AND BEDTIME SC Last administered on 08/11/18at 11:50; Admin Dose 5 UNIT; Start 08/10/18 at 08:00 Diagnostic Test (Pha) (Accu-Chek) 1 ea 02 XX Last administered on 08/11/18 01:56; Admin Dose 1 EA; Start 08/11/18 at 02:00 Insulin Glargine (Lantus) 20 units DAILY@0800 SC Last administered on 08/11/18 11:50; Admin Dose 20 UNITS; Start 08/11/18 at 08:00 Insulin Aspart (Novolog Insulin Pen) 10 unit WITH MEALS SC Last administered on 08/11/18 11:50; Admin Dose 10 UNIT; Start 08/11/18 at 08:00 Heparin Sodium (Porcine) (Heparin (1000 Units/ml)) 4,700 unit AFTER DIALYSIS CATHETER Last administered on 08/11/18at 00:41; Admin Dose 4,700 UNIT; Start 08/10/18 at 22:00 ANTHONY DUPREE August 11, 2018 13:19
[2018-08-11] MEDS ORDERED: traMADol 50 MG TAB PO PRN (13:30)
--- NOTE | 2018-08-11 15:28 | CONS ---
DATE OF ADMISSION: 08/09/2018 DATE OF CONSULTATION: 08/11/2018 REASON FOR ADMISSION: Shortness of breath and right foot ulcer. HISTORY OF PRESENT ILLNESS: This is a 58-year-old female with a past medical history of end-stage re nal disease on hemodialysis Thursday, and Thursday; peripheral vascular disease, hypertension , asthma, anxiety, peripheral neuropathy, diabetic right foot ulcer. According to the patient, she h as been following the dialysis care at . She goes Thursday, and Thursday. They normall y remove 4 liters. Her last dialysis was Thursday. The patient still comes in here for her regular c heckup. [facility] There, she was complaining of fevers, chi lls and nausea and was sent into the Emergency Room for further evaluation. On arrival to ED, vital signs showed a temperature of 102.7 with a blood pressure of 173/79. Labs showed a potassium of 6 wi th a BUN of 66, creatinine of 7.96, bicarbonate of 29 and the patient also had a chest x-ray that eulalio wed mild cardiomegaly, vascular congestion, new left lower lobe infiltrate, worrisome for pneumonia a nd the patient was started on antibiotics and was admitted for further management. PAST MEDICAL HISTORY: 1. End-stage renal disease on hemodialysis Thursday, and Thursday. 2. History of a left Perm-A-Cath. 3. History of peripheral vascular disease. 4. Diabetes with a complication of diabetic neuropathy, nephropathy, retinopathy. 5. History of central stenosis. 6. History of left lower extremity bypass. 7. Anemia of chronic disease. 8. Morbid obesity. ALLERGIES: None. PAST SURGICAL HISTORY: The patient has a Perm-A-Cath placement and also left upper extremity fistula creation. SOCIAL HISTORY: Denies any history of smoking, alcohol or any drug use. Currently lives in [place] . FAMILY HISTORY: Noncontributory. REVIEW OF SYSTEMS: The patient complains of some shortness of breath and cough. Exposure to sick co ntacts. Also had some fevers and chills. Denied any abdominal pain. Has some nausea, denies any vo miting, any diarrhea or any rash. Patient has a right lower extremity diabetic ulcer. PHYSICAL EXAMINATION: VITAL SIGNS: His blood pressure 110/59, afebrile, heart rate 67, respirations 18. GENERAL: The patient is awake, alert, oriented, does not appear to be in any acute distress. HEENT: Pupils equal, round, reactive to light. NECK: Supple, no JVD. HEART: Regular rate and rhythm. LUNGS: Diffuse bilateral rhonchi and some crackles appreciated, especially on the left base. ABDOMEN: Soft, nontender, nondistended, positive normoactive bowel sounds. EXTREMITIES: The patient has a left Perm-A-Cath in place. The patient has a left upper extremity fi stula with a faint bruit. However, it is not deep enough. Patient has a right leg diabetic ulcer, s tatus post amputation of the right first toe. LABORATORY DATA: Showed potassium of 6.0, BUN of 48, creatinine of 6.76. Sodium of 141. DIAGNOSTICS: Chest x-ray shows mild cardiomegaly, vascular congestion, new left lower infiltrate, wo rrisome for pneumonia. ASSESSMENT AND PLAN: This is a 58-year-old female who presented with: 1. Shortness of breath, cough, with fevers, likely secondary to pneumonia; however, might have some underlying fluid overload. 2. Hyperkalemia. Not sure about patient's compliance; however, the patient had been going to his di alysis center. 3. Elevated troponin. Patient has history of end-stage renal disease. 4. History of peripheral vascular disease. 5. End-stage renal disease, Thursday, , Thursday. 6. Anemia, likely anemia of chronic disease. 7. Peripheral vascular disease status post bypass of the left lower extremity. 8. Right foot ulcer with infection at the site of recent debridement. Cultures grew MSSA and Enterococcus. 9. History of central stenosis with apparent revascularization. 10. Status post placement of left IJ 06/2017. PLAN: At this period of time, the patient is admitted to [facility]. The patient will need strict diabeti c control. The patient is currently on IV antibiotics per ID. We will continue the patient on hemod ialysis. Patient was explained about the compliance. Would also send the blood cultures from the Pe rm-A-Cath. Also, get arterial duplex of the left upper extremity to evaluate the fistula and rest of the treatment will depend on the patient's hospitalization course. Dictated By: DARELL WORLEY/MAURICIO Conf#: [id number] DID#: [id number] CC: KIRSTIN SPANN MD;*End*
--- NOTE | 2018-08-11 15:52 | CONS ---
DATE OF ADMISSION: 08/09/2018 DATE OF CONSULTATION: 08/11/2018 TYPE OF CONSULTATION: Cardiology. REASON FOR CONSULTATION: Atrial fibrillation, positive troponin. REQUESTING PHYSICIAN: Kirstin Spann MD HISTORY OF PRESENT ILLNESS: Ms. Petit is a 58-year-old female with a history of end-stage renal d isease on hemodialysis, atrial fibrillation on systemic anticoagulation with Eliquis, diabetes mellit us, peripheral arterial disease, right lower extremity ulcer, who presented with complaints of fevers , chills, nausea and associated shortness of breath. Initially upon arrival, temperature was 101.8, blood pressure 173/79, pulse 118, respiratory rate 30, satting 88%. The patient's labs revealed whit e blood cell count of 6.5, hemoglobin 11.1, platelet count of 149, sodium of 141, potassium 6.0, crea tinine 7.9, BUN of 66, troponin positive at 0.230, INR of 1.21. The patient's chest x-ray revealed c entral venous catheter in good positioning, mild cardiomegaly, vascular congestion and new left lower lobe infiltrate, worrisome for pneumonia. The patient's electrocardiogram revealed sinus rhythm at a rate of 99 with normal axis, normal intervals and nonspecific ST-T abnormalities. The patient was subsequently admitted to the floor and since admit to the floor, had not had a repeat troponin. The patient does have chest pain with cough at this time and has ongoing shortness of breath. The patien t has been monitored on telemetry and has been notable for onset of atrial fibrillation. PAST MEDICAL HISTORY: As above in HPI. MEDICATIONS CURRENTLY IN HOSPITAL: 1. Azithromycin. 2. Colace. 3. Tramadol. 4. Lantus. 5. BuSpar. 6. Diltiazem 120 mg daily. 7. Lasix 20 mg daily. 8. Neurontin 300 mg t.i.d. 9. Robaxin. 10. Metoprolol 25 mg p.o. b.i.d. 11. Eliquis 5 mg b.i.d. 12. Cefepime. 13. Vancomycin. 14. Hydrocodone. 15. Robitussin. ALLERGIES: NO KNOWN DRUG ALLERGIES. SOCIAL HISTORY: No current tobacco, EtOH or illicit drug use. FAMILY HISTORY: No history of sudden cardiac or early CAD. REVIEW OF SYSTEMS: As above in HPI. CONSTITUTIONAL: No fevers, chills. PULMONARY: Shortness of breath. CARDIOVASCULAR: Positive chest pain with cough. GASTROINTESTINAL: No vomiting. GENITOURINARY: No hematuria but end-stage renal disease. PSYCHIATRIC: Possible anxiety the patient complains of this time. ENDOCRINE: Diabetes mellitus. PHYSICAL EXAMINATION: VITAL SIGNS: Temperature 98.2, blood pressure 110/59, pulse 67, respiratory rate 19, satting 93%. GENERAL: The patient is alert, awake, in no acute distress. NECK: JVP is approximately 8 to 9 cm of water. CHEST: Fair air movement throughout. HEART: Irregularly irregular, I/ systolic murmur, nondisplaced PMI. ABDOMEN: Positive bowel sounds, soft. EXTREMITIES: No significant pitting edema, 1+ pulses bilateral posterior tibial. LABORATORY DATA: Most recently from today, sodium 140, potassium 4.9, creatinine 6.76, BUN of 48. H emoglobin A1c of 6.5. White blood cell count of 4.3, hemoglobin 9.7, platelet count of 168. IMAGING STUDIES: As above in HPI. No further imaging studies for my review at this time. ELECTROCARDIOGRAM: As above in HPI. No further electrocardiograms for my review at this time. IMPRESSION: 1. Positive troponin, assess significance in the setting of renal failure, likely type 2 demand infa rct in the setting of pneumonia. 2. Atrial fibrillation, rate controlled. 3. Abnormal electrocardiogram, assess for true acute coronary syndrome. 4. Hypertension, well controlled. 5. End-stage renal disease, on hemodialysis. 6. Nausea. 7. Left lower lobe pneumonia. 8. Peripheral arterial disease with nonhealing lower extremity ulcer. RECOMMENDATIONS: 1. At this time, we would continue to trend the patient's cardiac enzymes, assess for any significan t ongoing cardiac damage. 2. Check a 2D echo for this patient's ejection fraction, wall motion, rule out any major valve abnor malities 3. Continue the patient's current metoprolol and diltiazem for heart rate and blood pressure control . 4. Continue the patient on Eliquis for prevention of thromboembolic complications of atrial fibrilla tion. 5. Continue the patient's antibiotics and follow up all culture data. 6. Pain control. 7. Ongoing evaluation of lower extremity ulcer per podiatry. 8. The patient is improving from pneumonia and we will additionally consider stress testing to [facility] assess significance of positive troponin. Thank you for allowing me to take part in the care of this patient. I will continue to follow her ve ry closely with you with further recommendations will be made as the patient progresses through her [facility] clinical course. Dictated By: GERTRUDIS EVERETT/NTS Conf#: [id number] DID#: [id number] CC: BONITA RUBIO MD; KIRSTIN SPANN MD;*EndCC*
--- NOTE | 2018-08-11 16:53 | RADRPT ---
Echocardiogram Report Patient Name: Johnathan CAREYnt ID: [id number] : 1960 (58y 1m)Study Date: 08/11/2018 2:22:53 PM Gender: FAccession #: [id number] Tech: Jose Roberto Flores [facility] Location: 604-A Ref.Physician: GERTRUDIS GUILLERMO Height(Cm): BSA: Weight(Kg): Quality: AdequateAccount #: Procedures: Echocardiographic Report: Transthoracic echocardiogram with complete 2D, M-Mode, and doppler examination. Indications: Shortness of breath/ Positive troponin. Measurements: 2D/M Mode Doppler Measurement Value Normal Range Measurement Value Normal Range LVIDd 2D 5.3 [ 3.8 - 5.2 ] cm AV Peak Oswald 1.2 [ 100.0 - 170.0 ] cm/sec LVIDs 2D 3.8 [ 2.2 - 3.5 ] cm AV Peak PG 6.0 [ 2.0 - 9.0 ] mmHg LVPWd 2D 1.6 [ 0.6 - 0.9 ] cm LVOT Peak Oswald 0.8 [ 70.0 - 110.0 ] cm/sec IVSd 2D 1.6 [ 0.6 - 0.9 ] cm LVOT Peak PG 3.0 [ 2.0 - 6.0 ] mmHg AoR Diam 2D 2.8 [ 2.3 - 3.1 ] cm MV E Peak Oswald 1.0 [ 60.0 - 130.0 ] cm/sec EDV 2D 133.0 [ 46.0 - 106.0 ] ml MV A Peak Oswald 0.3 [ 100.0 - 120.0 ] cm/sec ESV 2D 61.6 [ 14.0 - 42.0 ] ml MV E/A 3.4 [ 0.8 - 1.5 ] ratio EF 2D 53.7 [ 54.0 - 74.0 ] percent MV Decel Time 190 [ 104 - 258 ] msec LA Dimen 2D 4.8 [ 2.7 - 3.8 ] cm Lat E` Oswald 0.1 [ 10.0 - 15.0 ] cm/sec Lateral E/E` 10.1 [ 1.0 - 2.0 ] ratio MV E/A 3.4 [ 0.8 - 1.5 ] ratio TR Peak Oswald 2.7 [ 100.0 - 280.0 ] cm/sec TR Peak PG 29.0 mmHg RVSP 37.0 [ 10.0 - 36.0 ] mmHg Findings: Left Ventricle: Lower limits of normal systolic function. Normal left ventricular cavity size. Moderate concentric left ventricular hypertrophy. Ejection fraction is visually estimated at 50 %. Tissue Doppler/Mitral Doppler indices are consistent with restrictive physiology with markedly elevated left atrial pressure (Stage III-IV diastolic dysfunction). Right Ventricle: Mild right ventricular systolic dysfunction. Moderate enlargement of right ventricle. Left Atrium: There is severe enlargement of left atrium. Right Atrium: There is severe enlargement of right atrium. Mitral Valve: Mild mitral leaflet calcification. Mild mitral annular calcification. Trace mitral regurgitation. Aortic Valve: Aortic sclerosis without significant stenosis. Tricuspid Valve: Normal appearance of the tricuspid valve. Estimated peak PA systolic pressure 37 mmHg. There is mild tricuspid regurgitation. Pericardium: Normal pericardium with no significant pericardial effusion. Aorta: Normal aortic root. IVC: Dilated IVC with respiratory collapse consistent with elevated right atrial pressure. Conclusions: Lower limits of normal systolic function. Normal left ventricular cavity size. Moderate concentric left ventricular hypertrophy. Ejection fraction is visually estimated at 50 %. Tissue Doppler/Mitral Doppler indices are consistent with restrictive physiology with markedly elevated left atrial pressure (Stage III-IV diastolic dysfunction). Mild right ventricular systolic dysfunction. Moderate enlargement of right ventricle. There is severe enlargement of left atrium. There is severe enlargement of right atrium. Mild mitral leaflet calcification. Mild mitral annular calcification. Trace mitral regurgitation. Normal appearance of the tricuspid valve. Estimated peak PA systolic pressure 37 mmHg. There is mild tricuspid regurgitation. Electronically Signed By: Gertrudis Guillermo 2018-08-11 16:53:07 PDT
[2018-08-11] MEDS: HYDROCODONE/APAP (5/325) TAB PO PRN (19:27)
[2018-08-11] MEDS: DICLOFENAC SODIUM 1% GEL 100 GM TUBE TP SCH (21:27)
[2018-08-12] VITALS (24 sets, daily range): BP systolic 97–162; BP diastolic 51–87; PULSE 58–87; RESP 18–20
[2018-08-12] MEDS: ACCU-CHEK XX SCH ×2 (02:00→02:04)
[2018-08-12] MEDS: PANTOPRAZOLE (EC) 40 MG TAB PO SCH (06:07)
[2018-08-12] MEDS: INSULIN GLARGINE [LANTus] (100 UNITS/ML) SYG SC SCH (07:52)
[2018-08-12] MEDS: INSULIN ASPART [NOVOLOG] 3 ML PEN SC SCH ×7 (07:52→20:39)
[2018-08-12] MEDS: CEFEPIME 1GM/50 ML (PMX) 50 ML IVPB SCH (09:00)
[2018-08-12] MEDS: METHOCARBAMOL 500 MG TAB PO SCH (09:00)
[2018-08-12] MEDS: DICLOFENAC SODIUM 1% GEL 100 GM TUBE TP SCH ×2 (09:01→20:46)
[2018-08-12] MEDS: AZITHROMYCIN 500 MG TAB PO SCH (09:01)
[2018-08-12] MEDS: BUSPIRONE 10 MG TAB PO SCH ×3 (09:01→20:37)
[2018-08-12] MEDS: DOCUSATE SODIUM 100 MG CAP PO SCH (09:01)
[2018-08-12] MEDS: GABAPENTIN 300 MG CAP PO SCH ×3 (09:01→20:37)
[2018-08-12] MEDS: APIXABAN 5 MG TABLET PO SCH ×2 (09:01→20:36)
[2018-08-12] MEDS: SEVELAMER CARBONATE 0.8 GM PKT PO SCH ×3 (09:01→16:43)
[2018-08-12] MEDS: ACETAMINOPHEN 325 MG TAB PO PRN (12:09)
[2018-08-12] MEDS: GUAIFENESIN/CODEINE 5ML CUP PO PRN ×2 (12:46→20:46)
--- NOTE | 2018-08-12 13:02 | PN ---
Date/Time of Note Date/Time of Note DATE: 08/12/18 TIME: 12:57 Assessment/Plan VTE Prophylaxis Risk score (from [facility] [place])>0 risk: 5 SCD applied (from Ns): Yes Pharmacological prophylaxis: apixaban Lines/Catheters IV Catheter Type (from [facility]): [place] Lock Urinary Cath still in place: No Assessment/Plan Hospital Course Patient is undergoing hemodialysis, patient is awake alert, no acute distress. Patient continue telemetry monitoring patient is currently in atrial fibrillation at controlled rate. Assessment/Plan -Healthcare associated pneumonia, continue broad-spectrum antibiotics, Dr. Lucas is following in infection disease consultation. -Hyperkalemia -Dialysis dependent end-stage renal disease. Dr. Spicer is following in nephrology consultation. -Elevated troponin, Dr. William is following in cardiology consultation. -Atrial fibrillation, continue metoprolol and Eliquis. -Anemia of chronic disease -Diabetes mellitus type 2 with hemoglobin A1c of 6.5, continue Lantus and NovoLog -Peripheral vascular disease history of left lower extremity bypass surgery. -Right foot ulcer. Dr. Pineda is following and podiatry consultation. Disposition: to assisted living facility when symptoms resolve and cleared by consultants. Further recommendations based on clinical course. Plan of care discussed with Dr. Cordero. Result Diagram: 08/12/1852608/12/18526 Results 24hrs Laboratory Tests Test 08/11/18 17:52 08/11/18 21:25 08/12/18 05:27 08/12/18 07:46 Bedside Glucose 146 85 146 White Blood Count 3.5 L Red Blood Count 2.68 L Hemoglobin 9.0 L Hematocrit 29.5 L Mean Corpuscular Volume 110.1 H Mean Corpuscular 33.6 H Hemoglobin Mean Corpuscular 30.5 L Hemoglobin Concent Red Cell Distribution 16.7 H Width Platelet Count 196 Mean Platelet Volume 11.2 H Immature Granulocytes % 0.300 Neutrophils % 53.9 Lymphocytes % 22.6 Monocytes % 18.3 H Eosinophils % 4.6 Basophils % 0.3 Nucleated Red Blood 0.0 Cells % Immature Granulocytes # 0.010 Neutrophils # 1.9 Lymphocytes # 0.8 Monocytes # 0.6 Eosinophils # 0.2 Basophils # 0.0 Nucleated Red Blood 0.0 Cells # Sodium Level 139 Potassium Level 5.2 H Chloride Level 99 Carbon Dioxide Level 25 Anion Gap 15 H Blood Urea Nitrogen 69 H Creatinine 8.11 H Est Glomerular Filtrat 5 L Rate mL/min Glucose Level 128 Calcium Level 8.3 L Creatine Kinase 43 Creatine Kinase Index 6.0 Creatinine Kinase MB 2.60 H (Mass) Troponin I 0.370 *H Triglycerides Level 234 H Cholesterol Level 136 LDL Cholesterol, 60 Calculated HDL Cholesterol 29 L Cholesterol/HDL Ratio 4.6 Random Vancomycin Level 15.9 Test 08/12/18 12:47 Bedside Glucose 160 Exam/Review of Systems Exam Vitals Vital Signs Date Temp Pulse Resp B/P (MAP) Pulse Ox O2 O2 Flow FiO2 Time Delivery Rate 08/12/18 87 12:45 08/12/18 97.9 20 114/72 98 11:48 (86) 08/12/18 Nasal 2.0 10:15 Cannula 08/09/18 21 17:51 Intake and Output 08/11/18 08/11/18 08/12/18 1515:00 23:00 07:00 IntakeIntake Total 500 ml BalanceBalance 500 ml Exam Constitutional: alert, oriented Respiratory: diminished breath sounds Cardiovascular: regular rate and rhythm Gastrointestinal: soft, non-tender Musculoskeletal: nl extremities to inspection Extremities: normal pulses, other (Right foot ulcer) Neurological: nl mental status Left chest hemodialysis catheter Results Results 24hrs Laboratory Tests Test 08/11/18 17:52 08/11/18 21:25 08/12/18 05:27 08/12/18 07:46 Bedside Glucose 146 85 146 White Blood Count 3.5 L Red Blood Count 2.68 L Hemoglobin 9.0 L Hematocrit 29.5 L Mean Corpuscular Volume 110.1 H Mean Corpuscular 33.6 H Hemoglobin Mean Corpuscular 30.5 L Hemoglobin Concent Red Cell Distribution 16.7 H Width Platelet Count 196 Mean Platelet Volume 11.2 H Immature Granulocytes % 0.300 Neutrophils % 53.9 Lymphocytes % 22.6 Monocytes % 18.3 H Eosinophils % 4.6 Basophils % 0.3 Nucleated Red Blood 0.0 Cells % Immature Granulocytes # 0.010 Neutrophils # 1.9 Lymphocytes # 0.8 Monocytes # 0.6 Eosinophils # 0.2 Basophils # 0.0 Nucleated Red Blood 0.0 Cells # Sodium Level 139 Potassium Level 5.2 H Chloride Level 99 Carbon Dioxide Level 25 Anion Gap 15 H Blood Urea Nitrogen 69 H Creatinine 8.11 H Est Glomerular Filtrat 5 L Rate mL/min Glucose Level 128 Calcium Level 8.3 L Creatine Kinase 43 Creatine Kinase Index 6.0 Creatinine Kinase MB 2.60 H (Mass) Troponin I 0.370 *H Triglycerides Level 234 H Cholesterol Level 136 LDL Cholesterol, 60 Calculated HDL Cholesterol 29 L Cholesterol/HDL Ratio 4.6 Random Vancomycin Level 15.9 Test 08/12/18 12:47 Bedside Glucose 160 Medications Medication Current Medications Buspirone HCl (Buspar) 10 mg TID PO Last administered on 08/12/18 09:01; Admin Dose 10 MG; Start 08/10/18 at 09:00 Diltiazem HCl (Cardizem Cd) 120 mg DAILY PO Last administered on 08/11/18 08:06; Admin Dose 120 MG; Start 08/10/18 at 09:00 Furosemide (Lasix) 20 mg DAILY PO Last administered on 08/11/18 09:35; Admin Dose 20 MG; Start 08/10/18 at 09:00 Gabapentin (Neurontin) 300 mg TID PO Last administered on 08/12/18 09:01; Admin Dose 300 MG; Start 08/10/18 at 09:00 Methocarbamol (Robaxin) 500 mg DAILY PO Last administered on 08/11/18 08:05; Admin Dose 500 MG; Start 08/10/18 at 09:00 Metoprolol Tartrate (Lopressor) 25 mg BID PO Last administered on 08/11/18 08:05; Admin Dose 25 MG; Start 08/10/18 at 09:00 Pantoprazole (Protonix Tab) 40 mg AC BREAKFAST PO Last administered on 08/12/18 06:07; Admin Dose 40 MG; Start 08/10/18 at 07:00 Sevelamer Carbonate (Renvela) 1.6 gm WITH MEALS PO Last administered on 08/12/18 12:46; Admin Dose 1.6 GM; Start 08/10/18 at 08:00 Apixaban (Eliquis) 5 mg BID PO Last administered on 08/12/18 09:01; Admin Dose 5 MG; Start 08/10/18 at 09:00 Vancomycin HCl (Vanco Iv Per Pharmacy) VANCOMYCIN PER PHARMACY PER PROTOCOL XX ; Start 08/09/18 at 23:30 Cefepime HCl 50 ml @ 100 mls/hr Q24H IVPB Last administered on 08/12/18 09:00; Admin Dose 100 MLS/HR; Start 08/10/18 at 09:00 Acetaminophen (Tylenol Tab) 650 mg Q6H PRN PO MILD PAIN(1-3)OR ELEVATED TEMP Last administered on 08/12/18 12:09; Admin Dose 650 MG; Start 08/09/18 at 23:30 Acetaminophen/ Hydrocodone Bitart ([place] (5/325)) 1 tab Q6H PRN PO MODERATE PAIN LEVEL 4-6 Last administered on 08/11/18 19:27; Admin Dose 1 TAB; Start 08/09/18 at 23:30 Morphine Sulfate (morphine) 2 mg Q4H PRN IV SEVERE PAIN LEVEL 7-10 Last administered on 08/11/18 05:01; Admin Dose 2 MG; Start 08/09/18 at 23:30 Guaifenesin/ Codeine Phosphate (Robitussin Ac Liquid Cup) 10 ml Q4H PRN PO COUGH Last administered on 08/12/18 12:46; Admin Dose 10 ML; Start 08/09/18 at 23:30 Miscellaneous Information 1 ea NOTE XX ; Start 08/10/18 at 05:30 Glucose (Glutose) 15 gm Q15M PRN PO DECREASED GLUCOSE; Start 08/10/18 at 05:30 Glucose (Glutose) 22.5 gm Q15M PRN PO DECREASED GLUCOSE; Start 08/10/18 at 05:30 Dextrose (D50w Syringe) 25 ml Q15M PRN IV DECREASED GLUCOSE; Start 08/10/18 at 05:30 Dextrose (D50w Syringe) 50 ml Q15M PRN IV DECREASED GLUCOSE; Start 08/10/18 at 05:30 Glucagon (Glucagen) 1 mg Q15M PRN IM DECREASED GLUCOSE; Start 08/10/18 at 05:30 Glucose (Glutose) 15 gm Q15M PRN BUCCAL DECREASED GLUCOSE; Start 08/10/18 at 05:30 Insulin Aspart (Novolog Insulin Pen) NOVOLOG *MILD* ALGORI... AC MEALS AND BEDTIME SC Last administered on 08/12/18 12:51; Admin Dose 1 UNIT; Start 08/10/18 at 08:00 Diagnostic Test (Pha) (Accu-Chek) 1 ea 02 XX Last administered on 08/11/18 01:56; Admin Dose 1 EA; Start 08/11/18 at 02:00 Insulin Glargine (Lantus) 20 units DAILY@0800 SC Last administered on 08/12/18 07:52; Admin Dose 20 UNITS; Start 08/11/18 at 08:00 Insulin Aspart (Novolog Insulin Pen) 10 unit WITH MEALS SC Last administered on 08/12/18 12:51; Admin Dose 10 UNIT; Start 08/11/18 at 08:00 Heparin Sodium (Porcine) (Heparin (1000 Units/ml)) 4,700 unit AFTER DIALYSIS CATHETER Last administered on 08/11/18 00:41; Admin Dose 4,700 UNIT; Start 08/10/18 at 22:00 Azithromycin (Zithromax) 500 mg DAILY PO Last administered on 08/12/18 09:01; Admin Dose 500 MG; Start 08/12/18 at 09:00; Stop 08/16/18 at 08:59 Docusate Sodium (Colace) 100 mg DAILY PO Last administered on 08/12/18 09:01; Admin Dose 100 MG; Start 08/12/18 at 09:00 Tramadol HCl (Ultram) 50 mg Q12H PRN PO PAIN; Start 08/11/18 at 13:30 Diclofenac Sodium (Voltaren 1% Gel) 2 gm BID TP Last administered on 08/12/18 09:01; Admin Dose 2 GM; Start 08/11/18 at 21:00 Vancomycin HCl 250 ml @ 125 mls/hr ONCE IVPB ; Start 08/12/18 at 22:00; Stop 08/12/18 at 23:59 ANTHONY DUPREE August 12, 2018 13:02
--- NOTE | 2018-08-12 13:38 | CONS ---
Assessment/Plan Assessment/Plan Hospital Course (Demo Recall) 1. HCAP; possible fluid overload 2. ESRD on HD Hx: - Non-healing diabetic R foot ulceration with infection at site of recent debridement; cultures grew MSSA and Enterococcus (ESR 93) - S/p excisional sharp debridement of the right first toe involving skin and subcutaneous tissue on 06/11/2017 - Evidence of osteomyelitis at the remnant of the first distal phalanx per MRI R foot 06/24/2017 - DM with hypoglycemic episode - Hgb A1c 7.2% - Diabetic neuropathy - H/o diabetic foot infections/OM of b/l feet, s/p amputation of R two toes - ESRD on HD - H/o central stenosis with apparent recent re-vascularization - S/p placement of L IJ HD catheter 06/20/2017 - PVD - H/o LLE bypass - CHF and CAD - Anemia of chronic kidney disease - Morbid obesity - BMI 44.4 - dysphagia, Group A pharyngitis screen was negative - H/o mildly dilated esophagus on CT (11/2016) and multiple distal erosive lesions in the distal esophagus per EGD (11/27/2016; path negative) - 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 Pt's sinuses are non-TTP. On a trial of renally dosed oseltamivir (06/30/2017-) recommendations: - Continue Vanco/cefepime - Cont. zithromax - procalcitonin in AM - serial cxr - lactic acid serially - f/u with blood cxs, blood cx obtained from HD, and resp cx - will continue to follow closely with you. above plan discussed and coordinated with via [employer]. Consultation Date/Type/Reason Admit Date/Time August 09, 2018 at 17:42 Initial Consult Date 08/10/18 Requesting Provider: KIRSTIN SPANN MD Date/Time of Note DATE: 08/12/18 TIME: 13:38 24 HR Interval Summary Free Text/Dictation Per d/w nurse Yola, blood cx from HD cath obtained today and resp cx has been obtained and sent. Detailed Summary Eyes: no complaints ENT: no complaints Respiratory: cough (non productive), shortness of breath Cardiovascular: no complaints Gastrointestinal: no complaints Genitourinary: no complaints Musculoskeletal: no complaints Skin: no complaints Neurologic: no complaints Endocrine: no complaints Psychological: anxiety Immunologic: no complaints Exam/Review of Systems Exam Vitals Vital Signs Date Temp Pulse Resp B/P (MAP) Pulse Ox O2 O2 Flow FiO2 Time Delivery Rate 08/12/18 87 12:45 08/12/18 97.9 20 114/72 98 11:48 (86) 08/12/18 Nasal 2.0 10:15 Cannula 08/09/18 21 17:51 Intake and Output 08/11/18 08/11/18 08/12/18 1515:00 23:00 07:00 IntakeIntake Total 500 ml BalanceBalance 500 ml Constitutional: alert, oriented, well developed, obese Psych: anxiety Head: normocephalic, atraumatic Eyes: nl conjunctiva, EOMI, PERRL; No icteric ENMT: nl external ears & nose, nl nasal mucosa & septum, mucosa pink and moist Neck: supple Respiratory: diminished breath sounds, other (mild rhonchi bilaterally ); No crackles/rales, No labored breathing, No wheezing Cardiovascular: regular rate and rhythm Gastrointestinal: soft, non-tender, bowel sounds (normoactive); No distended Musculoskeletal: nl extremities to inspection, range of motion Extremities: No clubbing Neurological: nl mental status, nl speech, nl strength; No confused, No numbness Skin: ecchymosis, other (R foot dry ulcer no drainage or s/s infection); No rash or lesions Results Result Diagram: 08/12/1852608/12/18526 Results 24hrs Laboratory Tests Test 08/11/18 17:52 08/11/18 21:25 08/12/18 05:27 08/12/18 07:46 Bedside Glucose 146 85 146 White Blood Count 3.5 L Red Blood Count 2.68 L Hemoglobin 9.0 L Hematocrit 29.5 L Mean Corpuscular Volume 110.1 H Mean Corpuscular 33.6 H Hemoglobin Mean Corpuscular 30.5 L Hemoglobin Concent Red Cell Distribution 16.7 H Width Platelet Count 196 Mean Platelet Volume 11.2 H Immature Granulocytes % 0.300 Neutrophils % 53.9 Lymphocytes % 22.6 Monocytes % 18.3 H Eosinophils % 4.6 Basophils % 0.3 Nucleated Red Blood 0.0 Cells % Immature Granulocytes # 0.010 Neutrophils # 1.9 Lymphocytes # 0.8 Monocytes # 0.6 Eosinophils # 0.2 Basophils # 0.0 Nucleated Red Blood 0.0 Cells # Sodium Level 139 Potassium Level 5.2 H Chloride Level 99 Carbon Dioxide Level 25 Anion Gap 15 H Blood Urea Nitrogen 69 H Creatinine 8.11 H Est Glomerular Filtrat 5 L Rate mL/min Glucose Level 128 Calcium Level 8.3 L Creatine Kinase 43 Creatine Kinase Index 6.0 Creatinine Kinase MB 2.60 H (Mass) Troponin I 0.370 *H Triglycerides Level 234 H Cholesterol Level 136 LDL Cholesterol, 60 Calculated HDL Cholesterol 29 L Cholesterol/HDL Ratio 4.6 Random Vancomycin Level 15.9 Test 08/12/18 12:47 Bedside Glucose 160 Medications Medication Current Medications Buspirone HCl (Buspar) 10 mg TID PO Last administered on 08/12/18 13:11; Admin Dose 10 MG; Start 08/10/18 at 09:00 Diltiazem HCl (Cardizem Cd) 120 mg DAILY PO Last administered on 08/11/18 08:06; Admin Dose 120 MG; Start 08/10/18 at 09:00 Furosemide (Lasix) 20 mg DAILY PO Last administered on 08/11/18 09:35; Admin Dose 20 MG; Start 08/10/18 at 09:00 Gabapentin (Neurontin) 300 mg TID PO Last administered on 08/12/18 09:01; Admin Dose 300 MG; Start 08/10/18 at 09:00 Methocarbamol (Robaxin) 500 mg DAILY PO Last administered on 08/11/18 08:05; Admin Dose 500 MG; Start 08/10/18 at 09:00 Metoprolol Tartrate (Lopressor) 25 mg BID PO Last administered on 08/11/18 08:05; Admin Dose 25 MG; Start 08/10/18 at 09:00 Pantoprazole (Protonix Tab) 40 mg AC BREAKFAST PO Last administered on 08/12/18 06:07; Admin Dose 40 MG; Start 08/10/18 at 07:00 Sevelamer Carbonate (Renvela) 1.6 gm WITH MEALS PO Last administered on 9at 12:46; Admin Dose 1.6 GM; Start 08/10/18 at 08:00 Apixaban (Eliquis) 5 mg BID PO Last administered on 08/12/18at 09:01; Admin Dose 5 MG; Start 08/10/18 at 09:00 Vancomycin HCl (Vanco Iv Per Pharmacy) VANCOMYCIN PER PHARMACY PER PROTOCOL XX ; Start 08/09/18 at 23:30 Cefepime HCl 50 ml @ 100 mls/hr Q24H IVPB Last administered on 08/12/18at 09:00; Admin Dose 100 MLS/HR; Start 08/10/18 at 09:00 Acetaminophen (Tylenol Tab) 650 mg Q6H PRN PO MILD PAIN(1-3)OR ELEVATED TEMP Last administered on 08/12/18at 12:09; Admin Dose 650 MG; Start 08/09/18 at 23:30 Acetaminophen/ Hydrocodone Bitart ([place] (5/325)) 1 tab Q6H PRN PO MODERATE PAIN LEVEL 4-6 Last administered on 08/11/18at 19:27; Admin Dose 1 TAB; Start 08/09/18 at 23:30 Morphine Sulfate (morphine) 2 mg Q4H PRN IV SEVERE PAIN LEVEL 7-10 Last adminis tered on 08/11/18at 05:01; Admin Dose 2 MG; Start 08/09/18 at 23:30 Guaifenesin/ Codeine Phosphate (Robitussin Ac Liquid Cup) 10 ml Q4H PRN PO COUGH Last administered on 08/12/18at 12:46; Admin Dose 10 ML; Start 08/09/18 at 23:30 Miscellaneous Information 1 ea NOTE XX ; Start 08/10/18 at 05:30 Glucose (Glutose) 15 gm Q15M PRN PO DECREASED GLUCOSE; Start 08/10/18 at 05:30 Glucose (Glutose) 22.5 gm Q15M PRN PO DECREASED GLUCOSE; Start 08/10/18 at 05:30 Dextrose (D50w Syringe) 25 ml Q15M PRN IV DECREASED GLUCOSE; Start 08/10/18 at 05:30 Dextrose (D50w Syringe) 50 ml Q15M PRN IV DECREASED GLUCOSE; Start 08/10/18 at 05:30 Glucagon (Glucagen) 1 mg Q15M PRN IM DECREASED GLUCOSE; Start 08/10/18 at 05:30 Glucose (Glutose) 15 gm Q15M PRN BUCCAL DECREASED GLUCOSE; Start 08/10/18 at 05:30 Insulin Aspart (Novolog Insulin Pen) NOVOLOG *MILD* ALGORI... AC MEALS AND BEDTIME SC Last administered on 08/12/18 12:51; Admin Dose 1 UNIT; Start 08/10/18 at 08:00 Diagnostic Test (Pha) (Accu-Chek) 1 ea 02 XX Last administered on 08/11/18 01:56; Admin Dose 1 EA; Start 08/11/18 at 02:00 Insulin Glargine (Lantus) 20 units DAILY@0800 SC Last administered on 08/12/18 07:52; Admin Dose 20 UNITS; Start 08/11/18 at 08:00 Insulin Aspart (Novolog Insulin Pen) 10 unit WITH MEALS SC Last administered on 08/12/18 12:51; Admin Dose 10 UNIT; Start 08/11/18 at 08:00 Heparin Sodium (Porcine) (Heparin (1000 Units/ml)) 4,700 unit AFTER DIALYSIS CATHETER Last administered on 08/11/18 00:41; Admin Dose 4,700 UNIT; Start at 22:00 Azithromycin (Zithromax) 500 mg DAILY PO Last administered on 08/12/18 09:01; Admin Dose 500 MG; Start 08/12/18 at 09:00; Stop 08/16/18 at 08:59 Docusate Sodium (Colace) 100 mg DAILY PO Last administered on 08/12/18 09:01; Admin Dose 100 MG; Start 08/12/18 at 09:00 Tramadol HCl (Ultram) 50 mg Q12H PRN PO PAIN; Start 08/11/18 at 13:30 Diclofenac Sodium (Voltaren 1% Gel) 2 gm BID TP Last administered on 08/12/18 09:01; Admin Dose 2 GM; Start 08/11/18 at 21:00 Vancomycin HCl 250 ml @ 125 mls/hr ONCE IVPB ; Start 08/12/18 at 22:00; Stop 08/12/18 at 23:59 CHERYL TRINIDAD NP August 12, 2018 13:38
[2018-08-12] MEDS: HEPARIN 1000 UNITS/ML 10 ML INJ CATHETER SCH (14:01)
[2018-08-12] MEDS: HYDROCODONE/APAP (5/325) TAB PO PRN ×2 (14:48→20:44)
--- NOTE | 2018-08-12 14:55 | CONS ---
Assessment/Plan Assessment/Plan Assessment/Plan (Daily) is is a 58-year-old female who presented with: 1. Shortness of breath, cough, with fevers, likely secondary to pneumonia; however, might have some underlying fluid overload. 2. Hyperkalemia. Not sure about patient's compliance; however, the patient had been going to his dialysis center. 3. Elevated troponin. Patient has history of end-stage renal disease.? ACS 4. History of peripheral vascular disease. 5. End-stage renal disease, Thursday, , Thursday. 6. Anemia, likely anemia of chronic disease. 7. Peripheral vascular disease status post bypass of the left lower extremity. 8. Right foot ulcer with infection at the site of recent debridement. Cultures grew MSSA and Enterococcus. 9. History of central stenosis with apparent revascularization. 10. Status post placement of left IJ Permcath 06/2017. Plan - HD MWF - Dr Ruano consult to assess fistula - iv abx per ID - pain meds per primary - renally dose all meds - senior service aide bp/blood draws in left upper ext Consultation Date/Type/Reason Admit Date/Time August 09, 2018 at 17:42 Initial Consult Date 08/10/18 Requesting Provider: KIRSTIN SPANN MD Date/Time of Note DATE: 08/12/18 TIME: 14:51 24 HR Interval Summary Free Text/Dictation Feels anxoius during HD Exam/Review of Systems Exam Vitals Vital Signs Date Temp Pulse Resp B/P (MAP) Pulse Ox O2 O2 Flow FiO2 Time Delivery Rate 08/12/18 80 13:45 08/12/18 97.9 20 114/72 98 11:48 (86) 08/12/18 Nasal 2.0 10:15 Cannula 08/09/18 21 17:51 Intake and Output 08/11/18 08/11/18 08/12/18 1414:59 22:59 06:59 IntakeIntake Total 500 ml BalanceBalance 500 ml Exam GENERAL: The patient is awake, alert, oriented, does not appear to be in any acute distress. HEENT: Pupils equal, round, reactive to light. NECK: Supple, no JVD. HEART: Regular rate and rhythm. LUNGS: Diffuse bilateral rhonchi and some crackles appreciated, especially on the left base. ABDOMEN: Soft, nontender, nondistended, positive normoactive bowel sounds. EXTREMITIES: The patient has a left Perm-A-Cath in place. The patient has a left upper extremity fistula with a faint bruit. However, it is not deep enough and long enough Patient has a right leg diabetic ulcer, status post amputation of the right first toe. Results Result Diagram: 08/12/18 0527 08/12/18 0527 Results 24hrs Laboratory Tests Test 08/11/18 17:52 08/11/18 21:25 08/12/18 05:27 08/12/18 07:46 Bedside Glucose 146 85 146 White Blood Count 3.5 L Red Blood Count 2.68 L Hemoglobin 9.0 L Hematocrit 29.5 L Mean Corpuscular Volume 110.1 H Mean Corpuscular 33.6 H Hemoglobin Mean Corpuscular 30.5 L Hemoglobin Concent Red Cell Distribution 16.7 H Width Platelet Count 196 Mean Platelet Volume 11.2 H Immature Granulocytes % 0.300 Neutrophils % 53.9 Lymphocytes % 22.6 Monocytes % 18.3 H Eosinophils % 4.6 Basophils % 0.3 Nucleated Red Blood 0.0 Cells % Immature Granulocytes # 0.010 Neutrophils # 1.9 Lymphocytes # 0.8 Monocytes # 0.6 Eosinophils # 0.2 Basophils # 0.0 Nucleated Red Blood 0.0 Cells # Sodium Level 139 Potassium Level 5.2 H Chloride Level 99 Carbon Dioxide Level 25 Anion Gap 15 H Blood Urea Nitrogen 69 H Creatinine 8.11 H Est Glomerular Filtrat 5 L Rate mL/min Glucose Level 128 Calcium Level 8.3 L Creatine Kinase 43 Creatine Kinase Index 6.0 Creatinine Kinase MB 2.60 H (Mass) Troponin I 0.370 *H Triglycerides Level 234 H Cholesterol Level 136 LDL Cholesterol, 60 Calculated HDL Cholesterol 29 L Cholesterol/HDL Ratio 4.6 Random Vancomycin Level 15.9 Test 08/12/18 12:47 Bedside Glucose 160 Medications Medication Current Medications Buspirone HCl (Buspar) 10 mg TID PO Last administered on 08/12/18at 13:11; Admin Dose 10 MG; Start 08/10/18 at 09:00 Diltiazem HCl (Cardizem Cd) 120 mg DAILY PO Last administered on 08/11/18at 08:06; Admin Dose 120 MG; Start 08/10/18 at 09:00 Furosemide (Lasix) 20 mg DAILY PO Last administered on 08/11/18 09:35; Admin Dose 20 MG; Start 08/10/18 at 09:00 Gabapentin (Neurontin) 300 mg TID PO Last administered on 08/12/18 14:48; Admin Dose 300 MG; Start 08/10/18 at 09:00 Methocarbamol (Robaxin) 500 mg DAILY PO Last administered on 08/11/18 08:05; Admin Dose 500 MG; Start 08/10/18 at 09:00 Metoprolol Tartrate (Lopressor) 25 mg BID PO Last administered on 08/11/18 08:05; Admin Dose 25 MG; Start 08/10/18 at 09:00 Pantoprazole (Protonix Tab) 40 mg AC BREAKFAST PO Last administered on 08/12/18 06:07; Admin Dose 40 MG; Start 08/10/18 at 07:00 Sevelamer Carbonate (Renvela) 1.6 gm WITH MEALS PO Last administered on 08/12/18 12:46; Admin Dose 1.6 GM; Start 08/10/18 at 08:00 Apixaban (Eliquis) 5 mg BID PO Last administered on 08/12/18 09:01; Admin Dose 5 MG; Start 08/10/18 at 09:00 Vancomycin HCl (Vanco Iv Per Pharmacy) VANCOMYCIN PER PHARMACY PER PROTOCOL XX ; Start 08/09/18 at 23:30 Cefepime HCl 50 ml @ 100 mls/hr Q24H IVPB Last administered on 08/12/18 09:00; Admin Dose 100 MLS/HR; Start 08/10/18 at 09:00 Acetaminophen (Tylenol Tab) 650 mg Q6H PRN PO MILD PAIN(1-3)OR ELEVATED TEMP Last administered on 08/12/18 12:09; Admin Dose 650 MG; Start 08/09/18 at 23:30 Morphine Sulfate (morphine) 2 mg Q4H PRN IV SEVERE PAIN LEVEL 7-10 Last administered on 08/11/18 05:01; Admin Dose 2 MG; Start 08/09/18 at 23:30 Guaifenesin/ Codeine Phosphate (Robitussin Ac Liquid Cup) 10 ml Q4H PRN PO COUGH Last administered on 08/12/18 12:46; Admin Dose 10 ML; Start 08/09/18 at 23:30 Miscellaneous Information 1 ea NOTE XX ; Start 08/10/18 at 05:30 Glucose (Glutose) 15 gm Q15M PRN PO DECREASED GLUCOSE; Start 08/10/18 at 05:30 Glucose (Glutose) 22.5 gm Q15M PRN PO DECREASED GLUCOSE; Start 08/10/18 at 05:30 Dextrose (D50w Syringe) 25 ml Q15M PRN IV DECREASED GLUCOSE; Start 08/10/18 at 05:30 Dextrose (D50w Syringe) 50 ml Q15M PRN IV DECREASED GLUCOSE; Start 08/10/18 at 05:30 Glucagon (Glucagen) 1 mg Q15M PRN IM DECREASED GLUCOSE; Start 08/10/18 at 05:30 Glucose (Glutose) 15 gm Q15M PRN BUCCAL DECREASED GLUCOSE; Start 08/10/18 at 05:30 Insulin Aspart (Novolog Insulin Pen) NOVOLOG *MILD* ALGORI... AC MEALS AND BEDTIME SC Last administered on 08/12/18 12:51; Admin Dose 1 UNIT; Start 08/10/18 at 08:00 Diagnostic Test (Pha) (Accu-Chek) 1 ea 02 XX Last administered on 08/11/18 01: 56; Admin Dose 1 EA; Start 08/11/18 at 02:00 Insulin Glargine (Lantus) 20 units DAILY@0800 SC Last administered on 08/12/18 07:52; Admin Dose 20 UNITS; Start 08/11/18 at 08:00 Insulin Aspart (Novolog Insulin Pen) 10 unit WITH MEALS SC Last administered on 08/12/18 12:51; Admin Dose 10 UNIT; Start 08/11/18 at 08:00 Heparin Sodium (Porcine) (Heparin (1000 Units/ml)) 4,700 unit AFTER DIALYSIS CATHETER Last administered on 08/12/18 14:01; Admin Dose 4,700 UNIT; Start 08/10/18 at 22:00 Azithromycin (Zithromax) 500 mg DAILY PO Last administered on 08/12/18 09:01; Admin Dose 500 MG; Start 08/12/18 at 09:00; Stop 08/16/18 at 08:59 Docusate Sodium (Colace) 100 mg DAILY PO Last administered on 08/12/18 09:01; Admin Dose 100 MG; Start 08/12/18 at 09:00 Tramadol HCl (Ultram) 50 mg Q12H PRN PO PAIN; Start 08/11/18 at 13:30 Diclofenac Sodium (Voltaren 1% Gel) 2 gm BID TP Last administered on 08/12/18at 09:01; Admin Dose 2 GM; Start 08/11/18 at 21:00 Vancomycin HCl 250 ml @ 125 mls/hr ONCE IVPB ; Start 08/12/18 at 22:00; Stop 08/12/18 at 23:59 Acetaminophen/ Hydrocodone Bitart ([place] (5/325)) 1 tab Q4H PRN PO MODERATE PAIN LEVEL 4-6 Last administered on 08/12/18at 14:48; Admin Dose 1 TAB; Start 08/12 at 15:00 DARELL JAMES MD August 12, 2018 14:54
[2018-08-12] MEDS: DILTIAZEM (CD) 120 MG CAP PO SCH (16:41)
[2018-08-12] MEDS: FUROSEMIDE 20 MG TAB PO SCH (16:42)
[2018-08-12] MEDS: METOPROLOL 25 MG TAB PO SCH ×2 (16:42→20:37)
--- NOTE | 2018-08-12 18:50 | CONS ---
Assessment/Plan Assessment/Plan Hospital Course (Demo Recall) IMPRESSION: 1. Positive troponin, assess significance in the setting of renal failure, likely type 2 demand infarct in the setting of pneumonia. 2. Atrial fibrillation, rate controlled. 3. Abnormal electrocardiogram, assess for true acute coronary syndrome. 4. Hypertension, well controlled. 5. End-stage renal disease, on hemodialysis. 6. Nausea. 7. Left lower lobe pneumonia. 8. Peripheral arterial disease with nonhealing lower extremity ulcer. Recc: -Tele -Continue dilt/BB with rate controled AF -Contineu eliquis -Now started on oral nitrates for chest pain -continue abx's -consider lexiscan to assess significance of positive troponin in the setting of renal failure -HD for volume removal -RX anxiety Consultation Date/Type/Reason Admit Date/Time August 09, 2018 at 17:42 Initial Consult Date 08/10/18 Type of Consult Cardiology Reason for Consultation positive troponin Requesting Provider: KIRSTIN SPANN MD Date/Time of Note DATE: 08/12/18 TIME: 18:44 Exam/Review of Systems Vital Signs Vitals Vital Signs Date Temp Pulse Resp B/P (MAP) Pulse Ox O2 O2 Flow FiO2 Time Delivery Rate 08/12/18 82 16:00 08/12/18 98.3 20 162/87 92 15:39 (112) 08/12/18 Nasal 2.0 10:15 Cannula 08/09/18 21 17:51 Intake and Output 08/11/18 08/11/18 08/12/18 1515:00 23:00 07:00 IntakeIntake Total 500 ml BalanceBalance 500 ml Exam Exam Review of Systems: CONSTITUTIONAL: No fevers, chills. PULMONARY: c/o sob CARDIOVASCULAR: c/o chest pain GASTROINTESTINAL: No nausea/vomiting. GENITOURINARY: No hematuria/dysuria. MUSCULOSKELETAL: No myagias/arthalgias. PSYCHIATRIC: The patient denies depression. NEUROLOGIC: No weakness Constitutional: alert Psych: anxiety Head: normocephalic ENMT: mucosa pink and moist Neck: supple, non-tender Respiratory: diminished breath sounds (at bases/B) Cardiovascular: irregular rhythm Gastrointestinal: soft, non-tender Musculoskeletal: muscle tone (normal) Extremities: edema (none) Neurological: other (No focal deficitsa) Labs Result Diagram: 08/12/18 0527 08/12/18 0527 Results 24hrs Laboratory Tests Test 08/11/18 21:25 08/12/18 05:27 08/12/18 07:46 08/12/18 12:47 Bedside Glucose 85 146 160 White Blood Count 3.5 L Red Blood Count 2.68 L Hemoglobin 9.0 L Hematocrit 29.5 L Mean Corpuscular Volume 110.1 H Mean Corpuscular 33.6 H Hemoglobin Mean Corpuscular 30.5 L Hemoglobin Concent Red Cell Distribution 16.7 H Width Platelet Count 196 Mean Platelet Volume 11.2 H Immature Granulocytes % 0.300 Neutrophils % 53.9 Lymphocytes % 22.6 Monocytes % 18.3 H Eosinophils % 4.6 Basophils % 0.3 Nucleated Red Blood 0.0 Cells % Immature Granulocytes # 0.010 Neutrophils # 1.9 Lymphocytes # 0.8 Monocytes # 0.6 Eosinophils # 0.2 Basophils # 0.0 Nucleated Red Blood 0.0 Cells # Sodium Level 139 Potassium Level 5.2 H Chloride Level 99 Carbon Dioxide Level 25 Anion Gap 15 H Blood Urea Nitrogen 69 H Creatinine 8.11 H Est Glomerular Filtrat 5 L Rate mL/min Glucose Level 128 Calcium Level 8.3 L Creatine Kinase 43 Creatine Kinase Index 6.0 Creatinine Kinase MB 2.60 H (Mass) Troponin I 0.370 *H Triglycerides Level 234 H Cholesterol Level 136 LDL Cholesterol, 60 Calculated HDL Cholesterol 29 L Cholesterol/HDL Ratio 4.6 Random Vancomycin Level 15.9 Test 08/12/18 16:44 Bedside Glucose 73 Medications Medications Current Medications Buspirone HCl (Buspar) 10 mg TID PO Last administered on 08/12/18 13:11; Admin Dose 10 MG; Start 08/10/18 at 09:00 Diltiazem HCl (Cardizem Cd) 120 mg DAILY PO Last administered on 08/12/18 16:41; Admin Dose 120 MG; Start 08/10/18 at 09:00 Furosemide (Lasix) 20 mg DAILY PO Last administered on 08/12/18 16:42; Admin Dose 20 MG; Start 08/10/18 at 09:00 Gabapentin (Neurontin) 300 mg TID PO Last administered on 08/12/18 14:48; Admin Dose 300 MG; Start 08/10/18 at 09:00 Methocarbamol (Robaxin) 500 mg DAILY PO Last administered on 08/11/18 08:05; Admin Dose 500 MG; Start 08/10/18 at 09:00 Metoprolol Tartrate (Lopressor) 25 mg BID PO Last administered on 08/12/18 16:42; Admin Dose 25 MG; Start 08/10/18 at 09:00 Pantoprazole (Protonix Tab) 40 mg AC BREAKFAST PO Last administered on 08/12/18 06:07; Admin Dose 40 MG; Start 08/10/18 at 07:00 Sevelamer Carbonate (Renvela) 1.6 gm WITH MEALS PO Last administered on 08/12/18 16:43; Admin Dose 1.6 GM; Start 08/10/18 at 08:00 Apixaban (Eliquis) 5 mg BID PO Last administered on 08/12/18 09:01; Admin Dose 5 MG; Start 08/10/18 at 09:00 Vancomycin HCl (Vanco Iv Per Pharmacy) VANCOMYCIN PER PHARMACY PER PROTOCOL XX ; Start 08/09/18 at 23:30 Cefepime HCl 50 ml @ 100 mls/hr Q24H IVPB Last administered on 08/12/18 09:00; Admin Dose 100 MLS/HR; Start 08/10/18 at 09:00 Acetaminophen (Tylenol Tab) 650 mg Q6H PRN PO MILD PAIN(1-3)OR ELEVATED TEMP Last administered on 08/12/18 12:09; Admin Dose 650 MG; Start 08/09/18 at 23:30 Morphine Sulfate (morphine) 2 mg Q4H PRN IV SEVERE PAIN LEVEL 7-10 Last administered on 08/11/18 05:01; Admin Dose 2 MG; Start 08/09/18 at 23:30 Guaifenesin/ Codeine Phosphate (Robitussin Ac Liquid Cup) 10 ml Q4H PRN PO COUGH Last administered on 08/12/18 12:46; Admin Dose 10 ML; Start 08/09/18 at 23:30 Miscellaneous Information 1 ea NOTE XX ; Start 08/10/18 at 05:30 Glucose (Glutose) 15 gm Q15M PRN PO DECREASED GLUCOSE; Start 08/10/18 at 05:30 Glucose (Glutose) 22.5 gm Q15M PRN PO DECREASED GLUCOSE; Start 08/10/18 at 05:30 Dextrose (D50w Syringe) 25 ml Q15M PRN IV DECREASED GLUCOSE; Start 08/10/18 at 05:30 Dextrose (D50w Syringe) 50 ml Q15M PRN IV DECREASED GLUCOSE; Start 08/10/18 at 05:30 Glucagon (Glucagen) 1 mg Q15M PRN IM DECREASED GLUCOSE; Start 08/10/18 at 05:30 Glucose (Glutose) 15 gm Q15M PRN BUCCAL DECREASED GLUCOSE; Start 08/10/18 at 05:30 Insulin Aspart (Novolog Insulin Pen) NOVOLOG *MILD* ALGORI... AC MEALS AND BEDTIME SC Last administered on 08/12/18 12:51; Admin Dose 1 UNIT; Start 08/10/18 at 08:00 Diagnostic Test (Pha) (Accu-Chek) 1 ea 02 XX Last administered on 08/11/18 01:56; Admin Dose 1 EA; Start 08/11/18 at 02:00 Insulin Glargine (Lantus) 20 units DAILY@0800 SC Last administered on 08/12/18 07:52; Admin Dose 20 UNITS; Start 08/11/18 at 08:00 Insulin Aspart (Novolog Insulin Pen) 10 unit WITH MEALS SC Last administered on 08/12/18 16:56; Admin Dose 10 UNIT; Start 08/11/18 at 08:00 Heparin Sodium (Porcine) (Heparin (1000 Units/ml)) 4,700 unit AFTER DIALYSIS CATHETER Last administered on 08/12/18 14:01; Admin Dose 4,700 UNIT; Start 08/10/18 at 22:00 Azithromycin (Zithromax) 500 mg DAILY PO Last administered on 08/12/18 09:01; Admin Dose 500 MG; Start 08/12/18 at 09:00; Stop 08/16/18 at 08:59 Docusate Sodium (Colace) 100 mg DAILY PO Last administered on 08/12/18 09:01; Admin Dose 100 MG; Start 08/12/18 at 09:00 Tramadol HCl (Ultram) 50 mg Q12H PRN PO PAIN; Start 08/11/18 at 13:30 Diclofenac Sodium (Voltaren 1% Gel) 2 gm BID TP Last administered on 08/12/18 09:01; Admin Dose 2 GM; Start 08/11/18 at 21:00 Vancomycin HCl 250 ml @ 125 mls/hr ONCE IVPB ; Start 08/12/18 at 22:00; Stop 08/12/18 at 23:59 Acetaminophen/ Hydrocodone Bitart ([place] (5/325)) 1 tab Q4H PRN PO MODERATE PAIN LEVEL 4-6 Last administered on 08/12/18at 14:48; Admin Dose 1 TAB; Start 08/12/18 at 15:00 Isosorbide Dinitrate (Isordil) 10 mg TID PO ; Start 08/12/18 at 21:00 GERTRUDIS GUILLERMO August 12, 2018 18:50
--- NOTE | 2018-08-12 19:09 | RADRPT ---
Vent Rate: 79 bpm RR Interval: 755 msec VA Interval: [id number] msec QRS Duration: 90 msec QT Interval: 400 msec QTC Interval: 460 msec P-R-T [place]: [id number] - -11 - 175 degrees sinus Probable LVH with secondary repol abnrm...multiple LVH criteria Electronically Signed By: Lázaro Verduzco
[2018-08-12] MEDS: ISOSORBIDE DINITRATE 10 MG TAB PO SCH (20:36)
[2018-08-12] MEDS ORDERED: VANCOMYCIN 1 GM 250 ML IVPB SCH (22:00)
[2018-08-12] MEDS: LORAZEPAM 2 MG INJ IV PRN (22:50)
[2018-08-13] VITALS (12 sets, daily range): BP systolic 103–187; BP diastolic 54–72; PULSE 37–82; RESP 18–20
[2018-08-13] MEDS: ACCU-CHEK XX SCH (02:00)
[2018-08-13] MEDS: ACETAMINOPHEN 325 MG TAB PO PRN (06:15)
[2018-08-13] MEDS: GUAIFENESIN/CODEINE 5ML CUP PO PRN (06:15)
[2018-08-13] MEDS: INSULIN ASPART [NOVOLOG] 3 ML PEN SC SCH ×7 (08:00→21:00)
[2018-08-13] MEDS: SEVELAMER CARBONATE 0.8 GM PKT PO SCH ×3 (08:06→17:26)
[2018-08-13] MEDS: CEFEPIME 1GM/50 ML (PMX) 50 ML IVPB SCH (08:06)
[2018-08-13] MEDS: DOCUSATE SODIUM 100 MG CAP PO SCH (08:07)
[2018-08-13] MEDS: APIXABAN 5 MG TABLET PO SCH ×2 (08:07→21:58)
[2018-08-13] MEDS: GABAPENTIN 300 MG CAP PO SCH ×3 (08:08→21:57)
[2018-08-13] MEDS: METOPROLOL 25 MG TAB PO SCH ×2 (08:08→21:57)
[2018-08-13] MEDS: METHOCARBAMOL 500 MG TAB PO SCH (08:08)
[2018-08-13] MEDS: AZITHROMYCIN 500 MG TAB PO SCH (08:08)
[2018-08-13] MEDS: BUSPIRONE 10 MG TAB PO SCH ×3 (08:08→21:57)
[2018-08-13] MEDS: FUROSEMIDE 20 MG TAB PO SCH (08:08)
[2018-08-13] MEDS: ISOSORBIDE DINITRATE 10 MG TAB PO SCH ×3 (08:09→21:57)
[2018-08-13] MEDS: DILTIAZEM (CD) 120 MG CAP PO SCH (08:09)
[2018-08-13] MEDS: PANTOPRAZOLE (EC) 40 MG TAB PO SCH (08:09)
[2018-08-13] MEDS: DICLOFENAC SODIUM 1% GEL 100 GM TUBE TP SCH ×2 (08:12→21:59)
[2018-08-13] MEDS: INSULIN GLARGINE [LANTus] (100 UNITS/ML) SYG SC SCH (08:20)
--- NOTE | 2018-08-13 09:44 | CONS ---
Consult Date/Type/Reason Admit Date/Time August 09, 2018 at 17:42 Initial Consult Date 08/10/18 Requesting Provider: KIRSTIN SPANN MD Date/Time of Note DATE: 08/13/18 TIME: 09:40 Subjective NO acute events - pt very emotional - refused stress test - I spoke with her a while - she said she wik think about it - plan to check troponin now - type II ischemia likely. HD a needed. ROS: No fever, no chills, no nausea, no vomiting, no diarrhea/constipation No recent weight changes No chest pain, no PND, no orthopnea _ NO CP now, + SOB No dizziness, blurred vision No thirst, no heat or cold intolerance Objective Vitals Vital Signs Date Temp Pulse Resp B/P (MAP) Pulse Ox O2 O2 Flow FiO2 Time Delivery Rate 08/13/18 69 08:40 08/13/18 98.3 20 135/60 93 07:25 (85) 08/12/18 Nasal 2.0 20:00 Cannula 08/09/18 21 17:51 Intake and Output 08/12/18 08/12/18 08/13/18 1515:00 23:00 07:00 IntakeIntake Total 600 ml 700 ml OutputOutput Total 3500 ml 900 ml BalanceBalance -3500 ml -300 ml 700 ml Exam General: WN/WD/NAD, AOx 3 HEENT: Unicetric/atraumatic/EOMI ( follow commands) NECK: JVD elevated, no thyromegaly Lymph: no lymphadenopathy HEART: IRRE IRREG with no S3, II/ systolic murmur at apex, PMI L LUNGS: Coarse sounds ABD: soft, NT, ND, +BS : Intact Neuro: non focal SKIN: chronic changes EXT: 1+ edema Results/Medications Result Diagram: 08/12/18 0527 08/12/18526 Results 24 hrs Laboratory Tests Test 08/12/18 12:47 08/12/18 16:44 08/12/18 20:34 08/13/18 02:15 Bedside Glucose 160 73 104 186 Test 08/13/18 05:00 08/13/18 08:02 Procalcitonin 2.71 H Bedside Glucose 143 Home Meds Reported Medications Metoprolol Tartrate* (Lopressor*) 25 Mg Tab, 25 MG PO BID, #60 TAB 08/09/18 Pantoprazole* (Pantoprazole*) 40 Mg Tablet.dr, 40 MG PO AC BREAKFAST, TAB 08/09/18 Diltiazem Hcl* (Diltiazem XT) 120 Mg Capsule.sa, 120 MG PO DAILY, #30 CAP 08/09/18 Amlodipine Besylate* (Norvasc*) 5 Mg Tablet, 5 MG PO DAILY, TAB 08/09/18 Buspirone Hcl* (Buspirone Hcl*) 10 Mg Tab, 10 MG PO TID, TAB 08/09/18 Furosemide* (Furosemide*) 20 Mg Tablet, 20 MG PO DAILY, #60 TAB 08/09/18 Gabapentin* (Gabapentin*) 300 Mg Capsule, 300 MG PO TID, #90 CAP 08/09/18 Methocarbamol* (Methocarbamol*) 500 Mg Tablet, 500 MG PO DAILY, TAB 08/09/18 Sevelamer Hcl* (Renagel*) 800 Mg Tablet, 1600 MG PO WITH MEALS, TAB 08/09/18 Apixaban* (Eliquis*) 5 Mg Tablet, 5 MG PO BID, TAB 08/09/18 Discontinued Reported Medications Insulin Aspart* (Novolog Insulin Pen*) 100 Unit/Ml Soln, 0 SC .SLIDING SCALE AC, EA 06/17/17 Insulin Glargine* (Lantus*) 100 Unit/Ml Soln, 40 UNIT SC QHS, #1 VIAL 06/17/17 Discontinued Scripts Oseltamivir Phosphate* (Tamiflu*) 30 Mg Capsule, 30 MG PO DAILY for 2 Days, CAP Prov:VIOLET RUDOLPH 07/02/17 Menthol/Methyl Salicylate (Analgesic [place]) 28 Gm Oint...g., 1 APPLIC TOP TID PRN for PAIN, #1 Prov:VIOLET RUDOLPH 07/02/17 Lactulose* (Lactulose*) 20 Gm/30 Ml Solution, 30 GM PO BID PRN for CONSTIPATION for 30 Days Prov:VIOLET RUDOLPH 07/02/17 Hydrocodone Bit-Acetaminophen (Hydrocodone Bit-APAP) 5-325MG Tablet, 1 TAB PO Q6H PRN for MODERATE PAIN LEVEL 4-6, #20 TAB Prov:VIOLET RUDOLPH 07/02/17 Duloxetine Hcl* (Cymbalta*) 30 Mg Capsule.dr, 30 MG PO BID for 30 Days Prov:VIOLET RUDOLPH 07/02/17 Docusate Sodium (Dok) 100 Mg Capsule, 100 MG PO Q12H PRN for CONSTIPATION for 30 Days, CAP Prov:VIOLET RUDOLPH 07/02/17 Buspirone Hcl* (Buspar*) 5 Mg Tab, 5 MG PO BID for 30 Days, TAB Prov:VIOLET RUDOLPH 07/02/17 Albuterol Sulfate* (Ventolin HFA*) 18 Gm Hfa.aer.ad, 2 PUFF INHALATION Q6H RESP THERAPY, #1 Prov:VIOLET RUDOLPH 07/02/17 Alprazolam* (Alprazolam*) 0.25 Mg Tablet, 0.25 MG PO Q6H PRN for ANXIETY, #30 TAB Prov:ANTHONY DUPREE 02/04/17 Apixaban* (Eliquis*) 5 Mg Tablet, 2.5 MG PO BID for 30 Days, TAB Prov:ANTHONY DUPREE 02/04/17 Hydrocodone/Acetaminophen (Hydrocodon-Acetaminoph 7.5-325) 1 Each Tablet, 1 TAB PO Q6H PRN for pain, #30 TAB Prov:ANTHONY DUPREE 02/04/17 Albuterol Sulfate* (Ventolin HFA*) 18 Gm Hfa.aer.ad, 2 PUFF INHALATION Q4H for 30 Days, #1 INHALER Prov:ANTHONY DUPREE 02/04/17 Linagliptin (TRADJENTA) 5 Mg Tablet, 5 MG PO DAILY for 30 Days, TAB Prov:ANTHONY DUPREE 02/04/17 Pantoprazole* (Pantoprazole*) 40 Mg Tablet.dr, 40 MG PO AC BREAKFAST for 30 Days, TAB Prov:ANTHONY DUPREE 02/04/17 Sevelamer Carbonate* (Renvela*) 800 Mg Tablet, 0.8 GM PO WITH MEALS for 30 Days, TAB Prov:ANTHONY DUPREE 02/04/17 Multivit/Ca Carb/B Cmplx/Fa* (Addie-Mikayla*) 1 Tab Tab, 1 TAB PO DAILY for 30 Days, TAB Prov:ANTHONY DUPREE 02/04/17 Folic Acid* (Folic Acid*) 1 Mg Tablet, 1 MG PO DAILY for 30 Days, TAB [facility] 02/04/17 Clonidine Hcl* (Clonidine Hcl*) 0.2 Mg Tablet, 0.2 MG PO TID PRN for HTN for 30 Days, TAB [facility] 02/04/17 Clopidogrel Bisulfate* (Clopidogrel Bisulfate*) 75 Mg Tablet, 75 MG PO DAILY, #30 TAB [facility] 02/04/17 Carvedilol* (Carvedilol*) 6.25 Mg Tablet, 6.25 MG PO DAILY, #60 TAB [facility] 02/04/17 Gabapentin* (Gabapentin*) 300 Mg Capsule, 300 MG PO BID, #60 CAP [facility] 02/04/17 Atorvastatin* (Atorvastatin*) 40 Mg Tablet, 40 MG PO QHS, #30 TAB [facility] 02/04/17 Amlodipine Besylate* (Amlodipine Besylate*) 10 Mg Tablet, 10 MG PO DAILY, #30 TAB [facility] 02/04/17 Medications Current Medications Buspirone HCl (Buspar) 10 mg TID PO Last administered on 08/13/18 08:08; Admin Dose 10 MG; Start 08/10/18 at 09:00 Diltiazem HCl (Cardizem Cd) 120 mg DAILY PO Last administered on 08/13/18 08:09; Admin Dose 120 MG; Start 08/10/18 at 09:00 Furosemide (Lasix) 20 mg DAILY PO Last administered on 08/13/18 08:08; Admin Dose 20 MG; Start 08/10/18 at 09:00 Gabapentin (Neurontin) 300 mg TID PO Last administered on 08/13/18 08:08; Admin Dose 300 MG; Start 08/10/18 at 09:00 Methocarbamol (Robaxin) 500 mg DAILY PO Last administered on 08/13/18 08:08; Admin Dose 500 MG; Start 08/10/18 at 09:00 Metoprolol Tartrate (Lopressor) 25 mg BID PO Last administered on 08/13/18 08: 08; Admin Dose 25 MG; Start 08/10/18 at 09:00 Pantoprazole (Protonix Tab) 40 mg AC BREAKFAST PO Last administered on 08/13/18 08:09; Admin Dose 40 MG; Start 08/10/18 at 07:00 Sevelamer Carbonate (Renvela) 1.6 gm WITH MEALS PO Last administered on 08/13/18 08:06; Admin Dose 1.6 GM; Start 08/10/18 at 08:00 Apixaban (Eliquis) 5 mg BID PO Last administered on 08/13/18at 08:07; Admin Dose 5 MG; Start 08/10/18 at 09:00 Vancomycin HCl (Vanco Iv Per Pharmacy) VANCOMYCIN PER PHARMACY PER PROTOCOL XX ; Start 08/09/18 at 23:30 Cefepime HCl 50 ml @ 100 mls/hr Q24H IVPB Last administered on 08/13/18 08 :06; Admin Dose 100 MLS/HR; Start 08/10/18 at 09:00 Acetaminophen (Tylenol Tab) 650 mg Q6H PRN PO MILD PAIN(1-3)OR ELEVATED TEMP Last administered on 08/13/18at 06:15; Admin Dose 650 MG; Start 08/09/18 at 23:30 Morphine Sulfate (morphine) 2 mg Q4H PRN IV SEVERE PAIN LEVEL 7-10 Last administered on 08/11/18 05:01; Admin Dose 2 MG; Start 08/09/18 at 23:30 Guaifenesin/ Codeine Phosphate (Robitussin Ac Liquid Cup) 10 ml Q4H PRN PO COUGH Last administered on 08/13/18 06:15; Admin Dose 10 ML; Start 08/09/18 at 23:30 Miscellaneous Information 1 ea NOTE XX ; Start 08/10/18 at 05:30 Glucose (Glutose) 15 gm Q15M PRN PO DECREASED GLUCOSE; Start 08/10/18 at 05:30 Glucose (Glutose) 22.5 gm Q15M PRN PO DECREASED GLUCOSE; Start 08/10/18 at 05:30 Dextrose (D50w Syringe) 25 ml Q15M PRN IV DECREASED GLUCOSE; Start 08/10/18 at 05:30 Dextrose (D50w Syringe) 50 ml Q15M PRN IV DECREASED GLUCOSE; Start 08/10/18 at 05:30 Glucagon (Glucagen) 1 mg Q15M PRN IM DECREASED GLUCOSE; Start 08/10/18 at 05:30 Glucose (Glutose) 15 gm Q15M PRN BUCCAL DECREASED GLUCOSE; Start 08/10/18 at 05:30 Insulin Aspart (Novolog Insulin Pen) NOVOLOG *MILD* ALGORI... AC MEALS AND BEDTIME SC Last administered on 08/13/18 08:20; Admin Dose 1 UNIT; Start 08/10/18 at 08:00 Diagnostic Test (Pha) (Accu-Chek) 1 ea 02 XX Last administered on 08/11/18 01:56; Admin Dose 1 EA; Start 08/11/18 at 02:00 Insulin Glargine (Lantus) 20 units DAILY@0800 SC Last administered on 08/13/18 08:20; Admin Dose 20 UNITS; Start 08/11/18 at 08:00 Insulin Aspart (Novolog Insulin Pen) 10 unit WITH MEALS SC Last administered on 08/12/18 16:56; Admin Dose 10 UNIT; Start 08/11/18 at 08:00 Heparin Sodium (Porcine) (Heparin (1000 Units/ml)) 4,700 unit AFTER DIALYSIS CATHETER Last administered on 08/12/18 14:01; Admin Dose 4,700 UNIT; Start 08/10/18 at 22:00 Azithromycin (Zithromax) 500 mg DAILY PO Last administered on 08/13/18 08:08; Admin Dose 500 MG; Start 08/12/18 at 09:00; Stop 08/16/18 at 08:59 Docusate Sodium (Colace) 100 mg DAILY PO Last administered on 08/13/18 08:07; Admin Dose 100 MG; Start 08/12/18 at 09:00 Tramadol HCl (Ultram) 50 mg Q12H PRN PO PAIN; Start 08/11/18 at 13:30 Diclofenac Sodium (Voltaren 1% Gel) 2 gm BID TP Last administered on 08/13/18 08:12; Admin Dose 2 GM; Start 08/11/18 at 21:00 Acetaminophen/ Hydrocodone Bitart ([place] (5/325)) 1 tab Q4H PRN PO MODERATE PAIN LEVEL 4-6 Last administered on 08/12/18 20:44; Admin Dose 1 TAB; Start 08/12/18 at 15:00 Isosorbide Dinitrate (Isordil) 10 mg TID PO Last administered on 08/13/18at 08:09; Admin Dose 10 MG; Start 08/12/18 at 21:00 Lorazepam (Ativan) 1 mg Q6H PRN IV ANXIETY Last administered on 08/12/18at 22:50; Admin Dose 1 MG; Start 08/12/18 at 22:30 Assessment/Plan Hospital Course (Demo Recall) 1. Positive troponin, assess significance in the setting of renal failure, likely type 2 demand infarct in the setting of pneumoni - declined Stress test - donna re-evaluate with another set of troponins. 2. Atrial fibrillation, rate controlled - con't to follow. 3. Abnormal electrocardiogram, assess for true acute coronary syndrome. NO CP - refused stress test. 4. Hypertension, well controlled - HD to follow. 5. End-stage renal disease, on hemodialysis. 6. Nausea- better now. 7. Left lower lobe pneumonia - on anti-Bx, con't med rx. 8. Peripheral arterial disease with nonhealing lower extremity ulcer. MARY JO AGUIRRE MD August 13, 2018 09:44
--- NOTE | 2018-08-13 10:13 | PN ---
Date/Time of Note Date/Time of Note DATE: 08/13/18 TIME: 10:13 Assessment/Plan VTE Prophylaxis Risk score (from Ns)>0 risk: 3 SCD applied (from Ns): No Lines/Catheters IV [facility] Type [facility]from [facility] [place] Urinary Cath still in place: No Assessment/Plan Assessment/Plan -Healthcare associated pneumonia, continue broad-spectrum antibiotics, Dr. Lucas is following in infection disease consultation. -Hyperkalemia -Dialysis dependent end-stage renal disease. Dr. Spicer is following in nephrology consultation. -Elevated troponin, Dr. William is following in cardiology consultation. -Atrial fibrillation, continue metoprolol and Eliquis. -Anemia of chronic disease -Diabetes mellitus type 2 with hemoglobin A1c of 6.5, continue Lantus and NovoLog -Peripheral vascular disease history of left lower extremity bypass surgery. -Right foot ulcer. Dr. Pineda is following and podiatry consultation. Disposition: to assisted living facility when symptoms resolve and cleared by consultants. Further recommendations based on clinical course. Plan of care discussed with Dr. Cordero. Result Diagram: 08/12/18 0527 08/12/1827 Results 24hrs Laboratory Tests Test 08/12/18 12:47 08/12/18 16:44 08/12/18 20:34 08/13/18 02:15 Bedside Glucose 160 73 104 186 Test 08/13/18 05:00 08/13/18 08:02 Procalcitonin 2.71 H Bedside Glucose 143 Subjective 24 Hr Interval Summary Free Text/Dictation HD yesterday Exam/Review of Systems Exam Vitals Vital Signs Date Temp Pulse Resp B/P (MAP) Pulse Ox O2 O2 Flow FiO2 Time Delivery Rate 08/13/18 69 08:40 08/13/18 98.3 20 135/60 93 07:25 (85) 08/12/18 Nasal 2.0 20:00 Cannula 08/09/18 21 17:51 Intake and Output 08/12/18 08/12/18 08/13/18 1515:00 23:00 07:00 IntakeIntake Total 600 ml 700 ml OutputOutput Total 3500 ml 900 ml BalanceBalance -3500 ml -300 ml 700 ml Results Results 24hrs Laboratory Tests Test 08/12/18 12:47 08/12/18 16:44 08/12/18 20:34 08/13/18 02:15 Bedside Glucose 160 73 104 186 Test 08/13/18 05:00 08/13/18 08:02 Procalcitonin 2.71 H Bedside Glucose 143 Medications Medication Current Medications Buspirone HCl (Buspar) 10 mg TID PO Last administered on 08/13/18 08:08; Admin Dose 10 MG; Start 08/10/18 at 09:00 Diltiazem HCl (Cardizem Cd) 120 mg DAILY PO Last administered on 08/13/18 08:09; Admin Dose 120 MG; Start 08/10/18 at 09:00 Furosemide (Lasix) 20 mg DAILY PO Last administered on 08/13/18 08:08; Admin Dose 20 MG; Start 08/10/18 at 09:00 Gabapentin (Neurontin) 300 mg TID PO Last administered on 08/13/18 08:08; Admin Dose 300 MG; Start 08/10/18 at 09:00 Methocarbamol (Robaxin) 500 mg DAILY PO Last administered on 08/13/18 08:08; Admin Dose 500 MG; Start 08/10/18 at 09:00 Metoprolol Tartrate (Lopressor) 25 mg BID PO Last administered on 08/13/18 08:08; Admin Dose 25 MG; Start 08/10/18 at 09:00 Pantoprazole (Protonix Tab) 40 mg AC BREAKFAST PO Last administered on 08/13/18 08:09; Admin Dose 40 MG; Start 08/10/18 at 07:00 Sevelamer Carbonate (Renvela) 1.6 gm WITH MEALS PO Last administered on 08/13/18 08:06; Admin Dose 1.6 GM; Start 08/10/18 at 08:00 Apixaban (Eliquis) 5 mg BID PO Last administered on 08/13/18 08:07; Admin Dose 5 MG; Start 08/10/18 at 09:00 Vancomycin HCl (Vanco Iv Per Pharmacy) VANCOMYCIN PER PHARMACY PER PROTOCOL XX ; Start 08/09/18 at 23:30 Cefepime HCl 50 ml @ 100 mls/hr Q24H IVPB Last administered on 08/13/18 08:06; Admin Dose 100 MLS/HR; Start 08/10/18 at 09:00 Acetaminophen (Tylenol Tab) 650 mg Q6H PRN PO MILD PAIN(1-3)OR ELEVATED TEMP Last administered on 08/13/18 06:15; Admin Dose 650 MG; Start 08/09/18 at 23:30 Morphine Sulfate (morphine) 2 mg Q4H PRN IV SEVERE PAIN LEVEL 7-10 Last administered on 08/11/18 05:01; Admin Dose 2 MG; Start 08/09/18 at 23:30 Guaifenesin/ Codeine Phosphate (Robitussin Ac Liquid Cup) 10 ml Q4H PRN PO COUGH Last administered on 08/13/18 06:15; Admin Dose 10 ML; Start 08/09/18 at 23:30 Miscellaneous Information 1 ea NOTE XX ; Start 08/10/18 at 05:30 Glucose (Glutose) 15 gm Q15M PRN PO DECREASED GLUCOSE; Start 08/10/18 at 05:30 Glucose (Glutose) 22.5 gm Q15M PRN PO DECREASED GLUCOSE; Start 08/10/18 at 05:30 Dextrose (D50w Syringe) 25 ml Q15M PRN IV DECREASED GLUCOSE; Start 08/10/18 at 05:30 Dextrose (D50w Syringe) 50 ml Q15M PRN IV DECREASED GLUCOSE; Start 08/10/18 at 05:30 Glucagon (Glucagen) 1 mg Q15M PRN IM DECREASED GLUCOSE; Start 08/10/18 at 05:30 Glucose (Glutose) 15 gm Q15M PRN BUCCAL DECREASED GLUCOSE; Start 08/10/18 at 05:30 Insulin Aspart (Novolog Insulin Pen) NOVOLOG *MILD* ALGORI... AC MEALS AND BEDTIME SC Last administered on 08/13/18at 08:20; Admin Dose 1 UNIT; Start 08/10/18 at 08:00 Diagnostic Test (Pha) (Accu-Chek) 1 ea 02 XX Last administered on 08/11/18at 01:56; Admin Dose 1 EA; Start 08/11/18 at 02:00 Insulin Glargine (Lantus) 20 units DAILY@0800 SC Last administered on 08/13/18 08:20; Admin Dose 20 UNITS; Start 08/11/18 at 08:00 Insulin Aspart (Novolog Insulin Pen) 10 unit WITH MEALS SC Last administered on 08/12/18at 16:56; Admin Dose 10 UNIT; Start 08/11/18 at 08:00 Heparin Sodium (Porcine) (Heparin (1000 Units/ml)) 4,700 unit AFTER DIALYSIS CATHETER Last administered on 08/12/18 14:01; Admin Dose 4,700 UNIT; Start 08/10/18 at 22:00 Azithromycin (Zithromax) 500 mg DAILY PO Last administered on 08/13/18 08:08; Admin Dose 500 MG; Start 08/12/18 at 09:00; Stop 08/16/18 at 08:59 Docusate Sodium (Colace) 100 mg DAILY PO Last administered on 08/13/18 08:07; Admin Dose 100 MG; Start 08/12/18 at 09:00 Tramadol HCl (Ultram) 50 mg Q12H PRN PO PAIN; Start 08/11/18 at 13:30 Diclofenac Sodium (Voltaren 1% Gel) 2 gm BID TP Last administered on 08/13/18 08:12; Admin Dose 2 GM; Start 08/11/18 at 21:00 Acetaminophen/ Hydrocodone Bitart ([place] (5/325)) 1 tab Q4H PRN PO MODERATE PAIN LEVEL 4-6 Last administered on 08/12/18 20:44; Admin Dose 1 TAB; Start 08/12/18 at 15:00 Isosorbide Dinitrate (Isordil) 10 mg TID PO Last administered on 08/13/18 08:09; Admin Dose 10 MG; Start 08/12/18 at 21:00 Lorazepam (Ativan) 1 mg Q6H PRN IV ANXIETY Last administered on 08/12/18 22:50; Admin Dose 1 MG; Start 08/12/18 at 22:30 VIOLET RUDOLPH August 13, 2018 10:13
[2018-08-13] MEDS: LORAZEPAM 2 MG INJ IV PRN (12:22)
--- NOTE | 2018-08-13 13:43 | CONS ---
Assessment/Plan Assessment/Plan Hospital Course (Demo Recall) Case will be coordinated with ENVIRONMENT[employer]PLIANCE OFFICER CHERYL TRINIDAD via [employer] texting and phone call. I reviewed the emr as well and will be directing care shortly. Consultation Date/Type/Reason Admit Date/Time August 09, 2018 at 17:42 Initial Consult Date Type of Consult id Requesting Provider: KIRSTIN SPANN MD Date/Time of Note DATE: 08/13/18 TIME: 13:43 Exam/Review of Systems Exam Vitals Vital Signs Date Temp Pulse Resp B/P (MAP) Pulse Ox O2 O2 Flow FiO2 Time Delivery Rate 08/13/18 56 12:10 08/13/18 98.3 20 106/54 95 11:23 (71) 08/13/18 Nasal 2.0 08:20 Cannula 08/09/18 21 17:51 Intake and Output 08/12/18 08/12/18 08/13/18 1515:00 23:00 07:00 IntakeIntake Total 600 ml 700 ml OutputOutput Total 3500 ml 900 ml BalanceBalance -3500 ml -300 ml 700 ml Results Result Diagram: 08/13/18 0500 08/13/18 0500 Results 24hrs Laboratory Tests Test 08/12/18 16:44 08/12/18 20:34 08/13/18 02:15 08/13/18 05:00 Bedside Glucose 73 104 186 White Blood Count 3.2 L Red Blood Count 2.75 L Hemoglobin 9.3 L Hematocrit 30.5 L Mean Corpuscular 110.9 H Volume Mean Corpuscular 33.8 H Hemoglobin Mean Corpuscular 30.5 L Hemoglobin Concent Red Cell 17.1 H Distribution Width Platelet Count 235 Mean Platelet Volume 11.6 H Immature 0.300 Granulocytes % Neutrophils % 48.2 Lymphocytes % 23.4 Monocytes % 22.5 H Eosinophils % 5.0 Basophils % 0.6 Nucleated Red Blood 0.0 Cells % Immature 0.010 Granulocytes # Neutrophils # 1.5 L Lymphocytes # 0.8 Monocytes # 0.7 Eosinophils # 0.2 Basophils # 0.0 Nucleated Red Blood 0.0 Cells # Sodium Level 139 Potassium Level 4.7 Chloride Level 100 Carbon Dioxide Level 29 Anion Gap 10 # Blood Urea Nitrogen 44 #H Creatinine 5.71 #H Est Glomerular 8 L Filtrat Rate mL/min Glucose Level 160 Calcium Level 8.4 Procalcitonin 2.71 H Test 08/13/18 08:02 08/13/18 10:06 08/13/18 12:18 Bedside Glucose 143 221 H Troponin I 0.220 *H Medications Medication Current Medications Buspirone HCl (Buspar) 10 mg TID PO Last administered on 08/13/18 12:20; Admin Dose 10 MG; Start 08/10/18 at 09:00 Diltiazem HCl (Cardizem Cd) 120 mg DAILY PO Last administered on 08/13/18 08:09; Admin Dose 120 MG; Start 08/10/18 at 09:00 Furosemide (Lasix) 20 mg DAILY PO Last administered on 08/13/18 08:08; Admin Dose 20 MG; Start 08/10/18 at 09:00 Gabapentin (Neurontin) 300 mg TID PO Last administered on 08/13/18 12:21; Admin Dose 300 MG; Start 08/10/18 at 09:00 Methocarbamol (Robaxin) 500 mg DAILY PO Last administered on 08/13/18 08:08; Admin Dose 500 MG; Start 08/10/18 at 09:00 Metoprolol Tartrate (Lopressor) 25 mg BID PO Last administered on 08/13/18 08:08; Admin Dose 25 MG; Start 08/10/18 at 09:00 Pantoprazole (Protonix Tab) 40 mg AC BREAKFAST PO Last administered on 08/13/18 08:09; Admin Dose 40 MG; Start 08/10/18 at 07:00 Sevelamer Carbonate (Renvela) 1.6 gm WITH MEALS PO Last administered on 08/13/18 12:21; Admin Dose 1.6 GM; Start 08/10/18 at 08:00 Apixaban (Eliquis) 5 mg BID PO Last administered on 08/13/18 08:07; Admin Dose 5 MG; Start 08/10/18 at 09:00 Vancomycin HCl (Vanco Iv Per Pharmacy) VANCOMYCIN PER PHARMACY PER PROTOCOL XX ; Start 08/09/18 at 23:30 Cefepime HCl 50 ml @ 100 mls/hr Q24H IVPB Last administered on 08/13/18 08:06; Admin Dose 100 MLS/HR; Start 08/10/18 at 09:00 Acetaminophen (Tylenol Tab) 650 mg Q6H PRN PO MILD PAIN(1-3)OR ELEVATED TEMP Last administered on 08/13/18 06:15; Admin Dose 650 MG; Start 08/09/18 at 23:30 Morphine Sulfate (morphine) 2 mg Q4H PRN IV SEVERE PAIN LEVEL 7-10 Last administered on 08/11/18 05:01; Admin Dose 2 MG; Start 08/09/18 at 23:30 Guaifenesin/ Codeine Phosphate (Robitussin Ac Liquid Cup) 10 ml Q4H PRN PO COUGH Last administered on 08/13/18 06:15; Admin Dose 10 ML; Start 08/09/18 at 23:30 Miscellaneous Information 1 ea NOTE XX ; Start 08/10/18 at 05:30 Glucose (Glutose) 15 gm Q15M PRN PO DECREASED GLUCOSE; Start 08/10/18 at 05:30 Glucose (Glutose) 22.5 gm Q15M PRN PO DECREASED GLUCOSE; Start 08/10/18 at 05:30 Dextrose (D50w Syringe) 25 ml Q15M PRN IV DECREASED GLUCOSE; Start 08/10/18 at 05:30 Dextrose (D50w Syringe) 50 ml Q15M PRN IV DECREASED GLUCOSE; Start 08/10/18 at 05:30 Glucagon (Glucagen) 1 mg Q15M PRN IM DECREASED GLUCOSE; Start 08/10/18 at 05:30 Glucose (Glutose) 15 gm Q15M PRN BUCCAL DECREASED GLUCOSE; Start 08/10/18 at 05:30 Insulin Aspart (Novolog Insulin Pen) NOVOLOG *MILD* ALGORI... AC MEALS AND BEDTIME SC Last administered on 08/13/18at 12:38; Admin Dose 3 UNIT; Start 08/10/18 at 08:00 Diagnostic Test (Pha) (Accu-Chek) 1 ea 02 XX Last administered on 08/11/18at 01:56; Admin Dose 1 EA; Start 08/11/18 at 02:00 Insulin Glargine (Lantus) 20 units DAILY@0800 SC Last administered on 08/13/18 08:20; Admin Dose 20 UNITS; Start 08/11/18 at 08:00 Insulin Aspart (Novolog Insulin Pen) 10 unit WITH MEALS SC Last administered on 08/13/18at 12:38; Admin Dose 10 UNIT; Start 08/11/18 at 08:00 Heparin Sodium (Porcine) (Heparin (1000 Units/ml)) 4,700 unit AFTER DIALYSIS CATHETER Last administered on 08/12/18 14:01; Admin Dose 4,700 UNIT; Start 08/10/18 at 22:00 Azithromycin (Zithromax) 500 mg DAILY PO Last administered on 08/13/18 08:08; Admin Dose 500 MG; Start 08/12/18 at 09:00; Stop 08/16/18 at 08:59 Docusate Sodium (Colace) 100 mg DAILY PO Last administered on 08/13/18 08:07; Admin Dose 100 MG; Start 08/12/18 at 09:00 Tramadol HCl (Ultram) 50 mg Q12H PRN PO PAIN; Start 08/11/18 at 13:30 Diclofenac Sodium (Voltaren 1% Gel) 2 gm BID TP Last administered on 08/13/18 08:12; Admin Dose 2 GM; Start 08/11/18 at 21:00 Acetaminophen/ Hydrocodone Bitart ([place] (5/325)) 1 tab Q4H PRN PO MODERATE PAIN LEVEL 4-6 Last administered on 08/12/18 20:44; Admin Dose 1 TAB; Start 08/12/18 at 15:00 Isosorbide Dinitrate (Isordil) 10 mg TID PO Last administered on 08/13/18 12:20; Admin Dose 10 MG; Start 08/12/18 at 21:00 Lorazepam (Ativan) 1 mg Q6H PRN IV ANXIETY Last administered on 08/13/18 12:22; Admin Dose 1 MG; Start 08/12/18 at 22:30 BONITA RUBIO MD August 13, 2018 13:43
--- NOTE | 2018-08-13 16:52 | CONS ---
Assessment/Plan Assessment/Plan Hospital Course (Demo Recall) 1. HCAP; possible fluid overload 2. ESRD on HD Hx: - Non-healing diabetic R foot ulceration with infection at site of recent debridement; cultures grew MSSA and Enterococcus (ESR 93) - S/p excisional sharp debridement of the right first toe involving skin and subcutaneous tissue on 06/11/2017 - Evidence of osteomyelitis at the remnant of the first distal phalanx per MRI R foot 06/24/2017 - DM with hypoglycemic episode - Hgb A1c 7.2% - Diabetic neuropathy - H/o diabetic foot infections/OM of b/l feet, s/p amputation of R two toes - ESRD on HD - H/o central stenosis with apparent recent re-vascularization - S/p placement of L IJ HD catheter 06/20/2017 - PVD - H/o LLE bypass - CHF and CAD - Anemia of chronic kidney disease - Morbid obesity - BMI 44.4 - dysphagia, Group A pharyngitis screen was negative - H/o mildly dilated esophagus on CT (11/2016) and multiple distal erosive lesions in the distal esophagus per EGD (11/27/2016; path negative) - 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 Pt's sinuses are non-TTP. On a trial of renally dosed oseltamivir (06/30/2017-) Recommendations: - Respiratory virus panel and pertussis DFA- ordered - Continue Vanco/Cefepime - Continue Zithromax - serial cxr - lactic acid serially - f/u with blood cxs (NGTD), blood cx obtained from HD (NGTD), and resp cx (NGTD) - will continue to follow closely with you. above plan discussed and coordinated with via [employer]. Consultation Date/Type/Reason Admit Date/Time August 09, 2018 at 17:42 Initial Consult Date 08/10/18 Requesting Provider: KIRSTIN SPANN MD Date/Time of Note DATE: 08/13/18 TIME: 16:52 24 HR Interval Summary Free Text/Dictation Blood cxs (NGTD) WBC 3.2 Detailed Summary Respiratory: cough (productive) Exam/Review of Systems Exam Vitals Vital Signs Date Temp Pulse Resp B/P (MAP) Pulse Ox O2 O2 Flow FiO2 Time Delivery Rate 08/13/18 41 16:07 08/13/18 98.3 20 103/56 95 15:22 (72) 08/13/18 Nasal 2.0 15:03 Cannula 08/09/18 21 17:51 Intake and Output 08/12/18 08/12/18 08/13/18 1515:00 23:00 07:00 IntakeIntake Total 600 ml 700 ml OutputOutput Total 3500 ml 900 ml BalanceBalance -3500 ml -300 ml 700 ml Exam Constitutional: alert, oriented, well developed, obese Psych: anxiety Head: normocephalic, atraumatic Eyes: nl conjunctiva, EOMI, PERRL; No icteric ENMT: nl external ears & nose, nl nasal mucosa & septum, mucosa pink and moist Neck: supple Respiratory: diminished breath sounds bases, other (mild rhonchi bilaterally ); No crackles/rales, No labored breathing, No wheezing Cardiovascular: regular rate and rhythm Gastrointestinal: soft, non-tender, bowel sounds (normoactive); No distended Musculoskeletal: nl extremities to inspection, range of motion Extremities: No clubbing Neurological: nl mental status, nl speech, nl strength; No confused, No numbness Skin: ecchymosis, other (R foot dry ulcer no drainage or s/s infection); No rash or lesions Results Result Diagram: 08/13/18 0500 08/13/18 0500 Results 24hrs Laboratory Tests Test 08/12/18 20:34 08/13/18 02:15 08/13/18 05:00 08/13/18 08:02 Bedside Glucose 104 186 143 White Blood Count 3.2 L Red Blood Count 2.75 L Hemoglobin 9.3 L Hematocrit 30.5 L Mean Corpuscular 110.9 H Volume Mean Corpuscular 33.8 H Hemoglobin Mean Corpuscular 30.5 L Hemoglobin Concent Red Cell 17.1 H Distribution Width Platelet Count 235 Mean Platelet Volume 11.6 H Immature 0.300 Granulocytes % Neutrophils % 48.2 Lymphocytes % 23.4 Monocytes % 22.5 H Eosinophils % 5.0 Basophils % 0.6 Nucleated Red Blood 0.0 Cells % Immature 0.010 Granulocytes # Neutrophils # 1.5 L Lymphocytes # 0.8 Monocytes # 0.7 Eosinophils # 0.2 Basophils # 0.0 Nucleated Red Blood 0.0 Cells # Sodium Level 139 Potassium Level 4.7 Chloride Level 100 Carbon Dioxide Level 29 Anion Gap 10 # Blood Urea Nitrogen 44 #H Creatinine 5.71 #H Est Glomerular 8 L Filtrat Rate mL/min Glucose Level 160 Calcium Level 8.4 Procalcitonin 2.71 H Test 08/13/18 10:06 08/13/18 12:18 Troponin I 0.220 *H Bedside Glucose 221 H Medications Medication Current Medications Buspirone HCl (Buspar) 10 mg TID PO Last administered on 08/13/18 12:20; Admin Dose 10 MG; Start 08/10/18 at 09:00 Diltiazem HCl (Cardizem Cd) 120 mg DAILY PO Last administered on 08/13/18 08:09; Admin Dose 120 MG; Start 08/10/18 at 09:00 Furosemide (Lasix) 20 mg DAILY PO Last administered on 08/13/18 08:08; Admin Dose 20 MG; Start 08/10/18 at 09:00 Gabapentin (Neurontin) 300 mg TID PO Last administered on 08/13/18 12:21; Admin Dose 300 MG; Start 08/10/18 at 09:00 Methocarbamol (Robaxin) 500 mg DAILY PO Last administered on 08/13/18 08:08; Admin Dose 500 MG; Start 08/10/18 at 09:00 Metoprolol Tartrate (Lopressor) 25 mg BID PO Last administered on 08/13/18 08:08; Admin Dose 25 MG; Start 08/10/18 at 09:00 Pantoprazole (Protonix Tab) 40 mg AC BREAKFAST PO Last administered on 08/13/18 08:09; Admin Dose 40 MG; Start 08/10/18 at 07:00 Sevelamer Carbonate (Renvela) 1.6 gm WITH MEALS PO Last administered on 08/13/18 12:21; Admin Dose 1.6 GM; Start 08/10/18 at 08:00 Apixaban (Eliquis) 5 mg BID PO Last administered on 08/13/18 08:07; Admin Dose 5 MG; Start 08/10/18 at 09:00 Vancomycin HCl (Vanco Iv Per Pharmacy) VANCOMYCIN PER PHARMACY PER PROTOCOL XX ; Start 08/09/18 at 23:30 Cefepime HCl 50 ml @ 100 mls/hr Q24H IVPB Last administered on 08/13/18at 08:06; Admin Dose 100 MLS/HR; Start 08/10/18 at 09:00 Acetaminophen (Tylenol Tab) 650 mg Q6H PRN PO MILD PAIN(1-3)OR ELEVATED TEMP Last administered on 08/13/18at 06:15; Admin Dose 650 MG; Start 08/09/18 at 23:30 Morphine Sulfate (morphine) 2 mg Q4H PRN IV SEVERE PAIN LEVEL 7-10 Last administered on 08/11/18at 05:01; Admin Dose 2 MG; Start 08/09/18 at 23:30 Guaifenesin/ Codeine Phosphate (Robitussin Ac Liquid Cup) 10 ml Q4H PRN PO COUGH Last administered on 08/13/18at 06:15; Admin Dose 10 ML; Start 08/09/18 at 23:30 Miscellaneous Information 1 ea NOTE XX ; Start 08/10/18 at 05:30 Glucose (Glutose) 15 gm Q15M PRN PO DECREASED GLUCOSE; Start 08/10/18 at 05:30 Glucose (Glutose) 22.5 gm Q15M PRN PO DECREASED GLUCOSE; Start 08/10/18 at 05:30 Dextrose (D50w Syringe) 25 ml Q15M PRN IV DECREASED GLUCOSE; Start 08/10/18 at 05:30 Dextrose (D50w Syringe) 50 ml Q15M PRN IV DECREASED GLUCOSE; Start 08/10/18 at 05:30 Glucagon (Glucagen) 1 mg Q15M PRN IM DECREASED GLUCOSE; Start 08/10/18 at 05:30 Glucose (Glutose) 15 gm Q15M PRN BUCCAL DECREASED GLUCOSE; Start 08/10/18 at 05:30 Insulin Aspart (Novolog Insulin Pen) NOVOLOG *MILD* ALGORI... AC MEALS AND BEDTIME SC Last administered on 08/13/18at 12:38; Admin Dose 3 UNIT; Start 08/10/18 at 08:00 Diagnostic Test (Pha) (Accu-Chek) 1 ea 02 XX Last administered on 08/11/18at 01:56; Admin Dose 1 EA; Start 08/11/18 at 02:00 Insulin Glargine (Lantus) 20 units DAILY@0800 SC Last administered on 08/13/18 08:20; Admin Dose 20 UNITS; Start 08/11/18 at 08:00 Insulin Aspart (Novolog Insulin Pen) 10 unit WITH MEALS SC Last administered on 08/13/18 12:38; Admin Dose 10 UNIT; Start 08/11/18 at 08:00 Azithromycin (Zithromax) 500 mg DAILY PO Last administered on 08/13/18 08:08; Admin Dose 500 MG; Start 08/12/18 at 09:00; Stop 08/16/18 at 08:59 Docusate Sodium (Colace) 100 mg DAILY PO Last administered on 08/13/18 08:07; Admin Dose 100 MG; Start 08/12/18 at 09:00 Tramadol HCl (Ultram) 50 mg Q12H PRN PO PAIN; Start 08/11/18 at 13:30 Diclofenac Sodium (Voltaren 1% Gel) 2 gm BID TP Last administered on 08/13/18 08:12; Admin Dose 2 GM; Start 08/11/18 at 21:00 Acetaminophen/ Hydrocodone Bitart ([place] (5/325)) 1 tab Q4H PRN PO MODERATE PAIN LEVEL 4-6 Last administered on 08/12/18 20:44; Admin Dose 1 TAB; Start 08/12/18 at 15:00 Isosorbide Dinitrate (Isordil) 10 mg TID PO Last administered on 08/13/18 12:20; Admin Dose 10 MG; Start 08/12/18 at 21:00 Lorazepam (Ativan) 1 mg Q6H PRN IV ANXIETY Last administered on 08/13/18 12:22; Admin Dose 1 MG; Start 08/12/18 at 22:30 Heparin Sodium (Porcine) (Heparin (1000 Units/ml)) 4,000 unit AFTER DIALYSIS C ATHETER ; Start 08/13/18 at 16:30 CHERYL TRINIDAD NP August 13, 2018 16:52
[2018-08-14] VITALS (24 sets, daily range): BP systolic 128–173; BP diastolic 57–88; PULSE 35–83; RESP 18–22
[2018-08-14] MEDS: ACCU-CHEK XX SCH (02:12)
[2018-08-14] MEDS: GUAIFENESIN/CODEINE 5ML CUP PO PRN (02:23)
[2018-08-14] MEDS: PANTOPRAZOLE (EC) 40 MG TAB PO SCH (06:06)
[2018-08-14] MEDS: INSULIN ASPART [NOVOLOG] 3 ML PEN SC SCH ×7 (07:00→20:43)
[2018-08-14] MEDS: AZITHROMYCIN 500 MG TAB PO SCH (08:52)
[2018-08-14] MEDS: DOCUSATE SODIUM 100 MG CAP PO SCH (08:52)
[2018-08-14] MEDS: SEVELAMER CARBONATE 0.8 GM PKT PO SCH ×3 (08:52→17:54)
[2018-08-14] MEDS: METHOCARBAMOL 500 MG TAB PO SCH (08:52)
[2018-08-14] MEDS: APIXABAN 5 MG TABLET PO SCH ×2 (08:52→22:41)
[2018-08-14] MEDS: GABAPENTIN 300 MG CAP PO SCH ×3 (08:52→22:41)
[2018-08-14] MEDS: CEFEPIME 1GM/50 ML (PMX) 50 ML IVPB SCH (08:53)
[2018-08-14] MEDS: BUSPIRONE 10 MG TAB PO SCH ×3 (08:53→22:41)
[2018-08-14] MEDS: DICLOFENAC SODIUM 1% GEL 100 GM TUBE TP SCH ×2 (08:56→20:44)
[2018-08-14] MEDS: ISOSORBIDE DINITRATE 10 MG TAB PO SCH ×3 (09:00→23:40)
[2018-08-14] MEDS: INSULIN GLARGINE [LANTus] (100 UNITS/ML) SYG SC SCH (09:22)
[2018-08-14] MEDS: HYDROCODONE/APAP (5/325) TAB PO PRN ×2 (09:59→18:07)
[2018-08-14] MEDS: METOPROLOL 25 MG TAB PO SCH ×2 (10:00→23:40)
[2018-08-14] MEDS: FUROSEMIDE 20 MG TAB PO SCH (10:00)
[2018-08-14] MEDS: DILTIAZEM (CD) 120 MG CAP PO SCH (10:00)
[2018-08-14] MEDS: LORAZEPAM 2 MG INJ IV PRN (12:09)
--- NOTE | 2018-08-14 12:58 | PN ---
Date/Time of Note Date/Time of Note DATE: 08/14/18 TIME: 12:53 Assessment/Plan VTE Prophylaxis Risk score (from Ns)>0 risk: 3 SCD applied (from Ns): No Lines/Catheters IV Catheter Type (from [facility]): [place] [facility] Urinary Cath still in place: No Assessment/Plan Assessment/Plan --Hyperkalemia- Kayexalate today, bmp am -Healthcare associated pneumonia, continue broad-spectrum antibiotics, Dr. Lucas is following in infection disease consultation. -Dialysis dependent end-stage renal disease. Dr. Spicer is following in nephrology consultation. -Elevated troponin, Dr. William is following in cardiology consultation. -Atrial fibrillation, continue metoprolol and Eliquis. -Anemia of chronic disease -Diabetes mellitus type 2 with hemoglobin A1c of 6.5, continue Lantus and NovoLog -Peripheral vascular disease history of left lower extremity bypass surgery. -Right foot ulcer. Dr. Pineda is following and podiatry consultation. Disposition: to assisted living facility when symptoms resolve and cleared by consultants. Further recommendations based on clinical course. Plan of care discussed with Dr. Cordero. Result Diagram: 08/14/18 0503 08/14/18 0503 Results 24hrs Laboratory Tests Test 08/13/18 17:22 08/13/18 21:28 08/13/18 21:52 08/13/18 23:09 Bedside Glucose 120 46 *L 166 Fasting Glucose 117 H Test 08/14/18 00:41 08/14/18 02:10 08/14/18 05:03 08/14/18 07:40 Bedside Glucose 125 117 135 White Blood Count 3.9 #L Red Blood Count 2.68 L Hemoglobin 9.2 L Hematocrit 29.5 L Mean Corpuscular 110.1 H Volume Mean Corpuscular 34.3 H Hemoglobin Mean Corpuscular 31.2 L Hemoglobin Concent Red Cell 16.8 H Distribution Width Platelet Count 252 Mean Platelet Volume 10.8 H Immature 0.500 H Granulocytes % Neutrophils % 63.9 Lymphocytes % 15.2 Monocytes % 16.5 H Eosinophils % 3.6 Basophils % 0.3 Nucleated Red Blood 0.0 Cells % Immature 0.020 Granulocytes # Neutrophils # 2.5 Lymphocytes # 0.6 L Monocytes # 0.6 Eosinophils # 0.1 Basophils # 0.0 Nucleated Red Blood 0.0 Cells # Sodium Level 138 Potassium Level 5.3 H Chloride Level 98 Carbon Dioxide Level 26 Anion Gap 14 H Blood Urea Nitrogen 54 H Creatinine 7.16 H Est Glomerular 6 L Filtrat Rate mL/min Glucose Level 144 Calcium Level 8.4 Test 08/14/18 12:13 Bedside Glucose 104 Exam/Review of Systems Exam Vitals Vital Signs Date Temp Pulse Resp B/P (MAP) Pulse Ox O2 O2 Flow FiO2 Time Delivery Rate 08/14/18 67 08:00 08/14/18 98.1 22 140/74 99 Nasal 07:33 (96) Cannula 08/13/18 2.0 15:03 Intake and Output 08/13/18 08/13/18 08/14/18 1515:00 23:00 07:00 IntakeIntake Total 1000 ml 440 ml BalanceBalance 1000 ml 440 ml Constitutional: alert, well developed Psych: nl mood/affect Eyes: nl lids, nl sclera Respiratory: clear to auscultation Cardiovascular: nl pulses, other (s1s2) Gastrointestinal: soft Results Results 24hrs Laboratory Tests Test 08/13/18 17:22 08/13/18 21:28 08/13/18 21:52 08/13/18 23:09 Bedside Glucose 120 46 *L 166 Fasting Glucose 117 H Test 08/14/18 00:41 08/14/18 02:10 08/14/18 05:03 08/14/18 07:40 Bedside Glucose 125 117 135 White Blood Count 3.9 #L Red Blood Count 2.68 L Hemoglobin 9.2 L Hematocrit 29.5 L Mean Corpuscular 110.1 H Volume Mean Corpuscular 34.3 H Hemoglobin Mean Corpuscular 31.2 L Hemoglobin Concent Red Cell 16.8 H Distribution Width Platelet Count 252 Mean Platelet Volume 10.8 H Immature 0.500 H Granulocytes % Neutrophils % 63.9 Lymphocytes % 15.2 Monocytes % 16.5 H Eosinophils % 3.6 Basophils % 0.3 Nucleated Red Blood 0.0 Cells % Immature 0.020 Granulocytes # Neutrophils # 2.5 Lymphocytes # 0.6 L Monocytes # 0.6 Eosinophils # 0.1 Basophils # 0.0 Nucleated Red Blood 0.0 Cells # Sodium Level 138 Potassium Level 5.3 H Chloride Level 98 Carbon Dioxide Level 26 Anion Gap 14 H Blood Urea Nitrogen 54 H Creatinine 7.16 H Est Glomerular 6 L Filtrat Rate mL/min Glucose Level 144 Calcium Level 8.4 Test 08/14/18 12:13 Bedside Glucose 104 Medications Medication Current Medications Buspirone HCl (Buspar) 10 mg TID PO Last administered on 08/14/18 08:53; Admin Dose 10 MG; Start 08/10/18 at 09:00 Diltiazem HCl (Cardizem Cd) 120 mg DAILY PO Last administered on 08/14/18 10:00; Admin Dose 120 MG; Start 08/10/18 at 09:00 Furosemide (Lasix) 20 mg DAILY PO Last administered on 08/14/18 10:00; Admin Dose 20 MG; Start 08/10/18 at 09:00 Gabapentin (Neurontin) 300 mg TID PO Last administered on 08/14/18 08:52; Admin Dose 300 MG; Start 08/10/18 at 09:00 Metoprolol Tartrate (Lopressor) 25 mg BID PO Last administered on 08/14/18 10:00; Admin Dose 25 MG; Start 08/10/18 at 09:00 Pantoprazole (Protonix Tab) 40 mg AC BREAKFAST PO Last administered on 08/14/18 06:06; Admin Dose 40 MG; Start 08/10/18 at 07:00 Sevelamer Carbonate (Renvela) 1.6 gm WITH MEALS PO Last administered on 08/14/18 08:52; Admin Dose 1.6 GM; Start 08/10/18 at 08:00 Apixaban (Eliquis) 5 mg BID PO Last administered on 08/14/18 08:52; Admin Dose 5 MG; Start 08/10/18 at 09:00 Vancomycin HCl (Vanco Iv Per Pharmacy) VANCOMYCIN PER PHARMACY PER PROTOCOL XX ; Start 08/09/18 at 23:30 Cefepime HCl 50 ml @ 100 mls/hr Q24H IVPB Last administered on 08/14/18 08:53; Admin Dose 100 MLS/HR; Start 08/10/18 at 09:00 Acetaminophen (Tylenol Tab) 650 mg Q6H PRN PO MILD PAIN(1-3)OR ELEVATED TEMP Last administered on 08/13/18 06:15; Admin Dose 650 MG; Start 08/09/18 at 23:30 Morphine Sulfate (morphine) 2 mg Q4H PRN IV SEVERE PAIN LEVEL 7-10 Last administered on 08/11/18 05:01; Admin Dose 2 MG; Start 08/09/18 at 23:30 Guaifenesin/ Codeine Phosphate (Robitussin Ac Liquid Cup) 10 ml Q4H PRN PO COUGH Last administered on 08/14/18 02:23; Admin Dose 10 ML; Start 08/09/18 at 23:30 Miscellaneous Information 1 ea NOTE XX ; Start 08/10/18 at 05:30 Glucose (Glutose) 15 gm Q15M PRN PO DECREASED GLUCOSE; Start 08/10/18 at 05:30 Glucose (Glutose) 22.5 gm Q15M PRN PO DECREASED GLUCOSE; Start 08/10/18 at 05:30 Dextrose (D50w Syringe) 25 ml Q15M PRN IV DECREASED GLUCOSE; Start 08/10/18 at 05:30 Dextrose (D50w Syringe) 50 ml Q15M PRN IV DECREASED GLUCOSE Last administered on 08/13/18at 21:34; Admin Dose 50 ML; Start 08/10/18 at 05:30 Glucagon (Glucagen) 1 mg Q15M PRN IM DECREASED GLUCOSE; Start 08/10/18 at 05:30 Glucose (Glutose) 15 gm Q15M PRN BUCCAL DECREASED GLUCOSE; Start 08/10/18 at 05:30 Insulin Aspart (Novolog Insulin Pen) NOVOLOG *MILD* ALGORI... AC MEALS AND BEDTIME SC Last administered on 08/13/18 12:38; Admin Dose 3 UNIT; Start 08/10/18 at 08:00 Diagnostic Test (Pha) (Accu-Chek) 1 ea 02 XX Last administered on 08/14/18at 02:12; Admin Dose 1 EA; Start 08/11/18 at 02:00 Insulin Aspart (Novolog Insulin Pen) 10 unit WITH MEALS SC Last administered on 08/14/18 09:22; Admin Dose 10 UNIT; Start 08/11/18 at 08:00 Azithromycin (Zithromax) 500 mg DAILY PO Last administered on 08/14/18 08:52; Admin Dose 500 MG; Start 08/12/18 at 09:00; Stop 08/16/18 at 08:59 Docusate Sodium (Colace) 100 mg DAILY PO Last administered on 08/14/18 08:52; Admin Dose 100 MG; Start 08/12/18 at 09:00 Tramadol HCl (Ultram) 50 mg Q12H PRN PO PAIN; Start 08/11/18 at 13:30 Diclofenac Sodium (Voltaren 1% Gel) 2 gm BID TP Last administered on 08/14/18at 08:56; Admin Dose 2 GM; Start 08/11/18 at 21:00 Acetaminophen/ Hydrocodone Bitart ([place] (5/325)) 1 tab Q4H PRN PO MODERATE PAIN LEVEL 4-6 Last administered on 08/14/18at 09:59; Admin Dose 1 TAB; Start 08/12/18 at 15:00 Isosorbide Dinitrate (Isordil) 10 mg TID PO Last administered on 08/13/18at 21:57; Admin Dose 10 MG; Start 08/12/18 at 21:00 Lorazepam (Ativan) 1 mg Q6H PRN IV ANXIETY Last administered on 08/14/18at 12:09; Admin Dose 1 MG; Start 08/12/18 at 22:30 Heparin Sodium (Porcine) (Heparin (1000 Units/ml)) 4,000 unit AFTER DIALYSIS CATHETER ; Start 08/13/18 at 16:30 Insulin Glargine (Lantus) 14 units DAILY@0800 SC Last administered on 08/14/18at 09:22; Admin Dose 14 UNITS; Start 08/14/18 at 08:00 Senna (Senokot) 2 tab BID PRN PO CONSTIPATION; Start 08/14/18 at 12:00 Miscellaneous Information (*Rx Drug Level Order Reminder*) 1 0500 ONCE XX ; Start 08/15/18 at 05:00; Stop 08/15/18 at 05:01 VIOLET RUDOLPH August 14, 2018 12:58
[2018-08-14] MEDS ORDERED: NA POLYST SULFON 15 GM/60 ML BTL PO ONE (13:00)
[2018-08-14] MEDS: SENNA TAB PO PRN (13:04)
--- NOTE | 2018-08-14 13:19 | CONS ---
Consult Date/Type/Reason Admit Date/Time August 09, 2018 at 17:42 Initial Consult Date 08/10/18 Requesting Provider: KIRSTIN SPANN MD Date/Time of Note DATE: 08/14/18 TIME: 13:16 Subjective NO acute events - BP in good range - stress test not done yesterday, pt declined - will monitor clinically now. ROS: No fever, no chills, no nausea, no vomiting, no diarrhea/constipation No recent weight changes No chest pain, no PND, no orthopnea - mild SOB No dizziness, blurred vision No thirst, no heat or cold intolerance Objective Vitals Vital Signs Date Temp Pulse Resp B/P (MAP) Pulse Ox O2 O2 Flow FiO2 Time Delivery Rate 08/14/18 73 12:00 08/14/18 98.1 22 140/74 99 Nasal 07:33 (96) Cannula 08/13/18 2.0 15:03 Intake and Output 08/13/18 08/13/18 08/14/18 1515:00 23:00 07:00 IntakeIntake Total 1000 ml 440 ml BalanceBalance 1000 ml 440 ml Exam General: WN/WD/NAD, AOx 3 HEENT: Unicetric/atraumatic/EOMI (follows commands) NECK: JVD elevated, no thyromegaly Lymph: no lymphadenopathy HEART: regular with no S3, II/ systolic murmur at apex, PMI L LUNGS: Coarse sounds ABD: soft, NT, ND, +BS : Intact Neuro: non focal SKIN: chronic changes EXT: 1+ edema Results/Medications Result Diagram: 08/14/18 0503 08/14/18 0503 Results 24 hrs Laboratory Tests Test 08/13/18 17:22 08/13/18 21:28 08/13/18 21:52 08/13/18 23:09 Bedside Glucose 120 46 *L 166 Fasting Glucose 117 H Test 08/14/18 00:41 08/14/18 02:10 08/14/18 05:03 08/14/18 07:40 Bedside Glucose 125 117 135 White Blood Count 3.9 #L Red Blood Count 2.68 L Hemoglobin 9.2 L Hematocrit 29.5 L Mean Corpuscular 110.1 H Volume Mean Corpuscular 34.3 H Hemoglobin Mean Corpuscular 31.2 L Hemoglobin Concent Red Cell 16.8 H Distribution Width Platelet Count 252 Mean Platelet Volume 10.8 H Immature 0.500 H Granulocytes % Neutrophils % 63.9 Lymphocytes % 15.2 Monocytes % 16.5 H Eosinophils % 3.6 Basophils % 0.3 Nucleated Red Blood 0.0 Cells % Immature 0.020 Granulocytes # Neutrophils # 2.5 Lymphocytes # 0.6 L Monocytes # 0.6 Eosinophils # 0.1 Basophils # 0.0 Nucleated Red Blood 0.0 Cells # Sodium Level 138 Potassium Level 5.3 H Chloride Level 98 Carbon Dioxide Level 26 Anion Gap 14 H Blood Urea Nitrogen 54 H Creatinine 7.16 H Est Glomerular 6 L Filtrat Rate mL/min Glucose Level 144 Calcium Level 8.4 Test 08/14/18 12:13 Bedside Glucose 104 Home Meds Reported Medications Metoprolol Tartrate* (Lopressor*) 25 Mg Tab, 25 MG PO BID, #60 TAB 08/09/18 Pantoprazole* (Pantoprazole*) 40 Mg Tablet.dr, 40 MG PO AC BREAKFAST, TAB 08/09/18 Diltiazem Hcl* (Diltiazem XT) 120 Mg Capsule.sa, 120 MG PO DAILY, #30 CAP 08/09/18 Amlodipine Besylate* (Norvasc*) 5 Mg Tablet, 5 MG PO DAILY, TAB 08/09/18 Buspirone Hcl* (Buspirone Hcl*) 10 Mg Tab, 10 MG PO TID, TAB 08/09/18 Furosemide* (Furosemide*) 20 Mg Tablet, 20 MG PO DAILY, #60 TAB 08/09/18 Gabapentin* (Gabapentin*) 300 Mg Capsule, 300 MG PO TID, #90 CAP 08/09/18 Methocarbamol* (Methocarbamol*) 500 Mg Tablet, 500 MG PO DAILY, TAB 08/09/18 Sevelamer Hcl* (Renagel*) 800 Mg Tablet, 1600 MG PO WITH MEALS, TAB 08/09/18 Apixaban* (Eliquis*) 5 Mg Tablet, 5 MG PO BID, TAB 08/09/18 Discontinued Reported Medications Insulin Aspart* (Novolog Insulin Pen*) 100 Unit/Ml Soln, 0 SC .SLIDING SCALE AC, EA 06/17/17 Insulin Glargine* (Lantus*) 100 Unit/Ml Soln, 40 UNIT SC QHS, #1 VIAL 06/17/17 Discontinued Scripts Oseltamivir Phosphate* (Tamiflu*) 30 Mg Capsule, 30 MG PO DAILY for 2 Days, CAP Prov:VIOLET RUDOLPH 07/02/17 Menthol/Methyl Salicylate (Analgesic [place]) 28 Gm Oint...g., 1 APPLIC TOP TID PRN for PAIN, #1 Prov:VIOLET RUDOLPH 07/02/17 Lactulose* (Lactulose*) 20 Gm/30 Ml Solution, 30 GM PO BID PRN for CONSTIPATION for 30 Days Prov:VIOLET RUDOLPH 07/02/17 Hydrocodone Bit-Acetaminophen (Hydrocodone Bit-APAP) 5-325MG Tablet, 1 TAB PO Q6H PRN for MODERATE PAIN LEVEL 4-6, #20 TAB Prov:VIOLET RUDOLPH 07/02/17 Duloxetine Hcl* (Cymbalta*) 30 Mg Capsule.dr, 30 MG PO BID for 30 Days Prov:VIOLET RUDOLPH 07/02/17 Docusate Sodium (Dok) 100 Mg Capsule, 100 MG PO Q12H PRN for CONSTIPATION for 30 Days, CAP Prov:VIOLET RUDOLPH 07/02/17 Buspirone Hcl* (Buspar*) 5 Mg Tab, 5 MG PO BID for 30 Days, TAB Prov:VIOLET RUDOLPH 07/02/17 Albuterol Sulfate* (Ventolin HFA*) 18 Gm Hfa.aer.ad, 2 PUFF INHALATION Q6H RESP THERAPY, #1 Prov:VIOLET RUDOLPH 07/02/17 Alprazolam* (Alprazolam*) 0.25 Mg Tablet, 0.25 MG PO Q6H PRN for ANXIETY, #30 TAB Prov:ANTHONY DUPREE 02/04/17 Apixaban* (Eliquis*) 5 Mg Tablet, 2.5 MG PO BID for 30 Days, TAB Prov:ANTHONY DUPREE 02/04/17 Hydrocodone/Acetaminophen (Hydrocodon-Acetaminoph 7.5-325) 1 Each Tablet, 1 TAB PO Q6H PRN for pain, #30 TAB Prov:ANTHONY DUPREE 02/04/17 Albuterol Sulfate* (Ventolin HFA*) 18 Gm Hfa.aer.ad, 2 PUFF INHALATION Q4H for 30 Days, #1 INHALER Prov:DIMPLESCARLETT02/04/17 Linagliptin (TRADJENTA) 5 Mg Tablet, 5 MG PO DAILY for 30 Days, TAB Prov:02/04/17 Pantoprazole* (Pantoprazole*) 40 Mg Tablet.dr, 40 MG PO AC BREAKFAST for 30 Days, TAB Prov:[facility]02/04/17 Sevelamer Carbonate* (Renvela*) 800 Mg Tablet, 0.8 GM PO WITH MEALS for 30 Days, TAB Prov:02/04/17 Multivit/Ca Carb/B Cmplx/Fa* (Addie-Mikayla*) 1 Tab Tab, 1 TAB PO DAILY for 30 Days, TAB Prov:02/04/17 Folic Acid* (Folic Acid*) 1 Mg Tablet, 1 MG PO DAILY for 30 Days, TAB Prov:02/04/17 Clonidine Hcl* (Clonidine Hcl*) 0.2 Mg Tablet, 0.2 MG PO TID PRN for HTN for 30 Days, TAB Prov:02/04/17 Clopidogrel Bisulfate* (Clopidogrel Bisulfate*) 75 Mg Tablet, 75 MG PO DAILY, #30 TAB Prov:02/04/17 Carvedilol* (Carvedilol*) 6.25 Mg Tablet, 6.25 MG PO DAILY, #60 TAB Prov:02/04/17 Gabapentin* (Gabapentin*) 300 Mg Capsule, 300 MG PO BID, #60 CAP Prov:02/04/17 Atorvastatin* (Atorvastatin*) 40 Mg Tablet, 40 MG PO QHS, #30 TAB Prov:[facility]02/04/17 Amlodipine Besylate* (Amlodipine Besylate*) 10 Mg Tablet, 10 MG PO DAILY, #30 TAB Prov:[facility]02/04/17 Medications Current Medications Buspirone HCl (Buspar) 10 mg TID PO Last administered on 08/14/18at 13:05; Admin Dose 10 MG; Start 08/10/18 at 09:00 Diltiazem HCl (Cardizem Cd) 120 mg DAILY PO Last administered on 08/14/18 10:00; Admin Dose 120 MG; Start 08/10/18 at 09:00 Furosemide (Lasix) 20 mg DAILY PO Last administered on 08/14/18 10:00; Admin Dose 20 MG; Start 08/10/18 at 09:00 Gabapentin (Neurontin) 300 mg TID PO Last administered on 08/14/18 13:05; Admin Dose 300 MG; Start 08/10/18 at 09:00 Metoprolol Tartrate (Lopressor) 25 mg BID PO Last administered on 08/14/18 10:00; Admin Dose 25 MG; Start 08/10/18 at 09:00 Pantoprazole (Protonix Tab) 40 mg AC BREAKFAST PO Last administered on 08/14/18 06:06; Admin Dose 40 MG; Start 08/10/18 at 07:00 Sevelamer Carbonate (Renvela) 1.6 gm WITH MEALS PO Last administered on 08/04 13:04; Admin Dose 1.6 GM; Start 08/10/18 at 08:00 Apixaban (Eliquis) 5 mg BID PO Last administered on 08/14/18 08:52; Admin Dose 5 MG; Start 08/10/18 at 09:00 Vancomycin HCl (Vanco Iv Per Pharmacy) VANCOMYCIN PER PHARMACY PER PROTOCOL XX ; Start 08/09/18 at 23:30 Cefepime HCl 50 ml @ 100 mls/hr Q24H IVPB Last administered on 08/14/18 08:53; Admin Dose 100 MLS/HR; Start 08/10/18 at 09:00 Acetaminophen (Tylenol Tab) 650 mg Q6H PRN PO MILD PAIN(1-3)OR ELEVATED TEMP Last administered on 08/13/18 06:15; Admin Dose 650 MG; Start 08/09/18 at 23:30 Morphine Sulfate (morphine) 2 mg Q4H PRN IV SEVERE PAIN LEVEL 7-10 Last administered on 08/11/18 05:01; Admin Dose 2 MG; Start 08/09/18 at 23:30 Guaifenesin/ Codeine Phosphate (Robitussin Ac Liquid Cup) 10 ml Q4H PRN PO COUGH Last administered on 08/14/18 02:23; Admin Dose 10 ML; Start 08/09/18 at 23:30 Miscellaneous Information 1 ea NOTE XX ; Start 08/10/18 at 05:30 Glucose (Glutose) 15 gm Q15M PRN PO DECREASED GLUCOSE; Start 08/10/18 at 05:30 Glucose (Glutose) 22.5 gm Q15M PRN PO DECREASED GLUCOSE; Start 08/10/18 at 05:30 Dextrose (D50w Syringe) 25 ml Q15M PRN IV DECREASED GLUCOSE; Start 08/10/18 at 05:30 Dextrose (D50w Syringe) 50 ml Q15M PRN IV DECREASED GLUCOSE Last administered on 08/13/18at 21:34; Admin Dose 50 ML; Start 08/10/18 at 05:30 Glucagon (Glucagen) 1 mg Q15M PRN IM DECREASED GLUCOSE; Start 08/10/18 at 05:30 Glucose (Glutose) 15 gm Q15M PRN BUCCAL DECREASED GLUCOSE; Start 08/10/18 at 05:30 Insulin Aspart (Novolog Insulin Pen) NOVOLOG *MILD* ALGORI... AC MEALS AND BEDTIME SC Last administered on 08/13/18at 12:38; Admin Dose 3 UNIT; Start 08/10/18 at 08:00 Diagnostic Test (Pha) (Accu-Chek) 1 ea 02 XX Last administered on 08/14/18at 02:12; Admin Dose 1 EA; Start 08/11/18 at 02:00 Insulin Aspart (Novolog Insulin Pen) 10 unit WITH MEALS SC Last administered on 08/14/18 09:22; Admin Dose 10 UNIT; Start 08/11/18 at 08:00 Azithromycin (Zithromax) 500 mg DAILY PO Last administered on 08/14/18at 08:52; Admin Dose 500 MG; Start 08/12/18 at 09:00; Stop 08/16/18 at 08:59 Docusate Sodium (Colace) 100 mg DAILY PO Last administered on 08/14/18 08:52; Admin Dose 100 MG; Start 08/12/18 at 09:00 Tramadol HCl (Ultram) 50 mg Q12H PRN PO PAIN; Start 08/11/18 at 13:30 Diclofenac Sodium (Voltaren 1% Gel) 2 gm BID TP Last administered on 08/14/18at 08:56; Admin Dose 2 GM; Start 08/11/18 at 21:00 Acetaminophen/ Hydrocodone Bitart ([place] (5/325)) 1 tab Q4H PRN PO MODERATE PAIN LEVEL 4-6 Last administered on 08/14/18at 09:59; Admin Dose 1 TAB; Start 08/12/18 at 15:00 Isosorbide Dinitrate (Isordil) 10 mg TID PO Last administered on 08/13/18at 21:57; Admin Dose 10 MG; Start 08/12/18 at 21:00 Lorazepam (Ativan) 1 mg Q6H PRN IV ANXIETY Last administered on 08/14/18 12:09; Admin Dose 1 MG; Start 08/12/18 at 22:30 Heparin Sodium (Porcine) (Heparin (1000 Units/ml)) 4,000 unit AFTER DIALYSIS CATHETER ; Start 08/13/18 at 16:30 Insulin Glargine (Lantus) 14 units DAILY@0800 SC Last administered on 08/14/18at 09:22; Admin Dose 14 UNITS; Start 08/14/18 at 08:00 Senna (Senokot) 2 tab BID PRN PO CONSTIPATION Last administered on 08/14/18at 13:04; Admin Dose 2 TAB; Start 08/14/18 at 12:00 Miscellaneous Information (*Rx Drug Level Order Reminder*) 1 0500 ONCE XX ; Start 08/15/18 at 05:00; Stop 08/15/18 at 05:01 Assessment/Plan Hospital Course (Demo Recall) 1. Positive troponin, assess significance in the setting of renal failure, likely type 2 demand infarct in the setting of pneumoni - declined Stress test - donna re-evaluate with another set of troponins. No CP now - plan for conser vative Rx. 2. Atrial fibrillation, rate controlled - con't to follow. No tachy-prasad episodes noted. 3. Abnormal electrocardiogram, assess for true acute coronary syndrome. NO CP - refused stress test. 4. Hypertension, well controlled - HD to follow. Defer to renal team. 5. End-stage renal disease, on hemodialysis. 6. Nausea- better now - in good satus now. 7. Left lower lobe pneumonia - on anti-Bx, con't med rx. 8. Peripheral arterial disease with nonhealing lower extremity ulcer - con't skin care. MARY JO AGUIRRE MD August 14, 2018 13:19
--- NOTE | 2018-08-14 15:21 | CONS ---
[facility] HCIS Consult Follow-up Patient Name: Nikki Petit Unit Number: [id number] Date of : 1960 Patient Status: Admitted Inpatient Attending Doctor: Kirstin Spann MD Edit: ALEXANDER SHEETS M.D. on 08/16/18 @ 03:21 [place]: I discussed the management with INSTRUCTOR DECORATING Clarence and agree Assessment/Plan Assessment/Plan Hospital Course (Demo Recall) - S/p sepsis d/t HCAP - fever and tachycardia resolved - HCAP - Likely underlying fluid overload - ESRD on HD T-T-S - Hyperkalemia - Elevated troponin - H/o non-healing diabetic R foot ulceration with infection at site of recent debridement; cultures grew MSSA and Enterococcus (ESR 93) - S/p excisional sharp debridement of the right first toe involving skin and subcutaneous tissue on 06/11/2017 - Evidence of osteomyelitis at the remnant of the first distal phalanx per MRI R foot 06/24/2017 - DM with hypoglycemic episode - Hgb A1c 6.5% - Diabetic neuropathy - H/o diabetic foot infections/OM of b/l feet, s/p amputation of R two toes - H/o central stenosis with apparent recent re-vascularization - S/p placement of L IJ HD catheter 06/20/2017 - PVD - H/o LLE bypass - CHF and CAD - Anemia of chronic kidney disease - Morbid obesity - BMI 39.9 - H/o dysphagia, Group A pharyngitis screen was negative - H/o mildly dilated esophagus on CT (11/2016) and multiple distal erosive lesions in the distal esophagus per EGD (11/27/2016; path negative) - 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 Pt's sinuses are non-TTP. On a trial of renally dosed oseltamivir (06/30/2017-) Recommendations: - Continue Vancomycin, Cefepime, and Zithromax - Pending: blood cxs (NGTD), blood cx obtained from HD (NGTD), respiratory virus panel, and pertussis DFA Management d/w patient and with Dr. Sheets Consultation Date/Type/Reason Admit Date/Time August 09, 2018 at 17:42 Initial Consult Date 08/10/18 Type of Consult Infectious Disease Requesting Provider: KIRSTIN SPANN MD Date/Time of Note DATE: 08/14/18 TIME: 15:19 24 HR Interval Summary Free Text/Dictation "I'm feeling a little better today, and much better than from the day before". Denies pain. Exam/Review of Systems Exam Vitals Vital Signs Date Temp Pulse Resp B/P (MAP) Pulse Ox O2 O2 Flow FiO2 Time Delivery Rate 08/14/18 73 12:00 08/14/18 98.1 22 140/74 99 Nasal 07:33 (96) Cannula 08/13/18 2.0 15:03 Intake and Output 08/13/18 08/13/18 08/14/18 1515:00 23:00 07:00 IntakeIntake Total 1000 ml 440 ml BalanceBalance 1000 ml 440 ml Constitutional: alert, oriented, well developed Psych: no complaints, nl mood/affect Head: normocephalic, atraumatic Eyes: nl conjunctiva, nl lids ENMT: nl external ears & nose Neck: supple Respiratory: normal air movement, other (Coarse breath sounds; On O2 at 2L via NC) Cardiovascular: regular rate and rhythm, systolic murmur Gastrointestinal: soft, non-tender; No distended Musculoskeletal: nl extremities to inspection Extremities: normal pulses, other (R partial great toe and R 5th toe amputation noted) Neurological: nl mental status, nl speech Skin: nl turgor Results Result Diagram: 08/14/18 0503 08/14/18 0503 Results 24hrs Laboratory Tests Test 08/13/18 17:22 08/13/18 21:28 08/13/18 21:52 08/13/18 23:09 Bedside Glucose 120 46 *L 166 Fasting Glucose 117 H Test 08/14/18 00:41 08/14/18 02:10 08/14/18 05:03 08/14/18 07:40 Bedside Glucose 125 117 135 White Blood Count 3.9 #L Red Blood Count 2.68 L Hemoglobin 9.2 L Hematocrit 29.5 L Mean Corpuscular 110.1 H Volume Mean Corpuscular 34.3 H Hemoglobin Mean Corpuscular 31.2 L Hemoglobin Concent Red Cell 16.8 H Distribution Width Platelet Count 252 Mean Platelet Volume 10.8 H Immature 0.500 H Granulocytes % Neutrophils % 63.9 Lymphocytes % 15.2 Monocytes % 16.5 H Eosinophils % 3.6 Basophils % 0.3 Nucleated Red Blood 0.0 Cells % Immature 0.020 Granulocytes # Neutrophils # 2.5 Lymphocytes # 0.6 L Monocytes # 0.6 Eosinophils # 0.1 Basophils # 0.0 Nucleated Red Blood 0.0 Cells # Sodium Level 138 Potassium Level 5.3 H Chloride Level 98 Carbon Dioxide Level 26 Anion Gap 14 H Blood Urea Nitrogen 54 H Creatinine 7.16 H Est Glomerular 6 L Filtrat Rate mL/min Glucose Level 144 Calcium Level 8.4 Test 08/14/18 12:13 Bedside Glucose 104 Imaging Imaging CXR 08/12/2018: Improving left lower lung infiltrate with residual infiltrate is seen peripherally. Medications Medication Current Medications Buspirone HCl (Buspar) 10 mg TID PO Last administered on 08/14/18 13:05; Admin Dose 10 MG; Start 08/10/18 at 09:00 Diltiazem HCl (Cardizem Cd) 120 mg DAILY PO Last administered on 08/14/18 10:00; Admin Dose 120 MG; Start 08/10/18 at 09:00 Furosemide (Lasix) 20 mg DAILY PO Last administered on 08/14/18 10:00; Admin Dose 20 MG; Start 08/10/18 at 09:00 Gabapentin (Neurontin) 300 mg TID PO Last administered on 08/14/18 13:05; Admin Dose 300 MG; Start 08/10/18 at 09:00 Metoprolol Tartrate (Lopressor) 25 mg BID PO Last administered on 08/14/18 10:00; Admin Dose 25 MG; Start 08/10/18 at 09:00 Pantoprazole (Protonix Tab) 40 mg AC BREAKFAST PO Last administered on 5/11/19at 06:06; Admin Dose 40 MG; Start 08/10/18 at 07:00 Sevelamer Carbonate (Renvela) 1.6 gm WITH MEALS PO Last administered on 08/14/18at 13:04; Admin Dose 1.6 GM; Start 08/10/18 at 08:00 Apixaban (Eliquis) 5 mg BID PO Last administered on 08/14/18at 08:52; Admin Dose 5 MG; Start 08/10/18 at 09:00 Vancomycin HCl (Vanco Iv Per Pharmacy) VANCOMYCIN PER PHARMACY PER PROTOCOL XX ; Start 08/09/18 at 23:30 Cefepime HCl 50 ml @ 100 mls/hr Q24H IVPB Last administered on 08/14/18at 08:53; Admin Dose 100 MLS/HR; Start 08/10/18 at 09:00 Acetaminophen (Tylenol Tab) 650 mg Q6H PRN PO MILD PAIN(1-3)OR ELEVATED TEMP Last administered on 08/13/18at 06:15; Admin Dose 650 MG; Start 08/09/18 at 23:30 Morphine Sulfate (morphine) 2 mg Q4H PRN IV SEVERE PAIN LEVEL 7-10 Last administered on 08/11/18at 05:01; Admin Dose 2 MG; Start 08/09/18 at 23:30 Guaifenesin/ Codeine Phosphate (Robitussin Ac Liquid Cup) 10 ml Q4H PRN PO COUGH Last administered on 08/14/18at 02:23; Admin Dose 10 ML; Start 08/09/18 at 23:30 Miscellaneous Information 1 ea NOTE XX ; Start 08/10/18 at 05:30 Glucose (Glutose) 15 gm Q15M PRN PO DECREASED GLUCOSE; Start 08/10/18 at 05:30 Glucose (Glutose) 22.5 gm Q15M PRN PO DECREASED GLUCOSE; Start 08/10/18 at 05:30 Dextrose (D50w Syringe) 25 ml Q15M PRN IV DECREASED GLUCOSE; Start 08/10/18 at 05:30 Dextrose (D50w Syringe) 50 ml Q15M PRN IV DECREASED GLUCOSE Last administered on 08/13/18at 21:34; Admin Dose 50 ML; Start 08/10/18 at 05:30 Glucagon (Glucagen) 1 mg Q15M PRN IM DECREASED GLUCOSE; Start 08/10/18 at 05:30 Glucose (Glutose) 15 gm Q15M PRN BUCCAL DECREASED GLUCOSE; Start 08/10/18 at 05:30 Insulin Aspart (Novolog Insulin Pen) NOVOLOG *MILD* ALGORI... AC MEALS AND BEDTIME SC Last administered on 08/13/18 12:38; Admin Dose 3 UNIT; Start 08/10/18 at 08:00 Diagnostic Test (Pha) (Accu-Chek) 1 ea 02 XX Last administered on 08/14/18 02:12; Admin Dose 1 EA; Start 08/11/18 at 02:00 Insulin Aspart (Novolog Insulin Pen) 10 unit WITH MEALS SC Last administered on 08/14/18 14:13; Admin Dose 10 UNIT; Start 08/11/18 at 08:00 Azithromycin (Zithromax) 500 mg DAILY PO Last administered on 08/14/18 08:52; Admin Dose 500 MG; Start 08/12/18 at 09:00; Stop 08/16/18 at 08:59 Docusate Sodium (Colace) 100 mg DAILY PO Last administered on 08/14/18 08:52; Admin Dose 100 MG; Start 08/12/18 at 09:00 Tramadol HCl (Ultram) 50 mg Q12H PRN PO PAIN; Start 08/11/18 at 13:30 Diclofenac Sodium (Voltaren 1% Gel) 2 gm BID TP Last administered on 08/14/18 08:56; Admin Dose 2 GM; Start 08/11/18 at 21:00 Acetaminophen/ Hydrocodone Bitart ([place] (5/325)) 1 tab Q4H PRN PO MODERATE PAIN LEVEL 4-6 Last administered on 08/14/18 09:59; Admin Dose 1 TAB; Start 08/12/18 at 15:00 Isosorbide Dinitrate (Isordil) 10 mg TID PO Last administered on 08/13/18 21:57; Admin Dose 10 MG; Start 08/12/18 at 21:00 Lorazepam (Ativan) 1 mg Q6H PRN IV ANXIETY Last administered on 08/14/18 12:09; Admin Dose 1 MG; Start 08/12/18 at 22:30 Heparin Sodium (Porcine) (Heparin (1000 Units/ml)) 4,000 unit AFTER DIALYSIS CATHETER ; Start 08/13/18 at 16:30 Insulin Glargine (Lantus) 14 units DAILY@0800 SC Last administered on 08/14/18at 09:22; Admin Dose 14 UNITS; Start 08/14/18 at 08:00 Senna (Senokot) 2 tab BID PRN PO CONSTIPATION Last administered on 08/14/18at 13:04; Admin Dose 2 TAB; Start 08/14/18 at 12:00 Miscellaneous Information (*Rx Drug Level Order Reminder*) 1 0500 ONCE XX ; Start 08/15/18 at 05:00; Stop 08/15/18 at 05:01 CORONA HOLLIS NP August 14, 2018 15:21
--- NOTE | 2018-08-14 15:52 | CONS ---
Assessment/Plan Assessment/Plan Hospital Course (Demo Recall) 1. pneumonia; however, 2. Hyperkalemia. 3. Elevated troponin. Patient has history of end-stage renal disease.? ACS 4. History of peripheral vascular disease. 5. End-stage renal disease, Thursday, , Thursday. 6. Anemia, likely anemia of chronic disease. 7. Peripheral vascular disease status post bypass of the left lower extremity. 8. Right foot ulcer with infection at the site of recent debridement. Cultures grew MSSA and Enterococcus. 9. History of central stenosis with apparent revascularization. 10. Status post placement of left IJ Permcath 06/2017. plan hd today Consultation Date/Type/Reason Admit Date/Time August 09, 2018 at 17:42 Initial Consult Date 08/10/18 Type of Consult pt will have hd today leg edema better avf us neg Requesting Provider: KIRSTIN SPANN MD Date/Time of Note DATE: 08/14/18 TIME: 15:50 24 HR Interval Summary Constitutional: other (no sob) Exam/Review of Systems Exam Vitals Vital Signs Date Temp Pulse Resp B/P (MAP) Pulse Ox O2 O2 Flow FiO2 Time Delivery Rate 08/14/18 98.0 66 22 138/66 96 Room Air 15:45 (90) 08/13/18 2.0 15:03 Intake and Output 08/13/18 08/13/18 08/14/18 1414:59 22:59 06:59 IntakeIntake Total 1000 ml 440 ml BalanceBalance 1000 ml 440 ml Neck: supple Respiratory: clear to auscultation Cardiovascular: regular rate and rhythm Gastrointestinal: soft, bowel sounds (+) Extremities: edema (+) Results Result Diagram: 08/14/18 0503 08/14/18 0503 Results 24hrs Laboratory Tests Test 08/13/18 17:22 08/13/18 21:28 08/13/18 21:52 08/13/18 23:09 Bedside Glucose 120 46 *L 166 Fasting Glucose 117 H Test 08/14/18 00:41 08/14/18 02:10 08/14/18 05:03 08/14/18 07:40 Bedside Glucose 125 117 135 White Blood Count 3.9 #L Red Blood Count 2.68 L Hemoglobin 9.2 L Hematocrit 29.5 L Mean Corpuscular 110.1 H Volume Mean Corpuscular 34.3 H Hemoglobin Mean Corpuscular 31.2 L Hemoglobin Concent Red Cell 16.8 H Distribution Width Platelet Count 252 Mean Platelet Volume 10.8 H Immature 0.500 H Granulocytes % Neutrophils % 63.9 Lymphocytes % 15.2 Monocytes % 16.5 H Eosinophils % 3.6 Basophils % 0.3 Nucleated Red Blood 0.0 Cells % Immature 0.020 Granulocytes # Neutrophils # 2.5 Lymphocytes # 0.6 L Monocytes # 0.6 Eosinophils # 0.1 Basophils # 0.0 Nucleated Red Blood 0.0 Cells # Sodium Level 138 Potassium Level 5.3 H Chloride Level 98 Carbon Dioxide Level 26 Anion Gap 14 H Blood Urea Nitrogen 54 H Creatinine 7.16 H Est Glomerular 6 L Filtrat Rate mL/min Glucose Level 144 Calcium Level 8.4 Test 08/14/18 12:13 Bedside Glucose 104 Medications Medication Current Medications Buspirone HCl (Buspar) 10 mg TID PO Last administered on 08/14/18 13:05; Admin Dose 10 MG; Start 08/10/18 at 09:00 Diltiazem HCl (Cardizem Cd) 120 mg DAILY PO Last administered on 08/14/18 10:00; Admin Dose 120 MG; Start 08/10/18 at 09:00 Furosemide (Lasix) 20 mg DAILY PO Last administered on 08/14/18 10:00; Admin Dose 20 MG; Start 08/10/18 at 09:00 Gabapentin (Neurontin) 300 mg TID PO Last administered on 08/14/18 13:05; Admin Dose 300 MG; Start 08/10/18 at 09:00 Metoprolol Tartrate (Lopressor) 25 mg BID PO Last administered on 08/14/18 10:00; Admin Dose 25 MG; Start 08/10/18 at 09:00 Pantoprazole (Protonix Tab) 40 mg AC BREAKFAST PO Last administered on 08/14/18 06:06; Admin Dose 40 MG; Start 08/10/18 at 07:00 Sevelamer Carbonate (Renvela) 1.6 gm WITH MEALS PO Last administered on 08/14/18 13:04; Admin Dose 1.6 GM; Start 08/10/18 at 08:00 Apixaban (Eliquis) 5 mg BID PO Last administered on 08/14/18 08:52; Admin Dose 5 MG; Start 08/10/18 at 09:00 Vancomycin HCl (Vanco Iv Per Pharmacy) VANCOMYCIN PER PHARMACY PER PROTOCOL XX ; Start 08/09/18 at 23:30 Cefepime HCl 50 ml @ 100 mls/hr Q24H IVPB Last administered on 08/14/18at 08:53; Admin Dose 100 MLS/HR; Start 08/10/18 at 09:00 Acetaminophen (Tylenol Tab) 650 mg Q6H PRN PO MILD PAIN(1-3)OR ELEVATED TEMP Last administered on 08/13/18at 06:15; Admin Dose 650 MG; Start 08/09/18 at 23:30 Morphine Sulfate (morphine) 2 mg Q4H PRN IV SEVERE PAIN LEVEL 7-10 Last administered on 08/11/18at 05:01; Admin Dose 2 MG; Start 08/09/18 at 23:30 Guaifenesin/ Codeine Phosphate (Robitussin Ac Liquid Cup) 10 ml Q4H PRN PO COUGH Last administered on 08/14/18at 02:23; Admin Dose 10 ML; Start 08/09/18 at 23:30 Miscellaneous Information 1 ea NOTE XX ; Start 08/10/18 at 05:30 Glucose (Glutose) 15 gm Q15M PRN PO DECREASED GLUCOSE; Start 08/10/18 at 05:30 Glucose (Glutose) 22.5 gm Q15M PRN PO DECREASED GLUCOSE; Start 08/10/18 at 05:30 Dextrose (D50w Syringe) 25 ml Q15M PRN IV DECREASED GLUCOSE; Start 08/10/18 at 05:30 Dextrose (D50w Syringe) 50 ml Q15M PRN IV DECREASED GLUCOSE Last administered on 08/13/18at 21:34; Admin Dose 50 ML; Start 08/10/18 at 05:30 Glucagon (Glucagen) 1 mg Q15M PRN IM DECREASED GLUCOSE; Start 08/10/18 at 05:30 Glucose (Glutose) 15 gm Q15M PRN BUCCAL DECREASED GLUCOSE; Start 08/10/18 at 05:30 Insulin Aspart (Novolog Insulin Pen) NOVOLOG *MILD* ALGORI... AC MEALS AND BEDTIME SC Last administered on 08/13/18at 12:38; Admin Dose 3 UNIT; Start 08/10/18 at 08:00 Diagnostic Test (Pha) (Accu-Chek) 1 ea 02 XX Last administered on 08/14/18 02:12; Admin Dose 1 EA; Start 08/11/18 at 02:00 Insulin Aspart (Novolog Insulin Pen) 10 unit WITH MEALS SC Last administered on 08/14/18 14:13; Admin Dose 10 UNIT; Start 08/11/18 at 08:00 Azithromycin (Zithromax) 500 mg DAILY PO Last administered on 08/14/18 08:52; Admin Dose 500 MG; Start 08/12/18 at 09:00; Stop 08/16/18 at 08:59 Docusate Sodium (Colace) 100 mg DAILY PO Last administered on 08/14/18 08:52; Admin Dose 100 MG; Start 08/12/18 at 09:00 Tramadol HCl (Ultram) 50 mg Q12H PRN PO PAIN; Start 08/11/18 at 13:30 Diclofenac Sodium (Voltaren 1% Gel) 2 gm BID TP Last administered on 08/14/18 08:56; Admin Dose 2 GM; Start 08/11/18 at 21:00 Acetaminophen/ Hydrocodone Bitart ([place] (5/325)) 1 tab Q4H PRN PO MODERATE PAIN LEVEL 4-6 Last administered on 08/14/18 09:59; Admin Dose 1 TAB; Start 08/12/18 at 15:00 Isosorbide Dinitrate (Isordil) 10 mg TID PO Last administered on 08/13/18 21:57; Admin Dose 10 MG; Start 08/12/18 at 21:00 Lorazepam (Ativan) 1 mg Q6H PRN IV ANXIETY Last administered on 08/14/18 12:09; Admin Dose 1 MG; Start 08/12/18 at 22:30 Heparin Sodium (Porcine) (Heparin (1000 Units/ml)) 4,000 unit AFTER DIALYSIS CATHETER ; Start 08/13/18 at 16:30 Insulin Glargine (Lantus) 14 units DAILY@0800 SC Last administered on 08/14/18 09:22; Admin Dose 14 UNITS; Start 08/14/18 at 08:00 Senna (Senokot) 2 tab BID PRN PO CONSTIPATION Last administered on 08/14/18 13:04; Admin Dose 2 TAB; Start 08/14/18 at 12:00 Miscellaneous Information (*Rx Drug Level Order Reminder*) 1 0500 ONCE XX ; Start 08/15/18 at 05:00; Stop 08/15/18 at 05:01 ZOFIA REAL MD August 14, 2018 15:52
[2018-08-14] MEDS: GLUCOSE GEL 15 GRAM TUBE BUCCAL PRN ×2 (18:50→19:18)
[2018-08-14] MEDS: HEPARIN 1000 UNITS/ML 10 ML INJ CATHETER SCH (23:35)
[2018-08-15] VITALS (12 sets, daily range): BP systolic 124–180; BP diastolic 61–75; PULSE 62–84; RESP 19–22
[2018-08-15] MEDS: ACETAMINOPHEN 325 MG TAB PO PRN ×2 (00:15→20:27)
[2018-08-15] MEDS: LORAZEPAM 2 MG INJ IV PRN ×2 (01:04→09:21)
[2018-08-15] MEDS: ACCU-CHEK XX SCH (01:48)
--- NOTE | 2018-08-15 05:23 | PN ---
Date/Time of Note Date/Time of Note DATE: 08/15/18 TIME: 05:22 Assessment/Plan VTE Prophylaxis Risk score (from Ns)>0 risk: 5 SCD applied (from Ns): No Lines/Catheters IV Catheter Type (from [facility] [place] Urinary Cath still in place: No Assessment/Plan Assessment/Plan --Hyperkalemia- SP Kayexalate- bmp am -Healthcare associated pneumonia, continue broad-spectrum antibiotics, Dr. Lucas is following in infection disease consultation. -Dialysis dependent end-stage renal disease. Dr. Spicer is following in nephrology consultation. -Elevated troponin, Dr. William is following in cardiology consultation. -Atrial fibrillation, continue metoprolol and Eliquis. -Anemia of chronic disease -Diabetes mellitus type 2 with hemoglobin A1c of 6.5, continue Lantus and NovoLog -Peripheral vascular disease history of left lower extremity bypass surgery. -Right foot ulcer. Dr. Pineda is following and podiatry consultation. Disposition: to assisted living facility when symptoms resolve and cleared by c onsultants. Further recommendations based on clinical course. Plan of care discussed with Dr. Cordero. Result Diagram: 08/14/18 0503 08/14/18 0503 Results 24hrs Laboratory Tests Test 08/14/18 07:40 08/14/18 12:13 08/14/18 17:56 08/14/18 18:44 Bedside Glucose 135 104 56 L 67 L Test 08/14/18 19:14 08/14/18 19:39 08/14/18 20:42 Bedside Glucose 68 L 67 L 106 Exam/Review of Systems Exam Vitals Vital Signs Date Temp Pulse Resp B/P (MAP) Pulse Ox O2 O2 Flow FiO2 Time Delivery Rate 08/15/18 67 04:00 08/15/18 98.2 19 124/74 90 03:51 (91) 08/14/18 Room Air 20:05 08/13/18 2.0 15:03 Intake and Output 08/14/18 08/14/18 08/15/18 1515:00 23:00 07:00 IntakeIntake Total 1200 ml OutputOutput Total 2400 ml BalanceBalance 1200 ml -2400 ml Results Results 24hrs Laboratory Tests Test 08/14/18 07:40 08/14/18 12:13 08/14/18 17:56 08/14/18 18:44 Bedside Glucose 135 104 56 L 67 L Test 08/14/18 19:14 08/14/18 19:39 08/14/18 20:42 Bedside Glucose 68 L 67 L 106 Medications Medication Current Medications Buspirone HCl (Buspar) 10 mg TID PO Last administered on 08/14/18 22:41; Admin Dose 10 MG; Start 08/10/18 at 09:00 Diltiazem HCl (Cardizem Cd) 120 mg DAILY PO Last administered on 08/14/18 10:00; Admin Dose 120 MG; Start 08/10/18 at 09:00 Furosemide (Lasix) 20 mg DAILY PO Last administered on 08/14/18 10:00; Admin Dose 20 MG; Start 08/10/18 at 09:00 Gabapentin (Neurontin) 300 mg TID PO Last administered on 08/14/18 22:41; Admin Dose 300 MG; Start 08/10/18 at 09:00 Metoprolol Tartrate (Lopressor) 25 mg BID PO Last administered on 08/14/18 23:40; Admin Dose 25 MG; Start 08/10/18 at 09:00 Pantoprazole (Protonix Tab) 40 mg AC BREAKFAST PO Last administered on 08/14/18 06:06; Admin Dose 40 MG; Start 08/10/18 at 07:00 Sevelamer Carbonate (Renvela) 1.6 gm WITH MEALS PO Last administered on 08/14/18 17:54; Admin Dose 1.6 GM; Start 08/10/18 at 08:00 Apixaban (Eliquis) 5 mg BID PO Last administered on 08/14/18 22:41; Admin Dose 5 MG; Start 08/10/18 at 09:00 Vancomycin HCl (Vanco Iv Per Pharmacy) VANCOMYCIN PER PHARMACY PER PROTOCOL XX ; Start 08/09/18 at 23:30 Cefepime HCl 50 ml @ 100 mls/hr Q24H IVPB Last administered on 08/14/18 08:53; Admin Dose 100 MLS/HR; Start 08/10/18 at 09:00 Acetaminophen (Tylenol Tab) 650 mg Q6H PRN PO MILD PAIN(1-3)OR ELEVATED TEMP Last administered on 08/15/18 00:15; Admin Dose 650 MG; Start 08/09/18 at 23:30 Morphine Sulfate (morphine) 2 mg Q4H PRN IV SEVERE PAIN LEVEL 7-10 Last administered on 08/11/18 05:01; Admin Dose 2 MG; Start 08/09/18 at 23:30 Guaifenesin/ Codeine Phosphate (Robitussin Ac Liquid Cup) 10 ml Q4H PRN PO COU GH Last administered on 08/14/18 02:23; Admin Dose 10 ML; Start 08/09/18 at 23:30 Miscellaneous Information 1 ea NOTE XX ; Start 08/10/18 at 05:30 Glucose (Glutose) 15 gm Q15M PRN PO DECREASED GLUCOSE; Start 08/10/18 at 05:30 Glucose (Glutose) 22.5 gm Q15M PRN PO DECREASED GLUCOSE; Start 08/10/18 at 05:30 Dextrose (D50w Syringe) 25 ml Q15M PRN IV DECREASED GLUCOSE; Start 08/10/18 at 05:30 Dextrose (D50w Syringe) 50 ml Q15M PRN IV DECREASED GLUCOSE Last administered on 08/13/18at 21:34; Admin Dose 50 ML; Start 08/10/18 at 05:30 Glucagon (Glucagen) 1 mg Q15M PRN IM DECREASED GLUCOSE; Start 08/10/18 at 05:30 Glucose (Glutose) 15 gm Q15M PRN BUCCAL DECREASED GLUCOSE Last administered on 08/14/18 19:18; Admin Dose 15 GM; Start 08/10/18 at 05:30 Insulin Aspart (Novolog Insulin Pen) NOVOLOG *MILD* ALGORI... AC MEALS AND BEDTIME SC Last administered on 08/13/18 12:38; Admin Dose 3 UNIT; Start 08/10/18 at 08:00 Diagnostic Test (Pha) (Accu-Chek) 1 ea 02 XX Last administered on 08/14/18 02:12; Admin Dose 1 EA; Start 08/11/18 at 02:00 Insulin Aspart (Novolog Insulin Pen) 10 unit WITH MEALS SC Last administered on 08/14/18 14:13; Admin Dose 10 UNIT; Start 08/11/18 at 08:00 Azithromycin (Zithromax) 500 mg DAILY PO Last administered on 08/14/18 08:52; Admin Dose 500 MG; Start 08/12/18 at 09:00; Stop 08/16/18 at 08:59 Docusate Sodium (Colace) 100 mg DAILY PO Last administered on 08/14/18 08:52; Admin Dose 100 MG; Start 08/12/18 at 09:00 Tramadol HCl (Ultram) 50 mg Q12H PRN PO PAIN; Start 08/11/18 at 13:30 Diclofenac Sodium (Voltaren 1% Gel) 2 gm BID TP Last administered on 08/14/18 20:44; Admin Dose 2 GM; Start 08/11/18 at 21:00 Acetaminophen/ Hydrocodone Bitart ([place] (5/325)) 1 tab Q4H PRN PO MODERATE PAIN LEVEL 4-6 Last administered on 08/14/18 18:07; Admin Dose 1 TAB; Start 08/12/18 at 15:00 Isosorbide Dinitrate (Isordil) 10 mg TID PO Last administered on 08/14/18 23:40; Admin Dose 10 MG; Start 08/12/18 at 21:00 Lorazepam (Ativan) 1 mg Q6H PRN IV ANXIETY Last administered on 08/15/18 01:04; Admin Dose 1 MG; Start 08/12/18 at 22:30 Heparin Sodium (Porcine) (Heparin (1000 Units/ml)) 4,000 unit AFTER DIALYSIS CATHETER Last administered on 08/14/18 23:35; Admin Dose 4,700 UNIT; Start 08/13/18 at 16:30 Insulin Glargine (Lantus) 14 units DAILY@0800 SC Last administered on 08/14/18 09:22; Admin Dose 14 UNITS; Start 08/14/18 at 08:00 Senna (Senokot) 2 tab BID PRN PO CONSTIPATION Last administered on 08/14/18 13:04; Admin Dose 2 TAB; Start 08/14/18 at 12:00 VIOLET RUDOLPH August 15, 2018 05:23
[2018-08-15] MEDS: PANTOPRAZOLE (EC) 40 MG TAB PO SCH (06:42)
[2018-08-15] MEDS: GUAIFENESIN/CODEINE 5ML CUP PO PRN ×2 (06:51→15:36)
[2018-08-15] MEDS ORDERED: ALBU18HF INHALATION (06:57)
[2018-08-15] MEDS: AZITHROMYCIN 500 MG TAB PO SCH (08:26)
[2018-08-15] MEDS: BUSPIRONE 10 MG TAB PO SCH ×3 (08:26→20:19)
[2018-08-15] MEDS: DOCUSATE SODIUM 100 MG CAP PO SCH (08:26)
[2018-08-15] MEDS: SEVELAMER CARBONATE 0.8 GM PKT PO SCH ×3 (08:26→17:49)
[2018-08-15] MEDS: GABAPENTIN 300 MG CAP PO SCH ×3 (08:26→20:17)
[2018-08-15] MEDS: APIXABAN 5 MG TABLET PO SCH ×2 (08:26→20:17)
[2018-08-15] MEDS: FUROSEMIDE 20 MG TAB PO SCH (08:27)
[2018-08-15] MEDS: METOPROLOL 25 MG TAB PO SCH ×2 (08:27→20:18)
[2018-08-15] MEDS: DILTIAZEM (CD) 120 MG CAP PO SCH (08:28)
[2018-08-15] MEDS: ISOSORBIDE DINITRATE 10 MG TAB PO SCH ×3 (08:28→20:18)
[2018-08-15] MEDS: CEFEPIME 1GM/50 ML (PMX) 50 ML IVPB SCH (08:28)
[2018-08-15] MEDS: DICLOFENAC SODIUM 1% GEL 100 GM TUBE TP SCH ×2 (08:28→20:19)
[2018-08-15] MEDS: INSULIN GLARGINE [LANTus] (100 UNITS/ML) SYG SC SCH (08:32)
[2018-08-15] MEDS: INSULIN ASPART [NOVOLOG] 3 ML PEN SC SCH ×7 (08:39→20:18)
[2018-08-15] MEDS ORDERED: ONDANSETRON 4 MG INJ IV PRN (11:00)
--- NOTE | 2018-08-15 11:55 | CONS ---
Assessment/Plan Assessment/Plan Hospital Course (Demo Recall) 1. End-stage renal disease, Thursday, , Thursday. 2. Hyperkalemia, resolving with HD. 3. Elevated troponin. Patient has history of end-stage renal disease. 4. History of peripheral vascular disease. 5. Pneumonia, 6. Anemia, likely anemia of chronic disease. 7. Peripheral vascular disease status post bypass of the left lower extremity. 8. Right foot ulcer with infection at the site of recent debridement. Cultures grew MRSA and Enterococcus. 9. History of central stenosis with apparent revascularization. 10. Status post placement of left IJ Permcath 06/2017. 11. Obesity Assessment/Plan (Daily) -renal diet -breathing treatment -c/w HD TTHSAt -avf us neg -start epogen -c/w Renvela w/meals Consultation Date/Type/Reason Admit Date/Time August 09, 2018 at 17:42 Initial Consult Date 08/10/18 Type of Consult 08/11/2018 Reason for Consultation nephrology Requesting Provider: KIRSTIN SPANN MD Date/Time of Note DATE: 08/15/18 TIME: 11:54 24 HR Interval Summary Free Text/Dictation SOB Exam/Review of Systems Exam Vitals Vital Signs Date Temp Pulse Resp B/P (MAP) Pulse Ox O2 O2 Flow FiO2 Time Delivery Rate 08/15/18 98.7 64 22 137/68 11:30 (91) 08/15/18 95 Room Air 07:33 08/13/18 2.0 15:03 Intake and Output 08/14/18 08/14/18 08/15/18 1515:00 23:00 07:00 IntakeIntake Total 1200 ml 600 ml OutputOutput Total 4400 ml BalanceBalance 1200 ml -3800 ml Exam left chest Permcath Constitutional: alert, oriented Neck: supple Respiratory: diminished breath sounds, labored breathing, wheezing Cardiovascular: regular rate and rhythm Gastrointestinal: soft Musculoskeletal: swelling (righ foot) Extremities: clubbing Results Result Diagram: 08/14/18 0503 08/14/18 0503 Results 24hrs Laboratory Tests Test 08/14/18 12:13 08/14/18 17:56 08/14/18 18:44 08/14/18 19:14 Bedside Glucose 104 56 L 67 L 68 L Test 08/14/18 19:39 08/14/18 20:42 08/15/18 05:03 08/15/18 08:24 Bedside Glucose 67 L 106 191 Random Vancomycin 16.5 Level Medications Medication Current Medications Buspirone HCl (Buspar) 10 mg TID PO Last administered on 08/15/18 08:26; Admin Dose 10 MG; Start 08/10/18 at 09:00 Diltiazem HCl (Cardizem Cd) 120 mg DAILY PO Last administered on 08/15/18 08:28; Admin Dose 120 MG; Start 08/10/18 at 09:00 Furosemide (Lasix) 20 mg DAILY PO Last administered on 08/15/18 08:27; Admin Dose 20 MG; Start 08/10/18 at 09:00 Gabapentin (Neurontin) 300 mg TID PO Last administered on 08/15/18 08:26; Admin Dose 300 MG; Start 08/10/18 at 09:00 Metoprolol Tartrate (Lopressor) 25 mg BID PO Last administered on 08/15/18 08:27; Admin Dose 25 MG; Start 08/10/18 at 09:00 Pantoprazole (Protonix Tab) 40 mg AC BREAKFAST PO Last administered on 08/15/18 06:42; Admin Dose 40 MG; Start 08/10/18 at 07:00 Sevelamer Carbonate (Renvela) 1.6 gm WITH MEALS PO Last administered on 08/15/18 08:26; Admin Dose 1.6 GM; Start 08/10/18 at 08:00 Apixaban (Eliquis) 5 mg BID PO Last administered on 08/15/18 08:26; Admin Dose 5 MG; Start 08/10/18 at 09:00 Vancomycin HCl (Vanco Iv Per Pharmacy) VANCOMYCIN PER PHARMACY PER PROTOCOL XX ; Start 08/09/18 at 23:30 Cefepime HCl 50 ml @ 100 mls/hr Q24H IVPB Last administered on 08/15/18 08:28; Admin Dose 100 MLS/HR; Start 08/10/18 at 09:00 Acetaminophen (Tylenol Tab) 650 mg Q6H PRN PO MILD PAIN(1-3)OR ELEVATED TEMP Last administered on 08/15/18 00:15; Admin Dose 650 MG; Start 08/09/18 at 23:30 Morphine Sulfate (morphine) 2 mg Q4H PRN IV SEVERE PAIN LEVEL 7-10 Last administered on 08/11/18 05:01; Admin Dose 2 MG; Start 08/09/18 at 23:30 Guaifenesin/ Codeine Phosphate (Robitussin Ac Liquid Cup) 10 ml Q4H PRN PO COUGH Last administered on 08/15/18 06:51; Admin Dose 10 ML; Start 08/09/18 at 23:30 Miscellaneous Information 1 ea NOTE XX ; Start 08/10/18 at 05:30 Glucose (Glutose) 15 gm Q15M PRN PO DECREASED GLUCOSE; Start 08/10/18 at 05:30 Glucose (Glutose) 22.5 gm Q15M PRN PO DECREASED GLUCOSE; Start 08/10/18 at 05:30 Dextrose (D50w Syringe) 25 ml Q15M PRN IV DECREASED GLUCOSE; Start 08/10/18 at 05:30 Dextrose (D50w Syringe) 50 ml Q15M PRN IV DECREASED GLUCOSE Last administered on 08/13/18at 21:34; Admin Dose 50 ML; Start 08/10/18 at 05:30 Glucagon (Glucagen) 1 mg Q15M PRN IM DECREASED GLUCOSE; Start 08/10/18 at 05:30 Glucose (Glutose) 15 gm Q15M PRN BUCCAL DECREASED GLUCOSE Last administered on 08/14/18 19:18; Admin Dose 15 GM; Start 08/10/18 at 05:30 Insulin Aspart (Novolog Insulin Pen) NOVOLOG *MILD* ALGORI... AC MEALS AND BEDTIME SC Last administered on 08/15/18 08:39; Admin Dose 2 UNIT; Start 08/10 at 08:00 Diagnostic Test (Pha) (Accu-Chek) 1 ea 02 XX Last administered on 08/14/18at 02:12; Admin Dose 1 EA; Start 08/11/18 at 02:00 Insulin Aspart (Novolog Insulin Pen) 10 unit WITH MEALS SC Last administered on 08/15/18 08:39; Admin Dose 10 UNIT; Start 08/11/18 at 08:00 Azithromycin (Zithromax) 500 mg DAILY PO Last administered on 08/15/18 08:26; Admin Dose 500 MG; Start 08/12/18 at 09:00; Stop 08/16/18 at 08:59 Docusate Sodium (Colace) 100 mg DAILY PO Last administered on 08/15/18 08:26; Admin Dose 100 MG; Start 08/12/18 at 09:00 Tramadol HCl (Ultram) 50 mg Q12H PRN PO PAIN; Start 08/11/18 at 13:30 Diclofenac Sodium (Voltaren 1% Gel) 2 gm BID TP Last administered on 08/15/18 08:28; Admin Dose 2 GM; Start 08/11/18 at 21:00 Acetaminophen/ Hydrocodone Bitart ([place] (5/325)) 1 tab Q4H PRN PO MODERATE PAIN LEVEL 4-6 Last administered on 08/14/18 18:07; Admin Dose 1 TAB; Start at 15:00 Isosorbide Dinitrate (Isordil) 10 mg TID PO Last administered on 08/15/18 08:28; Admin Dose 10 MG; Start 08/12/18 at 21:00 Lorazepam (Ativan) 1 mg Q6H PRN IV ANXIETY Last administered on 08/15/18 09:21; Admin Dose 1 MG; Start 08/12/18 at 22:30 Heparin Sodium (Porcine) (Heparin (1000 Units/ml)) 4,000 unit AFTER DIALYSIS CATHETER Last administered on 08/14/18 23:35; Admin Dose 4,700 UNIT; Start 08/13/18 at 16:30 Insulin Glargine (Lantus) 14 units DAILY@0800 SC Last administered on 08/15/18 08:32; Admin Dose 14 UNITS; Start 08/14/18 at 08:00 Senna (Senokot) 2 tab BID PRN PO CONSTIPATION Last administered on 08/14/18at 13:04; Admin Dose 2 TAB; Start 08/14/18 at 12:00 Albuterol/ Ipratropium (Duoneb) 3 ml Q6H RESP THERAPY PRN HHN SHORTNESS OF BREATH; Start 08/15/18 at 11:00 Ondansetron HCl (Zofran Inj) 4 mg Q6H PRN IV NAUSEA AND/OR VOMITING; Start 08/15/18 at 11:00 Vancomycin HCl 250 ml @ 125 mls/hr ONCE IVPB ; Start 08/15/18 at 13:00; Stop 08/15/18 at 23:59 KUNAL RAMOS August 15, 2018 11:55
[2018-08-15] MEDS ORDERED: VANCOMYCIN 1 GM 250 ML IVPB SCH (13:00)
[2018-08-15] MEDS ORDERED: ALBUTEROL 0.083% (NEB) 2.5 MG/3 ML AMP HHN SCH (14:00)
[2018-08-15] MEDS ORDERED: IPRATROPIUM (NEB) 0.5 MG/2.5 ML AMP HHN SCH (14:00)
--- NOTE | 2018-08-15 14:40 | CONS ---
Consult Date/Type/Reason Admit Date/Time August 09, 2018 at 17:42 Initial Consult Date 08/10/18 Requesting Provider: KIRSTIN SPANN MD Date/Time of Note DATE: 08/15/18 TIME: 14:37 Subjective NO acute events - pt feels better - I addressed stress test with her again - she refused adamantly. Will -plan or med rx now - consider [facility] as outpt per DR. William. ROS: No fever, no chills, no nausea, no vomiting, no diarrhea/constipation No recent weight changes No chest pain, no PND, no orthopnea - mild SOB, chronic No dizziness, blurred vision No thirst, no heat or cold intolerance Objective Vitals Vital Signs Date Temp Pulse Resp B/P (MAP) Pulse Ox O2 O2 Flow FiO2 Time Delivery Rate 08/15/18 70 12:00 08/15/18 98.7 22 137/68 11:30 (91) 08/15/18 95 Room Air 07:33 08/13/18 2.0 15:03 Intake and Output 08/14/18 08/14/18 08/15/18 1515:00 23:00 07:00 IntakeIntake Total 1200 ml 600 ml OutputOutput Total 4400 ml BalanceBalance 1200 ml -3800 ml Exam General: WN/WD/NAD, AOx 3 HEENT: Unicetric/atraumatic/EOMI (follow commands) NECK: JVD elevated, no thyromegaly Lymph: no lymphadenopathy HEART: regular with no S3, II/ systolic murmur at apex, PMI L LUNGS: Coarse sounds ABD: soft, NT, ND, +BS : Intact Neuro: non focal SKIN: chronic changes EXT: 1-2+ edema Results/Medications Result Diagram: 08/14/18 0503 08/14/18 0503 Results 24 hrs Laboratory Tests Test 08/14/18 17:56 08/14/18 18:44 08/14/18 19:14 08/14/18 19:39 Bedside Glucose 56 L 67 L 68 L 67 L Test 08/14/18 20:42 08/15/18 05:03 08/15/18 08:24 08/15/18 12:10 Bedside Glucose 106 191 164 Random Vancomycin 16.5 Level Home Meds Reported Medications Albuterol Sulfate* (Ventolin HFA*) 18 Gm Hfa.aer.ad, 2 PUFF INHALATION Q6H, #1 INHALER 08/15/18 Metoprolol Tartrate* (Lopressor*) 25 Mg Tab, 25 MG PO BID, #60 TAB 08/09/18 Pantoprazole* (Pantoprazole*) 40 Mg Tablet.dr, 40 MG PO AC BREAKFAST, TAB 08/09/18 Diltiazem Hcl* (Diltiazem XT) 120 Mg Capsule.sa, 120 MG PO DAILY, #30 CAP 08/09/18 Amlodipine Besylate* (Norvasc*) 5 Mg Tablet, 5 MG PO DAILY, TAB 08/09/18 Buspirone Hcl* (Buspirone Hcl*) 10 Mg Tab, 10 MG PO TID, TAB 08/09/18 Furosemide* (Furosemide*) 20 Mg Tablet, 20 MG PO DAILY, #60 TAB 08/09/18 Gabapentin* (Gabapentin*) 300 Mg Capsule, 300 MG PO TID, #90 CAP 08/09/18 Methocarbamol* (Methocarbamol*) 500 Mg Tablet, 500 MG PO DAILY, TAB 08/09/18 Sevelamer Hcl* (Renagel*) 800 Mg Tablet, 1600 MG PO WITH MEALS, TAB 08/09/18 Apixaban* (Eliquis*) 5 Mg Tablet, 5 MG PO BID, TAB 08/09/18 Discontinued Reported Medications Insulin Aspart* (Novolog Insulin Pen*) 100 Unit/Ml Soln, 0 SC .SLIDING SCALE AC, EA 06/17/17 Insulin Glargine* (Lantus*) 100 Unit/Ml Soln, 40 UNIT SC QHS, #1 VIAL 06/17/17 Discontinued Scripts Oseltamivir Phosphate* (Tamiflu*) 30 Mg Capsule, 30 MG PO DAILY for 2 Days, CAP Prov:VIOLET RUDOLPH 07/02/17 Menthol/Methyl Salicylate (Analgesic [place]) 28 Gm Oint...g., 1 APPLIC TOP TID PRN for PAIN, #1 Prov:VIOLET RUDOLPH 07/02/17 Lactulose* (Lactulose*) 20 Gm/30 Ml Solution, 30 GM PO BID PRN for CONSTIPATION for 30 Days Prov:VIOLET RUDOLPH 07/02/17 Hydrocodone Bit-Acetaminophen (Hydrocodone Bit-APAP) 5-325MG Tablet, 1 TAB PO Q6H PRN for MODERATE PAIN LEVEL 4-6, #20 TAB Prov:VIOLET RUDOLPH 07/02/17 Duloxetine Hcl* (Cymbalta*) 30 Mg Capsule.dr, 30 MG PO BID for 30 Days Prov:VIOLET RUDOLPH 07/02/17 Docusate Sodium (Dok) 100 Mg Capsule, 100 MG PO Q12H PRN for CONSTIPATION for 30 Days, CAP Prov:VIOLET RUDOLPH 07/02/17 Buspirone Hcl* (Buspar*) 5 Mg Tab, 5 MG PO BID for 30 Days, TAB Prov:VIOLET RUDOLPH 07/02/17 Albuterol Sulfate* (Ventolin HFA*) 18 Gm Hfa.aer.ad, 2 PUFF INHALATION Q6H RESP THERAPY, #1 Prov:VIOLET RUDOLPH 07/02/17 Alprazolam* (Alprazolam*) 0.25 Mg Tablet, 0.25 MG PO Q6H PRN for ANXIETY, #30 TAB Prov:ANTHONY DUPREE 02/04/17 Apixaban* (Eliquis*) 5 Mg Tablet, 2.5 MG PO BID for 30 Days, TAB Prov:ANTHONY DUPREE 02/04/17 Hydrocodone/Acetaminophen (Hydrocodon-Acetaminoph 7.5-325) 1 Each Tablet, 1 TAB PO Q6H PRN for pain, #30 TAB Prov:ANTHONY DUPREE 02/04/17 Albuterol Sulfate* (Ventolin HFA*) 18 Gm Hfa.aer.ad, 2 PUFF INHALATION Q4H for 30 Days, #1 INHALER Prov:ANTHONY DUPREE 02/04/17 Linagliptin (TRADJENTA) 5 Mg Tablet, 5 MG PO DAILY for 30 Days, TAB Prov:ANTHONY DUPREE 02/04/17 Pantoprazole* (Pantoprazole*) 40 Mg Tablet.dr, 40 MG PO AC BREAKFAST for 30 Days, TAB Prov:ANTHONY DUPREE 02/04/17 Sevelamer Carbonate* (Renvela*) 800 Mg Tablet, 0.8 GM PO WITH MEALS for 30 Days, TAB Prov:ANTHONY DUPREE 02/04/17 Multivit/Ca Carb/B Cmplx/Fa* (Addie-Mikayla*) 1 Tab Tab, 1 TAB PO DAILY for 30 Days, TAB [facility] 02/04/17 Folic Acid* (Folic Acid*) 1 Mg Tablet, 1 MG PO DAILY for 30 Days, TAB Prov:ANTHONY 02/04/17 Clonidine Hcl* (Clonidine Hcl*) 0.2 Mg Tablet, 0.2 MG PO TID PRN for HTN for 30 Days, TAB [facility] 02/04/17 Clopidogrel Bisulfate* (Clopidogrel Bisulfate*) 75 Mg Tablet, 75 MG PO DAILY, #30 TAB [facility] 02/04/17 Carvedilol* (Carvedilol*) 6.25 Mg Tablet, 6.25 MG PO DAILY, #60 TAB Prov[facility] 02/04/17 Gabapentin* (Gabapentin*) 300 Mg Capsule, 300 MG PO BID, #60 CAP [facility] 02/04/17 Atorvastatin* (Atorvastatin*) 40 Mg Tablet, 40 MG PO QHS, #30 TAB [facility] 02/04/17 Amlodipine Besylate* (Amlodipine Besylate*) 10 Mg Tablet, 10 MG PO DAILY, #30 TAB [facility] 02/04/17 Medications Current Medications Buspirone HCl (Buspar) 10 mg TID PO Last administered on 08/15/18at 12:11; Admin Dose 10 MG; Start 08/10/18 at 09:00 Diltiazem HCl (Cardizem Cd) 120 mg DAILY PO Last administered on 08/15/18 08:28; Admin Dose 120 MG; Start 08/10/18 at 09:00 Furosemide (Lasix) 20 mg DAILY PO Last administered on 08/15/18at 08:27; Admin Dose 20 MG; Start 08/10/18 at 09:00 Gabapentin (Neurontin) 300 mg TID PO Last administered on 08/15/18at 12:11; Admin Dose 300 MG; Start 08/10/18 at 09:00 Metoprolol Tartrate (Lopressor) 25 mg BID PO Last administered on 08/15/18 08:27; Admin Dose 25 MG; Start 08/10/18 at 09:00 Pantoprazole (Protonix Tab) 40 mg AC BREAKFAST PO Last administered on 08/15/18 06:42; Admin Dose 40 MG; Start 08/10/18 at 07:00 Sevelamer Carbonate (Renvela) 1.6 gm WITH MEALS PO Last administered on 08/15/18 12:11; Admin Dose 1.6 GM; Start 08/10/18 at 08:00 Apixaban (Eliquis) 5 mg BID PO Last administered on 08/15/18 08:26; Admin Dose 5 MG; Start 08/10/18 at 09:00 Vancomycin HCl (Vanco Iv Per Pharmacy) VANCOMYCIN PER PHARMACY PER PROTOCOL XX ; Start 08/09/18 at 23:30 Cefepime HCl 50 ml @ 100 mls/hr Q24H IVPB Last administered on 08/15/18 08:28; Admin Dose 100 MLS/HR; Start 08/10/18 at 09:00 Acetaminophen (Tylenol Tab) 650 mg Q6H PRN PO MILD PAIN(1-3)OR ELEVATED TEMP Last administered on 08/15/18 00:15; Admin Dose 650 MG; Start 08/09/18 at 23:30 Morphine Sulfate (morphine) 2 mg Q4H PRN IV SEVERE PAIN LEVEL 7-10 Last administered on 08/11/18 05:01; Admin Dose 2 MG; Start 08/09/18 at 23:30 Guaifenesin/ Codeine Phosphate (Robitussin Ac Liquid Cup) 10 ml Q4H PRN PO COUGH Last administered on 08/15/18 06:51; Admin Dose 10 ML; Start 08/09/18 at 23:30 Miscellaneous Information 1 ea NOTE XX ; Start 08/10/18 at 05:30 Glucose (Glutose) 15 gm Q15M PRN PO DECREASED GLUCOSE; Start 08/10/18 at 05:30 Glucose (Glutose) 22.5 gm Q15M PRN PO DECREASED GLUCOSE; Start 08/10/18 at 05:30 Dextrose (D50w Syringe) 25 ml Q15M PRN IV DECREASED GLUCOSE; Start 08/10/18 at 05:30 Dextrose (D50w Syringe) 50 ml Q15M PRN IV DECREASED GLUCOSE Last administered on 08/13/18 21:34; Admin Dose 50 ML; Start 08/10/18 at 05:30 Glucagon (Glucagen) 1 mg Q15M PRN IM DECREASED GLUCOSE; Start 08/10/18 at 05:30 Glucose (Glutose) 15 gm Q15M PRN BUCCAL DECREASED GLUCOSE Last administered on 08/14/18 19:18; Admin Dose 15 GM; Start 08/10/18 at 05:30 Insulin Aspart (Novolog Insulin Pen) NOVOLOG *MILD* ALGORI... AC MEALS AND BEDTIME SC Last administered on 08/15/18 12:23; Admin Dose 1 UNIT; Start 08/10/18 at 08:00 Diagnostic Test (Pha) (Accu-Chek) 1 ea 02 XX Last administered on 08/14/18 02:12; Admin Dose 1 EA; Start 08/11/18 at 02:00 Insulin Aspart (Novolog Insulin Pen) 10 unit WITH MEALS SC Last administered on 08/15/18 12:24; Admin Dose 10 UNIT; Start 08/11/18 at 08:00 Azithromycin (Zithromax) 500 mg DAILY PO Last administered on 08/15/18 08:26; Admin Dose 500 MG; Start 08/12/18 at 09:00; Stop 08/16/18 at 08:59 Docusate Sodium (Colace) 100 mg DAILY PO Last administered on 08/15/18 08:26; Admin Dose 100 MG; Start 08/12/18 at 09:00 Tramadol HCl (Ultram) 50 mg Q12H PRN PO PAIN; Start 08/11/18 at 13:30 Diclofenac Sodium (Voltaren 1% Gel) 2 gm BID TP Last administered on 08/15/18 08:28; Admin Dose 2 GM; Start 08/11/18 at 21:00 Acetaminophen/ Hydrocodone Bitart ([place] (5/325)) 1 tab Q4H PRN PO MODERATE PAIN LEVEL 4-6 Last administered on 08/14/18 18:07; Admin Dose 1 TAB; Start 08/12/18 at 15:00 Isosorbide Dinitrate (Isordil) 10 mg TID PO Last administered on 08/15/18 12:12; Admin Dose 10 MG; Start 08/12/18 at 21:00 Lorazepam (Ativan) 1 mg Q6H PRN IV ANXIETY Last administered on 08/15/18 09:21; Admin Dose 1 MG; Start 08/12/18 at 22:30 Heparin Sodium (Porcine) (Heparin (1000 Units/ml)) 4,000 unit AFTER DIALYSIS CATHETER Last administered on 08/14/18at 23:35; Admin Dose 4,700 UNIT; Start 08/13/18 at 16:30 Insulin Glargine (Lantus) 14 units DAILY@0800 SC Last administered on 08/15/18at 08:32; Admin Dose 14 UNITS; Start 08/14/18 at 08:00 Senna (Senokot) 2 tab BID PRN PO CONSTIPATION Last administered on 08/14/18 13:04; Admin Dose 2 TAB; Start 08/14/18 at 12:00 Albuterol/ Ipratropium (Duoneb) 3 ml Q6H RESP THERAPY PRN HHN SHORTNESS OF BREATH; Start 08/15/18 at 11:00 Ondansetron HCl (Zofran Inj) 4 mg Q6H PRN IV NAUSEA AND/OR VOMITING; Start 08/15/18 at 11:00 Vancomycin HCl 250 ml @ 125 mls/hr ONCE IVPB Last administered on 08/15/18at 12:11; Admin Dose 125 MLS/HR; Start 08/15/18 at 13:00; Stop 08/15/18 at 23:59 Epoetin Bam-epbx (Retacrit (Esrd)) 4,000 unit TuThSa@1700 SC ; Start 08/17/18 at 17:00 Assessment/Plan Hospital Course (Demo Recall) 1. Positive troponin, assess significance in the setting of renal failure, likely type 2 demand infarct in the setting of pneumoni - declined Stress test - will re-evaluate with another set of troponins. No CP now - plan for conserva tive Rx. REFUSES STRES TEST - will consider LHC per DR. William, likely outpt. 2. Atrial fibrillation, rate controlled - con't to follow. No tachy-prasad episodes noted. Better now. 3. Abnormal electrocardiogram, assess for true acute coronary syndrome. NO CP - refused stress test. 4. Hypertension, well controlled - HD to follow. Defer to renal team. 5. End-stage renal disease, on hemodialysis. 6. Nausea- better now - in good satus now. Improved. 7. Left lower lobe pneumonia - on anti-Bx, con't med rx. NO fevers now. 8. Peripheral arterial disease with nonhealing lower extremity ulcer - con't skin care. MARY JO AGUIRRE MD August 15, 2018 14:40
[2018-08-15] MEDS: HYDROCODONE/APAP (5/325) TAB PO PRN (15:36)
--- NOTE | 2018-08-15 21:45 | CONS ---
[facility] HCIS Consult Follow-up Patient Name: Nikki Petit Unit Number: [id number] Date of : 1960 Patient Status: Admitted Inpatient Attending Doctor: Kirstin Spann MD Edit: ALEXANDER SHEETS M.D. on 08/16/18 @ 03:23 [place]ort[place]: I discussed the management with OPTIMIZATION ANALYST Clarence and agree Assessment/Plan Assessment/Plan Hospital Course (Demo Recall) - S/p sepsis d/t HCAP - fever and tachycardia resolved - HCAP - slowly improving - Likely underlying fluid overload - ESRD on HD T-T-S - Hyperkalemia - Elevated troponin - H/o non-healing diabetic R foot ulceration with infection at site of recent debridement; cultures grew MSSA and Enterococcus (ESR 93) - S/p excisional sharp debridement of the right first toe involving skin and subcutaneous tissue on 06/11/2017 - Evidence of osteomyelitis at the remnant of the first distal phalanx per MRI R foot 06/24/2017 - DM with hypoglycemic episode - Hgb A1c 6.5% - Diabetic neuropathy - H/o diabetic foot infections/OM of b/l feet, s/p amputation of R two toes - H/o central stenosis with apparent recent re-vascularization - S/p placement of L IJ HD catheter 06/20/2017 - PVD - H/o LLE bypass - CHF and CAD - Anemia of chronic kidney disease - Morbid obesity - BMI 39.9 - H/o dysphagia, Group A pharyngitis screen was negative - H/o mildly dilated esophagus on CT (11/2016) and multiple distal erosive lesions in the distal esophagus per EGD (11/27/2016; path negative) - 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 Pt's sinuses are non-TTP. On a trial of renally dosed oseltamivir (06/30/2017-) Recommendations: - DC Vancomycin - Complete 5 day course of Zithromax today - Continue Cefepime (08/09/2018-) - Pending: blood cxs obtained from HD (NGTD), respiratory virus panel, and pertussis DFA Management d/w patient, PRO Villarreal, and with Dr. Sheets Consultation Date/Type/Reason Admit Date/Time August 09, 2018 at 17:42 Initial Consult Date 08/10/18 Type of Consult Infectious Disease Requesting Provider: KIRSTIN SPANN MD Date/Time of Note DATE: 08/15/18 TIME: 17:44 24 HR Interval Summary Free Text/Dictation Frequently asking for pain medication per d/w nursing. Pt c/o generalized pain rating 10/10. When asked what pain medications does pt take at home, she states, "Whatever I can get my hands on or borrow from my neighbor". States SOB and congested cough is improving; has yellowish or dark green phlegm. Exam/Review of Systems Exam Vitals Vital Signs Date Temp Pulse Resp B/P (MAP) Pulse Ox O2 O2 Flow FiO2 Time Delivery Rate 08/15/18 98.0 20:27 08/15/18 63 20:00 08/15/18 20 151/66 94 19:45 (94) 08/15/18 Room Air 07:33 08/13/18 2.0 15:03 Intake and Output 08/14/18 08/14/18 08/15/18 1515:00 23:00 07:00 IntakeIntake Total 1200 ml 600 ml OutputOutput Total 4400 ml BalanceBalance 1200 ml -3800 ml Exam Constitutional: alert, oriented, well developed, other (sitting at side of bed in NAD) Psych: no complaints, nl mood/affect Head: normocephalic, atraumatic Eyes: nl conjunctiva, nl lids ENMT: nl external ears & nose Neck: supple Respiratory: normal air movement, other (Coarse breath sounds; On O2 at 2L via NC) Cardiovascular: regular rate and rhythm, systolic murmur Gastrointestinal: soft, non-tender; No distended Musculoskeletal: nl extremities to inspection Extremities: normal pulses, other (R partial great toe and R 5th toe amputation noted) Neurological: nl mental status, nl speech Skin: nl turgor Results Result Diagram: 08/14/18 0503 08/14/18 0503 Results 24hrs Laboratory Tests Test 08/15/18 05:03 08/15/18 08:24 08/15/18 12:10 08/15/18 17:50 Random Vancomycin 16.5 Level Bedside Glucose 191 164 121 Test 08/15/18 20:17 08/15/18 21:27 Bedside Glucose 72 83 Medications Medication Current Medications Buspirone HCl (Buspar) 10 mg TID PO Last administered on 08/15/18 20:19; Admin Dose 10 MG; Start 08/10/18 at 09:00 Diltiazem HCl (Cardizem Cd) 120 mg DAILY PO Last administered on 08/15/18 08:28; Admin Dose 120 MG; Start 08/10/18 at 09:00 Furosemide (Lasix) 20 mg DAILY PO Last administered on 08/15/18 08:27; Admin Dose 20 MG; Start 08/10/18 at 09:00 Gabapentin (Neurontin) 300 mg TID PO Last administered on 08/15/18 20:17; Admin Dose 300 MG; Start 08/10/18 at 09:00 Metoprolol Tartrate (Lopressor) 25 mg BID PO Last administered on 08/15/18 20:18; Admin Dose 25 MG; Start 08/10/18 at 09:00 Pantoprazole (Protonix Tab) 40 mg AC BREAKFAST PO Last administered on 08/15/18 06:42; Admin Dose 40 MG; Start 08/10/18 at 07:00 Sevelamer Carbonate (Renvela) 1.6 gm WITH MEALS PO Last administered on 08/15/18 17:49; Admin Dose 1.6 GM; Start 08/10/18 at 08:00 Apixaban (Eliquis) 5 mg BID PO Last administered on 08/15/18 20:17; Admin Dose 5 MG; Start 08/10/18 at 09:00 Vancomycin HCl (Vanco Iv Per Pharmacy) VANCOMYCIN PER PHARMACY PER PROTOCOL XX ; Start 08/09/18 at 23:30 Cefepime HCl 50 ml @ 100 mls/hr Q24H IVPB Last administered on 08/15/18 08:28; Admin Dose 100 MLS/HR; Start 08/10/18 at 09:00 Acetaminophen (Tylenol Tab) 650 mg Q6H PRN PO MILD PAIN(1-3)OR ELEVATED TEMP Last administered on 08/15/18 20:27; Admin Dose 650 MG; Start 08/09/18 at 23:30 Morphine Sulfate (morphine) 2 mg Q4H PRN IV SEVERE PAIN LEVEL 7-10 Last administered on 08/11/18 05:01; Admin Dose 2 MG; Start 08/09/18 at 23:30 Guaifenesin/ Codeine Phosphate (Robitussin Ac Liquid Cup) 10 ml Q4H PRN PO COUGH Last administered on 08/15/18 15:36; Admin Dose 10 ML; Start 08/09/18 at 23:30 Miscellaneous Information 1 ea NOTE XX ; Start 08/10/18 at 05:30 Glucose (Glutose) 15 gm Q15M PRN PO DECREASED GLUCOSE; Start 08/10/18 at 05:30 Glucose (Glutose) 22.5 gm Q15M PRN PO DECREASED GLUCOSE; Start 08/10/18 at 05:30 Dextrose (D50w Syringe) 25 ml Q15M PRN IV DECREASED GLUCOSE; Start 08/10/18 at 05:30 Dextrose (D50w Syringe) 50 ml Q15M PRN IV DECREASED GLUCOSE Last administered on 08/13/18 21:34; Admin Dose 50 ML; Start 08/10/18 at 05:30 Glucagon (Glucagen) 1 mg Q15M PRN IM DECREASED GLUCOSE; Start 08/10/18 at 05:30 Glucose (Glutose) 15 gm Q15M PRN BUCCAL DECREASED GLUCOSE Last administered on 08/14/18 19:18; Admin Dose 15 GM; Start 08/10/18 at 05:30 Insulin Aspart (Novolog Insulin Pen) NOVOLOG *MILD* ALGORI... AC MEALS AND BEDTIME SC Last administered on 08/15/18 12:23; Admin Dose 1 UNIT; Start 08/10/18 at 08:00 Diagnostic Test (Pha) (Accu-Chek) 1 ea 02 XX Last administered on 08/14/18 02:12; Admin Dose 1 EA; Start 08/11/18 at 02:00 Insulin Aspart (Novolog Insulin Pen) 10 unit WITH MEALS SC Last administered on 08/15/18 17:59; Admin Dose 10 UNIT; Start 08/11/18 at 08:00 Azithromycin (Zithromax) 500 mg DAILY PO Last administered on 08/15/18 08:26; Admin Dose 500 MG; Start 08/12/18 at 09:00; Stop 08/16/18 at 08:59 Docusate Sodium (Colace) 100 mg DAILY PO Last administered on 08/15/18 08:26; Admin Dose 100 MG; Start 08/12/18 at 09:00 Tramadol HCl (Ultram) 50 mg Q12H PRN PO PAIN; Start 08/11/18 at 13:30 Diclofenac Sodium (Voltaren 1% Gel) 2 gm BID TP Last administered on 08/15/18 20:19; Admin Dose 2 GM; Start 08/11/18 at 21:00 Acetaminophen/ Hydrocodone Bitart ([place] (5/325)) 1 tab Q4H PRN PO MODERATE PAIN LEVEL 4-6 Last administered on 08/15/18 15:36; Admin Dose 1 TAB; Start 08/12/18 at 15:00 Isosorbide Dinitrate (Isordil) 10 mg TID PO Last administered on 08/15/18 20:18; Admin Dose 10 MG; Start 08/12/18 at 21:00 Lorazepam (Ativan) 1 mg Q6H PRN IV ANXIETY Last administered on 08/15/18 09:21; Admin Dose 1 MG; Start 08/12/18 at 22:30 Heparin Sodium (Porcine) (Heparin (1000 Units/ml)) 4,000 unit AFTER DIALYSIS CATHETER Last administered on 08/14/18 23:35; Admin Dose 4,700 UNIT; Start 08/13/18 at 16:30 Insulin Glargine (Lantus) 14 units DAILY@0800 SC Last administered on 08/15/18 08:32; Admin Dose 14 UNITS; Start 08/14/18 at 08:00 Senna (Senokot) 2 tab BID PRN PO CONSTIPATION Last administered on 08/14/18 13:04; Admin Dose 2 TAB; Start 08/14/18 at 12:00 Albuterol/ Ipratropium (Duoneb) 3 ml Q6H RESP THERAPY PRN HHN SHORTNESS OF BREATH; Start 5/12/19 at 11:00 Ondansetron HCl (Zofran Inj) 4 mg Q6H PRN IV NAUSEA AND/OR VOMITING; Start 08/15/18 at 11:00 Vancomycin HCl 250 ml @ 125 mls/hr ONCE IVPB Last administered on 08/15/18at 12:11; Admin Dose 125 MLS/HR; Start 08/15/18 at 13:00; Stop 08/15/18 at 23:59 Epoetin Bam-epbx (Retacrit (Esrd)) 4,000 unit TuThSa@1700 SC ; Start 08/17/18 at 17:00 CORONA HOLLIS NP August 15, 2018 21:45
[2018-08-16] VITALS (25 sets, daily range): BP systolic 102–153; BP diastolic 51–89; PULSE 52–75; RESP 18–20
[2018-08-16] MEDS: GUAIFENESIN/CODEINE 5ML CUP PO PRN (02:16)
[2018-08-16] MEDS: ACETAMINOPHEN 325 MG TAB PO PRN (02:21)
[2018-08-16] MEDS: ACCU-CHEK XX SCH (02:30)
[2018-08-16] MEDS: PANTOPRAZOLE (EC) 40 MG TAB PO SCH (06:55)
[2018-08-16] MEDS: INSULIN ASPART [NOVOLOG] 3 ML PEN SC SCH ×7 (08:13→21:16)
[2018-08-16] MEDS: INSULIN GLARGINE [LANTus] (100 UNITS/ML) SYG SC SCH (08:13)
[2018-08-16] MEDS: APIXABAN 5 MG TABLET PO SCH ×2 (08:20→20:53)
[2018-08-16] MEDS: FUROSEMIDE 20 MG TAB PO SCH (08:21)
[2018-08-16] MEDS: DOCUSATE SODIUM 100 MG CAP PO SCH (08:21)
[2018-08-16] MEDS: DILTIAZEM (CD) 120 MG CAP PO SCH (08:21)
[2018-08-16] MEDS: GABAPENTIN 300 MG CAP PO SCH ×3 (08:21→20:52)
[2018-08-16] MEDS: BUSPIRONE 10 MG TAB PO SCH ×3 (08:22→20:53)
[2018-08-16] MEDS: CEFEPIME 1GM/50 ML (PMX) 50 ML IVPB SCH (08:22)
[2018-08-16] MEDS: SEVELAMER CARBONATE 0.8 GM PKT PO SCH ×3 (08:22→17:00)
[2018-08-16] MEDS: DICLOFENAC SODIUM 1% GEL 100 GM TUBE TP SCH ×2 (08:23→22:08)
[2018-08-16] MEDS: ISOSORBIDE DINITRATE 10 MG TAB PO SCH ×3 (08:24→20:53)
[2018-08-16] MEDS: METOPROLOL 25 MG TAB PO SCH ×2 (08:35→20:52)
--- NOTE | 2018-08-16 08:35 | CONS ---
Consult Date/Type/Reason Admit Date/Time August 09, 2018 at 17:42 Initial Consult Date 08/10/18 Requesting Provider: KIRSTIN SPANN MD Date/Time of Note DATE: 08/16/18 TIME: 08:33 Subjective NO acute events - pt stable - still refuses stress test - med rx now - HD for volume removal now. ROS: No fever, no chills, no nausea, no vomiting, no diarrhea/constipation No recent weight changes No chest pain, no PND, no orthopnea - improved SOB No dizziness, blurred vision No thirst, no heat or cold intolerance Objective Vitals Vital Signs Date Temp Pulse Resp B/P (MAP) Pulse Ox O2 O2 Flow FiO2 Time Delivery Rate 08/16/18 62 08:13 08/16/18 98.0 19 135/89 98 Nasal 07:18 (104) Cannula 08/13/18 2.0 15:03 Intake and Output 08/15/18 08/15/18 08/16/18 1414:59 22:59 06:59 IntakeIntake Total 930 ml 500 ml BalanceBalance 930 ml 500 ml Exam General: WN/WD/NAD, AOx 3 HEENT: Unicetric/atraumatic/EOMI ( follows commands) NECK: JVD elevated, no thyromegaly Lymph: no lymphadenopathy HEART: regular with no S3, II/ systolic murmur at apex, PMI L LUNGS: Coarse sounds ABD: soft, NT, ND, +BS : Intact Neuro: non focal SKIN: chronic changes EXT: 1+ edema Results/Medications Result Diagram: 08/14/18 0503 08/14/18 0503 Results 24 hrs Laboratory Tests Test 08/15/18 12:10 08/15/18 17:50 08/15/18 20:17 08/15/18 21:27 Bedside Glucose 164 121 72 83 Test 08/16/18 02:33 08/16/18 05:16 08/16/18 07:56 Bedside Glucose 150 186 Phosphorus Level 7.8 H Home Meds Reported Medications Albuterol Sulfate* (Ventolin HFA*) 18 Gm Hfa.aer.ad, 2 PUFF INHALATION Q6H, #1 INHALER 08/15/18 Metoprolol Tartrate* (Lopressor*) 25 Mg Tab, 25 MG PO BID, #60 TAB 08/09/18 Pantoprazole* (Pantoprazole*) 40 Mg Tablet.dr, 40 MG PO AC BREAKFAST, TAB 08/09/18 Diltiazem Hcl* (Diltiazem XT) 120 Mg Capsule.sa, 120 MG PO DAILY, #30 CAP 08/09/18 Amlodipine Besylate* (Norvasc*) 5 Mg Tablet, 5 MG PO DAILY, TAB 08/09/18 Buspirone Hcl* (Buspirone Hcl*) 10 Mg Tab, 10 MG PO TID, TAB 08/09/18 Furosemide* (Furosemide*) 20 Mg Tablet, 20 MG PO DAILY, #60 TAB 08/09/18 Gabapentin* (Gabapentin*) 300 Mg Capsule, 300 MG PO TID, #90 CAP 08/09/18 Methocarbamol* (Methocarbamol*) 500 Mg Tablet, 500 MG PO DAILY, TAB 08/09/18 Sevelamer Hcl* (Renagel*) 800 Mg Tablet, 1600 MG PO WITH MEALS, TAB 08/09/18 Apixaban* (Eliquis*) 5 Mg Tablet, 5 MG PO BID, TAB 08/09/18 Discontinued Reported Medications Insulin Aspart* (Novolog Insulin Pen*) 100 Unit/Ml Soln, 0 SC .SLIDING SCALE AC, EA 06/17/17 Insulin Glargine* (Lantus*) 100 Unit/Ml Soln, 40 UNIT SC QHS, #1 VIAL 06/17/17 Discontinued Scripts Oseltamivir Phosphate* (Tamiflu*) 30 Mg Capsule, 30 MG PO DAILY for 2 Days, CAP Prov:VIOLET RUDOLPH 07/02/17 Menthol/Methyl Salicylate (Analgesic [place]) 28 Gm Oint...g., 1 APPLIC TOP TID PRN for PAIN, #1 Prov:VIOLET RUDOLPH 07/02/17 Lactulose* (Lactulose*) 20 Gm/30 Ml Solution, 30 GM PO BID PRN for CONSTIPATION for 30 Days Prov:VIOLET RUDOLPH 07/02/17 Hydrocodone Bit-Acetaminophen (Hydrocodone Bit-APAP) 5-325MG Tablet, 1 TAB PO Q6H PRN for MODERATE PAIN LEVEL 4-6, #20 TAB Prov:VIOLET RUDOLPH 07/02/17 Duloxetine Hcl* (Cymbalta*) 30 Mg Capsule.dr, 30 MG PO BID for 30 Days Prov:VIOLET RUDOLPH 07/02/17 Docusate Sodium (Dok) 100 Mg Capsule, 100 MG PO Q12H PRN for CONSTIPATION for 30 Days, CAP Prov:VIOLET RUDOLPH 07/02/17 Buspirone Hcl* (Buspar*) 5 Mg Tab, 5 MG PO BID for 30 Days, TAB Prov:VIOLET RUDOLPH 07/02/17 Albuterol Sulfate* (Ventolin HFA*) 18 Gm Hfa.aer.ad, 2 PUFF INHALATION Q6H RESP THERAPY, #1 Prov:VIOLET RUDOLPH 07/02/17 Alprazolam* (Alprazolam*) 0.25 Mg Tablet, 0.25 MG PO Q6H PRN for ANXIETY, #30 TAB Prov:ANTHONY DUPREE 02/04/17 Apixaban* (Eliquis*) 5 Mg Tablet, 2.5 MG PO BID for 30 Days, TAB Prov:ANTHONY DUPREE 02/04/17 Hydrocodone/Acetaminophen (Hydrocodon-Acetaminoph 7.5-325) 1 Each Tablet, 1 TAB PO Q6H PRN for pain, #30 TAB Prov:ANTHONY DUPREE 02/04/17 Albuterol Sulfate* (Ventolin HFA*) 18 Gm Hfa.aer.ad, 2 PUFF INHALATION Q4H for 30 Days, #1 INHALER Prov:ANTHONY DUPREE 02/04/17 Linagliptin (TRADJENTA) 5 Mg Tablet, 5 MG PO DAILY for 30 Days, TAB Prov:ANTHONY DUPREE 02/04/17 Pantoprazole* (Pantoprazole*) 40 Mg Tablet.dr, 40 MG PO AC BREAKFAST for 30 Days, TAB Prov:ANTHONY DUPREE 02/04/17 Sevelamer Carbonate* (Renvela*) 800 Mg Tablet, 0.8 GM PO WITH MEALS for 30 Days, TAB Prov:ANTHONY DUPREE 02/04/17 Multivit/Ca Carb/B Cmplx/Fa* (Addie-Mikayla*) 1 Tab Tab, 1 TAB PO DAILY for 30 Days, TAB Prov:ANTHONY DUPREE 02/04/17 Folic Acid* (Folic Acid*) 1 Mg Tablet, 1 MG PO DAILY for 30 Days, TAB [facility] 02/04/17 Clonidine Hcl* (Clonidine Hcl*) 0.2 Mg Tablet, 0.2 MG PO TID PRN for HTN for 30 Days, TAB Prov:[facility] 02/04/17 Clopidogrel Bisulfate* (Clopidogrel Bisulfate*) 75 Mg Tablet, 75 MG PO DAILY, #30 TAB Prov:[facility] 02/04/17 Carvedilol* (Carvedilol*) 6.25 Mg Tablet, 6.25 MG PO DAILY, #60 TAB [facility] 02/04/17 Gabapentin* (Gabapentin*) 300 Mg Capsule, 300 MG PO BID, #60 CAP [facility] 02/04/17 Atorvastatin* (Atorvastatin*) 40 Mg Tablet, 40 MG PO QHS, #30 TAB Prov:[facility] 02/04/17 Amlodipine Besylate* (Amlodipine Besylate*) 10 Mg Tablet, 10 MG PO DAILY, #30 TAB [facility] 02/04/17 Medications Current Medications Buspirone HCl (Buspar) 10 mg TID PO Last administered on 08/16/18 08:22; Admin Dose 10 MG; Start 08/10/18 at 09:00 Diltiazem HCl (Cardizem Cd) 120 mg DAILY PO Last administered on 08/16/18 08:21; Admin Dose 120 MG; Start 08/10/18 at 09:00 Furosemide (Lasix) 20 mg DAILY PO Last administered on 08/16/18 08:21; Admin Dose 20 MG; Start 08/10/18 at 09:00 Gabapentin (Neurontin) 300 mg TID PO Last administered on 08/16/18 08:21; Admin Dose 300 MG; Start 08/10/18 at 09:00 Metoprolol Tartrate (Lopressor) 25 mg BID PO Last administered on 08/15/18 20:18; Admin Dose 25 MG; Start 08/10/18 at 09:00 Pantoprazole (Protonix Tab) 40 mg AC BREAKFAST PO Last administered on 08/16/18 06:55; Admin Dose 40 MG; Start 08/10/18 at 07:00 Sevelamer Carbonate (Renvela) 1.6 gm WITH MEALS PO Last administered on 08/16/18 08:22; Admin Dose 1.6 GM; Start 08/10/18 at 08:00 Apixaban (Eliquis) 5 mg BID PO Last administered on 08/16/18 08:20; Admin Dose 5 MG; Start 08/10/18 at 09:00 Cefepime HCl 50 ml @ 100 mls/hr Q24H IVPB Last administered on 08/16/18 08:22; Admin Dose 100 MLS/HR; Start 08/10/18 at 09:00 Acetaminophen (Tylenol Tab) 650 mg Q6H PRN PO MILD PAIN(1-3)OR ELEVATED TEMP Last administered on 08/16/18 02:21; Admin Dose 650 MG; Start 08/09/18 at 23:30 Morphine Sulfate (morphine) 2 mg Q4H PRN IV SEVERE PAIN LEVEL 7-10 Last administered on 08/11/18 05:01; Admin Dose 2 MG; Start 08/09/18 at 23:30 Guaifenesin/ Codeine Phosphate (Robitussin Ac Liquid Cup) 10 ml Q4H PRN PO COUGH Last administered on 08/16/18 02:16; Admin Dose 10 ML; Start 08/09/18 at 23:30 Miscellaneous Information 1 ea NOTE XX ; Start 08/10/18 at 05:30 Glucose (Glutose) 15 gm Q15M PRN PO DECREASED GLUCOSE; Start 08/10/18 at 05:30 Glucose (Glutose) 22.5 gm Q15M PRN PO DECREASED GLUCOSE; Start 08/10/18 at 05:30 Dextrose (D50w Syringe) 25 ml Q15M PRN IV DECREASED GLUCOSE; Start 08/10/18 at 05:30 Dextrose (D50w Syringe) 50 ml Q15M PRN IV DECREASED GLUCOSE Last administered on 08/13/18 21:34; Admin Dose 50 ML; Start 08/10/18 at 05:30 Glucagon (Glucagen) 1 mg Q15M PRN IM DECREASED GLUCOSE; Start 08/10/18 at 05:30 Glucose (Glutose) 15 gm Q15M PRN BUCCAL DECREASED GLUCOSE Last administered on 08/14/18 19:18; Admin Dose 15 GM; Start 08/10/18 at 05:30 Insulin Aspart (Novolog Insulin Pen) NOVOLOG *MILD* ALGORI... AC MEALS AND BEDTIME SC Last administered on 08/16/18 08:14; Admin Dose 2 UNIT; Start 08/10/18 at 08:00 Diagnostic Test (Pha) (Accu-Chek) 1 ea 02 XX Last administered on 08/16/18 02:30; Admin Dose 1 EA; Start 08/11/18 at 02:00 Insulin Aspart (Novolog Insulin Pen) 10 unit WITH MEALS SC Last administered on 08/16/18 08:13; Admin Dose 10 UNIT; Start 08/11/18 at 08:00 Azithromycin (Zithromax) 500 mg DAILY PO Last administered on 08/15/18 08:26; Admin Dose 500 MG; Start 08/12/18 at 09:00; Stop 08/16/18 at 08:59 Docusate Sodium (Colace) 100 mg DAILY PO Last administered on 08/16/18 08:21; Admin Dose 100 MG; Start 08/12/18 at 09:00 Tramadol HCl (Ultram) 50 mg Q12H PRN PO PAIN; Start 08/11/18 at 13:30 Diclofenac Sodium (Voltaren 1% Gel) 2 gm BID TP Last administered on 08/16/18 08:23; Admin Dose 2 GM; Start 08/11/18 at 21:00 Acetaminophen/ Hydrocodone Bitart ([place] (5/325)) 1 tab Q4H PRN PO MODERATE PAIN LEVEL 4-6 Last administered on 08/15/18 15:36; Admin Dose 1 TAB; Start 08/12/18 at 15:00 Isosorbide Dinitrate (Isordil) 10 mg TID PO Last administered on 08/15/18 20:18; Admin Dose 10 MG; Start 08/12/18 at 21:00 Lorazepam (Ativan) 1 mg Q6H PRN IV ANXIETY Last administered on 08/15/18 09:21; Admin Dose 1 MG; Start 08/12/18 at 22:30 Heparin Sodium (Porcine) (Heparin (1000 Units/ml)) 4,000 unit AFTER DIALYSIS CATHETER Last administered on 08/14/18 23:35; Admin Dose 4,700 UNIT; Start 08/13/18 at 16:30 Insulin Glargine (Lantus) 14 units DAILY@0800 SC Last administered on 08/16/18at 08:13; Admin Dose 14 UNITS; Start 08/14/18 at 08:00 Senna (Senokot) 2 tab BID PRN PO CONSTIPATION Last administered on 08/14/18at 13:04; Admin Dose 2 TAB; Start 08/14/18 at 12:00 Albuterol/ Ipratropium (Duoneb) 3 ml Q6H RESP THERAPY PRN HHN SHORTNESS OF BREATH; Start 08/15/18 at 11:00 Ondansetron HCl (Zofran Inj) 4 mg Q6H PRN IV NAUSEA AND/OR VOMITING; Start 08/15/18 at 11:00 Epoetin Bam-epbx (Retacrit (Esrd)) 4,000 unit TuThSa@1700 SC ; Start 08/17/18 at 17:00 Assessment/Plan Hospital Course (Demo Recall) 1. Positive troponin, assess significance in the setting of renal failure, likely type 2 demand infarct in the setting of pneumoni - declined Stress test - will re-evaluate with another set of troponins. No CP now - plan for conservative Rx. REFUSES STRES TEST - will consider LHC per DR. William, likely outpt. NO CP now - med rx now. 2. Atrial fibrillation, rate controlled - con't to follow. No tachy-prasad episodes noted. Better now. Controlled. 3. Abnormal electrocardiogram, assess for true acute coronary syndrome. NO CP - refused stress test. 4. Hypertension, well controlled - HD to follow. Defer to renal team. Better. 5. End-stage renal disease, on hemodialysis. 6. Nausea- better now - in good satus now. NO new episodes now - tolerated food. 7. Left lower lobe pneumonia - on anti-Bx, con't med rx. NO fevers now. 8. Peripheral arterial disease with nonhealing lower extremity ulcer - con't skin care. MARY JO AGUIRRE MD August 16, 2018 08:35
[2018-08-16] MEDS: HYDROCODONE/APAP (5/325) TAB PO PRN ×2 (09:47→20:52)
--- NOTE | 2018-08-16 10:19 | CONS ---
Assessment/Plan Assessment/Plan Assessment/Plan (Daily) late entry note, thsi note is for 08/13/18, pt was seen on 08/13/18 is is a 58-year-old female who presented with: 1. Shortness of breath, cough, with fevers, likely secondary to pneumonia; however, might have some underlying fluid overload. 2. Hyperkalemia. Not sure about patient's compliance; however, the patient had been going to his dialysis center. 3. Elevated troponin. Patient has history of end-stage renal disease.? ACS 4. History of peripheral vascular disease. 5. End-stage renal disease, Thursday, , Thursday. 6. Anemia, likely anemia of chronic disease. 7. Peripheral vascular disease status post bypass of the left lower extremity. 8. Right foot ulcer with infection at the site of recent debridement. Cultures grew MSSA and Enterococcus. 9. History of central stenosis with apparent revascularization. 10. Status post placement of left IJ Permcath 06/2017. 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 Consultation Date/Type/Reason Admit Date/Time August 09, 2018 at 17:42 Initial Consult Date 08/10/18 Requesting Provider: KIRSTIN SPANN MD Date/Time of Note DATE: 08/16/18 TIME: 10:18 24 HR Interval Summary Free Text/Dictation this note is for 08/13/18 late note entry pt cough is better Exam/Review of Systems Exam Vitals Vital Signs Date Temp Pulse Resp B/P (MAP) Pulse Ox O2 O2 Flow FiO2 Time Delivery Rate 08/16/18 62 08:13 08/16/18 98.0 19 135/89 98 Nasal 07:18 (104) Cannula 08/13/18 2.0 15:03 Intake and Output 08/15/18 08/15/18 08/16/18 1515:00 23:00 07:00 IntakeIntake Total 930 ml 500 ml BalanceBalance 930 ml 500 ml Exam GENERAL: The patient is awake, alert, oriented, does not appear to be in any acute distress. HEENT: Pupils equal, round, reactive to light. NECK: Supple, no JVD. HEART: Regular rate and rhythm. LUNGS: Diffuse bilateral rhonchi and some crackles appreciated, especially on the left base. ABDOMEN: Soft, nontender, nondistended, positive normoactive bowel sounds. EXTREMITIES: The patient has a left Perm-A-Cath in place. The patient has a left upper extremity fistula with a faint bruit. However, it is not deep enough and long enough Patient has a right leg diabetic ulcer, status post amputation of the right first toe. Results Result Diagram: 08/14/18 0503 08/14/18 0503 Results 24hrs Laboratory Tests Test 08/15/18 12:10 08/15/18 17:50 08/15/18 20:17 08/15/18 21:27 Bedside Glucose 164 121 72 83 Test 08/16/18 02:33 08/16/18 05:16 08/16/18 07:56 Bedside Glucose 150 186 Phosphorus Level 7.8 H Medications Medication Current Medications Buspirone HCl (Buspar) 10 mg TID PO Last administered on 08/16/18 08:22; Admin Dose 10 MG; Start 08/10/18 at 09:00 Diltiazem HCl (Cardizem Cd) 120 mg DAILY PO Last administered on 08/16/18 08:21; Admin Dose 120 MG; Start 08/10/18 at 09:00 Furosemide (Lasix) 20 mg DAILY PO Last administered on 08/16/18 08:21; Admin Dose 20 MG; Start 08/10/18 at 09:00 Gabapentin (Neurontin) 300 mg TID PO Last administered on 08/16/18 08:21; Admin Dose 300 MG; Start 08/10/18 at 09:00 Metoprolol Tartrate (Lopressor) 25 mg BID PO Last administered on 08/15/18 20:18; Admin Dose 25 MG; Start 08/10/18 at 09:00 Pantoprazole (Protonix Tab) 40 mg AC BREAKFAST PO Last administered on 08/16/18 06:55; Admin Dose 40 MG; Start 08/10/18 at 07:00 Sevelamer Carbonate (Renvela) 1.6 gm WITH MEALS PO Last administered on 08/16/18 08:22; Admin Dose 1.6 GM; Start 08/10/18 at 08:00 Apixaban (Eliquis) 5 mg BID PO Last administered on 08/16/18 08:20; Admin Dose 5 MG; Start 08/10/18 at 09:00 Cefepime HCl 50 ml @ 100 mls/hr Q24H IVPB Last administered on 08/16/18 08:22; Admin Dose 100 MLS/HR; Start 08/10/18 at 09:00 Acetaminophen (Tylenol Tab) 650 mg Q6H PRN PO MILD PAIN(1-3)OR ELEVATED TEMP Last administered on 08/16/18 02:21; Admin Dose 650 MG; Start 08/09/18 at 23:30 Morphine Sulfate (morphine) 2 mg Q4H PRN IV SEVERE PAIN LEVEL 7-10 Last administered on 08/11/18 05:01; Admin Dose 2 MG; Start 08/09/18 at 23:30 Guaifenesin/ Codeine Phosphate (Robitussin Ac Liquid Cup) 10 ml Q4H PRN PO COUGH Last administered on 08/16/18 02:16; Admin Dose 10 ML; Start 08/09/18 at 23:30 Miscellaneous Information 1 ea NOTE XX ; Start 08/10/18 at 05:30 Glucose (Glutose) 15 gm Q15M PRN PO DECREASED GLUCOSE; Start 08/10/18 at 05:30 Glucose (Glutose) 22.5 gm Q15M PRN PO DECREASED GLUCOSE; Start 08/10/18 at 05:30 Dextrose (D50w Syringe) 25 ml Q15M PRN IV DECREASED GLUCOSE; Start 08/10/18 at 05:30 Dextrose (D50w Syringe) 50 ml Q15M PRN IV DECREASED GLUCOSE Last administered on 08/13/18 21:34; Admin Dose 50 ML; Start 08/10/18 at 05:30 Glucagon (Glucagen) 1 mg Q15M PRN IM DECREASED GLUCOSE; Start 08/10/18 at 05:30 Glucose (Glutose) 15 gm Q15M PRN BUCCAL DECREASED GLUCOSE Last administered on 08/14/18 19:18; Admin Dose 15 GM; Start 08/10/18 at 05:30 Insulin Aspart (Novolog Insulin Pen) NOVOLOG *MILD* ALGORI... AC MEALS AND BEDTIME SC Last administered on 08/16/18 08:14; Admin Dose 2 UNIT; Start 08/10/18 at 08:00 Diagnostic Test (Pha) (Accu-Chek) 1 ea 02 XX Last administered on 08/16/18 02:30; Admin Dose 1 EA; Start 08/11/18 at 02:00 Insulin Aspart (Novolog Insulin Pen) 10 unit WITH MEALS SC Last administered on 08/16/18 08:13; Admin Dose 10 UNIT; Start 08/11/18 at 08:00 Docusate Sodium (Colace) 100 mg DAILY PO Last administered on 08/16/18 08:21; Admin Dose 100 MG; Start 08/12/18 at 09:00 Tramadol HCl (Ultram) 50 mg Q12H PRN PO PAIN; Start 08/11/18 at 13:30 Diclofenac Sodium (Voltaren 1% Gel) 2 gm BID TP Last administered on 08/16/18 08:23; Admin Dose 2 GM; Start 08/11/18 at 21:00 Acetaminophen/ Hydrocodone Bitart ([place] (5/325)) 1 tab Q4H PRN PO MODERATE PAIN LEVEL 4-6 Last administered on 08/16/18 09:47; Admin Dose 1 TAB; Start 08/12/18 at 15:00 Isosorbide Dinitrate (Isordil) 10 mg TID PO Last administered on 08/15/18 20:18; Admin Dose 10 MG; Start 08/12/18 at 21:00 Lorazepam (Ativan) 1 mg Q6H PRN IV ANXIETY Last administered on 08/15/18 09:21; Admin Dose 1 MG; Start 08/12/18 at 22:30 Heparin Sodium (Porcine) (Heparin (1000 Units/ml)) 4,000 unit AFTER DIALYSIS CATHETER Last administered on 08/14/18 23:35; Admin Dose 4,700 UNIT; Start 08/13/18 at 16:30 Insulin Glargine (Lantus) 14 units DAILY@0800 SC Last administered on 08/16/18 08:13; Admin Dose 14 UNITS; Start 08/14/18 at 08:00 Senna (Senokot) 2 tab BID PRN PO CONSTIPATION Last administered on 08/14/18 13:04; Admin Dose 2 TAB; Start 08/14/18 at 12:00 Albuterol/ Ipratropium (Duoneb) 3 ml Q6H RESP THERAPY PRN HHN SHORTNESS OF BREATH; Start 08/15/18 at 11:00 Ondansetron HCl (Zofran Inj) 4 mg Q6H PRN IV NAUSEA AND/OR VOMITING; Start 08/15/18 at 11:00 Epoetin Bam-epbx (Retacrit (Esrd)) 4,000 unit TuThSa@1700 SC ; Start 08/17/18 at 17:00 DARELL JAMES MD August 16, 2018 10:19
--- NOTE | 2018-08-16 11:43 | CONS ---
Assessment/Plan Assessment/Plan Assessment/Plan (Daily) 58-year-old female who presented with: 1. Shortness of breath, cough, with fevers, likely secondary to pneumonia; however, might have some underlying fluid overload. 2. Hyperkalemia. Not sure about patient's compliance; however, the patient had been going to his dialysis center. 3. Elevated troponin. Patient has history of end-stage renal disease.? ACS 4. History of peripheral vascular disease. 5. End-stage renal disease, Thursday, , Thursday. 6. Anemia, likely anemia of chronic disease. 7. Peripheral vascular disease status post bypass of the left lower extremity. 8. Right foot ulcer with infection at the site of recent debridement. Cultures grew MSSA and Enterococcus. 9. History of central stenosis with apparent revascularization. 10. Status post placement of left IJ Permcath 06/2017. 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 Consultation Date/Type/Reason Admit Date/Time August 09, 2018 at 17:42 Initial Consult Date 08/10/18 Requesting Provider: KIRSTIN SPANN MD Date/Time of Note DATE: 08/16/18 TIME: 11:41 24 HR Interval Summary Free Text/Dictation Patient says that she feels weak tired Not know why she needs cardiac evaluation Exam/Review of Systems Exam Vitals Vital Signs Date Temp Pulse Resp B/P (MAP) Pulse Ox O2 O2 Flow FiO2 Time Delivery Rate 08/16/18 97.6 66 153/66 97 Nasal 11:18 (95) Cannula 08/16/18 18 2.0 10:25 Intake and Output 08/15/18 08/15/18 08/16/18 1515:00 23:00 07:00 IntakeIntake Total 930 ml 500 ml BalanceBalance 930 ml 500 ml Exam GENERAL: The patient is awake, alert, oriented, does not appear to be in any acute distress. HEENT: Pupils equal, round, reactive to light. NECK: Supple, no JVD. HEART: Regular rate and rhythm. LUNGS: Diffuse bilateral rhonchi and some crackles appreciated, especially on the left base. ABDOMEN: Soft, nontender, nondistended, positive normoactive bowel sounds. EXTREMITIES: The patient has a left Perm-A-Cath in place. The patient has a left upper extremity fistula with a bruit/thrill. Patient has a right leg diabetic ulcer, status post amputation of the right first toe. Results Result Diagram: 08/14/18 0503 08/14/18 0503 Results 24hrs Laboratory Tests Test 08/15/18 12:10 08/15/18 17:50 08/15/18 20:17 08/15/18 21:27 Bedside Glucose 164 121 72 83 Test 08/16/18 02:33 08/16/18 05:16 08/16/18 07:56 Bedside Glucose 150 186 Phosphorus Level 7.8 H Medications Medication Current Medications Buspirone HCl (Buspar) 10 mg TID PO Last administered on 08/16/18 08:22; Admin Dose 10 MG; Start 08/10/18 at 09:00 Diltiazem HCl (Cardizem Cd) 120 mg DAILY PO Last administered on 08/16/18 08:21; Admin Dose 120 MG; Start 08/10/18 at 09:00 Furosemide (Lasix) 20 mg DAILY PO Last administered on 08/16/18 08:21; Admin Dose 20 MG; Start 08/10/18 at 09:00 Gabapentin (Neurontin) 300 mg TID PO Last administered on 08/16/18 08:21; Admin Dose 300 MG; Start 08/10/18 at 09:00 Metoprolol Tartrate (Lopressor) 25 mg BID PO Last administered on 08/15/18 20:18; Admin Dose 25 MG; Start 08/10/18 at 09:00 Pantoprazole (Protonix Tab) 40 mg AC BREAKFAST PO Last administered on 08/16/18 06:55; Admin Dose 40 MG; Start 08/10/18 at 07:00 Sevelamer Carbonate (Renvela) 1.6 gm WITH MEALS PO Last administered on 08/16/18 08:22; Admin Dose 1.6 GM; Start 08/10/18 at 08:00 Apixaban (Eliquis) 5 mg BID PO Last administered on 08/16/18 08:20; Admin Dose 5 MG; Start 08/10/18 at 09:00 Cefepime HCl 50 ml @ 100 mls/hr Q24H IVPB Last administered on 08/16/18 08:22; Admin Dose 100 MLS/HR; Start 08/10/18 at 09:00 Acetaminophen (Tylenol Tab) 650 mg Q6H PRN PO MILD PAIN(1-3)OR ELEVATED TEMP Last administered on 08/16/18 02:21; Admin Dose 650 MG; Start 08/09/18 at 23:30 Morphine Sulfate (morphine) 2 mg Q4H PRN IV SEVERE PAIN LEVEL 7-10 Last administered on 08/11/18 05:01; Admin Dose 2 MG; Start 08/09/18 at 23:30 Guaifenesin/ Codeine Phosphate (Robitussin Ac Liquid Cup) 10 ml Q4H PRN PO COUGH Last administered on 08/16/18 02:16; Admin Dose 10 ML; Start 08/09/18 at 23:30 Miscellaneous Information 1 ea NOTE XX ; Start 08/10/18 at 05:30 Glucose (Glutose) 15 gm Q15M PRN PO DECREASED GLUCOSE; Start 08/10/18 at 05:30 Glucose (Glutose) 22.5 gm Q15M PRN PO DECREASED GLUCOSE; Start 08/10/18 at 05:30 Dextrose (D50w Syringe) 25 ml Q15M PRN IV DECREASED GLUCOSE; Start 08/10/18 at 05:30 Dextrose (D50w Syringe) 50 ml Q15M PRN IV DECREASED GLUCOSE Last administered on 08/13/18 21:34; Admin Dose 50 ML; Start 08/10/18 at 05:30 Glucagon (Glucagen) 1 mg Q15M PRN IM DECREASED GLUCOSE; Start 08/10/18 at 05:30 Glucose (Glutose) 15 gm Q15M PRN BUCCAL DECREASED GLUCOSE Last administered on 08/14/18 19:18; Admin Dose 15 GM; Start 08/10/18 at 05:30 Insulin Aspart (Novolog Insulin Pen) NOVOLOG *MILD* ALGORI... AC MEALS AND BEDTIME SC Last administered on 08/16/18 08:14; Admin Dose 2 UNIT; Start 08/10/18 at 08:00 Diagnostic Test (Pha) (Accu-Chek) 1 ea 02 XX Last administered on 08/16/18 02:30; Admin Dose 1 EA; Start 08/11/18 at 02:00 Insulin Aspart (Novolog Insulin Pen) 10 unit WITH MEALS SC Last administered on 08/16/18 08:13; Admin Dose 10 UNIT; Start 08/11/18 at 08:00 Docusate Sodium (Colace) 100 mg DAILY PO Last administered on 08/16/18 08:21; Admin Dose 100 MG; Start 08/12/18 at 09:00 Tramadol HCl (Ultram) 50 mg Q12H PRN PO PAIN; Start 08/11/18 at 13:30 Diclofenac Sodium (Voltaren 1% Gel) 2 gm BID TP Last administered on 08/16/18 08:23; Admin Dose 2 GM; Start 08/11/18 at 21:00 Acetaminophen/ Hydrocodone Bitart ([place] (5/325)) 1 tab Q4H PRN PO MODERATE PAIN LEVEL 4-6 Last administered on 08/16/18 09:47; Admin Dose 1 TAB; Start 08/12/18 at 15:00 Isosorbide Dinitrate (Isordil) 10 mg TID PO Last administered on 08/15/18 20:18; Admin Dose 10 MG; Start 08/12/18 at 21:00 Lorazepam (Ativan) 1 mg Q6H PRN IV ANXIETY Last administered on 08/15/18 09:21; Admin Dose 1 MG; Start 08/12/18 at 22:30 Heparin Sodium (Porcine) (Heparin (1000 Units/ml)) 4,000 unit AFTER DIALYSIS CATHETER Last administered on 08/14/18 23:35; Admin Dose 4,700 UNIT; Start 08/13/18 at 16:30 Insulin Glargine (Lantus) 14 units DAILY@0800 SC Last administered on 08/16/18 08:13; Admin Dose 14 UNITS; Start 08/14/18 at 08:00 Senna (Senokot) 2 tab BID PRN PO CONSTIPATION Last administered on 08/14/18 13:04; Admin Dose 2 TAB; Start 08/14/18 at 12:00 Albuterol/ Ipratropium (Duoneb) 3 ml Q6H RESP THERAPY PRN HHN SHORTNESS OF BREATH; Start 08/15/18 at 11:00 Ondansetron HCl (Zofran Inj) 4 mg Q6H PRN IV NAUSEA AND/OR VOMITING; Start 08/15/18 at 11:00 Epoetin Bam-epbx (Retacrit (Esrd)) 4,000 unit TuThSa@1700 SC ; Start 08/17/18 at 17:00 Multivit/Ca Carb/ B Cmplx/FA/Prenat (Addie-Mikayla) 1 tab DAILY PO ; Start 08/16/18 at 12:00; Status UNDARELL MAYA MD August 16, 2018 11:43
--- NOTE | 2018-08-16 11:56 | CONS ---
Assessment/Plan Assessment/Plan Hospital Course (Demo Recall) Hospital Course (Demo Recall) - S/p sepsis d/t HCAP - fever and tachycardia resolved - HCAP - slowly improving - Likely underlying fluid overload - ESRD on HD T-T-S - Hyperkalemia - Elevated troponin - H/o non-healing diabetic R foot ulceration with infection at site of recent debridement; cultures grew MSSA and Enterococcus (ESR 93) - S/p excisional sharp debridement of the right first toe involving skin and subcutaneous tissue on 06/11/2017 - Evidence of osteomyelitis at the remnant of the first distal phalanx per MRI R foot 06/24/2017 - DM with hypoglycemic episode - Hgb A1c 6.5% - Diabetic neuropathy - H/o diabetic foot infections/OM of b/l feet, s/p amputation of R two toes - H/o central stenosis with apparent recent re-vascularization - S/p placement of L IJ HD catheter 06/20/2017 - PVD - H/o LLE bypass - CHF and CAD - Anemia of chronic kidney disease - Morbid obesity - BMI 39.9 - H/o dysphagia, Group A pharyngitis screen was negative - H/o mildly dilated esophagus on CT (11/2016) and multiple distal erosive lesions in the distal esophagus per EGD (11/27/2016; path negative) - 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 Pt's sinuses are non-TTP. On a trial of renally dosed oseltamivir (06/30/2017-) Recommendations: - repeat procalcitonin in am - Continue Cefepime (08/09/2018-) through today; potentially stop tmrw depending on procalc - Pending: blood cxs obtained from HD (NGTD), respiratory virus panel, and pertussis DFA --still pending Consultation Date/Type/Reason Admit Date/Time August 09, 2018 at 17:42 Initial Consult Date Type of Consult id Requesting Provider: KIRSTIN SPANN MD Date/Time of Note DATE: 08/16/18 TIME: 11:54 24 HR Interval Summary Free Text/Dictation she says today her cough is better. overall slowly better. getting HD Exam/Review of Systems Exam Vitals Vital Signs Date Temp Pulse Resp B/P (MAP) Pulse Ox O2 O2 Flow FiO2 Time Delivery Rate 08/16/18 59 11:40 08/16/18 97.6 153/66 97 Nasal 11:18 (95) Cannula 08/16/18 18 2.0 10:25 Intake and Output 08/15/18 08/15/18 08/16/18 1414:59 22:59 06:59 IntakeIntake Total 930 ml 500 ml BalanceBalance 930 ml 500 ml Constitutional: alert, oriented Psych: no complaints Head: normocephalic, atraumatic Eyes: EOMI Neck: supple Respiratory: crackles/rales, diminished breath sounds Gastrointestinal: soft Neurological: SHINGLES ROOFER II-XII intact Results Result Diagram: 08/14/18 0503 08/14/18 0503 Results 24hrs Laboratory Tests Test 08/15/18 12:10 08/15/18 17:50 08/15/18 20:17 08/15/18 21:27 Bedside Glucose 164 121 72 83 Test 08/16/18 02:33 08/16/18 05:16 08/16/18 07:56 Bedside Glucose 150 186 Phosphorus Level 7.8 H Medications Medication Current Medications Buspirone HCl (Buspar) 10 mg TID PO Last administered on 08/16/18 08:22; Admin Dose 10 MG; Start 08/10/18 at 09:00 Diltiazem HCl (Cardizem Cd) 120 mg DAILY PO Last administered on 08/16/18 08:21; Admin Dose 120 MG; Start 08/10/18 at 09:00 Furosemide (Lasix) 20 mg DAILY PO Last administered on 08/16/18 08:21; Admin Dose 20 MG; Start 08/10/18 at 09:00 Gabapentin (Neurontin) 300 mg TID PO Last administered on 08/16/18 08:21; Admin Dose 300 MG; Start 08/10/18 at 09:00 Metoprolol Tartrate (Lopressor) 25 mg BID PO Last administered on 08/15/18 20:18; Admin Dose 25 MG; Start 08/10/18 at 09:00 Pantoprazole (Protonix Tab) 40 mg AC BREAKFAST PO Last administered on 08/16/18at 06:55; Admin Dose 40 MG; Start 08/10/18 at 07:00 Sevelamer Carbonate (Renvela) 1.6 gm WITH MEALS PO Last administered on 08/16/18 08:22; Admin Dose 1.6 GM; Start 08/10/18 at 08:00 Apixaban (Eliquis) 5 mg BID PO Last administered on 08/16/18 08:20; Admin Dose 5 MG; Start 08/10/18 at 09:00 Cefepime HCl 50 ml @ 100 mls/hr Q24H IVPB Last administered on 08/16/18 08:22; Admin Dose 100 MLS/HR; Start 08/10/18 at 09:00 Acetaminophen (Tylenol Tab) 650 mg Q6H PRN PO MILD PAIN(1-3)OR ELEVATED TEMP Last administered on 08/16/18 02:21; Admin Dose 650 MG; Start 08/09/18 at 23:30 Morphine Sulfate (morphine) 2 mg Q4H PRN IV SEVERE PAIN LEVEL 7-10 Last administered on 08/11/18 05:01; Admin Dose 2 MG; Start 08/09/18 at 23:30 Guaifenesin/ Codeine Phosphate (Robitussin Ac Liquid Cup) 10 ml Q4H PRN PO COUGH Last administered on 08/16/18 02:16; Admin Dose 10 ML; Start 08/09/18 at 23:30 Miscellaneous Information 1 ea NOTE XX ; Start 08/10/18 at 05:30 Glucose (Glutose) 15 gm Q15M PRN PO DECREASED GLUCOSE; Start 08/10/18 at 05:30 Glucose (Glutose) 22.5 gm Q15M PRN PO DECREASED GLUCOSE; Start 08/10/18 at 05:30 Dextrose (D50w Syringe) 25 ml Q15M PRN IV DECREASED GLUCOSE; Start 08/10/18 at 05:30 Dextrose (D50w Syringe) 50 ml Q15M PRN IV DECREASED GLUCOSE Last administered on 08/13/18 21:34; Admin Dose 50 ML; Start 08/10/18 at 05:30 Glucagon (Glucagen) 1 mg Q15M PRN IM DECREASED GLUCOSE; Start 08/10/18 at 05:30 Glucose (Glutose) 15 gm Q15M PRN BUCCAL DECREASED GLUCOSE Last administered on 08/14/18 19:18; Admin Dose 15 GM; Start 08/10/18 at 05:30 Insulin Aspart (Novolog Insulin Pen) NOVOLOG *MILD* ALGORI... AC MEALS AND BEDTIME SC Last administered on 08/16/18 08:14; Admin Dose 2 UNIT; Start 08/10/18 at 08:00 Diagnostic Test (Pha) (Accu-Chek) 1 ea 02 XX Last administered on 08/16/18 02:30; Admin Dose 1 EA; Start 08/11/18 at 02:00 Insulin Aspart (Novolog Insulin Pen) 10 unit WITH MEALS SC Last administered on 08/16/18 08:13; Admin Dose 10 UNIT; Start 08/11/18 at 08:00 Docusate Sodium (Colace) 100 mg DAILY PO Last administered on 08/16/18 08:21; Admin Dose 100 MG; Start 08/12/18 at 09:00 Tramadol HCl (Ultram) 50 mg Q12H PRN PO PAIN; Start 08/11/18 at 13:30 Diclofenac Sodium (Voltaren 1% Gel) 2 gm BID TP Last administered on 08/16/18 08:23; Admin Dose 2 GM; Start 08/11/18 at 21:00 Acetaminophen/ Hydrocodone Bitart ([place] (5/325)) 1 tab Q4H PRN PO MODERATE PAIN LEVEL 4-6 Last administered on 08/16/18 09:47; Admin Dose 1 TAB; Start 08/12/18 at 15:00 Isosorbide Dinitrate (Isordil) 10 mg TID PO Last administered on 08/15/18 20:18; Admin Dose 10 MG; Start 08/12/18 at 21:00 Lorazepam (Ativan) 1 mg Q6H PRN IV ANXIETY Last administered on 08/15/18 09:21; Admin Dose 1 MG; Start 08/12/18 at 22:30 Heparin Sodium (Porcine) (Heparin (1000 Units/ml)) 4,000 unit AFTER DIALYSIS CATHETER Last administered on 08/14/18 23:35; Admin Dose 4,700 UNIT; Start 08/13/18 at 16:30 Insulin Glargine (Lantus) 14 units DAILY@0800 SC Last administered on 08/16/18 08:13; Admin Dose 14 UNITS; Start 08/14/18 at 08:00 Senna (Senokot) 2 tab BID PRN PO CONSTIPATION Last administered on 08/14/18at 13:04; Admin Dose 2 TAB; Start 08/14/18 at 12:00 Albuterol/ Ipratropium (Duoneb) 3 ml Q6H RESP THERAPY PRN HHN SHORTNESS OF BREATH; Start 08/15/18 at 11:00 Ondansetron HCl (Zofran Inj) 4 mg Q6H PRN IV NAUSEA AND/OR VOMITING; Start 08/15/18 at 11:00 Epoetin Bam-epbx (Retacrit (Esrd)) 4,000 unit TuThSa@1700 SC ; Start 08/17/18 at 17:00 Multivit/Ca Carb/ B Cmplx/FA/Prenat (Addie-Mikayla) 1 tab DAILY PO ; Start 08/16/18 at 12:00 BONITA RUBIO MD August 16, 2018 11:56
[2018-08-16] MEDS: MULTIVIT/CA CARB/B CMPLX/FA TAB PO SCH (12:07)
--- NOTE | 2018-08-16 13:34 | PN ---
Date/Time of Note Date/Time of Note DATE: 08/16/18 TIME: 13:33 Assessment/Plan VTE Prophylaxis Risk score (from Ns)>0 risk: 6 SCD applied (from Ns): Yes Pharmacological prophylaxis: heparin Lines/Catheters IV [facility]from [facility] [place] Urinary Cath still in place: No Assessment/Plan Hospital Course Patient is undergoing hemodialysis now, awake alert, denies CP, atrial fibrillation at controlled rate. Assessment/Plan -Healthcare associated pneumonia, continue broad-spectrum antibiotics, Dr. Lucas is following in infection disease consultation. -Hyperkalemia -Dialysis dependent end-stage renal disease. Dr. Spicer is following in nephrology consultation. -Elevated troponin, Dr. William is following in cardiology consultation. -Atrial fibrillation, continue metoprolol and Eliquis. -Anemia of chronic disease -Diabetes mellitus type 2 with hemoglobin A1c of 6.5, continue Lantus and NovoLog -Peripheral vascular disease history of left lower extremity bypass surgery. -Right foot ulcer. Dr. Pineda is following and podiatry consultation. Disposition: to assisted living facility when symptoms resolve and cleared by consultants. Further recommendations based on clinical course. Plan of care discussed with Dr. Cordero. Result Diagram: 08/14/18 0503 08/14/18 0503 Results 24hrs Laboratory Tests Test 08/15/18 17:50 08/15/18 20:17 08/15/18 21:27 08/16/18 02:33 Bedside Glucose 121 72 83 150 Test 08/16/18 05:16 08/16/18 07:56 08/16/18 12:03 Phosphorus Level 7.8 H Bedside Glucose 186 75 Exam/Review of Systems Exam Vitals Vital Signs Date Temp Pulse Resp B/P (MAP) Pulse Ox O2 O2 Flow FiO2 Time Delivery Rate 08/16/18 66 13:10 08/16/18 97.6 153/66 97 Nasal 11:18 (95) Cannula 08/16/18 18 2.0 10:25 Intake and Output 08/15/18 08/15/18 08/16/18 1515:00 23:00 07:00 IntakeIntake Total 930 ml 500 ml BalanceBalance 930 ml 500 ml Exam Constitutional: alert, oriented Respiratory: diminished breath sounds Cardiovascular: regular rate and rhythm Gastrointestinal: soft, non-tender Musculoskeletal: nl extremities to inspection Extremities: normal pulses, other (Right foot ulcer) Neurological: nl mental status Left chest hemodialysis catheter Results Results 24hrs Laboratory Tests Test 08/15/18 17:50 08/15/18 20:17 08/15/18 21:27 08/16/18 02:33 Bedside Glucose 121 72 83 150 Test 08/16/18 05:16 08/16/18 07:56 08/16/18 12:03 Phosphorus Level 7.8 H Bedside Glucose 186 75 Medications Medication Current Medications Buspirone HCl (Buspar) 10 mg TID PO Last administered on 08/16/18 12:04; Admin Dose 10 MG; Start 08/10/18 at 09:00 Diltiazem HCl (Cardizem Cd) 120 mg DAILY PO Last administered on 08/16/18 08:21; Admin Dose 120 MG; Start 08/10/18 at 09:00 Furosemide (Lasix) 20 mg DAILY PO Last administered on 08/16/18 08:21; Admin Dose 20 MG; Start 08/10/18 at 09:00 Gabapentin (Neurontin) 300 mg TID PO Last administered on 08/16/18 12:04; Admin Dose 300 MG; Start 08/10/18 at 09:00 Metoprolol Tartrate (Lopressor) 25 mg BID PO Last administered on 08/15/18 20:18; Admin Dose 25 MG; Start 08/10/18 at 09:00 Pantoprazole (Protonix Tab) 40 mg AC BREAKFAST PO Last administered on 08/16/18 06:55; Admin Dose 40 MG; Start 08/10/18 at 07:00 Sevelamer Carbonate (Renvela) 1.6 gm WITH MEALS PO Last administered on 08/16/18 12:05; Admin Dose 1.6 GM; Start 08/10/18 at 08:00 Apixaban (Eliquis) 5 mg BID PO Last administered on 08/16/18 08:20; Admin Dose 5 MG; Start 08/10/18 at 09:00 Cefepime HCl 50 ml @ 100 mls/hr Q24H IVPB Last administered on 08/16/18 08:22; Admin Dose 100 MLS/HR; Start 08/10/18 at 09:00 Acetaminophen (Tylenol Tab) 650 mg Q6H PRN PO MILD PAIN(1-3)OR ELEVATED TEMP Last administered on 08/16/18 02:21; Admin Dose 650 MG; Start 08/09/18 at 23:30 Morphine Sulfate (morphine) 2 mg Q4H PRN IV SEVERE PAIN LEVEL 7-10 Last administered on 08/11/18 05:01; Admin Dose 2 MG; Start 08/09/18 at 23:30 Guaifenesin/ Codeine Phosphate (Robitussin Ac Liquid Cup) 10 ml Q4H PRN PO COUGH Last administered on 08/16/18 02:16; Admin Dose 10 ML; Start 08/09/18 at 23:30 Miscellaneous Information 1 ea NOTE XX ; Start 08/10/18 at 05:30 Glucose (Glutose) 15 gm Q15M PRN PO DECREASED GLUCOSE; Start 08/10/18 at 05:30 Glucose (Glutose) 22.5 gm Q15M PRN PO DECREASED GLUCOSE; Start 08/10/18 at 05:30 Dextrose (D50w Syringe) 25 ml Q15M PRN IV DECREASED GLUCOSE; Start 08/10/18 at 05:30 Dextrose (D50w Syringe) 50 ml Q15M PRN IV DECREASED GLUCOSE Last administered on 08/13/18 21:34; Admin Dose 50 ML; Start 08/10/18 at 05:30 Glucagon (Glucagen) 1 mg Q15M PRN IM DECREASED GLUCOSE; Start 08/10/18 at 05:30 Glucose (Glutose) 15 gm Q15M PRN BUCCAL DECREASED GLUCOSE Last administered on 08/14/18 19:18; Admin Dose 15 GM; Start 08/10/18 at 05:30 Insulin Aspart (Novolog Insulin Pen) NOVOLOG *MILD* ALGORI... AC MEALS AND BEDTIME SC Last administered on 08/16/18 08:14; Admin Dose 2 UNIT; Start 08/10/18 at 08:00 Diagnostic Test (Pha) (Accu-Chek) 1 ea 02 XX Last administered on 08/16/18 02:30; Admin Dose 1 EA; Start 08/11/18 at 02:00 Insulin Aspart (Novolog Insulin Pen) 10 unit WITH MEALS SC Last administered on 08/16/18 12:12; Admin Dose 10 UNIT; Start 08/11/18 at 08:00 Docusate Sodium (Colace) 100 mg DAILY PO Last administered on 08/16/18 08:21; Admin Dose 100 MG; Start 08/12/18 at 09:00 Tramadol HCl (Ultram) 50 mg Q12H PRN PO PAIN; Start 08/11/18 at 13:30 Diclofenac Sodium (Voltaren 1% Gel) 2 gm BID TP Last administered on 08/16/18 08:23; Admin Dose 2 GM; Start 08/11/18 at 21:00 Acetaminophen/ Hydrocodone Bitart ([place] (5/325)) 1 tab Q4H PRN PO MODERATE PAIN LEVEL 4-6 Last administered on 08/16/18 09:47; Admin Dose 1 TAB; Start 08/12/18 at 15:00 Isosorbide Dinitrate (Isordil) 10 mg TID PO Last administered on 08/15/18 20:18; Admin Dose 10 MG; Start 08/12/18 at 21:00 Lorazepam (Ativan) 1 mg Q6H PRN IV ANXIETY Last administered on 08/15/18 09:21; Admin Dose 1 MG; Start 08/12/18 at 22:30 Heparin Sodium (Porcine) (Heparin (1000 Units/ml)) 4,000 unit AFTER DIALYSIS CATHETER Last administered on 08/14/18 23:35; Admin Dose 4,700 UNIT; Start 08/13/18 at 16:30 Insulin Glargine (Lantus) 14 units DAILY@0800 SC Last administered on 08/16/18 08:13; Admin Dose 14 UNITS; Start 08/14/18 at 08:00 Senna (Senokot) 2 tab BID PRN PO CONSTIPATION Last administered on 08/14/18 13:04; Admin Dose 2 TAB; Start 08/14/18 at 12:00 Albuterol/ Ipratropium (Duoneb) 3 ml Q6H RESP THERAPY PRN HHN SHORTNESS OF BREATH; Start 08/15/18 at 11:00 Ondansetron HCl (Zofran Inj) 4 mg Q6H PRN IV NAUSEA AND/OR VOMITING; Start 08/15/18 at 11:00 Epoetin Bam-epbx (Retacrit (Esrd)) 4,000 unit TuThSa@1700 SC ; Start 08/17/18 at 17:00 Multivit/Ca Carb/ B Cmplx/FA/Prenat (Addie-Mikayla) 1 tab DAILY PO Last administered on 08/16/18at 12:07; Admin Dose 1 TAB; Start 08/16/18 at 12:00 ANTHONY DUPREE August 16, 2018 13:34
[2018-08-16] MEDS: LORAZEPAM 2 MG INJ IV PRN ×2 (13:57→20:53)
[2018-08-16] MEDS: HEPARIN 1000 UNITS/ML 10 ML INJ CATHETER SCH (14:01)
--- NOTE | 2018-08-16 15:50 | CONS ---
Assessment/Plan Assessment/Plan Assessment/Plan (Daily) Resolving ulcerations of the right foot. Continue with Betadine and gauze dressing until appt. in woundcare clinic. Consultation Date/Type/Reason Admit Date/Time August 09, 2018 at 17:42 Initial Consult Date 08/10/18 Requesting Provider: KIRSTIN SPANN MD Date/Time of Note DATE: 08/16/18 TIME: 15:48 24 HR Interval Summary Free Text/Dictation F/up on ulceration of the right foot. Exam/Review of Systems Exam Vitals Vital Signs Date Temp Pulse Resp B/P (MAP) Pulse Ox O2 O2 Flow FiO2 Time Delivery Rate 08/16/18 98.1 69 20 117/57 94 Room Air 15:20 (77) 08/16/18 2.0 10:25 Intake and Output 08/15/18 08/15/18 08/16/18 1515:00 23:00 07:00 IntakeIntake Total 930 ml 500 ml BalanceBalance 930 ml 500 ml Results Result Diagram: 08/14/18 0503 08/14/18 0503 Results 24hrs Laboratory Tests Test 08/15/18 17:50 08/15/18 20:17 08/15/18 21:27 08/16/18 02:33 Bedside Glucose 121 72 83 150 Test 08/16/18 05:16 08/16/18 07:56 08/16/18 12:03 Phosphorus Level 7.8 H Bedside Glucose 186 75 Medications Medication Current Medications Buspirone HCl (Buspar) 10 mg TID PO Last administered on 08/16/18at 12:04; Admin Dose 10 MG; Start 08/10/18 at 09:00 Diltiazem HCl (Cardizem Cd) 120 mg DAILY PO Last administered on 08/16/18 08:21; Admin Dose 120 MG; Start 08/10/18 at 09:00 Furosemide (Lasix) 20 mg DAILY PO Last administered on 08/16/18 08:21; Admin Dose 20 MG; Start 08/10/18 at 09:00 Gabapentin (Neurontin) 300 mg TID PO Last administered on 08/16/18at 12:04; Admin Dose 300 MG; Start 08/10/18 at 09:00 Metoprolol Tartrate (Lopressor) 25 mg BID PO Last administered on 08/15/18at 20:18; Admin Dose 25 MG; Start 08/10/18 at 09:00 Pantoprazole (Protonix Tab) 40 mg AC BREAKFAST PO Last administered on 08/16/18 06:55; Admin Dose 40 MG; Start 08/10/18 at 07:00 Sevelamer Carbonate (Renvela) 1.6 gm WITH MEALS PO Last administered on 08/16/18 12:05; Admin Dose 1.6 GM; Start 08/10/18 at 08:00 Apixaban (Eliquis) 5 mg BID PO Last administered on 08/16/18 08:20; Admin Dose 5 MG; Start 08/10/18 at 09:00 Cefepime HCl 50 ml @ 100 mls/hr Q24H IVPB Last administered on 08/16/18 08:22; Admin Dose 100 MLS/HR; Start 08/10/18 at 09:00 Acetaminophen (Tylenol Tab) 650 mg Q6H PRN PO MILD PAIN(1-3)OR ELEVATED TEMP Last administered on 08/16/18 02:21; Admin Dose 650 MG; Start 08/09/18 at 23:30 Morphine Sulfate (morphine) 2 mg Q4H PRN IV SEVERE PAIN LEVEL 7-10 Last administered on 08/11/18 05:01; Admin Dose 2 MG; Start 08/09/18 at 23:30 Guaifenesin/ Codeine Phosphate (Robitussin Ac Liquid Cup) 10 ml Q4H PRN PO COUGH Last administered on 08/16/18 02:16; Admin Dose 10 ML; Start 08/09/18 at 23:30 Miscellaneous Information 1 ea NOTE XX ; Start 08/10/18 at 05:30 Glucose (Glutose) 15 gm Q15M PRN PO DECREASED GLUCOSE; Start 08/10/18 at 05:30 Glucose (Glutose) 22.5 gm Q15M PRN PO DECREASED GLUCOSE; Start 08/10/18 at 05:30 Dextrose (D50w Syringe) 25 ml Q15M PRN IV DECREASED GLUCOSE; Start 08/10/18 at 05:30 Dextrose (D50w Syringe) 50 ml Q15M PRN IV DECREASED GLUCOSE Last administered on 08/13/18 21:34; Admin Dose 50 ML; Start 08/10/18 at 05:30 Glucagon (Glucagen) 1 mg Q15M PRN IM DECREASED GLUCOSE; Start 08/10/18 at 05:30 Glucose (Glutose) 15 gm Q15M PRN BUCCAL DECREASED GLUCOSE Last administered on 08/14/18 19:18; Admin Dose 15 GM; Start 08/10/18 at 05:30 Insulin Aspart (Novolog Insulin Pen) NOVOLOG *MILD* ALGORI... AC MEALS AND BEDTIME SC Last administered on 08/16/18 08:14; Admin Dose 2 UNIT; Start 08/10/18 at 08:00 Diagnostic Test (Pha) (Accu-Chek) 1 ea 02 XX Last administered on 08/16/18 02:30; Admin Dose 1 EA; Start 08/11/18 at 02:00 Insulin Aspart (Novolog Insulin Pen) 10 unit WITH MEALS SC Last administered on 08/16/18 12:12; Admin Dose 10 UNIT; Start 08/11/18 at 08:00 Docusate Sodium (Colace) 100 mg DAILY PO Last administered on 08/16/18 08:21; Admin Dose 100 MG; Start 08/12/18 at 09:00 Tramadol HCl (Ultram) 50 mg Q12H PRN PO PAIN; Start 08/11/18 at 13:30 Diclofenac Sodium (Voltaren 1% Gel) 2 gm BID TP Last administered on 08/16/18 08:23; Admin Dose 2 GM; Start 08/11/18 at 21:00 Acetaminophen/ Hydrocodone Bitart ([place] (5/325)) 1 tab Q4H PRN PO MODERATE PAIN LEVEL 4-6 Last administered on 08/16/18 09:47; Admin Dose 1 TAB; Start 08/12/18 at 15:00 Isosorbide Dinitrate (Isordil) 10 mg TID PO Last administered on 08/15/18 20:18; Admin Dose 10 MG; Start 08/12/18 at 21:00 Lorazepam (Ativan) 1 mg Q6H PRN IV ANXIETY Last administered on 08/16/18 13:57; Admin Dose 1 MG; Start 08/12/18 at 22:30 Heparin Sodium (Porcine) (Heparin (1000 Units/ml)) 4,000 unit AFTER DIALYSIS CATHETER Last administered on 08/16/18 14:01; Admin Dose 4,700 UNIT; Start 08/13/18 at 16:30 Insulin Glargine (Lantus) 14 units DAILY@0800 SC Last administered on 08/16/18at 08:13; Admin Dose 14 UNITS; Start 08/14/18 at 08:00 Senna (Senokot) 2 tab BID PRN PO CONSTIPATION Last administered on 08/14/18at 13:04; Admin Dose 2 TAB; Start 08/14/18 at 12:00 Albuterol/ Ipratropium (Duoneb) 3 ml Q6H RESP THERAPY PRN HHN SHORTNESS OF BREATH; Start 08/15/18 at 11:00 Ondansetron HCl (Zofran Inj) 4 mg Q6H PRN IV NAUSEA AND/OR VOMITING; Start 08/15/18 at 11:00 Epoetin Bam-epbx (Retacrit (Esrd)) 4,000 unit TuThSa@1700 SC ; Start 08/17/18 at 17:00 Multivit/Ca Carb/ B Cmplx/FA/Prenat (Addie-Mikayla) 1 tab DAILY PO Last administ ered on 08/16/18at 12:07; Admin Dose 1 TAB; Start 08/16/18 at 12:00 MELLO CALDERON DPM August 16, 2018 15:50
[2018-08-16] MEDS: SENNA TAB PO PRN (16:58)
[2018-08-17] VITALS (22 sets, daily range): BP systolic 121–161; BP diastolic 51–77; PULSE 55–94; RESP 18–20
[2018-08-17] MEDS: HYDROCORTISONE 0.5% 28.35 GM CR TOP PRN (00:53)
[2018-08-17] MEDS: ACCU-CHEK XX SCH (02:11)
[2018-08-17] MEDS: GUAIFENESIN/CODEINE 5ML CUP PO PRN ×2 (04:55→20:00)
[2018-08-17] MEDS: PANTOPRAZOLE (EC) 40 MG TAB PO SCH (06:13)
[2018-08-17] MEDS: INSULIN GLARGINE [LANTus] (100 UNITS/ML) SYG SC SCH (07:35)
[2018-08-17] MEDS: INSULIN ASPART [NOVOLOG] 3 ML PEN SC SCH ×7 (07:36→20:00)
[2018-08-17] MEDS: SEVELAMER CARBONATE 0.8 GM PKT PO SCH ×3 (07:37→17:20)
[2018-08-17] MEDS: DOCUSATE SODIUM 100 MG CAP PO SCH (08:40)
[2018-08-17] MEDS: MULTIVIT/CA CARB/B CMPLX/FA TAB PO SCH (08:41)
[2018-08-17] MEDS: APIXABAN 5 MG TABLET PO SCH ×2 (08:41→20:00)
[2018-08-17] MEDS: METOPROLOL 25 MG TAB PO SCH ×2 (08:42→21:00)
[2018-08-17] MEDS: GABAPENTIN 300 MG CAP PO SCH ×3 (08:42→20:00)
[2018-08-17] MEDS: BUSPIRONE 10 MG TAB PO SCH ×3 (08:43→20:00)
[2018-08-17] MEDS: DILTIAZEM (CD) 120 MG CAP PO SCH (08:44)
[2018-08-17] MEDS: ISOSORBIDE DINITRATE 10 MG TAB PO SCH ×3 (08:44→21:00)
[2018-08-17] MEDS: DICLOFENAC SODIUM 1% GEL 100 GM TUBE TP SCH ×2 (08:45→23:15)
[2018-08-17] MEDS: FUROSEMIDE 20 MG TAB PO SCH (08:46)
[2018-08-17] MEDS: HYDROCODONE/APAP (5/325) TAB PO PRN ×2 (08:48→17:20)
[2018-08-17] MEDS: CEFEPIME 1GM/50 ML (PMX) 50 ML IVPB SCH (08:48)
--- NOTE | 2018-08-17 09:06 | CONS ---
Consult Date/Type/Reason Admit Date/Time August 09, 2018 at 17:42 Initial Consult Date 08/10/18 Requesting Provider: KIRSTIN SPANN MD Date/Time of Note DATE: 08/17/18 TIME: 09:03 Subjective NO acute events -pt better now - still refuses stress test - better s/p HD - will follow concurrently with renal team. ROS: No fever, no chills, no nausea, no vomiting, no diarrhea/constipation No recent weight changes No chest pain, no PND, no orthopnea - improved SOB. No dizziness, blurred vision No thirst, no heat or cold intolerance Objective Vitals Vital Signs Date Temp Pulse Resp B/P (MAP) Pulse Ox O2 O2 Flow FiO2 Time Delivery Rate 08/17/18 70 08:09 08/17/18 98.1 19 145/77 96 08:06 (99) 08/17/18 21 02:28 08/16/18 20:17 08/16/18 Room Air 15:20 Intake and Output 08/16/18 08/16/18 08/17/18 1515:00 23:00 07:00 IntakeIntake Total 1100 ml 500 ml OutputOutput Total 3400 ml BalanceBalance -3400 ml 1100 ml 500 ml Exam General: WN/WD/NAD, AOx 3 HEENT: Unicetric/atraumatic/EOMI ( follow commands) NECK: JVD elevated, no thyromegaly Lymph: no lymphadenopathy HEART: regular with no S3, II/ systolic murmur at apex, PMI L LUNGS: Coarse sounds ABD: soft, NT, ND, +BS : Intact Neuro: non focal SKIN: chronic changes EXT: 1-2+ edema, better Results/Medications Result Diagram: 08/14/18 0503 08/17/18 0517 Results 24 hrs Laboratory Tests Test 08/16/18 12:03 08/16/18 16:56 08/16/18 20:55 08/17/18 02:06 Bedside Glucose 75 155 142 228 H Test 08/17/18 05:17 08/17/18 07:34 Sodium Level 138 Potassium Level 4.7 Chloride Level 98 Carbon Dioxide Level 25 Anion Gap 15 H Blood Urea Nitrogen 46 H Creatinine 5.56 H Est Glomerular 8 L Filtrat Rate mL/min Glucose Level 188 Calcium Level 8.9 Bedside Glucose 248 H Home Meds Reported Medications Albuterol Sulfate* (Ventolin HFA*) 18 Gm Hfa.aer.ad, 2 PUFF INHALATION Q6H, #1 INHALER 08/15/18 Metoprolol Tartrate* (Lopressor*) 25 Mg Tab, 25 MG PO BID, #60 TAB 08/09/18 Pantoprazole* (Pantoprazole*) 40 Mg Tablet.dr, 40 MG PO AC BREAKFAST, TAB 08/09/18 Diltiazem Hcl* (Diltiazem XT) 120 Mg Capsule.sa, 120 MG PO DAILY, #30 CAP 08/09/18 Amlodipine Besylate* (Norvasc*) 5 Mg Tablet, 5 MG PO DAILY, TAB 08/09/18 Buspirone Hcl* (Buspirone Hcl*) 10 Mg Tab, 10 MG PO TID, TAB 08/09/18 Furosemide* (Furosemide*) 20 Mg Tablet, 20 MG PO DAILY, #60 TAB 08/09/18 Gabapentin* (Gabapentin*) 300 Mg Capsule, 300 MG PO TID, #90 CAP 08/09/18 Methocarbamol* (Methocarbamol*) 500 Mg Tablet, 500 MG PO DAILY, TAB 08/09/18 Sevelamer Hcl* (Renagel*) 800 Mg Tablet, 1600 MG PO WITH MEALS, TAB 08/09/18 Apixaban* (Eliquis*) 5 Mg Tablet, 5 MG PO BID, TAB 08/09/18 Medications Current Medications Buspirone HCl (Buspar) 10 mg TID PO Last administered on 08/17/18at 08:43; Admin Dose 10 MG; Start 08/10/18 at 09:00 Diltiazem HCl (Cardizem Cd) 120 mg DAILY PO Last administered on 08/16/18at 08:21; Admin Dose 120 MG; Start 08/10/18 at 09:00 Furosemide (Lasix) 20 mg DAILY PO Last administered on 08/17/18at 08:46; Admin Dose 20 MG; Start 08/10/18 at 09:00 Gabapentin (Neurontin) 300 mg TID PO Last administered on 08/17/18 08:42; Admin Dose 300 MG; Start 08/10/18 at 09:00 Metoprolol Tartrate (Lopressor) 25 mg BID PO Last administered on 08/17/18at 08:42; Admin Dose 25 MG; Start 08/10/18 at 09:00 Pantoprazole (Protonix Tab) 40 mg AC BREAKFAST PO Last administered on 08/17/18 06:13; Admin Dose 40 MG; Start 08/10/18 at 07:00 Sevelamer Carbonate (Renvela) 1.6 gm WITH MEALS PO Last administered on 08/17/18 07:37; Admin Dose 1.6 GM; Start 08/10/18 at 08:00 Apixaban (Eliquis) 5 mg BID PO Last administered on 08/17/18at 08:41; Admin Dose 5 MG; Start 08/10/18 at 09:00 Cefepime HCl 50 ml @ 100 mls/hr Q24H IVPB Last administered on 08/17/18 08:48; Admin Dose 100 MLS/HR; Start 08/10/18 at 09:00 Acetaminophen (Tylenol Tab) 650 mg Q6H PRN PO MILD PAIN(1-3)OR ELEVATED TEMP Last administered on 08/16/18at 02:21; Admin Dose 650 MG; Start 08/09/18 at 23:30 Morphine Sulfate (morphine) 2 mg Q4H PRN IV SEVERE PAIN LEVEL 7-10 Last administered on 08/11/18 05:01; Admin Dose 2 MG; Start 08/09/18 at 23:30 Guaifenesin/ Codeine Phosphate (Robitussin Ac Liquid Cup) 10 ml Q4H PRN PO COUG H Last administered on 08/17/18at 04:55; Admin Dose 10 ML; Start 08/09/18 at 23:30 Miscellaneous Information 1 ea NOTE XX ; Start 08/10/18 at 05:30 Glucose (Glutose) 15 gm Q15M PRN PO DECREASED GLUCOSE; Start 08/10/18 at 05:30 Glucose (Glutose) 22.5 gm Q15M PRN PO DECREASED GLUCOSE; Start 08/10/18 at 05:30 Dextrose (D50w Syringe) 25 ml Q15M PRN IV DECREASED GLUCOSE; Start 08/10/18 at 05:30 Dextrose (D50w Syringe) 50 ml Q15M PRN IV DECREASED GLUCOSE Last administered on 08/13/18at 21:34; Admin Dose 50 ML; Start 08/10/18 at 05:30 Glucagon (Glucagen) 1 mg Q15M PRN IM DECREASED GLUCOSE; Start 08/10/18 at 05:30 Glucose (Glutose) 15 gm Q15M PRN BUCCAL DECREASED GLUCOSE Last administered on 08/14/18 19:18; Admin Dose 15 GM; Start 08/10/18 at 05:30 Insulin Aspart (Novolog Insulin Pen) NOVOLOG *MILD* ALGORI... AC MEALS AND BEDTIME SC Last administered on 08/17/18 07:36; Admin Dose 3 UNIT; Start 08/10/18 at 08:00 Diagnostic Test (Pha) (Accu-Chek) 1 ea 02 XX Last administered on 08/17/18 02:11; Admin Dose 1 EA; Start 08/11/18 at 02:00 Insulin Aspart (Novolog Insulin Pen) 10 unit WITH MEALS SC Last administered on 08/17/18 07:36; Admin Dose 10 UNIT; Start 08/11/18 at 08:00 Docusate Sodium (Colace) 100 mg DAILY PO Last administered on 08/17/18 08:40; Admin Dose 100 MG; Start 08/12/18 at 09:00 Tramadol HCl (Ultram) 50 mg Q12H PRN PO PAIN; Start 08/11/18 at 13:30 Diclofenac Sodium (Voltaren 1% Gel) 2 gm BID TP Last administered on 08/17/18 08:45; Admin Dose 2 GM; Start 08/11/18 at 21:00 Acetaminophen/ Hydrocodone Bitart ([place] (5/325)) 1 tab Q4H PRN PO MODERATE PAIN LEVEL 4-6 Last administered on 08/17/18 08:48; Admin Dose 1 TAB; Start 08/12/18 at 15:00 Isosorbide Dinitrate (Isordil) 10 mg TID PO Last administered on 08/15/18 20:18; Admin Dose 10 MG; Start 08/12/18 at 21:00 Lorazepam (Ativan) 1 mg Q6H PRN IV ANXIETY Last administered on 08/16/18 20:53; Admin Dose 1 MG; Start 08/12/18 at 22:30 Heparin Sodium (Porcine) (Heparin (1000 Units/ml)) 4,000 unit AFTER DIALYSIS CATHETER Last administered on 08/16/18 14:01; Admin Dose 4,700 UNIT; Start 08/13/18 at 16:30 Insulin Glargine (Lantus) 14 units DAILY@0800 SC Last administered on 08/17/18at 07:35; Admin Dose 14 UNITS; Start 08/14/18 at 08:00 Senna (Senokot) 2 tab BID PRN PO CONSTIPATION Last administered on 08/16/18at 16:58; Admin Dose 2 TAB; Start 08/14/18 at 12:00 Albuterol/ Ipratropium (Duoneb) 3 ml Q6H RESP THERAPY PRN HHN SHORTNESS OF BREATH; Start 08/15/18 at 11:00 Ondansetron HCl (Zofran Inj) 4 mg Q6H PRN IV NAUSEA AND/OR VOMITING; Start 08/15/18 at 11:00 Epoetin Bam-epbx (Retacrit (Esrd)) 4,000 unit TuThSa@1700 SC ; Start 08/17/18 at 17:00 Multivit/Ca Carb/ B Cmplx/FA/Prenat (Addie-Mikayla) 1 tab DAILY PO Last administered on 08/17/18at 08:41; Admin Dose 1 TAB; Start 08/16/18 at 12:00 Hydrocortisone (Hydrocortisone 0.5% Cr) 1 applic BID PRN TOP ITCHING Last administered on 08/17/18at 00:53; Admin Dose 1 APPLIC; Start 08/16/18 at 22:30 Assessment/Plan Hospital Course (Demo Recall) 1. Positive troponin, assess significance in the setting of renal failure, likely type 2 demand infarct in the setting of pneumoni - declined Stress test - will re-evaluate with another set of troponins. No CP now - plan for conservative Rx. REFUSES STRES TEST - will consider LHC per DR. William, likely outpt. NO CP now - med rx now. STILL REFUSES STRES TEST - better clinically. 2. Atrial fibrillation, rate controlled - con't to follow. No tachy-prasad episodes noted. Better now. Controlled. Treated. 3. Abnormal electrocardiogram, assess for true acute coronary syndrome. NO CP - refused stress test. 4. Hypertension, well controlled - HD to follow. Defer to renal team. Better. Con;t med rx. 5. End-stage renal disease, on hemodialysi s - pt asking for "more HD" - will defer to renal team now. 6. Nausea- better now - in good satus now. NO new episodes now - tolerated food. 7. Left lower lobe pneumonia - on anti-Bx, con't med rx. NO fevers now. 8. Peripheral arterial disease with nonhealing lower extremity ulcer - con't skin care. MARY JO AGUIRRE MD August 17, 2018 09:06
[2018-08-17] MEDS: LORAZEPAM 2 MG INJ IV PRN (10:44)
--- NOTE | 2018-08-17 11:01 | CONS ---
Assessment/Plan Assessment/Plan Hospital Course (Demo Recall) - S/p sepsis d/t HCAP - fever and tachycardia resolved - HCAP - slowly improving - Likely underlying fluid overload - ESRD on HD T-T-S - Hyperkalemia - Elevated troponin - H/o non-healing diabetic R foot ulceration with infection at site of recent debridement; cultures grew MSSA and Enterococcus (ESR 93) - S/p excisional sharp debridement of the right first toe involving skin and subcutaneous tissue on 06/11/2017 - Evidence of osteomyelitis at the remnant of the first distal phalanx per MRI R foot 06/24/2017 - DM with hypoglycemic episode - Hgb A1c 6.5% - Diabetic neuropathy - H/o diabetic foot infections/OM of b/l feet, s/p amputation of R two toes - H/o central stenosis with apparent recent re-vascularization - S/p placement of L IJ HD catheter 06/20/2017 - PVD - H/o LLE bypass - CHF and CAD - Anemia of chronic kidney disease - Morbid obesity - BMI 39.9 - H/o dysphagia, Group A pharyngitis screen was negative - H/o mildly dilated esophagus on CT (11/2016) and multiple distal erosive lesions in the distal esophagus per EGD (11/27/2016; path negative) - 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 Pt's sinuses are non-TTP. On a trial of renally dosed oseltamivir (06/30/2017-) Recommendations: - Repeat procalcitonin in am - ordered - Continue Cefepime (08/09/2018-); potentially stop tmrw depending on procalc - Pending: respiratory virus panel, and pertussis DFA - still pending Plan ws d/w patient, and with Dr. Lucas via [employer] [employer]. Thank you Consultation Date/Type/Reason Admit Date/Time August 09, 2018 at 17:42 Initial Consult Date 08/10/18 Type of Consult ID Requesting Provider: KIRSTIN SPANN MD Date/Time of Note DATE: 08/17/18 TIME: 10:56 Detailed Summary Eyes: no complaints ENT: no complaints Respiratory: cough, shortness of breath (with exertion), sputum (reports dark green but decreased amt), wheezing Cardiovascular: no complaints Gastrointestinal: no complaints Genitourinary: no complaints Musculoskeletal: no complaints Skin: no complaints Neurologic: no complaints Psychological: no complaints, nl mood/affect Immunologic: no complaints Exam/Review of Systems Exam Vitals Vital Signs Date Temp Pulse Resp B/P (MAP) Pulse Ox O2 O2 Flow FiO2 Time Delivery Rate 08/17/18 70 08:09 08/17/18 98.1 19 145/77 96 08:06 (99) 08/17/18 21 02:28 08/16/18 20:17 08/16/18 Room Air 15:20 Intake and Output 08/16/18 08/16/18 08/17/18 1515:00 23:00 07:00 IntakeIntake Total 1100 ml 500 ml OutputOutput Total 3400 ml BalanceBalance -3400 ml 1100 ml 500 ml Allergies Coded Allergies No Known Allergies (Verified Allergy, Unknown, 08/09/18) . Constitutional: alert, oriented, well developed, obese, other (sitting up in a chair at the bedside. ) Psych: no complaints, nl mood/affect Head: normocephalic, atraumatic Eyes: nl conjunctiva, nl lids, nl sclera ENMT: nl external ears & nose, nl nasal mucosa & septum, mucosa pink and moist (no thrush noted) Neck: supple, non-tender Respiratory: crackles/rales (bilaterally), diminished breath sounds, wheezing (expiratory randi upper lung camarena), other (dry cough, on O2 via nc) Cardiovascular: regular rate and rhythm, nl pulses Gastrointestinal: soft, non-tender, bowel sounds (normoactive) Genitourinary - Female: other (L Chest HD catheter, site is c/d/i) Musculoskeletal: nl extremities to inspection Extremities: normal pulses, other (R partial great toe and R 5th toe amputations; R 4th finger PIV site is c/d/i. ) Neurological: [employer]END[employer] II-XII intact, nl mental status, nl speech, other (generalized weaknes; Pt was sleeping when I entered, awakened via tactile stimuli) Skin: nl turgor, other (L foot wrapped with a c/d/i kerlix dressing); No rash or lesions Results Result Diagram: 08/17/18 0955 08/17/18 0517 Results 24hrs Laboratory Tests Test 08/16/18 12:03 08/16/18 16:56 08/16/18 20:55 08/17/18 02:06 Bedside Glucose 75 155 142 228 H Test 08/17/18 05:17 08/17/18 07:34 08/17/18 09:55 Sodium Level 138 Potassium Level 4.7 Chloride Level 98 Carbon Dioxide Level 25 Anion Gap 15 H Blood Urea Nitrogen 46 H Creatinine 5.56 H Est Glomerular 8 L Filtrat Rate mL/min Glucose Level 188 Calcium Level 8.9 Bedside Glucose 248 H Hemoglobin 10.1 L Medications Medication Current Medications Buspirone HCl (Buspar) 10 mg TID PO Last administered on 08/17/18 08:43; Admin Dose 10 MG; Start 08/10/18 at 09:00 Diltiazem HCl (Cardizem Cd) 120 mg DAILY PO Last administered on 08/16/18 08:21; Admin Dose 120 MG; Start 08/10/18 at 09:00 Furosemide (Lasix) 20 mg DAILY PO Last administered on 08/17/18 08:46; Admin Dose 20 MG; Start 08/10/18 at 09:00 Gabapentin (Neurontin) 300 mg TID PO Last administered on 08/17/18 08:42; Admin Dose 300 MG; Start 08/10/18 at 09:00 Metoprolol Tartrate (Lopressor) 25 mg BID PO Last administered on 08/17/18 08:42; Admin Dose 25 MG; Start 08/10/18 at 09:00 Pantoprazole (Protonix Tab) 40 mg AC BREAKFAST PO Last administered on 08/17/18 06:13; Admin Dose 40 MG; Start 08/10/18 at 07:00 Sevelamer Carbonate (Renvela) 1.6 gm WITH MEALS PO Last administered on 08/17/18 07:37; Admin Dose 1.6 GM; Start 08/10/18 at 08:00 Apixaban (Eliquis) 5 mg BID PO Last administered on 08/17/18 08:41; Admin Dose 5 MG; Start 08/10/18 at 09:00 Cefepime HCl 50 ml @ 100 mls/hr Q24H IVPB Last administered on 08/17/18 08:48; Admin Dose 100 MLS/HR; Start 08/10/18 at 09:00 Acetaminophen (Tylenol Tab) 650 mg Q6H PRN PO MILD PAIN(1-3)OR ELEVATED TEMP Last administered on 08/16/18 02:21; Admin Dose 650 MG; Start 08/09/18 at 23:30 Morphine Sulfate (morphine) 2 mg Q4H PRN IV SEVERE PAIN LEVEL 7-10 Last administered on 08/11/18 05:01; Admin Dose 2 MG; Start 08/09/18 at 23:30 Guaifenesin/ Codeine Phosphate (Robitussin Ac Liquid Cup) 10 ml Q4H PRN PO COUGH Last administered on 08/17/18 04:55; Admin Dose 10 ML; Start 08/09/18 at 23:30 Miscellaneous Information 1 ea NOTE XX ; Start 08/10/18 at 05:30 Glucose (Glutose) 15 gm Q15M PRN PO DECREASED GLUCOSE; Start 08/10/18 at 05:30 Glucose (Glutose) 22.5 gm Q15M PRN PO DECREASED GLUCOSE; Start 08/10/18 at 05:30 Dextrose (D50w Syringe) 25 ml Q15M PRN IV DECREASED GLUCOSE; Start 08/10/18 at 05:30 Dextrose (D50w Syringe) 50 ml Q15M PRN IV DECREASED GLUCOSE Last administered on 08/13/18 21:34; Admin Dose 50 ML; Start 08/10/18 at 05:30 Glucagon (Glucagen) 1 mg Q15M PRN IM DECREASED GLUCOSE; Start 08/10/18 at 05:30 Glucose (Glutose) 15 gm Q15M PRN BUCCAL DECREASED GLUCOSE Last administered on 08/14/18 19:18; Admin Dose 15 GM; Start 08/10/18 at 05:30 Insulin Aspart (Novolog Insulin Pen) NOVOLOG *MILD* ALGORI... AC MEALS AND BEDTIME SC Last administered on 08/17/18 07:36; Admin Dose 3 UNIT; Start 08/10/18 at 08:00 Diagnostic Test (Pha) (Accu-Chek) 1 ea 02 XX Last administered on 08/17/18 02:11; Admin Dose 1 EA; Start 08/11/18 at 02:00 Insulin Aspart (Novolog Insulin Pen) 10 unit WITH MEALS SC Last administered on 08/17/18 07:36; Admin Dose 10 UNIT; Start 08/11/18 at 08:00 Docusate Sodium (Colace) 100 mg DAILY PO Last administered on 08/17/18 08:40; Admin Dose 100 MG; Start 08/12/18 at 09:00 Tramadol HCl (Ultram) 50 mg Q12H PRN PO PAIN; Start 08/11/18 at 13:30 Diclofenac Sodium (Voltaren 1% Gel) 2 gm BID TP Last administered on 08/17/18 08:45; Admin Dose 2 GM; Start 08/11/18 at 21:00 Acetaminophen/ Hydrocodone Bitart ([place] (5/325)) 1 tab Q4H PRN PO MODERATE PAIN LEVEL 4-6 Last administered on 08/17/18 08:48; Admin Dose 1 TAB; Start 08/12/18 at 15:00 Isosorbide Dinitrate (Isordil) 10 mg TID PO Last administered on 08/15/18 20:18; Admin Dose 10 MG; Start 08/12/18 at 21:00 Lorazepam (Ativan) 1 mg Q6H PRN IV ANXIETY Last administered on 08/17/18 10:44; Admin Dose 1 MG; Start 08/12/18 at 22:30 Heparin Sodium (Porcine) (Heparin (1000 Units/ml)) 4,000 unit AFTER DIALYSIS CATHETER Last administered on 08/16/18 14:01; Admin Dose 4,700 UNIT; Start 08/13/18 at 16:30 Insulin Glargine (Lantus) 14 units DAILY@0800 SC Last administered on 08/17/18 07:35; Admin Dose 14 UNITS; Start 08/14/18 at 08:00 Senna (Senokot) 2 tab BID PRN PO CONSTIPATION Last administered on 08/16/18 16:58; Admin Dose 2 TAB; Start 08/14/18 at 12:00 Albuterol/ Ipratropium (Duoneb) 3 ml Q6H RESP THERAPY PRN HHN SHORTNESS OF BREATH; Start 08/15/18 at 11:00 Ondansetron HCl (Zofran Inj) 4 mg Q6H PRN IV NAUSEA AND/OR VOMITING; Start 08/15/18 at 11:00 Epoetin Bam-epbx (Retacrit (Esrd)) 4,000 unit TuThSa@1700 SC ; Start 08/17/18 at 17:00 Multivit/Ca Carb/ B Cmplx/FA/Prenat (Addie-Mikayla) 1 tab DAILY PO Last administered on 08/17/18at 08:41; Admin Dose 1 TAB; Start 08/16/18 at 12:00 Hydrocortisone (Hydrocortisone 0.5% Cr) 1 applic BID PRN TOP ITCHING Last administered on 08/17/18at 00:53; Admin Dose 1 APPLIC; Start 08/16/18 at 22:30 ANA PAULA GARCIA NP August 17, 2018 11:01
--- NOTE | 2018-08-17 14:52 | PN ---
Date/Time of Note Date/Time of Note DATE: 08/17/18 TIME: 14:50 Assessment/Plan VTE Prophylaxis Risk score (from Nsg)>0 risk: 7 SCD applied (from Nsg): No SCD contraindicated: low risk/ambulating Pharmacological prophylaxis: NA/contraindicated Pharm contraindication: low risk/ambulating Lines/Catheters IV Catheter Type (from Nrs): Peripheral IV Urinary Cath still in place: No Assessment/Plan Assessment/Plan 58-year-old female who presented with: 1. Shortness of breath, cough, with fevers, likely secondary to pneumonia; however, might have some underlying fluid overload. 2. Hyperkalemia. Not sure about patient's compliance; however, the patient had been going to his dialysis center. 3. Elevated troponin. Patient has history of end-stage renal disease.? ACS 4. History of peripheral vascular disease. 5. End-stage renal disease, Thursday, , Thursday. 6. Anemia, likely anemia of chronic disease. 7. Peripheral vascular disease status post bypass of the left lower extremity. 8. Right foot ulcer with infection at the site of recent debridement. Cultures grew MSSA and Enterococcus. 9. History of central stenosis with apparent revascularization. 10. Status post placement of left IJ Permcath 06/2017. Plan - HD MWF, will do extra session of UF today for volume removal - Next Regular hd tmw - cw renavite - iv abx per ID - pain meds per primary - renally dose all meds - apparel cutter bp/blood draws in left upper ext Result Diagram: 08/17/18 0955 08/17/18 0517 Results 24hrs Laboratory Tests Test 08/16/18 16:56 08/16/18 20:55 08/17/18 02:06 08/17/18 05:17 Bedside Glucose 155 142 228 H Sodium Level 138 Potassium Level 4.7 Chloride Level 98 Carbon Dioxide Level 25 Anion Gap 15 H Blood Urea Nitrogen 46 H Creatinine 5.56 H Est Glomerular 8 L Filtrat Rate mL/min Glucose Level 188 Calcium Level 8.9 Test 08/17/18 07:34 08/17/18 09:55 08/17/18 12:16 Bedside Glucose 248 H 191 Hemoglobin 10.1 L Subjective 24 Hr Interval Summary Free Text/Dictation b/l lower extremity edema sob Exam/Review of Systems Exam Vitals Vital Signs Date Temp Pulse Resp B/P (MAP) Pulse Ox O2 O2 Flow FiO2 Time Delivery Rate 08/17/18 69 12:22 08/17/18 98.0 19 140/63 96 11:22 (88) 08/17/18 21 02:28 08/16/18 20:17 08/16/18 Room Air 15:20 Intake and Output 08/16/18 08/16/18 08/17/18 1515:00 23:00 07:00 IntakeIntake Total 1100 ml 500 ml OutputOutput Total 3400 ml BalanceBalance -3400 ml 1100 ml 500 ml Exam Exam GENERAL: The patient is awake, alert, oriented, does not appear to be in any acute distress. HEENT: Pupils equal, round, reactive to light. NECK: Supple, no JVD. HEART: Regular rate and rhythm. LUNGS: Diffuse bilateral rhonchi and some crackles appreciated, especially on the left base. ABDOMEN: Soft, nontender, nondistended, positive normoactive bowel sounds. EXTREMITIES: The patient has a left Perm-A-Cath in place. The patient has a left upper extremity fistula with a bruit/thrill. Patient has a right leg diabetic ulcer, status post amputation of the right first toe. Results Results 24hrs Laboratory Tests Test 08/16/18 16:56 08/16/18 20:55 08/17/18 02:06 08/17/18 05:17 Bedside Glucose 155 142 228 H Sodium Level 138 Potassium Level 4.7 Chloride Level 98 Carbon Dioxide Level 25 Anion Gap 15 H Blood Urea Nitrogen 46 H Creatinine 5.56 H Est Glomerular 8 L Filtrat Rate mL/min Glucose Level 188 Calcium Level 8.9 Test 08/17/18 07:34 08/17/18 09:55 08/17/18 12:16 Bedside Glucose 248 H 191 Hemoglobin 10.1 L Medications Medication Current Medications Buspirone HCl (Buspar) 10 mg TID PO Last administered on 08/17/18at 12:15; Admin Dose 10 MG; Start 08/10/18 at 09:00 Diltiazem HCl (Cardizem Cd) 120 mg DAILY PO Last administered on 08/16/18at 08:21; Admin Dose 120 MG; Start 08/10/18 at 09:00 Furosemide (Lasix) 20 mg DAILY PO Last administered on 08/17/18at 08:46; Admin Dose 20 MG; Start 08/10/18 at 09:00 Gabapentin (Neurontin) 300 mg TID PO Last administered on 08/17/18 12:15; Admin Dose 300 MG; Start 08/10/18 at 09:00 Metoprolol Tartrate (Lopressor) 25 mg BID PO Last administered on 08/17/18 08:42; Admin Dose 25 MG; Start 08/10/18 at 09:00 Pantoprazole (Protonix Tab) 40 mg AC BREAKFAST PO Last administered on 08/17/18 06:13; Admin Dose 40 MG; Start 08/10/18 at 07:00 Sevelamer Carbonate (Renvela) 1.6 gm WITH MEALS PO Last administered on 08/17/18 12:15; Admin Dose 1.6 GM; Start 08/10/18 at 08:00 Apixaban (Eliquis) 5 mg BID PO Last administered on 08/17/18 08:41; Admin Dose 5 MG; Start 08/10/18 at 09:00 Cefepime HCl 50 ml @ 100 mls/hr Q24H IVPB Last administered on 08/17/18 08:48; Admin Dose 100 MLS/HR; Start 08/10/18 at 09:00 Acetaminophen (Tylenol Tab) 650 mg Q6H PRN PO MILD PAIN(1-3)OR ELEVATED TEMP Last administered on 08/16/18 02:21; Admin Dose 650 MG; Start 08/09/18 at 23:30 Morphine Sulfate (morphine) 2 mg Q4H PRN IV SEVERE PAIN LEVEL 7-10 Last administered on 08/11/18 05:01; Admin Dose 2 MG; Start 08/09/18 at 23:30 Guaifenesin/ Codeine Phosphate (Robitussin Ac Liquid Cup) 10 ml Q4H PRN PO COUGH Last administered on 08/17/18 04:55; Admin Dose 10 ML; Start 08/09/18 at 23:30 Miscellaneous Information 1 ea NOTE XX ; Start 08/10/18 at 05:30 Glucose (Glutose) 15 gm Q15M PRN PO DECREASED GLUCOSE; Start 08/10/18 at 05:30 Glucose (Glutose) 22.5 gm Q15M PRN PO DECREASED GLUCOSE; Start 08/10/18 at 05:30 Dextrose (D50w Syringe) 25 ml Q15M PRN IV DECREASED GLUCOSE; Start 08/10/18 at 05:30 Dextrose (D50w Syringe) 50 ml Q15M PRN IV DECREASED GLUCOSE Last administered on 08/13/18 21:34; Admin Dose 50 ML; Start 08/10/18 at 05:30 Glucagon (Glucagen) 1 mg Q15M PRN IM DECREASED GLUCOSE; Start 08/10/18 at 05:30 Glucose (Glutose) 15 gm Q15M PRN BUCCAL DECREASED GLUCOSE Last administered on 08/14/18 19:18; Admin Dose 15 GM; Start 08/10/18 at 05:30 Insulin Aspart (Novolog Insulin Pen) NOVOLOG *MILD* ALGORI... AC MEALS AND BEDTIME SC Last administered on 08/17/18 12:18; Admin Dose 2 UNIT; Start 08/10/18 at 08:00 Diagnostic Test (Pha) (Accu-Chek) 1 ea 02 XX Last administered on 08/17/18 02:11; Admin Dose 1 EA; Start 08/11/18 at 02:00 Insulin Aspart (Novolog Insulin Pen) 10 unit WITH MEALS SC Last administered on 08/17/18 12:19; Admin Dose 10 UNIT; Start 08/11/18 at 08:00 Docusate Sodium (Colace) 100 mg DAILY PO Last administered on 08/17/18 08:40; Admin Dose 100 MG; Start 08/12/18 at 09:00 Tramadol HCl (Ultram) 50 mg Q12H PRN PO PAIN; Start 08/11/18 at 13:30 Diclofenac Sodium (Voltaren 1% Gel) 2 gm BID TP Last administered on 08/17/18 08:45; Admin Dose 2 GM; Start 08/11/18 at 21:00 Acetaminophen/ Hydrocodone Bitart ([place] (5/325)) 1 tab Q4H PRN PO MODERATE PAIN LEVEL 4-6 Last administered on 08/17/18 08:48; Admin Dose 1 TAB; Start 08/12/18 at 15:00 Isosorbide Dinitrate (Isordil) 10 mg TID PO Last administered on 08/15/18 20:18; Admin Dose 10 MG; Start 08/12/18 at 21:00 Lorazepam (Ativan) 1 mg Q6H PRN IV ANXIETY Last administered on 08/17/18 10:44; Admin Dose 1 MG; Start 08/12/18 at 22:30 Heparin Sodium (Porcine) (Heparin (1000 Units/ml)) 4,000 unit AFTER DIALYSIS CATHETER Last administered on 08/16/18 14:01; Admin Dose 4,700 UNIT; Start 08/13/18 at 16:30 Insulin Glargine (Lantus) 14 units DAILY@0800 SC Last administered on 08/17/18 07:35; Admin Dose 14 UNITS; Start 08/14/18 at 08:00 Senna (Senokot) 2 tab BID PRN PO CONSTIPATION Last administered on 08/16/18 16:58; Admin Dose 2 TAB; Start 08/14/18 at 12:00 Albuterol/ Ipratropium (Duoneb) 3 ml Q6H RESP THERAPY PRN HHN SHORTNESS OF BREATH; Start 08/15/18 at 11:00 Ondansetron HCl (Zofran Inj) 4 mg Q6H PRN IV NAUSEA AND/OR VOMITING; Start 08/15/18 at 11:00 Epoetin Bam-epbx (Retacrit (Esrd)) 4,000 unit TuThSa@1700 SC ; Start 08/17/18 at 17:00 Multivit/Ca Carb/ B Cmplx/FA/Prenat (Addie-Mikayla) 1 tab DAILY PO Last administered on 08/17/18 08:41; Admin Dose 1 TAB; Start 08/16/18 at 12:00 Hydrocortisone (Hydrocortisone 0.5% Cr) 1 applic BID PRN TOP ITCHING Last administered on 08/17/18 00:53; Admin Dose 1 APPLIC; Start 08/16/18 at 22:30 DARELL JAMES MD August 17, 2018 14:52
--- NOTE | 2018-08-17 15:24 | PN ---
Date/Time of Note Date/Time of Note DATE: 08/17/18 TIME: 15:19 Assessment/Plan VTE Prophylaxis Risk score (from Ns)>0 risk: 7 SCD applied (from Ns): Yes Pharmacological prophylaxis: heparin Lines/Catheters [facility] Urinary Cath still in place: No Assessment/Plan Hospital Course Patient is hemodynamic stable, afebrile, atrial fibrillation at controlled rate with occasional PVCs, Lantus is adjusted for better glycemic control continue pre-meal NovoLog . Assessment/Plan -Healthcare associated pneumonia, continue broad-spectrum antibiotics, Dr. Lucas is following in infection disease consultation. -Hyperkalemia -Dialysis dependent end-stage renal disease. Dr. Spicer is following in nephrology consultation. -Elevated troponin, Dr. William is following in cardiology consultation. -Atrial fibrillation, continue metoprolol and Eliquis. -Anemia of chronic disease, continue Epogen. -Diabetes mellitus type 2 with hemoglobin A1c of 6.5, continue Lantus and NovoLog -Peripheral vascular disease history of left lower extremity bypass surgery. -Right foot ulcer. Dr. Pineda is following and podiatry consultation. Disposition: to assisted living facility when symptoms resolve and cleared by consultants. Further recommendations based on clinical course. Plan of care discussed with Dr. Cordero. Result Diagram: 08/17/18 0955 08/17/18 0517 Results 24hrs Laboratory Tests Test 08/16/18 16:56 08/16/18 20:55 08/17/18 02:06 08/17/18 05:17 Bedside Glucose 155 142 228 H Sodium Level 138 Potassium Level 4.7 Chloride Level 98 Carbon Dioxide Level 25 Anion Gap 15 H Blood Urea Nitrogen 46 H Creatinine 5.56 H Est Glomerular 8 L Filtrat Rate mL/min Glucose Level 188 Calcium Level 8.9 Test 08/17/18 07:34 08/17/18 09:55 08/17/18 12:16 Bedside Glucose 248 H 191 Hemoglobin 10.1 L Exam/Review of Systems Exam Vitals Vital Signs Date Temp Pulse Resp B/P (MAP) Pulse Ox O2 O2 Flow FiO2 Time Delivery Rate 08/17/18 69 12:22 08/17/18 98.0 19 140/63 96 11:22 (88) 08/17/18 21 02:28 08/16/18 20:17 08/16/18 Room Air 15:20 Intake and Output 08/16/18 08/16/18 08/17/18 1515:00 23:00 07:00 IntakeIntake Total 1100 ml 500 ml OutputOutput Total 3400 ml BalanceBalance -3400 ml 1100 ml 500 ml Exam Constitutional: alert, oriented Respiratory: diminished breath sounds Cardiovascular: regular rate and rhythm Gastrointestinal: soft, non-tender Musculoskeletal: nl extremities to inspection Extremities: normal pulses, other (Right foot ulcer) Neurological: nl mental status Left chest hemodialysis catheter Results Results 24hrs Laboratory Tests Test 08/16/18 16:56 08/16/18 20:55 08/17/18 02:06 08/17/18 05:17 Bedside Glucose 155 142 228 H Sodium Level 138 Potassium Level 4.7 Chloride Level 98 Carbon Dioxide Level 25 Anion Gap 15 H Blood Urea Nitrogen 46 H Creatinine 5.56 H Est Glomerular 8 L Filtrat Rate mL/min Glucose Level 188 Calcium Level 8.9 Test 08/17/18 07:34 08/17/18 09:55 08/17/18 12:16 Bedside Glucose 248 H 191 Hemoglobin 10.1 L Medications Medication Current Medications Buspirone HCl (Buspar) 10 mg TID PO Last administered on 08/17/18 12:15; Admin Dose 10 MG; Start 08/10/18 at 09:00 Diltiazem HCl (Cardizem Cd) 120 mg DAILY PO Last administered on 08/16/18 08:21; Admin Dose 120 MG; Start 08/10/18 at 09:00 Furosemide (Lasix) 20 mg DAILY PO Last administered on 08/17/18 08:46; Admin Dose 20 MG; Start 08/10/18 at 09:00 Gabapentin (Neurontin) 300 mg TID PO Last administered on 08/17/18 12:15; Admin Dose 300 MG; Start 08/10/18 at 09:00 Metoprolol Tartrate (Lopressor) 25 mg BID PO Last administered on 08/17/18 08:42; Admin Dose 25 MG; Start 08/10/18 at 09:00 Pantoprazole (Protonix Tab) 40 mg AC BREAKFAST PO Last administered on 08/17/18 06:13; Admin Dose 40 MG; Start 08/10/18 at 07:00 Sevelamer Carbonate (Renvela) 1.6 gm WITH MEALS PO Last administered on 08/17/18 12:15; Admin Dose 1.6 GM; Start 08/10/18 at 08:00 Apixaban (Eliquis) 5 mg BID PO Last administered on 08/17/18 08:41; Admin Dose 5 MG; Start 08/10/18 at 09:00 Cefepime HCl 50 ml @ 100 mls/hr Q24H IVPB Last administered on 08/17/18 08:48; Admin Dose 100 MLS/HR; Start 08/10/18 at 09:00 Acetaminophen (Tylenol Tab) 650 mg Q6H PRN PO MILD PAIN(1-3)OR ELEVATED TEMP Last administered on 08/16/18 02:21; Admin Dose 650 MG; Start 08/09/18 at 23:30 Morphine Sulfate (morphine) 2 mg Q4H PRN IV SEVERE PAIN LEVEL 7-10 Last administered on 08/11/18 05:01; Admin Dose 2 MG; Start 08/09/18 at 23:30 Guaifenesin/ Codeine Phosphate (Robitussin Ac Liquid Cup) 10 ml Q4H PRN PO COUGH Last administered on 08/17/18at 04:55; Admin Dose 10 ML; Start 08/09/18 at 23:30 Miscellaneous Information 1 ea NOTE XX ; Start 08/10/18 at 05:30 Glucose (Glutose) 15 gm Q15M PRN PO DECREASED GLUCOSE; Start 08/10/18 at 05:30 Glucose (Glutose) 22.5 gm Q15M PRN PO DECREASED GLUCOSE; Start 08/10/18 at 05:30 Dextrose (D50w Syringe) 25 ml Q15M PRN IV DECREASED GLUCOSE; Start 08/10/18 at 05:30 Dextrose (D50w Syringe) 50 ml Q15M PRN IV DECREASED GLUCOSE Last administered on 08/13/18at 21:34; Admin Dose 50 ML; Start 08/10/18 at 05:30 Glucagon (Glucagen) 1 mg Q15M PRN IM DECREASED GLUCOSE; Start 08/10/18 at 05:30 Glucose (Glutose) 15 gm Q15M PRN BUCCAL DECREASED GLUCOSE Last administered on 08/14/18at 19:18; Admin Dose 15 GM; Start 08/10/18 at 05:30 Insulin Aspart (Novolog Insulin Pen) NOVOLOG *MILD* ALGORI... AC MEALS AND BEDTIME SC Last administered on 08/17/18 12:18; Admin Dose 2 UNIT; Start 08/10/18 at 08:00 Diagnostic Test (Pha) (Accu-Chek) 1 ea 02 XX Last administered on 08/17/18 02:11; Admin Dose 1 EA; Start 08/11/18 at 02:00 Insulin Aspart (Novolog Insulin Pen) 10 unit WITH MEALS SC Last administered on 08/17/18 12:19; Admin Dose 10 UNIT; Start 08/11/18 at 08:00 Docusate Sodium (Colace) 100 mg DAILY PO Last administered on 08/17/18 08:40; Admin Dose 100 MG; Start 08/12/18 at 09:00 Tramadol HCl (Ultram) 50 mg Q12H PRN PO PAIN; Start 08/11/18 at 13:30 Diclofenac Sodium (Voltaren 1% Gel) 2 gm BID TP Last administered on 08/17/18 08:45; Admin Dose 2 GM; Start 08/11/18 at 21:00 Acetaminophen/ Hydrocodone Bitart ([place] (5/325)) 1 tab Q4H PRN PO MODERATE PAIN LEVEL 4-6 Last administered on 08/17/18 08:48; Admin Dose 1 TAB; Start 08/12/18 at 15:00 Isosorbide Dinitrate (Isordil) 10 mg TID PO Last administered on 08/15/18 20:18; Admin Dose 10 MG; Start 08/12/18 at 21:00 Lorazepam (Ativan) 1 mg Q6H PRN IV ANXIETY Last administered on 08/17/18 10:44; Admin Dose 1 MG; Start 08/12/18 at 22:30 Heparin Sodium (Porcine) (Heparin (1000 Units/ml)) 4,000 unit AFTER DIALYSIS CATHETER Last administered on 08/16/18 14:01; Admin Dose 4,700 UNIT; Start 08/13/18 at 16:30 Insulin Glargine (Lantus) 14 units DAILY@0800 SC Last administered on 08/17/18 07:35; Admin Dose 14 UNITS; Start 08/14/18 at 08:00 Senna (Senokot) 2 tab BID PRN PO CONSTIPATION Last administered on 5/13/19at 16:58; Admin Dose 2 TAB; Start 08/14/18 at 12:00 Albuterol/ Ipratropium (Duoneb) 3 ml Q6H RESP THERAPY PRN HHN SHORTNESS OF BREATH; Start 08/15/18 at 11:00 Ondansetron HCl (Zofran Inj) 4 mg Q6H PRN IV NAUSEA AND/OR VOMITING; Start 08/15/18 at 11:00 Epoetin Bam-epbx (Retacrit (Esrd)) 4,000 unit TuThSa@1700 SC ; Start 08/17/18 at 17:00 Multivit/Ca Carb/ B Cmplx/FA/Prenat (Addie-Mikayla) 1 tab DAILY PO Last administered on 08/17/18at 08:41; Admin Dose 1 TAB; Start 08/16/18 at 12:00 Hydrocortisone (Hydrocortisone 0.5% Cr) 1 applic BID PRN TOP ITCHING Last administered on 08/17/18at 00:53; Admin Dose 1 APPLIC; Start 08/16/18 at 22:30 ANTHONY DUPREE August 17, 2018 15:24
[2018-08-17] MEDS: EPOETIN ALFA-EPBX (ESRD) 4,000 UNIT/ML VIAL SC SCH (16:43)
[2018-08-17] MEDS: HEPARIN 1000 UNITS/ML 10 ML INJ CATHETER SCH (22:11)
[2018-08-17] MEDS: SENNA TAB PO PRN (22:13)
[2018-08-17] MEDS: ZOLPIDEM 5 MG TAB PO PRN (22:13)
[2018-08-18] VITALS (21 sets, daily range): BP systolic 107–155; BP diastolic 35–86; PULSE 55–81; RESP 18–20
[2018-08-18] MEDS: ACCU-CHEK XX SCH (01:19)
[2018-08-18] MEDS: LORAZEPAM 2 MG INJ IV PRN (01:19)
[2018-08-18] MEDS: PANTOPRAZOLE (EC) 40 MG TAB PO SCH (06:02)
[2018-08-18] MEDS: GUAIFENESIN/CODEINE 5ML CUP PO PRN (06:02)
[2018-08-18] MEDS: HYDROCODONE/APAP (5/325) TAB PO PRN ×3 (06:02→14:06)
[2018-08-18] MEDS: INSULIN ASPART [NOVOLOG] 3 ML PEN SC SCH ×7 (07:51→21:00)
[2018-08-18] MEDS: SEVELAMER CARBONATE 0.8 GM PKT PO SCH ×3 (07:58→17:30)
[2018-08-18] MEDS: INSULIN GLARGINE [LANTus] (100 UNITS/ML) SYG SC SCH (08:03)
[2018-08-18] MEDS: DOCUSATE SODIUM 100 MG CAP PO SCH (08:23)
[2018-08-18] MEDS: CEFEPIME 1GM/50 ML (PMX) 50 ML IVPB SCH (08:23)
[2018-08-18] MEDS: GABAPENTIN 300 MG CAP PO SCH ×2 (08:24→13:04)
[2018-08-18] MEDS: DICLOFENAC SODIUM 1% GEL 100 GM TUBE TP SCH ×2 (08:24→21:00)
[2018-08-18] MEDS: BUSPIRONE 10 MG TAB PO SCH ×2 (08:24→13:06)
[2018-08-18] MEDS: APIXABAN 5 MG TABLET PO SCH (08:24)
[2018-08-18] MEDS: MULTIVIT/CA CARB/B CMPLX/FA TAB PO SCH (08:24)
[2018-08-18] MEDS: ISOSORBIDE DINITRATE 10 MG TAB PO SCH ×3 (08:26→13:11)
[2018-08-18] MEDS: FUROSEMIDE 20 MG TAB PO SCH (08:26)
[2018-08-18] MEDS: METOPROLOL 25 MG TAB PO SCH ×2 (08:26→21:00)
[2018-08-18] MEDS: DILTIAZEM (CD) 120 MG CAP PO SCH (08:26)
[2018-08-18] MEDS: SENNA TAB PO PRN (10:11)
--- NOTE | 2018-08-18 11:11 | PN ---
Date/Time of Note Date/Time of Note DATE: 08/18/18 TIME: 11:06 Assessment/Plan VTE Prophylaxis Risk score (from Ns)>0 risk: 6 SCD applied (from Ns): Yes Pharmacological prophylaxis: apixaban Lines/Catheters [facility] [place] Urinary Cath still in place: No Assessment/Plan Hospital Course Patient remains hemodynamically stable, denies fever, complains of constipation continue bowel regimen. Patient is continued on cefepime for pneumonia. Blood sugar is better controlled. Assessment/Plan -Healthcare associated pneumonia, continue broad-spectrum antibiotics, Dr. Lucas is following in infection disease consultation. -Hyperkalemia -Dialysis dependent end-stage renal disease. Dr. Spicer is following in nephrology consultation. -Elevated troponin likely type 2 demand infarct in the setting of pneumonia, pt declined Stress test. Dr. William is following in cardiology consultation. -Atrial fibrillation, continue metoprolol and Eliquis. -Anemia of chronic disease, continue Epogen. -Diabetes mellitus type 2 with hemoglobin A1c of 6.5, continue Lantus and NovoLog -Peripheral vascular disease history of left lower extremity bypass surgery. -Right foot ulcer. Dr. Pineda is following and podiatry consultation. Disposition: to assisted living facility when symptoms resolve and cleared by consultants. Further recommendations based on clinical course. Plan of care discussed with Dr. Cordero. Result Diagram: 08/17/18 0955 08/17/18 0517 Results 24hrs Laboratory Tests Test 08/17/18 12:16 08/17/18 17:21 08/17/18 19:57 08/18/18 07:31 Bedside Glucose 191 205 108 198 Test 08/18/18 08:18 Procalcitonin 0.61 H Exam/Review of Systems Exam Vitals Vital Signs Date Temp Pulse Resp B/P (MAP) Pulse Ox O2 O2 Flow FiO2 Time Delivery Rate 08/18/18 81 08:04 08/18/18 98.3 20 141/86 96 07:45 (104) 08/18/18 Room Air 04:13 08/17/18 21 02:28 08/16/18 20:17 Intake and Output 08/17/18 08/17/18 08/18/18 1515:00 23:00 07:00 IntakeIntake Total 50 ml 1300 ml 500 ml OutputOutput Total 3400 ml 3001 ml BalanceBalance 50 ml -2100 ml -2501 ml Exam Constitutional: alert, oriented Respiratory: diminished breath sounds Cardiovascular: regular rate and rhythm Gastrointestinal: soft, non-tender Musculoskeletal: nl extremities to inspection Extremities: normal pulses, other (Right foot ulcer) Neurological: nl mental status Left chest hemodialysis catheter Results Results 24hrs Laboratory Tests Test 08/17/18 12:16 08/17/18 17:21 08/17/18 19:57 08/18/18 07:31 Bedside Glucose 191 205 108 198 Test 08/18/18 08:18 Procalcitonin 0.61 H Medications Medication Current Medications Buspirone HCl (Buspar) 10 mg TID PO Last administered on 08/18/18 08:24; Admin Dose 10 MG; Start 08/10/18 at 09:00 Diltiazem HCl (Cardizem Cd) 120 mg DAILY PO Last administered on 08/18/18 08:26; Admin Dose 120 MG; Start 08/10/18 at 09:00 Furosemide (Lasix) 20 mg DAILY PO Last administered on 08/18/18 08:26; Admin Dose 20 MG; Start 08/10/18 at 09:00 Gabapentin (Neurontin) 300 mg TID PO Last administered on 08/18/18 08:24; Admin Dose 300 MG; Start 08/10/18 at 09:00 Metoprolol Tartrate (Lopressor) 25 mg BID PO Last administered on 08/18/18 08:26; Admin Dose 25 MG; Start 08/10/18 at 09:00 Pantoprazole (Protonix Tab) 40 mg AC BREAKFAST PO Last administered on 9at 06:02; Admin Dose 40 MG; Start 08/10/18 at 07:00 Sevelamer Carbonate (Renvela) 1.6 gm WITH MEALS PO Last administered on 08/18/18 07:58; Admin Dose 1.6 GM; Start 08/10/18 at 08:00 Apixaban (Eliquis) 5 mg BID PO Last administered on 08/18/18 08:24; Admin Dose 5 MG; Start 08/10/18 at 09:00 Cefepime HCl 50 ml @ 100 mls/hr Q24H IVPB Last administered on 08/18/18 08:23; Admin Dose 100 MLS/HR; Start 08/10/18 at 09:00 Acetaminophen (Tylenol Tab) 650 mg Q6H PRN PO MILD PAIN(1-3)OR ELEVATED TEMP Last administered on 08/16/18 02:21; Admin Dose 650 MG; Start 08/09/18 at 23:30 Morphine Sulfate (morphine) 2 mg Q4H PRN IV SEVERE PAIN LEVEL 7-10 Last administered on 08/11/18 05:01; Admin Dose 2 MG; Start 08/09/18 at 23:30 Guaifenesin/ Codeine Phosphate (Robitussin Ac Liquid Cup) 10 ml Q4H PRN PO COUGH Last administered on 08/18/18 06:02; Admin Dose 10 ML; Start 08/09/18 at 23:30 Miscellaneous Information 1 ea NOTE XX ; Start 08/10/18 at 05:30 Glucose (Glutose) 15 gm Q15M PRN PO DECREASED GLUCOSE; Start 08/10/18 at 05:30 Glucose (Glutose) 22.5 gm Q15M PRN PO DECREASED GLUCOSE; Start 08/10/18 at 05:30 Dextrose (D50w Syringe) 25 ml Q15M PRN IV DECREASED GLUCOSE; Start 08/10/18 at 05:30 Dextrose (D50w Syringe) 50 ml Q15M PRN IV DECREASED GLUCOSE Last administered on 08/13/18at 21:34; Admin Dose 50 ML; Start 08/10/18 at 05:30 Glucagon (Glucagen) 1 mg Q15M PRN IM DECREASED GLUCOSE; Start 08/10/18 at 05:30 Glucose (Glutose) 15 gm Q15M PRN BUCCAL DECREASED GLUCOSE Last administered on 08/14/18at 19:18; Admin Dose 15 GM; Start 08/10/18 at 05:30 Insulin Aspart (Novolog Insulin Pen) NOVOLOG *MILD* ALGORI... AC MEALS AND BEDTIME SC Last administered on 08/18/18 07:51; Admin Dose 2 UNIT; Start 08/10/18 at 08:00 Diagnostic Test (Pha) (Accu-Chek) 1 ea 02 XX Last administered on 08/17/18at 0 2:11; Admin Dose 1 EA; Start 08/11/18 at 02:00 Insulin Aspart (Novolog Insulin Pen) 10 unit WITH MEALS SC Last administered on 08/18/18 07:55; Admin Dose 10 UNIT; Start 08/11/18 at 08:00 Docusate Sodium (Colace) 100 mg DAILY PO Last administered on 08/18/18 08:23; Admin Dose 100 MG; Start 08/12/18 at 09:00 Tramadol HCl (Ultram) 50 mg Q12H PRN PO PAIN; Start 08/11/18 at 13:30 Diclofenac Sodium (Voltaren 1% Gel) 2 gm BID TP Last administered on 08/18/18 08:24; Admin Dose 2 GM; Start 08/11/18 at 21:00 Acetaminophen/ Hydrocodone Bitart ([place] (5/325)) 1 tab Q4H PRN PO MODERATE PAIN LEVEL 4-6 Last administered on 08/18/18 10:11; Admin Dose 1 TAB; Start 08/12/18 at 15:00 Isosorbide Dinitrate (Isordil) 10 mg TID PO Last administered on 08/18/18 08:26; Admin Dose 10 MG; Start 08/12/18 at 21:00 Lorazepam (Ativan) 1 mg Q6H PRN IV ANXIETY Last administered on 08/18/18 01:19; Admin Dose 1 MG; Start 08/12/18 at 22:30 Heparin Sodium (Porcine) (Heparin (1000 Units/ml)) 4,000 unit AFTER DIALYSIS CATHETER Last administered on 08/17/18 22:11; Admin Dose 2,400 UNIT; Start 08/13/18 at 16:30 Senna (Senokot) 2 tab BID PRN PO CONSTIPATION Last administered on 08/18/18 10:11; Admin Dose 2 TAB; Start 08/14/18 at 12:00 Albuterol/ Ipratropium (Duoneb) 3 ml Q6H RESP THERAPY PRN HHN SHORTNESS OF BREATH; Start 08/15/18 at 11:00 Ondansetron HCl (Zofran Inj) 4 mg Q6H PRN IV NAUSEA AND/OR VOMITING; Start 08/15/18 at 11:00 Epoetin Bam-epbx (Retacrit (Esrd)) 4,000 unit TuThSa@1700 SC Last administered on 08/17/18 16:43; Admin Dose 4,000 UNIT; Start 08/17/18 at 17:00 Multivit/Ca Carb/ B Cmplx/FA/Prenat (Addie-Mikayla) 1 tab DAILY PO Last administered on 08/18/18 08:24; Admin Dose 1 TAB; Start 08/16/18 at 12:00 Hydrocortisone (Hydrocortisone 0.5% Cr) 1 applic BID PRN TOP ITCHING Last administered on 08/17/18 00:53; Admin Dose 1 APPLIC; Start 08/16/18 at 22:30 Insulin Glargine (Lantus) 18 units DAILY@0800 SC Last administered on 08/18/18 08:03; Admin Dose 18 UNITS; Start 08/18/18 at 08:00 Zolpidem Tartrate (Ambien) 5 mg HS PRN PO INSOMNIA Last administered on 08/17/18 22:13; Admin Dose 5 MG; Start 08/17/18 at 21:30 ANTHONY DUPREE August 18, 2018 11:11
--- NOTE | 2018-08-18 11:45 | CONS ---
Assessment/Plan Assessment/Plan Assessment/Plan (Daily) ssessment/Plan 58-year-old female who presented with: 1. Shortness of breath, cough, with fevers, likely secondary to pneumonia; however, might have some underlying fluid overload. 2. Hyperkalemia. Not sure about patient's compliance; however, the patient had been going to his dialysis center. 3. Elevated troponin. Patient has history of end-stage renal disease.? ACS 4. History of peripheral vascular disease. 5. End-stage renal disease, Thursday, , Thursday. 6. Anemia, likely anemia of chronic disease. 7. Peripheral vascular disease status post bypass of the left lower extremity. 8. Right foot ulcer with infection at the site of recent debridement. Cultures grew MSSA and Enterococcus. 9. History of central stenosis with apparent revascularization. 10. Status post placement of left IJ Permcath 06/2017. Plan - HD MWF, s/p UF yesterday with removal of 3.5 L, Next HD schedule today patient intake is 1.8 L -Spoke to the patient she needs to be on a strict fluid restriction -Change Lasix to 80 twice daily - cw renavite - pain meds per primary - renally dose all meds - stripping cutter and winder bp/blood draws in left upper ext Consultation Date/Type/Reason Admit Date/Time August 09, 2018 at 17:42 Initial Consult Date 08/10/18 Requesting Provider: KIRSTIN SPANN MD Date/Time of Note DATE: 08/18/18 TIME: 11:43 24 HR Interval Summary Free Text/Dictation Intake was 1.8 L HD removed with 3.5 Complaining of swelling in lower extremities Exam/Review of Systems Exam Vitals Vital Signs Date Temp Pulse Resp B/P (MAP) Pulse Ox O2 O2 Flow FiO2 Time Delivery Rate 08/18/18 81 08:04 08/18/18 98.3 20 141/86 96 07:45 (104) 08/18/18 Room Air 04:13 08/17/18 21 02:28 08/16/18 20:17 Intake and Output 08/17/18 08/17/18 08/18/18 1515:00 23:00 07:00 IntakeIntake Total 50 ml 1300 ml 500 ml OutputOutput Total 3400 ml 3001 ml BalanceBalance 50 ml -2100 ml -2501 ml Exam GENERAL: The patient is awake, alert, oriented, does not appear to be in any acute distress. HEENT: Pupils equal, round, reactive to light. NECK: Supple, no JVD. HEART: Regular rate and rhythm. LUNGS: Diffuse bilateral rhonchi and some crackles appreciated, especially on the left base. ABDOMEN: Soft, nontender, nondistended, positive normoactive bowel sounds. EXTREMITIES: The patient has a left Perm-A-Cath in place. The patient has a left upper extremity fistula with a bruit/thrill. Patient has a right leg diabetic ulcer, status post amputation of the right first toe. ble edema Results Result Diagram: 08/17/18 0955 08/17/18 0517 Results 24hrs Laboratory Tests Test 08/17/18 12:16 08/17/18 17:21 08/17/18 19:57 08/18/18 07:31 Bedside Glucose 191 205 108 198 Test 08/18/18 08:18 Procalcitonin 0.61 H Medications Medication Current Medications Buspirone HCl (Buspar) 10 mg TID PO Last administered on 08/18/18 08:24; Admin Dose 10 MG; Start 08/10/18 at 09:00 Diltiazem HCl (Cardizem Cd) 120 mg DAILY PO Last administered on 08/18/18 08:26; Admin Dose 120 MG; Start 08/10/18 at 09:00 Furosemide (Lasix) 20 mg DAILY PO Last administered on 08/18/18 08:26; Admin Dose 20 MG; Start 08/10/18 at 09:00 Gabapentin (Neurontin) 300 mg TID PO Last administered on 08/18/18 08:24; Admin Dose 300 MG; Start 08/10/18 at 09:00 Metoprolol Tartrate (Lopressor) 25 mg BID PO Last administered on 08/18/18 08:26; Admin Dose 25 MG; Start 08/10/18 at 09:00 Pantoprazole (Protonix Tab) 40 mg AC BREAKFAST PO Last administered on 08/18/18 06:02; Admin Dose 40 MG; Start 08/10/18 at 07:00 Sevelamer Carbonate (Renvela) 1.6 gm WITH MEALS PO Last administered on 08/18/18 07:58; Admin Dose 1.6 GM; Start 08/10/18 at 08:00 Apixaban (Eliquis) 5 mg BID PO Last administered on 08/18/18 08:24; Admin Dose 5 MG; Start 08/10/18 at 09:00 Cefepime HCl 50 ml @ 100 mls/hr Q24H IVPB Last administered on 08/18/18 08 :23; Admin Dose 100 MLS/HR; Start 08/10/18 at 09:00 Acetaminophen (Tylenol Tab) 650 mg Q6H PRN PO MILD PAIN(1-3)OR ELEVATED TEMP Last administered on 08/16/18 02:21; Admin Dose 650 MG; Start 08/09/18 at 23:30 Morphine Sulfate (morphine) 2 mg Q4H PRN IV SEVERE PAIN LEVEL 7-10 Last administered on 08/11/18 05:01; Admin Dose 2 MG; Start 08/09/18 at 23:30 Guaifenesin/ Codeine Phosphate (Robitussin Ac Liquid Cup) 10 ml Q4H PRN PO COUGH Last administered on 08/18/18 06:02; Admin Dose 10 ML; Start 08/09/18 at 23:30 Miscellaneous Information 1 ea NOTE XX ; Start 08/10/18 at 05:30 Glucose (Glutose) 15 gm Q15M PRN PO DECREASED GLUCOSE; Start 08/10/18 at 05:30 Glucose (Glutose) 22.5 gm Q15M PRN PO DECREASED GLUCOSE; Start 08/10/18 at 05:30 Dextrose (D50w Syringe) 25 ml Q15M PRN IV DECREASED GLUCOSE; Start 08/10/18 at 05:30 Dextrose (D50w Syringe) 50 ml Q15M PRN IV DECREASED GLUCOSE Last administered on 08/13/18 21:34; Admin Dose 50 ML; Start 08/10/18 at 05:30 Glucagon (Glucagen) 1 mg Q15M PRN IM DECREASED GLUCOSE; Start 08/10/18 at 05:30 Glucose (Glutose) 15 gm Q15M PRN BUCCAL DECREASED GLUCOSE Last administered on 08/14/18 19:18; Admin Dose 15 GM; Start 08/10/18 at 05:30 Insulin Aspart (Novolog Insulin Pen) NOVOLOG *MILD* ALGORI... AC MEALS AND BEDTIME SC Last administered on 08/18/18 07:51; Admin Dose 2 UNIT; Start 08/10/18 at 08:00 Diagnostic Test (Pha) (Accu-Chek) 1 ea 02 XX Last administered on 08/17/18 02:11; Admin Dose 1 EA; Start 08/11/18 at 02:00 Insulin Aspart (Novolog Insulin Pen) 10 unit WITH MEALS SC Last administered on 08/18/18 07:55; Admin Dose 10 UNIT; Start 08/11/18 at 08:00 Docusate Sodium (Colace) 100 mg DAILY PO Last administered on 08/18/18 08:23; Admin Dose 100 MG; Start 08/12/18 at 09:00 Tramadol HCl (Ultram) 50 mg Q12H PRN PO PAIN; Start 08/11/18 at 13:30 Diclofenac Sodium (Voltaren 1% Gel) 2 gm BID TP Last administered on 08/18/18 08:24; Admin Dose 2 GM; Start 08/11/18 at 21:00 Acetaminophen/ Hydrocodone Bitart ([place] (5/325)) 1 tab Q4H PRN PO MODERATE PAIN LEVEL 4-6 Last administered on 08/18/18 10:11; Admin Dose 1 TAB; Start 08/12/18 at 15:00 Isosorbide Dinitrate (Isordil) 10 mg TID PO Last administered on 08/18/18 08:26; Admin Dose 10 MG; Start 08/12/18 at 21:00 Lorazepam (Ativan) 1 mg Q6H PRN IV ANXIETY Last administered on 08/18/18 01:19; Admin Dose 1 MG; Start 08/12/18 at 22:30 Heparin Sodium (Porcine) (Heparin (1000 Units/ml)) 4,000 unit AFTER DIALYSIS CATHETER Last administered on 08/17/18 22:11; Admin Dose 2,400 UNIT; Start 08/13/18 at 16:30 Senna (Senokot) 2 tab BID PRN PO CONSTIPATION Last administered on 08/18/18 10:11; Admin Dose 2 TAB; Start 08/14/18 at 12:00 Albuterol/ Ipratropium (Duoneb) 3 ml Q6H RESP THERAPY PRN HHN SHORTNESS OF BREATH; Start 08/15/18 at 11:00 Ondansetron HCl (Zofran Inj) 4 mg Q6H PRN IV NAUSEA AND/OR VOMITING; Start 08/15/18 at 11:00 Epoetin Bam-epbx (Retacrit (Esrd)) 4,000 unit TuThSa@1700 SC Last administered on 08/17/18 16:43; Admin Dose 4,000 UNIT; Start 08/17/18 at 17:00 Multivit/Ca Carb/ B Cmplx/FA/Prenat (Addie-Mikayla) 1 tab DAILY PO Last administered on 08/18/18 08:24; Admin Dose 1 TAB; Start 08/16/18 at 12:00 Hydrocortisone (Hydrocortisone 0.5% Cr) 1 applic BID PRN TOP ITCHING Last administered on 08/17/18 00:53; Admin Dose 1 APPLIC; Start 08/16/18 at 22:30 Insulin Glargine (Lantus) 18 units DAILY@0800 SC Last administered on 08/18/18 08:03; Admin Dose 18 UNITS; Start 08/18/18 at 08:00 Zolpidem Tartrate (Ambien) 5 mg HS PRN PO INSOMNIA Last administered on 08/17/18 22:13; Admin Dose 5 MG; Start 08/17/18 at 21:30 DARELL JAMES MD August 18, 2018 11:45
--- NOTE | 2018-08-18 13:50 | CONS ---
Assessment/Plan Assessment/Plan Hospital Course (Demo Recall) IMPRESSION: 1. Positive troponin, assess significance in the setting of renal failure, likely type 2 demand infarct in the setting of pneumonia. 2. Atrial fibrillation, rate controlled. 3. Abnormal electrocardiogram, assess for true acute coronary syndrome. 4. Hypertension, well controlled. 5. End-stage renal disease, on hemodialysis. 6. Nausea. 7. Left lower lobe pneumonia. 8. Peripheral arterial disease with nonhealing lower extremity ulcer. Recc: -Tele -Continue dilt/BB with rate controlled AF as patient will comply -Contineu eliquis -Continue nitrates as patient will comply -continue abx's -Patient resfused lexiscan to assess significance of positive troponin in the setting of renal failure -HD for volume removal -RX anxiety -Continue laxix now at 80 mg po bid with HD -Continue abx's and f/u cx data Consultation Date/Type/Reason Admit Date/Time August 09, 2018 at 17:42 Initial Consult Date 08/10/18 Type of Consult Cardiology Reason for Consultation positive troponin Requesting Provider: KIRSTIN SPANN MD Date/Time of Note DATE: 08/18/18 TIME: 13:47 Exam/Review of Systems Vital Signs Vitals Vital Signs Date Temp Pulse Resp B/P (MAP) Pulse Ox O2 O2 Flow FiO2 Time Delivery Rate 08/18/18 63 12:51 08/18/18 98.3 20 141/86 96 07:45 (104) 08/18/18 Room Air 04:13 08/17/18 21 02:28 08/16/18 20:17 Intake and Output 08/17/18 08/17/18 08/18/18 1515:00 23:00 07:00 IntakeIntake Total 50 ml 1300 ml 500 ml OutputOutput Total 3400 ml 3001 ml BalanceBalance 50 ml -2100 ml -2501 ml Exam Exam Review of Systems: CONSTITUTIONAL: No fevers, chills. PULMONARY: ongoing sob CARDIOVASCULAR: No chest pain/palpitations GASTROINTESTINAL: No nausea/vomiting. GENITOURINARY: No hematuria/dysuria. MUSCULOSKELETAL: No myagias/arthalgias. PSYCHIATRIC: The patient denies depression. NEUROLOGIC: No weakness Constitutional: alert, oriented Psych: no complaints Head: normocephalic ENMT: mucosa pink and moist Neck: supple, jvd (9-10 cm water) Respiratory: diminished breath sounds (at bases/B) Cardiovascular: regular rate and rhythm Gastrointestinal: soft, non-tender Musculoskeletal: muscle weakness (mild generalized) Extremities: pitting pedal edema (bilateral pitting edema) Labs Result Diagram: 08/17/18 0955 08/17/18 0517 Results 24hrs Laboratory Tests Test 08/17/18 17:21 08/17/18 19:57 08/18/18 07:31 08/18/18 08:18 Bedside Glucose 205 108 198 Procalcitonin 0.61 H Test 08/18/18 11:35 Bedside Glucose 223 H Medications Medications Current Medications Buspirone HCl (Buspar) 10 mg TID PO Last administered on 08/18/18 13:06; Admin Dose 10 MG; Start 08/10/18 at 09:00 Diltiazem HCl (Cardizem Cd) 120 mg DAILY PO Last administered on 08/18/18 08:26; Admin Dose 120 MG; Start 08/10/18 at 09:00 Gabapentin (Neurontin) 300 mg TID PO Last administered on 08/18/18 13:04; Admin Dose 300 MG; Start 08/10/18 at 09:00 Metoprolol Tartrate (Lopressor) 25 mg BID PO Last administered on 08/18/18 08:26; Admin Dose 25 MG; Start 08/10/18 at 09:00 Pantoprazole (Protonix Tab) 40 mg AC BREAKFAST PO Last administered on 08/18/18 06:02; Admin Dose 40 MG; Start 08/10/18 at 07:00 Sevelamer Carbonate (Renvela) 1.6 gm WITH MEALS PO Last administered on 08/18/18 11:51; Admin Dose 1.6 GM; Start 08/10/18 at 08:00 Apixaban (Eliquis) 5 mg BID PO Last administered on 08/18/18 08:24; Admin Dose 5 MG; Start 08/10/18 at 09:00 Cefepime HCl 50 ml @ 100 mls/hr Q24H IVPB Last administered on 08/18/18 08:23; Admin Dose 100 MLS/HR; Start 08/10/18 at 09:00 Acetaminophen (Tylenol Tab) 650 mg Q6H PRN PO MILD PAIN(1-3)OR ELEVATED TEMP Last administered on 08/16/18 02:21; Admin Dose 650 MG; Start 08/09/18 at 23:30 Morphine Sulfate (morphine) 2 mg Q4H PRN IV SEVERE PAIN LEVEL 7-10 Last administered on 08/11/18 05:01; Admin Dose 2 MG; Start 08/09/18 at 23:30 Guaifenesin/ Codeine Phosphate (Robitussin Ac Liquid Cup) 10 ml Q4H PRN PO COUGH Last administered on 08/18/18 06:02; Admin Dose 10 ML; Start 08/09/18 at 23:30 Miscellaneous Information 1 ea NOTE XX ; Start 08/10/18 at 05:30 Glucose (Glutose) 15 gm Q15M PRN PO DECREASED GLUCOSE; Start 08/10/18 at 05:30 Glucose (Glutose) 22.5 gm Q15M PRN PO DECREASED GLUCOSE; Start 08/10/18 at 05:30 Dextrose (D50w Syringe) 25 ml Q15M PRN IV DECREASED GLUCOSE; Start 08/10/18 at 05:30 Dextrose (D50w Syringe) 50 ml Q15M PRN IV DECREASED GLUCOSE Last administered on 08/13/18 21:34; Admin Dose 50 ML; Start 08/10/18 at 05:30 Glucagon (Glucagen) 1 mg Q15M PRN IM DECREASED GLUCOSE; Start 08/10/18 at 05:30 Glucose (Glutose) 15 gm Q15M PRN BUCCAL DECREASED GLUCOSE Last administered on 08/14/18 19:18; Admin Dose 15 GM; Start 08/10/18 at 05:30 Insulin Aspart (Novolog Insulin Pen) NOVOLOG *MILD* ALGORI... AC MEALS AND BEDTIME SC Last administered on 08/18/18 11:46; Admin Dose 3 UNIT; Start 08/10/18 at 08:00 Diagnostic Test (Pha) (Accu-Chek) 1 ea 02 XX Last administered on 08/17/18 02:11; Admin Dose 1 EA; Start 08/11/18 at 02:00 Insulin Aspart (Novolog Insulin Pen) 10 unit WITH MEALS SC Last administered on 08/18/18 11:47; Admin Dose 10 UNIT; Start 08/11/18 at 08:00 Docusate Sodium (Colace) 100 mg DAILY PO Last administered on 08/18/18 08:23; Admin Dose 100 MG; Start 08/12/18 at 09:00 Tramadol HCl (Ultram) 50 mg Q12H PRN PO PAIN; Start 08/11/18 at 13:30 Diclofenac Sodium (Voltaren 1% Gel) 2 gm BID TP Last administered on 08/18/18 08:24; Admin Dose 2 GM; Start 08/11/18 at 21:00 Acetaminophen/ Hydrocodone Bitart ([place] (5/325)) 1 tab Q4H PRN PO MODERATE ALICE N LEVEL 4-6 Last administered on 08/18/18 10:11; Admin Dose 1 TAB; Start 08/12/18 at 15:00 Isosorbide Dinitrate (Isordil) 10 mg TID PO Last administered on 08/18/18 13:11; Admin Dose 10 MG; Start 08/12/18 at 21:00 Lorazepam (Ativan) 1 mg Q6H PRN IV ANXIETY Last administered on 08/18/18 01:19; Admin Dose 1 MG; Start 08/12/18 at 22:30 Heparin Sodium (Porcine) (Heparin (1000 Units/ml)) 4,000 unit AFTER DIALYSIS CATHETER Last administered on 08/17/18 22:11; Admin Dose 2,400 UNIT; Start 08/13/18 at 16:30 Senna (Senokot) 2 tab BID PRN PO CONSTIPATION Last administered on 08/18/18 10:11; Admin Dose 2 TAB; Start 08/14/18 at 12:00 Albuterol/ Ipratropium (Duoneb) 3 ml Q6H RESP THERAPY PRN HHN SHORTNESS OF BREATH; Start 08/15/18 at 11:00 Ondansetron HCl (Zofran Inj) 4 mg Q6H PRN IV NAUSEA AND/OR VOMITING; Start 08/15/18 at 11:00 Epoetin Bam-epbx (Retacrit (Esrd)) 4,000 unit TuThSa@1700 SC Last administered on 08/17/18 16:43; Admin Dose 4,000 UNIT; Start 08/17/18 at 17:00 Multivit/Ca Carb/ B Cmplx/FA/Prenat (Addie-Mikayla) 1 tab DAILY PO Last administered on 5/15/19at 08:24; Admin Dose 1 TAB; Start 08/16/18 at 12:00 Hydrocortisone (Hydrocortisone 0.5% Cr) 1 applic BID PRN TOP ITCHING Last administered on 08/17/18at 00:53; Admin Dose 1 APPLIC; Start 08/16/18 at 22:30 Insulin Glargine (Lantus) 18 units DAILY@0800 SC Last administered on 08/18/18at 08:03; Admin Dose 18 UNITS; Start 08/18/18 at 08:00 Zolpidem Tartrate (Ambien) 5 mg HS PRN PO INSOMNIA Last administered on 08/17/18at 22:13; Admin Dose 5 MG; Start 08/17/18 at 21:30 Furosemide (Lasix) 80 mg BID DIURETICS PO ; Start 08/18/18 at 18:00 GERTRUDIS GUILLERMO August 18, 2018 13:50
[2018-08-18] MEDS: HYDROCORTISONE 0.5% 28.35 GM CR TOP PRN (15:54)
--- NOTE | 2018-08-18 16:19 | CONS ---
Assessment/Plan Assessment/Plan Hospital Course (Demo Recall) - S/p sepsis d/t HCAP - fever and tachycardia resolved - HCAP - slowly improving - Likely underlying fluid overload - ESRD on HD T-T-S - Hyperkalemia - Elevated troponin - H/o non-healing diabetic R foot ulceration with infection at site of recent debridement; cultures grew MSSA and Enterococcus (ESR 93) - S/p excisional sharp debridement of the right first toe involving skin and subcutaneous tissue on 06/11/2017 - Evidence of osteomyelitis at the remnant of the first distal phalanx per MRI R foot 06/24/2017 - DM with hypoglycemic episode - Hgb A1c 6.5% - Diabetic neuropathy - H/o diabetic foot infections/OM of b/l feet, s/p amputation of R two toes - H/o central stenosis with apparent recent re-vascularization - S/p placement of L IJ HD catheter 06/20/2017 - PVD - H/o LLE bypass - CHF and CAD - Anemia of chronic kidney disease - Morbid obesity - BMI 39.9 - H/o dysphagia, Group A pharyngitis screen was negative - H/o mildly dilated esophagus on CT (11/2016) and multiple distal erosive lesions in the distal esophagus per EGD (11/27/2016; path negative) - 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 Pt's sinuses are non-TTP. 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 Consultation Date/Type/Reason Admit Date/Time August 09, 2018 at 17:42 Initial Consult Date Type of Consult id Requesting Provider: KIRSTIN SPANN MD Date/Time of Note DATE: 08/18/18 TIME: 16:12 24 HR Interval Summary Free Text/Dictation patient still c/o feeling wheezy and tight. Exam/Review of Systems Exam Vitals Vital Signs Date Temp Pulse Resp B/P (MAP) Pulse Ox O2 O2 Flow FiO2 Time Delivery Rate 08/18/18 78 16:11 08/18/18 98.3 20 118/68 92 15:17 (85) 08/18/18 Room Air 04:13 08/17/18 21 02:28 08/16/18 20:17 Intake and Output 08/17/18 08/17/18 08/18/18 1515:00 23:00 07:00 IntakeIntake Total 50 ml 1300 ml 500 ml OutputOutput Total 3400 ml 3001 ml BalanceBalance 50 ml -2100 ml -2501 ml Constitutional: alert, oriented, well developed Psych: no complaints, nl mood/affect Head: normocephalic, atraumatic Eyes: nl conjunctiva, EOMI, nl lids, nl sclera, PERRL ENMT: nl external ears & nose, nl lips & teeth, nl nasal mucosa & septum Respiratory: congested cough, crackles/rales Cardiovascular: regular rate and rhythm Gastrointestinal: soft Musculoskeletal: nl extremities to inspection Extremities: normal pulses Neurological: TMR TEACHER II-XII intact Results Result Diagram: 08/17/18 0955 08/17/18 0517 Results 24hrs Laboratory Tests Test 08/17/18 17:21 08/17/18 19:57 08/18/18 07:31 08/18/18 08:18 Bedside Glucose 205 108 198 Procalcitonin 0.61 H Test 08/18/18 11:35 Bedside Glucose 223 H Medications Medication Current Medications Buspirone HCl (Buspar) 10 mg TID PO Last administered on 08/18/18 13:06; Admin Dose 10 MG; Start 08/10/18 at 09:00 Diltiazem HCl (Cardizem Cd) 120 mg DAILY PO Last administered on 08/18/18at 0 8:26; Admin Dose 120 MG; Start 08/10/18 at 09:00 Gabapentin (Neurontin) 300 mg TID PO Last administered on 08/18/18 13:04; Admin Dose 300 MG; Start 08/10/18 at 09:00 Metoprolol Tartrate (Lopressor) 25 mg BID PO Last administered on 08/18/18 08:26; Admin Dose 25 MG; Start 08/10/18 at 09:00 Pantoprazole (Protonix Tab) 40 mg AC BREAKFAST PO Last administered on 08/18/18 06:02; Admin Dose 40 MG; Start 08/10/18 at 07:00 Sevelamer Carbonate (Renvela) 1.6 gm WITH MEALS PO Last administered on 08/18 11:51; Admin Dose 1.6 GM; Start 08/10/18 at 08:00 Apixaban (Eliquis) 5 mg BID PO Last administered on 08/18/18 08:24; Admin Dose 5 MG; Start 08/10/18 at 09:00 Cefepime HCl 50 ml @ 100 mls/hr Q24H IVPB Last administered on 08/18/18 08:23; Admin Dose 100 MLS/HR; Start 08/10/18 at 09:00 Acetaminophen (Tylenol Tab) 650 mg Q6H PRN PO MILD PAIN(1-3)OR ELEVATED TEMP Last administered on 08/16/18 02:21; Admin Dose 650 MG; Start 08/09/18 at 23:30 Morphine Sulfate (morphine) 2 mg Q4H PRN IV SEVERE PAIN LEVEL 7-10 Last administered on 08/11/18 05:01; Admin Dose 2 MG; Start 08/09/18 at 23:30 Guaifenesin/ Codeine Phosphate (Robitussin Ac Liquid Cup) 10 ml Q4H PRN PO COUGH Last administered on 08/18/18 06:02; Admin Dose 10 ML; Start 08/09/18 at 23:30 Miscellaneous Information 1 ea NOTE XX ; Start 08/10/18 at 05:30 Glucose (Glutose) 15 gm Q15M PRN PO DECREASED GLUCOSE; Start 08/10/18 at 05:30 Glucose (Glutose) 22.5 gm Q15M PRN PO DECREASED GLUCOSE; Start 08/10/18 at 05:30 Dextrose (D50w Syringe) 25 ml Q15M PRN IV DECREASED GLUCOSE; Start 08/10/18 at 05:30 Dextrose (D50w Syringe) 50 ml Q15M PRN IV DECREASED GLUCOSE Last administered on 08/13/18 21:34; Admin Dose 50 ML; Start 08/10/18 at 05:30 Glucagon (Glucagen) 1 mg Q15M PRN IM DECREASED GLUCOSE; Start 08/10/18 at 05:30 Glucose (Glutose) 15 gm Q15M PRN BUCCAL DECREASED GLUCOSE Last administered on 08/14/18 19:18; Admin Dose 15 GM; Start 08/10/18 at 05:30 Insulin Aspart (Novolog Insulin Pen) NOVOLOG *MILD* ALGORI... AC MEALS AND BEDTIME SC Last administered on 08/18/18 11:46; Admin Dose 3 UNIT; Start 08/10/18 at 08:00 Diagnostic Test (Pha) (Accu-Chek) 1 ea 02 XX Last administered on 08/17/18 02:11; Admin Dose 1 EA; Start 08/11/18 at 02:00 Insulin Aspart (Novolog Insulin Pen) 10 unit WITH MEALS SC Last administered on 08/18/18 11:47; Admin Dose 10 UNIT; Start 08/11/18 at 08:00 Docusate Sodium (Colace) 100 mg DAILY PO Last administered on 08/18/18 08:23; Admin Dose 100 MG; Start 08/12/18 at 09:00 Tramadol HCl (Ultram) 50 mg Q12H PRN PO PAIN; Start 08/11/18 at 13:30 Diclofenac Sodium (Voltaren 1% Gel) 2 gm BID TP Last administered on 08/18/18 08:24; Admin Dose 2 GM; Start 08/11/18 at 21:00 Acetaminophen/ Hydrocodone Bitart ([place] (5/325)) 1 tab Q4H PRN PO MODERATE PAIN LEVEL 4-6 Last administered on 08/18/18 14:06; Admin Dose 1 TAB; Start 08/12/18 at 15:00 Isosorbide Dinitrate (Isordil) 10 mg TID PO Last administered on 08/18/18 13:11; Admin Dose 10 MG; Start 08/12/18 at 21:00 Lorazepam (Ativan) 1 mg Q6H PRN IV ANXIETY Last administered on 08/18/18 01:19; Admin Dose 1 MG; Start 08/12/18 at 22:30 Heparin Sodium (Porcine) (Heparin (1000 Units/ml)) 4,000 unit AFTER DIALYSIS CATHETER Last administered on 08/17/18 22:11; Admin Dose 2,400 UNIT; Start 08/13/18 at 16:30 Senna (Senokot) 2 tab BID PRN PO CONSTIPATION Last administered on 08/18/18 10:11; Admin Dose 2 TAB; Start 08/14/18 at 12:00 Albuterol/ Ipratropium (Duoneb) 3 ml Q6H RESP THERAPY PRN HHN SHORTNESS OF BREATH; Start 08/15/18 at 11:00 Ondansetron HCl (Zofran Inj) 4 mg Q6H PRN IV NAUSEA AND/OR VOMITING; Start 08/15/18 at 11:00 Epoetin Bam-epbx (Retacrit (Esrd)) 4,000 unit TuThSa@1700 SC Last administered on 08/17/18at 16:43; Admin Dose 4,000 UNIT; Start 08/17/18 at 17:00 Multivit/Ca Carb/ B Cmplx/FA/Prenat (Addie-Mikayla) 1 tab DAILY PO Last administered on 08/18/18at 08:24; Admin Dose 1 TAB; Start 08/16/18 at 12:00 Hydrocortisone (Hydrocortisone 0.5% Cr) 1 applic BID PRN TOP ITCHING Last administered on 08/18/18at 15:54; Admin Dose 1 APPLIC; Start 08/16/18 at 22:30 Insulin Glargine (Lantus) 18 units DAILY@0800 SC Last administered on 08/18/18 08:03; Admin Dose 18 UNITS; Start 08/18/18 at 08:00 Zolpidem Tartrate (Ambien) 5 mg HS PRN PO INSOMNIA Last administered on 08/17/18at 22:13; Admin Dose 5 MG; Start 08/17/18 at 21:30 Furosemide (Lasix) 80 mg BID DIURETICS PO ; Start 08/18/18 at 18:00 BONITA RUBIO MD August 18, 2018 16:19
[2018-08-18] MEDS: ALBUTEROL/IPRATROPIUM (NEB) 3 ML AMP HHN PRN (17:06)
[2018-08-18] MEDS: FUROSEMIDE 40 MG TAB PO SCH (17:39)
[2018-08-18] MEDS ORDERED: FLUCONAZOLE 200 MG TAB PO ONE (21:30)
[2018-08-19] VITALS (13 sets, daily range): BP systolic 109–159; BP diastolic 46–77; PULSE 55–92; RESP 19–20
[2018-08-19] MEDS: LORAZEPAM 2 MG INJ IV PRN ×2 (00:03→18:48)
[2018-08-19] MEDS: ISOSORBIDE DINITRATE 10 MG TAB PO SCH ×4 (00:23→21:00)
[2018-08-19] MEDS: BUSPIRONE 10 MG TAB PO SCH ×4 (00:24→20:59)
[2018-08-19] MEDS: GABAPENTIN 300 MG CAP PO SCH ×4 (00:24→20:59)
[2018-08-19] MEDS: APIXABAN 5 MG TABLET PO SCH ×3 (00:25→21:01)
[2018-08-19] MEDS: ZOLPIDEM 5 MG TAB PO PRN (00:25)
[2018-08-19] MEDS: HEPARIN 1000 UNITS/ML 10 ML INJ CATHETER SCH (00:47)
[2018-08-19] MEDS: ACCU-CHEK XX SCH (02:00)
[2018-08-19] MEDS: GUAIFENESIN/CODEINE 5ML CUP PO PRN (04:20)
[2018-08-19] MEDS: PANTOPRAZOLE (EC) 40 MG TAB PO SCH (06:10)
[2018-08-19] MEDS: FUROSEMIDE 40 MG TAB PO SCH (06:11)
[2018-08-19] MEDS: INSULIN ASPART [NOVOLOG] 3 ML PEN SC SCH ×7 (06:35→21:04)
[2018-08-19] MEDS: SEVELAMER CARBONATE 0.8 GM PKT PO SCH ×3 (07:55→17:08)
[2018-08-19] MEDS: DOCUSATE SODIUM 100 MG CAP PO SCH (08:56)
[2018-08-19] MEDS: MULTIVIT/CA CARB/B CMPLX/FA TAB PO SCH (08:57)
[2018-08-19] MEDS: METOPROLOL 25 MG TAB PO SCH ×2 (08:57→21:00)
[2018-08-19] MEDS: CEFEPIME 1GM/50 ML (PMX) 50 ML IVPB SCH (08:57)
[2018-08-19] MEDS: DILTIAZEM (CD) 120 MG CAP PO SCH (08:58)
[2018-08-19] MEDS: DICLOFENAC SODIUM 1% GEL 100 GM TUBE TP SCH ×2 (09:02→21:02)
[2018-08-19] MEDS: HYDROCODONE/APAP (5/325) TAB PO PRN ×2 (11:20→17:08)
[2018-08-19] MEDS: INSULIN GLARGINE [LANTus] (100 UNITS/ML) SYG SC SCH (11:26)
[2018-08-19] MEDS: ALBUTEROL/IPRATROPIUM (NEB) 3 ML AMP HHN PRN (11:42)
--- NOTE | 2018-08-19 11:48 | CONS ---
Assessment/Plan Assessment/Plan Hospital Course (Demo Recall) IMPRESSION: 1. Positive troponin, assess significance in the setting of renal failure, likely type 2 demand infarct in the setting of pneumonia. 2. Atrial fibrillation, rate controlled. 3. Abnormal electrocardiogram, assess for true acute coronary syndrome. 4. Hypertension, well controlled. 5. End-stage renal disease, on hemodialysis. 6. Nausea. 7. Left lower lobe pneumonia. 8. Peripheral arterial disease with nonhealing lower extremity ulcer. Recc: -Tele -Continue dilt/BB with rate controlled AF as patient will comply -add hydralazine to improve BP -Contineu eliquis -Continue nitrates as patient will comply -continue abx's -Patient refused lexiscan to assess significance of positive troponin in the setting of renal failure -HD for volume removal -RX anxiety -Continue laxix now at 80 mg po bid with HD -Continue abx's and f/u cx data Consultation Date/Type/Reason Admit Date/Time August 09, 2018 at 17:42 Initial Consult Date 08/10/18 Type of Consult Cardiology Reason for Consultation positive troponin Requesting Provider: KIRSTIN SPANN MD Date/Time of Note DATE: 08/19/18 TIME: 11:44 Exam/Review of Systems Vital Signs Vitals Vital Signs Date Temp Pulse Resp B/P (MAP) Pulse Ox O2 O2 Flow FiO2 Time Delivery Rate 08/19/18 72 08:00 08/19/18 98.3 20 159/71 99 07:23 (100) 08/19/18 2.0 01:59 08/18/18 Room Air 21:30 08/18/18 36 18:03 Intake and Output 08/18/18 08/18/18 08/19/18 1515:00 23:00 07:00 IntakeIntake Total 360 ml 340 ml 400 ml OutputOutput Total 3901 ml BalanceBalance 360 ml 340 ml -3501 ml Exam Exam Review of Systems: CONSTITUTIONAL: No fevers, chills. PULMONARY: No sob CARDIOVASCULAR: No chest pain/palpitations GASTROINTESTINAL: No nausea/vomiting. GENITOURINARY: No hematuria/dysuria. MUSCULOSKELETAL: No myagias/arthalgias. PSYCHIATRIC: The patient denies depression. NEUROLOGIC: No weakness Constitutional: alert Psych: no complaints Head: normocephalic ENMT: mucosa pink and moist Neck: supple, jvd (9 cm water) Respiratory: diminished breath sounds (at bases/BV) Cardiovascular: regular rate and rhythm Gastrointestinal: soft, non-tender Musculoskeletal: muscle tone (normal) Extremities: edema (none) Neurological: other (No focal deficits) Labs Result Diagram: 08/19/18 0509 08/19/18 0509 Results 24hrs Laboratory Tests Test 08/18/18 17:26 08/18/18 20:29 08/19/18 05:09 08/19/18 06:29 Bedside Glucose 113 126 201 White Blood Count 5.6 # Red Blood Count 3.17 L Hemoglobin 10.6 L Hematocrit 34.3 L Mean Corpuscular 108.2 H Volume Mean Corpuscular 33.4 H Hemoglobin Mean Corpuscular 30.9 L Hemoglobin Concent Red Cell 17.3 H Distribution Width Platelet Count 277 Mean Platelet Volume 10.8 H Immature 1.100 H Granulocytes % Neutrophils % 69.7 Lymphocytes % 13.7 L Monocytes % 11.9 H Eosinophils % 3.2 Basophils % 0.4 Nucleated Red Blood 0.0 Cells % Immature 0.060 H Granulocytes # Neutrophils # 3.9 Lymphocytes # 0.8 Monocytes # 0.7 Eosinophils # 0.2 Basophils # 0.0 Nucleated Red Blood 0.0 Cells # Sodium Level 141 Potassium Level 4.8 Chloride Level 97 Carbon Dioxide Level 30 Anion Gap 14 H Blood Urea Nitrogen 47 H Creatinine 4.92 H Est Glomerular 9 L Filtrat Rate mL/min Glucose Level 146 # Calcium Level 9.7 Magnesium Level 2.3 Test 08/19/18 07:53 08/19/18 11:21 Bedside Glucose 116 175 Medications Medications Current Medications Buspirone HCl (Buspar) 10 mg TID PO Last administered on 08/19/18 08:57; Admin Dose 10 MG; Start 08/10/18 at 09:00 Diltiazem HCl (Cardizem Cd) 120 mg DAILY PO Last administered on 08/18/18 08:26; Admin Dose 120 MG; Start 08/10/18 at 09:00 Gabapentin (Neurontin) 300 mg TID PO Last administered on 08/19/18 08:57; Admin Dose 300 MG; Start 08/10/18 at 09:00 Metoprolol Tartrate (Lopressor) 25 mg BID PO Last administered on 5/16/19at 08:57; Admin Dose 25 MG; Start 08/10/18 at 09:00 Pantoprazole (Protonix Tab) 40 mg AC BREAKFAST PO Last administered on 08/19/18 06:10; Admin Dose 40 MG; Start 08/10/18 at 07:00 Sevelamer Carbonate (Renvela) 1.6 gm WITH MEALS PO Last administered on 08/19/18 11:22; Admin Dose 1.6 GM; Start 08/10/18 at 08:00 Apixaban (Eliquis) 5 mg BID PO Last administered on 08/19/18 08:57; Admin Dose 5 MG; Start 08/10/18 at 09:00 Cefepime HCl 50 ml @ 100 mls/hr Q24H IVPB Last administered on 08/19/18 08:57; Admin Dose 100 MLS/HR; Start 08/10/18 at 09:00 Acetaminophen (Tylenol Tab) 650 mg Q6H PRN PO MILD PAIN(1-3)OR ELEVATED TEMP Last administered on 08/16/18at 02:21; Admin Dose 650 MG; Start 08/09/18 at 23:30 Morphine Sulfate (morphine) 2 mg Q4H PRN IV SEVERE PAIN LEVEL 7-10 Last administered on 08/11/18 05:01; Admin Dose 2 MG; Start 08/09/18 at 23:30 Guaifenesin/ Codeine Phosphate (Robitussin Ac Liquid Cup) 10 ml Q4H PRN PO COUGH Last administered on 08/19/18at 04:20; Admin Dose 10 ML; Start 08/09/18 at 23:30 Miscellaneous Information 1 ea NOTE XX ; Start 08/10/18 at 05:30 Glucose (Glutose) 15 gm Q15M PRN PO DECREASED GLUCOSE; Start 08/10/18 at 05:30 Glucose (Glutose) 22.5 gm Q15M PRN PO DECREASED GLUCOSE; Start 08/10/18 at 05:30 Dextrose (D50w Syringe) 25 ml Q15M PRN IV DECREASED GLUCOSE; Start 08/10/18 at 05:30 Dextrose (D50w Syringe) 50 ml Q15M PRN IV DECREASED GLUCOSE Last administered on 08/13/18at 21:34; Admin Dose 50 ML; Start 08/10/18 at 05:30 Glucagon (Glucagen) 1 mg Q15M PRN IM DECREASED GLUCOSE; Start 08/10/18 at 05:30 Glucose (Glutose) 15 gm Q15M PRN BUCCAL DECREASED GLUCOSE Last administered on 08/14/18 19:18; Admin Dose 15 GM; Start 08/10/18 at 05:30 Insulin Aspart (Novolog Insulin Pen) NOVOLOG *MILD* ALGORI... AC MEALS AND BEDTIME SC Last administered on 08/19/18 11:33; Admin Dose 1 UNIT; Start 08/10/18 at 08:00 Diagnostic Test (Pha) (Accu-Chek) 1 ea 02 XX Last administered on 08/17/18 02:11; Admin Dose 1 EA; Start 08/11/18 at 02:00 Insulin Aspart (Novolog Insulin Pen) 10 unit WITH MEALS SC Last administered on 08/19/18 11:26; Admin Dose 10 UNIT; Start 08/11/18 at 08:00 Docusate Sodium (Colace) 100 mg DAILY PO Last administered on 08/19/18 08:56; Admin Dose 100 MG; Start 08/12/18 at 09:00 Tramadol HCl (Ultram) 50 mg Q12H PRN PO PAIN; Start 08/11/18 at 13:30 Diclofenac Sodium (Voltaren 1% Gel) 2 gm BID TP Last administered on 08/19/18 09:02; Admin Dose 2 GM; Start 08/11/18 at 21:00 Acetaminophen/ Hydrocodone Bitart ([place] (5/325)) 1 tab Q4H PRN PO MODERATE PAIN LEVEL 4-6 Last administered on 08/19/18 11:20; Admin Dose 1 TAB; Start 08/12/18 at 15:00 Isosorbide Dinitrate (Isordil) 10 mg TID PO Last administered on 08/19/18 00:23; Admin Dose 10 MG; Start 08/12/18 at 21:00 Lorazepam (Ativan) 1 mg Q6H PRN IV ANXIETY Last administered on 08/19/18 00:03; Admin Dose 1 MG; Start 08/12/18 at 22:30 Heparin Sodium (Porcine) (Heparin (1000 Units/ml)) 4,000 unit AFTER DIALYSIS CATHETER Last administered on 08/19/18 00:47; Admin Dose 2,300 UNIT; Start 08/13/18 at 16:30 Senna (Senokot) 2 tab BID PRN PO CONSTIPATION Last administered on 08/18/18 10:11; Admin Dose 2 TAB; Start 08/14/18 at 12:00 Albuterol/ Ipratropium (Duoneb) 3 ml Q6H RESP THERAPY PRN HHN SHORTNESS OF BREATH Last administered on 08/19/18 11:42; Admin Dose 3 ML; Start 08/15/18 at 11:00 Ondansetron HCl (Zofran Inj) 4 mg Q6H PRN IV NAUSEA AND/OR VOMITING; Start 08/15/18 at 11:00 Epoetin Bam-epbx (Retacrit (Esrd)) 4,000 unit TuThSa@1700 SC Last administered on 08/17/18 16:43; Admin Dose 4,000 UNIT; Start 08/17/18 at 17:00 Multivit/Ca Carb/ B Cmplx/FA/Prenat (Addie-Mikayla) 1 tab DAILY PO Last administered on 08/19/18 08:57; Admin Dose 1 TAB; Start 08/16/18 at 12:00 Hydrocortisone (Hydrocortisone 0.5% Cr) 1 applic BID PRN TOP ITCHING Last administered on 08/18/18 15:54; Admin Dose 1 APPLIC; Start 08/16/18 at 22:30 Insulin Glargine (Lantus) 18 units DAILY@0800 SC Last administered on 08/19/18 11:26; Admin Dose 18 UNITS; Start 08/18/18 at 08:00 Zolpidem Tartrate (Ambien) 5 mg HS PRN PO INSOMNIA Last administered on 08/19/18 00:25; Admin Dose 5 MG; Start 08/17/18 at 21:30 Furosemide (Lasix) 80 mg BID DIURETICS PO Last administered on 08/19/18 06:11; Admin Dose 80 MG; Start 08/18/18 at 18:00 Clotrimazole (Clotrim 1% Vaginal Cr) 1 applic BID VAG ; Start 08/19/18 at 21:00; Stop 08/26/18 at 20:59 GERTRUDIS GUILLERMO August 19, 2018 11:48
--- NOTE | 2018-08-19 14:21 | PN ---
Date/Time of Note Date/Time of Note DATE: 08/19/18 TIME: 14:18 Assessment/Plan VTE Prophylaxis Risk score (from Ns)>0 risk: 7 SCD applied (from Ns): Yes Pharmacological prophylaxis: heparin Lines/Catheters IV [facility]from [facility] [place] [facility] Urinary Cath still in place: No Assessment/Plan Hospital Course Patient complains of worsening bilateral lower extremities edema, continue Lasix at increased dose per nephrology recommendation, hemodialysis tomorrow, elevate bilateral lower extremity, continue strict fluid restriction. Patient is asking for breathing treatment however completing antibiotics for pneumonia. If patient continues to improve, patient can be discharged home tomorrow after hemodialysis. Assessment/Plan -Healthcare associated pneumonia, continue broad-spectrum antibiotics, Dr. Lucas is following in infection disease consultation. -Hyperkalemia -Dialysis dependent end-stage renal disease. Dr. Spicer is following in nephrology consultation. -Elevated troponin likely type 2 demand infarct in the setting of pneumonia, pt declined Stress test. Dr. William is following in cardiology consultation. -Atrial fibrillation, continue metoprolol and Eliquis. -Anemia of chronic disease, continue Epogen. -Diabetes mellitus type 2 with hemoglobin A1c of 6.5, continue Lantus and NovoLog -Peripheral vascular disease history of left lower extremity bypass surgery. -Right foot ulcer. Dr. Pineda is following and podiatry consultation. Disposition: to transitional living facility when symptoms resolve and cleared by consultants. Further recommendations based on clinical course. Plan of care discussed with Dr. Cordero. Result Diagram: 08/19/18 0509 08/19/18 0509 Results 24hrs Laboratory Tests Test 08/18/18 17:26 08/18/18 20:29 08/19/18 05:09 08/19/18 06:29 Bedside Glucose 113 126 201 White Blood Count 5.6 # Red Blood Count 3.17 L Hemoglobin 10.6 L Hematocrit 34.3 L Mean Corpuscular 108.2 H Volume Mean Corpuscular 33.4 H Hemoglobin Mean Corpuscular 30.9 L Hemoglobin Concent Red Cell 17.3 H Distribution Width Platelet Count 277 Mean Platelet 10.8 H Volume Immature 1.100 H Granulocytes % Neutrophils % 69.7 Lymphocytes % 13.7 L Monocytes % 11.9 H Eosinophils % 3.2 Basophils % 0.4 Nucleated Red 0.0 Blood Cells % Immature 0.060 H Granulocytes # Neutrophils # 3.9 Lymphocytes # 0.8 Monocytes # 0.7 Eosinophils # 0.2 Basophils # 0.0 Nucleated Red 0.0 Blood Cells # Sodium Level 141 Potassium Level 4.8 Chloride Level 97 Carbon Dioxide 30 Level Anion Gap 14 H Blood Urea 47 H Nitrogen Creatinine 4.92 H Est Glomerular 9 L Filtrat Rate mL/min Glucose Level 146 # Calcium Level 9.7 Magnesium Level 2.3 Test 08/19/18 07:53 08/19/18 11:21 08/19/18 12:25 Bedside Glucose 116 175 Lab Scanned Report REFERENCE LAB Exam/Review of Systems Exam Vitals Vital Signs Date Temp Pulse Resp B/P (MAP) Pulse Ox O2 O2 Flow FiO2 Time Delivery Rate 08/19/18 98.3 55 20 154/77 97 12:02 (102) 08/19/18 3.0 11:42 08/19/18 Nasal 11:42 Cannula 08/18/18 36 18:03 Intake and Output 08/18/18 08/18/18 08/19/18 1515:00 23:00 07:00 IntakeIntake Total 360 ml 340 ml 400 ml OutputOutput Total 3901 ml BalanceBalance 360 ml 340 ml -3501 ml Exam Constitutional: alert, oriented Respiratory: diminished breath sounds Cardiovascular: regular rate and rhythm Gastrointestinal: soft, non-tender Musculoskeletal: nl extremities to inspection Extremities: normal pulses, other (Right foot ulcer) Neurological: nl mental status Left chest hemodialysis catheter Results Results 24hrs Laboratory Tests Test 08/18/18 17:26 08/18/18 20:29 08/19/18 05:09 08/19/18 06:29 Bedside Glucose 113 126 201 White Blood Count 5.6 # Red Blood Count 3.17 L Hemoglobin 10.6 L Hematocrit 34.3 L Mean Corpuscular 108.2 H Volume Mean Corpuscular 33.4 H Hemoglobin Mean Corpuscular 30.9 L Hemoglobin Concent Red Cell 17.3 H Distribution Width Platelet Count 277 Mean Platelet 10.8 H Volume Immature 1.100 H Granulocytes % Neutrophils % 69.7 Lymphocytes % 13.7 L Monocytes % 11.9 H Eosinophils % 3.2 Basophils % 0.4 Nucleated Red 0.0 Blood Cells % Immature 0.060 H Granulocytes # Neutrophils # 3.9 Lymphocytes # 0.8 Monocytes # 0.7 Eosinophils # 0.2 Basophils # 0.0 Nucleated Red 0.0 Blood Cells # Sodium Level 141 Potassium Level 4.8 Chloride Level 97 Carbon Dioxide 30 Level Anion Gap 14 H Blood Urea 47 H Nitrogen Creatinine 4.92 H Est Glomerular 9 L Filtrat Rate mL/min Glucose Level 146 # Calcium Level 9.7 Magnesium Level 2.3 Test 08/19/18 07:53 08/19/18 11:21 08/19/18 12:25 Bedside Glucose 116 175 Lab Scanned Report REFERENCE LAB Medications Medication Current Medications Buspirone HCl (Buspar) 10 mg TID PO Last administered on 08/19/18 13:59; Admin Dose 10 MG; Start 08/10/18 at 09:00 Diltiazem HCl (Cardizem Cd) 120 mg DAILY PO Last administered on 08/18/18 08:26; Admin Dose 120 MG; Start 08/10/18 at 09:00 Gabapentin (Neurontin) 300 mg TID PO Last administered on 08/19/18 13:59; Admin Dose 300 MG; Start 08/10/18 at 09:00 Metoprolol Tartrate (Lopressor) 25 mg BID PO Last administered on 08/19/18 08:57; Admin Dose 25 MG; Start 08/10/18 at 09:00 Pantoprazole (Protonix Tab) 40 mg AC BREAKFAST PO Last administered on 08/19/18 06:10; Admin Dose 40 MG; Start 08/10/18 at 07:00 Sevelamer Carbonate (Renvela) 1.6 gm WITH MEALS PO Last administered on 08/19/18 11:22; Admin Dose 1.6 GM; Start 08/10/18 at 08:00 Apixaban (Eliquis) 5 mg BID PO Last administered on 08/19/18 08:57; Admin Dose 5 MG; Start 08/10/18 at 09:00 Cefepime HCl 50 ml @ 100 mls/hr Q24H IVPB Last administered on 08/19/18 08:57; Admin Dose 100 MLS/HR; Start 08/10/18 at 09:00 Acetaminophen (Tylenol Tab) 650 mg Q6H PRN PO MILD PAIN(1-3)OR ELEVATED TEMP Last administered on 08/16/18 02:21; Admin Dose 650 MG; Start 08/09/18 at 23:30 Morphine Sulfate (morphine) 2 mg Q4H PRN IV SEVERE PAIN LEVEL 7-10 Last administered on 08/11/18 05:01; Admin Dose 2 MG; Start 08/09/18 at 23:30 Guaifenesin/ Codeine Phosphate (Robitussin Ac Liquid Cup) 10 ml Q4H PRN PO COUGH Last administered on 08/19/18 04:20; Admin Dose 10 ML; Start 08/09/18 at 23:30 Miscellaneous Information 1 ea NOTE XX ; Start 08/10/18 at 05:30 Glucose (Glutose) 15 gm Q15M PRN PO DECREASED GLUCOSE; Start 08/10/18 at 05:30 Glucose (Glutose) 22.5 gm Q15M PRN PO DECREASED GLUCOSE; Start 08/10/18 at 05:30 Dextrose (D50w Syringe) 25 ml Q15M PRN IV DECREASED GLUCOSE; Start 08/10/18 at 05:30 Dextrose (D50w Syringe) 50 ml Q15M PRN IV DECREASED GLUCOSE Last administered on 08/13/18 21:34; Admin Dose 50 ML; Start 08/10/18 at 05:30 Glucagon (Glucagen) 1 mg Q15M PRN IM DECREASED GLUCOSE; Start 08/10/18 at 05:30 Glucose (Glutose) 15 gm Q15M PRN BUCCAL DECREASED GLUCOSE Last administered on 08/14/18 19:18; Admin Dose 15 GM; Start 08/10/18 at 05:30 Insulin Aspart (Novolog Insulin Pen) NOVOLOG *MILD* ALGORI... AC MEALS AND BEDTIME SC Last administered on 08/19/18 11:33; Admin Dose 1 UNIT; Start 08/10/18 at 08:00 Diagnostic Test (Pha) (Accu-Chek) 1 ea 02 XX Last administered on 08/17/18 02:11; Admin Dose 1 EA; Start 08/11/18 at 02:00 Insulin Aspart (Novolog Insulin Pen) 10 unit WITH MEALS SC Last administered on 08/19/18 11:26; Admin Dose 10 UNIT; Start 08/11/18 at 08:00 Docusate Sodium (Colace) 100 mg DAILY PO Last administered on 08/19/18 08:56; Admin Dose 100 MG; Start 08/12/18 at 09:00 Tramadol HCl (Ultram) 50 mg Q12H PRN PO PAIN; Start 08/11/18 at 13:30 Diclofenac Sodium (Voltaren 1% Gel) 2 gm BID TP Last administered on 08/19/18 09:02; Admin Dose 2 GM; Start 08/11/18 at 21:00 Acetaminophen/ Hydrocodone Bitart ([place] (5/325)) 1 tab Q4H PRN PO MODERATE ALICE N LEVEL 4-6 Last administered on 08/19/18 11:20; Admin Dose 1 TAB; Start 08/12/18 at 15:00 Isosorbide Dinitrate (Isordil) 10 mg TID PO Last administered on 08/19/18 14:00; Admin Dose 10 MG; Start 08/12/18 at 21:00 Lorazepam (Ativan) 1 mg Q6H PRN IV ANXIETY Last administered on 08/19/18 00:03; Admin Dose 1 MG; Start 08/12/18 at 22:30 Heparin Sodium (Porcine) (Heparin (1000 Units/ml)) 4,000 unit AFTER DIALYSIS CATHETER Last administered on 08/19/18 00:47; Admin Dose 2,300 UNIT; Start 08/13/18 at 16:30 Senna (Senokot) 2 tab BID PRN PO CONSTIPATION Last administered on 08/18/18 10:11; Admin Dose 2 TAB; Start 08/14/18 at 12:00 Albuterol/ Ipratropium (Duoneb) 3 ml Q6H RESP THERAPY PRN HHN SHORTNESS OF BREATH Last administered on 08/19/18 11:42; Admin Dose 3 ML; Start 08/15/18 at 11:00 Ondansetron HCl (Zofran Inj) 4 mg Q6H PRN IV NAUSEA AND/OR VOMITING; Start 08/15/18 at 11:00 Epoetin Bam-epbx (Retacrit (Esrd)) 4,000 unit TuThSa@1700 SC Last administered on 08/17/18 16:43; Admin Dose 4,000 UNIT; Start 08/17/18 at 17:00 Multivit/Ca Carb/ B Cmplx/FA/Prenat (Addie-Mikayla) 1 tab DAILY PO Last administered on 08/19/18 08:57; Admin Dose 1 TAB; Start 08/16/18 at 12:00 Hydrocortisone (Hydrocortisone 0.5% Cr) 1 applic BID PRN TOP ITCHING Last administered on 08/18/18at 15:54; Admin Dose 1 APPLIC; Start 08/16/18 at 22:30 Zolpidem Tartrate (Ambien) 5 mg HS PRN PO INSOMNIA Last administered on 08/19/18at 00:25; Admin Dose 5 MG; Start 08/17/18 at 21:30 Clotrimazole (Clotrim 1% Vaginal Cr) 1 applic BID VAG ; Start 08/19/18 at 21:00; Stop 08/26/18 at 20:59 Hydralazine HCl (Apresoline) 25 mg Q8 PO Last administered on 08/19/18at 14:00; Admin Dose 25 MG; Start 08/19/18 at 14:00 Bumetanide (Bumex) 2 mg BID DIURETICS PO ; Start 08/19/18 at 18:00 Insulin Glargine (Lantus) 22 units DAILY@0800 SC ; Start 08/20/18 at 08:00 ANTHONY DUPREE August 19, 2018 14:21
[2018-08-19] MEDS: EPOETIN ALFA-EPBX (ESRD) 4,000 UNIT/ML VIAL SC SCH (17:00)
[2018-08-19] MEDS: BUMETANIDE 1 MG TAB PO SCH (17:08)
--- NOTE | 2018-08-19 17:34 | CONS ---
Assessment/Plan Assessment/Plan Assessment/Plan (Daily) ssessment/Plan 58-year-old female who presented with: 1. Shortness of breath, cough, with fevers, likely secondary to pneumonia; however, might have some underlying fluid overload. 2. Hyperkalemia. Not sure about patient's compliance; however, the patient had been going to his dialysis center. 3. Elevated troponin. Patient has history of end-stage renal disease.? ACS 4. History of peripheral vascular disease. 5. End-stage renal disease, Thursday, , Thursday. 6. Anemia, likely anemia of chronic disease. 7. Peripheral vascular disease status post bypass of the left lower extremity. 8. Right foot ulcer with infection at the site of recent debridement. Cultures grew MSSA and Enterococcus. 9. History of central stenosis with apparent revascularization. 10. Status post placement of left IJ Permcath 06/2017. 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 said that he feels that she feels that she is still swollen Exam/Review of Systems Exam Vitals Vital Signs Date Temp Pulse Resp B/P (MAP) Pulse Ox O2 O2 Flow FiO2 Time Delivery Rate 08/19/18 92 16:00 08/19/18 98.3 20 138/63 98 15:23 (88) 08/19/18 3.0 11:42 08/19/18 Nasal 11:42 Cannula 08/18/18 36 18:03 Intake and Output 08/18/18 08/18/18 08/19/18 1515:00 23:00 07:00 IntakeIntake Total 360 ml 340 ml 400 ml OutputOutput Total 3901 ml BalanceBalance 360 ml 340 ml -3501 ml Exam GENERAL: The patient is awake, alert, oriented, does not appear to be in any acute distress. HEENT: Pupils equal, round, reactive to light. NECK: Supple, no JVD. HEART: Regular rate and rhythm. LUNGS: Diffuse bilateral rhonchi and some crackles appreciated, especially on the left base. ABDOMEN: Soft, nontender, nondistended, positive normoactive bowel sounds. EXTREMITIES: The patient has a left Perm-A-Cath in place. The patient has a l eft upper extremity fistula with a bruit/thrill. Patient has a right leg diabetic ulcer, status post amputation of the right first toe. Results Result Diagram: 08/19/18 0509 08/19/18 0509 Results 24hrs Laboratory Tests Test 08/18/18 20:29 08/19/18 05:09 08/19/18 06:29 08/19/18 07:53 Bedside Glucose 126 201 116 White Blood Count 5.6 # Red Blood Count 3.17 L Hemoglobin 10.6 L Hematocrit 34.3 L Mean Corpuscular 108.2 H Volume Mean Corpuscular 33.4 H Hemoglobin Mean Corpuscular 30.9 L Hemoglobin Concent Red Cell 17.3 H Distribution Width Platelet Count 277 Mean Platelet 10.8 H Volume Immature 1.100 H Granulocytes % Neutrophils % 69.7 Lymphocytes % 13.7 L Monocytes % 11.9 H Eosinophils % 3.2 Basophils % 0.4 Nucleated Red 0.0 Blood Cells % Immature 0.060 H Granulocytes # Neutrophils # 3.9 Lymphocytes # 0.8 Monocytes # 0.7 Eosinophils # 0.2 Basophils # 0.0 Nucleated Red 0.0 Blood Cells # Sodium Level 141 Potassium Level 4.8 Chloride Level 97 Carbon Dioxide 30 Level Anion Gap 14 H Blood Urea 47 H Nitrogen Creatinine 4.92 H Est Glomerular 9 L Filtrat Rate mL/min Glucose Level 146 # Calcium Level 9.7 Magnesium Level 2.3 Test 08/19/18 11:21 08/19/18 12:25 08/19/18 17:11 Bedside Glucose 175 281 H Lab Scanned Report REFERENCE LAB Medications Medication Current Medications Buspirone HCl (Buspar) 10 mg TID PO Last administered on 08/19/18at 13:59; Admin Dose 10 MG; Start 08/10/18 at 09:00 Diltiazem HCl (Cardizem Cd) 120 mg DAILY PO Last administered on 08/18/18 08:26; Admin Dose 120 MG; Start 08/10/18 at 09:00 Gabapentin (Neurontin) 300 mg TID PO Last administered on 08/19/18 13:59; Admin Dose 300 MG; Start 08/10/18 at 09:00 Metoprolol Tartrate (Lopressor) 25 mg BID PO Last administered on 08/19/18 08:57; Admin Dose 25 MG; Start 08/10/18 at 09:00 Pantoprazole (Protonix Tab) 40 mg AC BREAKFAST PO Last administered on 08/19/18 06:10; Admin Dose 40 MG; Start 08/10/18 at 07:00 Sevelamer Carbonate (Renvela) 1.6 gm WITH MEALS PO Last administered on 08/19/18 17:08; Admin Dose 1.6 GM; Start 08/10/18 at 08:00 Apixaban (Eliquis) 5 mg BID PO Last administered on 08/19/18 08:57; Admin Dose 5 MG; Start 08/10/18 at 09:00 Cefepime HCl 50 ml @ 100 mls/hr Q24H IVPB Last administered on 08/19/18 08:57; Admin Dose 100 MLS/HR; Start 08/10/18 at 09:00 Acetaminophen (Tylenol Tab) 650 mg Q6H PRN PO MILD PAIN(1-3)OR ELEVATED TEMP Last administered on 08/16/18 02:21; Admin Dose 650 MG; Start 08/09/18 at 23:30 Morphine Sulfate (morphine) 2 mg Q4H PRN IV SEVERE PAIN LEVEL 7-10 Last administered on 08/11/18 05:01; Admin Dose 2 MG; Start 08/09/18 at 23:30 Guaifenesin/ Codeine Phosphate (Robitussin Ac Liquid Cup) 10 ml Q4H PRN PO COUGH Last administered on 08/19/18 04:20; Admin Dose 10 ML; Start 08/09/18 at 2 3:30 Miscellaneous Information 1 ea NOTE XX ; Start 08/10/18 at 05:30 Glucose (Glutose) 15 gm Q15M PRN PO DECREASED GLUCOSE; Start 08/10/18 at 05:30 Glucose (Glutose) 22.5 gm Q15M PRN PO DECREASED GLUCOSE; Start 08/10/18 at 05:30 Dextrose (D50w Syringe) 25 ml Q15M PRN IV DECREASED GLUCOSE; Start 08/10/18 at 05:30 Dextrose (D50w Syringe) 50 ml Q15M PRN IV DECREASED GLUCOSE Last administered on 08/13/18at 21:34; Admin Dose 50 ML; Start 08/10/18 at 05:30 Glucagon (Glucagen) 1 mg Q15M PRN IM DECREASED GLUCOSE; Start 08/10/18 at 05:30 Glucose (Glutose) 15 gm Q15M PRN BUCCAL DECREASED GLUCOSE Last administered on 08/14/18 19:18; Admin Dose 15 GM; Start 08/10/18 at 05:30 Insulin Aspart (Novolog Insulin Pen) NOVOLOG *MILD* ALGORI... AC MEALS AND BEDTIME SC Last administered on 08/19/18 17:13; Admin Dose 4 UNIT; Start 08/10/18 at 08:00 Diagnostic Test (Pha) (Accu-Chek) 1 ea 02 XX Last administered on 08/17/18 02:11; Admin Dose 1 EA; Start 08/11/18 at 02:00 Insulin Aspart (Novolog Insulin Pen) 10 unit WITH MEALS SC Last administered on 08/19/18 17:18; Admin Dose 10 UNIT; Start 08/11/18 at 08:00 Docusate Sodium (Colace) 100 mg DAILY PO Last administered on 08/19/18 08:56; Admin Dose 100 MG; Start 08/12/18 at 09:00 Tramadol HCl (Ultram) 50 mg Q12H PRN PO PAIN; Start 08/11/18 at 13:30 Diclofenac Sodium (Voltaren 1% Gel) 2 gm BID TP Last administered on 08/19/18 09:02; Admin Dose 2 GM; Start 08/11/18 at 21:00 Acetaminophen/ Hydrocodone Bitart ([place] (5/325)) 1 tab Q4H PRN PO MODERATE PAIN LEVEL 4-6 Last administered on 08/19/18 17:08; Admin Dose 1 TAB; Start 08/12/18 at 15:00 Isosorbide Dinitrate (Isordil) 10 mg TID PO Last administered on 08/19/18 14:00; Admin Dose 10 MG; Start 08/12/18 at 21:00 Lorazepam (Ativan) 1 mg Q6H PRN IV ANXIETY Last administered on 08/19/18 00:03 ; Admin Dose 1 MG; Start 08/12/18 at 22:30 Heparin Sodium (Porcine) (Heparin (1000 Units/ml)) 4,000 unit AFTER DIALYSIS CATHETER Last administered on 08/19/18 00:47; Admin Dose 2,300 UNIT; Start 01/22 at 16:30 Senna (Senokot) 2 tab BID PRN PO CONSTIPATION Last administered on 08/18/18 10:11; Admin Dose 2 TAB; Start 08/14/18 at 12:00 Albuterol/ Ipratropium (Duoneb) 3 ml Q6H RESP THERAPY PRN HHN SHORTNESS OF BREATH Last administered on 08/19/18 11:42; Admin Dose 3 ML; Start 08/15/18 at 11:00 Ondansetron HCl (Zofran Inj) 4 mg Q6H PRN IV NAUSEA AND/OR VOMITING; Start 08/15/18 at 11:00 Epoetin Bam-epbx (Retacrit (Esrd)) 4,000 unit TuThSa@1700 SC Last administered on 08/17/18 16:43; Admin Dose 4,000 UNIT; Start 08/17/18 at 17:00 Multivit/Ca Carb/ B Cmplx/FA/Prenat (Addie-Mikayla) 1 tab DAILY PO Last administered on 08/19/18 08:57; Admin Dose 1 TAB; Start 08/16/18 at 12:00 Hydrocortisone (Hydrocortisone 0.5% Cr) 1 applic BID PRN TOP ITCHING Last administered on 08/18/18 15:54; Admin Dose 1 APPLIC; Start 08/16/18 at 22:30 Zolpidem Tartrate (Ambien) 5 mg HS PRN PO INSOMNIA Last administered on 08/19/18 00:25; Admin Dose 5 MG; Start 08/17/18 at 21:30 Clotrimazole (Clotrim 1% Vaginal Cr) 1 applic BID VAG ; Start 08/19/18 at 21:00; Stop 08/26/18 at 20:59 Hydralazine HCl (Apresoline) 25 mg Q8 PO Last administered on 08/19/18at 14:00; Admin Dose 25 MG; Start 08/19/18 at 14:00 Bumetanide (Bumex) 2 mg BID DIURETICS PO Last administered on 08/19/18at 17:08; Admin Dose 2 MG; Start 08/19/18 at 18:00 Insulin Glargine (Lantus) 22 units DAILY@0800 SC ; Start 08/20/18 at 08:00 DARELL JAMES MD August 19, 2018 17:34
[2018-08-19] MEDS ORDERED: morphine 2 MG INJ IV PRN (18:00)
[2018-08-19] MEDS: CLOTRIMAZOLE 1% 45 GM VAG CR VAG SCH (21:01)
--- NOTE | 2018-08-19 21:37 | CONS ---
Assessment/Plan Assessment/Plan Hospital Course (Demo Recall) - S/p sepsis d/t HCAP - fever and tachycardia resolved - HCAP - slowly improving - Likely underlying fluid overload - ESRD on HD T-T-S - Hyperkalemia - Elevated troponin - H/o non-healing diabetic R foot ulceration with infection at site of recent debridement; cultures grew MSSA and Enterococcus (ESR 93) - S/p excisional sharp debridement of the right first toe involving skin and subcutaneous tissue on 06/11/2017 - Evidence of osteomyelitis at the remnant of the first distal phalanx per MRI R foot 06/24/2017 - DM with hypoglycemic episode - Hgb A1c 6.5% - Diabetic neuropathy - H/o diabetic foot infections/OM of b/l feet, s/p amputation of R two toes - H/o central stenosis with apparent recent re-vascularization - S/p placement of L IJ HD catheter 06/20/2017 - PVD - H/o LLE bypass - CHF and CAD - Anemia of chronic kidney disease - Morbid obesity - BMI 39.9 - H/o dysphagia, Group A pharyngitis screen was negative - H/o mildly dilated esophagus on CT (11/2016) and multiple distal erosive lesions in the distal esophagus per EGD (11/27/2016; path negative) - 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 Pt's sinuses are non-TTP. On a trial of renally dosed oseltamivir (06/30/2017-) ResultedL respiratory virus panel (negative) Recommendations: - Monitor closely off antibiotics - S/p Cefepime (08/09/2018-08/18/18) - consider short course of prednisone - Pending: pertussis DFA - still pending Above plan d/w via [email or web address] Consultation Date/Type/Reason Admit Date/Time August 09, 2018 at 17:42 Initial Consult Date 08/10/18 Requesting Provider: KIRSTIN SPANN MD Date/Time of Note DATE: 08/19/18 TIME: 21:33 Detailed Summary Eyes: no complaints ENT: no complaints Respiratory: cough Cardiovascular: no complaints Gastrointestinal: no complaints Genitourinary: no complaints Musculoskeletal: no complaints Skin: no complaints Neurologic: no complaints Endocrine: no complaints Psychological: anxiety Exam/Review of Systems Exam Vitals Vital Signs Date Temp Pulse Resp B/P (MAP) Pulse Ox O2 O2 Flow FiO2 Time Delivery Rate 08/19/18 97.9 82 19 125/58 92 20:00 (80) 08/19/18 2.0 17:37 08/19/18 Nasal 11:42 Cannula 08/18/18 36 18:03 Intake and Output 08/18/18 08/18/18 08/19/18 1515:00 23:00 07:00 IntakeIntake Total 360 ml 340 ml 400 ml OutputOutput Total 3901 ml BalanceBalance 360 ml 340 ml -3501 ml Exam Constitutional: alert, oriented, well developed, obese Psych: anxiety Head: normocephalic, atraumatic Eyes: nl conjunctiva, EOMI, PERRL; No icteric ENMT: nl external ears & nose, nl nasal mucosa & septum, mucosa pink and moist Neck: supple Respiratory: diminished breath sounds bases, other (mild rhonchi bilaterally ); No crackles/rales, No labored breathing, No wheezing Cardiovascular: regular rate and rhythm Gastrointestinal: soft, non-tender, bowel sounds (normoactive); No distended Musculoskeletal: nl extremities to inspection, range of motion Extremities: No clubbing Neurological: nl mental status, nl speech, nl strength; No confused, No numbness Skin: ecchymosis, other (R foot dry ulcer no drainage or s/s infection); No rash or lesions Results Result Diagram: 08/19/18 0509 08/19/18 0509 Results 24hrs Laboratory Tests Test 08/19/18 05:09 08/19/18 06:29 08/19/18 07:53 08/19/18 11:21 White Blood Count 5.6 # Red Blood Count 3.17 L Hemoglobin 10.6 L Hematocrit 34.3 L Mean Corpuscular 108.2 H Volume Mean Corpuscular 33.4 H Hemoglobin Mean Corpuscular 30.9 L Hemoglobin Concent Red Cell 17.3 H Distribution Width Platelet Count 277 Mean Platelet 10.8 H Volume Immature 1.100 H Granulocytes % Neutrophils % 69.7 Lymphocytes % 13.7 L Monocytes % 11.9 H Eosinophils % 3.2 Basophils % 0.4 Nucleated Red 0.0 Blood Cells % Immature 0.060 H Granulocytes # Neutrophils # 3.9 Lymphocytes # 0.8 Monocytes # 0.7 Eosinophils # 0.2 Basophils # 0.0 Nucleated Red 0.0 Blood Cells # Sodium Level 141 Potassium Level 4.8 Chloride Level 97 Carbon Dioxide 30 Level Anion Gap 14 H Blood Urea 47 H Nitrogen Creatinine 4.92 H Est Glomerular 9 L Filtrat Rate mL/min Glucose Level 146 # Calcium Level 9.7 Magnesium Level 2.3 Bedside Glucose 201 116 175 Test 08/19/18 12:25 08/19/18 17:11 08/19/18 20:34 Lab Scanned Report REFERENCE LAB Bedside Glucose 281 H 204 Medications Medication Current Medications Buspirone HCl (Buspar) 10 mg TID PO Last administered on 08/19/18 20:59; Admin Dose 10 MG; Start 08/10/18 at 09:00 Diltiazem HCl (Cardizem Cd) 120 mg DAILY PO Last administered on 08/18/18 08:26; Admin Dose 120 MG; Start 08/10/18 at 09:00 Gabapentin (Neurontin) 300 mg TID PO Last administered on 08/19/18 20:59; Admin Dose 300 MG; Start 08/10/18 at 09:00 Metoprolol Tartrate (Lopressor) 25 mg BID PO Last administered on 08/19/18 21:00; Admin Dose 25 MG; Start 08/10/18 at 09:00 Pantoprazole (Protonix Tab) 40 mg AC BREAKFAST PO Last administered on 08/19/18 at 06:10; Admin Dose 40 MG; Start 08/10/18 at 07:00 Sevelamer Carbonate (Renvela) 1.6 gm WITH MEALS PO Last administered on 08/19/18 17:08; Admin Dose 1.6 GM; Start 08/10/18 at 08:00 Apixaban (Eliquis) 5 mg BID PO Last administered on 08/19/18 21:01; Admin Dose 5 MG; Start 08/10/18 at 09:00 Cefepime HCl 50 ml @ 100 mls/hr Q24H IVPB Last administered on 08/19/18 08:57; Admin Dose 100 MLS/HR; Start 08/10/18 at 09:00 Acetaminophen (Tylenol Tab) 650 mg Q6H PRN PO MILD PAIN(1-3)OR ELEVATED TEMP Last administered on 08/16/18 02:21; Admin Dose 650 MG; Start 08/09/18 at 23:30 Morphine Sulfate (morphine) 2 mg Q4H PRN IV SEVERE PAIN LEVEL 7-10 Last administered on 08/11/18 05:01; Admin Dose 2 MG; Start 08/09/18 at 23:30 Guaifenesin/ Codeine Phosphate (Robitussin Ac Liquid Cup) 10 ml Q4H PRN PO COUGH Last administered on 08/19/18 04:20; Admin Dose 10 ML; Start 08/09/18 at 23:30 Miscellaneous Information 1 ea NOTE XX ; Start 08/10/18 at 05:30 Glucose (Glutose) 15 gm Q15M PRN PO DECREASED GLUCOSE; Start 08/10/18 at 05:30 Glucose (Glutose) 22.5 gm Q15M PRN PO DECREASED GLUCOSE; Start 08/10/18 at 05:30 Dextrose (D50w Syringe) 25 ml Q15M PRN IV DECREASED GLUCOSE; Start 08/10/18 at 05:30 Dextrose (D50w Syringe) 50 ml Q15M PRN IV DECREASED GLUCOSE Last administered on 08/13/18 21:34; Admin Dose 50 ML; Start 08/10/18 at 05:30 Glucagon (Glucagen) 1 mg Q15M PRN IM DECREASED GLUCOSE; Start 08/10/18 at 05:30 Glucose (Glutose) 15 gm Q15M PRN BUCCAL DECREASED GLUCOSE Last administered on 08/14/18 19:18; Admin Dose 15 GM; Start 08/10/18 at 05:30 Insulin Aspart (Novolog Insulin Pen) NOVOLOG *MILD* ALGORI... AC MEALS AND BEDTIME SC Last administered on 08/19/18 21:04; Admin Dose 2 UNIT; Start 08/10/18 at 08:00 Diagnostic Test (Pha) (Accu-Chek) 1 ea 02 XX Last administered on 08/17/18 02 :11; Admin Dose 1 EA; Start 08/11/18 at 02:00 Insulin Aspart (Novolog Insulin Pen) 10 unit WITH MEALS SC Last administered on 08/19/18 17:18; Admin Dose 10 UNIT; Start 08/11/18 at 08:00 Docusate Sodium (Colace) 100 mg DAILY PO Last administered on 08/19/18 08:56; Admin Dose 100 MG; Start 08/12/18 at 09:00 Tramadol HCl (Ultram) 50 mg Q12H PRN PO PAIN; Start 08/11/18 at 13:30 Diclofenac Sodium (Voltaren 1% Gel) 2 gm BID TP Last administered on 08/19/18 21:02; Admin Dose 2 GM; Start 08/11/18 at 21:00 Acetaminophen/ Hydrocodone Bitart ([place] (5/325)) 1 tab Q4H PRN PO MODERATE PAIN LEVEL 4-6 Last administered on 08/19/18 17:08; Admin Dose 1 TAB; Start 08/12/18 at 15:00 Isosorbide Dinitrate (Isordil) 10 mg TID PO Last administered on 08/19/18 21:00; Admin Dose 10 MG; Start 08/12/18 at 21:00 Lorazepam (Ativan) 1 mg Q6H PRN IV ANXIETY Last administered on 08/19/18 18:48; Admin Dose 1 MG; Start 08/12/18 at 22:30 Heparin Sodium (Porcine) (Heparin (1000 Units/ml)) 4,000 unit AFTER DIALYSIS CATHETER Last administered on 08/19/18 00:47; Admin Dose 2,300 UNIT; Start 08/13/18 at 16:30 Senna (Senokot) 2 tab BID PRN PO CONSTIPATION Last administered on 08/18/18 10:11; Admin Dose 2 TAB; Start 08/14/18 at 12:00 Albuterol/ Ipratropium (Duoneb) 3 ml Q6H RESP THERAPY PRN HHN SHORTNESS OF B REATH Last administered on 08/19/18 11:42; Admin Dose 3 ML; Start 08/15/18 at 11:00 Ondansetron HCl (Zofran Inj) 4 mg Q6H PRN IV NAUSEA AND/OR VOMITING; Start 08/15/18 at 11:00 Epoetin Bam-epbx (Retacrit (Esrd)) 4,000 unit TuThSa@1700 SC Last administered on 08/17/18 16:43; Admin Dose 4,000 UNIT; Start 08/17/18 at 17:00 Multivit/Ca Carb/ B Cmplx/FA/Prenat (Addie-Mikayla) 1 tab DAILY PO Last admi nistered on 08/19/18 08:57; Admin Dose 1 TAB; Start 08/16/18 at 12:00 Hydrocortisone (Hydrocortisone 0.5% Cr) 1 applic BID PRN TOP ITCHING Last administered on 08/18/18at 15:54; Admin Dose 1 APPLIC; Start 08/16/18 at 22:30 Zolpidem Tartrate (Ambien) 5 mg HS PRN PO INSOMNIA Last administered on 08/04 00:25; Admin Dose 5 MG; Start 08/17/18 at 21:30 Clotrimazole (Clotrim 1% Vaginal Cr) 1 applic BID VAG Last administered on 08/19/18 21:01; Admin Dose 1 APPLIC; Start 08/19/18 at 21:00; Stop 08/26/18 at 20:59 Hydralazine HCl (Apresoline) 25 mg Q8 PO Last administered on 08/19/18at 14:00; Admin Dose 25 MG; Start 08/19/18 at 14:00 Bumetanide (Bumex) 2 mg BID DIURETICS PO Last administered on 08/19/18 17:08; Admin Dose 2 MG; Start 08/19/18 at 18:00 Insulin Glargine (Lantus) 22 units DAILY@0800 SC ; Start 08/20/18 at 08:00 CHERYL TRINIDAD NP August 19, 2018 21:37
[2018-08-19] MEDS: SENNA TAB PO PRN (21:48)
[2018-08-20] VITALS (25 sets, daily range): BP systolic 93–184; BP diastolic 39–93; PULSE 55–98; RESP 18–20
[2018-08-20] MEDS: GUAIFENESIN/CODEINE 5ML CUP PO PRN (00:10)
[2018-08-20] MEDS: HYDROCODONE/APAP (5/325) TAB PO PRN ×3 (00:10→21:58)
[2018-08-20] MEDS: ACCU-CHEK XX SCH (02:05)
[2018-08-20] MEDS: ALBUTEROL/IPRATROPIUM (NEB) 3 ML AMP HHN PRN (03:20)
[2018-08-20] MEDS: BUMETANIDE 1 MG TAB PO SCH ×2 (06:38→17:33)
[2018-08-20] MEDS: PANTOPRAZOLE (EC) 40 MG TAB PO SCH (06:38)
[2018-08-20] MEDS: INSULIN ASPART [NOVOLOG] 3 ML PEN SC SCH ×7 (06:51→21:49)
[2018-08-20] MEDS: DOCUSATE SODIUM 100 MG CAP PO SCH (08:02)
[2018-08-20] MEDS: MULTIVIT/CA CARB/B CMPLX/FA TAB PO SCH (08:02)
[2018-08-20] MEDS: SEVELAMER CARBONATE 0.8 GM PKT PO SCH ×3 (08:02→17:34)
[2018-08-20] MEDS: CEFEPIME 1GM/50 ML (PMX) 50 ML IVPB SCH (08:02)
[2018-08-20] MEDS: BUSPIRONE 10 MG TAB PO SCH ×3 (08:02→20:52)
[2018-08-20] MEDS: APIXABAN 5 MG TABLET PO SCH ×2 (08:03→20:52)
[2018-08-20] MEDS: DILTIAZEM (CD) 120 MG CAP PO SCH ×2 (08:03→10:20)
[2018-08-20] MEDS: METOPROLOL 25 MG TAB PO SCH ×2 (08:03→20:50)
[2018-08-20] MEDS: ISOSORBIDE DINITRATE 10 MG TAB PO SCH ×4 (08:03→20:50)
[2018-08-20] MEDS: DICLOFENAC SODIUM 1% GEL 100 GM TUBE TP SCH ×2 (08:05→22:00)
[2018-08-20] MEDS: CLOTRIMAZOLE 1% 45 GM VAG CR VAG SCH ×2 (08:15→20:52)
[2018-08-20] MEDS: GABAPENTIN 300 MG CAP PO SCH ×3 (08:15→20:52)
[2018-08-20] MEDS: LORAZEPAM 2 MG INJ IV PRN ×2 (08:47→21:58)
[2018-08-20] MEDS: INSULIN GLARGINE [LANTus] (100 UNITS/ML) SYG SC SCH (08:50)
--- NOTE | 2018-08-20 09:43 | ERD ---
ER Documentation Chief Complaint Chief Complaint from [facility]: chills, bones aching, NVD since 1100. dm wound BLE ROS All systems reviewed and are negative except as per history of present illness. Medications Home Meds Reported Medications Albuterol Sulfate* (Ventolin HFA*) 18 Gm Hfa.aer.ad, 2 PUFF INHALATION Q6H, #1 INHALER 08/15/18 Metoprolol Tartrate* (Lopressor*) 25 Mg Tab, 25 MG PO BID, #60 TAB 08/09/18 Pantoprazole* (Pantoprazole*) 40 Mg Tablet.dr, 40 MG PO AC BREAKFAST, TAB 08/09/18 Diltiazem Hcl* (Diltiazem XT) 120 Mg Capsule.sa, 120 MG PO DAILY, #30 CAP 08/09/18 Amlodipine Besylate* (Norvasc*) 5 Mg Tablet, 5 MG PO DAILY, TAB 08/09/18 Buspirone Hcl* (Buspirone Hcl*) 10 Mg Tab, 10 MG PO TID, TAB 08/09/18 Furosemide* (Furosemide*) 20 Mg Tablet, 20 MG PO DAILY, #60 TAB 08/09/18 Gabapentin* (Gabapentin*) 300 Mg Capsule, 300 MG PO TID, #90 CAP 08/09/18 Methocarbamol* (Methocarbamol*) 500 Mg Tablet, 500 MG PO DAILY, TAB 08/09/18 Sevelamer Hcl* (Renagel*) 800 Mg Tablet, 1600 MG PO WITH MEALS, TAB 08/09/18 Apixaban* (Eliquis*) 5 Mg Tablet, 5 MG PO BID, TAB 08/09/18 Allergies Allergies: Coded Allergies: No Known Allergies (Verified Allergy, Unknown, 08/09/18) PMhx/Soc History of Surgery: Yes (bypass right leg, right ovary removal, KIRSTEN AV Fistula) Anesthesia Reaction: No Hx Neurological Disorder: Yes (neuropathy) Hx Respiratory Disorders: Yes (PNA, asthma) Hx Cardiac Disorders: Yes (HTN, PVD, cardiomegaly) Hx Psychiatric Problems: Yes (anxiety, depression) Hx Miscellaneous Medical Probl: No Hx Alcohol Use: No Hx Substance Use: No Hx Tobacco Use: Yes Smoking Status: Former smoker Physical Exam Physical Exam Const: No acute distress Head: Atraumatic Eyes: Normal Conjunctiva ENT: Normal External Ears, Nose and Mouth. Neck: Full range of motion. No meningismus. Resp: Clear to auscultation bilaterally Cardio: Regular rate and rhythm, no murmurs Abd: Soft, non tender, non distended. Normal bowel sounds Skin: No petechiae or rashes Back: No midline or flank tenderness Ext: No cyanosis, or edema Neur: Awake and alert Psych: Normal Mood and Affect Result Diagram: 08/20/18 0505 08/20/18 0505 Results 24 hrs Laboratory Tests Test 08/09/18 14:54 08/09/18 15:50 08/09/18 15:55 Bedside Glucose 111 mg/dL White Blood Count 6.5 10^3/ul Red Blood Count 3.20 10^6/ul Hemoglobin 11.1 g/dl Hematocrit 35.7 % Mean Corpuscular Volume 111.6 fl Mean Corpuscular Hemoglobin 34.7 pg Mean Corpuscular Hemoglobin Concent 31.1 g/dl Red Cell Distribution Width 16.8 % Platelet Count 149 10^3/UL Mean Platelet Volume 10.9 fl Immature Granulocytes % 0.300 % Neutrophils % 83.4 % Lymphocytes % 5.5 % Monocytes % 9.5 % Eosinophils % 1.1 % Basophils % 0.2 % Nucleated Red Blood Cells % 0.0 /100WBC Immature Granulocytes # 0.020 10^3/ul Neutrophils # 5.5 10^3/ul Lymphocytes # 0.4 10^3/ul Monocytes # 0.6 10^3/ul Eosinophils # 0.1 10^3/ul Basophils # 0.0 10^3/ul Nucleated Red Blood Cells # 0.0 10^3/ul Prothrombin Time 15.4 Sec Prothrombin Time Ratio 1.2 INR International Normalized Ratio 1.21 Activated Partial Thromboplast Time 37.1 Sec Sodium Level 141 mmol/L Potassium Level 6.0 mmol/L Chloride Level 100 mmol/L Carbon Dioxide Level 25 mmol/L Anion Gap 16 Blood Urea Nitrogen 66 mg/dl Creatinine 7.96 mg/dl Est Glomerular Filtrat Rate mL/min 5 mL/min Glucose Level 100 mg/dl Calcium Level 9.6 mg/dl Total Bilirubin 0.1 mg/dl Direct Bilirubin 0.00 mg/dl Indirect Bilirubin 0.1 mg/dl Aspartate Amino Transf (AST/SGOT) 20 IU/L Alanine Aminotransferase (ALT/SGPT) 10 IU/L Alkaline Phosphatase 116 IU/L Troponin I 0.230 ng/ml Total Protein 8.0 g/dl Albumin 4.3 g/dl Globulin 3.70 g/dl Albumin/Globulin Ratio 1.16 POC Venous Lactate 1.7 mmol/L Current Medications Medications Dose Sig/Kayla Start Time Status Last (Trade) Ordered Route PRN Stop Time Admin Dose Reason Admin 650 mg ONCE ONCE 08/09/18 DC 08/09/18 Acetaminophen PO 15:30 08/09/18 16:03 (Tylenol 15:31 Tab) 1.25 mg ONCE ONCE 08/09/18 DC 08/09/18 Levalbuterol HHN 17:00 08/09/18 17:59 (Xopenex 17:01 Neb) Ipratropium 0.5 mg ONCE ONCE 08/09/18 DC 08/09/18 [place] HHN 17:00 08/09/18 17:59 (Atrovent 17:01 0.02% (Neb)) Vancomycin 250 ml @ ONCE ONCE 08/09/18 DC 08/09/18 HCl 125 mls/hr IVPB 17:30 08/09/18 19:34 19:29 Cefepime HCl 50 ml @ ONCE ONCE 08/09/18 DC 08/09/18 100 mls/hr IVPB 17:30 08/09/18 17:42 17:59 Morphine 2 mg ONCE STAT 08/09/18 DC 08/09/18 Sulfate IV 17:04 08/09/18 17:16 (morphine) 17:07 Ondansetron 4 mg ONCE STAT 08/09/18 DC 08/09/18 HCl (Zofran IV 17:04 08/09/18 17:15 Inj) 17:07 Aspirin 162 mg ONCE ONCE 08/09/18 DC 08/09/18 (Aspirin) PO 17:30 08/09/18 19:34 17:31 Sodium 30 gm ONCE STAT 08/09/18 DC 08/09/18 Polystyrene PO 17:07 08/09/18 17:43 Sulfonate 17:19 (Kayexelate 15 Gm Kit (Powder+Sorbi shannon)) Albuterol 15 mg ONCE STAT 08/09/18 DC 08/09/18 (Proventil INH 17:07 08/09/18 17:44 0.5% (Neb)) 17:18 Insulin 10 unit ONCE STAT 08/09/18 DC 08/09/18 Human IVP 17:07 08/09/18 17:41 Regular 17:20 (Humulin R) Dextrose ONCE PRN 08/09/18 DC (D50w IV DECREASED 17:30 08/10/18 Syringe) GLUCOSE 17:29 Dextrose 100 ml ONCE ONCE 08/09/18 DC (D50w IV 17:30 08/09/18 Syringe) 17:31 Departure Diagnosis: Primary Impression: PNA (pneumonia) Additional Impressions: Anemia Elevated troponin Hyperkalemia Condition: Serious VIOLET RUDOLPH August 20, 2018 09:43
--- NOTE | 2018-08-20 10:28 | PN ---
Date/Time of Note Date/Time of Note DATE: 08/20/18 TIME: 09:43 Assessment/Plan VTE Prophylaxis Risk score (from [facility])>0 risk: 3 SCD applied (from [facility]): No SCD contraindicated: other Pharmacological prophylaxis: other Pharm contraindication: other Lines/Catheters IV Catheter Type (from [facility]): Saline Lock Urinary Cath still in place: No Assessment/Plan Assessment/Plan - BLE swelling/pain - venous doppler -Healthcare associated pneumonia, continue broad-spectrum antibiotics - Dr. Lucas is following in infection disease consultation. - CXR - showed increased congestion -Hyperkalemia- resolved -Dialysis dependent end-stage renal disease. Dr. Spicer is following in nephrology consultation. -Elevated troponin likely type 2 demand infarct in the setting of pneumonia, pt declined Stress test. Dr. William is following in cardiology consultation. -Atrial fibrillation, continue metoprolol and Eliquis. -Anemia of chronic disease, continue Epogen. -Diabetes mellitus type 2 with hemoglobin A1c of 6.5, continue Lantus and NovoLog -Peripheral vascular disease history of left lower extremity bypass surgery. -Right foot ulcer. Dr. Pineda is following and podiatry consultation. Disposition: to transitional living facility when symptoms resolve and cleared by consultants. Further recommendations based on clinical course. Plan of care discussed with Dr. Cordero. Result Diagram: 08/20/18 0505 08/20/18 0505 Results 24hrs Laboratory Tests Test 08/19/18 11:21 08/19/18 12:25 08/19/18 17:11 08/19/18 20:34 Bedside Glucose 175 281 H 204 Lab Scanned Report REFERENCE LAB Test 08/20/18 02:03 08/20/18 05:05 08/20/18 06:43 08/20/18 08:00 Bedside Glucose 235 H 192 192 White Blood Count 4.6 L Red Blood Count 2.84 L Hemoglobin 9.6 L Hematocrit 31.0 L Mean Corpuscular 109.2 H Volume Mean Corpuscular 33.8 H Hemoglobin Mean Corpuscular 31.0 L Hemoglobin Concent Red Cell 17.5 H Distribution Width Platelet Count 223 Mean Platelet 10.8 H Volume Immature 0.400 Granulocytes % Neutrophils % 63.3 Lymphocytes % 19.8 Monocytes % 12.4 H Eosinophils % 3.7 Basophils % 0.4 Nucleated Red 0.0 Blood Cells % Immature 0.020 Granulocytes # Neutrophils # 2.9 Lymphocytes # 0.9 Monocytes # 0.6 Eosinophils # 0.2 Basophils # 0.0 Nucleated Red 0.0 Blood Cells # Sodium Level 138 Potassium Level 5.0 Chloride Level 97 Carbon Dioxide 28 Level Anion Gap 13 Blood Urea 67 H Nitrogen Creatinine 6.54 H Est Glomerular 6 L Filtrat Rate mL/min Glucose Level 227 H Calcium Level 9.2 Subjective 24 Hr Interval Summary Free Text/Dictation Hyperglycemia c/o BLE pain- will get venous doppler c/o shortness of breath Constitutional: requiring O2 Eyes: no complaints ENT: no complaints Respiratory: shortness of breath Cardiovascular: no complaints Musculoskeletal: restricted range of motion, swelling Neurologic: no complaints Psychological: nl mood/affect Immunologic: no complaints Exam/Review of Systems Exam Vitals Vital Signs Date Temp Pulse Resp B/P (MAP) Pulse Ox O2 O2 Flow FiO2 Time Delivery Rate 08/20/18 83 08:08 08/20/18 97.4 20 146/64 96 Room Air 07:36 (91) 08/20/18 2.0 03:20 08/18/18 36 18:03 Intake and Output 08/19/18 08/19/18 08/20/18 1515:00 23:00 07:00 IntakeIntake Total 450 ml BalanceBalance 450 ml Constitutional: alert, well developed Psych: no complaints Head: normocephalic Eyes: nl lids, nl sclera ENMT: nl external ears & nose Neck: non-tender Respiratory: diminished breath sounds Cardiovascular: nl pulses, other (s1s2) Gastrointestinal: soft, non-tender Musculoskeletal: range of motion Extremities: edema Neurological: nl speech, other (alert/responsive) Lymph: nontender Results Results 24hrs Laboratory Tests Test 08/19/18 11:21 08/19/18 12:25 08/19/18 17:11 08/19/18 20:34 Bedside Glucose 175 281 H 204 Lab Scanned Report REFERENCE LAB Test 08/20/18 02:03 08/20/18 05:05 08/20/18 06:43 08/20/18 08:00 Bedside Glucose 235 H 192 192 White Blood Count 4.6 L Red Blood Count 2.84 L Hemoglobin 9.6 L Hematocrit 31.0 L Mean Corpuscular 109.2 H Volume Mean Corpuscular 33.8 H Hemoglobin Mean Corpuscular 31.0 L Hemoglobin Concent Red Cell 17.5 H Distribution Width Platelet Count 223 Mean Platelet 10.8 H Volume Immature 0.400 Granulocytes % Neutrophils % 63.3 Lymphocytes % 19.8 Monocytes % 12.4 H Eosinophils % 3.7 Basophils % 0.4 Nucleated Red 0.0 Blood Cells % Immature 0.020 Granulocytes # Neutrophils # 2.9 Lymphocytes # 0.9 Monocytes # 0.6 Eosinophils # 0.2 Basophils # 0.0 Nucleated Red 0.0 Blood Cells # Sodium Level 138 Potassium Level 5.0 Chloride Level 97 Carbon Dioxide 28 Level Anion Gap 13 Blood Urea 67 H Nitrogen Creatinine 6.54 H Est Glomerular 6 L Filtrat Rate mL/min Glucose Level 227 H Calcium Level 9.2 Medications Medication Current Medications Buspirone HCl (Buspar) 10 mg TID PO Last administered on 08/20/18 08:02; Start 08/10/18 at 09:00 Diltiazem HCl (Cardizem Cd) 120 mg DAILY PO Last administered on 08/18/18 08:26; Start 08/10/18 at 09:00 Gabapentin (Neurontin) 300 mg TID PO Last administered on 08/20/18 08:15; Start 08/10/18 at 09:00 Metoprolol Tartrate (Lopressor) 25 mg BID PO Last administered on 08/20/18 08:03; Start 08/10/18 at 09:00 Pantoprazole (Protonix Tab) 40 mg AC BREAKFAST PO Last administered on 08/20/18at 06:38; Start 08/10/18 at 07:00 Sevelamer Carbonate (Renvela) 1.6 gm WITH MEALS PO Last administered on 08/20/18 08:02; Start 08/10/18 at 08:00 Apixaban (Eliquis) 5 mg BID PO Last administered on 08/20/18 08:03; Start 08/10/18 at 09:00 Cefepime HCl 50 ml @ 100 mls/hr Q24H IVPB Last administered on 08/20/18 08:02; Start 08/10/18 at 09:00 Acetaminophen (Tylenol Tab) 650 mg Q6H PRN PO MILD PAIN(1-3)OR ELEVATED TEMP Last administered on 08/16/18at 02:21; Start 08/09/18 at 23:30 Morphine Sulfate (morphine) 2 mg Q4H PRN IV SEVERE PAIN LEVEL 7-10 Last administered on 08/11/18at 05:01; Start 08/09/18 at 23:30 Guaifenesin/ Codeine Phosphate (Robitussin Ac Liquid Cup) 10 ml Q4H PRN PO COUGH Last administered on 08/20/18at 00:10; Start 08/09/18 at 23:30 Miscellaneous Information 1 ea NOTE XX ; Start 08/10/18 at 05:30 Glucose (Glutose) 15 gm Q15M PRN PO DECREASED GLUCOSE; Start 08/10/18 at 05:30 Glucose (Glutose) 22.5 gm Q15M PRN PO DECREASED GLUCOSE; Start 08/10/18 at 05:30 Dextrose (D50w Syringe) 25 ml Q15M PRN IV DECREASED GLUCOSE; Start 08/10/18 at 05:30 Dextrose (D50w Syringe) 50 ml Q15M PRN IV DECREASED GLUCOSE Last administered on 08/13/18at 21:34; Start 08/10/18 at 05:30 Glucagon (Glucagen) 1 mg Q15M PRN IM DECREASED GLUCOSE; Start 08/10/18 at 05:30 Glucose (Glutose) 15 gm Q15M PRN BUCCAL DECREASED GLUCOSE Last administered on 08/14/18at 19:18; Start 08/10/18 at 05:30 Insulin Aspart (Novolog Insulin Pen) NOVOLOG *MILD* ALGORI... AC MEALS AND BEDTIME SC Last administered on 08/20/18at 06:51; Start 08/10/18 at 08:00 Diagnostic Test (Pha) (Accu-Chek) 1 ea 02 XX Last administered on 08/20/18at 02:05; Start 08/11/18 at 02:00 Insulin Aspart (Novolog Insulin Pen) 10 unit WITH MEALS SC Last administered on 08/20/18at 08:14; Start 08/11/18 at 08:00 Docusate Sodium (Colace) 100 mg DAILY PO Last administered on 08/20/18at 08:02; Start 08/12/18 at 09:00 Tramadol HCl (Ultram) 50 mg Q12H PRN PO PAIN; Start 08/11/18 at 13:30 Diclofenac Sodium (Voltaren 1% Gel) 2 gm BID TP Last administered on 08/20/18 08:05; Start 08/11/18 at 21:00 Acetaminophen/ Hydrocodone Bitart ([place] (5/325)) 1 tab Q4H PRN PO MODERATE PAIN LEVEL 4-6 Last administered on 08/20/18 00:10; Start 08/12/18 at 15:00 Isosorbide Dinitrate (Isordil) 10 mg TID PO Last administered on 08/19/18 21:00; Start 08/12/18 at 21:00 Lorazepam (Ativan) 1 mg Q6H PRN IV ANXIETY Last administered on 08/20/18 08:47; Start 08/12/18 at 22:30 Heparin Sodium (Porcine) (Heparin (1000 Units/ml)) 4,000 unit AFTER DIALYSIS CATHETER Last administered on 08/19/18 00:47; Start 08/13/18 at 16:30 Senna (Senokot) 2 tab BID PRN PO CONSTIPATION Last administered on 08/19/18 21:48; Start 08/14/18 at 12:00 Albuterol/ Ipratropium (Duoneb) 3 ml Q6H RESP THERAPY PRN HHN SHORTNESS OF BREATH Last administered on 08/20/18 03:20; Start 08/15/18 at 11:00 Ondansetron HCl (Zofran Inj) 4 mg Q6H PRN IV NAUSEA AND/OR VOMITING; Start 08/15/18 at 11:00 Epoetin Bam-epbx (Retacrit (Esrd)) 4,000 unit TuThSa@1700 SC Last administered on 08/17/18 16:43; Start 08/17/18 at 17:00 Multivit/Ca Carb/ B Cmplx/FA/Prenat (Addie-Mikayla) 1 tab DAILY PO Last administered on 08/20/18 08:02; Start 08/16/18 at 12:00 Hydrocortisone (Hydrocortisone 0.5% Cr) 1 applic BID PRN TOP ITCHING Last administered on 08/18/18 15:54; Start 08/16/18 at 22:30 Zolpidem Tartrate (Ambien) 5 mg HS PRN PO INSOMNIA Last administered on 08/19/18 00:25; Start 08/17/18 at 21:30 Clotrimazole (Clotrim 1% Vaginal Cr) 1 applic BID VAG Last administered on 08/20/18 08:15; Start 08/19/18 at 21:00; Stop 08/26/18 at 20:59 Hydralazine HCl (Apresoline) 25 mg Q8 PO Last administered on 08/20/18at 06:39; Start 08/19/18 at 14:00 Bumetanide (Bumex) 2 mg BID DIURETICS PO Last administered on 08/20/18at 06:38; Start 08/19/18 at 18:00 Insulin Glargine (Lantus) 22 units DAILY@0800 SC Last administered on 08/20/18at 08:50; Start 08/20/18 at 08:00 VIOLET RUDOLPH August 20, 2018 09:53
--- NOTE | 2018-08-20 12:14 | CONS ---
Assessment/Plan Assessment/Plan Hospital Course (Demo Recall) IMPRESSION: 1. Positive troponin, assess significance in the setting of renal failure, likely type 2 demand infarct in the setting of pneumonia. 2. Atrial fibrillation, rate controlled. 3. Abnormal electrocardiogram, assess for true acute coronary syndrome. 4. Hypertension, well controlled. 5. End-stage renal disease, on hemodialysis. 6. Nausea. 7. Left lower lobe pneumonia. 8. Peripheral arterial disease with nonhealing lower extremity ulcer. 9. CHF-disatolic acute on chronic Recc: -Tele -Continue dilt/BB with rate controlled AF as patient will comply -Increase hydralazine to improve BP -Contineu eliquis -Continue nitrates as patient will comply -continue abx's -Patient now agreeable to lexiscan to assess significance of positive troponin in the setting of renal failure -HD for volume removal -RX anxiety -Continue now Bumex at 2 mg po bid with HD -Continue abx's and f/u cx data Consultation Date/Type/Reason Admit Date/Time August 09, 2018 at 17:42 Initial Consult Date 08/10/18 Type of Consult Cardiology Reason for Consultation CHF/positive troponin Requesting Provider: KIRSTIN SPANN MD Date/Time of Note DATE: 08/20/18 TIME: 12:11 Exam/Review of Systems Vital Signs Vitals Vital Signs Date Temp Pulse Resp B/P (MAP) Pulse Ox O2 O2 Flow FiO2 Time Delivery Rate 08/20/18 97.8 98 20 144/91 97 Room Air 11:28 (108) 08/20/18 2.0 03:20 08/18/18 36 18:03 Intake and Output 08/19/18 08/19/18 08/20/18 1414:59 22:59 06:59 IntakeIntake Total 450 ml BalanceBalance 450 ml Exam Exam Review of Systems: CONSTITUTIONAL: No fevers, chills. PULMONARY: ongoing sob CARDIOVASCULAR: No chest pain/palpitations GASTROINTESTINAL: No nausea/vomiting. GENITOURINARY: No hematuria/dysuria. MUSCULOSKELETAL: No myagias/arthalgias. PSYCHIATRIC: The patient denies depression. NEUROLOGIC: No weakness Constitutional: alert Psych: no complaints Head: normocephalic ENMT: mucosa pink and moist Neck: supple, jvd (9-10 cm water ) Respiratory: diminished breath sounds (at bases/B) Cardiovascular: regular rate and rhythm Gastrointestinal: soft, non-tender Musculoskeletal: muscle tone (normal) Extremities: pitting pedal edema (bilateral) Neurological: other (no focal deficits) Labs Result Diagram: 08/20/18 0505 08/20/18 0505 Results 24hrs Laboratory Tests Test 08/19/18 12:25 08/19/18 17:11 08/19/18 20:34 08/20/18 02:03 Lab Scanned REFERENCE LAB Report Bedside Glucose 281 H 204 235 H Test 08/20/18 05:05 08/20/18 06:43 08/20/18 08:00 08/20/18 10:43 White Blood 4.6 L Count Red Blood Count 2.84 L Hemoglobin 9.6 L Hematocrit 31.0 L Mean Corpuscular 109.2 H Volume Mean Corpuscular 33.8 H Hemoglobin Mean Corpuscular 31.0 L Hemoglobin Carmela nt Red Cell 17.5 H Distribution Width Platelet Count 223 Mean Platelet 10.8 H Volume Immature 0.400 Granulocytes % Neutrophils % 63.3 Lymphocytes % 19.8 Monocytes % 12.4 H Eosinophils % 3.7 Basophils % 0.4 Nucleated Red 0.0 Blood Cells % Immature 0.020 Granulocytes # Neutrophils # 2.9 Lymphocytes # 0.9 Monocytes # 0.6 Eosinophils # 0.2 Basophils # 0.0 Nucleated Red 0.0 Blood Cells # Sodium Level 138 Potassium Level 5.0 Chloride Level 97 Carbon Dioxide 28 Level Anion Gap 13 Blood Urea 67 H Nitrogen Creatinine 6.54 H Est Glomerular 6 L Filtrat Rate mL/min Glucose Level 227 H Calcium Level 9.2 Bedside Glucose 192 192 Lab Scanned REFERENCE LAB Report Test 08/20/18 11:54 Bedside Glucose 134 Medications Medications Current Medications Buspirone HCl (Buspar) 10 mg TID PO Last administered on 08/20/18at 08:02; Admin Dose 10 MG; Start 08/10/18 at 09:00 Diltiazem HCl (Cardizem Cd) 120 mg DAILY PO Last administered on 08/20/18at 10:20; Admin Dose 120 MG; Start 08/10/18 at 09:00 Gabapentin (Neurontin) 300 mg TID PO Last administered on 08/20/18at 08:15; Admin Dose 300 MG; Start 08/10/18 at 09:00 Metoprolol Tartrate (Lopressor) 25 mg BID PO Last administered on 08/20/18 08:03; Admin Dose 25 MG; Start 08/10/18 at 09:00 Pantoprazole (Protonix Tab) 40 mg AC BREAKFAST PO Last administered on 08/20/18at 06:38; Admin Dose 40 MG; Start 08/10/18 at 07:00 Sevelamer Carbonate (Renvela) 1.6 gm WITH MEALS PO Last administered on 08/20/18 08:02; Admin Dose 1.6 GM; Start 08/10/18 at 08:00 Apixaban (Eliquis) 5 mg BID PO Last administered on 08/20/18 08:03; Admin Dose 5 MG; Start 08/10/18 at 09:00 Cefepime HCl 50 ml @ 100 mls/hr Q24H IVPB Last administered on 08/20/18 08:02; Admin Dose 100 MLS/HR; Start 08/10/18 at 09:00 Acetaminophen (Tylenol Tab) 650 mg Q6H PRN PO MILD PAIN(1-3)OR ELEVATED TEMP Last administered on 08/16/18at 02:21; Admin Dose 650 MG; Start 08/09/18 at 23:30 Morphine Sulfate (morphine) 2 mg Q4H PRN IV SEVERE PAIN LEVEL 7-10 Last administered on 08/11/18 05:01; Admin Dose 2 MG; Start 08/09/18 at 23:30 Guaifenesin/ Codeine Phosphate (Robitussin Ac Liquid Cup) 10 ml Q4H PRN PO COUGH Last administered on 08/20/18at 00:10; Admin Dose 10 ML; Start 08/09/18 at 23:30 Miscellaneous Information 1 ea NOTE XX ; Start 08/10/18 at 05:30 Glucose (Glutose) 15 gm Q15M PRN PO DECREASED GLUCOSE; Start 08/10/18 at 05:30 Glucose (Glutose) 22.5 gm Q15M PRN PO DECREASED GLUCOSE; Start 08/10/18 at 05:30 Dextrose (D50w Syringe) 25 ml Q15M PRN IV DECREASED GLUCOSE; Start 08/10/18 at 05:30 Dextrose (D50w Syringe) 50 ml Q15M PRN IV DECREASED GLUCOSE Last administered on 08/13/18at 21:34; Admin Dose 50 ML; Start 08/10/18 at 05:30 Glucagon (Glucagen) 1 mg Q15M PRN IM DECREASED GLUCOSE; Start 08/10/18 at 05:30 Glucose (Glutose) 15 gm Q15M PRN BUCCAL DECREASED GLUCOSE Last administered on 08/14/18 19:18; Admin Dose 15 GM; Start 08/10/18 at 05:30 Insulin Aspart (Novolog Insulin Pen) NOVOLOG *MILD* ALGORI... AC MEALS AND BEDTIME SC Last administered on 08/20/18 06:51; Admin Dose 1 UNIT; Start 08/10/18 at 08:00 Diagnostic Test (Pha) (Accu-Chek) 1 ea 02 XX Last administered on 08/20/18 02:05; Admin Dose 1 EA; Start 08/11/18 at 02:00 Insulin Aspart (Novolog Insulin Pen) 10 unit WITH MEALS SC Last administered on 08/20/18 12:00; Admin Dose 10 UNIT; Start 08/11/18 at 08:00 Docusate Sodium (Colace) 100 mg DAILY PO Last administered on 08/20/18 08:02; Admin Dose 100 MG; Start 08/12/18 at 09:00 Tramadol HCl (Ultram) 50 mg Q12H PRN PO PAIN; Start 08/11/18 at 13:30 Diclofenac Sodium (Voltaren 1% Gel) 2 gm BID TP Last administered on 08/20/18 08:05; Admin Dose 2 GM; Start 08/11/18 at 21:00 Acetaminophen/ Hydrocodone Bitart ([place] (5/325)) 1 tab Q4H PRN PO MODERATE PAIN LEVEL 4-6 Last administered on 08/20/18 00:10; Admin Dose 1 TAB; Start 08/12/18 at 15:00 Isosorbide Dinitrate (Isordil) 10 mg TID PO Last administered on 08/20/18 10:21; Admin Dose 10 MG; Start 08/12/18 at 21:00 Lorazepam (Ativan) 1 mg Q6H PRN IV ANXIETY Last administered on 08/20/18 08:47; Admin Dose 1 MG; Start 08/12/18 at 22:30 Heparin Sodium (Porcine) (Heparin (1000 Units/ml)) 4,000 unit AFTER DIALYSIS CATHETER Last administered on 08/19/18 00:47; Admin Dose 2,300 UNIT; Start 08/13/18 at 16:30 Senna (Senokot) 2 tab BID PRN PO CONSTIPATION Last administered on 08/19/18 21:48; Admin Dose 2 TAB; Start 08/14/18 at 12:00 Albuterol/ Ipratropium (Duoneb) 3 ml Q6H RESP THERAPY PRN HHN SHORTNESS OF BREATH Last administered on 08/20/18 03:20; Admin Dose 3 ML; Start 08/15/18 at 11:00 Ondansetron HCl (Zofran Inj) 4 mg Q6H PRN IV NAUSEA AND/OR VOMITING; Start 08/15/18 at 11:00 Epoetin Bam-epbx (Retacrit (Esrd)) 4,000 unit TuThSa@1700 SC Last administered on 08/17/18 16:43; Admin Dose 4,000 UNIT; Start 08/17/18 at 17:00 Multivit/Ca Carb/ B Cmplx/FA/Prenat (Addie-Mikayla) 1 tab DAILY PO Last administered on 08/20/18 08:02; Admin Dose 1 TAB; Start 08/16/18 at 12:00 Hydrocortisone (Hydrocortisone 0.5% Cr) 1 applic BID PRN TOP ITCHING Last administered on 08/18/18 15:54; Admin Dose 1 APPLIC; Start 08/16/18 at 22:30 Zolpidem Tartrate (Ambien) 5 mg HS PRN PO INSOMNIA Last administered on 08/19/18 00:25; Admin Dose 5 MG; Start 08/17/18 at 21:30 Clotrimazole (Clotrim 1% Vaginal Cr) 1 applic BID VAG Last administered on 08/20/18 08:15; Admin Dose 1 APPLIC; Start 08/19/18 at 21:00; Stop 08/26/18 at 20:59 Hydralazine HCl (Apresoline) 25 mg Q8 PO Last administered on 08/20/18 06:39; Admin Dose 25 MG; Start 08/19/18 at 14:00 Bumetanide (Bumex) 2 mg BID DIURETICS PO Last administered on 08/20/18 06:38; Admin Dose 2 MG; Start 08/19/18 at 18:00 Insulin Glargine (Lantus) 22 units DAILY@0800 SC Last administered on 08/20/18at 08:50; Admin Dose 22 UNITS; Start 08/20/18 at 08:00 GERTRUDIS GUILLERMO August 20, 2018 12:14
--- NOTE | 2018-08-20 14:02 | CONS ---
Assessment/Plan Assessment/Plan Hospital Course (Demo Recall) - S/p sepsis d/t HCAP - fever and tachycardia resolved - HCAP - slowly improving - Likely underlying fluid overload - ESRD on HD T-T-S - Hyperkalemia - Elevated troponin - H/o non-healing diabetic R foot ulceration with infection at site of recent debridement; cultures grew MSSA and Enterococcus (ESR 93) - S/p excisional sharp debridement of the right first toe involving skin and subcutaneous tissue on 06/11/2017 - Evidence of osteomyelitis at the remnant of the first distal phalanx per MRI R foot 06/24/2017 - DM with hypoglycemic episode - Hgb A1c 6.5% - Diabetic neuropathy - H/o diabetic foot infections/OM of b/l feet, s/p amputation of R two toes - H/o central stenosis with apparent recent re-vascularization - S/p placement of L IJ HD catheter 06/20/2017 - PVD - H/o LLE bypass - CHF and CAD - Anemia of chronic kidney disease - Morbid obesity - BMI 39.9 - H/o dysphagia, Group A pharyngitis screen was negative - H/o mildly dilated esophagus on CT (11/2016) and multiple distal erosive lesions in the distal esophagus per EGD (11/27/2016; path negative) - 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 Pt's sinuses are non-TTP. On a trial of renally dosed oseltamivir (06/30/2017-) ResultedL respiratory virus panel (negative) Recommendations: - Monitor closely off antibiotics - S/p Cefepime (08/09/2018-08/18/18) - consider short course of prednisone - Pending: pertussis DFA - still pending Plan was directed to PROPERTY MANAGEMENT COORDINATOR via [employer] yesterday. Consultation Date/Type/Reason Admit Date/Time August 09, 2018 at 17:42 Initial Consult Date Type of Consult id Requesting Provider: KIRSTIN SPANN MD Date/Time of Note DATE: 08/20/18 TIME: 14:00 Exam/Review of Systems Exam Vitals Vital Signs Date Temp Pulse Resp B/P (MAP) Pulse Ox O2 O2 Flow FiO2 Time Delivery Rate 08/20/18 90 13:09 08/20/18 97.8 20 144/91 97 Room Air 11:28 (108) 08/20/18 2.0 03:20 08/18/18 36 18:03 Intake and Output 08/19/18 08/19/18 08/20/18 1515:00 23:00 07:00 IntakeIntake Total 450 ml BalanceBalance 450 ml Constitutional: alert, other (very anxious) Psych: no complaints Head: normocephalic, atraumatic Eyes: EOMI Neck: supple Respiratory: wheezing Cardiovascular: regular rate and rhythm Gastrointestinal: soft Neurological: ANALYTICS ASSOCIATE II-XII intact Results Result Diagram: 08/20/18 0505 08/20/18 0505 Results 24hrs Laboratory Tests Test 08/19/18 17:11 08/19/18 20:34 08/20/18 02:03 08/20/18 05:05 Bedside Glucose 281 H 204 235 H White Blood Count 4.6 L Red Blood Count 2.84 L Hemoglobin 9.6 L Hematocrit 31.0 L Mean Corpuscular 109.2 H Volume Mean Corpuscular 33.8 H Hemoglobin Mean Corpuscular 31.0 L Hemoglobin Concent Red Cell 17.5 H Distribution Width Platelet Count 223 Mean Platelet 10.8 H Volume Immature 0.400 Granulocytes % Neutrophils % 63.3 Lymphocytes % 19.8 Monocytes % 12.4 H Eosinophils % 3.7 Basophils % 0.4 Nucleated Red 0.0 Blood Cells % Immature 0.020 Granulocytes # Neutrophils # 2.9 Lymphocytes # 0.9 Monocytes # 0.6 Eosinophils # 0.2 Basophils # 0.0 Nucleated Red 0.0 Blood Cells # Sodium Level 138 Potassium Level 5.0 Chloride Level 97 Carbon Dioxide 28 Level Anion Gap 13 Blood Urea 67 H Nitrogen Creatinine 6.54 H Est Glomerular 6 L Filtrat Rate mL/min Glucose Level 227 H Calcium Level 9.2 Test 08/20/18 06:43 08/20/18 08:00 08/20/18 10:43 08/20/18 11:54 Bedside Glucose 192 192 134 Lab Scanned Report REFERENCE LAB Medications Medication Current Medications Buspirone HCl (Buspar) 10 mg TID PO Last administered on 08/20/18at 12:28; Admin Dose 10 MG; Start 08/10/18 at 09:00 Diltiazem HCl (Cardizem Cd) 120 mg DAILY PO Last administered on 08/20/18 10:20; Admin Dose 120 MG; Start 08/10/18 at 09:00 Gabapentin (Neurontin) 300 mg TID PO Last administered on 08/20/18 12:28; Admin Dose 300 MG; Start 08/10/18 at 09:00 Metoprolol Tartrate (Lopressor) 25 mg BID PO Last administered on 08/20/18 08:03; Admin Dose 25 MG; Start 08/10/18 at 09:00 Pantoprazole (Protonix Tab) 40 mg AC BREAKFAST PO Last administered on 08/20/18 06:38; Admin Dose 40 MG; Start 08/10/18 at 07:00 Sevelamer Carbonate (Renvela) 1.6 gm WITH MEALS PO Last administered on 08/20/18 12:28; Admin Dose 1.6 GM; Start 08/10/18 at 08:00 Apixaban (Eliquis) 5 mg BID PO Last administered on 08/20/18 08:03; Admin Dose 5 MG; Start 08/10/18 at 09:00 Cefepime HCl 50 ml @ 100 mls/hr Q24H IVPB Last administered on 08/20/18 08:02; Admin Dose 100 MLS/HR; Start 08/10/18 at 09:00 Acetaminophen (Tylenol Tab) 650 mg Q6H PRN PO MILD PAIN(1-3)OR ELEVATED TEMP Last administered on 08/16/18 02:21; Admin Dose 650 MG; Start 08/09/18 at 23:30 Morphine Sulfate (morphine) 2 mg Q4H PRN IV SEVERE PAIN LEVEL 7-10 Last administered on 08/11/18 05:01; Admin Dose 2 MG; Start 08/09/18 at 23:30 Guaifenesin/ Codeine Phosphate (Robitussin Ac Liquid Cup) 10 ml Q4H PRN PO COUGH Last administered on 08/20/18 00:10; Admin Dose 10 ML; Start 08/09/18 at 23:30 Miscellaneous Information 1 ea NOTE XX ; Start 08/10/18 at 05:30 Glucose (Glutose) 15 gm Q15M PRN PO DECREASED GLUCOSE; Start 08/10/18 at 05:30 Glucose (Glutose) 22.5 gm Q15M PRN PO DECREASED GLUCOSE; Start 08/10/18 at 05:30 Dextrose (D50w Syringe) 25 ml Q15M PRN IV DECREASED GLUCOSE; Start 08/10/18 at 05:30 Dextrose (D50w Syringe) 50 ml Q15M PRN IV DECREASED GLUCOSE Last administered on 08/13/18at 21:34; Admin Dose 50 ML; Start 08/10/18 at 05:30 Glucagon (Glucagen) 1 mg Q15M PRN IM DECREASED GLUCOSE; Start 08/10/18 at 05:30 Glucose (Glutose) 15 gm Q15M PRN BUCCAL DECREASED GLUCOSE Last administered on 08/14/18 19:18; Admin Dose 15 GM; Start 08/10/18 at 05:30 Insulin Aspart (Novolog Insulin Pen) NOVOLOG *MILD* ALGORI... AC MEALS AND BEDTIME SC Last administered on 08/20/18 06:51; Admin Dose 1 UNIT; Start 08/10/18 at 08:00 Diagnostic Test (Pha) (Accu-Chek) 1 ea 02 XX Last administered on 08/20/18at 02:05; Admin Dose 1 EA; Start 08/11/18 at 02:00 Insulin Aspart (Novolog Insulin Pen) 10 unit WITH MEALS SC Last administered on 08/20/18 12:00; Admin Dose 10 UNIT; Start 08/11/18 at 08:00 Docusate Sodium (Colace) 100 mg DAILY PO Last administered on 08/20/18 08:02; Admin Dose 100 MG; Start 08/12/18 at 09:00 Tramadol HCl (Ultram) 50 mg Q12H PRN PO PAIN; Start 08/11/18 at 13:30 Diclofenac Sodium (Voltaren 1% Gel) 2 gm BID TP Last administered on 08/20/18 08:05; Admin Dose 2 GM; Start 08/11/18 at 21:00 Acetaminophen/ Hydrocodone Bitart ([place] (5/325)) 1 tab Q4H PRN PO MODERATE PAIN LEVEL 4-6 Last administered on 08/20/18at 00:10; Admin Dose 1 TAB; Start 08/12/18 at 15:00 Isosorbide Dinitrate (Isordil) 10 mg TID PO Last administered on 08/20/18at 12:28; Admin Dose 10 MG; Start 08/12/18 at 21:00 Lorazepam (Ativan) 1 mg Q6H PRN IV ANXIETY Last administered on 08/20/18 08:47; Admin Dose 1 MG; Start 08/12/18 at 22:30 Heparin Sodium (Porcine) (Heparin (1000 Units/ml)) 4,000 unit AFTER DIALYSIS CATHETER Last administered on 08/19/18 00:47; Admin Dose 2,300 UNIT; Start 08/13/18 at 16:30 Senna (Senokot) 2 tab BID PRN PO CONSTIPATION Last administered on 08/19/18 21:48; Admin Dose 2 TAB; Start 08/14/18 at 12:00 Albuterol/ Ipratropium (Duoneb) 3 ml Q6H RESP THERAPY PRN HHN SHORTNESS OF BREATH Last administered on 08/20/18 03:20; Admin Dose 3 ML; Start 08/15/18 at 11:00 Ondansetron HCl (Zofran Inj) 4 mg Q6H PRN IV NAUSEA AND/OR VOMITING; Start 08/15/18 at 11:00 Epoetin Bam-epbx (Retacrit (Esrd)) 4,000 unit TuThSa@1700 SC Last administered on 08/17/18 16:43; Admin Dose 4,000 UNIT; Start 08/17/18 at 17:00 Multivit/Ca Carb/ B Cmplx/FA/Prenat (Addie-Mikayla) 1 tab DAILY PO Last administered on 08/20/18 08:02; Admin Dose 1 TAB; Start 08/16/18 at 12:00 Hydrocortisone (Hydrocortisone 0.5% Cr) 1 applic BID PRN TOP ITCHING Last administered on 08/18/18at 15:54; Admin Dose 1 APPLIC; Start 08/16/18 at 22:30 Zolpidem Tartrate (Ambien) 5 mg HS PRN PO INSOMNIA Last administered on 08/19/18 00:25; Admin Dose 5 MG; Start 08/17/18 at 21:30 Clotrimazole (Clotrim 1% Vaginal Cr) 1 applic BID VAG Last administered on 08/20/18 08:15; Admin Dose 1 APPLIC; Start 08/19/18 at 21:00; Stop 08/26/18 at 20:59 Bumetanide (Bumex) 2 mg BID DIURETICS PO Last administered on 08/20/18at 06:38; Admin Dose 2 MG; Start 08/19/18 at 18:00 Insulin Glargine (Lantus) 22 units DAILY@0800 SC Last administered on 08/20/18at 08:50; Admin Dose 22 UNITS; Start 08/20/18 at 08:00 Hydralazine HCl (Apresoline) 50 mg Q8 PO ; Start 08/20/18 at 14:00 BONITA RUBIO MD August 20, 2018 14:02
--- NOTE | 2018-08-20 14:31 | CONS ---
DATE OF ADMISSION: 08/09/2018 DATE OF CONSULTATION: 08/09/2018 TYPE OF CONSULTATION: Pulmonary. REASON FOR CONSULTATION: Shortness of breath. Thank you, Dr. Cordero, for this consultation. HISTORY OF PRESENT ILLNESS: This is a 58-year-old lady with end-stage renal failure on hemodialysis. Extensive tobacco history consistent with COPD originally presented on 08/09/2018 with fever, chill s, nausea, mild dyspnea since this admission, she has had worsening respiratory distress. Per ifeanyi t, she had pneumonia in June of this year at that time and had chest tube placement. She has been e xperiencing worsening shortness of breath and cough and congestion. Chest x-ray shows mild pulmonary edema, possible left-sided infiltrate. She has an extensive tobacco history, previously smoked 1 to 2 packs per day, quit smoking approximately 10 years ago. PAST MEDICAL HISTORY: 1. Morbid obesity. 2. End-stage renal failure on hemodialysis. 3. Diabetes mellitus. 4. Peripheral vascular disease status post lower extremity bypass graft surgery. 5. History of amputations secondary to peripheral vascular disease. MEDICATIONS: Per chart. ALLERGIES: None. SOCIAL HISTORY: Ex-smoker, no alcohol, no history of drug use. FAMILY HISTORY: Noncontributory. SYSTEMS REVIEW: A 12-point review of systems was negative other than that mentioned above. PHYSICAL EXAMINATION: GENERAL: Elderly-appearing lady, comfortable at rest, sitting up, with no accessory muscle use, talk ing in full and complete sentences. VITAL SIGNS: Currently afebrile, pulse is 97, pulse is 90, blood pressure 140/90, O2 saturation 96% on room air. NECK: Supple. No JVD or lymphadenopathy. CARDIAC: S1, S2, no added sounds or murmurs. CHEST: Diminished air entry, left base. ABDOMEN: Soft, nontender. No guarding or rebound. EXTREMITIES: No cyanosis, clubbing, 1+ edema. NEUROLOGIC: Grossly intact. No focal deficits. LABORATORY DATA: White count 4.6, hemoglobin 9.6, platelets of 233. BUN 67, creatinine 6.54. INR 1 .21. Chest x-ray findings as above. IMPRESSION AND PLAN: 1. Worsening hypoxemia likely secondary to increased volume overload. 2. End-stage renal failure on hemodialysis. 3. Likely moderate to severe chronic obstructive pulmonary disease. 4. Probable obstructive sleep apnea. 5. Essential hypertension. 6. Diabetes mellitus. PLAN: 1. Continue volume removal as tolerated. 2. Outpatient pulmonary function testing. 3. Bronchodilators. 4. Outpatient sleep study. 5. DVT and GI prophylaxis. Dictated By: DIONISIO CONTRERAS MD SV/MAURICIO Conf#: [id number] DID#: [id number] CC: KIRSTIN CORDERO MD;*EndCC*
--- NOTE | 2018-08-20 14:51 | CONS ---
[facility] HCIS Consult Follow-up Patient Name: Nikki Petit Unit Number: [id number] Date of : 1960 Patient Status: Admitted Inpatient Attending Doctor: Kirstin Spann MD Edit: DARELL JAMES MD on 08/20/18 @ 15:40 hd today dry uf tmw Assessment/Plan Assessment/Plan Hospital Course (Demo Recall) 1. End-stage renal disease, Thursday, , Thursday. 2. Hyperkalemia, resolving with HD. 3. Elevated troponin. Patient has history of end-stage renal disease. 4. History of peripheral vascular disease. 5. Pneumonia, 6. Anemia, likely anemia of chronic disease. 7. Peripheral vascular disease status post bypass of the left lower extremity. 8. Right foot ulcer with infection at the site of recent debridement. Cultures grew MRSA and Enterococcus. 9. History of central stenosis with apparent revascularization. 10. Status post placement of left IJ Permcath 06/2017. 11. Obesity Assessment/Plan (Daily) -c.w HD -renally dose drugs -c/w Epogen Consultation Date/Type/Reason Admit Date/Time August 09, 2018 at 17:42 Initial Consult Date 08/10/18 Type of Consult 08/11/2018 Requesting Provider: KIRSTIN SPANN MD Date/Time of Note DATE: 08/20/18 TIME: 14:50 24 HR Interval Summary Constitutional: requiring O2, other (weakness) Exam/Review of Systems Exam Vitals Vital Signs Date Temp Pulse Resp B/P (MAP) Pulse Ox O2 O2 Flow FiO2 Time Delivery Rate 08/20/18 90 13:09 08/20/18 97.8 20 144/91 97 Room Air 11:28 (108) 08/20/18 2.0 03:20 08/18/18 36 18:03 Intake and Output 08/19/18 08/19/18 08/20/18 1515:00 23:00 07:00 IntakeIntake Total 450 ml BalanceBalance 450 ml Exam left chest Permcath Constitutional: alert, oriented Neck: supple Respiratory: diminished breath sounds Cardiovascular: regular rate and rhythm Gastrointestinal: soft Results Result Diagram: 08/20/18 0505 08/20/18 0505 Results 24hrs Laboratory Tests Test 08/19/18 17:11 08/19/18 20:34 08/20/18 02:03 08/20/18 05:05 Bedside Glucose 281 H 204 235 H White Blood Count 4.6 L Red Blood Count 2.84 L Hemoglobin 9.6 L Hematocrit 31.0 L Mean Corpuscular 109.2 H Volume Mean Corpuscular 33.8 H Hemoglobin Mean Corpuscular 31.0 L Hemoglobin Concent Red Cell 17.5 H Distribution Width Platelet Count 223 Mean Platelet 10.8 H Volume Immature 0.400 Granulocytes % Neutrophils % 63.3 Lymphocytes % 19.8 Monocytes % 12.4 H Eosinophils % 3.7 Basophils % 0.4 Nucleated Red 0.0 Blood Cells % Immature 0.020 Granulocytes # Neutrophils # 2.9 Lymphocytes # 0.9 Monocytes # 0.6 Eosinophils # 0.2 Basophils # 0.0 Nucleated Red 0.0 Blood Cells # Sodium Level 138 Potassium Level 5.0 Chloride Level 97 Carbon Dioxide 28 Level Anion Gap 13 Blood Urea 67 H Nitrogen Creatinine 6.54 H Est Glomerular 6 L Filtrat Rate mL/min Glucose Level 227 H Calcium Level 9.2 Test 08/20/18 06:43 08/20/18 08:00 08/20/18 10:43 08/20/18 11:54 Bedside Glucose 192 192 134 Lab Scanned Report REFERENCE LAB Medications Medication Current Medications Buspirone HCl (Buspar) 10 mg TID PO Last administered on 08/20/18at 12:28; Admin Dose 10 MG; Start 08/10/18 at 09:00 Diltiazem HCl (Cardizem Cd) 120 mg DAILY PO Last administered on 08/20/18at 10:20; Admin Dose 120 MG; Start 08/10/18 at 09:00 Gabapentin (Neurontin) 300 mg TID PO Last administered on 08/20/18at 12:28; Admin Dose 300 MG; Start 08/10/18 at 09:00 Metoprolol Tartrate (Lopressor) 25 mg BID PO Last administered on 08/20/18at 08:03; Admin Dose 25 MG; Start 08/10/18 at 09:00 Pantoprazole (Protonix Tab) 40 mg AC BREAKFAST PO Last administered on 08/20/18at 06:38; Admin Dose 40 MG; Start 08/10/18 at 07:00 Sevelamer Carbonate (Renvela) 1.6 gm WITH MEALS PO Last administered on 08/20/18at 12:28; Admin Dose 1.6 GM; Start 08/10/18 at 08:00 Apixaban (Eliquis) 5 mg BID PO Last administered on 08/20/18at 08:03; Admin Dose 5 MG; Start 08/10/18 at 09:00 Acetaminophen (Tylenol Tab) 650 mg Q6H PRN PO MILD PAIN(1-3)OR ELEVATED TEMP Last administered on 08/16/18at 02:21; Admin Dose 650 MG; Start 08/09/18 at 23:30 Morphine Sulfate (morphine) 2 mg Q4H PRN IV SEVERE PAIN LEVEL 7-10 Last administered on 08/11/18at 05:01; Admin Dose 2 MG; Start 08/09/18 at 23:30 Guaifenesin/ Codeine Phosphate (Robitussin Ac Liquid Cup) 10 ml Q4H PRN PO COUGH Last administered on 08/20/18at 00:10; Admin Dose 10 ML; Start 08/09/18 at 23:30 Miscellaneous Information 1 ea NOTE XX ; Start 08/10/18 at 05:30 Glucose (Glutose) 15 gm Q15M PRN PO DECREASED GLUCOSE; Start 08/10/18 at 05:30 Glucose (Glutose) 22.5 gm Q15M PRN PO DECREASED GLUCOSE; Start 08/10/18 at 05:30 Dextrose (D50w Syringe) 25 ml Q15M PRN IV DECREASED GLUCOSE; Start 08/10/18 at 05:30 Dextrose (D50w Syringe) 50 ml Q15M PRN IV DECREASED GLUCOSE Last administered on 08/13/18at 21:34; Admin Dose 50 ML; Start 08/10/18 at 05:30 Glucagon (Glucagen) 1 mg Q15M PRN IM DECREASED GLUCOSE; Start 08/10/18 at 05:30 Glucose (Glutose) 15 gm Q15M PRN BUCCAL DECREASED GLUCOSE Last administered on 08/14/18 19:18; Admin Dose 15 GM; Start 08/10/18 at 05:30 Insulin Aspart (Novolog Insulin Pen) NOVOLOG *MILD* ALGORI... AC MEALS AND BEDTIME SC Last administered on 08/20/18 06:51; Admin Dose 1 UNIT; Start 08/10/18 at 08:00 Diagnostic Test (Pha) (Accu-Chek) 1 ea 02 XX Last administered on 08/20/18 02:05; Admin Dose 1 EA; Start 08/11/18 at 02:00 Insulin Aspart (Novolog Insulin Pen) 10 unit WITH MEALS SC Last administered on 08/20/18 12:00; Admin Dose 10 UNIT; Start 08/11/18 at 08:00 Docusate Sodium (Colace) 100 mg DAILY PO Last administered on 08/20/18 08:02; Admin Dose 100 MG; Start 08/12/18 at 09:00 Tramadol HCl (Ultram) 50 mg Q12H PRN PO PAIN; Start 08/11/18 at 13:30 Diclofenac Sodium (Voltaren 1% Gel) 2 gm BID TP Last administered on 08/20/18 08:05; Admin Dose 2 GM; Start 08/11/18 at 21:00 Acetaminophen/ Hydrocodone Bitart ([place] (5/325)) 1 tab Q4H PRN PO MODERATE PAIN LEVEL 4-6 Last administered on 08/20/18 00:10; Admin Dose 1 TAB; Start 08/12/18 at 15:00 Isosorbide Dinitrate (Isordil) 10 mg TID PO Last administered on 08/20/18 12:28; Admin Dose 10 MG; Start 08/12/18 at 21:00 Lorazepam (Ativan) 1 mg Q6H PRN IV ANXIETY Last administered on 08/20/18 08:47; Admin Dose 1 MG; Start 08/12/18 at 22:30 Heparin Sodium (Porcine) (Heparin (1000 Units/ml)) 4,000 unit AFTER DIALYSIS CATHETER Last administered on 08/19/18 00:47; Admin Dose 2,300 UNIT; Start 08/13/18 at 16:30 Senna (Senokot) 2 tab BID PRN PO CONSTIPATION Last administered on 08/19/18 21:48; Admin Dose 2 TAB; Start 08/14/18 at 12:00 Albuterol/ Ipratropium (Duoneb) 3 ml Q6H RESP THERAPY PRN HHN SHORTNESS OF BREATH Last administered on 08/20/18 03:20; Admin Dose 3 ML; Start 08/15/18 at 11:00 Ondansetron HCl (Zofran Inj) 4 mg Q6H PRN IV NAUSEA AND/OR VOMITING; Start 08/15/18 at 11:00 Epoetin Bam-epbx (Retacrit (Esrd)) 4,000 unit TuThSa@1700 SC Last administered on 08/17/18 16:43; Admin Dose 4,000 UNIT; Start 08/17/18 at 17:00 Multivit/Ca Carb/ B Cmplx/FA/Prenat (Addie-Mikayla) 1 tab DAILY PO Last administered on 08/20/18 08:02; Admin Dose 1 TAB; Start 08/16/18 at 12:00 Hydrocortisone (Hydrocortisone 0.5% Cr) 1 applic BID PRN TOP ITCHING Last administered on 08/18/18at 15:54; Admin Dose 1 APPLIC; Start 08/16/18 at 22:30 Zolpidem Tartrate (Ambien) 5 mg HS PRN PO INSOMNIA Last administered on 08/19/18 00:25; Admin Dose 5 MG; Start 08/17/18 at 21:30 Clotrimazole (Clotrim 1% Vaginal Cr) 1 applic BID VAG Last administered on 08/20/18 08:15; Admin Dose 1 APPLIC; Start 08/19/18 at 21:00; Stop 08/26/18 at 20:59 Bumetanide (Bumex) 2 mg BID DIURETICS PO Last administered on 08/20/18at 06:38; Admin Dose 2 MG; Start 08/19/18 at 18:00 Insulin Glargine (Lantus) 22 units DAILY@0800 SC Last administered on 08/20/18at 08:50; Admin Dose 22 UNITS; Start 08/20/18 at 08:00 Hydralazine HCl (Apresoline) 50 mg Q8 PO ; Start 08/20/18 at 14:00 KUNAL RAMOS August 20, 2018 14:51
[2018-08-20] MEDS: ACETAMINOPHEN 325 MG TAB PO PRN (18:05)
[2018-08-20] MEDS: HEPARIN 1000 UNITS/ML 10 ML INJ CATHETER SCH (20:43)
[2018-08-20] MEDS: HYDROCORTISONE 0.5% 28.35 GM CR TOP PRN (20:52)
[2018-08-21] VITALS (23 sets, daily range): BP systolic 103–182; BP diastolic 48–81; PULSE 54–82; RESP 16–20
[2018-08-21] MEDS: ACCU-CHEK XX SCH (01:25)
[2018-08-21] MEDS: BUMETANIDE 1 MG TAB PO SCH ×2 (06:06→17:45)
[2018-08-21] MEDS: PANTOPRAZOLE (EC) 40 MG TAB PO SCH (06:06)
[2018-08-21] MEDS: SEVELAMER CARBONATE 0.8 GM PKT PO SCH ×3 (08:00→17:45)
[2018-08-21] MEDS: INSULIN ASPART [NOVOLOG] 3 ML PEN SC SCH ×7 (08:00→21:00)
[2018-08-21] MEDS: GUAIFENESIN/CODEINE 5ML CUP PO PRN ×2 (08:16→20:32)
[2018-08-21] MEDS: GABAPENTIN 300 MG CAP PO SCH ×3 (08:20→20:22)
[2018-08-21] MEDS: APIXABAN 5 MG TABLET PO SCH ×2 (08:20→20:22)
[2018-08-21] MEDS: MULTIVIT/CA CARB/B CMPLX/FA TAB PO SCH (08:20)
[2018-08-21] MEDS: HYDROCODONE/APAP (5/325) TAB PO PRN ×3 (08:20→20:21)
[2018-08-21] MEDS: DOCUSATE SODIUM 100 MG CAP PO SCH (08:21)
[2018-08-21] MEDS: BUSPIRONE 10 MG TAB PO SCH ×3 (08:21→20:21)
[2018-08-21] MEDS: METOPROLOL 25 MG TAB PO SCH ×2 (08:22→20:23)
[2018-08-21] MEDS: INSULIN GLARGINE [LANTus] (100 UNITS/ML) SYG SC SCH (08:28)
[2018-08-21] MEDS: ISOSORBIDE DINITRATE 10 MG TAB PO SCH ×3 (08:44→21:00)
[2018-08-21] MEDS: DILTIAZEM (CD) 120 MG CAP PO SCH (08:44)
[2018-08-21] MEDS: CLOTRIMAZOLE 1% 45 GM VAG CR VAG SCH ×2 (09:03→20:24)
[2018-08-21] MEDS: DICLOFENAC SODIUM 1% GEL 100 GM TUBE TP SCH ×2 (09:03→20:23)
--- NOTE | 2018-08-21 09:03 | CONS ---
Assessment/Plan Assessment/Plan Hospital Course (Demo Recall) - S/p sepsis d/t HCAP - fever and tachycardia resolved - HCAP - slowly improving - Likely underlying fluid overload - Per CXR 08/21/18 Questionable 1.4 cm right lower lobe nodular opacity. Follow- up CT chest is recommended. - ESRD on HD T-T-S - Hyperkalemia - Elevated troponin - H/o non-healing diabetic R foot ulceration with infection at site of recent debridement; cultures grew MSSA and Enterococcus (ESR 93) - S/p excisional sharp debridement of the right first toe involving skin and subcutaneous tissue on 06/11/2017 - Evidence of osteomyelitis at the remnant of the first distal phalanx per MRI R foot 06/24/2017 - DM with hypoglycemic episode - Hgb A1c 6.5% - Diabetic neuropathy - H/o diabetic foot infections/OM of b/l feet, s/p amputation of R two toes - H/o central stenosis with apparent recent re-vascularization - S/p placement of L IJ HD catheter 06/20/2017 - PVD - H/o LLE bypass - CHF and CAD - Anemia of chronic kidney disease - Morbid obesity - BMI 39.9 - H/o dysphagia, Group A pharyngitis screen was negative - H/o mildly dilated esophagus on CT (11/2016) and multiple distal erosive lesions in the distal esophagus per EGD (11/27/2016; path negative) - 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 Pt's sinuses are non-TTP. On a trial of renally dosed oseltamivir (06/30/2017-) Resulted: respiratory virus panel (negative), pertussis screen neg Recommendations: - Monitor closely off antibiotics; S/p Cefepime (08/09/2018-08/18/18) - consider short course of prednisone Above plan was d/w patient, patient's RN at the bedside verbally, and with Dr. Lucas via [employer] messaging. Thank you Consultation Date/Type/Reason Admit Date/Time August 09, 2018 at 17:42 Initial Consult Date 08/10/18 Type of Consult ID Requesting Provider: KIRSTIN SPANN MD Date/Time of Note DATE: 08/21/18 TIME: 08:57 24 HR Interval Summary Free Text/Dictation The patient was found in the chair having her RN place a new PIV. No acute issues were reported by nursing other than "patient is a hard stick." Remains afebrile. She reports that the patient had a Lower extremity venous doppler within the past half hour (results already reviewed - were neg) Detailed Summary Eyes: no complaints ENT: no complaints Respiratory: cough, shortness of breath (with exertion ), wheezing, other (pt states that her inhaler assists her with resolving her wheezing. ) Cardiovascular: no complaints Gastrointestinal: no complaints Genitourinary: no complaints Musculoskeletal: no complaints, other (generalized weakness ) Skin: no complaints Neurologic: no complaints Psychological: no complaints, nl mood/affect Immunologic: no complaints (2) Exam/Review of Systems Exam Vitals Vital Signs Date Temp Pulse Resp B/P (MAP) Pulse Ox O2 O2 Flow FiO2 Time Delivery Rate 08/21/18 98.1 74 20 162/67 96 Room Air 08:12 (98) 08/20/18 2.0 21:10 08/18/18 36 18:03 Allergies Coded Allergies No Known Allergies (Verified Allergy, Unknown, 08/09/18) Intake and Output 08/20/18 08/20/18 08/21/18 1515:00 23:00 07:00 IntakeIntake Total 50 ml 720 ml OutputOutput Total 4000 ml BalanceBalance 50 ml -3280 ml Exam Constitutional: alert, oriented, well developed, obese, other (sitting up in a chair at the bedside having a new PIV placed) Psych: no complaints, nl mood/affect Head: normocephalic, atraumatic Eyes: nl conjunctiva, nl lids, nl sclera ENMT: nl external ears & nose, nl nasal mucosa & septum, mucosa pink and moist (no thrush noted) Neck: supple, non-tender Respiratory: diminished breath sounds, wheezing (mild expiratory noted RLL), other (dry cough, on O2 via nc) Cardiovascular: regular rate and rhythm, nl pulses Gastrointestinal: soft, non-tender, bowel sounds (normoactive) Genitourinary - Female: other (L Chest HD catheter, site is c/d/i) Musculoskeletal: nl extremities to inspection Extremities: normal pulses, other (R partial great toe and R 5th toe amputations; R 4th finger PIV site is c/d/i. ) Neurological: [employer] II-XII intact, nl mental status, nl speech, other (generalized weaknes; sitting up in chair) Skin: nl turgor, other (L foot wrapped with a c/d/i kerlix dressing); No rash or lesions Results Result Diagram: 08/21/1851708/21/1818 Results 24hrs Laboratory Tests Test 08/20/18 10:43 08/20/18 11:54 08/20/18 17:32 08/20/18 20:48 Lab Scanned Report REFERENCE LAB Bedside Glucose 134 199 149 Test 08/21/18 01:10 08/21/18 05:18 08/21/18 08:25 Bedside Glucose 276 H 216 White Blood Count 4.4 L Red Blood Count 2.80 L Hemoglobin 9.6 L Hematocrit 31.3 L Mean Corpuscular 111.8 H Volume Mean Corpuscular 34.3 H Hemoglobin Mean Corpuscular 30.7 L Hemoglobin Concent Red Cell 17.8 H Distribution Width Platelet Count 228 Mean Platelet 11.3 H Volume Immature 0.700 H Granulocytes % Neutrophils % 64.3 Lymphocytes % 17.8 Monocytes % 14.0 H Eosinophils % 2.7 Basophils % 0.5 Nucleated Red 0.0 Blood Cells % Immature 0.030 Granulocytes # Neutrophils # 2.8 Lymphocytes # 0.8 Monocytes # 0.6 Eosinophils # 0.1 Basophils # 0.0 Nucleated Red 0.0 Blood Cells # Sodium Level 138 Potassium Level 5.5 H Chloride Level 103 Carbon Dioxide 26 Level Anion Gap 9 Blood Urea 43 #H Nitrogen Creatinine 4.92 #H Est Glomerular 9 L Filtrat Rate mL/min Glucose Level 302 H Calcium Level 9.2 Imaging Imaging CXR 08/21/18 IMPRESSION: Worsening left perihilar and left lower lobe infiltrates. Moderate cardiomegaly. Questionable 1.4 cm right lower lobe nodular opacity. Follow-up CT chest is recommended. BLE Venous Study 08/21/18 IMPRESSION: No sonographic evidence for deep venous thrombosis. Medications Medication Current Medications Buspirone HCl (Buspar) 10 mg TID PO Last administered on 08/21/18at 08:21; Admin Dose 10 MG; Start 08/10/18 at 09:00 Diltiazem HCl (Cardizem Cd) 120 mg DAILY PO Last administered on 08/20/18 10:20; Admin Dose 120 MG; Start 08/10/18 at 09:00 Gabapentin (Neurontin) 300 mg TID PO Last administered on 08/21/18 08:20; Admin Dose 300 MG; Start 08/10/18 at 09:00 Metoprolol Tartrate (Lopressor) 25 mg BID PO Last administered on 08/21/18 08:22; Admin Dose 25 MG; Start 08/10/18 at 09:00 Pantoprazole (Protonix Tab) 40 mg AC BREAKFAST PO Last administered on 08/21/18 06:06; Admin Dose 40 MG; Start 08/10/18 at 07:00 Sevelamer Carbonate (Renvela) 1.6 gm WITH MEALS PO Last administered on 08/20/18 17:34; Admin Dose 1.6 GM; Start 08/10/18 at 08:00 Apixaban (Eliquis) 5 mg BID PO Last administered on 08/21/18 08:20; Admin Dose 5 MG; Start 08/10/18 at 09:00 Acetaminophen (Tylenol Tab) 650 mg Q6H PRN PO MILD PAIN(1-3)OR ELEVATED TEMP Last administered on 08/20/18 18:05; Admin Dose 650 MG; Start 08/09/18 at 23:30 Morphine Sulfate (morphine) 2 mg Q4H PRN IV SEVERE PAIN LEVEL 7-10 Last administered on 08/11/18 05:01; Admin Dose 2 MG; Start 08/09/18 at 23:30 Guaifenesin/ Codeine Phosphate (Robitussin Ac Liquid Cup) 10 ml Q4H PRN PO COUGH Last administered on 08/21/18at 08:16; Admin Dose 10 ML; Start 08/09/18 at 2 3:30 Miscellaneous Information 1 ea NOTE XX ; Start 08/10/18 at 05:30 Glucose (Glutose) 15 gm Q15M PRN PO DECREASED GLUCOSE; Start 08/10/18 at 05:30 Glucose (Glutose) 22.5 gm Q15M PRN PO DECREASED GLUCOSE; Start 08/10/18 at 05:30 Dextrose (D50w Syringe) 25 ml Q15M PRN IV DECREASED GLUCOSE; Start 08/10/18 at 05:30 Dextrose (D50w Syringe) 50 ml Q15M PRN IV DECREASED GLUCOSE Last administered on 08/13/18 21:34; Admin Dose 50 ML; Start 08/10/18 at 05:30 Glucagon (Glucagen) 1 mg Q15M PRN IM DECREASED GLUCOSE; Start 08/10/18 at 05:30 Glucose (Glutose) 15 gm Q15M PRN BUCCAL DECREASED GLUCOSE Last administered on 08/14/18 19:18; Admin Dose 15 GM; Start 08/10/18 at 05:30 Insulin Aspart (Novolog Insulin Pen) NOVOLOG *MILD* ALGORI... AC MEALS AND BEDTIME SC Last administered on 08/21/18 08:35; Admin Dose 2 UNIT; Start 08/10/18 at 08:00 Diagnostic Test (Pha) (Accu-Chek) 1 ea 02 XX Last administered on 08/20/18 02:05; Admin Dose 1 EA; Start 08/11/18 at 02:00 Insulin Aspart (Novolog Insulin Pen) 10 unit WITH MEALS SC Last administered on 08/20/18 17:39; Admin Dose 10 UNIT; Start 08/11/18 at 08:00 Docusate Sodium (Colace) 100 mg DAILY PO Last administered on 08/21/18 08:21; Admin Dose 100 MG; Start 08/12/18 at 09:00 Tramadol HCl (Ultram) 50 mg Q12H PRN PO PAIN; Start 08/11/18 at 13:30 Diclofenac Sodium (Voltaren 1% Gel) 2 gm BID TP Last administered on 08/20/18 22:00; Admin Dose 2 GM; Start 08/11/18 at 21:00 Acetaminophen/ Hydrocodone Bitart ([place] (5/325)) 1 tab Q4H PRN PO MODERATE PAIN LEVEL 4-6 Last administered on 08/21/18 08:20; Admin Dose 1 TAB; Start 08/12/18 at 15:00 Isosorbide Dinitrate (Isordil) 10 mg TID PO Last administered on 08/20/18 12:28; Admin Dose 10 MG; Start 08/12/18 at 21:00 Lorazepam (Ativan) 1 mg Q6H PRN IV ANXIETY Last administered on 08/20/18 21:58 ; Admin Dose 1 MG; Start 08/12/18 at 22:30 Heparin Sodium (Porcine) (Heparin (1000 Units/ml)) 4,000 unit AFTER DIALYSIS CATHETER Last administered on 08/20/18 20:43; Admin Dose 4,000 UNIT; Start 01/22 at 16:30 Senna (Senokot) 2 tab BID PRN PO CONSTIPATION Last administered on 08/19/18 21:48; Admin Dose 2 TAB; Start 08/14/18 at 12:00 Albuterol/ Ipratropium (Duoneb) 3 ml Q6H RESP THERAPY PRN HHN SHORTNESS OF BREATH Last administered on 08/20/18 03:20; Admin Dose 3 ML; Start 08/15/18 at 11:00 Ondansetron HCl (Zofran Inj) 4 mg Q6H PRN IV NAUSEA AND/OR VOMITING; Start 08/15/18 at 11:00 Epoetin Bam-epbx (Retacrit (Esrd)) 4,000 unit TuThSa@1700 SC Last administered on 08/17/18 16:43; Admin Dose 4,000 UNIT; Start 08/17/18 at 17:00 Multivit/Ca Carb/ B Cmplx/FA/Prenat (Addie-Mikayla) 1 tab DAILY PO Last administered on 08/21/18 08:20; Admin Dose 1 TAB; Start 08/16/18 at 12:00 Hydrocortisone (Hydrocortisone 0.5% Cr) 1 applic BID PRN TOP ITCHING Last administered on 08/20/18 20:52; Admin Dose 1 APPLIC; Start 08/16/18 at 22:30 Zolpidem Tartrate (Ambien) 5 mg HS PRN PO INSOMNIA Last administered on 08/19/18 00:25; Admin Dose 5 MG; Start 08/17/18 at 21:30 Clotrimazole (Clotrim 1% Vaginal Cr) 1 applic BID VAG Last administered on 08/20/18 20:52; Admin Dose 1 APPLIC; Start 08/19/18 at 21:00; Stop 08/26/18 at 20:59 Bumetanide (Bumex) 2 mg BID DIURETICS PO Last administered on 08/21/18 06:06; Admin Dose 2 MG; Start 08/19/18 at 18:00 Insulin Glargine (Lantus) 22 units DAILY@0800 SC Last administered on 08/21/18at 08:28; Admin Dose 22 UNITS; Start 08/20/18 at 08:00 Hydralazine HCl (Apresoline) 50 mg Q8 PO Last administered on 08/21/18at 06:06; Admin Dose 50 MG; Start 08/20/18 at 14:00 ANA PAULA GARCIA NP August 21, 2018 09:03
[2018-08-21] MEDS: LORAZEPAM 2 MG INJ IV PRN ×2 (09:13→23:05)
--- NOTE | 2018-08-21 10:59 | PN ---
Date/Time of Note Date/Time of Note DATE: 08/21/18 TIME: 10:59 Assessment/Plan VTE Prophylaxis Risk score (from [facility])>0 risk: 6 SCD applied (from [facility]): No SCD contraindicated: other Pharmacological prophylaxis: LMWH Lines/Catheters [facility] [place] [facility] Urinary Cath still in place: No Assessment/Plan Hospital Course - BLE swelling/pain - venous doppler -Healthcare associated pneumonia, continue broad-spectrum antibiotics - Dr. Lucas is following in infection disease consultation. - CXR - showed increased congestion -Hyperkalemia- resolved -Dialysis dependent end-stage renal disease. Dr. Spicer is following in nephrology consultation. -Elevated troponin likely type 2 demand infarct in the setting of pneumonia, pt declined Stress test. Dr. William is following in cardiology consultation. -Atrial fibrillation, continue metoprolol and Eliquis. -Anemia of chronic disease, continue Epogen. -Diabetes mellitus type 2 with hemoglobin A1c of 6.5, continue Lantus and NovoLog -Peripheral vascular disease history of left lower extremity bypass surgery. -Right foot ulcer. Dr. Pineda is following and podiatry consultation. Result Diagram: 08/21/1851708/21/1818 Results 24hrs Laboratory Tests Test 08/20/18 11:54 08/20/18 17:32 08/20/18 20:48 08/21/18 01:10 Bedside Glucose 134 199 149 276 H Test 08/21/18 05:18 08/21/18 08:25 White Blood Count 4.4 L Red Blood Count 2.80 L Hemoglobin 9.6 L Hematocrit 31.3 L Mean Corpuscular 111.8 H Volume Mean Corpuscular 34.3 H Hemoglobin Mean Corpuscular 30.7 L Hemoglobin Concent Red Cell 17.8 H Distribution Width Platelet Count 228 Mean Platelet Volume 11.3 H Immature 0.700 H Granulocytes % Neutrophils % 64.3 Lymphocytes % 17.8 Monocytes % 14.0 H Eosinophils % 2.7 Basophils % 0.5 Nucleated Red Blood 0.0 Cells % Immature 0.030 Granulocytes # Neutrophils # 2.8 Lymphocytes # 0.8 Monocytes # 0.6 Eosinophils # 0.1 Basophils # 0.0 Nucleated Red Blood 0.0 Cells # Sodium Level 138 Potassium Level 5.5 H Chloride Level 103 Carbon Dioxide Level 26 Anion Gap 9 Blood Urea Nitrogen 43 #H Creatinine 4.92 #H Est Glomerular 9 L Filtrat Rate mL/min Glucose Level 302 H Calcium Level 9.2 Bedside Glucose 216 Subjective 24 Hr Interval Summary Free Text/Dictation Patient complain of generalized joint pain and shortness of breath Exam/Review of Systems Exam Vitals Vital Signs Date Temp Pulse Resp B/P (MAP) Pulse Ox O2 O2 Flow FiO2 Time Delivery Rate 08/21/18 98.1 74 20 162/67 96 Room Air 08:12 (98) 08/20/18 2.0 21:10 08/18/18 36 18:03 Intake and Output 08/20/18 08/20/18 08/21/18 1515:00 23:00 07:00 IntakeIntake Total 50 ml 720 ml OutputOutput Total 4000 ml BalanceBalance 50 ml -3280 ml Constitutional: well developed Head: normocephalic, atraumatic Neck: supple Respiratory: diminished breath sounds, wheezing Cardiovascular: regular rate and rhythm Gastrointestinal: soft, non-tender Extremities: normal pulses Results Results 24hrs Laboratory Tests Test 08/20/18 11:54 08/20/18 17:32 08/20/18 20:48 08/21/18 01:10 Bedside Glucose 134 199 149 276 H Test 08/21/18 05:18 08/21/18 08:25 White Blood Count 4.4 L Red Blood Count 2.80 L Hemoglobin 9.6 L Hematocrit 31.3 L Mean Corpuscular 111.8 H Volume Mean Corpuscular 34.3 H Hemoglobin Mean Corpuscular 30.7 L Hemoglobin Concent Red Cell 17.8 H Distribution Width Platelet Count 228 Mean Platelet Volume 11.3 H Immature 0.700 H Granulocytes % Neutrophils % 64.3 Lymphocytes % 17.8 Monocytes % 14.0 H Eosinophils % 2.7 Basophils % 0.5 Nucleated Red Blood 0.0 Cells % Immature 0.030 Granulocytes # Neutrophils # 2.8 Lymphocytes # 0.8 Monocytes # 0.6 Eosinophils # 0.1 Basophils # 0.0 Nucleated Red Blood 0.0 Cells # Sodium Level 138 Potassium Level 5.5 H Chloride Level 103 Carbon Dioxide Level 26 Anion Gap 9 Blood Urea Nitrogen 43 #H Creatinine 4.92 #H Est Glomerular 9 L Filtrat Rate mL/min Glucose Level 302 H Calcium Level 9.2 Bedside Glucose 216 Medications Medication Current Medications Buspirone HCl (Buspar) 10 mg TID PO Last administered on 08/21/18 08:21; Admin Dose 10 MG; Start 08/10/18 at 09:00 Diltiazem HCl (Cardizem Cd) 120 mg DAILY PO Last administered on 08/20/18 10:20; Admin Dose 120 MG; Start 08/10/18 at 09:00 Gabapentin (Neurontin) 300 mg TID PO Last administered on 08/21/18 08:20; Admin Dose 300 MG; Start 08/10/18 at 09:00 Metoprolol Tartrate (Lopressor) 25 mg BID PO Last administered on 08/21/18 08:22; Admin Dose 25 MG; Start 08/10/18 at 09:00 Pantoprazole (Protonix Tab) 40 mg AC BREAKFAST PO Last administered on 08/21/18 06:06; Admin Dose 40 MG; Start 08/10/18 at 07:00 Sevelamer Carbonate (Renvela) 1.6 gm WITH MEALS PO Last administered on 08/20/18 17:34; Admin Dose 1.6 GM; Start 08/10/18 at 08:00 Apixaban (Eliquis) 5 mg BID PO Last administered on 08/21/18 08:20; Admin Dose 5 MG; Start 08/10/18 at 09:00 Acetaminophen (Tylenol Tab) 650 mg Q6H PRN PO MILD PAIN(1-3)OR ELEVATED TEMP Last administered on 08/20/18 18:05; Admin Dose 650 MG; Start 08/09/18 at 23:30 Morphine Sulfate (morphine) 2 mg Q4H PRN IV SEVERE PAIN LEVEL 7-10 Last administered on 08/11/18 05:01; Admin Dose 2 MG; Start 08/09/18 at 23:30 Guaifenesin/ Codeine Phosphate (Robitussin Ac Liquid Cup) 10 ml Q4H PRN PO COUGH Last administered on 08/21/18 08:16; Admin Dose 10 ML; Start 08/09/18 at 23:30 Miscellaneous Information 1 ea NOTE XX ; Start 08/10/18 at 05:30 Glucose (Glutose) 15 gm Q15M PRN PO DECREASED GLUCOSE; Start 08/10/18 at 05:30 Glucose (Glutose) 22.5 gm Q15M PRN PO DECREASED GLUCOSE; Start 08/10/18 at 05:30 Dextrose (D50w Syringe) 25 ml Q15M PRN IV DECREASED GLUCOSE; Start 08/10/18 at 05:30 Dextrose (D50w Syringe) 50 ml Q15M PRN IV DECREASED GLUCOSE Last administered on 08/13/18 21:34; Admin Dose 50 ML; Start 08/10/18 at 05:30 Glucagon (Glucagen) 1 mg Q15M PRN IM DECREASED GLUCOSE; Start 08/10/18 at 05:30 Glucose (Glutose) 15 gm Q15M PRN BUCCAL DECREASED GLUCOSE Last administered on 08/14/18 19:18; Admin Dose 15 GM; Start 08/10/18 at 05:30 Insulin Aspart (Novolog Insulin Pen) NOVOLOG *MILD* ALGORI... AC MEALS AND BEDT REMIGIO SC Last administered on 08/21/18 08:35; Admin Dose 2 UNIT; Start 08/10/18 at 08:00 Diagnostic Test (Pha) (Accu-Chek) 1 ea 02 XX Last administered on 08/20/18 02:05; Admin Dose 1 EA; Start 08/11/18 at 02:00 Insulin Aspart (Novolog Insulin Pen) 10 unit WITH MEALS SC Last administered on 08/20/18 17:39; Admin Dose 10 UNIT; Start 08/11/18 at 08:00 Docusate Sodium (Colace) 100 mg DAILY PO Last administered on 08/21/18 08:21; Admin Dose 100 MG; Start 08/12/18 at 09:00 Tramadol HCl (Ultram) 50 mg Q12H PRN PO PAIN; Start 08/11/18 at 13:30 Diclofenac Sodium (Voltaren 1% Gel) 2 gm BID TP Last administered on 08/21/18 09:03; Admin Dose 2 GM; Start 08/11/18 at 21:00 Acetaminophen/ Hydrocodone Bitart ([place] (5/325)) 1 tab Q4H PRN PO MODERATE PAIN LEVEL 4-6 Last administered on 08/21/18 08:20; Admin Dose 1 TAB; Start 08/12/18 at 15:00 Isosorbide Dinitrate (Isordil) 10 mg TID PO Last administered on 08/20/18 12:28; Admin Dose 10 MG; Start 08/12/18 at 21:00 Lorazepam (Ativan) 1 mg Q6H PRN IV ANXIETY Last administered on 08/21/18 09:13; Admin Dose 1 MG; Start 08/12/18 at 22:30 Heparin Sodium (Porcine) (Heparin (1000 Units/ml)) 4,000 unit AFTER DIALYSIS CATHETER Last administered on 08/20/18 20:43; Admin Dose 4,000 UNIT; Start 08/13/18 at 16:30 Senna (Senokot) 2 tab BID PRN PO CONSTIPATION Last administered on 08/19/18 21:48; Admin Dose 2 TAB; Start 08/14/18 at 12:00 Albuterol/ Ipratropium (Duoneb) 3 ml Q6H RESP THERAPY PRN HHN SHORTNESS OF BREATH Last administered on 08/20/18 03:20; Admin Dose 3 ML; Start 08/15/18 at 11:00 Ondansetron HCl (Zofran Inj) 4 mg Q6H PRN IV NAUSEA AND/OR VOMITING; Start 08/15/18 at 11:00 Epoetin Bam-epbx (Retacrit (Esrd)) 4,000 unit TuThSa@1700 SC Last administered on 08/17/18 16:43; Admin Dose 4,000 UNIT; Start 08/17/18 at 17:00 Multivit/Ca Carb/ B Cmplx/FA/Prenat (Addie-Mikayla) 1 tab DAILY PO Last administered on 08/21/18 08:20; Admin Dose 1 TAB; Start 08/16/18 at 12:00 Hydrocortisone (Hydrocortisone 0.5% Cr) 1 applic BID PRN TOP ITCHING Last administered on 08/20/18 20:52; Admin Dose 1 APPLIC; Start 08/16/18 at 22:30 Zolpidem Tartrate (Ambien) 5 mg HS PRN PO INSOMNIA Last administered on 08/19/18 00:25; Admin Dose 5 MG; Start 08/17/18 at 21:30 Clotrimazole (Clotrim 1% Vaginal Cr) 1 applic BID VAG Last administered on 09:03; Admin Dose 1 APPLIC; Start 08/19/18 at 21:00; Stop 08/26/18 at 20:59 Bumetanide (Bumex) 2 mg BID DIURETICS PO Last administered on 08/21/18at 06:06; Admin Dose 2 MG; Start 08/19/18 at 18:00 Insulin Glargine (Lantus) 22 units DAILY@0800 SC Last administered on 08/21/18at 08:28; Admin Dose 22 UNITS; Start 08/20/18 at 08:00 Hydralazine HCl (Apresoline) 50 mg Q8 PO Last administered on 08/21/18at 06:06; Admin Dose 50 MG; Start 08/20/18 at 14:00 CARYL PANTOJA August 21, 2018 10:59
[2018-08-21] MEDS ORDERED: ALBUTEROL 0.083% (NEB) 2.5 MG/3 ML AMP HHN PRN (11:00)
--- NOTE | 2018-08-21 11:26 | CONS ---
Consult Date/Type/Reason Admit Date/Time August 09, 2018 at 17:42 Initial Consult Date 08/10/18 Type of Consult Pulmonary Requesting Provider: KIRSTIN SPANN MD Date/Time of Note DATE: 08/21/18 TIME: 11:25 Subjective Patient states she continues to have chest heaviness. No shortness of breath on exertion. Objective Vital Signs Date Temp Pulse Resp B/P (MAP) Pulse Ox O2 O2 Flow FiO2 Time Delivery Rate 08/21/18 98.1 74 20 162/67 96 Room Air 08:12 (98) 08/20/18 2.0 21:10 08/18/18 36 18:03 Intake and Output 08/20/18 08/20/18 08/21/18 1515:00 23:00 07:00 IntakeIntake Total 50 ml 720 ml OutputOutput Total 4000 ml BalanceBalance 50 ml -3280 ml Exam GENERAL: Morbidly obese lady awake alert comfortable no respiratory distress VITAL SIGNS: per chart NECK: Supple. No JVD or lymphadenopathy. CARDIAC EXAM: S1, S2. No added sounds or murmurs. CHEST: clear bilaterally, No added sounds, rales or wheezes ABDOMEN: Soft, nontender. No guarding or rebound. EXTREMITIES: No cyanosis, clubbing or edema. NEUROLOGIC: Generalized weakness. No focal deficits. Vent Setting Fraction of Inspired Oxygen pe: 36 Results/Medications Result Diagram: 08/21/1818 08/21/1818 Results 24 hrs Laboratory Tests Test 08/20/18 11:54 08/20/18 17:32 08/20/18 20:48 08/21/18 01:10 Bedside Glucose 134 199 149 276 H Test 08/21/18 05:18 08/21/18 08:25 White Blood Count 4.4 L Red Blood Count 2.80 L Hemoglobin 9.6 L Hematocrit 31.3 L Mean Corpuscular 111.8 H Volume Mean Corpuscular 34.3 H Hemoglobin Mean Corpuscular 30.7 L Hemoglobin Concent Red Cell 17.8 H Distribution Width Platelet Count 228 Mean Platelet Volume 11.3 H Immature 0.700 H Granulocytes % Neutrophils % 64.3 Lymphocytes % 17.8 Monocytes % 14.0 H Eosinophils % 2.7 Basophils % 0.5 Nucleated Red Blood 0.0 Cells % Immature 0.030 Granulocytes # Neutrophils # 2.8 Lymphocytes # 0.8 Monocytes # 0.6 Eosinophils # 0.1 Basophils # 0.0 Nucleated Red Blood 0.0 Cells # Sodium Level 138 Potassium Level 5.5 H Chloride Level 103 Carbon Dioxide Level 26 Anion Gap 9 Blood Urea Nitrogen 43 #H Creatinine 4.92 #H Est Glomerular 9 L Filtrat Rate mL/min Glucose Level 302 H Calcium Level 9.2 Bedside Glucose 216 Medications Current Medications Buspirone HCl (Buspar) 10 mg TID PO Last administered on 08/21/18 08:21; Admin Dose 10 MG; Start 08/10/18 at 09:00 Diltiazem HCl (Cardizem Cd) 120 mg DAILY PO Last administered on 08/20/18 10:20; Admin Dose 120 MG; Start 08/10/18 at 09:00 Gabapentin (Neurontin) 300 mg TID PO Last administered on 08/21/18 08:20; Admin Dose 300 MG; Start 08/10/18 at 09:00 Metoprolol Tartrate (Lopressor) 25 mg BID PO Last administered on 08/21/18 08:22; Admin Dose 25 MG; Start 08/10/18 at 09:00 Pantoprazole (Protonix Tab) 40 mg AC BREAKFAST PO Last administered on 08/21/18 06:06; Admin Dose 40 MG; Start 08/10/18 at 07:00 Sevelamer Carbonate (Renvela) 1.6 gm WITH MEALS PO Last administered on 08/20/18 17:34; Admin Dose 1.6 GM; Start 08/10/18 at 08:00 Apixaban (Eliquis) 5 mg BID PO Last administered on 08/21/18 08:20; Admin Dose 5 MG; Start 08/10/18 at 09:00 Acetaminophen (Tylenol Tab) 650 mg Q6H PRN PO MILD PAIN(1-3)OR ELEVATED TEMP Last administered on 08/20/18 18:05; Admin Dose 650 MG; Start 08/09/18 at 23:30 Morphine Sulfate (morphine) 2 mg Q4H PRN IV SEVERE PAIN LEVEL 7-10 Last administered on 08/11/18 05:01; Admin Dose 2 MG; Start 08/09/18 at 23:30 Guaifenesin/ Codeine Phosphate (Robitussin Ac Liquid Cup) 10 ml Q4H PRN PO COUGH Last administered on 08/21/18at 08:16; Admin Dose 10 ML; Start 08/09/18 at 23:30 Miscellaneous Information 1 ea NOTE XX ; Start 08/10/18 at 05:30 Glucose (Glutose) 15 gm Q15M PRN PO DECREASED GLUCOSE; Start 08/10/18 at 05:30 Glucose (Glutose) 22.5 gm Q15M PRN PO DECREASED GLUCOSE; Start 08/10/18 at 05:30 Dextrose (D50w Syringe) 25 ml Q15M PRN IV DECREASED GLUCOSE; Start 08/10/18 at 05:30 Dextrose (D50w Syringe) 50 ml Q15M PRN IV DECREASED GLUCOSE Last administered on 08/13/18at 21:34; Admin Dose 50 ML; Start 08/10/18 at 05:30 Glucagon (Glucagen) 1 mg Q15M PRN IM DECREASED GLUCOSE; Start 08/10/18 at 05:30 Glucose (Glutose) 15 gm Q15M PRN BUCCAL DECREASED GLUCOSE Last administered on 08/14/18at 19:18; Admin Dose 15 GM; Start 08/10/18 at 05:30 Insulin Aspart (Novolog Insulin Pen) NOVOLOG *MILD* ALGORI... AC MEALS AND BEDTIME SC Last administered on 08/21/18at 08:35; Admin Dose 2 UNIT; Start 08/10/18 at 08:00 Diagnostic Test (Pha) (Accu-Chek) 1 ea 02 XX Last administered on 08/20/18at 02:05; Admin Dose 1 EA; Start 08/11/18 at 02:00 Insulin Aspart (Novolog Insulin Pen) 10 unit WITH MEALS SC Last administered on 08/20/18at 17:39; Admin Dose 10 UNIT; Start 08/11/18 at 08:00 Docusate Sodium (Colace) 100 mg DAILY PO Last administered on 08/21/18at 08:21; Admin Dose 100 MG; Start 08/12/18 at 09:00 Tramadol HCl (Ultram) 50 mg Q12H PRN PO PAIN; Start 08/11/18 at 13:30 Diclofenac Sodium (Voltaren 1% Gel) 2 gm BID TP Last administered on 08/21/18at 09:03; Admin Dose 2 GM; Start 08/11/18 at 21:00 Acetaminophen/ Hydrocodone Bitart ([place] (5/325)) 1 tab Q4H PRN PO MODERATE PAIN LEVEL 4-6 Last administered on 08/21/18 08:20; Admin Dose 1 TAB; Start 08/12/18 at 15:00 Isosorbide Dinitrate (Isordil) 10 mg TID PO Last administered on 08/20/18 12:28; Admin Dose 10 MG; Start 08/12/18 at 21:00 Lorazepam (Ativan) 1 mg Q6H PRN IV ANXIETY Last administered on 08/21/18 09:13; Admin Dose 1 MG; Start 08/12/18 at 22:30 Heparin Sodium (Porcine) (Heparin (1000 Units/ml)) 4,000 unit AFTER DIALYSIS CATHETER Last administered on 08/20/18 20:43; Admin Dose 4,000 UNIT; Start 08/13/18 at 16:30 Senna (Senokot) 2 tab BID PRN PO CONSTIPATION Last administered on 08/19/18 21:48; Admin Dose 2 TAB; Start 08/14/18 at 12:00 Albuterol/ Ipratropium (Duoneb) 3 ml Q6H RESP THERAPY PRN HHN SHORTNESS OF BREATH Last administered on 08/20/18 03:20; Admin Dose 3 ML; Start 08/15/18 at 11:00 Ondansetron HCl (Zofran Inj) 4 mg Q6H PRN IV NAUSEA AND/OR VOMITING; Start 08/15/18 at 11:00 Epoetin Bam-epbx (Retacrit (Esrd)) 4,000 unit TuThSa@1700 SC Last administered on 08/17/18 16:43; Admin Dose 4,000 UNIT; Start 08/17/18 at 17:00 Multivit/Ca Carb/ B Cmplx/FA/Prenat (Addie-Mikayla) 1 tab DAILY PO Last administered on 08/21/18 08:20; Admin Dose 1 TAB; Start 08/16/18 at 12:00 Hydrocortisone (Hydrocortisone 0.5% Cr) 1 applic BID PRN TOP ITCHING Last administered on 08/20/18 20:52; Admin Dose 1 APPLIC; Start 08/16/18 at 22:30 Zolpidem Tartrate (Ambien) 5 mg HS PRN PO INSOMNIA Last administered on 5/16/19at 00:25; Admin Dose 5 MG; Start 08/17/18 at 21:30 Clotrimazole (Clotrim 1% Vaginal Cr) 1 applic BID VAG Last administered on 08/21/18at 09:03; Admin Dose 1 APPLIC; Start 08/19/18 at 21:00; Stop 08/26/18 at 20:59 Bumetanide (Bumex) 2 mg BID DIURETICS PO Last administered on 08/21/18at 06:06; Admin Dose 2 MG; Start 08/19/18 at 18:00 Insulin Glargine (Lantus) 22 units DAILY@0800 SC Last administered on 08/21/18at 08:28; Admin Dose 22 UNITS; Start 08/20/18 at 08:00 Hydralazine HCl (Apresoline) 50 mg Q8 PO Last administered on 08/21/18at 06:06; Admin Dose 50 MG; Start 08/20/18 at 14:00 Albuterol (Proventil 0.083% (Neb)) 1.25 mg Q2H RESP THERAPY PRN HHN shortness of breath; Start 08/21/18 at 11:00 Assessment/Plan Hospital Course (Demo Recall) IMPRESSION 1. Worsening hypoxemia likely secondary to increased volume overload. 2. End-stage renal failure on hemodialysis. 3. Likely moderate to severe chronic obstructive pulmonary disease. 4. Probable obstructive sleep apnea. 5. Essential hypertension. 6. Diabetes mellitus. Plan 1. Continue hemodialysis as tolerated 2. Bronchodilators as needed 3. CT chest noncontrast DC planning okay from pulmonary standpoint DIONISIO CONTRERAS MD, [facility] August 21, 2018 11:26
--- NOTE | 2018-08-21 11:54 | CONS ---
Assessment/Plan Assessment/Plan Hospital Course (Demo Recall) 1. End-stage renal disease, Thursday, , Thursday. 2. Hyperkalemia, resolving with HD. 3. Elevated troponin. Patient has history of end-stage renal disease. 4. History of peripheral vascular disease. 5. Pneumonia, 6. Anemia, likely anemia of chronic disease. 7. Peripheral vascular disease status post bypass of the left lower extremity. 8. Right foot ulcer with infection at the site of recent debridement. Cultures grew MRSA and Enterococcus. 9. History of central stenosis with apparent revascularization. 10. Status post placement of left IJ Permcath 06/2017. 11. Obesity Assessment/Plan (Daily) -c.w HD, one yesterday, UF today -renally dose drugs -c/w Epogen Consultation Date/Type/Reason Admit Date/Time August 09, 2018 at 17:42 Initial Consult Date 08/10/18 Type of Consult 08/11/2018 Requesting Provider: KIRSTIN SPANN MD Date/Time of Note DATE: 08/21/18 TIME: 11:53 24 HR Interval Summary Free Text/Dictation weakness Exam/Review of Systems Exam Vitals Vital Signs Date Temp Pulse Resp B/P (MAP) Pulse Ox O2 O2 Flow FiO2 Time Delivery Rate 08/21/18 98.1 74 20 162/67 96 Room Air 08:12 (98) 08/20/18 2.0 21:10 08/18/18 36 18:03 Intake and Output 08/20/18 08/20/18 08/21/18 1515:00 23:00 07:00 IntakeIntake Total 50 ml 720 ml OutputOutput Total 4000 ml BalanceBalance 50 ml -3280 ml Exam left chest Perm cath Constitutional: alert, oriented Head: normocephalic Eyes: nl conjunctiva Neck: supple Respiratory: diminished breath sounds Cardiovascular: regular rate and rhythm Musculoskeletal: swelling (LE) Results Result Diagram: 08/21/1851708/21/18517 Results 24hrs Laboratory Tests Test 08/20/18 11:54 08/20/18 17:32 08/20/18 20:48 08/21/18 01:10 Bedside Glucose 134 199 149 276 H Test 08/21/18 05:18 08/21/18 08:25 White Blood Count 4.4 L Red Blood Count 2.80 L Hemoglobin 9.6 L Hematocrit 31.3 L Mean Corpuscular 111.8 H Volume Mean Corpuscular 34.3 H Hemoglobin Mean Corpuscular 30.7 L Hemoglobin Concent Red Cell 17.8 H Distribution Width Platelet Count 228 Mean Platelet Volume 11.3 H Immature 0.700 H Granulocytes % Neutrophils % 64.3 Lymphocytes % 17.8 Monocytes % 14.0 H Eosinophils % 2.7 Basophils % 0.5 Nucleated Red Blood 0.0 Cells % Immature 0.030 Granulocytes # Neutrophils # 2.8 Lymphocytes # 0.8 Monocytes # 0.6 Eosinophils # 0.1 Basophils # 0.0 Nucleated Red Blood 0.0 Cells # Sodium Level 138 Potassium Level 5.5 H Chloride Level 103 Carbon Dioxide Level 26 Anion Gap 9 Blood Urea Nitrogen 43 #H Creatinine 4.92 #H Est Glomerular 9 L Filtrat Rate mL/min Glucose Level 302 H Calcium Level 9.2 Bedside Glucose 216 Medications Medication Current Medications Buspirone HCl (Buspar) 10 mg TID PO Last administered on 08/21/18 08:21; Admin Dose 10 MG; Start 08/10/18 at 09:00 Diltiazem HCl (Cardizem Cd) 120 mg DAILY PO Last administered on 08/20/18 10:20; Admin Dose 120 MG; Start 08/10/18 at 09:00 Gabapentin (Neurontin) 300 mg TID PO Last administered on 08/21/18 08:20; Admin Dose 300 MG; Start 08/10/18 at 09:00 Metoprolol Tartrate (Lopressor) 25 mg BID PO Last administered on 08/21/18 08:22; Admin Dose 25 MG; Start 08/10/18 at 09:00 Pantoprazole (Protonix Tab) 40 mg AC BREAKFAST PO Last administered on 06:06; Admin Dose 40 MG; Start 08/10/18 at 07:00 Sevelamer Carbonate (Renvela) 1.6 gm WITH MEALS PO Last administered on 08/20/18 17:34; Admin Dose 1.6 GM; Start 08/10/18 at 08:00 Apixaban (Eliquis) 5 mg BID PO Last administered on 08/21/18 08:20; Admin Dose 5 MG; Start 08/10/18 at 09:00 Acetaminophen (Tylenol Tab) 650 mg Q6H PRN PO MILD PAIN(1-3)OR ELEVATED TEMP Last administered on 08/20/18at 18:05; Admin Dose 650 MG; Start 08/09/18 at 23:30 Morphine Sulfate (morphine) 2 mg Q4H PRN IV SEVERE PAIN LEVEL 7-10 Last administered on 08/11/18 05:01; Admin Dose 2 MG; Start 08/09/18 at 23:30 Guaifenesin/ Codeine Phosphate (Robitussin Ac Liquid Cup) 10 ml Q4H PRN PO COUGH Last administered on 08/21/18at 08:16; Admin Dose 10 ML; Start 08/09/18 at 23:30 Miscellaneous Information 1 ea NOTE XX ; Start 08/10/18 at 05:30 Glucose (Glutose) 15 gm Q15M PRN PO DECREASED GLUCOSE; Start 08/10/18 at 05:30 Glucose (Glutose) 22.5 gm Q15M PRN PO DECREASED GLUCOSE; Start 08/10/18 at 05:30 Dextrose (D50w Syringe) 25 ml Q15M PRN IV DECREASED GLUCOSE; Start 08/10/18 at 05:30 Dextrose (D50w Syringe) 50 ml Q15M PRN IV DECREASED GLUCOSE Last administered on 08/13/18at 21:34; Admin Dose 50 ML; Start 08/10/18 at 05:30 Glucagon (Glucagen) 1 mg Q15M PRN IM DECREASED GLUCOSE; Start 08/10/18 at 05:30 Glucose (Glutose) 15 gm Q15M PRN BUCCAL DECREASED GLUCOSE Last administered on 08/14/18at 19:18; Admin Dose 15 GM; Start 08/10/18 at 05:30 Insulin Aspart (Novolog Insulin Pen) NOVOLOG *MILD* ALGORI... AC MEALS AND BEDTIME SC Last administered on 08/21/18at 08:35; Admin Dose 2 UNIT; Start 08/10/18 at 08:00 Diagnostic Test (Pha) (Accu-Chek) 1 ea 02 XX Last administered on 08/20/18at 02:05; Admin Dose 1 EA; Start 08/11/18 at 02:00 Insulin Aspart (Novolog Insulin Pen) 10 unit WITH MEALS SC Last administered on 08/20/18at 17:39; Admin Dose 10 UNIT; Start 08/11/18 at 08:00 Docusate Sodium (Colace) 100 mg DAILY PO Last administered on 08/21/18 08:21; Admin Dose 100 MG; Start 08/12/18 at 09:00 Tramadol HCl (Ultram) 50 mg Q12H PRN PO PAIN; Start 08/11/18 at 13:30 Diclofenac Sodium (Voltaren 1% Gel) 2 gm BID TP Last administered on 08/21/18 09:03; Admin Dose 2 GM; Start 08/11/18 at 21:00 Acetaminophen/ Hydrocodone Bitart ([place] (5/325)) 1 tab Q4H PRN PO MODERATE PAIN LEVEL 4-6 Last administered on 08/21/18 08:20; Admin Dose 1 TAB; Start 08/12/18 at 15:00 Isosorbide Dinitrate (Isordil) 10 mg TID PO Last administered on 08/20/18 12:28; Admin Dose 10 MG; Start 08/12/18 at 21:00 Lorazepam (Ativan) 1 mg Q6H PRN IV ANXIETY Last administered on 08/21/18 09:13; Admin Dose 1 MG; Start 08/12/18 at 22:30 Heparin Sodium (Porcine) (Heparin (1000 Units/ml)) 4,000 unit AFTER DIALYSIS CATHETER Last administered on 08/20/18 20:43; Admin Dose 4,000 UNIT; Start 08/13/18 at 16:30 Senna (Senokot) 2 tab BID PRN PO CONSTIPATION Last administered on 08/19/18 21:48; Admin Dose 2 TAB; Start 08/14/18 at 12:00 Albuterol/ Ipratropium (Duoneb) 3 ml Q6H RESP THERAPY PRN HHN SHORTNESS OF BREATH Last administered on 08/20/18 03:20; Admin Dose 3 ML; Start 08/15/18 at 11:00 Ondansetron HCl (Zofran Inj) 4 mg Q6H PRN IV NAUSEA AND/OR VOMITING; Start 08/15/18 at 11:00 Epoetin Bam-epbx (Retacrit (Esrd)) 4,000 unit TuThSa@1700 SC Last administered on 08/17/18 16:43; Admin Dose 4,000 UNIT; Start 08/17/18 at 17:00 Multivit/Ca Carb/ B Cmplx/FA/Prenat (Addie-Mikayla) 1 tab DAILY PO Last administered on 08/21/18 08:20; Admin Dose 1 TAB; Start 08/16/18 at 12:00 Hydrocortisone (Hydrocortisone 0.5% Cr) 1 applic BID PRN TOP ITCHING Last administered on 08/20/18 20:52; Admin Dose 1 APPLIC; Start 08/16/18 at 22:30 Zolpidem Tartrate (Ambien) 5 mg HS PRN PO INSOMNIA Last administered on 08/19/18 00:25; Admin Dose 5 MG; Start 08/17/18 at 21:30 Clotrimazole (Clotrim 1% Vaginal Cr) 1 applic BID VAG Last administered on 08/21/18 09:03; Admin Dose 1 APPLIC; Start 08/19/18 at 21:00; Stop 08/26/18 at 20:59 Bumetanide (Bumex) 2 mg BID DIURETICS PO Last administered on 08/21/18 06:06; Admin Dose 2 MG; Start 08/19/18 at 18:00 Insulin Glargine (Lantus) 22 units DAILY@0800 SC Last administered on 08/21/18 08:28; Admin Dose 22 UNITS; Start 08/20/18 at 08:00 Hydralazine HCl (Apresoline) 50 mg Q8 PO Last administered on 08/21/18 06:06; Admin Dose 50 MG; Start 08/20/18 at 14:00 Albuterol (Proventil 0.083% (Neb)) 1.25 mg Q2H RESP THERAPY PRN HHN shortness of breath; Start 08/21/18 at 11:00 KUNAL RAMOS August 21, 2018 11:54
[2018-08-21] MEDS ORDERED: REGADENOSON 0.4 MG/5 ML SYG ONE (12:00)
--- NOTE | 2018-08-21 14:03 | CONS ---
Consult Date/Type/Reason Admit Date/Time August 09, 2018 at 17:42 Initial Consult Date 08/10/18 Requesting Provider: KIRSTIN SPANN MD Date/Time of Note DATE: 08/21/18 TIME: 14:01 Subjective NO acute events - pt comfortable - no CP - in good fluid status now. Stres test done - will await results. ROS: No fever, no chills, no nausea, no vomiting, no diarrhea/constipation + anxious, SOB No recent weight changes No chest pain, no PND, no orthopnea No dizziness, blurred vision No thirst, no heat or cold intolerance Objective Vitals Vital Signs Date Temp Pulse Resp B/P (MAP) Pulse Ox O2 O2 Flow FiO2 Time Delivery Rate 08/21/18 76 12:01 08/21/18 98.0 138/62 94 Room Air 12:01 (87) 08/21/18 20 08:12 08/20/18 2.0 21:10 08/18/18 36 18:03 Intake and Output 08/20/18 08/20/18 08/21/18 1515:00 23:00 07:00 IntakeIntake Total 50 ml 720 ml OutputOutput Total 4000 ml BalanceBalance 50 ml -3280 ml Exam General: WN/WD/NAD, AOx 3 HEENT: Unicetric/atraumatic/EOMI (follow commands) NECK: JVD elevated, no thyromegaly Lymph: no lymphadenopathy HEART: regular with no S3, II/ systolic murmur at apex, PMI L LUNGS: Coarse sounds ABD: soft, NT, ND, +BS : Intact Neuro: non focal SKIN: chronic changes EXT: trace edema Results/Medications Result Diagram: 08/21/1851708/21/1818 Results 24 hrs Laboratory Tests Test 08/20/18 17:32 08/20/18 20:48 08/21/18 01:10 08/21/18 05:18 Bedside Glucose 199 149 276 H White Blood Count 4.4 L Red Blood Count 2.80 L Hemoglobin 9.6 L Hematocrit 31.3 L Mean Corpuscular 111.8 H Volume Mean Corpuscular 34.3 H Hemoglobin Mean Corpuscular 30.7 L Hemoglobin Concent Red Cell 17.8 H Distribution Width Platelet Count 228 Mean Platelet Volume 11.3 H Immature 0.700 H Granulocytes % Neutrophils % 64.3 Lymphocytes % 17.8 Monocytes % 14.0 H Eosinophils % 2.7 Basophils % 0.5 Nucleated Red Blood 0.0 Cells % Immature 0.030 Granulocytes # Neutrophils # 2.8 Lymphocytes # 0.8 Monocytes # 0.6 Eosinophils # 0.1 Basophils # 0.0 Nucleated Red Blood 0.0 Cells # Sodium Level 138 Potassium Level 5.5 H Chloride Level 103 Carbon Dioxide Level 26 Anion Gap 9 Blood Urea Nitrogen 43 #H Creatinine 4.92 #H Est Glomerular 9 L Filtrat Rate mL/min Glucose Level 302 H Calcium Level 9.2 Test 08/21/18 08:25 Bedside Glucose 216 Home Meds Reported Medications Albuterol Sulfate* (Ventolin HFA*) 18 Gm Hfa.aer.ad, 2 PUFF INHALATION Q6H, #1 INHALER 08/15/18 Metoprolol Tartrate* (Lopressor*) 25 Mg Tab, 25 MG PO BID, #60 TAB 08/09/18 Pantoprazole* (Pantoprazole*) 40 Mg Tablet.dr, 40 MG PO AC BREAKFAST, TAB 08/09/18 Diltiazem Hcl* (Diltiazem XT) 120 Mg Capsule.sa, 120 MG PO DAILY, #30 CAP 08/09/18 Amlodipine Besylate* (Norvasc*) 5 Mg Tablet, 5 MG PO DAILY, TAB 08/09/18 Buspirone Hcl* (Buspirone Hcl*) 10 Mg Tab, 10 MG PO TID, TAB 08/09/18 Furosemide* (Furosemide*) 20 Mg Tablet, 20 MG PO DAILY, #60 TAB 08/09/18 Gabapentin* (Gabapentin*) 300 Mg Capsule, 300 MG PO TID, #90 CAP 08/09/18 Methocarbamol* (Methocarbamol*) 500 Mg Tablet, 500 MG PO DAILY, TAB 08/09/18 Sevelamer Hcl* (Renagel*) 800 Mg Tablet, 1600 MG PO WITH MEALS, TAB 08/09/18 Apixaban* (Eliquis*) 5 Mg Tablet, 5 MG PO BID, TAB 08/09/18 Medications Current Medications Buspirone HCl (Buspar) 10 mg TID PO Last administered on 08/21/18at 08:21; Admin Dose 10 MG; Start 08/10/18 at 09:00 Diltiazem HCl (Cardizem Cd) 120 mg DAILY PO Last administered on 08/20/18 10:20; Admin Dose 120 MG; Start 08/10/18 at 09:00 Gabapentin (Neurontin) 300 mg TID PO Last administered on 08/21/18 08:20; Admin Dose 300 MG; Start 08/10/18 at 09:00 Metoprolol Tartrate (Lopressor) 25 mg BID PO Last administered on 08/21/18 08:22; Admin Dose 25 MG; Start 08/10/18 at 09:00 Pantoprazole (Protonix Tab) 40 mg AC BREAKFAST PO Last administered on 08/21/18 06:06; Admin Dose 40 MG; Start 08/10/18 at 07:00 Sevelamer Carbonate (Renvela) 1.6 gm WITH MEALS PO Last administered on 08/20/18 17:34; Admin Dose 1.6 GM; Start 08/10/18 at 08:00 Apixaban (Eliquis) 5 mg BID PO Last administered on 08/21/18 08:20; Admin Dose 5 MG; Start 08/10/18 at 09:00 Acetaminophen (Tylenol Tab) 650 mg Q6H PRN PO MILD PAIN(1-3)OR ELEVATED TEMP Last administered on 08/20/18 18:05; Admin Dose 650 MG; Start 08/09/18 at 23:30 Morphine Sulfate (morphine) 2 mg Q4H PRN IV SEVERE PAIN LEVEL 7-10 Last administered on 08/11/18 05:01; Admin Dose 2 MG; Start 08/09/18 at 23:30 Guaifenesin/ Codeine Phosphate (Robitussin Ac Liquid Cup) 10 ml Q4H PRN PO COUGH Last administered on 08/21/18 08:16; Admin Dose 10 ML; Start 08/09/18 at 23:30 Miscellaneous Information 1 ea NOTE XX ; Start 08/10/18 at 05:30 Glucose (Glutose) 15 gm Q15M PRN PO DECREASED GLUCOSE; Start 08/10/18 at 05:30 Glucose (Glutose) 22.5 gm Q15M PRN PO DECREASED GLUCOSE; Start 08/10/18 at 05:30 Dextrose (D50w Syringe) 25 ml Q15M PRN IV DECREASED GLUCOSE; Start 08/10/18 at 05:30 Dextrose (D50w Syringe) 50 ml Q15M PRN IV DECREASED GLUCOSE Last administered on 08/13/18 21:34; Admin Dose 50 ML; Start 08/10/18 at 05:30 Glucagon (Glucagen) 1 mg Q15M PRN IM DECREASED GLUCOSE; Start 08/10/18 at 05:30 Glucose (Glutose) 15 gm Q15M PRN BUCCAL DECREASED GLUCOSE Last administered on 08/14/18 19:18; Admin Dose 15 GM; Start 08/10/18 at 05:30 Insulin Aspart (Novolog Insulin Pen) NOVOLOG *MILD* ALGORI... AC MEALS AND BEDTIME SC Last administered on 08/21/18 08:35; Admin Dose 2 UNIT; Start 08/10/18 at 08:00 Diagnostic Test (Pha) (Accu-Chek) 1 ea 02 XX Last administered on 08/20/18 02:05; Admin Dose 1 EA; Start 08/11/18 at 02:00 Insulin Aspart (Novolog Insulin Pen) 10 unit WITH MEALS SC Last administered on 08/20/18 17:39; Admin Dose 10 UNIT; Start 08/11/18 at 08:00 Docusate Sodium (Colace) 100 mg DAILY PO Last administered on 08/21/18 08:21; Admin Dose 100 MG; Start 08/12/18 at 09:00 Tramadol HCl (Ultram) 50 mg Q12H PRN PO PAIN; Start 08/11/18 at 13:30 Diclofenac Sodium (Voltaren 1% Gel) 2 gm BID TP Last administered on 08/21/18 09:03; Admin Dose 2 GM; Start 08/11/18 at 21:00 Acetaminophen/ Hydrocodone Bitart ([place] (5/325)) 1 tab Q4H PRN PO MODERATE PAIN LEVEL 4-6 Last administered on 08/21/18 08:20; Admin Dose 1 TAB; Start 08/12/18 at 15:00 Isosorbide Dinitrate (Isordil) 10 mg TID PO Last administered on 08/20/18 12:28; Admin Dose 10 MG; Start 08/12/18 at 21:00 Lorazepam (Ativan) 1 mg Q6H PRN IV ANXIETY Last administered on 08/21/18 09:13; Admin Dose 1 MG; Start 08/12/18 at 22:30 Heparin Sodium (Porcine) (Heparin (1000 Units/ml)) 4,000 unit AFTER DIALYSIS CATHETER Last administered on 08/20/18 20:43; Admin Dose 4,000 UNIT; Start 08/13/18 at 16:30 Senna (Senokot) 2 tab BID PRN PO CONSTIPATION Last administered on 08/19/18 21:48; Admin Dose 2 TAB; Start 08/14/18 at 12:00 Albuterol/ Ipratropium (Duoneb) 3 ml Q6H RESP THERAPY PRN HHN SHORTNESS OF BREATH Last administered on 08/20/18 03:20; Admin Dose 3 ML; Start 08/15/18 at 11:00 Ondansetron HCl (Zofran Inj) 4 mg Q6H PRN IV NAUSEA AND/OR VOMITING; Start 08/15/18 at 11:00 Epoetin Bam-epbx (Retacrit (Esrd)) 4,000 unit TuThSa@1700 SC Last administered on 08/17/18 16:43; Admin Dose 4,000 UNIT; Start 08/17/18 at 17:00 Multivit/Ca Carb/ B Cmplx/FA/Prenat (Addie-Mikayla) 1 tab DAILY PO Last administered on 08/21/18 08:20; Admin Dose 1 TAB; Start 08/16/18 at 12:00 Hydrocortisone (Hydrocortisone 0.5% Cr) 1 applic BID PRN TOP ITCHING Last admi nistered on 08/20/18 20:52; Admin Dose 1 APPLIC; Start 08/16/18 at 22:30 Zolpidem Tartrate (Ambien) 5 mg HS PRN PO INSOMNIA Last administered on 08/19/18 00:25; Admin Dose 5 MG; Start 08/17/18 at 21:30 Clotrimazole (Clotrim 1% Vaginal Cr) 1 applic BID VAG Last administered on 08/21/18 09:03; Admin Dose 1 APPLIC; Start 08/19/18 at 21:00; Stop 08/26/18 at 20:59 Bumetanide (Bumex) 2 mg BID DIURETICS PO Last administered on 08/21/18 06:06; Admin Dose 2 MG; Start 08/19/18 at 18:00 Insulin Glargine (Lantus) 22 units DAILY@0800 SC Last administered on 08/21/18at 08:28; Admin Dose 22 UNITS; Start 08/20/18 at 08:00 Hydralazine HCl (Apresoline) 50 mg Q8 PO Last administered on 08/21/18at 06:06; Admin Dose 50 MG; Start 08/20/18 at 14:00 Albuterol (Proventil 0.083% (Neb)) 1.25 mg Q2H RESP THERAPY PRN HHN shortness of breath; Start 08/21/18 at 11:00 Assessment/Plan Hospital Course (Demo Recall) 1. Positive troponin, assess significance in the setting of renal failure, likely type 2 demand infarct in the setting of pneumoni - AGREED TO Stress test NOw - - completed, will await results 2. Atrial fibrillation, rate controlled - con't to follow. No tachy-prasad episodes noted. Better now. Controlled. Treated. NOW N SINUS with [place]. 3. Abnormal electrocardiogram, assess for true acute coronary syndrome. NO CP - refused stress test. 4. Hypertension, well controlled - HD to follow. Defer to renal team. Better. Con;t med rx. Traeted. 5. End-stage renal disease, on hemodialysi s - pt asking for "more HD" - will defer to renal team now. 6. Nausea- better now - in good satus now. NO new episodes now - tolerated food. 7. Left lower lobe pneumonia - on anti-Bx, con't med rx. NO fevers now. 8. Peripheral arterial disease with nonhealing lower extremity ulcer - con't skin care. MARY JO AGUIRRE MD August 21, 2018 14:03
[2018-08-21] MEDS: ACETAMINOPHEN 325 MG TAB PO PRN (16:23)
[2018-08-21] MEDS: HEPARIN 1000 UNITS/ML 10 ML INJ CATHETER SCH (20:15)
--- NOTE | 2018-08-21 20:16 | ECORPT ---
DATE OF SERVICE: REFERRING PHYSICIAN: Kirstin Cordero MD REASON FOR EVALUATION: Chest pain. DESCRIPTION OF PROCEDURE: The patient was brought to the heart station in fasting condition. She wa s in bigeminy on presentation, but her blood pressure was stable. She had a successful Lexiscan inje ction. She tolerated the procedure well. She converted back to sinus rhythm. The imaging portion w ill be dictated separately. Dictated By: MARY JO AGUIRRE MD ML/NTS Conf#: [id number] DID#: [id number] CC: KIRSTIN CORDERO MD;*EndCC*
[2018-08-21] MEDS: EPOETIN ALFA-EPBX (ESRD) 4,000 UNIT/ML VIAL SC SCH (20:27)
[2018-08-22] VITALS (10 sets, daily range): BP systolic 123–156; BP diastolic 64–71; PULSE 62–76; RESP 19–20
[2018-08-22] MEDS: ZOLPIDEM 5 MG TAB PO PRN ×2 (01:05→21:13)
[2018-08-22] MEDS: ACCU-CHEK XX SCH (02:00)
[2018-08-22] MEDS: BUMETANIDE 1 MG TAB PO SCH ×2 (05:53→17:29)
--- NOTE | 2018-08-22 06:16 | EN ---
Date/Time of Note Date/Time of Note DATE: 08/22/18 TIME: 06:16 Event Note Medicine Medicine Event Note EMR reviewed. I coordinated and directed care with [employer] yesterday via Tele[employer]. Please reference telemediq logs. I will review and direct care today. BONITA RUBIO MD August 22, 2018 06:16
[2018-08-22] MEDS: PANTOPRAZOLE (EC) 40 MG TAB PO SCH (06:25)
[2018-08-22] MEDS: SEVELAMER CARBONATE 0.8 GM PKT PO SCH ×3 (07:45→17:29)
[2018-08-22] MEDS: INSULIN ASPART [NOVOLOG] 3 ML PEN SC SCH ×7 (07:52→20:23)
[2018-08-22] MEDS: BUSPIRONE 10 MG TAB PO SCH ×3 (08:14→20:16)
[2018-08-22] MEDS: HYDROCODONE/APAP (5/325) TAB PO PRN ×2 (08:14→14:56)
[2018-08-22] MEDS: GABAPENTIN 300 MG CAP PO SCH ×3 (08:14→20:17)
[2018-08-22] MEDS: MULTIVIT/CA CARB/B CMPLX/FA TAB PO SCH (08:15)
[2018-08-22] MEDS: GUAIFENESIN/CODEINE 5ML CUP PO PRN (08:15)
[2018-08-22] MEDS: DOCUSATE SODIUM 100 MG CAP PO SCH (08:16)
[2018-08-22] MEDS: APIXABAN 5 MG TABLET PO SCH ×2 (08:16→20:16)
[2018-08-22] MEDS: METOPROLOL 25 MG TAB PO SCH ×2 (08:16→20:16)
[2018-08-22] MEDS: ISOSORBIDE DINITRATE 10 MG TAB PO SCH ×3 (08:19→20:16)
[2018-08-22] MEDS: DILTIAZEM (CD) 120 MG CAP PO SCH (08:20)
[2018-08-22] MEDS: INSULIN GLARGINE [LANTus] (100 UNITS/ML) SYG SC SCH (08:21)
[2018-08-22] MEDS: DICLOFENAC SODIUM 1% GEL 100 GM TUBE TP SCH ×2 (08:23→20:18)
[2018-08-22] MEDS: CLOTRIMAZOLE 1% 45 GM VAG CR VAG SCH ×3 (09:00→20:17)
[2018-08-22] MEDS: ACETAMINOPHEN 325 MG TAB PO PRN (09:51)
[2018-08-22] MEDS: morphine 2 MG INJ IV PRN ×2 (10:46→20:20)
--- NOTE | 2018-08-22 11:00 | CONS ---
Assessment/Plan Assessment/Plan Assessment/Plan (Daily) -Hyperkalemia- per PMD - S/p sepsis d/t HCAP - fever and tachycardia resolved - HCAP - slowly improving - Likely underlying fluid overload - Per CXR 08/21/18 Questionable 1.4 cm right lower lobe nodular opacity. Follow- up CT chest is recommended. - ESRD on HD T-T-S - Hyperkalemia - Elevated troponin - H/o non-healing diabetic R foot ulceration with infection at site of recent debridement; cultures grew MSSA and Enterococcus (ESR 93) - S/p excisional sharp debridement of the right first toe involving skin and subcutaneous tissue on 06/11/2017 - Evidence of osteomyelitis at the remnant of the first distal phalanx per MRI R foot 06/24/2017 - DM with hypoglycemic episode - Hgb A1c 6.5% - Diabetic neuropathy - H/o diabetic foot infections/OM of b/l feet, s/p amputation of R two toes - H/o central stenosis with apparent recent re-vascularization - S/p placement of L IJ HD catheter 06/20/2017 - PVD - H/o LLE bypass - CHF and CAD - Anemia of chronic kidney disease - Morbid obesity - BMI 39.9 - H/o dysphagia, Group A pharyngitis screen was negative - H/o mildly dilated esophagus on CT (11/2016) and multiple distal erosive lesions in the distal esophagus per EGD (11/27/2016; path negative) - 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 Pt's sinuses are non-TTP. On a trial of renally dosed oseltamivir (06/30/2017-) Resulted: respiratory virus panel (negative), pertussis screen neg Recommendations: - Monitor closely off antibiotics; S/p Cefepime (08/09/2018-08/18/18) - consider short course of prednisone Above plan was d/w patient, patient's RN at the bedside verbally, and with Dr. Lucas via [email or web address] messaging. Thank you Consultation Date/Type/Reason Admit Date/Time August 09, 2018 at 17:42 Initial Consult Date 08/10/18 Type of Consult id Reason for Consultation SEPSIS/HCAP Requesting Provider: KIRSTIN SPANN MD Date/Time of Note DATE: 08/22/18 TIME: 11:00 24 HR Interval Summary Constitutional: requiring O2 Detailed Summary Eyes: no complaints ENT: no complaints Respiratory: no complaints Cardiovascular: no complaints Gastrointestinal: no complaints Genitourinary: no complaints Musculoskeletal: restricted range of motion Exam/Review of Systems Exam Vitals Vital Signs Date Temp Pulse Resp B/P (MAP) Pulse Ox O2 O2 Flow FiO2 Time Delivery Rate 08/22/18 76 08:01 08/22/18 97.8 20 123/64 95 Room Air 07:13 (83) 08/22/18 21 01:07 08/21/18 2.0 20:08 Intake and Output 08/21/18 08/21/18 08/22/18 1515:00 23:00 07:00 IntakeIntake Total 400 ml OutputOutput Total 3400 ml BalanceBalance -3000 ml Constitutional: alert, well developed, obese Psych: nl mood/affect Head: atraumatic Eyes: nl lids, nl sclera ENMT: nl external ears & nose Neck: non-tender Respiratory: diminished breath sounds (bilaterally at bases) Cardiovascular: nl pulses, other (s1s2) Gastrointestinal: soft, non-tender Musculoskeletal: muscle weakness Extremities: edema Neurological: nl speech, other (alert/responsive) Results Result Diagram: 08/22/18 0500 08/22/18 0500 Results 24hrs Laboratory Tests Test 08/21/18 17:44 08/21/18 20:38 08/22/18 05:00 08/22/18 06:23 Bedside Glucose 200 139 151 White Blood Count 5.5 # Red Blood Count 2.77 L Hemoglobin 9.5 L Hematocrit 30.8 L Mean Corpuscular 111.2 H Volume Mean Corpuscular 34.3 H Hemoglobin Mean Corpuscular 30.8 L Hemoglobin Concent Red Cell 17.7 H Distribution Width Platelet Count 209 Mean Platelet Volume 10.9 H Immature 0.400 Granulocytes % Neutrophils % 69.7 Lymphocytes % 15.3 Monocytes % 10.9 Eosinophils % 3.3 Basophils % 0.4 Nucleated Red Blood 0.0 Cells % Immature 0.020 Granulocytes # Neutrophils # 3.8 Lymphocytes # 0.8 Monocytes # 0.6 Eosinophils # 0.2 Basophils # 0.0 Nucleated Red Blood 0.0 Cells # Sodium Level 138 Potassium Level 5.4 H Chloride Level 102 Carbon Dioxide Level 25 Anion Gap 11 Blood Urea Nitrogen 57 H Creatinine 6.69 H Est Glomerular 6 L Filtrat Rate mL/min Glucose Level 158 # Calcium Level 9.2 Test 08/22/18 07:38 Bedside Glucose 150 Medications Medication Current Medications Buspirone HCl (Buspar) 10 mg TID PO Last administered on 08/22/18 08:14; Admin Dose 10 MG; Start 08/10/18 at 09:00 Diltiazem HCl (Cardizem Cd) 120 mg DAILY PO Last administered on 08/20/18 10:20; Admin Dose 120 MG; Start 08/10/18 at 09:00 Gabapentin (Neurontin) 300 mg TID PO Last administered on 08/22/18 08:14; Admin Dose 300 MG; Start 08/10/18 at 09:00 Metoprolol Tartrate (Lopressor) 25 mg BID PO Last administered on 08/22/18 08:16; Admin Dose 25 MG; Start 08/10/18 at 09:00 Pantoprazole (Protonix Tab) 40 mg AC BREAKFAST PO Last administered on 06:25; Admin Dose 40 MG; Start 08/10/18 at 07:00 Sevelamer Carbonate (Renvela) 1.6 gm WITH MEALS PO Last administered on 08/22/18 07:45; Admin Dose 1.6 GM; Start 08/10/18 at 08:00 Apixaban (Eliquis) 5 mg BID PO Last administered on 08/22/18 08:16; Admin Dose 5 MG; Start 08/10/18 at 09:00 Acetaminophen (Tylenol Tab) 650 mg Q6H PRN PO MILD PAIN(1-3)OR ELEVATED TEMP Last administered on 08/22/18 09:51; Admin Dose 650 MG; Start 08/09/18 at 23:30 Morphine Sulfate (morphine) 2 mg Q4H PRN IV SEVERE PAIN LEVEL 7-10 Last administered on 08/22/18 10:46; Admin Dose 2 MG; Start 08/09/18 at 23:30 Guaifenesin/ Codeine Phosphate (Robitussin Ac Liquid Cup) 10 ml Q4H PRN PO COUGH Last administered on 08/22/18 08:15; Admin Dose 10 ML; Start 08/09/18 at 23:30 Miscellaneous Information 1 ea NOTE XX ; Start 08/10/18 at 05:30 Glucose (Glutose) 15 gm Q15M PRN PO DECREASED GLUCOSE; Start 08/10/18 at 05:30 Glucose (Glutose) 22.5 gm Q15M PRN PO DECREASED GLUCOSE; Start 08/10/18 at 05:30 Dextrose (D50w Syringe) 25 ml Q15M PRN IV DECREASED GLUCOSE; Start 08/10/18 at 05:30 Dextrose (D50w Syringe) 50 ml Q15M PRN IV DECREASED GLUCOSE Last administered on 08/13/18at 21:34; Admin Dose 50 ML; Start 08/10/18 at 05:30 Glucagon (Glucagen) 1 mg Q15M PRN IM DECREASED GLUCOSE; Start 08/10/18 at 05:30 Glucose (Glutose) 15 gm Q15M PRN BUCCAL DECREASED GLUCOSE Last administered on 08/14/18at 19:18; Admin Dose 15 GM; Start 08/10/18 at 05:30 Insulin Aspart (Novolog Insulin Pen) NOVOLOG *MILD* ALGORI... AC MEALS AND BEDTIME SC Last administered on 08/22/18at 07:52; Admin Dose 1 UNIT; Start 08/10/18 at 08:00 Diagnostic Test (Pha) (Accu-Chek) 1 ea 02 XX Last administered on 08/20/18at 02:05; Admin Dose 1 EA; Start 08/11/18 at 02:00 Insulin Aspart (Novolog Insulin Pen) 10 unit WITH MEALS SC Last administered on 08/22/18at 07:52; Admin Dose 10 UNIT; Start 08/11/18 at 08:00 Docusate Sodium (Colace) 100 mg DAILY PO Last administered on 08/22/18at 08:16; Admin Dose 100 MG; Start 08/12/18 at 09:00 Tramadol HCl (Ultram) 50 mg Q12H PRN PO PAIN; Start 08/11/18 at 13:30 Diclofenac Sodium (Voltaren 1% Gel) 2 gm BID TP Last administered on 08/22/18at 08:23; Admin Dose 2 GM; Start 08/11/18 at 21:00 Acetaminophen/ Hydrocodone Bitart ([place] (5/325)) 1 tab Q4H PRN PO MODERATE PAIN LEVEL 4-6 Last administered on 08/22/18 08:14; Admin Dose 1 TAB; Start 08/12/18 at 15:00 Isosorbide Dinitrate (Isordil) 10 mg TID PO Last administered on 08/20/18 12:28; Admin Dose 10 MG; Start 08/12/18 at 21:00 Lorazepam (Ativan) 1 mg Q6H PRN IV ANXIETY Last administered on 08/21/18 23:05; Admin Dose 1 MG; Start 08/12/18 at 22:30 Heparin Sodium (Porcine) (Heparin (1000 Units/ml)) 4,000 unit AFTER DIALYSIS CATHETER Last administered on 08/21/18 20:15; Admin Dose 4,000 UNIT; Start 08/13/18 at 16:30 Senna (Senokot) 2 tab BID PRN PO CONSTIPATION Last administered on 08/19/18 21:48; Admin Dose 2 TAB; Start 08/14/18 at 12:00 Albuterol/ Ipratropium (Duoneb) 3 ml Q6H RESP THERAPY PRN HHN SHORTNESS OF BREATH Last administered on 08/20/18 03:20; Admin Dose 3 ML; Start 08/15/18 at 11:00 Ondansetron HCl (Zofran Inj) 4 mg Q6H PRN IV NAUSEA AND/OR VOMITING Last administered on 08/22/18 10:46; Admin Dose 4 MG; Start 08/15/18 at 11:00 Epoetin Bam-epbx (Retacrit (Esrd)) 4,000 unit TuThSa@1700 SC Last administered on 08/21/18 20:27; Admin Dose 4,000 UNIT; Start 08/17/18 at 17:00 Multivit/Ca Carb/ B Cmplx/FA/Prenat (Addie-Mikayla) 1 tab DAILY PO Last administered on 08/22/18 08:15; Admin Dose 1 TAB; Start 08/16/18 at 12:00 Hydrocortisone (Hydrocortisone 0.5% Cr) 1 applic BID PRN TOP ITCHING Last administered on 08/20/18 20:52; Admin Dose 1 APPLIC; Start 08/16/18 at 22:30 Zolpidem Tartrate (Ambien) 5 mg HS PRN PO INSOMNIA Last administered on 08/22/18 01:05; Admin Dose 5 MG; Start 08/17/18 at 21:30 Clotrimazole (Clotrim 1% Vaginal Cr) 1 applic BID VAG Last administered on 08/21/18 09:03; Admin Dose 1 APPLIC; Start 08/19/18 at 21:00; Stop 08/26/18 at 20:59 Bumetanide (Bumex) 2 mg BID DIURETICS PO Last administered on 08/22/18 05:53; Admin Dose 2 MG; Start 08/19/18 at 18:00 Insulin Glargine (Lantus) 22 units DAILY@0800 SC Last administered on 08/22/18 08:21; Admin Dose 22 UNITS; Start 08/20/18 at 08:00 Hydralazine HCl (Apresoline) 50 mg Q8 PO Last administered on 08/22/18 05:53; Admin Dose 50 MG; Start 08/20/18 at 14:00 Albuterol (Proventil 0.083% (Neb)) 1.25 mg Q2H RESP THERAPY PRN HHN shortness of breath; Start 08/21/18 at 11:00 Clonidine (Catapres) 0.1 mg Q6H PRN PO ELEVATED SYSTOLIC BP; Start 08/21/18 at 23:00 VIOLET RUDOLPH August 22, 2018 11:00
--- NOTE | 2018-08-22 11:27 | CONS ---
Consult Date/Type/Reason Admit Date/Time August 09, 2018 at 17:42 Initial Consult Date 08/10/18 Requesting Provider: KIRSTIN SPANN MD Date/Time of Note DATE: 08/22/18 TIME: 11:25 Subjective NO acute events - stres test EF 3&% - reversible defects are noted - might need LHC - will discuss with DR. William. ROS: No fever, no chills, no nausea, no vomiting, no diarrhea/constipation No recent weight changes No chest pain, no PND, no orthopnea - improved SOB No dizziness, blurred vision No thirst, no heat or cold intolerance Objective Vitals Vital Signs Date Temp Pulse Resp B/P (MAP) Pulse Ox O2 O2 Flow FiO2 Time Delivery Rate 08/22/18 98.2 67 20 151/71 100 Room Air 11:14 (97) 08/22/18 21 01:07 08/21/18 2.0 20:08 Intake and Output 08/21/18 08/21/18 08/22/18 1414:59 22:59 06:59 IntakeIntake Total 400 ml OutputOutput Total 3400 ml BalanceBalance -3000 ml Exam General: WN/WD/NAD, AOx 3 HEENT: Unicetric/atraumatic/EOMI (follow commands) NECK: JVD elevated, no thyromegaly Lymph: no lymphadenopathy HEART: regular with no S3, II/ systolic murmur at apex, PMI L LUNGS: Coarse sounds ABD: soft, NT, ND, +BS : Intact Neuro: non focal SKIN: chronic changes EXT: less edema Results/Medications Result Diagram: 08/22/18 0500 08/22/18 0500 Results 24 hrs Laboratory Tests Test 08/21/18 17:44 08/21/18 20:38 08/22/18 05:00 08/22/18 06:23 Bedside Glucose 200 139 151 White Blood Count 5.5 # Red Blood Count 2.77 L Hemoglobin 9.5 L Hematocrit 30.8 L Mean Corpuscular 111.2 H Volume Mean Corpuscular 34.3 H Hemoglobin Mean Corpuscular 30.8 L Hemoglobin Concent Red Cell 17.7 H Distribution Width Platelet Count 209 Mean Platelet Volume 10.9 H Immature 0.400 Granulocytes % Neutrophils % 69.7 Lymphocytes % 15.3 Monocytes % 10.9 Eosinophils % 3.3 Basophils % 0.4 Nucleated Red Blood 0.0 Cells % Immature 0.020 Granulocytes # Neutrophils # 3.8 Lymphocytes # 0.8 Monocytes # 0.6 Eosinophils # 0.2 Basophils # 0.0 Nucleated Red Blood 0.0 Cells # Sodium Level 138 Potassium Level 5.4 H Chloride Level 102 Carbon Dioxide Level 25 Anion Gap 11 Blood Urea Nitrogen 57 H Creatinine 6.69 H Est Glomerular 6 L Filtrat Rate mL/min Glucose Level 158 # Calcium Level 9.2 Test 08/22/18 07:38 Bedside Glucose 150 Home Meds Reported Medications Albuterol Sulfate* (Ventolin HFA*) 18 Gm Hfa.aer.ad, 2 PUFF INHALATION Q6H, #1 INHALER 08/15/18 Metoprolol Tartrate* (Lopressor*) 25 Mg Tab, 25 MG PO BID, #60 TAB 08/09/18 Pantoprazole* (Pantoprazole*) 40 Mg Tablet.dr, 40 MG PO AC BREAKFAST, TAB 08/09/18 Diltiazem Hcl* (Diltiazem XT) 120 Mg Capsule.sa, 120 MG PO DAILY, #30 CAP 08/09/18 Amlodipine Besylate* (Norvasc*) 5 Mg Tablet, 5 MG PO DAILY, TAB 08/09/18 Buspirone Hcl* (Buspirone Hcl*) 10 Mg Tab, 10 MG PO TID, TAB 08/09/18 Furosemide* (Furosemide*) 20 Mg Tablet, 20 MG PO DAILY, #60 TAB 08/09/18 Gabapentin* (Gabapentin*) 300 Mg Capsule, 300 MG PO TID, #90 CAP 08/09/18 Methocarbamol* (Methocarbamol*) 500 Mg Tablet, 500 MG PO DAILY, TAB 08/09/18 Sevelamer Hcl* (Renagel*) 800 Mg Tablet, 1600 MG PO WITH MEALS, TAB 08/09/18 Apixaban* (Eliquis*) 5 Mg Tablet, 5 MG PO BID, TAB 08/09/18 Medications Current Medications Buspirone HCl (Buspar) 10 mg TID PO Last administered on 08/22/18at 08:14; Admin Dose 10 MG; Start 08/10/18 at 09:00 Diltiazem HCl (Cardizem Cd) 120 mg DAILY PO Last administered on 08/20/18at 10:20; Admin Dose 120 MG; Start 08/10/18 at 09:00 Gabapentin (Neurontin) 300 mg TID PO Last administered on 08/22/18 08:14; Admin Dose 300 MG; Start 08/10/18 at 09:00 Metoprolol Tartrate (Lopressor) 25 mg BID PO Last administered on 08/22/18 08: 16; Admin Dose 25 MG; Start 08/10/18 at 09:00 Pantoprazole (Protonix Tab) 40 mg AC BREAKFAST PO Last administered on 08/22/18 06:25; Admin Dose 40 MG; Start 08/10/18 at 07:00 Sevelamer Carbonate (Renvela) 1.6 gm WITH MEALS PO Last administered on 08/22/18 07:45; Admin Dose 1.6 GM; Start 08/10/18 at 08:00 Apixaban (Eliquis) 5 mg BID PO Last administered on 08/22/18 08:16; Admin Dose 5 MG; Start 08/10/18 at 09:00 Acetaminophen (Tylenol Tab) 650 mg Q6H PRN PO MILD PAIN(1-3)OR ELEVATED TEMP Last administered on 08/22/18 09:51; Admin Dose 650 MG; Start 08/09/18 at 23:30 Morphine Sulfate (morphine) 2 mg Q4H PRN IV SEVERE PAIN LEVEL 7-10 Last administered on 08/22/18 10:46; Admin Dose 2 MG; Start 08/09/18 at 23:30 Guaifenesin/ Codeine Phosphate (Robitussin Ac Liquid Cup) 10 ml Q4H PRN PO C OUGH Last administered on 08/22/18 08:15; Admin Dose 10 ML; Start 08/09/18 at 23:30 Miscellaneous Information 1 ea NOTE XX ; Start 08/10/18 at 05:30 Glucose (Glutose) 15 gm Q15M PRN PO DECREASED GLUCOSE; Start 08/10/18 at 05:30 Glucose (Glutose) 22.5 gm Q15M PRN PO DECREASED GLUCOSE; Start 08/10/18 at 05:30 Dextrose (D50w Syringe) 25 ml Q15M PRN IV DECREASED GLUCOSE; Start 08/10/18 at 05:30 Dextrose (D50w Syringe) 50 ml Q15M PRN IV DECREASED GLUCOSE Last administered on 08/13/18 21:34; Admin Dose 50 ML; Start 08/10/18 at 05:30 Glucagon (Glucagen) 1 mg Q15M PRN IM DECREASED GLUCOSE; Start 08/10/18 at 05:30 Glucose (Glutose) 15 gm Q15M PRN BUCCAL DECREASED GLUCOSE Last administered on 08/14/18 19:18; Admin Dose 15 GM; Start 08/10/18 at 05:30 Insulin Aspart (Novolog Insulin Pen) NOVOLOG *MILD* ALGORI... AC MEALS AND BEDTIME SC Last administered on 08/22/18 07:52; Admin Dose 1 UNIT; Start 08/10/18 at 08:00 Diagnostic Test (Pha) (Accu-Chek) 1 ea 02 XX Last administered on 08/20/18 02:05; Admin Dose 1 EA; Start 08/11/18 at 02:00 Insulin Aspart (Novolog Insulin Pen) 10 unit WITH MEALS SC Last administered on 08/22/18 07:52; Admin Dose 10 UNIT; Start 08/11/18 at 08:00 Docusate Sodium (Colace) 100 mg DAILY PO Last administered on 08/22/18 08:16; Admin Dose 100 MG; Start 08/12/18 at 09:00 Tramadol HCl (Ultram) 50 mg Q12H PRN PO PAIN; Start 08/11/18 at 13:30 Diclofenac Sodium (Voltaren 1% Gel) 2 gm BID TP Last administered on 08/22/18 08:23; Admin Dose 2 GM; Start 08/11/18 at 21:00 Acetaminophen/ Hydrocodone Bitart ([place] (5/325)) 1 tab Q4H PRN PO MODERATE PAIN LEVEL 4-6 Last administered on 08/22/18 08:14; Admin Dose 1 TAB; Start 08/12/18 at 15:00 Isosorbide Dinitrate (Isordil) 10 mg TID PO Last administered on 08/20/18 12:28; Admin Dose 10 MG; Start 08/12/18 at 21:00 Lorazepam (Ativan) 1 mg Q6H PRN IV ANXIETY Last administered on 08/21/18 23:05; Admin Dose 1 MG; Start 08/12/18 at 22:30 Heparin Sodium (Porcine) (Heparin (1000 Units/ml)) 4,000 unit AFTER DIALYSIS C ATHETER Last administered on 08/21/18 20:15; Admin Dose 4,000 UNIT; Start 08/13/18 at 16:30 Senna (Senokot) 2 tab BID PRN PO CONSTIPATION Last administered on 08/19/18 21:48; Admin Dose 2 TAB; Start 08/14/18 at 12:00 Albuterol/ Ipratropium (Duoneb) 3 ml Q6H RESP THERAPY PRN HHN SHORTNESS OF PAULO ATH Last administered on 08/20/18 03:20; Admin Dose 3 ML; Start 08/15/18 at 11:00 Ondansetron HCl (Zofran Inj) 4 mg Q6H PRN IV NAUSEA AND/OR VOMITING Last administered on 08/22/18 10:46; Admin Dose 4 MG; Start 08/15/18 at 11:00 Epoetin Bam-epbx (Retacrit (Esrd)) 4,000 unit TuThSa@1700 SC Last administered on 08/21/18 20:27; Admin Dose 4,000 UNIT; Start 08/17/18 at 17:00 Multivit/Ca Carb/ B Cmplx/FA/Prenat (Addie-Mikayla) 1 tab DAILY PO Last administered on 08/22/18 08:15; Admin Dose 1 TAB; Start 08/16/18 at 12:00 Hydrocortisone (Hydrocortisone 0.5% Cr) 1 applic BID PRN TOP ITCHING Last ad ministered on 08/20/18 20:52; Admin Dose 1 APPLIC; Start 08/16/18 at 22:30 Zolpidem Tartrate (Ambien) 5 mg HS PRN PO INSOMNIA Last administered on 08/22/18 01:05; Admin Dose 5 MG; Start 08/17/18 at 21:30 Clotrimazole (Clotrim 1% Vaginal Cr) 1 applic BID VAG Last administered on 08/21/18 09:03; Admin Dose 1 APPLIC; Start 08/19/18 at 21:00; Stop 08/26/18 at 20:59 Bumetanide (Bumex) 2 mg BID DIURETICS PO Last administered on 08/22/18 05:53; Admin Dose 2 MG; Start 08/19/18 at 18:00 Insulin Glargine (Lantus) 22 units DAILY@0800 SC Last administered on 08/22/18at 08:21; Admin Dose 22 UNITS; Start 08/20/18 at 08:00 Hydralazine HCl (Apresoline) 50 mg Q8 PO Last administered on 08/22/18at 05:53; Admin Dose 50 MG; Start 08/20/18 at 14:00 Albuterol (Proventil 0.083% (Neb)) 1.25 mg Q2H RESP THERAPY PRN HHN shortness of breath; Start 08/21/18 at 11:00 Clonidine (Catapres) 0.1 mg Q6H PRN PO ELEVATED SYSTOLIC BP; Start 08/21/18 at 23:00 Assessment/Plan Hospital Course (Demo Recall) 1. Positive troponin, assess significance in the setting of renal failure, likely type 2 demand infarct in the setting of pneumoni - AGREED TO Stress test - F3&%, reversible ischemia- will discuss [facility] with DR. William. 2. Atrial fibrillation, rate controlled - con't to follow. No tachy-prasad episodes noted. Better now. Controlled. Treated. NOW N SINUS with [place]. NOw sinus. 3. Abnormal electrocardiogram, assess for true acute coronary syndrome. NO CP - refused stress test. 4. Hypertension, well controlled - HD to follow. Defer to renal team. Better. Con;t med rx. Traeted. Con't Rx. 5. End-stage renal disease, on hemodialysi s - pt asking for "more HD" - will defer to renal team now. Renal team fallows. 6. Nausea- better now - in good satus now. NO new episodes now - tolerated food. 7. Left lower lobe pneumonia - on anti-Bx, con't med rx. NO fevers now. 8. Peripheral arterial disease with nonhealing lower extremity ulcer - con't skin care. MARY JO AGUIRRE MD August 22, 2018 11:27
--- NOTE | 2018-08-22 11:30 | PN ---
Date/Time of Note Date/Time of Note DATE: 08/22/18 TIME: 11:30 Assessment/Plan VTE Prophylaxis Risk score (from [facility] [place])>0 risk: 7 SCD applied (from [facility] [place]): No SCD contraindicated: other Pharmacological prophylaxis: LMWH Lines/Catheters IV [facility] [place] Urinary Cath still in place: No Assessment/Plan Hospital Course - BLE swelling/pain - venous doppler -Healthcare associated pneumonia, continue broad-spectrum antibiotics - Dr. Lucas is following in infection disease consultation. - CXR - showed increased congestion -Hyperkalemia- resolved -Dialysis dependent end-stage renal disease. Dr. Spicer is following in nephrology consultation. -Elevated troponin likely type 2 demand infarct in the setting of pneumonia, pt declined Stress test. Dr. William is following in cardiology consultation. -Atrial fibrillation, continue metoprolol and Eliquis. -Anemia of chronic disease, continue Epogen. -Diabetes mellitus type 2 with hemoglobin A1c of 6.5, continue Lantus and NovoLog -Peripheral vascular disease history of left lower extremity bypass surgery. -Right foot ulcer. Dr. Pineda is following and podiatry consultation. Result Diagram: 08/22/18 0500 08/22/18 0500 Results 24hrs Laboratory Tests Test 08/21/18 17:44 08/21/18 20:38 08/22/18 05:00 08/22/18 06:23 Bedside Glucose 200 139 151 White Blood Count 5.5 # Red Blood Count 2.77 L Hemoglobin 9.5 L Hematocrit 30.8 L Mean Corpuscular 111.2 H Volume Mean Corpuscular 34.3 H Hemoglobin Mean Corpuscular 30.8 L Hemoglobin Concent Red Cell 17.7 H Distribution Width Platelet Count 209 Mean Platelet Volume 10.9 H Immature 0.400 Granulocytes % Neutrophils % 69.7 Lymphocytes % 15.3 Monocytes % 10.9 Eosinophils % 3.3 Basophils % 0.4 Nucleated Red Blood 0.0 Cells % Immature 0.020 Granulocytes # Neutrophils # 3.8 Lymphocytes # 0.8 Monocytes # 0.6 Eosinophils # 0.2 Basophils # 0.0 Nucleated Red Blood 0.0 Cells # Sodium Level 138 Potassium Level 5.4 H Chloride Level 102 Carbon Dioxide Level 25 Anion Gap 11 Blood Urea Nitrogen 57 H Creatinine 6.69 H Est Glomerular 6 L Filtrat Rate mL/min Glucose Level 158 # Calcium Level 9.2 Test 08/22/18 07:38 Bedside Glucose 150 Subjective 24 Hr Interval Summary Free Text/Dictation Patient complain of joint pain and shortness of breath that started after her stress test Exam/Review of Systems Exam Vitals Vital Signs Date Temp Pulse Resp B/P (MAP) Pulse Ox O2 O2 Flow FiO2 Time Delivery Rate 08/22/18 98.2 67 20 151/71 100 Room Air 11:14 (97) 08/22/18 21 01:07 08/21/18 2.0 20:08 Intake and Output 08/21/18 08/21/18 08/22/18 1515:00 23:00 07:00 IntakeIntake Total 400 ml OutputOutput Total 3400 ml BalanceBalance -3000 ml Constitutional: well developed Head: normocephalic, atraumatic Neck: supple Respiratory: diminished breath sounds Cardiovascular: regular rate and rhythm Gastrointestinal: soft, non-tender Extremities: normal pulses Results Results 24hrs Laboratory Tests Test 08/21/18 17:44 08/21/18 20:38 08/22/18 05:00 08/22/18 06:23 Bedside Glucose 200 139 151 White Blood Count 5.5 # Red Blood Count 2.77 L Hemoglobin 9.5 L Hematocrit 30.8 L Mean Corpuscular 111.2 H Volume Mean Corpuscular 34.3 H Hemoglobin Mean Corpuscular 30.8 L Hemoglobin Concent Red Cell 17.7 H Distribution Width Platelet Count 209 Mean Platelet Volume 10.9 H Immature 0.400 Granulocytes % Neutrophils % 69.7 Lymphocytes % 15.3 Monocytes % 10.9 Eosinophils % 3.3 Basophils % 0.4 Nucleated Red Blood 0.0 Cells % Immature 0.020 Granulocytes # Neutrophils # 3.8 Lymphocytes # 0.8 Monocytes # 0.6 Eosinophils # 0.2 Basophils # 0.0 Nucleated Red Blood 0.0 Cells # Sodium Level 138 Potassium Level 5.4 H Chloride Level 102 Carbon Dioxide Level 25 Anion Gap 11 Blood Urea Nitrogen 57 H Creatinine 6.69 H Est Glomerular 6 L Filtrat Rate mL/min Glucose Level 158 # Calcium Level 9.2 Test 08/22/18 07:38 Bedside Glucose 150 Medications Medication Current Medications Buspirone HCl (Buspar) 10 mg TID PO Last administered on 08/22/18at 08:14; Admin Dose 10 MG; Start 08/10/18 at 09:00 Diltiazem HCl (Cardizem Cd) 120 mg DAILY PO Last administered on 08/20/18 10:20; Admin Dose 120 MG; Start 08/10/18 at 09:00 Gabapentin (Neurontin) 300 mg TID PO Last administered on 08/22/18 08:14; Admin Dose 300 MG; Start 08/10/18 at 09:00 Metoprolol Tartrate (Lopressor) 25 mg BID PO Last administered on 08/22/18 08:16; Admin Dose 25 MG; Start 08/10/18 at 09:00 Pantoprazole (Protonix Tab) 40 mg AC BREAKFAST PO Last administered on 08/22/18 06:25; Admin Dose 40 MG; Start 08/10/18 at 07:00 Sevelamer Carbonate (Renvela) 1.6 gm WITH MEALS PO Last administered on 08/22/18 07:45; Admin Dose 1.6 GM; Start 08/10/18 at 08:00 Apixaban (Eliquis) 5 mg BID PO Last administered on 08/22/18 08:16; Admin Dose 5 MG; Start 08/10/18 at 09:00 Acetaminophen (Tylenol Tab) 650 mg Q6H PRN PO MILD PAIN(1-3)OR ELEVATED TEMP Last administered on 08/22/18 09:51; Admin Dose 650 MG; Start 08/09/18 at 23:30 Morphine Sulfate (morphine) 2 mg Q4H PRN IV SEVERE PAIN LEVEL 7-10 Last administered on 08/22/18 10:46; Admin Dose 2 MG; Start 08/09/18 at 23:30 Guaifenesin/ Codeine Phosphate (Robitussin Ac Liquid Cup) 10 ml Q4H PRN PO COUGH Last administered on 08/22/18 08:15; Admin Dose 10 ML; Start 08/09/18 at 23:30 Miscellaneous Information 1 ea NOTE XX ; Start 08/10/18 at 05:30 Glucose (Glutose) 15 gm Q15M PRN PO DECREASED GLUCOSE; Start 08/10/18 at 05:30 Glucose (Glutose) 22.5 gm Q15M PRN PO DECREASED GLUCOSE; Start 08/10/18 at 05:30 Dextrose (D50w Syringe) 25 ml Q15M PRN IV DECREASED GLUCOSE; Start 08/10/18 at 05:30 Dextrose (D50w Syringe) 50 ml Q15M PRN IV DECREASED GLUCOSE Last administered on 08/13/18 21:34; Admin Dose 50 ML; Start 08/10/18 at 05:30 Glucagon (Glucagen) 1 mg Q15M PRN IM DECREASED GLUCOSE; Start 08/10/18 at 05:30 Glucose (Glutose) 15 gm Q15M PRN BUCCAL DECREASED GLUCOSE Last administered on 08/14/18 19:18; Admin Dose 15 GM; Start 08/10/18 at 05:30 Insulin Aspart (Novolog Insulin Pen) NOVOLOG *MILD* ALGORI... AC MEALS AND BEDTIME SC Last administered on 08/22/18 07:52; Admin Dose 1 UNIT; Start 08/10/18 at 08:00 Diagnostic Test (Pha) (Accu-Chek) 1 ea 02 XX Last administered on 08/20/18 02:05; Admin Dose 1 EA; Start 08/11/18 at 02:00 Insulin Aspart (Novolog Insulin Pen) 10 unit WITH MEALS SC Last administered on 08/22/18 07:52; Admin Dose 10 UNIT; Start 08/11/18 at 08:00 Docusate Sodium (Colace) 100 mg DAILY PO Last administered on 08/22/18 08:16; Admin Dose 100 MG; Start 08/12/18 at 09:00 Tramadol HCl (Ultram) 50 mg Q12H PRN PO PAIN; Start 08/11/18 at 13:30 Diclofenac Sodium (Voltaren 1% Gel) 2 gm BID TP Last administered on 08/22/18 08:23; Admin Dose 2 GM; Start 08/11/18 at 21:00 Acetaminophen/ Hydrocodone Bitart ([place] (5/325)) 1 tab Q4H PRN PO MODERATE PAIN LEVEL 4-6 Last administered on 08/22/18 08:14; Admin Dose 1 TAB; Start 08/12/18 at 15:00 Isosorbide Dinitrate (Isordil) 10 mg TID PO Last administered on 08/20/18 12:28; Admin Dose 10 MG; Start 08/12/18 at 21:00 Lorazepam (Ativan) 1 mg Q6H PRN IV ANXIETY Last administered on 5/18/19at 23:05; Admin Dose 1 MG; Start 08/12/18 at 22:30 Heparin Sodium (Porcine) (Heparin (1000 Units/ml)) 4,000 unit AFTER DIALYSIS CATHETER Last administered on 08/21/18 20:15; Admin Dose 4,000 UNIT; Start 08/13/18 at 16:30 Senna (Senokot) 2 tab BID PRN PO CONSTIPATION Last administered on 08/19/18 21:48; Admin Dose 2 TAB; Start 08/14/18 at 12:00 Albuterol/ Ipratropium (Duoneb) 3 ml Q6H RESP THERAPY PRN HHN SHORTNESS OF BREATH Last administered on 08/20/18 03:20; Admin Dose 3 ML; Start 08/15/18 at 11:00 Ondansetron HCl (Zofran Inj) 4 mg Q6H PRN IV NAUSEA AND/OR VOMITING Last administered on 08/22/18 10:46; Admin Dose 4 MG; Start 08/15/18 at 11:00 Epoetin Bam-epbx (Retacrit (Esrd)) 4,000 unit TuThSa@1700 SC Last administered on 08/21/18 20:27; Admin Dose 4,000 UNIT; Start 08/17/18 at 17:00 Multivit/Ca Carb/ B Cmplx/FA/Prenat (Addie-Mikayla) 1 tab DAILY PO Last administered on 08/22/18 08:15; Admin Dose 1 TAB; Start 08/16/18 at 12:00 Hydrocortisone (Hydrocortisone 0.5% Cr) 1 applic BID PRN TOP ITCHING Last administered on 08/20/18 20:52; Admin Dose 1 APPLIC; Start 08/16/18 at 22:30 Zolpidem Tartrate (Ambien) 5 mg HS PRN PO INSOMNIA Last administered on 08/22/18 01:05; Admin Dose 5 MG; Start 08/17/18 at 21:30 Clotrimazole (Clotrim 1% Vaginal Cr) 1 applic BID VAG Last administered on 08/21/18 09:03; Admin Dose 1 APPLIC; Start 08/19/18 at 21:00; Stop 08/26/18 at 20:59 Bumetanide (Bumex) 2 mg BID DIURETICS PO Last administered on 08/22/18 05:53; Admin Dose 2 MG; Start 08/19/18 at 18:00 Insulin Glargine (Lantus) 22 units DAILY@0800 SC Last administered on 08/22/18at 08:21; Admin Dose 22 UNITS; Start 08/20/18 at 08:00 Hydralazine HCl (Apresoline) 50 mg Q8 PO Last administered on 08/22/18at 05:53; Admin Dose 50 MG; Start 08/20/18 at 14:00 Albuterol (Proventil 0.083% (Neb)) 1.25 mg Q2H RESP THERAPY PRN HHN shortness of breath; Start 08/21/18 at 11:00 Clonidine (Catapres) 0.1 mg Q6H PRN PO ELEVATED SYSTOLIC BP; Start 08/21/18 at 23:00 CARYL PANTOJA August 22, 2018 11:30
--- NOTE | 2018-08-22 11:59 | CONS ---
Consult Date/Type/Reason Admit Date/Time August 09, 2018 at 17:42 Initial Consult Date 08/10/18 Type of Consult Pulmonary Requesting Provider: KIRSTIN SPANN MD Date/Time of Note DATE: 08/22/18 TIME: 11:58 Subjective Patient comfortable denies any respiratory distress. Complaining of central chest discomfort. Objective Vital Signs Date Temp Pulse Resp B/P (MAP) Pulse Ox O2 O2 Flow FiO2 Time Delivery Rate 08/22/18 98.2 67 20 151/71 100 Room Air 11:14 (97) 08/22/18 21 01:07 08/21/18 2.0 20:08 Intake and Output 08/21/18 08/21/18 08/22/18 1515:00 23:00 07:00 IntakeIntake Total 400 ml OutputOutput Total 3400 ml BalanceBalance -3000 ml Exam GENERAL: Morbidly obese lady awake alert comfortable no respiratory distress VITAL SIGNS: per chart NECK: Supple. No JVD or lymphadenopathy. CARDIAC EXAM: S1, S2. No added sounds or murmurs. CHEST: clear bilaterally, No added sounds, rales or wheezes ABDOMEN: Soft, nontender. No guarding or rebound. EXTREMITIES: No cyanosis, clubbing or edema. NEUROLOGIC: Generalized weakness. No focal deficits. Vent Setting Fraction of Inspired Oxygen pe: 21 Results/Medications Result Diagram: 08/22/18 0500 08/22/18 0500 Results 24 hrs Laboratory Tests Test 08/21/18 17:44 08/21/18 20:38 08/22/18 05:00 08/22/18 06:23 Bedside Glucose 200 139 151 White Blood Count 5.5 # Red Blood Count 2.77 L Hemoglobin 9.5 L Hematocrit 30.8 L Mean Corpuscular 111.2 H Volume Mean Corpuscular 34.3 H Hemoglobin Mean Corpuscular 30.8 L Hemoglobin Concent Red Cell 17.7 H Distribution Width Platelet Count 209 Mean Platelet Volume 10.9 H Immature 0.400 Granulocytes % Neutrophils % 69.7 Lymphocytes % 15.3 Monocytes % 10.9 Eosinophils % 3.3 Basophils % 0.4 Nucleated Red Blood 0.0 Cells % Immature 0.020 Granulocytes # Neutrophils # 3.8 Lymphocytes # 0.8 Monocytes # 0.6 Eosinophils # 0.2 Basophils # 0.0 Nucleated Red Blood 0.0 Cells # Sodium Level 138 Potassium Level 5.4 H Chloride Level 102 Carbon Dioxide Level 25 Anion Gap 11 Blood Urea Nitrogen 57 H Creatinine 6.69 H Est Glomerular 6 L Filtrat Rate mL/min Glucose Level 158 # Calcium Level 9.2 Test 08/22/18 07:38 08/22/18 11:51 Bedside Glucose 150 81 Medications Current Medications Buspirone HCl (Buspar) 10 mg TID PO Last administered on 08/22/18 08:14; Admin Dose 10 MG; Start 08/10/18 at 09:00 Diltiazem HCl (Cardizem Cd) 120 mg DAILY PO Last administered on 08/20/18 10:20; Admin Dose 120 MG; Start 08/10/18 at 09:00 Gabapentin (Neurontin) 300 mg TID PO Last administered on 08/22/18 08:14; Admin Dose 300 MG; Start 08/10/18 at 09:00 Metoprolol Tartrate (Lopressor) 25 mg BID PO Last administered on 08/22/18 08:16; Admin Dose 25 MG; Start 08/10/18 at 09:00 Pantoprazole (Protonix Tab) 40 mg AC BREAKFAST PO Last administered on 08/22/18 06:25; Admin Dose 40 MG; Start 08/10/18 at 07:00 Sevelamer Carbonate (Renvela) 1.6 gm WITH MEALS PO Last administered on 08/22/18 07:45; Admin Dose 1.6 GM; Start 08/10/18 at 08:00 Apixaban (Eliquis) 5 mg BID PO Last administered on 08/22/18 08:16; Admin Dose 5 MG; Start 08/10/18 at 09:00 Acetaminophen (Tylenol Tab) 650 mg Q6H PRN PO MILD PAIN(1-3)OR ELEVATED TEMP Last administered on 08/22/18 09:51; Admin Dose 650 MG; Start 08/09/18 at 23:30 Morphine Sulfate (morphine) 2 mg Q4H PRN IV SEVERE PAIN LEVEL 7-10 Last administered on 08/22/18 10:46; Admin Dose 2 MG; Start 08/09/18 at 23:30 Guaifenesin/ Codeine Phosphate (Robitussin Ac Liquid Cup) 10 ml Q4H PRN PO COUGH Last administered on 5/19/19at 08:15; Admin Dose 10 ML; Start 08/09/18 at 23:30 Miscellaneous Information 1 ea NOTE XX ; Start 08/10/18 at 05:30 Glucose (Glutose) 15 gm Q15M PRN PO DECREASED GLUCOSE; Start 08/10/18 at 05:30 Glucose (Glutose) 22.5 gm Q15M PRN PO DECREASED GLUCOSE; Start 08/10/18 at 05:30 Dextrose (D50w Syringe) 25 ml Q15M PRN IV DECREASED GLUCOSE; Start 08/10/18 at 05:30 Dextrose (D50w Syringe) 50 ml Q15M PRN IV DECREASED GLUCOSE Last administered on 08/13/18at 21:34; Admin Dose 50 ML; Start 08/10/18 at 05:30 Glucagon (Glucagen) 1 mg Q15M PRN IM DECREASED GLUCOSE; Start 08/10/18 at 05:30 Glucose (Glutose) 15 gm Q15M PRN BUCCAL DECREASED GLUCOSE Last administered on 08/14/18at 19:18; Admin Dose 15 GM; Start 08/10/18 at 05:30 Insulin Aspart (Novolog Insulin Pen) NOVOLOG *MILD* ALGORI... AC MEALS AND BEDTIME SC Last administered on 08/22/18at 07:52; Admin Dose 1 UNIT; Start 08/10/18 at 08:00 Diagnostic Test (Pha) (Accu-Chek) 1 ea 02 XX Last administered on 08/20/18at 02:05; Admin Dose 1 EA; Start 08/11/18 at 02:00 Insulin Aspart (Novolog Insulin Pen) 10 unit WITH MEALS SC Last administered on 08/22/18at 07:52; Admin Dose 10 UNIT; Start 08/11/18 at 08:00 Docusate Sodium (Colace) 100 mg DAILY PO Last administered on 08/22/18at 08:16; Admin Dose 100 MG; Start 08/12/18 at 09:00 Tramadol HCl (Ultram) 50 mg Q12H PRN PO PAIN; Start 08/11/18 at 13:30 Diclofenac Sodium (Voltaren 1% Gel) 2 gm BID TP Last administered on 08/22/18at 08:23; Admin Dose 2 GM; Start 08/11/18 at 21:00 Acetaminophen/ Hydrocodone Bitart ([place] (5/325)) 1 tab Q4H PRN PO MODERATE PAIN LEVEL 4-6 Last administered on 08/22/18 08:14; Admin Dose 1 TAB; Start 08/12/18 at 15:00 Isosorbide Dinitrate (Isordil) 10 mg TID PO Last administered on 08/20/18 12:28; Admin Dose 10 MG; Start 08/12/18 at 21:00 Lorazepam (Ativan) 1 mg Q6H PRN IV ANXIETY Last administered on 08/21/18 23:05; Admin Dose 1 MG; Start 08/12/18 at 22:30 Heparin Sodium (Porcine) (Heparin (1000 Units/ml)) 4,000 unit AFTER DIALYSIS CATHETER Last administered on 08/21/18 20:15; Admin Dose 4,000 UNIT; Start 08/13/18 at 16:30 Senna (Senokot) 2 tab BID PRN PO CONSTIPATION Last administered on 08/19/18 21:48; Admin Dose 2 TAB; Start 08/14/18 at 12:00 Albuterol/ Ipratropium (Duoneb) 3 ml Q6H RESP THERAPY PRN HHN SHORTNESS OF BREATH Last administered on 08/20/18 03:20; Admin Dose 3 ML; Start 08/15/18 at 11:00 Ondansetron HCl (Zofran Inj) 4 mg Q6H PRN IV NAUSEA AND/OR VOMITING Last administered on 08/22/18 10:46; Admin Dose 4 MG; Start 08/15/18 at 11:00 Epoetin Bam-epbx (Retacrit (Esrd)) 4,000 unit TuThSa@1700 SC Last administered on 08/21/18 20:27; Admin Dose 4,000 UNIT; Start 08/17/18 at 17:00 Multivit/Ca Carb/ B Cmplx/FA/Prenat (Addie-Mikayla) 1 tab DAILY PO Last administered on 08/22/18 08:15; Admin Dose 1 TAB; Start 08/16/18 at 12:00 Hydrocortisone (Hydrocortisone 0.5% Cr) 1 applic BID PRN TOP ITCHING Last administered on 08/20/18 20:52; Admin Dose 1 APPLIC; Start 08/16/18 at 22:30 Zolpidem Tartrate (Ambien) 5 mg HS PRN PO INSOMNIA Last administered on 08/22/18 01:05; Admin Dose 5 MG; Start 08/17/18 at 21:30 Clotrimazole (Clotrim 1% Vaginal Cr) 1 applic BID VAG Last administered on 08/22/18 11:53; Admin Dose 1 APPLIC; Start 08/19/18 at 21:00; Stop 08/26/18 at 20:59 Bumetanide (Bumex) 2 mg BID DIURETICS PO Last administered on 08/22/18 05:53; Admin Dose 2 MG; Start 08/19/18 at 18:00 Insulin Glargine (Lantus) 22 units DAILY@0800 SC Last administered on 08/22/18 08:21; Admin Dose 22 UNITS; Start 08/20/18 at 08:00 Hydralazine HCl (Apresoline) 50 mg Q8 PO Last administered on 08/22/18 05:53; Admin Dose 50 MG; Start 08/20/18 at 14:00 Albuterol (Proventil 0.083% (Neb)) 1.25 mg Q2H RESP THERAPY PRN HHN shortness of breath; Start 08/21/18 at 11:00 Clonidine (Catapres) 0.1 mg Q6H PRN PO ELEVATED SYSTOLIC BP; Start 08/21/18 at 23:00 Menthol/Methyl Salicylate (Sahil Carrillo) 1 applic TID TOP ; Start 08/22/18 at 13:00 Assessment/Plan Hospital Course (Demo Recall) IMPRESSION 1. Worsening hypoxemia likely secondary to increased volume overload. Appears clinically improved. 2. End-stage renal failure on hemodialysis. 3. Likely moderate to severe chronic obstructive pulmonary disease. 4. Probable obstructive sleep apnea. 5. Essential hypertension. 6. Diabetes mellitus. Plan 1. Continue hemodialysis as tolerated 2. Bronchodilators as needed 3. CT chest noncontrast demonstrates chronic small left pleural effusion not enough for thoracentesis. 4. Cardiac recommendations possible coronary angiography DIONISIO CONTRERAS MD, [facility] August 22, 2018 11:59
--- NOTE | 2018-08-22 12:21 | CONS ---
Assessment/Plan Assessment/Plan Hospital Course (Demo Recall) 1. End-stage renal disease, Thursday, , Thursday. 2. Hyperkalemia, resolving with HD. 3. Elevated troponin. Patient has history of end-stage renal disease. 4. History of peripheral vascular disease. 5. Pneumonia, 6. Anemia, likely anemia of chronic disease. 7. Peripheral vascular disease status post bypass of the left lower extremity. 8. Right foot ulcer with infection at the site of recent debridement. Cultures grew MRSA and Enterococcus. 9. History of central stenosis with apparent revascularization. 10. Status post placement of left IJ Permcath 06/2017. 11. Obesity Assessment/Plan (Daily) -c.w HD, -renally dose drugs -c/w Epogen -c/w renagel Consultation Date/Type/Reason Admit Date/Time August 09, 2018 at 17:42 Initial Consult Date 08/10/18 Type of Consult 08/11/2018 Requesting Provider: KIRSTIN SPANN MD Date/Time of Note DATE: 08/22/18 TIME: 12:21 24 HR Interval Summary Free Text/Dictation edema lower extr. decreased Constitutional: febrile Exam/Review of Systems Exam Vitals Vital Signs Date Temp Pulse Resp B/P (MAP) Pulse Ox O2 O2 Flow FiO2 Time Delivery Rate 08/22/18 71 12:01 08/22/18 98.2 20 151/71 100 Room Air 11:14 (97) 08/22/18 21 01:07 08/21/18 2.0 20:08 Intake and Output 08/21/18 08/21/18 08/22/18 1515:00 23:00 07:00 IntakeIntake Total 400 ml OutputOutput Total 3400 ml BalanceBalance -3000 ml Constitutional: alert, oriented Psych: anxiety (about cardiac surgery) Respiratory: clear to auscultation Cardiovascular: regular rate and rhythm Gastrointestinal: soft, distended Skin: other (lower extremities discoloration) Results Result Diagram: 08/22/18 0500 08/22/18 0500 Results 24hrs Laboratory Tests Test 08/21/18 17:44 08/21/18 20:38 08/22/18 05:00 08/22/18 06:23 Bedside Glucose 200 139 151 White Blood Count 5.5 # Red Blood Count 2.77 L Hemoglobin 9.5 L Hematocrit 30.8 L Mean Corpuscular 111.2 H Volume Mean Corpuscular 34.3 H Hemoglobin Mean Corpuscular 30.8 L Hemoglobin Concent Red Cell 17.7 H Distribution Width Platelet Count 209 Mean Platelet Volume 10.9 H Immature 0.400 Granulocytes % Neutrophils % 69.7 Lymphocytes % 15.3 Monocytes % 10.9 Eosinophils % 3.3 Basophils % 0.4 Nucleated Red Blood 0.0 Cells % Immature 0.020 Granulocytes # Neutrophils # 3.8 Lymphocytes # 0.8 Monocytes # 0.6 Eosinophils # 0.2 Basophils # 0.0 Nucleated Red Blood 0.0 Cells # Sodium Level 138 Potassium Level 5.4 H Chloride Level 102 Carbon Dioxide Level 25 Anion Gap 11 Blood Urea Nitrogen 57 H Creatinine 6.69 H Est Glomerular 6 L Filtrat Rate mL/min Glucose Level 158 # Calcium Level 9.2 Test 08/22/18 07:38 08/22/18 11:51 Bedside Glucose 150 81 Medications Medication Current Medications Buspirone HCl (Buspar) 10 mg TID PO Last administered on 08/22/18 08:14; Admin Dose 10 MG; Start 08/10/18 at 09:00 Diltiazem HCl (Cardizem Cd) 120 mg DAILY PO Last administered on 08/20/18 10:20; Admin Dose 120 MG; Start 08/10/18 at 09:00 Gabapentin (Neurontin) 300 mg TID PO Last administered on 08/22/18 08:14; Admin Dose 300 MG; Start 08/10/18 at 09:00 Metoprolol Tartrate (Lopressor) 25 mg BID PO Last administered on 08/22/18 08:16; Admin Dose 25 MG; Start 08/10/18 at 09:00 Pantoprazole (Protonix Tab) 40 mg AC BREAKFAST PO Last administered on 08/22/18 06:25; Admin Dose 40 MG; Start 08/10/18 at 07:00 Sevelamer Carbonate (Renvela) 1.6 gm WITH MEALS PO Last administered on 08/22/18 07:45; Admin Dose 1.6 GM; Start 08/10/18 at 08:00 Apixaban (Eliquis) 5 mg BID PO Last administered on 08/22/18 08:16; Admin Dose 5 MG; Start 08/10/18 at 09:00 Acetaminophen (Tylenol Tab) 650 mg Q6H PRN PO MILD PAIN(1-3)OR ELEVATED TEMP Last administered on 08/22/18 09:51; Admin Dose 650 MG; Start 08/09/18 at 23:30 Morphine Sulfate (morphine) 2 mg Q4H PRN IV SEVERE PAIN LEVEL 7-10 Last administered on 08/22/18 10:46; Admin Dose 2 MG; Start 08/09/18 at 23:30 Guaifenesin/ Codeine Phosphate (Robitussin Ac Liquid Cup) 10 ml Q4H PRN PO COUGH Last administered on 08/22/18 08:15; Admin Dose 10 ML; Start 08/09/18 at 23:30 Miscellaneous Information 1 ea NOTE XX ; Start 08/10/18 at 05:30 Glucose (Glutose) 15 gm Q15M PRN PO DECREASED GLUCOSE; Start 08/10/18 at 05:30 Glucose (Glutose) 22.5 gm Q15M PRN PO DECREASED GLUCOSE; Start 08/10/18 at 05:30 Dextrose (D50w Syringe) 25 ml Q15M PRN IV DECREASED GLUCOSE; Start 08/10/18 at 05:30 Dextrose (D50w Syringe) 50 ml Q15M PRN IV DECREASED GLUCOSE Last administered on 08/13/18 21:34; Admin Dose 50 ML; Start 08/10/18 at 05:30 Glucagon (Glucagen) 1 mg Q15M PRN IM DECREASED GLUCOSE; Start 08/10/18 at 05:30 Glucose (Glutose) 15 gm Q15M PRN BUCCAL DECREASED GLUCOSE Last administered on 08/14/18at 19:18; Admin Dose 15 GM; Start 08/10/18 at 05:30 Insulin Aspart (Novolog Insulin Pen) NOVOLOG *MILD* ALGORI... AC MEALS AND BEDTIME SC Last administered on 08/22/18 07:52; Admin Dose 1 UNIT; Start 08/10/18 at 08:00 Diagnostic Test (Pha) (Accu-Chek) 1 ea 02 XX Last administered on 08/20/18at 02:05; Admin Dose 1 EA; Start 08/11/18 at 02:00 Insulin Aspart (Novolog Insulin Pen) 10 unit WITH MEALS SC Last administered on 08/22/18 07:52; Admin Dose 10 UNIT; Start 08/11/18 at 08:00 Docusate Sodium (Colace) 100 mg DAILY PO Last administered on 08/22/18 08:16; Admin Dose 100 MG; Start 08/12/18 at 09:00 Tramadol HCl (Ultram) 50 mg Q12H PRN PO PAIN; Start 08/11/18 at 13:30 Diclofenac Sodium (Voltaren 1% Gel) 2 gm BID TP Last administered on 08/22/18 08:23; Admin Dose 2 GM; Start 08/11/18 at 21:00 Acetaminophen/ Hydrocodone Bitart ([place] (5/325)) 1 tab Q4H PRN PO MODERATE PAIN LEVEL 4-6 Last administered on 08/22/18 08:14; Admin Dose 1 TAB; Start 08/12/18 at 15:00 Isosorbide Dinitrate (Isordil) 10 mg TID PO Last administered on 08/20/18 12:28; Admin Dose 10 MG; Start 08/12/18 at 21:00 Lorazepam (Ativan) 1 mg Q6H PRN IV ANXIETY Last administered on 08/21/18 23:05; Admin Dose 1 MG; Start 08/12/18 at 22:30 Heparin Sodium (Porcine) (Heparin (1000 Units/ml)) 4,000 unit AFTER DIALYSIS CATHETER Last administered on 08/21/18 20:15; Admin Dose 4,000 UNIT; Start 08/13/18 at 16:30 Senna (Senokot) 2 tab BID PRN PO CONSTIPATION Last administered on 08/19/18 21:48; Admin Dose 2 TAB; Start 08/14/18 at 12:00 Albuterol/ Ipratropium (Duoneb) 3 ml Q6H RESP THERAPY PRN HHN SHORTNESS OF BREATH Last administered on 08/20/18 03:20; Admin Dose 3 ML; Start 08/15/18 at 11:00 Ondansetron HCl (Zofran Inj) 4 mg Q6H PRN IV NAUSEA AND/OR VOMITING Last administered on 08/22/18 10:46; Admin Dose 4 MG; Start 08/15/18 at 11:00 Epoetin Bam-epbx (Retacrit (Esrd)) 4,000 unit TuThSa@1700 SC Last administered on 08/21/18 20:27; Admin Dose 4,000 UNIT; Start 08/17/18 at 17:00 Multivit/Ca Carb/ B Cmplx/FA/Prenat (Addie-Mikayla) 1 tab DAILY PO Last administered on 08/22/18 08:15; Admin Dose 1 TAB; Start 08/16/18 at 12:00 Hydrocortisone (Hydrocortisone 0.5% Cr) 1 applic BID PRN TOP ITCHING Last administered on 08/20/18 20:52; Admin Dose 1 APPLIC; Start 08/16/18 at 22:30 Zolpidem Tartrate (Ambien) 5 mg HS PRN PO INSOMNIA Last administered on 08/22/18 01:05; Admin Dose 5 MG; Start 08/17/18 at 21:30 Clotrimazole (Clotrim 1% Vaginal Cr) 1 applic BID VAG Last administered on 08/22/18 11:53; Admin Dose 1 APPLIC; Start 08/19/18 at 21:00; Stop 08/26/18 at 20:59 Bumetanide (Bumex) 2 mg BID DIURETICS PO Last administered on 08/22/18 05:53; Admin Dose 2 MG; Start 08/19/18 at 18:00 Insulin Glargine (Lantus) 22 units DAILY@0800 SC Last administered on 08/22/18 08:21; Admin Dose 22 UNITS; Start 08/20/18 at 08:00 Hydralazine HCl (Apresoline) 50 mg Q8 PO Last administered on 08/22/18 05:53; Admin Dose 50 MG; Start 08/20/18 at 14:00 Albuterol (Proventil 0.083% (Neb)) 1.25 mg Q2H RESP THERAPY PRN HHN shortness of breath; Start 08/21/18 at 11:00 Clonidine (Catapres) 0.1 mg Q6H PRN PO ELEVATED SYSTOLIC BP; Start 08/21/18 at 23:00 Menthol/Methyl Salicylate (Sahil Carrillo) 1 applic TID TOP ; Start 08/22/18 at 13:00 KUNAL RAMOS August 22, 2018 12:21
[2018-08-22] MEDS: MENTHOL/METH SALICYLATE 30 GM OINT TOP SCH ×2 (12:44→20:17)
[2018-08-22] MEDS: LORAZEPAM 2 MG INJ IV PRN (15:29)
[2018-08-22] MEDS ORDERED: SODIUM POLYSTYRENE 15 GM KIT (POWDER + SORBITOL) PO ONE (17:00)
[2018-08-22] MEDS: SENNA TAB PO PRN (23:28)
[2018-08-23] VITALS (25 sets, daily range): BP systolic 92–170; BP diastolic 46–78; PULSE 59–77; RESP 18–20
[2018-08-23] MEDS: LORAZEPAM 2 MG INJ IV PRN ×2 (01:25→13:31)
[2018-08-23] MEDS: ACCU-CHEK XX SCH (01:44)
[2018-08-23] MEDS: PANTOPRAZOLE (EC) 40 MG TAB PO SCH (06:20)
[2018-08-23] MEDS: BUMETANIDE 1 MG TAB PO SCH ×2 (06:20→17:39)
[2018-08-23] MEDS: GUAIFENESIN/CODEINE 5ML CUP PO PRN ×2 (06:54→23:42)
[2018-08-23] MEDS: morphine 2 MG INJ IV PRN ×2 (06:54→20:55)
[2018-08-23] MEDS: INSULIN ASPART [NOVOLOG] 3 ML PEN SC SCH ×6 (07:00→22:57)
[2018-08-23] MEDS: SEVELAMER CARBONATE 0.8 GM PKT PO SCH ×3 (07:43→17:39)
[2018-08-23] MEDS: INSULIN GLARGINE [LANTus] (100 UNITS/ML) SYG SC SCH (07:50)
[2018-08-23] MEDS: BUSPIRONE 10 MG TAB PO SCH ×3 (08:54→20:54)
[2018-08-23] MEDS: GABAPENTIN 300 MG CAP PO SCH ×3 (08:54→20:54)
[2018-08-23] MEDS: DOCUSATE SODIUM 100 MG CAP PO SCH (08:54)
[2018-08-23] MEDS: MULTIVIT/CA CARB/B CMPLX/FA TAB PO SCH (08:54)
[2018-08-23] MEDS: DILTIAZEM (CD) 120 MG CAP PO SCH (08:54)
[2018-08-23] MEDS: APIXABAN 5 MG TABLET PO SCH (08:54)
[2018-08-23] MEDS: ISOSORBIDE DINITRATE 10 MG TAB PO SCH ×3 (08:55→21:00)
[2018-08-23] MEDS: METOPROLOL 25 MG TAB PO SCH ×2 (08:55→21:00)
[2018-08-23] MEDS: MENTHOL/METH SALICYLATE 30 GM OINT TOP SCH ×3 (08:57→21:55)
[2018-08-23] MEDS: DICLOFENAC SODIUM 1% GEL 100 GM TUBE TP SCH ×2 (08:57→21:55)
[2018-08-23] MEDS: CLOTRIMAZOLE 1% 45 GM VAG CR VAG SCH ×3 (08:59→21:55)
[2018-08-23] MEDS: HYDROCODONE/APAP (5/325) TAB PO PRN ×3 (11:00→23:43)
--- NOTE | 2018-08-23 11:22 | CONS ---
Assessment/Plan Assessment/Plan Hospital Course (Demo Recall) IMPRESSION: 1. Positive troponin, assess significance in the setting of renal failure, likely type 2 demand infarct in the setting of pneumonia. 2. Atrial fibrillation, rate controlled.-in SR currently 3. Abnormal electrocardiogram, assess for true acute coronary syndrome. 4. Hypertension, well controlled. 5. End-stage renal disease, on hemodialysis. 6. Nausea. 7. Left lower lobe pneumonia. 8. Peripheral arterial disease with nonhealing lower extremity ulcer. 9. CHF-diastolic and systolic acute on chronic 10. abnl MPI-Lexiscan with positive ischemia anteroseptal/inferior/inferolateral Recc: -Tele -Continue dilt/BB as patient will comply -Increase hydralazine to improve BP -Continue nitrates as patient will comply -continue abx's -HD for volume removal -RX anxiety -Continue now Bumex at 2 mg po bid with HD -Continue abx's and f/u cx data -Spoke with patient about LHC with possible need for stents given abnl stress test and positive troponin. Patient wants to discuss with family first. Will make NPO after MN in case patient decides to proceed. Consultation Date/Type/Reason Admit Date/Time August 09, 2018 at 17:42 Initial Consult Date 08/10/18 Type of Consult Cardiology Reason for Consultation CHF/Positive troponin Requesting Provider: KIRSTIN SPANN MD Date/Time of Note DATE: 08/23/18 TIME: 11:13 Exam/Review of Systems Vital Signs Vitals Vital Signs Date Temp Pulse Resp B/P (MAP) Pulse Ox O2 O2 Flow FiO2 Time Delivery Rate 08/23/18 67 08:01 08/23/18 98.0 20 117/78 95 Room Air 07:34 (91) 08/22/18 21 01:07 08/21/18 2.0 20:08 Intake and Output 08/22/18 08/22/18 08/23/18 1515:00 23:00 07:00 IntakeIntake Total 800 ml 200 ml BalanceBalance 800 ml 200 ml Exam Exam Review of Systems: CONSTITUTIONAL: No fevers, chills. PULMONARY: No sob CARDIOVASCULAR: No chest pain/palpitations GASTROINTESTINAL: No nausea/vomiting. GENITOURINARY: No hematuria/dysuria. MUSCULOSKELETAL: No myagias/arthalgias. PSYCHIATRIC: The patient denies depression. NEUROLOGIC: No weakness Constitutional: alert Psych: no complaints Head: normocephalic ENMT: mucosa pink and moist Neck: supple, jvd (9 cm water) Respiratory: diminished breath sounds (at bases/B) Cardiovascular: regular rate and rhythm Gastrointestinal: soft, non-tender Musculoskeletal: muscle tone (normal) Extremities: pitting pedal edema (bilateral LE) Neurological: other (No focal deficits) Labs Result Diagram: 08/22/18 0500 08/23/18 0456 Results 24hrs Laboratory Tests Test 08/22/18 11:51 08/22/18 17:18 08/22/18 20:23 08/23/18 01:29 Bedside Glucose 81 244 H 110 100 Test 08/23/18 04:56 08/23/18 07:33 Sodium Level 141 Potassium Level 6.1 *H Chloride Level 101 Carbon Dioxide Level 24 Anion Gap 16 H Blood Urea Nitrogen 74 H Creatinine 7.72 H Est Glomerular 5 L Filtrat Rate mL/min Glucose Level 103 # Calcium Level 8.6 Total Bilirubin 0.1 L Direct Bilirubin 0.00 Indirect Bilirubin 0.1 Aspartate Amino 23 Transf (AST/SGOT) Alanine 24 Aminotransferase (AL T/SGPT) Alkaline Phosphatase 120 Total Protein 6.8 Albumin 3.6 Globulin 3.20 Albumin/Globulin 1.12 Ratio Bedside Glucose 128 Medications Medications Current Medications Buspirone HCl (Buspar) 10 mg TID PO Last administered on 08/23/18 08:54; Admin Dose 10 MG; Start 08/10/18 at 09:00 Diltiazem HCl (Cardizem Cd) 120 mg DAILY PO Last administered on 08/20/18at 10:20; Admin Dose 120 MG; Start 08/10/18 at 09:00 Gabapentin (Neurontin) 300 mg TID PO Last administered on 08/23/18 08:54; Admin Dose 300 MG; Start 08/10/18 at 09:00 Metoprolol Tartrate (Lopressor) 25 mg BID PO Last administered on 08/22/18 20:16; Admin Dose 25 MG; Start 08/10/18 at 09:00 Pantoprazole (Protonix Tab) 40 mg AC BREAKFAST PO Last administered on 08/23 06:20; Admin Dose 40 MG; Start 08/10/18 at 07:00 Sevelamer Carbonate (Renvela) 1.6 gm WITH MEALS PO Last administered on 08/23/18 07:43; Admin Dose 1.6 GM; Start 08/10/18 at 08:00 Apixaban (Eliquis) 5 mg BID PO Last administered on 08/23/18 08:54; Admin Dose 5 MG; Start 08/10/18 at 09:00 Acetaminophen (Tylenol Tab) 650 mg Q6H PRN PO MILD PAIN(1-3)OR ELEVATED TEMP Last administered on 08/22/18 09:51; Admin Dose 650 MG; Start 08/09/18 at 23:30 Morphine Sulfate (morphine) 2 mg Q4H PRN IV SEVERE PAIN LEVEL 7-10 Last administered on 08/23/18 06:54; Admin Dose 2 MG; Start 08/09/18 at 23:30 Guaifenesin/ Codeine Phosphate (Robitussin Ac Liquid Cup) 10 ml Q4H PRN PO COUGH Last administered on 08/23/18 06:54; Admin Dose 10 ML; Start 08/09/18 at 23:30 Miscellaneous Information 1 ea NOTE XX ; Start 08/10/18 at 05:30 Glucose (Glutose) 15 gm Q15M PRN PO DECREASED GLUCOSE; Start 08/10/18 at 05:30 Glucose (Glutose) 22.5 gm Q15M PRN PO DECREASED GLUCOSE; Start 08/10/18 at 05:30 Dextrose (D50w Syringe) 25 ml Q15M PRN IV DECREASED GLUCOSE; Start 08/10/18 at 05:30 Dextrose (D50w Syringe) 50 ml Q15M PRN IV DECREASED GLUCOSE Last administered on 08/13/18 21:34; Admin Dose 50 ML; Start 08/10/18 at 05:30 Glucagon (Glucagen) 1 mg Q15M PRN IM DECREASED GLUCOSE; Start 08/10/18 at 05:30 Glucose (Glutose) 15 gm Q15M PRN BUCCAL DECREASED GLUCOSE Last administered on 08/14/18 19:18; Admin Dose 15 GM; Start 08/10/18 at 05:30 Insulin Aspart (Novolog Insulin Pen) NOVOLOG *MILD* ALGORI... AC MEALS AND BEDTIME SC Last administered on 08/22/18 17:28; Admin Dose 3 UNIT; Start 08/10/18 at 08:00 Diagnostic Test (Pha) (Accu-Chek) 1 ea 02 XX Last administered on 08/23/18 01:44; Admin Dose 1 EA; Start 08/11/18 at 02:00 Insulin Aspart (Novolog Insulin Pen) 10 unit WITH MEALS SC Last administered on 08/23/18 07:49; Admin Dose 10 UNIT; Start 08/11/18 at 08:00 Docusate Sodium (Colace) 100 mg DAILY PO Last administered on 08/23/18 08:54; Admin Dose 100 MG; Start 08/12/18 at 09:00 Tramadol HCl (Ultram) 50 mg Q12H PRN PO PAIN; Start 08/11/18 at 13:30 Diclofenac Sodium (Voltaren 1% Gel) 2 gm BID TP Last administered on 08/23/18 08:57; Admin Dose 2 GM; Start 08/11/18 at 21:00 Acetaminophen/ Hydrocodone Bitart ([place] (5/325)) 1 tab Q4H PRN PO MODERATE PAIN LEVEL 4-6 Last administered on 08/23/18 11:00; Admin Dose 1 TAB; Start 08/12/18 at 15:00 Isosorbide Dinitrate (Isordil) 10 mg TID PO Last administered on 08/22/18 20:16; Admin Dose 10 MG; Start 08/12/18 at 21:00 Lorazepam (Ativan) 1 mg Q6H PRN IV ANXIETY Last administered on 08/23/18 01:25; Admin Dose 1 MG; Start 08/12/18 at 22:30 Heparin Sodium (Porcine) (Heparin (1000 Units/ml)) 4,000 unit AFTER DIALYSIS CATHETER Last administered on 08/21/18 20:15; Admin Dose 4,000 UNIT; Start 08/13/18 at 16:30 Senna (Senokot) 2 tab BID PRN PO CONSTIPATION Last administered on 08/22/18 23:28; Admin Dose 2 TAB; Start 08/14/18 at 12:00 Albuterol/ Ipratropium (Duoneb) 3 ml Q6H RESP THERAPY PRN HHN SHORTNESS OF BREATH Last administered on 08/20/18 03:20; Admin Dose 3 ML; Start 08/15/18 at 11:00 Ondansetron HCl (Zofran Inj) 4 mg Q6H PRN IV NAUSEA AND/OR VOMITING Last administered on 08/22/18 10:46; Admin Dose 4 MG; Start 08/15/18 at 11:00 Epoetin Bam-epbx (Retacrit (Esrd)) 4,000 unit TuThSa@1700 SC Last administered on 08/21/18 20:27; Admin Dose 4,000 UNIT; Start 08/17/18 at 17:00 Multivit/Ca Carb/ B Cmplx/FA/Prenat (Addie-Mikayla) 1 tab DAILY PO Last administered on 08/23/18 08:54; Admin Dose 1 TAB; Start 08/16/18 at 12:00 Hydrocortisone (Hydrocortisone 0.5% Cr) 1 applic BID PRN TOP ITCHING Last administered on 08/20/18 20:52; Admin Dose 1 APPLIC; Start 08/16/18 at 22:30 Zolpidem Tartrate (Ambien) 5 mg HS PRN PO INSOMNIA Last administered on 08/22/18 21:13; Admin Dose 5 MG; Start 08/17/18 at 21:30 Clotrimazole (Clotrim 1% Vaginal Cr) 1 applic BID VAG Last administered on 08/22/18 11:53; Admin Dose 1 APPLIC; Start 08/19/18 at 21:00; Stop 08/26/18 at 20:59 Bumetanide (Bumex) 2 mg BID DIURETICS PO Last administered on 08/23/18 06:20; Admin Dose 2 MG; Start 08/19/18 at 18:00 Insulin Glargine (Lantus) 22 units DAILY@0800 SC Last administered on 08/23/18 07:50; Admin Dose 22 UNITS; Start 08/20/18 at 08:00 Hydralazine HCl (Apresoline) 50 mg Q8 PO Last administered on 08/23/18 06:21; Admin Dose 50 MG; Start 08/20/18 at 14:00 Albuterol (Proventil 0.083% (Neb)) 1.25 mg Q2H RESP THERAPY PRN HHN shortness of breath; Start 08/21/18 at 11:00 Clonidine (Catapres) 0.1 mg Q6H PRN PO ELEVATED SYSTOLIC BP Last administered on 5/19/19at 23:41; Admin Dose 0.1 MG; Start 08/21/18 at 23:00 Menthol/Methyl Salicylate (Sahil Carrillo) 1 applic TID TOP Last administered on 08/23/18at 08:57; Admin Dose 1 APPLIC; Start 08/22/18 at 13:00 GERTRUDIS GUILLERMO August 23, 2018 11:22
--- NOTE | 2018-08-23 11:37 | CONS ---
Assessment/Plan Assessment/Plan Assessment/Plan (Daily) 58 y/o with 8-year-old female who presented with: 1. Shortness of breath, cough, with fevers, likely secondary to pneumonia; however, might have some underlying fluid overload. 2. Hyperkalemia. Not sure about patient's compliance; however, the patient had been going to his dialysis center. 3. Elevated troponin. Patient has history of end-stage renal disease.? ACS now positive stress test 4. History of peripheral vascular disease. 5. End-stage renal disease 6. Anemia, likely anemia of chronic disease. 7. Peripheral vascular disease status post bypass of the left lower extremity. 8. Right foot ulcer with infection at the site of recent debridement. Cultures grew MSSA and Enterococcus. 9. History of central stenosis with apparent revascularization. 10. Status post placement of left IJ Permcath 06/2017. Plan - HD MWF, hd today for hyperkalemia - if pt needs angiogram will need HD aftter -lasix to bumex due to ototoxicity - cw renavite - pain meds per primary - renally dose all meds - earring maker bp/blood draws in left upper ext Consultation Date/Type/Reason Admit Date/Time August 09, 2018 at 17:42 Initial Consult Date 08/10/18 Requesting Provider: KIRSTIN SPANN MD Date/Time of Note DATE: 08/23/18 TIME: 11:33 24 HR Interval Summary Free Text/Dictation Positive stress test Bilateral lower extremity edema Exam/Review of Systems Exam Vitals Vital Signs Date Temp Pulse Resp B/P (MAP) Pulse Ox O2 O2 Flow FiO2 Time Delivery Rate 08/23/18 67 08:01 08/23/18 98.0 20 117/78 95 Room Air 07:34 (91) 08/22/18 21 01:07 08/21/18 2.0 20:08 Intake and Output 08/22/18 08/22/18 08/23/18 1515:00 23:00 07:00 IntakeIntake Total 800 ml 200 ml BalanceBalance 800 ml 200 ml Exam Constitutional: alert, oriented Psych: anxiety (about cardiac surgery) Respiratory: coarse breath sounds Cardiovascular: regular rate and rhythm Gastrointestinal: soft, distended Skin: other (lower extremities discoloration), ble edema s/p amputaion Results Result Diagram: 08/22/18 0500 08/23/18 0456 Results 24hrs Laboratory Tests Test 08/22/18 11:51 08/22/18 17:18 08/22/18 20:23 08/23/18 01:29 Bedside Glucose 81 244 H 110 100 Test 08/23/18 04:56 08/23/18 07:33 Sodium Level 141 Potassium Level 6.1 *H Chloride Level 101 Carbon Dioxide Level 24 Anion Gap 16 H Blood Urea Nitrogen 74 H Creatinine 7.72 H Est Glomerular 5 L Filtrat Rate mL/min Glucose Level 103 # Calcium Level 8.6 Total Bilirubin 0.1 L Direct Bilirubin 0.00 Indirect Bilirubin 0.1 Aspartate Amino 23 Transf (AST/SGOT) Alanine 24 Aminotransferase (AL T/SGPT) Alkaline Phosphatase 120 Total Protein 6.8 Albumin 3.6 Globulin 3.20 Albumin/Globulin 1.12 Ratio Bedside Glucose 128 Medications Medication Current Medications Buspirone HCl (Buspar) 10 mg TID PO Last administered on 08/23/18 08:54; Admin Dose 10 MG; Start 08/10/18 at 09:00 Diltiazem HCl (Cardizem Cd) 120 mg DAILY PO Last administered on 08/20/18 10:20; Admin Dose 120 MG; Start 08/10/18 at 09:00 Gabapentin (Neurontin) 300 mg TID PO Last administered on 08/23/18 08:54; Admin Dose 300 MG; Start 08/10/18 at 09:00 Metoprolol Tartrate (Lopressor) 25 mg BID PO Last administered on 08/22/18 20:16; Admin Dose 25 MG; Start 08/10/18 at 09:00 Pantoprazole (Protonix Tab) 40 mg AC BREAKFAST PO Last administered on 08/23/18 06:20; Admin Dose 40 MG; Start 08/10/18 at 07:00 Sevelamer Carbonate (Renvela) 1.6 gm WITH MEALS PO Last administered on 08/23/18 07:43; Admin Dose 1.6 GM; Start 08/10/18 at 08:00 Apixaban (Eliquis) 5 mg BID PO Last administered on 08/23/18 08:54; Admin Dose 5 MG; Start 08/10/18 at 09:00; Status Hold Acetaminophen (Tylenol Tab) 650 mg Q6H PRN PO MILD PAIN(1-3)OR ELEVATED TEMP Last administered on 08/22/18 09:51; Admin Dose 650 MG; Start 08/09/18 at 23:30 Morphine Sulfate (morphine) 2 mg Q4H PRN IV SEVERE PAIN LEVEL 7-10 Last administered on 08/23/18 06:54; Admin Dose 2 MG; Start 08/09/18 at 23:30 Guaifenesin/ Codeine Phosphate (Robitussin Ac Liquid Cup) 10 ml Q4H PRN PO COUG H Last administered on 08/23/18 06:54; Admin Dose 10 ML; Start 08/09/18 at 23:30 Miscellaneous Information 1 ea NOTE XX ; Start 08/10/18 at 05:30 Glucose (Glutose) 15 gm Q15M PRN PO DECREASED GLUCOSE; Start 08/10/18 at 05:30 Glucose (Glutose) 22.5 gm Q15M PRN PO DECREASED GLUCOSE; Start 08/10/18 at 05:30 Dextrose (D50w Syringe) 25 ml Q15M PRN IV DECREASED GLUCOSE; Start 08/10/18 at 05:30 Dextrose (D50w Syringe) 50 ml Q15M PRN IV DECREASED GLUCOSE Last administered on 08/13/18at 21:34; Admin Dose 50 ML; Start 08/10/18 at 05:30 Glucagon (Glucagen) 1 mg Q15M PRN IM DECREASED GLUCOSE; Start 08/10/18 at 05:30 Glucose (Glutose) 15 gm Q15M PRN BUCCAL DECREASED GLUCOSE Last administered on 08/14/18 19:18; Admin Dose 15 GM; Start 08/10/18 at 05:30 Insulin Aspart (Novolog Insulin Pen) NOVOLOG *MILD* ALGORI... AC MEALS AND BEDTIME SC Last administered on 08/22/18 17:28; Admin Dose 3 UNIT; Start 08/10/18 at 08:00 Diagnostic Test (Pha) (Accu-Chek) 1 ea 02 XX Last administered on 08/23/18at 01:44; Admin Dose 1 EA; Start 08/11/18 at 02:00 Insulin Aspart (Novolog Insulin Pen) 10 unit WITH MEALS SC Last administered on 08/23/18 07:49; Admin Dose 10 UNIT; Start 08/11/18 at 08:00 Docusate Sodium (Colace) 100 mg DAILY PO Last administered on 08/23/18 08:54; Admin Dose 100 MG; Start 08/12/18 at 09:00 Tramadol HCl (Ultram) 50 mg Q12H PRN PO PAIN; Start 08/11/18 at 13:30 Diclofenac Sodium (Voltaren 1% Gel) 2 gm BID TP Last administered on 08/23/18 08:57; Admin Dose 2 GM; Start 08/11/18 at 21:00 Acetaminophen/ Hydrocodone Bitart ([place] (5/325)) 1 tab Q4H PRN PO MODERATE PAIN LEVEL 4-6 Last administered on 08/23/18 11:00; Admin Dose 1 TAB; Start 08/12/18 at 15:00 Isosorbide Dinitrate (Isordil) 10 mg TID PO Last administered on 08/22/18 20:16; Admin Dose 10 MG; Start 08/12/18 at 21:00 Lorazepam (Ativan) 1 mg Q6H PRN IV ANXIETY Last administered on 08/23/18 01:25; Admin Dose 1 MG; Start 08/12/18 at 22:30 Heparin Sodium (Porcine) (Heparin (1000 Units/ml)) 4,000 unit AFTER DIALYSIS CATHETER Last administered on 08/21/18 20:15; Admin Dose 4,000 UNIT; Start 08/13/18 at 16:30 Senna (Senokot) 2 tab BID PRN PO CONSTIPATION Last administered on 08/22/18 23:28; Admin Dose 2 TAB; Start 08/14/18 at 12:00 Albuterol/ Ipratropium (Duoneb) 3 ml Q6H RESP THERAPY PRN HHN SHORTNESS OF BREATH Last administered on 08/20/18 03:20; Admin Dose 3 ML; Start 08/15/18 at 11:00 Ondansetron HCl (Zofran Inj) 4 mg Q6H PRN IV NAUSEA AND/OR VOMITING Last administered on 08/22/18 10:46; Admin Dose 4 MG; Start 08/15/18 at 11:00 Epoetin Bam-epbx (Retacrit (Esrd)) 4,000 unit TuThSa@1700 SC Last administered on 08/21/18 20:27; Admin Dose 4,000 UNIT; Start 08/17/18 at 17:00 Multivit/Ca Carb/ B Cmplx/FA/Prenat (Addie-Mikayla) 1 tab DAILY PO Last administered on 08/23/18 08:54; Admin Dose 1 TAB; Start 08/16/18 at 12:00 Hydrocortisone (Hydrocortisone 0.5% Cr) 1 applic BID PRN TOP ITCHING Last admin istered on 08/20/18 20:52; Admin Dose 1 APPLIC; Start 08/16/18 at 22:30 Zolpidem Tartrate (Ambien) 5 mg HS PRN PO INSOMNIA Last administered on 08/22/18 21:13; Admin Dose 5 MG; Start 08/17/18 at 21:30 Clotrimazole (Clotrim 1% Vaginal Cr) 1 applic BID VAG Last administered on 08/22/18 11:53; Admin Dose 1 APPLIC; Start 08/19/18 at 21:00; Stop 08/26/18 at 20:59 Bumetanide (Bumex) 2 mg BID DIURETICS PO Last administered on 08/23/18 06:20; Admin Dose 2 MG; Start 08/19/18 at 18:00 Insulin Glargine (Lantus) 22 units DAILY@0800 SC Last administered on 08/23/18 07:50; Admin Dose 22 UNITS; Start 08/20/18 at 08:00 Hydralazine HCl (Apresoline) 50 mg Q8 PO Last administered on 08/23/18 06:21; Admin Dose 50 MG; Start 08/20/18 at 14:00 Albuterol (Proventil 0.083% (Neb)) 1.25 mg Q2H RESP THERAPY PRN HHN shortness of breath; Start 08/21/18 at 11:00 Clonidine (Catapres) 0.1 mg Q6H PRN PO ELEVATED SYSTOLIC BP Last administered on 08/22/18 23:41; Admin Dose 0.1 MG; Start 08/21/18 at 23:00 Menthol/Methyl Salicylate (Sahil Carrillo) 1 applic TID TOP Last administered on 08/23/18 08:57; Admin Dose 1 APPLIC; Start 08/22/18 at 13:00 Enoxaparin Sodium (Lovenox) 80 mg BID SC ; Start 08/24/18 at 21:00; Status DARELL MULLER MD August 23, 2018 11:37
--- NOTE | 2018-08-23 12:23 | CONS ---
Assessment/Plan Assessment/Plan Hospital Course (Demo Recall) -Hyperkalemia- per PMD - S/p sepsis d/t HCAP - fever and tachycardia resolved - HCAP - slowly improving - Likely underlying fluid overload - Per CXR 08/21/18 Questionable 1.4 cm right lower lobe nodular opacity. Follow- up CT chest is recommended. - ESRD on HD T-T-S - Hyperkalemia - Elevated troponin - H/o non-healing diabetic R foot ulceration with infection at site of recent debridement; cultures grew MSSA and Enterococcus (ESR 93) - S/p excisional sharp debridement of the right first toe involving skin and subcutaneous tissue on 06/11/2017 - Evidence of osteomyelitis at the remnant of the first distal phalanx per MRI R foot 06/24/2017 - DM with hypoglycemic episode - Hgb A1c 6.5% - Diabetic neuropathy - H/o diabetic foot infections/OM of b/l feet, s/p amputation of R two toes - H/o central stenosis with apparent recent re-vascularization - S/p placement of L IJ HD catheter 06/20/2017 - PVD - H/o LLE bypass - CHF and CAD - Anemia of chronic kidney disease - Morbid obesity - BMI 39.9 - H/o dysphagia, Group A pharyngitis screen was negative - H/o mildly dilated esophagus on CT (11/2016) and multiple distal erosive lesions in the distal esophagus per EGD (11/27/2016; path negative) - 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 Pt's sinuses are non-TTP. On a trial of renally dosed oseltamivir (06/30/2017-) Resulted: respiratory virus panel (negative), pertussis screen neg Recommendations: - Monitor closely off antibiotics; S/p Cefepime (08/09/2018-08/18/18) Consultation Date/Type/Reason Admit Date/Time August 09, 2018 at 17:42 Initial Consult Date Type of Consult id Requesting Provider: KIRSTIN SPANN MD Date/Time of Note DATE: 08/23/18 TIME: 12:22 Exam/Review of Systems Exam Vitals Vital Signs Date Temp Pulse Resp B/P (MAP) Pulse Ox O2 O2 Flow FiO2 Time Delivery Rate 08/23/18 97.9 61 20 149/65 95 Room Air 11:38 (93) 08/22/18 21 01:07 08/21/18 2.0 20:08 Intake and Output 08/22/18 08/22/18 08/23/18 1515:00 23:00 07:00 IntakeIntake Total 800 ml 200 ml BalanceBalance 800 ml 200 ml Exam currently using restroom Results Result Diagram: 08/22/18 0500 08/23/18 0456 Results 24hrs Laboratory Tests Test 08/22/18 17:18 08/22/18 20:23 08/23/18 01:29 08/23/18 04:56 Bedside Glucose 244 H 110 100 Sodium Level 141 Potassium Level 6.1 *H Chloride Level 101 Carbon Dioxide Level 24 Anion Gap 16 H Blood Urea Nitrogen 74 H Creatinine 7.72 H Est Glomerular 5 L Filtrat Rate mL/min Glucose Level 103 # Calcium Level 8.6 Total Bilirubin 0.1 L Direct Bilirubin 0.00 Indirect Bilirubin 0.1 Aspartate Amino 23 Transf (AST/SGOT) Alanine 24 Aminotransferase (AL T/SGPT) Alkaline Phosphatase 120 Total Protein 6.8 Albumin 3.6 Globulin 3.20 Albumin/Globulin 1.12 Ratio Test 08/23/18 07:33 08/23/18 11:53 Bedside Glucose 128 77 Medications Medication Current Medications Buspirone HCl (Buspar) 10 mg TID PO Last administered on 08/23/18 08:54; Admin Dose 10 MG; Start 08/10/18 at 09:00 Diltiazem HCl (Cardizem Cd) 120 mg DAILY PO Last administered on 08/20/18 10:20; Admin Dose 120 MG; Start 08/10/18 at 09:00 Gabapentin (Neurontin) 300 mg TID PO Last administered on 08/23/18 08:54; Admin Dose 300 MG; Start 08/10/18 at 09:00 Metoprolol Tartrate (Lopressor) 25 mg BID PO Last administered on 08/22/18 20:16; Admin Dose 25 MG; Start 08/10/18 at 09:00 Pantoprazole (Protonix Tab) 40 mg AC BREAKFAST PO Last administered on 08/23/18 06:20; Admin Dose 40 MG; Start 08/10/18 at 07:00 Sevelamer Carbonate (Renvela) 1.6 gm WITH MEALS PO Last administered on 08/23/18 11:57; Admin Dose 1.6 GM; Start 08/10/18 at 08:00 Apixaban (Eliquis) 5 mg BID PO Last administered on 08/23/18 08:54; Admin Dose 5 MG; Start 08/10/18 at 09:00; Status Hold Acetaminophen (Tylenol Tab) 650 mg Q6H PRN PO MILD PAIN(1-3)OR ELEVATED TEMP Last administered on 08/22/18 09:51; Admin Dose 650 MG; Start 08/09/18 at 23:30 Morphine Sulfate (morphine) 2 mg Q4H PRN IV SEVERE PAIN LEVEL 7-10 Last administered on 08/23/18 06:54; Admin Dose 2 MG; Start 08/09/18 at 23:30 Guaifenesin/ Codeine Phosphate (Robitussin Ac Liquid Cup) 10 ml Q4H PRN PO COUGH Last administered on 08/23/18 06:54; Admin Dose 10 ML; Start 08/09/18 at 23:30 Miscellaneous Information 1 ea NOTE XX ; Start 08/10/18 at 05:30 Glucose (Glutose) 15 gm Q15M PRN PO DECREASED GLUCOSE; Start 08/10/18 at 05:30 Glucose (Glutose) 22.5 gm Q15M PRN PO DECREASED GLUCOSE; Start 08/10/18 at 05:30 Dextrose (D50w Syringe) 25 ml Q15M PRN IV DECREASED GLUCOSE; Start 08/10/18 at 05:30 Dextrose (D50w Syringe) 50 ml Q15M PRN IV DECREASED GLUCOSE Last administered on 08/13/18 21:34; Admin Dose 50 ML; Start 08/10/18 at 05:30 Glucagon (Glucagen) 1 mg Q15M PRN IM DECREASED GLUCOSE; Start 08/10/18 at 05:30 Glucose (Glutose) 15 gm Q15M PRN BUCCAL DECREASED GLUCOSE Last administered on 08/14/18 19:18; Admin Dose 15 GM; Start 08/10/18 at 05:30 Insulin Aspart (Novolog Insulin Pen) NOVOLOG *MILD* ALGORI... AC MEALS AND BEDTIME SC Last administered on 08/22/18 17:28; Admin Dose 3 UNIT; Start 08/10/18 at 08:00 Diagnostic Test (Pha) (Accu-Chek) 1 ea 02 XX Last administered on 08/23/18 01:44; Admin Dose 1 EA; Start 08/11/18 at 02:00 Insulin Aspart (Novolog Insulin Pen) 10 unit WITH MEALS SC Last administered on 08/23/18 07:49; Admin Dose 10 UNIT; Start 08/11/18 at 08:00 Docusate Sodium (Colace) 100 mg DAILY PO Last administered on 08/23/18 08:54; Admin Dose 100 MG; Start 08/12/18 at 09:00 Tramadol HCl (Ultram) 50 mg Q12H PRN PO PAIN; Start 08/11/18 at 13:30 Diclofenac Sodium (Voltaren 1% Gel) 2 gm BID TP Last administered on 08/23/18 08:57; Admin Dose 2 GM; Start 08/11/18 at 21:00 Acetaminophen/ Hydrocodone Bitart ([place] (5/325)) 1 tab Q4H PRN PO MODERATE PAIN LEVEL 4-6 Last administered on 08/23/18 11:00; Admin Dose 1 TAB; Start 08/12/18 at 15:00 Isosorbide Dinitrate (Isordil) 10 mg TID PO Last administered on 08/22/18 20:16; Admin Dose 10 MG; Start 08/12/18 at 21:00 Lorazepam (Ativan) 1 mg Q6H PRN IV ANXIETY Last administered on 08/23/18 01:25; Admin Dose 1 MG; Start 08/12/18 at 22:30 Heparin Sodium (Porcine) (Heparin (1000 Units/ml)) 4,000 unit AFTER DIALYSIS CATHETER Last administered on 08/21/18 20:15; Admin Dose 4,000 UNIT; Start 08/13/18 at 16:30 Senna (Senokot) 2 tab BID PRN PO CONSTIPATION Last administered on 08/22/18 23:28; Admin Dose 2 TAB; Start 08/14/18 at 12:00 Albuterol/ Ipratropium (Duoneb) 3 ml Q6H RESP THERAPY PRN HHN SHORTNESS OF BREATH Last administered on 08/20/18 03:20; Admin Dose 3 ML; Start 08/15/18 at 11:00 Ondansetron HCl (Zofran Inj) 4 mg Q6H PRN IV NAUSEA AND/OR VOMITING Last admi nistered on 08/22/18 10:46; Admin Dose 4 MG; Start 08/15/18 at 11:00 Epoetin Bam-epbx (Retacrit (Esrd)) 4,000 unit TuThSa@1700 SC Last administered on 08/21/18 20:27; Admin Dose 4,000 UNIT; Start 08/17/18 at 17:00 Multivit/Ca Carb/ B Cmplx/FA/Prenat (Addie-Mikayla) 1 tab DAILY PO Last administered on 08/23/18 08:54; Admin Dose 1 TAB; Start 08/16/18 at 12:00 Hydrocortisone (Hydrocortisone 0.5% Cr) 1 applic BID PRN TOP ITCHING Last administered on 08/20/18 20:52; Admin Dose 1 APPLIC; Start 08/16/18 at 22:30 Zolpidem Tartrate (Ambien) 5 mg HS PRN PO INSOMNIA Last administered on 08/22/18 21:13; Admin Dose 5 MG; Start 08/17/18 at 21:30 Clotrimazole (Clotrim 1% Vaginal Cr) 1 applic BID VAG Last administered on 08/23/18 11:55; Admin Dose 1 APPLIC; Start 08/19/18 at 21:00; Stop 08/26/18 at 20:59 Bumetanide (Bumex) 2 mg BID DIURETICS PO Last administered on 08/23/18 06:20; Admin Dose 2 MG; Start 08/19/18 at 18:00 Insulin Glargine (Lantus) 22 units DAILY@0800 SC Last administered on 08/23/18 07:50; Admin Dose 22 UNITS; Start 08/20/18 at 08:00 Hydralazine HCl (Apresoline) 50 mg Q8 PO Last administered on 08/23/18 06:21; Admin Dose 50 MG; Start 08/20/18 at 14:00 Albuterol (Proventil 0.083% (Neb)) 1.25 mg Q2H RESP THERAPY PRN HHN shortness of breath; Start 08/21/18 at 11:00 Clonidine (Catapres) 0.1 mg Q6H PRN PO ELEVATED SYSTOLIC BP Last administered on 08/22/18at 23:41; Admin Dose 0.1 MG; Start 08/21/18 at 23:00 Menthol/Methyl Salicylate (Sahil Carrillo) 1 applic TID TOP Last administered on 08/23/18at 08:57; Admin Dose 1 APPLIC; Start 08/22/18 at 13:00 Enoxaparin Sodium (Lovenox) 80 mg BID SC ; Start 08/24/18 at 21:00; Status UNV BONITA RUBIO MD August 23, 2018 12:23
--- NOTE | 2018-08-23 14:13 | CONS ---
Consult Date/Type/Reason Admit Date/Time August 09, 2018 at 17:42 Initial Consult Date 08/10/18 Type of Consult Pulmonary Requesting Provider: KIRSTIN SPANN MD Date/Time of Note DATE: 08/23/18 TIME: 14:13 Subjective Sitting up in chair no respiratory distress. Objective Vital Signs Date Temp Pulse Resp B/P (MAP) Pulse Ox O2 O2 Flow FiO2 Time Delivery Rate 08/23/18 68 12:01 08/23/18 97.9 20 149/65 95 Room Air 11:38 (93) 08/22/18 21 01:07 08/21/18 2.0 20:08 Intake and Output 08/22/18 08/22/18 08/23/18 1515:00 23:00 07:00 IntakeIntake Total 800 ml 200 ml BalanceBalance 800 ml 200 ml Exam GENERAL: Morbidly obese lady awake alert comfortable no respiratory distress VITAL SIGNS: per chart NECK: Supple. No JVD or lymphadenopathy. CARDIAC EXAM: S1, S2. No added sounds or murmurs. CHEST: clear bilaterally, No added sounds, rales or wheezes ABDOMEN: Soft, nontender. No guarding or rebound. EXTREMITIES: No cyanosis, clubbing or edema. NEUROLOGIC: Generalized weakness. No focal deficits. Vent Setting Fraction of Inspired Oxygen pe: 21 Results/Medications Result Diagram: 08/22/18 0500 08/23/18 0456 Results 24 hrs Laboratory Tests Test 08/22/18 17:18 08/22/18 20:23 08/23/18 01:29 08/23/18 04:56 Bedside Glucose 244 H 110 100 Sodium Level 141 Potassium Level 6.1 *H Chloride Level 101 Carbon Dioxide Level 24 Anion Gap 16 H Blood Urea Nitrogen 74 H Creatinine 7.72 H Est Glomerular 5 L Filtrat Rate mL/min Glucose Level 103 # Calcium Level 8.6 Total Bilirubin 0.1 L Direct Bilirubin 0.00 Indirect Bilirubin 0.1 Aspartate Amino 23 Transf (AST/SGOT) Alanine 24 Aminotransferase (AL T/SGPT) Alkaline Phosphatase 120 Total Protein 6.8 Albumin 3.6 Globulin 3.20 Albumin/Globulin 1.12 Ratio Test 08/23/18 07:33 08/23/18 11:53 Bedside Glucose 128 77 Medications Current Medications Buspirone HCl (Buspar) 10 mg TID PO Last administered on 08/23/18 13:31; Admin Dose 10 MG; Start 08/10/18 at 09:00 Diltiazem HCl (Cardizem Cd) 120 mg DAILY PO Last administered on 08/20/18 10:20; Admin Dose 120 MG; Start 08/10/18 at 09:00 Gabapentin (Neurontin) 300 mg TID PO Last administered on 08/23/18 13:31; Admin Dose 300 MG; Start 08/10/18 at 09:00 Metoprolol Tartrate (Lopressor) 25 mg BID PO Last administered on 08/22/18 20:16; Admin Dose 25 MG; Start 08/10/18 at 09:00 Pantoprazole (Protonix Tab) 40 mg AC BREAKFAST PO Last administered on 08/23/18 06:20; Admin Dose 40 MG; Start 08/10/18 at 07:00 Sevelamer Carbonate (Renvela) 1.6 gm WITH MEALS PO Last administered on 08/23/18 11:57; Admin Dose 1.6 GM; Start 08/10/18 at 08:00 Apixaban (Eliquis) 5 mg BID PO Last administered on 08/23/18 08:54; Admin Dose 5 MG; Start 08/10/18 at 09:00; Status Hold Acetaminophen (Tylenol Tab) 650 mg Q6H PRN PO MILD PAIN(1-3)OR ELEVATED TEMP Last administered on 08/22/18 09:51; Admin Dose 650 MG; Start 08/09/18 at 23:30 Morphine Sulfate (morphine) 2 mg Q4H PRN IV SEVERE PAIN LEVEL 7-10 Last administered on 08/23/18 06:54; Admin Dose 2 MG; Start 08/09/18 at 23:30 Guaifenesin/ Codeine Phosphate (Robitussin Ac Liquid Cup) 10 ml Q4H PRN PO COUGH Last administered on 08/23/18 06:54; Admin Dose 10 ML; Start 08/09/18 at 23:30 Miscellaneous Information 1 ea NOTE XX ; Start 08/10/18 at 05:30 Glucose (Glutose) 15 gm Q15M PRN PO DECREASED GLUCOSE; Start 08/10/18 at 05:30 Glucose (Glutose) 22.5 gm Q15M PRN PO DECREASED GLUCOSE; Start 08/10/18 at 05:30 Dextrose (D50w Syringe) 25 ml Q15M PRN IV DECREASED GLUCOSE; Start 08/10/18 at 05:30 Dextrose (D50w Syringe) 50 ml Q15M PRN IV DECREASED GLUCOSE Last administered on 08/13/18 21:34; Admin Dose 50 ML; Start 08/10/18 at 05:30 Glucagon (Glucagen) 1 mg Q15M PRN IM DECREASED GLUCOSE; Start 08/10/18 at 05:30 Glucose (Glutose) 15 gm Q15M PRN BUCCAL DECREASED GLUCOSE Last administered on 08/14/18 19:18; Admin Dose 15 GM; Start 08/10/18 at 05:30 Insulin Aspart (Novolog Insulin Pen) NOVOLOG *MILD* ALGORI... AC MEALS AND BEDTIME SC Last administered on 08/22/18 17:28; Admin Dose 3 UNIT; Start 08/10/18 at 08:00 Diagnostic Test (Pha) (Accu-Chek) 1 ea 02 XX Last administered on 08/23/18 01:44; Admin Dose 1 EA; Start 08/11/18 at 02:00 Insulin Aspart (Novolog Insulin Pen) 10 unit WITH MEALS SC Last administered on 08/23/18 07:49; Admin Dose 10 UNIT; Start 08/11/18 at 08:00 Docusate Sodium (Colace) 100 mg DAILY PO Last administered on 08/23/18 08:54; Admin Dose 100 MG; Start 08/12/18 at 09:00 Tramadol HCl (Ultram) 50 mg Q12H PRN PO PAIN; Start 08/11/18 at 13:30 Diclofenac Sodium (Voltaren 1% Gel) 2 gm BID TP Last administered on 08/23/18 08:57; Admin Dose 2 GM; Start 08/11/18 at 21:00 Acetaminophen/ Hydrocodone Bitart ([place] (5/325)) 1 tab Q4H PRN PO MODERATE PAIN LEVEL 4-6 Last administered on 08/23/18 11:00; Admin Dose 1 TAB; Start 08/12/18 at 15:00 Isosorbide Dinitrate (Isordil) 10 mg TID PO Last administered on 08/22/18 20:16; Admin Dose 10 MG; Start 08/12/18 at 21:00 Lorazepam (Ativan) 1 mg Q6H PRN IV ANXIETY Last administered on 08/23/18 13:31; Admin Dose 1 MG; Start 08/12/18 at 22:30 Heparin Sodium (Porcine) (Heparin (1000 Units/ml)) 4,000 unit AFTER DIALYSIS CATHETER Last administered on 08/21/18 20:15; Admin Dose 4,000 UNIT; Start 08/13/18 at 16:30 Senna (Senokot) 2 tab BID PRN PO CONSTIPATION Last administered on 08/22/18 23:28; Admin Dose 2 TAB; Start 08/14/18 at 12:00 Albuterol/ Ipratropium (Duoneb) 3 ml Q6H RESP THERAPY PRN HHN SHORTNESS OF BREATH Last administered on 08/20/18 03:20; Admin Dose 3 ML; Start 08/15/18 at 11:00 Ondansetron HCl (Zofran Inj) 4 mg Q6H PRN IV NAUSEA AND/OR VOMITING Last administered on 08/22/18 10:46; Admin Dose 4 MG; Start 08/15/18 at 11:00 Epoetin Bam-epbx (Retacrit (Esrd)) 4,000 unit TuThSa@1700 SC Last administered on 08/21/18 20:27; Admin Dose 4,000 UNIT; Start 08/17/18 at 17:00 Multivit/Ca Carb/ B Cmplx/FA/Prenat (Addie-Mikayla) 1 tab DAILY PO Last administered on 08/23/18 08:54; Admin Dose 1 TAB; Start 08/16/18 at 12:00 Hydrocortisone (Hydrocortisone 0.5% Cr) 1 applic BID PRN TOP ITCHING Last administered on 08/20/18 20:52; Admin Dose 1 APPLIC; Start 08/16/18 at 22:30 Zolpidem Tartrate (Ambien) 5 mg HS PRN PO INSOMNIA Last administered on 08/22/18 21:13; Admin Dose 5 MG; Start 08/17/18 at 21:30 Clotrimazole (Clotrim 1% Vaginal Cr) 1 applic BID VAG Last administered on 08/23/18 11:55; Admin Dose 1 APPLIC; Start 08/19/18 at 21:00; Stop 08/26/18 at 20:59 Bumetanide (Bumex) 2 mg BID DIURETICS PO Last administered on 08/23/18at 06:20; Admin Dose 2 MG; Start 08/19/18 at 18:00 Insulin Glargine (Lantus) 22 units DAILY@0800 SC Last administered on 08/23/18at 07:50; Admin Dose 22 UNITS; Start 08/20/18 at 08:00 Hydralazine HCl (Apresoline) 50 mg Q8 PO Last administered on 08/23/18at 06:21; Admin Dose 50 MG; Start 08/20/18 at 14:00 Albuterol (Proventil 0.083% (Neb)) 1.25 mg Q2H RESP THERAPY PRN HHN shortness of breath; Start 08/21/18 at 11:00 Clonidine (Catapres) 0.1 mg Q6H PRN PO ELEVATED SYSTOLIC BP Last administered on 08/22/18at 23:41; Admin Dose 0.1 MG; Start 08/21/18 at 23:00 Menthol/Methyl Salicylate (Sahil Carrillo) 1 applic TID TOP Last administered on 08/23/18at 08:57; Admin Dose 1 APPLIC; Start 08/22/18 at 13:00 Enoxaparin Sodium (Lovenox) 80 mg BID SC ; Start 08/24/18 at 21:00; Status UNV Assessment/Plan Hospital Course (Demo Recall) IMPRESSION 1. Worsening hypoxemia likely secondary to increased volume overload. Appears clinically improved. 2. End-stage renal failure on hemodialysis. 3. Likely moderate to severe chronic obstructive pulmonary disease. 4. Probable obstructive sleep apnea. 5. Essential hypertension. 6. Diabetes mellitus. Plan 1. Continue hemodialysis as tolerated correction of hyperkalemia 2. Bronchodilators as needed 3. CT chest noncontrast demonstrates chronic small left pleural effusion not enough for thoracentesis. 4. Cardiac recommendations possible coronary angiography If patient declines coronary angiography DC planning okay from pulmonary standpoint DIONISIO CONTRERAS MD, [facility] August 23, 2018 14:13
[2018-08-23] MEDS ORDERED: LORAZEPAM 2 MG INJ IV ONE (14:30)
--- NOTE | 2018-08-23 17:10 | PN ---
Date/Time of Note Date/Time of Note DATE: 08/23/18 TIME: 17:06 Assessment/Plan VTE Prophylaxis Risk score (from Ns)>0 risk: 7 SCD applied (from Ns): Yes Pharmacological prophylaxis: LMWH Lines/Catheters IV Catheter Type (from [facility]): [facility] Urinary Cath still in place: No Assessment/Plan Hospital Course Patient is undergoing hemodialysis. Positive stress test and positive troponin on admission, cardiology recommends left heart catheterization scheduled for tomorrow patient stated that she needs to talk to her daughter. Prior to making decision. All questions answered. Assessment/Plan -Healthcare associated pneumonia, continue broad-spectrum antibiotics, Dr. Lucas is following in infection disease consultation. -Hyperkalemia -Dialysis dependent end-stage renal disease. Dr. Spicer is following in nephrology consultation. -Elevated troponin, abnormal stress test. Dr. William is following in cardiology consultation. -Atrial fibrillation, continue metoprolol and Eliquis. -Anemia of chronic disease, continue Epogen. -Diabetes mellitus type 2 with hemoglobin A1c of 6.5, continue Lantus and NovoLog -Peripheral vascular disease history of left lower extremity bypass surgery. -Right foot ulcer. Dr. Pineda is following and podiatry consultation. -Bilateral lower extremities edema, continue to remove fluids with hemodialysis, continue Bumex, fluid restriction. Disposition: to transitional living facility when symptoms resolve and cleared by consultants. Further recommendations based on clinical course. Plan of care discussed with Dr. Cordero. Result Diagram: 08/22/18 0500 08/23/18 0456 Results 24hrs Laboratory Tests Test 08/22/18 17:18 08/22/18 20:23 08/23/18 01:29 08/23/18 04:56 Bedside Glucose 244 H 110 100 Sodium Level 141 Potassium Level 6.1 *H Chloride Level 101 Carbon Dioxide Level 24 Anion Gap 16 H Blood Urea Nitrogen 74 H Creatinine 7.72 H Est Glomerular 5 L Filtrat Rate mL/min Glucose Level 103 # Calcium Level 8.6 Total Bilirubin 0.1 L Direct Bilirubin 0.00 Indirect Bilirubin 0.1 Aspartate Amino 23 Transf (AST/SGOT) Alanine 24 Aminotransferase (AL T/SGPT) Alkaline Phosphatase 120 Total Protein 6.8 Albumin 3.6 Globulin 3.20 Albumin/Globulin 1.12 Ratio Test 08/23/18 07:33 08/23/18 11:53 Bedside Glucose 128 77 Exam/Review of Systems Exam Vitals Vital Signs Date Temp Pulse Resp B/P (MAP) Pulse Ox O2 O2 Flow FiO2 Time Delivery Rate 08/23/18 59 16:01 08/23/18 97.6 20 111/52 92 Room Air 15:20 (71) 08/22/18 21 01:07 08/21/18 2.0 20:08 Intake and Output 08/22/18 08/22/18 08/23/18 1414:59 22:59 06:59 IntakeIntake Total 800 ml 200 ml BalanceBalance 800 ml 200 ml Exam Constitutional: alert, oriented Respiratory: diminished breath sounds Cardiovascular: regular rate and rhythm Gastrointestinal: soft, non-tender Musculoskeletal: nl extremities to inspection Extremities: normal pulses, other (Right foot ulcer) Neurological: nl mental status Left chest hemodialysis catheter Results Results 24hrs Laboratory Tests Test 08/22/18 17:18 08/22/18 20:23 08/23/18 01:29 08/23/18 04:56 Bedside Glucose 244 H 110 100 Sodium Level 141 Potassium Level 6.1 *H Chloride Level 101 Carbon Dioxide Level 24 Anion Gap 16 H Blood Urea Nitrogen 74 H Creatinine 7.72 H Est Glomerular 5 L Filtrat Rate mL/min Glucose Level 103 # Calcium Level 8.6 Total Bilirubin 0.1 L Direct Bilirubin 0.00 Indirect Bilirubin 0.1 Aspartate Amino 23 Transf (AST/SGOT) Alanine 24 Aminotransferase (AL T/SGPT) Alkaline Phosphatase 120 Total Protein 6.8 Albumin 3.6 Globulin 3.20 Albumin/Globulin 1.12 Ratio Test 08/23/18 07:33 08/23/18 11:53 Bedside Glucose 128 77 Medications Medication Current Medications Buspirone HCl (Buspar) 10 mg TID PO Last administered on 08/23/18 13:31; Admin Dose 10 MG; Start 08/10/18 at 09:00 Diltiazem HCl (Cardizem Cd) 120 mg DAILY PO Last administered on 08/20/18 10:20; Admin Dose 120 MG; Start 08/10/18 at 09:00 Gabapentin (Neurontin) 300 mg TID PO Last administered on 08/23/18 13:31; Admin Dose 300 MG; Start 08/10/18 at 09:00 Metoprolol Tartrate (Lopressor) 25 mg BID PO Last administered on 08/22/18 20:16; Admin Dose 25 MG; Start 08/10/18 at 09:00 Pantoprazole (Protonix Tab) 40 mg AC BREAKFAST PO Last administered on 08/23/18 06:20; Admin Dose 40 MG; Start 08/10/18 at 07:00 Sevelamer Carbonate (Renvela) 1.6 gm WITH MEALS PO Last administered on 08/23/18 11:57; Admin Dose 1.6 GM; Start 08/10/18 at 08:00 Apixaban (Eliquis) 5 mg BID PO Last administered on 08/23/18 08:54; Admin Dose 5 MG; Start 08/10/18 at 09:00; Status Hold Acetaminophen (Tylenol Tab) 650 mg Q6H PRN PO MILD PAIN(1-3)OR ELEVATED TEMP Last administered on 08/22/18 09:51; Admin Dose 650 MG; Start 08/09/18 at 23:30 Morphine Sulfate (morphine) 2 mg Q4H PRN IV SEVERE PAIN LEVEL 7-10 Last administered on 08/23/18 06:54; Admin Dose 2 MG; Start 08/09/18 at 23:30 Guaifenesin/ Codeine Phosphate (Robitussin Ac Liquid Cup) 10 ml Q4H PRN PO COUGH Last administered on 08/23/18 06:54; Admin Dose 10 ML; Start 08/09/18 at 23:30 Miscellaneous Information 1 ea NOTE XX ; Start 08/10/18 at 05:30 Glucose (Glutose) 15 gm Q15M PRN PO DECREASED GLUCOSE; Start 08/10/18 at 05:30 Glucose (Glutose) 22.5 gm Q15M PRN PO DECREASED GLUCOSE; Start 08/10/18 at 05:30 Dextrose (D50w Syringe) 25 ml Q15M PRN IV DECREASED GLUCOSE; Start 08/10/18 at 05:30 Dextrose (D50w Syringe) 50 ml Q15M PRN IV DECREASED GLUCOSE Last administered on 08/13/18 21:34; Admin Dose 50 ML; Start 08/10/18 at 05:30 Glucagon (Glucagen) 1 mg Q15M PRN IM DECREASED GLUCOSE; Start 08/10/18 at 05:30 Glucose (Glutose) 15 gm Q15M PRN BUCCAL DECREASED GLUCOSE Last administered on 08/14/18 19:18; Admin Dose 15 GM; Start 08/10/18 at 05:30 Insulin Aspart (Novolog Insulin Pen) NOVOLOG *MILD* ALGORI... AC MEALS AND BEDTIME SC Last administered on 08/22/18 17:28; Admin Dose 3 UNIT; Start 08/10/18 at 08:00 Diagnostic Test (Pha) (Accu-Chek) 1 ea 02 XX Last administered on 08/23/18 01:44; Admin Dose 1 EA; Start 08/11/18 at 02:00 Docusate Sodium (Colace) 100 mg DAILY PO Last administered on 08/23/18 08:54; Admin Dose 100 MG; Start 08/12/18 at 09:00 Tramadol HCl (Ultram) 50 mg Q12H PRN PO PAIN; Start 08/11/18 at 13:30 Diclofenac Sodium (Voltaren 1% Gel) 2 gm BID TP Last administered on 08/23/18 08:57; Admin Dose 2 GM; Start 08/11/18 at 21:00 Acetaminophen/ Hydrocodone Bitart ([place] (5/325)) 1 tab Q4H PRN PO MODERATE PAIN LEVEL 4-6 Last administered on 08/23/18 11:00; Admin Dose 1 TAB; Start 08/12/18 at 15:00 Isosorbide Dinitrate (Isordil) 10 mg TID PO Last administered on 08/22/18 20:16; Admin Dose 10 MG; Start 08/12/18 at 21:00 Lorazepam (Ativan) 1 mg Q6H PRN IV ANXIETY Last administered on 08/23/18 13:31; Admin Dose 1 MG; Start 08/12/18 at 22:30 Heparin Sodium (Porcine) (Heparin (1000 Units/ml)) 4,000 unit AFTER DIALYSIS CATHETER Last administered on 08/21/18 20:15; Admin Dose 4,000 UNIT; Start 08/13/18 at 16:30 Senna (Senokot) 2 tab BID PRN PO CONSTIPATION Last administered on 08/22/18 23:28; Admin Dose 2 TAB; Start 08/14/18 at 12:00 Albuterol/ Ipratropium (Duoneb) 3 ml Q6H RESP THERAPY PRN HHN SHORTNESS OF BREATH Last administered on 08/20/18 03:20; Admin Dose 3 ML; Start 08/15/18 at 11:00 Ondansetron HCl (Zofran Inj) 4 mg Q6H PRN IV NAUSEA AND/OR VOMITING Last administered on 08/22/18 10:46; Admin Dose 4 MG; Start 08/15/18 at 11:00 Epoetin Bam-epbx (Retacrit (Esrd)) 4,000 unit TuThSa@1700 SC Last administered on 08/21/18 20:27; Admin Dose 4,000 UNIT; Start 08/17/18 at 17:00 Multivit/Ca Carb/ B Cmplx/FA/Prenat (Addie-Mikayla) 1 tab DAILY PO Last administered on 08/23/18 08:54; Admin Dose 1 TAB; Start 08/16/18 at 12:00 Hydrocortisone (Hydrocortisone 0.5% Cr) 1 applic BID PRN TOP ITCHING Last administered on 08/20/18 20:52; Admin Dose 1 APPLIC; Start 08/16/18 at 22:30 Zolpidem Tartrate (Ambien) 5 mg HS PRN PO INSOMNIA Last administered on 08/22/18 21:13; Admin Dose 5 MG; Start 08/17/18 at 21:30 Clotrimazole (Clotrim 1% Vaginal Cr) 1 applic BID VAG Last administered on 08/23/18 11:55; Admin Dose 1 APPLIC; Start 08/19/18 at 21:00; Stop 08/26/18 at 20:59 Bumetanide (Bumex) 2 mg BID DIURETICS PO Last administered on 08/23/18 06:20; Admin Dose 2 MG; Start 08/19/18 at 18:00 Insulin Glargine (Lantus) 22 units DAILY@0800 SC Last administered on 08/23/18 07:50; Admin Dose 22 UNITS; Start 08/20/18 at 08:00 Hydralazine HCl (Apresoline) 50 mg Q8 PO Last administered on 08/23/18 06:21; Admin Dose 50 MG; Start 08/20/18 at 14:00 Albuterol (Proventil 0.083% (Neb)) 1.25 mg Q2H RESP THERAPY PRN HHN shortness of breath; Start 08/21/18 at 11:00 Clonidine (Catapres) 0.1 mg Q6H PRN PO ELEVATED SYSTOLIC BP Last administered on 08/22/18at 23:41; Admin Dose 0.1 MG; Start 08/21/18 at 23:00 Menthol/Methyl Salicylate (Sahil Carrillo) 1 applic TID TOP Last administered on 08/23/18at 08:57; Admin Dose 1 APPLIC; Start 08/22/18 at 13:00 Enoxaparin Sodium (Lovenox) 80 mg BID SC ; Start 08/24/18 at 21:00; Status UNV Insulin Aspart (Novolog Insulin Pen) 7 unit WITH MEALS SC ; Start 08/23/18 at 18:00 ANTHONY DUPREE August 23, 2018 17:10
[2018-08-23] MEDS: HEPARIN 1000 UNITS/ML 10 ML INJ CATHETER SCH (17:37)
[2018-08-23] MEDS ORDERED: INSULIN ASPART [NOVOLOG] 3 ML PEN SC SCH (18:00)
[2018-08-23] MEDS ORDERED: ENOXAPARIN 100 MG/ML SYG SC SCH (21:00)
[2018-08-23] MEDS: ZOLPIDEM 5 MG TAB PO PRN (21:13)
[2018-08-24] VITALS (8 sets, daily range): BP systolic 100–135; BP diastolic 54–64; PULSE 64–87; RESP 18–22
[2018-08-24] MEDS: ACCU-CHEK XX SCH (02:00)
[2018-08-24] MEDS: morphine 2 MG INJ IV PRN ×2 (04:08→13:38)
[2018-08-24] MEDS: BUMETANIDE 1 MG TAB PO SCH ×2 (06:17→17:30)
[2018-08-24] MEDS: PANTOPRAZOLE (EC) 40 MG TAB PO SCH (06:17)
[2018-08-24] MEDS ORDERED: INSULIN GLARGINE [LANTus] (100 UNITS/ML) SYG SC SCH (08:00)
[2018-08-24] MEDS: INSULIN ASPART [NOVOLOG] 3 ML PEN SC SCH ×6 (08:23→17:56)
[2018-08-24] MEDS: DICLOFENAC SODIUM 1% GEL 100 GM TUBE TP SCH (08:27)
[2018-08-24] MEDS: MENTHOL/METH SALICYLATE 30 GM OINT TOP SCH ×2 (08:27→13:15)
[2018-08-24] MEDS: SEVELAMER CARBONATE 0.8 GM PKT PO SCH ×3 (08:27→17:30)
[2018-08-24] MEDS: MULTIVIT/CA CARB/B CMPLX/FA TAB PO SCH (08:28)
[2018-08-24] MEDS: BUSPIRONE 10 MG TAB PO SCH ×2 (08:28→13:14)
[2018-08-24] MEDS: GABAPENTIN 300 MG CAP PO SCH ×2 (08:28→13:12)
[2018-08-24] MEDS: DILTIAZEM (CD) 120 MG CAP PO SCH ×2 (08:28→08:53)
[2018-08-24] MEDS: DOCUSATE SODIUM 100 MG CAP PO SCH (08:29)
[2018-08-24] MEDS: METOPROLOL 25 MG TAB PO SCH (08:29)
[2018-08-24] MEDS: ISOSORBIDE DINITRATE 10 MG TAB PO SCH ×3 (08:29→13:00)
[2018-08-24] MEDS: CLOTRIMAZOLE 1% 45 GM VAG CR VAG SCH (08:50)
[2018-08-24] MEDS: HYDROCODONE/APAP (5/325) TAB PO PRN (08:55)
[2018-08-24] MEDS: LORAZEPAM 2 MG INJ IV PRN (10:08)
[2018-08-24] MEDS: ACETAMINOPHEN 325 MG TAB PO PRN (10:09)
--- NOTE | 2018-08-24 11:18 | CONS ---
Assessment/Plan Assessment/Plan Assessment/Plan (Daily) 58 y/o with 1. Shortness of breath, cough, with fevers, likely secondary to pneumonia; however, might have some underlying fluid overload. 2. Hyperkalemia. Not sure about patient's compliance; however, the patient had been going to his dialysis center. 3. Elevated troponin. Patient has history of end-stage renal disease.? ACS now positive stress test 4. History of peripheral vascular disease. 5. End-stage renal disease 6. Anemia, likely anemia of chronic disease. 7. Peripheral vascular disease status post bypass of the left lower extremity. 8. Right foot ulcer with infection at the site of recent debridement. Cultures grew MSSA and Enterococcus. 9. History of central stenosis with apparent revascularization. 10. Status post placement of left IJ Permcath 06/2017. 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 Exam/Review of Systems Exam Vitals Vital Signs Date Temp Pulse Resp B/P (MAP) Pulse Ox O2 O2 Flow FiO2 Time Delivery Rate 08/24/18 80 08:01 08/24/18 98.8 22 135/64 96 Room Air 07:36 (87) 08/23/18 2.0 21:00 08/22/18 21 01:07 Intake and Output 08/23/18 08/23/18 08/24/18 1515:00 23:00 07:00 IntakeIntake Total 600 ml 350 ml OutputOutput Total 200 ml 3400 ml BalanceBalance -200 ml -2800 ml 350 ml Exam Constitutional: alert, oriented Psych: anxiety (about cardiac surgery) Respiratory: decbreath sounds bases Cardiovascular: regular rate and rhythm Gastrointestinal: soft, distended Skin: other (lower extremities discoloration), ble edema improved s/p amputaion Results Result Diagram: 08/24/18 0508/24/18 05 Results 24hrs Laboratory Tests Test 08/23/18 11:53 08/23/18 17:36 08/23/18 20:59 08/23/18 22:40 Bedside Glucose 77 210 419 *H 275 H Test 08/24/18 02:25 08/24/18 05:21 08/24/18 08:22 Bedside Glucose 86 106 White Blood Count 7.0 # Red Blood Count 3.13 L Hemoglobin 10.7 L Hematocrit 34.0 L Mean Corpuscular 108.6 H Volume Mean Corpuscular 34.2 H Hemoglobin Mean Corpuscular 31.5 L Hemoglobin Concent Red Cell 17.6 H Distribution Width Platelet Count 186 Mean Platelet Volume 11.5 H Immature 0.300 Granulocytes % Neutrophils % 78.3 H Lymphocytes % 11.4 L Monocytes % 7.3 Eosinophils % 2.3 Basophils % 0.4 Nucleated Red Blood 0.0 Cells % Immature 0.020 Granulocytes # Neutrophils # 5.5 Lymphocytes # 0.8 Monocytes # 0.5 Eosinophils # 0.2 Basophils # 0.0 Nucleated Red Blood 0.0 Cells # Prothrombin Time 13.6 Prothrombin Time 1.1 Ratio INR International 1.03 Normalized Ratio Sodium Level 138 Potassium Level 4.7 Chloride Level 97 Carbon Dioxide Level 27 Anion Gap 14 H Blood Urea Nitrogen 47 #H Creatinine 5.19 #H Est Glomerular 8 L Filtrat Rate mL/min Glucose Level 89 Calcium Level 8.9 Medications Medication Current Medications Buspirone HCl (Buspar) 10 mg TID PO Last administered on 08/24/18at 08:28; Admin Dose 10 MG; Start 08/10/18 at 09:00 Diltiazem HCl (Cardizem Cd) 120 mg DAILY PO Last administered on 08/20/18at 10:20; Admin Dose 120 MG; Start 08/10/18 at 09:00 Gabapentin (Neurontin) 300 mg TID PO Last administered on 08/24/18at 08:28; Admin Dose 300 MG; Start 08/10/18 at 09:00 Metoprolol Tartrate (Lopressor) 25 mg BID PO Last administered on 08/24/18at 08:29; Admin Dose 25 MG; Start 08/10/18 at 09:00 Pantoprazole (Protonix Tab) 40 mg AC BREAKFAST PO Last administered on 08/24/18 06:17; Admin Dose 40 MG; Start 08/10/18 at 07:00 Sevelamer Carbonate (Renvela) 1.6 gm WITH MEALS PO Last administered on 08/24/18 08:27; Admin Dose 1.6 GM; Start 08/10/18 at 08:00 Apixaban (Eliquis) 5 mg BID PO Last administered on 08/23/18at 08:54; Admin Dose 5 MG; Start 08/10/18 at 09:00; Status Hold Acetaminophen (Tylenol Tab) 650 mg Q6H PRN PO MILD PAIN(1-3)OR ELEVATED TEMP Last administered on 08/24/18at 10:09; Admin Dose 650 MG; Start 08/09/18 at 23:30 Morphine Sulfate (morphine) 2 mg Q4H PRN IV SEVERE PAIN LEVEL 7-10 Last administered on 08/24/18 04:08; Admin Dose 2 MG; Start 08/09/18 at 23:30 Guaifenesin/ Codeine Phosphate (Robitussin Ac Liquid Cup) 10 ml Q4H PRN PO COUGH Last administered on 08/23/18at 23:42; Admin Dose 10 ML; Start 08/09/18 at 23:30 Miscellaneous Information 1 ea NOTE XX ; Start 08/10/18 at 05:30 Glucose (Glutose) 15 gm Q15M PRN PO DECREASED GLUCOSE; Start 08/10/18 at 05:30 Glucose (Glutose) 22.5 gm Q15M PRN PO DECREASED GLUCOSE; Start 08/10/18 at 05:30 Dextrose (D50w Syringe) 25 ml Q15M PRN IV DECREASED GLUCOSE; Start 08/10/18 at 05:30 Dextrose (D50w Syringe) 50 ml Q15M PRN IV DECREASED GLUCOSE Last administered on 08/13/18at 21:34; Admin Dose 50 ML; Start 08/10/18 at 05:30 Glucagon (Glucagen) 1 mg Q15M PRN IM DECREASED GLUCOSE; Start 08/10/18 at 05:30 Glucose (Glutose) 15 gm Q15M PRN BUCCAL DECREASED GLUCOSE Last administered on 08/14/18at 19:18; Admin Dose 15 GM; Start 08/10/18 at 05:30 Insulin Aspart (Novolog Insulin Pen) NOVOLOG *MILD* ALGORI... AC MEALS AND BED TIME SC Last administered on 08/23/18 22:57; Admin Dose 6 UNIT; Start 08/10/18 at 08:00 Diagnostic Test (Pha) (Accu-Chek) 1 ea 02 XX Last administered on 08/24/18 02:00; Admin Dose 1 EA; Start 08/11/18 at 02:00 Docusate Sodium (Colace) 100 mg DAILY PO Last administered on 08/24/18 08:29; Admin Dose 100 MG; Start 08/12/18 at 09:00 Tramadol HCl (Ultram) 50 mg Q12H PRN PO PAIN; Start 08/11/18 at 13:30 Diclofenac Sodium (Voltaren 1% Gel) 2 gm BID TP Last administered on 08/24/18 08:27; Admin Dose 2 GM; Start 08/11/18 at 21:00 Acetaminophen/ Hydrocodone Bitart ([place] (5/325)) 1 tab Q4H PRN PO MODERATE PAIN LEVEL 4-6 Last administered on 08/24/18 08:55; Admin Dose 1 TAB; Start 08/12/18 at 15:00 Isosorbide Dinitrate (Isordil) 10 mg TID PO Last administered on 08/22/18 20:16; Admin Dose 10 MG; Start 08/12/18 at 21:00 Lorazepam (Ativan) 1 mg Q6H PRN IV ANXIETY Last administered on 08/24/18 10:08; Admin Dose 1 MG; Start 08/12/18 at 22:30 Heparin Sodium (Porcine) (Heparin (1000 Units/ml)) 4,000 unit AFTER DIALYSIS CATHETER Last administered on 08/23/18 17:37; Admin Dose 2,300 UNIT; Start 08/13/18 at 16:30 Senna (Senokot) 2 tab BID PRN PO CONSTIPATION Last administered on 08/22/18 23:28; Admin Dose 2 TAB; Start 08/14/18 at 12:00 Albuterol/ Ipratropium (Duoneb) 3 ml Q6H RESP THERAPY PRN HHN SHORTNESS OF BREATH Last administered on 08/20/18 03:20; Admin Dose 3 ML; Start 08/15/18 at 11:00 Ondansetron HCl (Zofran Inj) 4 mg Q6H PRN IV NAUSEA AND/OR VOMITING Last administered on 08/22/18 10:46; Admin Dose 4 MG; Start 08/15/18 at 11:00 Epoetin Bam-epbx (Retacrit (Esrd)) 4,000 unit TuThSa@1700 SC Last administered on 08/21/18 20:27; Admin Dose 4,000 UNIT; Start 08/17/18 at 17:00 Multivit/Ca Carb/ B Cmplx/FA/Prenat (Addie-Mikayla) 1 tab DAILY PO Last administered on 08/24/18 08:28; Admin Dose 1 TAB; Start 08/16/18 at 12:00 Hydrocortisone (Hydrocortisone 0.5% Cr) 1 applic BID PRN TOP ITCHING Last administered on 08/20/18 20:52; Admin Dose 1 APPLIC; Start 08/16/18 at 22:30 Zolpidem Tartrate (Ambien) 5 mg HS PRN PO INSOMNIA Last administered on 08/23/18 21:13; Admin Dose 5 MG; Start 08/17/18 at 21:30 Clotrimazole (Clotrim 1% Vaginal Cr) 1 applic BID VAG Last administered on 08/24/18 08:50; Admin Dose 1 APPLIC; Start 08/19/18 at 21:00; Stop 08/26/18 at 20:59 Bumetanide (Bumex) 2 mg BID DIURETICS PO Last administered on 08/24/18 06:17; Admin Dose 2 MG; Start 08/19/18 at 18:00 Hydralazine HCl (Apresoline) 50 mg Q8 PO Last administered on 08/24/18 06:17; Admin Dose 50 MG; Start 08/20/18 at 14:00 Albuterol (Proventil 0.083% (Neb)) 1.25 mg Q2H RESP THERAPY PRN HHN shortness of breath; Start 08/21/18 at 11:00 Clonidine (Catapres) 0.1 mg Q6H PRN PO ELEVATED SYSTOLIC BP Last administered on 08/22/18 23:41; Admin Dose 0.1 MG; Start 08/21/18 at 23:00 Enoxaparin Sodium (Lovenox) 100 mg Q24H SC ; Start 08/23/18 at 21:00 Insulin Aspart (Novolog Insulin Pen) 8 unit WITH MEALS SC Last administered on 08/24/18at 08:42; Admin Dose 8 UNIT; Start 08/24/18 at 08:00 Insulin Glargine (Lantus) 24 units DAILY@0800 SC Last administered on 08/24/18at 08:43; Admin Dose 24 UNITS; Start 08/24/18 at 08:00 Menthol/Methyl Salicylate (Sahil Carrillo) 1 applic TID TOP Last administered on 08/24/18at 08:27; Admin Dose 1 APPLIC; Start 08/24/18 at 09:00 DARELL JAMES MD August 24, 2018 11:18
--- NOTE | 2018-08-24 12:48 | CONS ---
Assessment/Plan Assessment/Plan Hospital Course (Demo Recall) -Hyperkalemia- per PMD - S/p sepsis d/t HCAP - fever and tachycardia resolved - HCAP - slowly improving - Likely underlying fluid overload - Per CXR 08/21/18 Questionable 1.4 cm right lower lobe nodular opacity. Follow- up CT chest is recommended. - ESRD on HD T-T-S - Hyperkalemia - Elevated troponin - H/o non-healing diabetic R foot ulceration with infection at site of recent debridement; cultures grew MSSA and Enterococcus (ESR 93) - S/p excisional sharp debridement of the right first toe involving skin and subcutaneous tissue on 06/11/2017 - Evidence of osteomyelitis at the remnant of the first distal phalanx per MRI R foot 06/24/2017 - DM with hypoglycemic episode - Hgb A1c 6.5% - Diabetic neuropathy - H/o diabetic foot infections/OM of b/l feet, s/p amputation of R two toes - H/o central stenosis with apparent recent re-vascularization - S/p placement of L IJ HD catheter 06/20/2017 - PVD - H/o LLE bypass - CHF and CAD - Anemia of chronic kidney disease - Morbid obesity - BMI 39.9 - H/o dysphagia, Group A pharyngitis screen was negative - H/o mildly dilated esophagus on CT (11/2016) and multiple distal erosive lesions in the distal esophagus per EGD (11/27/2016; path negative) - 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 Pt's sinuses are non-TTP. On a trial of renally dosed oseltamivir (06/30/2017-) Resulted: respiratory virus panel (negative), pertussis screen neg Recommendations: - Monitor closely off antibiotics; S/p Cefepime (08/09/2018-08/18/18) Above plan d/w via [facility] Consultation Date/Type/Reason Admit Date/Time August 09, 2018 at 17:42 Initial Consult Date 08/10/18 Requesting Provider: KIRSTIN SPANN MD Date/Time of Note DATE: 08/24/18 TIME: 12:48 24 HR Interval Summary Free Text/Dictation Refused angiogram. Dry cough controlled with Robitussin. Detailed Summary Eyes: no complaints ENT: no complaints Respiratory: cough (non productive) Gastrointestinal: no complaints Genitourinary: no complaints Musculoskeletal: no complaints Skin: no complaints Neurologic: no complaints Endocrine: no complaints Psychological: anxiety Exam/Review of Systems Exam Vitals Vital Signs Date Temp Pulse Resp B/P (MAP) Pulse Ox O2 O2 Flow FiO2 Time Delivery Rate 08/24/18 79 12:01 08/24/18 97.6 22 100/54 96 Room Air 11:37 (69) 08/23/18 2.0 21:00 08/22/18 21 01:07 Intake and Output 08/23/18 08/23/18 08/24/18 1515:00 23:00 07:00 IntakeIntake Total 600 ml 350 ml OutputOutput Total 200 ml 3400 ml BalanceBalance -200 ml -2800 ml 350 ml Exam Constitutional: alert, oriented, well developed, obese Psych: anxiety Head: normocephalic, atraumatic Eyes: nl conjunctiva, EOMI, PERRL; No icteric ENMT: nl external ears & nose, nl nasal mucosa & septum, mucosa pink and moist Neck: supple Respiratory: diminished breath sounds bases, other (mild rhonchi bilaterally ); No crackles/rales, No labored breathing, No wheezing Cardiovascular: regular rate and rhythm Gastrointestinal: soft, non-tender, bowel sounds (normoactive); No distended Musculoskeletal: nl extremities to inspection, range of motion Extremities: No clubbing Neurological: nl mental status, nl speech, nl strength; No confused, No numbness Skin: ecchymosis, other (R foot dry ulcer no drainage or s/s infection); No rash or lesions Results Result Diagram: 08/24/1852008/24/18520 Results 24hrs Laboratory Tests Test 08/23/18 17:36 08/23/18 20:59 08/23/18 22:40 08/24/18 02:25 Bedside Glucose 210 419 *H 275 H 86 Test 08/24/18 05:21 08/24/18 08:22 08/24/18 11:47 White Blood Count 7.0 # Red Blood Count 3.13 L Hemoglobin 10.7 L Hematocrit 34.0 L Mean Corpuscular 108.6 H Volume Mean Corpuscular 34.2 H Hemoglobin Mean Corpuscular 31.5 L Hemoglobin Concent Red Cell 17.6 H Distribution Width Platelet Count 186 Mean Platelet Volume 11.5 H Immature 0.300 Granulocytes % Neutrophils % 78.3 H Lymphocytes % 11.4 L Monocytes % 7.3 Eosinophils % 2.3 Basophils % 0.4 Nucleated Red Blood 0.0 Cells % Immature 0.020 Granulocytes # Neutrophils # 5.5 Lymphocytes # 0.8 Monocytes # 0.5 Eosinophils # 0.2 Basophils # 0.0 Nucleated Red Blood 0.0 Cells # Prothrombin Time 13.6 Prothrombin Time 1.1 Ratio INR International 1.03 Normalized Ratio Sodium Level 138 Potassium Level 4.7 Chloride Level 97 Carbon Dioxide Level 27 Anion Gap 14 H Blood Urea Nitrogen 47 #H Creatinine 5.19 #H Est Glomerular 8 L Filtrat Rate mL/min Glucose Level 89 Calcium Level 8.9 Bedside Glucose 106 199 Medications Medication Current Medications Buspirone HCl (Buspar) 10 mg TID PO Last administered on 08/24/18 08:28; Admin Dose 10 MG; Start 08/10/18 at 09:00 Diltiazem HCl (Cardizem Cd) 120 mg DAILY PO Last administered on 08/20/18 10:20; Admin Dose 120 MG; Start 08/10/18 at 09:00 Gabapentin (Neurontin) 300 mg TID PO Last administered on 08/24/18 08:28; Admin Dose 300 MG; Start 08/10/18 at 09:00 Metoprolol Tartrate (Lopressor) 25 mg BID PO Last administered on 08/24/18 08:29; Admin Dose 25 MG; Start 08/10/18 at 09:00 Pantoprazole (Protonix Tab) 40 mg AC BREAKFAST PO Last administered on 08/24/18 06:17; Admin Dose 40 MG; Start 08/10/18 at 07:00 Sevelamer Carbonate (Renvela) 1.6 gm WITH MEALS PO Last administered on 08/24/18 11:49; Admin Dose 1.6 GM; Start 08/10/18 at 08:00 Apixaban (Eliquis) 5 mg BID PO Last administered on 08/23/18 08:54; Admin Dose 5 MG; Start 08/10/18 at 09:00; Status Hold Acetaminophen (Tylenol Tab) 650 mg Q6H PRN PO MILD PAIN(1-3)OR ELEVATED TEMP Last administered on 08/24/18 10:09; Admin Dose 650 MG; Start 08/09/18 at 23:30 Morphine Sulfate (morphine) 2 mg Q4H PRN IV SEVERE PAIN LEVEL 7-10 Last administered on 08/24/18 04:08; Admin Dose 2 MG; Start 08/09/18 at 23:30 Guaifenesin/ Codeine Phosphate (Robitussin Ac Liquid Cup) 10 ml Q4H PRN PO COUGH Last administered on 08/23/18at 23:42; Admin Dose 10 ML; Start 08/09/18 at 23:30 Miscellaneous Information 1 ea NOTE XX ; Start 08/10/18 at 05:30 Glucose (Glutose) 15 gm Q15M PRN PO DECREASED GLUCOSE; Start 08/10/18 at 05:30 Glucose (Glutose) 22.5 gm Q15M PRN PO DECREASED GLUCOSE; Start 08/10/18 at 05:30 Dextrose (D50w Syringe) 25 ml Q15M PRN IV DECREASED GLUCOSE; Start 08/10/18 at 05:30 Dextrose (D50w Syringe) 50 ml Q15M PRN IV DECREASED GLUCOSE Last administered on 08/13/18at 21:34; Admin Dose 50 ML; Start 08/10/18 at 05:30 Glucagon (Glucagen) 1 mg Q15M PRN IM DECREASED GLUCOSE; Start 08/10/18 at 05:30 Glucose (Glutose) 15 gm Q15M PRN BUCCAL DECREASED GLUCOSE Last administered on 08/14/18 19:18; Admin Dose 15 GM; Start 08/10/18 at 05:30 Insulin Aspart (Novolog Insulin Pen) NOVOLOG *MILD* ALGORI... AC MEALS AND BEDTIME SC Last administered on 08/24/18at 12:10; Admin Dose 2 UNIT; Start 08/10/18 at 08:00 Diagnostic Test (Pha) (Accu-Chek) 1 ea 02 XX Last administered on 08/24/18at 02:00; Admin Dose 1 EA; Start 08/11/18 at 02:00 Docusate Sodium (Colace) 100 mg DAILY PO Last administered on 08/24/18at 08:29; Admin Dose 100 MG; Start 08/12/18 at 09:00 Tramadol HCl (Ultram) 50 mg Q12H PRN PO PAIN; Start 08/11/18 at 13:30 Diclofenac Sodium (Voltaren 1% Gel) 2 gm BID TP Last administered on 08/24/18 08:27; Admin Dose 2 GM; Start 08/11/18 at 21:00 Acetaminophen/ Hydrocodone Bitart ([place] (5/325)) 1 tab Q4H PRN PO MODERATE PAIN LEVEL 4-6 Last administered on 08/24/18 08:55; Admin Dose 1 TAB; Start 08/12/18 at 15:00 Isosorbide Dinitrate (Isordil) 10 mg TID PO Last administered on 08/22/18 20:16; Admin Dose 10 MG; Start 08/12/18 at 21:00 Lorazepam (Ativan) 1 mg Q6H PRN IV ANXIETY Last administered on 08/24/18 10:08; Admin Dose 1 MG; Start 08/12/18 at 22:30 Heparin Sodium (Porcine) (Heparin (1000 Units/ml)) 4,000 unit AFTER DIALYSIS CATHETER Last administered on 08/23/18 17:37; Admin Dose 2,300 UNIT; Start 08/13/18 at 16:30 Senna (Senokot) 2 tab BID PRN PO CONSTIPATION Last administered on 08/22/18 23:28; Admin Dose 2 TAB; Start 08/14/18 at 12:00 Albuterol/ Ipratropium (Duoneb) 3 ml Q6H RESP THERAPY PRN HHN SHORTNESS OF BREATH Last administered on 08/20/18 03:20; Admin Dose 3 ML; Start 08/15/18 at 11:00 Ondansetron HCl (Zofran Inj) 4 mg Q6H PRN IV NAUSEA AND/OR VOMITING Last administered on 08/22/18 10:46; Admin Dose 4 MG; Start 08/15/18 at 11:00 Epoetin Bam-epbx (Retacrit (Esrd)) 4,000 unit TuThSa@1700 SC Last administered on 08/21/18 20:27; Admin Dose 4,000 UNIT; Start 08/17/18 at 17:00 Multivit/Ca Carb/ B Cmplx/FA/Prenat (Addie-Mikayla) 1 tab DAILY PO Last administered on 08/24/18 08:28; Admin Dose 1 TAB; Start 08/16/18 at 12:00 Hydrocortisone (Hydrocortisone 0.5% Cr) 1 applic BID PRN TOP ITCHING Last administered on 08/20/18 20:52; Admin Dose 1 APPLIC; Start 08/16/18 at 22:30 Zolpidem Tartrate (Ambien) 5 mg HS PRN PO INSOMNIA Last administered on 08/23/18 21:13; Admin Dose 5 MG; Start 08/17/18 at 21:30 Clotrimazole (Clotrim 1% Vaginal Cr) 1 applic BID VAG Last administered on 08/24/18 08:50; Admin Dose 1 APPLIC; Start 08/19/18 at 21:00; Stop 08/26/18 at 20:59 Bumetanide (Bumex) 2 mg BID DIURETICS PO Last administered on 08/24/18 06:17; Admin Dose 2 MG; Start 08/19/18 at 18:00 Hydralazine HCl (Apresoline) 50 mg Q8 PO Last administered on 08/24/18 06:17; Admin Dose 50 MG; Start 08/20/18 at 14:00 Albuterol (Proventil 0.083% (Neb)) 1.25 mg Q2H RESP THERAPY PRN HHN shortness of breath; Start 08/21/18 at 11:00 Clonidine (Catapres) 0.1 mg Q6H PRN PO ELEVATED SYSTOLIC BP Last administered on 08/22/18 23:41; Admin Dose 0.1 MG; Start 08/21/18 at 23:00 Enoxaparin Sodium (Lovenox) 100 mg Q24H SC ; Start 08/23/18 at 21:00 Insulin Aspart (Novolog Insulin Pen) 8 unit WITH MEALS SC Last administered on 08/24/18 12:09; Admin Dose 8 UNIT; Start 08/24/18 at 08:00 Insulin Glargine (Lantus) 24 units DAILY@0800 SC Last administered on 08/24/18at 08:43; Admin Dose 24 UNITS; Start 08/24/18 at 08:00 Menthol/Methyl Salicylate (Sahil Carrillo) 1 applic TID TOP Last administered on 08/24 08:27; Admin Dose 1 APPLIC; Start 5/21/19 at 09:00 CHERYL TRINIDAD NP August 24, 2018 12:48
[2018-08-24] MEDS ORDERED: DICL100G33 TP (14:18)
[2018-08-24] MEDS ORDERED: ALBU18HF INHALATION (14:18)
[2018-08-24] MEDS ORDERED: GABA300C16 PO (14:18)
[2018-08-24] MEDS ORDERED: APIX5TAB PO (14:18)
[2018-08-24] MEDS ORDERED: PANT40TA4 PO (14:18)
[2018-08-24] MEDS ORDERED: HYDR-3672 PO (14:18)
[2018-08-24] MEDS ORDERED: Insulin Glargine SC (14:18)
[2018-08-24] MEDS ORDERED: NOVO3I SC (14:18)
[2018-08-24] MEDS ORDERED: BUSP10TA2 PO (14:18)
[2018-08-24] MEDS ORDERED: HYDR-3601 PO (14:18)
[2018-08-24] MEDS ORDERED: ISOS10TA2 PO (14:18)
[2018-08-24] MEDS ORDERED: SVL800C PO (14:18)
[2018-08-24] MEDS ORDERED: DILT120C79 PO (14:18)
[2018-08-24] MEDS ORDERED: BUME1TAB PO (14:18)
[2018-08-24] MEDS ORDERED: NEPH PO (14:18)
[2018-08-24] MEDS ORDERED: METO-448 PO (14:18)
--- NOTE | 2018-08-24 14:30 | CONS ---
Consult Date/Type/Reason Admit Date/Time August 09, 2018 at 17:42 Initial Consult Date 08/10/18 Requesting Provider: KIRSTIN SPANN MD Date/Time of Note DATE: 08/24/18 TIME: 14:28 Subjective NO acute events - pt stable - in good fluid status - REFUSED [facility] - says needs to talk to Dr. Gomez - will defer to DR. William and Dr. Gomez now. ROS: No fever, no chills, no nausea, no vomiting, no diarrhea/constipation No recent weight changes No chest pain, no PND, no orthopnea - chronic SOB No dizziness, blurred vision No thirst, no heat or cold intolerance Objective Vitals Vital Signs Date Temp Pulse Resp B/P (MAP) Pulse Ox O2 O2 Flow FiO2 Time Delivery Rate 08/24/18 79 12:01 08/24/18 97.6 22 100/54 96 Room Air 11:37 (69) 08/23/18 2.0 21:00 08/22/18 21 01:07 Intake and Output 08/23/18 08/23/18 08/24/18 1515:00 23:00 07:00 IntakeIntake Total 600 ml 350 ml OutputOutput Total 200 ml 3400 ml BalanceBalance -200 ml -2800 ml 350 ml Exam General: WN/WD/NAD, AOx 3 HEENT: Unicetric/atraumatic/EOMI ( follow commands) NECK: JVD elevated, no thyromegaly Lymph: no lymphadenopathy HEART: regular with no S3, II/ systolic murmur at apex, PMI L LUNGS: Coarse sounds ABD: soft, NT, ND, +BS : Intact Neuro: non focal SKIN: chronic changes EXT: trace edema Results/Medications Result Diagram: 08/24/1852008/24/18520 Results 24 hrs Laboratory Tests Test 08/23/18 17:36 08/23/18 20:59 08/23/18 22:40 08/24/18 02:25 Bedside Glucose 210 419 *H 275 H 86 Test 08/24/18 05:21 08/24/18 08:22 08/24/18 11:47 White Blood Count 7.0 # Red Blood Count 3.13 L Hemoglobin 10.7 L Hematocrit 34.0 L Mean Corpuscular 108.6 H Volume Mean Corpuscular 34.2 H Hemoglobin Mean Corpuscular 31.5 L Hemoglobin Concent Red Cell 17.6 H Distribution Width Platelet Count 186 Mean Platelet Volume 11.5 H Immature 0.300 Granulocytes % Neutrophils % 78.3 H Lymphocytes % 11.4 L Monocytes % 7.3 Eosinophils % 2.3 Basophils % 0.4 Nucleated Red Blood 0.0 Cells % Immature 0.020 Granulocytes # Neutrophils # 5.5 Lymphocytes # 0.8 Monocytes # 0.5 Eosinophils # 0.2 Basophils # 0.0 Nucleated Red Blood 0.0 Cells # Prothrombin Time 13.6 Prothrombin Time 1.1 Ratio INR International 1.03 Normalized Ratio Sodium Level 138 Potassium Level 4.7 Chloride Level 97 Carbon Dioxide Level 27 Anion Gap 14 H Blood Urea Nitrogen 47 #H Creatinine 5.19 #H Est Glomerular 8 L Filtrat Rate mL/min Glucose Level 89 Calcium Level 8.9 Bedside Glucose 106 199 Home Meds Active Scripts Multivit/Ca Carb/B Cmplx/Fa* (Addie-Mikayla*) 1 Tab Tab, 1 TAB PO DAILY for 30 Days, TAB Prov:ANTHONY DUPREE 08/24/18 [Insulin Glargine] 100 UNITS/ML SOLN No Conflict Check, 24 UNITS SC DAILY@0800 for 30 Days Prov:ANTHONY DUPREE 08/24/18 Insulin Aspart* (Novolog Insulin Pen*) 100 Unit/Ml Soln, 8 UNIT SC WITH MEALS for 30 Days Prov:ANTHONY DUPREE 08/24/18 Bumetanide* (Bumetanide*) 1 Mg Tablet, 2 MG PO BID DIURETICS for 30 Days, TAB Prov:ANTHONY DUPREE 08/24/18 Diclofenac Sodium (Diclofenac Sodium) 100 Gm Gel..gram., 2 GM TP BID, #1 Prov:ANTHONY DUPREE 08/24/18 Hydrocodone Bit-Acetaminophen (Hydrocodone Bit-APAP) 5-325MG Tablet, 1 TAB PO Q4H PRN for MODERATE PAIN LEVEL 4-6, #20 TAB Prov:ANTHONY DUPREE 08/24/18 Isosorbide Dinitrate* (Isordil*) 10 Mg Tablet, 10 MG PO TID for 30 Days, TAB Prov:ANTHONY DUPREE 08/24/18 Hydralazine Hcl* (Apresoline*) 50 Mg Tab, 50 MG PO Q8 for 30 Days, TAB Prov:JOONANTHONY 08/24/18 Albuterol Sulfate* (Ventolin HFA*) 18 Gm Hfa.aer.ad, 2 PUFF INHALATION Q6H, #1 INHALER Prov:ANTHONY DUPREE 08/24/18 Metoprolol Tartrate* (Lopressor*) 25 Mg Tab, 25 MG PO BID, #60 TAB Prov:ANTHONY DUPREE 08/24/18 Pantoprazole* (Pantoprazole*) 40 Mg Tablet.dr, 40 MG PO AC BREAKFAST for 30 Days, TAB Prov:ANTHONY DUPREE 08/24/18 Diltiazem Hcl* (Diltiazem XT) 120 Mg Capsule.sa, 120 MG PO DAILY, #30 CAP Prov:ANTHONY DUPREE 08/24/18 Buspirone Hcl* (Buspirone Hcl*) 10 Mg Tab, 10 MG PO TID for 30 Days, TAB Prov:JOONANTHONY 08/24/18 Gabapentin* (Gabapentin*) 300 Mg Capsule, 300 MG PO TID, #90 CAP Prov:[facility] 08/24/18 Sevelamer Hcl* (Renagel*) 800 Mg Tablet, 1600 MG PO WITH MEALS for 30 Days, TAB Prov:[facility] 08/24/18 Apixaban* (Eliquis*) 5 Mg Tablet, 5 MG PO BID for 30 Days, TAB [facility] 08/24/18 Reported Medications Amlodipine Besylate* (Norvasc*) 5 Mg Tablet, 5 MG PO DAILY, TAB 08/09/18 Furosemide* (Furosemide*) 20 Mg Tablet, 20 MG PO DAILY, #60 TAB 08/09/18 Methocarbamol* (Methocarbamol*) 500 Mg Tablet, 500 MG PO DAILY, TAB 08/09/18 Medications Current Medications Buspirone HCl (Buspar) 10 mg TID PO Last administered on 08/24/18at 13:14; Admin Dose 10 MG; Start 08/10/18 at 09:00 Diltiazem HCl (Cardizem Cd) 120 mg DAILY PO Last administered on 08/20/18 10:20; Admin Dose 120 MG; Start 08/10/18 at 09:00 Gabapentin (Neurontin) 300 mg TID PO Last administered on 08/24/18 13:12; Admin Dose 300 MG; Start 08/10/18 at 09:00 Metoprolol Tartrate (Lopressor) 25 mg BID PO Last administered on 08/24/18 08:29; Admin Dose 25 MG; Start 08/10/18 at 09:00 Pantoprazole (Protonix Tab) 40 mg AC BREAKFAST PO Last administered on 08/24/18 06:17; Admin Dose 40 MG; Start 08/10/18 at 07:00 Sevelamer Carbonate (Renvela) 1.6 gm WITH MEALS PO Last administered on 08/05 11:49; Admin Dose 1.6 GM; Start 08/10/18 at 08:00 Apixaban (Eliquis) 5 mg BID PO Last administered on 08/23/18 08:54; Admin Dose 5 MG; Start 08/10/18 at 09:00; Status Hold Acetaminophen (Tylenol Tab) 650 mg Q6H PRN PO MILD PAIN(1-3)OR ELEVATED TEMP Last administered on 08/24/18 10:09; Admin Dose 650 MG; Start 08/09/18 at 23:30 Morphine Sulfate (morphine) 2 mg Q4H PRN IV SEVERE PAIN LEVEL 7-10 Last administered on 08/24/18 13:38; Admin Dose 2 MG; Start 08/09/18 at 23:30 Guaifenesin/ Codeine Phosphate (Robitussin Ac Liquid Cup) 10 ml Q4H PRN PO COUGH Last administered on 08/23/18 23:42; Admin Dose 10 ML; Start 08/09/18 at 23:30 Miscellaneous Information 1 ea NOTE XX ; Start 08/10/18 at 05:30 Glucose (Glutose) 15 gm Q15M PRN PO DECREASED GLUCOSE; Start 08/10/18 at 05:30 Glucose (Glutose) 22.5 gm Q15M PRN PO DECREASED GLUCOSE; Start 08/10/18 at 05:30 Dextrose (D50w Syringe) 25 ml Q15M PRN IV DECREASED GLUCOSE; Start 08/10/18 at 05:30 Dextrose (D50w Syringe) 50 ml Q15M PRN IV DECREASED GLUCOSE Last administered on 08/13/18 21:34; Admin Dose 50 ML; Start 08/10/18 at 05:30 Glucagon (Glucagen) 1 mg Q15M PRN IM DECREASED GLUCOSE; Start 08/10/18 at 05:30 Glucose (Glutose) 15 gm Q15M PRN BUCCAL DECREASED GLUCOSE Last administered on 08/14/18 19:18; Admin Dose 15 GM; Start 08/10/18 at 05:30 Insulin Aspart (Novolog Insulin Pen) NOVOLOG *MILD* ALGORI... AC MEALS AND BEDTIME SC Last administered on 08/24/18 12:10; Admin Dose 2 UNIT; Start 08/10/18 at 08:00 Diagnostic Test (Pha) (Accu-Chek) 1 ea 02 XX Last administered on 08/24/18 02:00; Admin Dose 1 EA; Start 08/11/18 at 02:00 Docusate Sodium (Colace) 100 mg DAILY PO Last administered on 08/24/18 08:29; Admin Dose 100 MG; Start 08/12/18 at 09:00 Tramadol HCl (Ultram) 50 mg Q12H PRN PO PAIN; Start 08/11/18 at 13:30 Diclofenac Sodium (Voltaren 1% Gel) 2 gm BID TP Last administered on 08/24/18 08:27; Admin Dose 2 GM; Start 08/11/18 at 21:00 Acetaminophen/ Hydrocodone Bitart ([place] (5/325)) 1 tab Q4H PRN PO MODERATE PAIN LEVEL 4-6 Last administered on 08/24/18 08:55; Admin Dose 1 TAB; Start 08/12/18 at 15:00 Isosorbide Dinitrate (Isordil) 10 mg TID PO Last administered on 08/22/18 20:16; Admin Dose 10 MG; Start 08/12/18 at 21:00 Lorazepam (Ativan) 1 mg Q6H PRN IV ANXIETY Last administered on 08/24/18 10:08; Admin Dose 1 MG; Start 08/12/18 at 22:30 Heparin Sodium (Porcine) (Heparin (1000 Units/ml)) 4,000 unit AFTER DIALYSIS CATHETER Last administered on 08/23/18 17:37; Admin Dose 2,300 UNIT; Start 08/13/18 at 16:30 Senna (Senokot) 2 tab BID PRN PO CONSTIPATION Last administered on 08/22/18 23:28; Admin Dose 2 TAB; Start 08/14/18 at 12:00 Albuterol/ Ipratropium (Duoneb) 3 ml Q6H RESP THERAPY PRN HHN SHORTNESS OF BREATH Last administered on 08/20/18 03:20; Admin Dose 3 ML; Start 08/15/18 at 11:00 Ondansetron HCl (Zofran Inj) 4 mg Q6H PRN IV NAUSEA AND/OR VOMITING Last administered on 08/22/18 10:46; Admin Dose 4 MG; Start 08/15/18 at 11:00 Epoetin Bam-epbx (Retacrit (Esrd)) 4,000 unit TuThSa@1700 SC Last administered on 08/21/18 20:27; Admin Dose 4,000 UNIT; Start 08/17/18 at 17:00 Multivit/Ca Carb/ B Cmplx/FA/Prenat (Addie-Mikayla) 1 tab DAILY PO Last administered on 08/24/18 08:28; Admin Dose 1 TAB; Start 08/16/18 at 12:00 Hydrocortisone (Hydrocortisone 0.5% Cr) 1 applic BID PRN TOP ITCHING Last administered on 08/20/18 20:52; Admin Dose 1 APPLIC; Start 08/16/18 at 22:30 Zolpidem Tartrate (Ambien) 5 mg HS PRN PO INSOMNIA Last administered on 08/23/18 21:13; Admin Dose 5 MG; Start 08/17/18 at 21:30 Clotrimazole (Clotrim 1% Vaginal Cr) 1 applic BID VAG Last administered on 08/24/18 08:50; Admin Dose 1 APPLIC; Start 08/19/18 at 21:00; Stop 08/26/18 at 20:59 Bumetanide (Bumex) 2 mg BID DIURETICS PO Last administered on 08/24/18 06:17; Admin Dose 2 MG; Start 08/19/18 at 18:00 Hydralazine HCl (Apresoline) 50 mg Q8 PO Last administered on 08/24/18 06:17; Admin Dose 50 MG; Start 08/20/18 at 14:00 Albuterol (Proventil 0.083% (Neb)) 1.25 mg Q2H RESP THERAPY PRN HHN shortness of breath; Start 08/21/18 at 11:00 Clonidine (Catapres) 0.1 mg Q6H PRN PO ELEVATED SYSTOLIC BP Last administered on 08/22/18at 23:41; Admin Dose 0.1 MG; Start 08/21/18 at 23:00 Enoxaparin Sodium (Lovenox) 100 mg Q24H SC ; Start 08/23/18 at 21:00 Insulin Aspart (Novolog Insulin Pen) 8 unit WITH MEALS SC Last administered on 08/24/18at 12:09; Admin Dose 8 UNIT; Start 08/24/18 at 08:00 Insulin Glargine (Lantus) 24 units DAILY@0800 SC Last administered on 08/24/18at 08:43; Admin Dose 24 UNITS; Start 08/24/18 at 08:00 Menthol/Methyl Salicylate (Sahil Carrillo) 1 applic TID TOP Last administered on 08/24/18at 13:15; Admin Dose 1 APPLIC; Start 08/24/18 at 09:00 Assessment/Plan Hospital Course (Demo Recall) 1. Positive troponin, assess significance in the setting of renal failure, likely type 2 demand infarct in the setting of pneumoni - AGREED TO Stress test - F3&%, reversible ischemia- will discuss [facility] with DR. William. REFUSED [facility] - defer to Dr. William. 2. Atrial fibrillation, rate controlled - con't to follow. No tachy-prasad episodes noted. Better now. Controlled. Treated. NOW N SINUS with [place]. NOw sinus. 3. Abnormal electrocardiogram, assess for true acute coronary syndrome. NO CP - refused stress test. 4. Hypertension, well controlled - HD to follow. Defer to renal team. Better. Con;t med rx. Traeted. Con't Rx. TREATED. 5. End-stage renal disease, on hemodialysi s - pt asking for "more HD" - will defer to renal team now. Renal team fallows. 6. Nausea- better now - in good satus now. NO new episodes now - tolerated food. 7. Left lower lobe pneumonia - on anti-Bx, con't med rx. NO fevers now. 8. Peripheral arterial disease with nonhealing lower extremity ulcer - con't skin care. MARY JO AGUIRRE MD August 24, 2018 14:30
[2018-08-24] MEDS: GUAIFENESIN/CODEINE 5ML CUP PO PRN (16:20)
[2018-08-24] MEDS: EPOETIN ALFA-EPBX (ESRD) 4,000 UNIT/ML VIAL SC SCH (17:32)
--- NOTE | 2018-08-24 20:47 | DS ---
Date/Time of Note Date/Time of Note DATE: 08/24/18 TIME: 20:43 Discharge Summary Admission/Discharge Info Admit Date/Time August 09, 2018 at 17:42 Discharge Date/Time August 24, 2018 at 17:53 Patient Condition: Stable Hx of Present Illness The patient is a 58-year-old female with history of end-stage renal disease, on hemodialysis on Thursday and Thursday, peripheral vascular disease, hypertension, asthma, anxiety, peripheral neuropathy, and diabetic right foot ulcer. Patient was seen in [facility] and complained of fever chills and nausea and patient was sent to the emergency room. Patient underwent chest x-ray which reveal left lower lobe infiltrate. Patient stated that she was hospitalized in June for pneumonia and had chest tube placement at that time with subsequent removal. Patient denies any cough, denies chest pain denies shortness of breath. Patient is admitted to telemetry floor for further evaluation and management. Hospital Course -Healthcare associated pneumonia, completed treatment with abx.Dr. Lucas is following in infection disease consultation. -Hyperkalemia, resolved. -Dialysis dependent end-stage renal disease. Dr. Spicer is following in nephrology consultation. -Elevated troponin, abnormal stress test. Pt refused left heart catheterization. Dr. William is following in cardiology consultation. -Atrial fibrillation, continue metoprolol and Eliquis. -Anemia of chronic disease, continue Epogen. -Diabetes mellitus type 2 with hemoglobin A1c of 6.5, continue Lantus and NovoLog -Peripheral vascular disease history of left lower extremity bypass surgery. -Right foot ulcer. Dr. Pineda is following and podiatry consultation. -Bilateral lower extremities edema, continue to remove fluids with hemodialysis, continue Bumex, fluid restriction. Plan of care discussed with Dr. Cordero. Home Meds Active Scripts Multivit/Ca Carb/B Cmplx/Fa* (Addie-Mikayla*) 1 Tab Tab, 1 TAB PO DAILY for 30 Days, TAB Prov:ANTHONY DUPREE 08/24/18 [Insulin Glargine] 100 UNITS/ML SOLN No Conflict Check, 24 UNITS SC DAILY@0800 for 30 Days Prov:ANTHONY DUPREE 08/24/18 Insulin Aspart* (Novolog Insulin Pen*) 100 Unit/Ml Soln, 8 UNIT SC WITH MEALS for 30 Days Prov:ANTHONY DUPREE 08/24/18 Bumetanide* (Bumetanide*) 1 Mg Tablet, 2 MG PO BID DIURETICS for 30 Days, TAB Prov:ANTHONY DUPREE 08/24/18 Diclofenac Sodium (Diclofenac Sodium) 100 Gm Gel..gram., 2 GM TP BID, #1 Prov:ANTHONY DUPREE 08/24/18 Hydrocodone Bit-Acetaminophen (Hydrocodone Bit-APAP) 5-325MG Tablet, 1 TAB PO Q4H PRN for MODERATE PAIN LEVEL 4-6, #20 TAB Prov:ANTHONY DUPREE 08/24/18 Isosorbide Dinitrate* (Isordil*) 10 Mg Tablet, 10 MG PO TID for 30 Days, TAB Prov:ANTHONY DUPREE 08/24/18 Hydralazine Hcl* (Apresoline*) 50 Mg Tab, 50 MG PO Q8 for 30 Days, TAB Prov:ANTHONY DUPREE 08/24/18 Albuterol Sulfate* (Ventolin HFA*) 18 Gm Hfa.aer.ad, 2 PUFF INHALATION Q6H, #1 INHALER Prov:ANTHONY DUPREE 08/24/18 Metoprolol Tartrate* (Lopressor*) 25 Mg Tab, 25 MG PO BID, #60 TAB Prov:ANTHONY DUPREE 08/24/18 Pantoprazole* (Pantoprazole*) 40 Mg Tablet.dr, 40 MG PO AC BREAKFAST for 30 Days, TAB Prov:ANTHONY DUPREE 08/24/18 Diltiazem Hcl* (Diltiazem XT) 120 Mg Capsule.sa, 120 MG PO DAILY, #30 CAP Prov:ANTHONY DUPREE 08/24/18 Buspirone Hcl* (Buspirone Hcl*) 10 Mg Tab, 10 MG PO TID for 30 Days, TAB Prov:ANTHONY DUPREE 08/24/18 Gabapentin* (Gabapentin*) 300 Mg Capsule, 300 MG PO TID, #90 CAP Prov:ANTHONY DUPREE 08/24/18 Sevelamer Hcl* (Renagel*) 800 Mg Tablet, 1600 MG PO WITH MEALS for 30 Days, TAB Prov:ANTHONY DUPREE 08/24/18 Apixaban* (Eliquis*) 5 Mg Tablet, 5 MG PO BID for 30 Days, TAB Prov:ANTHONY DUPREE 08/24/18 Discontinued Reported Medications Amlodipine Besylate* (Norvasc*) 5 Mg Tablet, 5 MG PO DAILY, TAB 08/09/18 Furosemide* (Furosemide*) 20 Mg Tablet, 20 MG PO DAILY, #60 TAB 08/09/18 Methocarbamol* (Methocarbamol*) 500 Mg Tablet, 500 MG PO DAILY, TAB 08/09/18 Follow-up Plan Discharge to transitional care facility with home health services for wound care if patient refused cardiac cath, follow-up with Dr. 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 Primary Care Provider El Josue Longo [facility] Time spent on discharge: > 30 minutes Pending Labs Laboratory Tests Test 08/23/18 20:59 08/23/18 22:40 08/24/18 02:25 08/24/18 05:21 Bedside 419 275 86 Glucose mg/dL (70-220) mg/dL (70-220) mg/dL (70-220) White Blood 7.0 Count 10^3/ul (4.8-1 0.8) Red Blood 3.13 Count 10^6/ul (4.20- 5.40) Hemoglobin 10.7 g/dl (12.0-16. 0) Hematocrit 34.0 % (37.0-47.0) Mean 108.6 Corpuscular fl (82.0-101.0 Volume ) Mean 34.2 Corpuscular pg (29.0-33.0) Hemoglobin Mean 31.5 Corpuscular g/dl (32.0-37. Hemoglobin Conc 0) ent Red Cell 17.6 Distribution % (11.5-14.5) Width Platelet Count 186 10^3/UL (140-4 15) Mean Platelet 11.5 Volume fl (7.4-10.4) Immature 0.300 Granulocytes % % (0.001-0.429 ) Neutrophils % 78.3 % (39.0-77.0) Lymphocytes % 11.4 % (15.0-51.0) Monocytes % 7.3 % (0.0-11.0) Eosinophils % 2.3 % (0.0-7.0) Basophils % 0.4 % (0.0-2.0) Nucleated Red 0.0 Blood Cells % /100WBC (0.0-0 .0) Immature 0.020 Granulocytes # 10^3/ul (0.0-0 .031) Neutrophils # 5.5 10^3/ul (1.6-7 .5) Lymphocytes # 0.8 10^3/ul (0.8-2 .9) Monocytes # 0.5 10^3/ul (0.3-0 .9) Eosinophils # 0.2 10^3/ul (0.0-0 .5) Basophils # 0.0 10^3/ul (0.0-0 .1) Nucleated Red 0.0 Blood Cells # 10^3/ul (0.0-0 .0) Prothrombin 13.6 Time Sec (11.9-14.9 ) Prothrombin 1.1 Time Ratio INR 1.03 International Normalized Rati o Sodium Level 138 mmol/L (135-14 4) Potassium 4.7 Level mmol/L (3.5-5. 1) Chloride Level 97 mmol/L (97-110 ) Carbon Dioxide 27 Level mmol/L (21-31) Anion Gap 14 (5-13) Blood Urea 47 Nitrogen mg/dl (7-20) Creatinine 5.19 mg/dl (0.44-1. 00) Est Glomerular 8 mL/min (>60) Filtrat Rate mL/min Glucose Level 89 mg/dl (70-220) Calcium Level 8.9 mg/dl (8.4-10. 2) Test 08/24/18 08:22 08/24/18 11:47 08/24/18 17:27 Bedside 106 199 131 Glucose mg/dL (70-220) mg/dL (70-220) mg/dL (70-220) ANTHONY DUPREE August 24, 2018 20:47
[2018-08-24] MEDS ORDERED: ENOXAPARIN 80 MG/0.8 ML SYG SC SCH (21:00)
== END 2018-08-24 17:53 | disposition home health service (06) | DRG 193 ==
LOC: E/R 14:31 → 6WM 17:42
PROVIDERS: ADMIT Internal Medicine; ATTEND Internal Medicine
PROC: 5A1D70Z Performance of Urinary Filtration, Intermittent, Less than 6 Hours Per Day (ICD-10-PCS; principal; 2018-08-10)
DX: J18.9 Pneumonia, unspecified organism (principal); N18.6 End stage renal disease; I50.33 Acute on chronic diastolic (congestive) heart failure; I13.2 Hypertensive heart and chronic kidney disease with heart failure and with stage 5 chronic kidney disease, or end stage renal disease; E11.621 Type 2 diabetes mellitus with foot ulcer; E11.40 Type 2 diabetes mellitus with diabetic neuropathy, unspecified; E11.22 Type 2 diabetes mellitus with diabetic chronic kidney disease; E87.5 Hyperkalemia; E66.01 Morbid (severe) obesity due to excess calories; F41.9 Anxiety disorder, unspecified; I25.10 Atherosclerotic heart disease of native coronary artery without angina pectoris; D63.1 Anemia in chronic kidney disease; I48.91 Unspecified atrial fibrillation; L97.519 Non-pressure chronic ulcer of other part of right foot with unspecified severity; E11.42 Type 2 diabetes mellitus with diabetic polyneuropathy; E11.21 Type 2 diabetes mellitus with diabetic nephropathy; E11.319 Type 2 diabetes mellitus with unspecified diabetic retinopathy without macular edema; E11.51 Type 2 diabetes mellitus with diabetic peripheral angiopathy without gangrene; R79.89 Other specified abnormal findings of blood chemistry; Z68.39 Body mass index [BMI] 39.0-39.9, adult; J44.9 Chronic obstructive pulmonary disease, unspecified; Z89.421 Acquired absence of other right toe(s); Z99.2 Dependence on renal dialysis
CPT/HCPCS: 36415; 71045; 71250; 73630; 78452; 80048; 80053; 80061; 80202; 82550; 82553; 82947; 82962; 83036; 83605; 83735; 84100; 84145; 84484; 85018; 85025; 85610; 85730; 87070; 87206; 87275; 87276; 87279; 87280; 87340; 87400; 90935; 93005; 93017; 93306; 93931; 93970; 94640; 94664; 96374; 96375; 97110; 97116; 97161; A9500; A9505; J0692; J1644; J1650; J1815; J2060; J2270; J2405; J2785; J3370; Q5105